=== PATIENT | female | born 1940 | race Caucasian/White ===

== ENCOUNTER 2018-05-29 12:38 | Inpatient (IN) ==
[2018-05-29] MEDS ORDERED: Labetalol HCl Inj 100 MG/20 ML Vial ONE (15:18)
[2018-05-29] MEDS ORDERED: Bisacodyl 10 MG Supp RECTAL PRN (15:36)
--- NOTE | 2018-05-29 15:39 | P.HPCC ---
<D[facility] Palacios - Last Filed: 05/29/18 16:36> History of Present Illness Primary Care Physician: Luna Brown Inpatient Certification: I certify that the inpatient services were ordered in accordance with Medicare regulations governing the order. This includes certification that hospital inpatient services are reasonable and necessary and in the case of services not specified as inpatient-only under 42 CFR 419.22(n), that they are appropriately provided as inpatient services in accordance to with the 2-midnight benchmark under 43 CFR 412.3(e) Medications and Allergies Allergies Allergy/AdvReac Type Severity Reaction Status Date / Time No Known Allergies Allergy Verified 05/29/18 15:32 Home Medications Medication Instructions Recorded Confirmed Type amlodipine 5 mg PO DAILY 05/29/18 05/29/18 History clopidogrel 75 mg PO DAILY 05/29/18 05/29/18 History lisinopril 40 mg PO DAILY 05/29/18 05/29/18 History pravastatin 40 mg PO DAILY 05/29/18 05/29/18 History Active Medications: Active Medications Acetaminophen (Tylenol) 650 mg PO Q6H PRN PRN Reason: PAIN 1-10 AND/OR FEVER >101F Al Hydroxide/Mg Hydroxide (Milk Of Magnesia Liq) 30 ml PO Q12H PRN PRN Reason: Mild Constipation Albuterol (Duoneb Neb (Prn)) 1 ampul NEB Q2HR NEB PRN PRN Reason: WHEEZING Bisacodyl (Dulcolax Supp) 10 mg RECTAL DAILY PRN PRN Reason: SEVERE CONSITIPATION Chlorhexidine Gluconate (Chlorhexidine 2% Cloth) 3 pack TOPICAL DAILY@0400 ALEXIS Stop: 06/04/18 03:59 Chlorhexidine Gluconate (Chlorhexidine 2% Cloth) 3 pack TOPICAL DAILY@0400 PRN PRN Reason: Extra cloth needed Stop: 06/04/18 03:59 Famotidine (Pepcid Pf Inj) 20 mg IV.PUSH Q12HR ALEXIS Sodium Chloride (Ns Inj) 1,000 mls @ 84 mls/hr IV.CONT .[id number] ALEXIS Nicardipine HCl 25 mg/ Sodium (Chloride) 250 mls @ 50 mls/hr IV.CONT TITRATE PRN; Protocol PRN Reason: Per Protocol Lactulose (Lactulose Liq) 30 ml PO DAILY PRN PRN Reason: SEVERE CONSITIPATION Senna/Docusate Sodium (Kate-Colace) 1 tab PO BID [facility] Sennosides (Senokot) 17.2 mg PO Q12H PRN PRN Reason: Moderate Constipation Sodium Chloride (Ns Flush) 2 ml IV.FLUSH PRN PRN PRN Reason: FLUSH AFTER USING IV ACCESS Sodium Chloride (Ns Flush) 2 ml IV.FLUSH BID ALEXIS Results - Imaging Impressions Chest X-Ray 05/29/18 15:37 CONCLUSION: Chronic interstitial changes. No acute abnormality. Exam Vital signs: Intake & Output 05/28/18 05/29/18 05/29/18 18:59 06:59 18:59 Weight 60.5 kg Other: Weight On Admission 60.5 kg Caprini VTE Risk Assessment Caprini Risk Assessment Model: Point Value = 1 Point Value = 2 Point Value = 3 Point Value = 5 Age 41-60 Minor surgery BMI > 25 kg/m2 Swollen legs Varicose veins or History of unexplained or recurrent spontaneous Oral contraceptives or hormone replacement Sepsis (< 1 month) Serious lung disease, including pneumonia (< 1 month) Abnormal pulmonary function Acute myocardial infarction Congestive heart failure (< 1 month) History of inflammatory bowel disease Medical patient at bed rest Age 61-74 Arthroscopic surgery Major open surgery (> 45 min) Laparoscopic surgery (> 45 min) Malignancy Confined to bed (> 72 hours) Immobilizing plaster cast Central venous access Age >= 75 History of VTE Family history of VTE Factor V Leiden Prothrombin [id number] Lupus anticoagulant Anticardiolipin antibodies Elevated serum homocysteine Heparin-induced thrombocytopenia Other congenital or acquired thrombophilia Stroke (< 1 month) Elective arthroplasty Hip, pelvis, or leg fracture Acute spinal cord injury (< 1 month) Prophylaxis Regimen: Total Risk Factor Score Risk Level Prophylaxis Regimen 0-1 Low Early ambulation 2 Moderate Order ONE of the following: *Sequential Compression Device (SCD) *Heparin 5000 units SQ BID 3-4 Higher Order ONE of the following medications: *Heparin 5000 units SQ TID *Enoxaparin/Lovenox 40 mg SQ daily (WT < 150 kg, CrCl > 30 mL/min) *Enoxaparin/Lovenox 30 mg SQ daily (WT < 150 kg, CrCl > 10-29 mL/min) *Enoxaparin/Lovenox 30 mg SQ BID (WT < 150 kg, CrCl > 30 mL/min) AND/OR *Sequential Compression Device (SCD) 5 or more Highest Order ONE of the following medications: *Heparin 5000 units SQ TID (Preferred with Epidurals) *Enoxaparin/Lovenox 40 mg SQ daily (WT < 150 kg, CrCl > 30 mL/min) *Enoxaparin/Lovenox 30 mg SQ daily (WT < 150 kg, CrCl > 10-29 mL/min) *Enoxaparin/Lovenox 30 mg SQ BID (WT < 150 kg, CrCl > 30 mL/min) AND *Sequential Compression Device (SCD) <Jairo Saabsreekanth Eliseo - Last Filed: 05/29/18 18:35> History of Present Illness Service: Critical care Primary Care Physician: Luna Brown Chief Complaint: Altered mental status intracranial bleed History of Present Illness: Patient is a 78-year-old female with past medical history significant for hypertension, peripheral arterial disease, history of vascular intervention/ stenting, arthritis who [facility] mostly nonspecific complaints of memory loss and hallucinations for 1 week and worsening tremors of the right arm. Further workup in the emergency department showed subacute intraventricular hemorrhage into the left lateral ventricle and a focal thrombus that may be obstructing foramina of [place]. There was enlargement of the left lateral ventricle compared to the prior MRI. Also trace blood in the occipital horn of left lateral ventricle. With evidence of intraventricular hemorrhage patient was transferred emergently to [facility] for neurosurgery consult. I evaluated the patient after arrival to the ICU. Patient is profoundly hypertensive systolic blood pressure 190-200. IV labetalol 20 mg IV push given followed by Cardene infusion started. On exam patient did not appear to be in distress. No definite focal deficit however patient is oriented only to person. Reviewed CT scan with neurosurgery Dr. Palacios. On his review CT shows 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 hemorrhagic mass at foramen of Bell with asymmetric left sided ventricular dilatation. Stat MRI of the brain with and without contrast ordered. Started on Cardene infusion with target systolic blood pressure less than 140 - Diagnosis (1) Intraventricular hemorrhage, nontraumatic (2) Hypertensive emergency (3) Metabolic encephalopathy (4) Altered mental status (5) History of peripheral arterial disease (6) History of hypertension (7) Cessation of tobacco use in previous 12 months Inpatient Certification: I certify that the inpatient services were ordered in accordance with Medicare regulations governing the order. This includes certification that hospital inpatient services are reasonable and necessary and in the case of services not specified as inpatient-only under 42 CFR 419.22(n), that they are appropriately provided as inpatient services in accordance to with the 2-midnight benchmark under 43 CFR 412.3(e) Estimated Total Length of Stay (Days): 5 Plans for Post Hospital Care: Not yet determined Review of Systems unobtainable due to mental condition [facility] - Surgical History Surgical History: Surgical History (Last Updated 05/29/18 @ 17:03 by Norah Becerra RN) Stented coronary artery - Tobacco History Smoking Status: Former smoker - Alcohol History How Often Do You Have a Drink Containing Alcohol: 4 or more times a week Medications and Allergies Active Medications: Active Medications Albuterol (Duoneb Neb (Prn)) 1 ampul NEB Q2HR NEB PRN PRN Reason: WHEEZING Bisacodyl (Dulcolax Supp) 10 mg RECTAL DAILY PRN PRN Reason: SEVERE CONSITIPATION Chlorhexidine Gluconate (Chlorhexidine 2% Cloth) 3 pack TOPICAL DAILY@0400 ALEXIS Stop: 06/04/18 03:59 Chlorhexidine Gluconate (Chlorhexidine 2% Cloth) 3 pack TOPICAL DAILY@0400 PRN PRN Reason: Extra cloth needed Stop: 06/04/18 03:59 Famotidine (Pepcid Pf Inj) 20 mg IV.PUSH Q12HR ALEXIS Lactulose (Lactulose Liq) 30 ml PO DAILY PRN PRN Reason: SEVERE CONSITIPATION Exam Vital signs: Intake & Output 05/28/18 05/29/18 05/29/18 18:59 06:59 18:59 Weight 60.5 kg Other: Weight On Admission 60.5 kg Narrative: - Constitutional Lying in bed no acute distress - HEENT Exam Normocephalic, atraumatic. ALEXYS - Neck Exam supple, full ROM, trachea midline - Respiratory Exam CTA bilaterally. No wheezes or crackles - Cardiovascular Exam Severe hypertension currently on Cardene infusion. S1-S2 normal no murmurs - Abdominal Exam Soft, normoactive bowel sounds - Extremities Exam Pulses intact, normal capillary refill - Neurological Exam Patient is alert oriented to person only. Moves all 4 extremities equally follows commands no focal deficits. Gait not tested Septic Shock Reassessment Septic shock perfusion: reassessment completed Caprini VTE Risk Assessment Caprini VTE Risk Assessment: Moderate/High Risk (score >= 2) Caprini Risk Assessment Model: Point Value = 1 Point Value = 2 Point Value = 3 Point Value = 5 Age 41-60 Minor surgery BMI > 25 kg/m2 Swollen legs Varicose veins or History of unexplained or recurrent spontaneous Oral contraceptives or hormone replacement Sepsis (< 1 month) Serious lung disease, including pneumonia (< 1 month) Abnormal pulmonary function Acute myocardial infarction Congestive heart failure (< 1 month) History of inflammatory bowel disease Medical patient at bed rest Age 61-74 Arthroscopic surgery Major open surgery (> 45 min) Laparoscopic surgery (> 45 min) Malignancy Confined to bed (> 72 hours) Immobilizing plaster cast Central venous access Age >= 75 History of VTE Family history of VTE Factor V Leiden Prothrombin [id number] Lupus anticoagulant Anticardiolipin antibodies Elevated serum homocysteine Heparin-induced thrombocytopenia Other congenital or acquired thrombophilia Stroke (< 1 month) Elective arthroplasty Hip, pelvis, or leg fracture Acute spinal cord injury (< 1 month) Prophylaxis Regimen: Total Risk Factor Score Risk Level Prophylaxis Regimen 0-1 Low Early ambulation 2 Moderate Order ONE of the following: *Sequential Compression Device (SCD) *Heparin 5000 units SQ BID 3-4 Higher Order ONE of the following medications: *Heparin 5000 units SQ TID *Enoxaparin/Lovenox 40 mg SQ daily (WT < 150 kg, CrCl > 30 mL/min) *Enoxaparin/Lovenox 30 mg SQ daily (WT < 150 kg, CrCl > 10-29 mL/min) *Enoxaparin/Lovenox 30 mg SQ BID (WT < 150 kg, CrCl > 30 mL/min) AND/OR *Sequential Compression Device (SCD) 5 or more Highest Order ONE of the following medications: *Heparin 5000 units SQ TID (Preferred with Epidurals) *Enoxaparin/Lovenox 40 mg SQ daily (WT < 150 kg, CrCl > 30 mL/min) *Enoxaparin/Lovenox 30 mg SQ daily (WT < 150 kg, CrCl > 10-29 mL/min) *Enoxaparin/Lovenox 30 mg SQ BID (WT < 150 kg, CrCl > 30 mL/min) AND *Sequential Compression Device (SCD) Assessment and Plan - Problem List (1) Intraventricular hemorrhage, nontraumatic Code(s): I61.5 - Nontraumatic intracerebral hemorrhage, intraventricular Status: Acute (2) Hypertensive emergency Code(s): I16.1 - Hypertensive emergency Status: Acute (3) Metabolic encephalopathy Code(s): G93.41 - Metabolic encephalopathy Status: Acute (4) Altered mental status Code(s): R41.82 - Altered mental status, unspecified Status: Acute (5) History of peripheral arterial disease Code(s): Z86.79 - Personal history of other diseases of the circulatory system Status: Chronic (6) History of hypertension Code(s): Z86.79 - Personal history of other diseases of the circulatory system Status: Chronic (7) Cessation of tobacco use in previous 12 months Code(s): Z87.891 - Personal history of nicotine dependence Status: Chronic - Assessment and Plan Plan: NEURO: Intraventricular hemorrhage vs. hemorrhagic mass at foramen of Bell with asymmetric left sided ventricular dilatation Acute encephalopathy, likely metabolic -Monitor neuro status closely -Dr. Palacios does not plan any neurosurgical intervention at this time -MRI of the brain with and without contrast -Tight blood pressure control with Cardene and IV labetalol as needed -Keep systolic blood pressure less than 150 -Supplement multivitamin thiamine given daily alcohol use -Watch closely for alcohol withdrawal RESP: Previous tobacco use -DuoNeb every 6 hours scheduled and as needed -SBT when appropriate CV: Hypertensive emergency History of hypertension Peripheral arterial disease -Normal saline IV fluids 84 mL/h -Cardene infusion and, IV labetalol as needed for systolic blood pressure less than 150 -Continue home enalapril and amlodipine, continue statin -Hold Plavix GI: -N.p.o. except meds, swallow eval, IV famotidine : -Monitor renal function closely. ID: -No indication for antibiotics at this time HEME: -Monitor CBC, coags ENDO: -Electrolyte replacement per protocol PROPH: -Bilateral lower extremity SCDs. Avoid chemical DVT prophylaxis until cleared by neurosurgery/famotidine LINES: -Utilize peripheral IVs, central line if needed CC time 38 min Code Status: Full Discussed Condition With: Dr. Palacios
--- NOTE | 2018-05-29 15:40 | P.CONNS ---
History of Present Illness Consult date: 05/29/18 Requesting Physician: Dulce Saab Reason for Consult: [facility] Primary Care Provider: Luna Brown Chief Complaint: altered mental status, [facility] History of Present Illness: I was asked by Dr. Saab to see and evaluate this pleasant 78 yo female who presented to OSH with a 1 week history of feeling not quite right Per , she developed a right sided tremor a month ago and has been havingdifficulty walking with a report of "dragging" her right leg. In addition , he is concerned that her speech has worseed and her memory has become faultie over the past week. Review of Systems All other systems reviewed negative except as stated in HPI Medications and Allergies Allergies Allergy/AdvReac Type Severity Reaction Status Date / Time No Known Allergies Allergy Verified 05/29/18 15:32 Exam Vital signs: Intake & Output 05/28/18 05/29/18 05/29/18 18:59 06:59 18:59 Weight 60.5 kg Other: Weight On Admission 60.5 kg - Constitutional no acute distress, average body habitus, cooperative - Routine HEENT Exam Head: Present: normocephalic, atraumatic Eye: Present: EOMI, PERRL ENT: Present: mucous membranes moist, oropharynx clear, nares patent, external ear normal, TM's clear bilaterally - Routine Neck Exam Present: supple, full ROM, trachea midline - Routine Respiratory Exam Present: CTA bilaterally - Routine Cardiovascular Exam Present: RRR - Routine Abdominal Exam Present: soft, normoactive bowel sounds - Routine Extremities Exam Present: full ROM, pulses intact, normal capillary refill Comments: Moderate involvement of arthritis in her hands/digits - Routine Skin Exam Present: intact, warm, normal turgor - Routine Neurological Exam MS: AAOx1-2 Speech : slow CNII-XII: intact Motor: 5/5, R=L, neg. drift Sensory: +LT,+PP Cerebellum: WNL DTR's 2+ bilateral and symmetric Gait: Not tested - Detailed Neurological Exam: Coma Scale Eye Opening: Spontaneous Verbal Response: Confused Motor Response: Obey commands Sofy Coma Scale Total: 14 - Routine Psychiatric Exam Present: normal affect, normal thought process, cooperative, good insight Results - Diagnostic Findings EKG: report reviewed, image reviewed Chest x-ray: report reviewed, image reviewed Abdominal x-ray: report reviewed, image reviewed CT scan - abdomen: report reviewed, image reviewed CT scan - chest: report reviewed, image reviewed CT scan - pelvic: report reviewed, image reviewed US - abdomen: report reviewed, image reviewed US - kidney: report reviewed, image reviewed US - pelvic: report reviewed, image reviewed Assessment and Plan - Plan 78 yo female with vague constellation of symptoms GCS-[address] shows 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 hemorrhagic mass Will follow with you
--- NOTE | 2018-05-29 16:28 | XR ---
EXAM DATE: 05/29/2018 4:25 PM EST AGE/SEX: 78 years / Female INDICATIONS: Shortness of breath. CLINICAL DATA: This is the patient's initial encounter. Patient reports that signs and symptoms have been present for 1 day and indicates a pain score of 0/10. MEDICAL/SURGICAL HISTORY: None. Breast augmentation. COMPARISON: No prior exams available for comparison. FINDINGS: The examination demonstrates the heart to be normal in size. There are chronic appearing interstitial changes within the pulmonary parenchyma. The lungs are otherwise clear. The visualized bony structur es are intact. Incidental note is made of bilateral calcified implant capsules. Visualized bony struc tures are intact. CONCLUSION: Chronic interstitial changes. No acute abnormality. Electronically signed by: Adam Monterroso MD Board Certified Radiologist 05/29/2018 4:27 PM EST
[2018-05-29] MEDS: niCARdipine Inj 25 MG in Sodium Chlor 0.9% Inj 240 ML IV.CONT PRN ×2 (16:45→20:22)
[2018-05-29] MEDS: Sod Chloride 0.9% Inj 1,000 ML IV.CONT SCH (16:45)
[2018-05-29] MEDS ORDERED: Potassium Chlor 40 mEq Premix 40 MEQ/100 ML PIGGYBACK IV.SIG PRN ×2 (16:53)
[2018-05-29] MEDS ORDERED: Magnesium Sulfate Inj 2 GM in Sodium Chlor 0.9% Inj 96 ML IV.SIG PRN (16:53)
[2018-05-29] MEDS ORDERED: Potassium Phosphate Inj 30 MMOL in Sodium Chlor 0.9% Inj 250 ML IV.SIG PRN (16:53)
[2018-05-29] MEDS ORDERED: Magnesium Oxide 400 MG Tablet PO PRN (16:53)
[2018-05-29] MEDS ORDERED: Sodium Phosphate Inj 30 MMOL in Sodium Chlor 0.9% Inj 250 ML IV.SIG PRN (16:53)
[2018-05-29] MEDS ORDERED: Magnesium Sulfate Inj 4 GM in Sodium Chlor 0.9% Inj 92 ML IV.SIG PRN (16:53)
[2018-05-29] MEDS ORDERED: Potassium Chloride Liq 20 MEQ/15 ML UDC PO PRN ×2 (16:53)
[2018-05-29] MEDS ORDERED: Potassium Phosphate 500 MG Soluble Tablet PO PRN (16:53)
[2018-05-29] MEDS ORDERED: Gadobutrol PF 7.5 MMOL/7.5 ML Vial (for RAD) IV.SIG ONE (17:36)
--- NOTE | 2018-05-29 18:07 | MR ---
EXAM DATE: 05/29/2018 5:38 PM EST AGE/SEX: 78 years / Female INDICATIONS: Hemorrhage. CLINICAL DATA: This is the patient's initial encounter. Patient reports that signs and symptoms have been present for 1 day and indicates a pain score of 0/10. MEDICAL/SURGICAL HISTORY: Hypertension. None. COMPARISON: OUT, CT HEAD W/O CONTRAST, 05/29/2018. . TECHNIQUE: Multiplanar, multisequence examination of the brain was performed without and with 6 ml Ga davist (gadobutrol) contrast as a single exam dose. FINDINGS: Cerebrum: There is a mass in the body of the left lateral ventricle measuring 2.3 x 1.7 cm which is s omewhat heterogeneous in appearance. No definite enhancement. There is hemorrhage in this mass. There is also some minimal layering hemorrhage within the posterior horns of both lateral ventricles sligh tly greater on the left. The left ventricle is dilated with some bulging of the ventricle across midl ine. There is also a low T1 signal mass adjacent to the brainstem on the left in the cerebellopontine angle measuring 1.8 x 1.4 cm. There is mass effect with compression upon the brainstem. No evidence of acute infarction. No extraaxial fluid collections are seen. The pituitary gland and suprasellar cistern are normal in configuration. White Matter: Scattered T2 signal abnormalities are seen in the white matter. Posterior Fossa: The cerebellum and brainstem are intact. The 4th ventricle is midline. The cereb ellar tonsils are normal in position. Diffusion Imaging: No focal areas of restricted diffusion are seen. No evidence of acute infarction . Extracranial: The visualized portions of the orbits and paranasal sinuses are unremarkable. Post Contrast: No abnormal areas of parenchymal or dural enhancement. No evidence of blood-brain ba rrier breakdown. CONCLUSION: 1. There is a 2.3 x 1.7 cm mass within the body of the left lateral ventricle measuring 2.3 x 1.7 cm . The left lateral ventricle is prominent may be related to production of CSF from this mass. 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 This mass may have hemo rrhaged causing the blood layering in the lateral ventricles. 2. There is also a mass in the cerebellopontine angle on the left compressing upon the brainstem camelia suring 1.8 x 1.4 cm. 3. Chronic ischemic small vessel vasculopathy. Electronically signed by: Brock Pineda MD Board Certified Radiologist 05/29/2018 6:06 PM EST
[2018-05-29] MEDS: Multivitamin Inj 10 ML, Thiamine Inj 100 MG, Folic Acid Inj 1 MG in Sodium Chlor 0.9% I... IV.SIG SCH (18:24)
[2018-05-29] MEDS ORDERED: Labetalol HCl Inj 100 MG/20 ML Vial IV.PUSH ONE (18:30)
[2018-05-29] MEDS: Lisinopril 20 MG Tablet PO SCH (18:31)
[2018-05-29] MEDS: amLODIPine 5 MG Tablet PO SCH (18:31)
[2018-05-29] MEDS: Famotidine PF Inj 20 MG/2 ML Vial IV.PUSH SCH (20:21)
[2018-05-29] MEDS: Senna/Docusate Sodium 8.6/50 MG Tablet PO SCH (20:21)
[2018-05-30] MEDS ORDERED: Chlorhexidine Gluconate 2% 1 Pack (2 Cloths) TOPICAL PRN (04:00)
[2018-05-30] MEDS: Chlorhexidine Gluconate 2% 1 Pack (2 Cloths) TOPICAL SCH (05:14)
[2018-05-30 05:49] LABS: Alkaline Phosphatase 93 U/L (45-117); Total Protein 7.7 g/dL (6.4-8.2)
[2018-05-30 05:52] LABS: Alanine Aminotransferase 20 U/L (10-53); Albumin 3.6 g/dL (3.4-5.0); Anion Gap 10 meq/L (5-15); Aspartate Aminotransferase 30 U/L (15-37); Blood Urea Nitrogen 8 mg/dL (7-18); Carbon Dioxide 25.4 meq/L (21.0-32.0); Chloride 105 meq/L (98-107); Glomerular Filtration Rate Greater Than 89 mL/min (>89); Glucose,Random 97 mg/dL (74-106); Magnesium 2.1 mg/dL (1.5-2.5); Potassium 3.9 meq/L (3.5-5.1); Sodium 140 meq/L (136-145)
[2018-05-30] MEDS: Sod Chloride 0.9% Inj 1,000 ML IV.CONT SCH ×3 (08:48→15:56)
[2018-05-30] MEDS: Famotidine PF Inj 20 MG/2 ML Vial IV.PUSH SCH ×2 (09:14→21:15)
[2018-05-30] MEDS: Lisinopril 20 MG Tablet PO SCH (09:14)
[2018-05-30] MEDS: amLODIPine 5 MG Tablet PO SCH (09:14)
[2018-05-30] MEDS: Senna/Docusate Sodium 8.6/50 MG Tablet PO SCH ×2 (09:14→21:16)
[2018-05-30 09:36] LABS: Baso % (Auto) 0.3 % (0.0-2.0); Eos # (Auto) 0.1 th/mm3 (0.0-0.4); Eos % (Auto) 0.6 % (0.0-4.0); Hematocrit 43.4 % (35.0-46.0); Hemoglobin 14.4 gm/dL (11.6-15.3); Lymph # (Auto) 0.8 th/mm3 (1.0-4.8); Lymph % (Auto) 6.6 % (9.0-44.0); Mean Corpuscular HGB Conc 33.3 % (32.0-36.0); Mean Corpuscular Hemoglobin 34.1 pg (27.0-34.0); Mean Corpuscular Volume 102.3 fL (80.0-100.0); Mono # (Auto) 0.6 th/mm3 (0.0-0.9); Mono % (Auto) 4.8 % (0.0-8.0); Neut # (Auto) 10.8 th/mm3 (1.8-7.7); Neut % (Auto) 87.7 % (16.0-70.0); Red Blood Count 4.24 mil/mm3 (4.00-5.30); Red Cell Distribution Width 14.3 % (11.6-17.2)
[2018-05-30 09:59] LABS: White Blood Count 11.9 th/mm3 (4.0-11.0)
[2018-05-30 10:00] LABS: Mean Platelet Volume 7.1 fL (7.0-11.0); Platelet Count 252 th/mm3 (150-450)
[2018-05-30 10:03] LABS: Lymphocytes 8 % (9-44); Monocytes 5 % (0-8); Platelet Estimate Normal (Normal); Platelet Morphology Clumped (Normal)
--- NOTE | 2018-05-30 12:58 | P.PNNS ---
Subjective Interval history: no neuro changes overnight <Samanta Banda - Last Filed: 05/30/18 13:04> Physical Exam Vital signs: Vital Signs 05/29/18 15:05 05/29/18 15:10 05/29/18 15:21 Temperature Pulse Rate 96 H 77 Respiratory Rate 25 H 24 Blood Pressure 193/82 H 132/60 Pulse Oximetry 96 92 L 90 L 05/29/18 15:37 05/29/18 15:56 05/29/18 16:00 Temperature Pulse Rate 65 69 68 Respiratory Rate 28 H 31 H 34 H Blood Pressure 137/66 169/65 H Pulse Oximetry 97 98 98 05/29/18 16:11 05/29/18 16:26 05/29/18 16:35 Temperature Pulse Rate 66 65 64 Respiratory Rate 33 H 28 H 23 Blood Pressure 171/71 H 174/71 H 142/64 H Pulse Oximetry 100 100 100 05/29/18 16:41 05/29/18 16:56 05/29/18 17:00 Temperature Pulse Rate 65 78 68 Respiratory Rate 27 H 30 H 24 Blood Pressure 140/65 141/66 H Pulse Oximetry 100 97 98 05/29/18 17:11 05/29/18 17:47 05/29/18 17:54 Temperature Pulse Rate 73 82 87 Respiratory Rate 35 H 15 Blood Pressure 155/63 H 151/66 H Pulse Oximetry 96 05/29/18 17:55 05/29/18 18:00 05/29/18 18:15 Temperature Pulse Rate 84 81 85 Respiratory Rate 41 H 29 H 42 H Blood Pressure 146/67 H 133/61 141/55 H Pulse Oximetry 05/29/18 18:30 05/29/18 18:45 05/29/18 19:00 Temperature Pulse Rate 80 75 62 Respiratory Rate 36 H 44 H 45 H Blood Pressure 129/61 139/63 151/67 H Pulse Oximetry 97 96 96 05/29/18 19:15 05/29/18 19:30 05/29/18 19:45 Temperature Pulse Rate 85 95 H 98 H Respiratory Rate 34 H 38 H 40 H Blood Pressure 154/67 H 164/72 H 150/68 H Pulse Oximetry 96 95 96 05/29/18 20:00 05/29/18 20:15 05/29/18 20:30 Temperature 97.5 F L Pulse Rate 96 H 94 H 87 Respiratory Rate 30 H 41 H 32 H Blood Pressure 162/70 H 116/78 130/62 Pulse Oximetry 94 L 95 95 05/29/18 20:45 05/29/18 21:00 05/29/18 21:15 Temperature Pulse Rate 71 85 73 Respiratory Rate 22 29 H 22 Blood Pressure 111/55 L 133/61 144/64 H Pulse Oximetry 96 94 L 93 L 05/29/18 21:30 05/29/18 21:45 05/29/18 22:00 Temperature Pulse Rate 75 67 71 Respiratory Rate 32 H 21 23 Blood Pressure 121/58 L 126/56 L 122/58 L Pulse Oximetry 92 L 94 L 92 L 05/29/18 22:15 05/29/18 22:30 05/29/18 22:45 Temperature Pulse Rate 74 83 74 Respiratory Rate 24 50 H 23 Blood Pressure 119/58 L 148/68 H 150/66 H Pulse Oximetry 94 L 95 94 L 05/29/18 23:00 05/29/18 23:15 05/29/18 23:30 Temperature Pulse Rate 60 70 85 Respiratory Rate 23 29 H 39 H Blood Pressure 128/60 128/60 120/60 Pulse Oximetry 95 94 L 95 05/29/18 23:45 05/30/18 00:00 05/30/18 00:15 Temperature 97.6 F Pulse Rate 64 68 63 Respiratory Rate 23 23 23 Blood Pressure 128/60 127/61 128/60 Pulse Oximetry 95 94 L 94 L 05/30/18 00:30 05/30/18 00:45 05/30/18 01:00 Temperature Pulse Rate 80 60 82 Respiratory Rate 33 H 30 H 38 H Blood Pressure 149/68 H 125/58 L 153/67 H Pulse Oximetry 94 L 93 L 94 L 05/30/18 01:15 05/30/18 01:30 05/30/18 01:46 Temperature Pulse Rate 66 81 84 Respiratory Rate 22 40 H 37 H Blood Pressure 129/60 148/67 H 146/67 H Pulse Oximetry 94 L 95 95 05/30/18 02:00 05/30/18 02:15 05/30/18 02:33 Temperature Pulse Rate 73 69 81 Respiratory Rate 27 H 28 H 43 H Blood Pressure 144/61 H 145/65 H 150/67 H Pulse Oximetry 97 98 99 05/30/18 02:45 05/30/18 03:00 05/30/18 03:15 Temperature Pulse Rate 56 L 61 62 Respiratory Rate 22 32 H 27 H Blood Pressure 141/66 H 141/63 H 127/55 L Pulse Oximetry 98 100 100 05/30/18 03:30 05/30/18 03:45 05/30/18 04:00 Temperature 97.8 F Pulse Rate 80 66 55 L Respiratory Rate 33 H 27 H 34 H Blood Pressure 172/72 H 154/68 H 149/66 H Pulse Oximetry 99 99 100 05/30/18 04:15 05/30/18 04:30 05/30/18 04:45 Temperature Pulse Rate 68 66 66 Respiratory Rate 39 H 28 H 33 H Blood Pressure 144/67 H 159/61 H 180/73 H Pulse Oximetry 99 99 100 05/30/18 04:46 05/30/18 04:50 05/30/18 05:00 Temperature Pulse Rate 75 76 62 Respiratory Rate 43 H 39 H 40 H Blood Pressure 188/71 H 164/70 H 130/59 L Pulse Oximetry 100 97 94 L 05/30/18 05:15 05/30/18 05:30 05/30/18 05:45 Temperature Pulse Rate 82 87 67 Respiratory Rate 24 30 H 39 H Blood Pressure 136/62 136/65 117/59 L Pulse Oximetry 93 L 91 L 96 05/30/18 06:00 05/30/18 06:15 05/30/18 06:30 Temperature Pulse Rate 57 L 102 H 83 Respiratory Rate 22 24 25 H Blood Pressure 120/59 L 167/91 H 167/85 H Pulse Oximetry 99 97 93 L 05/30/18 06:45 05/30/18 07:00 05/30/18 07:15 Temperature Pulse Rate 83 78 76 Respiratory Rate 20 20 18 Blood Pressure 138/60 139/63 133/62 Pulse Oximetry 94 L 95 95 05/30/18 07:30 05/30/18 07:45 05/30/18 08:00 Temperature 97.7 F Pulse Rate 68 65 71 Respiratory Rate 24 24 20 Blood Pressure 132/63 149/64 H 134/63 Pulse Oximetry 95 96 96 05/30/18 08:15 05/30/18 08:30 05/30/18 08:45 Temperature Pulse Rate 75 76 69 Respiratory Rate 20 25 H 24 Blood Pressure 130/60 146/65 H 132/63 Pulse Oximetry 97 96 95 05/30/18 09:00 05/30/18 09:15 05/30/18 09:30 Temperature Pulse Rate 77 74 74 Respiratory Rate 28 H 31 H 22 Blood Pressure 157/67 H 149/68 H 149/69 H Pulse Oximetry 95 97 96 05/30/18 09:43 05/30/18 10:00 05/30/18 10:01 Temperature Pulse Rate 76 81 91 H Respiratory Rate 24 26 H 25 H Blood Pressure 161/72 H 183/77 H 174/75 H Pulse Oximetry 96 96 97 05/30/18 10:15 05/30/18 10:30 Temperature Pulse Rate 103 H 101 H Respiratory Rate 30 H 32 H Blood Pressure 170/93 H 141/65 H Pulse Oximetry 95 94 L Intake & Output 05/29/18 05/30/18 05/30/18 18:59 06:59 18:59 Intake Total 1761.2 / 1761.2 Output Total 601 / 601 1900 / 1900 Balance -601 / -601 -138.8 / -138.8 Weight 60.5 kg 55.9 kg Intake: IV 1761.2 / 1761.2 NS Inj 1,000 ML @ 84 mls/hr IV. 1000 / 1000 CONT .[id number] [facility] Rx#:[id number] Cardene Inj 25 MG In NS Inj 240 250 / 250 ML @ 5 MG/HR 50 mls/hr IV.CONT TITRATE PRN Rx#:[id number] MVI-12 Inj 10 ML Thiamine Inj 511.2 / 511.2 100 MG Folvite Inj 1 MG In NS Inj 500 ML @ 125 mls/hr IV.SIG Q24H [facility] Rx#:[id number] Output: Urine 600 / 600 1900 / 1900 Stool Other: Date of Last Bowel Movement 05/30/18 05/30/18 # Bowel Movements 1 # Incontinent Bowel Movements 1 Weight On Admission 60.5 kg Narrative: MS: AAO to name, place, not to year or current president. Speech is slow Follows commands. CN II-XII: intact Motor: 5/5 Sensory intact to light touch x 4 Right hand resting tremor <Samanta Banda - Last Filed: 05/30/18 13:04> Vital signs: Vital Signs 05/29/18 17:47 05/29/18 17:54 05/29/18 17:55 Temperature Pulse Rate 82 87 84 Respiratory Rate 15 41 H Blood Pressure 151/66 H 146/67 H Pulse Oximetry 05/29/18 18:00 05/29/18 18:15 05/29/18 18:30 Temperature Pulse Rate 81 85 80 Respiratory Rate 29 H 42 H 36 H Blood Pressure 133/61 141/55 H 129/61 Pulse Oximetry 97 05/29/18 18:45 05/29/18 19:00 05/29/18 19:15 Temperature Pulse Rate 75 62 85 Respiratory Rate 44 H 45 H 34 H Blood Pressure 139/63 151/67 H 154/67 H Pulse Oximetry 96 96 96 05/29/18 19:30 05/29/18 19:45 05/29/18 20:00 Temperature 97.5 F L Pulse Rate 95 H 98 H 96 H Respiratory Rate 38 H 40 H 30 H Blood Pressure 164/72 H 150/68 H 162/70 H Pulse Oximetry 95 96 94 L 05/29/18 20:15 05/29/18 20:30 05/29/18 20:45 Temperature Pulse Rate 94 H 87 71 Respiratory Rate 41 H 32 H 22 Blood Pressure 116/78 130/62 111/55 L Pulse Oximetry 95 95 96 05/29/18 21:00 05/29/18 21:15 05/29/18 21:30 Temperature Pulse Rate 85 73 75 Respiratory Rate 29 H 22 32 H Blood Pressure 133/61 144/64 H 121/58 L Pulse Oximetry 94 L 93 L 92 L 05/29/18 21:45 05/29/18 22:00 05/29/18 22:15 Temperature Pulse Rate 67 71 74 Respiratory Rate 21 23 24 Blood Pressure 126/56 L 122/58 L 119/58 L Pulse Oximetry 94 L 92 L 94 L 05/29/18 22:30 05/29/18 22:45 05/29/18 23:00 Temperature Pulse Rate 83 74 60 Respiratory Rate 50 H 23 23 Blood Pressure 148/68 H 150/66 H 128/60 Pulse Oximetry 95 94 L 95 05/29/18 23:15 05/29/18 23:30 05/29/18 23:45 Temperature Pulse Rate 70 85 64 Respiratory Rate 29 H 39 H 23 Blood Pressure 128/60 120/60 128/60 Pulse Oximetry 94 L 95 95 01/16/19 00:00 05/30/18 00:15 05/30/18 00:30 Temperature 97.6 F Pulse Rate 68 63 80 Respiratory Rate 23 23 33 H Blood Pressure 127/61 128/60 149/68 H Pulse Oximetry 94 L 94 L 94 L 05/30/18 00:45 05/30/18 01:00 05/30/18 01:15 Temperature Pulse Rate 60 82 66 Respiratory Rate 30 H 38 H 22 Blood Pressure 125/58 L 153/67 H 129/60 Pulse Oximetry 93 L 94 L 94 L 05/30/18 01:30 05/30/18 01:46 05/30/18 02:00 Temperature Pulse Rate 81 84 73 Respiratory Rate 40 H 37 H 27 H Blood Pressure 148/67 H 146/67 H 144/61 H Pulse Oximetry 95 95 97 05/30/18 02:15 05/30/18 02:33 05/30/18 02:45 Temperature Pulse Rate 69 81 56 L Respiratory Rate 28 H 43 H 22 Blood Pressure 145/65 H 150/67 H 141/66 H Pulse Oximetry 98 99 98 05/30/18 03:00 05/30/18 03:15 05/30/18 03:30 Temperature Pulse Rate 61 62 80 Respiratory Rate 32 H 27 H 33 H Blood Pressure 141/63 H 127/55 L 172/72 H Pulse Oximetry 100 100 99 05/30/18 03:45 05/30/18 04:00 05/30/18 04:15 Temperature 97.8 F Pulse Rate 66 55 L 68 Respiratory Rate 27 H 34 H 39 H Blood Pressure 154/68 H 149/66 H 144/67 H Pulse Oximetry 99 100 99 05/30/18 04:30 05/30/18 04:45 05/30/18 04:46 Temperature Pulse Rate 66 66 75 Respiratory Rate 28 H 33 H 43 H Blood Pressure 159/61 H 180/73 H 188/71 H Pulse Oximetry 99 100 100 05/30/18 04:50 05/30/18 05:00 05/30/18 05:15 Temperature Pulse Rate 76 62 82 Respiratory Rate 39 H 40 H 24 Blood Pressure 164/70 H 130/59 L 136/62 Pulse Oximetry 97 94 L 93 L 05/30/18 05:30 05/30/18 05:45 05/30/18 06:00 Temperature Pulse Rate 87 67 57 L Respiratory Rate 30 H 39 H 22 Blood Pressure 136/65 117/59 L 120/59 L Pulse Oximetry 91 L 96 99 05/30/18 06:15 05/30/18 06:30 05/30/18 06:45 Temperature Pulse Rate 102 H 83 83 Respiratory Rate 24 25 H 20 Blood Pressure 167/91 H 167/85 H 138/60 Pulse Oximetry 97 93 L 94 L 05/30/18 07:00 05/30/18 07:15 05/30/18 07:30 Temperature Pulse Rate 78 76 68 Respiratory Rate 20 18 24 Blood Pressure 139/63 133/62 132/63 Pulse Oximetry 95 95 95 05/30/18 07:45 05/30/18 08:00 05/30/18 08:15 Temperature 97.7 F Pulse Rate 65 71 75 Respiratory Rate 24 20 20 Blood Pressure 149/64 H 134/63 130/60 Pulse Oximetry 96 96 97 05/30/18 08:30 05/30/18 08:45 05/30/18 09:00 Temperature Pulse Rate 76 69 77 Respiratory Rate 25 H 24 28 H Blood Pressure 146/65 H 132/63 157/67 H Pulse Oximetry 96 95 95 05/30/18 09:15 05/30/18 09:30 05/30/18 09:43 Temperature Pulse Rate 74 74 76 Respiratory Rate 31 H 22 24 Blood Pressure 149/68 H 149/69 H 161/72 H Pulse Oximetry 97 96 96 05/30/18 10:00 05/30/18 10:01 05/30/18 10:15 Temperature Pulse Rate 81 91 H 103 H Respiratory Rate 26 H 25 H 30 H Blood Pressure 183/77 H 174/75 H 170/93 H Pulse Oximetry 96 97 95 05/30/18 10:30 05/30/18 10:45 05/30/18 11:00 Temperature Pulse Rate 101 H 87 88 Respiratory Rate 32 H 33 H 27 H Blood Pressure 141/65 H 152/65 H 138/64 Pulse Oximetry 94 L 94 L 94 L 05/30/18 11:15 05/30/18 11:30 05/30/18 11:59 Temperature Pulse Rate 82 65 93 H Respiratory Rate 27 H 31 H 44 H Blood Pressure 158/69 H 123/58 L 134/62 Pulse Oximetry 95 95 92 L 05/30/18 12:00 05/30/18 12:15 05/30/18 12:30 Temperature Pulse Rate 86 106 H 94 H Respiratory Rate 38 H 43 H 36 H Blood Pressure 132/62 147/66 H 141/60 H Pulse Oximetry 92 L 93 L 93 L 05/30/18 12:45 05/30/18 13:00 05/30/18 13:15 Temperature Pulse Rate 120 H 89 92 H Respiratory Rate 44 H 45 H 45 H Blood Pressure 137/61 128/79 160/69 H Pulse Oximetry 92 L 93 L 93 L 05/30/18 13:30 05/30/18 13:45 05/30/18 14:00 Temperature Pulse Rate 94 H 100 H 104 H Respiratory Rate 38 H 44 H 42 H Blood Pressure 133/60 155/63 H 167/72 H Pulse Oximetry 93 L 93 L 94 L 05/30/18 14:09 05/30/18 14:15 05/30/18 14:30 Temperature Pulse Rate 101 H 106 H 89 Respiratory Rate 37 H 51 H 28 H Blood Pressure 145/65 H 169/81 H 143/109 H Pulse Oximetry 93 L 94 L 93 L 05/30/18 14:39 05/30/18 14:45 05/30/18 15:00 Temperature Pulse Rate 74 80 100 H Respiratory Rate 17 26 H 42 H Blood Pressure 141/64 H 142/86 H 150/71 H Pulse Oximetry 93 L 94 L 94 L 05/30/18 15:15 05/30/18 15:27 05/30/18 15:30 Temperature Pulse Rate 69 80 89 Respiratory Rate 40 H 36 H 51 H Blood Pressure 191/88 H 158/80 H 176/95 H Pulse Oximetry 93 L 93 L 94 L 05/30/18 15:45 05/30/18 15:46 05/30/18 15:49 Temperature Pulse Rate 101 H 106 H Respiratory Rate 46 H 48 H 58 H Blood Pressure 205/99 H 205/108 H 197/116 H Pulse Oximetry 94 L 94 L 95 05/30/18 15:52 05/30/18 15:56 05/30/18 15:57 Temperature Pulse Rate 104 H Respiratory Rate 38 H 45 H 40 H Blood Pressure 192/89 H 219/95 H 207/95 H Pulse Oximetry 94 L 92 L 93 L 05/30/18 16:00 05/30/18 16:05 Temperature Pulse Rate 104 H 138 H Respiratory Rate 49 H 56 H Blood Pressure 159/73 H Pulse Oximetry 93 L Intake & Output 05/29/18 05/30/18 05/30/18 18:59 06:59 18:59 Intake Total 1761.2 / 1761.2 500 / 500 Output Total 601 / 601 1900 / 1900 Balance -601 / -601 -138.8 / -138.8 500 / 500 Weight 60.5 kg 55.9 kg Intake: IV 1761.2 / 1761.2 500 / 500 NS Inj 1,000 ML @ 84 mls/hr IV. 1000 / 1000 CONT .[id number] [facility] Rx#:[id number] Cardene Inj 25 MG In NS Inj 240 250 / 250 500 / 500 ML @ 5 MG/HR 50 mls/hr IV.CONT TITRATE PRN Rx#:[id number] MVI-12 Inj 10 ML Thiamine Inj 511.2 / 511.2 100 MG Folvite Inj 1 MG In NS Inj 500 ML @ 125 mls/hr IV.SIG Q24H [facility] Rx#:[id number] Output: Urine 600 / 600 1900 / 1900 Stool Other: Date of Last Bowel Movement 05/30/18 05/30/18 # Bowel Movements 1 # Incontinent Bowel Movements 1 Weight On Admission 60.5 kg <Duke Palacios - Last Filed: 05/30/18 17:36> Assessment and Plan - Plan 78 yo female with vague constellation of symptoms GCS-[address] shows 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 hemorrhagic mass Will follow with you 05/30/18: cont neuro checks in ICU Dr. Palacios to discuss with on the phone, further recommendations to follow cont to hold Plavix will follow <aSmanta Banda - Last Filed: 05/30/18 13:04> - Plan 78 yo female with hemorrhagic intraventricular mass and altered mental status with early hydrocephalus and probable forniceal compression Will need endoscopic decompression CTA for surgical planning I have personally seen and examined the patient reviewed all pertinent labs and imaging studies with Ms. Banda ( Neurosurgery PA). I agree with her assessment as well as plan of care. <Duke Palacios - Last Filed: 05/30/18 17:36>
--- NOTE | 2018-05-30 13:17 | P.PNCC ---
Subjective Subjective Remarks/Hospital Course: Patient is a 78-year-old female with past medical history significant for hypertension, peripheral arterial disease, history of vascular intervention/ stenting, arthritis who presented to the [facility] with mostly nonspecific complaints of memory loss and hallucinations for 1 week and worsening tremors of the right arm. Further workup in the emergency department showed subacute intraventricular hemorrhage into the left lateral ventricle and a focal thrombus that may be obstructing foramina of [place]. There was enlargement of the left lateral ventricle compared to the prior MRI. Also trace blood in the occipital horn of left lateral ventricle. With evidence of intraventricular hemorrhage patient was transferred emergently to [facility] for neurosurgery consult. I evaluated the patient after arrival to the ICU. Patient is profoundly hypertensive systolic blood pressure 190-200. IV labetalol 20 mg IV push given followed by Cardene infusion started. On exam patient did not appear to be in distress. No definite focal deficit however patient is oriented only to person. Reviewed CT scan with neurosurgery Dr. Palacios. On his review CT shows 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 hemorrhagic mass at foramen of Bell with asymmetric left sided ventricular dilatation. Stat MRI of the brain with and without contrast ordered. Started on Cardene infusion with target systolic blood pressure less than 140 SUBJ 05/30/18 Objective Vital Signs / I&O: Vital Signs 05/29/18 15:05 05/29/18 15:10 05/29/18 15:21 Temperature Pulse Rate 96 H 77 Respiratory Rate 25 H 24 Blood Pressure 193/82 H 132/60 Pulse Oximetry 96 92 L 90 L 05/29/18 15:37 05/29/18 15:56 05/29/18 16:00 Temperature Pulse Rate 65 69 68 Respiratory Rate 28 H 31 H 34 H Blood Pressure 137/66 169/65 H Pulse Oximetry 97 98 98 05/29/18 16:11 05/29/18 16:26 05/29/18 16:35 Temperature Pulse Rate 66 65 64 Respiratory Rate 33 H 28 H 23 Blood Pressure 171/71 H 174/71 H 142/64 H Pulse Oximetry 100 100 100 05/29/18 16:41 05/29/18 16:56 05/29/18 17:00 Temperature Pulse Rate 65 78 68 Respiratory Rate 27 H 30 H 24 Blood Pressure 140/65 141/66 H Pulse Oximetry 100 97 98 05/29/18 17:11 05/29/18 17:47 05/29/18 17:54 Temperature Pulse Rate 73 82 87 Respiratory Rate 35 H 15 Blood Pressure 155/63 H 151/66 H Pulse Oximetry 96 05/29/18 17:55 05/29/18 18:00 05/29/18 18:15 Temperature Pulse Rate 84 81 85 Respiratory Rate 41 H 29 H 42 H Blood Pressure 146/67 H 133/61 141/55 H Pulse Oximetry 05/29/18 18:30 05/29/18 18:45 05/29/18 19:00 Temperature Pulse Rate 80 75 62 Respiratory Rate 36 H 44 H 45 H Blood Pressure 129/61 139/63 151/67 H Pulse Oximetry 97 96 96 05/29/18 19:15 05/29/18 19:30 05/29/18 19:45 Temperature Pulse Rate 85 95 H 98 H Respiratory Rate 34 H 38 H 40 H Blood Pressure 154/67 H 164/72 H 150/68 H Pulse Oximetry 96 95 96 05/29/18 20:00 05/29/18 20:15 05/29/18 20:30 Temperature 97.5 F L Pulse Rate 96 H 94 H 87 Respiratory Rate 30 H 41 H 32 H Blood Pressure 162/70 H 116/78 130/62 Pulse Oximetry 94 L 95 95 05/29/18 20:45 05/29/18 21:00 05/29/18 21:15 Temperature Pulse Rate 71 85 73 Respiratory Rate 22 29 H 22 Blood Pressure 111/55 L 133/61 144/64 H Pulse Oximetry 96 94 L 93 L 05/29/18 21:30 05/29/18 21:45 05/29/18 22:00 Temperature Pulse Rate 75 67 71 Respiratory Rate 32 H 21 23 Blood Pressure 121/58 L 126/56 L 122/58 L Pulse Oximetry 92 L 94 L 92 L 05/29/18 22:15 05/29/18 22:30 05/29/18 22:45 Temperature Pulse Rate 74 83 74 Respiratory Rate 24 50 H 23 Blood Pressure 119/58 L 148/68 H 150/66 H Pulse Oximetry 94 L 95 94 L 05/29/18 23:00 05/29/18 23:15 05/29/18 23:30 Temperature Pulse Rate 60 70 85 Respiratory Rate 23 29 H 39 H Blood Pressure 128/60 128/60 120/60 Pulse Oximetry 95 94 L 95 05/29/18 23:45 05/30/18 00:00 05/30/18 00:15 Temperature 97.6 F Pulse Rate 64 68 63 Respiratory Rate 23 23 23 Blood Pressure 128/60 127/61 128/60 Pulse Oximetry 95 94 L 94 L 05/30/18 00:30 05/30/18 00:45 05/30/18 01:00 Temperature Pulse Rate 80 60 82 Respiratory Rate 33 H 30 H 38 H Blood Pressure 149/68 H 125/58 L 153/67 H Pulse Oximetry 94 L 93 L 94 L 05/30/18 01:15 05/30/18 01:30 05/30/18 01:46 Temperature Pulse Rate 66 81 84 Respiratory Rate 22 40 H 37 H Blood Pressure 129/60 148/67 H 146/67 H Pulse Oximetry 94 L 95 95 05/30/18 02:00 05/30/18 02:15 05/30/18 02:33 Temperature Pulse Rate 73 69 81 Respiratory Rate 27 H 28 H 43 H Blood Pressure 144/61 H 145/65 H 150/67 H Pulse Oximetry 97 98 99 05/30/18 02:45 05/30/18 03:00 05/30/18 03:15 Temperature Pulse Rate 56 L 61 62 Respiratory Rate 22 32 H 27 H Blood Pressure 141/66 H 141/63 H 127/55 L Pulse Oximetry 98 100 100 05/30/18 03:30 05/30/18 03:45 05/30/18 04:00 Temperature 97.8 F Pulse Rate 80 66 55 L Respiratory Rate 33 H 27 H 34 H Blood Pressure 172/72 H 154/68 H 149/66 H Pulse Oximetry 99 99 100 05/30/18 04:15 05/30/18 04:30 05/30/18 04:45 Temperature Pulse Rate 68 66 66 Respiratory Rate 39 H 28 H 33 H Blood Pressure 144/67 H 159/61 H 180/73 H Pulse Oximetry 99 99 100 05/30/18 04:46 05/30/18 04:50 05/30/18 05:00 Temperature Pulse Rate 75 76 62 Respiratory Rate 43 H 39 H 40 H Blood Pressure 188/71 H 164/70 H 130/59 L Pulse Oximetry 100 97 94 L 05/30/18 05:15 05/30/18 05:30 05/30/18 05:45 Temperature Pulse Rate 82 87 67 Respiratory Rate 24 30 H 39 H Blood Pressure 136/62 136/65 117/59 L Pulse Oximetry 93 L 91 L 96 05/30/18 06:00 05/30/18 06:15 05/30/18 06:30 Temperature Pulse Rate 57 L 102 H 83 Respiratory Rate 22 24 25 H Blood Pressure 120/59 L 167/91 H 167/85 H Pulse Oximetry 99 97 93 L 05/30/18 06:45 05/30/18 07:00 05/30/18 07:15 Temperature Pulse Rate 83 78 76 Respiratory Rate 20 20 18 Blood Pressure 138/60 139/63 133/62 Pulse Oximetry 94 L 95 95 05/30/18 07:30 05/30/18 07:45 05/30/18 08:00 Temperature 97.7 F Pulse Rate 68 65 71 Respiratory Rate 24 24 20 Blood Pressure 132/63 149/64 H 134/63 Pulse Oximetry 95 96 96 05/30/18 08:15 05/30/18 08:30 05/30/18 08:45 Temperature Pulse Rate 75 76 69 Respiratory Rate 20 25 H 24 Blood Pressure 130/60 146/65 H 132/63 Pulse Oximetry 97 96 95 05/30/18 09:00 05/30/18 09:15 05/30/18 09:30 Temperature Pulse Rate 77 74 74 Respiratory Rate 28 H 31 H 22 Blood Pressure 157/67 H 149/68 H 149/69 H Pulse Oximetry 95 97 96 05/30/18 09:43 05/30/18 10:00 05/30/18 10:01 Temperature Pulse Rate 76 81 91 H Respiratory Rate 24 26 H 25 H Blood Pressure 161/72 H 183/77 H 174/75 H Pulse Oximetry 96 96 97 05/30/18 10:15 05/30/18 10:30 Temperature Pulse Rate 103 H 101 H Respiratory Rate 30 H 32 H Blood Pressure 170/93 H 141/65 H Pulse Oximetry 95 94 L Intake & Output 05/29/18 05/30/18 05/30/18 18:59 06:59 18:59 Intake Total 1761.2 / 1761.2 Output Total 601 / 601 1900 / 1900 Balance -601 / -601 -138.8 / -138.8 Weight 60.5 kg 55.9 kg Intake: IV 1761.2 / 1761.2 NS Inj 1,000 ML @ 84 mls/hr IV. 1000 / 1000 CONT .[id number] [facility] Rx#:[id number] Cardene Inj 25 MG In NS Inj 240 250 / 250 ML @ 5 MG/HR 50 mls/hr IV.CONT TITRATE PRN Rx#:[id number] MVI-12 Inj 10 ML Thiamine Inj 511.2 / 511.2 100 MG Folvite Inj 1 MG In NS Inj 500 ML @ 125 mls/hr IV.SIG Q24H [facility] Rx#:[id number] Output: Urine 600 / 600 1900 / 1900 Stool Other: Date of Last Bowel Movement 05/30/18 05/30/18 # Bowel Movements 1 # Incontinent Bowel Movements 1 Weight On Admission 60.5 kg Result Diagrams: 05/30/18 09:08 05/30/18 04:15 Assessment and Plan - Problem List (1) Intraventricular hemorrhage, nontraumatic Code(s): I61.5 - Nontraumatic intracerebral hemorrhage, intraventricular Status: Acute (2) Hypertensive emergency Code(s): I16.1 - Hypertensive emergency Status: Acute (3) Metabolic encephalopathy Code(s): G93.41 - Metabolic encephalopathy Status: Acute (4) Altered mental status Code(s): R41.82 - Altered mental status, unspecified Status: Acute (5) History of peripheral arterial disease Code(s): Z86.79 - Personal history of other diseases of the circulatory system Status: Chronic (6) History of hypertension Code(s): Z86.79 - Personal history of other diseases of the circulatory system Status: Chronic (7) Cessation of tobacco use in previous 12 months Code(s): Z87.891 - Personal history of nicotine dependence Status: Chronic - Assessment and Plan Plan: NEURO: Intraventricular hemorrhage vs. hemorrhagic mass at foramen of Bell with asymmetric left sided ventricular dilatation Acute encephalopathy, likely metabolic -Monitor neuro status closely -Dr. Palacios does not plan any neurosurgical intervention at this time -MRI of the brain with and without contrast -Tight blood pressure control with Cardene and IV labetalol as needed -Keep systolic blood pressure less than 150 -Supplement multivitamin thiamine given daily alcohol use -Watch closely for alcohol withdrawal RESP: Previous tobacco use -DuoNeb every 6 hours scheduled and as needed -SBT when appropriate CV: Hypertensive emergency History of hypertension Peripheral arterial disease -Normal saline IV fluids 84 mL/h -Cardene infusion and, IV labetalol as needed for systolic blood pressure less than 150 -Continue home enalapril and amlodipine, continue statin -Hold Plavix GI: -N.p.o. except meds, swallow eval, IV famotidine : -Monitor renal function closely. ID: -No indication for antibiotics at this time HEME: -Monitor CBC, coags ENDO: -Electrolyte replacement per protocol PROPH: -Bilateral lower extremity SCDs. Avoid chemical DVT prophylaxis until cleared by neurosurgery/famotidine LINES: -Utilize peripheral IVs, central line if needed CC time 38 min
--- NOTE | 2018-05-30 13:19 | P.PNCC ---
Subjective Subjective Remarks/Hospital Course: Patient is a 78-year-old female with past medical history significant for hypertension, peripheral arterial disease, history of vascular intervention/ stenting, arthritis who presented to the [facility] with mostly nonspecific complaints of memory loss and hallucinations for 1 week and worsening tremors of the right arm. Further workup in the emergency department showed subacute intraventricular hemorrhage into the left lateral ventricle and a focal thrombus that may be obstructing foramina of [place]. There was enlargement of the left lateral ventricle compared to the prior MRI. Also trace blood in the occipital horn of left lateral ventricle. With evidence of intraventricular hemorrhage patient was transferred emergently to [facility] for neurosurgery consult. I evaluated the patient after arrival to the ICU. Patient is profoundly hypertensive systolic blood pressure 190-200. IV labetalol 20 mg IV push given followed by Cardene infusion started. On exam patient did not appear to be in distress. No definite focal deficit however patient is oriented only to person. Reviewed CT scan with neurosurgery Dr. Palacios. On his review CT shows 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 hemorrhagic mass at foramen of Bell with asymmetric left sided ventricular dilatation. Stat MRI of the brain with and without contrast ordered. Started on Cardene infusion with target systolic blood pressure less than 140 SUBJ 05/30/18: MRI brain showed 2.3 x 1.7 cm mass within the body of the left lateral ventricle measuring 2.3 x 1.7 cm left lateral ventricle is prominent may be related to production of CSF from this mass. 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 Additional mass in the cerebellopontine angle on the left compressing upon the brainstem measuring 1.8 x 1.4 cm. Slightly more agitated and confused today. Partly secondary to mass partly could be alcohol withdrawal. Placed on as needed Haldol Objective Vital Signs / I&O: Vital Signs 05/29/18 15:05 05/29/18 15:10 05/29/18 15:21 Temperature Pulse Rate 96 H 77 Respiratory Rate 25 H 24 Blood Pressure 193/82 H 132/60 Pulse Oximetry 96 92 L 90 L 05/29/18 15:37 05/29/18 15:56 05/29/18 16:00 Temperature Pulse Rate 65 69 68 Respiratory Rate 28 H 31 H 34 H Blood Pressure 137/66 169/65 H Pulse Oximetry 97 98 98 05/29/18 16:11 05/29/18 16:26 05/29/18 16:35 Temperature Pulse Rate 66 65 64 Respiratory Rate 33 H 28 H 23 Blood Pressure 171/71 H 174/71 H 142/64 H Pulse Oximetry 100 100 100 05/29/18 16:41 05/29/18 16:56 05/29/18 17:00 Temperature Pulse Rate 65 78 68 Respiratory Rate 27 H 30 H 24 Blood Pressure 140/65 141/66 H Pulse Oximetry 100 97 98 05/29/18 17:11 05/29/18 17:47 05/29/18 17:54 Temperature Pulse Rate 73 82 87 Respiratory Rate 35 H 15 Blood Pressure 155/63 H 151/66 H Pulse Oximetry 96 05/29/18 17:55 05/29/18 18:00 05/29/18 18:15 Temperature Pulse Rate 84 81 85 Respiratory Rate 41 H 29 H 42 H Blood Pressure 146/67 H 133/61 141/55 H Pulse Oximetry 05/29/18 18:30 05/29/18 18:45 05/29/18 19:00 Temperature Pulse Rate 80 75 62 Respiratory Rate 36 H 44 H 45 H Blood Pressure 129/61 139/63 151/67 H Pulse Oximetry 97 96 96 05/29/18 19:15 05/29/18 19:30 05/29/18 19:45 Temperature Pulse Rate 85 95 H 98 H Respiratory Rate 34 H 38 H 40 H Blood Pressure 154/67 H 164/72 H 150/68 H Pulse Oximetry 96 95 96 05/29/18 20:00 05/29/18 20:15 05/29/18 20:30 Temperature 97.5 F L Pulse Rate 96 H 94 H 87 Respiratory Rate 30 H 41 H 32 H Blood Pressure 162/70 H 116/78 130/62 Pulse Oximetry 94 L 95 95 05/29/18 20:45 05/29/18 21:00 05/29/18 21:15 Temperature Pulse Rate 71 85 73 Respiratory Rate 22 29 H 22 Blood Pressure 111/55 L 133/61 144/64 H Pulse Oximetry 96 94 L 93 L 05/29/18 21:30 05/29/18 21:45 05/29/18 22:00 Temperature Pulse Rate 75 67 71 Respiratory Rate 32 H 21 23 Blood Pressure 121/58 L 126/56 L 122/58 L Pulse Oximetry 92 L 94 L 92 L 05/29/18 22:15 05/29/18 22:30 05/29/18 22:45 Temperature Pulse Rate 74 83 74 Respiratory Rate 24 50 H 23 Blood Pressure 119/58 L 148/68 H 150/66 H Pulse Oximetry 94 L 95 94 L 05/29/18 23:00 05/29/18 23:15 05/29/18 23:30 Temperature Pulse Rate 60 70 85 Respiratory Rate 23 29 H 39 H Blood Pressure 128/60 128/60 120/60 Pulse Oximetry 95 94 L 95 05/29/18 23:45 05/30/18 00:00 05/30/18 00:15 Temperature 97.6 F Pulse Rate 64 68 63 Respiratory Rate 23 23 23 Blood Pressure 128/60 127/61 128/60 Pulse Oximetry 95 94 L 94 L 05/30/18 00:30 05/30/18 00:45 05/30/18 01:00 Temperature Pulse Rate 80 60 82 Respiratory Rate 33 H 30 H 38 H Blood Pressure 149/68 H 125/58 L 153/67 H Pulse Oximetry 94 L 93 L 94 L 05/30/18 01:15 05/30/18 01:30 05/30/18 01:46 Temperature Pulse Rate 66 81 84 Respiratory Rate 22 40 H 37 H Blood Pressure 129/60 148/67 H 146/67 H Pulse Oximetry 94 L 95 95 05/30/18 02:00 05/30/18 02:15 05/30/18 02:33 Temperature Pulse Rate 73 69 81 Respiratory Rate 27 H 28 H 43 H Blood Pressure 144/61 H 145/65 H 150/67 H Pulse Oximetry 97 98 99 05/30/18 02:45 05/30/18 03:00 05/30/18 03:15 Temperature Pulse Rate 56 L 61 62 Respiratory Rate 22 32 H 27 H Blood Pressure 141/66 H 141/63 H 127/55 L Pulse Oximetry 98 100 100 05/30/18 03:30 05/30/18 03:45 05/30/18 04:00 Temperature 97.8 F Pulse Rate 80 66 55 L Respiratory Rate 33 H 27 H 34 H Blood Pressure 172/72 H 154/68 H 149/66 H Pulse Oximetry 99 99 100 05/30/18 04:15 05/30/18 04:30 05/30/18 04:45 Temperature Pulse Rate 68 66 66 Respiratory Rate 39 H 28 H 33 H Blood Pressure 144/67 H 159/61 H 180/73 H Pulse Oximetry 99 99 100 05/30/18 04:46 05/30/18 04:50 05/30/18 05:00 Temperature Pulse Rate 75 76 62 Respiratory Rate 43 H 39 H 40 H Blood Pressure 188/71 H 164/70 H 130/59 L Pulse Oximetry 100 97 94 L 05/30/18 05:15 05/30/18 05:30 05/30/18 05:45 Temperature Pulse Rate 82 87 67 Respiratory Rate 24 30 H 39 H Blood Pressure 136/62 136/65 117/59 L Pulse Oximetry 93 L 91 L 96 05/30/18 06:00 05/30/18 06:15 05/30/18 06:30 Temperature Pulse Rate 57 L 102 H 83 Respiratory Rate 22 24 25 H Blood Pressure 120/59 L 167/91 H 167/85 H Pulse Oximetry 99 97 93 L 05/30/18 06:45 05/30/18 07:00 05/30/18 07:15 Temperature Pulse Rate 83 78 76 Respiratory Rate 20 20 18 Blood Pressure 138/60 139/63 133/62 Pulse Oximetry 94 L 95 95 05/30/18 07:30 05/30/18 07:45 05/30/18 08:00 Temperature 97.7 F Pulse Rate 68 65 71 Respiratory Rate 24 24 20 Blood Pressure 132/63 149/64 H 134/63 Pulse Oximetry 95 96 96 05/30/18 08:15 05/30/18 08:30 05/30/18 08:45 Temperature Pulse Rate 75 76 69 Respiratory Rate 20 25 H 24 Blood Pressure 130/60 146/65 H 132/63 Pulse Oximetry 97 96 95 05/30/18 09:00 05/30/18 09:15 05/30/18 09:30 Temperature Pulse Rate 77 74 74 Respiratory Rate 28 H 31 H 22 Blood Pressure 157/67 H 149/68 H 149/69 H Pulse Oximetry 95 97 96 05/30/18 09:43 05/30/18 10:00 05/30/18 10:01 Temperature Pulse Rate 76 81 91 H Respiratory Rate 24 26 H 25 H Blood Pressure 161/72 H 183/77 H 174/75 H Pulse Oximetry 96 96 97 05/30/18 10:15 05/30/18 10:30 Temperature Pulse Rate 103 H 101 H Respiratory Rate 30 H 32 H Blood Pressure 170/93 H 141/65 H Pulse Oximetry 95 94 L Intake & Output 05/29/18 05/30/18 05/30/18 18:59 06:59 18:59 Intake Total 1761.2 / 1761.2 Output Total 601 / 601 1900 / 1900 Balance -601 / -601 -138.8 / -138.8 Weight 60.5 kg 55.9 kg Intake: IV 1761.2 / 1761.2 NS Inj 1,000 ML @ 84 mls/hr IV. 1000 / 1000 CONT .[id number] [facility] Rx#:[id number] Cardene Inj 25 MG In NS Inj 240 250 / 250 ML @ 5 MG/HR 50 mls/hr IV.CONT TITRATE PRN Rx#:[id number] MVI-12 Inj 10 ML Thiamine Inj 511.2 / 511.2 100 MG Folvite Inj 1 MG In NS Inj 500 ML @ 125 mls/hr IV.SIG Q24H [facility] Rx#:[id number] Output: Urine 600 / 600 1900 / 1900 Stool Other: Date of Last Bowel Movement 05/30/18 05/30/18 # Bowel Movements 1 # Incontinent Bowel Movements 1 Weight On Admission 60.5 kg Result Diagrams: 05/30/18 09:08 05/30/18 04:15 Objective Remarks: - Constitutional Lying in bed oriented to person only. Continues to pull on lines - HEENT Exam Normocephalic, atraumatic. ALEXYS - Neck Exam supple, full ROM, trachea midline - Respiratory Exam CTA bilaterally. No wheezes or crackles - Cardiovascular Exam Hypertension currently on Cardene infusion. S1-S2 normal no murmurs - Abdominal Exam Soft, normoactive bowel sounds - Extremities Exam Pulses intact, normal capillary refill - Neurological Exam Patient is alert oriented to person only. Moves all 4 extremities equally follows commands no focal deficits. Intermittently agitated and confused Assessment and Plan - Problem List (1) Intraventricular hemorrhage, nontraumatic Code(s): I61.5 - Nontraumatic intracerebral hemorrhage, intraventricular Status: Acute (2) Hypertensive emergency Code(s): I16.1 - Hypertensive emergency Status: Acute (3) Metabolic encephalopathy Code(s): G93.41 - Metabolic encephalopathy Status: Acute (4) Altered mental status Code(s): R41.82 - Altered mental status, unspecified Status: Acute (5) History of peripheral arterial disease Code(s): Z86.79 - Personal history of other diseases of the circulatory system Status: Chronic (6) History of hypertension Code(s): Z86.79 - Personal history of other diseases of the circulatory system Status: Chronic (7) Cessation of tobacco use in previous 12 months Code(s): Z87.891 - Personal history of nicotine dependence Status: Chronic - Assessment and Plan Plan: NEURO: Intraventricular hemorrhage vs. 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 Palacios -Oncology consult, also CT chest abdomen pelvis to rule out malignancy -Tight blood pressure control with Cardene and IV labetalol as needed -Keep systolic blood pressure less than 150 -Supplement multivitamin thiamine given daily alcohol use -Watch closely for alcohol withdrawal -Her confusional delirium at least partly related to alcohol withdrawal also likely from mass effect ? Hydrocephalus RESP: Previous tobacco use -DuoNeb every 6 hours scheduled and as needed CV: Hypertensive emergency History of hypertension Peripheral arterial disease -Normal saline IV fluids 84 mL/h -Cardene infusion and, IV labetalol as needed for systolic blood pressure less than 150 -Continue home enalapril and amlodipine, continue statin -Add metoprolol 50 mg twice daily -Hold Plavix GI: -Diet per speech recommendation, IV famotidine : -Monitor renal function closely. ID: -No indication for antibiotics at this time HEME: -Monitor CBC, coags ENDO: -Electrolyte replacement per protocol PROPH: -Bilateral lower extremity SCDs. Avoid chemical DVT prophylaxis until cleared by neurosurgery/famotidine LINES: -Utilize peripheral IVs, central line if needed CC time 35 min Code Status: Full
[2018-05-30] MEDS: niCARdipine Inj 25 MG in Sodium Chlor 0.9% Inj 240 ML IV.CONT PRN ×4 (13:24→19:34)
[2018-05-30] MEDS: Haloperidol Inj 5 MG/ML Ampul IV.PUSH PRN (13:33)
[2018-05-30] MEDS: Metoprolol Tartrate 50 MG Tablet PO SCH ×2 (14:45→23:02)
[2018-05-30] MEDS: Multivitamin Inj 10 ML, Thiamine Inj 100 MG, Folic Acid Inj 1 MG in Sodium Chlor 0.9% I... IV.SIG SCH (17:53)
[2018-05-30] MEDS: Dexmedetomidine Inj 200 MCG in Sodium Chlor 0.9% Inj 48 ML IV.CONT PRN (19:35)
--- NOTE | 2018-05-30 20:05 | MB ---
cc: Daren Robles MD DATE: 05/30/2018 HISTORY OF PRESENT ILLNESS: A 78-year-old woman with history of hypertension, peripheral vascular disease, stenting, arthritis, had some memory loss, hallucinations for a week, right-sided tremor, was found to have intraventricular hemorrhage with a left lateral ventricle hemorrhage with mass, enlargement of the left lateral ventricle compared to a prior MRI from 2015, some intraventricular hemorrhage, also a left mass that appears to be maybe somewhat encapsulated to the basilar or distal vertebral artery and push over quite a bit on the medulla. REVIEW OF SYSTEMS: Unable to obtain. , cannot get him on the phone. MEDICATIONS AT HOME: 1. Pravastatin. 2. Lisinopril. 3. Plavix. 4. Amlodipine. SOCIAL HISTORY: Apparently had some alcohol intake, at least 2 drinks a day. CURRENT MEDICATIONS: 1. Tylenol. 2. Norvasc. 3. Pepcid. 4. Haldol p.r.n. 5. Prinivil. 6. Ativan. PHYSICAL EXAMINATION: VITAL SIGNS: On exam 102, afebrile, 137/82, as high as 205/108 today. NECK: There were no carotid bruits. HEART: Regular rate and rhythm. I did not detect a murmur. HEENT: The pupils are equal, but she is not cooperative to exam. Eyes seem to move maybe a little bit more over to the right. She says some things, but does not really answer questions. She tells me she does not know what her name is, will not follow any commands. EXTREMITIES: She seems to have some increased tone in the right knee and lower extremity. The right toe may be up. The left toe appears to be down. She can move and bend that left knee a little bit better than the right. Appears to have normal tone in bilateral upper extremities. No ankle clonus. Feels discomfort throughout. Appears very encephalopathic, somewhat agitated. LABORATORY DATA: CBC essentially normal. Basic metabolic profile, LFTs are normal. She had an MRI of the brain done yesterday, shows enlarged ventricles, worse than prior. IMPRESSION: With the hydrocephalus certainly that could cause some of her confusion and the tremors, I am concerned also about the medullary compression and neurosurgery should address that. Otherwise, neurology and I think a little bit of Precedex might be of help to her. We will just check a thyroid, B12 and an EEG. We will give her some thiamine in case there are any alcohol withdrawal issues here. MD RIC Rivers/sv , 06:25 PM , 06:35 PM
[2018-05-30 20:35] LABS: T4 (Thyroxine) 6.3 mcg/dL (4.8-13.9)
[2018-05-30 21:00] LABS: Thyroid Stimulating Hormone 1.21 uIU/mL (0.358-3.740)
--- NOTE | 2018-05-30 23:08 | CT ---
EXAM DATE: 05/30/2018 10:54 PM EST AGE/SEX: 78 years / Female INDICATIONS: Brain mass; evalaute for metastases. CLINICAL DATA: This is the patient's initial encounter. Patient reports that signs and symptoms have been present for 1 day and indicates a pain score of Nonresponsive. MEDICAL/SURGICAL HISTORY: . Coronary artery disease. Brain mass. Coronary artery stent. RADIATION DOSE: 9.55 CTDI (mGy) ; Combined studies COMPARISON: No prior exams available for comparison. TECHNIQUE: Multiple contiguous axial images were obtained through the chest during bolus infusion of 99 ml Omnipaque 350 (iohexol) nonionic water-soluble contrast as a cumulative dose for multiple exa ms. Images were obtained in suspended respiration using multiple row detector helical technique. U sing automated exposure control and adjustment of the mA and/or kV according to patient size, radiati on dose was kept as low as reasonably achievable to obtain optimal diagnostic quality images. DICOM format image data is available electronically for review and comparison. FINDINGS: Lung: There is a 1.6 x 1.1 cm somewhat spiculated nodule in the right upper lobe. 3 mm subpleural no dules are noted in the superior segment of the left lower lobe. There is linear airspace consolidatio n at the right lung base with more prominent airspace consolidation at the left lung base. Pleura: No effusion, significant pleural thickening or pneumothorax. Mediastinum: Heart is unremarkable without pericardial effusion.No evidence of mediastinal or hilar adenopathy. Osseous Structures: No abnormal focal lytic or blastic bony lesions. Soft Tissues: There are bilateral peripherally calcified breast implants in place. There is a 1.1 x 1 .4 cm soft tissue density abnormality emanating from the inferior lateral margin of the right breast implant. CONCLUSION: 1. 1.6 x 1.1 cm spiculated right upper lobe lung nodule concerning for metastasis or primary lung ma lignancy. 2. Additional 3 mm subpleural nodules in the superior segment of the left lower lobe are nonspecific . 3. Mild atelectasis/scarring at the right lung base with more prominent airspace consolidation at th e left lung base. 4. 1.1 x 1.4 cm soft tissue density abnormality emanating from the inferior lateral margin of the ri ght breast implant which may reflect a focal disruption. However, cannot exclude an adjacent breast m ass. Correlation with patient's history and prior breast imaging is recommended. Electronically signed by: Nick Gold MD Board Certified Radiologist 05/30/2018 11:07 PM [place] T
--- NOTE | 2018-05-30 23:15 | CT ---
EXAM DATE: 05/30/2018 10:55 PM EST AGE/SEX: 78 years / Female INDICATIONS: Brain mass; evaluate for metastases. CLINICAL DATA: This is the patient's initial encounter. Patient reports that signs and symptoms have been present for 1 day and indicates a pain score of Nonresponsive. MEDICAL/SURGICAL HISTORY: . Coronary artery disease. Coronary artery stent. ORAL CONTRAST: No oral contrast ingested. RADIATION DOSE: 9.55 CTDI (mGy) ; Combined studies COMPARISON: No prior exams available for comparison. TECHNIQUE: Multiple contiguous axial images were obtained through the abdomen and pelvis following b olus infusion of 99 ml Omnipaque 350 (iohexol) nonionic water-soluble contrast as a cumulative dose for multiple exams. No oral contrast ingested. Using automated exposure control and adjustment of t he mA and/or kV according to patient size, radiation dose was kept as low as reasonably achievable to obtain optimal diagnostic quality images. DICOM format image data is available electronically for r eview and comparison. FINDINGS: LIVER: There is a 1.6 cm low density indeterminate lesion in the posterior right lobe of the liver a nd a 1.3 cm cyst in segment 2. There are additional subcentimeter hypodense lesions at the liver. The se are too small to fully characterize. SPLEEN: Homogeneous density without enlargement. PANCREAS: Unremarkable without mass or calcification. KIDNEYS: Kidneys demonstrate symmetrical enhancement without evidence for hydronephrosis. Calcificat ions near the right renal pelvis are likely vascular in etiology. Small subcentimeter cystic lesions in the inferior pole of the left kidney are too small to fully characterize. ADRENAL GLANDS: There is a left adrenal mass measuring 1.3 x 1.2 cm. AORTA: Diffusely atherosclerotic without aneurysm. BOWEL/MESENTERY: Moderate sigmoid diverticulosis without significant inflammatory change. Scattered colonic diverticula. Small bowel loops are normal in caliber without evidence for obstruction. No rosemary e fluid or drainable fluid collections. No free air. No pneumatosis. ABDOMINAL WALL: Intact. RETROPERITONEUM: Subcentimeter retroperitoneal nodes do not meet CT size criteria. BLADDER: Contours are smooth. REPRODUCTIVE: No abnormal masses or calcifications seen. BONY STRUCTURES: No definite abnormal focal lytic or blastic bony lesions. CONCLUSION: 1. 1.3 cm left adrenal mass. Findings are concerning for metastatic disease given findings of brain metastasis and lung mass. 2. 1.6 cm indeterminate low-density lesion in the posterior right lobe of the liver with numerous ad ditional subcentimeter hypodense lesions which are too small to fully characterize. Although metastat ic disease cannot be entirely excluded, suspect these reflect cysts. 3. Colonic diverticulosis without evidence for diverticulitis. 4. Otherwise, no additional definitive evidence for metastatic disease to the abdomen or pelvis. Electronically signed by: Nick Gold MD Board Certified Radiologist 05/30/2018 11:14 PM [place]
--- NOTE | 2018-05-30 23:19 | MB ---
cc: Sis Kapadia MD,Dulce Gomes MD DATE: 05/30/2018 REFERRING PHYSICIAN: Dr. Dulce Saab CHIEF COMPLAINT: Dr. Saab requests a consultation for Mrs. Pryor regarding the intraventricular and cerebellopontine angle tumor. HISTORY OF PRESENT ILLNESS: Ms. Pryor is a 78-year-old woman who was transferred to [facility] from [facility]. She has a history of hypertension, peripheral artery disease and a recent vascular intervention. She presented to the [facility] with memory loss, hallucination, worsening tremor of the right arm. Workup in the [place] emergency room showed a subacute intraventricular hemorrhage into the left lateral ventricle, possible thrombus and for that recent transferred to [facility]. On admission, she was severely hypertensive. She was managed by the copper plate lithographer. She was seen by neurosurgery. Imaging study included MRI of the head that showed a 2.3 x 1.7 cm mass within the body of the left lateral ventricle. The left lateral ventricle is prominent. 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 There is also a mass in the cerebellopontine angle on the left, compressing the brainstem measuring 1.8 x 1.4 cm. There are other changes including chronic ischemic small vessel vasculopathy. Neurosurgery has requested CTA for surgical planning. Medical oncology is consulted for suspected tumor. No history could be obtained from the patient. History was reviewed through the electronic medical records available. The patient was confused. She was recently started on Peridex. She answers to her name, but otherwise does not provide any history. PAST MEDICAL HISTORY: As described above. PAST SURGICAL HISTORY: Vascular intervention. REVIEW OF SYSTEMS: Unable to obtain. SOCIAL HISTORY: She is . She drinks at least 2 drinks per day. FAMILY HISTORY: Unable to obtain. ALLERGIES: NO KNOWN DRUG ALLERGIES. MEDICATIONS: 1. Norvasc. 2. Chlorhexidine. 3. Dexmedetomidine. 4. Famotidine. 5. Haloperidol. 6. Prinivil. 7. Lorazepam. 8. Lopressor. 8. Multivitamin 9. Nicardipine. 10. Pravachol. 11. Kate-Colace. PHYSICAL EXAMINATION: VITAL SIGNS: Temperature 97.7, heart rate 102, respiratory rate 48, blood pressure 137/82, saturation 93%. GENERAL: Ms. Pryor is a disorganized elderly woman who had her eyes open who keeps saying oh my God. Her eyes are closed. She does not follow commands. She answers to her name. HEENT: Her pupils are round and reactive. Sclerae are nonicteric. Oropharynx is dry. NECK: Supple. LUNGS: Clear anteriorly. CARDIOVASCULAR: Reveals tachycardia. ABDOMEN: Benign. LOWER EXTREMITIES: Appears to move all 4 extremities. Right leg straightened in a position. Pulses palpable. No edema. LABORATORY DATA: Significant for macrocytosis with MCV 102.3, WBC 11.9, platelet count is 252. Chemistry is normal. Serum B12, thiamine and TSH are pending. ASSESSMENT AND PLAN: Ms. Pryor is a 78-year-old woman with multiple medical problems described above. She is agitated and confused, thus for her presentation. She has received some Precedex at the time of consultation. Imaging study and history was reviewed. Further recommendation pending on the final pathology of the above mass. Apparently, neurosurgery is considering surgical intervention pending a CTA. We will continue to monitor her progress. We will follow along with the team. MD SKIP Barkley/sammy/do , 08:54 PM , 09:03 PM
[2018-05-31] MEDS: Sod Chloride 0.9% Inj 1,000 ML IV.CONT SCH ×4 (02:46→21:36)
[2018-05-31] MEDS: Chlorhexidine Gluconate 2% 1 Pack (2 Cloths) TOPICAL SCH (04:16)
--- NOTE | 2018-05-31 08:20 | P.PNNEU ---
Subjective Active Medications: Active Medications Acetaminophen (Tylenol) 650 mg PO Q6H PRN PRN Reason: PAIN 1-10 AND/OR FEVER >101F Al Hydroxide/Mg Hydroxide (Milk Of Heidi Treviño) 30 ml PO Q12H PRN PRN Reason: Mild Constipation Albuterol (Duoneb Neb (Prn)) 1 ampul NEB Q2HR NEB PRN PRN Reason: WHEEZING Amlodipine Besylate (Norvasc) [address] [facility] Last Admin: 05/30/18 09:14 Dose: 5 mg Bisacodyl (Dulcolax Supp) 10 mg RECTAL DAILY PRN PRN Reason: SEVERE CONSITIPATION Chlorhexidine Gluconate (Chlorhexidine 2% Cloth) 3 pack TOPICAL DAILY@0400 [facility] Stop: 06/04/18 03:59 Last Admin: 05/31/18 04:16 Dose: 3 pack Chlorhexidine Gluconate (Chlorhexidine 2% Cloth) 3 pack TOPICAL DAILY@0400 PRN PRN Reason: Extra cloth needed Stop: 06/04/18 03:59 Famotidine (Pepcid Pf Inj) [address] [facility] Last Admin: 05/30/18 21:15 Dose: 20 mg Haloperidol Lactate (Haldol Inj) 2 mg IV.PUSH Q4H PRN PRN Reason: AGITATION Last Admin: 05/30/18 13:33 Dose: 2 mg Sodium Chloride (Ns Inj) 1,000 mls @ 84 mls/hr IV.CONT .[id number] [facility] Last Admin: 05/31/18 02:46 Dose: 84 mls/hr Nicardipine HCl 25 mg/ Sodium (Chloride) 250 mls @ 50 mls/hr IV.CONT TITRATE PRN; Protocol PRN Reason: Per Protocol Last Titration: 05/30/18 20:30 Dose: 0 mg/hr, 0 mls/hr Multivitamins 10 ml/ Thiamine HCl 100 mg/ Folic Acid 1 mg/Sodium Chloride 511.2 mls @ 125 mls/hr IV.SIG Q24H [facility] Stop: 05/31/18 21:06 Last Infusion: 05/31/18 00:15 Dose: Infused Magnesium Sulfate 4 gm/ Sodium (Chloride) 100 mls @ 50 mls/hr IV.SIG UNSCH PRN PRN Reason: For Magnesium 0.9 - 1.1 mg/dL Magnesium Sulfate 2 gm/ Sodium (Chloride) 100 mls @ 50 mls/hr IV.SIG UNSCH PRN PRN Reason: For Magnesium 1.2 - 1.6 mg/dL Potassium Chloride (Kcl 40 Meq Premix Inj) 40 meq in 100 mls @ 25 mls/hr IV.SIG Q2H PRN PRN Reason: For Potassium 2.8 - 3.2 mEq/L Potassium Chloride (Kcl 20 Meq Premix Inj) 20 meq in 100 mls @ 50 mls/hr IV.SIG Q2H PRN PRN Reason: For Potassium 3.3 - 3.5 mEq/L Potassium Chloride (Kcl 40 Meq Premix Inj) 40 meq in 100 mls @ 25 mls/hr IV.SIG UNSCH PRN PRN Reason: For Potassium 3.3 - 3.5 mEq/L Potassium Chloride (Kcl 20 Meq Premix Inj) 20 meq in 100 mls @ 50 mls/hr IV.SIG Q2H PRN PRN Reason: For Potassium 2.8 - 3.2 mEq/L Potassium Phosphate 30 mmol/ (Sodium Chloride) 260 mls @ 42 mls/hr IV.SIG UNSCH PRN PRN Reason: SEE LABEL COMMENTS Sodium Phosphate 30 mmol/ (Sodium Chloride) 260 mls @ 42 mls/hr IV.SIG UNSCH PRN PRN Reason: For Phosphorus < 2.5 mg/dL Dexmedetomidine HCl 200 mcg/ (Sodium Chloride) 50 mls @ 2.79 mls/hr IV.CONT TITRATE PRN; Protocol PRN Reason: Per Protocol Last Admin: 05/30/18 19:35 Dose: 0.2 mcg/kg/hr, 2.79 mls/hr Lactulose (Lactulose Liq) 30 ml PO DAILY PRN PRN Reason: SEVERE CONSITIPATION Lisinopril (Prinivil) [address] [facility] Last Admin: 05/30/18 09:14 Dose: 40 mg Lorazepam (Ativan Inj) 0.5 mg IV.PUSH Q2H PRN PRN Reason: ANXIETY Last Admin: 05/31/18 04:17 Dose: 0.5 mg Magnesium Oxide (Mag-Ox) 800 mg PO UNSCH PRN PRN Reason: For Magnesium 1.2 - 1.6 mg/dL Metoprolol Tartrate (Lopressor) [address] [facility] Last Admin: 05/30/18 23:02 Dose: Not Given Potassium Chloride (Kcl Liq) 40 meq PO UNSCH PRN PRN Reason: Potassium level 3.3-3.5 mEq/L Potassium Chloride (Kcl Liq) 40 meq PO UNSCH PRN PRN Reason: Potassium level 3.3-3.5 mEq/L Potassium Phosphate (K-Phos Original) 2,000 mg PO Q4H PRN PRN Reason: Phosphorus Less Than 2.5 mg/dL Potassium Phosphate (K-Phos Original) 2,000 mg PO UNSCH PRN PRN Reason: SEE LABEL COMMENTS Pravastatin Sodium (Pravachol) [address] [facility] Last Admin: 05/30/18 09:14 Dose: 40 mg Senna/Docusate Sodium (Kate-Colace) [address] [facility] Last Admin: 05/30/18 21:16 Dose: Not Given Sennosides (Senokot) 17.2 mg PO Q12H PRN PRN Reason: Moderate Constipation Sodium Chloride (Ns Flush) 2 ml IV.FLUSH PRN PRN PRN Reason: FLUSH AFTER USING IV ACCESS Sodium Chloride (Ns Flush) [address] [facility] Last Admin: 05/30/18 21:15 Dose: 2 ml Allergies/Adverse Reactions: Allergies Allergy/AdvReac Type Severity Reaction Status Date / Time No Known Allergies Allergy Verified 05/29/18 15:32 Physical Exam Vital signs: Vital Signs 05/30/18 08:30 05/30/18 08:45 05/30/18 09:00 Temperature Pulse Rate 76 69 77 Respiratory Rate 25 H 24 28 H Blood Pressure 146/65 H 132/63 157/67 H Pulse Oximetry 96 95 95 05/30/18 09:15 05/30/18 09:30 05/30/18 09:43 Temperature Pulse Rate 74 74 76 Respiratory Rate 31 H 22 24 Blood Pressure 149/68 H 149/69 H 161/72 H Pulse Oximetry 97 96 96 05/30/18 10:00 05/30/18 10:01 05/30/18 10:15 Temperature Pulse Rate 81 91 H 103 H Respiratory Rate 26 H 25 H 30 H Blood Pressure 183/77 H 174/75 H 170/93 H Pulse Oximetry 96 97 95 05/30/18 10:30 05/30/18 10:45 01/16/19 11:00 Temperature Pulse Rate 101 H 87 88 Respiratory Rate 32 H 33 H 27 H Blood Pressure 141/65 H 152/65 H 138/64 Pulse Oximetry 94 L 94 L 94 L 05/30/18 11:15 05/30/18 11:30 05/30/18 11:59 Temperature Pulse Rate 82 65 93 H Respiratory Rate 27 H 31 H 44 H Blood Pressure 158/69 H 123/58 L 134/62 Pulse Oximetry 95 95 92 L 05/30/18 12:00 05/30/18 12:15 05/30/18 12:30 Temperature Pulse Rate 86 106 H 94 H Respiratory Rate 38 H 43 H 36 H Blood Pressure 132/62 147/66 H 141/60 H Pulse Oximetry 92 L 93 L 93 L 05/30/18 12:45 05/30/18 13:00 05/30/18 13:15 Temperature Pulse Rate 120 H 89 92 H Respiratory Rate 44 H 45 H 45 H Blood Pressure 137/61 128/79 160/69 H Pulse Oximetry 92 L 93 L 93 L 05/30/18 13:30 05/30/18 13:45 05/30/18 14:00 Temperature Pulse Rate 94 H 100 H 104 H Respiratory Rate 38 H 44 H 42 H Blood Pressure 133/60 155/63 H 167/72 H Pulse Oximetry 93 L 93 L 94 L 05/30/18 14:09 05/30/18 14:15 05/30/18 14:30 Temperature Pulse Rate 101 H 106 H 89 Respiratory Rate 37 H 51 H 28 H Blood Pressure 145/65 H 169/81 H 143/109 H Pulse Oximetry 93 L 94 L 93 L 05/30/18 14:39 05/30/18 14:45 05/30/18 15:00 Temperature Pulse Rate 74 80 100 H Respiratory Rate 17 26 H 42 H Blood Pressure 141/64 H 142/86 H 150/71 H Pulse Oximetry 93 L 94 L 94 L 05/30/18 15:15 05/30/18 15:27 05/30/18 15:30 Temperature Pulse Rate 69 80 89 Respiratory Rate 40 H 36 H 51 H Blood Pressure 191/88 H 158/80 H 176/95 H Pulse Oximetry 93 L 93 L 94 L 05/30/18 15:45 05/30/18 15:46 05/30/18 15:49 Temperature Pulse Rate 101 H 106 H Respiratory Rate 46 H 48 H 58 H Blood Pressure 205/99 H 205/108 H 197/116 H Pulse Oximetry 94 L 94 L 95 05/30/18 15:52 05/30/18 15:56 05/30/18 15:57 Temperature Pulse Rate 104 H Respiratory Rate 38 H 45 H 40 H Blood Pressure 192/89 H 219/95 H 207/95 H Pulse Oximetry 94 L 92 L 93 L 05/30/18 16:00 05/30/18 16:05 05/30/18 17:00 Temperature Pulse Rate 104 H 138 H 105 H Respiratory Rate 49 H 56 H 42 H Blood Pressure 159/73 H Pulse Oximetry 93 L 91 L 05/30/18 18:00 05/30/18 18:10 05/30/18 19:00 Temperature Pulse Rate 106 H 102 H 99 H Respiratory Rate 40 H 48 H 39 H Blood Pressure 137/82 Pulse Oximetry 91 L 91 L 91 L 05/30/18 19:30 05/30/18 19:35 05/30/18 19:50 Temperature Pulse Rate 92 H 107 H 105 H Respiratory Rate 40 H 39 H 42 H Blood Pressure 144/67 H 141/67 H 154/67 H Pulse Oximetry 91 L 91 L 95 05/30/18 20:00 05/30/18 20:05 05/30/18 20:18 Temperature 99.5 F Pulse Rate 100 H 93 H Respiratory Rate 35 H 34 H Blood Pressure 142/64 H Pulse Oximetry 95 95 93 L 05/30/18 20:20 05/30/18 20:35 05/30/18 20:50 Temperature Pulse Rate 100 H 86 93 H Respiratory Rate 39 H 30 H 34 H Blood Pressure 148/65 H 119/53 L 119/58 L Pulse Oximetry 92 L 93 L 93 L 05/30/18 21:00 05/30/18 21:05 05/30/18 21:20 Temperature Pulse Rate 74 65 69 Respiratory Rate 30 H 31 H 28 H Blood Pressure 99/48 L 116/53 L Pulse Oximetry 96 96 94 L 05/30/18 21:35 05/30/18 21:50 05/30/18 22:00 Temperature Pulse Rate 60 55 L 60 Respiratory Rate 22 27 H 20 Blood Pressure 92/51 L 81/42 L Pulse Oximetry 92 L 96 95 05/30/18 22:05 05/30/18 22:20 05/30/18 22:35 Temperature Pulse Rate 70 87 Respiratory Rate 26 H 38 H 25 H Blood Pressure 71/48 L 137/64 118/57 L Pulse Oximetry 93 L 92 L 92 L 05/30/18 22:50 05/30/18 23:00 05/30/18 23:05 Temperature Pulse Rate 104 H Respiratory Rate 29 H 33 H Blood Pressure 134/65 145/65 H Pulse Oximetry 94 L 95 95 05/30/18 23:20 05/30/18 23:35 05/30/18 23:50 Temperature Pulse Rate 120 H 115 H Respiratory Rate 21 36 H 41 H Blood Pressure 161/68 H 159/65 H 169/68 H Pulse Oximetry 95 93 L 93 L 05/31/18 00:00 05/31/18 00:05 05/31/18 00:20 Temperature 98.4 F Pulse Rate 81 71 82 Respiratory Rate 22 23 33 H Blood Pressure 80/43 L 105/51 L Pulse Oximetry 94 L 96 97 05/31/18 00:35 05/31/18 00:50 05/31/18 01:00 Temperature Pulse Rate 72 67 65 Respiratory Rate 24 48 H 29 H Blood Pressure 93/46 L 97/53 L Pulse Oximetry 96 91 L 93 L 05/31/18 01:05 05/31/18 01:20 05/31/18 01:35 Temperature Pulse Rate 65 69 69 Respiratory Rate 31 H 24 28 H Blood Pressure 94/55 L 103/54 L 107/56 L Pulse Oximetry 92 L 96 96 05/31/18 01:50 05/31/18 02:00 05/31/18 02:05 Temperature Pulse Rate 73 74 75 Respiratory Rate 24 21 28 H Blood Pressure 106/52 L 109/53 L Pulse Oximetry 95 97 96 05/31/18 02:20 05/31/18 02:22 05/31/18 02:35 Temperature Pulse Rate 60 60 78 Respiratory Rate 41 H 32 H 24 Blood Pressure 89/44 L 112/57 L 125/79 Pulse Oximetry 95 95 97 05/31/18 02:50 05/31/18 03:00 05/31/18 03:09 Temperature Pulse Rate 60 57 L 87 Respiratory Rate 17 18 30 H Blood Pressure 106/51 L 116/55 L Pulse Oximetry 98 98 100 05/31/18 03:20 05/31/18 03:35 05/31/18 03:50 Temperature Pulse Rate 70 Respiratory Rate 25 H 23 Blood Pressure 140/62 130/62 135/88 Pulse Oximetry 96 96 93 L 05/31/18 04:00 05/31/18 04:05 05/31/18 04:12 Temperature 97.6 F Pulse Rate 94 H 75 108 H Respiratory Rate 26 H 18 30 H Blood Pressure 203/134 H 141/65 H Pulse Oximetry 89 L 95 92 L 05/31/18 04:20 05/31/18 04:35 05/31/18 04:50 Temperature Pulse Rate 94 H 82 70 Respiratory Rate 24 21 19 Blood Pressure 128/53 L 116/57 L 94/46 L Pulse Oximetry 94 L 95 90 L 05/31/18 05:00 05/31/18 05:05 05/31/18 05:20 Temperature Pulse Rate 70 70 71 Respiratory Rate 19 18 17 Blood Pressure 106/55 L 126/60 Pulse Oximetry 91 L 91 L 98 05/31/18 05:35 05/31/18 05:50 05/31/18 06:00 Temperature Pulse Rate 114 H 88 107 H Respiratory Rate 19 20 39 H Blood Pressure 133/60 145/67 H Pulse Oximetry 95 98 93 L 05/31/18 06:05 05/31/18 06:20 05/31/18 06:35 Temperature Pulse Rate 107 H 78 Respiratory Rate 24 19 32 H Blood Pressure 133/61 162/70 H 173/67 H Pulse Oximetry 97 99 95 Intake & Output 05/30/18 05/31/18 05/31/18 18:59 06:59 18:59 Intake Total 750 / 750 1761.2 / 1761.2 Output Total 1600 / 1600 300 / 300 Balance -850 / -850 1461.2 / 1461.2 Weight 53.9 kg Intake: IV 750 / 750 1761.2 / 1761.2 NS Inj 1,000 ML @ 84 mls/hr IV. 1000 / [id number] [facility] Rx#:[id number] Cardene Inj 25 MG In NS Inj 240 750 / 750 250 / 250 ML @ 5 MG/HR 50 mls/hr IV.CONT TITRATE PRN Rx#:[id number] MVI-12 Inj 10 ML Thiamine Inj 511.2 / 511.2 100 MG Folvite Inj 1 MG In NS Inj 500 ML @ 125 mls/hr IV.SIG Q24H [facility] Rx#:[id number] Output: Urine 1600 / 1600 300 / 300 Other: Date of Last Bowel Movement 05/30/18 05/30/18 Narrative: less encephalopathic says name and follows commands moving all well inc rle Objective Laboratory Results - last 24 hr 05/30/18 05/30/18 09:08 19:34 WBC 11.9 H RBC 4.24 Hgb 14.4 Hct 43.4 MCV 102.3 H MCH 34.1 H MCHC 33.3 RDW 14.3 Plt Count 252 MPV 7.1 Neut % (Auto) 87.7 H Lymph % (Auto) 6.6 L [place] % (Auto) 4.8 Eos % (Auto) 0.6 Baso % (Auto) 0.3 Neut # (Auto) 10.8 H Lymph # (Auto) 0.8 L [place] # (Auto) 0.6 Eos # (Auto) 0.1 Baso # (Auto) 0.0 WBC Differential Manual diff final Seg Neuts % (Manual) 81 H Band Neuts % (Manual) 6 Lymphocytes % (Manual) 8 L Monocytes % (Manual) 5 Abs Neuts (Manual) 10.4 H Differential Comment Auto diff final Platelet Estimate Normal Platelet Morphology Clumped H Vitamin B12 1515 H TSH 1.210 Thyroxine (T4) 6.3 Review/Management - Review/Management Plan: imp improved MS mary on case i dw dr langston the [place] abn and he is aware fu eeg
[2018-05-31] MEDS: Senna/Docusate Sodium 8.6/50 MG Tablet PO SCH ×2 (08:57→21:36)
[2018-05-31] MEDS: amLODIPine 5 MG Tablet PO SCH (08:57)
[2018-05-31] MEDS: Metoprolol Tartrate 50 MG Tablet PO SCH ×2 (08:57→21:36)
[2018-05-31] MEDS: Lisinopril 20 MG Tablet PO SCH (08:58)
[2018-05-31] MEDS: Famotidine PF Inj 20 MG/2 ML Vial IV.PUSH SCH ×2 (09:01→21:35)
--- NOTE | 2018-05-31 11:34 | P.PNNS ---
Subjective Interval history: 05/31/18 drowsy, given Ativan early this morning, and currently Precedex has been held <Samanta Banda - Last Filed: 06/01/18 11:50> Physical Exam Vital signs: Vital Signs 05/30/18 19:00 05/30/18 19:30 05/30/18 19:35 Temperature Pulse Rate 99 H 92 H 107 H Respiratory Rate 39 H 40 H 39 H Blood Pressure 144/67 H 141/67 H Pulse Oximetry 91 L 91 L 91 L 05/30/18 19:50 05/30/18 20:00 05/30/18 20:05 Temperature 99.5 F Pulse Rate 105 H 100 H 93 H Respiratory Rate 42 H 35 H 34 H Blood Pressure 154/67 H 142/64 H Pulse Oximetry 95 95 95 05/30/18 20:18 05/30/18 20:20 05/30/18 20:35 Temperature Pulse Rate 100 H 86 Respiratory Rate 39 H 30 H Blood Pressure 148/65 H 119/53 L Pulse Oximetry 93 L 92 L 93 L 05/30/18 20:50 05/30/18 21:00 05/30/18 21:05 Temperature Pulse Rate 93 H 74 65 Respiratory Rate 34 H 30 H 31 H Blood Pressure 119/58 L 99/48 L Pulse Oximetry 93 L 96 96 05/30/18 21:20 05/30/18 21:35 05/30/18 21:50 Temperature Pulse Rate 69 60 55 L Respiratory Rate 28 H 22 27 H Blood Pressure 116/53 L 92/51 L 81/42 L Pulse Oximetry 94 L 92 L 96 05/30/18 22:00 05/30/18 22:05 05/30/18 22:20 Temperature Pulse Rate 60 70 87 Respiratory Rate 20 26 H 38 H Blood Pressure 71/48 L 137/64 Pulse Oximetry 95 93 L 92 L 05/30/18 22:35 05/30/18 22:50 05/30/18 23:00 Temperature Pulse Rate 104 H Respiratory Rate 25 H 29 H Blood Pressure 118/57 L 134/65 Pulse Oximetry 92 L 94 L 95 05/30/18 23:05 05/30/18 23:20 05/30/18 23:35 Temperature Pulse Rate 120 H Respiratory Rate 33 H 21 36 H Blood Pressure 145/65 H 161/68 H 159/65 H Pulse Oximetry 95 95 93 L 05/30/18 23:50 05/31/18 00:00 05/31/18 00:05 Temperature 98.4 F Pulse Rate 115 H 81 71 Respiratory Rate 41 H 22 23 Blood Pressure 169/68 H 80/43 L Pulse Oximetry 93 L 94 L 96 05/31/18 00:20 05/31/18 00:35 05/31/18 00:50 Temperature Pulse Rate 82 72 67 Respiratory Rate 33 H 24 48 H Blood Pressure 105/51 L 93/46 L 97/53 L Pulse Oximetry 97 96 91 L 05/31/18 01:00 05/31/18 01:05 05/31/18 01:20 Temperature Pulse Rate 65 65 69 Respiratory Rate 29 H 31 H 24 Blood Pressure 94/55 L 103/54 L Pulse Oximetry 93 L 92 L 96 05/31/18 01:35 05/31/18 01:50 05/31/18 02:00 Temperature Pulse Rate 69 73 74 Respiratory Rate 28 H 24 21 Blood Pressure 107/56 L 106/52 L Pulse Oximetry 96 95 97 05/31/18 02:05 05/31/18 02:20 05/31/18 02:22 Temperature Pulse Rate 75 60 60 Respiratory Rate 28 H 41 H 32 H Blood Pressure 109/53 L 89/44 L 112/57 L Pulse Oximetry 96 95 95 05/31/18 02:35 05/31/18 02:50 05/31/18 03:00 Temperature Pulse Rate 78 60 57 L Respiratory Rate 24 17 18 Blood Pressure 125/79 106/51 L Pulse Oximetry 97 98 98 05/31/18 03:09 05/31/18 03:20 05/31/18 03:35 Temperature Pulse Rate 87 70 Respiratory Rate 30 H 25 H 23 Blood Pressure 116/55 L 140/62 130/62 Pulse Oximetry 100 96 96 05/31/18 03:50 05/31/18 04:00 05/31/18 04:05 Temperature 97.6 F Pulse Rate 94 H 75 Respiratory Rate 26 H 18 Blood Pressure 135/88 203/134 H Pulse Oximetry 93 L 89 L 95 05/31/18 04:12 05/31/18 04:20 05/31/18 04:35 Temperature Pulse Rate 108 H 94 H 82 Respiratory Rate 30 H 24 21 Blood Pressure 141/65 H 128/53 L 116/57 L Pulse Oximetry 92 L 94 L 95 05/31/18 04:50 05/31/18 05:00 05/31/18 05:05 Temperature Pulse Rate 70 70 70 Respiratory Rate 19 19 18 Blood Pressure 94/46 L 106/55 L Pulse Oximetry 90 L 91 L 91 L 05/31/18 05:20 05/31/18 05:35 05/31/18 05:50 Temperature Pulse Rate 71 114 H 88 Respiratory Rate 17 19 20 Blood Pressure 126/60 133/60 145/67 H Pulse Oximetry 98 95 98 05/31/18 06:00 05/31/18 06:05 05/31/18 06:20 Temperature Pulse Rate 107 H 107 H 78 Respiratory Rate 39 H 24 19 Blood Pressure 133/61 162/70 H Pulse Oximetry 93 L 97 99 05/31/18 06:35 05/31/18 06:50 05/31/18 07:00 Temperature Pulse Rate 124 H Respiratory Rate 32 H 30 H Blood Pressure 173/67 H 169/71 H Pulse Oximetry 95 98 98 05/31/18 07:03 05/31/18 07:05 05/31/18 07:20 Temperature Pulse Rate 71 Respiratory Rate 18 Blood Pressure 115/54 L 94/42 L Pulse Oximetry 92 L 92 L 05/31/18 07:35 05/31/18 07:38 05/31/18 07:50 Temperature Pulse Rate 65 73 72 Respiratory Rate 18 19 18 Blood Pressure 73/38 L 122/53 L 97/49 L Pulse Oximetry 93 L 92 L 100 05/31/18 08:00 05/31/18 08:07 05/31/18 08:20 Temperature 97.6 F Pulse Rate 99 H 117 H 104 H Respiratory Rate 24 25 H 35 H Blood Pressure 145/63 H 142/63 H Pulse Oximetry 100 95 91 L 05/31/18 08:35 05/31/18 08:50 05/31/18 09:00 Temperature Pulse Rate 97 H 80 77 Respiratory Rate 21 18 17 Blood Pressure 121/56 L 118/55 L Pulse Oximetry 99 100 100 05/31/18 09:05 05/31/18 09:46 05/31/18 10:00 Temperature Pulse Rate 79 79 77 Respiratory Rate 18 17 16 Blood Pressure 127/59 L 134/62 Pulse Oximetry 100 100 99 05/31/18 11:00 05/31/18 12:00 05/31/18 12:05 Temperature Pulse Rate 59 L 96 H 84 Respiratory Rate 15 20 17 Blood Pressure 134/62 Pulse Oximetry 98 99 99 05/31/18 12:15 05/31/18 12:30 05/31/18 12:45 Temperature Pulse Rate 92 H 86 95 H Respiratory Rate 19 22 20 Blood Pressure 146/63 H 149/67 H 136/62 Pulse Oximetry 99 99 99 05/31/18 13:00 05/31/18 13:15 05/31/18 13:30 Temperature 98.8 F Pulse Rate 98 H 102 H 95 H Respiratory Rate 22 25 H 20 Blood Pressure 142/63 H 157/65 H 142/65 H Pulse Oximetry 97 92 L 99 05/31/18 13:45 05/31/18 14:00 05/31/18 14:15 Temperature Pulse Rate 100 H 114 H 82 Respiratory Rate 20 41 H 18 Blood Pressure 144/65 H 164/73 H 138/62 Pulse Oximetry 99 83 L 100 05/31/18 14:30 05/31/18 14:45 05/31/18 15:00 Temperature Pulse Rate 92 H 94 H 78 Respiratory Rate 17 22 16 Blood Pressure 141/65 H 135/56 L 139/60 Pulse Oximetry 100 98 100 05/31/18 15:15 05/31/18 15:30 05/31/18 15:45 Temperature Pulse Rate 87 98 H 94 H Respiratory Rate 18 24 19 Blood Pressure 132/60 160/65 H 151/65 H Pulse Oximetry 100 99 100 05/31/18 16:00 05/31/18 16:15 05/31/18 16:30 Temperature 98.1 F Pulse Rate 84 88 89 Respiratory Rate 20 21 25 H Blood Pressure 133/63 151/63 H Pulse Oximetry 100 100 100 05/31/18 16:45 05/31/18 17:00 05/31/18 17:15 Temperature Pulse Rate 97 H 104 H 115 H Respiratory Rate 19 18 29 H Blood Pressure 149/67 H 175/72 H 197/84 H Pulse Oximetry 100 100 98 05/31/18 17:30 05/31/18 17:45 05/31/18 18:00 Temperature Pulse Rate 97 H 103 H 90 Respiratory Rate 21 23 18 Blood Pressure 143/63 H 156/65 H 134/60 Pulse Oximetry 99 100 100 05/31/18 18:15 05/31/18 18:30 05/31/18 18:45 Temperature Pulse Rate 101 H 92 H 113 H Respiratory Rate 20 20 28 H Blood Pressure 139/60 137/65 128/66 Pulse Oximetry 100 99 94 L Intake & Output 05/30/18 05/31/18 05/31/18 18:59 06:59 18:59 Intake Total 750 / 750 1761.2 / 1761.2 1000 / 1000 Output Total 1600 / 1600 300 / 300 Balance -850 / -850 1461.2 / 1461.2 1000 / 1000 Weight 53.9 kg Intake: IV 750 / 750 1761.2 / 1761.2 1000 / 1000 NS Inj 1,000 ML @ 84 mls/hr IV. 1000 / 1000 1000 / 1000 CONT .[id number] [facility] Rx#:[id number] Cardene Inj 25 MG In NS Inj 240 750 / 750 250 / 250 ML @ 5 MG/HR 50 mls/hr IV.CONT TITRATE PRN Rx#:[id number] MVI-12 Inj 10 ML Thiamine Inj 511.2 / 511.2 100 MG Folvite Inj 1 MG In NS Inj 500 ML @ 125 mls/hr IV.SIG Q24H [facility] Rx#:[id number] Output: Urine 1600 / 1600 300 / 300 Other: Date of Last Bowel Movement 05/30/18 05/30/18 05/30/18 <Duke Palacios - Last Filed: 05/31/18 18:57> Vital signs: Vital Signs 05/30/18 11:30 05/30/18 11:59 05/30/18 12:00 Temperature Pulse Rate 65 93 H 86 Respiratory Rate 31 H 44 H 38 H Blood Pressure 123/58 L 134/62 132/62 Pulse Oximetry 95 92 L 92 L 05/30/18 12:15 05/30/18 12:30 05/30/18 12:45 Temperature Pulse Rate 106 H 94 H 120 H Respiratory Rate 43 H 36 H 44 H Blood Pressure 147/66 H 141/60 H 137/61 Pulse Oximetry 93 L 93 L 92 L 05/30/18 13:00 05/30/18 13:15 05/30/18 13:30 Temperature Pulse Rate 89 92 H 94 H Respiratory Rate 45 H 45 H 38 H Blood Pressure 128/79 160/69 H 133/60 Pulse Oximetry 93 L 93 L 93 L 05/30/18 13:45 05/30/18 14:00 05/30/18 14:09 Temperature Pulse Rate 100 H 104 H 101 H Respiratory Rate 44 H 42 H 37 H Blood Pressure 155/63 H 167/72 H 145/65 H Pulse Oximetry 93 L 94 L 93 L 05/30/18 14:15 05/30/18 14:30 05/30/18 14:39 Temperature Pulse Rate 106 H 89 74 Respiratory Rate 51 H 28 H 17 Blood Pressure 169/81 H 143/109 H 141/64 H Pulse Oximetry 94 L 93 L 93 L 05/30/18 14:45 05/30/18 15:00 05/30/18 15:15 Temperature Pulse Rate 80 100 H 69 Respiratory Rate 26 H 42 H 40 H Blood Pressure 142/86 H 150/71 H 191/88 H Pulse Oximetry 94 L 94 L 93 L 05/30/18 15:27 05/30/18 15:30 05/30/18 15:45 Temperature Pulse Rate 80 89 101 H Respiratory Rate 36 H 51 H 46 H Blood Pressure 158/80 H 176/95 H 205/99 H Pulse Oximetry 93 L 94 L 94 L 05/30/18 15:46 05/30/18 15:49 05/30/18 15:52 Temperature Pulse Rate 106 H Respiratory Rate 48 H 58 H 38 H Blood Pressure 205/108 H 197/116 H 192/89 H Pulse Oximetry 94 L 95 94 L 05/30/18 15:56 05/30/18 15:57 05/30/18 16:00 Temperature Pulse Rate 104 H 104 H Respiratory Rate 45 H 40 H 49 H Blood Pressure 219/95 H 207/95 H Pulse Oximetry 92 L 93 L 93 L 05/30/18 16:05 05/30/18 17:00 05/30/18 18:00 Temperature Pulse Rate 138 H 105 H 106 H Respiratory Rate 56 H 42 H 40 H Blood Pressure 159/73 H Pulse Oximetry 91 L 91 L 05/30/18 18:10 05/30/18 19:00 05/30/18 19:30 Temperature Pulse Rate 102 H 99 H 92 H Respiratory Rate 48 H 39 H 40 H Blood Pressure 137/82 144/67 H Pulse Oximetry 91 L 91 L 91 L 05/30/18 19:35 05/30/18 19:50 05/30/18 20:00 Temperature 99.5 F Pulse Rate 107 H 105 H 100 H Respiratory Rate 39 H 42 H 35 H Blood Pressure 141/67 H 154/67 H Pulse Oximetry 91 L 95 95 05/30/18 20:05 05/30/18 20:18 05/30/18 20:20 Temperature Pulse Rate 93 H 100 H Respiratory Rate 34 H 39 H Blood Pressure 142/64 H 148/65 H Pulse Oximetry 95 93 L 92 L 05/30/18 20:35 05/30/18 20:50 05/30/18 21:00 Temperature Pulse Rate 86 93 H 74 Respiratory Rate 30 H 34 H 30 H Blood Pressure 119/53 L 119/58 L Pulse Oximetry 93 L 93 L 96 05/30/18 21:05 05/30/18 21:20 05/30/18 21:35 Temperature Pulse Rate 65 69 60 Respiratory Rate 31 H 28 H 22 Blood Pressure 99/48 L 116/53 L 92/51 L Pulse Oximetry 96 94 L 92 L 05/30/18 21:50 05/30/18 22:00 05/30/18 22:05 Temperature Pulse Rate 55 L 60 70 Respiratory Rate 27 H 20 26 H Blood Pressure 81/42 L 71/48 L Pulse Oximetry 96 95 93 L 05/30/18 22:20 05/30/18 22:35 05/30/18 22:50 Temperature Pulse Rate 87 Respiratory Rate 38 H 25 H Blood Pressure 137/64 118/57 L 134/65 Pulse Oximetry 92 L 92 L 94 L 05/30/18 23:00 05/30/18 23:05 05/30/18 23:20 Temperature Pulse Rate 104 H Respiratory Rate 29 H 33 H 21 Blood Pressure 145/65 H 161/68 H Pulse Oximetry 95 95 95 05/30/18 23:35 05/30/18 23:50 05/31/18 00:00 Temperature 98.4 F Pulse Rate 120 H 115 H 81 Respiratory Rate 36 H 41 H 22 Blood Pressure 159/65 H 169/68 H Pulse Oximetry 93 L 93 L 94 L 05/31/18 00:05 05/31/18 00:20 05/31/18 00:35 Temperature Pulse Rate 71 82 72 Respiratory Rate 23 33 H 24 Blood Pressure 80/43 L 105/51 L 93/46 L Pulse Oximetry 96 97 96 05/31/18 00:50 05/31/18 01:00 05/31/18 01:05 Temperature Pulse Rate 67 65 65 Respiratory Rate 48 H 29 H 31 H Blood Pressure 97/53 L 94/55 L Pulse Oximetry 91 L 93 L 92 L 05/31/18 01:20 05/31/18 01:35 05/31/18 01:50 Temperature Pulse Rate 69 69 73 Respiratory Rate 24 28 H 24 Blood Pressure 103/54 L 107/56 L 106/52 L Pulse Oximetry 96 96 95 05/31/18 02:00 05/31/18 02:05 05/31/18 02:20 Temperature Pulse Rate 74 75 60 Respiratory Rate 21 28 H 41 H Blood Pressure 109/53 L 89/44 L Pulse Oximetry 97 96 95 05/31/18 02:22 05/31/18 02:35 05/31/18 02:50 Temperature Pulse Rate 60 78 60 Respiratory Rate 32 H 24 17 Blood Pressure 112/57 L 125/79 106/51 L Pulse Oximetry 95 97 98 05/31/18 03:00 05/31/18 03:09 05/31/18 03:20 Temperature Pulse Rate 57 L 87 Respiratory Rate 18 30 H 25 H Blood Pressure 116/55 L 140/62 Pulse Oximetry 98 100 96 05/31/18 03:35 05/31/18 03:50 05/31/18 04:00 Temperature 97.6 F Pulse Rate 70 94 H Respiratory Rate 23 26 H Blood Pressure 130/62 135/88 Pulse Oximetry 96 93 L 89 L 05/31/18 04:05 05/31/18 04:12 05/31/18 04:20 Temperature Pulse Rate 75 108 H 94 H Respiratory Rate 18 30 H 24 Blood Pressure 203/134 H 141/65 H 128/53 L Pulse Oximetry 95 92 L 94 L 05/31/18 04:35 05/31/18 04:50 05/31/18 05:00 Temperature Pulse Rate 82 70 70 Respiratory Rate 21 19 19 Blood Pressure 116/57 L 94/46 L Pulse Oximetry 95 90 L 91 L 05/31/18 05:05 05/31/18 05:20 05/31/18 05:35 Temperature Pulse Rate 70 71 114 H Respiratory Rate 18 17 19 Blood Pressure 106/55 L 126/60 133/60 Pulse Oximetry 91 L 98 95 05/31/18 05:50 05/31/18 06:00 05/31/18 06:05 Temperature Pulse Rate 88 107 H 107 H Respiratory Rate 20 39 H 24 Blood Pressure 145/67 H 133/61 Pulse Oximetry 98 93 L 97 05/31/18 06:20 05/31/18 06:35 05/31/18 06:50 Temperature Pulse Rate 78 124 H Respiratory Rate 19 32 H 30 H Blood Pressure 162/70 H 173/67 H 169/71 H Pulse Oximetry 99 95 98 05/31/18 07:00 05/31/18 07:03 05/31/18 07:05 Temperature Pulse Rate Respiratory Rate Blood Pressure 115/54 L Pulse Oximetry 98 92 L 05/31/18 07:20 05/31/18 07:35 05/31/18 07:38 Temperature Pulse Rate 71 65 73 Respiratory Rate 18 18 19 Blood Pressure 94/42 L 73/38 L 122/53 L Pulse Oximetry 92 L 93 L 92 L 05/31/18 07:50 05/31/18 08:00 05/31/18 08:07 Temperature 97.6 F Pulse Rate 72 99 H 117 H Respiratory Rate 18 24 25 H Blood Pressure 97/49 L 145/63 H Pulse Oximetry 100 100 95 05/31/18 08:20 05/31/18 08:35 05/31/18 08:50 Temperature Pulse Rate 104 H 97 H 80 Respiratory Rate 35 H 21 18 Blood Pressure 142/63 H 121/56 L 118/55 L Pulse Oximetry 91 L 99 100 05/31/18 09:00 05/31/18 09:05 05/31/18 09:46 Temperature Pulse Rate 77 79 79 Respiratory Rate 17 18 17 Blood Pressure 127/59 L 134/62 Pulse Oximetry 100 100 100 05/31/18 10:00 05/31/18 11:00 Temperature Pulse Rate 77 59 L Respiratory Rate 16 15 Blood Pressure Pulse Oximetry 99 98 Intake & Output 05/30/18 05/31/18 05/31/18 18:59 06:59 18:59 Intake Total 750 / 750 1761.2 / 1761.2 1000 / 1000 Output Total 1600 / 1600 300 / 300 Balance -850 / -850 1461.2 / 1461.2 1000 / 1000 Weight 53.9 kg Intake: IV 750 / 750 1761.2 / 1761.2 1000 / 1000 NS Inj 1,000 ML @ 84 mls/hr IV. 1000 / 1000 1000 / 1000 CONT .[id number] [facility] Rx#:[id number] Cardene Inj 25 MG In NS Inj 240 750 / 750 250 / 250 ML @ 5 MG/HR 50 mls/hr IV.CONT TITRATE PRN Rx#:[id number] MVI-12 Inj 10 ML Thiamine Inj 511.2 / 511.2 100 MG Folvite Inj 1 MG In NS Inj 500 ML @ 125 mls/hr IV.SIG Q24H [facility] Rx#:[id number] Output: Urine 1600 / 1600 300 / 300 Other: Date of Last Bowel Movement 05/30/18 05/30/18 05/30/18 Narrative: Drowsy, medicated with sedatives. currently not following commands pupils equal reactive moving extremities intermittently - Urinary Catheter Management Female External Cath placed during this visit: no Reason for continuing: Not indwelling catheter <Samanta Banda - Last Filed: 06/01/18 11:50> Assessment and Plan - Attending Attestation I have personally seen and examined the patient, reviewed pertinent labs and imaging studies. I agree with Ms. Banda's assessment as well as plan of care. 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 hemorrhagic mass Will follow with you 05/30/18: cont neuro checks in ICU Dr. 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 Palacios NPO MN monday cont hold Plavix dw nursing avoid over sedation will follow <Samanta Banda - Last Filed: 06/01/18 11:50>
--- NOTE | 2018-05-31 12:48 | P.PNCC ---
Subjective Subjective Remarks/Hospital Course: Patient is a 78-year-old female with past medical history significant for hypertension, peripheral arterial disease, history of vascular intervention/ stenting, arthritis who presented to the [facility] with mostly nonspecific complaints of memory loss and hallucinations for 1 week and worsening tremors of the right arm. Further workup in the emergency department showed subacute intraventricular hemorrhage into the left lateral ventricle and a focal thrombus that may be obstructing foramina of [place]. There was enlargement of the left lateral ventricle compared to the prior MRI. Also trace blood in the occipital horn of left lateral ventricle. With evidence of intraventricular hemorrhage patient was transferred emergently to [facility] for neurosurgery consult. I evaluated the patient after arrival to the ICU. Patient is profoundly hypertensive systolic blood pressure 190-200. IV labetalol 20 mg IV push given followed by Cardene infusion started. On exam patient did not appear to be in distress. No definite focal deficit however patient is oriented only to person. Reviewed CT scan with neurosurgery Dr. Palacios. On his review CT shows 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 hemorrhagic mass at foramen of Bell with asymmetric left sided ventricular dilatation. Stat MRI of the brain with and without contrast ordered. Started on Cardene infusion with target systolic blood pressure less than 140 SUBJ 05/30/18: MRI brain showed 2.3 x 1.7 cm mass within the body of the left lateral ventricle measuring 2.3 x 1.7 cm left lateral ventricle is prominent may be related to production of CSF from this mass. 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 Additional mass in the cerebellopontine angle on the left compressing upon the brainstem measuring 1.8 x 1.4 cm. Slightly more agitated and confused today. Partly secondary to mass partly could be alcohol withdrawal. Placed on as needed Haldol 05/31: Patient remains sedated received Ativan a few hours before. Currently for that reason Precedex is being held. Wakes up follows some commands. Oriented to person only. Plan for craniotomy and resection of intraventricular mass scheduled tentatively for Monday. Ct chest: 1.6 x 1.1 cm spiculated RUL nodule concerning for metastasis or primary lung malignancy. 1.1 x 1.4 cm soft tissue density inferior lateral margin of the right breast implant ?focal disruption vs breast mass. CT abdomen pelvis: 1.3 cm left adrenal mass concerning for metastatic disease given findings of brain and lung mass. 1.6 cm indeterminate low-density lesion in the posterior right lobe of the liver with numerous additional subcentimeter hypodense lesions which are too small to fully characterize. Metastatic disease cannot be entirely excluded, possibly cysts. Objective Vital Signs / I&O: Vital Signs 05/30/18 13:00 05/30/18 13:15 05/30/18 13:30 Temperature Pulse Rate 89 92 H 94 H Respiratory Rate 45 H 45 H 38 H Blood Pressure 128/79 160/69 H 133/60 Pulse Oximetry 93 L 93 L 93 L 05/30/18 13:45 05/30/18 14:00 05/30/18 14:09 Temperature Pulse Rate 100 H 104 H 101 H Respiratory Rate 44 H 42 H 37 H Blood Pressure 155/63 H 167/72 H 145/65 H Pulse Oximetry 93 L 94 L 93 L 05/30/18 14:15 05/30/18 14:30 05/30/18 14:39 Temperature Pulse Rate 106 H 89 74 Respiratory Rate 51 H 28 H 17 Blood Pressure 169/81 H 143/109 H 141/64 H Pulse Oximetry 94 L 93 L 93 L 05/30/18 14:45 05/30/18 15:00 05/30/18 15:15 Temperature Pulse Rate 80 100 H 69 Respiratory Rate 26 H 42 H 40 H Blood Pressure 142/86 H 150/71 H 191/88 H Pulse Oximetry 94 L 94 L 93 L 05/30/18 15:27 05/30/18 15:30 05/30/18 15:45 Temperature Pulse Rate 80 89 101 H Respiratory Rate 36 H 51 H 46 H Blood Pressure 158/80 H 176/95 H 205/99 H Pulse Oximetry 93 L 94 L 94 L 05/30/18 15:46 05/30/18 15:49 05/30/18 15:52 Temperature Pulse Rate 106 H Respiratory Rate 48 H 58 H 38 H Blood Pressure 205/108 H 197/116 H 192/89 H Pulse Oximetry 94 L 95 94 L 05/30/18 15:56 05/30/18 15:57 05/30/18 16:00 Temperature Pulse Rate 104 H 104 H Respiratory Rate 45 H 40 H 49 H Blood Pressure 219/95 H 207/95 H Pulse Oximetry 92 L 93 L 93 L 05/30/18 16:05 05/30/18 17:00 05/30/18 18:00 Temperature Pulse Rate 138 H 105 H 106 H Respiratory Rate 56 H 42 H 40 H Blood Pressure 159/73 H Pulse Oximetry 91 L 91 L 05/30/18 18:10 05/30/18 19:00 05/30/18 19:30 Temperature Pulse Rate 102 H 99 H 92 H Respiratory Rate 48 H 39 H 40 H Blood Pressure 137/82 144/67 H Pulse Oximetry 91 L 91 L 91 L 05/30/18 19:35 05/30/18 19:50 05/30/18 20:00 Temperature 99.5 F Pulse Rate 107 H 105 H 100 H Respiratory Rate 39 H 42 H 35 H Blood Pressure 141/67 H 154/67 H Pulse Oximetry 91 L 95 95 05/30/18 20:05 05/30/18 20:18 05/30/18 20:20 Temperature Pulse Rate 93 H 100 H Respiratory Rate 34 H 39 H Blood Pressure 142/64 H 148/65 H Pulse Oximetry 95 93 L 92 L 05/30/18 20:35 05/30/18 20:50 05/30/18 21:00 Temperature Pulse Rate 86 93 H 74 Respiratory Rate 30 H 34 H 30 H Blood Pressure 119/53 L 119/58 L Pulse Oximetry 93 L 93 L 96 05/30/18 21:05 05/30/18 21:20 05/30/18 21:35 Temperature Pulse Rate 65 69 60 Respiratory Rate 31 H 28 H 22 Blood Pressure 99/48 L 116/53 L 92/51 L Pulse Oximetry 96 94 L 92 L 05/30/18 21:50 05/30/18 22:00 05/30/18 22:05 Temperature Pulse Rate 55 L 60 70 Respiratory Rate 27 H 20 26 H Blood Pressure 81/42 L 71/48 L Pulse Oximetry 96 95 93 L 05/30/18 22:20 05/30/18 22:35 05/30/18 22:50 Temperature Pulse Rate 87 Respiratory Rate 38 H 25 H Blood Pressure 137/64 118/57 L 134/65 Pulse Oximetry 92 L 92 L 94 L 05/30/18 23:00 05/30/18 23:05 05/30/18 23:20 Temperature Pulse Rate 104 H Respiratory Rate 29 H 33 H 21 Blood Pressure 145/65 H 161/68 H Pulse Oximetry 95 95 95 05/30/18 23:35 05/30/18 23:50 05/31/18 00:00 Temperature 98.4 F Pulse Rate 120 H 115 H 81 Respiratory Rate 36 H 41 H 22 Blood Pressure 159/65 H 169/68 H Pulse Oximetry 93 L 93 L 94 L 05/31/18 00:05 05/31/18 00:20 05/31/18 00:35 Temperature Pulse Rate 71 82 72 Respiratory Rate 23 33 H 24 Blood Pressure 80/43 L 105/51 L 93/46 L Pulse Oximetry 96 97 96 05/31/18 00:50 05/31/18 01:00 05/31/18 01:05 Temperature Pulse Rate 67 65 65 Respiratory Rate 48 H 29 H 31 H Blood Pressure 97/53 L 94/55 L Pulse Oximetry 91 L 93 L 92 L 05/31/18 01:20 05/31/18 01:35 05/31/18 01:50 Temperature Pulse Rate 69 69 73 Respiratory Rate 24 28 H 24 Blood Pressure 103/54 L 107/56 L 106/52 L Pulse Oximetry 96 96 95 05/31/18 02:00 05/31/18 02:05 05/31/18 02:20 Temperature Pulse Rate 74 75 60 Respiratory Rate 21 28 H 41 H Blood Pressure 109/53 L 89/44 L Pulse Oximetry 97 96 95 05/31/18 02:22 05/31/18 02:35 05/31/18 02:50 Temperature Pulse Rate 60 78 60 Respiratory Rate 32 H 24 17 Blood Pressure 112/57 L 125/79 106/51 L Pulse Oximetry 95 97 98 05/31/18 03:00 05/31/18 03:09 05/31/18 03:20 Temperature Pulse Rate 57 L 87 Respiratory Rate 18 30 H 25 H Blood Pressure 116/55 L 140/62 Pulse Oximetry 98 100 96 05/31/18 03:35 05/31/18 03:50 05/31/18 04:00 Temperature 97.6 F Pulse Rate 70 94 H Respiratory Rate 23 26 H Blood Pressure 130/62 135/88 Pulse Oximetry 96 93 L 89 L 05/31/18 04:05 05/31/18 04:12 05/31/18 04:20 Temperature Pulse Rate 75 108 H 94 H Respiratory Rate 18 30 H 24 Blood Pressure 203/134 H 141/65 H 128/53 L Pulse Oximetry 95 92 L 94 L 05/31/18 04:35 05/31/18 04:50 05/31/18 05:00 Temperature Pulse Rate 82 70 70 Respiratory Rate 21 19 19 Blood Pressure 116/57 L 94/46 L Pulse Oximetry 95 90 L 91 L 05/31/18 05:05 05/31/18 05:20 05/31/18 05:35 Temperature Pulse Rate 70 71 114 H Respiratory Rate 18 17 19 Blood Pressure 106/55 L 126/60 133/60 Pulse Oximetry 91 L 98 95 05/31/18 05:50 05/31/18 06:00 05/31/18 06:05 Temperature Pulse Rate 88 107 H 107 H Respiratory Rate 20 39 H 24 Blood Pressure 145/67 H 133/61 Pulse Oximetry 98 93 L 97 05/31/18 06:20 05/31/18 06:35 05/31/18 06:50 Temperature Pulse Rate 78 124 H Respiratory Rate 19 32 H 30 H Blood Pressure 162/70 H 173/67 H 169/71 H Pulse Oximetry 99 95 98 05/31/18 07:00 05/31/18 07:03 05/31/18 07:05 Temperature Pulse Rate Respiratory Rate Blood Pressure 115/54 L Pulse Oximetry 98 92 L 05/31/18 07:20 05/31/18 07:35 05/31/18 07:38 Temperature Pulse Rate 71 65 73 Respiratory Rate 18 18 19 Blood Pressure 94/42 L 73/38 L 122/53 L Pulse Oximetry 92 L 93 L 92 L 05/31/18 07:50 05/31/18 08:00 05/31/18 08:07 Temperature 97.6 F Pulse Rate 72 99 H 117 H Respiratory Rate 18 24 25 H Blood Pressure 97/49 L 145/63 H Pulse Oximetry 100 100 95 05/31/18 08:20 05/31/18 08:35 05/31/18 08:50 Temperature Pulse Rate 104 H 97 H 80 Respiratory Rate 35 H 21 18 Blood Pressure 142/63 H 121/56 L 118/55 L Pulse Oximetry 91 L 99 100 05/31/18 09:00 05/31/18 09:05 05/31/18 09:46 Temperature Pulse Rate 77 79 79 Respiratory Rate 17 18 17 Blood Pressure 127/59 L 134/62 Pulse Oximetry 100 100 100 05/31/18 10:00 05/31/18 11:00 Temperature Pulse Rate 77 59 L Respiratory Rate 16 15 Blood Pressure Pulse Oximetry 99 98 Intake & Output 05/30/18 05/31/18 05/31/18 18:59 06:59 18:59 Intake Total 750 / 750 1761.2 / 1761.2 1000 / 1000 Output Total 1600 / 1600 300 / 300 Balance -850 / -850 1461.2 / 1461.2 1000 / 1000 Weight 53.9 kg Intake: IV 750 / 750 1761.2 / 1761.2 1000 / 1000 NS Inj 1,000 ML @ 84 mls/hr IV. 1000 / 1000 1000 / 1000 CONT .[id number] [facility] Rx#:[id number] Cardene Inj 25 MG In NS Inj 240 750 / 750 250 / 250 ML @ 5 MG/HR 50 mls/hr IV.CONT TITRATE PRN Rx#:[id number] MVI-12 Inj 10 ML Thiamine Inj 511.2 / 511.2 100 MG Folvite Inj 1 MG In NS Inj 500 ML @ 125 mls/hr IV.SIG Q24H [facility] Rx#:[id number] Output: Urine 1600 / 1600 300 / 300 Other: Date of Last Bowel Movement 05/30/18 05/30/18 05/30/18 Result Diagrams: 05/30/18 09:08 05/30/18 04:15 Objective Remarks: - Constitutional Lying in bed oriented to person only. Somnolent from receiving Ativan - HEENT Exam Normocephalic, atraumatic. ALEXYS - Neck Exam supple, full ROM, trachea midline - Respiratory Exam CTA bilaterally. No wheezes or crackles -Chest/breast exam: With CT report concerning for breast mass, I performed a breast exam with JESSICA Maldonado at the bedside. Unable to palpate discrete mass as the patient has breast implants - Cardiovascular Exam Hypertension currently on Cardene infusion. S1-S2 normal no murmurs - Abdominal Exam Soft, normoactive bowel sounds - Extremities Exam Pulses intact, normal capillary refill - Neurological Exam More somnolent today but from receiving Ativan but wakes up easily oriented to person. Moves all 4 extremities equally follows commands no focal deficits. Intermittently agitated and confused Assessment and Plan - Problem List (1) Intraventricular hemorrhage, nontraumatic Code(s): I61.5 - Nontraumatic intracerebral hemorrhage, intraventricular Status: Acute (2) Hypertensive emergency Code(s): I16.1 - Hypertensive emergency Status: Acute (3) Metabolic encephalopathy Code(s): G93.41 - Metabolic encephalopathy Status: Acute (4) Altered mental status Code(s): R41.82 - Altered mental status, unspecified Status: Acute (5) History of peripheral arterial disease Code(s): Z86.79 - Personal history of other diseases of the circulatory system Status: Chronic (6) History of hypertension Code(s): Z86.79 - Personal history of other diseases of the circulatory system Status: Chronic (7) Cessation of tobacco use in previous 12 months Code(s): Z87.891 - Personal history of nicotine dependence Status: Chronic - Assessment and Plan Plan: NEURO: Intraventricular hemorrhage vs. 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 -Additional tumor at the cerebellopontine angle likely vascular ectasia-CT angiogram ordered pending -Plan for craniotomy and resection of intraventricular mass Monday (Plavix held for 7 days prior to surgery) -Oncology consult, also CT chest abdomen pelvis -right upper lobe mass with probable adrenal metastases cannot rule out liver metastases -Tight blood pressure control with Cardene and IV labetalol as needed -Keep systolic blood pressure less than 150 -Supplement multivitamin thiamine given daily alcohol use -Watch closely for alcohol withdrawal -Her confusional delirium at least partly related to alcohol withdrawal also likely from mass effect ? Hydrocephalus -Use Precedex for agitation RESP: Previous tobacco use -DuoNeb every 6 hours scheduled and as needed -Pulmonology consulted for right upper lobe mass concerning for primary malignancy, with adrenal mass CV: Hypertensive emergency History of hypertension Peripheral arterial disease -Normal saline IV fluids 84 mL/h -Cardene infusion and, IV labetalol as needed for systolic blood pressure less than 150 -Continue home enalapril and amlodipine, continue statin -Metoprolol 50 mg twice daily -Holding Plavix GI: -Diet per speech recommendation, IV famotidine : -Monitor renal function closely. 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 Avoid chemical DVT prophylaxis until cleared by neurosurgery/famotidine LINES: -Utilize peripheral IVs, central line if needed CC time 35 min
[2018-05-31] MEDS: Multivitamin Inj 10 ML, Thiamine Inj 100 MG, Folic Acid Inj 1 MG in Sodium Chlor 0.9% I... IV.SIG SCH (18:49)
--- NOTE | 2018-05-31 21:36 | CT ---
EXAM DATE: 05/31/2018 9:30 PM EST AGE/SEX: 78 years / Female INDICATIONS: Evaluate basilar artery. CLINICAL DATA: This is the patient's initial encounter. Patient reports that signs and symptoms have been present for 1 day and indicates a pain score of Nonresponsive. MEDICAL/SURGICAL HISTORY: . Intracerebral hemorrhage. Non-responsive. RADIATION DOSE: 17.84 CTDI (mGy) COMPARISON: [facility] [place], MR HEAD W & W/O CONTRAST, 05/29/2018. . TECHNIQUE: Volumetric scanning was performed using a multi-row detector CT scanner during bolus infu maurice of 74 ml Omnipaque 350 (iohexol) nonionic water-soluble contrast as a single exam dose. The d jose was post processed with a variety of visualization algorithms including full volume maximum inten sity projection, multi-planar sliding thin slab reformation, curved planar reformation, and surface r endering techniques. Using automated exposure control and adjustment of the mA and/or kV according t o patient size, radiation dose was kept as low as reasonably achievable to obtain optimal diagnostic quality images. DICOM format image data is available electronically for review and comparison. FINDINGS: There is excellent visualization of the major intracranial arteries out to the second-order branch ve ssels. There is no evidence for aneurysm, vessel truncation or stenosis, and no evidence for vascula r malformation. There is a hyperdense 2.2 cm mass left lateral ventricle anteriorly, with a small amount of intravent ricular hemorrhage layering in the posterior horns. CONCLUSION: 1. There is no evidence for intracranial aneurysm or stenosis. 2. Intraventricular mass as previously described. 3. There is no evidence for mass at the cerebellopontine angle. The finding on the recent MRI was shannan polk related to pulsation artifact in this region. . Electronically signed by: Jeff More MD Board Certified Radiologist 05/31/2018 9:35 PM EST
--- NOTE | 2018-05-31 21:36 | MB ---
cc: Kelly Evans MD DATE: 05/31/2018 REASON FOR CONSULTATION: Right lung nodule. HISTORY OF PRESENT ILLNESS: This is a 78-year-old lady who was transferred to [facility] with a history of altered mental status, worsening tremor of the right arm and a subacute intraventricular hemorrhage with possible thrombus. The patient had an MRI of the head, which apparently showed a 2.3 x 1.7 cm mass within the lateral left ventricle and a differential included ependymoma versus an intraventricular mass. There was another mass in the cerebellopontine angle on the left, compressing the brainstem measuring 1.8 cm x 1.4 cm. There was some chronic ischemic vasculopathy noted. CT of the chest was also done, which demonstrated a spiculated 1.5 spiculated 1.6 x 1.1 cm nodule in the right upper lobe and 3 mm subpleural nodules in the superior segment of the left lower lobe and some airspace consolidation of the right lung base and mild consolidation of the left lung base. The patient has been on oxygen at 3 liters. She has a cough. She has mild wheezing. Denies chest pain. She is somewhat disoriented and does not give any proper history or details of her complaints. There is no history of fever or chills or hemoptysis or recent weight loss. PAST MEDICAL HISTORY: Includes vascular intervention for peripheral vascular disease and a history for hypertension. ALLERGIES: No significant drug allergies. MEDICATIONS: 1. Amlodipine 5 mg a day. 2. Plavix 75 mg daily. 3. Lisinopril 40 mg daily. 4. Pravastatin 40 mg a day. HABITS: The patient was a smoker for over 20 years, about a pack per day. He denies significant alcohol use. REVIEW OF SYSTEMS: The patient is unable to provide any significant complaints or details. PHYSICAL EXAMINATION: GENERAL: This is an averagely built, elderly lady, who is lying flat, in no acute distress. Mild pallor, no cyanosis, no clubbing or peripheral edema. VITAL SIGNS: Blood pressure 140/70, pulse is 92, respirations 20, temperature 97.8. HEENT: Head is normocephalic. Pupils are reactive and equal. Tongue is moist. Nasal mucosa edematous. . Throat was dry. Ears, no inflammation. NECK: Supple, no bruits. No thyroid enlargement or lymphadenopathy. CHEST: Equal movements with few coarse wheezes in the upper lung wasserman. There are occasional bibasilar crackles. HEART: Heart sounds are regular, S1 and S2 with no murmur. No S3. ABDOMEN: Soft, scaphoid, without masses. No organomegaly or tenderness. Bowel sounds are active. EXTREMITIES: Muscle wasting. No edema. Peripheral pulses are diminished. The patient does move all her extremities with no gross motor deficits. RECTAL: Deferred. SKIN: Dry and scaly. ASSESSMENT AND PLAN: 1. Right upper lobe lung nodule, rule out malignancy. 2. Chronic obstructive pulmonary disease. 3. 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 4. Encephalopathy. 5. Hypertension. PLAN: The patient is being evaluated by neurosurgery. We will also place her on DuoNeb every 6 hours p.r.n. for wheezing, oxygen supplementation at 2-3 liters to keep saturations over 92. Blood gas study will be obtained, and the patient will have a followup chest x-ray to see if she has developed any further consolidation in the lower lobes. Continue with antibiotic therapy as ordered. We will watch her condition in the intensive care unit and once she is clinically stable, she could possibly be considered for a CT-guided needle biopsy of the lung nodule and s PET CT as well. I will discuss the case with you, Dr. Saab. Thank you for this consultation. MD ROSY Ochoa/aga , 06:54 PM , 07:07 PM
--- NOTE | 2018-05-31 22:25 | MG ---
cc: Ab Patiño MD ELECTROENCEPHALOGRAM RECORD NUMBER: [id number] DESCRIPTION: A 5-6 Hz posterior rhythm, 10-30 microvolts. Generalized slowing and 1-3 Hz delta activity overlapping. Good EEG reactivity during arousal. Subtle focal slowing in left temporal region occasionally. Appearance of stage I and stage II sleep with spindles. Limited driving with photic stimulation. Single-lead EKG showing sinus rhythm. INTERPRETATION: Minimal encephalopathy in sleep state. Clinical correlation. MD SOURAV Kang/alicia , 10:10 PM , 10:14 PM
[2018-06-01] MEDS: niCARdipine Inj 25 MG in Sodium Chlor 0.9% Inj 240 ML IV.CONT PRN ×2 (02:07→16:51)
[2018-06-01] MEDS: Haloperidol Inj 5 MG/ML Ampul IV.PUSH PRN ×2 (03:04→15:57)
[2018-06-01 04:47] LABS: Hemoglobin 15.4 gm/dL (11.6-15.3); Mean Corpuscular HGB Conc 33.4 % (32.0-36.0); Mean Corpuscular Hemoglobin 33.6 pg (27.0-34.0); Mean Corpuscular Volume 100.4 fL (80.0-100.0); Mean Platelet Volume 7.7 fL (7.0-11.0); Red Blood Count 4.58 mil/mm3 (4.00-5.30); Red Cell Distribution Width 14.7 % (11.6-17.2); White Blood Count 19.3 th/mm3 (4.0-11.0)
[2018-06-01] MEDS: Dexmedetomidine Inj 200 MCG in Sodium Chlor 0.9% Inj 48 ML IV.CONT PRN ×2 (04:48→18:56)
[2018-06-01] MEDS: Chlorhexidine Gluconate 2% 1 Pack (2 Cloths) TOPICAL SCH (04:55)
[2018-06-01] MEDS: Sod Chloride 0.9% Inj 1,000 ML IV.CONT SCH ×4 (04:55→22:05)
[2018-06-01 05:26] LABS: Alanine Aminotransferase 32 U/L (10-53); Albumin 3.6 g/dL (3.4-5.0); Alkaline Phosphatase 113 U/L (45-117); Anion Gap 13 meq/L (5-15); Aspartate Aminotransferase 54 U/L (15-37); Blood Urea Nitrogen 8 mg/dL (7-18); Calcium 8.6 mg/dL (8.5-10.1); Carbon Dioxide 21.6 meq/L (21.0-32.0); Chloride 104 meq/L (98-107); Glomerular Filtration Rate Greater Than 89 mL/min (>89); Glucose,Random 102 mg/dL (74-106); Magnesium 1.8 mg/dL (1.5-2.5); Sodium 139 meq/L (136-145); Total Protein 8.2 g/dL (6.4-8.2)
[2018-06-01 05:36] LABS: Potassium 2.9 meq/L (3.5-5.1)
--- NOTE | 2018-06-01 05:45 | XR ---
EXAM DATE: 06/01/2018 5:41 AM EST AGE/SEX: 78 years / Female INDICATIONS: Infiltrate. CLINICAL DATA: This is the patient's subsequent encounter. Patient reports that signs and symptoms h ave been present for 4 - 6 days and indicates a pain score of Nonresponsive. MEDICAL/SURGICAL HISTORY: None. Breast augmentation. COMPARISON: [facility] – [place], CHEST 1V SINGLE AP, 05/29/2018. . FINDINGS: Single AP view the chest. Bilateral calcified breast implants. Lungs are clear. Cardiomediastinal edwin houette within normal limits. No evidence of pleural effusion or pneumothorax. CONCLUSION: No acute cardiopulmonary disease identified. Electronically signed by: Fernie Mustafa MD Board Certified Radiologist 06/01/2018 5:44 AM EST
[2018-06-01 07:18] LABS: Platelet Count 237 th/mm3 (150-450)
--- NOTE | 2018-06-01 08:07 | P.PNCC ---
Subjective Subjective Remarks/Hospital Course: Patient is a 78-year-old female with past medical history significant for hypertension, peripheral arterial disease, history of vascular intervention/ stenting, arthritis who presented to the [facility] with mostly nonspecific complaints of memory loss and hallucinations for 1 week and worsening tremors of the right arm. Further workup in the emergency department showed subacute intraventricular hemorrhage into the left lateral ventricle and a focal thrombus that may be obstructing foramina of [place]. There was enlargement of the left lateral ventricle compared to the prior MRI. Also trace blood in the occipital horn of left lateral ventricle. With evidence of intraventricular hemorrhage patient was transferred emergently to [facility] for neurosurgery consult. I evaluated the patient after arrival to the ICU. Patient is profoundly hypertensive systolic blood pressure 190-200. IV labetalol 20 mg IV push given followed by Cardene infusion started. On exam patient did not appear to be in distress. No definite focal deficit however patient is oriented only to person. Reviewed CT scan with neurosurgery Dr. Palacios. On his review CT shows 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 hemorrhagic mass at foramen of [place] with asymmetric left sided ventricular dilatation. Stat MRI of the brain with and without contrast ordered. Started on Cardene infusion with target systolic blood pressure less than 140 SUBJ 05/30/18: MRI brain showed 2.3 x 1.7 cm mass within the body of the left lateral ventricle measuring 2.3 x 1.7 cm left lateral ventricle is prominent may be related to production of CSF from this mass. 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 Additional mass in the cerebellopontine angle on the left compressing upon the brainstem measuring 1.8 x 1.4 cm. Slightly more agitated and confused today. Partly secondary to mass partly could be alcohol withdrawal. Placed on as needed Haldol 05/31: Patient remains sedated received Ativan a few hours before. Currently for that reason Precedex is being held. Wakes up follows some commands. Oriented to person only. Plan for craniotomy and resection of intraventricular mass scheduled tentatively for Monday. Ct chest: 1.6 x 1.1 cm spiculated RUL nodule concerning for metastasis or primary lung malignancy. 1.1 x 1.4 cm soft tissue density inferior lateral margin of the right breast implant ?focal disruption vs breast mass. CT abdomen pelvis: 1.3 cm left adrenal mass concerning for metastatic disease given findings of brain and lung mass. 1.6 cm indeterminate low-density lesion in the posterior right lobe of the liver with numerous additional subcentimeter hypodense lesions which are too small to fully characterize. Metastatic disease cannot be entirely excluded, possibly cysts. 06/01: Remains confused slightly agitated remains on Precedex. CT angiogram yesterday of the brain showed previously demonstrated intraventricular mass however no cerebellopontine angle mass. WBC count elevated to 19.1 no fever. Will check UA-previously ordered UA had not been done. Check blood cultures, chest x-ray is clear. Continue to hold Plavix Objective Vital Signs / I&O: Vital Signs 05/31/18 08:07 05/31/18 08:20 05/31/18 08:35 Temperature 97.6 F Pulse Rate 117 H 104 H 97 H Respiratory Rate 25 H 35 H 21 Blood Pressure 145/63 H 142/63 H 121/56 L Pulse Oximetry 95 91 L 99 05/31/18 08:50 05/31/18 09:00 05/31/18 09:05 Temperature Pulse Rate 80 77 79 Respiratory Rate 18 17 18 Blood Pressure 118/55 L 127/59 L Pulse Oximetry 100 100 100 05/31/18 09:46 05/31/18 10:00 05/31/18 11:00 Temperature Pulse Rate 79 77 59 L Respiratory Rate 17 16 15 Blood Pressure 134/62 Pulse Oximetry 100 99 98 05/31/18 12:00 05/31/18 12:05 05/31/18 12:15 Temperature Pulse Rate 96 H 84 92 H Respiratory Rate 20 17 19 Blood Pressure 134/62 146/63 H Pulse Oximetry 99 99 99 05/31/18 12:30 05/31/18 12:45 05/31/18 13:00 Temperature Pulse Rate 86 95 H 98 H Respiratory Rate 22 20 22 Blood Pressure 149/67 H 136/62 142/63 H Pulse Oximetry 99 99 97 05/31/18 13:15 05/31/18 13:30 05/31/18 13:45 Temperature 98.8 F Pulse Rate 102 H 95 H 100 H Respiratory Rate 25 H 20 20 Blood Pressure 157/65 H 142/65 H 144/65 H Pulse Oximetry 92 L 99 99 05/31/18 14:00 05/31/18 14:15 05/31/18 14:30 Temperature Pulse Rate 114 H 82 92 H Respiratory Rate 41 H 18 17 Blood Pressure 164/73 H 138/62 141/65 H Pulse Oximetry 83 L 100 100 05/31/18 14:45 05/31/18 15:00 05/31/18 15:15 Temperature Pulse Rate 94 H 78 87 Respiratory Rate 22 16 18 Blood Pressure 135/56 L 139/60 132/60 Pulse Oximetry 98 100 100 05/31/18 15:30 05/31/18 15:45 05/31/18 16:00 Temperature 98.1 F Pulse Rate 98 H 94 H 84 Respiratory Rate 24 19 20 Blood Pressure 160/65 H 151/65 H Pulse Oximetry 99 100 100 05/31/18 16:15 05/31/18 16:30 05/31/18 16:45 Temperature Pulse Rate 88 89 97 H Respiratory Rate 21 25 H 19 Blood Pressure 133/63 151/63 H 149/67 H Pulse Oximetry 100 100 100 05/31/18 17:00 05/31/18 17:15 05/31/18 17:30 Temperature Pulse Rate 104 H 115 H 97 H Respiratory Rate 18 29 H 21 Blood Pressure 175/72 H 197/84 H 143/63 H Pulse Oximetry 100 98 99 05/31/18 17:45 05/31/18 18:00 05/31/18 18:15 Temperature Pulse Rate 103 H 90 101 H Respiratory Rate 23 18 20 Blood Pressure 156/65 H 134/60 139/60 Pulse Oximetry 100 100 100 05/31/18 18:30 05/31/18 18:45 05/31/18 19:00 Temperature Pulse Rate 92 H 113 H 107 H Respiratory Rate 20 28 H 19 Blood Pressure 137/65 128/66 123/57 L Pulse Oximetry 99 94 L 100 05/31/18 19:15 05/31/18 19:30 05/31/18 19:38 Temperature 97.7 F Pulse Rate 74 60 82 Respiratory Rate 15 16 Blood Pressure 96/47 L 90/42 L Pulse Oximetry 100 100 05/31/18 19:45 05/31/18 20:00 05/31/18 20:15 Temperature Pulse Rate 71 76 84 Respiratory Rate 17 20 21 Blood Pressure 102/54 L 107/57 L 117/58 L Pulse Oximetry 100 95 100 05/31/18 20:29 05/31/18 20:30 05/31/18 20:45 Temperature Pulse Rate 79 81 82 Respiratory Rate 24 18 21 Blood Pressure 117/58 L 151/60 H 124/57 L Pulse Oximetry 94 L 97 100 05/31/18 21:00 05/31/18 21:15 05/31/18 21:30 Temperature Pulse Rate 78 101 H 85 Respiratory Rate 22 21 17 Blood Pressure 125/59 L 155/69 H 140/62 Pulse Oximetry 92 L 91 L 94 L 05/31/18 21:45 05/31/18 21:50 05/31/18 22:00 Temperature Pulse Rate 96 H 67 79 Respiratory Rate 23 21 Blood Pressure 126/62 132/56 L Pulse Oximetry 95 99 05/31/18 22:15 05/31/18 22:30 05/31/18 23:00 Temperature Pulse Rate 71 53 L 74 Respiratory Rate 18 16 23 Blood Pressure 128/60 129/60 141/64 H Pulse Oximetry 94 L 97 96 05/31/18 23:15 05/31/18 23:45 06/01/18 00:00 Temperature Pulse Rate 73 81 76 Respiratory Rate 23 24 23 Blood Pressure 130/58 L 141/72 H 164/73 H Pulse Oximetry 98 94 L 96 06/01/18 00:15 06/01/18 00:30 06/01/18 00:45 Temperature Pulse Rate 95 H 88 92 H Respiratory Rate 28 H 24 24 Blood Pressure 157/67 H 152/72 H 171/76 H Pulse Oximetry 95 96 98 06/01/18 01:00 06/01/18 01:15 06/01/18 01:30 Temperature Pulse Rate 89 92 H 101 H Respiratory Rate 25 H 22 29 H Blood Pressure 175/75 H 169/70 H 179/82 H Pulse Oximetry 97 98 91 L 06/01/18 01:37 06/01/18 01:39 06/01/18 01:40 Temperature Pulse Rate 96 H 102 H 94 H Respiratory Rate 28 H 26 H 25 H Blood Pressure 161/64 H 167/72 H 170/76 H Pulse Oximetry 83 L 94 L 98 06/01/18 01:45 06/01/18 02:00 06/01/18 02:15 Temperature Pulse Rate 99 H 96 H 100 H Respiratory Rate 30 H 28 H 28 H Blood Pressure 181/89 H 171/73 H 167/73 H Pulse Oximetry 97 93 L 95 06/01/18 02:30 06/01/18 02:45 06/01/18 03:00 Temperature Pulse Rate 123 H 114 H 108 H Respiratory Rate 30 H 34 H 26 H Blood Pressure 166/67 H 162/66 H 153/69 H Pulse Oximetry 91 L 91 L 92 L 06/01/18 03:15 06/01/18 03:30 06/01/18 03:45 Temperature Pulse Rate 114 H 119 H 126 H Respiratory Rate 28 H 27 H 32 H Blood Pressure 136/66 133/63 154/79 H Pulse Oximetry 94 L 96 95 06/01/18 04:00 06/01/18 04:15 06/01/18 04:30 Temperature 98.4 F Pulse Rate 125 H 118 H 121 H Respiratory Rate 33 H 35 H 31 H Blood Pressure 137/60 137/63 153/67 H Pulse Oximetry 93 L 94 L 96 06/01/18 04:45 06/01/18 05:30 06/01/18 05:45 Temperature Pulse Rate 119 H 96 H 73 Respiratory Rate 34 H 27 H 18 Blood Pressure 125/57 L 114/56 L 112/60 Pulse Oximetry 95 93 L 97 06/01/18 06:00 06/01/18 06:15 06/01/18 07:36 Temperature Pulse Rate 81 72 Respiratory Rate 20 17 Blood Pressure 106/53 L 122/56 L Pulse Oximetry 98 98 96 Intake & Output 05/31/18 06/01/18 06/01/18 18:59 06:59 18:59 Intake Total 1050 / 1050 1911.2 / 1911.2 Output Total 1000 / 1000 800 / 800 Balance 50 / 50 1111.2 / 1111.2 Weight 56.9 kg Intake: IV 1000 / 1000 1811.2 / 1811.2 Precedex Inj 200 MCG In NS Inj 50 / 50 48 ML @ 0.2 MCG/KG/HR 2.79 mls/ hr IV.CONT TITRATE PRN Rx#: [id number] NS Inj 1,000 ML @ 84 mls/hr IV. 1000 / 1000 1000 / 1000 CONT .[id number] [facility] Rx#:[id number] Cardene Inj 25 MG In NS Inj 240 250 / 250 ML @ 5 MG/HR 50 mls/hr IV.CONT TITRATE PRN Rx#:[id number] MVI-12 Inj 10 ML Thiamine Inj 511.2 / 511.2 100 MG Folvite Inj 1 MG In NS Inj 500 ML @ 125 mls/hr IV.SIG Q24H [facility] Rx#:[id number] Oral 50 / 50 100 / 100 Output: Urine 1000 / 1000 Urine Amount (Catheter) 800 / 800 Female External 800 / 800 Other: Date of Last Bowel Movement 05/30/18 05/30/18 # Bowel Movements 0 Result Diagrams: 06/01/18 03:40 06/01/18 03:40 Objective Remarks: - Constitutional Lying in bed oriented to person only. Calm while on Precedex - HEENT Exam Normocephalic, atraumatic. ALEXYS - Neck Exam supple, full ROM, trachea midline - Respiratory Exam CTA bilaterally. No wheezes or crackles -Chest/breast exam: With CT report concerning for breast mass, I performed a breast exam with JESSICA Maldonado at the bedside on 05/31/18. Unable to palpate discrete mass as the patient has breast implants - Cardiovascular Exam Hypertension currently off Cardene infusion. S1-S2 normal no murmurs. No S3-S4 - Abdominal Exam Soft, normoactive bowel sounds - Extremities Exam Pulses intact, normal capillary refill - Neurological Exam , Somnolent on Precedex but wakes up easily oriented to person only, thinks she is at home. Moves all 4 extremities equally follows commands no focal deficits. Intermittently agitated and confused. No nystagmus. EOM + Assessment and Plan - Problem List (1) Intraventricular hemorrhage, nontraumatic Code(s): I61.5 - Nontraumatic intracerebral hemorrhage, intraventricular Status: Acute (2) Hypertensive emergency Code(s): I16.1 - Hypertensive emergency Status: Acute (3) Metabolic encephalopathy Code(s): G93.41 - Metabolic encephalopathy Status: Acute (4) Altered mental status Code(s): R41.82 - Altered mental status, unspecified Status: Acute (5) History of peripheral arterial disease Code(s): Z86.79 - Personal history of other diseases of the circulatory system Status: Chronic (6) History of hypertension Code(s): Z86.79 - Personal history of other diseases of the circulatory system Status: Chronic (7) Cessation of tobacco use in previous 12 months Code(s): Z87.891 - Personal history of nicotine dependence Status: Chronic - Assessment and Plan Plan: NEURO: 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 cannot rule out liver metastases -Tight blood pressure control with Cardene and IV labetalol as needed, and PO meds, see below -Keep systolic blood pressure less than 150 -Supplement multivitamin thiamine given daily alcohol use -Watch closely for alcohol withdrawal -Mild alcohol withdrawal contributing to agitation -Use Precedex for agitation, Haldol as needed -EEG negative for seizures no indication for seizure prophylaxis RESP: Previous tobacco use -DuoNeb every 6 hours scheduled and as needed -Pulmonology consulted for right upper lobe mass concerning for primary malignancy, with adrenal mass -Pulmonary Dr. Naidu suggesting CT-guided biopsy and PET scan once clinically more stable and neuro surgery completed CV: Hypertensive emergency History of hypertension Peripheral arterial disease -Normal saline IV fluids 84 mL/h -Cardene infusion and, IV labetalol as needed for systolic blood pressure less than 150 -Continue home enalapril and amlodipine, continue statin. Metoprolol 50 mg twice daily -Holding Plavix GI: -Diet per speech recommendation, IV famotidine : -Monitor renal function closely. 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 Kapadia ENDO: -Electrolyte replacement per protocol PROPH: -Bilateral lower extremity SCDs. Avoid chemical DVT prophylaxis until cleared by neurosurgery/famotidine LINES: -Utilize peripheral IVs, central line if needed CC time 35 min Remains critically ill encephalopathic delirious likely from the hydrocephalus alcohol withdrawal contributing. She is at acute risk for neuro and respiratory decompensation. Continue close ICU monitoring plan for surgical intervention Monday Code Status: Full
[2018-06-01] MEDS: Senna/Docusate Sodium 8.6/50 MG Tablet PO SCH ×2 (09:03→22:04)
[2018-06-01] MEDS: Metoprolol Tartrate 50 MG Tablet PO SCH ×2 (09:03→22:04)
[2018-06-01] MEDS: amLODIPine 5 MG Tablet PO SCH (09:04)
[2018-06-01] MEDS: Lisinopril 20 MG Tablet PO SCH (09:04)
[2018-06-01] MEDS: Famotidine PF Inj 20 MG/2 ML Vial IV.PUSH SCH ×2 (09:04→22:04)
--- NOTE | 2018-06-01 09:12 | P.PNNEU ---
Subjective Active Medications: Active Medications Acetaminophen (Tylenol) 650 mg PO Q6H PRN PRN Reason: PAIN 1-10 AND/OR FEVER >101F Al Hydroxide/Mg Hydroxide (Milk Of Heidi Treviño) 30 ml PO Q12H PRN PRN Reason: Mild Constipation Albuterol (Duoneb Neb (Prn)) 1 ampul NEB Q2HR NEB PRN PRN Reason: WHEEZING Albuterol (Duoneb Neb (Prn)) 1 ampul NEB Q6HR NEB PRN PRN Reason: WHEEZING Amlodipine Besylate (Norvasc) 5 mg PO DAILY [facility] Last Admin: 06/01/18 09:04 Dose: 5 mg Bisacodyl (Dulcolax Supp) 10 mg RECTAL DAILY PRN PRN Reason: SEVERE CONSITIPATION Chlorhexidine Gluconate (Chlorhexidine 2% Cloth) 3 pack TOPICAL DAILY@0400 [facility] Stop: 06/04/18 03:59 Last Admin: 06/01/18 04:55 Dose: 3 pack Chlorhexidine Gluconate (Chlorhexidine 2% Cloth) 3 pack TOPICAL DAILY@0400 PRN PRN Reason: Extra cloth needed Stop: 06/04/18 03:59 Enalaprilat (Vasotec Inj) 2.5 mg IV.PUSH Q6H PRN PRN Reason: Sbp>140, Dbp>90 Famotidine (Pepcid Pf Inj) 20 mg IV.PUSH Q12HR [facility] Last Admin: 06/01/18 09:04 Dose: 20 mg Haloperidol Lactate (Haldol Inj) 2 mg IV.PUSH Q4H PRN PRN Reason: AGITATION Last Admin: 06/01/18 03:04 Dose: 2 mg Sodium Chloride (Ns Inj) 1,000 mls @ 84 mls/hr IV.CONT .[id number] [facility] Last Admin: 06/01/18 09:04 Dose: 84 mls/hr Nicardipine HCl 25 mg/ Sodium (Chloride) 250 mls @ 50 mls/hr IV.CONT TITRATE PRN; Protocol PRN Reason: Per Protocol Last Titration: 06/01/18 05:28 Dose: 0 mg/hr, 0 mls/hr Magnesium Sulfate 4 gm/ Sodium (Chloride) 100 mls @ 50 mls/hr IV.SIG UNSCH PRN PRN Reason: For Magnesium 0.9 - 1.1 mg/dL Magnesium Sulfate 2 gm/ Sodium (Chloride) 100 mls @ 50 mls/hr IV.SIG UNSCH PRN PRN Reason: For Magnesium 1.2 - 1.6 mg/dL Potassium Chloride (Kcl 40 Meq Premix Inj) 40 meq in 100 mls @ 25 mls/hr IV.SIG Q2H PRN PRN Reason: For Potassium 2.8 - 3.2 mEq/L Potassium Chloride (Kcl 20 Meq Premix Inj) 20 meq in 100 mls @ 50 mls/hr IV.SIG Q2H PRN PRN Reason: For Potassium 3.3 - 3.5 mEq/L Potassium Chloride (Kcl 40 Meq Premix Inj) 40 meq in 100 mls @ 25 mls/hr IV.SIG UNSCH PRN PRN Reason: For Potassium 3.3 - 3.5 mEq/L Potassium Chloride (Kcl 20 Meq Premix Inj) 20 meq in 100 mls @ 50 mls/hr IV.SIG Q2H PRN PRN Reason: For Potassium 2.8 - 3.2 mEq/L Potassium Phosphate 30 mmol/ (Sodium Chloride) 260 mls @ 42 mls/hr IV.SIG UNSCH PRN PRN Reason: SEE LABEL COMMENTS Sodium Phosphate 30 mmol/ (Sodium Chloride) 260 mls @ 42 mls/hr IV.SIG UNSCH PRN PRN Reason: For Phosphorus < 2.5 mg/dL Dexmedetomidine HCl 200 mcg/ (Sodium Chloride) 50 mls @ 2.79 mls/hr IV.CONT TITRATE PRN; Protocol PRN Reason: Per Protocol Last Admin: 06/01/18 04:48 Dose: 0.2 mcg/kg/hr, 2.79 mls/hr Cefazolin Sodium 1 gm/ Sodium (Chloride) 100 mls @ 200 mls/hr IV.SIG [employer] [facility] Stop: 06/05/18 13:29 Labetalol HCl (Trandate Inj) 10 mg IV.PUSH Q4H PRN PRN Reason: Sbp>140, Dbp>90 Lactulose (Lactulose Liq) 30 ml PO DAILY PRN PRN Reason: SEVERE CONSITIPATION Lisinopril (Prinivil) 40 mg PO DAILY [facility] Last Admin: 06/01/18 09:04 Dose: 40 mg Magnesium Oxide (Mag-Ox) 800 mg PO UNSCH PRN PRN Reason: For Magnesium 1.2 - 1.6 mg/dL Metoprolol Tartrate (Lopressor) 50 mg PO BID [facility] Last Admin: 06/01/18 09:03 Dose: 50 mg Potassium Chloride (Kcl Liq) 40 meq PO UNSCH PRN PRN Reason: Potassium level 3.3-3.5 mEq/L Potassium Chloride (Kcl Liq) 40 meq PO UNSCH PRN PRN Reason: Potassium level 3.3-3.5 mEq/L Potassium Phosphate (K-Phos Original) 2,000 mg PO Q4H PRN PRN Reason: Phosphorus Less Than 2.5 mg/dL Potassium Phosphate (K-Phos Original) 2,000 mg PO UNSCH PRN PRN Reason: SEE LABEL COMMENTS Pravastatin Sodium (Pravachol) 40 mg PO DAILY [facility] Last Admin: 06/01/18 09:04 Dose: 40 mg Senna/Docusate Sodium (Kate-Colace) 1 tab PO BID [facility] Last Admin: 06/01/18 09:03 Dose: 1 tab Sennosides (Senokot) 17.2 mg PO Q12H PRN PRN Reason: Moderate Constipation Sodium Chloride (Ns Flush) 2 ml IV.FLUSH PRN PRN PRN Reason: FLUSH AFTER USING IV ACCESS Sodium Chloride (Ns Flush) 2 ml IV.FLUSH BID [facility] Last Admin: 06/01/18 09:03 Dose: 2 ml Allergies/Adverse Reactions: Allergies Allergy/AdvReac Type Severity Reaction Status Date / Time No Known Allergies Allergy Verified 05/29/18 15:32 Physical Exam Vital signs: Vital Signs 05/31/18 09:46 05/31/18 10:00 05/31/18 11:00 Temperature Pulse Rate 79 77 59 L Respiratory Rate 17 16 15 Blood Pressure 134/62 Pulse Oximetry 100 99 98 05/31/18 12:00 05/31/18 12:05 05/31/18 12:15 Temperature Pulse Rate 96 H 84 92 H Respiratory Rate 20 17 19 Blood Pressure 134/62 146/63 H Pulse Oximetry 99 99 99 05/31/18 12:30 05/31/18 12:45 05/31/18 13:00 Temperature Pulse Rate 86 95 H 98 H Respiratory Rate 22 20 22 Blood Pressure 149/67 H 136/62 142/63 H Pulse Oximetry 99 99 97 05/31/18 13:15 05/31/18 13:30 05/31/18 13:45 Temperature 98.8 F Pulse Rate 102 H 95 H 100 H Respiratory Rate 25 H 20 20 Blood Pressure 157/65 H 142/65 H 144/65 H Pulse Oximetry 92 L 99 99 05/31/18 14:00 05/31/18 14:15 05/31/18 14:30 Temperature Pulse Rate 114 H 82 92 H Respiratory Rate 41 H 18 17 Blood Pressure 164/73 H 138/62 141/65 H Pulse Oximetry 83 L 100 100 05/31/18 14:45 05/31/18 15:00 05/31/18 15:15 Temperature Pulse Rate 94 H 78 87 Respiratory Rate 22 16 18 Blood Pressure 135/56 L 139/60 132/60 Pulse Oximetry 98 100 100 05/31/18 15:30 05/31/18 15:45 05/31/18 16:00 Temperature 98.1 F Pulse Rate 98 H 94 H 84 Respiratory Rate 24 19 20 Blood Pressure 160/65 H 151/65 H Pulse Oximetry 99 100 100 05/31/18 16:15 05/31/18 16:30 05/31/18 16:45 Temperature Pulse Rate 88 89 97 H Respiratory Rate 21 25 H 19 Blood Pressure 133/63 151/63 H 149/67 H Pulse Oximetry 100 100 100 05/31/18 17:00 05/31/18 17:15 05/31/18 17:30 Temperature Pulse Rate 104 H 115 H 97 H Respiratory Rate 18 29 H 21 Blood Pressure 175/72 H 197/84 H 143/63 H Pulse Oximetry 100 98 99 05/31/18 17:45 05/31/18 18:00 05/31/18 18:15 Temperature Pulse Rate 103 H 90 101 H Respiratory Rate 23 18 20 Blood Pressure 156/65 H 134/60 139/60 Pulse Oximetry 100 100 100 05/31/18 18:30 05/31/18 18:45 05/31/18 19:00 Temperature Pulse Rate 92 H 113 H 107 H Respiratory Rate 20 28 H 19 Blood Pressure 137/65 128/66 123/57 L Pulse Oximetry 99 94 L 100 05/31/18 19:15 05/31/18 19:30 05/31/18 19:38 Temperature 97.7 F Pulse Rate 74 60 82 Respiratory Rate 15 16 Blood Pressure 96/47 L 90/42 L Pulse Oximetry 100 100 05/31/18 19:45 05/31/18 20:00 05/31/18 20:15 Temperature Pulse Rate 71 76 84 Respiratory Rate 17 20 21 Blood Pressure 102/54 L 107/57 L 117/58 L Pulse Oximetry 100 95 100 05/31/18 20:29 05/31/18 20:30 05/31/18 20:45 Temperature Pulse Rate 79 81 82 Respiratory Rate 24 18 21 Blood Pressure 117/58 L 151/60 H 124/57 L Pulse Oximetry 94 L 97 100 05/31/18 21:00 05/31/18 21:15 05/31/18 21:30 Temperature Pulse Rate 78 101 H 85 Respiratory Rate 22 21 17 Blood Pressure 125/59 L 155/69 H 140/62 Pulse Oximetry 92 L 91 L 94 L 05/31/18 21:45 05/31/18 21:50 05/31/18 22:00 Temperature Pulse Rate 96 H 67 79 Respiratory Rate 23 21 Blood Pressure 126/62 132/56 L Pulse Oximetry 95 99 05/31/18 22:15 05/31/18 22:30 05/31/18 23:00 Temperature Pulse Rate 71 53 L 74 Respiratory Rate 18 16 23 Blood Pressure 128/60 129/60 141/64 H Pulse Oximetry 94 L 97 96 05/31/18 23:15 05/31/18 23:45 06/01/18 00:00 Temperature Pulse Rate 73 81 76 Respiratory Rate 23 24 23 Blood Pressure 130/58 L 141/72 H 164/73 H Pulse Oximetry 98 94 L 96 06/01/18 00:15 06/01/18 00:30 06/01/18 00:45 Temperature Pulse Rate 95 H 88 92 H Respiratory Rate 28 H 24 24 Blood Pressure 157/67 H 152/72 H 171/76 H Pulse Oximetry 95 96 98 06/01/18 01:00 06/01/18 01:15 06/01/18 01:30 Temperature Pulse Rate 89 92 H 101 H Respiratory Rate 25 H 22 29 H Blood Pressure 175/75 H 169/70 H 179/82 H Pulse Oximetry 97 98 91 L 06/01/18 01:37 06/01/18 01:39 06/01/18 01:40 Temperature Pulse Rate 96 H 102 H 94 H Respiratory Rate 28 H 26 H 25 H Blood Pressure 161/64 H 167/72 H 170/76 H Pulse Oximetry 83 L 94 L 98 06/01/18 01:45 06/01/18 02:00 06/01/18 02:15 Temperature Pulse Rate 99 H 96 H 100 H Respiratory Rate 30 H 28 H 28 H Blood Pressure 181/89 H 171/73 H 167/73 H Pulse Oximetry 97 93 L 95 06/01/18 02:30 06/01/18 02:45 06/01/18 03:00 Temperature Pulse Rate 123 H 114 H 108 H Respiratory Rate 30 H 34 H 26 H Blood Pressure 166/67 H 162/66 H 153/69 H Pulse Oximetry 91 L 91 L 92 L 06/01/18 03:15 06/01/18 03:30 06/01/18 03:45 Temperature Pulse Rate 114 H 119 H 126 H Respiratory Rate 28 H 27 H 32 H Blood Pressure 136/66 133/63 154/79 H Pulse Oximetry 94 L 96 95 06/01/18 04:00 06/01/18 04:15 06/01/18 04:30 Temperature 98.4 F Pulse Rate 125 H 118 H 121 H Respiratory Rate 33 H 35 H 31 H Blood Pressure 137/60 137/63 153/67 H Pulse Oximetry 93 L 94 L 96 06/01/18 04:45 06/01/18 05:30 06/01/18 05:45 Temperature Pulse Rate 119 H 96 H 73 Respiratory Rate 34 H 27 H 18 Blood Pressure 125/57 L 114/56 L 112/60 Pulse Oximetry 95 93 L 97 06/01/18 06:00 06/01/18 06:15 06/01/18 07:36 Temperature Pulse Rate 81 72 Respiratory Rate 20 17 Blood Pressure 106/53 L 122/56 L Pulse Oximetry 98 98 96 Intake & Output 05/31/18 06/01/18 06/01/18 18:59 06:59 18:59 Intake Total 1050 / 1050 1911.2 / 1911.2 1000 / 1000 Output Total 1000 / 1000 800 / 800 Balance 50 / 50 1111.2 / 1111.2 1000 / 1000 Weight 56.9 kg Intake: IV 1000 / 1000 1811.2 / 1811.2 1000 / 1000 Precedex Inj 200 MCG In NS Inj 50 / 50 48 ML @ 0.2 MCG/KG/HR 2.79 mls/ hr IV.CONT TITRATE PRN Rx#: [id number] NS Inj 1,000 ML @ 84 mls/hr IV. 1000 / 1000 1000 / 1000 1000 / 1000 CONT .[id number] [facility] Rx#:[id number] Cardene Inj 25 MG In NS Inj 240 250 / 250 ML @ 5 MG/HR 50 mls/hr IV.CONT TITRATE PRN Rx#:[id number] MVI-12 Inj 10 ML Thiamine Inj 511.2 / 511.2 100 MG Folvite Inj 1 MG In NS Inj 500 ML @ 125 mls/hr IV.SIG Q24H [facility] Rx#:[id number] Oral 50 / 50 100 / 100 Output: Urine 1000 / 1000 Urine Amount (Catheter) 800 / 800 Female External 800 / 800 Other: Date of Last Bowel Movement 05/30/18 05/30/18 # Bowel Movements 0 Narrative: low dose precedex awake says name and follows some commands movesa ll - Urinary Catheter Management Female External Cath placed during this visit: no Reason for continuing: Not indwelling catheter Objective Laboratory Results - last 24 hr 06/01/18 06/01/18 03:40 03:40 WBC 19.3 H RBC 4.58 Hgb 15.4 H Hct 46.0 MCV 100.4 H MCH 33.6 MCHC 33.4 RDW 14.7 Plt Count 237 MPV 7.7 Sodium 139 Potassium 2.9 L* D Chloride 104 Carbon Dioxide 21.6 Anion Gap 13 BUN 8 Creatinine 0.50 Estimated GFR Greater than 89 Random Glucose 102 Calcium 8.6 Magnesium 1.8 Total Bilirubin 1.1 H AST 54 H ALT 32 Alkaline Phosphatase 113 Total Protein 8.2 Albumin 3.6 Review/Management - Review/Management Plan: imp improved MS mary on case i dw dr langston the medulla abn and he is aware fu eeg -- 06/01/18 eeg neg stable neuro vent size looks stable on cta check platelet plavix fxt for or monday
[2018-06-01] MEDS: Potassium Chlor 20 mEq Premix 20 MEQ/100 ML PIGGYBACK IV.SIG PRN ×4 (09:26→16:56)
--- NOTE | 2018-06-01 09:58 | P.PNONC ---
Subjective Interval history: Awake with eyes closed. Less agitated. Answer simple questions. Objective Vital Signs/Intake & Output: Vital Signs 05/31/18 10:00 05/31/18 11:00 05/31/18 12:00 Temperature Pulse Rate 77 59 L 96 H Respiratory Rate 16 15 20 Blood Pressure Pulse Oximetry 99 98 99 05/31/18 12:05 05/31/18 12:15 05/31/18 12:30 Temperature Pulse Rate 84 92 H 86 Respiratory Rate 17 19 22 Blood Pressure 134/62 146/63 H 149/67 H Pulse Oximetry 99 99 99 05/31/18 12:45 05/31/18 13:00 05/31/18 13:15 Temperature Pulse Rate 95 H 98 H 102 H Respiratory Rate 20 22 25 H Blood Pressure 136/62 142/63 H 157/65 H Pulse Oximetry 99 97 92 L 05/31/18 13:30 05/31/18 13:45 05/31/18 14:00 Temperature 98.8 F Pulse Rate 95 H 100 H 114 H Respiratory Rate 20 20 41 H Blood Pressure 142/65 H 144/65 H 164/73 H Pulse Oximetry 99 99 83 L 05/31/18 14:15 05/31/18 14:30 05/31/18 14:45 Temperature Pulse Rate 82 92 H 94 H Respiratory Rate 18 17 22 Blood Pressure 138/62 141/65 H 135/56 L Pulse Oximetry 100 100 98 05/31/18 15:00 05/31/18 15:15 05/31/18 15:30 Temperature Pulse Rate 78 87 98 H Respiratory Rate 16 18 24 Blood Pressure 139/60 132/60 160/65 H Pulse Oximetry 100 100 99 05/31/18 15:45 05/31/18 16:00 05/31/18 16:15 Temperature 98.1 F Pulse Rate 94 H 84 88 Respiratory Rate 19 20 21 Blood Pressure 151/65 H 133/63 Pulse Oximetry 100 100 100 05/31/18 16:30 05/31/18 16:45 05/31/18 17:00 Temperature Pulse Rate 89 97 H 104 H Respiratory Rate 25 H 19 18 Blood Pressure 151/63 H 149/67 H 175/72 H Pulse Oximetry 100 100 100 05/31/18 17:15 05/31/18 17:30 05/31/18 17:45 Temperature Pulse Rate 115 H 97 H 103 H Respiratory Rate 29 H 21 23 Blood Pressure 197/84 H 143/63 H 156/65 H Pulse Oximetry 98 99 100 05/31/18 18:00 05/31/18 18:15 05/31/18 18:30 Temperature Pulse Rate 90 101 H 92 H Respiratory Rate 18 20 20 Blood Pressure 134/60 139/60 137/65 Pulse Oximetry 100 100 99 05/31/18 18:45 05/31/18 19:00 05/31/18 19:15 Temperature Pulse Rate 113 H 107 H 74 Respiratory Rate 28 H 19 15 Blood Pressure 128/66 123/57 L 96/47 L Pulse Oximetry 94 L 100 100 05/31/18 19:30 05/31/18 19:38 05/31/18 19:45 Temperature 97.7 F Pulse Rate 60 82 71 Respiratory Rate 16 17 Blood Pressure 90/42 L 102/54 L Pulse Oximetry 100 100 05/31/18 20:00 05/31/18 20:15 05/31/18 20:29 Temperature Pulse Rate 76 84 79 Respiratory Rate 20 21 24 Blood Pressure 107/57 L 117/58 L 117/58 L Pulse Oximetry 95 100 94 L 05/31/18 20:30 05/31/18 20:45 05/31/18 21:00 Temperature Pulse Rate 81 82 78 Respiratory Rate 18 21 22 Blood Pressure 151/60 H 124/57 L 125/59 L Pulse Oximetry 97 100 92 L 05/31/18 21:15 05/31/18 21:30 05/31/18 21:45 Temperature Pulse Rate 101 H 85 96 H Respiratory Rate 21 17 23 Blood Pressure 155/69 H 140/62 126/62 Pulse Oximetry 91 L 94 L 95 05/31/18 21:50 05/31/18 22:00 05/31/18 22:15 Temperature Pulse Rate 67 79 71 Respiratory Rate 21 18 Blood Pressure 132/56 L 128/60 Pulse Oximetry 99 94 L 05/31/18 22:30 05/31/18 23:00 05/31/18 23:15 Temperature Pulse Rate 53 L 74 73 Respiratory Rate 16 23 23 Blood Pressure 129/60 141/64 H 130/58 L Pulse Oximetry 97 96 98 05/31/18 23:45 06/01/18 00:00 06/01/18 00:15 Temperature Pulse Rate 81 76 95 H Respiratory Rate 24 23 28 H Blood Pressure 141/72 H 164/73 H 157/67 H Pulse Oximetry 94 L 96 95 06/01/18 00:30 06/01/18 00:45 06/01/18 01:00 Temperature Pulse Rate 88 92 H 89 Respiratory Rate 24 24 25 H Blood Pressure 152/72 H 171/76 H 175/75 H Pulse Oximetry 96 98 97 06/01/18 01:15 06/01/18 01:30 06/01/18 01:37 Temperature Pulse Rate 92 H 101 H 96 H Respiratory Rate 22 29 H 28 H Blood Pressure 169/70 H 179/82 H 161/64 H Pulse Oximetry 98 91 L 83 L 06/01/18 01:39 06/01/18 01:40 06/01/18 01:45 Temperature Pulse Rate 102 H 94 H 99 H Respiratory Rate 26 H 25 H 30 H Blood Pressure 167/72 H 170/76 H 181/89 H Pulse Oximetry 94 L 98 97 06/01/18 02:00 06/01/18 02:15 06/01/18 02:30 Temperature Pulse Rate 96 H 100 H 123 H Respiratory Rate 28 H 28 H 30 H Blood Pressure 171/73 H 167/73 H 166/67 H Pulse Oximetry 93 L 95 91 L 06/01/18 02:45 06/01/18 03:00 06/01/18 03:15 Temperature Pulse Rate 114 H 108 H 114 H Respiratory Rate 34 H 26 H 28 H Blood Pressure 162/66 H 153/69 H 136/66 Pulse Oximetry 91 L 92 L 94 L 06/01/18 03:30 06/01/18 03:45 06/01/18 04:00 Temperature Pulse Rate 119 H 126 H 125 H Respiratory Rate 27 H 32 H 33 H Blood Pressure 133/63 154/79 H 137/60 Pulse Oximetry 96 95 93 L 06/01/18 04:15 06/01/18 04:30 06/01/18 04:45 Temperature 98.4 F Pulse Rate 118 H 121 H 119 H Respiratory Rate 35 H 31 H 34 H Blood Pressure 137/63 153/67 H 125/57 L Pulse Oximetry 94 L 96 95 06/01/18 05:30 06/01/18 05:45 06/01/18 06:00 Temperature Pulse Rate 96 H 73 81 Respiratory Rate 27 H 18 20 Blood Pressure 114/56 L 112/60 106/53 L Pulse Oximetry 93 L 97 98 06/01/18 06:15 06/01/18 07:36 Temperature Pulse Rate 72 Respiratory Rate 17 Blood Pressure 122/56 L Pulse Oximetry 98 96 Intake & Output 05/31/18 06/01/18 06/01/18 18:59 06:59 18:59 Intake Total 1050 / 1050 1911.2 / 1911.2 1000 / 1000 Output Total 1000 / 1000 800 / 800 Balance 50 / 50 1111.2 / 1111.2 1000 / 1000 Weight 56.9 kg Intake: IV 1000 / 1000 1811.2 / 1811.2 1000 / 1000 Precedex Inj 200 MCG In NS Inj 50 / 50 48 ML @ 0.2 MCG/KG/HR 2.79 mls/ hr IV.CONT TITRATE PRN Rx#: [id number] NS Inj 1,000 ML @ 84 mls/hr IV. 1000 / 1000 1000 / 1000 1000 / 1000 CONT .[id number] [facility] Rx#:[id number] Cardene Inj 25 MG In NS Inj 240 250 / 250 ML @ 5 MG/HR 50 mls/hr IV.CONT TITRATE PRN Rx#:[id number] MVI-12 Inj 10 ML Thiamine Inj 511.2 / 511.2 100 MG Folvite Inj 1 MG In NS Inj 500 ML @ 125 mls/hr IV.SIG Q24H [facility] Rx#:[id number] Oral 50 / 50 100 / 100 Output: Urine 1000 / 1000 Urine Amount (Catheter) 800 / 800 Female External 800 / 800 Other: Date of Last Bowel Movement 05/30/18 05/30/18 # Bowel Movements 0 Result Diagrams: 06/01/18 03:40 06/01/18 03:40 Laboratory Results: Laboratory Results - last 24 hr 06/01/18 06/01/18 03:40 03:40 WBC 19.3 H RBC 4.58 Hgb 15.4 H Hct 46.0 MCV 100.4 H MCH 33.6 MCHC 33.4 RDW 14.7 Plt Count 237 MPV 7.7 Sodium 139 Potassium 2.9 L* D Chloride 104 Carbon Dioxide 21.6 Anion Gap 13 BUN 8 Creatinine 0.50 Estimated GFR Greater than 89 Random Glucose 102 Calcium 8.6 Magnesium 1.8 Total Bilirubin 1.1 H AST 54 H ALT 32 Alkaline Phosphatase 113 Total Protein 8.2 Albumin 3.6 Imaging Studies: Impressions Head CTA 05/31/18 00:00 CONCLUSION: 1. There is no evidence for intracranial aneurysm or stenosis. 2. Intraventricular mass as previously described. 3. There is no evidence for mass at the cerebellopontine angle. The finding on the recent MRI was likely related to pulsation artifact in this region. . Chest X-Ray 06/01/18 00:00 CONCLUSION: No acute cardiopulmonary disease identified. Medications: Active Medications Generic Name Dose Route Start Last Admin Trade Name Freq PRN Reason Stop Dose Admin Amlodipine Besylate 5 mg 05/29/18 17:30 06/01/18 09:04 Norvasc PO 5 mg DAILY [facility] Administration Chlorhexidine Gluconate 3 pack 05/30/18 04:00 06/01/18 04:55 Chlorhexidine 2% Cloth TOPICAL 06/04/18 03:59 3 pack DAILY@0400 [facility] Administration Famotidine 20 mg 05/29/18 21:00 06/01/18 09:04 Pepcid Pf Inj IV.PUSH 20 mg Q12HR [facility] Administration Haloperidol Lactate 2 mg 05/30/18 13:17 06/01/18 03:04 Haldol Inj IV.PUSH 2 mg Q4H PRN Administration AGITATION Sodium Chloride 1,000 mls @ 84 mls/hr 05/29/18 16:00 06/01/18 09:04 Ns Inj IV.CONT 84 mls/hr .[id number] [facility] Administration Nicardipine HCl 25 mg/ Sodium 250 mls @ 50 mls/hr 05/29/18 15:38 06/01/18 05: 28 Chloride IV.CONT 0 mg/hr TITRATE PRN 0 mls/hr Per Protocol Titration Protocol 5 MG/HR Potassium Chloride 20 meq in 100 mls @ 50 mls/hr 05/29/18 16:53 06/01/18 09: 26 Kcl 20 Meq Premix Inj IV.SIG 50 mls/hr Q2H PRN Administration For Potassium 2.8 - 3.2 mEq/L Dexmedetomidine HCl 200 mcg/ 50 mls @ 2.79 mls/hr 05/30/18 18:22 06/01/18 04: 48 Sodium Chloride IV.CONT 0.2 mcg/kg/hr TITRATE PRN 2.79 mls/hr Per Protocol Administration Protocol 0.2 MCG/KG/HR Lisinopril 40 mg 05/29/18 17:30 06/01/18 09:04 Prinivil PO 40 mg DAILY [facility] Administration Metoprolol Tartrate 50 mg 05/30/18 14:15 06/01/18 09:03 Lopressor PO 50 mg BID [facility] Administration Pravastatin Sodium 40 mg 05/30/18 09:00 06/01/18 09:04 Pravachol PO 40 mg DAILY [facility] Administration Senna/Docusate Sodium 1 tab 05/29/18 21:00 06/01/18 09:03 Kate-Colace PO 1 tab BID [facility] Administration Sodium Chloride 2 ml 05/29/18 21:00 06/01/18 09:03 Ns Flush IV.FLUSH 2 ml BID [facility] Administration Objective Remarks: GENERAL: Elderly disheveled woman, well-developed patient. SKIN: Warm and dry. HEAD: Normocephalic. Bitemporal wasting. EYES: No scleral icterus. No injection or drainage. NECK: Supple, trachea midline. No JVD or lymphadenopathy. LYMPHATIC: No adenopathy. CARDIOVASCULAR: Regular rate and rhythm without murmurs. RESPIRATORY: Breath sounds equal bilaterally. No accessory muscle use. GASTROINTESTINAL: Abdomen soft, non-tender, nondistended. EXTREMITIES: No cyanosis, or edema. MUSCULOSKELETAL: Adequate muscle tone. NEUROLOGICAL: No obvious focal deficit. Awake and alert. Assessment/Plan - Plan 78-year-old woman transferred for acute mental status change, ventricle enlargement pending neurosurgery intervention in hopes of alleviating the mental status change. Additional imaging shows disease in the lung suspected malignancy. 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 Case was discussed with the rivet spinner. Neurology workup ongoing. Patient's was called and message left. We will contact has been in order to discuss the goals of therapy. Hematology oncology will follow with you pending patient's recovery and improvement in mental status change with neurosurgical intervention on Monday.
--- NOTE | 2018-06-01 11:50 | P.PNNS ---
Subjective Interval history: no neuro changes overnight, more awake today <Samanta Banda - Last Filed: 06/01/18 11:47> Physical Exam Vital signs: Vital Signs 05/31/18 12:00 05/31/18 12:05 05/31/18 12:15 Temperature Pulse Rate 96 H 84 92 H Respiratory Rate 20 17 19 Blood Pressure 134/62 146/63 H Pulse Oximetry 99 99 99 05/31/18 12:30 05/31/18 12:45 05/31/18 13:00 Temperature Pulse Rate 86 95 H 98 H Respiratory Rate 22 20 22 Blood Pressure 149/67 H 136/62 142/63 H Pulse Oximetry 99 99 97 05/31/18 13:15 05/31/18 13:30 05/31/18 13:45 Temperature 98.8 F Pulse Rate 102 H 95 H 100 H Respiratory Rate 25 H 20 20 Blood Pressure 157/65 H 142/65 H 144/65 H Pulse Oximetry 92 L 99 99 05/31/18 14:00 05/31/18 14:15 05/31/18 14:30 Temperature Pulse Rate 114 H 82 92 H Respiratory Rate 41 H 18 17 Blood Pressure 164/73 H 138/62 141/65 H Pulse Oximetry 83 L 100 100 05/31/18 14:45 05/31/18 15:00 05/31/18 15:15 Temperature Pulse Rate 94 H 78 87 Respiratory Rate 22 16 18 Blood Pressure 135/56 L 139/60 132/60 Pulse Oximetry 98 100 100 05/31/18 15:30 05/31/18 15:45 05/31/18 16:00 Temperature 98.1 F Pulse Rate 98 H 94 H 84 Respiratory Rate 24 19 20 Blood Pressure 160/65 H 151/65 H Pulse Oximetry 99 100 100 05/31/18 16:15 05/31/18 16:30 05/31/18 16:45 Temperature Pulse Rate 88 89 97 H Respiratory Rate 21 25 H 19 Blood Pressure 133/63 151/63 H 149/67 H Pulse Oximetry 100 100 100 05/31/18 17:00 05/31/18 17:15 05/31/18 17:30 Temperature Pulse Rate 104 H 115 H 97 H Respiratory Rate 18 29 H 21 Blood Pressure 175/72 H 197/84 H 143/63 H Pulse Oximetry 100 98 99 05/31/18 17:45 05/31/18 18:00 05/31/18 18:15 Temperature Pulse Rate 103 H 90 101 H Respiratory Rate 23 18 20 Blood Pressure 156/65 H 134/60 139/60 Pulse Oximetry 100 100 100 05/31/18 18:30 05/31/18 18:45 05/31/18 19:00 Temperature Pulse Rate 92 H 113 H 107 H Respiratory Rate 20 28 H 19 Blood Pressure 137/65 128/66 123/57 L Pulse Oximetry 99 94 L 100 05/31/18 19:15 05/31/18 19:30 05/31/18 19:38 Temperature 97.7 F Pulse Rate 74 60 82 Respiratory Rate 15 16 Blood Pressure 96/47 L 90/42 L Pulse Oximetry 100 100 05/31/18 19:45 05/31/18 20:00 05/31/18 20:15 Temperature Pulse Rate 71 76 84 Respiratory Rate 17 20 21 Blood Pressure 102/54 L 107/57 L 117/58 L Pulse Oximetry 100 95 100 05/31/18 20:29 05/31/18 20:30 05/31/18 20:45 Temperature Pulse Rate 79 81 82 Respiratory Rate 24 18 21 Blood Pressure 117/58 L 151/60 H 124/57 L Pulse Oximetry 94 L 97 100 05/31/18 21:00 05/31/18 21:15 05/31/18 21:30 Temperature Pulse Rate 78 101 H 85 Respiratory Rate 22 21 17 Blood Pressure 125/59 L 155/69 H 140/62 Pulse Oximetry 92 L 91 L 94 L 05/31/18 21:45 05/31/18 21:50 05/31/18 22:00 Temperature Pulse Rate 96 H 67 79 Respiratory Rate 23 21 Blood Pressure 126/62 132/56 L Pulse Oximetry 95 99 05/31/18 22:15 05/31/18 22:30 05/31/18 23:00 Temperature Pulse Rate 71 53 L 74 Respiratory Rate 18 16 23 Blood Pressure 128/60 129/60 141/64 H Pulse Oximetry 94 L 97 96 05/31/18 23:15 05/31/18 23:45 06/01/18 00:00 Temperature Pulse Rate 73 81 76 Respiratory Rate 23 24 23 Blood Pressure 130/58 L 141/72 H 164/73 H Pulse Oximetry 98 94 L 96 06/01/18 00:15 06/01/18 00:30 06/01/18 00:45 Temperature Pulse Rate 95 H 88 92 H Respiratory Rate 28 H 24 24 Blood Pressure 157/67 H 152/72 H 171/76 H Pulse Oximetry 95 96 98 06/01/18 01:00 06/01/18 01:15 06/01/18 01:30 Temperature Pulse Rate 89 92 H 101 H Respiratory Rate 25 H 22 29 H Blood Pressure 175/75 H 169/70 H 179/82 H Pulse Oximetry 97 98 91 L 06/01/18 01:37 06/01/18 01:39 06/01/18 01:40 Temperature Pulse Rate 96 H 102 H 94 H Respiratory Rate 28 H 26 H 25 H Blood Pressure 161/64 H 167/72 H 170/76 H Pulse Oximetry 83 L 94 L 98 06/01/18 01:45 06/01/18 02:00 06/01/18 02:15 Temperature Pulse Rate 99 H 96 H 100 H Respiratory Rate 30 H 28 H 28 H Blood Pressure 181/89 H 171/73 H 167/73 H Pulse Oximetry 97 93 L 95 06/01/18 02:30 06/01/18 02:45 06/01/18 03:00 Temperature Pulse Rate 123 H 114 H 108 H Respiratory Rate 30 H 34 H 26 H Blood Pressure 166/67 H 162/66 H 153/69 H Pulse Oximetry 91 L 91 L 92 L 06/01/18 03:15 06/01/18 03:30 06/01/18 03:45 Temperature Pulse Rate 114 H 119 H 126 H Respiratory Rate 28 H 27 H 32 H Blood Pressure 136/66 133/63 154/79 H Pulse Oximetry 94 L 96 95 06/01/18 04:00 06/01/18 04:15 06/01/18 04:30 Temperature 98.4 F Pulse Rate 125 H 118 H 121 H Respiratory Rate 33 H 35 H 31 H Blood Pressure 137/60 137/63 153/67 H Pulse Oximetry 93 L 94 L 96 06/01/18 04:45 06/01/18 05:30 06/01/18 05:45 Temperature Pulse Rate 119 H 96 H 73 Respiratory Rate 34 H 27 H 18 Blood Pressure 125/57 L 114/56 L 112/60 Pulse Oximetry 95 93 L 97 06/01/18 06:00 06/01/18 06:15 01/18/19 07:00 Temperature Pulse Rate 81 72 87 Respiratory Rate 20 17 21 Blood Pressure 106/53 L 122/56 L 114/56 L Pulse Oximetry 98 98 97 06/01/18 07:15 06/01/18 07:30 06/01/18 07:36 Temperature Pulse Rate 95 H 110 H Respiratory Rate 23 20 Blood Pressure 120/58 L 121/58 L Pulse Oximetry 97 96 96 06/01/18 07:45 06/01/18 08:00 06/01/18 08:15 Temperature 98.5 F Pulse Rate 80 94 H 71 Respiratory Rate 17 23 16 Blood Pressure 114/56 L 116/54 L 109/51 L Pulse Oximetry 98 96 97 06/01/18 08:30 06/01/18 08:45 06/01/18 09:00 Temperature Pulse Rate 65 77 76 Respiratory Rate 21 17 17 Blood Pressure 106/49 L 112/53 L 114/55 L Pulse Oximetry 95 100 100 06/01/18 09:15 06/01/18 09:30 06/01/18 09:45 Temperature Pulse Rate 92 H 84 58 L Respiratory Rate 25 H 27 H 14 Blood Pressure 119/58 L 124/60 113/55 L Pulse Oximetry 100 98 97 06/01/18 10:00 06/01/18 10:15 Temperature Pulse Rate 68 63 Respiratory Rate 23 20 Blood Pressure 124/58 L 111/55 L Pulse Oximetry 99 98 Intake & Output 05/31/18 06/01/18 06/01/18 18:59 06:59 18:59 Intake Total 1050 / 1050 1911.2 / 1911.2 1000 / 1000 Output Total 1000 / 1000 800 / 800 Balance 50 / 50 1111.2 / 1111.2 1000 / 1000 Weight 56.9 kg Intake: IV 1000 / 1000 1811.2 / 1811.2 1000 / 1000 Precedex Inj 200 MCG In NS Inj 50 / 50 48 ML @ 0.2 MCG/KG/HR 2.79 mls/ hr IV.CONT TITRATE PRN Rx#: [id number] NS Inj 1,000 ML @ 84 mls/hr IV. 1000 / 1000 1000 / 1000 1000 / 1000 CONT .[id number] [facility] Rx#:[id number] Cardene Inj 25 MG In NS Inj 240 250 / 250 ML @ 5 MG/HR 50 mls/hr IV.CONT TITRATE PRN Rx#:[id number] MVI-12 Inj 10 ML Thiamine Inj 511.2 / 511.2 100 MG Folvite Inj 1 MG In NS Inj 500 ML @ 125 mls/hr IV.SIG Q24H [facility] Rx#:[id number] Oral 50 / 50 100 / 100 Output: Urine 1000 / 1000 Urine Amount (Catheter) 800 / 800 Female External 800 / 800 Other: Date of Last Bowel Movement 05/30/18 05/30/18 05/30/18 # Bowel Movements 0 Narrative: More awake today pupils equal speech is slow pupils equal reactive moving extremities intermittently - Urinary Catheter Management Female External Cath placed during this visit: no Reason for continuing: Not indwelling catheter <Samanta Banda - Last Filed: 06/01/18 11:47> Vital signs: Vital Signs 05/31/18 14:00 05/31/18 14:15 05/31/18 14:30 Temperature Pulse Rate 114 H 82 92 H Respiratory Rate 41 H 18 17 Blood Pressure 164/73 H 138/62 141/65 H Pulse Oximetry 83 L 100 100 05/31/18 14:45 05/31/18 15:00 05/31/18 15:15 Temperature Pulse Rate 94 H 78 87 Respiratory Rate 22 16 18 Blood Pressure 135/56 L 139/60 132/60 Pulse Oximetry 98 100 100 05/31/18 15:30 05/31/18 15:45 05/31/18 16:00 Temperature 98.1 F Pulse Rate 98 H 94 H 84 Respiratory Rate 24 19 20 Blood Pressure 160/65 H 151/65 H Pulse Oximetry 99 100 100 05/31/18 16:15 05/31/18 16:30 05/31/18 16:45 Temperature Pulse Rate 88 89 97 H Respiratory Rate 21 25 H 19 Blood Pressure 133/63 151/63 H 149/67 H Pulse Oximetry 100 100 100 05/31/18 17:00 05/31/18 17:15 05/31/18 17:30 Temperature Pulse Rate 104 H 115 H 97 H Respiratory Rate 18 29 H 21 Blood Pressure 175/72 H 197/84 H 143/63 H Pulse Oximetry 100 98 99 05/31/18 17:45 05/31/18 18:00 05/31/18 18:15 Temperature Pulse Rate 103 H 90 101 H Respiratory Rate 23 18 20 Blood Pressure 156/65 H 134/60 139/60 Pulse Oximetry 100 100 100 05/31/18 18:30 05/31/18 18:45 05/31/18 19:00 Temperature Pulse Rate 92 H 113 H 107 H Respiratory Rate 20 28 H 19 Blood Pressure 137/65 128/66 123/57 L Pulse Oximetry 99 94 L 100 05/31/18 19:15 05/31/18 19:30 05/31/18 19:38 Temperature 97.7 F Pulse Rate 74 60 82 Respiratory Rate 15 16 Blood Pressure 96/47 L 90/42 L Pulse Oximetry 100 100 05/31/18 19:45 05/31/18 20:00 05/31/18 20:15 Temperature Pulse Rate 71 76 84 Respiratory Rate 17 20 21 Blood Pressure 102/54 L 107/57 L 117/58 L Pulse Oximetry 100 95 100 05/31/18 20:29 05/31/18 20:30 05/31/18 20:45 Temperature Pulse Rate 79 81 82 Respiratory Rate 24 18 21 Blood Pressure 117/58 L 151/60 H 124/57 L Pulse Oximetry 94 L 97 100 05/31/18 21:00 05/31/18 21:15 05/31/18 21:30 Temperature Pulse Rate 78 101 H 85 Respiratory Rate 22 21 17 Blood Pressure 125/59 L 155/69 H 140/62 Pulse Oximetry 92 L 91 L 94 L 05/31/18 21:45 05/31/18 21:50 05/31/18 22:00 Temperature Pulse Rate 96 H 67 79 Respiratory Rate 23 21 Blood Pressure 126/62 132/56 L Pulse Oximetry 95 99 05/31/18 22:15 05/31/18 22:30 05/31/18 23:00 Temperature Pulse Rate 71 53 L 74 Respiratory Rate 18 16 23 Blood Pressure 128/60 129/60 141/64 H Pulse Oximetry 94 L 97 96 05/31/18 23:15 05/31/18 23:45 06/01/18 00:00 Temperature Pulse Rate 73 81 76 Respiratory Rate 23 24 23 Blood Pressure 130/58 L 141/72 H 164/73 H Pulse Oximetry 98 94 L 96 06/01/18 00:15 06/01/18 00:30 06/01/18 00:45 Temperature Pulse Rate 95 H 88 92 H Respiratory Rate 28 H 24 24 Blood Pressure 157/67 H 152/72 H 171/76 H Pulse Oximetry 95 96 98 01/18/19 01:00 06/01/18 01:15 06/01/18 01:30 Temperature Pulse Rate 89 92 H 101 H Respiratory Rate 25 H 22 29 H Blood Pressure 175/75 H 169/70 H 179/82 H Pulse Oximetry 97 98 91 L 06/01/18 01:37 06/01/18 01:39 06/01/18 01:40 Temperature Pulse Rate 96 H 102 H 94 H Respiratory Rate 28 H 26 H 25 H Blood Pressure 161/64 H 167/72 H 170/76 H Pulse Oximetry 83 L 94 L 98 06/01/18 01:45 06/01/18 02:00 06/01/18 02:15 Temperature Pulse Rate 99 H 96 H 100 H Respiratory Rate 30 H 28 H 28 H Blood Pressure 181/89 H 171/73 H 167/73 H Pulse Oximetry 97 93 L 95 06/01/18 02:30 06/01/18 02:45 06/01/18 03:00 Temperature Pulse Rate 123 H 114 H 108 H Respiratory Rate 30 H 34 H 26 H Blood Pressure 166/67 H 162/66 H 153/69 H Pulse Oximetry 91 L 91 L 92 L 06/01/18 03:15 06/01/18 03:30 06/01/18 03:45 Temperature Pulse Rate 114 H 119 H 126 H Respiratory Rate 28 H 27 H 32 H Blood Pressure 136/66 133/63 154/79 H Pulse Oximetry 94 L 96 95 06/01/18 04:00 06/01/18 04:15 06/01/18 04:30 Temperature 98.4 F Pulse Rate 125 H 118 H 121 H Respiratory Rate 33 H 35 H 31 H Blood Pressure 137/60 137/63 153/67 H Pulse Oximetry 93 L 94 L 96 06/01/18 04:45 06/01/18 05:30 06/01/18 05:45 Temperature Pulse Rate 119 H 96 H 73 Respiratory Rate 34 H 27 H 18 Blood Pressure 125/57 L 114/56 L 112/60 Pulse Oximetry 95 93 L 97 06/01/18 06:00 06/01/18 06:15 06/01/18 07:00 Temperature Pulse Rate 81 72 87 Respiratory Rate 20 17 21 Blood Pressure 106/53 L 122/56 L 114/56 L Pulse Oximetry 98 98 97 06/01/18 07:15 06/01/18 07:30 06/01/18 07:36 Temperature Pulse Rate 95 H 110 H Respiratory Rate 23 20 Blood Pressure 120/58 L 121/58 L Pulse Oximetry 97 96 96 06/01/18 07:45 06/01/18 08:00 06/01/18 08:15 Temperature 98.5 F Pulse Rate 80 94 H 71 Respiratory Rate 17 23 16 Blood Pressure 114/56 L 116/54 L 109/51 L Pulse Oximetry 98 96 97 06/01/18 08:30 06/01/18 08:45 06/01/18 09:00 Temperature Pulse Rate 65 77 76 Respiratory Rate 21 17 17 Blood Pressure 106/49 L 112/53 L 114/55 L Pulse Oximetry 95 100 100 06/01/18 09:15 06/01/18 09:30 06/01/18 09:45 Temperature Pulse Rate 92 H 84 58 L Respiratory Rate 25 H 27 H 14 Blood Pressure 119/58 L 124/60 113/55 L Pulse Oximetry 100 98 97 06/01/18 10:00 06/01/18 10:15 Temperature Pulse Rate 68 63 Respiratory Rate 23 20 Blood Pressure 124/58 L 111/55 L Pulse Oximetry 99 98 Intake & Output 05/31/18 06/01/18 06/01/18 18:59 06:59 18:59 Intake Total 1050 / 1050 1911.2 / 1911.2 1100 / 1100 Output Total 1000 / 1000 800 / 800 Balance 50 / 50 1111.2 / 1111.2 1100 / 1100 Weight 56.9 kg Intake: IV 1000 / 1000 1811.2 / 1811.2 1100 / 1100 Precedex Inj 200 MCG In NS Inj 50 / 50 48 ML @ 0.2 MCG/KG/HR 2.79 mls/ hr IV.CONT TITRATE PRN Rx#: [id number] NS Inj 1,000 ML @ 84 mls/hr IV. 1000 / 1000 1000 / 1000 1000 / 1000 CONT .[id number] [facility] Rx#:[id number] Cardene Inj 25 MG In NS Inj 240 250 / 250 ML @ 5 MG/HR 50 mls/hr IV.CONT TITRATE PRN Rx#:[id number] MVI-12 Inj 10 ML Thiamine Inj 511.2 / 511.2 100 MG Folvite Inj 1 MG In NS Inj 500 ML @ 125 mls/hr IV.SIG Q24H [facility] Rx#:[id number] KCl 20 mEq Premix Inj 20 meq In 100 / 100 100 ml @ 50 mls/hr IV.SIG Q2H PRN Rx#:[id number] Oral 50 / 50 100 / 100 Output: Urine 1000 / 1000 Urine Amount (Catheter) 800 / 800 Female External 800 / 800 Other: Date of Last Bowel Movement 05/30/18 05/30/18 05/30/18 # Bowel Movements 0 - Urinary Catheter Management Female External Cath placed during this visit: no <Duke Palacios - Last Filed: 06/01/18 13:45> Assessment and Plan - Plan 78 yo female with vague constellation of symptoms GCS-[address] shows 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 hemorrhagic mass Will follow with you 05/30/18: cont neuro checks in ICU Dr. 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 Palacios NPO MN monday cont hold Plavix dw nursing avoid over sedation will follow 06/01/18: surgery planned Monday NPO MN monday cont hold Plavix will follow <Samanta Banda - Last Filed: 06/01/18 11:47> - Attending Attestation I have personally seen and examined the patient, reviewed pertinent labs and imaging studies. I agree with MS. Boogie ( Neurosurgery [employer]), assessment as well as plan of care. <Duke Palacios - Last Filed: 06/01/18 13:45>
--- NOTE | 2018-06-01 12:57 | P.PN ---
Subjective Interval history: She is awake and answers questions but confused. On O2 at 2 L maintain sat over 92. No cough or wheeze. Neurosurgical intervention planned for Monday. Has a nodule in the right upper lobe and will need tissue biopsy when clinically feasible. Physical Exam Vital signs: Vital Signs 05/31/18 13:00 05/31/18 13:15 05/31/18 13:30 Temperature 98.8 F Pulse Rate 98 H 102 H 95 H Respiratory Rate 22 25 H 20 Blood Pressure 142/63 H 157/65 H 142/65 H Pulse Oximetry 97 92 L 99 05/31/18 13:45 05/31/18 14:00 05/31/18 14:15 Temperature Pulse Rate 100 H 114 H 82 Respiratory Rate 20 41 H 18 Blood Pressure 144/65 H 164/73 H 138/62 Pulse Oximetry 99 83 L 100 05/31/18 14:30 05/31/18 14:45 05/31/18 15:00 Temperature Pulse Rate 92 H 94 H 78 Respiratory Rate 17 22 16 Blood Pressure 141/65 H 135/56 L 139/60 Pulse Oximetry 100 98 100 05/31/18 15:15 05/31/18 15:30 05/31/18 15:45 Temperature Pulse Rate 87 98 H 94 H Respiratory Rate 18 24 19 Blood Pressure 132/60 160/65 H 151/65 H Pulse Oximetry 100 99 100 05/31/18 16:00 05/31/18 16:15 05/31/18 16:30 Temperature 98.1 F Pulse Rate 84 88 89 Respiratory Rate 20 21 25 H Blood Pressure 133/63 151/63 H Pulse Oximetry 100 100 100 05/31/18 16:45 05/31/18 17:00 05/31/18 17:15 Temperature Pulse Rate 97 H 104 H 115 H Respiratory Rate 19 18 29 H Blood Pressure 149/67 H 175/72 H 197/84 H Pulse Oximetry 100 100 98 05/31/18 17:30 05/31/18 17:45 05/31/18 18:00 Temperature Pulse Rate 97 H 103 H 90 Respiratory Rate 21 23 18 Blood Pressure 143/63 H 156/65 H 134/60 Pulse Oximetry 99 100 100 05/31/18 18:15 05/31/18 18:30 05/31/18 18:45 Temperature Pulse Rate 101 H 92 H 113 H Respiratory Rate 20 20 28 H Blood Pressure 139/60 137/65 128/66 Pulse Oximetry 100 99 94 L 05/31/18 19:00 05/31/18 19:15 05/31/18 19:30 Temperature 97.7 F Pulse Rate 107 H 74 60 Respiratory Rate 19 15 16 Blood Pressure 123/57 L 96/47 L 90/42 L Pulse Oximetry 100 100 100 05/31/18 19:38 05/31/18 19:45 05/31/18 20:00 Temperature Pulse Rate 82 71 76 Respiratory Rate 17 20 Blood Pressure 102/54 L 107/57 L Pulse Oximetry 100 95 05/31/18 20:15 05/31/18 20:29 05/31/18 20:30 Temperature Pulse Rate 84 79 81 Respiratory Rate 21 24 18 Blood Pressure 117/58 L 117/58 L 151/60 H Pulse Oximetry 100 94 L 97 05/31/18 20:45 05/31/18 21:00 05/31/18 21:15 Temperature Pulse Rate 82 78 101 H Respiratory Rate 21 22 21 Blood Pressure 124/57 L 125/59 L 155/69 H Pulse Oximetry 100 92 L 91 L 05/31/18 21:30 05/31/18 21:45 05/31/18 21:50 Temperature Pulse Rate 85 96 H 67 Respiratory Rate 17 23 Blood Pressure 140/62 126/62 Pulse Oximetry 94 L 95 05/31/18 22:00 05/31/18 22:15 05/31/18 22:30 Temperature Pulse Rate 79 71 53 L Respiratory Rate 21 18 16 Blood Pressure 132/56 L 128/60 129/60 Pulse Oximetry 99 94 L 97 05/31/18 23:00 05/31/18 23:15 05/31/18 23:45 Temperature Pulse Rate 74 73 81 Respiratory Rate 23 23 24 Blood Pressure 141/64 H 130/58 L 141/72 H Pulse Oximetry 96 98 94 L 06/01/18 00:00 06/01/18 00:15 06/01/18 00:30 Temperature Pulse Rate 76 95 H 88 Respiratory Rate 23 28 H 24 Blood Pressure 164/73 H 157/67 H 152/72 H Pulse Oximetry 96 95 96 06/01/18 00:45 06/01/18 01:00 06/01/18 01:15 Temperature Pulse Rate 92 H 89 92 H Respiratory Rate 24 25 H 22 Blood Pressure 171/76 H 175/75 H 169/70 H Pulse Oximetry 98 97 98 06/01/18 01:30 06/01/18 01:37 06/01/18 01:39 Temperature Pulse Rate 101 H 96 H 102 H Respiratory Rate 29 H 28 H 26 H Blood Pressure 179/82 H 161/64 H 167/72 H Pulse Oximetry 91 L 83 L 94 L 06/01/18 01:40 06/01/18 01:45 06/01/18 02:00 Temperature Pulse Rate 94 H 99 H 96 H Respiratory Rate 25 H 30 H 28 H Blood Pressure 170/76 H 181/89 H 171/73 H Pulse Oximetry 98 97 93 L 06/01/18 02:15 06/01/18 02:30 06/01/18 02:45 Temperature Pulse Rate 100 H 123 H 114 H Respiratory Rate 28 H 30 H 34 H Blood Pressure 167/73 H 166/67 H 162/66 H Pulse Oximetry 95 91 L 91 L 06/01/18 03:00 06/01/18 03:15 06/01/18 03:30 Temperature Pulse Rate 108 H 114 H 119 H Respiratory Rate 26 H 28 H 27 H Blood Pressure 153/69 H 136/66 133/63 Pulse Oximetry 92 L 94 L 96 06/01/18 03:45 06/01/18 04:00 06/01/18 04:15 Temperature 98.4 F Pulse Rate 126 H 125 H 118 H Respiratory Rate 32 H 33 H 35 H Blood Pressure 154/79 H 137/60 137/63 Pulse Oximetry 95 93 L 94 L 06/01/18 04:30 06/01/18 04:45 06/01/18 05:30 Temperature Pulse Rate 121 H 119 H 96 H Respiratory Rate 31 H 34 H 27 H Blood Pressure 153/67 H 125/57 L 114/56 L Pulse Oximetry 96 95 93 L 06/01/18 05:45 06/01/18 06:00 06/01/18 06:15 Temperature Pulse Rate 73 81 72 Respiratory Rate 18 20 17 Blood Pressure 112/60 106/53 L 122/56 L Pulse Oximetry 97 98 98 06/01/18 07:00 06/01/18 07:15 06/01/18 07:30 Temperature Pulse Rate 87 95 H 110 H Respiratory Rate 21 23 20 Blood Pressure 114/56 L 120/58 L 121/58 L Pulse Oximetry 97 97 96 06/01/18 07:36 06/01/18 07:45 06/01/18 08:00 Temperature 98.5 F Pulse Rate 80 94 H Respiratory Rate 17 23 Blood Pressure 114/56 L 116/54 L Pulse Oximetry 96 98 96 06/01/18 08:15 06/01/18 08:30 06/01/18 08:45 Temperature Pulse Rate 71 65 77 Respiratory Rate 16 21 17 Blood Pressure 109/51 L 106/49 L 112/53 L Pulse Oximetry 97 95 100 06/01/18 09:00 06/01/18 09:15 06/01/18 09:30 Temperature Pulse Rate 76 92 H 84 Respiratory Rate 17 25 H 27 H Blood Pressure 114/55 L 119/58 L 124/60 Pulse Oximetry 100 100 98 06/01/18 09:45 06/01/18 10:00 06/01/18 10:15 Temperature Pulse Rate 58 L 68 63 Respiratory Rate 14 23 20 Blood Pressure 113/55 L 124/58 L 111/55 L Pulse Oximetry 97 99 98 Intake & Output 05/31/18 06/01/18 06/01/18 18:59 06:59 18:59 Intake Total 1050 / 1050 1911.2 / 1911.2 1000 / 1000 Output Total 1000 / 1000 800 / 800 Balance 50 / 50 1111.2 / 1111.2 1000 / 1000 Weight 56.9 kg Intake: IV 1000 / 1000 1811.2 / 1811.2 1000 / 1000 Precedex Inj 200 MCG In NS Inj 50 / 50 48 ML @ 0.2 MCG/KG/HR 2.79 mls/ hr IV.CONT TITRATE PRN Rx#: [id number] NS Inj 1,000 ML @ 84 mls/hr IV. 1000 / 1000 1000 / 1000 1000 / 1000 CONT .[id number] [facility] Rx#:[id number] Cardene Inj 25 MG In NS Inj 240 250 / 250 ML @ 5 MG/HR 50 mls/hr IV.CONT TITRATE PRN Rx#:[id number] MVI-12 Inj 10 ML Thiamine Inj 511.2 / 511.2 100 MG Folvite Inj 1 MG In NS Inj 500 ML @ 125 mls/hr IV.SIG Q24H [facility] Rx#:[id number] Oral 50 / 50 100 / 100 Output: Urine 1000 / 1000 Urine Amount (Catheter) 800 / 800 Female External 800 / 800 Other: Date of Last Bowel Movement 05/30/18 05/30/18 05/30/18 # Bowel Movements 0 Narrative: Awake answers questions averagely built elderly lady GENERAL: No acute distress SKIN: Warm and dry. HEAD: Atraumatic. Normocephalic. EYES: Pupils equal and round. No scleral icterus. No injection or drainage. ENT: No nasal bleeding or discharge. Mucous membranes pink and moist. NECK: Trachea midline. No JVD. CARDIOVASCULAR: Regular rate and rhythm. RESPIRATORY: No accessory muscle use. Few scattered wheezes bilaterally and breath sounds equal bilaterally. GASTROINTESTINAL: Abdomen soft, non-tender, nondistended. Hepatic and splenic margins not palpable. MUSCULOSKELETAL: Extremities without clubbing, cyanosis, or edema. No obvious deformities. NEUROLOGICAL: Awake and alert. Motor grossly within normal limits. Normal speech. PSYCHIATRIC: Seems confused. - Urinary Catheter Management Female External Cath placed during this visit: no Reason for continuing: Not indwelling catheter Results - Labs CBC & Chem 7: 06/01/18 03:40 06/01/18 03:40 Laboratory Results - last 24 hr 06/01/18 06/01/18 06/01/18 03:40 03:40 09:40 WBC 19.3 H RBC 4.58 Hgb 15.4 H Hct 46.0 MCV 100.4 H MCH 33.6 MCHC 33.4 RDW 14.7 Plt Count 237 MPV 7.7 Plt Funct P2Y12 Units 77 L Sodium 139 Potassium 2.9 L* D Chloride 104 Carbon Dioxide 21.6 Anion Gap 13 BUN 8 Creatinine 0.50 Estimated GFR Greater than 89 Random Glucose 102 Calcium 8.6 Magnesium 1.8 Total Bilirubin 1.1 H AST 54 H ALT 32 Alkaline Phosphatase 113 Total Protein 8.2 Albumin 3.6 - Imaging Impressions Head CTA 05/31/18 00:00 CONCLUSION: 1. There is no evidence for intracranial aneurysm or stenosis. 2. Intraventricular mass as previously described. 3. There is no evidence for mass at the cerebellopontine angle. The finding on the recent MRI was likely related to pulsation artifact in this region. . Chest X-Ray 06/01/18 00:00 CONCLUSION: No acute cardiopulmonary disease identified. Assessment and Plan - Assessment (1) COPD (chronic obstructive pulmonary disease) Code(s): J44.9 - Chronic obstructive pulmonary disease, unspecified Status: Acute (2) Right upper lobe pulmonary nodule Code(s): R91.1 - Solitary pulmonary nodule Status: Acute (3) Intraventricular hemorrhage, nontraumatic Code(s): I61.5 - Nontraumatic intracerebral hemorrhage, intraventricular Status: Acute (4) Hypertensive emergency Code(s): I16.1 - Hypertensive emergency Status: Acute (5) Metabolic encephalopathy Code(s): G93.41 - Metabolic encephalopathy Status: Acute (6) Altered mental status Code(s): R41.82 - Altered mental status, unspecified Status: Acute (7) History of peripheral arterial disease Code(s): Z86.79 - Personal history of other diseases of the circulatory system Status: Chronic (8) History of hypertension Code(s): Z86.79 - Personal history of other diseases of the circulatory system Status: Chronic (9) Cessation of tobacco use in previous 12 months Code(s): Z87.891 - Personal history of nicotine dependence Status: Chronic - Plan #1 O2 nasal cannula 2 L. 2. DuoNeb nebs 4 times daily. 3. PFT with bronchodilator 4. neurosurgical evaluation 5. chest x-ray CBC BMP 6 Symbicort 160 about 4.5 mcg 1 puff twice daily
[2018-06-01] MEDS: Labetalol HCl Inj 100 MG/20 ML Vial IV.PUSH PRN (14:02)
[2018-06-01] MEDS: Morphine Inj 4 MG/ML Vial IV.PUSH PRN (18:06)
[2018-06-01] MEDS: Budesonide-Formoterol 160/4.5 MCG 6 GM Inhaler INH SCH (22:04)
[2018-06-02] MEDS: Dexmedetomidine Inj 200 MCG in Sodium Chlor 0.9% Inj 48 ML IV.CONT PRN ×2 (02:59→13:30)
[2018-06-02] MEDS: Chlorhexidine Gluconate 2% 1 Pack (2 Cloths) TOPICAL SCH (03:00)
[2018-06-02] MEDS: Sod Chloride 0.9% Inj 1,000 ML IV.CONT SCH ×3 (03:01→15:20)
[2018-06-02 05:41] LABS: Hematocrit 37.4 % (35.0-46.0); Hemoglobin 12.5 gm/dL (11.6-15.3); Mean Corpuscular HGB Conc 33.4 % (32.0-36.0); Mean Corpuscular Hemoglobin 33.7 pg (27.0-34.0); Mean Platelet Volume 8.1 fL (7.0-11.0); Platelet Count 156 th/mm3 (150-450); Red Cell Distribution Width 14.1 % (11.6-17.2)
[2018-06-02 06:08] LABS: Albumin 2.9 g/dL (3.4-5.0); Anion Gap 10 meq/L (5-15); Aspartate Aminotransferase 46 U/L (15-37); Blood Urea Nitrogen 15 mg/dL (7-18); Calcium 8.3 mg/dL (8.5-10.1); Chloride 108 meq/L (98-107); Glomerular Filtration Rate Greater Than 89 mL/min (>89); Glucose,Random 85 mg/dL (74-106); Potassium 3.3 meq/L (3.5-5.1); Sodium 142 meq/L (136-145)
[2018-06-02 06:12] LABS: Alanine Aminotransferase 30 U/L (10-53); Alkaline Phosphatase 80 U/L (45-117); Total Protein 6.1 g/dL (6.4-8.2)
[2018-06-02] MEDS: Senna/Docusate Sodium 8.6/50 MG Tablet PO SCH ×2 (08:11→21:10)
[2018-06-02] MEDS: Lisinopril 20 MG Tablet PO SCH (08:45)
[2018-06-02] MEDS: Metoprolol Tartrate 50 MG Tablet PO SCH ×2 (08:45→21:10)
[2018-06-02] MEDS: Famotidine PF Inj 20 MG/2 ML Vial IV.PUSH SCH ×2 (08:45→21:11)
[2018-06-02] MEDS: amLODIPine 5 MG Tablet PO SCH (08:45)
[2018-06-02] MEDS: Budesonide-Formoterol 160/4.5 MCG 6 GM Inhaler INH SCH ×2 (08:47→21:10)
--- NOTE | 2018-06-02 09:58 | P.PNNS ---
Subjective Interval history: No acute events overnight. Patient denies much pain today. Says that she is feeling well. Physical Exam Vital signs: Vital Signs 06/01/18 10:00 06/01/18 10:15 06/01/18 10:30 Temperature Pulse Rate 68 63 70 Respiratory Rate 23 20 18 Blood Pressure 124/58 L 111/55 L 112/55 L Pulse Oximetry 99 98 97 06/01/18 10:45 06/01/18 11:00 06/01/18 11:23 Temperature Pulse Rate 69 77 Respiratory Rate 18 23 Blood Pressure 117/56 L 114/55 L Pulse Oximetry 99 96 93 L 06/01/18 11:37 06/01/18 11:52 06/01/18 12:00 Temperature 98.7 F Pulse Rate 72 70 Respiratory Rate 23 18 Blood Pressure 136/61 112/54 L Pulse Oximetry 98 100 06/01/18 12:07 06/01/18 12:22 06/01/18 12:37 Temperature Pulse Rate 72 77 Respiratory Rate 22 20 18 Blood Pressure 117/53 L 129/59 L 151/67 H Pulse Oximetry 100 98 99 06/01/18 12:52 06/01/18 13:00 06/01/18 13:07 Temperature Pulse Rate 75 76 76 Respiratory Rate 21 18 22 Blood Pressure 142/60 H 131/59 L Pulse Oximetry 97 97 98 06/01/18 13:22 06/01/18 13:37 06/01/18 13:52 Temperature Pulse Rate 73 79 80 Respiratory Rate 18 18 18 Blood Pressure 138/62 129/61 163/104 H Pulse Oximetry 96 95 94 L 06/01/18 13:54 06/01/18 14:00 06/01/18 14:09 Temperature Pulse Rate 100 H 65 79 Respiratory Rate 20 23 20 Blood Pressure 157/68 H 154/67 H Pulse Oximetry 97 97 95 06/01/18 14:22 06/01/18 14:37 06/01/18 15:01 Temperature Pulse Rate 81 98 H 81 Respiratory Rate 20 20 Blood Pressure 124/56 L 170/75 H Pulse Oximetry 96 96 06/01/18 15:07 06/01/18 15:31 06/01/18 15:37 Temperature Pulse Rate 74 91 H 88 Respiratory Rate 24 20 20 Blood Pressure 110/53 L 170/69 H 168/70 H Pulse Oximetry 97 98 06/01/18 15:52 06/01/18 16:00 06/01/18 16:07 Temperature 98.5 F Pulse Rate 116 H 95 H Respiratory Rate 20 18 20 Blood Pressure 169/88 H 134/65 Pulse Oximetry 06/01/18 16:22 06/01/18 16:37 06/01/18 16:52 Temperature Pulse Rate 98 H 103 H 101 H Respiratory Rate 20 20 20 Blood Pressure 141/64 H 157/74 H 155/74 H Pulse Oximetry 75 L 95 06/01/18 17:00 06/01/18 17:07 06/01/18 17:22 Temperature Pulse Rate 116 H 115 H 117 H Respiratory Rate 20 20 22 Blood Pressure 155/69 H 153/68 H Pulse Oximetry 95 96 94 L 06/01/18 17:37 06/01/18 17:42 06/01/18 17:52 Temperature Pulse Rate 111 H 111 H 111 H Respiratory Rate 20 35 H 35 H Blood Pressure 174/76 H 147/65 H 155/66 H Pulse Oximetry 94 L 95 95 06/01/18 18:00 06/01/18 18:07 06/01/18 18:22 Temperature Pulse Rate 114 H 110 H 69 Respiratory Rate 40 H 29 H 18 Blood Pressure 150/65 H 99/53 L Pulse Oximetry 96 95 95 06/01/18 19:00 06/01/18 19:37 06/01/18 19:52 Temperature 99.1 F Pulse Rate 78 90 67 Respiratory Rate 22 23 15 Blood Pressure 95/50 L 105/53 L 129/58 L Pulse Oximetry 96 97 97 06/01/18 20:00 06/01/18 20:07 06/01/18 20:22 Temperature Pulse Rate 86 97 H 103 H Respiratory Rate 24 26 H 29 H Blood Pressure 134/61 126/56 L 142/63 H Pulse Oximetry 98 97 97 06/01/18 21:00 06/01/18 21:52 06/01/18 22:00 Temperature 99.1 F Pulse Rate 89 111 H 77 Respiratory Rate 20 22 Blood Pressure 98/53 L 152/66 H Pulse Oximetry 93 L 97 06/01/18 23:00 06/01/18 23:07 06/02/18 00:00 Temperature Pulse Rate 85 91 H Respiratory Rate 21 24 Blood Pressure 118/59 L 111/55 L 136/63 Pulse Oximetry 96 95 01/19/19 00:22 06/02/18 00:37 06/02/18 00:52 Temperature Pulse Rate 86 85 92 H Respiratory Rate 26 H 25 H 27 H Blood Pressure 130/60 148/66 H 155/70 H Pulse Oximetry 96 96 94 L 06/02/18 01:00 06/02/18 01:22 06/02/18 01:52 Temperature Pulse Rate 64 76 59 L Respiratory Rate 16 21 16 Blood Pressure 111/57 L 109/55 L 92/49 L Pulse Oximetry 94 L 97 95 06/02/18 02:00 06/02/18 02:22 06/02/18 02:37 Temperature Pulse Rate 57 L 53 L Respiratory Rate 17 17 Blood Pressure 97/50 L 97/50 L 93/54 L Pulse Oximetry 95 94 L 06/02/18 02:52 06/02/18 03:07 06/02/18 03:22 Temperature Pulse Rate 59 L 61 54 L Respiratory Rate 16 17 15 Blood Pressure 99/47 L 115/53 L 95/48 L Pulse Oximetry 97 98 97 06/02/18 03:52 06/02/18 03:53 06/02/18 04:00 Temperature 97.5 F L Pulse Rate 52 L 60 78 Respiratory Rate 17 20 29 H Blood Pressure 97/50 L 88/49 L Pulse Oximetry 94 L 95 06/02/18 05:00 06/02/18 05:07 06/02/18 05:22 Temperature Pulse Rate 49 L 47 L 48 L Respiratory Rate 16 17 16 Blood Pressure 95/48 L 84/46 L 98/48 L Pulse Oximetry 96 94 L 97 06/02/18 05:42 06/02/18 05:52 06/02/18 06:00 Temperature Pulse Rate 48 L 75 50 L Respiratory Rate 15 15 16 Blood Pressure 101/57 L 129/58 L 100/50 L Pulse Oximetry 96 97 95 06/02/18 07:00 06/02/18 07:22 06/02/18 07:37 Temperature Pulse Rate 60 61 69 Respiratory Rate 17 21 18 Blood Pressure 103/50 L 101/51 L Pulse Oximetry 98 94 L 98 06/02/18 07:52 06/02/18 08:00 06/02/18 08:07 Temperature 97.8 F Pulse Rate 65 62 86 Respiratory Rate 18 18 20 Blood Pressure 120/60 133/59 L Pulse Oximetry 91 L 94 L 91 L 06/02/18 08:22 06/02/18 08:37 06/02/18 08:52 Temperature Pulse Rate 70 71 64 Respiratory Rate 20 20 20 Blood Pressure 120/55 L 126/63 113/52 L Pulse Oximetry 95 95 97 Intake & Output 06/01/18 06/02/18 06/02/18 18:59 06:59 18:59 Intake Total 1900 / 1900 1050 / 1050 1000 / 1000 Output Total 500 / 500 Balance 1400 / 1400 1050 / 1050 1000 / 1000 Weight 52.1 kg Intake: IV 1700 / 1700 1050 / 1050 1000 / 1000 Precedex Inj 200 MCG In NS Inj 50 / 50 50 / 50 48 ML @ 0.2 MCG/KG/HR 2.79 mls/ hr IV.CONT TITRATE PRN Rx#: [id number] NS Inj 1,000 ML @ 84 mls/hr IV. 1000 / 1000 1000 / 1000 1000 / 1000 CONT .[id number] ALEXIS Rx#:[id number] Cardene Inj 25 MG In NS Inj 240 250 / 250 ML @ 5 MG/HR 50 mls/hr IV.CONT TITRATE PRN Rx#:[id number] KCl 20 mEq Premix Inj 20 meq In 400 / 400 100 ml @ 50 mls/hr IV.SIG Q2H PRN Rx#:[id number] Oral 200 / 200 Output: Urine 500 / 500 Other: # Incontinent Voids 3 # Urine Diapers 1 Date of Last Bowel Movement 06/01/18 06/01/18 06/01/18 # Bowel Movements 1 0 - Routine Neurological Exam Awake, keeps eyes closed most of the time but will open them to command. Oriented to first name only, could not state her last name. Not oriented to place or year. Follows commands briskly x4, though she had trouble giving a thumbs up and instead would show the entirety of her hand. Antigravity throughout. Restraints in place due to intermittent agitation. - Urinary Catheter Management Female External Cath placed during this visit: no Reason for continuing: Not indwelling catheter Assessment and Plan - Plan 78 yo female with vague constellation of symptoms GCS-[address] shows 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 hemorrhagic mass Will follow with you 05/30/18: cont neuro checks in ICU Dr. 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 at midnight on Monday night into Monday Minimize sedating meds, etc.
--- NOTE | 2018-06-02 10:58 | P.PNPL ---
Subjective Interval history: Patient is lying in bed in NAD. On 2L oxygen. Afebrile. Physical Exam Vital signs: Vital Signs 06/01/18 11:00 06/01/18 11:23 06/01/18 11:37 Temperature Pulse Rate 77 Respiratory Rate 23 Blood Pressure 114/55 L 136/61 Pulse Oximetry 96 93 L 06/01/18 11:52 06/01/18 12:00 06/01/18 12:07 Temperature 98.7 F Pulse Rate 72 70 72 Respiratory Rate 23 18 22 Blood Pressure 112/54 L 117/53 L Pulse Oximetry 98 100 100 06/01/18 12:22 06/01/18 12:37 06/01/18 12:52 Temperature Pulse Rate 77 75 Respiratory Rate 20 18 21 Blood Pressure 129/59 L 151/67 H 142/60 H Pulse Oximetry 98 99 97 06/01/18 13:00 06/01/18 13:07 06/01/18 13:22 Temperature Pulse Rate 76 76 73 Respiratory Rate 18 22 18 Blood Pressure 131/59 L 138/62 Pulse Oximetry 97 98 96 06/01/18 13:37 06/01/18 13:52 06/01/18 13:54 Temperature Pulse Rate 79 80 100 H Respiratory Rate 18 18 20 Blood Pressure 129/61 163/104 H 157/68 H Pulse Oximetry 95 94 L 97 06/01/18 14:00 06/01/18 14:09 06/01/18 14:22 Temperature Pulse Rate 65 79 81 Respiratory Rate 23 20 20 Blood Pressure 154/67 H 124/56 L Pulse Oximetry 97 95 96 06/01/18 14:37 06/01/18 15:01 06/01/18 15:07 Temperature Pulse Rate 98 H 81 74 Respiratory Rate 20 24 Blood Pressure 170/75 H 110/53 L Pulse Oximetry 96 06/01/18 15:31 06/01/18 15:37 06/01/18 15:52 Temperature Pulse Rate 91 H 88 Respiratory Rate 20 20 20 Blood Pressure 170/69 H 168/70 H 169/88 H Pulse Oximetry 97 98 06/01/18 16:00 06/01/18 16:07 06/01/18 16:22 Temperature 98.5 F Pulse Rate 116 H 95 H 98 H Respiratory Rate 18 20 20 Blood Pressure 134/65 141/64 H Pulse Oximetry 06/01/18 16:37 06/01/18 16:52 06/01/18 17:00 Temperature Pulse Rate 103 H 101 H 116 H Respiratory Rate 20 20 20 Blood Pressure 157/74 H 155/74 H Pulse Oximetry 75 L 95 95 06/01/18 17:07 06/01/18 17:22 06/01/18 17:37 Temperature Pulse Rate 115 H 117 H 111 H Respiratory Rate 20 22 20 Blood Pressure 155/69 H 153/68 H 174/76 H Pulse Oximetry 96 94 L 94 L 06/01/18 17:42 06/01/18 17:52 06/01/18 18:00 Temperature Pulse Rate 111 H 111 H 114 H Respiratory Rate 35 H 35 H 40 H Blood Pressure 147/65 H 155/66 H Pulse Oximetry 95 95 96 06/01/18 18:07 06/01/18 18:22 06/01/18 19:00 Temperature 99.1 F Pulse Rate 110 H 69 78 Respiratory Rate 29 H 18 22 Blood Pressure 150/65 H 99/53 L 95/50 L Pulse Oximetry 95 95 96 06/01/18 19:37 06/01/18 19:52 06/01/18 20:00 Temperature Pulse Rate 90 67 86 Respiratory Rate 23 15 24 Blood Pressure 105/53 L 129/58 L 134/61 Pulse Oximetry 97 97 98 06/01/18 20:07 06/01/18 20:22 06/01/18 21:00 Temperature Pulse Rate 97 H 103 H 89 Respiratory Rate 26 H 29 H 20 Blood Pressure 126/56 L 142/63 H 98/53 L Pulse Oximetry 97 97 93 L 06/01/18 21:52 06/01/18 22:00 06/01/18 23:00 Temperature 99.1 F Pulse Rate 111 H 77 85 Respiratory Rate 22 21 Blood Pressure 152/66 H 118/59 L Pulse Oximetry 97 96 06/01/18 23:07 06/02/18 00:00 06/02/18 00:22 Temperature Pulse Rate 91 H 86 Respiratory Rate 24 26 H Blood Pressure 111/55 L 136/63 130/60 Pulse Oximetry 95 96 06/02/18 00:37 06/02/18 00:52 06/02/18 01:00 Temperature Pulse Rate 85 92 H 64 Respiratory Rate 25 H 27 H 16 Blood Pressure 148/66 H 155/70 H 111/57 L Pulse Oximetry 96 94 L 94 L 06/02/18 01:22 06/02/18 01:52 06/02/18 02:00 Temperature Pulse Rate 76 59 L 57 L Respiratory Rate 21 16 17 Blood Pressure 109/55 L 92/49 L 97/50 L Pulse Oximetry 97 95 95 06/02/18 02:22 06/02/18 02:37 06/02/18 02:52 Temperature Pulse Rate 53 L 59 L Respiratory Rate 17 16 Blood Pressure 97/50 L 93/54 L 99/47 L Pulse Oximetry 94 L 97 06/02/18 03:07 06/02/18 03:22 06/02/18 03:52 Temperature Pulse Rate 61 54 L 52 L Respiratory Rate 17 15 17 Blood Pressure 115/53 L 95/48 L 97/50 L Pulse Oximetry 98 97 94 L 06/02/18 03:53 06/02/18 04:00 06/02/18 05:00 Temperature 97.5 F L Pulse Rate 60 78 49 L Respiratory Rate 20 29 H 16 Blood Pressure 88/49 L 95/48 L Pulse Oximetry 95 96 06/02/18 05:07 06/02/18 05:22 06/02/18 05:42 Temperature Pulse Rate 47 L 48 L 48 L Respiratory Rate 17 16 15 Blood Pressure 84/46 L 98/48 L 101/57 L Pulse Oximetry 94 L 97 96 06/02/18 05:52 06/02/18 06:00 06/02/18 07:00 Temperature Pulse Rate 75 50 L 60 Respiratory Rate 15 16 17 Blood Pressure 129/58 L 100/50 L Pulse Oximetry 97 95 98 06/02/18 07:22 06/02/18 07:37 06/02/18 07:52 Temperature Pulse Rate 61 69 65 Respiratory Rate 21 18 18 Blood Pressure 103/50 L 101/51 L 120/60 Pulse Oximetry 94 L 98 91 L 06/02/18 08:00 06/02/18 08:07 06/02/18 08:22 Temperature 97.8 F Pulse Rate 62 86 70 Respiratory Rate 18 20 20 Blood Pressure 133/59 L 120/55 L Pulse Oximetry 94 L 91 L 95 06/02/18 08:37 06/02/18 08:52 06/02/18 09:00 Temperature Pulse Rate 71 64 63 Respiratory Rate 20 20 20 Blood Pressure 126/63 113/52 L Pulse Oximetry 95 97 97 06/02/18 09:07 06/02/18 09:22 06/02/18 09:37 Temperature Pulse Rate 64 60 65 Respiratory Rate 20 23 20 Blood Pressure 121/57 L 116/72 129/58 L Pulse Oximetry 96 97 95 06/02/18 09:52 06/02/18 10:00 06/02/18 10:07 Temperature Pulse Rate 57 L 58 L 67 Respiratory Rate 20 20 20 Blood Pressure 124/58 L 106/55 L Pulse Oximetry 97 96 96 06/02/18 10:22 Temperature Pulse Rate 60 Respiratory Rate 20 Blood Pressure 119/57 L Pulse Oximetry 93 L Intake & Output 06/01/18 06/02/18 06/02/18 18:59 06:59 18:59 Intake Total 1900 / 1900 1050 / 1050 1000 / 1000 Output Total 500 / 500 Balance 1400 / 1400 1050 / 1050 1000 / 1000 Weight 52.1 kg Intake: IV 1700 / 1700 1050 / 1050 1000 / 1000 Precedex Inj 200 MCG In NS Inj 50 / 50 50 / 50 48 ML @ 0.2 MCG/KG/HR 2.79 mls/ hr IV.CONT TITRATE PRN Rx#: [id number] NS Inj 1,000 ML @ 84 mls/hr IV. 1000 / 1000 1000 / 1000 1000 / 1000 CONT .[id number] [facility] Rx#:[id number] Cardene Inj 25 MG In NS Inj 240 250 / 250 ML @ 5 MG/HR 50 mls/hr IV.CONT TITRATE PRN Rx#:[id number] KCl 20 mEq Premix Inj 20 meq In 400 / 400 100 ml @ 50 mls/hr IV.SIG Q2H PRN Rx#:[id number] Oral 200 / 200 Output: Urine 500 / 500 Other: # Incontinent Voids 3 # Urine Diapers 1 Date of Last Bowel Movement 06/01/18 06/01/18 06/01/18 # Bowel Movements 1 0 - Constitutional no acute distress - Routine HEENT Exam Head: Present: normocephalic, atraumatic Eye: Present: EOMI, PERRL, normal accommodation, conjunctivae pink ENT: Present: mucous membranes moist - Routine Neck Exam Present: supple, full ROM, trachea midline - Routine Respiratory Exam Present: CTA bilaterally - Routine Cardiovascular Exam Present: RRR, S1, S2 - Routine Abdominal Exam Present: soft, normoactive bowel sounds - Routine Extremities Exam Present: pulses intact - Routine Skin Exam Present: intact, dry - Routine Neurological Exam Present: alert - Urinary Catheter Management Female External Cath placed during this visit: no Reason for continuing: Not indwelling catheter Assessment and Plan - Assessment (1) Intraventricular hemorrhage, nontraumatic Code(s): I61.5 - Nontraumatic intracerebral hemorrhage, intraventricular Status: Acute (2) Hypertensive emergency Code(s): I16.1 - Hypertensive emergency Status: Acute (3) Metabolic encephalopathy Code(s): G93.41 - Metabolic encephalopathy Status: Acute (4) Altered mental status Code(s): R41.82 - Altered mental status, unspecified Status: Acute (5) History of peripheral arterial disease Code(s): Z86.79 - Personal history of other diseases of the circulatory system Status: Chronic (6) History of hypertension Code(s): Z86.79 - Personal history of other diseases of the circulatory system Status: Chronic (7) Cessation of tobacco use in previous 12 months Code(s): Z87.891 - Personal history of nicotine dependence Status: Chronic - Plan 1)Resp Insuff 2)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 3 mm subpleural nodules LLL 6)HTN Plan Continue with oxygen keep sats >92% Bronchodilators ( DuoNeb, Symbicort) For craniotomy, surgical resection of intraventricular mass on Monday Will need lung biopsy when more stable to r/o bronchogenic ca CXR 06/01: No acute disease Continue treatment plan.
[2018-06-02] MEDS: Labetalol HCl Inj 100 MG/20 ML Vial IV.PUSH PRN (15:58)
[2018-06-02] MEDS: Morphine Inj 4 MG/ML Vial IV.PUSH PRN ×2 (16:47→21:11)
[2018-06-02] MEDS: Haloperidol Inj 5 MG/ML Ampul IV.PUSH PRN (17:04)
--- NOTE | 2018-06-02 18:45 | P.PNCC ---
Subjective Subjective Remarks/Hospital Course: Patient is a 78-year-old female with past medical history significant for hypertension, peripheral arterial disease, history of vascular intervention/ stenting, arthritis who [facility] with mostly nonspecific complaints of memory loss and hallucinations for 1 week and worsening tremors of the right arm. Further workup in the emergency department showed subacute intraventricular hemorrhage into the left lateral ventricle and a focal thrombus that may be obstructing foramina of [place]. There was enlargement of the left lateral ventricle compared to the prior MRI. Also trace blood in the occipital horn of left lateral ventricle. With evidence of intraventricular hemorrhage patient was transferred emergently to [facility] for neurosurgery consult. I evaluated the patient after arrival to the ICU. Patient is profoundly hypertensive systolic blood pressure 190-200. IV labetalol 20 mg IV push given followed by Cardene infusion started. On exam patient did not appear to be in distress. No definite focal deficit however patient is oriented only to person. Reviewed CT scan with neurosurgery Dr. Palacios. On his review CT shows 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 hemorrhagic mass at foramen of Bell with asymmetric left sided ventricular dilatation. Stat MRI of the brain with and without contrast ordered. Started on Cardene infusion with target systolic blood pressure less than 140 SUBJ 05/30/18: MRI brain showed 2.3 x 1.7 cm mass within the body of the left lateral ventricle measuring 2.3 x 1.7 cm left lateral ventricle is prominent may be related to production of CSF from this mass. 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 Additional mass in the cerebellopontine angle on the left compressing upon the brainstem measuring 1.8 x 1.4 cm. Slightly more agitated and confused today. Partly secondary to mass partly could be alcohol withdrawal. Placed on as needed Haldol 05/31: Patient remains sedated received Ativan a few hours before. Currently for that reason Precedex is being held. Wakes up follows some commands. Oriented to person only. Plan for craniotomy and resection of intraventricular mass scheduled tentatively for Monday. Ct chest: 1.6 x 1.1 cm spiculated RUL nodule concerning for metastasis or primary lung malignancy. 1.1 x 1.4 cm soft tissue density inferior lateral margin of the right breast implant ?focal disruption vs breast mass. CT abdomen pelvis: 1.3 cm left adrenal mass concerning for metastatic disease given findings of brain and lung mass. 1.6 cm indeterminate low-density lesion in the posterior right lobe of the liver with numerous additional subcentimeter hypodense lesions which are too small to fully characterize. Metastatic disease cannot be entirely excluded, possibly cysts. 06/01: Remains confused slightly agitated remains on Precedex. CT angiogram yesterday of the brain showed previously demonstrated intraventricular mass however no cerebellopontine angle mass. WBC count elevated to 19.1 no fever. Will check UA-previously ordered UA had not been done. Check blood cultures, chest x-ray is clear. Continue to hold Plavix 06/02: Plan is for resection of brain mass on Monday. Patient continues breathing comfortably. Objective Vital Signs / I&O: Vital Signs 06/01/18 19:00 06/01/18 19:37 06/01/18 19:52 Temperature 99.1 F Pulse Rate 78 90 67 Respiratory Rate 22 23 15 Blood Pressure 95/50 L 105/53 L 129/58 L Pulse Oximetry 96 97 97 06/01/18 20:00 06/01/18 20:07 06/01/18 20:22 Temperature Pulse Rate 86 97 H 103 H Respiratory Rate 24 26 H 29 H Blood Pressure 134/61 126/56 L 142/63 H Pulse Oximetry 98 97 97 06/01/18 21:00 06/01/18 21:52 06/01/18 22:00 Temperature 99.1 F Pulse Rate 89 111 H 77 Respiratory Rate 20 22 Blood Pressure 98/53 L 152/66 H Pulse Oximetry 93 L 97 06/01/18 23:00 06/01/18 23:07 06/02/18 00:00 Temperature Pulse Rate 85 91 H Respiratory Rate 21 24 Blood Pressure 118/59 L 111/55 L 136/63 Pulse Oximetry 96 95 06/02/18 00:22 06/02/18 00:37 06/02/18 00:52 Temperature Pulse Rate 86 85 92 H Respiratory Rate 26 H 25 H 27 H Blood Pressure 130/60 148/66 H 155/70 H Pulse Oximetry 96 96 94 L 06/02/18 01:00 06/02/18 01:22 06/02/18 01:52 Temperature Pulse Rate 64 76 59 L Respiratory Rate 16 21 16 Blood Pressure 111/57 L 109/55 L 92/49 L Pulse Oximetry 94 L 97 95 06/02/18 02:00 06/02/18 02:22 06/02/18 02:37 Temperature Pulse Rate 57 L 53 L Respiratory Rate 17 17 Blood Pressure 97/50 L 97/50 L 93/54 L Pulse Oximetry 95 94 L 06/02/18 02:52 06/02/18 03:07 06/02/18 03:22 Temperature Pulse Rate 59 L 61 54 L Respiratory Rate 16 17 15 Blood Pressure 99/47 L 115/53 L 95/48 L Pulse Oximetry 97 98 97 06/02/18 03:52 06/02/18 03:53 06/02/18 04:00 Temperature 97.5 F L Pulse Rate 52 L 60 78 Respiratory Rate 17 20 29 H Blood Pressure 97/50 L 88/49 L Pulse Oximetry 94 L 95 06/02/18 05:00 06/02/18 05:07 06/02/18 05:22 Temperature Pulse Rate 49 L 47 L 48 L Respiratory Rate 16 17 16 Blood Pressure 95/48 L 84/46 L 98/48 L Pulse Oximetry 96 94 L 97 06/02/18 05:42 06/02/18 05:52 06/02/18 06:00 Temperature Pulse Rate 48 L 75 50 L Respiratory Rate 15 15 16 Blood Pressure 101/57 L 129/58 L 100/50 L Pulse Oximetry 96 97 95 06/02/18 07:00 06/02/18 07:22 06/02/18 07:37 Temperature Pulse Rate 60 61 69 Respiratory Rate 17 21 18 Blood Pressure 103/50 L 101/51 L Pulse Oximetry 98 94 L 98 06/02/18 07:52 06/02/18 08:00 06/02/18 08:07 Temperature 97.8 F Pulse Rate 65 62 86 Respiratory Rate 18 18 20 Blood Pressure 120/60 133/59 L Pulse Oximetry 91 L 94 L 91 L 06/02/18 08:22 06/02/18 08:37 06/02/18 08:52 Temperature Pulse Rate 70 71 64 Respiratory Rate 20 20 20 Blood Pressure 120/55 L 126/63 113/52 L Pulse Oximetry 95 95 97 06/02/18 09:00 06/02/18 09:07 06/02/18 09:22 Temperature Pulse Rate 63 64 60 Respiratory Rate 20 20 23 Blood Pressure 121/57 L 116/72 Pulse Oximetry 97 96 97 06/02/18 09:37 06/02/18 09:52 06/02/18 10:00 Temperature Pulse Rate 65 57 L 58 L Respiratory Rate 20 20 20 Blood Pressure 129/58 L 124/58 L Pulse Oximetry 95 97 96 06/02/18 10:07 06/02/18 10:22 06/02/18 10:37 Temperature Pulse Rate 67 60 61 Respiratory Rate 20 20 20 Blood Pressure 106/55 L 119/57 L 114/56 L Pulse Oximetry 96 93 L 94 L 06/02/18 10:52 06/02/18 11:00 06/02/18 11:07 Temperature Pulse Rate 58 L 56 L 57 L Respiratory Rate 20 23 21 Blood Pressure 110/55 L 91/46 L Pulse Oximetry 96 97 95 06/02/18 11:22 06/02/18 11:37 06/02/18 11:52 Temperature Pulse Rate 57 L 56 L 46 L Respiratory Rate 22 23 20 Blood Pressure 123/57 L 112/55 L 96/46 L Pulse Oximetry 97 94 L 98 06/02/18 12:00 06/02/18 12:09 06/02/18 12:22 Temperature 98 F Pulse Rate 69 64 58 L Respiratory Rate 20 19 24 Blood Pressure 127/61 126/59 L Pulse Oximetry 98 97 99 06/02/18 12:37 06/02/18 12:52 06/02/18 13:00 Temperature Pulse Rate 73 53 L 48 L Respiratory Rate 18 16 16 Blood Pressure 138/64 127/57 L Pulse Oximetry 95 99 100 06/02/18 13:07 06/02/18 13:22 06/02/18 13:37 Temperature Pulse Rate 57 L 58 L 75 Respiratory Rate 20 19 20 Blood Pressure 118/58 L 139/60 127/58 L Pulse Oximetry 97 100 96 06/02/18 13:52 06/02/18 13:53 06/02/18 14:00 Temperature Pulse Rate 55 L 48 L Respiratory Rate 20 Blood Pressure 116/56 L Pulse Oximetry 100 98 95 06/02/18 14:07 06/02/18 14:32 06/02/18 14:37 Temperature Pulse Rate 63 48 L Respiratory Rate 20 20 Blood Pressure 124/59 L 134/60 120/60 Pulse Oximetry 99 96 95 06/02/18 14:52 06/02/18 15:00 06/02/18 15:07 Temperature Pulse Rate 49 L 57 L 61 Respiratory Rate 15 21 23 Blood Pressure 135/65 153/66 H Pulse Oximetry 99 100 99 06/02/18 15:22 06/02/18 15:37 06/02/18 15:52 Temperature Pulse Rate 80 78 84 Respiratory Rate 20 23 20 Blood Pressure 145/65 H 139/64 150/80 H Pulse Oximetry 93 L 98 98 06/02/18 15:55 06/02/18 16:00 06/02/18 16:05 Temperature Pulse Rate 94 H 87 83 Respiratory Rate 20 20 20 Blood Pressure 145/80 H 140/84 135/60 Pulse Oximetry 94 L 96 95 06/02/18 16:08 06/02/18 16:22 06/02/18 16:41 Temperature Pulse Rate 80 Respiratory Rate 20 Blood Pressure 143/81 H 148/81 H 150/80 H Pulse Oximetry 95 96 95 06/02/18 16:45 06/02/18 16:47 06/02/18 16:52 Temperature Pulse Rate 64 82 84 Respiratory Rate 12 19 20 Blood Pressure 151/82 H 148/74 H 140/74 Pulse Oximetry 94 L 95 92 L 06/02/18 16:58 06/02/18 17:00 06/02/18 17:05 Temperature Pulse Rate 98 H 101 H 106 H Respiratory Rate 20 20 20 Blood Pressure 150/84 H 153/89 H 160/87 H Pulse Oximetry 94 L 92 L 94 L 06/02/18 17:07 06/02/18 17:11 06/02/18 17:15 Temperature Pulse Rate 106 H 101 H 96 H Respiratory Rate 20 20 18 Blood Pressure 156/79 H 157/80 H 149/72 H Pulse Oximetry 94 L 94 L 95 06/02/18 17:22 06/02/18 17:24 06/02/18 17:37 Temperature Pulse Rate 96 H 94 H 72 Respiratory Rate 20 20 23 Blood Pressure 174/75 H 174/75 H 119/56 L Pulse Oximetry 93 L 93 L 92 L 06/02/18 17:52 06/02/18 18:00 Temperature Pulse Rate 89 92 H Respiratory Rate 22 20 Blood Pressure 152/78 H Pulse Oximetry 93 L 93 L Intake & Output 06/01/18 06/02/18 06/02/18 18:59 06:59 18:59 Intake Total 1900 / 1900 1050 / 1050 1250 / 1250 Output Total 500 / 500 Balance 1400 / 1400 1050 / 1050 1250 / 1250 Weight 52.1 kg Intake: IV 1700 / 1700 1050 / 1050 1050 / 1050 Precedex Inj 200 MCG In NS Inj 50 / 50 50 / 50 50 / 50 48 ML @ 0.2 MCG/KG/HR 2.79 mls/ hr IV.CONT TITRATE PRN Rx#: [id number] NS Inj 1,000 ML @ 84 mls/hr IV. 1000 / 1000 1000 / 1000 1000 / 1000 CONT .[id number] ALEXIS Rx#:[id number] Cardene Inj 25 MG In NS Inj 240 250 / 250 ML @ 5 MG/HR 50 mls/hr IV.CONT TITRATE PRN Rx#:[id number] KCl 20 mEq Premix Inj 20 meq In 400 / 400 100 ml @ 50 mls/hr IV.SIG Q2H PRN Rx#:[id number] Oral 200 / 200 200 / 200 Output: Urine 500 / 500 Other: # Incontinent Voids 3 4 # Urine Diapers 1 Date of Last Bowel Movement 06/01/18 06/01/18 06/01/18 # Bowel Movements 1 0 1 Result Diagrams: 06/02/18 04:45 06/02/18 11:02 Objective Remarks: - Constitutional Lying in bed oriented to person only. Calm while on Precedex - HEENT Exam Normocephalic, atraumatic. ALEXYS - Neck Exam supple, full ROM, trachea midline - Respiratory Exam CTA bilaterally. No wheezes or crackles -Chest/breast exam: With CT report concerning for breast mass, I performed a breast exam with JESSICA Maldonado at the bedside on 05/31/18. Unable to palpate discrete mass as the patient has breast implants - Cardiovascular Exam Hypertension currently off Cardene infusion. S1-S2 normal no murmurs. No S3-S4 - Abdominal Exam Soft, normoactive bowel sounds - Extremities Exam Pulses intact, normal capillary refill - Neurological Exam , Somnolent on Precedex but wakes up easily oriented to person only, thinks she is at home. Moves all 4 extremities equally follows commands no focal deficits. Intermittently agitated and confused. No nystagmus. EOM + Assessment and Plan - Problem List (1) Intraventricular hemorrhage, nontraumatic Code(s): I61.5 - Nontraumatic intracerebral hemorrhage, intraventricular Status: Acute (2) Hypertensive emergency Code(s): I16.1 - Hypertensive emergency Status: Acute (3) Metabolic encephalopathy Code(s): G93.41 - Metabolic encephalopathy Status: Acute (4) Altered mental status Code(s): R41.82 - Altered mental status, unspecified Status: Acute (5) History of peripheral arterial disease Code(s): Z86.79 - Personal history of other diseases of the circulatory system Status: Chronic (6) History of hypertension Code(s): Z86.79 - Personal history of other diseases of the circulatory system Status: Chronic (7) Cessation of tobacco use in previous 12 months Code(s): Z87.891 - Personal history of nicotine dependence Status: Chronic - Assessment and Plan Plan: NEURO: 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 cannot rule out liver metastases -Tight blood pressure control with Cardene and IV labetalol as needed, and PO meds, see below -Keep systolic blood pressure less than 150 -Supplement multivitamin thiamine given daily alcohol use -Watch closely for alcohol withdrawal -Mild alcohol withdrawal contributing to agitation -Use Precedex for agitation, Haldol as needed -EEG negative for seizures no indication for seizure prophylaxis -Agitation has resolved 06/02 -Check INR, BMP, type and screen for OR RESP: Previous tobacco use -DuoNeb every 6 hours scheduled and as needed -Pulmonology consulted for right upper lobe mass concerning for primary malignancy, with adrenal mass -Pulmonary Dr. Naidu suggesting CT-guided biopsy and PET scan once clinically more stable and neuro surgery completed CV: Hypertensive emergency History of hypertension Peripheral arterial disease -Normal saline IV fluids 84 mL/h -Cardene infusion and, IV labetalol as needed for systolic blood pressure less than 150 -Continue home enalapril and amlodipine, continue statin. Metoprolol 50 mg twice daily -Continue holding Plavix pending craniotomy GI: -Diet, po famotidine : -Monitor renal function closely. 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 Kapadia ENDO: -Electrolyte replacement per protocol PROPH: -Bilateral lower extremity SCDs. Avoid chemical DVT prophylaxis until cleared by neurosurgery/famotidine LINES: -Utilize peripheral IVs, central line if needed Remains critically ill encephalopathic delirious likely from the hydrocephalus alcohol withdrawal contributing. She is at acute risk for neuro and respiratory decompensation. Continue close ICU monitoring plan for surgical intervention Monday. General behavior improved today.
[2018-06-03] MEDS: Dexmedetomidine Inj 200 MCG in Sodium Chlor 0.9% Inj 48 ML IV.CONT PRN ×3 (01:18→19:46)
[2018-06-03] MEDS: Chlorhexidine Gluconate 2% 1 Pack (2 Cloths) TOPICAL SCH (04:23)
[2018-06-03] MEDS: Sod Chloride 0.9% Inj 1,000 ML IV.CONT SCH ×2 (08:47→19:00)
[2018-06-03] MEDS: Metoprolol Tartrate 50 MG Tablet PO SCH ×2 (08:47→20:04)
[2018-06-03] MEDS: amLODIPine 5 MG Tablet PO SCH (08:47)
[2018-06-03] MEDS: Famotidine PF Inj 20 MG/2 ML Vial IV.PUSH SCH ×2 (08:48→20:04)
[2018-06-03] MEDS: Lisinopril 20 MG Tablet PO SCH (08:48)
[2018-06-03] MEDS: Senna/Docusate Sodium 8.6/50 MG Tablet PO SCH ×2 (08:48→20:05)
[2018-06-03] MEDS: Budesonide-Formoterol 160/4.5 MCG 6 GM Inhaler INH SCH ×2 (08:49→20:05)
--- NOTE | 2018-06-03 10:30 | P.PNNS ---
Subjective Interval history: No acute events overnight. Seems more confused this morning; had some extra difficulty with following commands and kept insisting that she is "not awake." Physical Exam Vital signs: Vital Signs 06/02/18 10:37 06/02/18 10:52 06/02/18 11:00 Temperature Pulse Rate 61 58 L 56 L Respiratory Rate 20 20 23 Blood Pressure 114/56 L 110/55 L Pulse Oximetry 94 L 96 97 06/02/18 11:07 06/02/18 11:22 06/02/18 11:37 Temperature Pulse Rate 57 L 57 L 56 L Respiratory Rate 21 22 23 Blood Pressure 91/46 L 123/57 L 112/55 L Pulse Oximetry 95 97 94 L 06/02/18 11:52 06/02/18 12:00 06/02/18 12:09 Temperature 98 F Pulse Rate 46 L 69 64 Respiratory Rate 20 20 19 Blood Pressure 96/46 L 127/61 Pulse Oximetry 98 98 97 06/02/18 12:22 06/02/18 12:37 06/02/18 12:52 Temperature Pulse Rate 58 L 73 53 L Respiratory Rate 24 18 16 Blood Pressure 126/59 L 138/64 127/57 L Pulse Oximetry 99 95 99 06/02/18 13:00 06/02/18 13:07 06/02/18 13:22 Temperature Pulse Rate 48 L 57 L 58 L Respiratory Rate 16 20 19 Blood Pressure 118/58 L 139/60 Pulse Oximetry 100 97 100 06/02/18 13:37 06/02/18 13:52 06/02/18 13:53 Temperature Pulse Rate 75 55 L Respiratory Rate 20 20 Blood Pressure 127/58 L 116/56 L Pulse Oximetry 96 100 98 06/02/18 14:00 06/02/18 14:07 06/02/18 14:32 Temperature Pulse Rate 48 L 63 Respiratory Rate 20 Blood Pressure 124/59 L 134/60 Pulse Oximetry 95 99 96 06/02/18 14:37 06/02/18 14:52 06/02/18 15:00 Temperature Pulse Rate 48 L 49 L 57 L Respiratory Rate 20 15 21 Blood Pressure 120/60 135/65 Pulse Oximetry 95 99 100 06/02/18 15:07 06/02/18 15:22 06/02/18 15:37 Temperature Pulse Rate 61 80 78 Respiratory Rate 23 20 23 Blood Pressure 153/66 H 145/65 H 139/64 Pulse Oximetry 99 93 L 98 06/02/18 15:52 06/02/18 15:55 06/02/18 16:00 Temperature Pulse Rate 84 94 H 87 Respiratory Rate 20 20 20 Blood Pressure 150/80 H 145/80 H 140/84 Pulse Oximetry 98 94 L 96 06/02/18 16:05 06/02/18 16:08 06/02/18 16:22 Temperature Pulse Rate 83 80 Respiratory Rate 20 20 Blood Pressure 135/60 143/81 H 148/81 H Pulse Oximetry 95 95 96 06/02/18 16:41 06/02/18 16:45 06/02/18 16:47 Temperature Pulse Rate 64 82 Respiratory Rate 12 19 Blood Pressure 150/80 H 151/82 H 148/74 H Pulse Oximetry 95 94 L 95 06/02/18 16:52 06/02/18 16:58 06/02/18 17:00 Temperature Pulse Rate 84 98 H 101 H Respiratory Rate 20 20 20 Blood Pressure 140/74 150/84 H 153/89 H Pulse Oximetry 92 L 94 L 92 L 06/02/18 17:05 06/02/18 17:07 06/02/18 17:11 Temperature Pulse Rate 106 H 106 H 101 H Respiratory Rate 20 20 20 Blood Pressure 160/87 H 156/79 H 157/80 H Pulse Oximetry 94 L 94 L 94 L 06/02/18 17:15 06/02/18 17:22 06/02/18 17:24 Temperature Pulse Rate 96 H 96 H 94 H Respiratory Rate 18 20 20 Blood Pressure 149/72 H 174/75 H 174/75 H Pulse Oximetry 95 93 L 93 L 06/02/18 17:37 06/02/18 17:52 06/02/18 18:00 Temperature Pulse Rate 72 89 92 H Respiratory Rate 23 22 20 Blood Pressure 119/56 L 152/78 H Pulse Oximetry 92 L 93 L 93 L 06/02/18 18:07 06/02/18 18:15 06/02/18 18:22 Temperature Pulse Rate 90 90 87 Respiratory Rate 20 20 20 Blood Pressure 155/68 H 158/70 H 151/64 H Pulse Oximetry 79 L 92 L 94 L 06/02/18 18:27 06/02/18 18:36 06/02/18 18:37 Temperature Pulse Rate 83 60 60 Respiratory Rate 20 19 18 Blood Pressure 129/60 113/56 L 107/53 L Pulse Oximetry 94 L 94 L 93 L 06/02/18 18:47 06/02/18 19:00 06/02/18 19:07 Temperature Pulse Rate 79 58 L 61 Respiratory Rate 20 14 22 Blood Pressure 120/56 L 100/54 L Pulse Oximetry 94 L 94 L 95 06/02/18 19:22 06/02/18 19:37 06/02/18 19:48 Temperature Pulse Rate 64 59 L Respiratory Rate 20 21 Blood Pressure 111/53 L 122/59 L Pulse Oximetry 96 96 94 L 06/02/18 19:52 06/02/18 20:00 06/02/18 20:07 Temperature 98.2 F Pulse Rate 68 68 Respiratory Rate 21 Blood Pressure 140/65 168/68 H Pulse Oximetry 96 96 98 06/02/18 20:22 06/02/18 20:37 06/02/18 20:52 Temperature Pulse Rate 92 H 60 Respiratory Rate 24 14 Blood Pressure 143/63 H 159/79 H 145/63 H Pulse Oximetry 96 95 97 06/02/18 21:00 06/02/18 21:07 06/02/18 21:13 Temperature Pulse Rate 83 70 Respiratory Rate 21 17 19 Blood Pressure 146/68 H Pulse Oximetry 95 96 06/02/18 21:22 06/02/18 21:37 06/02/18 21:57 Temperature Pulse Rate 85 83 78 Respiratory Rate 16 21 22 Blood Pressure 159/62 H 156/69 H 154/69 H Pulse Oximetry 96 96 95 06/02/18 22:00 06/02/18 22:07 06/02/18 22:22 Temperature Pulse Rate 79 56 L 66 Respiratory Rate 21 16 17 Blood Pressure 99/48 L 135/60 Pulse Oximetry 96 95 96 06/02/18 22:37 06/02/18 22:52 06/02/18 23:00 Temperature Pulse Rate 61 61 56 L Respiratory Rate 14 18 13 Blood Pressure 105/53 L 104/55 L Pulse Oximetry 95 97 95 06/02/18 23:07 06/02/18 23:22 06/03/18 00:00 Temperature 97.7 F Pulse Rate 53 L 65 73 Respiratory Rate 12 18 20 Blood Pressure 106/57 L 122/55 L Pulse Oximetry 95 95 92 L 06/03/18 00:08 06/03/18 00:17 06/03/18 00:18 Temperature Pulse Rate 77 75 77 Respiratory Rate 21 20 21 Blood Pressure 154/64 H 162/70 H 155/70 H Pulse Oximetry 93 L 91 L 92 L 06/03/18 00:30 06/03/18 01:00 06/03/18 01:04 Temperature Pulse Rate 63 79 60 Respiratory Rate 18 24 14 Blood Pressure 111/56 L 161/77 H 98/47 L Pulse Oximetry 94 L 86 L 92 L 06/03/18 02:00 06/03/18 02:14 06/03/18 03:00 Temperature Pulse Rate 53 L 55 L 52 L Respiratory Rate 14 16 22 Blood Pressure 90/45 L 91/50 L Pulse Oximetry 95 97 93 L 06/03/18 03:02 06/03/18 04:00 06/03/18 05:00 Temperature 97.5 F L Pulse Rate 51 L 52 L 50 L Respiratory Rate 21 13 13 Blood Pressure 90/46 L 102/51 L 108/54 L Pulse Oximetry 95 94 L 96 06/03/18 06:00 06/03/18 07:00 06/03/18 08:00 Temperature Pulse Rate 50 L 50 L 51 L Respiratory Rate 20 13 13 Blood Pressure 111/53 L 122/60 134/58 L Pulse Oximetry 95 98 96 06/03/18 09:00 Temperature Pulse Rate 97 H Respiratory Rate 29 H Blood Pressure 142/67 H Pulse Oximetry 95 Intake & Output 06/02/18 06/03/18 06/03/18 18:59 06:59 18:59 Intake Total 1250 / 1250 1050 / 1050 50 / 50 Output Total 50 / 50 Balance 1250 / 1250 1000 / 1000 50 / 50 Weight 58.3 kg Intake: IV 1050 / 1050 1050 / 1050 50 / 50 Precedex Inj 200 MCG In NS Inj 50 / 50 50 / 50 50 / 50 48 ML @ 0.2 MCG/KG/HR 2.79 mls/ hr IV.CONT TITRATE PRN Rx#: [id number] NS Inj 1,000 ML @ 84 mls/hr IV. 1000 / 1000 1000 / 1000 CONT .[id number] ALEXIS Rx#:[id number] Oral 200 / 200 Output: Urine Amount (Catheter) 50 / 50 Female External 50 / 50 Other: # Voids 2 # Incontinent Voids 4 Date of Last Bowel Movement 06/01/18 06/02/18 06/02/18 # Bowel Movements 1 - Routine Neurological Exam Awake, non-somnolent. Opens eyes to command and remains open. Pupils are equal. Face is symmetric. Would not answer orientation questions today. Says she feels "super great" but had great difficulty following commands consistently. Required multiple prompts to wiggle toes, and would squeeze but not release to command with the upper extremities. - Urinary Catheter Management Female External Cath placed during this visit: no Reason for continuing: Not indwelling catheter Assessment and Plan - Plan 78 yo female with vague constellation of symptoms GCS-[address] shows 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 hemorrhagic mass Will follow with you 05/30/18: cont neuro checks in ICU Dr. 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 at midnight on Monday night into Monday Minimize sedating meds, etc. 06/03/18: Appears to be a bit more encephalopathic today, possible contribution of hospital delirium versus her mild hydrocephalus, though favor delirium since her level of alertness remains stable Dr. 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 at midnight tonight Continue to minimize sedating meds, etc.
[2018-06-03 12:42] LABS: INR 1.1 Ratio; Prothrombin Time 10.7 sec (9.8-11.6)
--- NOTE | 2018-06-03 12:53 | P.PNPL ---
Subjective Interval history: Patient is lying in bed in NAD. On 2L oxygen. Physical Exam Vital signs: Vital Signs 06/02/18 12:52 06/02/18 13:00 06/02/18 13:07 Temperature Pulse Rate 53 L 48 L 57 L Respiratory Rate 16 16 20 Blood Pressure 127/57 L 118/58 L Pulse Oximetry 99 100 97 06/02/18 13:22 06/02/18 13:37 06/02/18 13:52 Temperature Pulse Rate 58 L 75 55 L Respiratory Rate 19 20 20 Blood Pressure 139/60 127/58 L 116/56 L Pulse Oximetry 100 96 100 06/02/18 13:53 06/02/18 14:00 06/02/18 14:07 Temperature Pulse Rate 48 L Respiratory Rate Blood Pressure 124/59 L Pulse Oximetry 98 95 99 06/02/18 14:32 06/02/18 14:37 06/02/18 14:52 Temperature Pulse Rate 63 48 L 49 L Respiratory Rate 20 20 15 Blood Pressure 134/60 120/60 135/65 Pulse Oximetry 96 95 99 06/02/18 15:00 06/02/18 15:07 06/02/18 15:22 Temperature Pulse Rate 57 L 61 80 Respiratory Rate 21 23 20 Blood Pressure 153/66 H 145/65 H Pulse Oximetry 100 99 93 L 06/02/18 15:37 06/02/18 15:52 06/02/18 15:55 Temperature Pulse Rate 78 84 94 H Respiratory Rate 23 20 20 Blood Pressure 139/64 150/80 H 145/80 H Pulse Oximetry 98 98 94 L 06/02/18 16:00 06/02/18 16:05 06/02/18 16:08 Temperature Pulse Rate 87 83 80 Respiratory Rate 20 20 20 Blood Pressure 140/84 135/60 143/81 H Pulse Oximetry 96 95 95 06/02/18 16:22 06/02/18 16:41 06/02/18 16:45 Temperature Pulse Rate 64 Respiratory Rate 12 Blood Pressure 148/81 H 150/80 H 151/82 H Pulse Oximetry 96 95 94 L 06/02/18 16:47 06/02/18 16:52 06/02/18 16:58 Temperature Pulse Rate 82 84 98 H Respiratory Rate 19 20 20 Blood Pressure 148/74 H 140/74 150/84 H Pulse Oximetry 95 92 L 94 L 06/02/18 17:00 06/02/18 17:05 06/02/18 17:07 Temperature Pulse Rate 101 H 106 H 106 H Respiratory Rate 20 20 20 Blood Pressure 153/89 H 160/87 H 156/79 H Pulse Oximetry 92 L 94 L 94 L 06/02/18 17:11 06/02/18 17:15 06/02/18 17:22 Temperature Pulse Rate 101 H 96 H 96 H Respiratory Rate 20 18 20 Blood Pressure 157/80 H 149/72 H 174/75 H Pulse Oximetry 94 L 95 93 L 06/02/18 17:24 06/02/18 17:37 06/02/18 17:52 Temperature Pulse Rate 94 H 72 89 Respiratory Rate 20 23 22 Blood Pressure 174/75 H 119/56 L 152/78 H Pulse Oximetry 93 L 92 L 93 L 06/02/18 18:00 06/02/18 18:07 06/02/18 18:15 Temperature Pulse Rate 92 H 90 90 Respiratory Rate 20 20 20 Blood Pressure 155/68 H 158/70 H Pulse Oximetry 93 L 79 L 92 L 06/02/18 18:22 06/02/18 18:27 06/02/18 18:36 Temperature Pulse Rate 87 83 60 Respiratory Rate 20 20 19 Blood Pressure 151/64 H 129/60 113/56 L Pulse Oximetry 94 L 94 L 94 L 06/02/18 18:37 06/02/18 18:47 06/02/18 19:00 Temperature Pulse Rate 60 79 58 L Respiratory Rate 18 20 14 Blood Pressure 107/53 L 120/56 L Pulse Oximetry 93 L 94 L 94 L 06/02/18 19:07 06/02/18 19:22 06/02/18 19:37 Temperature Pulse Rate 61 64 59 L Respiratory Rate 22 20 21 Blood Pressure 100/54 L 111/53 L 122/59 L Pulse Oximetry 95 96 96 06/02/18 19:48 06/02/18 19:52 06/02/18 20:00 Temperature 98.2 F Pulse Rate 68 68 Respiratory Rate 21 Blood Pressure 140/65 Pulse Oximetry 94 L 96 96 06/02/18 20:07 06/02/18 20:22 06/02/18 20:37 Temperature Pulse Rate 92 H Respiratory Rate 24 Blood Pressure 168/68 H 143/63 H 159/79 H Pulse Oximetry 98 96 95 06/02/18 20:52 06/02/18 21:00 06/02/18 21:07 Temperature Pulse Rate 60 83 70 Respiratory Rate 14 21 17 Blood Pressure 145/63 H 146/68 H Pulse Oximetry 97 95 96 06/02/18 21:13 06/02/18 21:22 06/02/18 21:37 Temperature Pulse Rate 85 83 Respiratory Rate 19 16 21 Blood Pressure 159/62 H 156/69 H Pulse Oximetry 96 96 06/02/18 21:57 06/02/18 22:00 06/02/18 22:07 Temperature Pulse Rate 78 79 56 L Respiratory Rate 22 21 16 Blood Pressure 154/69 H 99/48 L Pulse Oximetry 95 96 95 06/02/18 22:22 06/02/18 22:37 06/02/18 22:52 Temperature Pulse Rate 66 61 61 Respiratory Rate 17 14 18 Blood Pressure 135/60 105/53 L 104/55 L Pulse Oximetry 96 95 97 06/02/18 23:00 06/02/18 23:07 06/02/18 23:22 Temperature Pulse Rate 56 L 53 L 65 Respiratory Rate 13 12 18 Blood Pressure 106/57 L 122/55 L Pulse Oximetry 95 95 95 06/03/18 00:00 06/03/18 00:08 06/03/18 00:17 Temperature 97.7 F Pulse Rate 73 77 75 Respiratory Rate 20 21 20 Blood Pressure 154/64 H 162/70 H Pulse Oximetry 92 L 93 L 91 L 06/03/18 00:18 06/03/18 00:30 06/03/18 01:00 Temperature Pulse Rate 77 63 79 Respiratory Rate 21 18 24 Blood Pressure 155/70 H 111/56 L 161/77 H Pulse Oximetry 92 L 94 L 86 L 06/03/18 01:04 06/03/18 02:00 06/03/18 02:14 Temperature Pulse Rate 60 53 L 55 L Respiratory Rate 14 14 16 Blood Pressure 98/47 L 90/45 L 91/50 L Pulse Oximetry 92 L 95 97 06/03/18 03:00 06/03/18 03:02 06/03/18 04:00 Temperature 97.5 F L Pulse Rate 52 L 51 L 52 L Respiratory Rate 22 21 13 Blood Pressure 90/46 L 102/51 L Pulse Oximetry 93 L 95 94 L 06/03/18 05:00 06/03/18 06:00 06/03/18 07:00 Temperature Pulse Rate 50 L 50 L 50 L Respiratory Rate 13 20 13 Blood Pressure 108/54 L 111/53 L 122/60 Pulse Oximetry 96 95 98 06/03/18 08:00 06/03/18 09:00 06/03/18 10:00 Temperature Pulse Rate 51 L 97 H 77 Respiratory Rate 13 29 H 27 H Blood Pressure 134/58 L 142/67 H 127/59 L Pulse Oximetry 96 95 94 L Intake & Output 06/02/18 06/03/18 06/03/18 18:59 06:59 18:59 Intake Total 1250 / 1250 1050 / 1050 50 / 50 Output Total 50 / 50 Balance 1250 / 1250 1000 / 1000 50 / 50 Weight 58.3 kg Intake: IV 1050 / 1050 1050 / 1050 50 / 50 Precedex Inj 200 MCG In NS Inj 50 / 50 50 / 50 50 / 50 48 ML @ 0.2 MCG/KG/HR 2.79 mls/ hr IV.CONT TITRATE PRN Rx#: [id number] NS Inj 1,000 ML @ 84 mls/hr IV. 1000 / 1000 1000 / 1000 CONT .[id number] ALEXIS Rx#:[id number] Oral 200 / 200 Output: Urine Amount (Catheter) 50 / 50 Female External 50 / 50 Other: # Voids 2 # Incontinent Voids 4 Date of Last Bowel Movement 06/01/18 06/02/18 06/02/18 # Bowel Movements 1 - Constitutional no acute distress - Routine HEENT Exam Head: Present: normocephalic, atraumatic Eye: Present: EOMI, PERRL, normal accommodation, conjunctivae pink ENT: Present: mucous membranes moist - Routine Neck Exam Present: supple, full ROM, trachea midline - Routine Respiratory Exam Present: CTA bilaterally - Routine Cardiovascular Exam Present: RRR, S1, S2 - Routine Abdominal Exam Present: soft, normoactive bowel sounds - Routine Extremities Exam Present: full ROM, pulses intact - Routine Skin Exam Present: intact, dry - Routine Neurological Exam Present: alert - Urinary Catheter Management Female External Cath placed during this visit: no Reason for continuing: Not indwelling catheter Assessment and Plan - Assessment (1) Intraventricular hemorrhage, nontraumatic Code(s): I61.5 - Nontraumatic intracerebral hemorrhage, intraventricular Status: Acute (2) Hypertensive emergency Code(s): I16.1 - Hypertensive emergency Status: Acute (3) Metabolic encephalopathy Code(s): G93.41 - Metabolic encephalopathy Status: Acute (4) Altered mental status Code(s): R41.82 - Altered mental status, unspecified Status: Acute (5) History of peripheral arterial disease Code(s): Z86.79 - Personal history of other diseases of the circulatory system Status: Chronic (6) History of hypertension Code(s): Z86.79 - Personal history of other diseases of the circulatory system Status: Chronic (7) Cessation of tobacco use in previous 12 months Code(s): Z87.891 - Personal history of nicotine dependence Status: Chronic - Plan 1)Resp Insuff 2)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 3 mm subpleural nodules LLL 6)HTN Plan Continue with oxygen keep sats >92% Bronchodilators ( DuoNeb, Symbicort) For craniotomy, surgical resection of intraventricular mass tomorrow Will need lung biopsy when more stable to r/o bronchogenic ca CXR 06/01: No acute disease Continue treatment plan.
[2018-06-03 12:55] LABS: Anion Gap 7 meq/L (5-15); Blood Urea Nitrogen 17 mg/dL (7-18); Calcium 8.4 mg/dL (8.5-10.1); Carbon Dioxide 24.6 meq/L (21.0-32.0); Chloride 110 meq/L (98-107); Glomerular Filtration Rate Greater Than 89 mL/min (>89); Glucose,Random 113 mg/dL (74-106); Sodium 142 meq/L (136-145)
--- NOTE | 2018-06-03 14:05 | P.PNCC ---
Subjective Subjective Remarks/Hospital Course: Patient is a 78-year-old female with past medical history significant for hypertension, peripheral arterial disease, history of vascular intervention/ stenting, arthritis who presented to the [facility] with mostly nonspecific complaints of memory loss and hallucinations for 1 week and worsening tremors of the right arm. Further workup in the emergency department showed subacute intraventricular hemorrhage into the left lateral ventricle and a focal thrombus that may be obstructing foramina of [place]. There was enlargement of the left lateral ventricle compared to the prior MRI. Also trace blood in the occipital horn of left lateral ventricle. With evidence of intraventricular hemorrhage patient was transferred emergently to [facility] for neurosurgery consult. I evaluated the patient after arrival to the ICU. Patient is profoundly hypertensive systolic blood pressure 190-200. IV labetalol 20 mg IV push given followed by Cardene infusion started. On exam patient did not appear to be in distress. No definite focal deficit however patient is oriented only to person. Reviewed CT scan with neurosurgery Dr. Palacios. On his review CT shows 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 hemorrhagic mass at foramen of Bell with asymmetric left sided ventricular dilatation. Stat MRI of the brain with and without contrast ordered. Started on Cardene infusion with target systolic blood pressure less than 140 SUBJ 05/30/18: MRI brain showed 2.3 x 1.7 cm mass within the body of the left lateral ventricle measuring 2.3 x 1.7 cm left lateral ventricle is prominent may be related to production of CSF from this mass. 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 Additional mass in the cerebellopontine angle on the left compressing upon the brainstem measuring 1.8 x 1.4 cm. Slightly more agitated and confused today. Partly secondary to mass partly could be alcohol withdrawal. Placed on as needed Haldol 05/31: Patient remains sedated received Ativan a few hours before. Currently for that reason Precedex is being held. Wakes up follows some commands. Oriented to person only. Plan for craniotomy and resection of intraventricular mass scheduled tentatively for Monday. Ct chest: 1.6 x 1.1 cm spiculated RUL nodule concerning for metastasis or primary lung malignancy. 1.1 x 1.4 cm soft tissue density inferior lateral margin of the right breast implant ?focal disruption vs breast mass. CT abdomen pelvis: 1.3 cm left adrenal mass concerning for metastatic disease given findings of brain and lung mass. 1.6 cm indeterminate low-density lesion in the posterior right lobe of the liver with numerous additional subcentimeter hypodense lesions which are too small to fully characterize. Metastatic disease cannot be entirely excluded, possibly cysts. 06/01: Remains confused slightly agitated remains on Precedex. CT angiogram yesterday of the brain showed previously demonstrated intraventricular mass however no cerebellopontine angle mass. WBC count elevated to 19.1 no fever. Will check UA-previously ordered UA had not been done. Check blood cultures, chest x-ray is clear. Continue to hold Plavix 06/02: Plan is for resection of brain mass on Monday. Patient continues breathing comfortably. 06/03: Ready for OR. Labs are in order. INR 1.1. Plavix effect noted on . Objective Vital Signs / I&O: Vital Signs 06/02/18 14:00 06/02/18 14:07 06/02/18 14:32 Temperature Pulse Rate 48 L 63 Respiratory Rate 20 Blood Pressure 124/59 L 134/60 Pulse Oximetry 95 99 96 06/02/18 14:37 06/02/18 14:52 06/02/18 15:00 Temperature Pulse Rate 48 L 49 L 57 L Respiratory Rate 20 15 21 Blood Pressure 120/60 135/65 Pulse Oximetry 95 99 100 06/02/18 15:07 06/02/18 15:22 06/02/18 15:37 Temperature Pulse Rate 61 80 78 Respiratory Rate 23 20 23 Blood Pressure 153/66 H 145/65 H 139/64 Pulse Oximetry 99 93 L 98 06/02/18 15:52 06/02/18 15:55 06/02/18 16:00 Temperature Pulse Rate 84 94 H 87 Respiratory Rate 20 20 20 Blood Pressure 150/80 H 145/80 H 140/84 Pulse Oximetry 98 94 L 96 06/02/18 16:05 06/02/18 16:08 06/02/18 16:22 Temperature Pulse Rate 83 80 Respiratory Rate 20 20 Blood Pressure 135/60 143/81 H 148/81 H Pulse Oximetry 95 95 96 06/02/18 16:41 06/02/18 16:45 06/02/18 16:47 Temperature Pulse Rate 64 82 Respiratory Rate 12 19 Blood Pressure 150/80 H 151/82 H 148/74 H Pulse Oximetry 95 94 L 95 06/02/18 16:52 06/02/18 16:58 06/02/18 17:00 Temperature Pulse Rate 84 98 H 101 H Respiratory Rate 20 20 20 Blood Pressure 140/74 150/84 H 153/89 H Pulse Oximetry 92 L 94 L 92 L 06/02/18 17:05 06/02/18 17:07 06/02/18 17:11 Temperature Pulse Rate 106 H 106 H 101 H Respiratory Rate 20 20 20 Blood Pressure 160/87 H 156/79 H 157/80 H Pulse Oximetry 94 L 94 L 94 L 06/02/18 17:15 06/02/18 17:22 06/02/18 17:24 Temperature Pulse Rate 96 H 96 H 94 H Respiratory Rate 18 20 20 Blood Pressure 149/72 H 174/75 H 174/75 H Pulse Oximetry 95 93 L 93 L 06/02/18 17:37 06/02/18 17:52 06/02/18 18:00 Temperature Pulse Rate 72 89 92 H Respiratory Rate 23 22 20 Blood Pressure 119/56 L 152/78 H Pulse Oximetry 92 L 93 L 93 L 06/02/18 18:07 06/02/18 18:15 06/02/18 18:22 Temperature Pulse Rate 90 90 87 Respiratory Rate 20 20 20 Blood Pressure 155/68 H 158/70 H 151/64 H Pulse Oximetry 79 L 92 L 94 L 06/02/18 18:27 06/02/18 18:36 06/02/18 18:37 Temperature Pulse Rate 83 60 60 Respiratory Rate 20 19 18 Blood Pressure 129/60 113/56 L 107/53 L Pulse Oximetry 94 L 94 L 93 L 06/02/18 18:47 06/02/18 19:00 06/02/18 19:07 Temperature Pulse Rate 79 58 L 61 Respiratory Rate 20 14 22 Blood Pressure 120/56 L 100/54 L Pulse Oximetry 94 L 94 L 95 06/02/18 19:22 06/02/18 19:37 06/02/18 19:48 Temperature Pulse Rate 64 59 L Respiratory Rate 20 21 Blood Pressure 111/53 L 122/59 L Pulse Oximetry 96 96 94 L 06/02/18 19:52 06/02/18 20:00 06/02/18 20:07 Temperature 98.2 F Pulse Rate 68 68 Respiratory Rate 21 Blood Pressure 140/65 168/68 H Pulse Oximetry 96 96 98 06/02/18 20:22 06/02/18 20:37 06/02/18 20:52 Temperature Pulse Rate 92 H 60 Respiratory Rate 24 14 Blood Pressure 143/63 H 159/79 H 145/63 H Pulse Oximetry 96 95 97 06/02/18 21:00 06/02/18 21:07 06/02/18 21:13 Temperature Pulse Rate 83 70 Respiratory Rate 21 17 19 Blood Pressure 146/68 H Pulse Oximetry 95 96 06/02/18 21:22 06/02/18 21:37 06/02/18 21:57 Temperature Pulse Rate 85 83 78 Respiratory Rate 16 21 22 Blood Pressure 159/62 H 156/69 H 154/69 H Pulse Oximetry 96 96 95 06/02/18 22:00 06/02/18 22:07 06/02/18 22:22 Temperature Pulse Rate 79 56 L 66 Respiratory Rate 21 16 17 Blood Pressure 99/48 L 135/60 Pulse Oximetry 96 95 96 06/02/18 22:37 06/02/18 22:52 06/02/18 23:00 Temperature Pulse Rate 61 61 56 L Respiratory Rate 14 18 13 Blood Pressure 105/53 L 104/55 L Pulse Oximetry 95 97 95 06/02/18 23:07 06/02/18 23:22 06/03/18 00:00 Temperature 97.7 F Pulse Rate 53 L 65 73 Respiratory Rate 12 18 20 Blood Pressure 106/57 L 122/55 L Pulse Oximetry 95 95 92 L 06/03/18 00:08 06/03/18 00:17 06/03/18 00:18 Temperature Pulse Rate 77 75 77 Respiratory Rate 21 20 21 Blood Pressure 154/64 H 162/70 H 155/70 H Pulse Oximetry 93 L 91 L 92 L 06/03/18 00:30 06/03/18 01:00 06/03/18 01:04 Temperature Pulse Rate 63 79 60 Respiratory Rate 18 24 14 Blood Pressure 111/56 L 161/77 H 98/47 L Pulse Oximetry 94 L 86 L 92 L 06/03/18 02:00 06/03/18 02:14 06/03/18 03:00 Temperature Pulse Rate 53 L 55 L 52 L Respiratory Rate 14 16 22 Blood Pressure 90/45 L 91/50 L Pulse Oximetry 95 97 93 L 06/03/18 03:02 06/03/18 04:00 06/03/18 05:00 Temperature 97.5 F L Pulse Rate 51 L 52 L 50 L Respiratory Rate 21 13 13 Blood Pressure 90/46 L 102/51 L 108/54 L Pulse Oximetry 95 94 L 96 06/03/18 06:00 06/03/18 07:00 06/03/18 08:00 Temperature Pulse Rate 50 L 50 L 51 L Respiratory Rate 20 13 13 Blood Pressure 111/53 L 122/60 134/58 L Pulse Oximetry 95 98 96 06/03/18 09:00 06/03/18 10:00 Temperature Pulse Rate 97 H 77 Respiratory Rate 29 H 27 H Blood Pressure 142/67 H 127/59 L Pulse Oximetry 95 94 L Intake & Output 06/02/18 06/03/18 06/03/18 18:59 06:59 18:59 Intake Total 1250 / 1250 1050 / 1050 50 / 50 Output Total 50 / 50 Balance 1250 / 1250 1000 / 1000 50 / 50 Weight 58.3 kg Intake: IV 1050 / 1050 1050 / 1050 50 / 50 Precedex Inj 200 MCG In NS Inj 50 / 50 50 / 50 50 / 50 48 ML @ 0.2 MCG/KG/HR 2.79 mls/ hr IV.CONT TITRATE PRN Rx#: [id number] NS Inj 1,000 ML @ 84 mls/hr IV. 1000 / 1000 1000 / 1000 CONT .[id number] ALEXIS Rx#:[id number] Oral 200 / 200 Output: Urine Amount (Catheter) 50 / 50 Female External 50 / 50 Other: # Voids 2 # Incontinent Voids 4 Date of Last Bowel Movement 06/01/18 06/02/18 06/02/18 # Bowel Movements 1 Result Diagrams: 06/02/18 04:45 06/03/18 12:14 Objective Remarks: - Constitutional Lying in bed oriented to person only. Calm. - HEENT Exam Normocephalic, atraumatic. ALEXYS - Neck Exam supple, full ROM, trachea midline - Respiratory Exam Clear breath sounds bilaterally. No wheezes or crackles -Chest/breast exam: With CT report concerning for breast mass, I performed a breast exam with JESSICA Maldonado at the bedside on 05/31/18. Unable to palpate discrete mass as the patient has breast implants - Cardiovascular Exam S1-S2 normal no murmurs. No S3-S4 - Abdominal Exam Soft, normoactive bowel sounds. No guarding. - Extremities Exam Pulses intact, normal capillary refill - Neurological Exam Moves all 4 extremities equally, follows commands, no focal deficits. Intermittently confused. No nystagmus. EOM + Assessment and Plan - Problem List (1) Intraventricular hemorrhage, nontraumatic Code(s): I61.5 - Nontraumatic intracerebral hemorrhage, intraventricular Status: Acute (2) Hypertensive emergency Code(s): I16.1 - Hypertensive emergency Status: Acute (3) Metabolic encephalopathy Code(s): G93.41 - Metabolic encephalopathy Status: Acute (4) Altered mental status Code(s): R41.82 - Altered mental status, unspecified Status: Acute (5) History of peripheral arterial disease Code(s): Z86.79 - Personal history of other diseases of the circulatory system Status: Chronic (6) History of hypertension Code(s): Z86.79 - Personal history of other diseases of the circulatory system Status: Chronic (7) Cessation of tobacco use in previous 12 months Code(s): Z87.891 - Personal history of nicotine dependence Status: Chronic - Assessment and Plan Plan: NEURO: 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 cannot rule out liver metastases -Tight blood pressure control with Cardene and IV labetalol as needed, and PO meds, see below -Keep systolic blood pressure less than 150 -Supplement multivitamin thiamine given daily alcohol use -Watch closely for alcohol withdrawal -Mild alcohol withdrawal contributing to agitation -Use Precedex for agitation, Haldol as needed -EEG negative for seizures no indication for seizure prophylaxis -Agitation has resolved 06/02 -Check INR, BMP, type and screen for OR -N.p.o. after midnight RESP: Previous tobacco use -DuoNeb every 6 hours scheduled and as needed -Pulmonology consulted for right upper lobe mass concerning for primary malignancy, with adrenal mass -Pulmonary Dr. Naidu suggesting CT-guided biopsy and PET scan once clinically more stable and neuro surgery completed CV: Hypertensive emergency History of hypertension Peripheral arterial disease -Normal saline IV fluids 84 mL/h -Cardene infusion and, IV labetalol as needed for systolic blood pressure less than 150 -Continue home enalapril and amlodipine, continue statin. Metoprolol 50 mg twice daily -Continue holding Plavix pending craniotomy -Decrease platelet activity noted on 06/01 GI: -Diet, oral famotidine : -Monitor renal function closely. ID: -No indication for antibiotics at this time HEME: -Monitor CBC, coags -Oncology. 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 Kapadia ENDO: -Electrolyte replacement per protocol PROPH: -Bilateral lower extremity SCDs. Avoid chemical DVT prophylaxis until postop LINES: -Utilize peripheral IVs, central line if needed Remains critically ill encephalopathic delirious likely from the hydrocephalus alcohol withdrawal contributing. She is at acute risk for neuro and respiratory decompensation. Continue close ICU monitoring plan for surgical intervention Monday. General behavior improved today but still confused.
[2018-06-03] MEDS: Labetalol HCl Inj 100 MG/20 ML Vial IV.PUSH PRN ×2 (16:11→23:27)
[2018-06-04] MEDS ORDERED: ceFAZolin Inj 1 GM in Sodium Chlor 0.9% Inj 100 ML IV.SIG SCH (00:01)
[2018-06-04] MEDS: Sod Chloride 0.9% Inj 1,000 ML IV.CONT SCH ×2 (04:17→13:01)
[2018-06-04] MEDS: Lisinopril 20 MG Tablet PO SCH (08:46)
[2018-06-04] MEDS: amLODIPine 5 MG Tablet PO SCH (08:46)
[2018-06-04] MEDS: Metoprolol Tartrate 50 MG Tablet PO SCH ×2 (08:46→23:28)
[2018-06-04] MEDS: Famotidine PF Inj 20 MG/2 ML Vial IV.PUSH SCH ×2 (08:46→20:04)
[2018-06-04] MEDS: Senna/Docusate Sodium 8.6/50 MG Tablet PO SCH ×2 (08:47→20:05)
[2018-06-04] MEDS: Dexmedetomidine Inj 200 MCG in Sodium Chlor 0.9% Inj 48 ML IV.CONT PRN ×3 (08:47→23:27)
[2018-06-04] MEDS: Budesonide-Formoterol 160/4.5 MCG 6 GM Inhaler INH SCH ×2 (08:47→20:05)
--- NOTE | 2018-06-04 08:54 | P.PNNEU ---
Subjective Active Medications: Active Medications Acetaminophen (Tylenol) 650 mg PO Q6H PRN PRN Reason: PAIN 1-10 AND/OR FEVER >101F Al Hydroxide/Mg Hydroxide (Milk Of Heidi Treviño) 30 ml PO Q12H PRN PRN Reason: Mild Constipation Albuterol (Duoneb Neb (Prn)) 1 ampul NEB Q2HR NEB PRN PRN Reason: WHEEZING Albuterol (Duoneb Neb (Prn)) 1 ampul NEB Q6HR NEB PRN PRN Reason: WHEEZING Amlodipine Besylate (Norvasc) 5 mg PO DAILY [facility] Last Admin: 06/04/18 08:46 Dose: 5 mg Bisacodyl (Dulcolax Supp) 10 mg RECTAL DAILY PRN PRN Reason: SEVERE CONSITIPATION Budesonide/Formoterol Fumarate (Symbicort 160/4.5 Mcg Inh) 1 puff INH BID [facility] Last Admin: 06/04/18 08:47 Dose: 1 puff Enalaprilat (Vasotec Inj) 2.5 mg IV.PUSH Q6H PRN PRN Reason: Sbp>140, Dbp>90 Last Admin: 06/03/18 22:04 Dose: 2.5 mg Famotidine (Pepcid Pf Inj) 20 mg IV.PUSH Q12HR [facility] Last Admin: 06/04/18 08:46 Dose: 20 mg Haloperidol Lactate (Haldol Inj) 2 mg IV.PUSH Q4H PRN PRN Reason: AGITATION Last Admin: 06/02/18 17:04 Dose: 2 mg Sodium Chloride (Ns Inj) 1,000 mls @ 84 mls/hr IV.CONT .[id number] [facility] Last Admin: 06/04/18 04:17 Dose: 84 mls/hr Nicardipine HCl 25 mg/ Sodium (Chloride) 250 mls @ 50 mls/hr IV.CONT TITRATE PRN; Protocol PRN Reason: Per Protocol Last Titration: 06/02/18 19:36 Dose: 0 mg/hr, 0 mls/hr Magnesium Sulfate 4 gm/ Sodium (Chloride) 100 mls @ 50 mls/hr IV.SIG UNSCH PRN PRN Reason: For Magnesium 0.9 - 1.1 mg/dL Magnesium Sulfate 2 gm/ Sodium (Chloride) 100 mls @ 50 mls/hr IV.SIG UNSCH PRN PRN Reason: For Magnesium 1.2 - 1.6 mg/dL Potassium Chloride (Kcl 40 Meq Premix Inj) 40 meq in 100 mls @ 25 mls/hr IV.SIG Q2H PRN PRN Reason: For Potassium 2.8 - 3.2 mEq/L Potassium Chloride (Kcl 20 Meq Premix Inj) 20 meq in 100 mls @ 50 mls/hr IV.SIG Q2H PRN PRN Reason: For Potassium 3.3 - 3.5 mEq/L Potassium Chloride (Kcl 40 Meq Premix Inj) 40 meq in 100 mls @ 25 mls/hr IV.SIG UNSCH PRN PRN Reason: For Potassium 3.3 - 3.5 mEq/L Potassium Chloride (Kcl 20 Meq Premix Inj) 20 meq in 100 mls @ 50 mls/hr IV.SIG Q2H PRN PRN Reason: For Potassium 2.8 - 3.2 mEq/L Last Infusion: 06/01/18 18:47 Dose: Infused Potassium Phosphate 30 mmol/ (Sodium Chloride) 260 mls @ 42 mls/hr IV.SIG UNSCH PRN PRN Reason: SEE LABEL COMMENTS Sodium Phosphate 30 mmol/ (Sodium Chloride) 260 mls @ 42 mls/hr IV.SIG UNSCH PRN PRN Reason: For Phosphorus < 2.5 mg/dL Dexmedetomidine HCl 200 mcg/ (Sodium Chloride) 50 mls @ 2.79 mls/hr IV.CONT TITRATE PRN; Protocol PRN Reason: Per Protocol Last Admin: 06/04/18 08:47 Dose: 0.3 mcg/kg/hr, 4.19 mls/hr Cefazolin Sodium 1 gm/ Sodium (Chloride) 100 mls @ 200 mls/hr IV.SIG PER DIEM PHYSICAL THERAPIST [facility] Stop: 06/05/18 13:29 Labetalol HCl (Trandate Inj) 10 mg IV.PUSH Q4H PRN PRN Reason: Sbp>140, Dbp>90 Last Admin: 06/03/18 23:27 Dose: 10 mg Lactulose (Lactulose Liq) 30 ml PO DAILY PRN PRN Reason: SEVERE CONSITIPATION Lisinopril (Prinivil) 40 mg PO DAILY [facility] Last Admin: 06/04/18 08:46 Dose: 40 mg Magnesium Oxide (Mag-Ox) 800 mg PO UNSCH PRN PRN Reason: For Magnesium 1.2 - 1.6 mg/dL Metoprolol Tartrate (Lopressor) 50 mg PO BID [facility] Last Admin: 06/04/18 08:46 Dose: 50 mg Morphine Sulfate (Morphine Inj) 2 mg IV.PUSH Q30M PRN PRN Reason: SEVERE ANXIETY OR AGITATION Last Admin: 06/02/18 21:11 Dose: 2 mg Potassium Chloride (Kcl Liq) 40 meq PO UNSCH PRN PRN Reason: Potassium level 3.3-3.5 mEq/L Last Admin: 06/02/18 06:38 Dose: 40 meq Potassium Chloride (Kcl Liq) 40 meq PO UNSCH PRN PRN Reason: Potassium level 3.3-3.5 mEq/L Potassium Phosphate (K-Phos Original) 2,000 mg PO Q4H PRN PRN Reason: Phosphorus Less Than 2.5 mg/dL Potassium Phosphate (K-Phos Original) 2,000 mg PO UNSCH PRN PRN Reason: SEE LABEL COMMENTS Pravastatin Sodium (Pravachol) 40 mg PO DAILY [facility] Last Admin: 06/04/18 08:46 Dose: 40 mg Senna/Docusate Sodium (Kate-Colace) 1 tab PO BID [facility] Last Admin: 06/04/18 08:47 Dose: Not Given Sennosides (Senokot) 17.2 mg PO Q12H PRN PRN Reason: Moderate Constipation Sodium Chloride (Ns Flush) 2 ml IV.FLUSH PRN PRN PRN Reason: FLUSH AFTER USING IV ACCESS Sodium Chloride (Ns Flush) 2 ml IV.FLUSH BID [facility] Last Admin: 06/04/18 08:46 Dose: 2 ml Allergies/Adverse Reactions: Allergies Allergy/AdvReac Type Severity Reaction Status Date / Time No Known Allergies Allergy Verified 05/29/18 15:32 Physical Exam Vital signs: Vital Signs 06/03/18 09:00 06/03/18 10:00 06/03/18 11:00 Temperature Pulse Rate 97 H 77 82 Respiratory Rate 29 H 27 H 23 Blood Pressure 142/67 H 127/59 L 146/64 H Pulse Oximetry 95 94 L 94 L 06/03/18 12:00 06/03/18 13:00 06/03/18 14:00 Temperature Pulse Rate 83 57 L 69 Respiratory Rate 24 16 16 Blood Pressure 149/65 H 102/51 L 136/63 Pulse Oximetry 94 L 95 95 06/03/18 15:00 06/03/18 16:00 06/03/18 17:00 Temperature Pulse Rate 91 H 96 H 75 Respiratory Rate 19 23 24 Blood Pressure 186/80 H 172/73 H 124/58 L Pulse Oximetry 95 93 L 94 L 06/03/18 18:00 06/03/18 19:00 06/03/18 20:00 Temperature 99.5 F Pulse Rate 63 92 H 97 H Respiratory Rate 15 24 26 H Blood Pressure 124/60 199/78 H 170/74 H Pulse Oximetry 96 98 95 06/03/18 20:10 06/03/18 21:00 06/03/18 22:00 Temperature Pulse Rate 65 87 Respiratory Rate 18 24 Blood Pressure 111/55 L 177/71 H Pulse Oximetry 94 L 96 95 06/03/18 23:00 06/04/18 00:00 06/04/18 01:00 Temperature 99.1 F Pulse Rate 89 70 76 Respiratory Rate 23 16 16 Blood Pressure 188/76 H 102/52 L 126/59 L Pulse Oximetry 96 96 98 06/04/18 02:00 06/04/18 03:00 06/04/18 04:00 Temperature 99.2 F Pulse Rate 61 75 89 Respiratory Rate 16 20 23 Blood Pressure 101/51 L 144/65 H 167/72 H Pulse Oximetry 98 100 95 06/04/18 05:00 06/04/18 06:00 06/04/18 07:00 Temperature Pulse Rate 80 58 L 57 L Respiratory Rate 23 16 20 Blood Pressure 147/66 H 91/45 L 112/53 L Pulse Oximetry 96 95 97 06/04/18 07:34 06/04/18 08:00 Temperature 97.5 F L Pulse Rate 57 L Respiratory Rate 20 Blood Pressure Pulse Oximetry 99 95 Intake & Output 06/03/18 06/04/18 06/04/18 18:59 06:59 18:59 Intake Total 460 / 460 2059 50 / 50 Output Total 150 / 150 500 / 500 Balance 310 / 310 1560 / 1560 50 / 50 Weight 56.5 kg Intake: IV 100 / 100 1999 / 1999 50 / 50 Precedex Inj 200 MCG In NS Inj 100 / 100 50 / 50 48 ML @ 0.2 MCG/KG/HR 2.79 mls/ hr IV.CONT TITRATE PRN Rx#: [id number] NS Inj 1,000 ML @ 84 mls/hr IV. 1999 CONT .[id number] [facility] Rx#:[id number] Oral 360 / 360 60 / 60 Output: Urine Amount (Catheter) 150 / 150 500 / 500 Female External 150 / 150 500 / 500 Other: # Incontinent Voids 3 Date of Last Bowel Movement 06/02/18 06/02/18 06/02/18 Narrative: awake confused talks some not following commands for me or in am nusu on case [id number] low on monday - Urinary Catheter Management Female External Cath placed during this visit: no Reason for continuing: Not indwelling catheter Objective Laboratory Results - last 24 hr 05/30/18 06/03/18 06/03/18 19:34 12:14 12:14 PT 10.7 INR 1.1 Sodium 142 Potassium 4.0 Chloride 110 H Carbon Dioxide 24.6 Anion Gap 7 BUN 17 Creatinine 0.49 L Estimated GFR Greater than 89 Random Glucose 113 H Calcium 8.4 L Thiamine 355 H Blood Type Blood Type Recheck Antibody Screen 06/03/18 12:14 PT INR Sodium Potassium Chloride Carbon Dioxide Anion Gap BUN Creatinine Estimated GFR Random Glucose Calcium Thiamine Blood Type O Negative Blood Type Recheck Required Antibody Screen Negative Microbiology 06/01/18 10:21 Aerobic Blood Culture - Preliminary Blood - Peripheral No growth in 2 days Anaerobic Blood Culture - Preliminary No growth in 2 days 06/01/18 10:16 Aerobic Blood Culture - Preliminary Blood - Peripheral No growth in 2 days Anaerobic Blood Culture - Preliminary No growth in 2 days Review/Management - Review/Management Plan: imp improved MS mary on case i libertad langston the medulla abn and he is aware fu eeg -- 06/01/18 eeg neg stable neuro vent size looks stable on cta check platelet plavix fxt for or monday
[2018-06-04 10:57] LABS: Anion Gap 10 meq/L (5-15); Blood Urea Nitrogen 12 mg/dL (7-18); Calcium 7.8 mg/dL (8.5-10.1); Carbon Dioxide 23.9 meq/L (21.0-32.0); Chloride 108 meq/L (98-107); Glomerular Filtration Rate Greater Than 89 mL/min (>89); Glucose,Random 100 mg/dL (74-106); Potassium 3.4 meq/L (3.5-5.1); Sodium 142 meq/L (136-145)
[2018-06-04 11:10] LABS: Baso # (Auto) 0.1 th/mm3 (0.0-0.2); Baso % (Auto) 0.7 % (0.0-2.0); Eos # (Auto) 0.1 th/mm3 (0.0-0.4); Eos % (Auto) 1.7 % (0.0-4.0); Hematocrit 36.2 % (35.0-46.0); Hemoglobin 11.9 gm/dL (11.6-15.3); Lymph # (Auto) 1.2 th/mm3 (1.0-4.8); Lymph % (Auto) 13.9 % (9.0-44.0); Mean Corpuscular HGB Conc 32.9 % (32.0-36.0); Mean Corpuscular Hemoglobin 33.9 pg (27.0-34.0); Mean Corpuscular Volume 102.9 fL (80.0-100.0); Mean Platelet Volume 8.6 fL (7.0-11.0); Mono # (Auto) 0.8 th/mm3 (0.0-0.9); Neut # (Auto) 6.4 th/mm3 (1.8-7.7); Neut % (Auto) 74.7 % (16.0-70.0); Red Blood Count 3.52 mil/mm3 (4.00-5.30); Red Cell Distribution Width 14.2 % (11.6-17.2); White Blood Count 8.5 th/mm3 (4.0-11.0)
[2018-06-04 11:39] LABS: Platelet Count 180 th/mm3 (150-450)
--- NOTE | 2018-06-04 12:01 | P.PNNS ---
Subjective Interval history: 06/04/18: patient sedated on Precedex, awakens but drowsy. nursing reports no acute neuro changes overnight. <Samanta Banda - Last Filed: 06/04/18 14:04> Physical Exam Vital signs: Vital Signs 06/03/18 12:00 06/03/18 13:00 06/03/18 14:00 Temperature Pulse Rate 83 57 L 69 Respiratory Rate 24 16 16 Blood Pressure 149/65 H 102/51 L 136/63 Pulse Oximetry 94 L 95 95 06/03/18 15:00 06/03/18 16:00 06/03/18 17:00 Temperature Pulse Rate 91 H 96 H 75 Respiratory Rate 19 23 24 Blood Pressure 186/80 H 172/73 H 124/58 L Pulse Oximetry 95 93 L 94 L 06/03/18 18:00 06/03/18 19:00 06/03/18 20:00 Temperature 99.5 F Pulse Rate 63 92 H 97 H Respiratory Rate 15 24 26 H Blood Pressure 124/60 199/78 H 170/74 H Pulse Oximetry 96 98 95 06/03/18 20:10 06/03/18 21:00 06/03/18 22:00 Temperature Pulse Rate 65 87 Respiratory Rate 18 24 Blood Pressure 111/55 L 177/71 H Pulse Oximetry 94 L 96 95 06/03/18 23:00 06/04/18 00:00 06/04/18 01:00 Temperature 99.1 F Pulse Rate 89 70 76 Respiratory Rate 23 16 16 Blood Pressure 188/76 H 102/52 L 126/59 L Pulse Oximetry 96 96 98 06/04/18 02:00 06/04/18 03:00 06/04/18 04:00 Temperature 99.2 F Pulse Rate 61 75 89 Respiratory Rate 16 20 23 Blood Pressure 101/51 L 144/65 H 167/72 H Pulse Oximetry 98 100 95 06/04/18 05:00 06/04/18 06:00 06/04/18 07:00 Temperature Pulse Rate 80 58 L 57 L Respiratory Rate 23 16 20 Blood Pressure 147/66 H 91/45 L 112/53 L Pulse Oximetry 96 95 97 06/04/18 07:34 06/04/18 08:00 06/04/18 09:00 Temperature 97.5 F L Pulse Rate 75 66 Respiratory Rate 20 15 Blood Pressure 121/56 L Pulse Oximetry 99 95 98 06/04/18 10:00 Temperature Pulse Rate 59 L Respiratory Rate 19 Blood Pressure 109/53 L Pulse Oximetry 98 Intake & Output 06/03/18 06/04/18 06/04/18 18:59 06:59 18:59 Intake Total 460 / 460 2060 / 2060 50 / 50 Output Total 150 / 150 500 / 500 Balance 310 / 310 1560 / 1560 50 / 50 Weight 56.5 kg Intake: IV 100 / 100 1999 50 / 50 Precedex Inj 200 MCG In NS Inj 100 / 100 50 / 50 48 ML @ 0.2 MCG/KG/HR 2.79 mls/ hr IV.CONT TITRATE PRN Rx#: [id number] NS Inj 1,000 ML @ 84 mls/hr IV. 1999 CONT .[id number] [facility] Rx#:[id number] Oral 360 / 360 60 / 60 Output: Urine Amount (Catheter) 150 / 150 500 / 500 Female External 150 / 150 500 / 500 Other: # Incontinent Voids 3 Date of Last Bowel Movement 06/02/18 06/02/18 06/02/18 Narrative: sedated on Precedex opens eyes, not following much commands - Urinary Catheter Management Female External Cath placed during this visit: no Reason for continuing: Not indwelling catheter <Samanta Banda - Last Filed: 06/04/18 14:04> Vital signs: Vital Signs 06/03/18 15:00 06/03/18 16:00 06/03/18 17:00 Temperature Pulse Rate 91 H 96 H 75 Respiratory Rate 19 23 24 Blood Pressure 186/80 H 172/73 H 124/58 L Pulse Oximetry 95 93 L 94 L 06/03/18 18:00 06/03/18 19:00 06/03/18 20:00 Temperature 99.5 F Pulse Rate 63 92 H 97 H Respiratory Rate 15 24 26 H Blood Pressure 124/60 199/78 H 170/74 H Pulse Oximetry 96 98 95 06/03/18 20:10 06/03/18 21:00 06/03/18 22:00 Temperature Pulse Rate 65 87 Respiratory Rate 18 24 Blood Pressure 111/55 L 177/71 H Pulse Oximetry 94 L 96 95 06/03/18 23:00 06/04/18 00:00 06/04/18 01:00 Temperature 99.1 F Pulse Rate 89 70 76 Respiratory Rate 23 16 16 Blood Pressure 188/76 H 102/52 L 126/59 L Pulse Oximetry 96 96 98 06/04/18 02:00 06/04/18 03:00 06/04/18 04:00 Temperature 99.2 F Pulse Rate 61 75 89 Respiratory Rate 16 20 23 Blood Pressure 101/51 L 144/65 H 167/72 H Pulse Oximetry 98 100 95 06/04/18 05:00 06/04/18 06:00 06/04/18 07:00 Temperature Pulse Rate 80 58 L 57 L Respiratory Rate 23 16 20 Blood Pressure 147/66 H 91/45 L 112/53 L Pulse Oximetry 96 95 97 06/04/18 07:34 06/04/18 08:00 06/04/18 09:00 Temperature 97.5 F L Pulse Rate 75 66 Respiratory Rate 20 15 Blood Pressure 121/56 L Pulse Oximetry 99 95 98 06/04/18 10:00 06/04/18 11:00 06/04/18 12:00 Temperature Pulse Rate 59 L 62 63 Respiratory Rate 19 24 20 Blood Pressure 109/53 L 114/55 L 127/59 L Pulse Oximetry 98 99 99 06/04/18 13:00 06/04/18 14:00 Temperature Pulse Rate 57 L 49 L Respiratory Rate 20 22 Blood Pressure 117/58 L 121/57 L Pulse Oximetry 98 98 Intake & Output 06/03/18 06/04/18 06/04/18 18:59 06:59 18:59 Intake Total 460 / 460 0 / 2060 50 / 50 Output Total 150 / 150 500 / 500 Balance 310 / 310 1560 / 1560 50 / 50 Weight 56.5 kg Intake: IV 100 / 100 1999 50 / 50 Precedex Inj 200 MCG In NS Inj 100 / 100 50 / 50 48 ML @ 0.2 MCG/KG/HR 2.79 mls/ hr IV.CONT TITRATE PRN Rx#: [id number] NS Inj 1,000 ML @ 84 mls/hr IV. 1999 CONT .[id number] [facility] Rx#:[id number] Oral 360 / 360 60 / 60 Output: Urine Amount (Catheter) 150 / 150 500 / 500 Female External 150 / 150 500 / 500 Other: # Incontinent Voids 3 Date of Last Bowel Movement 06/02/18 06/02/18 06/02/18 - Urinary Catheter Management Female External Cath placed during this visit: no <Duke Palacios - Last Filed: 06/04/18 14:40> Assessment and Plan - Plan 78 yo female with vague constellation of symptoms GCS-[address] shows 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 hemorrhagic mass Will follow with you 05/30/18: cont neuro checks in ICU Dr. 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 at midnight on Monday night into Monday Minimize sedating meds, etc. 06/03/18: Appears to be a bit more encephalopathic today, possible contribution of hospital delirium versus her mild hydrocephalus, though favor delirium since her level of alertness remains stable Dr. 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 at midnight tonight Continue to minimize sedating meds, etc. 06/04/18: surgery rescheduled for tomorrow morning patient may resume diet today, NPO at MN tonight cont hold Plavix <Samanta Banda - Last Filed: 06/04/18 14:04> - Attending Attestation Remains Neurologically stable, I have personally seen and examined the patient, reviewed pertinent labs and imaging studies as well with Ms. Banda (Neurosurgery P[employer]ICS PLATER), I agree with her asessment and plan of care. <Duke Palacios - Last Filed: 06/04/18 14:40>
--- NOTE | 2018-06-04 12:16 | ECG ---
Date Performed: 06/04/2018 Time Performed: 03:51:10 PTAGE: 78 years EKG: Normal Sinus rhythm . Baseline artifact Poor R wave progression, cannot exclude old ASMI vs. lead placement Abnormal ECG NO PREVIOUS TRACING DOCTOR: Immanuel Martinez Interpretating Date/Time 06/04/2018 12:16:08
--- NOTE | 2018-06-04 12:31 | P.PN ---
Subjective Interval history: She is awake and responds to command. We will go for craniotomy tomorrow. No respiratory distress but on oxygen at 2 L. Urine output remains good and hemodynamics are stable Physical Exam Vital signs: Vital Signs 06/03/18 13:00 06/03/18 14:00 06/03/18 15:00 Temperature Pulse Rate 57 L 69 91 H Respiratory Rate 16 16 19 Blood Pressure 102/51 L 136/63 186/80 H Pulse Oximetry 95 95 95 06/03/18 16:00 06/03/18 17:00 06/03/18 18:00 Temperature Pulse Rate 96 H 75 63 Respiratory Rate 23 24 15 Blood Pressure 172/73 H 124/58 L 124/60 Pulse Oximetry 93 L 94 L 96 06/03/18 19:00 06/03/18 20:00 06/03/18 20:10 Temperature 99.5 F Pulse Rate 92 H 97 H Respiratory Rate 24 26 H Blood Pressure 199/78 H 170/74 H Pulse Oximetry 98 95 94 L 06/03/18 21:00 06/03/18 22:00 06/03/18 23:00 Temperature Pulse Rate 65 87 89 Respiratory Rate 18 24 23 Blood Pressure 111/55 L 177/71 H 188/76 H Pulse Oximetry 96 95 96 06/04/18 00:00 06/04/18 01:00 06/04/18 02:00 Temperature 99.1 F Pulse Rate 70 76 61 Respiratory Rate 16 16 16 Blood Pressure 102/52 L 126/59 L 101/51 L Pulse Oximetry 96 98 98 06/04/18 03:00 06/04/18 04:00 06/04/18 05:00 Temperature 99.2 F Pulse Rate 75 89 80 Respiratory Rate 20 23 23 Blood Pressure 144/65 H 167/72 H 147/66 H Pulse Oximetry 100 95 96 06/04/18 06:00 06/04/18 07:00 06/04/18 07:34 Temperature Pulse Rate 58 L 57 L Respiratory Rate 16 20 Blood Pressure 91/45 L 112/53 L Pulse Oximetry 95 97 99 06/04/18 08:00 06/04/18 09:00 06/04/18 10:00 Temperature 97.5 F L Pulse Rate 75 66 59 L Respiratory Rate 20 15 19 Blood Pressure 121/56 L 109/53 L Pulse Oximetry 95 98 98 06/04/18 11:00 06/04/18 12:00 Temperature Pulse Rate 62 61 Respiratory Rate 24 Blood Pressure 114/55 L Pulse Oximetry 99 Intake & Output 06/03/18 06/04/18 06/04/18 18:59 06:59 18:59 Intake Total 460 / 460 2060 / 2060 50 / 50 Output Total 150 / 150 500 / 500 Balance 310 / 310 1560 / 1560 50 / 50 Weight 56.5 kg Intake: IV 100 / 100 1999 50 / 50 Precedex Inj 200 MCG In NS Inj 100 / 100 50 / 50 48 ML @ 0.2 MCG/KG/HR 2.79 mls/ hr IV.CONT TITRATE PRN Rx#: [id number] NS Inj 1,000 ML @ 84 mls/hr IV. 1999 CONT .[id number] [facility] Rx#:[id number] Oral 360 / 360 60 / 60 Output: Urine Amount (Catheter) 150 / 150 500 / 500 Female External 150 / 150 500 / 500 Other: # Incontinent Voids 3 Date of Last Bowel Movement 06/02/18 06/02/18 06/02/18 Narrative: GENERAL: Averagely built elderly white female alert but confused SKIN: Warm and dry. HEAD: Atraumatic. Normocephalic. EYES: Pupils equal and round. No scleral icterus. No injection or drainage. ENT: No nasal bleeding or discharge. Mucous membranes pink and moist. NECK: Trachea midline. No JVD. CARDIOVASCULAR: Regular rate and rhythm. RESPIRATORY: No accessory muscle use. Occasional scattered wheezes breath sounds equal bilaterally. GASTROINTESTINAL: Abdomen soft, non-tender, nondistended. Hepatic and splenic margins not palpable. MUSCULOSKELETAL: Extremities without clubbing, cyanosis, or edema. No obvious deformities. NEUROLOGICAL: Awake and alert. No obvious cranial nerve deficits. Motor grossly within normal limits. Normal speech. PSYCHIATRIC: Cannot assess - Urinary Catheter Management Female External Cath placed during this visit: no Reason for continuing: Not indwelling catheter Results - Labs CBC & Chem 7: 06/04/18 09:36 06/04/18 09:36 Laboratory Results - last 24 hr 06/03/18 06/03/18 06/03/18 12:14 12:14 12:14 WBC RBC Hgb Hct MCV MCH MCHC RDW Plt Count MPV Neut % (Auto) Lymph % (Auto) [place] % (Auto) Eos % (Auto) Baso % (Auto) Neut # (Auto) Lymph # (Auto) [place] # (Auto) Eos # (Auto) Baso # (Auto) WBC Differential Differential Comment PT 10.7 INR 1.1 Sodium 142 Potassium 4.0 Chloride 110 H Carbon Dioxide 24.6 Anion Gap 7 BUN 17 Creatinine 0.49 L Estimated GFR Greater than 89 Random Glucose 113 H Calcium 8.4 L Blood Type O Negative Blood Type Recheck Required Antibody Screen Negative 06/04/18 06/04/18 09:36 09:36 WBC 8.5 RBC 3.52 L Hgb 11.9 Hct 36.2 MCV 102.9 H MCH 33.9 MCHC 32.9 RDW 14.2 Plt Count 180 MPV 8.6 Neut % (Auto) 74.7 H Lymph % (Auto) 13.9 [place] % (Auto) 9.0 H Eos % (Auto) 1.7 Baso % (Auto) 0.7 Neut # (Auto) 6.4 Lymph # (Auto) 1.2 [place] # (Auto) 0.8 Eos # (Auto) 0.1 Baso # (Auto) 0.1 WBC Differential . Differential Comment Auto diff final PT INR Sodium 142 Potassium 3.4 L Chloride 108 H Carbon Dioxide 23.9 Anion Gap 10 BUN 12 Creatinine 0.30 L Estimated GFR Greater than 89 Random Glucose 100 Calcium 7.8 L Blood Type Blood Type Recheck Antibody Screen Microbiology 06/01/18 10:21 Blood - Peripheral Aerobic Blood Culture - Preliminary No growth in 3 days 06/01/18 10:21 Blood - Peripheral Anaerobic Blood Culture - Preliminary No growth in 3 days 06/01/18 10:16 Blood - Peripheral Aerobic Blood Culture - Preliminary No growth in 3 days 06/01/18 10:16 Blood - Peripheral Anaerobic Blood Culture - Preliminary No growth in 3 days Assessment and Plan - Assessment (1) COPD (chronic obstructive pulmonary disease) Code(s): J44.9 - Chronic obstructive pulmonary disease, unspecified Status: Acute (2) Right upper lobe pulmonary nodule Code(s): R91.1 - Solitary pulmonary nodule Status: Acute (3) Intraventricular hemorrhage, nontraumatic Code(s): I61.5 - Nontraumatic intracerebral hemorrhage, intraventricular Status: Acute (4) Hypertensive emergency Code(s): I16.1 - Hypertensive emergency Status: Acute (5) Metabolic encephalopathy Code(s): G93.41 - Metabolic encephalopathy Status: Acute (6) Altered mental status Code(s): R41.82 - Altered mental status, unspecified Status: Acute (7) History of peripheral arterial disease Code(s): Z86.79 - Personal history of other diseases of the circulatory system Status: Chronic (8) History of hypertension Code(s): Z86.79 - Personal history of other diseases of the circulatory system Status: Chronic (9) Cessation of tobacco use in previous 12 months Code(s): Z87.891 - Personal history of nicotine dependence Status: Chronic - Plan 1 O2 nasal cannula 2 L. 2. Continue DuoNeb nebs 4 times daily. 3. Okay for neurosurgery in a.m. 4. Workup for lung mass when clinically stable 5. CBC BMP in a.m. 6 Symbicort 160 about 4.5 mcg 1 puff twice daily
--- NOTE | 2018-06-04 14:37 | P.PNCC ---
Subjective Subjective Remarks/Hospital Course: Patient is a 78-year-old female with past medical history significant for hypertension, peripheral arterial disease, history of vascular intervention/ stenting, arthritis who presented to the [facility] with mostly nonspecific complaints of memory loss and hallucinations for 1 week and worsening tremors of the right arm. Further workup in the emergency department showed subacute intraventricular hemorrhage into the left lateral ventricle and a focal thrombus that may be obstructing foramina of [place]. There was enlargement of the left lateral ventricle compared to the prior MRI. Also trace blood in the occipital horn of left lateral ventricle. With evidence of intraventricular hemorrhage patient was transferred emergently to [facility] for neurosurgery consult. I evaluated the patient after arrival to the ICU. Patient is profoundly hypertensive systolic blood pressure 190-200. IV labetalol 20 mg IV push given followed by Cardene infusion started. On exam patient did not appear to be in distress. No definite focal deficit however patient is oriented only to person. Reviewed CT scan with neurosurgery Dr. Palacios. On his review CT shows 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 hemorrhagic mass at foramen of Bell with asymmetric left sided ventricular dilatation. Stat MRI of the brain with and without contrast ordered. Started on Cardene infusion with target systolic blood pressure less than 140 SUBJ 05/30/18: MRI brain showed 2.3 x 1.7 cm mass within the body of the left lateral ventricle measuring 2.3 x 1.7 cm left lateral ventricle is prominent may be related to production of CSF from this mass. 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 Additional mass in the cerebellopontine angle on the left compressing upon the brainstem measuring 1.8 x 1.4 cm. Slightly more agitated and confused today. Partly secondary to mass partly could be alcohol withdrawal. Placed on as needed Haldol 05/31: Patient remains sedated received Ativan a few hours before. Currently for that reason Precedex is being held. Wakes up follows some commands. Oriented to person only. Plan for craniotomy and resection of intraventricular mass scheduled tentatively for Monday. Ct chest: 1.6 x 1.1 cm spiculated RUL nodule concerning for metastasis or primary lung malignancy. 1.1 x 1.4 cm soft tissue density inferior lateral margin of the right breast implant ?focal disruption vs breast mass. CT abdomen pelvis: 1.3 cm left adrenal mass concerning for metastatic disease given findings of brain and lung mass. 1.6 cm indeterminate low-density lesion in the posterior right lobe of the liver with numerous additional subcentimeter hypodense lesions which are too small to fully characterize. Metastatic disease cannot be entirely excluded, possibly cysts. 06/01: Remains confused slightly agitated remains on Precedex. CT angiogram yesterday of the brain showed previously demonstrated intraventricular mass however no cerebellopontine angle mass. WBC count elevated to 19.1 no fever. Will check UA-previously ordered UA had not been done. Check blood cultures, chest x-ray is clear. Continue to hold Plavix 06/02: Plan is for resection of brain mass on Monday. Patient continues breathing comfortably. 06/03: Ready for OR. Labs are in order. INR 1.1. Plavix effect noted on . 06/04: Coagulation profile normal. Patient scheduled for surgery tomorrow. No new complaints. Objective Vital Signs / I&O: Vital Signs 06/03/18 15:00 06/03/18 16:00 06/03/18 17:00 Temperature Pulse Rate 91 H 96 H 75 Respiratory Rate 19 23 24 Blood Pressure 186/80 H 172/73 H 124/58 L Pulse Oximetry 95 93 L 94 L 06/03/18 18:00 06/03/18 19:00 06/03/18 20:00 Temperature 99.5 F Pulse Rate 63 92 H 97 H Respiratory Rate 15 24 26 H Blood Pressure 124/60 199/78 H 170/74 H Pulse Oximetry 96 98 95 06/03/18 20:10 06/03/18 21:00 06/03/18 22:00 Temperature Pulse Rate 65 87 Respiratory Rate 18 24 Blood Pressure 111/55 L 177/71 H Pulse Oximetry 94 L 96 95 06/03/18 23:00 06/04/18 00:00 06/04/18 01:00 Temperature 99.1 F Pulse Rate 89 70 76 Respiratory Rate 23 16 16 Blood Pressure 188/76 H 102/52 L 126/59 L Pulse Oximetry 96 96 98 06/04/18 02:00 06/04/18 03:00 06/04/18 04:00 Temperature 99.2 F Pulse Rate 61 75 89 Respiratory Rate 16 20 23 Blood Pressure 101/51 L 144/65 H 167/72 H Pulse Oximetry 98 100 95 06/04/18 05:00 06/04/18 06:00 06/04/18 07:00 Temperature Pulse Rate 80 58 L 57 L Respiratory Rate 23 16 20 Blood Pressure 147/66 H 91/45 L 112/53 L Pulse Oximetry 96 95 97 06/04/18 07:34 06/04/18 08:00 06/04/18 09:00 Temperature 97.5 F L Pulse Rate 75 66 Respiratory Rate 20 15 Blood Pressure 121/56 L Pulse Oximetry 99 95 98 06/04/18 10:00 06/04/18 11:00 06/04/18 12:00 Temperature Pulse Rate 59 L 62 63 Respiratory Rate 19 24 20 Blood Pressure 109/53 L 114/55 L 127/59 L Pulse Oximetry 98 99 99 06/04/18 13:00 06/04/18 14:00 Temperature Pulse Rate 57 L 49 L Respiratory Rate 20 22 Blood Pressure 117/58 L 121/57 L Pulse Oximetry 98 98 Intake & Output 06/03/18 06/04/18 06/04/18 18:59 06:59 18:59 Intake Total 460 / 460 2059 / 2059 50 / 50 Output Total 150 / 150 500 / 500 Balance 310 / 310 1560 / 1560 50 / 50 Weight 56.5 kg Intake: IV 100 / 100 1999 50 / 50 Precedex Inj 200 MCG In NS Inj 100 / 100 50 / 50 48 ML @ 0.2 MCG/KG/HR 2.79 mls/ hr IV.CONT TITRATE PRN Rx#: [id number] NS Inj 1,000 ML @ 84 mls/hr IV. 1999 CONT .[id number] [facility] Rx#:[id number] Oral 360 / 360 60 / 60 Output: Urine Amount (Catheter) 150 / 150 500 / 500 Female External 150 / 150 500 / 500 Other: # Incontinent Voids 3 Date of Last Bowel Movement 06/02/18 06/02/18 06/02/18 Result Diagrams: 06/04/18 09:36 06/04/18 09:36 Objective Remarks: - Constitutional Lying in bed oriented to person only. Calm. - HEENT Exam Normocephalic, atraumatic. ALEXYS - Neck Exam supple, full ROM, trachea midline - Respiratory Exam Clear breath sounds bilaterally. No wheezes or crackles -Chest/breast exam: With CT report concerning for breast mass, I performed a breast exam with JESSICA Maldonado at the bedside on 05/31/18. Unable to palpate discrete mass as the patient has breast implants - Cardiovascular Exam S1-S2 normal no murmurs. No S3-S4 - Abdominal Exam Soft, normoactive bowel sounds. No guarding. - Extremities Exam Pulses intact, normal capillary refill - Neurological Exam Moves all 4 extremities equally, follows commands, no focal deficits. Intermittently confused. No nystagmus. EOM + Assessment and Plan - Problem List (1) Intraventricular hemorrhage, nontraumatic Code(s): I61.5 - Nontraumatic intracerebral hemorrhage, intraventricular Status: Acute (2) Hypertensive emergency Code(s): I16.1 - Hypertensive emergency Status: Acute (3) Metabolic encephalopathy Code(s): G93.41 - Metabolic encephalopathy Status: Acute (4) Altered mental status Code(s): R41.82 - Altered mental status, unspecified Status: Acute (5) History of peripheral arterial disease Code(s): Z86.79 - Personal history of other diseases of the circulatory system Status: Chronic (6) History of hypertension Code(s): Z86.79 - Personal history of other diseases of the circulatory system Status: Chronic (7) Cessation of tobacco use in previous 12 months Code(s): Z87.891 - Personal history of nicotine dependence Status: Chronic - Assessment and Plan Plan: NEURO: 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 cannot rule out liver metastases -Tight blood pressure control with Cardene and IV labetalol as needed, and PO meds, see below -Keep systolic blood pressure less than 150 -Supplement multivitamin thiamine given daily alcohol use -Watch closely for alcohol withdrawal -Mild alcohol withdrawal contributing to agitation -Use Precedex for agitation, Haldol as needed -EEG negative for seizures no indication for seizure prophylaxis -Agitation has resolved 06/02 -Check INR, BMP, type and screen for OR -N.p.o. after midnight Monday RESP: Previous tobacco use -DuoNeb every 6 hours scheduled and as needed -Pulmonology consulted for right upper lobe mass concerning for primary malignancy, with adrenal mass -Pulmonary Dr. Naidu suggesting CT-guided biopsy and PET scan once clinically more stable and neuro surgery completed CV: Hypertensive emergency History of hypertension Peripheral arterial disease -Normal saline IV fluids 84 mL/h -Cardene infusion and, IV labetalol as needed for systolic blood pressure less than 150 -Continue home enalapril and amlodipine, continue statin. Metoprolol 50 mg twice daily -Continue holding Plavix pending craniotomy -Decrease platelet activity noted on 06/01 -INR, PT, PTT normal GI: -Diet, oral famotidine : -Monitor renal function closely. ID: -No indication for antibiotics at this time HEME: -Monitor CBC, coags -Oncology. 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 Kapadia ENDO: -Electrolyte replacement per protocol PROPH: -Bilateral lower extremity SCDs. Avoid chemical DVT prophylaxis until after surgery. LINES: -Utilize peripheral IVs, central line if needed Overall impression: Remains encephalopathic, likely from the hydrocephalus and/ or alcohol withdrawal.
--- NOTE | 2018-06-04 16:09 | P.PNONC ---
Subjective Interval history: Patient sleeping on approach, awakens easily to voice. She reports feeling sleepy, she is on a Precedex drip. She is in soft medical restraints. Her tray is in front of her, I have asked if she wants to eat lunch and she states no. Her son enters during my evaluation. It is my understanding her surgery is scheduled for tomorrow. Objective Vital Signs/Intake & Output: Vital Signs 06/03/18 17:00 06/03/18 18:00 06/03/18 19:00 Temperature Pulse Rate 75 63 92 H Respiratory Rate 24 15 24 Blood Pressure 124/58 L 124/60 199/78 H Pulse Oximetry 94 L 96 98 06/03/18 20:00 06/03/18 20:10 06/03/18 21:00 Temperature 99.5 F Pulse Rate 97 H 65 Respiratory Rate 26 H 18 Blood Pressure 170/74 H 111/55 L Pulse Oximetry 95 94 L 96 06/03/18 22:00 06/03/18 23:00 06/04/18 00:00 Temperature 99.1 F Pulse Rate 87 89 70 Respiratory Rate 24 23 16 Blood Pressure 177/71 H 188/76 H 102/52 L Pulse Oximetry 95 96 96 06/04/18 01:00 06/04/18 02:00 06/04/18 03:00 Temperature Pulse Rate 76 61 75 Respiratory Rate 16 16 20 Blood Pressure 126/59 L 101/51 L 144/65 H Pulse Oximetry 98 98 100 06/04/18 04:00 06/04/18 05:00 06/04/18 06:00 Temperature 99.2 F Pulse Rate 89 80 58 L Respiratory Rate 23 23 16 Blood Pressure 167/72 H 147/66 H 91/45 L Pulse Oximetry 95 96 95 06/04/18 07:00 06/04/18 07:34 06/04/18 08:00 Temperature 97.5 F L Pulse Rate 57 L 75 Respiratory Rate 20 20 Blood Pressure 112/53 L Pulse Oximetry 97 99 95 06/04/18 09:00 06/04/18 10:00 06/04/18 11:00 Temperature Pulse Rate 66 59 L 62 Respiratory Rate 15 19 24 Blood Pressure 121/56 L 109/53 L 114/55 L Pulse Oximetry 98 98 99 06/04/18 12:00 06/04/18 13:00 06/04/18 14:00 Temperature Pulse Rate 63 57 L 49 L Respiratory Rate 20 20 22 Blood Pressure 127/59 L 117/58 L 121/57 L Pulse Oximetry 99 98 98 Intake & Output 06/03/18 06/04/18 06/04/18 18:59 06:59 18:59 Intake Total 460 / 460 2059 / 2059 50 / 50 Output Total 150 / 150 500 / 500 Balance 310 / 310 1560 / 1560 50 / 50 Weight 56.5 kg Intake: IV 100 / 100 1999 50 / 50 Precedex Inj 200 MCG In NS Inj 100 / 100 50 / 50 48 ML @ 0.2 MCG/KG/HR 2.79 mls/ hr IV.CONT TITRATE PRN Rx#: [id number] NS Inj 1,000 ML @ 84 mls/hr IV. 1999 CONT .[id number] [facility] Rx#:[id number] Oral 360 / 360 60 / 60 Output: Urine Amount (Catheter) 150 / 150 500 / 500 Female External 150 / 150 500 / 500 Other: # Incontinent Voids 3 Date of Last Bowel Movement 06/02/18 06/02/18 06/02/18 Result Diagrams: 06/04/18 09:36 06/04/18 09:36 Laboratory Results: Laboratory Results - last 24 hr 06/04/18 06/04/18 06/04/18 09:36 09:36 13:34 WBC 8.5 RBC 3.52 L Hgb 11.9 Hct 36.2 MCV 102.9 H MCH 33.9 MCHC 32.9 RDW 14.2 Plt Count 180 MPV 8.6 Neut % (Auto) 74.7 H Lymph % (Auto) 13.9 [place] % (Auto) 9.0 H Eos % (Auto) 1.7 Baso % (Auto) 0.7 Neut # (Auto) 6.4 Lymph # (Auto) 1.2 [place] # (Auto) 0.8 Eos # (Auto) 0.1 Baso # (Auto) 0.1 WBC Differential . Differential Comment Auto diff final APTT 29.3 Sodium 142 Potassium 3.4 L Chloride 108 H Carbon Dioxide 23.9 Anion Gap 10 BUN 12 Creatinine 0.30 L Estimated GFR Greater than 89 Random Glucose 100 Calcium 7.8 L Culture Results: Microbiology 06/01/18 10:21 Aerobic Blood Culture - Preliminary Blood - Peripheral No growth in 3 days Anaerobic Blood Culture - Preliminary No growth in 3 days 06/01/18 10:16 Aerobic Blood Culture - Preliminary Blood - Peripheral No growth in 3 days Anaerobic Blood Culture - Preliminary No growth in 3 days Medications: Active Medications Generic Name Dose Route Start Last Admin Trade Name Freq PRN Reason Stop Dose Admin Amlodipine Besylate 5 mg 05/29/18 17:30 06/04/18 08:46 Norvasc PO 5 mg DAILY ALEXIS Administration Budesonide/Formoterol Fumarate 1 puff 06/01/18 21:00 06/04/18 08:47 Symbicort 160/4.5 Mcg Inh INH 1 puff BID ALEXIS Administration Enalaprilat 2.5 mg 06/01/18 02:01 06/03/18 22:04 Vasotec Inj IV.PUSH 2.5 mg Q6H PRN Administration Sbp>140, Dbp>90 Famotidine 20 mg 05/29/18 21:00 06/04/18 08:46 Pepcid Pf Inj IV.PUSH 20 mg Q12HR ALEXIS Administration Haloperidol Lactate 2 mg 05/30/18 13:17 06/02/18 17:04 Haldol Inj IV.PUSH 2 mg Q4H PRN Administration AGITATION Sodium Chloride 1,000 mls @ 84 mls/hr 05/29/18 16:00 06/04/18 04:17 Ns Inj IV.CONT 84 mls/hr .[id number] ALEXIS Administration Nicardipine HCl 25 mg/ Sodium 250 mls @ 50 mls/hr 05/29/18 15:38 06/02/18 19: 36 Chloride IV.CONT 0 mg/hr TITRATE PRN 0 mls/hr Per Protocol Titration Protocol 5 MG/HR Potassium Chloride 20 meq in 100 mls @ 50 mls/hr 05/29/18 16:53 06/01/18 18: 47 Kcl 20 Meq Premix Inj IV.SIG Infused Q2H PRN Infusion For Potassium 2.8 - 3.2 mEq/L Dexmedetomidine HCl 200 mcg/ 50 mls @ 2.79 mls/hr 05/30/18 18:22 06/04/18 08: 55 Sodium Chloride IV.CONT 0.4 mcg/kg/hr TITRATE PRN 5.59 mls/hr Per Protocol Titration Protocol 0.2 MCG/KG/HR Labetalol HCl 10 mg 06/01/18 01:59 06/03/18 23:27 Trandate Inj IV.PUSH 10 mg Q4H PRN Administration Sbp>140, Dbp>90 Lisinopril 40 mg 05/29/18 17:30 06/04/18 08:46 Prinivil PO 40 mg DAILY ALEXIS Administration Metoprolol Tartrate 50 mg 05/30/18 14:15 06/04/18 08:46 Lopressor PO 50 mg BID ALEXIS Administration Morphine Sulfate 2 mg 06/01/18 18:00 06/02/18 21:11 Morphine Inj IV.PUSH 2 mg Q30M PRN Administration SEVERE ANXIETY OR AGITATION Potassium Chloride 40 meq 05/29/18 16:53 06/02/18 06:38 Kcl Liq PO 40 meq UNSCH PRN Administration Potassium level 3.3-3.5 mEq/L Pravastatin Sodium 40 mg 05/30/18 09:00 06/04/18 08:46 Pravachol PO 40 mg DAILY ALEXIS Administration Senna/Docusate Sodium 1 tab 05/29/18 21:00 06/04/18 08:47 Kate-Colace PO Not Given BID ALEXIS Sodium Chloride 2 ml 05/29/18 21:00 06/04/18 08:46 Ns Flush IV.FLUSH 2 ml BID ALEXIS Administration Objective Remarks: GENERAL: Elderly disheveled woman, in no acute distress. SKIN: Warm and dry. HEAD: Normocephalic. EYES: No scleral icterus. No injection or drainage. NECK: Supple, trachea midline. CARDIOVASCULAR: Regular rate and rhythm without murmurs. RESPIRATORY: Breath sounds equal bilaterally. No accessory muscle use. GASTROINTESTINAL: Abdomen soft, non-tender, nondistended. EXTREMITIES: No cyanosis, or edema. MUSCULOSKELETAL: Adequate muscle tone. NEUROLOGICAL: Sleeping, awakens easily to voice. Assessment/Plan - Plan 78-year-old woman transferred for acute mental status change, ventricle enlargement pending neurosurgery intervention in hopes of alleviating the mental status change. Additional imaging shows disease in the lung suspected malignancy. 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 Plan: 1. Neurosurgery pending for tomorrow. 2. Await pathology. 3. Critical care management per labor commissioner.
[2018-06-05] MEDS ORDERED: ceFAZolin Inj 1 GM in Sodium Chlor 0.9% Inj 100 ML IV.SIG SCH (00:01)
[2018-06-05] MEDS: Sod Chloride 0.9% Inj 1,000 ML IV.CONT SCH ×2 (03:13→16:32)
[2018-06-05] MEDS: Labetalol HCl Inj 100 MG/20 ML Vial IV.PUSH PRN (03:14)
[2018-06-05] MEDS ORDERED: Gelatin Size 100 Topical Foam ONE (07:06)
[2018-06-05] MEDS ORDERED: Thrombin Topical Soln 5,000 UNIT Vial TOPICAL ONE (07:06)
[2018-06-05] MEDS ORDERED: Bupivacaine/Epinephrine PF Inj 0.5% 30 ML Vial ONE (07:06)
[2018-06-05] MEDS ORDERED: ceFAZolin 1 GM Premix Inj 1 GM/50 ML PIGGYBACK IV.SIG ONE (07:26)
[2018-06-05] MEDS ORDERED: Glycopyrrolate Inj 1 MG/5 ML Syringe IV.PUSH ONE (07:30)
[2018-06-05] MEDS ORDERED: Labetalol HCl Inj 100 MG/20 ML Vial IV.CONT ONE (07:30)
[2018-06-05] MEDS ORDERED: Sodium Chlor 0.9% Inj 250 ML IV.CONT ONE (07:30)
[2018-06-05] MEDS ORDERED: Normosol-R pH 7.4 Inj 1,000 ML IV.CONT ONE (07:30)
[2018-06-05] MEDS ORDERED: Sod Chloride 0.9% Inj 1,000 ML IV.CONT ONE (07:30)
[2018-06-05] MEDS ORDERED: Phenylephrine/NS 1000 MCG/10ML Syringe IV.PUSH ONE (07:30)
[2018-06-05] MEDS ORDERED: Neostigmine Inj 5 MG/5 ML Syringe IV.PUSH ONE (07:30)
[2018-06-05] MEDS ORDERED: Sodium Chlor 0.9% Inj 500 ML IV.CONT ONE (07:30)
[2018-06-05] MEDS ORDERED: Lidocaine PF 1% Inj 5 ML Syringe OTHER ONE (07:30)
[2018-06-05] MEDS ORDERED: Lidocaine 1%/Epinephrine 1:100,000 Inj 30 ML Vial ONE (08:28)
[2018-06-05] MEDS: Senna/Docusate Sodium 8.6/50 MG Tablet PO SCH ×2 (09:15→20:50)
[2018-06-05] MEDS: Famotidine PF Inj 20 MG/2 ML Vial IV.PUSH SCH ×2 (09:15→20:50)
[2018-06-05] MEDS: Budesonide-Formoterol 160/4.5 MCG 6 GM Inhaler INH SCH ×2 (09:15→20:51)
[2018-06-05] MEDS: amLODIPine 5 MG Tablet PO SCH (09:15)
[2018-06-05] MEDS: Lisinopril 20 MG Tablet PO SCH (09:15)
[2018-06-05] MEDS: Metoprolol Tartrate 50 MG Tablet PO SCH ×2 (09:15→20:50)
[2018-06-05] MEDS ORDERED: ceFAZolin Inj 1 GM Vial (Addvantage) IV.SIG ONE (11:21)
[2018-06-05] MEDS: niCARdipine Inj 25 MG in Sodium Chlor 0.9% Inj 240 ML IV.CONT PRN (13:00)
[2018-06-05] MEDS ORDERED: Morphine Inj 4 MG/ML Vial ONE (13:11)
[2018-06-05] MEDS ORDERED: fentaNYL Citrate Inj 100 MCG/2 ML Ampul ONE (13:11)
[2018-06-05] MEDS ORDERED: Labetalol HCl Inj 100 MG/20 ML Vial IV.PUSH PRN (13:16)
[2018-06-05] MEDS ORDERED: hydrALAZINE HCl Inj 20 MG/ML Vial ONE (13:16)
[2018-06-05] MEDS: hydrALAZINE HCl Inj 20 MG/ML Vial IV.PUSH PRN (13:30)
[2018-06-05] MEDS ORDERED: Fosphenytoin Inj 1,000 MGPE in Sodium Chlor 0.9% Inj 50 ML IV.SIG ONE (14:00)
[2018-06-05 14:29] LABS: ABG Base Excess 0.4 mmol/L (-2-2); ABG PCO2 31 mmHg (38-42); ABG PO2 110 mmHg (61-120)
--- NOTE | 2018-06-05 14:55 | P.PNCC ---
Subjective Subjective Remarks/Hospital Course: Patient is a 78-year-old female with past medical history significant for hypertension, peripheral arterial disease, history of vascular intervention/ stenting, arthritis who presented to the [facility] with mostly nonspecific complaints of memory loss and hallucinations for 1 week and worsening tremors of the right arm. Further workup in the emergency department showed subacute intraventricular hemorrhage into the left lateral ventricle and a focal thrombus that may be obstructing foramina of [place]. There was enlargement of the left lateral ventricle compared to the prior MRI. Also trace blood in the occipital horn of left lateral ventricle. With evidence of intraventricular hemorrhage patient was transferred emergently to [facility] for neurosurgery consult. I evaluated the patient after arrival to the ICU. Patient is profoundly hypertensive systolic blood pressure 190-200. IV labetalol 20 mg IV push given followed by Cardene infusion started. On exam patient did not appear to be in distress. No definite focal deficit however patient is oriented only to person. Reviewed CT scan with neurosurgery Dr. Palacios. On his review CT shows 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 hemorrhagic mass at foramen of Bell with asymmetric left sided ventricular dilatation. Stat MRI of the brain with and without contrast ordered. Started on Cardene infusion with target systolic blood pressure less than 140 SUBJ 05/30/18: MRI brain showed 2.3 x 1.7 cm mass within the body of the left lateral ventricle measuring 2.3 x 1.7 cm left lateral ventricle is prominent may be related to production of CSF from this mass. 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 Additional mass in the cerebellopontine angle on the left compressing upon the brainstem measuring 1.8 x 1.4 cm. Slightly more agitated and confused today. Partly secondary to mass partly could be alcohol withdrawal. Placed on as needed Haldol 05/31: Patient remains sedated received Ativan a few hours before. Currently for that reason Precedex is being held. Wakes up follows some commands. Oriented to person only. Plan for craniotomy and resection of intraventricular mass scheduled tentatively for Monday. Ct chest: 1.6 x 1.1 cm spiculated RUL nodule concerning for metastasis or primary lung malignancy. 1.1 x 1.4 cm soft tissue density inferior lateral margin of the right breast implant ?focal disruption vs breast mass. CT abdomen pelvis: 1.3 cm left adrenal mass concerning for metastatic disease given findings of brain and lung mass. 1.6 cm indeterminate low-density lesion in the posterior right lobe of the liver with numerous additional subcentimeter hypodense lesions which are too small to fully characterize. Metastatic disease cannot be entirely excluded, possibly cysts. 06/01: Remains confused slightly agitated remains on Precedex. CT angiogram yesterday of the brain showed previously demonstrated intraventricular mass however no cerebellopontine angle mass. WBC count elevated to 19.1 no fever. Will check UA-previously ordered UA had not been done. Check blood cultures, chest x-ray is clear. Continue to hold Plavix 06/02: Plan is for resection of brain mass on Monday. Patient continues breathing comfortably. 06/03: Ready for OR. Labs are in order. INR 1.1. Plavix effect noted on . 06/04: Coagulation profile normal. Patient scheduled for surgery tomorrow. No new complaints. 06/05: Patient seen in PACU shortly after surgery. Brief generalized seizure terminated with Ativan 1 mg. Patient loaded with Cerebyx 1 g. Neurologic exam nonfocal at this time. Pupils pinpoint. Required reintubation due to somnolence. Objective Vital Signs / I&O: Vital Signs 06/04/18 15:00 06/04/18 16:00 06/04/18 17:00 Temperature 98.6 F Pulse Rate 57 L 67 53 L Respiratory Rate 22 22 15 Blood Pressure 119/56 L 117/58 L 126/60 Pulse Oximetry 98 94 L 94 L 06/04/18 18:00 06/04/18 19:00 06/04/18 20:00 Temperature 98.0 F Pulse Rate 50 L 67 61 Respiratory Rate 14 20 21 Blood Pressure 130/60 144/65 H 148/67 H Pulse Oximetry 95 95 95 06/04/18 20:11 06/04/18 21:00 06/04/18 22:00 Temperature Pulse Rate 62 60 Respiratory Rate 19 23 Blood Pressure 139/64 144/65 H Pulse Oximetry 95 95 94 L 06/04/18 23:00 06/05/18 00:00 06/05/18 00:17 Temperature 98.7 F Pulse Rate 64 66 66 Respiratory Rate 21 20 25 H Blood Pressure 152/65 H 191/81 H 154/70 H Pulse Oximetry 94 L 95 94 L 06/05/18 01:00 06/05/18 02:00 06/05/18 03:00 Temperature Pulse Rate 69 65 63 Respiratory Rate 23 22 15 Blood Pressure 154/70 H 150/83 H 214/90 H Pulse Oximetry 95 94 L 94 L 06/05/18 03:15 06/05/18 04:00 06/05/18 05:00 Temperature 98.2 F Pulse Rate 58 L 66 64 Respiratory Rate 14 16 16 Blood Pressure 147/67 H 171/72 H 149/67 H Pulse Oximetry 94 L 97 95 06/05/18 06:00 06/05/18 06:12 06/05/18 06:41 Temperature 97.5 F L Pulse Rate 67 62 62 Respiratory Rate 18 27 H 16 Blood Pressure 158/70 H 173/74 H 173/74 H Pulse Oximetry 96 95 94 L Intake & Output 06/04/18 06/05/18 06/05/18 18:59 06:59 18:59 Intake Total 1300 / 1300 1100 / 1100 2000 / 2000 Output Total 400 / 400 200 / 200 1400 / 1400 Balance 900 / 900 900 / 900 600 / 600 Weight 62.6 kg Intake: IV 1100 / 1100 1050 / 1050 Precedex Inj 200 MCG In NS Inj 100 / 100 50 / 50 48 ML @ 0.2 MCG/KG/HR 2.79 mls/ hr IV.CONT TITRATE PRN Rx#: [id number] NS Inj 1,000 ML @ 84 mls/hr IV. 1000 / 1000 1000 / 1000 CONT .[id number] ALEXIS Rx#:[id number] Oral 200 / 200 50 / 50 Anesthesia Amount 1999 Output: Urine 400 / 400 200 / 200 Estimated Blood Loss 100 / 100 Urine Amount (Catheter) 1300 / 1300 Indwelling Urethral Catheter 1300 / 1300 Other: Date of Last Bowel Movement 06/02/18 06/02/18 # Bowel Movements 0 Result Diagrams: 06/04/18 09:36 06/04/18 09:36 Objective Remarks: - Constitutional Lying in bed oriented to person only. Calm. - HEENT Exam Normocephalic, atraumatic. ALEXYS - Neck Exam supple, full ROM, trachea midline - Respiratory Exam Clear breath sounds bilaterally. No wheezes or crackles - Cardiovascular Exam S1-S2 normal no murmurs. No S3-S4 - Abdominal Exam Soft, normoactive bowel sounds. No guarding. - Extremities Exam Pulses intact, normal capillary refill - Neurological Exam Pupils 1 mm and reactive to light, eyes conjugate. To somnolent to test remaining cranial nerves. Breathes spontaneously. Deep tendon reflexes 2+ bilaterally biceps, 3+ bilaterally patellar, toes downgoing both sides. Assessment and Plan - Problem List (1) Intraventricular hemorrhage, nontraumatic Code(s): I61.5 - Nontraumatic intracerebral hemorrhage, intraventricular Status: Acute (2) Hypertensive emergency Code(s): I16.1 - Hypertensive emergency Status: Acute (3) Metabolic encephalopathy Code(s): G93.41 - Metabolic encephalopathy Status: Acute (4) Altered mental status Code(s): R41.82 - Altered mental status, unspecified Status: Acute (5) History of peripheral arterial disease Code(s): Z86.79 - Personal history of other diseases of the circulatory system Status: Chronic (6) History of hypertension Code(s): Z86.79 - Personal history of other diseases of the circulatory system Status: Chronic (7) Cessation of tobacco use in previous 12 months Code(s): Z87.891 - Personal history of nicotine dependence Status: Chronic - Assessment and Plan Plan: NEURO: 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 cannot rule out liver metastases -Tight blood pressure control with Cardene and IV labetalol as needed, and PO meds, see below -Keep systolic blood pressure less than 150 -Supplement multivitamin thiamine given daily alcohol use -Watch closely for alcohol withdrawal -Mild alcohol withdrawal contributing to agitation -Use Precedex for agitation, Haldol as needed -EEG negative for seizures no indication for seizure prophylaxis -Resection of left intraventricular mass 06/05. -Seizure 06/05, stopped with Ativan 1 mg -Loaded with Cerebyx 1 g RESP: Previous tobacco use -DuoNeb every 6 hours scheduled and as needed -Pulmonology consulted for right upper lobe mass concerning for primary malignancy, with adrenal mass -Pulmonary Dr. Naidu suggesting CT-guided biopsy and PET scan once clinically more stable and neuro surgery completed -Reintubated and ISC after PACU. On mechanical ventilation [place] VC mode. CV: Hypertensive emergency History of hypertension Peripheral arterial disease -Normal saline IV fluids 84 mL/h -Cardene infusion and, IV labetalol as needed for systolic blood pressure less than 150 -Continue home enalapril and amlodipine, continue statin. Metoprolol 50 mg twice daily -Continue holding Plavix pending craniotomy -Decrease platelet activity noted on 06/01 -INR, PT, PTT normal GI: -Diet, oral famotidine -Start tube feedings in a.m. if not extubated. : -Monitor renal function closely. ID: -No indication for antibiotics at this time HEME: -Oncology. 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 Kapadia ENDO: -Electrolyte replacement per protocol PROPH: -Bilateral lower extremity SCDs. Avoid chemical DVT prophylaxis until after surgery. LINES: -Utilize peripheral IVs, central line if needed Overall impression: Status post resection left intraventricular mass. Has required reintubation and mechanical ventilation. Brief seizure terminated after 1 mg Ativan. Unable to wean from ventilator now. Remains critically ill. Critical care time 40 minutes aside from procedures.
--- NOTE | 2018-06-05 16:06 | XR ---
EXAM DATE: 06/05/2018 3:37 PM EST AGE/SEX: 78 years / Female INDICATIONS: Status post intubation. CLINICAL DATA: This is the patient's subsequent encounter. Patient reports that signs and symptoms h ave been present for 1 day and indicates a pain score of Nonresponsive. MEDICAL/SURGICAL HISTORY: Non-responsive. Non-responsive. COMPAR[place]: [facility] [place] 1[place], [place]/01/2018. [facility] [place] CHEST W CONTRAST, 05/30/2018. . FINDINGS: A single AP view of the chest demonstrates bibasilar opacities. Nodular density right upper lobe. Hea rt normal in size. Nasogastric tube with tip in stomach. Endotracheal tube 3.5 cm above the claire. The cardiomediastinal contours are unremarkable. Osseous structures are intact. CONCLUSION: 1. Right upper lobe nodule. 2. Bibasilar infiltrates. 3. Adequate placement of endotracheal tube. Electronically signed by: Brock Pineda MD Board Certified Radiologist 06/05/2018 4:05 PM EST
[2018-06-05] MEDS: Morphine Inj 4 MG/ML Vial IV.PUSH PRN (22:02)
[2018-06-06] MEDS: Morphine Inj 4 MG/ML Vial IV.PUSH PRN ×2 (00:08→05:20)
[2018-06-06] MEDS: Dexmedetomidine Inj 200 MCG in Sodium Chlor 0.9% Inj 48 ML IV.CONT PRN ×3 (00:09→16:56)
[2018-06-06] MEDS: Sod Chloride 0.9% Inj 1,000 ML IV.CONT SCH ×2 (04:26→13:48)
[2018-06-06 04:50] LABS: Baso # (Auto) 0.1 th/mm3 (0.0-0.2); Baso % (Auto) 0.5 % (0.0-2.0); Hematocrit 35.1 % (35.0-46.0); Hemoglobin 11.7 gm/dL (11.6-15.3); Lymph # (Auto) 0.8 th/mm3 (1.0-4.8); Mean Corpuscular HGB Conc 33.3 % (32.0-36.0); Mean Corpuscular Hemoglobin 33.2 pg (27.0-34.0); Mean Corpuscular Volume 99.8 fL (80.0-100.0); Mean Platelet Volume 7.9 fL (7.0-11.0); Mono # (Auto) 1.1 th/mm3 (0.0-0.9); Mono % (Auto) 6.8 % (0.0-8.0); Neut # (Auto) 13.7 th/mm3 (1.8-7.7); Neut % (Auto) 87.7 % (16.0-70.0); Platelet Count 235 th/mm3 (150-450); Red Blood Count 3.51 mil/mm3 (4.00-5.30); Red Cell Distribution Width 14.3 % (11.6-17.2); White Blood Count 15.6 th/mm3 (4.0-11.0)
[2018-06-06 05:17] LABS: Anion Gap 12 meq/L (5-15); Blood Urea Nitrogen 10 mg/dL (7-18); Calcium 7.4 mg/dL (8.5-10.1); Carbon Dioxide 22.9 meq/L (21.0-32.0); Chloride 108 meq/L (98-107); Glomerular Filtration Rate Greater Than 89 mL/min (>89); Glucose,Random 119 mg/dL (74-106); Sodium 143 meq/L (136-145)
[2018-06-06 05:20] LABS: Potassium 2.9 meq/L (3.5-5.1)
[2018-06-06] MEDS: Potassium Chlor 20 mEq Premix 20 MEQ/100 ML PIGGYBACK IV.SIG PRN ×6 (05:22→23:53)
[2018-06-06 05:30] LABS: Albumin 2.3 g/dL (3.4-5.0); Calcium-Albumin Corrected 8.8 mg/dL (8.5-10.1)
[2018-06-06 06:43] LABS: Platelet Estimate Normal (Normal); Platelet Morphology Clumped (Normal)
--- NOTE | 2018-06-06 07:16 | P.PCN ---
Date of procedure: 06/06/18 Pre-op diagnosis: Letf intraventricular tumor Post-op diagnosis: same Procedure: left frontal cranitomy for resection of tumor Anesthesia: CARL Surgeon: Duke Palacios Estimated blood loss (mL): 75 Pathology: other Condition: stable Disposition: PACU (Frozen section c/w organiuzed hematoma.)
[2018-06-06] MEDS: Famotidine PF Inj 20 MG/2 ML Vial IV.PUSH SCH (08:46)
[2018-06-06] MEDS: amLODIPine 5 MG Tablet PO SCH (08:47)
[2018-06-06] MEDS: Budesonide-Formoterol 160/4.5 MCG 6 GM Inhaler INH SCH ×2 (08:47→21:15)
[2018-06-06] MEDS: Lisinopril 20 MG Tablet PO SCH (08:47)
[2018-06-06] MEDS: Metoprolol Tartrate 50 MG Tablet PO SCH ×2 (08:47→21:14)
[2018-06-06] MEDS: Senna/Docusate Sodium 8.6/50 MG Tablet PO SCH ×3 (08:47→21:14)
[2018-06-06] MEDS ORDERED: Sod Chloride 0.9% Inj 1,000 ML IV.SIG ONE ×2 (10:09→11:00)
--- NOTE | 2018-06-06 11:09 | P.PNCC ---
Subjective Subjective Remarks/Hospital Course: Patient is a 78-year-old female with past medical history significant for hypertension, peripheral arterial disease, history of vascular intervention/ stenting, arthritis who presented to the [facility] with mostly nonspecific complaints of memory loss and hallucinations for 1 week and worsening tremors of the right arm. Further workup in the emergency department showed subacute intraventricular hemorrhage into the left lateral ventricle and a focal thrombus that may be obstructing foramina of [place]. There was enlargement of the left lateral ventricle compared to the prior MRI. Also trace blood in the occipital horn of left lateral ventricle. With evidence of intraventricular hemorrhage patient was transferred emergently to [facility] for neurosurgery consult. I evaluated the patient after arrival to the ICU. Patient is profoundly hypertensive systolic blood pressure 190-200. IV labetalol 20 mg IV push given followed by Cardene infusion started. On exam patient did not appear to be in distress. No definite focal deficit however patient is oriented only to person. Reviewed CT scan with neurosurgery Dr. Palacios. On his review CT shows 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 hemorrhagic mass at foramen of [place] with asymmetric left sided ventricular dilatation. Stat MRI of the brain with and without contrast ordered. Started on Cardene infusion with target systolic blood pressure less than 140 05/30/18: MRI brain showed 2.3 x 1.7 cm mass within the body of the left lateral ventricle measuring 2.3 x 1.7 cm left lateral ventricle is prominent may be related to production of CSF from this mass. 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 Additional mass in the cerebellopontine angle on the left compressing upon the brainstem measuring 1.8 x 1.4 cm. Slightly more agitated and confused today. Partly secondary to mass partly could be alcohol withdrawal. Placed on as needed Haldol 05/31: Patient remains sedated received Ativan a few hours before. Currently for that reason Precedex is being held. Wakes up follows some commands. Oriented to person only. Plan for craniotomy and resection of intraventricular mass scheduled tentatively for Monday. Ct chest: 1.6 x 1.1 cm spiculated RUL nodule concerning for metastasis or primary lung malignancy. 1.1 x 1.4 cm soft tissue density inferior lateral margin of the right breast implant ?focal disruption vs breast mass. CT abdomen pelvis: 1.3 cm left adrenal mass concerning for metastatic disease given findings of brain and lung mass. 1.6 cm indeterminate low-density lesion in the posterior right lobe of the liver with numerous additional subcentimeter hypodense lesions which are too small to fully characterize. Metastatic disease cannot be entirely excluded, possibly cysts. 06/01: Remains confused slightly agitated remains on Precedex. CT angiogram yesterday of the brain showed previously demonstrated intraventricular mass however no cerebellopontine angle mass. WBC count elevated to 19.1 no fever. Will check UA-previously ordered UA had not been done. Check blood cultures, chest x-ray is clear. Continue to hold Plavix 06/02: Plan is for resection of brain mass on Monday. Patient continues breathing comfortably. 06/03: Ready for OR. Labs are in order. INR 1.1. Plavix effect noted on . 06/04: Coagulation profile normal. Patient scheduled for surgery tomorrow. No new complaints. 06/05: Patient seen in PACU shortly after surgery. Brief generalized seizure terminated with Ativan 1 mg. Patient loaded with Cerebyx 1 g. Neurologic exam nonfocal at this time. Pupils pinpoint. Required reintubation due to somnolence. Subjective 06/06: T-max 100.8. Currently afebrile. Patient arousable on the ventilator. Hypotensive requiring 1 L bolus normal saline. MRI brain pending. EEG ongoing. Objective Vital Signs / I&O: Vital Signs 06/05/18 12:40 06/05/18 12:45 06/05/18 13:00 Temperature 97 F L Pulse Rate 71 64 73 Respiratory Rate 30 H 33 H 23 Blood Pressure 195/81 H 178/73 H 186/88 H Pulse Oximetry 100 100 96 06/05/18 13:15 06/05/18 13:30 06/05/18 13:39 Temperature Pulse Rate 80 84 84 Respiratory Rate 24 21 18 Blood Pressure 159/68 H 152/68 H 124/59 L Pulse Oximetry 96 100 96 06/05/18 13:45 06/05/18 14:00 06/05/18 14:10 Temperature 97.6 F Pulse Rate 80 82 Respiratory Rate 18 18 16 Blood Pressure 122/57 L Pulse Oximetry 100 100 99 06/05/18 14:31 06/05/18 14:34 06/05/18 14:43 Temperature Pulse Rate 71 72 69 Respiratory Rate 18 20 16 Blood Pressure 72/40 L 83/48 L 83/47 L Pulse Oximetry 99 98 100 06/05/18 14:45 06/05/18 15:00 06/05/18 15:15 Temperature Pulse Rate 68 67 82 Respiratory Rate 16 16 16 Blood Pressure 84/46 L 91/54 L 111/56 L Pulse Oximetry 100 100 100 06/05/18 15:20 06/05/18 15:30 06/05/18 15:45 Temperature Pulse Rate 70 68 Respiratory Rate 16 16 16 Blood Pressure 108/54 L 112/55 L Pulse Oximetry 100 100 100 06/05/18 16:00 06/05/18 17:00 06/05/18 17:42 Temperature 98.1 F Pulse Rate 68 70 71 Respiratory Rate 16 16 Blood Pressure 109/54 L 102/53 L Pulse Oximetry 100 100 06/05/18 18:00 06/05/18 18:15 06/05/18 18:30 Temperature Pulse Rate 71 79 74 Respiratory Rate 16 16 16 Blood Pressure 107/56 L 142/63 H 129/58 L Pulse Oximetry 100 100 100 06/05/18 18:45 06/05/18 19:00 06/05/18 19:15 Temperature Pulse Rate 72 75 74 Respiratory Rate 16 16 16 Blood Pressure 112/54 L 128/58 L 118/56 L Pulse Oximetry 99 99 99 06/05/18 19:30 06/05/18 19:48 06/05/18 20:00 Temperature 99.6 F Pulse Rate 73 76 Respiratory Rate 16 16 16 Blood Pressure 132/62 Pulse Oximetry 99 100 100 06/05/18 21:00 06/05/18 22:00 06/05/18 23:00 Temperature Pulse Rate 101 H 96 H 76 Respiratory Rate 21 22 16 Blood Pressure Pulse Oximetry 99 99 100 06/05/18 23:30 06/05/18 23:41 06/06/18 00:00 Temperature 100.6 F H Pulse Rate 80 75 Respiratory Rate 16 16 18 Blood Pressure 156/67 H Pulse Oximetry 100 100 99 06/06/18 01:00 06/06/18 02:00 06/06/18 03:00 Temperature Pulse Rate 68 68 73 Respiratory Rate 16 16 16 Blood Pressure Pulse Oximetry 99 100 100 06/06/18 03:30 06/06/18 03:35 06/06/18 04:00 Temperature 99.9 F H Pulse Rate 73 88 Respiratory Rate 16 16 16 Blood Pressure 131/61 Pulse Oximetry 100 100 99 06/06/18 05:00 06/06/18 06:00 06/06/18 06:07 Temperature Pulse Rate 76 78 75 Respiratory Rate 16 16 17 Blood Pressure 114/56 L Pulse Oximetry 98 98 98 06/06/18 07:00 06/06/18 07:41 06/06/18 08:00 Temperature 98.9 F Pulse Rate 70 77 Respiratory Rate 16 16 16 Blood Pressure 141/64 H 113/72 Pulse Oximetry 98 97 97 06/06/18 09:00 06/06/18 09:33 06/06/18 10:00 Temperature Pulse Rate 68 67 78 Respiratory Rate 16 16 16 Blood Pressure 120/57 L Pulse Oximetry 99 100 95 06/06/18 10:03 06/06/18 10:12 Temperature Pulse Rate 67 Respiratory Rate 16 Blood Pressure 86/48 L 114/53 L Pulse Oximetry 98 Intake & Output 06/05/18 06/06/18 06/06/18 18:59 06:59 18:59 Intake Total 3035 / 3035 1050 / 1050 200 / 200 Output Total 2635 / 2635 470 / 470 Balance 400 / 400 580 / 580 200 / 200 Weight 64.9 kg Intake: IV 1035 / 1035 1050 / 1050 200 / 200 Precedex Inj 200 MCG In NS Inj 35 / 35 50 / 50 48 ML @ 0.2 MCG/KG/HR 2.79 mls/ hr IV.CONT TITRATE PRN Rx#: [id number] NS Inj 1,000 ML @ 84 mls/hr IV. 1000 / 1000 1000 / 1000 CONT .[id number] [facility] Rx#:[id number] KCl 20 mEq Premix Inj 20 meq In 200 / 200 100 ml @ 50 mls/hr IV.SIG Q2H PRN Rx#:[id number] Oral 0 / 0 Anesthesia Amount 1999 Output: Estimated Blood Loss 100 / 100 Urine Amount (Catheter) 2425 / 2425 350 / 350 Indwelling Urethral Catheter 2425 / 2425 350 / 350 Gastric Drainage 75 / 75 Orogastric Tube 75 / 75 Wound Drainage 110 / 110 45 / 45 # 1 Left Head 110 / 110 45 / 45 Other: Date of Last Bowel Movement 06/02/18 # Bowel Movements 0 Result Diagrams: 06/06/18 04:35 06/06/18 04:35 Other Results: Microbiology 06/01/18 10:21 Blood - Peripheral Aerobic Blood Culture - Final No growth in 5 days 06/01/18 10:21 Blood - Peripheral Anaerobic Blood Culture - Final No growth in 5 days 06/01/18 10:16 Blood - Peripheral Aerobic Blood Culture - Final No growth in 5 days 06/01/18 10:16 Blood - Peripheral Anaerobic Blood Culture - Final No growth in 5 days Imaging: Chest X-Ray 05/29/18 15:37 CONCLUSION: Chronic interstitial changes. No acute abnormality. Head MRI 05/29/18 15:41 CONCLUSION: 1. There is a 2.3 x 1.7 cm mass within the body of the left lateral ventricle measuring 2.3 x 1.7 cm. The left lateral ventricle is prominent may be related to production of CSF from this mass. 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 This mass may have hemorrhaged causing the blood layering in the lateral ventricles. 2. There is also a mass in the cerebellopontine angle on the left compressing upon the brainstem measuring 1.8 x 1.4 cm. 3. Chronic ischemic small vessel vasculopathy. Abdomen/Pelvis CT 05/30/18 00:00 CONCLUSION: 1. 1.3 cm left adrenal mass. Findings are concerning for metastatic disease given findings of brain metastasis and lung mass. 2. 1.6 cm indeterminate low-density lesion in the posterior right lobe of the liver with numerous additional subcentimeter hypodense lesions which are too small to fully characterize. Although metastatic disease cannot be entirely excluded, suspect these reflect cysts. 3. Colonic diverticulosis without evidence for diverticulitis. 4. Otherwise, no additional definitive evidence for metastatic disease to the abdomen or pelvis. Chest CT 05/30/18 00:00 CONCLUSION: 1. 1.6 x 1.1 cm spiculated right upper lobe lung nodule concerning for metastasis or primary lung malignancy. 2. Additional 3 mm subpleural nodules in the superior segment of the left lower lobe are nonspecific. 3. Mild atelectasis/scarring at the right lung base with more prominent airspace consolidation at the left lung base. 4. 1.1 x 1.4 cm soft tissue density abnormality emanating from the inferior lateral margin of the right breast implant which may reflect a focal disruption. However, cannot exclude an adjacent breast mass. Correlation with patient's history and prior breast imaging is recommended. Head CTA 05/31/18 00:00 CONCLUSION: 1. There is no evidence for intracranial aneurysm or stenosis. 2. Intraventricular mass as previously described. 3. There is no evidence for mass at the cerebellopontine angle. The finding on the recent MRI was likely related to pulsation artifact in this region. . Chest X-Ray 06/01/18 00:00 CONCLUSION: No acute cardiopulmonary disease identified. Chest X-Ray 06/05/18 00:00 CONCLUSION: 1. Right upper lobe nodule. 2. Bibasilar infiltrates. 3. Adequate placement of endotracheal tube. Objective Remarks: GENERAL: This is a 78-year-old female currently orotracheally intubated SKIN: Warm and dry. HEAD: Atraumatic. Normocephalic. EYES: Pupils equal and round. About 2 mm bilaterally and reactive no scleral icterus. No injection or drainage. ENT: No nasal bleeding or discharge. Mucous membranes pink and moist. NECK: Trachea midline. No JVD. CARDIOVASCULAR: Regular rate and rhythm. S1, S2 predose 4. RESPIRATORY: No accessory muscle use. Clear to auscultation. Breath sounds equal bilaterally. GASTROINTESTINAL: Abdomen soft, non-tender, nondistended. Hepatic and splenic margins not palpable. MUSCULOSKELETAL: Extremities without clubbing, cyanosis, or edema. No obvious deformities. NEUROLOGICAL: Positive cough and gag pupils clinics. Arousable the ventilator moves all 4 extremities weakly. GENERAL: SKIN: Warm and dry. HEAD: Atraumatic. Normocephalic. EYES: Pupils equal and round. No scleral icterus. No injection or drainage. ENT: No nasal bleeding or discharge. Mucous membranes pink and moist. NECK: Trachea midline. No JVD. CARDIOVASCULAR: Regular rate and rhythm. RESPIRATORY: No accessory muscle use. Clear to auscultation. Breath sounds equal bilaterally. GASTROINTESTINAL: Abdomen soft, non-tender, nondistended. Hepatic and splenic margins not palpable. MUSCULOSKELETAL: Extremities without clubbing, cyanosis, or edema. No obvious deformities. NEUROLOGICAL: Awake and alert. No obvious cranial nerve deficits. Motor grossly within normal limits. Five out of 5 muscle strength in the arms and legs. Normal speech. PSYCHIATRIC: Appropriate mood and affect; insight and judgment normal. Assessment and Plan - Problem List (1) Intraventricular hemorrhage, nontraumatic Code(s): I61.5 - Nontraumatic intracerebral hemorrhage, intraventricular Status: Acute (2) Hypertensive emergency Code(s): I16.1 - Hypertensive emergency Status: Acute (3) Metabolic encephalopathy Code(s): G93.41 - Metabolic encephalopathy Status: Acute (4) Altered mental status Code(s): R41.82 - Altered mental status, unspecified Status: Acute (5) History of peripheral arterial disease Code(s): Z86.79 - Personal history of other diseases of the circulatory system Status: Chronic (6) History of hypertension Code(s): Z86.79 - Personal history of other diseases of the circulatory system Status: Chronic (7) Cessation of tobacco use in previous 12 months Code(s): Z87.891 - Personal history of nicotine dependence Status: Chronic - Assessment and Plan Plan: NEURO/psych: 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 -Status post left craniotomy resection of tumor 06/0506/04/2018 (program will be held for 7 days prior to surgery) -Oncology consult, also CT chest abdomen pelvis -right upper lobe mass with probable adrenal metastases cannot rule out liver metastases -Tight blood pressure control with nicardipine e and IV labetalol as needed, and PO meds, see below -Keep systolic blood pressure less than 150 -Supplement multivitamin thiamine given daily alcohol use -Watch closely for alcohol withdrawal -Mild alcohol withdrawal contributing to agitation -Use expected for agitation, Haldol as needed -EEG negative for seizures -Repeat EEG 06/06 pending. Loaded with fosphenytoin 1 g.. Start on 100 mg 3 times daily recheck level in a.m. -Today 06/06 pending RESP: Acute respiratory failure Previous tobacco use Right upper lobe speak with a mass -PRVC ventilation with ventilator bundle/head of bed at 30 degrees -Albuterol/ipratropium aerosols every 4 hours scheduled and as needed albuterol aerosols every 2 hours as needed -Pulmonology consulted for right upper lobe mass concerning for primary malignancy, with adrenal mass -Pulmonary Dr. Evans suggesting CT-guided biopsy and PET scan once clinically more stable and neuro surgery completed -Reintubated and ISC after PACU 06/05. -Spontaneous breathing trials after MRI brain today CV: Hypertensive emergency History of hypertension Peripheral arterial disease -Normal saline IV fluids 84 mL/h -Cardene infusion and, IV labetalol as needed for systolic blood pressure less than 150 -Continue home enalapril 40 mg daily and amlodipine 5 mg daily, continue pravastatin 40 mg daily. Added metoprolol treat 50 mg twice daily -Continue holding peripheral pending craniotomy -Decrease platelet activity noted on 06/01 -INR, PT, PTT normal GI: Left adrenal mass 1.3 x 1.2 cm Colonic diverticulosis Right liver mass versus cyst -Currently n.p.o. status, metoprolol for GI prophylax. Dexatrim/senna 1 tablet twice daily for bowel regimen -Start tube feedings today. if not extubated. : -Monitor renal function closely. ID: -No indication for antibiotics at this time status post cefazolin HEME: Leukocytosis -Oncology. 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 Kapadia FEN/ENDO: Hypokalemia -Electrolyte replacement per protocol PROPH: -Bilateral lower extremity SCDs. Avoid chemical DVT prophylaxis until after surgery. LINES: -Utilize peripheral IVs, central line if needed Overall impression: Status post resection left intraventricular mass. Has required reintubation and mechanical ventilation. Brief seizure terminated after 1 mg Ativan. Unable to wean from ventilator now. Remains critically ill. Critical care time 40 minutes aside from procedures. (4) Altered mental status Qualifiers: Altered mental status type: unspecified Qualified Code(s): R41.82 - Altered mental status, unspecified
[2018-06-06] MEDS: Pantoprazole Inj 40 MG Vial IV.PUSH SCH (11:26)
--- NOTE | 2018-06-06 11:29 | P.PN ---
Subjective Interval history: In for craniotomy and resection of intraventricular mass. Now on ventilator support intubated and on FiO2 of 40%. Sedated with Precedex but awake. Physical Exam Vital signs: Vital Signs 06/05/18 12:40 06/05/18 12:45 06/05/18 13:00 Temperature 97 F L Pulse Rate 71 64 73 Respiratory Rate 30 H 33 H 23 Blood Pressure 195/81 H 178/73 H 186/88 H Pulse Oximetry 100 100 96 06/05/18 13:15 06/05/18 13:30 06/05/18 13:39 Temperature Pulse Rate 80 84 84 Respiratory Rate 24 21 18 Blood Pressure 159/68 H 152/68 H 124/59 L Pulse Oximetry 96 100 96 06/05/18 13:45 06/05/18 14:00 06/05/18 14:10 Temperature 97.6 F Pulse Rate 80 82 Respiratory Rate 18 18 16 Blood Pressure 122/57 L Pulse Oximetry 100 100 99 06/05/18 14:31 06/05/18 14:34 06/05/18 14:43 Temperature Pulse Rate 71 72 69 Respiratory Rate 18 20 16 Blood Pressure 72/40 L 83/48 L 83/47 L Pulse Oximetry 99 98 100 06/05/18 14:45 06/05/18 15:00 06/05/18 15:15 Temperature Pulse Rate 68 67 82 Respiratory Rate 16 16 16 Blood Pressure 84/46 L 91/54 L 111/56 L Pulse Oximetry 100 100 100 06/05/18 15:20 06/05/18 15:30 06/05/18 15:45 Temperature Pulse Rate 70 68 Respiratory Rate 16 16 16 Blood Pressure 108/54 L 112/55 L Pulse Oximetry 100 100 100 06/05/18 16:00 06/05/18 17:00 06/05/18 17:42 Temperature 98.1 F Pulse Rate 68 70 71 Respiratory Rate 16 16 Blood Pressure 109/54 L 102/53 L Pulse Oximetry 100 100 06/05/18 18:00 06/05/18 18:15 06/05/18 18:30 Temperature Pulse Rate 71 79 74 Respiratory Rate 16 16 16 Blood Pressure 107/56 L 142/63 H 129/58 L Pulse Oximetry 100 100 100 06/05/18 18:45 06/05/18 19:00 06/05/18 19:15 Temperature Pulse Rate 72 75 74 Respiratory Rate 16 16 16 Blood Pressure 112/54 L 128/58 L 118/56 L Pulse Oximetry 99 99 99 06/05/18 19:30 06/05/18 19:48 06/05/18 20:00 Temperature 99.6 F Pulse Rate 73 76 Respiratory Rate 16 16 16 Blood Pressure 132/62 Pulse Oximetry 99 100 100 06/05/18 21:00 06/05/18 22:00 06/05/18 23:00 Temperature Pulse Rate 101 H 96 H 76 Respiratory Rate 21 22 16 Blood Pressure Pulse Oximetry 99 99 100 06/05/18 23:30 06/05/18 23:41 06/06/18 00:00 Temperature 100.6 F H Pulse Rate 80 75 Respiratory Rate 16 16 18 Blood Pressure 156/67 H Pulse Oximetry 100 100 99 06/06/18 01:00 06/06/18 02:00 06/06/18 03:00 Temperature Pulse Rate 68 68 73 Respiratory Rate 16 16 16 Blood Pressure Pulse Oximetry 99 100 100 06/06/18 03:30 06/06/18 03:35 06/06/18 04:00 Temperature 99.9 F H Pulse Rate 73 88 Respiratory Rate 16 16 16 Blood Pressure 131/61 Pulse Oximetry 100 100 99 06/06/18 05:00 06/06/18 06:00 06/06/18 06:07 Temperature Pulse Rate 76 78 75 Respiratory Rate 16 16 17 Blood Pressure 114/56 L Pulse Oximetry 98 98 98 06/06/18 07:00 06/06/18 07:41 06/06/18 08:00 Temperature 98.9 F Pulse Rate 70 77 Respiratory Rate 16 16 16 Blood Pressure 141/64 H 113/72 Pulse Oximetry 98 97 97 06/06/18 09:00 06/06/18 09:33 06/06/18 10:00 Temperature Pulse Rate 68 67 78 Respiratory Rate 16 16 16 Blood Pressure 120/57 L Pulse Oximetry 99 100 95 06/06/18 10:03 06/06/18 10:12 06/06/18 11:17 Temperature Pulse Rate 67 Respiratory Rate 16 16 Blood Pressure 86/48 L 114/53 L Pulse Oximetry 98 100 Intake & Output 06/05/18 06/06/18 06/06/18 18:59 06:59 18:59 Intake Total 3035 / 3035 1050 / 1050 1300 / 1300 Output Total 2635 / 2635 470 / 470 Balance 400 / 400 580 / 580 1300 / 1300 Weight 64.9 kg Intake: IV 1035 / 1035 1050 / 1050 1300 / 1300 Precedex Inj 200 MCG In NS Inj 35 / 35 50 / 50 48 ML @ 0.2 MCG/KG/HR 2.79 mls/ hr IV.CONT TITRATE PRN Rx#: [id number] NS Inj 1,000 ML @ 84 mls/hr IV. 1000 / 1000 1000 / 1000 CONT .[id number] ALEXIS Rx#:[id number] KCl 20 mEq Premix Inj 20 meq In 300 / 300 100 ml @ 50 mls/hr IV.SIG Q2H PRN Rx#:[id number] NS Inj 1,000 ML @ Wide Open IV. 1000 / 1000 SIG BOLUS ONE Rx#:[id number] Oral 0 / 0 Anesthesia Amount 1999 / 1999 Output: Estimated Blood Loss 100 / 100 Urine Amount (Catheter) 2425 / 2425 350 / 350 Indwelling Urethral Catheter 2425 / 2425 350 / 350 Gastric Drainage 75 / 75 Orogastric Tube 75 / 75 Wound Drainage 110 / 110 45 / 45 # 1 Left Head 110 / 110 45 / 45 Other: Date of Last Bowel Movement 06/02/18 # Bowel Movements 0 Narrative: sedated on Precedex opens eyes, not following much commands GENERAL: Elderly white female averagely built. SKIN: Warm and dry. HEAD: Atraumatic. Normocephalic. EYES: Pupils equal and round. No scleral icterus. No injection or drainage. ENT: No nasal bleeding or discharge. Mucous membranes pink and moist. NECK: Trachea midline. No JVD. CARDIOVASCULAR: Regular rate and rhythm. RESPIRATORY: No accessory muscle use. Few wheezes anteriorly and breath sounds equal bilaterally. GASTROINTESTINAL: Abdomen soft, non-tender, nondistended. Hepatic and splenic margins not palpable. MUSCULOSKELETAL: Extremities without clubbing, cyanosis, or edema. No obvious deformities. NEUROLOGICAL :sedated. PSYCHIATRIC: Cannot assess - Urinary Catheter Management Female External Cath placed during this visit: no Reason for continuing: Not indwelling catheter Indwelling Urethral Catheter Cath placed during this visit: yes Reason for continuing: Hourly intake/output Insertion date: 06/05/18 Insertion time: 08:30 Results - Labs CBC & Chem 7: 06/06/18 04:35 06/06/18 04:35 Laboratory Results - last 24 hr 06/05/18 06/06/18 06/06/18 14:24 04:35 04:35 WBC 15.6 H RBC 3.51 L Hgb 11.7 Hct 35.1 MCV 99.8 MCH 33.2 MCHC 33.3 RDW 14.3 Plt Count 235 D MPV 7.9 Prelim Diff (Auto) Slide review pending Neut % (Auto) 87.7 H Lymph % (Auto) 5.0 L [place] % (Auto) 6.8 Eos % (Auto) 0.0 Baso % (Auto) 0.5 Neut # (Auto) 13.7 H Lymph # (Auto) 0.8 L [place] # (Auto) 1.1 H Eos # (Auto) 0.0 Baso # (Auto) 0.1 WBC Differential . Diff Scan Auto diff confirmed Differential Comment . Platelet Estimate Normal Platelet Morphology Clumped H Puncture Site Art line Patient Temperature 98.6 O2 Saturation 96 ABG pH 7.49 H ABG pCO2 31 L ABG pO2 110 ABG HCO3 23 ABG O2 Content 17.8 ABG Base Excess 0.4 ABG Methemoglobin 1.4 [place] Test Present Hemoglobin 13.1 Carboxyhemoglobin 1.1 O2 Delivery Device Vent Vent Setting Prvc/ac Inspired O2 50 Critical Value No Sodium 143 Potassium 2.9 L* Chloride 108 H Carbon Dioxide 22.9 Anion Gap 12 BUN 10 Creatinine 0.38 L Estimated GFR Greater than 89 Random Glucose 119 H Calcium 7.4 L* Calcium Adj for Albumin 8.8 Albumin 2.3 L Microbiology 06/01/18 10:21 Blood - Peripheral Aerobic Blood Culture - Final No growth in 5 days 06/01/18 10:21 Blood - Peripheral Anaerobic Blood Culture - Final No growth in 5 days 06/01/18 10:16 Blood - Peripheral Aerobic Blood Culture - Final No growth in 5 days 06/01/18 10:16 Blood - Peripheral Anaerobic Blood Culture - Final No growth in 5 days - Imaging Impressions Chest X-Ray 06/05/18 00:00 CONCLUSION: 1. Right upper lobe nodule. 2. Bibasilar infiltrates. 3. Adequate placement of endotracheal tube. Assessment and Plan - Assessment (1) COPD (chronic obstructive pulmonary disease) Code(s): J44.9 - Chronic obstructive pulmonary disease, unspecified Status: Acute (2) Right upper lobe pulmonary nodule Code(s): R91.1 - Solitary pulmonary nodule Status: Acute (3) Intraventricular hemorrhage, nontraumatic Code(s): I61.5 - Nontraumatic intracerebral hemorrhage, intraventricular Status: Acute (4) Hypertensive emergency Code(s): I16.1 - Hypertensive emergency Status: Acute (5) Metabolic encephalopathy Code(s): G93.41 - Metabolic encephalopathy Status: Acute (6) Altered mental status Code(s): R41.82 - Altered mental status, unspecified Status: Acute (7) History of peripheral arterial disease Code(s): Z86.79 - Personal history of other diseases of the circulatory system Status: Chronic (8) History of hypertension Code(s): Z86.79 - Personal history of other diseases of the circulatory system Status: Chronic (9) Cessation of tobacco use in previous 12 months Code(s): Z87.891 - Personal history of nicotine dependence Status: Chronic - Plan 1 wean ventilator to CPAP and FiO2 30% 2. Continue DuoNeb nebs 4 times daily. 3. Wean sedation 4. Workup for lung mass when clinically stable 5. MRI of brain today 6 Symbicort 160 about 4.5 mcg 1 puff twice daily 7. await pathology report on biopsy. (6) Altered mental status Qualifiers: Altered mental status type: unspecified Qualified Code(s): R41.82 - Altered mental status, unspecified
--- NOTE | 2018-06-06 13:38 | P.PNNS ---
Subjective Interval history: intubated and sedated <Samanta Banda - Last Filed: 06/06/18 13:46> Physical Exam Vital signs: Vital Signs 06/05/18 13:39 06/05/18 13:45 06/05/18 14:00 Temperature 97.6 F Pulse Rate 84 80 82 Respiratory Rate 18 18 18 Blood Pressure 124/59 L 122/57 L Pulse Oximetry 96 100 100 06/05/18 14:10 06/05/18 14:31 06/05/18 14:34 Temperature Pulse Rate 71 72 Respiratory Rate 16 18 20 Blood Pressure 72/40 L 83/48 L Pulse Oximetry 99 99 98 06/05/18 14:43 06/05/18 14:45 06/05/18 15:00 Temperature Pulse Rate 69 68 67 Respiratory Rate 16 16 16 Blood Pressure 83/47 L 84/46 L 91/54 L Pulse Oximetry 100 100 100 06/05/18 15:15 06/05/18 15:20 06/05/18 15:30 Temperature Pulse Rate 82 70 Respiratory Rate 16 16 16 Blood Pressure 111/56 L 108/54 L Pulse Oximetry 100 100 100 06/05/18 15:45 06/05/18 16:00 06/05/18 17:00 Temperature 98.1 F Pulse Rate 68 68 70 Respiratory Rate 16 16 16 Blood Pressure 112/55 L 109/54 L 102/53 L Pulse Oximetry 100 100 100 06/05/18 17:42 06/05/18 18:00 06/05/18 18:15 Temperature Pulse Rate 71 71 79 Respiratory Rate 16 16 Blood Pressure 107/56 L 142/63 H Pulse Oximetry 100 100 06/05/18 18:30 06/05/18 18:45 06/05/18 19:00 Temperature Pulse Rate 74 72 75 Respiratory Rate 16 16 16 Blood Pressure 129/58 L 112/54 L 128/58 L Pulse Oximetry 100 99 99 06/05/18 19:15 06/05/18 19:30 06/05/18 19:48 Temperature Pulse Rate 74 73 Respiratory Rate 16 16 16 Blood Pressure 118/56 L 132/62 Pulse Oximetry 99 99 100 06/05/18 20:00 06/05/18 21:00 06/05/18 22:00 Temperature 99.6 F Pulse Rate 76 101 H 96 H Respiratory Rate 16 21 22 Blood Pressure Pulse Oximetry 100 99 99 06/05/18 23:00 06/05/18 23:30 06/05/18 23:41 Temperature Pulse Rate 76 80 Respiratory Rate 16 16 16 Blood Pressure 156/67 H Pulse Oximetry 100 100 100 06/06/18 00:00 06/06/18 01:00 06/06/18 02:00 Temperature 100.6 F H Pulse Rate 75 68 68 Respiratory Rate 18 16 16 Blood Pressure Pulse Oximetry 99 99 100 06/06/18 03:00 06/06/18 03:30 06/06/18 03:35 Temperature Pulse Rate 73 73 Respiratory Rate 16 16 16 Blood Pressure 131/61 Pulse Oximetry 100 100 100 06/06/18 04:00 06/06/18 05:00 06/06/18 06:00 Temperature 99.9 F H Pulse Rate 88 76 78 Respiratory Rate 16 16 16 Blood Pressure Pulse Oximetry 99 98 98 06/06/18 06:07 06/06/18 07:00 06/06/18 07:41 Temperature Pulse Rate 75 70 Respiratory Rate 17 16 16 Blood Pressure 114/56 L 141/64 H Pulse Oximetry 98 98 97 06/06/18 08:00 06/06/18 09:00 06/06/18 09:33 Temperature 98.9 F Pulse Rate 77 68 67 Respiratory Rate 16 16 16 Blood Pressure 113/72 120/57 L Pulse Oximetry 97 99 100 06/06/18 10:00 06/06/18 10:03 06/06/18 10:12 Temperature Pulse Rate 78 67 Respiratory Rate 16 16 Blood Pressure 86/48 L 114/53 L Pulse Oximetry 95 98 06/06/18 11:01 06/06/18 11:17 06/06/18 11:18 Temperature Pulse Rate 61 87 Respiratory Rate 16 16 16 Blood Pressure 107/53 L Pulse Oximetry 100 100 06/06/18 11:31 06/06/18 12:00 06/06/18 12:01 Temperature Pulse Rate 78 65 Respiratory Rate 16 16 Blood Pressure 112/54 L 100/47 L Pulse Oximetry 100 100 06/06/18 13:01 Temperature Pulse Rate 90 Respiratory Rate 16 Blood Pressure 152/64 H Pulse Oximetry 97 Intake & Output 06/05/18 06/06/18 06/06/18 18:59 06:59 18:59 Intake Total 3035 / 3035 1050 / 1050 1400 / 1400 Output Total 2635 / 2635 470 / 470 Balance 400 / 400 580 / 580 1400 / 1400 Weight 64.9 kg Intake: IV 1035 / 1035 1050 / 1050 1400 / 1400 Precedex Inj 200 MCG In NS Inj 35 / 35 50 / 50 48 ML @ 0.2 MCG/KG/HR 2.79 mls/ hr IV.CONT TITRATE PRN Rx#: [id number] NS Inj 1,000 ML @ 84 mls/hr IV. 1000 / 1000 1000 / 1000 CONT .[id number] ALEXIS Rx#:[id number] KCl 20 mEq Premix Inj 20 meq In 400 / 400 100 ml @ 50 mls/hr IV.SIG Q2H PRN Rx#:[id number] NS Inj 1,000 ML @ Wide Open IV. 1000 / 1000 SIG BOLUS ONE Rx#:[id number] Oral 0 / 0 Anesthesia Amount 1999 / 1999 Output: Estimated Blood Loss 100 / 100 Urine Amount (Catheter) 2425 / 2425 350 / 350 Indwelling Urethral Catheter 2425 / 2425 350 / 350 Gastric Drainage 75 / 75 Orogastric Tube 75 / 75 Wound Drainage 110 / 110 45 / 45 # 1 Left Head 110 / 110 45 / 45 Other: Date of Last Bowel Movement 06/02/18 # Bowel Movements 0 Narrative: patient is intubated and sedated on precedex drip. she does open eyes and follows simple commands x 4 extremities, she appears slightly weaker on the right side. pupils are equal. wound with dressing clean dry and intact. Ventriculostomy drain in place draining well at 14 cm H20. CSF dark red. - Urinary Catheter Management Female External Cath placed during this visit: no Reason for continuing: Not indwelling catheter Indwelling Urethral Catheter Cath placed during this visit: yes Reason for continuing: Hourly intake/output Insertion date: 06/05/18 Insertion time: 08:30 <Samanta Banda - Last Filed: 06/06/18 13:46> Vital signs: Vital Signs 06/06/18 09:33 06/06/18 10:00 06/06/18 10:03 Temperature Pulse Rate 67 78 Respiratory Rate 16 16 Blood Pressure 120/57 L 86/48 L Pulse Oximetry 100 95 06/06/18 10:12 06/06/18 11:01 06/06/18 11:17 Temperature Pulse Rate 67 61 Respiratory Rate 16 16 16 Blood Pressure 114/53 L 107/53 L Pulse Oximetry 98 100 100 06/06/18 11:18 06/06/18 11:31 06/06/18 12:00 Temperature Pulse Rate 87 78 65 Respiratory Rate 16 16 16 Blood Pressure 112/54 L Pulse Oximetry 100 100 06/06/18 12:01 06/06/18 13:01 06/06/18 14:00 Temperature Pulse Rate 90 88 Respiratory Rate 16 Blood Pressure 100/47 L 152/64 H Pulse Oximetry 97 06/06/18 14:01 06/06/18 15:54 06/06/18 16:00 Temperature 98.8 F Pulse Rate 90 67 Respiratory Rate 17 16 Blood Pressure 135/62 107/53 L Pulse Oximetry 97 100 98 06/06/18 16:03 06/06/18 16:22 06/06/18 16:23 Temperature Pulse Rate 66 84 Respiratory Rate 5 L 11 L 18 Blood Pressure 107/53 L Pulse Oximetry 99 95 06/06/18 17:00 06/06/18 17:58 06/06/18 18:00 Temperature Pulse Rate 81 86 89 Respiratory Rate 20 20 Blood Pressure 140/61 131/60 Pulse Oximetry 99 97 06/06/18 18:03 06/06/18 18:33 06/06/18 19:00 Temperature 99.1 F Pulse Rate 87 92 H 91 H Respiratory Rate 20 21 22 Blood Pressure 131/60 144/63 H 144/93 H Pulse Oximetry 97 98 97 06/06/18 19:03 06/06/18 19:33 06/06/18 20:00 Temperature Pulse Rate 89 81 107 H Respiratory Rate 20 15 32 H Blood Pressure 150/65 H 118/56 L Pulse Oximetry 91 L 92 L 96 06/06/18 20:03 06/06/18 20:04 06/06/18 20:06 Temperature Pulse Rate 99 H 91 H Respiratory Rate 21 25 H 25 H Blood Pressure 164/71 H Pulse Oximetry 95 95 06/06/18 20:33 06/06/18 21:00 06/06/18 21:03 Temperature Pulse Rate 77 98 H 99 H Respiratory Rate 16 22 22 Blood Pressure 133/60 180/73 H Pulse Oximetry 97 97 96 06/06/18 21:33 06/06/18 22:00 06/06/18 22:03 Temperature Pulse Rate 78 96 H 100 H Respiratory Rate 15 25 H 25 H Blood Pressure 121/58 L 161/72 H Pulse Oximetry 98 96 96 06/06/18 22:33 06/06/18 22:35 06/06/18 23:00 Temperature Pulse Rate 100 H 104 H 101 H Respiratory Rate 28 H 29 H 26 H Blood Pressure 177/74 H 156/70 H Pulse Oximetry 96 95 98 06/06/18 23:03 06/06/18 23:33 06/06/18 23:38 Temperature Pulse Rate 101 H 102 H 100 H Respiratory Rate 29 H 29 H 20 Blood Pressure 173/76 H 176/76 H 142/66 H Pulse Oximetry 97 95 96 06/06/18 23:41 06/07/18 00:00 06/07/18 00:03 Temperature Pulse Rate 101 H 96 H 94 H Respiratory Rate 28 H 23 21 Blood Pressure 164/72 H Pulse Oximetry 95 95 06/07/18 00:33 06/07/18 01:00 06/07/18 01:03 Temperature Pulse Rate 98 H 103 H 101 H Respiratory Rate 21 22 22 Blood Pressure 162/70 H 163/70 H Pulse Oximetry 95 95 95 06/07/18 01:33 06/07/18 02:00 06/07/18 02:03 Temperature Pulse Rate 96 H 96 H 98 H Respiratory Rate 18 20 20 Blood Pressure 167/71 H 151/66 H Pulse Oximetry 96 96 95 06/07/18 02:33 06/07/18 03:00 06/07/18 03:03 Temperature Pulse Rate 93 H 87 91 H Respiratory Rate 17 16 17 Blood Pressure 158/70 H 144/63 H Pulse Oximetry 96 96 96 06/07/18 03:33 06/07/18 03:39 06/07/18 03:43 Temperature Pulse Rate 90 96 H Respiratory Rate 19 20 19 Blood Pressure 155/69 H Pulse Oximetry 96 96 06/07/18 04:00 06/07/18 04:03 06/07/18 04:33 Temperature 98.7 F Pulse Rate 96 H 91 H 91 H Respiratory Rate 19 18 19 Blood Pressure 154/80 H 160/69 H 153/64 H Pulse Oximetry 96 93 L 96 06/07/18 05:00 06/07/18 05:03 06/07/18 05:33 Temperature Pulse Rate 91 H 93 H 90 Respiratory Rate 18 19 17 Blood Pressure 154/66 H 146/64 H Pulse Oximetry 97 97 98 06/07/18 05:50 06/07/18 06:00 06/07/18 06:03 Temperature Pulse Rate 90 98 H 97 H Respiratory Rate 21 22 Blood Pressure 158/67 H Pulse Oximetry 96 96 06/07/18 06:33 06/07/18 07:00 06/07/18 07:03 Temperature Pulse Rate 92 H 92 H 99 H Respiratory Rate 19 17 20 Blood Pressure 164/69 H 164/72 H Pulse Oximetry 97 96 96 06/07/18 07:16 06/07/18 07:30 06/07/18 07:45 Temperature Pulse Rate 86 97 H 100 H Respiratory Rate 17 18 20 Blood Pressure 152/66 H 145/55 H 168/74 H Pulse Oximetry 95 96 96 06/07/18 08:00 06/07/18 09:02 Temperature 99.8 F H Pulse Rate 85 77 Respiratory Rate 17 28 H Blood Pressure 152/67 H Pulse Oximetry 95 94 L Intake & Output 06/06/18 06/07/18 06/07/18 18:59 06:59 18:59 Intake Total 2300 / 2300 1050 / 1050 Output Total 366 / 366 620 / 620 Balance 1934 / 1934 430 / 430 Weight 62.6 kg Intake: IV 2300 / 2300 1050 / 1050 Precedex Inj 200 MCG In NS Inj 50 / 50 50 / 50 48 ML @ 0.2 MCG/KG/HR 2.79 mls/ hr IV.CONT TITRATE PRN Rx#: [id number] NS Inj 1,000 ML @ 84 mls/hr IV. 798 / 798 796 / 796 CONT .[id number] ALEXIS Rx#:[id number] Cerebyx Inj 100 MGPE In NS Inj 52 / 52 104 / 104 50 ML @ 208 mls/hr IV.SIG Q8HR ALEXIS Rx#:[id number] KCl 20 mEq Premix Inj 20 meq In 400 / 400 100 / 100 100 ml @ 50 mls/hr IV.SIG Q2H PRN Rx#:[id number] NS Inj 1,000 ML @ Wide Open IV. 1000 / 1000 SIG BOLUS ONE Rx#:[id number] Output: Urine Amount (Catheter) 350 / 350 600 / 600 Indwelling Urethral Catheter 350 / 350 600 / 600 Wound Drainage # 1 Left Head Other: Date of Last Bowel Movement 06/02/18 06/02/18 # Bowel Movements 0 - Urinary Catheter Management Female External Cath placed during this visit: no Indwelling Urethral Catheter Cath placed during this visit: no <PhilipDuke - Last Filed: 06/07/18 09:28> Assessment and Plan - Plan 78 yo female with vague constellation of symptoms GCS-[address] shows 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 hemorrhagic mass Will follow with you 05/30/18: cont neuro checks in ICU Dr. 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 at midnight on Monday night into Monday Minimize sedating meds, etc. 06/03/18: Appears to be a bit more encephalopathic today, possible contribution of hospital delirium versus her mild hydrocephalus, though favor delirium since her level of alertness remains stable Dr. 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 at midnight tonight Continue to minimize sedating meds, etc. 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 Palacios 06/06/18: POD #1. pt had seizure last night requiring intubation. She has been started on Keppra for seizures. On exam she opens eyes and follows commands. Postoperative MRI Brain w/wo contrast has been ordered and pending. Obtain EEG to assess seizures. Continue ventriculostomy draining, add ICP monitoring. Start sq lovenox for dvt prophylaxis. Will follow. <Samanta Banda - Last Filed: 06/06/18 13:46> - Attending Attestation POD#1 Neurologically stable Path pending I have personally seen and examined the patient, reviewed pertinent labs and imaging studies. I agree with Ms. Banda's assessment as well as plan of care. <Duke Palacios - Last Filed: 06/07/18 09:28>
[2018-06-06] MEDS: Fosphenytoin Inj 100 MGPE in Sodium Chlor 0.9% Inj 50 ML IV.SIG SCH ×2 (13:51→21:14)
[2018-06-06] MEDS: Artificial Tears Opth Drops 15 ML Bottle EACH EYE SCH ×2 (13:51→21:15)
[2018-06-06] MEDS ORDERED: Gadobutrol PF 2 MMOL/2 ML Vial (for RAD) IV.SIG ONE (16:11)
--- NOTE | 2018-06-06 16:16 | MR ---
EXAM DATE: 06/06/2018 3:48 PM EST AGE/SEX: 78 years / Female INDICATIONS: . Post op for tumor removal. CLINICAL DATA: This is the patient's subsequent encounter. Patient reports that signs and symptoms h ave been present for 4 - 6 days and indicates a pain score of Nonresponsive. MEDICAL/SURGICAL HISTORY: Seizures. Hypertension. Hypercholesterolemia. . craineotomy COMPARISON: OUT, CT HEAD W/O CONTRAST, 05/29/2018. [facility] [place], MR HEAD W & W/O CONTRAST, 05/29/2018. . TECHNIQUE: Multiplanar, multisequence examination of the brain was performed without and with 6 ml Ga davist (gadobutrol) contrast as a single exam dose. FINDINGS: Since prior MRI, a left frontal craniotomy has occurred. The mass previously seen in the left lateral ventricle has been resected. Small amount of dependently layering subacute blood seen posteriorly in the left lateral ventricle, similar to the preoperative studies; there is superimposed acute blood i n both lateral ventricles, especially on the left. Air is also seen in both lateral ventricles. The l eft lateral ventricle is smaller in the interim and there is less shift of the septum pellucidum, cur rently measuring up to 5 mm. There is mild left frontal lobe cerebral edema and patchy parenchymal he morrhage around the operative tract but no large intraparenchymal bleed. Pneumocephaly in the bifrontal subdural spaces. There is small, acute blood diffusely in the subdural spaces of both convexities and tracking in between the leaves of the falx. CONCLUSION: 1. 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 2. Intraventricular blood as described. Left lateral ventricle is slightly smaller. 3. Air and small amount of acute blood in the subdural spaces of both convexities. There is also sma ll subdural blood in between the leaves of the falx. 4. Roughly 5 mm of rightward midline shift, improved. Electronically signed by: Kaiser Regan MD Board Certified Radiologist 06/06/2018 3:59 PM EST
--- NOTE | 2018-06-06 17:03 | P.PNONC ---
Subjective Interval history: T-max 100.6 overnight Patient currently sedated on Precedex and intubated after she had seizure overnight Currently on CPAP trials; appears to be tolerating well Opens her eyes occasionally; and son at bedside Objective Vital Signs/Intake & Output: Vital Signs 06/05/18 17:00 06/05/18 17:42 06/05/18 18:00 Temperature Pulse Rate 70 71 71 Respiratory Rate 16 16 Blood Pressure 102/53 L 107/56 L Pulse Oximetry 100 100 06/05/18 18:15 06/05/18 18:30 06/05/18 18:45 Temperature Pulse Rate 79 74 72 Respiratory Rate 16 16 16 Blood Pressure 142/63 H 129/58 L 112/54 L Pulse Oximetry 100 100 99 06/05/18 19:00 06/05/18 19:15 06/05/18 19:30 Temperature Pulse Rate 75 74 73 Respiratory Rate 16 16 16 Blood Pressure 128/58 L 118/56 L 132/62 Pulse Oximetry 99 99 99 06/05/18 19:48 06/05/18 20:00 06/05/18 21:00 Temperature 99.6 F Pulse Rate 76 101 H Respiratory Rate 16 16 21 Blood Pressure Pulse Oximetry 100 100 99 06/05/18 22:00 06/05/18 23:00 06/05/18 23:30 Temperature Pulse Rate 96 H 76 80 Respiratory Rate 22 16 16 Blood Pressure 156/67 H Pulse Oximetry 99 100 100 06/05/18 23:41 06/06/18 00:00 06/06/18 01:00 Temperature 100.6 F H Pulse Rate 75 68 Respiratory Rate 16 18 16 Blood Pressure Pulse Oximetry 100 99 99 06/06/18 02:00 06/06/18 03:00 06/06/18 03:30 Temperature Pulse Rate 68 73 73 Respiratory Rate 16 16 16 Blood Pressure 131/61 Pulse Oximetry 100 100 100 06/06/18 03:35 06/06/18 04:00 06/06/18 05:00 Temperature 99.9 F H Pulse Rate 88 76 Respiratory Rate 16 16 16 Blood Pressure Pulse Oximetry 100 99 98 06/06/18 06:00 06/06/18 06:07 06/06/18 07:00 Temperature Pulse Rate 78 75 70 Respiratory Rate 16 17 16 Blood Pressure 114/56 L 141/64 H Pulse Oximetry 98 98 98 06/06/18 07:41 06/06/18 08:00 06/06/18 09:00 Temperature 98.9 F Pulse Rate 77 68 Respiratory Rate 16 16 16 Blood Pressure 113/72 Pulse Oximetry 97 97 99 06/06/18 09:33 06/06/18 10:00 06/06/18 10:03 Temperature Pulse Rate 67 78 Respiratory Rate 16 16 Blood Pressure 120/57 L 86/48 L Pulse Oximetry 100 95 06/06/18 10:12 06/06/18 11:01 06/06/18 11:17 Temperature Pulse Rate 67 61 Respiratory Rate 16 16 16 Blood Pressure 114/53 L 107/53 L Pulse Oximetry 98 100 100 06/06/18 11:18 06/06/18 11:31 06/06/18 12:00 Temperature Pulse Rate 87 78 65 Respiratory Rate 16 16 16 Blood Pressure 112/54 L Pulse Oximetry 100 100 06/06/18 12:01 06/06/18 13:01 06/06/18 14:00 Temperature Pulse Rate 90 88 Respiratory Rate 16 Blood Pressure 100/47 L 152/64 H Pulse Oximetry 97 06/06/18 14:01 06/06/18 15:54 06/06/18 16:00 Temperature 98.8 F Pulse Rate 90 67 Respiratory Rate 17 16 Blood Pressure 135/62 107/53 L Pulse Oximetry 97 100 98 06/06/18 16:03 06/06/18 16:22 06/06/18 16:23 Temperature Pulse Rate 66 84 Respiratory Rate 5 L 11 L 18 Blood Pressure 107/53 L Pulse Oximetry 99 95 Intake & Output 06/05/18 06/06/18 06/06/18 18:59 06:59 18:59 Intake Total 3035 / 3035 1050 / 1050 2045 Output Total 2635 / 2635 470 / 470 Balance 400 / 400 580 / 580 2045 Weight 143 lb 1.28 oz Intake: IV 1035 / 1035 1050 / 1050 2045 Precedex Inj 200 MCG In NS Inj 35 / 35 50 / 50 48 ML @ 0.2 MCG/KG/HR 2.79 mls/ hr IV.CONT TITRATE PRN Rx#: [id number] NS Inj 1,000 ML @ 84 mls/hr IV. 1000 / 1000 1000 / 1000 594 / 594 CONT .[id number] [facility] Rx#:[id number] Cerebyx Inj 100 MGPE In NS Inj 52 / 52 50 ML @ 208 mls/hr IV.SIG Q8HR [facility] Rx#:[id number] KCl 20 mEq Premix Inj 20 meq In 400 / 400 100 ml @ 50 mls/hr IV.SIG Q2H PRN Rx#:[id number] NS Inj 1,000 ML @ Wide Open IV. 1000 / 1000 SIG BOLUS ONE Rx#:[id number] Oral 0 / 0 Anesthesia Amount 1999 Output: Estimated Blood Loss 100 / 100 Urine Amount (Catheter) 2425 / 2425 350 / 350 Indwelling Urethral Catheter 2425 / 2425 350 / 350 Gastric Drainage 75 / 75 Orogastric Tube 75 / 75 Wound Drainage 110 / 110 45 / 45 # 1 Left Head 110 / 110 45 / 45 Other: Date of Last Bowel Movement 06/02/18 # Bowel Movements 0 Result Diagrams: 06/06/18 04:35 06/06/18 04:35 Laboratory Results: Laboratory Results - last 24 hr 06/06/18 06/06/18 04:35 04:35 WBC 15.6 H RBC 3.51 L Hgb 11.7 Hct 35.1 MCV 99.8 MCH 33.2 MCHC 33.3 RDW 14.3 Plt Count 235 D MPV 7.9 Prelim Diff (Auto) Slide review pending Neut % (Auto) 87.7 H Lymph % (Auto) 5.0 L Ocean % (Auto) 6.8 Eos % (Auto) 0.0 Baso % (Auto) 0.5 Neut # (Auto) 13.7 H Lymph # (Auto) 0.8 L Ocean # (Auto) 1.1 H Eos # (Auto) 0.0 Baso # (Auto) 0.1 WBC Differential . Diff Scan Auto diff confirmed Differential Comment . Platelet Estimate Normal Platelet Morphology Clumped H Sodium 143 Potassium 2.9 L* Chloride 108 H Carbon Dioxide 22.9 Anion Gap 12 BUN 10 Creatinine 0.38 L Estimated GFR Greater than 89 Random Glucose 119 H Calcium 7.4 L* Calcium Adj for Albumin 8.8 Albumin 2.3 L Culture Results: Microbiology 06/01/18 10:21 Aerobic Blood Culture - Final Blood - Peripheral No growth in 5 days Anaerobic Blood Culture - Final No growth in 5 days 06/01/18 10:16 Aerobic Blood Culture - Final Blood - Peripheral No growth in 5 days Anaerobic Blood Culture - Final No growth in 5 days Imaging Studies: Impressions Chest X-Ray 06/05/18 00:00 CONCLUSION: 1. Right upper lobe nodule. 2. Bibasilar infiltrates. 3. Adequate placement of endotracheal tube. Head MRI 06/06/18 00:00 CONCLUSION: 1. 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 2. Intraventricular blood as described. Left lateral ventricle is slightly smaller. 3. Air and small amount of acute blood in the subdural spaces of both convexities. There is also small subdural blood in between the leaves of the falx. 4. Roughly 5 mm of rightward midline shift, improved. Medications: Active Medications Generic Name Dose Route Start Last Admin Trade Name Freq PRN Reason Stop Dose Admin Albuterol 1 ampul 06/06/18 12:00 06/06/18 16:25 Duoneb Neb (Batsheva) NEB 1 ampul Q4HR NEB [facility] Administration Amlodipine Besylate 5 mg 05/29/18 17:30 06/06/18 08:47 Norvasc PO Not Given DAILY [facility] Artificial Tears 1 drop 06/06/18 12:00 06/06/18 13:51 Tears Naturale Opth Drops EACH EYE 1 drop Q8H [facility] Administration Budesonide/Formoterol Fumarate 1 puff 06/01/18 21:00 06/06/18 08:47 Symbicort 160/4.5 Mcg Inh INH Not Given BID [facility] Enalaprilat 2.5 mg 06/01/18 02:01 06/05/18 21:52 Vasotec Inj IV.PUSH 2.5 mg Q6H PRN Administration SBP > 150 Haloperidol Lactate 2 mg 05/30/18 13:17 06/02/18 17:04 Haldol Inj IV.PUSH 2 mg Q4H PRN Administration AGITATION Hydralazine HCl 10 mg 06/05/18 13:15 06/05/18 13:30 Apresoline Inj IV.PUSH 10 mg Q30M PRN Administration SBP > 160 Sodium Chloride 1,000 mls @ 84 mls/hr 05/29/18 16:00 06/06/18 13:48 Ns Inj IV.CONT 84 mls/hr .[id number] [facility] Administration Nicardipine HCl 25 mg/ Sodium 250 mls @ 50 mls/hr 05/29/18 15:38 06/05/18 13: 39 Chloride IV.CONT 0 mg/hr TITRATE PRN 0 mls/hr Per Protocol Titration Protocol 5 MG/HR Potassium Chloride 20 meq in 100 mls @ 50 mls/hr 05/29/18 16:53 06/06/18 13: 15 Kcl 20 Meq Premix Inj IV.SIG Infused Q2H PRN Infusion For Potassium 2.8 - 3.2 mEq/L Dexmedetomidine HCl 200 mcg/ 50 mls @ 2.79 mls/hr 05/30/18 18:22 06/06/18 04: 45 Sodium Chloride IV.CONT 0.3 mcg/kg/hr TITRATE PRN 4.19 mls/hr Per Protocol Administration Protocol 0.2 MCG/KG/HR Fosphenytoin Sodium 100 mgpe/ 52 mls @ 208 mls/hr 06/06/18 14:00 06/06/18 14: 06 Sodium Chloride IV.SIG Infused Q8HR [facility] Infusion Labetalol HCl 10 mg 06/01/18 01:59 06/05/18 03:14 Trandate Inj IV.PUSH 10 mg Q4H PRN Administration Sbp>140, Dbp>90 Lisinopril 40 mg 05/29/18 17:30 06/06/18 08:47 Prinivil PO Not Given DAILY [facility] Metoprolol Tartrate 50 mg 05/30/18 14:15 06/06/18 08:47 Lopressor PO Not Given BID [facility] Morphine Sulfate 2 mg 06/01/18 18:00 06/06/18 05:20 Morphine Inj IV.PUSH 2 mg Q30M PRN Administration SEVERE ANXIETY OR AGITATION Pantoprazole Sodium 40 mg 06/06/18 11:00 06/06/18 11:26 Protonix Inj IV.PUSH 40 mg DAILY [facility] Administration Potassium Chloride 40 meq 05/29/18 16:53 06/02/18 06:38 Kcl Liq PO 40 meq UNSCH PRN Administration Potassium level 3.3-3.5 mEq/L Pravastatin Sodium 40 mg 05/30/18 09:00 06/06/18 08:52 Pravachol PO Not Given DAILY [facility] Senna/Docusate Sodium 1 tab 05/29/18 21:00 06/06/18 08:51 Kate-Colace PO Not Given BID [facility] Sodium Chloride 2 ml 05/29/18 21:00 06/06/18 08:47 Ns Flush IV.FLUSH 2 ml BID [facility] Administration Objective Remarks: GENERAL: Acutely ill older female resting in bed intubated and sedated SKIN: Warm and dry. HEAD: Normocephalic. EYES: No scleral icterus. No injection or drainage. NECK: Supple, trachea midline. No JVD or lymphadenopathy. CARDIOVASCULAR: Regular rate and rhythm without murmurs. RESPIRATORY: On CPAP trials; mechanically ventilated GASTROINTESTINAL: Abdomen soft, non-tender, nondistended. EXTREMITIES: SCDs to bilateral lower extremities MUSCULOSKELETAL: Adequate muscle tone. NEUROLOGICAL: Sedated on precedex Assessment/Plan - Plan 78-year-old woman who appears to have metastatic disease as CT of the chest shows 1.6 x 1.1 cm spiculated right upper lobe lung nodule concerning for metastatic disease or primary lung malignancy. 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 CT of the abdomen and pelvis reveals 1.3 cm left adrenal mass, liver mass 1. Patient had resection of brain mass yesterday by Dr. Palacios. Overnight she developed seizure and was intubated for airway protection. 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 2. I discussed with the and son that the pathology will likely not be back until at least Monday. 3. Critical care management per timber girdler. 4. Continue supportive care - Attending Statement The exam, history, and the medical decision-making described in the above note were completed with the assistance of the mid-level provider. I reviewed and agree with the findings presented. I attest that I had a [id number] encounter with the patient on the same day, and personally performed and documented my assessment and findings in the medical record. Family meeting with son and who were at bedside. We had a lengthy discussion about her diagnosis, imaging study that showed a right upper lung spiculated mass in addition to possible metastatic disease in the left adrenal gland and possible liver lesion. We discussed the potential that the EXHA[employer] EMISSIONS AUTOMOTIVE TECHNICIAN pathology is from an underlying bronchogenic carcinoma however the final pathology still pending. We discussed that there are many potential treatment for metastatic lung cancer however I would require that the person that were treating is awake and cognizant of the treatment efforts. In other words we would need Mrs. Pryor to wake up or recover from her mental status change and confusion. We discussed the supportive care that she is received after the neurosurgical intervention to reverse her mental status change because by the ventricular dilatation. We will continue to monitor her progress daily. We discussed that treatment for metastatic lung cancer is palliative. Thus I would recommend against treating someone who cannot participate in the decision making for the treatment. Her son and agree. Both are hopeful for her cognitive recovery. There were many questions were answered to their satisfaction. Greater than 30 minutes spent discussing her case and answering questions.
--- NOTE | 2018-06-06 19:11 | MG ---
cc: Daren Robles MD Hallucinating for 1 week, left-sided hydrocephalus. There is left central slowing in the 3 Hz range on top of some diffuse slowing in the 6-7 Hz range. Some sharply contoured delta activity is noted, especially in the left parieto-occipital head region and that is restricted to the left side, not on the right side. No spikes are seen, but there are some sharp waves of higher amplitudes seen on the left hemisphere posteriorly. Hyperventilation is not performed. Photic stimulation is performed without significant posterior driving. IMPRESSION: No ongoing seizures, but certainly some high amplitude sharp waves seen on the left. Whether there could be a breach rhythm over that side is unclear, but the patient is at increased risk for seizures. MD JUAN MANUEL RiversM/aga , 06:11 PM , 06:16 PM
[2018-06-07] MEDS: Sod Chloride 0.9% Inj 1,000 ML IV.CONT SCH ×2 (02:20→14:08)
[2018-06-07] MEDS: Dexmedetomidine Inj 200 MCG in Sodium Chlor 0.9% Inj 48 ML IV.CONT PRN (04:59)
[2018-06-07] MEDS: Fosphenytoin Inj 100 MGPE in Sodium Chlor 0.9% Inj 50 ML IV.SIG SCH ×3 (04:59→21:00)
[2018-06-07 05:05] LABS: Baso % (Auto) 0.2 % (0.0-2.0); Hematocrit 30.5 % (35.0-46.0); Hemoglobin 10.1 gm/dL (11.6-15.3); Lymph # (Auto) 0.8 th/mm3 (1.0-4.8); Lymph % (Auto) 6.1 % (9.0-44.0); Mean Corpuscular HGB Conc 33.1 % (32.0-36.0); Mean Corpuscular Hemoglobin 33.3 pg (27.0-34.0); Mean Corpuscular Volume 100.6 fL (80.0-100.0); Mean Platelet Volume 7.4 fL (7.0-11.0); Mono % (Auto) 7.8 % (0.0-8.0); Neut # (Auto) 11.4 th/mm3 (1.8-7.7); Neut % (Auto) 85.9 % (16.0-70.0); Platelet Count 180 th/mm3 (150-450); Red Blood Count 3.03 mil/mm3 (4.00-5.30); Red Cell Distribution Width 14.5 % (11.6-17.2); White Blood Count 13.3 th/mm3 (4.0-11.0)
[2018-06-07 05:32] LABS: Anion Gap 11 meq/L (5-15); Blood Urea Nitrogen 14 mg/dL (7-18); Calcium 8.3 mg/dL (8.5-10.1); Carbon Dioxide 21.9 meq/L (21.0-32.0); Chloride 109 meq/L (98-107); Glomerular Filtration Rate Greater Than 89 mL/min (>89); Glucose,Random 111 mg/dL (74-106); Magnesium 1.7 mg/dL (1.5-2.5); Phenytoin (Dilantin) 9.6 mcg/mL (10.0-20.0); Phosphorus 1.8 mg/dL (2.5-4.9); Potassium 3.4 meq/L (3.5-5.1); Sodium 142 meq/L (136-145)
[2018-06-07] MEDS: Artificial Tears Opth Drops 15 ML Bottle EACH EYE SCH ×3 (05:45→19:53)
--- NOTE | 2018-06-07 08:17 | P.PNNEU ---
Subjective Active Medications: Active Medications Acetaminophen (Tylenol) 650 mg PO Q6H PRN PRN Reason: PAIN 1-10 AND/OR FEVER >101F Al Hydroxide/Mg Hydroxide (Milk Of Magnalexis Liq) 30 ml PO Q12H PRN PRN Reason: Mild Constipation Albuterol (Duoneb Neb (Alexis)) 1 ampul NEB Q4HR NEB [facility] Last Admin: 06/07/18 03:41 Dose: 1 ampul Albuterol (Albuterol Neb (Prn)) 2.5 mg NEB Q2HR NEB PRN PRN Reason: DYSPNEA Amlodipine Besylate (Norvasc) 5 mg PO DAILY [facility] Last Admin: 06/06/18 08:47 Dose: Not Given Artificial Tears (Tears Naturale Opth Drops) 1 drop EACH EYE Q8H [facility] Last Admin: 06/07/18 05:45 Dose: 1 drop Bisacodyl (Dulcolax Supp) 10 mg RECTAL DAILY PRN PRN Reason: SEVERE CONSITIPATION Budesonide/Formoterol Fumarate (Symbicort 160/4.5 Mcg Inh) 1 puff INH BID [facility] Last Admin: 06/06/18 21:15 Dose: Not Given Enalaprilat (Vasotec Inj) 2.5 mg IV.PUSH Q6H PRN PRN Reason: SBP > 150 Last Admin: 06/07/18 02:19 Dose: 2.5 mg Enoxaparin Sodium (Lovenox Inj) 40 mg SQ DAILY [facility] Haloperidol Lactate (Haldol Inj) 2 mg IV.PUSH Q4H PRN PRN Reason: AGITATION Last Admin: 06/02/18 17:04 Dose: 2 mg Hydralazine HCl (Apresoline Inj) 10 mg IV.PUSH Q30M PRN PRN Reason: SBP > 160 Last Admin: 06/05/18 13:30 Dose: 10 mg Sodium Chloride (Ns Inj) 1,000 mls @ 84 mls/hr IV.CONT .[id number] [facility] Last Infusion: 06/07/18 05:54 Dose: 84 mls/hr Nicardipine HCl 25 mg/ Sodium (Chloride) 250 mls @ 50 mls/hr IV.CONT TITRATE PRN; Protocol PRN Reason: Per Protocol Last Titration: 06/05/18 13:39 Dose: 0 mg/hr, 0 mls/hr Magnesium Sulfate 4 gm/ Sodium (Chloride) 100 mls @ 50 mls/hr IV.SIG UNSCH PRN PRN Reason: For Magnesium 0.9 - 1.1 mg/dL Magnesium Sulfate 2 gm/ Sodium (Chloride) 100 mls @ 50 mls/hr IV.SIG UNSCH PRN PRN Reason: For Magnesium 1.2 - 1.6 mg/dL Potassium Chloride (Kcl 40 Meq Premix Inj) 40 meq in 100 mls @ 25 mls/hr IV.SIG Q2H PRN PRN Reason: For Potassium 2.8 - 3.2 mEq/L Potassium Chloride (Kcl 20 Meq Premix Inj) 20 meq in 100 mls @ 50 mls/hr IV.SIG Q2H PRN PRN Reason: For Potassium 3.3 - 3.5 mEq/L Last Admin: 06/06/18 23:53 Dose: 50 mls/hr Potassium Chloride (Kcl 40 Meq Premix Inj) 40 meq in 100 mls @ 25 mls/hr IV.SIG UNSCH PRN PRN Reason: For Potassium 3.3 - 3.5 mEq/L Potassium Chloride (Kcl 20 Meq Premix Inj) 20 meq in 100 mls @ 50 mls/hr IV.SIG Q2H PRN PRN Reason: For Potassium 2.8 - 3.2 mEq/L Last Infusion: 06/06/18 13:15 Dose: Infused Potassium Phosphate 30 mmol/ (Sodium Chloride) 260 mls @ 42 mls/hr IV.SIG UNSCH PRN PRN Reason: SEE LABEL COMMENTS Sodium Phosphate 30 mmol/ (Sodium Chloride) 260 mls @ 42 mls/hr IV.SIG UNSCH PRN PRN Reason: For Phosphorus < 2.5 mg/dL Dexmedetomidine HCl 200 mcg/ (Sodium Chloride) 50 mls @ 2.79 mls/hr IV.CONT TITRATE PRN; Protocol PRN Reason: Per Protocol Last Titration: 06/07/18 08:10 Dose: 0 mcg/kg/hr, 0 mls/hr Fosphenytoin Sodium 100 mgpe/ (Sodium Chloride) 52 mls @ 208 mls/hr IV.SIG Q8HR [facility] Last Infusion: 06/07/18 05:14 Dose: Infused Labetalol HCl (Trandate Inj) 10 mg IV.PUSH Q4H PRN PRN Reason: Sbp>140, Dbp>90 Last Admin: 06/05/18 03:14 Dose: 10 mg Labetalol HCl (Trandate Inj) 20 mg IV.PUSH Q1H PRN PRN Reason: SBP > 170 Lactulose (Lactulose Liq) 30 ml PO DAILY PRN PRN Reason: SEVERE CONSITIPATION Lisinopril (Prinivil) 40 mg PO DAILY [facility] Last Admin: 06/06/18 08:47 Dose: Not Given Lorazepam (Ativan Inj) 1 mg IV.PUSH Q10M PRN PRN Reason: SEIZURES Magnesium Oxide (Mag-Ox) 800 mg PO UNSCH PRN PRN Reason: For Magnesium 1.2 - 1.6 mg/dL Metoprolol Tartrate (Lopressor) 50 mg PO BID [facility] Last Admin: 06/06/18 21:14 Dose: 50 mg Morphine Sulfate (Morphine Inj) 2 mg IV.PUSH Q30M PRN PRN Reason: SEVERE ANXIETY OR AGITATION Last Admin: 06/06/18 05:20 Dose: 2 mg Pantoprazole Sodium (Protonix Inj) 40 mg IV.PUSH DAILY [facility] Last Admin: 06/06/18 11:26 Dose: 40 mg Potassium Chloride (Kcl Liq) 40 meq PO UNSCH PRN PRN Reason: Potassium level 3.3-3.5 mEq/L Last Admin: 06/02/18 06:38 Dose: 40 meq Potassium Chloride (Kcl Liq) 40 meq PO UNSCH PRN PRN Reason: Potassium level 3.3-3.5 mEq/L Potassium Phosphate (K-Phos Original) 2,000 mg PO Q4H PRN PRN Reason: Phosphorus Less Than 2.5 mg/dL Potassium Phosphate (K-Phos Original) 2,000 mg PO UNSCH PRN PRN Reason: SEE LABEL COMMENTS Pravastatin Sodium (Pravachol) 40 mg PO DAILY [facility] Last Admin: 06/06/18 08:52 Dose: Not Given Senna/Docusate Sodium (Kate-Colace) 1 tab PO BID [facility] Last Admin: 06/06/18 21:14 Dose: 1 tab Sennosides (Senokot) 17.2 mg PO Q12H PRN PRN Reason: Moderate Constipation Sodium Chloride (Ns Flush) 2 ml IV.FLUSH PRN PRN PRN Reason: FLUSH AFTER USING IV ACCESS Sodium Chloride (Ns Flush) 2 ml IV.FLUSH BID [facility] Last Admin: 06/06/18 21:15 Dose: Not Given Allergies/Adverse Reactions: Allergies Allergy/AdvReac Type Severity Reaction Status Date / Time No Known Allergies Allergy Verified 05/29/18 15:32 Physical Exam Vital signs: Vital Signs 06/06/18 09:00 06/06/18 09:33 06/06/18 10:00 Temperature Pulse Rate 68 67 78 Respiratory Rate 16 16 16 Blood Pressure 120/57 L Pulse Oximetry 99 100 95 06/06/18 10:03 06/06/18 10:12 06/06/18 11:01 Temperature Pulse Rate 67 61 Respiratory Rate 16 16 Blood Pressure 86/48 L 114/53 L 107/53 L Pulse Oximetry 98 100 06/06/18 11:17 06/06/18 11:18 06/06/18 11:31 Temperature Pulse Rate 87 78 Respiratory Rate 16 16 16 Blood Pressure 112/54 L Pulse Oximetry 100 100 06/06/18 12:00 06/06/18 12:01 06/06/18 13:01 Temperature Pulse Rate 65 90 Respiratory Rate 16 16 Blood Pressure 100/47 L 152/64 H Pulse Oximetry 100 97 06/06/18 14:00 06/06/18 14:01 06/06/18 15:54 Temperature Pulse Rate 88 90 Respiratory Rate 17 Blood Pressure 135/62 Pulse Oximetry 97 100 06/06/18 16:00 06/06/18 16:03 06/06/18 16:22 Temperature 98.8 F Pulse Rate 67 66 Respiratory Rate 16 5 L 11 L Blood Pressure 107/53 L 107/53 L Pulse Oximetry 98 99 95 06/06/18 16:23 06/06/18 17:00 06/06/18 17:58 Temperature Pulse Rate 84 81 86 Respiratory Rate 18 20 Blood Pressure 140/61 Pulse Oximetry 99 06/06/18 18:00 06/06/18 18:03 06/06/18 18:33 Temperature Pulse Rate 89 87 92 H Respiratory Rate 20 20 21 Blood Pressure 131/60 131/60 144/63 H Pulse Oximetry 97 97 98 06/06/18 19:00 06/06/18 19:03 06/06/18 19:33 Temperature 99.1 F Pulse Rate 91 H 89 81 Respiratory Rate 22 20 15 Blood Pressure 144/93 H 150/65 H 118/56 L Pulse Oximetry 97 91 L 92 L 06/06/18 20:00 06/06/18 20:03 06/06/18 20:04 Temperature Pulse Rate 107 H 99 H 91 H Respiratory Rate 32 H 21 25 H Blood Pressure 164/71 H Pulse Oximetry 96 95 06/06/18 20:06 06/06/18 20:33 06/06/18 21:00 Temperature Pulse Rate 77 98 H Respiratory Rate 25 H 16 22 Blood Pressure 133/60 Pulse Oximetry 95 97 97 06/06/18 21:03 06/06/18 21:33 06/06/18 22:00 Temperature Pulse Rate 99 H 78 96 H Respiratory Rate 22 15 25 H Blood Pressure 180/73 H 121/58 L Pulse Oximetry 96 98 96 06/06/18 22:03 06/06/18 22:33 06/06/18 22:35 Temperature Pulse Rate 100 H 100 H 104 H Respiratory Rate 25 H 28 H 29 H Blood Pressure 161/72 H 177/74 H 156/70 H Pulse Oximetry 96 96 95 06/06/18 23:00 06/06/18 23:03 06/06/18 23:33 Temperature Pulse Rate 101 H 101 H 102 H Respiratory Rate 26 H 29 H 29 H Blood Pressure 173/76 H 176/76 H Pulse Oximetry 98 97 95 06/06/18 23:38 06/06/18 23:41 06/07/18 00:00 Temperature Pulse Rate 100 H 101 H 96 H Respiratory Rate 20 28 H 23 Blood Pressure 142/66 H Pulse Oximetry 96 95 06/07/18 00:03 06/07/18 00:33 06/07/18 01:00 Temperature Pulse Rate 94 H 98 H 103 H Respiratory Rate 21 21 22 Blood Pressure 164/72 H 162/70 H Pulse Oximetry 95 95 95 06/07/18 01:03 06/07/18 01:33 06/07/18 02:00 Temperature Pulse Rate 101 H 96 H 96 H Respiratory Rate 22 18 20 Blood Pressure 163/70 H 167/71 H Pulse Oximetry 95 96 96 06/07/18 02:03 06/07/18 02:33 06/07/18 03:00 Temperature Pulse Rate 98 H 93 H 87 Respiratory Rate 20 17 16 Blood Pressure 151/66 H 158/70 H Pulse Oximetry 95 96 96 06/07/18 03:03 06/07/18 03:33 06/07/18 03:39 Temperature Pulse Rate 91 H 90 Respiratory Rate 17 19 20 Blood Pressure 144/63 H 155/69 H Pulse Oximetry 96 96 96 06/07/18 03:43 06/07/18 04:00 06/07/18 04:03 Temperature 98.7 F Pulse Rate 96 H 96 H 91 H Respiratory Rate 19 19 18 Blood Pressure 154/80 H 160/69 H Pulse Oximetry 96 93 L 06/07/18 04:33 06/07/18 05:00 06/07/18 05:03 Temperature Pulse Rate 91 H 91 H 93 H Respiratory Rate 19 18 19 Blood Pressure 153/64 H 154/66 H Pulse Oximetry 96 97 97 06/07/18 05:33 06/07/18 05:50 06/07/18 06:00 Temperature Pulse Rate 90 90 98 H Respiratory Rate 17 21 Blood Pressure 146/64 H Pulse Oximetry 98 96 06/07/18 06:03 06/07/18 06:33 06/07/18 07:00 Temperature Pulse Rate 97 H 92 H 92 H Respiratory Rate 22 19 17 Blood Pressure 158/67 H 164/69 H Pulse Oximetry 96 97 96 06/07/18 07:03 06/07/18 07:16 06/07/18 07:30 Temperature Pulse Rate 99 H 86 97 H Respiratory Rate 20 17 18 Blood Pressure 164/72 H 152/66 H 145/55 H Pulse Oximetry 96 95 96 06/07/18 07:45 06/07/18 08:00 Temperature 99.8 F H Pulse Rate 100 H 85 Respiratory Rate 20 17 Blood Pressure 168/74 H 152/67 H Pulse Oximetry 96 95 Intake & Output 06/06/18 06/07/18 06/07/18 18:59 06:59 18:59 Intake Total 2300 / 2300 1050 / 1050 Output Total 366 / 366 620 / 620 Balance 1934 / 1934 430 / 430 Weight 62.6 kg Intake: IV 2300 / 2300 1050 / 1050 Precedex Inj 200 MCG In NS Inj 50 / 50 50 / 50 48 ML @ 0.2 MCG/KG/HR 2.79 mls/ hr IV.CONT TITRATE PRN Rx#: [id number] NS Inj 1,000 ML @ 84 mls/hr IV. 798 / 798 796 / 796 CONT .[id number] [facility] Rx#:[id number] Cerebyx Inj 100 MGPE In NS Inj 52 / 52 104 / 104 50 ML @ 208 mls/hr IV.SIG Q8HR [facility] Rx#:[id number] KCl 20 mEq Premix Inj 20 meq In 400 / 400 100 / 100 100 ml @ 50 mls/hr IV.SIG Q2H PRN Rx#:[id number] NS Inj 1,000 ML @ Wide Open IV. 1000 / 1000 SIG BOLUS ONE Rx#:[id number] Output: Urine Amount (Catheter) 350 / 350 600 / 600 Indwelling Urethral Catheter 350 / 350 600 / 600 Wound Drainage # 1 Left Head Other: Date of Last Bowel Movement 06/02/18 06/02/18 # Bowel Movements 0 Narrative: intubated pupil = sedated - Urinary Catheter Management Female External Cath placed during this visit: no Reason for continuing: Not indwelling catheter Indwelling Urethral Catheter Cath placed during this visit: yes Reason for continuing: Hourly intake/output Insertion date: 06/05/18 Insertion time: 08:30 Objective Laboratory Results - last 24 hr 06/06/18 06/07/18 06/07/18 19:05 04:08 04:08 WBC 13.3 H RBC 3.03 L Hgb 10.1 L Hct 30.5 L MCV 100.6 H MCH 33.3 MCHC 33.1 RDW 14.5 Plt Count 180 MPV 7.4 Neut % (Auto) 85.9 H Lymph % (Auto) 6.1 L Blount % (Auto) 7.8 Eos % (Auto) 0.0 Baso % (Auto) 0.2 Neut # (Auto) 11.4 H Lymph # (Auto) 0.8 L Blount # (Auto) 1.0 H Eos # (Auto) 0.0 Baso # (Auto) 0.0 WBC Differential . Differential Comment Auto diff final Sodium 142 Potassium 3.5 3.4 L Chloride 109 H Carbon Dioxide 21.9 Anion Gap 11 BUN 14 Creatinine 0.31 L Estimated GFR Greater than 89 Random Glucose 111 H Calcium 8.3 L D Phosphorus 1.8 L Magnesium 1.7 Phenytoin 9.6 L Microbiology 06/01/18 10:21 Aerobic Blood Culture - Final Blood - Peripheral No growth in 5 days Anaerobic Blood Culture - Final No growth in 5 days 06/01/18 10:16 Aerobic Blood Culture - Final Blood - Peripheral No growth in 5 days Anaerobic Blood Culture - Final No growth in 5 days Review/Management - Review/Management Plan: imp improved MS nusu on case i dw dr langston the medulla abn and he is aware fu eeg -- 06/01/18 eeg neg stable neuro vent size looks stable on cta check platelet plavix fxt for or monday - 06/07/18 sp sz post op post crani eeg breech dil 9.7 free dil 17 so good level mets on chest ct? path pend medullary area is a flow void not mass i agree on film review
--- NOTE | 2018-06-07 08:27 | P.PNCC ---
Subjective Subjective Remarks/Hospital Course: Patient is a 78-year-old female with past medical history significant for hypertension, peripheral arterial disease, history of vascular intervention/ stenting, arthritis who presented to the [facility] with mostly nonspecific complaints of memory loss and hallucinations for 1 week and worsening tremors of the right arm. Further workup in the emergency department showed subacute intraventricular hemorrhage into the left lateral ventricle and a focal thrombus that may be obstructing foramina of [place]. There was enlargement of the left lateral ventricle compared to the prior MRI. Also trace blood in the occipital horn of left lateral ventricle. With evidence of intraventricular hemorrhage patient was transferred emergently to [facility] for neurosurgery consult. I evaluated the patient after arrival to the ICU. Patient is profoundly hypertensive systolic blood pressure 190-200. IV labetalol 20 mg IV push given followed by Cardene infusion started. On exam patient did not appear to be in distress. No definite focal deficit however patient is oriented only to person. Reviewed CT scan with neurosurgery Dr. Palacios. On his review CT shows 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 hemorrhagic mass at foramen of Bell with asymmetric left sided ventricular dilatation. Stat MRI of the brain with and without contrast ordered. Started on Cardene infusion with target systolic blood pressure less than 140 05/30/18: MRI brain showed 2.3 x 1.7 cm mass within the body of the left lateral ventricle measuring 2.3 x 1.7 cm left lateral ventricle is prominent may be related to production of CSF from this mass. 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 Additional mass in the cerebellopontine angle on the left compressing upon the brainstem measuring 1.8 x 1.4 cm. Slightly more agitated and confused today. Partly secondary to mass partly could be alcohol withdrawal. Placed on as needed Haldol 05/31: Patient remains sedated received Ativan a few hours before. Currently for that reason Precedex is being held. Wakes up follows some commands. Oriented to person only. Plan for craniotomy and resection of intraventricular mass scheduled tentatively for Monday. Ct chest: 1.6 x 1.1 cm spiculated RUL nodule concerning for metastasis or primary lung malignancy. 1.1 x 1.4 cm soft tissue density inferior lateral margin of the right breast implant ?focal disruption vs breast mass. CT abdomen pelvis: 1.3 cm left adrenal mass concerning for metastatic disease given findings of brain and lung mass. 1.6 cm indeterminate low-density lesion in the posterior right lobe of the liver with numerous additional subcentimeter hypodense lesions which are too small to fully characterize. Metastatic disease cannot be entirely excluded, possibly cysts. 06/01: Remains confused slightly agitated remains on Precedex. CT angiogram yesterday of the brain showed previously demonstrated intraventricular mass however no cerebellopontine angle mass. WBC count elevated to 19.1 no fever. Will check UA-previously ordered UA had not been done. Check blood cultures, chest x-ray is clear. Continue to hold Plavix 06/02: Plan is for resection of brain mass on Monday. Patient continues breathing comfortably. 06/03: Ready for OR. Labs are in order. INR 1.1. Plavix effect noted on . 06/04: Coagulation profile normal. Patient scheduled for surgery tomorrow. No new complaints. 06/05: Patient seen in PACU shortly after surgery. Brief generalized seizure terminated with Ativan 1 mg. Patient loaded with Cerebyx 1 g. Neurologic exam nonfocal at this time. Pupils pinpoint. Required reintubation due to somnolence. 06/06: T-max 100.8. Currently afebrile. Patient arousable on the ventilator. Hypotensive requiring 1 L bolus normal saline. MRI brain pending. EEG ongoing. Subjective 06/07: T-max 100.6. Currently 99.8. MRI brain showed postsurgical change with no increased hemorrhage noted. Replacing potassium, phosphorus and magnesium currently. Dexmedetomidine drip is currently off. Noted some breech with EEG yesterday. Dilantin level therapeutic. Objective Vital Signs / I&O: Vital Signs 06/06/18 09:00 06/06/18 09:33 06/06/18 10:00 Temperature Pulse Rate 68 67 78 Respiratory Rate 16 16 16 Blood Pressure 120/57 L Pulse Oximetry 99 100 95 06/06/18 10:03 06/06/18 10:12 06/06/18 11:01 Temperature Pulse Rate 67 61 Respiratory Rate 16 16 Blood Pressure 86/48 L 114/53 L 107/53 L Pulse Oximetry 98 100 06/06/18 11:17 06/06/18 11:18 06/06/18 11:31 Temperature Pulse Rate 87 78 Respiratory Rate 16 16 16 Blood Pressure 112/54 L Pulse Oximetry 100 100 06/06/18 12:00 06/06/18 12:01 06/06/18 13:01 Temperature Pulse Rate 65 90 Respiratory Rate 16 16 Blood Pressure 100/47 L 152/64 H Pulse Oximetry 100 97 06/06/18 14:00 06/06/18 14:01 06/06/18 15:54 Temperature Pulse Rate 88 90 Respiratory Rate 17 Blood Pressure 135/62 Pulse Oximetry 97 100 06/06/18 16:00 06/06/18 16:03 06/06/18 16:22 Temperature 98.8 F Pulse Rate 67 66 Respiratory Rate 16 5 L 11 L Blood Pressure 107/53 L 107/53 L Pulse Oximetry 98 99 95 06/06/18 16:23 06/06/18 17:00 06/06/18 17:58 Temperature Pulse Rate 84 81 86 Respiratory Rate 18 20 Blood Pressure 140/61 Pulse Oximetry 99 06/06/18 18:00 06/06/18 18:03 06/06/18 18:33 Temperature Pulse Rate 89 87 92 H Respiratory Rate 20 20 21 Blood Pressure 131/60 131/60 144/63 H Pulse Oximetry 97 97 98 06/06/18 19:00 06/06/18 19:03 06/06/18 19:33 Temperature 99.1 F Pulse Rate 91 H 89 81 Respiratory Rate 22 20 15 Blood Pressure 144/93 H 150/65 H 118/56 L Pulse Oximetry 97 91 L 92 L 06/06/18 20:00 06/06/18 20:03 06/06/18 20:04 Temperature Pulse Rate 107 H 99 H 91 H Respiratory Rate 32 H 21 25 H Blood Pressure 164/71 H Pulse Oximetry 96 95 06/06/18 20:06 06/06/18 20:33 06/06/18 21:00 Temperature Pulse Rate 77 98 H Respiratory Rate 25 H 16 22 Blood Pressure 133/60 Pulse Oximetry 95 97 97 06/06/18 21:03 06/06/18 21:33 06/06/18 22:00 Temperature Pulse Rate 99 H 78 96 H Respiratory Rate 22 15 25 H Blood Pressure 180/73 H 121/58 L Pulse Oximetry 96 98 96 06/06/18 22:03 06/06/18 22:33 06/06/18 22:35 Temperature Pulse Rate 100 H 100 H 104 H Respiratory Rate 25 H 28 H 29 H Blood Pressure 161/72 H 177/74 H 156/70 H Pulse Oximetry 96 96 95 06/06/18 23:00 06/06/18 23:03 06/06/18 23:33 Temperature Pulse Rate 101 H 101 H 102 H Respiratory Rate 26 H 29 H 29 H Blood Pressure 173/76 H 176/76 H Pulse Oximetry 98 97 95 06/06/18 23:38 06/06/18 23:41 06/07/18 00:00 Temperature Pulse Rate 100 H 101 H 96 H Respiratory Rate 20 28 H 23 Blood Pressure 142/66 H Pulse Oximetry 96 95 06/07/18 00:03 06/07/18 00:33 06/07/18 01:00 Temperature Pulse Rate 94 H 98 H 103 H Respiratory Rate 21 21 22 Blood Pressure 164/72 H 162/70 H Pulse Oximetry 95 95 95 06/07/18 01:03 06/07/18 01:33 06/07/18 02:00 Temperature Pulse Rate 101 H 96 H 96 H Respiratory Rate 22 18 20 Blood Pressure 163/70 H 167/71 H Pulse Oximetry 95 96 96 06/07/18 02:03 06/07/18 02:33 06/07/18 03:00 Temperature Pulse Rate 98 H 93 H 87 Respiratory Rate 20 17 16 Blood Pressure 151/66 H 158/70 H Pulse Oximetry 95 96 96 06/07/18 03:03 06/07/18 03:33 06/07/18 03:39 Temperature Pulse Rate 91 H 90 Respiratory Rate 17 19 20 Blood Pressure 144/63 H 155/69 H Pulse Oximetry 96 96 96 06/07/18 03:43 06/07/18 04:00 06/07/18 04:03 Temperature 98.7 F Pulse Rate 96 H 96 H 91 H Respiratory Rate 19 19 18 Blood Pressure 154/80 H 160/69 H Pulse Oximetry 96 93 L 06/07/18 04:33 06/07/18 05:00 06/07/18 05:03 Temperature Pulse Rate 91 H 91 H 93 H Respiratory Rate 19 18 19 Blood Pressure 153/64 H 154/66 H Pulse Oximetry 96 97 97 06/07/18 05:33 06/07/18 05:50 06/07/18 06:00 Temperature Pulse Rate 90 90 98 H Respiratory Rate 17 21 Blood Pressure 146/64 H Pulse Oximetry 98 96 06/07/18 06:03 01/24/19 06:33 06/07/18 07:00 Temperature Pulse Rate 97 H 92 H 92 H Respiratory Rate 22 19 17 Blood Pressure 158/67 H 164/69 H Pulse Oximetry 96 97 96 06/07/18 07:03 06/07/18 07:16 06/07/18 07:30 Temperature Pulse Rate 99 H 86 97 H Respiratory Rate 20 17 18 Blood Pressure 164/72 H 152/66 H 145/55 H Pulse Oximetry 96 95 96 06/07/18 07:45 06/07/18 08:00 Temperature 99.8 F H Pulse Rate 100 H 85 Respiratory Rate 20 17 Blood Pressure 168/74 H 152/67 H Pulse Oximetry 96 95 Intake & Output 06/06/18 06/07/18 06/07/18 18:59 06:59 18:59 Intake Total 2300 / 2300 1050 / 1050 Output Total 366 / 366 620 / 620 Balance 1934 / 1934 430 / 430 Weight 62.6 kg Intake: IV 2300 / 2300 1050 / 1050 Precedex Inj 200 MCG In NS Inj 50 / 50 50 / 50 48 ML @ 0.2 MCG/KG/HR 2.79 mls/ hr IV.CONT TITRATE PRN Rx#: [id number] NS Inj 1,000 ML @ 84 mls/hr IV. 798 / 798 796 / 796 CONT .[id number] [facility] Rx#:[id number] Cerebyx Inj 100 MGPE In NS Inj 52 / 52 104 / 104 50 ML @ 208 mls/hr IV.SIG Q8HR [facility] Rx#:[id number] KCl 20 mEq Premix Inj 20 meq In 400 / 400 100 / 100 100 ml @ 50 mls/hr IV.SIG Q2H PRN Rx#:[id number] NS Inj 1,000 ML @ Wide Open IV. 1000 / 1000 SIG BOLUS ONE Rx#:[id number] Output: Urine Amount (Catheter) 350 / 350 600 / 600 Indwelling Urethral Catheter 350 / 350 600 / 600 Wound Drainage # 1 Left Head Other: Date of Last Bowel Movement 06/02/18 06/02/18 # Bowel Movements 0 Result Diagrams: 06/07/18 04:08 06/07/18 04:08 Other Results: Microbiology 06/01/18 10:21 Blood - Peripheral Aerobic Blood Culture - Final No growth in 5 days 06/01/18 10:21 Blood - Peripheral Anaerobic Blood Culture - Final No growth in 5 days 06/01/18 10:16 Blood - Peripheral Aerobic Blood Culture - Final No growth in 5 days 06/01/18 10:16 Blood - Peripheral Anaerobic Blood Culture - Final No growth in 5 days Imaging: Chest X-Ray 05/29/18 15:37 CONCLUSION: Chronic interstitial changes. No acute abnormality. Head MRI 05/29/18 15:41 CONCLUSION: 1. There is a 2.3 x 1.7 cm mass within the body of the left lateral ventricle measuring 2.3 x 1.7 cm. The left lateral ventricle is prominent may be related to production of CSF from this mass. 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 This mass may have hemorrhaged causing the blood layering in the lateral ventricles. 2. There is also a mass in the cerebellopontine angle on the left compressing upon the brainstem measuring 1.8 x 1.4 cm. 3. Chronic ischemic small vessel vasculopathy. Abdomen/Pelvis CT 05/30/18 00:00 CONCLUSION: 1. 1.3 cm left adrenal mass. Findings are concerning for metastatic disease given findings of brain metastasis and lung mass. 2. 1.6 cm indeterminate low-density lesion in the posterior right lobe of the liver with numerous additional subcentimeter hypodense lesions which are too small to fully characterize. Although metastatic disease cannot be entirely excluded, suspect these reflect cysts. 3. Colonic diverticulosis without evidence for diverticulitis. 4. Otherwise, no additional definitive evidence for metastatic disease to the abdomen or pelvis. Chest CT 05/30/18 00:00 CONCLUSION: 1. 1.6 x 1.1 cm spiculated right upper lobe lung nodule concerning for metastasis or primary lung malignancy. 2. Additional 3 mm subpleural nodules in the superior segment of the left lower lobe are nonspecific. 3. Mild atelectasis/scarring at the right lung base with more prominent airspace consolidation at the left lung base. 4. 1.1 x 1.4 cm soft tissue density abnormality emanating from the inferior lateral margin of the right breast implant which may reflect a focal disruption. However, cannot exclude an adjacent breast mass. Correlation with patient's history and prior breast imaging is recommended. Head CTA 05/31/18 00:00 CONCLUSION: 1. There is no evidence for intracranial aneurysm or stenosis. 2. Intraventricular mass as previously described. 3. There is no evidence for mass at the cerebellopontine angle. The finding on the recent MRI was likely related to pulsation artifact in this region. . Chest X-Ray 06/01/18 00:00 CONCLUSION: No acute cardiopulmonary disease identified. Chest X-Ray 06/05/18 00:00 CONCLUSION: 1. Right upper lobe nodule. 2. Bibasilar infiltrates. 3. Adequate placement of endotracheal tube. Head MRI 06/06/18 00:00 CONCLUSION: 1. 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 2. Intraventricular blood as described. Left lateral ventricle is slightly smaller. 3. Air and small amount of acute blood in the subdural spaces of both convexities. There is also small subdural blood in between the leaves of the falx. 4. Roughly 5 mm of rightward midline shift, improved. Objective Remarks: GENERAL: This is a 78-year-old female currently orotracheally intubated SKIN: Warm and dry. HEAD: Atraumatic. Normocephalic. EYES: Pupils equal and round. About 2 mm bilaterally and reactive no scleral icterus. No injection or drainage. ENT: No nasal bleeding or discharge. Mucous membranes pink and moist. NECK: Trachea midline. No JVD. CARDIOVASCULAR: Regular rate and rhythm. S1, S2 no S 4. RESPIRATORY: No accessory muscle use. Clear to auscultation. Breath sounds equal bilaterally. GASTROINTESTINAL: Abdomen soft, non-tender, nondistended. Hepatic and splenic margins not palpable. MUSCULOSKELETAL: Extremities without clubbing, cyanosis, or edema. No obvious deformities. NEUROLOGICAL: Positive cough and gag pupils clinics. Arousable the ventilator moves all 4 extremities weakly but currently not following commands. Localizing.. GENERAL: SKIN: Warm and dry. HEAD: Atraumatic. Normocephalic. EYES: Pupils equal and round. No scleral icterus. No injection or drainage. ENT: No nasal bleeding or discharge. Mucous membranes pink and moist. NECK: Trachea midline. No JVD. CARDIOVASCULAR: Regular rate and rhythm. RESPIRATORY: No accessory muscle use. Clear to auscultation. Breath sounds equal bilaterally. GASTROINTESTINAL: Abdomen soft, non-tender, nondistended. Hepatic and splenic margins not palpable. MUSCULOSKELETAL: Extremities without clubbing, cyanosis, or edema. No obvious deformities. NEUROLOGICAL: Awake and alert. No obvious cranial nerve deficits. Motor grossly within normal limits. Five out of 5 muscle strength in the arms and legs. Normal speech. PSYCHIATRIC: Appropriate mood and affect; insight and judgment normal. Assessment and Plan - Problem List (1) Intraventricular hemorrhage, nontraumatic Code(s): I61.5 - Nontraumatic intracerebral hemorrhage, intraventricular Status: Acute (2) Hypertensive emergency Code(s): I16.1 - Hypertensive emergency Status: Acute (3) Metabolic encephalopathy Code(s): G93.41 - Metabolic encephalopathy Status: Acute (4) Altered mental status Code(s): R41.82 - Altered mental status, unspecified Status: Acute (5) History of peripheral arterial disease Code(s): Z86.79 - Personal history of other diseases of the circulatory system Status: Chronic (6) History of hypertension Code(s): Z86.79 - Personal history of other diseases of the circulatory system Status: Chronic (7) Cessation of tobacco use in previous 12 months Code(s): Z87.891 - Personal history of nicotine dependence Status: Chronic - Assessment and Plan Plan: NEURO/psych: 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 -Status post left craniotomy resection of tumor 06/0506/04/2018 (program will be held for 7 days prior to surgery) -Oncology consult, also CT chest abdomen pelvis -right upper lobe mass with probable adrenal metastases cannot rule out liver metastases -Tight blood pressure control with nicardipine e and IV labetalol as needed, and PO meds, see below -Keep systolic blood pressure less than 150 -Supplement multivitamin thiamine given daily alcohol use -Watch closely for alcohol withdrawal -Mild alcohol withdrawal contributing to agitation -Use expected for agitation, Haldol as needed -EEG originally negative for seizures -Repeat EEG 06/06 field possible left frontal breakthrough. Loaded with fosphenytoin 1 g.. Start on 100 mg 3 times daily recheck level in a.m was 9.2 with free level around 17. Continue per neurology. -MRA brain revealed left lateral ventricle resection, intervertebral hemorrhage slightly decreased. Small subdural hematoma. Postsurgical. Rightward shift 5 mm. RESP: Acute respiratory failure Previous tobacco use Right upper lobe speak with a mass -PRVC ventilation with ventilator bundle/head of bed at 30 degrees -Albuterol/ipratropium aerosols every 4 hours scheduled and as needed albuterol aerosols every 2 hours as needed -Pulmonology consulted for right upper lobe mass concerning for primary malignancy, with adrenal mass -Pulmonary Dr. Evans suggesting CT-guided biopsy and PET scan once clinically more stable and neuro surgery completed -Reintubated and ISC after PACU 06/05. -Spontaneous breathing trials today with attempt extubate CV: Hypertensive emergency History of hypertension Peripheral arterial disease -Normal saline IV fluids 84 mL/h -Cardene infusion and, IV labetalol as needed for systolic blood pressure less than 150 -Continue home enalapril 40 mg daily and amlodipine 5 mg daily, continue pravastatin 40 mg daily. Added metoprolol treat 50 mg twice daily -Continue holding clopidogrel pending craniotomy -Decrease platelet activity noted on 06/01 -INR, PT, PTT normal GI: Left adrenal mass 1.3 x 1.2 cm Colonic diverticulosis Right liver mass versus cyst -Currently n.p.o. status, metoprolol for GI prophylax. Dexatrim/senna 1 tablet twice daily for bowel regimen -Start tube feedings today. if not extubated. : -Monitor renal function closely. ID: -No indication for antibiotics at this time status post cefazolin HEME: Leukocytosis Macrocytic anemia -Oncology. 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 Kapadia FEN/ENDO: Hypokalemia -Electrolyte replacement per protocol PROPH: -Bilateral lower extremity SCDs. Avoid chemical DVT prophylaxis until after surgery. LINES: -Utilize peripheral IVs, central line if needed Overall impression: Status post resection left intraventricular mass. Has required reintubation and mechanical ventilation. Brief seizure terminated after 1 mg Ativan. Unable to wean from ventilator now. Remains critically ill. Critical care time 35 minutes aside from procedures. (4) Altered mental status Qualifiers: Altered mental status type: unspecified Qualified Code(s): R41.82 - Altered mental status, unspecified
[2018-06-07] MEDS ORDERED: Potassium Chloride 25 MEQ Effervescent Tablet PO ONE (08:30)
[2018-06-07] MEDS: Metoprolol Tartrate 50 MG Tablet PO SCH ×2 (08:34→20:01)
[2018-06-07] MEDS: Lisinopril 20 MG Tablet PO SCH (08:34)
[2018-06-07] MEDS: Senna/Docusate Sodium 8.6/50 MG Tablet PO SCH ×2 (08:34→20:01)
[2018-06-07] MEDS: amLODIPine 5 MG Tablet PO SCH (08:34)
[2018-06-07] MEDS: Enoxaparin Inj 40 MG/0.4 ML Syringe SQ SCH (08:35)
[2018-06-07] MEDS: Pantoprazole Inj 40 MG Vial IV.PUSH SCH (08:36)
[2018-06-07] MEDS: Budesonide-Formoterol 160/4.5 MCG 6 GM Inhaler INH SCH ×2 (08:37→20:05)
[2018-06-07] MEDS ORDERED: Magnesium Sulfate Inj 2 GM in Sodium Chlor 0.9% Inj 96 ML IV.SIG ONE (09:00)
[2018-06-07] MEDS ORDERED: Potassium Phosphate Inj 30 MMOL in Sodium Chlor 0.9% Inj 250 ML IV.SIG ONE (09:00)
[2018-06-07] MEDS: Clevidipine Inj 25 MG/50 ML VIAL IV.CONT PRN ×4 (10:12→20:59)
--- NOTE | 2018-06-07 12:56 | P.PNNS ---
Subjective Interval history: patient intubated and sedated <Samanta Banda - Last Filed: 06/07/18 12:44> Physical Exam Vital signs: Vital Signs 06/06/18 13:01 06/06/18 14:00 06/06/18 14:01 Temperature Pulse Rate 90 88 90 Respiratory Rate 16 17 Blood Pressure 152/64 H 135/62 Pulse Oximetry 97 97 06/06/18 15:54 06/06/18 16:00 06/06/18 16:03 Temperature 98.8 F Pulse Rate 67 66 Respiratory Rate 16 5 L Blood Pressure 107/53 L 107/53 L Pulse Oximetry 100 98 99 06/06/18 16:22 06/06/18 16:23 06/06/18 17:00 Temperature Pulse Rate 84 81 Respiratory Rate 11 L 18 20 Blood Pressure 140/61 Pulse Oximetry 95 99 06/06/18 17:58 06/06/18 18:00 06/06/18 18:03 Temperature Pulse Rate 86 89 87 Respiratory Rate 20 20 Blood Pressure 131/60 131/60 Pulse Oximetry 97 97 06/06/18 18:33 06/06/18 19:00 06/06/18 19:03 Temperature 99.1 F Pulse Rate 92 H 91 H 89 Respiratory Rate 21 22 20 Blood Pressure 144/63 H 144/93 H 150/65 H Pulse Oximetry 98 97 91 L 06/06/18 19:33 06/06/18 20:00 06/06/18 20:03 Temperature Pulse Rate 81 107 H 99 H Respiratory Rate 15 32 H 21 Blood Pressure 118/56 L 164/71 H Pulse Oximetry 92 L 96 95 06/06/18 20:04 06/06/18 20:06 06/06/18 20:33 Temperature Pulse Rate 91 H 77 Respiratory Rate 25 H 25 H 16 Blood Pressure 133/60 Pulse Oximetry 95 97 06/06/18 21:00 06/06/18 21:03 06/06/18 21:33 Temperature Pulse Rate 98 H 99 H 78 Respiratory Rate 22 22 15 Blood Pressure 180/73 H 121/58 L Pulse Oximetry 97 96 98 06/06/18 22:00 06/06/18 22:03 06/06/18 22:33 Temperature Pulse Rate 96 H 100 H 100 H Respiratory Rate 25 H 25 H 28 H Blood Pressure 161/72 H 177/74 H Pulse Oximetry 96 96 96 06/06/18 22:35 06/06/18 23:00 06/06/18 23:03 Temperature Pulse Rate 104 H 101 H 101 H Respiratory Rate 29 H 26 H 29 H Blood Pressure 156/70 H 173/76 H Pulse Oximetry 95 98 97 06/06/18 23:33 06/06/18 23:38 06/06/18 23:41 Temperature Pulse Rate 102 H 100 H 101 H Respiratory Rate 29 H 20 28 H Blood Pressure 176/76 H 142/66 H Pulse Oximetry 95 96 06/07/18 00:00 06/07/18 00:03 06/07/18 00:33 Temperature Pulse Rate 96 H 94 H 98 H Respiratory Rate 23 21 21 Blood Pressure 164/72 H 162/70 H Pulse Oximetry 95 95 95 06/07/18 01:00 06/07/18 01:03 06/07/18 01:33 Temperature Pulse Rate 103 H 101 H 96 H Respiratory Rate 22 22 18 Blood Pressure 163/70 H 167/71 H Pulse Oximetry 95 95 96 06/07/18 02:00 06/07/18 02:03 06/07/18 02:33 Temperature Pulse Rate 96 H 98 H 93 H Respiratory Rate 20 20 17 Blood Pressure 151/66 H 158/70 H Pulse Oximetry 96 95 96 06/07/18 03:00 06/07/18 03:03 06/07/18 03:33 Temperature Pulse Rate 87 91 H 90 Respiratory Rate 16 17 19 Blood Pressure 144/63 H 155/69 H Pulse Oximetry 96 96 96 06/07/18 03:39 06/07/18 03:43 06/07/18 04:00 Temperature 98.7 F Pulse Rate 96 H 96 H Respiratory Rate 20 19 19 Blood Pressure 154/80 H Pulse Oximetry 96 96 06/07/18 04:03 06/07/18 04:33 06/07/18 05:00 Temperature Pulse Rate 91 H 91 H 91 H Respiratory Rate 18 19 18 Blood Pressure 160/69 H 153/64 H Pulse Oximetry 93 L 96 97 06/07/18 05:03 06/07/18 05:33 06/07/18 05:50 Temperature Pulse Rate 93 H 90 90 Respiratory Rate 19 17 Blood Pressure 154/66 H 146/64 H Pulse Oximetry 97 98 06/07/18 06:00 06/07/18 06:03 06/07/18 06:33 Temperature Pulse Rate 98 H 97 H 92 H Respiratory Rate 21 22 19 Blood Pressure 158/67 H 164/69 H Pulse Oximetry 96 96 97 06/07/18 07:00 06/07/18 07:03 06/07/18 07:16 Temperature Pulse Rate 92 H 99 H 86 Respiratory Rate 17 20 17 Blood Pressure 164/72 H 152/66 H Pulse Oximetry 96 96 95 06/07/18 07:30 06/07/18 07:45 06/07/18 08:00 Temperature 99.8 F H Pulse Rate 97 H 100 H 100 H Respiratory Rate 18 20 17 Blood Pressure 145/55 H 168/74 H 152/67 H Pulse Oximetry 96 96 95 06/07/18 08:15 06/07/18 08:30 06/07/18 08:45 Temperature Pulse Rate 81 89 88 Respiratory Rate 17 18 17 Blood Pressure 150/66 H 171/73 H 144/63 H Pulse Oximetry 95 96 95 06/07/18 09:00 06/07/18 09:01 06/07/18 09:02 Temperature Pulse Rate 89 95 H 77 Respiratory Rate 24 22 28 H Blood Pressure 199/83 H 190/77 H Pulse Oximetry 95 94 L 94 L 06/07/18 09:05 06/07/18 09:14 06/07/18 09:30 Temperature Pulse Rate 87 93 H 84 Respiratory Rate 24 22 17 Blood Pressure 180/77 H 175/75 H 190/72 H Pulse Oximetry 95 98 98 06/07/18 09:45 06/07/18 10:00 06/07/18 10:15 Temperature Pulse Rate 86 90 90 Respiratory Rate 14 22 22 Blood Pressure 146/67 H 170/73 H 151/67 H Pulse Oximetry 99 97 98 06/07/18 10:30 06/07/18 10:46 06/07/18 11:00 Temperature Pulse Rate 98 H 90 95 H Respiratory Rate 22 18 27 H Blood Pressure 170/80 H 169/72 H 169/74 H Pulse Oximetry 97 97 97 06/07/18 11:17 06/07/18 11:30 06/07/18 11:47 Temperature Pulse Rate 95 H 107 H 104 H Respiratory Rate 19 24 24 Blood Pressure 182/74 H 155/69 H 169/73 H Pulse Oximetry 96 96 97 06/07/18 11:55 06/07/18 11:56 06/07/18 12:00 Temperature Pulse Rate 97 H 110 H Respiratory Rate 32 H 25 H 24 Blood Pressure 185/78 H Pulse Oximetry 96 99 06/07/18 12:12 Temperature Pulse Rate 111 H Respiratory Rate 24 Blood Pressure 158/69 H Pulse Oximetry 99 Intake & Output 06/06/18 06/07/18 06/07/18 18:59 06:59 18:59 Intake Total 2300 / 2300 1050 / 1050 200 / 200 Output Total 366 / 366 620 / 620 Balance 1934 / 1934 430 / 430 200 / 200 Weight 62.6 kg Intake: IV 2300 / 2300 1050 / 1050 200 / 200 Precedex Inj 200 MCG In NS Inj 50 / 50 50 / 50 48 ML @ 0.2 MCG/KG/HR 2.79 mls/ hr IV.CONT TITRATE PRN Rx#: [id number] NS Inj 1,000 ML @ 84 mls/hr IV. 798 / 798 796 / 796 CONT .[id number] COUNTS INCLUDE 234 BEDS AT [facility] Rx#:[id number] Cerebyx Inj 100 MGPE In NS Inj 52 / 52 104 / 104 50 ML @ 208 mls/hr IV.SIG Q8HR COUNTS INCLUDE 234 BEDS AT [facility] Rx#:[id number] Magnesium Sulfate Inj 2 GM In 100 / 100 NS Inj 96 ML @ 50 mls/hr IV.SIG ONCE ONE Rx#:[id number] KCl 20 mEq Premix Inj 20 meq In 400 / 400 100 / 100 100 / 100 100 ml @ 50 mls/hr IV.SIG Q2H PRN Rx#:[id number] NS Inj 1,000 ML @ Wide Open IV. 1000 / 1000 SIG BOLUS ONE Rx#:[id number] Output: Urine Amount (Catheter) 350 / 350 600 / 600 Indwelling Urethral Catheter 350 / 350 600 / 600 Wound Drainage # 1 Left Head Other: Date of Last Bowel Movement 06/02/18 06/02/18 06/02/18 # Bowel Movements 0 Narrative: patient is intubated and currently sedated on precedex drip when seen. she does open eyes and follows simple commands x 4 extremities, she appears slightly weaker on the right side. pupils are equal. wound with dressing clean dry and intact. Ventriculostomy drain in place draining well at 10 mm Hg. ICPs controlled. CSF dark red. - Urinary Catheter Management Female External Cath placed during this visit: no Reason for continuing: Not indwelling catheter Indwelling Urethral Catheter Cath placed during this visit: yes Reason for continuing: Hourly intake/output Insertion date: 06/05/18 Insertion time: 08:30 <Samanta Banda - Last Filed: 06/07/18 12:44> Vital signs: Vital Signs 06/06/18 14:00 06/06/18 14:01 06/06/18 15:54 Temperature Pulse Rate 88 90 Respiratory Rate 17 Blood Pressure 135/62 Pulse Oximetry 97 100 06/06/18 16:00 06/06/18 16:03 06/06/18 16:22 Temperature 98.8 F Pulse Rate 67 66 Respiratory Rate 16 5 L 11 L Blood Pressure 107/53 L 107/53 L Pulse Oximetry 98 99 95 06/06/18 16:23 06/06/18 17:00 06/06/18 17:58 Temperature Pulse Rate 84 81 86 Respiratory Rate 18 20 Blood Pressure 140/61 Pulse Oximetry 99 06/06/18 18:00 06/06/18 18:03 06/06/18 18:33 Temperature Pulse Rate 89 87 92 H Respiratory Rate 20 20 21 Blood Pressure 131/60 131/60 144/63 H Pulse Oximetry 97 97 98 06/06/18 19:00 06/06/18 19:03 06/06/18 19:33 Temperature 99.1 F Pulse Rate 91 H 89 81 Respiratory Rate 22 20 15 Blood Pressure 144/93 H 150/65 H 118/56 L Pulse Oximetry 97 91 L 92 L 06/06/18 20:00 06/06/18 20:03 06/06/18 20:04 Temperature Pulse Rate 107 H 99 H 91 H Respiratory Rate 32 H 21 25 H Blood Pressure 164/71 H Pulse Oximetry 96 95 06/06/18 20:06 06/06/18 20:33 06/06/18 21:00 Temperature Pulse Rate 77 98 H Respiratory Rate 25 H 16 22 Blood Pressure 133/60 Pulse Oximetry 95 97 97 06/06/18 21:03 06/06/18 21:33 06/06/18 22:00 Temperature Pulse Rate 99 H 78 96 H Respiratory Rate 22 15 25 H Blood Pressure 180/73 H 121/58 L Pulse Oximetry 96 98 96 06/06/18 22:03 06/06/18 22:33 06/06/18 22:35 Temperature Pulse Rate 100 H 100 H 104 H Respiratory Rate 25 H 28 H 29 H Blood Pressure 161/72 H 177/74 H 156/70 H Pulse Oximetry 96 96 95 06/06/18 23:00 06/06/18 23:03 06/06/18 23:33 Temperature Pulse Rate 101 H 101 H 102 H Respiratory Rate 26 H 29 H 29 H Blood Pressure 173/76 H 176/76 H Pulse Oximetry 98 97 95 06/06/18 23:38 06/06/18 23:41 06/07/18 00:00 Temperature Pulse Rate 100 H 101 H 96 H Respiratory Rate 20 28 H 23 Blood Pressure 142/66 H Pulse Oximetry 96 95 06/07/18 00:03 06/07/18 00:33 06/07/18 01:00 Temperature Pulse Rate 94 H 98 H 103 H Respiratory Rate 21 21 22 Blood Pressure 164/72 H 162/70 H Pulse Oximetry 95 95 95 06/07/18 01:03 06/07/18 01:33 06/07/18 02:00 Temperature Pulse Rate 101 H 96 H 96 H Respiratory Rate 22 18 20 Blood Pressure 163/70 H 167/71 H Pulse Oximetry 95 96 96 06/07/18 02:03 06/07/18 02:33 06/07/18 03:00 Temperature Pulse Rate 98 H 93 H 87 Respiratory Rate 20 17 16 Blood Pressure 151/66 H 158/70 H Pulse Oximetry 95 96 96 06/07/18 03:03 06/07/18 03:33 06/07/18 03:39 Temperature Pulse Rate 91 H 90 Respiratory Rate 17 19 20 Blood Pressure 144/63 H 155/69 H Pulse Oximetry 96 96 96 06/07/18 03:43 06/07/18 04:00 06/07/18 04:03 Temperature 98.7 F Pulse Rate 96 H 96 H 91 H Respiratory Rate 19 19 18 Blood Pressure 154/80 H 160/69 H Pulse Oximetry 96 93 L 06/07/18 04:33 06/07/18 05:00 06/07/18 05:03 Temperature Pulse Rate 91 H 91 H 93 H Respiratory Rate 19 18 19 Blood Pressure 153/64 H 154/66 H Pulse Oximetry 96 97 97 06/07/18 05:33 06/07/18 05:50 06/07/18 06:00 Temperature Pulse Rate 90 90 98 H Respiratory Rate 17 21 Blood Pressure 146/64 H Pulse Oximetry 98 96 06/07/18 06:03 06/07/18 06:33 06/07/18 07:00 Temperature Pulse Rate 97 H 92 H 92 H Respiratory Rate 22 19 17 Blood Pressure 158/67 H 164/69 H Pulse Oximetry 96 97 96 06/07/18 07:03 06/07/18 07:16 06/07/18 07:30 Temperature Pulse Rate 99 H 86 97 H Respiratory Rate 20 17 18 Blood Pressure 164/72 H 152/66 H 145/55 H Pulse Oximetry 96 95 96 06/07/18 07:45 06/07/18 08:00 06/07/18 08:15 Temperature 99.8 F H Pulse Rate 100 H 100 H 81 Respiratory Rate 20 17 17 Blood Pressure 168/74 H 152/67 H 150/66 H Pulse Oximetry 96 95 95 06/07/18 08:30 06/07/18 08:45 06/07/18 09:00 Temperature Pulse Rate 89 88 89 Respiratory Rate 18 17 24 Blood Pressure 171/73 H 144/63 H 199/83 H Pulse Oximetry 96 95 95 06/07/18 09:01 06/07/18 09:02 06/07/18 09:05 Temperature Pulse Rate 95 H 77 87 Respiratory Rate 22 28 H 24 Blood Pressure 190/77 H 180/77 H Pulse Oximetry 94 L 94 L 95 06/07/18 09:14 06/07/18 09:30 06/07/18 09:45 Temperature Pulse Rate 93 H 84 86 Respiratory Rate 22 17 14 Blood Pressure 175/75 H 190/72 H 146/67 H Pulse Oximetry 98 98 99 06/07/18 10:00 06/07/18 10:15 06/07/18 10:30 Temperature Pulse Rate 90 90 98 H Respiratory Rate 22 22 22 Blood Pressure 170/73 H 151/67 H 170/80 H Pulse Oximetry 97 98 97 06/07/18 10:46 06/07/18 11:00 06/07/18 11:17 Temperature Pulse Rate 90 95 H 95 H Respiratory Rate 18 27 H 19 Blood Pressure 169/72 H 169/74 H 182/74 H Pulse Oximetry 97 97 96 06/07/18 11:30 06/07/18 11:47 06/07/18 11:55 Temperature Pulse Rate 107 H 104 H Respiratory Rate 24 24 32 H Blood Pressure 155/69 H 169/73 H Pulse Oximetry 96 97 96 06/07/18 11:56 06/07/18 12:00 06/07/18 12:12 Temperature Pulse Rate 97 H 110 H 111 H Respiratory Rate 25 H 24 24 Blood Pressure 185/78 H 158/69 H Pulse Oximetry 99 99 Intake & Output 06/06/18 06/07/18 06/07/18 18:59 06:59 18:59 Intake Total 2300 / 2300 1050 / 1050 200 / 200 Output Total 366 / 366 620 / 620 Balance 1934 / 1934 430 / 430 200 / 200 Weight 62.6 kg Intake: IV 2300 / 2300 1050 / 1050 200 / 200 Precedex Inj 200 MCG In NS Inj 50 / 50 50 / 50 48 ML @ 0.2 MCG/KG/HR 2.79 mls/ hr IV.CONT TITRATE PRN Rx#: [id number] NS Inj 1,000 ML @ 84 mls/hr IV. 798 / 798 796 / 796 CONT .[id number] COUNTS INCLUDE 234 BEDS AT [facility] Rx#:[id number] Cerebyx Inj 100 MGPE In NS Inj 52 / 52 104 / 104 50 ML @ 208 mls/hr IV.SIG Q8HR COUNTS INCLUDE 234 BEDS AT [facility] Rx#:[id number] Magnesium Sulfate Inj 2 GM In 100 / 100 NS Inj 96 ML @ 50 mls/hr IV.SIG ONCE ONE Rx#:[id number] KCl 20 mEq Premix Inj 20 meq In 400 / 400 100 / 100 100 / 100 100 ml @ 50 mls/hr IV.SIG Q2H PRN Rx#:[id number] NS Inj 1,000 ML @ Wide Open IV. 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 hemorrhagic mass Will follow with you 05/30/18: cont neuro checks in ICU Dr. 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 at midnight on Monday night into Monday Minimize sedating meds, etc. 06/03/18: Appears to be a bit more encephalopathic today, possible contribution of hospital delirium versus her mild hydrocephalus, though favor delirium since her level of alertness remains stable Dr. 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 at midnight tonight Continue to minimize sedating meds, etc. 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 Palacios 06/06/18: POD #1. pt had seizure last night requiring intubation. She has been started on Keppra for seizures. On exam she opens eyes and follows commands. Postoperative MRI Brain w/wo contrast has been ordered and pending. Obtain EEG to assess seizures. Continue ventriculostomy draining, add ICP monitoring. Start sq lovenox for dvt prophylaxis. Will follow. 06/07/18: POD #2. patient neurologically stable, opens eyes and follows commands. Postoperative MRI Brain reviewed by neurosurgery team. Spot EEG reports no ongoing seizures, with high amplitude sharp waves on left?breach rhythm. Critical care plans on extubation today. Continue ventriculostomy draining at 10 mmHg. Final pathology pending. Neurology following for seizure management. Will follow. <Samanta Banda - Last Filed: 06/07/18 12:44> - Attending Attestation POD #2. patient remains neurologically stable, opens eyes and follows commands. Postoperative MRI Brain shows excellent resection cont EVD open to drain at 10 mmHg cont. HOB to 30 degrees Would extubate no need for precedex after extubation Cont. present management I have personally seen and examined the patient, reviewed pertinent labs and imaging studies. I agree with Solo"s assessment as well as plan of care . <Duke Palacios - Last Filed: 06/07/18 13:33>
--- NOTE | 2018-06-07 13:04 | P.PN ---
Subjective Interval history: Remains on ventilator support. FiO2 at 30% She is lethargic but assisting the ventilator. Off sedation. Physical Exam Vital signs: Vital Signs 06/06/18 13:01 06/06/18 14:00 06/06/18 14:01 Temperature Pulse Rate 90 88 90 Respiratory Rate 16 17 Blood Pressure 152/64 H 135/62 Pulse Oximetry 97 97 06/06/18 15:54 06/06/18 16:00 06/06/18 16:03 Temperature 98.8 F Pulse Rate 67 66 Respiratory Rate 16 5 L Blood Pressure 107/53 L 107/53 L Pulse Oximetry 100 98 99 06/06/18 16:22 06/06/18 16:23 06/06/18 17:00 Temperature Pulse Rate 84 81 Respiratory Rate 11 L 18 20 Blood Pressure 140/61 Pulse Oximetry 95 99 06/06/18 17:58 06/06/18 18:00 06/06/18 18:03 Temperature Pulse Rate 86 89 87 Respiratory Rate 20 20 Blood Pressure 131/60 131/60 Pulse Oximetry 97 97 06/06/18 18:33 06/06/18 19:00 06/06/18 19:03 Temperature 99.1 F Pulse Rate 92 H 91 H 89 Respiratory Rate 21 22 20 Blood Pressure 144/63 H 144/93 H 150/65 H Pulse Oximetry 98 97 91 L 06/06/18 19:33 06/06/18 20:00 06/06/18 20:03 Temperature Pulse Rate 81 107 H 99 H Respiratory Rate 15 32 H 21 Blood Pressure 118/56 L 164/71 H Pulse Oximetry 92 L 96 95 06/06/18 20:04 06/06/18 20:06 06/06/18 20:33 Temperature Pulse Rate 91 H 77 Respiratory Rate 25 H 25 H 16 Blood Pressure 133/60 Pulse Oximetry 95 97 06/06/18 21:00 06/06/18 21:03 06/06/18 21:33 Temperature Pulse Rate 98 H 99 H 78 Respiratory Rate 22 22 15 Blood Pressure 180/73 H 121/58 L Pulse Oximetry 97 96 98 06/06/18 22:00 06/06/18 22:03 06/06/18 22:33 Temperature Pulse Rate 96 H 100 H 100 H Respiratory Rate 25 H 25 H 28 H Blood Pressure 161/72 H 177/74 H Pulse Oximetry 96 96 96 06/06/18 22:35 06/06/18 23:00 06/06/18 23:03 Temperature Pulse Rate 104 H 101 H 101 H Respiratory Rate 29 H 26 H 29 H Blood Pressure 156/70 H 173/76 H Pulse Oximetry 95 98 97 06/06/18 23:33 06/06/18 23:38 06/06/18 23:41 Temperature Pulse Rate 102 H 100 H 101 H Respiratory Rate 29 H 20 28 H Blood Pressure 176/76 H 142/66 H Pulse Oximetry 95 96 06/07/18 00:00 06/07/18 00:03 06/07/18 00:33 Temperature Pulse Rate 96 H 94 H 98 H Respiratory Rate 23 21 21 Blood Pressure 164/72 H 162/70 H Pulse Oximetry 95 95 95 06/07/18 01:00 06/07/18 01:03 06/07/18 01:33 Temperature Pulse Rate 103 H 101 H 96 H Respiratory Rate 22 22 18 Blood Pressure 163/70 H 167/71 H Pulse Oximetry 95 95 96 06/07/18 02:00 06/07/18 02:03 06/07/18 02:33 Temperature Pulse Rate 96 H 98 H 93 H Respiratory Rate 20 20 17 Blood Pressure 151/66 H 158/70 H Pulse Oximetry 96 95 96 06/07/18 03:00 06/07/18 03:03 06/07/18 03:33 Temperature Pulse Rate 87 91 H 90 Respiratory Rate 16 17 19 Blood Pressure 144/63 H 155/69 H Pulse Oximetry 96 96 96 06/07/18 03:39 06/07/18 03:43 06/07/18 04:00 Temperature 98.7 F Pulse Rate 96 H 96 H Respiratory Rate 20 19 19 Blood Pressure 154/80 H Pulse Oximetry 96 96 06/07/18 04:03 06/07/18 04:33 06/07/18 05:00 Temperature Pulse Rate 91 H 91 H 91 H Respiratory Rate 18 19 18 Blood Pressure 160/69 H 153/64 H Pulse Oximetry 93 L 96 97 06/07/18 05:03 06/07/18 05:33 06/07/18 05:50 Temperature Pulse Rate 93 H 90 90 Respiratory Rate 19 17 Blood Pressure 154/66 H 146/64 H Pulse Oximetry 97 98 06/07/18 06:00 06/07/18 06:03 06/07/18 06:33 Temperature Pulse Rate 98 H 97 H 92 H Respiratory Rate 21 22 19 Blood Pressure 158/67 H 164/69 H Pulse Oximetry 96 96 97 06/07/18 07:00 06/07/18 07:03 06/07/18 07:16 Temperature Pulse Rate 92 H 99 H 86 Respiratory Rate 17 20 17 Blood Pressure 164/72 H 152/66 H Pulse Oximetry 96 96 95 06/07/18 07:30 06/07/18 07:45 06/07/18 08:00 Temperature 99.8 F H Pulse Rate 97 H 100 H 100 H Respiratory Rate 18 20 17 Blood Pressure 145/55 H 168/74 H 152/67 H Pulse Oximetry 96 96 95 06/07/18 08:15 06/07/18 08:30 06/07/18 08:45 Temperature Pulse Rate 81 89 88 Respiratory Rate 17 18 17 Blood Pressure 150/66 H 171/73 H 144/63 H Pulse Oximetry 95 96 95 06/07/18 09:00 06/07/18 09:01 06/07/18 09:02 Temperature Pulse Rate 89 95 H 77 Respiratory Rate 24 22 28 H Blood Pressure 199/83 H 190/77 H Pulse Oximetry 95 94 L 94 L 06/07/18 09:05 06/07/18 09:14 06/07/18 09:30 Temperature Pulse Rate 87 93 H 84 Respiratory Rate 24 22 17 Blood Pressure 180/77 H 175/75 H 190/72 H Pulse Oximetry 95 98 98 06/07/18 09:45 06/07/18 10:00 06/07/18 10:15 Temperature Pulse Rate 86 90 90 Respiratory Rate 14 22 22 Blood Pressure 146/67 H 170/73 H 151/67 H Pulse Oximetry 99 97 98 06/07/18 10:30 06/07/18 10:46 06/07/18 11:00 Temperature Pulse Rate 98 H 90 95 H Respiratory Rate 22 18 27 H Blood Pressure 170/80 H 169/72 H 169/74 H Pulse Oximetry 97 97 97 06/07/18 11:17 06/07/18 11:30 06/07/18 11:47 Temperature Pulse Rate 95 H 107 H 104 H Respiratory Rate 19 24 24 Blood Pressure 182/74 H 155/69 H 169/73 H Pulse Oximetry 96 96 97 06/07/18 11:55 06/07/18 11:56 06/07/18 12:00 Temperature Pulse Rate 97 H 110 H Respiratory Rate 32 H 25 H 24 Blood Pressure 185/78 H Pulse Oximetry 96 99 06/07/18 12:12 Temperature Pulse Rate 111 H Respiratory Rate 24 Blood Pressure 158/69 H Pulse Oximetry 99 Intake & Output 06/06/18 06/07/18 06/07/18 18:59 06:59 18:59 Intake Total 2300 / 2300 1050 / 1050 200 / 200 Output Total 366 / 366 620 / 620 Balance 1934 / 1934 430 / 430 200 / 200 Weight 62.6 kg Intake: IV 2300 / 2300 1050 / 1050 200 / 200 Precedex Inj 200 MCG In NS Inj 50 / 50 50 / 50 48 ML @ 0.2 MCG/KG/HR 2.79 mls/ hr IV.CONT TITRATE PRN Rx#: [id number] NS Inj 1,000 ML @ 84 mls/hr IV. 798 / 798 796 / 796 CONT .[id number] [facility] Rx#:[id number] Cerebyx Inj 100 MGPE In NS Inj 52 / 52 104 / 104 50 ML @ 208 mls/hr IV.SIG Q8HR [facility] Rx#:[id number] Magnesium Sulfate Inj 2 GM In 100 / 100 NS Inj 96 ML @ 50 mls/hr IV.SIG ONCE ONE Rx#:[id number] KCl 20 mEq Premix Inj 20 meq In 400 / 400 100 / 100 100 / 100 100 ml @ 50 mls/hr IV.SIG Q2H PRN Rx#:[id number] NS Inj 1,000 ML @ Wide Open IV. 1000 / 1000 SIG BOLUS ONE Rx#:[id number] Output: Urine Amount (Catheter) 350 / 350 600 / 600 Indwelling Urethral Catheter 350 / 350 600 / 600 Wound Drainage # 1 Left Head Other: Date of Last Bowel Movement 06/02/18 06/02/18 06/02/18 # Bowel Movements 0 Narrative: patient is intubated and on ventilator support GENERAL: Averagely built elderly white female. SKIN: Warm and dry. HEAD: Atraumatic. Normocephalic. EYES: Pupils equal and round. No scleral icterus. No injection or drainage. ENT: No nasal bleeding or discharge. Mucous membranes pink and moist. NECK: Trachea midline. No JVD. CARDIOVASCULAR: Regular rate and rhythm. RESPIRATORY: No accessory muscle use. Occasional wheezes bilaterally. breath sounds equal bilaterally. GASTROINTESTINAL: Abdomen soft, non-tender, nondistended. Hepatic and splenic margins not palpable. MUSCULOSKELETAL: Extremities without clubbing, cyanosis, or edema. No obvious deformities. NEUROLOGICAL: Sedated and lethargic. - Urinary Catheter Management Female External Cath placed during this visit: no Reason for continuing: Not indwelling catheter Indwelling Urethral Catheter Cath placed during this visit: yes Reason for continuing: Hourly intake/output Insertion date: 06/05/18 Insertion time: 08:30 Results - Labs CBC & Chem 7: 06/07/18 04:08 06/07/18 04:08 Laboratory Results - last 24 hr 06/06/18 06/07/18 06/07/18 19:05 04:08 04:08 WBC 13.3 H RBC 3.03 L Hgb 10.1 L Hct 30.5 L MCV 100.6 H MCH 33.3 MCHC 33.1 RDW 14.5 Plt Count 180 MPV 7.4 Neut % (Auto) 85.9 H Lymph % (Auto) 6.1 L [place] % (Auto) 7.8 Eos % (Auto) 0.0 Baso % (Auto) 0.2 Neut # (Auto) 11.4 H Lymph # (Auto) 0.8 L [place] # (Auto) 1.0 H Eos # (Auto) 0.0 Baso # (Auto) 0.0 WBC Differential . Differential Comment Auto diff final Sodium 142 Potassium 3.5 3.4 L Chloride 109 H Carbon Dioxide 21.9 Anion Gap 11 BUN 14 Creatinine 0.31 L Estimated GFR Greater than 89 Random Glucose 111 H Calcium 8.3 L D Phosphorus 1.8 L Magnesium 1.7 Phenytoin 9.6 L Microbiology 06/01/18 10:21 Blood - Peripheral Aerobic Blood Culture - Final No growth in 5 days 06/01/18 10:21 Blood - Peripheral Anaerobic Blood Culture - Final No growth in 5 days 06/01/18 10:16 Blood - Peripheral Aerobic Blood Culture - Final No growth in 5 days 06/01/18 10:16 Blood - Peripheral Anaerobic Blood Culture - Final No growth in 5 days - Imaging Impressions Head MRI 06/06/18 00:00 CONCLUSION: 1. 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 2. Intraventricular blood as described. Left lateral ventricle is slightly smaller. 3. Air and small amount of acute blood in the subdural spaces of both convexities. There is also small subdural blood in between the leaves of the falx. 4. Roughly 5 mm of rightward midline shift, improved. Assessment and Plan - Assessment (1) COPD (chronic obstructive pulmonary disease) Code(s): J44.9 - Chronic obstructive pulmonary disease, unspecified Status: Acute (2) Right upper lobe pulmonary nodule Code(s): R91.1 - Solitary pulmonary nodule Status: Acute (3) Intraventricular hemorrhage, nontraumatic Code(s): I61.5 - Nontraumatic intracerebral hemorrhage, intraventricular Status: Acute (4) Hypertensive emergency Code(s): I16.1 - Hypertensive emergency Status: Acute (5) Metabolic encephalopathy Code(s): G93.41 - Metabolic encephalopathy Status: Acute (6) Altered mental status Code(s): R41.82 - Altered mental status, unspecified Status: Acute (7) History of peripheral arterial disease Code(s): Z86.79 - Personal history of other diseases of the circulatory system Status: Chronic (8) History of hypertension Code(s): Z86.79 - Personal history of other diseases of the circulatory system Status: Chronic (9) Cessation of tobacco use in previous 12 months Code(s): Z87.891 - Personal history of nicotine dependence Status: Chronic - Plan 1 wean ventilator to CPAP 5 x 12 and FiO2 30% 2. Continue DuoNeb nebs 4 times daily. 3. Stop sedation 4. Workup for lung mass when clinically stable 5. Check respiratory parameters and consider extubation 6 Symbicort 160 about 4.5 mcg 1 puff twice daily 7. Add Solu-Medrol 40 mg IV twice daily (6) Altered mental status Qualifiers: Altered mental status type: unspecified Qualified Code(s): R41.82 - Altered mental status, unspecified
[2018-06-07 18:18] LABS: Potassium 3.4 meq/L (3.5-5.1)
[2018-06-07 18:19] LABS: Magnesium 1.9 mg/dL (1.5-2.5)
[2018-06-07] MEDS: MethylPREDNISolone Sod Succinate Inj 40 MG/ML Vial IV.PUSH SCH (20:01)
[2018-06-08] MEDS: Sod Chloride 0.9% Inj 1,000 ML IV.CONT SCH ×2 (02:13→13:21)
[2018-06-08] MEDS: Artificial Tears Opth Drops 15 ML Bottle EACH EYE SCH ×4 (02:15→20:54)
[2018-06-08] MEDS: Clevidipine Inj 25 MG/50 ML VIAL IV.CONT PRN ×6 (02:16→22:45)
[2018-06-08 04:02] LABS: Anion Gap 11 meq/L (5-15); Blood Urea Nitrogen 9 mg/dL (7-18); Calcium 7.9 mg/dL (8.5-10.1); Carbon Dioxide 22.7 meq/L (21.0-32.0); Chloride 107 meq/L (98-107); Glomerular Filtration Rate Greater Than 89 mL/min (>89); Glucose,Random 99 mg/dL (74-106); Phenytoin (Dilantin) 8.4 mcg/mL (10.0-20.0); Phosphorus 1.8 mg/dL (2.5-4.9); Sodium 141 meq/L (136-145)
--- NOTE | 2018-06-08 05:16 | XR ---
EXAM DATE: 06/08/2018 5:03 AM EST AGE/SEX: 78 years / Female INDICATIONS: Respiratory failure. CLINICAL DATA: This is the patient's subsequent encounter. Patient reports that signs and symptoms h ave been present for 1 week and indicates a pain score of Nonresponsive. MEDICAL/SURGICAL HISTORY: . Seizures. Hypertension. Hypercholesterolemia. Craniotomy. [place] [facility] [place]. . FINDINGS: A single AP view of the chest demonstrates the endotracheal tube, nasogastric tube both in good posit ion. Lungs remain grossly clear. No visible pneumothorax. Heart and mediastinum remain unremarkable. CONCLUSION: Tracheostomy tube and nasogastric tube position. Lungs are grossly clear. Electronically signed by: Dany Dennison MD Board Certified Radiologist 06/08/2018 5:15 AM EST
[2018-06-08] MEDS: Fosphenytoin Inj 100 MGPE in Sodium Chlor 0.9% Inj 50 ML IV.SIG SCH ×3 (05:42→21:36)
[2018-06-08 06:08] LABS: Baso % (Auto) 0.1 % (0.0-2.0); Eos % (Auto) 0.1 % (0.0-4.0); Hematocrit 33.2 % (35.0-46.0); Hemoglobin 11.3 gm/dL (11.6-15.3); Lymph # (Auto) 1.1 th/mm3 (1.0-4.8); Lymph % (Auto) 8.2 % (9.0-44.0); Mean Corpuscular Hemoglobin 34.3 pg (27.0-34.0); Mean Corpuscular Volume 100.8 fL (80.0-100.0); Mean Platelet Volume 8.1 fL (7.0-11.0); Mono # (Auto) 1.2 th/mm3 (0.0-0.9); Mono % (Auto) 8.9 % (0.0-8.0); Neut # (Auto) 11.2 th/mm3 (1.8-7.7); Neut % (Auto) 82.7 % (16.0-70.0); Red Blood Count 3.29 mil/mm3 (4.00-5.30); Red Cell Distribution Width 14.3 % (11.6-17.2); White Blood Count 13.5 th/mm3 (4.0-11.0)
[2018-06-08 06:59] LABS: Lymphocytes 8 % (9-44); Monocytes 7 % (0-8); Platelet Estimate Normal (Normal); Platelet Morphology Clumped (Normal); Promyelocyte 1 % (0-0)
[2018-06-08] MEDS: Potassium Chlor 20 mEq Premix 20 MEQ/100 ML PIGGYBACK IV.SIG PRN ×4 (07:47→13:47)
[2018-06-08] MEDS: Enoxaparin Inj 40 MG/0.4 ML Syringe SQ SCH (07:59)
[2018-06-08] MEDS: MethylPREDNISolone Sod Succinate Inj 40 MG/ML Vial IV.PUSH SCH ×2 (07:59→21:36)
[2018-06-08] MEDS: amLODIPine 5 MG Tablet PO SCH (07:59)
[2018-06-08] MEDS: Lisinopril 20 MG Tablet PO SCH (07:59)
[2018-06-08] MEDS: Senna/Docusate Sodium 8.6/50 MG Tablet PO SCH ×2 (07:59→21:35)
[2018-06-08] MEDS: Metoprolol Tartrate 50 MG Tablet PO SCH ×2 (07:59→21:35)
[2018-06-08] MEDS: Budesonide-Formoterol 160/4.5 MCG 6 GM Inhaler INH SCH ×2 (08:00→20:54)
[2018-06-08] MEDS: Pantoprazole Inj 40 MG Vial IV.PUSH SCH (08:00)
--- NOTE | 2018-06-08 10:45 | P.PNNEU ---
Subjective Active Medications: Active Medications Acetaminophen (Tylenol) 650 mg PO Q6H PRN PRN Reason: PAIN 1-10 AND/OR FEVER >101F Al Hydroxide/Mg Hydroxide (Milk Of Magnalexis Liq) 30 ml PO Q12H PRN PRN Reason: Mild Constipation Albuterol (Duoneb Neb (Batsheva)) 1 ampul NEB Q4HR NEB [facility] Last Admin: 06/08/18 07:38 Dose: 1 ampul Albuterol (Albuterol Neb (Prn)) 2.5 mg NEB Q2HR NEB PRN PRN Reason: DYSPNEA Amlodipine Besylate (Norvasc) 5 mg PO DAILY [facility] Last Admin: 06/08/18 07:59 Dose: 5 mg Artificial Tears (Tears Naturale Opth Drops) 1 drop EACH EYE Q8H [facility] Last Admin: 06/08/18 07:32 Dose: Not Given Bisacodyl (Dulcolax Supp) 10 mg RECTAL DAILY PRN PRN Reason: SEVERE CONSITIPATION Budesonide/Formoterol Fumarate (Symbicort 160/4.5 Mcg Inh) 1 puff INH BID [facility] Last Admin: 06/08/18 08:00 Dose: Not Given Enalaprilat (Vasotec Inj) 2.5 mg IV.PUSH Q6H PRN PRN Reason: SBP > 150 Last Admin: 06/07/18 09:03 Dose: 2.5 mg Enoxaparin Sodium (Lovenox Inj) 40 mg SQ DAILY [facility] Last Admin: 06/08/18 07:59 Dose: 40 mg Haloperidol Lactate (Haldol Inj) 2 mg IV.PUSH Q4H PRN PRN Reason: AGITATION Last Admin: 06/02/18 17:04 Dose: 2 mg Hydralazine HCl (Apresoline Inj) 10 mg IV.PUSH Q30M PRN PRN Reason: SBP > 160 Last Admin: 06/05/18 13:30 Dose: 10 mg Sodium Chloride (Ns Inj) 1,000 mls @ 84 mls/hr IV.CONT .[id number] [facility] Last Infusion: 06/08/18 06:46 Dose: 84 mls/hr Nicardipine HCl 25 mg/ Sodium (Chloride) 250 mls @ 50 mls/hr IV.CONT TITRATE PRN; Protocol PRN Reason: Per Protocol Last Titration: 06/05/18 13:39 Dose: 0 mg/hr, 0 mls/hr Magnesium Sulfate 4 gm/ Sodium (Chloride) 100 mls @ 50 mls/hr IV.SIG UNSCH PRN PRN Reason: For Magnesium 0.9 - 1.1 mg/dL Magnesium Sulfate 2 gm/ Sodium (Chloride) 100 mls @ 50 mls/hr IV.SIG UNSCH PRN PRN Reason: For Magnesium 1.2 - 1.6 mg/dL Potassium Chloride (Kcl 40 Meq Premix Inj) 40 meq in 100 mls @ 25 mls/hr IV.SIG Q2H PRN PRN Reason: For Potassium 2.8 - 3.2 mEq/L Potassium Chloride (Kcl 20 Meq Premix Inj) 20 meq in 100 mls @ 50 mls/hr IV.SIG Q2H PRN PRN Reason: For Potassium 3.3 - 3.5 mEq/L Last Infusion: 06/07/18 07:00 Dose: Infused Potassium Chloride (Kcl 40 Meq Premix Inj) 40 meq in 100 mls @ 25 mls/hr IV.SIG UNSCH PRN PRN Reason: For Potassium 3.3 - 3.5 mEq/L Potassium Chloride (Kcl 20 Meq Premix Inj) 20 meq in 100 mls @ 50 mls/hr IV.SIG Q2H PRN PRN Reason: For Potassium 2.8 - 3.2 mEq/L Last Admin: 06/08/18 09:47 Dose: 50 mls/hr Potassium Phosphate 30 mmol/ (Sodium Chloride) 260 mls @ 42 mls/hr IV.SIG UNSCH PRN PRN Reason: SEE LABEL COMMENTS Sodium Phosphate 30 mmol/ (Sodium Chloride) 260 mls @ 42 mls/hr IV.SIG UNSCH PRN PRN Reason: For Phosphorus < 2.5 mg/dL Dexmedetomidine HCl 200 mcg/ (Sodium Chloride) 50 mls @ 2.79 mls/hr IV.CONT TITRATE PRN; Protocol PRN Reason: Per Protocol Last Titration: 06/07/18 08:10 Dose: 0 mcg/kg/hr, 0 mls/hr Fosphenytoin Sodium 100 mgpe/ (Sodium Chloride) 52 mls @ 208 mls/hr IV.SIG Q8HR [facility] Last Infusion: 06/08/18 05:57 Dose: Infused Clevidipine (Cleviprex Inj) 25 mg in 50 mls @ 2 mls/hr IV.CONT TITRATE PRN; Protocol PRN Reason: Per protocol Last Admin: 06/08/18 10:21 Dose: 7 mg/hr, 14 mls/hr Levetiracetam 500 mg/ Sodium (Chloride) 105 mls @ 400 mls/hr IV.SIG Q12H [facility] Last Infusion: 06/08/18 02:29 Dose: Infused Labetalol HCl (Trandate Inj) 10 mg IV.PUSH Q4H PRN PRN Reason: Sbp>140, Dbp>90 Last Admin: 06/05/18 03:14 Dose: 10 mg Labetalol HCl (Trandate Inj) 20 mg IV.PUSH Q1H PRN PRN Reason: SBP > 170 Lactulose (Lactulose Liq) 30 ml PO DAILY PRN PRN Reason: SEVERE CONSITIPATION Lisinopril (Prinivil) 40 mg PO DAILY [facility] Last Admin: 06/08/18 07:59 Dose: 40 mg Lorazepam (Ativan Inj) 1 mg IV.PUSH Q10M PRN PRN Reason: SEIZURES Magnesium Oxide (Mag-Ox) 800 mg PO UNSCH PRN PRN Reason: For Magnesium 1.2 - 1.6 mg/dL Methylprednisolone Sodium Succinate (Solumedrol Inj) 40 mg IV.PUSH Q12HR [facility] Last Admin: 06/08/18 07:59 Dose: 40 mg Metoprolol Tartrate (Lopressor) 50 mg PO BID [facility] Last Admin: 06/08/18 07:59 Dose: 50 mg Morphine Sulfate (Morphine Inj) 2 mg IV.PUSH Q30M PRN PRN Reason: SEVERE ANXIETY OR AGITATION Last Admin: 06/06/18 05:20 Dose: 2 mg Pantoprazole Sodium (Protonix Inj) 40 mg IV.PUSH DAILY [facility] Last Admin: 06/08/18 08:00 Dose: 40 mg Potassium Chloride (Kcl Liq) 40 meq PO UNSCH PRN PRN Reason: Potassium level 3.3-3.5 mEq/L Last Admin: 06/02/18 06:38 Dose: 40 meq Potassium Chloride (Kcl Liq) 40 meq PO UNSCH PRN PRN Reason: Potassium level 3.3-3.5 mEq/L Potassium Phosphate (K-Phos Original) 2,000 mg PO Q4H PRN PRN Reason: Phosphorus Less Than 2.5 mg/dL Potassium Phosphate (K-Phos Original) 2,000 mg PO UNSCH PRN PRN Reason: SEE LABEL COMMENTS Pravastatin Sodium (Pravachol) 40 mg PO DAILY [facility] Last Admin: 06/08/18 07:59 Dose: 40 mg Senna/Docusate Sodium (Kate-Colace) 1 tab PO BID [facility] Last Admin: 06/08/18 07:59 Dose: 1 tab Sennosides (Senokot) 17.2 mg PO Q12H PRN PRN Reason: Moderate Constipation Sodium Chloride (Ns Flush) 2 ml IV.FLUSH PRN PRN PRN Reason: FLUSH AFTER USING IV ACCESS Sodium Chloride (Ns Flush) 2 ml IV.FLUSH BID [facility] Last Admin: 06/08/18 08:00 Dose: 2 ml Allergies/Adverse Reactions: Allergies Allergy/AdvReac Type Severity Reaction Status Date / Time No Known Allergies Allergy Verified 05/29/18 15:32 Physical Exam Vital signs: Vital Signs 06/07/18 10:46 06/07/18 11:00 06/07/18 11:17 Temperature Pulse Rate 90 95 H 95 H Respiratory Rate 18 27 H 19 Blood Pressure 169/72 H 169/74 H 182/74 H Pulse Oximetry 97 97 96 06/07/18 11:30 06/07/18 11:47 06/07/18 11:55 Temperature Pulse Rate 107 H 104 H Respiratory Rate 24 24 32 H Blood Pressure 155/69 H 169/73 H Pulse Oximetry 96 97 96 06/07/18 11:56 06/07/18 12:00 06/07/18 12:12 Temperature Pulse Rate 97 H 110 H 111 H Respiratory Rate 25 H 24 24 Blood Pressure 185/78 H 158/69 H Pulse Oximetry 99 99 06/07/18 12:30 06/07/18 13:00 06/07/18 13:30 Temperature Pulse Rate 110 H 107 H 119 H Respiratory Rate 22 16 18 Blood Pressure 155/68 H 150/67 H 165/71 H Pulse Oximetry 99 97 95 06/07/18 14:00 06/07/18 14:30 06/07/18 14:45 Temperature Pulse Rate 118 H 102 H 114 H Respiratory Rate 22 16 16 Blood Pressure 169/72 H 127/60 161/72 H Pulse Oximetry 95 98 98 06/07/18 15:00 06/07/18 15:15 06/07/18 15:30 Temperature Pulse Rate 115 H 117 H 101 H Respiratory Rate 16 20 16 Blood Pressure 155/67 H 148/65 H 151/66 H Pulse Oximetry 97 97 98 06/07/18 15:42 06/07/18 15:45 06/07/18 16:00 Temperature 99.2 F Pulse Rate 98 H 103 H 119 H Respiratory Rate 16 16 20 Blood Pressure 137/63 162/70 H Pulse Oximetry 98 99 99 06/07/18 16:15 06/07/18 16:30 06/07/18 16:45 Temperature Pulse Rate 114 H 113 H 114 H Respiratory Rate 17 17 16 Blood Pressure 153/65 H 138/63 141/61 H Pulse Oximetry 99 99 96 06/07/18 17:00 06/07/18 17:15 06/07/18 17:30 Temperature Pulse Rate 120 H 111 H 116 H Respiratory Rate 19 16 16 Blood Pressure 139/63 146/63 H 134/63 Pulse Oximetry 95 96 96 06/07/18 17:45 06/07/18 18:00 06/07/18 18:15 Temperature Pulse Rate 118 H 113 H 122 H Respiratory Rate 16 16 16 Blood Pressure 150/67 H 143/62 H 145/65 H Pulse Oximetry 96 96 96 06/07/18 18:30 06/07/18 18:45 06/07/18 19:00 Temperature Pulse Rate 123 H 113 H 118 H Respiratory Rate 24 16 16 Blood Pressure 141/55 H 121/63 135/58 L Pulse Oximetry 95 96 95 06/07/18 19:15 06/07/18 19:30 06/07/18 19:43 Temperature Pulse Rate 117 H 116 H 117 H Respiratory Rate 24 16 16 Blood Pressure 132/61 145/63 H Pulse Oximetry 95 92 L 92 L 06/07/18 19:45 06/07/18 20:00 06/07/18 20:15 Temperature Pulse Rate 116 H 121 H 100 H Respiratory Rate 16 17 16 Blood Pressure 151/64 H 152/67 H 129/61 Pulse Oximetry 91 L 98 96 06/07/18 20:30 06/07/18 20:45 06/07/18 21:00 Temperature Pulse Rate 90 86 89 Respiratory Rate 16 16 16 Blood Pressure 112/53 L 114/55 L 114/56 L Pulse Oximetry 97 95 06/07/18 21:15 06/07/18 21:30 06/07/18 21:45 Temperature Pulse Rate 92 H 91 H 98 H Respiratory Rate 16 16 16 Blood Pressure 128/60 121/56 L 136/61 Pulse Oximetry 95 96 96 06/07/18 22:00 06/07/18 22:15 06/07/18 22:30 Temperature 98.4 F Pulse Rate 94 H 97 H 106 H Respiratory Rate 16 16 16 Blood Pressure 131/56 L 140/65 146/55 H Pulse Oximetry 96 96 96 06/07/18 22:45 06/07/18 23:00 06/07/18 23:15 Temperature Pulse Rate 99 H 107 H 108 H Respiratory Rate 16 16 18 Blood Pressure 143/63 H 140/64 165/74 H Pulse Oximetry 97 96 96 06/07/18 23:21 06/07/18 23:30 06/07/18 23:45 Temperature Pulse Rate 97 H 103 H 96 H Respiratory Rate 16 16 16 Blood Pressure 142/65 H 158/71 H Pulse Oximetry 98 97 06/08/18 00:00 06/08/18 00:15 06/08/18 00:30 Temperature Pulse Rate 103 H 98 H 112 H Respiratory Rate 16 16 16 Blood Pressure 138/64 166/72 H 158/66 H Pulse Oximetry 96 96 96 06/08/18 00:45 06/08/18 01:00 06/08/18 01:14 Temperature Pulse Rate 76 105 H Respiratory Rate 17 16 16 Blood Pressure 169/70 H 151/67 H Pulse Oximetry 96 96 96 06/08/18 01:15 06/08/18 01:30 06/08/18 01:45 Temperature Pulse Rate 103 H 100 H 106 H Respiratory Rate 16 16 16 Blood Pressure 142/65 H 120/57 L 134/64 Pulse Oximetry 96 96 97 06/08/18 02:00 06/08/18 02:15 06/08/18 02:30 Temperature Pulse Rate 115 H 105 H 106 H Respiratory Rate 16 16 18 Blood Pressure 143/67 H 149/71 H 151/70 H Pulse Oximetry 97 97 96 06/08/18 02:45 06/08/18 03:00 06/08/18 03:15 Temperature Pulse Rate 106 H 105 H 101 H Respiratory Rate 16 16 16 Blood Pressure 143/65 H 158/70 H 154/71 H Pulse Oximetry 96 94 L 93 L 01/25/19 03:30 06/08/18 03:34 06/08/18 03:35 Temperature Pulse Rate 95 H 103 H Respiratory Rate 16 18 18 Blood Pressure 163/70 H Pulse Oximetry 93 L 93 L 06/08/18 03:45 06/08/18 04:00 06/08/18 04:15 Temperature Pulse Rate 95 H 105 H 112 H Respiratory Rate 16 16 16 Blood Pressure 138/53 L 151/68 H 167/72 H Pulse Oximetry 98 98 95 06/08/18 04:30 06/08/18 04:45 06/08/18 05:00 Temperature Pulse Rate 105 H 110 H 101 H Respiratory Rate 16 16 16 Blood Pressure 163/67 H 162/68 H 152/69 H Pulse Oximetry 95 95 96 06/08/18 05:15 06/08/18 05:30 06/08/18 05:45 Temperature Pulse Rate 114 H 105 H 106 H Respiratory Rate 17 16 25 H Blood Pressure 162/67 H 160/70 H 153/67 H Pulse Oximetry 96 96 96 06/08/18 06:00 06/08/18 07:00 06/08/18 07:15 Temperature 100.5 F H Pulse Rate 115 H 105 H 108 H Respiratory Rate 16 16 16 Blood Pressure 169/74 H 151/64 H 153/70 H Pulse Oximetry 95 95 95 06/08/18 07:30 06/08/18 07:38 06/08/18 07:45 Temperature Pulse Rate 108 H 103 H 99 H Respiratory Rate 16 16 16 Blood Pressure 127/57 L 142/65 H Pulse Oximetry 94 L 94 L 97 06/08/18 08:00 06/08/18 08:15 06/08/18 08:30 Temperature Pulse Rate 111 H 122 H 108 H Respiratory Rate 13 21 13 Blood Pressure 157/67 H 168/67 H 147/67 H Pulse Oximetry 94 L 95 96 06/08/18 08:45 06/08/18 09:00 06/08/18 09:15 Temperature Pulse Rate 90 91 H 91 H Respiratory Rate 12 13 13 Blood Pressure 125/58 L 149/63 H 139/59 L Pulse Oximetry 95 95 96 06/08/18 09:30 06/08/18 09:45 06/08/18 10:00 Temperature Pulse Rate 83 89 98 H Respiratory Rate 14 16 21 Blood Pressure 153/71 H 145/69 H 162/71 H Pulse Oximetry 98 97 95 06/08/18 10:15 06/08/18 10:30 Temperature Pulse Rate 84 87 Respiratory Rate 12 13 Blood Pressure 145/55 H 146/66 H Pulse Oximetry 96 95 Intake & Output 06/07/18 06/08/18 06/08/18 18:59 06:59 18:59 Intake Total 1513 / 1513 1359 / 1359 150 / 150 Output Total 1445 / 1445 1260 / 1260 Balance 68 / 68 99 / 99 150 / 150 Weight 62.6 kg Intake: IV 1513 / 1513 1359 / 1359 150 / 150 Cleviprex Inj 25 mg In 50 ml @ 100 / 100 150 / 150 50 / 50 1 MG/HR 2 mls/hr IV.CONT TITRATE PRN Rx#:[id number] NS Inj 1,000 ML @ 84 mls/hr IV. 796 / 796 1000 / 1000 CONT .[id number] [facility] Rx#:[id number] Cerebyx Inj 100 MGPE In NS Inj 52 / 52 104 / 104 50 ML @ 208 mls/hr IV.SIG Q8HR [facility] Rx#:[id number] Magnesium Sulfate Inj 2 GM In 100 / 100 NS Inj 96 ML @ 50 mls/hr IV.SIG ONCE ONE Rx#:[id number] KCl 20 mEq Premix Inj 20 meq In 100 / 100 100 / 100 100 ml @ 50 mls/hr IV.SIG Q2H PRN Rx#:[id number] Potassium Phosphate Inj 30 MMOL 260 / 260 In NS Inj 250 ML @ 43.333 mls/ hr IV.SIG ONCE ONE Rx#:[id number] Keppra Inj 500 MG In NS Inj 100 105 / 105 105 / 105 ML @ 400 mls/hr IV.SIG Q12H [facility] Rx#:[id number] Output: Urine Amount (Catheter) 1400 / 1400 1200 / 1200 Indwelling Urethral Catheter 1400 / 1400 1200 / 1200 Gastric Drainage 0 / 0 Orogastric Tube 0 / 0 Wound Drainage 45 / 45 60 / 60 # 1 Left Head 45 / 45 60 / 60 Other: Date of Last Bowel Movement 06/02/18 06/02/18 06/02/18 # Bowel Movements 0 Narrative: obtunder pupil = not moving much at all and ru not so much to pain - Urinary Catheter Management Female External Cath placed during this visit: no Reason for continuing: Not indwelling catheter Indwelling Urethral Catheter Cath placed during this visit: yes Reason for continuing: Hourly intake/output Insertion date: 06/05/18 Insertion time: 08:30 Objective Laboratory Results - last 24 hr 06/07/18 06/08/18 06/08/18 17:09 03:16 05:48 WBC 13.5 H RBC 3.29 L Hgb 11.3 L Hct 33.2 L MCV 100.8 H MCH 34.3 H MCHC 34.0 RDW 14.3 Plt Count MPV 8.1 Prelim Diff (Auto) Slide review pending Neut % (Auto) 82.7 H Lymph % (Auto) 8.2 L [place] % (Auto) 8.9 H Eos % (Auto) 0.1 Baso % (Auto) 0.1 Neut # (Auto) 11.2 H Lymph # (Auto) 1.1 [place] # (Auto) 1.2 H Eos # (Auto) 0.0 Baso # (Auto) 0.0 WBC Differential Manual diff final Seg Neuts % (Manual) 80 H Band Neuts % (Manual) 4 Lymphocytes % (Manual) 8 L Monocytes % (Manual) 7 Promyelocytes % (Man) 1 H Abs Neuts (Manual) 11.5 H Differential Comment . Platelet Estimate Normal Platelet Morphology Clumped H Keratocytes Occ H Sodium 141 Potassium 3.4 L 3.0 L Chloride 107 Carbon Dioxide 22.7 Anion Gap 11 BUN 9 Creatinine 0.30 L Estimated GFR Greater than 89 Random Glucose 99 Calcium 7.9 L Phosphorus 1.8 L Magnesium 1.9 2.0 Phenytoin 8.4 L Review/Management - Review/Management Plan: imp improved MS mary on case i dw dr langston the medulla abn and he is aware fu eeg -- 06/01/18 eeg neg stable neuro vent size looks stable on cta check platelet plavix fxt for or monday - 06/07/18 sp sz post op post crani eeg breech dil 9.7 free dil 17 so good level mets on chest ct? path pend medullary area is a flow void not mass i agree on film review 06/08/18 no more sz dil ok defer to [facility]
--- NOTE | 2018-06-08 11:04 | P.PNCC ---
Subjective Subjective Remarks/Hospital Course: Patient is a 78-year-old female with past medical history significant for hypertension, peripheral arterial disease, history of vascular intervention/ stenting, arthritis who presented to the [facility] with mostly nonspecific complaints of memory loss and hallucinations for 1 week and worsening tremors of the right arm. Further workup in the emergency department showed subacute intraventricular hemorrhage into the left lateral ventricle and a focal thrombus that may be obstructing foramina of [place]. There was enlargement of the left lateral ventricle compared to the prior MRI. Also trace blood in the occipital horn of left lateral ventricle. With evidence of intraventricular hemorrhage patient was transferred emergently to [facility] for neurosurgery consult. I evaluated the patient after arrival to the ICU. Patient is profoundly hypertensive systolic blood pressure 190-200. IV labetalol 20 mg IV push given followed by Cardene infusion started. On exam patient did not appear to be in distress. No definite focal deficit however patient is oriented only to person. Reviewed CT scan with neurosurgery Dr. Palacios. On his review CT shows 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 hemorrhagic mass at foramen of Bell with asymmetric left sided ventricular dilatation. Stat MRI of the brain with and without contrast ordered. Started on Cardene infusion with target systolic blood pressure less than 140 05/30/18: MRI brain showed 2.3 x 1.7 cm mass within the body of the left lateral ventricle measuring 2.3 x 1.7 cm left lateral ventricle is prominent may be related to production of CSF from this mass. 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 Additional mass in the cerebellopontine angle on the left compressing upon the brainstem measuring 1.8 x 1.4 cm. Slightly more agitated and confused today. Partly secondary to mass partly could be alcohol withdrawal. Placed on as needed Haldol 05/31: Patient remains sedated received Ativan a few hours before. Currently for that reason Precedex is being held. Wakes up follows some commands. Oriented to person only. Plan for craniotomy and resection of intraventricular mass scheduled tentatively for Monday. Ct chest: 1.6 x 1.1 cm spiculated RUL nodule concerning for metastasis or primary lung malignancy. 1.1 x 1.4 cm soft tissue density inferior lateral margin of the right breast implant ?focal disruption vs breast mass. CT abdomen pelvis: 1.3 cm left adrenal mass concerning for metastatic disease given findings of brain and lung mass. 1.6 cm indeterminate low-density lesion in the posterior right lobe of the liver with numerous additional subcentimeter hypodense lesions which are too small to fully characterize. Metastatic disease cannot be entirely excluded, possibly cysts. 06/01: Remains confused slightly agitated remains on Precedex. CT angiogram yesterday of the brain showed previously demonstrated intraventricular mass however no cerebellopontine angle mass. WBC count elevated to 19.1 no fever. Will check UA-previously ordered UA had not been done. Check blood cultures, chest x-ray is clear. Continue to hold Plavix 06/02: Plan is for resection of brain mass on Monday. Patient continues breathing comfortably. 06/03: Ready for OR. Labs are in order. INR 1.1. Plavix effect noted on . 06/04: Coagulation profile normal. Patient scheduled for surgery tomorrow. No new complaints. 06/05: Patient seen in PACU shortly after surgery. Brief generalized seizure terminated with Ativan 1 mg. Patient loaded with Cerebyx 1 g. Neurologic exam nonfocal at this time. Pupils pinpoint. Required reintubation due to somnolence. 06/06: T-max 100.8. Currently afebrile. Patient arousable on the ventilator. Hypotensive requiring 1 L bolus normal saline. MRI brain pending. EEG ongoing. Subjective 06/07: T-max 100.6. Currently 99.8. MRI brain showed postsurgical change with no increased hemorrhage noted. Replacing potassium, phosphorus and magnesium currently. Dexmedetomidine drip is currently off. Noted some breech with EEG yesterday. Dilantin level therapeutic. 06/08: All sedation off for about 24 hours. She will open her eyes to stimulation. Withdraws 4 limbs to stimulation but right upper extremity appears weaker. Dilantin level is therapeutic and no more seizures. We will attempt to extubate when she can control her airway. Presently too somnolent. Objective Vital Signs / I&O: Vital Signs 06/07/18 11:00 06/07/18 11:17 06/07/18 11:30 Temperature Pulse Rate 95 H 95 H 107 H Respiratory Rate 27 H 19 24 Blood Pressure 169/74 H 182/74 H 155/69 H Pulse Oximetry 97 96 96 06/07/18 11:47 06/07/18 11:55 06/07/18 11:56 Temperature Pulse Rate 104 H 97 H Respiratory Rate 24 32 H 25 H Blood Pressure 169/73 H Pulse Oximetry 97 96 06/07/18 12:00 06/07/18 12:12 06/07/18 12:30 Temperature Pulse Rate 110 H 111 H 110 H Respiratory Rate 24 24 22 Blood Pressure 185/78 H 158/69 H 155/68 H Pulse Oximetry 99 99 99 06/07/18 13:00 06/07/18 13:30 06/07/18 14:00 Temperature Pulse Rate 107 H 119 H 118 H Respiratory Rate 16 18 22 Blood Pressure 150/67 H 165/71 H 169/72 H Pulse Oximetry 97 95 95 06/07/18 14:30 06/07/18 14:45 06/07/18 15:00 Temperature Pulse Rate 102 H 114 H 115 H Respiratory Rate 16 16 16 Blood Pressure 127/60 161/72 H 155/67 H Pulse Oximetry 98 98 97 06/07/18 15:15 06/07/18 15:30 06/07/18 15:42 Temperature Pulse Rate 117 H 101 H 98 H Respiratory Rate 20 16 16 Blood Pressure 148/65 H 151/66 H Pulse Oximetry 97 98 98 06/07/18 15:45 06/07/18 16:00 06/07/18 16:15 Temperature 99.2 F Pulse Rate 103 H 119 H 114 H Respiratory Rate 16 20 17 Blood Pressure 137/63 162/70 H 153/65 H Pulse Oximetry 99 99 99 06/07/18 16:30 06/07/18 16:45 06/07/18 17:00 Temperature Pulse Rate 113 H 114 H 120 H Respiratory Rate 17 16 19 Blood Pressure 138/63 141/61 H 139/63 Pulse Oximetry 99 96 95 06/07/18 17:15 06/07/18 17:30 06/07/18 17:45 Temperature Pulse Rate 111 H 116 H 118 H Respiratory Rate 16 16 16 Blood Pressure 146/63 H 134/63 150/67 H Pulse Oximetry 96 96 96 06/07/18 18:00 06/07/18 18:15 06/07/18 18:30 Temperature Pulse Rate 113 H 122 H 123 H Respiratory Rate 16 16 24 Blood Pressure 143/62 H 145/65 H 141/55 H Pulse Oximetry 96 96 95 06/07/18 18:45 06/07/18 19:00 06/07/18 19:15 Temperature Pulse Rate 113 H 118 H 117 H Respiratory Rate 16 16 24 Blood Pressure 121/63 135/58 L 132/61 Pulse Oximetry 96 95 95 06/07/18 19:30 06/07/18 19:43 06/07/18 19:45 Temperature Pulse Rate 116 H 117 H 116 H Respiratory Rate 16 16 16 Blood Pressure 145/63 H 151/64 H Pulse Oximetry 92 L 92 L 91 L 06/07/18 20:00 06/07/18 20:15 06/07/18 20:30 Temperature Pulse Rate 121 H 100 H 90 Respiratory Rate 17 16 16 Blood Pressure 152/67 H 129/61 112/53 L Pulse Oximetry 98 96 97 06/07/18 20:45 06/07/18 21:00 06/07/18 21:15 Temperature Pulse Rate 86 89 92 H Respiratory Rate 16 16 16 Blood Pressure 114/55 L 114/56 L 128/60 Pulse Oximetry 95 95 06/07/18 21:30 06/07/18 21:45 06/07/18 22:00 Temperature 98.4 F Pulse Rate 91 H 98 H 94 H Respiratory Rate 16 16 16 Blood Pressure 121/56 L 136/61 131/56 L Pulse Oximetry 96 96 96 06/07/18 22:15 06/07/18 22:30 06/07/18 22:45 Temperature Pulse Rate 97 H 106 H 99 H Respiratory Rate 16 16 16 Blood Pressure 140/65 146/55 H 143/63 H Pulse Oximetry 96 96 97 06/07/18 23:00 06/07/18 23:15 06/07/18 23:21 Temperature Pulse Rate 107 H 108 H 97 H Respiratory Rate 16 18 16 Blood Pressure 140/64 165/74 H Pulse Oximetry 96 96 06/07/18 23:30 06/07/18 23:45 06/08/18 00:00 Temperature Pulse Rate 103 H 96 H 103 H Respiratory Rate 16 16 16 Blood Pressure 142/65 H 158/71 H 138/64 Pulse Oximetry 98 97 96 06/08/18 00:15 06/08/18 00:30 06/08/18 00:45 Temperature Pulse Rate 98 H 112 H 76 Respiratory Rate 16 16 17 Blood Pressure 166/72 H 158/66 H 169/70 H Pulse Oximetry 96 96 96 06/08/18 01:00 06/08/18 01:14 06/08/18 01:15 Temperature Pulse Rate 105 H 103 H Respiratory Rate 16 16 16 Blood Pressure 151/67 H 142/65 H Pulse Oximetry 96 96 96 06/08/18 01:30 06/08/18 01:45 06/08/18 02:00 Temperature Pulse Rate 100 H 106 H 115 H Respiratory Rate 16 16 16 Blood Pressure 120/57 L 134/64 143/67 H Pulse Oximetry 96 97 97 06/08/18 02:15 06/08/18 02:30 06/08/18 02:45 Temperature Pulse Rate 105 H 106 H 106 H Respiratory Rate 16 18 16 Blood Pressure 149/71 H 151/70 H 143/65 H Pulse Oximetry 97 96 96 06/08/18 03:00 06/08/18 03:15 06/08/18 03:30 Temperature Pulse Rate 105 H 101 H 95 H Respiratory Rate 16 16 16 Blood Pressure 158/70 H 154/71 H 163/70 H Pulse Oximetry 94 L 93 L 93 L 06/08/18 03:34 06/08/18 03:35 06/08/18 03:45 Temperature Pulse Rate 103 H 95 H Respiratory Rate 18 18 16 Blood Pressure 138/53 L Pulse Oximetry 93 L 98 06/08/18 04:00 06/08/18 04:15 06/08/18 04:30 Temperature Pulse Rate 105 H 112 H 105 H Respiratory Rate 16 16 16 Blood Pressure 151/68 H 167/72 H 163/67 H Pulse Oximetry 98 95 95 06/08/18 04:45 06/08/18 05:00 06/08/18 05:15 Temperature Pulse Rate 110 H 101 H 114 H Respiratory Rate 16 16 17 Blood Pressure 162/68 H 152/69 H 162/67 H Pulse Oximetry 95 96 96 06/08/18 05:30 06/08/18 05:45 06/08/18 06:00 Temperature Pulse Rate 105 H 106 H 115 H Respiratory Rate 16 25 H 16 Blood Pressure 160/70 H 153/67 H 169/74 H Pulse Oximetry 96 96 95 06/08/18 07:00 06/08/18 07:15 06/08/18 07:30 Temperature 100.5 F H Pulse Rate 105 H 108 H 108 H Respiratory Rate 16 16 16 Blood Pressure 151/64 H 153/70 H 127/57 L Pulse Oximetry 95 95 94 L 06/08/18 07:38 06/08/18 07:45 06/08/18 08:00 Temperature Pulse Rate 103 H 99 H 111 H Respiratory Rate 16 16 13 Blood Pressure 142/65 H 157/67 H Pulse Oximetry 94 L 97 94 L 06/08/18 08:15 06/08/18 08:30 06/08/18 08:45 Temperature Pulse Rate 122 H 108 H 90 Respiratory Rate 21 13 12 Blood Pressure 168/67 H 147/67 H 125/58 L Pulse Oximetry 95 96 95 06/08/18 09:00 06/08/18 09:15 06/08/18 09:30 Temperature Pulse Rate 91 H 91 H 83 Respiratory Rate 13 13 14 Blood Pressure 149/63 H 139/59 L 153/71 H Pulse Oximetry 95 96 98 06/08/18 09:45 06/08/18 10:00 06/08/18 10:15 Temperature Pulse Rate 89 98 H 84 Respiratory Rate 16 21 12 Blood Pressure 145/69 H 162/71 H 145/55 H Pulse Oximetry 97 95 96 06/08/18 10:30 Temperature Pulse Rate 87 Respiratory Rate 13 Blood Pressure 146/66 H Pulse Oximetry 95 Intake & Output 06/07/18 06/08/18 06/08/18 18:59 06:59 18:59 Intake Total 1513 / 1513 1359 / 1359 150 / 150 Output Total 1445 / 1445 1260 / 1260 Balance 68 / 68 99 / 99 150 / 150 Weight 62.6 kg Intake: IV 1513 / 1513 1359 / 1359 150 / 150 Cleviprex Inj 25 mg In 50 ml @ 100 / 100 150 / 150 50 / 50 1 MG/HR 2 mls/hr IV.CONT TITRATE PRN Rx#:[id number] NS Inj 1,000 ML @ 84 mls/hr IV. 796 / 796 1000 / 1000 CONT .[id number] [facility] Rx#:[id number] Cerebyx Inj 100 MGPE In NS Inj 52 / 52 104 / 104 50 ML @ 208 mls/hr IV.SIG Q8HR [facility] Rx#:[id number] Magnesium Sulfate Inj 2 GM In 100 / 100 NS Inj 96 ML @ 50 mls/hr IV.SIG ONCE ONE Rx#:[id number] KCl 20 mEq Premix Inj 20 meq In 100 / 100 100 / 100 100 ml @ 50 mls/hr IV.SIG Q2H PRN Rx#:[id number] Potassium Phosphate Inj 30 MMOL 260 / 260 In NS Inj 250 ML @ 43.333 mls/ hr IV.SIG ONCE ONE Rx#:[id number] Keppra Inj 500 MG In NS Inj 100 105 / 105 105 / 105 ML @ 400 mls/hr IV.SIG Q12H [facility] Rx#:[id number] Output: Urine Amount (Catheter) 1400 / 1400 1200 / 1200 Indwelling Urethral Catheter 1400 / 1400 1200 / 1200 Gastric Drainage 0 / 0 Orogastric Tube 0 / 0 Wound Drainage 45 / 45 60 / 60 # 1 Left Head 45 / 45 60 / 60 Other: Date of Last Bowel Movement 06/02/18 06/02/18 06/02/18 # Bowel Movements 0 Result Diagrams: 06/08/18 05:48 06/08/18 03:16 Objective Remarks: GENERAL: This is a 78-year-old female SKIN: Warm and dry. HEAD: Atraumatic. Normocephalic. EYES: Pupils equal and round. About 2 mm bilaterally and reactive, no scleral icterus. No injection or drainage. ENT: No nasal bleeding or discharge. Mucous membranes pink and moist. NECK: Trachea midline. Orotracheal intubation CARDIOVASCULAR: Regular rate and rhythm. S1, S2 no S 4. RESPIRATORY: Normal excursions on mechanical ventilation. Clear to auscultation. Breath sounds equal bilaterally. GASTROINTESTINAL: Abdomen soft, non-tender, nondistended. No guarding, bowel sounds active. MUSCULOSKELETAL: Extremities without clubbing, cyanosis, or edema. Warm, well- perfused NEUROLOGICAL: Positive cough and gag. Pupils reactive. Arousable on the ventilator moves all 4 extremities weakly but currently not following commands. Localizing. GENERAL: SKIN: Warm and dry. HEAD: Atraumatic. Normocephalic. EYES: Pupils equal and round. No scleral icterus. No injection or drainage. ENT: No nasal bleeding or discharge. Mucous membranes pink and moist. NECK: Trachea midline. No JVD. CARDIOVASCULAR: Regular rate and rhythm. RESPIRATORY: No accessory muscle use. Clear to auscultation. Breath sounds equal bilaterally. GASTROINTESTINAL: Abdomen soft, non-tender, nondistended. Hepatic and splenic margins not palpable. MUSCULOSKELETAL: Extremities without clubbing, cyanosis, or edema. No obvious deformities. NEUROLOGICAL: Awake and alert. No obvious cranial nerve deficits. Motor grossly within normal limits. Five out of 5 muscle strength in the arms and legs. Normal speech. PSYCHIATRIC: Appropriate mood and affect; insight and judgment normal. Assessment and Plan - Problem List (1) Intraventricular hemorrhage, nontraumatic Code(s): I61.5 - Nontraumatic intracerebral hemorrhage, intraventricular Status: Acute (2) Hypertensive emergency Code(s): I16.1 - Hypertensive emergency Status: Acute (3) Metabolic encephalopathy Code(s): G93.41 - Metabolic encephalopathy Status: Acute (4) Altered mental status Code(s): R41.82 - Altered mental status, unspecified Status: Acute (5) History of peripheral arterial disease Code(s): Z86.79 - Personal history of other diseases of the circulatory system Status: Chronic (6) History of hypertension Code(s): Z86.79 - Personal history of other diseases of the circulatory system Status: Chronic (7) Cessation of tobacco use in previous 12 months Code(s): Z87.891 - Personal history of nicotine dependence Status: Chronic - Assessment and Plan Plan: NEURO/psych: 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 -Status post left craniotomy resection of tumor 06/0506/04/2018 (program will be held for 7 days prior to surgery) -Oncology consult, also CT chest abdomen pelvis -right upper lobe mass with probable adrenal metastases cannot rule out liver metastases -Tight blood pressure control with nicardipine e and IV labetalol as needed, and PO meds, see below -Keep systolic blood pressure less than 150 -Supplement multivitamin thiamine given daily alcohol use -Watch closely for alcohol withdrawal -Mild alcohol withdrawal contributing to agitation -Use expected for agitation, Haldol as needed -EEG originally negative for seizures -Repeat EEG 06/06 field possible left frontal breakthrough. Loaded with fosphenytoin 1 g.. Start on 100 mg 3 times daily recheck level in a.m was 9.2 with free level around 17. Continue per neurology. -MRA 06/06 brain revealed left lateral ventricle resection, intervertebral hemorrhage slightly decreased. Small subdural hematoma. Postsurgical. Rightward shift 5 mm. -No new seizures. RESP: Acute respiratory failure Previous tobacco use Right upper lobe speak with a mass -PRVC ventilation with ventilator bundle/head of bed at 30 degrees -Albuterol/ipratropium aerosols every 4 hours scheduled and as needed albuterol aerosols every 2 hours as needed -Pulmonology consulted for right upper lobe mass concerning for primary malignancy, with adrenal mass -Pulmonary Dr. Evans suggesting CT-guided biopsy and PET scan once clinically more stable and neuro surgery completed -Reintubated and ISC after PACU 06/05. -Spontaneous breathing trials today again, attempt extubation when she can protect her airway. CV: Hypertensive emergency History of hypertension Peripheral arterial disease -Normal saline IV fluids 84 mL/h -Cardene infusion and, IV labetalol as needed for systolic blood pressure less than 150 -Continue home enalapril 40 mg daily and amlodipine 5 mg daily, continue pravastatin 40 mg daily. Added metoprolol treat 50 mg twice daily -Continue holding clopidogrel until cleared by neurosurgery -Decrease platelet activity noted on 06/01 -INR, PT, PTT normal - GI: Left adrenal mass 1.3 x 1.2 cm Colonic diverticulosis Right liver mass versus cyst -Currently n.p.o. status, metoprolol for GI prophylax. Dexatrim/senna 1 tablet twice daily for bowel regimen -Start tube feedings today. if not extubated. : -Monitor renal function closely. ID: -No indication for antibiotics at this time status post cefazolin HEME: Leukocytosis Macrocytic anemia -Oncology. 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 Kapadia FEN/ENDO: Hypokalemia -Electrolyte replacement per protocol PROPH: -Bilateral lower extremity SCDs. Avoid chemical DVT prophylaxis until after surgery. LINES: -Utilize peripheral IVs, central line if needed Overall impression: Following anticipated postoperative course following her pre -operative somnolent state. Will attempt to extubate when we think she can protect her airway. Continue nutrition and seizure treatment. (4) Altered mental status Qualifiers: Altered mental status type: unspecified Qualified Code(s): R41.82 - Altered mental status, unspecified
--- NOTE | 2018-06-08 11:24 | P.PNNS ---
Subjective Interval history: remains intubated, no ICP issues overnight, no seizures. <Samanta Banda - Last Filed: 06/08/18 11:17> Physical Exam Vital signs: Vital Signs 06/07/18 11:30 06/07/18 11:47 06/07/18 11:55 Temperature Pulse Rate 107 H 104 H Respiratory Rate 24 24 32 H Blood Pressure 155/69 H 169/73 H Pulse Oximetry 96 97 96 06/07/18 11:56 06/07/18 12:00 06/07/18 12:12 Temperature Pulse Rate 97 H 110 H 111 H Respiratory Rate 25 H 24 24 Blood Pressure 185/78 H 158/69 H Pulse Oximetry 99 99 06/07/18 12:30 06/07/18 13:00 06/07/18 13:30 Temperature Pulse Rate 110 H 107 H 119 H Respiratory Rate 22 16 18 Blood Pressure 155/68 H 150/67 H 165/71 H Pulse Oximetry 99 97 95 06/07/18 14:00 06/07/18 14:30 06/07/18 14:45 Temperature Pulse Rate 118 H 102 H 114 H Respiratory Rate 22 16 16 Blood Pressure 169/72 H 127/60 161/72 H Pulse Oximetry 95 98 98 06/07/18 15:00 06/07/18 15:15 06/07/18 15:30 Temperature Pulse Rate 115 H 117 H 101 H Respiratory Rate 16 20 16 Blood Pressure 155/67 H 148/65 H 151/66 H Pulse Oximetry 97 97 98 06/07/18 15:42 06/07/18 15:45 06/07/18 16:00 Temperature 99.2 F Pulse Rate 98 H 103 H 119 H Respiratory Rate 16 16 20 Blood Pressure 137/63 162/70 H Pulse Oximetry 98 99 99 06/07/18 16:15 06/07/18 16:30 06/07/18 16:45 Temperature Pulse Rate 114 H 113 H 114 H Respiratory Rate 17 17 16 Blood Pressure 153/65 H 138/63 141/61 H Pulse Oximetry 99 99 96 06/07/18 17:00 06/07/18 17:15 06/07/18 17:30 Temperature Pulse Rate 120 H 111 H 116 H Respiratory Rate 19 16 16 Blood Pressure 139/63 146/63 H 134/63 Pulse Oximetry 95 96 96 06/07/18 17:45 06/07/18 18:00 01/24/19 18:15 Temperature Pulse Rate 118 H 113 H 122 H Respiratory Rate 16 16 16 Blood Pressure 150/67 H 143/62 H 145/65 H Pulse Oximetry 96 96 96 06/07/18 18:30 06/07/18 18:45 06/07/18 19:00 Temperature Pulse Rate 123 H 113 H 118 H Respiratory Rate 24 16 16 Blood Pressure 141/55 H 121/63 135/58 L Pulse Oximetry 95 96 95 06/07/18 19:15 06/07/18 19:30 06/07/18 19:43 Temperature Pulse Rate 117 H 116 H 117 H Respiratory Rate 24 16 16 Blood Pressure 132/61 145/63 H Pulse Oximetry 95 92 L 92 L 06/07/18 19:45 06/07/18 20:00 06/07/18 20:15 Temperature Pulse Rate 116 H 121 H 100 H Respiratory Rate 16 17 16 Blood Pressure 151/64 H 152/67 H 129/61 Pulse Oximetry 91 L 98 96 06/07/18 20:30 06/07/18 20:45 06/07/18 21:00 Temperature Pulse Rate 90 86 89 Respiratory Rate 16 16 16 Blood Pressure 112/53 L 114/55 L 114/56 L Pulse Oximetry 97 95 06/07/18 21:15 06/07/18 21:30 06/07/18 21:45 Temperature Pulse Rate 92 H 91 H 98 H Respiratory Rate 16 16 16 Blood Pressure 128/60 121/56 L 136/61 Pulse Oximetry 95 96 96 06/07/18 22:00 06/07/18 22:15 06/07/18 22:30 Temperature 98.4 F Pulse Rate 94 H 97 H 106 H Respiratory Rate 16 16 16 Blood Pressure 131/56 L 140/65 146/55 H Pulse Oximetry 96 96 96 06/07/18 22:45 06/07/18 23:00 06/07/18 23:15 Temperature Pulse Rate 99 H 107 H 108 H Respiratory Rate 16 16 18 Blood Pressure 143/63 H 140/64 165/74 H Pulse Oximetry 97 96 96 06/07/18 23:21 06/07/18 23:30 06/07/18 23:45 Temperature Pulse Rate 97 H 103 H 96 H Respiratory Rate 16 16 16 Blood Pressure 142/65 H 158/71 H Pulse Oximetry 98 97 06/08/18 00:00 06/08/18 00:15 06/08/18 00:30 Temperature Pulse Rate 103 H 98 H 112 H Respiratory Rate 16 16 16 Blood Pressure 138/64 166/72 H 158/66 H Pulse Oximetry 96 96 96 06/08/18 00:45 06/08/18 01:00 06/08/18 01:14 Temperature Pulse Rate 76 105 H Respiratory Rate 17 16 16 Blood Pressure 169/70 H 151/67 H Pulse Oximetry 96 96 96 06/08/18 01:15 06/08/18 01:30 06/08/18 01:45 Temperature Pulse Rate 103 H 100 H 106 H Respiratory Rate 16 16 16 Blood Pressure 142/65 H 120/57 L 134/64 Pulse Oximetry 96 96 97 06/08/18 02:00 06/08/18 02:15 06/08/18 02:30 Temperature Pulse Rate 115 H 105 H 106 H Respiratory Rate 16 16 18 Blood Pressure 143/67 H 149/71 H 151/70 H Pulse Oximetry 97 97 96 06/08/18 02:45 06/08/18 03:00 06/08/18 03:15 Temperature Pulse Rate 106 H 105 H 101 H Respiratory Rate 16 16 16 Blood Pressure 143/65 H 158/70 H 154/71 H Pulse Oximetry 96 94 L 93 L 06/08/18 03:30 06/08/18 03:34 06/08/18 03:35 Temperature Pulse Rate 95 H 103 H Respiratory Rate 16 18 18 Blood Pressure 163/70 H Pulse Oximetry 93 L 93 L 06/08/18 03:45 06/08/18 04:00 06/08/18 04:15 Temperature Pulse Rate 95 H 105 H 112 H Respiratory Rate 16 16 16 Blood Pressure 138/53 L 151/68 H 167/72 H Pulse Oximetry 98 98 95 06/08/18 04:30 06/08/18 04:45 06/08/18 05:00 Temperature Pulse Rate 105 H 110 H 101 H Respiratory Rate 16 16 16 Blood Pressure 163/67 H 162/68 H 152/69 H Pulse Oximetry 95 95 96 06/08/18 05:15 06/08/18 05:30 06/08/18 05:45 Temperature Pulse Rate 114 H 105 H 106 H Respiratory Rate 17 16 25 H Blood Pressure 162/67 H 160/70 H 153/67 H Pulse Oximetry 96 96 96 01/25/19 06:00 06/08/18 07:00 06/08/18 07:15 Temperature 100.5 F H Pulse Rate 115 H 105 H 108 H Respiratory Rate 16 16 16 Blood Pressure 169/74 H 151/64 H 153/70 H Pulse Oximetry 95 95 95 06/08/18 07:30 06/08/18 07:38 06/08/18 07:45 Temperature Pulse Rate 108 H 103 H 99 H Respiratory Rate 16 16 16 Blood Pressure 127/57 L 142/65 H Pulse Oximetry 94 L 94 L 97 06/08/18 08:00 06/08/18 08:15 06/08/18 08:30 Temperature Pulse Rate 111 H 122 H 108 H Respiratory Rate 13 21 13 Blood Pressure 157/67 H 168/67 H 147/67 H Pulse Oximetry 94 L 95 96 06/08/18 08:45 06/08/18 09:00 06/08/18 09:15 Temperature Pulse Rate 90 91 H 91 H Respiratory Rate 12 13 13 Blood Pressure 125/58 L 149/63 H 139/59 L Pulse Oximetry 95 95 96 06/08/18 09:30 06/08/18 09:45 06/08/18 10:00 Temperature Pulse Rate 83 89 98 H Respiratory Rate 14 16 21 Blood Pressure 153/71 H 145/69 H 162/71 H Pulse Oximetry 98 97 95 06/08/18 10:15 06/08/18 10:30 06/08/18 10:45 Temperature Pulse Rate 84 87 98 H Respiratory Rate 12 13 14 Blood Pressure 145/55 H 146/66 H 139/63 Pulse Oximetry 96 95 97 06/08/18 11:00 Temperature Pulse Rate 92 H Respiratory Rate 13 Blood Pressure 141/52 H Pulse Oximetry 96 Intake & Output 06/07/18 06/08/18 06/08/18 18:59 06:59 18:59 Intake Total 1513 / 1513 1359 / 1359 150 / 150 Output Total 1445 / 1445 1260 / 1260 Balance 68 / 68 99 / 99 150 / 150 Weight 62.6 kg Intake: IV 1513 / 1513 1359 / 1359 150 / 150 Cleviprex Inj 25 mg In 50 ml @ 100 / 100 150 / 150 50 / 50 1 MG/HR 2 mls/hr IV.CONT TITRATE PRN Rx#:[id number] NS Inj 1,000 ML @ 84 mls/hr IV. 796 / 796 1000 / 1000 CONT .[id number] [facility] Rx#:[id number] Cerebyx Inj 100 MGPE In NS Inj 52 / 52 104 / 104 50 ML @ 208 mls/hr IV.SIG Q8HR [facility] Rx#:[id number] Magnesium Sulfate Inj 2 GM In 100 / 100 NS Inj 96 ML @ 50 mls/hr IV.SIG ONCE ONE Rx#:[id number] KCl 20 mEq Premix Inj 20 meq In 100 / 100 100 / 100 100 ml @ 50 mls/hr IV.SIG Q2H PRN Rx#:[id number] Potassium Phosphate Inj 30 MMOL 260 / 260 In NS Inj 250 ML @ 43.333 mls/ hr IV.SIG ONCE ONE Rx#:[id number] Keppra Inj 500 MG In NS Inj 100 105 / 105 105 / 105 ML @ 400 mls/hr IV.SIG Q12H [facility] Rx#:[id number] Output: Urine Amount (Catheter) 1400 / 1400 1200 / 1200 Indwelling Urethral Catheter 1400 / 1400 1200 / 1200 Gastric Drainage 0 / 0 Orogastric Tube 0 / 0 Wound Drainage 45 / 45 60 / 60 # 1 Left Head 45 / 45 60 / 60 Other: Date of Last Bowel Movement 06/02/18 06/02/18 06/02/18 # Bowel Movements 0 Narrative: patient is intubated and currently sedated, precedex drip held when seen. she does open eyes and follows simple commands x 4 extremities. pupils are equal. wound with dressing clean dry and intact. Ventriculostomy drain in place draining well at 10 mmHg. ICPs controlled. CSF dark red, clearing up. - Urinary Catheter Management Female External Cath placed during this visit: no Reason for continuing: Not indwelling catheter Indwelling Urethral Catheter Cath placed during this visit: yes Reason for continuing: Hourly intake/output Insertion date: 06/05/18 Insertion time: 08:30 <Samanta Banda - Last Filed: 06/08/18 11:17> Vital signs: Vital Signs 06/07/18 20:45 06/07/18 21:00 06/07/18 21:15 Temperature Pulse Rate 86 89 92 H Respiratory Rate 16 16 16 Blood Pressure 114/55 L 114/56 L 128/60 Pulse Oximetry 95 95 06/07/18 21:30 06/07/18 21:45 06/07/18 22:00 Temperature 98.4 F Pulse Rate 91 H 98 H 94 H Respiratory Rate 16 16 16 Blood Pressure 121/56 L 136/61 131/56 L Pulse Oximetry 96 96 96 06/07/18 22:15 06/07/18 22:30 06/07/18 22:45 Temperature Pulse Rate 97 H 106 H 99 H Respiratory Rate 16 16 16 Blood Pressure 140/65 146/55 H 143/63 H Pulse Oximetry 96 96 97 06/07/18 23:00 06/07/18 23:15 06/07/18 23:21 Temperature Pulse Rate 107 H 108 H 97 H Respiratory Rate 16 18 16 Blood Pressure 140/64 165/74 H Pulse Oximetry 96 96 06/07/18 23:30 06/07/18 23:45 06/08/18 00:00 Temperature Pulse Rate 103 H 96 H 103 H Respiratory Rate 16 16 16 Blood Pressure 142/65 H 158/71 H 138/64 Pulse Oximetry 98 97 96 06/08/18 00:15 06/08/18 00:30 06/08/18 00:45 Temperature Pulse Rate 98 H 112 H 76 Respiratory Rate 16 16 17 Blood Pressure 166/72 H 158/66 H 169/70 H Pulse Oximetry 96 96 96 06/08/18 01:00 06/08/18 01:14 06/08/18 01:15 Temperature Pulse Rate 105 H 103 H Respiratory Rate 16 16 16 Blood Pressure 151/67 H 142/65 H Pulse Oximetry 96 96 96 06/08/18 01:30 06/08/18 01:45 06/08/18 02:00 Temperature Pulse Rate 100 H 106 H 115 H Respiratory Rate 16 16 16 Blood Pressure 120/57 L 134/64 143/67 H Pulse Oximetry 96 97 97 06/08/18 02:15 06/08/18 02:30 06/08/18 02:45 Temperature Pulse Rate 105 H 106 H 106 H Respiratory Rate 16 18 16 Blood Pressure 149/71 H 151/70 H 143/65 H Pulse Oximetry 97 96 96 06/08/18 03:00 06/08/18 03:15 06/08/18 03:30 Temperature Pulse Rate 105 H 101 H 95 H Respiratory Rate 16 16 16 Blood Pressure 158/70 H 154/71 H 163/70 H Pulse Oximetry 94 L 93 L 93 L 06/08/18 03:34 06/08/18 03:35 06/08/18 03:45 Temperature Pulse Rate 103 H 95 H Respiratory Rate 18 18 16 Blood Pressure 138/53 L Pulse Oximetry 93 L 98 06/08/18 04:00 06/08/18 04:15 06/08/18 04:30 Temperature Pulse Rate 105 H 112 H 105 H Respiratory Rate 16 16 16 Blood Pressure 151/68 H 167/72 H 163/67 H Pulse Oximetry 98 95 95 06/08/18 04:45 06/08/18 05:00 06/08/18 05:15 Temperature Pulse Rate 110 H 101 H 114 H Respiratory Rate 16 16 17 Blood Pressure 162/68 H 152/69 H 162/67 H Pulse Oximetry 95 96 96 06/08/18 05:30 06/08/18 05:45 06/08/18 06:00 Temperature Pulse Rate 105 H 106 H 115 H Respiratory Rate 16 25 H 16 Blood Pressure 160/70 H 153/67 H 169/74 H Pulse Oximetry 96 96 95 06/08/18 07:00 06/08/18 07:15 06/08/18 07:30 Temperature 100.5 F H Pulse Rate 105 H 108 H 108 H Respiratory Rate 16 16 16 Blood Pressure 151/64 H 153/70 H 127/57 L Pulse Oximetry 95 95 94 L 06/08/18 07:38 06/08/18 07:45 06/08/18 08:00 Temperature Pulse Rate 103 H 99 H 111 H Respiratory Rate 16 16 13 Blood Pressure 142/65 H 157/67 H Pulse Oximetry 94 L 97 94 L 06/08/18 08:15 06/08/18 08:30 06/08/18 08:45 Temperature Pulse Rate 122 H 108 H 90 Respiratory Rate 21 13 12 Blood Pressure 168/67 H 147/67 H 125/58 L Pulse Oximetry 95 96 95 06/08/18 09:00 06/08/18 09:15 06/08/18 09:30 Temperature Pulse Rate 91 H 91 H 83 Respiratory Rate 13 13 14 Blood Pressure 149/63 H 139/59 L 153/71 H Pulse Oximetry 95 96 98 06/08/18 09:45 06/08/18 10:00 06/08/18 10:15 Temperature Pulse Rate 89 98 H 84 Respiratory Rate 16 21 12 Blood Pressure 145/69 H 162/71 H 145/55 H Pulse Oximetry 97 95 96 06/08/18 10:30 06/08/18 10:45 06/08/18 11:00 Temperature Pulse Rate 87 98 H 92 H Respiratory Rate 13 14 13 Blood Pressure 146/66 H 139/63 141/52 H Pulse Oximetry 95 97 96 06/08/18 11:15 06/08/18 11:30 06/08/18 11:45 Temperature Pulse Rate 95 H 96 H 99 H Respiratory Rate 13 14 13 Blood Pressure 154/66 H 141/63 H 141/63 H Pulse Oximetry 98 96 97 06/08/18 12:00 06/08/18 12:09 06/08/18 12:15 Temperature 98.9 F Pulse Rate 110 H 108 H 91 H Respiratory Rate 20 16 13 Blood Pressure 161/69 H 129/60 Pulse Oximetry 96 97 100 06/08/18 12:30 06/08/18 12:45 06/08/18 13:00 Temperature Pulse Rate 102 H 107 H 106 H Respiratory Rate 22 20 20 Blood Pressure 135/63 160/69 H 143/65 H Pulse Oximetry 99 98 98 06/08/18 13:15 06/08/18 13:30 06/08/18 13:45 Temperature Pulse Rate 110 H 91 H 90 Respiratory Rate 22 12 12 Blood Pressure 145/65 H 126/56 L 128/58 L Pulse Oximetry 96 96 98 06/08/18 14:00 06/08/18 14:15 06/08/18 14:30 Temperature Pulse Rate 99 H 108 H 99 H Respiratory Rate 13 20 15 Blood Pressure 144/63 H 141/64 H 139/63 Pulse Oximetry 97 96 95 06/08/18 14:45 06/08/18 15:00 06/08/18 15:15 Temperature Pulse Rate 108 H 99 H 101 H Respiratory Rate 21 16 24 Blood Pressure 151/65 H 133/50 L 129/58 L Pulse Oximetry 97 98 100 06/08/18 15:30 06/08/18 15:45 06/08/18 16:00 Temperature Pulse Rate 102 H 104 H 98 H Respiratory Rate 16 17 17 Blood Pressure 132/63 132/63 138/63 Pulse Oximetry 100 99 98 06/08/18 16:15 06/08/18 16:30 06/08/18 16:45 Temperature Pulse Rate 105 H 85 114 H Respiratory Rate 15 12 22 Blood Pressure 136/63 137/65 161/73 H Pulse Oximetry 100 98 99 06/08/18 17:00 06/08/18 17:15 06/08/18 17:18 Temperature Pulse Rate 89 104 H 101 H Respiratory Rate 12 17 15 Blood Pressure 146/57 H 143/62 H Pulse Oximetry 99 99 99 06/08/18 17:30 06/08/18 17:45 06/08/18 18:00 Temperature Pulse Rate 98 H 120 H 103 H Respiratory Rate 12 15 14 Blood Pressure 139/64 159/67 H 146/65 H Pulse Oximetry 100 95 99 06/08/18 18:15 06/08/18 18:30 06/08/18 20:26 Temperature Pulse Rate 104 H 106 H 97 H Respiratory Rate 13 16 12 Blood Pressure 152/65 H 163/70 H Pulse Oximetry 99 100 98 Intake & Output 06/08/18 06/08/18 06/09/18 06:59 18:59 06:59 Intake Total 1359 / 1359 1503 / 1503 Output Total 1260 / 1260 1355 / 1355 Balance 99 / 99 148 / 148 Weight 62.6 kg Intake: IV 1359 / 1359 1503 / 1503 Cleviprex Inj 25 mg In 50 ml @ 150 / 150 150 / 150 1 MG/HR 2 mls/hr IV.CONT TITRATE PRN Rx#:[id number] NS Inj 1,000 ML @ 84 mls/hr IV. 1000 / 1000 796 / 796 CONT .[id number] [facility] Rx#:[id number] Cerebyx Inj 100 MGPE In NS Inj 104 / 104 52 / 52 50 ML @ 208 mls/hr IV.SIG Q8HR [facility] Rx#:[id number] KCl 20 mEq Premix Inj 20 meq In 400 / 400 100 ml @ 50 mls/hr IV.SIG Q2H PRN Rx#:[id number] Keppra Inj 500 MG In NS Inj 100 105 / 105 105 / 105 ML @ 400 mls/hr IV.SIG Q12H [facility] Rx#:[id number] Output: Urine Amount (Catheter) 1200 / 1200 1200 / 1200 Indwelling Urethral Catheter 1200 / 1200 1200 / 1200 Gastric Drainage 100 / 100 Orogastric Tube 100 / 100 Wound Drainage 60 / 60 55 / 55 # 1 Left Head 60 / 60 55 / 55 Other: Date of Last Bowel Movement 06/02/18 06/02/18 # Bowel Movements 0 - Urinary Catheter Management Female External Cath placed during this visit: no Indwelling Urethral Catheter Cath placed during this visit: no <PhilipDuke - Last Filed: 06/08/18 20:35> Assessment and Plan - Plan 78 yo female with vague constellation of symptoms GCS-[address] shows 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 hemorrhagic mass Will follow with you 05/30/18: cont neuro checks in ICU Dr. 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 at midnight on Monday night into Monday Minimize sedating meds, etc. 06/03/18: Appears to be a bit more encephalopathic today, possible contribution of hospital delirium versus her mild hydrocephalus, though favor delirium since her level of alertness remains stable Dr. 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 at midnight tonight Continue to minimize sedating meds, etc. 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 Palacios 06/06/18: POD #1. pt had seizure last night requiring intubation. She has been started on Keppra for seizures. On exam she opens eyes and follows commands. Postoperative MRI Brain w/wo contrast has been ordered and pending. Obtain EEG to assess seizures. Continue ventriculostomy draining, add ICP monitoring. Start sq lovenox for dvt prophylaxis. Will follow. 06/07/18: POD #2. patient neurologically stable, opens eyes and follows commands. Postoperative MRI Brain reviewed by neurosurgery team. Spot EEG reports no ongoing seizures, with high amplitude sharp waves on left?breach rhythm. Critical care plans on extubation today. Continue ventriculostomy draining at 10 mmHg. Final pathology pending. Neurology following for seizure management. Will follow. 06/08/18: POD #3. patient neurologically stable, opens eyes and follows commands. Ventriculostomy draining well with controlled ICPs, will continue at 10mmHg. Pathology still pending. cont seizure management per Neurology. dw critical care. will follow. <Samanta Banda - Last Filed: 06/08/18 11:17> - Attending Attestation Easily arousable and follows commands, lethargy was pre-op and likely due to forniceal compression by intraventricular mass as well as hydrocephalus No evidence of subclinical seizures with Phenytoin levels therapeutic cont. current management I have personally seen and examined the patient, reviewed pertinent labs and imaging studies with Ms Banda (Neurosurgery [employer]). I agree with her assessment as well as plan of care. <Duke Palacios - Last Filed: 06/08/18 20:35>
--- NOTE | 2018-06-08 11:46 | MG ---
cc: Daren Robles MD EEG NUMBER: [id number] INDICATION: She is status post brain surgery, left-sided craniotomy, seizure postop. FINDINGS: Recording does show somewhat of a breach rhythm over the left hemisphere with some delta slowing. There are, at times, sharply contoured delta and theta waves, especially over the posterior head region. Continues to have left-sided sharply contoured delta activity throughout much of the recording, particularly rhythmic. You can see there is a difference between here and here. This is left, this right. Photic stimulation was performed without significant posterior driving. IMPRESSION: There are some sharps on the left side. At times, it would constitute spikes, although this is somewhat of a breach rhythm there are also, but certainly could be a seizure focus for this patient, although no ongoing seizures were noted during this EEG. Daren Robles MD DJM/rh , 11:16 AM , 11:20 AM
--- NOTE | 2018-06-08 12:18 | P.PN ---
Subjective Interval history: She remains lethargic on vent support. Failed CPAP trials. Off sedation but does not follow any commands. Chest x-ray only shows minimal basilar infiltrates Physical Exam Vital signs: Vital Signs 06/07/18 12:30 06/07/18 13:00 06/07/18 13:30 Temperature Pulse Rate 110 H 107 H 119 H Respiratory Rate 22 16 18 Blood Pressure 155/68 H 150/67 H 165/71 H Pulse Oximetry 99 97 95 06/07/18 14:00 06/07/18 14:30 06/07/18 14:45 Temperature Pulse Rate 118 H 102 H 114 H Respiratory Rate 22 16 16 Blood Pressure 169/72 H 127/60 161/72 H Pulse Oximetry 95 98 98 06/07/18 15:00 06/07/18 15:15 06/07/18 15:30 Temperature Pulse Rate 115 H 117 H 101 H Respiratory Rate 16 20 16 Blood Pressure 155/67 H 148/65 H 151/66 H Pulse Oximetry 97 97 98 06/07/18 15:42 06/07/18 15:45 06/07/18 16:00 Temperature 99.2 F Pulse Rate 98 H 103 H 119 H Respiratory Rate 16 16 20 Blood Pressure 137/63 162/70 H Pulse Oximetry 98 99 99 06/07/18 16:15 06/07/18 16:30 06/07/18 16:45 Temperature Pulse Rate 114 H 113 H 114 H Respiratory Rate 17 17 16 Blood Pressure 153/65 H 138/63 141/61 H Pulse Oximetry 99 99 96 06/07/18 17:00 06/07/18 17:15 06/07/18 17:30 Temperature Pulse Rate 120 H 111 H 116 H Respiratory Rate 19 16 16 Blood Pressure 139/63 146/63 H 134/63 Pulse Oximetry 95 96 96 06/07/18 17:45 06/07/18 18:00 06/07/18 18:15 Temperature Pulse Rate 118 H 113 H 122 H Respiratory Rate 16 16 16 Blood Pressure 150/67 H 143/62 H 145/65 H Pulse Oximetry 96 96 96 06/07/18 18:30 06/07/18 18:45 06/07/18 19:00 Temperature Pulse Rate 123 H 113 H 118 H Respiratory Rate 24 16 16 Blood Pressure 141/55 H 121/63 135/58 L Pulse Oximetry 95 96 95 06/07/18 19:15 06/07/18 19:30 06/07/18 19:43 Temperature Pulse Rate 117 H 116 H 117 H Respiratory Rate 24 16 16 Blood Pressure 132/61 145/63 H Pulse Oximetry 95 92 L 92 L 06/07/18 19:45 06/07/18 20:00 06/07/18 20:15 Temperature Pulse Rate 116 H 121 H 100 H Respiratory Rate 16 17 16 Blood Pressure 151/64 H 152/67 H 129/61 Pulse Oximetry 91 L 98 96 06/07/18 20:30 06/07/18 20:45 06/07/18 21:00 Temperature Pulse Rate 90 86 89 Respiratory Rate 16 16 16 Blood Pressure 112/53 L 114/55 L 114/56 L Pulse Oximetry 97 95 06/07/18 21:15 06/07/18 21:30 06/07/18 21:45 Temperature Pulse Rate 92 H 91 H 98 H Respiratory Rate 16 16 16 Blood Pressure 128/60 121/56 L 136/61 Pulse Oximetry 95 96 96 06/07/18 22:00 06/07/18 22:15 06/07/18 22:30 Temperature 98.4 F Pulse Rate 94 H 97 H 106 H Respiratory Rate 16 16 16 Blood Pressure 131/56 L 140/65 146/55 H Pulse Oximetry 96 96 96 06/07/18 22:45 06/07/18 23:00 06/07/18 23:15 Temperature Pulse Rate 99 H 107 H 108 H Respiratory Rate 16 16 18 Blood Pressure 143/63 H 140/64 165/74 H Pulse Oximetry 97 96 96 06/07/18 23:21 06/07/18 23:30 06/07/18 23:45 Temperature Pulse Rate 97 H 103 H 96 H Respiratory Rate 16 16 16 Blood Pressure 142/65 H 158/71 H Pulse Oximetry 98 97 06/08/18 00:00 06/08/18 00:15 06/08/18 00:30 Temperature Pulse Rate 103 H 98 H 112 H Respiratory Rate 16 16 16 Blood Pressure 138/64 166/72 H 158/66 H Pulse Oximetry 96 96 96 06/08/18 00:45 06/08/18 01:00 06/08/18 01:14 Temperature Pulse Rate 76 105 H Respiratory Rate 17 16 16 Blood Pressure 169/70 H 151/67 H Pulse Oximetry 96 96 96 06/08/18 01:15 06/08/18 01:30 06/08/18 01:45 Temperature Pulse Rate 103 H 100 H 106 H Respiratory Rate 16 16 16 Blood Pressure 142/65 H 120/57 L 134/64 Pulse Oximetry 96 96 97 06/08/18 02:00 06/08/18 02:15 06/08/18 02:30 Temperature Pulse Rate 115 H 105 H 106 H Respiratory Rate 16 16 18 Blood Pressure 143/67 H 149/71 H 151/70 H Pulse Oximetry 97 97 96 06/08/18 02:45 06/08/18 03:00 06/08/18 03:15 Temperature Pulse Rate 106 H 105 H 101 H Respiratory Rate 16 16 16 Blood Pressure 143/65 H 158/70 H 154/71 H Pulse Oximetry 96 94 L 93 L 06/08/18 03:30 06/08/18 03:34 06/08/18 03:35 Temperature Pulse Rate 95 H 103 H Respiratory Rate 16 18 18 Blood Pressure 163/70 H Pulse Oximetry 93 L 93 L 06/08/18 03:45 06/08/18 04:00 06/08/18 04:15 Temperature Pulse Rate 95 H 105 H 112 H Respiratory Rate 16 16 16 Blood Pressure 138/53 L 151/68 H 167/72 H Pulse Oximetry 98 98 95 06/08/18 04:30 06/08/18 04:45 06/08/18 05:00 Temperature Pulse Rate 105 H 110 H 101 H Respiratory Rate 16 16 16 Blood Pressure 163/67 H 162/68 H 152/69 H Pulse Oximetry 95 95 96 06/08/18 05:15 06/08/18 05:30 06/08/18 05:45 Temperature Pulse Rate 114 H 105 H 106 H Respiratory Rate 17 16 25 H Blood Pressure 162/67 H 160/70 H 153/67 H Pulse Oximetry 96 96 96 06/08/18 06:00 06/08/18 07:00 06/08/18 07:15 Temperature 100.5 F H Pulse Rate 115 H 105 H 108 H Respiratory Rate 16 16 16 Blood Pressure 169/74 H 151/64 H 153/70 H Pulse Oximetry 95 95 95 06/08/18 07:30 06/08/18 07:38 06/08/18 07:45 Temperature Pulse Rate 108 H 103 H 99 H Respiratory Rate 16 16 16 Blood Pressure 127/57 L 142/65 H Pulse Oximetry 94 L 94 L 97 06/08/18 08:00 06/08/18 08:15 06/08/18 08:30 Temperature Pulse Rate 111 H 122 H 108 H Respiratory Rate 13 21 13 Blood Pressure 157/67 H 168/67 H 147/67 H Pulse Oximetry 94 L 95 96 06/08/18 08:45 06/08/18 09:00 06/08/18 09:15 Temperature Pulse Rate 90 91 H 91 H Respiratory Rate 12 13 13 Blood Pressure 125/58 L 149/63 H 139/59 L Pulse Oximetry 95 95 96 06/08/18 09:30 06/08/18 09:45 06/08/18 10:00 Temperature Pulse Rate 83 89 98 H Respiratory Rate 14 16 21 Blood Pressure 153/71 H 145/69 H 162/71 H Pulse Oximetry 98 97 95 06/08/18 10:15 06/08/18 10:30 06/08/18 10:45 Temperature Pulse Rate 84 87 98 H Respiratory Rate 12 13 14 Blood Pressure 145/55 H 146/66 H 139/63 Pulse Oximetry 96 95 97 06/08/18 11:00 06/08/18 11:15 06/08/18 11:30 Temperature Pulse Rate 92 H 95 H 96 H Respiratory Rate 13 13 14 Blood Pressure 141/52 H 154/66 H 141/63 H Pulse Oximetry 96 98 96 06/08/18 11:45 06/08/18 12:00 06/08/18 12:09 Temperature 98.9 F Pulse Rate 99 H 110 H 108 H Respiratory Rate 13 20 16 Blood Pressure 141/63 H 161/69 H Pulse Oximetry 97 96 97 Intake & Output 06/07/18 06/08/18 06/08/18 18:59 06:59 18:59 Intake Total 1513 / 1513 1359 / 1359 150 / 150 Output Total 1445 / 1445 1260 / 1260 Balance 68 / 68 99 / 99 150 / 150 Weight 62.6 kg Intake: IV 1513 / 1513 1359 / 1359 150 / 150 Cleviprex Inj 25 mg In 50 ml @ 100 / 100 150 / 150 50 / 50 1 MG/HR 2 mls/hr IV.CONT TITRATE PRN Rx#:[id number] NS Inj 1,000 ML @ 84 mls/hr IV. 796 / 796 1000 / 1000 CONT .[id number] [facility] Rx#:[id number] Cerebyx Inj 100 MGPE In NS Inj 52 / 52 104 / 104 50 ML @ 208 mls/hr IV.SIG Q8HR [facility] Rx#:[id number] Magnesium Sulfate Inj 2 GM In 100 / 100 NS Inj 96 ML @ 50 mls/hr IV.SIG ONCE ONE Rx#:[id number] KCl 20 mEq Premix Inj 20 meq In 100 / 100 100 / 100 100 ml @ 50 mls/hr IV.SIG Q2H PRN Rx#:[id number] Potassium Phosphate Inj 30 MMOL 260 / 260 In NS Inj 250 ML @ 43.333 mls/ hr IV.SIG ONCE ONE Rx#:[id number] Keppra Inj 500 MG In NS Inj 100 105 / 105 105 / 105 ML @ 400 mls/hr IV.SIG Q12H [facility] Rx#:[id number] Output: Urine Amount (Catheter) 1400 / 1400 1200 / 1200 Indwelling Urethral Catheter 1400 / 1400 1200 / 1200 Gastric Drainage 0 / 0 Orogastric Tube 0 / 0 Wound Drainage 45 / 45 60 / 60 # 1 Left Head 45 / 45 60 / 60 Other: Date of Last Bowel Movement 06/02/18 06/02/18 06/02/18 # Bowel Movements 0 Narrative: patient is intubated GENERAL: Elderly white female intubated on vent support SKIN: Warm and dry. HEAD: Atraumatic. Normocephalic. EYES: Pupils equal and round. No scleral icterus. No injection or drainage. ENT: No nasal bleeding or discharge. Mucous membranes pink and moist. NECK: Trachea midline. No JVD. CARDIOVASCULAR: Regular rate and rhythm. RESPIRATORY: No accessory muscle use. Bilateral expiratory wheezes. Breath sounds equal bilaterally. GASTROINTESTINAL: Abdomen soft, non-tender, nondistended. Hepatic and splenic margins not palpable. MUSCULOSKELETAL: Extremities without clubbing, cyanosis, or edema. No obvious deformities. NEUROLOGICAL: Partially sedated PSYCHIATRIC: Cannot assess - Urinary Catheter Management Female External Cath placed during this visit: no Reason for continuing: Not indwelling catheter Indwelling Urethral Catheter Cath placed during this visit: yes Reason for continuing: Hourly intake/output Insertion date: 06/05/18 Insertion time: 08:30 Results - Labs CBC & Chem 7: 06/08/18 05:48 06/08/18 03:16 Laboratory Results - last 24 hr 06/07/18 06/08/18 06/08/18 17:09 03:16 05:48 WBC 13.5 H RBC 3.29 L Hgb 11.3 L Hct 33.2 L MCV 100.8 H MCH 34.3 H MCHC 34.0 RDW 14.3 Plt Count MPV 8.1 Prelim Diff (Auto) Slide review pending Neut % (Auto) 82.7 H Lymph % (Auto) 8.2 L [place] % (Auto) 8.9 H Eos % (Auto) 0.1 Baso % (Auto) 0.1 Neut # (Auto) 11.2 H Lymph # (Auto) 1.1 [place] # (Auto) 1.2 H Eos # (Auto) 0.0 Baso # (Auto) 0.0 WBC Differential Manual diff final Seg Neuts % (Manual) 80 H Band Neuts % (Manual) 4 Lymphocytes % (Manual) 8 L Monocytes % (Manual) 7 Promyelocytes % (Man) 1 H Abs Neuts (Manual) 11.5 H Differential Comment . Platelet Estimate Normal Platelet Morphology Clumped H Keratocytes Occ H Sodium 141 Potassium 3.4 L 3.0 L Chloride 107 Carbon Dioxide 22.7 Anion Gap 11 BUN 9 Creatinine 0.30 L Estimated GFR Greater than 89 Random Glucose 99 Calcium 7.9 L Phosphorus 1.8 L Magnesium 1.9 2.0 Phenytoin 8.4 L - Imaging Impressions Chest X-Ray 06/08/18 06:00 CONCLUSION: Tracheostomy tube and nasogastric tube position. Lungs are grossly clear. Assessment and Plan - Assessment (1) COPD (chronic obstructive pulmonary disease) Code(s): J44.9 - Chronic obstructive pulmonary disease, unspecified Status: Acute (2) Right upper lobe pulmonary nodule Code(s): R91.1 - Solitary pulmonary nodule Status: Acute (3) Intraventricular hemorrhage, nontraumatic Code(s): I61.5 - Nontraumatic intracerebral hemorrhage, intraventricular Status: Acute (4) Hypertensive emergency Code(s): I16.1 - Hypertensive emergency Status: Acute (5) Metabolic encephalopathy Code(s): G93.41 - Metabolic encephalopathy Status: Acute (6) Altered mental status Code(s): R41.82 - Altered mental status, unspecified Status: Acute (7) History of peripheral arterial disease Code(s): Z86.79 - Personal history of other diseases of the circulatory system Status: Chronic (8) History of hypertension Code(s): Z86.79 - Personal history of other diseases of the circulatory system Status: Chronic (9) Cessation of tobacco use in previous 12 months Code(s): Z87.891 - Personal history of nicotine dependence Status: Chronic - Plan 1 wean ventilator to CPAP 5 x 12 and FiO2 30% 2. Continue DuoNeb nebs 4 times daily. 3. CBC BMP chest x-ray in a.m. 4. Workup for lung mass when clinically stable 5. Check respiratory parameters and consider extubation 6 Symbicort 160 about 4.5 mcg 1 puff twice daily 7. Solu-Medrol 40 mg IV twice daily (6) Altered mental status Qualifiers: Altered mental status type: unspecified Qualified Code(s): R41.82 - Altered mental status, unspecified
[2018-06-08 21:00] LABS: Phosphorus 1.9 mg/dL (2.5-4.9)
[2018-06-08] MEDS ORDERED: Sodium Glycerophosphate Inj 30 MMOL in Sodium Chlor 0.9% Inj 250 ML IV.SIG PRN (23:00)
[2018-06-09] MEDS: Sod Chloride 0.9% Inj 1,000 ML IV.CONT SCH (01:31)
[2018-06-09] MEDS: Clevidipine Inj 25 MG/50 ML VIAL IV.CONT PRN ×2 (01:31→05:56)
[2018-06-09] MEDS: Artificial Tears Opth Drops 15 ML Bottle EACH EYE SCH ×3 (03:27→21:34)
[2018-06-09] MEDS: Fosphenytoin Inj 100 MGPE in Sodium Chlor 0.9% Inj 50 ML IV.SIG SCH ×2 (05:56→13:03)
[2018-06-09 06:06] LABS: Anion Gap 12 meq/L (5-15); Blood Urea Nitrogen 7 mg/dL (7-18); Carbon Dioxide 22.2 meq/L (21.0-32.0); Chloride 101 meq/L (98-107); Glomerular Filtration Rate Greater Than 89 mL/min (>89); Glucose,Random 102 mg/dL (74-106); Sodium 135 meq/L (136-145)
[2018-06-09 06:09] LABS: Potassium 4.1 meq/L (3.5-5.1)
[2018-06-09] MEDS: MethylPREDNISolone Sod Succinate Inj 40 MG/ML Vial IV.PUSH SCH ×2 (08:42→21:27)
[2018-06-09] MEDS: Senna/Docusate Sodium 8.6/50 MG Tablet PO SCH ×2 (08:45→21:33)
[2018-06-09] MEDS: Metoprolol Tartrate 50 MG Tablet PO SCH ×2 (08:45→21:28)
[2018-06-09] MEDS: Pantoprazole Inj 40 MG Vial IV.PUSH SCH (08:45)
[2018-06-09] MEDS: Enoxaparin Inj 40 MG/0.4 ML Syringe SQ SCH (08:45)
[2018-06-09] MEDS: Lisinopril 20 MG Tablet PO SCH (08:45)
[2018-06-09] MEDS: amLODIPine 5 MG Tablet PO SCH (08:46)
[2018-06-09] MEDS: Budesonide-Formoterol 160/4.5 MCG 6 GM Inhaler INH SCH ×2 (08:46→21:34)
[2018-06-09] MEDS ORDERED: Labetalol HCl Inj 100 MG/20 ML Vial IV.PUSH PRN (09:00)
--- NOTE | 2018-06-09 09:28 | P.PNCC ---
Subjective Subjective Remarks/Hospital Course: Patient is a 78-year-old female with past medical history significant for hypertension, peripheral arterial disease, history of vascular intervention/ stenting, arthritis who presented to the [facility] with mostly nonspecific complaints of memory loss and hallucinations for 1 week and worsening tremors of the right arm. Further workup in the emergency department showed subacute intraventricular hemorrhage into the left lateral ventricle and a focal thrombus that may be obstructing foramina of [place]. There was enlargement of the left lateral ventricle compared to the prior MRI. Also trace blood in the occipital horn of left lateral ventricle. With evidence of intraventricular hemorrhage patient was transferred emergently to [facility] for neurosurgery consult. I evaluated the patient after arrival to the ICU. Patient is profoundly hypertensive systolic blood pressure 190-200. IV labetalol 20 mg IV push given followed by Cardene infusion started. On exam patient did not appear to be in distress. No definite focal deficit however patient is oriented only to person. Reviewed CT scan with neurosurgery Dr. Palacios. On his review CT shows 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 hemorrhagic mass at foramen of Bell with asymmetric left sided ventricular dilatation. Stat MRI of the brain with and without contrast ordered. Started on Cardene infusion with target systolic blood pressure less than 140 05/30/18: MRI brain showed 2.3 x 1.7 cm mass within the body of the left lateral ventricle measuring 2.3 x 1.7 cm left lateral ventricle is prominent may be related to production of CSF from this mass. 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 Additional mass in the cerebellopontine angle on the left compressing upon the brainstem measuring 1.8 x 1.4 cm. Slightly more agitated and confused today. Partly secondary to mass partly could be alcohol withdrawal. Placed on as needed Haldol 05/31: Patient remains sedated received Ativan a few hours before. Currently for that reason Precedex is being held. Wakes up follows some commands. Oriented to person only. Plan for craniotomy and resection of intraventricular mass scheduled tentatively for Monday. Ct chest: 1.6 x 1.1 cm spiculated RUL nodule concerning for metastasis or primary lung malignancy. 1.1 x 1.4 cm soft tissue density inferior lateral margin of the right breast implant ?focal disruption vs breast mass. CT abdomen pelvis: 1.3 cm left adrenal mass concerning for metastatic disease given findings of brain and lung mass. 1.6 cm indeterminate low-density lesion in the posterior right lobe of the liver with numerous additional subcentimeter hypodense lesions which are too small to fully characterize. Metastatic disease cannot be entirely excluded, possibly cysts. 06/01: Remains confused slightly agitated remains on Precedex. CT angiogram yesterday of the brain showed previously demonstrated intraventricular mass however no cerebellopontine angle mass. WBC count elevated to 19.1 no fever. Will check UA-previously ordered UA had not been done. Check blood cultures, chest x-ray is clear. Continue to hold Plavix 06/02: Plan is for resection of brain mass on Monday. Patient continues breathing comfortably. 06/03: Ready for OR. Labs are in order. INR 1.1. Plavix effect noted on . 06/04: Coagulation profile normal. Patient scheduled for surgery tomorrow. No new complaints. 06/05: Patient seen in PACU shortly after surgery. Brief generalized seizure terminated with Ativan 1 mg. Patient loaded with Cerebyx 1 g. Neurologic exam nonfocal at this time. Pupils pinpoint. Required reintubation due to somnolence. 06/06: T-max 100.8. Currently afebrile. Patient arousable on the ventilator. Hypotensive requiring 1 L bolus normal saline. MRI brain pending. EEG ongoing. 06/07: T-max 100.6. Currently 99.8. MRI brain showed postsurgical change with no increased hemorrhage noted. Replacing potassium, phosphorus and magnesium currently. Dexmedetomidine drip is currently off. Noted some breech with EEG yesterday. Dilantin level therapeutic. 06/08: All sedation off for about 24 hours. She will open her eyes to stimulation. Withdraws 4 limbs to stimulation but right upper extremity appears weaker. Dilantin level is therapeutic and no more seizures. We will attempt to extubate when she can control her airway. Presently too somnolent. Subjective 06/09: Possibly slightly more arousable than when I saw her for 8 hours ago. Will reflexively squeeze left upper extremity. Not currently following commands with right upper extremity for me. Tube feeding today increase antihypertensives to wean off clevidipine drip. Objective Vital Signs / I&O: Vital Signs 06/08/18 09:15 06/08/18 09:30 06/08/18 09:45 Temperature Pulse Rate 91 H 83 89 Respiratory Rate 13 14 16 Blood Pressure 139/59 L 153/71 H 145/69 H Pulse Oximetry 96 98 97 06/08/18 10:00 06/08/18 10:15 06/08/18 10:30 Temperature Pulse Rate 98 H 84 87 Respiratory Rate 21 12 13 Blood Pressure 162/71 H 145/55 H 146/66 H Pulse Oximetry 95 96 95 06/08/18 10:45 06/08/18 11:00 06/08/18 11:15 Temperature Pulse Rate 98 H 92 H 95 H Respiratory Rate 14 13 13 Blood Pressure 139/63 141/52 H 154/66 H Pulse Oximetry 97 96 98 06/08/18 11:30 06/08/18 11:45 06/08/18 12:00 Temperature 98.9 F Pulse Rate 96 H 99 H 110 H Respiratory Rate 14 13 20 Blood Pressure 141/63 H 141/63 H 161/69 H Pulse Oximetry 96 97 96 06/08/18 12:09 06/08/18 12:15 06/08/18 12:30 Temperature Pulse Rate 108 H 91 H 102 H Respiratory Rate 16 13 22 Blood Pressure 129/60 135/63 Pulse Oximetry 97 100 99 06/08/18 12:45 06/08/18 13:00 06/08/18 13:15 Temperature Pulse Rate 107 H 106 H 110 H Respiratory Rate 20 20 22 Blood Pressure 160/69 H 143/65 H 145/65 H Pulse Oximetry 98 98 96 06/08/18 13:30 06/08/18 13:45 06/08/18 14:00 Temperature Pulse Rate 91 H 90 99 H Respiratory Rate 12 12 13 Blood Pressure 126/56 L 128/58 L 144/63 H Pulse Oximetry 96 98 97 06/08/18 14:15 06/08/18 14:30 06/08/18 14:45 Temperature Pulse Rate 108 H 99 H 108 H Respiratory Rate 20 15 21 Blood Pressure 141/64 H 139/63 151/65 H Pulse Oximetry 96 95 97 06/08/18 15:00 06/08/18 15:15 06/08/18 15:30 Temperature Pulse Rate 99 H 101 H 102 H Respiratory Rate 16 24 16 Blood Pressure 133/50 L 129/58 L 132/63 Pulse Oximetry 98 100 100 06/08/18 15:45 06/08/18 16:00 06/08/18 16:15 Temperature Pulse Rate 104 H 98 H 105 H Respiratory Rate 17 17 15 Blood Pressure 132/63 138/63 136/63 Pulse Oximetry 99 98 100 06/08/18 16:30 06/08/18 16:45 06/08/18 17:00 Temperature Pulse Rate 85 114 H 89 Respiratory Rate 12 22 12 Blood Pressure 137/65 161/73 H 146/57 H Pulse Oximetry 98 99 99 06/08/18 17:15 06/08/18 17:18 06/08/18 17:30 Temperature Pulse Rate 104 H 101 H 98 H Respiratory Rate 17 15 12 Blood Pressure 143/62 H 139/64 Pulse Oximetry 99 99 100 06/08/18 17:45 06/08/18 18:00 06/08/18 18:15 Temperature Pulse Rate 120 H 103 H 104 H Respiratory Rate 15 14 13 Blood Pressure 159/67 H 146/65 H 152/65 H Pulse Oximetry 95 99 99 06/08/18 18:30 06/08/18 18:45 06/08/18 19:00 Temperature Pulse Rate 106 H 100 H 103 H Respiratory Rate 16 14 15 Blood Pressure 163/70 H 148/65 H 142/67 H Pulse Oximetry 100 100 100 06/08/18 19:15 06/08/18 19:30 06/08/18 19:45 Temperature Pulse Rate 105 H 114 H 111 H Respiratory Rate 15 18 18 Blood Pressure 147/65 H 157/69 H 154/69 H Pulse Oximetry 98 98 97 06/08/18 20:00 06/08/18 20:15 06/08/18 20:26 Temperature 99.4 F Pulse Rate 116 H 97 H Respiratory Rate 24 12 Blood Pressure 164/75 H 161/69 H Pulse Oximetry 94 L 98 06/08/18 20:30 06/08/18 20:45 06/08/18 21:00 Temperature Pulse Rate 98 H 99 H 89 Respiratory Rate 12 13 13 Blood Pressure 136/60 167/72 H 148/66 H Pulse Oximetry 98 100 100 06/08/18 21:15 06/08/18 21:30 06/08/18 21:45 Temperature Pulse Rate 116 H 107 H 114 H Respiratory Rate 17 12 13 Blood Pressure 183/79 H 140/60 168/73 H Pulse Oximetry 100 100 100 06/08/18 22:00 06/08/18 22:15 06/08/18 22:30 Temperature Pulse Rate 86 89 86 Respiratory Rate 12 14 13 Blood Pressure 127/58 L 137/63 130/63 Pulse Oximetry 100 100 99 06/08/18 22:45 06/08/18 23:00 06/08/18 23:15 Temperature Pulse Rate 83 88 92 H Respiratory Rate 12 12 12 Blood Pressure 133/55 L 137/63 148/67 H Pulse Oximetry 100 99 100 06/08/18 23:30 06/08/18 23:45 06/08/18 23:58 Temperature Pulse Rate 97 H 97 H 81 Respiratory Rate 13 12 Blood Pressure 132/60 146/65 H Pulse Oximetry 100 99 100 06/09/18 00:00 06/09/18 00:15 06/09/18 00:30 Temperature 98.9 F Pulse Rate 97 H 95 H 104 H Respiratory Rate 15 12 16 Blood Pressure 146/64 H 137/63 160/71 H Pulse Oximetry 99 100 100 06/09/18 00:45 06/09/18 01:00 06/09/18 01:15 Temperature Pulse Rate 96 H 102 H 100 H Respiratory Rate 12 12 13 Blood Pressure 143/63 H 145/66 H 139/63 Pulse Oximetry 100 100 99 06/09/18 01:30 06/09/18 01:45 06/09/18 02:00 Temperature Pulse Rate 98 H 109 H 98 H Respiratory Rate 12 12 13 Blood Pressure 154/69 H 153/68 H 132/59 L Pulse Oximetry 100 100 99 06/09/18 02:15 06/09/18 02:30 06/09/18 02:45 Temperature Pulse Rate 99 H 115 H 106 H Respiratory Rate 13 17 13 Blood Pressure 132/62 158/73 H 138/63 Pulse Oximetry 98 97 98 06/09/18 03:00 06/09/18 03:33 06/09/18 03:45 Temperature Pulse Rate 109 H 96 H 90 Respiratory Rate 20 13 12 Blood Pressure 135/62 142/65 H Pulse Oximetry 99 100 06/09/18 04:00 06/09/18 04:15 06/09/18 04:28 Temperature 99.5 F Pulse Rate 92 H 96 H 103 H Respiratory Rate 12 12 13 Blood Pressure 135/53 L 153/66 H Pulse Oximetry 100 100 100 06/09/18 04:30 06/09/18 04:45 06/09/18 05:00 Temperature Pulse Rate 103 H 75 102 H Respiratory Rate 13 16 13 Blood Pressure 151/65 H 152/64 H 148/62 H Pulse Oximetry 100 100 100 06/09/18 05:15 06/09/18 05:30 06/09/18 05:45 Temperature Pulse Rate 115 H 108 H 119 H Respiratory Rate 14 15 16 Blood Pressure 164/69 H 138/61 145/65 H Pulse Oximetry 99 100 100 06/09/18 06:00 06/09/18 06:15 06/09/18 06:30 Temperature Pulse Rate 121 H 103 H 117 H Respiratory Rate 17 12 17 Blood Pressure 156/70 H 124/56 L 139/60 Pulse Oximetry 100 100 100 06/09/18 06:45 06/09/18 07:00 06/09/18 07:15 Temperature Pulse Rate 103 H 96 H 89 Respiratory Rate 13 12 12 Blood Pressure 134/61 143/63 H 151/65 H Pulse Oximetry 99 99 99 06/09/18 07:30 06/09/18 07:45 06/09/18 07:48 Temperature Pulse Rate 92 H 92 H 104 H Respiratory Rate 12 12 15 Blood Pressure 162/65 H 163/68 H Pulse Oximetry 99 99 99 06/09/18 08:00 06/09/18 08:07 Temperature 98.8 F Pulse Rate 85 104 H Respiratory Rate 12 Blood Pressure 136/60 Pulse Oximetry 99 Intake & Output 06/08/18 06/09/18 06/09/18 18:59 06:59 18:59 Intake Total 1503 / 1503 1639 / 1639 Output Total 1355 / 1355 1630 / 1630 Balance 148 / 148 9 / 9 Weight 65.9 kg Intake: IV 1503 / 1503 1639 / 1639 Cleviprex Inj 25 mg In 50 ml @ 150 / 150 150 / 150 1 MG/HR 2 mls/hr IV.CONT TITRATE PRN Rx#:[id number] NS Inj 1,000 ML @ 84 mls/hr IV. 796 / 796 1000 / 1000 CONT .[id number] ALEXIS Rx#:[id number] Cerebyx Inj 100 MGPE In NS Inj 52 / 52 104 / 104 50 ML @ 208 mls/hr IV.SIG Q8HR ALEXIS Rx#:[id number] KCl 20 mEq Premix Inj 20 meq In 400 / 400 100 ml @ 50 mls/hr IV.SIG Q2H PRN Rx#:[id number] Glycophos Inj 30 MMOL In NS Inj 280 / 280 250 ML @ 42 mls/hr IV.SIG UNSCH PRN Rx#:[id number] Keppra Inj 500 MG In NS Inj 100 105 / 105 105 / 105 ML @ 400 mls/hr IV.SIG Q12H ALEXIS Rx#:[id number] Output: Urine Amount (Catheter) 1200 / 1200 1550 / 1550 Indwelling Urethral Catheter 1200 / 1200 1550 / 1550 Gastric Drainage 100 / 100 Orogastric Tube 100 / 100 Wound Drainage 55 / 55 80 / 80 # 1 Left Head 55 / 55 80 / 80 Other: Date of Last Bowel Movement 06/02/18 06/02/18 06/02/18 # Bowel Movements 0 Result Diagrams: 06/08/18 05:48 06/09/18 04:55 Other Results: Microbiology 06/01/18 10:21 Blood - Peripheral Aerobic Blood Culture - Final No growth in 5 days 06/01/18 10:21 Blood - Peripheral Anaerobic Blood Culture - Final No growth in 5 days 06/01/18 10:16 Blood - Peripheral Aerobic Blood Culture - Final No growth in 5 days 06/01/18 10:16 Blood - Peripheral Anaerobic Blood Culture - Final No growth in 5 days Imaging: Chest X-Ray 05/29/18 15:37 CONCLUSION: Chronic interstitial changes. No acute abnormality. Head MRI 05/29/18 15:41 CONCLUSION: 1. There is a 2.3 x 1.7 cm mass within the body of the left lateral ventricle measuring 2.3 x 1.7 cm. The left lateral ventricle is prominent may be related to production of CSF from this mass. 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 This mass may have hemorrhaged causing the blood layering in the lateral ventricles. 2. There is also a mass in the cerebellopontine angle on the left compressing upon the brainstem measuring 1.8 x 1.4 cm. 3. Chronic ischemic small vessel vasculopathy. Abdomen/Pelvis CT 05/30/18 00:00 CONCLUSION: 1. 1.3 cm left adrenal mass. Findings are concerning for metastatic disease given findings of brain metastasis and lung mass. 2. 1.6 cm indeterminate low-density lesion in the posterior right lobe of the liver with numerous additional subcentimeter hypodense lesions which are too small to fully characterize. Although metastatic disease cannot be entirely excluded, suspect these reflect cysts. 3. Colonic diverticulosis without evidence for diverticulitis. 4. Otherwise, no additional definitive evidence for metastatic disease to the abdomen or pelvis. Chest CT 05/30/18 00:00 CONCLUSION: 1. 1.6 x 1.1 cm spiculated right upper lobe lung nodule concerning for metastasis or primary lung malignancy. 2. Additional 3 mm subpleural nodules in the superior segment of the left lower lobe are nonspecific. 3. Mild atelectasis/scarring at the right lung base with more prominent airspace consolidation at the left lung base. 4. 1.1 x 1.4 cm soft tissue density abnormality emanating from the inferior lateral margin of the right breast implant which may reflect a focal disruption. However, cannot exclude an adjacent breast mass. Correlation with patient's history and prior breast imaging is recommended. Head CTA 05/31/18 00:00 CONCLUSION: 1. There is no evidence for intracranial aneurysm or stenosis. 2. Intraventricular mass as previously described. 3. There is no evidence for mass at the cerebellopontine angle. The finding on the recent MRI was likely related to pulsation artifact in this region. . Chest X-Ray 06/01/18 00:00 CONCLUSION: No acute cardiopulmonary disease identified. Chest X-Ray 06/05/18 00:00 CONCLUSION: 1. Right upper lobe nodule. 2. Bibasilar infiltrates. 3. Adequate placement of endotracheal tube. Head MRI 06/06/18 00:00 CONCLUSION: 1. 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 2. Intraventricular blood as described. Left lateral ventricle is slightly smaller. 3. Air and small amount of acute blood in the subdural spaces of both convexities. There is also small subdural blood in between the leaves of the falx. 4. Roughly 5 mm of rightward midline shift, improved. Chest X-Ray 06/08/18 06:00 CONCLUSION: Tracheostomy tube and nasogastric tube position. Lungs are grossly clear. Objective Remarks: GENERAL: This is a 78-year-old female currently orotracheally intubated SKIN: Warm and dry. HEAD: Atraumatic. Normocephalic. EYES: Pupils equal and round. About 2 mm bilaterally and reactive, no scleral icterus. No injection or drainage. ENT: No nasal bleeding or discharge. Mucous membranes pink and moist. NECK: Trachea midline. Orotracheal intubation CARDIOVASCULAR: Regular rate and rhythm. S1, S2 no S 4. RESPIRATORY: Normal excursions on mechanical ventilation. Clear to auscultation. Breath sounds equal bilaterally. GASTROINTESTINAL: Abdomen soft, non-tender, nondistended. No guarding, bowel sounds active. MUSCULOSKELETAL: Extremities with trace bilateral lower extremity edema. Warm, well-perfused NEUROLOGICAL: Positive cough and gag. Pupils reactive. Arousable on the ventilator and opens eyes moves all left upper, left lower and right lower extremity. Very difficult to the evaluate right upper extremity. GENERAL: SKIN: Warm and dry. HEAD: Atraumatic. Normocephalic. EYES: Pupils equal and round. No scleral icterus. No injection or drainage. ENT: No nasal bleeding or discharge. Mucous membranes pink and moist. NECK: Trachea midline. No JVD. CARDIOVASCULAR: Regular rate and rhythm. RESPIRATORY: No accessory muscle use. Clear to auscultation. Breath sounds equal bilaterally. GASTROINTESTINAL: Abdomen soft, non-tender, nondistended. Hepatic and splenic margins not palpable. MUSCULOSKELETAL: Extremities without clubbing, cyanosis, or edema. No obvious deformities. NEUROLOGICAL: Awake and alert. No obvious cranial nerve deficits. Motor grossly within normal limits. Five out of 5 muscle strength in the arms and legs. Normal speech. PSYCHIATRIC: Appropriate mood and affect; insight and judgment normal. Assessment and Plan - Problem List (1) Intraventricular hemorrhage, nontraumatic Code(s): I61.5 - Nontraumatic intracerebral hemorrhage, intraventricular Status: Acute (2) Hypertensive emergency Code(s): I16.1 - Hypertensive emergency Status: Acute (3) Metabolic encephalopathy Code(s): G93.41 - Metabolic encephalopathy Status: Acute (4) Altered mental status Code(s): R41.82 - Altered mental status, unspecified Status: Acute (5) History of peripheral arterial disease Code(s): Z86.79 - Personal history of other diseases of the circulatory system Status: Chronic (6) History of hypertension Code(s): Z86.79 - Personal history of other diseases of the circulatory system Status: Chronic (7) Cessation of tobacco use in previous 12 months Code(s): Z87.891 - Personal history of nicotine dependence Status: Chronic - Assessment and Plan Plan: NEURO/psych: 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 -Status post left craniotomy resection of tumor 06/0506/04/2018 (clopidogrel will be held for 7 days prior to surgery) -Oncology consult, also CT chest abdomen pelvis -right upper lobe mass with probable adrenal metastases cannot rule out liver metastases -Tight blood pressure control with nicardipine e and IV labetalol as needed, and PO meds, see below -Keep systolic blood pressure less than 150 -Supplement multivitamin thiamine given daily alcohol use -Watch closely for alcohol withdrawal -Mild alcohol withdrawal contributing to agitation -Use expected for agitation, Haldol as needed -EEG originally negative for seizures -Repeat EEG 06/06 field possible left frontal breakthrough. Loaded with fosphenytoin 1 g.. Start on 100 mg 3 times daily recheck level in a.m was 9.2 with free level around 17. Continue per neurology. -MRA 06/06 brain revealed left lateral ventricle resection, intervertebral hemorrhage slightly decreased. Small subdural hematoma. Postsurgical. Rightward shift 5 mm. -No new seizures. Currently on fosphenytoin 100 mg every 8 hours. Level 8.2. On levetiracetam 500 mg IV twice daily. RESP: Acute respiratory failure Previous tobacco use Right upper lobe speak with a mass -PRVC ventilation with ventilator bundle/head of bed at 30 degrees -Albuterol/ipratropium aerosols every 4 hours scheduled and as needed albuterol aerosols every 2 hours as needed -Pulmonology consulted for right upper lobe mass concerning for primary malignancy, with adrenal mass -Pulmonary Dr. Evans suggesting CT-guided biopsy and PET scan once clinically more stable and neuro surgery completed -Reintubated and ISC after PACU 06/05. -Spontaneous breathing trials today again, attempt extubation when she can protect her airway. CV: Hypertensive emergency History of hypertension Peripheral arterial disease -Normal saline IV fluids 84 mL/h -Clevidipine nfusion and, IV labetalol as needed for systolic blood pressure less than 150 -Continue home enalapril 40 mg daily and amlodipine 5 mg daily increased to 10 mg daily, continue pravastatin [address] Quintero Added metoprolol tartrate 50 mg twice daily -Continue holding clopidogrel until cleared by neurosurgery -Decrease platelet activity noted on 06/01 -INR, PT, PTT normal - GI: Left adrenal mass 1.3 x 1.2 cm Colonic diverticulosis Right liver mass versus cyst -Currently n.p.o. status, lansoprazole for GI prophylax. Docusate sodium/senna 1 tablet twice daily for bowel regimen -Start tube feedings today. With vital 1.5 goal 40 cc an hour : -Monitor renal function closely. ID: -No indication for antibiotics at this time status post cefazolin HEME: Leukocytosis Macrocytic anemia -Oncology. 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 Kapadia FEN/ENDO: -Discontinue normal saline at 84 cc an hour -Electrolyte replacement per protocol PROPH: -Bilateral lower extremity SCDs. Avoid chemical DVT prophylaxis until after surgery. LINES: -Utilize peripheral IVs, central line if needed Level 2 follow-up (4) Altered mental status Qualifiers: Altered mental status type: unspecified Qualified Code(s): R41.82 - Altered mental status, unspecified
[2018-06-09] MEDS ORDERED: levETIRAcetam 1000mg/100mL Inj 100 ML IV.SIG ONE (13:59)
[2018-06-09] MEDS: levETIRAcetam Inj 1,500 MG in Sodium Chlor 0.9% Inj 100 ML IV.SIG SCH (14:36)
[2018-06-09] MEDS: PHENobarbital Inj 130 MG/ML Vial IV.PUSH SCH (15:37)
--- NOTE | 2018-06-09 15:45 | P.PNNS ---
Subjective Interval history: remains Neurologically stable, still intubated, no overnight events. Physical Exam Vital signs: Vital Signs 06/08/18 15:45 06/08/18 16:00 06/08/18 16:15 Temperature Pulse Rate 104 H 98 H 105 H Respiratory Rate 17 17 15 Blood Pressure 132/63 138/63 136/63 Pulse Oximetry 99 98 100 06/08/18 16:30 06/08/18 16:45 06/08/18 17:00 Temperature Pulse Rate 85 114 H 89 Respiratory Rate 12 22 12 Blood Pressure 137/65 161/73 H 146/57 H Pulse Oximetry 98 99 99 06/08/18 17:15 06/08/18 17:18 06/08/18 17:30 Temperature Pulse Rate 104 H 101 H 98 H Respiratory Rate 17 15 12 Blood Pressure 143/62 H 139/64 Pulse Oximetry 99 99 100 06/08/18 17:45 06/08/18 18:00 06/08/18 18:15 Temperature Pulse Rate 120 H 103 H 104 H Respiratory Rate 15 14 13 Blood Pressure 159/67 H 146/65 H 152/65 H Pulse Oximetry 95 99 99 06/08/18 18:30 06/08/18 18:45 06/08/18 19:00 Temperature Pulse Rate 106 H 100 H 103 H Respiratory Rate 16 14 15 Blood Pressure 163/70 H 148/65 H 142/67 H Pulse Oximetry 100 100 100 06/08/18 19:15 06/08/18 19:30 06/08/18 19:45 Temperature Pulse Rate 105 H 114 H 111 H Respiratory Rate 15 18 18 Blood Pressure 147/65 H 157/69 H 154/69 H Pulse Oximetry 98 98 97 06/08/18 20:00 06/08/18 20:15 06/08/18 20:26 Temperature 99.4 F Pulse Rate 116 H 97 H Respiratory Rate 24 12 Blood Pressure 164/75 H 161/69 H Pulse Oximetry 94 L 98 06/08/18 20:30 06/08/18 20:45 06/08/18 21:00 Temperature Pulse Rate 98 H 99 H 89 Respiratory Rate 12 13 13 Blood Pressure 136/60 167/72 H 148/66 H Pulse Oximetry 98 100 100 06/08/18 21:15 06/08/18 21:30 06/08/18 21:45 Temperature Pulse Rate 116 H 107 H 114 H Respiratory Rate 17 12 13 Blood Pressure 183/79 H 140/60 168/73 H Pulse Oximetry 100 100 100 06/08/18 22:00 06/08/18 22:15 06/08/18 22:30 Temperature Pulse Rate 86 89 86 Respiratory Rate 12 14 13 Blood Pressure 127/58 L 137/63 130/63 Pulse Oximetry 100 100 99 06/08/18 22:45 06/08/18 23:00 06/08/18 23:15 Temperature Pulse Rate 83 88 92 H Respiratory Rate 12 12 12 Blood Pressure 133/55 L 137/63 148/67 H Pulse Oximetry 100 99 100 06/08/18 23:30 06/08/18 23:45 06/08/18 23:58 Temperature Pulse Rate 97 H 97 H 81 Respiratory Rate 13 12 Blood Pressure 132/60 146/65 H Pulse Oximetry 100 99 100 06/09/18 00:00 06/09/18 00:15 06/09/18 00:30 Temperature 98.9 F Pulse Rate 97 H 95 H 104 H Respiratory Rate 15 12 16 Blood Pressure 146/64 H 137/63 160/71 H Pulse Oximetry 99 100 100 06/09/18 00:45 06/09/18 01:00 06/09/18 01:15 Temperature Pulse Rate 96 H 102 H 100 H Respiratory Rate 12 12 13 Blood Pressure 143/63 H 145/66 H 139/63 Pulse Oximetry 100 100 99 06/09/18 01:30 06/09/18 01:45 06/09/18 02:00 Temperature Pulse Rate 98 H 109 H 98 H Respiratory Rate 12 12 13 Blood Pressure 154/69 H 153/68 H 132/59 L Pulse Oximetry 100 100 99 06/09/18 02:15 06/09/18 02:30 06/09/18 02:45 Temperature Pulse Rate 99 H 115 H 106 H Respiratory Rate 13 17 13 Blood Pressure 132/62 158/73 H 138/63 Pulse Oximetry 98 97 98 06/09/18 03:00 06/09/18 03:33 06/09/18 03:45 Temperature Pulse Rate 109 H 96 H 90 Respiratory Rate 20 13 12 Blood Pressure 135/62 142/65 H Pulse Oximetry 99 100 06/09/18 04:00 06/09/18 04:15 06/09/18 04:28 Temperature 99.5 F Pulse Rate 92 H 96 H 103 H Respiratory Rate 12 12 13 Blood Pressure 135/53 L 153/66 H Pulse Oximetry 100 100 100 06/09/18 04:30 06/09/18 04:45 06/09/18 05:00 Temperature Pulse Rate 103 H 75 102 H Respiratory Rate 13 16 13 Blood Pressure 151/65 H 152/64 H 148/62 H Pulse Oximetry 100 100 100 06/09/18 05:15 06/09/18 05:30 06/09/18 05:45 Temperature Pulse Rate 115 H 108 H 119 H Respiratory Rate 14 15 16 Blood Pressure 164/69 H 138/61 145/65 H Pulse Oximetry 99 100 100 06/09/18 06:00 06/09/18 06:15 06/09/18 06:30 Temperature Pulse Rate 121 H 103 H 117 H Respiratory Rate 17 12 17 Blood Pressure 156/70 H 124/56 L 139/60 Pulse Oximetry 100 100 100 06/09/18 06:45 06/09/18 07:00 06/09/18 07:15 Temperature Pulse Rate 103 H 96 H 89 Respiratory Rate 13 12 12 Blood Pressure 134/61 143/63 H 151/65 H Pulse Oximetry 99 99 99 06/09/18 07:30 06/09/18 07:45 06/09/18 07:48 Temperature Pulse Rate 92 H 92 H 104 H Respiratory Rate 12 12 15 Blood Pressure 162/65 H 163/68 H Pulse Oximetry 99 99 99 06/09/18 08:00 06/09/18 08:07 06/09/18 08:15 Temperature 98.8 F Pulse Rate 85 104 H 96 H Respiratory Rate 12 13 Blood Pressure 136/60 168/69 H Pulse Oximetry 99 99 06/09/18 08:30 06/09/18 08:45 06/09/18 09:00 Temperature Pulse Rate 96 H 90 93 H Respiratory Rate 14 14 14 Blood Pressure 157/67 H 127/58 L 127/61 Pulse Oximetry 99 99 92 L 06/09/18 09:15 06/09/18 09:30 06/09/18 09:45 Temperature Pulse Rate 86 98 H 100 H Respiratory Rate 14 14 15 Blood Pressure 152/63 H 141/66 H 139/63 Pulse Oximetry 94 L 94 L 93 L 06/09/18 10:00 06/09/18 10:15 06/09/18 10:17 Temperature Pulse Rate 101 H 89 98 H Respiratory Rate 16 16 Blood Pressure 139/62 142/64 H Pulse Oximetry 100 100 06/09/18 10:30 06/09/18 10:45 06/09/18 11:00 Temperature Pulse Rate 94 H 95 H 103 H Respiratory Rate 18 22 32 H Blood Pressure 137/60 136/63 146/64 H Pulse Oximetry 100 100 100 06/09/18 11:15 06/09/18 11:30 06/09/18 11:45 Temperature Pulse Rate 99 H 84 95 H Respiratory Rate 31 H 31 H 31 H Blood Pressure 131/59 L 153/67 H 128/80 Pulse Oximetry 97 97 97 06/09/18 12:00 06/09/18 12:15 06/09/18 12:30 Temperature Pulse Rate 95 H 111 H 100 H Respiratory Rate 35 H 17 30 H Blood Pressure 144/66 H 150/70 H 130/60 Pulse Oximetry 97 98 97 06/09/18 12:45 06/09/18 13:00 06/09/18 13:15 Temperature Pulse Rate 114 H 109 H 87 Respiratory Rate 31 H 31 H 12 Blood Pressure 138/62 123/59 L 106/51 L Pulse Oximetry 100 100 100 06/09/18 13:30 06/09/18 13:45 06/09/18 14:00 Temperature Pulse Rate 95 H 94 H 116 H Respiratory Rate 12 12 16 Blood Pressure 137/61 145/63 H 144/65 H Pulse Oximetry 100 100 100 06/09/18 14:15 06/09/18 14:30 06/09/18 14:45 Temperature Pulse Rate 108 H 97 H 99 H Respiratory Rate 21 20 19 Blood Pressure 147/66 H 140/62 145/65 H Pulse Oximetry 99 100 100 06/09/18 15:00 06/09/18 15:15 06/09/18 15:31 Temperature Pulse Rate 109 H 100 H 108 H Respiratory Rate 22 17 19 Blood Pressure 149/65 H 171/72 H 131/61 Pulse Oximetry 99 99 100 Intake & Output 06/08/18 06/09/18 06/09/18 18:59 06:59 18:59 Intake Total 1503 / 1503 1639 / 1639 1102 / 1102 Output Total 1355 / 1355 1630 / 1630 Balance 148 / 148 9 / 9 1102 / 1102 Weight 65.9 kg Intake: IV 1503 / 1503 1639 / 1639 1102 / 1102 Cleviprex Inj 25 mg In 50 ml @ 150 / 150 150 / 150 50 / 50 1 MG/HR 2 mls/hr IV.CONT TITRATE PRN Rx#:[id number] NS Inj 1,000 ML @ 84 mls/hr IV. 796 / 796 1000 / 1000 1000 / 1000 CONT .[id number] ALEXIS Rx#:[id number] Cerebyx Inj 100 MGPE In NS Inj 52 / 52 104 / 104 52 / 52 50 ML @ 208 mls/hr IV.SIG Q8HR ALEXIS Rx#:[id number] KCl 20 mEq Premix Inj 20 meq In 400 / 400 100 ml @ 50 mls/hr IV.SIG Q2H PRN Rx#:[id number] Glycophos Inj 30 MMOL In NS Inj 280 / 280 250 ML @ 42 mls/hr IV.SIG UNSCH PRN Rx#:[id number] Keppra Inj 500 MG In NS Inj 100 105 / 105 105 / 105 ML @ 400 mls/hr IV.SIG Q12H ALEXIS Rx#:[id number] Output: Urine Amount (Catheter) 1200 / 1200 1550 / 1550 Indwelling Urethral Catheter 1200 / 1200 1550 / 1550 Gastric Drainage 100 / 100 Orogastric Tube 100 / 100 Wound Drainage 55 / 55 80 / 80 # 1 Left Head 55 / 55 80 / 80 Other: Date of Last Bowel Movement 06/02/18 06/02/18 06/09/18 # Bowel Movements 0 - Constitutional no acute distress, thin, somnolent - Routine HEENT Exam Head: Present: normocephalic, atraumatic Eye: Present: PERRL, normal accommodation ENT: Present: mucous membranes moist, oropharynx clear, external ear normal - Routine Neck Exam Present: supple, full ROM, trachea midline - Routine Respiratory Exam Present: patient mechanically ventilated - Routine Cardiovascular Exam Present: RRR - Routine Abdominal Exam Present: soft, normoactive bowel sounds - Routine Extremities Exam Present: full ROM, pulses intact, normal capillary refill - Routine Skin Exam Present: intact, warm, normal turgor - Routine Neurological Exam Somnolent, not lethargic. Eye opens to voice/pain Pupils react Moves all 4 extremities well to stimulus Follows commands intermittently DTR's 2+ bilateral and symmetric Gait: Not tested - Detailed Neurological Exam: Coma Scale Eye Opening: To pressure Verbal Response: None Motor Response: Localizing Sturgeon Coma Scale Total: 8 - Routine Psychiatric Exam Present: unable to assess - Urinary Catheter Management Female External Cath placed during this visit: no Reason for continuing: Not indwelling catheter Indwelling Urethral Catheter Cath placed during this visit: yes Reason for continuing: Hourly intake/output Insertion date: 06/05/18 Insertion time: 08:30 Assessment and Plan - Plan 78 yo female with vague constellation of symptoms GCS-[address] shows 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 hemorrhagic mass Will follow with you 05/30/18: cont neuro checks in ICU Dr. 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 at midnight on Monday night into Monday Minimize sedating meds, etc. 06/03/18: Appears to be a bit more encephalopathic today, possible contribution of hospital delirium versus her mild hydrocephalus, though favor delirium since her level of alertness remains stable Dr. 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 at midnight tonight Continue to minimize sedating meds, etc. 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 Palacios 06/06/18: POD #1. pt had seizure last night requiring intubation. She has been started on Keppra for seizures. On exam she opens eyes and follows commands. Postoperative MRI Brain w/wo contrast has been ordered and pending. Obtain EEG to assess seizures. Continue ventriculostomy draining, add ICP monitoring. Start sq lovenox for dvt prophylaxis. Will follow. 06/07/18: POD #2. patient neurologically stable, opens eyes and follows commands. Postoperative MRI Brain reviewed by neurosurgery team. Spot EEG reports no ongoing seizures, with high amplitude sharp waves on left?breach rhythm. Critical care plans on extubation today. Continue ventriculostomy draining at 10 mmHg. Final pathology pending. Neurology following for seizure management. Will follow. 06/08/18: POD #3. patient neurologically stable, opens eyes and follows commands. Ventriculostomy draining well with controlled ICPs, will continue at 10mmHg. Pathology still pending. cont seizure management per Neurology. dw critical care. will follow. 06/09/2018 POD#4 Remains Neurologically stable, follows commands Stop sedation wean ventilator to CPAP 5 x 12 and FiO2 30% Continue DuoNeb nebs 4 times daily. Check respiratory parameters and consider extubation Agree with Symbicort 160 about 4.5 mcg 1 puff twice daily and Solu-Medrol 40 mg IV twice daily Continue EVD Would maintain SBP 140-160 to improve CPP.
--- NOTE | 2018-06-09 16:54 | MG ---
cc: Daren Robles MD EEG NUMBER: [id number] An 78-year-old, left brain surgery. There is a lot of spikes and some slowing seen on the left hemisphere consistent with a seizure focus and then she appears to have 2 electroencephalographic seizures over the left central temporal head region. They last about 30 seconds or so. This is a much worse looking EEG then prior and I am going to start her on some phenobarbital for that. She is already on Dilantin and Keppra. We will recheck an EEG in the morning with a major left seizure focus. Daren Robles MD DJM/ct , 02:56 PM , 03:00 PM
[2018-06-09] MEDS ORDERED: Fosphenytoin Inj 500 MGPE in Sodium Chlor 0.9% Inj 50 ML IV.SIG ONE (17:09)
--- NOTE | 2018-06-09 17:12 | CT ---
EXAM DATE: 06/09/2018 5:03 PM EST AGE/SEX: 78 years / Female INDICATIONS: Seizure. CLINICAL DATA: This is the patient's initial encounter. Patient reports that signs and symptoms have been present for 1 day and indicates a pain score of Nonresponsive. MEDICAL/SURGICAL HISTORY: Non-responsive. Coronary artery stent. RADIATION DOSE: 48.48 CTDI (mGy) COMPARISON: [facility], CT HEAD W/O CONTRAST, 05/29/2018. . TECHNIQUE: CT of the head without contrast. Using automated exposure control and adjustment of the mA and/or kV according to patient size, radiation dose was kept as low as reasonably achievable to ob tain optimal diagnostic quality images. DICOM format image data is available electronically for revi ew and comparison. FINDINGS: Interval left frontoparietal craniotomy with good approximation of the osteotomy flap. Placement of v entriculostomy with tip of the catheter in the midline in the anterior frontal ventricles. There is a symmetric amount of pneumocephalus in the nondependent frontal region and minimal gas in the middle cranial fossa.. There is a minimal amount of intraventricular gas in the left frontal horn. Ventricular size is similar to the preoperative examination. There is moderate amount of hemorrhage w ithin the occipital horn on the left side and minimal layering blood in the right occipital horn. No blood in the third ventricle. No evidence of midline shift. There is decreased attenuation in the par enchyma of the left frontal parietal mid convexity at the surgical site. Posterior fossa structures a re intact. CONCLUSION: 1. Postoperative findings with ventriculostomy catheter in place, pneumocephalus, and moderate amoun t of intraventricular blood in the left occipital horn and minimal blood in the right occipital horn. 2. Ventricular size is similar to preoperative CT. No evidence of midline shift or mass effect. . Electronically signed by: Clem Kan MD Board Certified Radiologist 06/09/2018 5:11 PM EST
[2018-06-09 18:12] LABS: Hematocrit 34.5 % (35.0-46.0); Hemoglobin 11.5 gm/dL (11.6-15.3); Mean Corpuscular HGB Conc 33.3 % (32.0-36.0); Mean Corpuscular Hemoglobin 33.4 pg (27.0-34.0); Mean Corpuscular Volume 100.2 fL (80.0-100.0); Mean Platelet Volume 8.6 fL (7.0-11.0); Platelet Count 199 th/mm3 (150-450); Red Blood Count 3.44 mil/mm3 (4.00-5.30); Red Cell Distribution Width 14.4 % (11.6-17.2); White Blood Count 16.3 th/mm3 (4.0-11.0)
--- NOTE | 2018-06-09 18:29 | P.PN ---
Subjective Interval history: Remains on ventilator support. Had seizures earlier today ABGs remain adequate. Follows commands when awake. Hemodynamics are stable. Physical Exam Vital signs: Vital Signs 06/08/18 18:30 06/08/18 18:45 06/08/18 19:00 Temperature Pulse Rate 106 H 100 H 103 H Respiratory Rate 16 14 15 Blood Pressure 163/70 H 148/65 H 142/67 H Pulse Oximetry 100 100 100 06/08/18 19:15 06/08/18 19:30 06/08/18 19:45 Temperature Pulse Rate 105 H 114 H 111 H Respiratory Rate 15 18 18 Blood Pressure 147/65 H 157/69 H 154/69 H Pulse Oximetry 98 98 97 06/08/18 20:00 06/08/18 20:15 06/08/18 20:26 Temperature 99.4 F Pulse Rate 116 H 97 H Respiratory Rate 24 12 Blood Pressure 164/75 H 161/69 H Pulse Oximetry 94 L 98 06/08/18 20:30 06/08/18 20:45 06/08/18 21:00 Temperature Pulse Rate 98 H 99 H 89 Respiratory Rate 12 13 13 Blood Pressure 136/60 167/72 H 148/66 H Pulse Oximetry 98 100 100 06/08/18 21:15 06/08/18 21:30 06/08/18 21:45 Temperature Pulse Rate 116 H 107 H 114 H Respiratory Rate 17 12 13 Blood Pressure 183/79 H 140/60 168/73 H Pulse Oximetry 100 100 100 06/08/18 22:00 06/08/18 22:15 06/08/18 22:30 Temperature Pulse Rate 86 89 86 Respiratory Rate 12 14 13 Blood Pressure 127/58 L 137/63 130/63 Pulse Oximetry 100 100 99 06/08/18 22:45 06/08/18 23:00 06/08/18 23:15 Temperature Pulse Rate 83 88 92 H Respiratory Rate 12 12 12 Blood Pressure 133/55 L 137/63 148/67 H Pulse Oximetry 100 99 100 06/08/18 23:30 06/08/18 23:45 06/08/18 23:58 Temperature Pulse Rate 97 H 97 H 81 Respiratory Rate 13 12 Blood Pressure 132/60 146/65 H Pulse Oximetry 100 99 100 06/09/18 00:00 06/09/18 00:15 06/09/18 00:30 Temperature 98.9 F Pulse Rate 97 H 95 H 104 H Respiratory Rate 15 12 16 Blood Pressure 146/64 H 137/63 160/71 H Pulse Oximetry 99 100 100 06/09/18 00:45 06/09/18 01:00 06/09/18 01:15 Temperature Pulse Rate 96 H 102 H 100 H Respiratory Rate 12 12 13 Blood Pressure 143/63 H 145/66 H 139/63 Pulse Oximetry 100 100 99 06/09/18 01:30 06/09/18 01:45 06/09/18 02:00 Temperature Pulse Rate 98 H 109 H 98 H Respiratory Rate 12 12 13 Blood Pressure 154/69 H 153/68 H 132/59 L Pulse Oximetry 100 100 99 06/09/18 02:15 06/09/18 02:30 06/09/18 02:45 Temperature Pulse Rate 99 H 115 H 106 H Respiratory Rate 13 17 13 Blood Pressure 132/62 158/73 H 138/63 Pulse Oximetry 98 97 98 06/09/18 03:00 06/09/18 03:33 06/09/18 03:45 Temperature Pulse Rate 109 H 96 H 90 Respiratory Rate 20 13 12 Blood Pressure 135/62 142/65 H Pulse Oximetry 99 100 06/09/18 04:00 06/09/18 04:15 06/09/18 04:28 Temperature 99.5 F Pulse Rate 92 H 96 H 103 H Respiratory Rate 12 12 13 Blood Pressure 135/53 L 153/66 H Pulse Oximetry 100 100 100 06/09/18 04:30 06/09/18 04:45 06/09/18 05:00 Temperature Pulse Rate 103 H 75 102 H Respiratory Rate 13 16 13 Blood Pressure 151/65 H 152/64 H 148/62 H Pulse Oximetry 100 100 100 06/09/18 05:15 06/09/18 05:30 06/09/18 05:45 Temperature Pulse Rate 115 H 108 H 119 H Respiratory Rate 14 15 16 Blood Pressure 164/69 H 138/61 145/65 H Pulse Oximetry 99 100 100 06/09/18 06:00 06/09/18 06:15 06/09/18 06:30 Temperature Pulse Rate 121 H 103 H 117 H Respiratory Rate 17 12 17 Blood Pressure 156/70 H 124/56 L 139/60 Pulse Oximetry 100 100 100 06/09/18 06:45 06/09/18 07:00 06/09/18 07:15 Temperature Pulse Rate 103 H 96 H 89 Respiratory Rate 13 12 12 Blood Pressure 134/61 143/63 H 151/65 H Pulse Oximetry 99 99 99 06/09/18 07:30 06/09/18 07:45 06/09/18 07:48 Temperature Pulse Rate 92 H 92 H 104 H Respiratory Rate 12 12 15 Blood Pressure 162/65 H 163/68 H Pulse Oximetry 99 99 99 06/09/18 08:00 06/09/18 08:07 06/09/18 08:15 Temperature 98.8 F Pulse Rate 85 104 H 96 H Respiratory Rate 12 13 Blood Pressure 136/60 168/69 H Pulse Oximetry 99 99 06/09/18 08:30 06/09/18 08:45 06/09/18 09:00 Temperature Pulse Rate 96 H 90 93 H Respiratory Rate 14 14 14 Blood Pressure 157/67 H 127/58 L 127/61 Pulse Oximetry 99 99 92 L 06/09/18 09:15 06/09/18 09:30 06/09/18 09:45 Temperature Pulse Rate 86 98 H 100 H Respiratory Rate 14 14 15 Blood Pressure 152/63 H 141/66 H 139/63 Pulse Oximetry 94 L 94 L 93 L 06/09/18 10:00 06/09/18 10:15 06/09/18 10:17 Temperature Pulse Rate 101 H 89 98 H Respiratory Rate 16 16 Blood Pressure 139/62 142/64 H Pulse Oximetry 100 100 06/09/18 10:30 06/09/18 10:45 06/09/18 11:00 Temperature Pulse Rate 94 H 95 H 103 H Respiratory Rate 18 22 32 H Blood Pressure 137/60 136/63 146/64 H Pulse Oximetry 100 100 100 06/09/18 11:15 06/09/18 11:30 06/09/18 11:45 Temperature Pulse Rate 99 H 84 95 H Respiratory Rate 31 H 31 H 31 H Blood Pressure 131/59 L 153/67 H 128/80 Pulse Oximetry 97 97 97 06/09/18 12:00 06/09/18 12:15 06/09/18 12:30 Temperature Pulse Rate 95 H 111 H 100 H Respiratory Rate 35 H 17 30 H Blood Pressure 144/66 H 150/70 H 130/60 Pulse Oximetry 97 98 97 06/09/18 12:45 06/09/18 13:00 06/09/18 13:15 Temperature Pulse Rate 114 H 109 H 87 Respiratory Rate 31 H 31 H 12 Blood Pressure 138/62 123/59 L 106/51 L Pulse Oximetry 100 100 100 06/09/18 13:30 06/09/18 13:45 06/09/18 14:00 Temperature Pulse Rate 95 H 94 H 116 H Respiratory Rate 12 12 16 Blood Pressure 137/61 145/63 H 144/65 H Pulse Oximetry 100 100 100 06/09/18 14:15 06/09/18 14:30 06/09/18 14:45 Temperature Pulse Rate 108 H 97 H 99 H Respiratory Rate 21 20 19 Blood Pressure 147/66 H 140/62 145/65 H Pulse Oximetry 99 100 100 06/09/18 15:00 06/09/18 15:15 06/09/18 15:31 Temperature Pulse Rate 109 H 100 H 108 H Respiratory Rate 22 17 19 Blood Pressure 149/65 H 171/72 H 131/61 Pulse Oximetry 99 99 100 06/09/18 15:49 06/09/18 16:00 06/09/18 16:30 Temperature 98.8 F Pulse Rate 130 H 109 H 112 H Respiratory Rate 17 12 13 Blood Pressure 142/62 H Pulse Oximetry 100 100 99 06/09/18 17:00 06/09/18 17:30 06/09/18 18:00 Temperature Pulse Rate 113 H 115 H 102 H Respiratory Rate 39 H 13 12 Blood Pressure 139/61 137/56 L 143/64 H Pulse Oximetry 100 99 99 Intake & Output 06/08/18 06/09/18 06/09/18 18:59 06:59 18:59 Intake Total 1503 / 1503 1639 / 1639 1142 / 1142 Output Total 1355 / 1355 1630 / 1630 900 / 900 Balance 148 / 148 9 / 9 242 / 242 Weight 65.9 kg Intake: IV 1503 / 1503 1639 / 1639 1102 / 1102 Cleviprex Inj 25 mg In 50 ml @ 150 / 150 150 / 150 50 / 50 1 MG/HR 2 mls/hr IV.CONT TITRATE PRN Rx#:[id number] NS Inj 1,000 ML @ 84 mls/hr IV. 796 / 796 1000 / 1000 1000 / 1000 CONT .[id number] [facility] Rx#:[id number] Cerebyx Inj 100 MGPE In NS Inj 52 / 52 104 / 104 52 / 52 50 ML @ 208 mls/hr IV.SIG Q8HR [facility] Rx#:[id number] KCl 20 mEq Premix Inj 20 meq In 400 / 400 100 ml @ 50 mls/hr IV.SIG Q2H PRN Rx#:[id number] Glycophos Inj 30 MMOL In NS Inj 280 / 280 250 ML @ 42 mls/hr IV.SIG UNSCH PRN Rx#:[id number] Keppra Inj 500 MG In NS Inj 100 105 / 105 105 / 105 ML @ 400 mls/hr IV.SIG Q12H [facility] Rx#:[id number] Oral 0 / 0 Tube Feeding 10 / 10 Tube Irrigant 30 / 30 Output: Urine 900 / 900 Urine Amount (Catheter) 1200 / 1200 1550 / 1550 Indwelling Urethral Catheter 1200 / 1200 1550 / 1550 Gastric Drainage 100 / 100 Orogastric Tube 100 / 100 Wound Drainage 55 / 55 80 / 80 # 1 Left Head 55 / 55 80 / 80 Other: Date of Last Bowel Movement 06/02/18 06/02/18 06/09/18 # Bowel Movements 0 1 Narrative: patient is intubated GENERAL: Elderly white female intubated on vent support SKIN: Warm and dry. HEAD: Atraumatic. Normocephalic. EYES: Pupils equal and round. No scleral icterus. No injection or drainage. ENT: No nasal bleeding or discharge. Mucous membranes pink and moist. NECK: Trachea midline. No JVD. CARDIOVASCULAR: Regular rate and rhythm. RESPIRATORY: No accessory muscle use. Bilateral expiratory wheezes. Breath sounds equal bilaterally. GASTROINTESTINAL: Abdomen soft, non-tender, nondistended. Hepatic and splenic margins not palpable. MUSCULOSKELETAL: Extremities without clubbing, cyanosis, or edema. No obvious deformities. NEUROLOGICAL: Partially sedated and lethargic. PSYCHIATRIC: Cannot assess - Urinary Catheter Management Female External Cath placed during this visit: no Reason for continuing: Not indwelling catheter Indwelling Urethral Catheter Cath placed during this visit: yes Reason for continuing: Hourly intake/output Insertion date: 06/05/18 Insertion time: 08:30 Results - Labs CBC & Chem 7: 06/09/18 17:57 06/09/18 04:55 Laboratory Results - last 24 hr 01/06/09/18 06/09/18 19:54 04:55 11:03 WBC RBC Hgb Hct MCV MCH MCHC RDW Plt Count MPV Sodium 135 L Potassium 4.0 D 4.1 Chloride 101 Carbon Dioxide 22.2 Anion Gap 12 BUN 7 Creatinine 0.25 L Estimated GFR Greater than 89 Random Glucose 102 Calcium 8.0 L Phosphorus 1.9 L 2.7 Phenytoin 06/09/18 06/09/18 13:06 17:57 WBC 16.3 H RBC 3.44 L Hgb 11.5 L Hct 34.5 L MCV 100.2 H MCH 33.4 MCHC 33.3 RDW 14.4 Plt Count 199 MPV 8.6 Sodium Potassium Chloride Carbon Dioxide Anion Gap BUN Creatinine Estimated GFR Random Glucose Calcium Phosphorus Phenytoin 6.9 L Microbiology 06/09/18 06:35 Sputum - Endotracheal Gram Stain - Final - Imaging Impressions Head CT 06/09/18 14:55 CONCLUSION: 1. Postoperative findings with ventriculostomy catheter in place, pneumocephalus, and moderate amount of intraventricular blood in the left occipital horn and minimal blood in the right occipital horn. 2. Ventricular size is similar to preoperative CT. No evidence of midline shift or mass effect. . Assessment and Plan - Assessment (1) COPD (chronic obstructive pulmonary disease) Code(s): J44.9 - Chronic obstructive pulmonary disease, unspecified Status: Acute (2) Right upper lobe pulmonary nodule Code(s): R91.1 - Solitary pulmonary nodule Status: Acute (3) Intraventricular hemorrhage, nontraumatic Code(s): I61.5 - Nontraumatic intracerebral hemorrhage, intraventricular Status: Acute (4) Hypertensive emergency Code(s): I16.1 - Hypertensive emergency Status: Acute (5) Metabolic encephalopathy Code(s): G93.41 - Metabolic encephalopathy Status: Acute (6) Altered mental status Code(s): R41.82 - Altered mental status, unspecified Status: Acute (7) History of peripheral arterial disease Code(s): Z86.79 - Personal history of other diseases of the circulatory system Status: Chronic (8) History of hypertension Code(s): Z86.79 - Personal history of other diseases of the circulatory system Status: Chronic (9) Cessation of tobacco use in previous 12 months Code(s): Z87.891 - Personal history of nicotine dependence Status: Chronic - Plan 1 continue to wean ventilator to CPAP 5 x 12 and FiO2 30% 2. Continue DuoNeb nebs 4 times daily. 3. CBC BMP in a.m. 4. Workup for lung mass when clinically stable 5. Check respiratory parameters and consider extubation 6 Symbicort 160 about 4.5 mcg 1 puff twice daily 7. Solu-Medrol 40 mg IV twice daily 8. Controlled seizures with Keppra. (6) Altered mental status Qualifiers: Altered mental status type: unspecified Qualified Code(s): R41.82 - Altered mental status, unspecified
[2018-06-09 18:38] LABS: Anion Gap 13 meq/L (5-15); Blood Urea Nitrogen 7 mg/dL (7-18); Calcium 8.1 mg/dL (8.5-10.1); Carbon Dioxide 22.8 meq/L (21.0-32.0); Chloride 100 meq/L (98-107); Glomerular Filtration Rate Greater Than 89 mL/min (>89); Glucose,Random 103 mg/dL (74-106); Sodium 136 meq/L (136-145)
[2018-06-09 18:45] LABS: Potassium 2.9 meq/L (3.5-5.1)
[2018-06-09] MEDS ORDERED: Sodium Chloride 1 GM Tablet PO ONE (18:47)
[2018-06-09] MEDS ORDERED: Potassium Chloride 25 MEQ Effervescent Tablet PO ONE (18:48)
[2018-06-09] MEDS: Potassium Chlor 20 mEq Premix 20 MEQ/100 ML PIGGYBACK IV.SIG PRN (18:49)
[2018-06-09] MEDS ORDERED: Sodium Chloride 23.4% Inj 188 MEQ in Sod Chloride 0.9% Inj 1,000 ML IV.CONT SCH (20:00)
[2018-06-09] MEDS: Potassium Chlor 10 mEq Premix 10 MEQ/100 ML PIGGYBACK IV.SIG SCH ×3 (21:24→23:15)
[2018-06-09] MEDS: Fosphenytoin Inj 200 MGPE in Sodium Chlor 0.9% Inj 50 ML IV.SIG SCH (21:40)
[2018-06-10] MEDS: levETIRAcetam Inj 1,500 MG in Sodium Chlor 0.9% Inj 100 ML IV.SIG SCH ×3 (01:47→22:41)
[2018-06-10] MEDS: PHENobarbital Inj 130 MG/ML Vial IV.PUSH SCH (04:10)
[2018-06-10] MEDS: Artificial Tears Opth Drops 15 ML Bottle EACH EYE SCH ×3 (04:13→21:13)
[2018-06-10 06:44] LABS: Alanine Aminotransferase 87 U/L (10-53); Albumin 1.5 g/dL (3.4-5.0); Alkaline Phosphatase 79 U/L (45-117); Anion Gap 10 meq/L (5-15); Aspartate Aminotransferase 143 U/L (15-37); Blood Urea Nitrogen 10 mg/dL (7-18); Calcium 7.6 mg/dL (8.5-10.1); Chloride 103 meq/L (98-107); Glomerular Filtration Rate Greater Than 89 mL/min (>89); Glucose,Random 139 mg/dL (74-106); Magnesium 1.7 mg/dL (1.5-2.5); Phenytoin (Dilantin) 11.6 mcg/mL (10.0-20.0); Phosphorus 2.4 mg/dL (2.5-4.9); Potassium 4.1 meq/L (3.5-5.1); Total Protein 5.4 g/dL (6.4-8.2)
[2018-06-10 06:50] LABS: Sodium 136 meq/L (136-145)
--- NOTE | 2018-06-10 08:22 | P.PNNS ---
Subjective Interval history: Seizure yesterday, and last night, increased Cerebyx and Keppra D/C'ed Barbs would prefer to maintain on 2 agents and high therapeutic levels of Cerebyx, usually best with brain tumors K+ replenished remains Neurologically stable, still intubated, no other overnight events. Physical Exam Vital signs: Vital Signs 06/09/18 08:30 06/09/18 08:45 06/09/18 09:00 Temperature Pulse Rate 96 H 90 93 H Respiratory Rate 14 14 14 Blood Pressure 157/67 H 127/58 L 127/61 Pulse Oximetry 99 99 92 L 06/09/18 09:15 06/09/18 09:30 06/09/18 09:45 Temperature Pulse Rate 86 98 H 100 H Respiratory Rate 14 14 15 Blood Pressure 152/63 H 141/66 H 139/63 Pulse Oximetry 94 L 94 L 93 L 06/09/18 10:00 06/09/18 10:15 06/09/18 10:17 Temperature Pulse Rate 101 H 89 98 H Respiratory Rate 16 16 Blood Pressure 139/62 142/64 H Pulse Oximetry 100 100 06/09/18 10:30 06/09/18 10:45 06/09/18 11:00 Temperature Pulse Rate 94 H 95 H 103 H Respiratory Rate 18 22 32 H Blood Pressure 137/60 136/63 146/64 H Pulse Oximetry 100 100 100 06/09/18 11:15 06/09/18 11:30 06/09/18 11:45 Temperature Pulse Rate 99 H 84 95 H Respiratory Rate 31 H 31 H 31 H Blood Pressure 131/59 L 153/67 H 128/80 Pulse Oximetry 97 97 97 06/09/18 12:00 06/09/18 12:15 06/09/18 12:30 Temperature Pulse Rate 95 H 111 H 100 H Respiratory Rate 35 H 17 30 H Blood Pressure 144/66 H 150/70 H 130/60 Pulse Oximetry 97 98 97 06/09/18 12:45 06/09/18 13:00 06/09/18 13:15 Temperature Pulse Rate 114 H 109 H 87 Respiratory Rate 31 H 31 H 12 Blood Pressure 138/62 123/59 L 106/51 L Pulse Oximetry 100 100 100 06/09/18 13:30 06/09/18 13:45 06/09/18 14:00 Temperature Pulse Rate 95 H 94 H 116 H Respiratory Rate 12 12 16 Blood Pressure 137/61 145/63 H 144/65 H Pulse Oximetry 100 100 100 06/09/18 14:15 06/09/18 14:30 06/09/18 14:45 Temperature Pulse Rate 108 H 97 H 99 H Respiratory Rate 21 20 19 Blood Pressure 147/66 H 140/62 145/65 H Pulse Oximetry 99 100 100 06/09/18 15:00 06/09/18 15:15 06/09/18 15:31 Temperature Pulse Rate 109 H 100 H 108 H Respiratory Rate 22 17 19 Blood Pressure 149/65 H 171/72 H 131/61 Pulse Oximetry 99 99 100 06/09/18 15:49 06/09/18 16:00 06/09/18 16:30 Temperature 98.8 F Pulse Rate 130 H 109 H 112 H Respiratory Rate 17 12 13 Blood Pressure 142/62 H Pulse Oximetry 100 100 99 06/09/18 17:00 06/09/18 17:30 06/09/18 18:00 Temperature Pulse Rate 113 H 115 H 102 H Respiratory Rate 39 H 13 12 Blood Pressure 139/61 137/56 L 143/64 H Pulse Oximetry 100 99 99 06/09/18 18:30 06/09/18 19:00 06/09/18 19:30 Temperature Pulse Rate 99 H 102 H Respiratory Rate 12 12 Blood Pressure 137/61 131/59 L 130/56 L Pulse Oximetry 100 100 06/09/18 19:37 06/09/18 20:00 06/09/18 20:30 Temperature 99.2 F Pulse Rate 111 H 117 H 126 H Respiratory Rate 14 14 18 Blood Pressure 147/67 H 163/67 H Pulse Oximetry 100 100 06/09/18 21:00 06/09/18 21:30 06/09/18 22:00 Temperature Pulse Rate 95 H 94 H 79 Respiratory Rate 12 12 12 Blood Pressure 123/56 L 142/65 H 110/62 Pulse Oximetry 97 98 100 06/09/18 22:30 06/09/18 23:00 06/09/18 23:30 Temperature Pulse Rate 76 77 78 Respiratory Rate 12 12 12 Blood Pressure 108/54 L 115/57 L 120/57 L Pulse Oximetry 100 100 100 06/09/18 23:46 06/10/18 00:00 06/10/18 00:30 Temperature 99.8 F H Pulse Rate 79 80 78 Respiratory Rate 12 12 12 Blood Pressure 123/59 L 111/56 L Pulse Oximetry 100 100 100 06/10/18 01:00 06/10/18 01:30 06/10/18 02:00 Temperature Pulse Rate 91 H 96 H 83 Respiratory Rate 12 12 12 Blood Pressure 134/63 122/57 L 109/54 L Pulse Oximetry 98 99 100 06/10/18 02:30 06/10/18 03:00 06/10/18 03:30 Temperature Pulse Rate 80 80 81 Respiratory Rate 12 12 12 Blood Pressure 120/58 L 116/56 L 124/60 Pulse Oximetry 99 100 100 06/10/18 03:54 06/10/18 04:00 06/10/18 04:30 Temperature 98.9 F Pulse Rate 88 91 H 98 H Respiratory Rate 12 12 16 Blood Pressure 120/59 L 128/60 Pulse Oximetry 100 100 98 06/10/18 05:00 06/10/18 05:30 06/10/18 06:00 Temperature Pulse Rate 88 85 92 H Respiratory Rate 12 12 15 Blood Pressure 115/58 L 151/65 H 130/58 L Pulse Oximetry 100 99 100 06/10/18 06:30 Temperature Pulse Rate 79 Respiratory Rate 12 Blood Pressure 103/51 L Pulse Oximetry 100 Intake & Output 06/09/18 06/10/18 06/10/18 18:59 06:59 18:59 Intake Total 1317 / 1317 544 / 544 Output Total 900 / 900 550 / 550 Balance 417 / 417 -6 / -6 Weight 67.3 kg Intake: IV 1277 / 1277 369 / 369 Cleviprex Inj 25 mg In 50 ml @ 50 / 50 1 MG/HR 2 mls/hr IV.CONT TITRATE PRN Rx#:[id number] NS Inj 1,000 ML @ 84 mls/hr IV. 1000 / 1000 CONT .[id number] [facility] Rx#:[id number] Cerebyx Inj 200 MGPE In NS Inj 52 / 52 54 / 54 50 ML @ 216 mls/hr IV.SIG Q12HR [facility] Rx#:[id number] Cerebyx Inj 500 MGPE In NS Inj 60 / 60 50 ML @ 240 mls/hr IV.SIG ONCE ONE Rx#:[id number] KCl 10 mEq Premix Inj 10 meq In 100 / 100 100 ml @ 100 mls/hr IV.SIG Q1H [facility] Rx#:[id number] KCl 20 mEq Premix Inj 20 meq In 100 / 100 100 ml @ 50 mls/hr IV.SIG Q2H PRN Rx#:[id number] Keppra Inj 1,500 MG In NS Inj 115 / 115 115 / 115 100 ML @ 400 mls/hr IV.SIG Q12H [facility] Rx#:[id number] Oral 0 / 0 Tube Feeding 10 / 10 175 / 175 Tube Irrigant 30 / 30 Output: Urine 900 / 900 Urine Amount (Catheter) 450 / 450 Indwelling Urethral Catheter 450 / 450 Wound Drainage 100 / 100 # 1 Left Head 100 / 100 Other: Date of Last Bowel Movement 06/09/18 06/09/18 # Bowel Movements 1 - Constitutional no acute distress, thin, cooperative - Routine HEENT Exam Head: Present: normocephalic, atraumatic Eye: Present: EOMI, PERRL, normal accommodation ENT: Present: mucous membranes moist, oropharynx clear Comments: Incision clean dry, mamadou intact - Routine Neck Exam Present: supple, full ROM, trachea midline - Routine Respiratory Exam Present: patient mechanically ventilated - Routine Cardiovascular Exam Present: RRR - Routine Abdominal Exam Present: soft, normoactive bowel sounds - Routine Extremities Exam Present: full ROM, pulses intact, normal capillary refill - Routine Neurological Exam Somnolent, but easily arousable Eyes open to voice Pupils react Moves all 4 extremities Follows commands - Detailed Neurological Exam: Coma Scale Eye Opening: To sound Verbal Response: None Motor Response: Obey commands Clever Coma Scale Total: 10 - Routine Psychiatric Exam Present: unable to assess - Urinary Catheter Management Female External Cath placed during this visit: no Reason for continuing: Not indwelling catheter Indwelling Urethral Catheter Cath placed during this visit: yes Reason for continuing: Hourly intake/output Insertion date: 06/05/18 Insertion time: 08:30 Assessment and Plan - Plan 78 yo female with vague constellation of symptoms GCS-[address] shows 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 hemorrhagic mass Will follow with you 05/30/18: cont neuro checks in ICU Dr. 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 at midnight on Monday night into Monday Minimize sedating meds, etc. 06/03/18: Appears to be a bit more encephalopathic today, possible contribution of hospital delirium versus her mild hydrocephalus, though favor delirium since her level of alertness remains stable Dr. 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 at midnight tonight Continue to minimize sedating meds, etc. 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 Palacios 06/06/18: POD #1. pt had seizure last night requiring intubation. She has been started on Keppra for seizures. On exam she opens eyes and follows commands. Postoperative MRI Brain w/wo contrast has been ordered and pending. Obtain EEG to assess seizures. Continue ventriculostomy draining, add ICP monitoring. Start sq lovenox for dvt prophylaxis. Will follow. 06/07/18: POD #2. patient neurologically stable, opens eyes and follows commands. Postoperative MRI Brain reviewed by neurosurgery team. Spot EEG reports no ongoing seizures, with high amplitude sharp waves on left?breach rhythm. Critical care plans on extubation today. Continue ventriculostomy draining at 10 mmHg. Final pathology pending. Neurology following for seizure management. Will follow. 06/08/18: POD #3. patient neurologically stable, opens eyes and follows commands. Ventriculostomy draining well with controlled ICPs, will continue at 10mmHg. Pathology still pending. cont seizure management per Neurology. dw critical care. will follow. 06/09/2018 POD#4 Remains Neurologically stable, follows commands Stop sedation wean ventilator to CPAP 5 x 12 and FiO2 30% Continue DuoNeb nebs 4 times daily. Check respiratory parameters and consider extubation Agree with Symbicort 160 about 4.5 mcg 1 puff twice daily and Solu-Medrol 40 mg IV twice daily Continue EVD Would maintain SBP 140-160 to improve CPP. 06/10/2018 POD#5 Seizure yesterday, and last night, have increased Cerebyx and Keppra D/C'ed Barbs would prefer to maintain on 2 agents and high therapeutic levels of Cerebyx, usually best with brain tumors Free Dilantin levels not easily obtainable here. Lets keep level around 20 with standard level remains Neurologically stable wean ventilator to CPAP 5 x 12 and FiO2 30% and if OK, may extubate from Neurosurgical standpoint.
[2018-06-10] MEDS: Fosphenytoin Inj 200 MGPE in Sodium Chlor 0.9% Inj 50 ML IV.SIG SCH ×3 (09:25→21:19)
[2018-06-10] MEDS: Enoxaparin Inj 40 MG/0.4 ML Syringe SQ SCH (09:25)
[2018-06-10] MEDS: Metoprolol Tartrate 50 MG Tablet PO SCH ×2 (09:27→21:11)
[2018-06-10] MEDS: MethylPREDNISolone Sod Succinate Inj 40 MG/ML Vial IV.PUSH SCH ×2 (09:27→21:17)
[2018-06-10] MEDS: Senna/Docusate Sodium 8.6/50 MG Tablet PO SCH ×2 (09:27→21:11)
[2018-06-10] MEDS: Pantoprazole Inj 40 MG Vial IV.PUSH SCH (09:27)
[2018-06-10] MEDS: Budesonide-Formoterol 160/4.5 MCG 6 GM Inhaler INH SCH ×2 (09:28→21:18)
[2018-06-10] MEDS: amLODIPine 5 MG Tablet PO SCH ×2 (09:28→18:38)
[2018-06-10] MEDS ORDERED: Cisatracurium Inj 100 MG in Sodium Chlor 0.9% Inj 240 ML IV.CONT PRN (09:31)
[2018-06-10] MEDS ORDERED: Midazolam 100 MG/100 ML Inj 100 MG/100 ML BAG IV.CONT PRN (09:31)
[2018-06-10] MEDS ORDERED: Fosphenytoin Inj 500 MGPE in Sodium Chlor 0.9% Inj 50 ML IV.SIG ONE (10:00)
--- NOTE | 2018-06-10 10:24 | P.PNNEU ---
Subjective Active Medications: Active Medications Acetaminophen (Tylenol) 650 mg PO Q6H PRN PRN Reason: PAIN 1-10 AND/OR FEVER >101F Al Hydroxide/Mg Hydroxide (Milk Of Heidi Treviño) 30 ml PO Q12H PRN PRN Reason: Mild Constipation Albuterol (Duoneb Neb (Batsheva)) 1 ampul NEB Q4HR NEB [facility] Last Admin: 06/10/18 08:24 Dose: 1 ampul Albuterol (Albuterol Neb (Prn)) 2.5 mg NEB Q2HR NEB PRN PRN Reason: DYSPNEA Amlodipine Besylate (Norvasc) 10 mg PO DAILY [facility] Artificial Tears (Tears Naturale Opth Drops) 1 drop EACH EYE Q8H [facility] Last Admin: 06/10/18 04:13 Dose: 1 drop Bisacodyl (Dulcolax Supp) 10 mg RECTAL DAILY PRN PRN Reason: SEVERE CONSITIPATION Budesonide/Formoterol Fumarate (Symbicort 160/4.5 Mcg Inh) 1 puff INH BID [facility] Last Admin: 06/10/18 09:28 Dose: Not Given Clonidine HCl (Catapres) 0.1 mg PO Q8HR [facility] Last Admin: 06/10/18 05:30 Dose: 0.1 mg Enalaprilat (Vasotec Inj) 2.5 mg IV.PUSH Q6H PRN PRN Reason: SBP > 150 Last Admin: 06/07/18 09:03 Dose: 2.5 mg Enoxaparin Sodium (Lovenox Inj) 40 mg SQ DAILY [facility] Last Admin: 06/10/18 09:25 Dose: 40 mg Hydralazine HCl (Apresoline Inj) 10 mg IV.PUSH Q30M PRN PRN Reason: SBP > 160 Last Admin: 06/05/18 13:30 Dose: 10 mg Nicardipine HCl 25 mg/ Sodium (Chloride) 250 mls @ 50 mls/hr IV.CONT TITRATE PRN; Protocol PRN Reason: Per Protocol Last Titration: 06/05/18 13:39 Dose: 0 mg/hr, 0 mls/hr Magnesium Sulfate 4 gm/ Sodium (Chloride) 100 mls @ 50 mls/hr IV.SIG UNSCH PRN PRN Reason: For Magnesium 0.9 - 1.1 mg/dL Magnesium Sulfate 2 gm/ Sodium (Chloride) 100 mls @ 50 mls/hr IV.SIG UNSCH PRN PRN Reason: For Magnesium 1.2 - 1.6 mg/dL Potassium Chloride (Kcl 40 Meq Premix Inj) 40 meq in 100 mls @ 25 mls/hr IV.SIG Q2H PRN PRN Reason: For Potassium 2.8 - 3.2 mEq/L Potassium Chloride (Kcl 20 Meq Premix Inj) 20 meq in 100 mls @ 50 mls/hr IV.SIG Q2H PRN PRN Reason: For Potassium 3.3 - 3.5 mEq/L Last Infusion: 06/07/18 07:00 Dose: Infused Potassium Chloride (Kcl 40 Meq Premix Inj) 40 meq in 100 mls @ 25 mls/hr IV.SIG UNSCH PRN PRN Reason: For Potassium 3.3 - 3.5 mEq/L Potassium Chloride (Kcl 20 Meq Premix Inj) 20 meq in 100 mls @ 50 mls/hr IV.SIG Q2H PRN PRN Reason: For Potassium 2.8 - 3.2 mEq/L Last Infusion: 06/09/18 21:00 Dose: Infused Potassium Phosphate 30 mmol/ (Sodium Chloride) 260 mls @ 42 mls/hr IV.SIG UNSCH PRN PRN Reason: SEE LABEL COMMENTS Dexmedetomidine HCl 200 mcg/ (Sodium Chloride) 50 mls @ 2.79 mls/hr IV.CONT TITRATE PRN; Protocol PRN Reason: Per Protocol Last Titration: 06/07/18 08:10 Dose: 0 mcg/kg/hr, 0 mls/hr Clevidipine (Cleviprex Inj) 25 mg in 50 mls @ 2 mls/hr IV.CONT TITRATE PRN; Protocol PRN Reason: Per protocol Last Titration: 06/09/18 10:10 Dose: Infused Sodium Glycerophosphate 30 (mmol/ Sodium Chloride) 280 mls @ 42 mls/hr IV.SIG UNSCH PRN PRN Reason: For Phosphorus < 2.5 mg/dL Last Infusion: 06/09/18 06:45 Dose: Infused Sodium Chloride 188 meq/ (Sodium Chloride) 1,047 mls @ 42 mls/hr IV.CONT .Q24H [facility] Stop: 06/10/18 19:59 Last Admin: 06/09/18 21:38 Dose: 42 mls/hr Midazolam HCl (Versed Inj) 100 mg in 100 mls @ 2 mls/hr IV.CONT TITRATE PRN; Protocol PRN Reason: See protocol Cisatracurium Besylate 100 mg/ (Sodium Chloride) 250 mls @ 10.09 mls/hr IV.CONT TITRATE PRN; Protocol PRN Reason: Per Protocol Levetiracetam 1,500 mg/ Sodium (Chloride) 115 mls @ 400 mls/hr IV.SIG Q12H [facility] Fosphenytoin Sodium 200 mgpe/ (Sodium Chloride) 54 mls @ 216 mls/hr IV.SIG Q8HR [facility] Labetalol HCl (Trandate Inj) 10 mg IV.PUSH Q1H PRN PRN Reason: Sbp>140, Dbp>90 Lactulose (Lactulose Liq) 30 ml PO DAILY PRN PRN Reason: SEVERE CONSITIPATION Lisinopril (Prinivil) 40 mg PO DAILY [facility] Last Admin: 06/09/18 08:45 Dose: 40 mg Lorazepam (Ativan Inj) 1 mg IV.PUSH Q10M PRN PRN Reason: SEIZURES Magnesium Oxide (Mag-Ox) 800 mg PO UNSCH PRN PRN Reason: For Magnesium 1.2 - 1.6 mg/dL Methylprednisolone Sodium Succinate (Solumedrol Inj) 40 mg IV.PUSH Q12HR [facility] Last Admin: 06/10/18 09:27 Dose: 40 mg Metoprolol Tartrate (Lopressor) 50 mg PO BID [facility] Last Admin: 06/10/18 09:27 Dose: 50 mg Morphine Sulfate (Morphine Inj) 2 mg IV.PUSH Q30M PRN PRN Reason: SEVERE ANXIETY OR AGITATION Last Admin: 06/06/18 05:20 Dose: 2 mg Pantoprazole Sodium (Protonix Inj) 40 mg IV.PUSH DAILY [facility] Last Admin: 06/10/18 09:27 Dose: 40 mg Potassium Chloride (Kcl Liq) 40 meq PO UNSCH PRN PRN Reason: Potassium level 3.3-3.5 mEq/L Last Admin: 06/02/18 06:38 Dose: 40 meq Potassium Chloride (Kcl Liq) 40 meq PO UNSCH PRN PRN Reason: Potassium level 3.3-3.5 mEq/L Potassium Phosphate (K-Phos Original) 2,000 mg PO Q4H PRN PRN Reason: Phosphorus Less Than 2.5 mg/dL Potassium Phosphate (K-Phos Original) 2,000 mg PO UNSCH PRN PRN Reason: SEE LABEL COMMENTS Last Admin: 06/08/18 16:09 Dose: 2,000 mg Pravastatin Sodium (Pravachol) 40 mg PO DAILY [facility] Last Admin: 06/10/18 09:27 Dose: 40 mg Senna/Docusate Sodium (Kate-Colace) 1 tab PO BID [facility] Last Admin: 06/10/18 09:27 Dose: 1 tab Sennosides (Senokot) 17.2 mg PO Q12H PRN PRN Reason: Moderate Constipation Sodium Chloride (Ns Flush) 2 ml IV.FLUSH PRN PRN PRN Reason: FLUSH AFTER USING IV ACCESS Sodium Chloride (Ns Flush) 2 ml IV.FLUSH BID [facility] Last Admin: 06/10/18 09:27 Dose: 2 ml Allergies/Adverse Reactions: Allergies Allergy/AdvReac Type Severity Reaction Status Date / Time No Known Allergies Allergy Verified 05/29/18 15:32 Physical Exam Vital signs: Vital Signs 06/09/18 10:30 06/09/18 10:45 06/09/18 11:00 Temperature Pulse Rate 94 H 95 H 103 H Respiratory Rate 18 22 32 H Blood Pressure 137/60 136/63 146/64 H Pulse Oximetry 100 100 100 06/09/18 11:15 06/09/18 11:30 06/09/18 11:45 Temperature Pulse Rate 99 H 84 95 H Respiratory Rate 31 H 31 H 31 H Blood Pressure 131/59 L 153/67 H 128/80 Pulse Oximetry 97 97 97 06/09/18 12:00 06/09/18 12:15 06/09/18 12:30 Temperature Pulse Rate 95 H 111 H 100 H Respiratory Rate 35 H 17 30 H Blood Pressure 144/66 H 150/70 H 130/60 Pulse Oximetry 97 98 97 06/09/18 12:45 06/09/18 13:00 06/09/18 13:15 Temperature Pulse Rate 114 H 109 H 87 Respiratory Rate 31 H 31 H 12 Blood Pressure 138/62 123/59 L 106/51 L Pulse Oximetry 100 100 100 06/09/18 13:30 06/09/18 13:45 06/09/18 14:00 Temperature Pulse Rate 95 H 94 H 116 H Respiratory Rate 12 12 16 Blood Pressure 137/61 145/63 H 144/65 H Pulse Oximetry 100 100 100 06/09/18 14:15 06/09/18 14:30 06/09/18 14:45 Temperature Pulse Rate 108 H 97 H 99 H Respiratory Rate 21 20 19 Blood Pressure 147/66 H 140/62 145/65 H Pulse Oximetry 99 100 100 06/09/18 15:00 06/09/18 15:15 06/09/18 15:31 Temperature Pulse Rate 109 H 100 H 108 H Respiratory Rate 22 17 19 Blood Pressure 149/65 H 171/72 H 131/61 Pulse Oximetry 99 99 100 06/09/18 15:49 06/09/18 16:00 06/09/18 16:30 Temperature 98.8 F Pulse Rate 130 H 109 H 112 H Respiratory Rate 17 12 13 Blood Pressure 142/62 H Pulse Oximetry 100 100 99 06/09/18 17:00 06/09/18 17:30 06/09/18 18:00 Temperature Pulse Rate 113 H 115 H 102 H Respiratory Rate 39 H 13 12 Blood Pressure 139/61 137/56 L 143/64 H Pulse Oximetry 100 99 99 06/09/18 18:30 06/09/18 19:00 06/09/18 19:30 Temperature Pulse Rate 99 H 102 H Respiratory Rate 12 12 Blood Pressure 137/61 131/59 L 130/56 L Pulse Oximetry 100 100 06/09/18 19:37 06/09/18 20:00 06/09/18 20:30 Temperature 99.2 F Pulse Rate 111 H 117 H 126 H Respiratory Rate 14 14 18 Blood Pressure 147/67 H 163/67 H Pulse Oximetry 100 100 06/09/18 21:00 06/09/18 21:30 06/09/18 22:00 Temperature Pulse Rate 95 H 94 H 79 Respiratory Rate 12 12 12 Blood Pressure 123/56 L 142/65 H 110/62 Pulse Oximetry 97 98 100 06/09/18 22:30 06/09/18 23:00 06/09/18 23:30 Temperature Pulse Rate 76 77 78 Respiratory Rate 12 12 12 Blood Pressure 108/54 L 115/57 L 120/57 L Pulse Oximetry 100 100 100 06/09/18 23:46 06/10/18 00:00 06/10/18 00:30 Temperature 99.8 F H Pulse Rate 79 80 78 Respiratory Rate 12 12 12 Blood Pressure 123/59 L 111/56 L Pulse Oximetry 100 100 100 06/10/18 01:00 06/10/18 01:30 06/10/18 02:00 Temperature Pulse Rate 91 H 96 H 83 Respiratory Rate 12 12 12 Blood Pressure 134/63 122/57 L 109/54 L Pulse Oximetry 98 99 100 06/10/18 02:30 06/10/18 03:00 06/10/18 03:30 Temperature Pulse Rate 80 80 81 Respiratory Rate 12 12 12 Blood Pressure 120/58 L 116/56 L 124/60 Pulse Oximetry 99 100 100 06/10/18 03:54 06/10/18 04:00 06/10/18 04:30 Temperature 98.9 F Pulse Rate 88 91 H 98 H Respiratory Rate 12 12 16 Blood Pressure 120/59 L 128/60 Pulse Oximetry 100 100 98 06/10/18 05:00 06/10/18 05:30 06/10/18 06:00 Temperature Pulse Rate 88 85 92 H Respiratory Rate 12 12 15 Blood Pressure 115/58 L 151/65 H 130/58 L Pulse Oximetry 100 99 100 06/10/18 06:30 06/10/18 08:24 Temperature Pulse Rate 79 92 H Respiratory Rate 12 13 Blood Pressure 103/51 L Pulse Oximetry 100 100 Intake & Output 06/09/18 06/10/18 06/10/18 18:59 06:59 18:59 Intake Total 1317 / 1317 544 / 544 Output Total 900 / 900 550 / 550 Balance 417 / 417 -6 / -6 Weight 67.3 kg Intake: IV 1277 / 1277 369 / 369 Cleviprex Inj 25 mg In 50 ml @ 50 / 50 1 MG/HR 2 mls/hr IV.CONT TITRATE PRN Rx#:[id number] NS Inj 1,000 ML @ 84 mls/hr IV. 1000 / 1000 CONT .[id number] [facility] Rx#:[id number] Cerebyx Inj 200 MGPE In NS Inj 52 / 52 54 / 54 50 ML @ 216 mls/hr IV.SIG Q12HR [facility] Rx#:[id number] Cerebyx Inj 500 MGPE In NS Inj 60 / 60 50 ML @ 240 mls/hr IV.SIG ONCE ONE Rx#:[id number] KCl 10 mEq Premix Inj 10 meq In 100 / 100 100 ml @ 100 mls/hr IV.SIG Q1H [facility] Rx#:[id number] KCl 20 mEq Premix Inj 20 meq In 100 / 100 100 ml @ 50 mls/hr IV.SIG Q2H PRN Rx#:[id number] Keppra Inj 1,500 MG In NS Inj 115 / 115 115 / 115 100 ML @ 400 mls/hr IV.SIG Q12H [facility] Rx#:[id number] Oral 0 / 0 Tube Feeding 10 / 10 175 / 175 Tube Irrigant 30 / 30 Output: Urine 900 / 900 Urine Amount (Catheter) 450 / 450 Indwelling Urethral Catheter 450 / 450 Wound Drainage 100 / 100 # 1 Left Head 100 / 100 Other: Date of Last Bowel Movement 06/09/18 06/09/18 # Bowel Movements 1 Narrative: eyes open not following commands alert rxt threat - Urinary Catheter Management Female External Cath placed during this visit: no Reason for continuing: Not indwelling catheter Indwelling Urethral Catheter Cath placed during this visit: yes Reason for continuing: Hourly intake/output Insertion date: 06/05/18 Insertion time: 08:30 Objective Laboratory Results - last 24 hr 06/09/18 06/09/18 06/09/18 11:03 13:06 17:57 WBC 16.3 H RBC 3.44 L Hgb 11.5 L Hct 34.5 L MCV 100.2 H MCH 33.4 MCHC 33.3 RDW 14.4 Plt Count 199 MPV 8.6 Sodium Potassium Chloride Carbon Dioxide Anion Gap BUN Creatinine Estimated GFR Random Glucose Calcium Phosphorus 2.7 Magnesium Total Bilirubin AST ALT Alkaline Phosphatase Total Protein Albumin Phenytoin 6.9 L 06/09/18 06/10/18 17:57 06:00 WBC RBC Hgb Hct MCV MCH MCHC RDW Plt Count MPV Sodium 136 136 Potassium 2.9 L* D 4.1 D Chloride 100 103 Carbon Dioxide 22.8 23.0 Anion Gap 13 10 BUN 7 10 Creatinine 0.27 L 0.35 L Estimated GFR Greater than 89 Greater than 89 Random Glucose 103 139 H Calcium 8.1 L 7.6 L Phosphorus 2.4 L Magnesium 1.7 Total Bilirubin 0.4 AST 143 H ALT 87 H Alkaline Phosphatase 79 Total Protein 5.4 L Albumin 1.5 L Phenytoin 11.6 Microbiology 06/09/18 06:35 Gram Stain - Final Sputum - Endotracheal Review/Management - Review/Management Plan: imp improved MS nusu on case i dw dr langston the medulla abn and he is aware fu eeg -- 06/01/18 eeg neg stable neuro vent size looks stable on cta check platelet plavix fxt for or monday - 06/07/18 sp sz post op post crani eeg breech dil 9.7 free dil 17 so good level mets on chest ct? path pend medullary area is a flow void not mass i agree on film review 06/08/18 no more sz dil ok defer to nu 06/10/18 ct no major change eeg yest looked worse this am she looks better abdirahman dced pbarb dil free is prob over 22 by low alb 1.5 calc keprra maxed out i will defer to abdirahman on sz rx and will sign off
[2018-06-10 10:41] LABS: Baso % (Auto) 0.2 % (0.0-2.0); Eos % (Auto) 0.1 % (0.0-4.0); Hematocrit 31.8 % (35.0-46.0); Hemoglobin 10.7 gm/dL (11.6-15.3); Lymph # (Auto) 0.8 th/mm3 (1.0-4.8); Mean Corpuscular HGB Conc 33.5 % (32.0-36.0); Mean Corpuscular Hemoglobin 33.8 pg (27.0-34.0); Mean Platelet Volume 8.8 fL (7.0-11.0); Mono # (Auto) 0.8 th/mm3 (0.0-0.9); Mono % (Auto) 5.5 % (0.0-8.0); Neut # (Auto) 13.4 th/mm3 (1.8-7.7); Neut % (Auto) 89.2 % (16.0-70.0); Red Blood Count 3.15 mil/mm3 (4.00-5.30); Red Cell Distribution Width 14.1 % (11.6-17.2)
[2018-06-10 11:59] LABS: Platelet Count 227 th/mm3 (150-450); White Blood Count 14.3 th/mm3 (4.0-11.0)
[2018-06-10 12:02] LABS: Lymphocytes 8 % (9-44); Monocytes 5 % (0-8); Promyelocyte 1 % (0-0); Toxic Granulation 2+
[2018-06-10 12:03] LABS: Platelet Estimate Normal (Normal); Platelet Morphology Normal (Normal)
--- NOTE | 2018-06-10 12:31 | P.DIET ---
Nutritional Evaluation Type of nutrition evaluation: initial Nutrition consult regarding: Tube Feeding Objective - Diagnosis Brain Bleed - Objective % IBW: 99 (IBW = 150#) Energy Needs - Lower Range (kCal/kg): 25 Energy Needs - Upper Range (kCal/kg): 30 Lower Limit kCal/kg (kCals): 1,683 Upper Limit kCal/kg (kCals): 2,019 Lower Limit Protein Factor (Grams per Kg): 1.2 Upper Limit Protein Factor (Grams per Kg): 1.6 Lower Protein Needs (Protein): 81 Upper Protein Needs (Protein): 108 Dietitian Reviewed in Medical Record: Curent medications, Intake & Output, Labs , Medical history, Tube feeding Diet Order: NPO Assessment Assessment: 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 To meet nutritional needs with TFing, recommend Vital 1.5 @ 50 mls/hr to provide 1800 kcals, 81 gms protein and 917 mls of free water. Recommendations: Vital 1.5 @ 50 mls/hr goal Dietitian to Monitor: Lab values, Intake & Output, Tube feeding tolerance, Weight change
--- NOTE | 2018-06-10 13:35 | P.PNCC ---
Subjective Subjective Remarks/Hospital Course: Patient is a 78-year-old female with past medical history significant for hypertension, peripheral arterial disease, history of vascular intervention/ stenting, arthritis who presented to the [facility] with mostly nonspecific complaints of memory loss and hallucinations for 1 week and worsening tremors of the right arm. Further workup in the emergency department showed subacute intraventricular hemorrhage into the left lateral ventricle and a focal thrombus that may be obstructing foramina of [place]. There was enlargement of the left lateral ventricle compared to the prior MRI. Also trace blood in the occipital horn of left lateral ventricle. With evidence of intraventricular hemorrhage patient was transferred emergently to [facility] for neurosurgery consult. I evaluated the patient after arrival to the ICU. Patient is profoundly hypertensive systolic blood pressure 190-200. IV labetalol 20 mg IV push given followed by Cardene infusion started. On exam patient did not appear to be in distress. No definite focal deficit however patient is oriented only to person. Reviewed CT scan with neurosurgery Dr. Palacios. On his review CT shows 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 hemorrhagic mass at foramen of Bell with asymmetric left sided ventricular dilatation. Stat MRI of the brain with and without contrast ordered. Started on Cardene infusion with target systolic blood pressure less than 140 05/30/18: MRI brain showed 2.3 x 1.7 cm mass within the body of the left lateral ventricle measuring 2.3 x 1.7 cm left lateral ventricle is prominent may be related to production of CSF from this mass. 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 Additional mass in the cerebellopontine angle on the left compressing upon the brainstem measuring 1.8 x 1.4 cm. Slightly more agitated and confused today. Partly secondary to mass partly could be alcohol withdrawal. Placed on as needed Haldol 05/31: Patient remains sedated received Ativan a few hours before. Currently for that reason Precedex is being held. Wakes up follows some commands. Oriented to person only. Plan for craniotomy and resection of intraventricular mass scheduled tentatively for Monday. Ct chest: 1.6 x 1.1 cm spiculated RUL nodule concerning for metastasis or primary lung malignancy. 1.1 x 1.4 cm soft tissue density inferior lateral margin of the right breast implant ?focal disruption vs breast mass. CT abdomen pelvis: 1.3 cm left adrenal mass concerning for metastatic disease given findings of brain and lung mass. 1.6 cm indeterminate low-density lesion in the posterior right lobe of the liver with numerous additional subcentimeter hypodense lesions which are too small to fully characterize. Metastatic disease cannot be entirely excluded, possibly cysts. 06/01: Remains confused slightly agitated remains on Precedex. CT angiogram yesterday of the brain showed previously demonstrated intraventricular mass however no cerebellopontine angle mass. WBC count elevated to 19.1 no fever. Will check UA-previously ordered UA had not been done. Check blood cultures, chest x-ray is clear. Continue to hold Plavix 06/02: Plan is for resection of brain mass on Monday. Patient continues breathing comfortably. 06/03: Ready for OR. Labs are in order. INR 1.1. Plavix effect noted on . 06/04: Coagulation profile normal. Patient scheduled for surgery tomorrow. No new complaints. 06/05: Patient seen in PACU shortly after surgery. Brief generalized seizure terminated with Ativan 1 mg. Patient loaded with Cerebyx 1 g. Neurologic exam nonfocal at this time. Pupils pinpoint. Required reintubation due to somnolence. 06/06: T-max 100.8. Currently afebrile. Patient arousable on the ventilator. Hypotensive requiring 1 L bolus normal saline. MRI brain pending. EEG ongoing. 06/07: T-max 100.6. Currently 99.8. MRI brain showed postsurgical change with no increased hemorrhage noted. Replacing potassium, phosphorus and magnesium currently. Dexmedetomidine drip is currently off. Noted some breech with EEG yesterday. Dilantin level therapeutic. 06/08: All sedation off for about 24 hours. She will open her eyes to stimulation. Withdraws 4 limbs to stimulation but right upper extremity appears weaker. Dilantin level is therapeutic and no more seizures. We will attempt to extubate when she can control her airway. Presently too somnolent. 06/09: Possibly slightly more arousable than when I saw her for 8 hours ago. Will reflexively squeeze left upper extremity. Not currently following commands with right upper extremity for me. Tube feeding today increase antihypertensives to wean off clevidipine drip. Subjective 06/10: Currently on fosphenytoin 200 mg twice daily and levetiracetam 1500 mg twice daily. Failed CPAP trials x2 today secondary to apnea. Will reattempt this afternoon. Arousable and opens eyes. Spontaneous moves left upper extremity but not following commands. We check EEG today. Objective Vital Signs / I&O: Vital Signs 06/09/18 13:30 06/09/18 13:45 06/09/18 14:00 Temperature Pulse Rate 95 H 94 H 116 H Respiratory Rate 12 12 16 Blood Pressure 137/61 145/63 H 144/65 H Pulse Oximetry 100 100 100 06/09/18 14:15 06/09/18 14:30 06/09/18 14:45 Temperature Pulse Rate 108 H 97 H 99 H Respiratory Rate 21 20 19 Blood Pressure 147/66 H 140/62 145/65 H Pulse Oximetry 99 100 100 06/09/18 15:00 06/09/18 15:15 06/09/18 15:31 Temperature Pulse Rate 109 H 100 H 108 H Respiratory Rate 22 17 19 Blood Pressure 149/65 H 171/72 H 131/61 Pulse Oximetry 99 99 100 06/09/18 15:49 06/09/18 16:00 06/09/18 16:30 Temperature 98.8 F Pulse Rate 130 H 109 H 112 H Respiratory Rate 17 12 13 Blood Pressure 142/62 H Pulse Oximetry 100 100 99 06/09/18 17:00 06/09/18 17:30 06/09/18 18:00 Temperature Pulse Rate 113 H 115 H 102 H Respiratory Rate 39 H 13 12 Blood Pressure 139/61 137/56 L 143/64 H Pulse Oximetry 100 99 99 06/09/18 18:30 06/09/18 19:00 06/09/18 19:30 Temperature Pulse Rate 99 H 102 H Respiratory Rate 12 12 Blood Pressure 137/61 131/59 L 130/56 L Pulse Oximetry 100 100 06/09/18 19:37 06/09/18 20:00 06/09/18 20:30 Temperature 99.2 F Pulse Rate 111 H 117 H 126 H Respiratory Rate 14 14 18 Blood Pressure 147/67 H 163/67 H Pulse Oximetry 100 100 06/09/18 21:00 06/09/18 21:30 06/09/18 22:00 Temperature Pulse Rate 95 H 94 H 79 Respiratory Rate 12 12 12 Blood Pressure 123/56 L 142/65 H 110/62 Pulse Oximetry 97 98 100 06/09/18 22:30 06/09/18 23:00 06/09/18 23:30 Temperature Pulse Rate 76 77 78 Respiratory Rate 12 12 12 Blood Pressure 108/54 L 115/57 L 120/57 L Pulse Oximetry 100 100 100 06/09/18 23:46 06/10/18 00:00 06/10/18 00:30 Temperature 99.8 F H Pulse Rate 79 80 78 Respiratory Rate 12 12 12 Blood Pressure 123/59 L 111/56 L Pulse Oximetry 100 100 100 06/10/18 01:00 06/10/18 01:30 06/10/18 02:00 Temperature Pulse Rate 91 H 96 H 83 Respiratory Rate 12 12 12 Blood Pressure 134/63 122/57 L 109/54 L Pulse Oximetry 98 99 100 06/10/18 02:30 06/10/18 03:00 06/10/18 03:30 Temperature Pulse Rate 80 80 81 Respiratory Rate 12 12 12 Blood Pressure 120/58 L 116/56 L 124/60 Pulse Oximetry 99 100 100 06/10/18 03:54 06/10/18 04:00 06/10/18 04:30 Temperature 98.9 F Pulse Rate 88 91 H 98 H Respiratory Rate 12 12 16 Blood Pressure 120/59 L 128/60 Pulse Oximetry 100 100 98 06/10/18 05:00 06/10/18 05:30 06/10/18 06:00 Temperature Pulse Rate 88 85 92 H Respiratory Rate 12 12 15 Blood Pressure 115/58 L 151/65 H 130/58 L Pulse Oximetry 100 99 100 06/10/18 06:30 06/10/18 07:00 06/10/18 08:00 Temperature 98.9 F Pulse Rate 79 79 78 Respiratory Rate 12 12 12 Blood Pressure 103/51 L 107/59 L 114/58 L Pulse Oximetry 100 100 100 06/10/18 08:24 06/10/18 09:00 06/10/18 10:00 Temperature 97.9 F Pulse Rate 92 H 102 H 97 H Respiratory Rate 13 12 12 Blood Pressure 137/62 134/60 Pulse Oximetry 100 100 100 06/10/18 11:00 06/10/18 11:49 06/10/18 12:00 Temperature 98.2 F Pulse Rate 92 H 79 Respiratory Rate 12 12 12 Blood Pressure 113/56 L 107/53 L Pulse Oximetry 99 100 100 06/10/18 13:00 Temperature Pulse Rate 87 Respiratory Rate 12 Blood Pressure 115/58 L Pulse Oximetry 100 Intake & Output 06/09/18 06/10/18 06/10/18 18:59 06:59 18:59 Intake Total 1317 / 1317 544 / 544 Output Total 900 / 900 550 / 550 Balance 417 / 417 -6 / -6 Weight 67.3 kg Intake: IV 1277 / 1277 369 / 369 Cleviprex Inj 25 mg In 50 ml @ 50 / 50 1 MG/HR 2 mls/hr IV.CONT TITRATE PRN Rx#:[id number] NS Inj 1,000 ML @ 84 mls/hr IV. 1000 / 1000 CONT .[id number] ALEXIS Rx#:[id number] Cerebyx Inj 200 MGPE In NS Inj 52 / 52 54 / 54 50 ML @ 216 mls/hr IV.SIG Q12HR ALEXIS Rx#:[id number] Cerebyx Inj 500 MGPE In NS Inj 60 / 60 50 ML @ 240 mls/hr IV.SIG ONCE ONE Rx#:[id number] KCl 10 mEq Premix Inj 10 meq In 100 / 100 100 ml @ 100 mls/hr IV.SIG Q1H ALEXIS Rx#:[id number] KCl 20 mEq Premix Inj 20 meq In 100 / 100 100 ml @ 50 mls/hr IV.SIG Q2H PRN Rx#:[id number] Keppra Inj 1,500 MG In NS Inj 115 / 115 115 / 115 100 ML @ 400 mls/hr IV.SIG Q12H ALEXIS Rx#:[id number] Oral 0 / 0 Tube Feeding 10 / 10 175 / 175 Tube Irrigant 30 / 30 Output: Urine 900 / 900 Urine Amount (Catheter) 450 / 450 Indwelling Urethral Catheter 450 / 450 Wound Drainage 100 / 100 # 1 Left Head 100 / 100 Other: Date of Last Bowel Movement 06/09/18 06/09/18 06/09/18 # Bowel Movements 1 Result Diagrams: 06/10/18 10:09 06/10/18 06:00 Other Results: Microbiology 06/09/18 06:35 Sputum - Endotracheal Gram Stain - Final 06/09/18 06:35 Sputum - Endotracheal Sputum Culture - Preliminary 06/01/18 10:21 Blood - Peripheral Aerobic Blood Culture - Final No growth in 5 days 06/01/18 10:21 Blood - Peripheral Anaerobic Blood Culture - Final No growth in 5 days 06/01/18 10:16 Blood - Peripheral Aerobic Blood Culture - Final No growth in 5 days 06/01/18 10:16 Blood - Peripheral Anaerobic Blood Culture - Final No growth in 5 days Imaging: Chest X-Ray 05/29/18 15:37 CONCLUSION: Chronic interstitial changes. No acute abnormality. Head MRI 05/29/18 15:41 CONCLUSION: 1. There is a 2.3 x 1.7 cm mass within the body of the left lateral ventricle measuring 2.3 x 1.7 cm. The left lateral ventricle is prominent may be related to production of CSF from this mass. 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 This mass may have hemorrhaged causing the blood layering in the lateral ventricles. 2. There is also a mass in the cerebellopontine angle on the left compressing upon the brainstem measuring 1.8 x 1.4 cm. 3. Chronic ischemic small vessel vasculopathy. Abdomen/Pelvis CT 05/30/18 00:00 CONCLUSION: 1. 1.3 cm left adrenal mass. Findings are concerning for metastatic disease given findings of brain metastasis and lung mass. 2. 1.6 cm indeterminate low-density lesion in the posterior right lobe of the liver with numerous additional subcentimeter hypodense lesions which are too small to fully characterize. Although metastatic disease cannot be entirely excluded, suspect these reflect cysts. 3. Colonic diverticulosis without evidence for diverticulitis. 4. Otherwise, no additional definitive evidence for metastatic disease to the abdomen or pelvis. Chest CT 05/30/18 00:00 CONCLUSION: 1. 1.6 x 1.1 cm spiculated right upper lobe lung nodule concerning for metastasis or primary lung malignancy. 2. Additional 3 mm subpleural nodules in the superior segment of the left lower lobe are nonspecific. 3. Mild atelectasis/scarring at the right lung base with more prominent airspace consolidation at the left lung base. 4. 1.1 x 1.4 cm soft tissue density abnormality emanating from the inferior lateral margin of the right breast implant which may reflect a focal disruption. However, cannot exclude an adjacent breast mass. Correlation with patient's history and prior breast imaging is recommended. Head CTA 05/31/18 00:00 CONCLUSION: 1. There is no evidence for intracranial aneurysm or stenosis. 2. Intraventricular mass as previously described. 3. There is no evidence for mass at the cerebellopontine angle. The finding on the recent MRI was likely related to pulsation artifact in this region. . Chest X-Ray 06/01/18 00:00 CONCLUSION: No acute cardiopulmonary disease identified. Chest X-Ray 06/05/18 00:00 CONCLUSION: 1. Right upper lobe nodule. 2. Bibasilar infiltrates. 3. Adequate placement of endotracheal tube. Head MRI 06/06/18 00:00 CONCLUSION: 1. 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 2. Intraventricular blood as described. Left lateral ventricle is slightly smaller. 3. Air and small amount of acute blood in the subdural spaces of both convexities. There is also small subdural blood in between the leaves of the falx. 4. Roughly 5 mm of rightward midline shift, improved. Chest X-Ray 06/08/18 06:00 CONCLUSION: Tracheostomy tube and nasogastric tube position. Lungs are grossly clear. Head CT 06/09/18 14:55 CONCLUSION: 1. Postoperative findings with ventriculostomy catheter in place, pneumocephalus, and moderate amount of intraventricular blood in the left occipital horn and minimal blood in the right occipital horn. 2. Ventricular size is similar to preoperative CT. No evidence of midline shift or mass effect. . Objective Remarks: GENERAL: This is a 78-year-old female currently orotracheally intubated SKIN: Warm and dry. HEAD: Atraumatic. Normocephalic. EYES: Pupils equal and round. About 2 mm bilaterally and reactive, no scleral icterus. No injection or drainage. ENT: No nasal bleeding or discharge. Mucous membranes pink and moist. NECK: Trachea midline. Orotracheal intubation CARDIOVASCULAR: Regular rate and rhythm. S1, S2 no S 4. No murmur RESPIRATORY: Normal excursions on mechanical ventilation. Clear to auscultation. Breath sounds equal bilaterally. GASTROINTESTINAL: Abdomen soft, non-tender, nondistended. No guarding, bowel sounds active. MUSCULOSKELETAL: Extremities with 1 bilateral upper and lower extremity edema. Warm, well-perfused NEUROLOGICAL: Positive cough and gag. Pupils reactive. Arousable on the ventilator and opens eyes moves all left upper, left lower and right lower extremity. Very difficult to the evaluate right upper extremity. GENERAL: SKIN: Warm and dry. HEAD: Atraumatic. Normocephalic. EYES: Pupils equal and round. No scleral icterus. No injection or drainage. ENT: No nasal bleeding or discharge. Mucous membranes pink and moist. NECK: Trachea midline. No JVD. CARDIOVASCULAR: Regular rate and rhythm. RESPIRATORY: No accessory muscle use. Clear to auscultation. Breath sounds equal bilaterally. GASTROINTESTINAL: Abdomen soft, non-tender, nondistended. Hepatic and splenic margins not palpable. MUSCULOSKELETAL: Extremities without clubbing, cyanosis, or edema. No obvious deformities. NEUROLOGICAL: Awake and alert. No obvious cranial nerve deficits. Motor grossly within normal limits. Five out of 5 muscle strength in the arms and legs. Normal speech. PSYCHIATRIC: Appropriate mood and affect; insight and judgment normal. Assessment and Plan - Problem List (1) Intraventricular hemorrhage, nontraumatic Code(s): I61.5 - Nontraumatic intracerebral hemorrhage, intraventricular Status: Acute (2) Hypertensive emergency Code(s): I16.1 - Hypertensive emergency Status: Acute (3) Metabolic encephalopathy Code(s): G93.41 - Metabolic encephalopathy Status: Acute (4) Altered mental status Code(s): R41.82 - Altered mental status, unspecified Status: Acute (5) History of peripheral arterial disease Code(s): Z86.79 - Personal history of other diseases of the circulatory system Status: Chronic (6) History of hypertension Code(s): Z86.79 - Personal history of other diseases of the circulatory system Status: Chronic (7) Cessation of tobacco use in previous 12 months Code(s): Z87.891 - Personal history of nicotine dependence Status: Chronic - Assessment and Plan Plan: NEURO/psych: 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 -Status post left craniotomy resection of tumor 06/0506/04/2018 (clopidogrel will be held for 7 days prior to surgery) -Oncology consult, also CT chest abdomen pelvis -right upper lobe mass with probable adrenal metastases cannot rule out liver metastases -Tight blood pressure control with nicardipine e and IV labetalol as needed, and PO meds, see below -Keep systolic blood pressure less than 150 -Supplement multivitamin thiamine given daily alcohol use -Watch closely for alcohol withdrawal -Mild alcohol withdrawal contributing to agitation -Use expected for agitation, Haldol as needed -EEG originally negative for seizures -Repeat EEG 06/06 field possible left frontal breakthrough. Loaded with fosphenytoin 1 g.. Start on 100 mg 3 times daily recheck level in a.m was 9.2 with free level around 17. Continue per neurology. -MRA 06/06 brain revealed left lateral ventricle resection, intervertebral hemorrhage slightly decreased. Small subdural hematoma. Postsurgical. Rightward shift 5 mm. -Sharp left frontal yesterday. Recheck EEG today Currently on fosphenytoin 200 mg every 12 hours. Level 11.6. On levetiracetam 1500 mg IV twice daily. RESP: Acute respiratory failure Previous tobacco use Right upper lobe speak with a mass -PRVC ventilation with ventilator bundle/head of bed at 30 degrees -Albuterol/ipratropium aerosols every 4 hours scheduled and as needed albuterol aerosols every 2 hours as needed -Pulmonology consulted for right upper lobe mass concerning for primary malignancy, with adrenal mass -Pulmonary Dr. Evans suggesting CT-guided biopsy and PET scan once clinically more stable and neuro surgery completed -Reintubated and ISC after PACU 06/05. -Spontaneous breathing trials today again, attempt extubation when she can protect her airway. CV: Hypertensive emergency History of hypertension Peripheral arterial disease -Normal saline IV fluids 84 mL/h -Clevidipine nfusion and, IV labetalol as needed for systolic blood pressure less than 150 -Continue home enalapril 40 mg daily and amlodipine 5 mg daily increased to 10 mg daily, continue pravastatin [address] Quintero Added metoprolol tartrate 50 mg twice daily -Continue holding clopidogrel until cleared by neurosurgery -Decrease platelet activity noted on 06/01 -INR, PT, PTT normal - GI: Left adrenal mass 1.3 x 1.2 cm Colonic diverticulosis Right liver mass versus cyst Elevated LFTs -Currently n.p.o. status, lansoprazole for GI prophylax. Docusate sodium/senna 1 tablet twice daily for bowel regimen -Continue tube feedings with vital 1.5 goal 50 cc an hour -Check ammonia level in a.m. : -Monitor renal function closely. ID: -No indication for antibiotics at this time status post cefazolin HEME: Leukocytosis Macrocytic anemia -Oncology. 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 Kapadia FEN/ENDO: -Discontinue normal saline at 84 cc an hour -Electrolyte replacement per protocol PROPH: -Bilateral lower extremity SCDs. Avoid chemical DVT prophylaxis until after surgery. LINES: -Utilize peripheral IVs, central line if needed Level 2 follow-up (4) Altered mental status Qualifiers: Altered mental status type: unspecified Qualified Code(s): R41.82 - Altered mental status, unspecified
--- NOTE | 2018-06-10 15:20 | P.PN ---
Subjective Interval history: On vent support and FiO2 30%. Failed CPAP trial due to apnea. On fosphenytoin for seizure. ABGs are adequate Physical Exam Vital signs: Vital Signs 06/09/18 15:31 06/09/18 15:49 06/09/18 16:00 Temperature 98.8 F Pulse Rate 108 H 130 H 109 H Respiratory Rate 19 17 12 Blood Pressure 131/61 142/62 H Pulse Oximetry 100 100 100 06/09/18 16:30 06/09/18 17:00 06/09/18 17:30 Temperature Pulse Rate 112 H 113 H 115 H Respiratory Rate 13 39 H 13 Blood Pressure 139/61 137/56 L Pulse Oximetry 99 100 99 06/09/18 18:00 06/09/18 18:30 06/09/18 19:00 Temperature Pulse Rate 102 H 99 H Respiratory Rate 12 12 Blood Pressure 143/64 H 137/61 131/59 L Pulse Oximetry 99 100 06/09/18 19:30 06/09/18 19:37 06/09/18 20:00 Temperature 99.2 F Pulse Rate 102 H 111 H 117 H Respiratory Rate 12 14 14 Blood Pressure 130/56 L 147/67 H Pulse Oximetry 100 100 100 06/09/18 20:30 06/09/18 21:00 06/09/18 21:30 Temperature Pulse Rate 126 H 95 H 94 H Respiratory Rate 18 12 12 Blood Pressure 163/67 H 123/56 L 142/65 H Pulse Oximetry 97 98 06/09/18 22:00 06/09/18 22:30 06/09/18 23:00 Temperature Pulse Rate 79 76 77 Respiratory Rate 12 12 12 Blood Pressure 110/62 108/54 L 115/57 L Pulse Oximetry 100 100 100 06/09/18 23:30 06/09/18 23:46 06/10/18 00:00 Temperature 99.8 F H Pulse Rate 78 79 80 Respiratory Rate 12 12 12 Blood Pressure 120/57 L 123/59 L Pulse Oximetry 100 100 100 06/10/18 00:30 06/10/18 01:00 06/10/18 01:30 Temperature Pulse Rate 78 91 H 96 H Respiratory Rate 12 12 12 Blood Pressure 111/56 L 134/63 122/57 L Pulse Oximetry 100 98 99 06/10/18 02:00 06/10/18 02:30 06/10/18 03:00 Temperature Pulse Rate 83 80 80 Respiratory Rate 12 12 12 Blood Pressure 109/54 L 120/58 L 116/56 L Pulse Oximetry 100 99 100 06/10/18 03:30 06/10/18 03:54 06/10/18 04:00 Temperature 98.9 F Pulse Rate 81 88 91 H Respiratory Rate 12 12 12 Blood Pressure 124/60 120/59 L Pulse Oximetry 100 100 100 06/10/18 04:30 06/10/18 05:00 06/10/18 05:30 Temperature Pulse Rate 98 H 88 85 Respiratory Rate 16 12 12 Blood Pressure 128/60 115/58 L 151/65 H Pulse Oximetry 98 100 99 06/10/18 06:00 06/10/18 06:30 06/10/18 07:00 Temperature Pulse Rate 92 H 79 79 Respiratory Rate 15 12 12 Blood Pressure 130/58 L 103/51 L 107/59 L Pulse Oximetry 100 100 100 06/10/18 08:00 06/10/18 08:24 06/10/18 09:00 Temperature 98.9 F Pulse Rate 78 92 H 102 H Respiratory Rate 12 13 12 Blood Pressure 114/58 L 137/62 Pulse Oximetry 100 100 100 06/10/18 10:00 06/10/18 11:00 06/10/18 11:49 Temperature 97.9 F Pulse Rate 97 H 92 H Respiratory Rate 12 12 12 Blood Pressure 134/60 113/56 L Pulse Oximetry 100 99 100 06/10/18 12:00 06/10/18 13:00 06/10/18 14:00 Temperature 98.2 F Pulse Rate 79 87 81 Respiratory Rate 12 12 12 Blood Pressure 107/53 L 115/58 L 122/55 L Pulse Oximetry 100 100 100 Intake & Output 06/09/18 06/10/18 06/10/18 18:59 06:59 18:59 Intake Total 1317 / 1317 544 / 544 Output Total 900 / 900 550 / 550 Balance 417 / 417 -6 / -6 Weight 67.3 kg Intake: IV 1277 / 1277 369 / 369 Cleviprex Inj 25 mg In 50 ml @ 50 / 50 1 MG/HR 2 mls/hr IV.CONT TITRATE PRN Rx#:[id number] NS Inj 1,000 ML @ 84 mls/hr IV. 1000 / 1000 CONT .[id number] [facility] Rx#:[id number] Cerebyx Inj 200 MGPE In NS Inj 52 / 52 54 / 54 50 ML @ 216 mls/hr IV.SIG Q12HR [facility] Rx#:[id number] Cerebyx Inj 500 MGPE In NS Inj 60 / 60 50 ML @ 240 mls/hr IV.SIG ONCE ONE Rx#:[id number] KCl 10 mEq Premix Inj 10 meq In 100 / 100 100 ml @ 100 mls/hr IV.SIG Q1H [facility] Rx#:[id number] KCl 20 mEq Premix Inj 20 meq In 100 / 100 100 ml @ 50 mls/hr IV.SIG Q2H PRN Rx#:[id number] Keppra Inj 1,500 MG In NS Inj 115 / 115 115 / 115 100 ML @ 400 mls/hr IV.SIG Q12H [facility] Rx#:[id number] Oral 0 / 0 Tube Feeding 10 / 10 175 / 175 Tube Irrigant 30 / 30 Output: Urine 900 / 900 Urine Amount (Catheter) 450 / 450 Indwelling Urethral Catheter 450 / 450 Wound Drainage 100 / 100 # 1 Left Head 100 / 100 Other: Date of Last Bowel Movement 06/09/18 06/09/18 06/09/18 # Bowel Movements 1 Narrative: eyes open not following commands alert GENERAL: Elderly white female averagely built on vent support SKIN: Warm and dry. HEAD: Atraumatic. Normocephalic. EYES: Pupils equal and round. No scleral icterus. No injection or drainage. ENT: No nasal bleeding or discharge. Mucous membranes pink and moist. NECK: Trachea midline. No JVD. CARDIOVASCULAR: Regular rate and rhythm. RESPIRATORY: No accessory muscle use. Occasional bilateral wheezes. Breath sounds equal bilaterally. GASTROINTESTINAL: Abdomen soft, non-tender, nondistended. Hepatic and splenic margins not palpable. MUSCULOSKELETAL: Extremities without clubbing, cyanosis, or edema. No obvious deformities. NEUROLOGICAL: Sedated and on ventilator - Urinary Catheter Management Female External Cath placed during this visit: no Reason for continuing: Not indwelling catheter Indwelling Urethral Catheter Cath placed during this visit: yes Reason for continuing: Hourly intake/output Insertion date: 06/05/18 Insertion time: 08:30 Results - Labs CBC & Chem 7: 06/10/18 10:09 06/10/18 06:00 Laboratory Results - last 24 hr 01/06/09/18 06/10/18 17:57 17:57 06:00 WBC 16.3 H RBC 3.44 L Hgb 11.5 L Hct 34.5 L MCV 100.2 H MCH 33.4 MCHC 33.3 RDW 14.4 Plt Count 199 MPV 8.6 Prelim Diff (Auto) Neut % (Auto) Lymph % (Auto) Citrus % (Auto) Eos % (Auto) Baso % (Auto) Neut # (Auto) Lymph # (Auto) Citrus # (Auto) Eos # (Auto) Baso # (Auto) WBC Differential Seg Neuts % (Manual) Band Neuts % (Manual) Lymphocytes % (Manual) Monocytes % (Manual) Promyelocytes % (Man) Abs Neuts (Manual) Differential Comment Toxic Granulation Platelet Estimate Platelet Morphology Sodium 136 136 Potassium 2.9 L* D 4.1 D Chloride 100 103 Carbon Dioxide 22.8 23.0 Anion Gap 13 10 BUN 7 10 Creatinine 0.27 L 0.35 L Estimated GFR Greater than 89 Greater than 89 Random Glucose 103 139 H Calcium 8.1 L 7.6 L Phosphorus 2.4 L Magnesium 1.7 Total Bilirubin 0.4 AST 143 H ALT 87 H Alkaline Phosphatase 79 Total Protein 5.4 L Albumin 1.5 L Phenytoin 11.6 06/10/18 10:09 WBC 14.3 H RBC 3.15 L Hgb 10.7 L Hct 31.8 L MCV 101.0 H MCH 33.8 MCHC 33.5 RDW 14.1 Plt Count 227 MPV 8.8 Prelim Diff (Auto) Slide review pending Neut % (Auto) 89.2 H Lymph % (Auto) 5.0 L Citrus % (Auto) 5.5 Eos % (Auto) 0.1 Baso % (Auto) 0.2 Neut # (Auto) 13.4 H Lymph # (Auto) 0.8 L [place]rus # (Auto) 0.8 Eos # (Auto) 0.0 Baso # (Auto) 0.0 WBC Differential Manual diff final Seg Neuts % (Manual) 81 H Band Neuts % (Manual) 5 Lymphocytes % (Manual) 8 L Monocytes % (Manual) 5 Promyelocytes % (Man) 1 H Abs Neuts (Manual) 12.4 H Differential Comment . Toxic Granulation 2+ H Platelet Estimate Normal Platelet Morphology Normal Sodium Potassium Chloride Carbon Dioxide Anion Gap BUN Creatinine Estimated GFR Random Glucose Calcium Phosphorus Magnesium Total Bilirubin AST ALT Alkaline Phosphatase Total Protein Albumin Phenytoin Microbiology 06/09/18 06:35 Sputum - Endotracheal Gram Stain - Final 06/09/18 06:35 Sputum - Endotracheal Sputum Culture - Preliminary - Imaging Impressions Head CT 06/09/18 14:55 CONCLUSION: 1. Postoperative findings with ventriculostomy catheter in place, pneumocephalus, and moderate amount of intraventricular blood in the left occipital horn and minimal blood in the right occipital horn. 2. Ventricular size is similar to preoperative CT. No evidence of midline shift or mass effect. . Assessment and Plan - Assessment (1) COPD (chronic obstructive pulmonary disease) Code(s): J44.9 - Chronic obstructive pulmonary disease, unspecified Status: Acute (2) Right upper lobe pulmonary nodule Code(s): R91.1 - Solitary pulmonary nodule Status: Acute (3) Intraventricular hemorrhage, nontraumatic Code(s): I61.5 - Nontraumatic intracerebral hemorrhage, intraventricular Status: Acute (4) Hypertensive emergency Code(s): I16.1 - Hypertensive emergency Status: Acute (5) Metabolic encephalopathy Code(s): G93.41 - Metabolic encephalopathy Status: Acute (6) Altered mental status Code(s): R41.82 - Altered mental status, unspecified Status: Acute (7) History of peripheral arterial disease Code(s): Z86.79 - Personal history of other diseases of the circulatory system Status: Chronic (8) History of hypertension Code(s): Z86.79 - Personal history of other diseases of the circulatory system Status: Chronic (9) Cessation of tobacco use in previous 12 months Code(s): Z87.891 - Personal history of nicotine dependence Status: Chronic - Plan 1 continue to do CPAP 5 x 12 trials daily, and FiO2 30% 2. Continue DuoNeb nebs 4 times daily. 3. Chest x-ray CBC BMP in a.m. 4. Workup for lung mass when clinically stable 5. Check respiratory parameters . 6 Symbicort 160 about 4.5 mcg 1 puff twice daily 7. Solu-Medrol 20 mg IV twice daily 8. Controlled seizures with fosphenytoin and Keppra (6) Altered mental status Qualifiers: Altered mental status type: unspecified Qualified Code(s): R41.82 - Altered mental status, unspecified
[2018-06-10] MEDS: Lisinopril 20 MG Tablet PO SCH (18:38)
[2018-06-10] MEDS: Sodium Chloride 1 GM Tablet PO SCH (21:14)
[2018-06-11 04:37] LABS: Anion Gap 7 meq/L (5-15); Blood Urea Nitrogen 15 mg/dL (7-18); Calcium 7.7 mg/dL (8.5-10.1); Carbon Dioxide 28.9 meq/L (21.0-32.0); Chloride 107 meq/L (98-107); Glomerular Filtration Rate Greater Than 89 mL/min (>89); Glucose,Random 172 mg/dL (74-106); Magnesium 1.7 mg/dL (1.5-2.5); Phenytoin (Dilantin) 17.6 mcg/mL (10.0-20.0); Phosphorus 1.6 mg/dL (2.5-4.9); Potassium 3.1 meq/L (3.5-5.1); Sodium 143 meq/L (136-145)
[2018-06-11 05:19] LABS: Lymphocytes 3 % (9-44); Monocytes 2 % (0-8); Platelet Estimate Normal (Normal)
[2018-06-11] MEDS: Fosphenytoin Inj 200 MGPE in Sodium Chlor 0.9% Inj 50 ML IV.SIG SCH ×3 (05:19→21:31)
[2018-06-11 05:20] LABS: Platelet Morphology Clumped (Normal)
[2018-06-11 05:22] LABS: Baso % (Auto) 0.2 % (0.0-2.0); Eos % (Auto) 0.1 % (0.0-4.0); Hematocrit 27.5 % (35.0-46.0); Hemoglobin 9.3 gm/dL (11.6-15.3); Lymph # (Auto) 0.8 th/mm3 (1.0-4.8); Lymph % (Auto) 5.8 % (9.0-44.0); Mean Corpuscular Hemoglobin 33.5 pg (27.0-34.0); Mean Corpuscular Volume 98.7 fL (80.0-100.0); Mean Platelet Volume 7.6 fL (7.0-11.0); Mono # (Auto) 0.6 th/mm3 (0.0-0.9); Mono % (Auto) 4.5 % (0.0-8.0); Neut # (Auto) 12.1 th/mm3 (1.8-7.7); Neut % (Auto) 89.4 % (16.0-70.0); Platelet Count 240 th/mm3 (150-450); Red Blood Count 2.78 mil/mm3 (4.00-5.30); Red Cell Distribution Width 14.2 % (11.6-17.2)
[2018-06-11] MEDS: Artificial Tears Opth Drops 15 ML Bottle EACH EYE SCH ×3 (05:25→21:30)
[2018-06-11] MEDS: Potassium Chlor 20 mEq Premix 20 MEQ/100 ML PIGGYBACK IV.SIG PRN ×4 (05:32→11:42)
--- NOTE | 2018-06-11 05:48 | XR ---
EXAM DATE: 06/11/2018 5:40 AM EST AGE/SEX: 78 years / Female INDICATIONS: Respiratory failure. CLINICAL DATA: This is the patient's subsequent encounter. Patient reports that signs and symptoms h ave been present for 2 weeks and indicates a pain score of Nonresponsive. MEDICAL/SURGICAL HISTORY: Hypertension. Arthritis. Peripheral artery disease. Coronary artery stent. COMPARISON: [facility], CHEST 1V SINGLE AP, 06/08/2018. . FINDINGS: Endotracheal tube in good position. NG enters stomach. Basilar airspace disease similar to June 08 . No pneumothorax. CONCLUSION: Basilar airspace disease similar to June 08. Endotracheal tube and nasogastric tube in good positi on. Electronically signed by: Bernabe Alvarez MD Board Certified Radiologist 06/11/2018 5:46 AM EST
[2018-06-11] MEDS: MethylPREDNISolone Sod Succinate Inj 40 MG/ML Vial IV.PUSH SCH ×2 (08:58→21:30)
[2018-06-11] MEDS: Pantoprazole Inj 40 MG Vial IV.PUSH SCH (08:59)
[2018-06-11] MEDS: amLODIPine 5 MG Tablet PO SCH (08:59)
[2018-06-11] MEDS: Enoxaparin Inj 40 MG/0.4 ML Syringe SQ SCH (08:59)
[2018-06-11] MEDS: Metoprolol Tartrate 50 MG Tablet PO SCH ×2 (09:00→21:29)
[2018-06-11] MEDS: Lisinopril 20 MG Tablet PO SCH (09:00)
[2018-06-11] MEDS: Sodium Chloride 1 GM Tablet PO SCH ×2 (09:00→21:29)
[2018-06-11] MEDS: Budesonide-Formoterol 160/4.5 MCG 6 GM Inhaler INH SCH ×2 (09:01→21:32)
[2018-06-11] MEDS: Senna/Docusate Sodium 8.6/50 MG Tablet PO SCH ×2 (09:01→21:30)
--- NOTE | 2018-06-11 10:19 | P.PNNS ---
Subjective Interval history: remains intubated, opens eyes. Nursing reports no seizures overnight. <Samanta Banda - Last Filed: 06/11/18 11:39> Physical Exam Vital signs: Vital Signs 06/10/18 11:49 06/10/18 12:00 06/10/18 13:00 Temperature 98.2 F Pulse Rate 79 87 Respiratory Rate 12 12 12 Blood Pressure 107/53 L 115/58 L Pulse Oximetry 100 100 100 06/10/18 14:00 06/10/18 15:00 06/10/18 16:00 Temperature 99 F Pulse Rate 81 92 H 72 Respiratory Rate 12 12 12 Blood Pressure 122/55 L 122/60 91/53 L Pulse Oximetry 100 100 100 06/10/18 17:00 06/10/18 17:49 06/10/18 18:00 Temperature Pulse Rate 79 82 71 Respiratory Rate 12 13 12 Blood Pressure 119/58 L 99/54 L Pulse Oximetry 100 100 06/10/18 19:00 06/10/18 19:30 06/10/18 19:37 Temperature Pulse Rate 88 79 86 Respiratory Rate 12 Blood Pressure 112/53 L 115/56 L Pulse Oximetry 100 99 06/10/18 19:38 06/10/18 20:00 06/10/18 20:30 Temperature 98 F Pulse Rate 77 75 Respiratory Rate 12 Blood Pressure 104/55 L 88/51 L Pulse Oximetry 99 100 100 06/10/18 20:33 06/10/18 21:00 06/10/18 21:30 Temperature Pulse Rate 76 87 89 Respiratory Rate Blood Pressure 90/54 L 103/59 L 141/60 H Pulse Oximetry 100 100 100 06/10/18 22:00 06/10/18 22:30 06/10/18 23:00 Temperature Pulse Rate 76 78 75 Respiratory Rate Blood Pressure 96/51 L 122/58 L 110/56 L Pulse Oximetry 100 100 100 06/10/18 23:30 06/11/18 00:00 06/11/18 00:30 Temperature 98.8 F Pulse Rate 85 90 82 Respiratory Rate Blood Pressure 114/57 L 119/57 L 125/57 L Pulse Oximetry 100 97 100 06/11/18 01:00 06/11/18 01:30 06/11/18 02:00 Temperature Pulse Rate 80 92 H 78 Respiratory Rate Blood Pressure 104/54 L 128/61 105/54 L Pulse Oximetry 100 100 100 06/11/18 02:30 06/11/18 03:00 06/11/18 03:30 Temperature Pulse Rate 81 79 88 Respiratory Rate Blood Pressure 116/58 L 106/53 L 126/59 L Pulse Oximetry 100 100 100 06/11/18 03:41 06/11/18 04:00 06/11/18 04:30 Temperature 99.6 F Pulse Rate 91 H 83 103 H Respiratory Rate 16 Blood Pressure 138/60 146/63 H Pulse Oximetry 100 100 100 06/11/18 05:00 06/11/18 05:30 06/11/18 06:00 Temperature Pulse Rate 88 89 76 Respiratory Rate Blood Pressure 125/60 139/61 124/70 Pulse Oximetry 100 100 100 06/11/18 06:30 06/11/18 07:00 06/11/18 07:30 Temperature Pulse Rate 79 82 85 Respiratory Rate Blood Pressure 122/58 L 132/60 114/57 L Pulse Oximetry 100 100 100 06/11/18 08:00 06/11/18 08:09 06/11/18 08:30 Temperature Pulse Rate 87 93 H 90 Respiratory Rate 12 Blood Pressure 125/60 113/56 L Pulse Oximetry 100 100 100 06/11/18 09:00 06/11/18 09:24 06/11/18 10:00 Temperature Pulse Rate 82 95 H 81 Respiratory Rate Blood Pressure 131/57 L 139/61 119/56 L Pulse Oximetry 98 99 99 06/11/18 10:11 Temperature Pulse Rate 91 H Respiratory Rate Blood Pressure Pulse Oximetry Intake & Output 06/10/18 06/11/18 06/11/18 18:59 06:59 18:59 Intake Total 798 / 798 1740 / 1740 200 / 200 Output Total 316 / 316 350 / 350 Balance 482 / 482 1390 / 1390 200 / 200 Weight 68.1 kg Intake: IV 169 / 169 1270 / 1270 200 / 200 Sodium Chloride 23.4% Inj 188 1047 / 1047 MEQ In NS Inj 1,000 ML @ 42 mls /hr IV.CONT .Q24H [facility] Rx#: [id number] Cerebyx Inj 200 MGPE In NS Inj 54 / 54 108 / 108 50 ML @ 216 mls/hr IV.SIG Q8HR [facility] Rx#:[id number] KCl 20 mEq Premix Inj 20 meq In 200 / 200 100 ml @ 50 mls/hr IV.SIG Q2H PRN Rx#:[id number] Keppra Inj 1,500 MG In NS Inj 115 / 115 115 / 115 100 ML @ 400 mls/hr IV.SIG Q12H [facility] Rx#:[id number] Tube Feeding 479 / 479 350 / 350 Tube Irrigant 120 / 120 Water Bolus Amount 150 / 150 Output: Urine Amount (Catheter) 250 / 250 250 / 250 Indwelling Urethral Catheter 250 / 250 250 / 250 Gastric Drainage 0 / 0 Orogastric Tube 0 / 0 Wound Drainage 100 / 100 # 1 Left Head 100 / 100 Intracranial Drainage 66 / 66 Ventricle Left Temporoparietal 66 / 66 Other: Date of Last Bowel Movement 06/09/18 06/10/18 06/10/18 # Bowel Movements 0 1 # Incontinent Bowel Movements 1 - Urinary Catheter Management Female External Cath placed during this visit: no Indwelling Urethral Catheter Cath placed during this visit: no <Duke Palacios - Last Filed: 06/11/18 11:01> Vital signs: Vital Signs 06/10/18 11:00 06/10/18 11:49 06/10/18 12:00 Temperature 98.2 F Pulse Rate 92 H 79 Respiratory Rate 12 12 12 Blood Pressure 113/56 L 107/53 L Pulse Oximetry 99 100 100 06/10/18 13:00 06/10/18 14:00 06/10/18 15:00 Temperature Pulse Rate 87 81 92 H Respiratory Rate 12 12 12 Blood Pressure 115/58 L 122/55 L 122/60 Pulse Oximetry 100 100 100 06/10/18 16:00 06/10/18 17:00 06/10/18 17:49 Temperature 99 F Pulse Rate 72 79 82 Respiratory Rate 12 12 13 Blood Pressure 91/53 L 119/58 L Pulse Oximetry 100 100 06/10/18 18:00 06/10/18 19:00 06/10/18 19:30 Temperature Pulse Rate 71 88 79 Respiratory Rate 12 Blood Pressure 99/54 L 112/53 L 115/56 L Pulse Oximetry 100 100 99 06/10/18 19:37 06/10/18 19:38 06/10/18 20:00 Temperature 98 F Pulse Rate 86 77 Respiratory Rate 12 12 Blood Pressure 104/55 L Pulse Oximetry 99 100 06/10/18 20:30 06/10/18 20:33 06/10/18 21:00 Temperature Pulse Rate 75 76 87 Respiratory Rate Blood Pressure 88/51 L 90/54 L 103/59 L Pulse Oximetry 100 100 100 06/10/18 21:30 06/10/18 22:00 06/10/18 22:30 Temperature Pulse Rate 89 76 78 Respiratory Rate Blood Pressure 141/60 H 96/51 L 122/58 L Pulse Oximetry 100 100 100 06/10/18 23:00 06/10/18 23:30 06/11/18 00:00 Temperature 98.8 F Pulse Rate 75 85 90 Respiratory Rate Blood Pressure 110/56 L 114/57 L 119/57 L Pulse Oximetry 100 100 97 06/11/18 00:30 06/11/18 01:00 06/11/18 01:30 Temperature Pulse Rate 82 80 92 H Respiratory Rate Blood Pressure 125/57 L 104/54 L 128/61 Pulse Oximetry 100 100 100 06/11/18 02:00 06/11/18 02:30 06/11/18 03:00 Temperature Pulse Rate 78 81 79 Respiratory Rate Blood Pressure 105/54 L 116/58 L 106/53 L Pulse Oximetry 100 100 100 06/11/18 03:30 06/11/18 03:41 06/11/18 04:00 Temperature 99.6 F Pulse Rate 88 91 H 83 Respiratory Rate 16 Blood Pressure 126/59 L 138/60 Pulse Oximetry 100 100 100 06/11/18 04:30 06/11/18 05:00 06/11/18 05:30 Temperature Pulse Rate 103 H 88 89 Respiratory Rate Blood Pressure 146/63 H 125/60 139/61 Pulse Oximetry 100 100 100 06/11/18 06:00 06/11/18 06:30 06/11/18 07:00 Temperature Pulse Rate 76 79 82 Respiratory Rate Blood Pressure 124/70 122/58 L 132/60 Pulse Oximetry 100 100 100 06/11/18 07:30 06/11/18 08:00 06/11/18 08:09 Temperature Pulse Rate 85 87 93 H Respiratory Rate 12 Blood Pressure 114/57 L 125/60 Pulse Oximetry 100 100 100 06/11/18 08:30 06/11/18 09:00 Temperature Pulse Rate 90 82 Respiratory Rate Blood Pressure 113/56 L 131/57 L Pulse Oximetry 100 98 Intake & Output 06/10/18 06/11/18 06/11/18 18:59 06:59 18:59 Intake Total 798 / 798 1740 / 1740 200 / 200 Output Total 316 / 316 350 / 350 Balance 482 / 482 1390 / 1390 200 / 200 Weight 68.1 kg Intake: IV 169 / 169 1270 / 1270 200 / 200 Sodium Chloride 23.4% Inj 188 1047 / 1047 MEQ In NS Inj 1,000 ML @ 42 mls /hr IV.CONT .Q24H [facility] Rx#: [id number] Cerebyx Inj 200 MGPE In NS Inj 54 / 54 108 / 108 50 ML @ 216 mls/hr IV.SIG Q8HR [facility] Rx#:[id number] KCl 20 mEq Premix Inj 20 meq In 200 / 200 100 ml @ 50 mls/hr IV.SIG Q2H [facility] Rx#:[id number] Keppra Inj 1,500 MG In NS Inj 115 / 115 115 / 115 100 ML @ 400 mls/hr IV.SIG Q12H [facility] Rx#:[id number] Tube Feeding 479 / 479 350 / 350 Tube Irrigant 120 / 120 Water Bolus Amount 150 / 150 Output: Urine Amount (Catheter) 250 / 250 250 / 250 Indwelling Urethral Catheter 250 / 250 250 / 250 Gastric Drainage 0 / 0 Orogastric Tube 0 / 0 Wound Drainage 100 / 100 # 1 Left Head 100 / 100 Intracranial Drainage 66 / 66 Ventricle Left Temporoparietal 66 / 66 Other: Date of Last Bowel Movement 06/09/18 06/10/18 06/10/18 # Bowel Movements 0 1 # Incontinent Bowel Movements 1 Narrative: Patient is intubated. She does open eyes, focuses, tracks, follows simple commands x 4 extremities, weaker on the right. pupils are equal. wound with dressing clean dry and intact. Ventriculostomy drain in place at 5 mmHg. ICPs controlled. CSF clearing up. - Urinary Catheter Management Female External Cath placed during this visit: no Reason for continuing: Not indwelling catheter Indwelling Urethral Catheter Cath placed during this visit: yes Reason for continuing: Hourly intake/output Insertion date: 06/05/18 Insertion time: 08:30 <Samanta Banda - Last Filed: 06/11/18 11:39> Assessment and Plan - Attending Attestation Remains Neurologically stable. Less somnolent today I have personally seen and examined the patient, reviewed pertinent labs and imaging studies with the Neurosurgery team. I agree with Ms. Banda's ( Neurosurgery CAR COOPER), assessment as well as plan of care. 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 hemorrhagic mass Will follow with you 05/30/18: cont neuro checks in ICU Dr. 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 at midnight on Monday night into Monday Minimize sedating meds, etc. 06/03/18: Appears to be a bit more encephalopathic today, possible contribution of hospital delirium versus her mild hydrocephalus, though favor delirium since her level of alertness remains stable Dr. 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 at midnight tonight Continue to minimize sedating meds, etc. 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 Palacios 06/06/18: POD #1. pt had seizure last night requiring intubation. She has been started on Keppra for seizures. On exam she opens eyes and follows commands. Postoperative MRI Brain w/wo contrast has been ordered and pending. Obtain EEG to assess seizures. Continue ventriculostomy draining, add ICP monitoring. Start sq lovenox for dvt prophylaxis. Will follow. 06/07/18: POD #2. patient neurologically stable, opens eyes and follows commands. Postoperative MRI Brain reviewed by neurosurgery team. Spot EEG reports no ongoing seizures, with high amplitude sharp waves on left?breach rhythm. Critical care plans on extubation today. Continue ventriculostomy draining at 10 mmHg. Final pathology pending. Neurology following for seizure management. Will follow. 06/08/18: POD #3. patient neurologically stable, opens eyes and follows commands. Ventriculostomy draining well with controlled ICPs, will continue at 10mmHg. Pathology still pending. cont seizure management per Neurology. dw critical care. will follow. 06/09/2018 POD#4 Remains Neurologically stable, follows commands Stop sedation wean ventilator to CPAP 5 x 12 and FiO2 30% Continue DuoNeb nebs 4 times daily. Check respiratory parameters and consider extubation Agree with Symbicort 160 about 4.5 mcg 1 puff twice daily and Solu-Medrol 40 mg IV twice daily Continue EVD Would maintain SBP 140-160 to improve CPP. 06/10/2018 POD#5 Seizure yesterday, and last night, have increased Cerebyx and Keppra D/C'ed Barbs would prefer to maintain on 2 agents and high therapeutic levels of Cerebyx, usually best with brain tumors Free Dilantin levels not easily obtainable here. Lets keep level around 20 with standard level remains Neurologically stable wean ventilator to CPAP 5 x 12 and FiO2 30% and if OK, may extubate from Neurosurgical standpoint. 06/11/18 POD #6 seizures controlled overnight, will continue Cerebyx 200 tid and Keppra 1500 bid. Dilantin levels 17.6 today continue critical care - vent weaning - CPAP trials cont EVD draining at 5 mmHg final pathology still pending will follow <Samanta Banda - Last Filed: 06/11/18 11:39>
[2018-06-11] MEDS: levETIRAcetam Inj 1,500 MG in Sodium Chlor 0.9% Inj 100 ML IV.SIG SCH ×2 (10:45→23:00)
--- NOTE | 2018-06-11 15:45 | P.PNCC ---
Subjective Subjective Remarks/Hospital Course: Patient is a 78-year-old female with past medical history significant for hypertension, peripheral arterial disease, history of vascular intervention/ stenting, arthritis who presented to the [facility] with mostly nonspecific complaints of memory loss and hallucinations for 1 week and worsening tremors of the right arm. Further workup in the emergency department showed subacute intraventricular hemorrhage into the left lateral ventricle and a focal thrombus that may be obstructing foramina of [place]. There was enlargement of the left lateral ventricle compared to the prior MRI. Also trace blood in the occipital horn of left lateral ventricle. With evidence of intraventricular hemorrhage patient was transferred emergently to [facility] for neurosurgery consult. I evaluated the patient after arrival to the ICU. Patient is profoundly hypertensive systolic blood pressure 190-200. IV labetalol 20 mg IV push given followed by Cardene infusion started. On exam patient did not appear to be in distress. No definite focal deficit however patient is oriented only to person. Reviewed CT scan with neurosurgery Dr. Palacios. On his review CT shows 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 hemorrhagic mass at foramen of Bell with asymmetric left sided ventricular dilatation. Stat MRI of the brain with and without contrast ordered. Started on Cardene infusion with target systolic blood pressure less than 140 05/30/18: MRI brain showed 2.3 x 1.7 cm mass within the body of the left lateral ventricle measuring 2.3 x 1.7 cm left lateral ventricle is prominent may be related to production of CSF from this mass. 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 Additional mass in the cerebellopontine angle on the left compressing upon the brainstem measuring 1.8 x 1.4 cm. Slightly more agitated and confused today. Partly secondary to mass partly could be alcohol withdrawal. Placed on as needed Haldol 05/31: Patient remains sedated received Ativan a few hours before. Currently for that reason Precedex is being held. Wakes up follows some commands. Oriented to person only. Plan for craniotomy and resection of intraventricular mass scheduled tentatively for Monday. Ct chest: 1.6 x 1.1 cm spiculated RUL nodule concerning for metastasis or primary lung malignancy. 1.1 x 1.4 cm soft tissue density inferior lateral margin of the right breast implant ?focal disruption vs breast mass. CT abdomen pelvis: 1.3 cm left adrenal mass concerning for metastatic disease given findings of brain and lung mass. 1.6 cm indeterminate low-density lesion in the posterior right lobe of the liver with numerous additional subcentimeter hypodense lesions which are too small to fully characterize. Metastatic disease cannot be entirely excluded, possibly cysts. 06/01: Remains confused slightly agitated remains on Precedex. CT angiogram yesterday of the brain showed previously demonstrated intraventricular mass however no cerebellopontine angle mass. WBC count elevated to 19.1 no fever. Will check UA-previously ordered UA had not been done. Check blood cultures, chest x-ray is clear. Continue to hold Plavix 06/02: Plan is for resection of brain mass on Monday. Patient continues breathing comfortably. 06/03: Ready for OR. Labs are in order. INR 1.1. Plavix effect noted on . 06/04: Coagulation profile normal. Patient scheduled for surgery tomorrow. No new complaints. 06/05: Patient seen in PACU shortly after surgery. Brief generalized seizure terminated with Ativan 1 mg. Patient loaded with Cerebyx 1 g. Neurologic exam nonfocal at this time. Pupils pinpoint. Required reintubation due to somnolence. 06/06: T-max 100.8. Currently afebrile. Patient arousable on the ventilator. Hypotensive requiring 1 L bolus normal saline. MRI brain pending. EEG ongoing. 06/07: T-max 100.6. Currently 99.8. MRI brain showed postsurgical change with no increased hemorrhage noted. Replacing potassium, phosphorus and magnesium currently. Dexmedetomidine drip is currently off. Noted some breech with EEG yesterday. Dilantin level therapeutic. 06/08: All sedation off for about 24 hours. She will open her eyes to stimulation. Withdraws 4 limbs to stimulation but right upper extremity appears weaker. Dilantin level is therapeutic and no more seizures. We will attempt to extubate when she can control her airway. Presently too somnolent. 06/09: Possibly slightly more arousable than when I saw her for 8 hours ago. Will reflexively squeeze left upper extremity. Not currently following commands with right upper extremity for me. Tube feeding today increase antihypertensives to wean off clevidipine drip. 06/10: Currently on fosphenytoin 200 mg twice daily and levetiracetam 1500 mg twice daily. Failed CPAP trials x2 today secondary to apnea. Will reattempt this afternoon. Arousable and opens eyes. Spontaneous moves left upper extremity but not following commands. We check EEG today. Subjective 06/11: Resting in bed. No seizure activity more awake and following commands. Will attempt extubation today at 1700 hrs. Objective Vital Signs / I&O: Vital Signs 06/10/18 16:00 06/10/18 17:00 06/10/18 17:49 Temperature 99 F Pulse Rate 72 79 82 Respiratory Rate 12 12 13 Blood Pressure 91/53 L 119/58 L Pulse Oximetry 100 100 06/10/18 18:00 06/10/18 19:00 06/10/18 19:30 Temperature Pulse Rate 71 88 79 Respiratory Rate 12 Blood Pressure 99/54 L 112/53 L 115/56 L Pulse Oximetry 100 100 99 06/10/18 19:37 06/10/18 19:38 06/10/18 20:00 Temperature 98 F Pulse Rate 86 77 Respiratory Rate 12 12 Blood Pressure 104/55 L Pulse Oximetry 99 100 06/10/18 20:30 06/10/18 20:33 06/10/18 21:00 Temperature Pulse Rate 75 76 87 Respiratory Rate Blood Pressure 88/51 L 90/54 L 103/59 L Pulse Oximetry 100 100 100 06/10/18 21:30 06/10/18 22:00 06/10/18 22:30 Temperature Pulse Rate 89 76 78 Respiratory Rate Blood Pressure 141/60 H 96/51 L 122/58 L Pulse Oximetry 100 100 100 06/10/18 23:00 06/10/18 23:30 06/11/18 00:00 Temperature 98.8 F Pulse Rate 75 85 90 Respiratory Rate Blood Pressure 110/56 L 114/57 L 119/57 L Pulse Oximetry 100 100 97 06/11/18 00:30 06/11/18 01:00 06/11/18 01:30 Temperature Pulse Rate 82 80 92 H Respiratory Rate Blood Pressure 125/57 L 104/54 L 128/61 Pulse Oximetry 100 100 100 06/11/18 02:00 06/11/18 02:30 06/11/18 03:00 Temperature Pulse Rate 78 81 79 Respiratory Rate Blood Pressure 105/54 L 116/58 L 106/53 L Pulse Oximetry 100 100 100 06/11/18 03:30 06/11/18 03:41 06/11/18 04:00 Temperature 99.6 F Pulse Rate 88 91 H 83 Respiratory Rate 16 Blood Pressure 126/59 L 138/60 Pulse Oximetry 100 100 100 06/11/18 04:30 06/11/18 05:00 06/11/18 05:30 Temperature Pulse Rate 103 H 88 89 Respiratory Rate Blood Pressure 146/63 H 125/60 139/61 Pulse Oximetry 100 100 100 06/11/18 06:00 06/11/18 06:30 06/11/18 07:00 Temperature Pulse Rate 76 79 82 Respiratory Rate Blood Pressure 124/70 122/58 L 132/60 Pulse Oximetry 100 100 100 06/11/18 07:30 06/11/18 08:00 06/11/18 08:09 Temperature Pulse Rate 85 87 93 H Respiratory Rate 12 Blood Pressure 114/57 L 125/60 Pulse Oximetry 100 100 100 06/11/18 08:30 06/11/18 09:00 06/11/18 09:24 Temperature Pulse Rate 90 82 95 H Respiratory Rate Blood Pressure 113/56 L 131/57 L 139/61 Pulse Oximetry 100 98 99 06/11/18 10:00 06/11/18 10:11 06/11/18 11:00 Temperature Pulse Rate 81 91 H 96 H Respiratory Rate Blood Pressure 119/56 L 131/61 Pulse Oximetry 99 97 06/11/18 12:00 06/11/18 12:15 06/11/18 12:25 Temperature 98.7 F Pulse Rate 84 90 Respiratory Rate 16 Blood Pressure 109/55 L Pulse Oximetry 99 100 06/11/18 13:00 06/11/18 14:00 Temperature Pulse Rate 90 93 H Respiratory Rate Blood Pressure 127/59 L 126/61 Pulse Oximetry 100 99 Intake & Output 06/10/18 06/11/18 06/11/18 18:59 06:59 18:59 Intake Total 798 / 798 1740 / 1740 300 / 300 Output Total 316 / 316 350 / 350 Balance 482 / 482 1390 / 1390 300 / 300 Weight 68.1 kg Intake: IV 169 / 169 1270 / 1270 300 / 300 Sodium Chloride 23.4% Inj 188 1047 / 1047 MEQ In NS Inj 1,000 ML @ 42 mls /hr IV.CONT .Q24H [facility] Rx#: [id number] Cerebyx Inj 200 MGPE In NS Inj 54 / 54 108 / 108 50 ML @ 216 mls/hr IV.SIG Q8HR [facility] Rx#:[id number] KCl 20 mEq Premix Inj 20 meq In 300 / 300 100 ml @ 50 mls/hr IV.SIG Q2H PRN Rx#:[id number] Keppra Inj 1,500 MG In NS Inj 115 / 115 115 / 115 100 ML @ 400 mls/hr IV.SIG Q12H [facility] Rx#:[id number] Tube Feeding 479 / 479 350 / 350 Tube Irrigant 120 / 120 Water Bolus Amount 150 / 150 Output: Urine Amount (Catheter) 250 / 250 250 / 250 Indwelling Urethral Catheter 250 / 250 250 / 250 Gastric Drainage 0 / 0 Orogastric Tube 0 / 0 Wound Drainage 100 / 100 # 1 Left Head 100 / 100 Intracranial Drainage Ventricle Left Temporoparietal Other: Date of Last Bowel Movement 06/09/18 06/10/18 06/10/18 # Bowel Movements 0 1 # Incontinent Bowel Movements 1 Result Diagrams: 06/11/18 03:20 06/11/18 03:20 Other Results: Microbiology 06/09/18 06:35 Sputum - Endotracheal Gram Stain - Final 06/09/18 06:35 Sputum - Endotracheal Sputum Culture - Final Heavy growth normal respiratory flores 06/01/18 10:21 Blood - Peripheral Aerobic Blood Culture - Final No growth in 5 days 06/01/18 10:21 Blood - Peripheral Anaerobic Blood Culture - Final No growth in 5 days 06/01/18 10:16 Blood - Peripheral Aerobic Blood Culture - Final No growth in 5 days 06/01/18 10:16 Blood - Peripheral Anaerobic Blood Culture - Final No growth in 5 days Imaging: Microbiology 06/09/18 06:35 Sputum - Endotracheal Gram Stain - Final 06/09/18 06:35 Sputum - Endotracheal Sputum Culture - Final Heavy growth normal respiratory flores 06/01/18 10:21 Blood - Peripheral Aerobic Blood Culture - Final No growth in 5 days 06/01/18 10:21 Blood - Peripheral Anaerobic Blood Culture - Final No growth in 5 days 06/01/18 10:16 Blood - Peripheral Aerobic Blood Culture - Final No growth in 5 days 06/01/18 10:16 Blood - Peripheral Anaerobic Blood Culture - Final No growth in 5 days Objective Remarks: GENERAL: This is a 78-year-old female currently orotracheally intubated SKIN: Warm and dry. HEAD: EVD in place. EYES: Pupils equal and round. About 2 mm bilaterally and reactive, no scleral icterus. No injection or drainage. ENT: No nasal bleeding or discharge. Mucous membranes pink and moist. NECK: Trachea midline. Orotracheal intubation CARDIOVASCULAR: Regular rate and rhythm. S1, S2 no S 4. No murmur RESPIRATORY: Normal excursions on mechanical ventilation. Clear to auscultation. Breath sounds equal bilaterally. GASTROINTESTINAL: Abdomen soft, non-tender, nondistended. No guarding, bowel sounds active. MUSCULOSKELETAL: Extremities with 1 bilateral upper and lower extremity edema. Warm, well-perfused NEUROLOGICAL: Positive cough and gag. Pupils reactive. Arousable on the ventilator and opens eyes moves all left upper, left lower and right lower extremity. Very difficult to the evaluate right upper extremity. GENERAL: SKIN: Warm and dry. HEAD: Atraumatic. Normocephalic. EYES: Pupils equal and round. No scleral icterus. No injection or drainage. ENT: No nasal bleeding or discharge. Mucous membranes pink and moist. NECK: Trachea midline. No JVD. CARDIOVASCULAR: Regular rate and rhythm. RESPIRATORY: No accessory muscle use. Clear to auscultation. Breath sounds equal bilaterally. GASTROINTESTINAL: Abdomen soft, non-tender, nondistended. Hepatic and splenic margins not palpable. MUSCULOSKELETAL: Extremities without clubbing, cyanosis, or edema. No obvious deformities. NEUROLOGICAL: Awake and alert. No obvious cranial nerve deficits. Motor grossly within normal limits. Five out of 5 muscle strength in the arms and legs. Normal speech. PSYCHIATRIC: Appropriate mood and affect; insight and judgment normal. Assessment and Plan - Problem List (1) Intraventricular hemorrhage, nontraumatic Code(s): I61.5 - Nontraumatic intracerebral hemorrhage, intraventricular Status: Acute (2) Hypertensive emergency Code(s): I16.1 - Hypertensive emergency Status: Acute (3) Metabolic encephalopathy Code(s): G93.41 - Metabolic encephalopathy Status: Acute (4) Altered mental status Code(s): R41.82 - Altered mental status, unspecified Status: Acute (5) History of peripheral arterial disease Code(s): Z86.79 - Personal history of other diseases of the circulatory system Status: Chronic (6) History of hypertension Code(s): Z86.79 - Personal history of other diseases of the circulatory system Status: Chronic (7) Cessation of tobacco use in previous 12 months Code(s): Z87.891 - Personal history of nicotine dependence Status: Chronic - Assessment and Plan Plan: NEURO/psych: 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 -Status post left craniotomy resection of tumor 06/0506/04/2018 (clopidogrel will be held for 7 days prior to surgery) -Oncology consult, also CT chest abdomen pelvis -right upper lobe mass with probable adrenal metastases cannot rule out liver metastases -Tight blood pressure control with nicardipine e and IV labetalol as needed, and PO meds, see below -Keep systolic blood pressure less than 150 -Supplement multivitamin thiamine given daily alcohol use -Watch closely for alcohol withdrawal -Mild alcohol withdrawal contributing to agitation -Use expected for agitation, Haldol as needed -EEG originally negative for seizures -Repeat EEG 06/06 field possible left frontal breakthrough. Loaded with fosphenytoin 1 g.. Start on 100 mg 3 times daily recheck level in a.m was 9.2 with free level around 17. Continue per neurology. -MRA 06/06 brain revealed left lateral ventricle resection, intervertebral hemorrhage slightly decreased. Small subdural hematoma. Postsurgical. Rightward shift 5 mm. -Sharp left frontal yesterday. Recheck EEG today Currently on fosphenytoin 200 mg every 12 hours. Level 17 On levetiracetam 1500 mg IV twice daily. RESP: Acute respiratory failure Previous tobacco use Right upper lobe speak with a mass -PRVC ventilation with ventilator bundle/head of bed at 30 degrees -Albuterol/ipratropium aerosols every 4 hours scheduled and as needed albuterol aerosols every 2 hours as needed -Pulmonology consulted for right upper lobe mass concerning for primary malignancy, with adrenal mass -Pulmonary Dr. Evans suggesting CT-guided biopsy and PET scan once clinically more stable and neuro surgery completed -Reintubated and ISC after PACU 06/05. -Spontaneous breathing trials today again, attempt extubation when she can protect her airway. CV: Hypertensive emergency History of hypertension Peripheral arterial disease -Normal saline IV fluids 84 mL/h -Clevidipine nfusion and, IV labetalol as needed for systolic blood pressure less than 150 -Continue home enalapril 40 mg daily and amlodipine 5 mg daily increased to 10 mg daily, continue pravastatin [address] Quintero Added metoprolol tartrate 50 mg twice daily -Continue holding clopidogrel until cleared by neurosurgery -Decrease platelet activity noted on 06/01 -INR, PT, PTT normal - GI: Left adrenal mass 1.3 x 1.2 cm Colonic diverticulosis Right liver mass versus cyst Elevated LFTs -Currently n.p.o. status, lansoprazole for GI prophylax. Docusate sodium/senna 1 tablet twice daily for bowel regimen -Continue tube feedings with vital 1.5 goal 50 cc an hour -Check ammonia level in a.m. : -Monitor renal function closely. ID: -No indication for antibiotics at this time status post cefazolin HEME: Leukocytosis Macrocytic anemia -Oncology. 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 Kapadia FEN/ENDO: Hypokalemia Hypophosphatemia -Electrolyte replacement per protocol PROPH: -Bilateral lower extremity SCDs. Avoid chemical DVT prophylaxis until after surgery. LINES: -Utilize peripheral IVs, central line if needed Level 2 follow-up (4) Altered mental status Qualifiers: Altered mental status type: unspecified Qualified Code(s): R41.82 - Altered mental status, unspecified
[2018-06-11 16:47] LABS: Albumin 1.7 g/dL (3.4-5.0)
[2018-06-11 16:49] LABS: Total Protein 5.5 g/dL (6.4-8.2)
[2018-06-11] MEDS ORDERED: Magnesium Sulfate Inj 4 GM in Sodium Chlor 0.9% Inj 92 ML IV.SIG ONE (17:00)
--- NOTE | 2018-06-11 17:16 | MG ---
cc: Juan J Mace MD, PhD TEST NUMBER: [id number] TECHNIQUE: This is a 17-channel EEG. DESCRIPTION: The background activity shows mild slowing in the theta frequency at roughly 6-8 Hz. There is intermittent, sharp activity with phase reversal over the left hemisphere in the left parietal temporal area, which occurs fairly regularly throughout the tracing in an almost periodic fashion. Photic stimulation was done with a poor driving response. INTERPRETATION: Abnormal study. Sharp activity was identified over the left hemisphere, which does have epileptiform features suggestive of an epileptogenic focus in the left hemisphere versus PLEDS. Juan J Mace MD, PhD [place]/barbara , 04:53 PM , 04:58 PM
[2018-06-11] MEDS ORDERED: Etomidate Inj 20 MG/10 ML Ampul IV.PUSH ONE (17:33)
[2018-06-11] MEDS ORDERED: Lidocaine 2% 100 MG/5 ML Syringe IV.PUSH ONE (17:33)
[2018-06-11] MEDS ORDERED: Lidocaine 2% 100 MG/5 ML Syringe ONE (17:37)
[2018-06-11] MEDS ORDERED: Etomidate Inj 40 MG/20 ML Vial IV.PUSH ONE (17:37)
--- NOTE | 2018-06-11 18:03 | P.PCN ---
Date of procedure: 06/11/18 Pre-op diagnosis: Acute respiratory failure Post-op diagnosis: same Procedure: DATE: 06/11/2018 PROCEDURE: Orotracheal intubation INDICATION: Acute respiratory failure DETAILS OF PROCEDURE The patient was placed in optimal position and preoxygenated with 100% FiO2 via bag valve mask. At the start oxygen saturation was 100%. The patient was administered 100 cc of 2% lidocaine, 20 milligrams etomidate IV and 50 milligrams rocuronium IV. I entered the oropharynx with a size 4 Ferny laryngoscope blade and obtained a grade 2 view of the airway. On single attempt a size 8.0 cuffed endotracheal tube was passed through the vocal cords. Correct tube location was confirmed with end tidal CO2 detector and by auscultating over bilateral lung wasserman. The endotracheal tube was secured with adhesive tape at a depth of 23 cm at the lips. The patient was connected to the ventilator. The patient tolerated the procedure well without any apparent complications. Oxygen saturations were maintained greater than 95% all times. STAT chest x-ray pending at time of dictation.
--- NOTE | 2018-06-11 18:35 | XR ---
EXAM DATE: 06/11/2018 6:26 PM EST AGE/SEX: 78 years / Female INDICATIONS: Post intubation. CLINICAL DATA: This is the patient's subsequent encounter. Patient reports that signs and symptoms h ave been present for 2 weeks and indicates a pain score of Nonresponsive. MEDICAL/SURGICAL HISTORY: . Hypertension. Arthritis. Peripheral artery disease. . Coronary ar prashant stent. COMPARISON: [facility] [place], CHEST 1V SINGLE AP, 06/11/2018. . FINDINGS: A single AP view of the chest demonstrates bibasilar airspace disease. Heart normal in size. Endotrac heal tube 1.6 cm above the claire without evidence of mass, infiltrate or effusion. Nodular density i n the right upper lobe. The cardiomediastinal contours are unremarkable. Osseous structures are inta ct. CONCLUSION: 1. Endotracheal tube 1.6 cm above the claire. 2. Bibasilar consolidation. 3. Nodular density right upper lobe. Electronically signed by: Brock Pineda MD Board Certified Radiologist 06/11/2018 6:34 PM EST
[2018-06-11] MEDS: hydrALAZINE HCl Inj 20 MG/ML Vial IV.PUSH PRN (18:45)
[2018-06-11 18:59] LABS: ABG Base Excess 3.2 mmol/L (-2-2); ABG PCO2 32 mmHg (38-42); ABG PO2 117 mmHg (61-120)
--- NOTE | 2018-06-11 19:07 | P.PN ---
Subjective Interval history: Was awake today and was extubated earlier. Went into respiratory failure and had to be reintubated. Now sedated on back on ventilator support. FiO2 50% Hemodynamics are stable Physical Exam Vital signs: Vital Signs 06/10/18 19:30 06/10/18 19:37 06/10/18 19:38 Temperature Pulse Rate 79 86 Respiratory Rate 12 12 Blood Pressure 115/56 L Pulse Oximetry 99 99 06/10/18 20:00 06/10/18 20:30 06/10/18 20:33 Temperature 98 F Pulse Rate 77 75 76 Respiratory Rate Blood Pressure 104/55 L 88/51 L 90/54 L Pulse Oximetry 100 100 100 06/10/18 21:00 06/10/18 21:30 06/10/18 22:00 Temperature Pulse Rate 87 89 76 Respiratory Rate Blood Pressure 103/59 L 141/60 H 96/51 L Pulse Oximetry 100 100 100 06/10/18 22:30 06/10/18 23:00 06/10/18 23:30 Temperature Pulse Rate 78 75 85 Respiratory Rate Blood Pressure 122/58 L 110/56 L 114/57 L Pulse Oximetry 100 100 100 06/11/18 00:00 06/11/18 00:30 06/11/18 01:00 Temperature 98.8 F Pulse Rate 90 82 80 Respiratory Rate Blood Pressure 119/57 L 125/57 L 104/54 L Pulse Oximetry 97 100 100 06/11/18 01:30 06/11/18 02:00 06/11/18 02:30 Temperature Pulse Rate 92 H 78 81 Respiratory Rate Blood Pressure 128/61 105/54 L 116/58 L Pulse Oximetry 100 100 100 06/11/18 03:00 06/11/18 03:30 06/11/18 03:41 Temperature Pulse Rate 79 88 91 H Respiratory Rate 16 Blood Pressure 106/53 L 126/59 L Pulse Oximetry 100 100 100 06/11/18 04:00 06/11/18 04:30 06/11/18 05:00 Temperature 99.6 F Pulse Rate 83 103 H 88 Respiratory Rate Blood Pressure 138/60 146/63 H 125/60 Pulse Oximetry 100 100 100 06/11/18 05:30 06/11/18 06:00 06/11/18 06:30 Temperature Pulse Rate 89 76 79 Respiratory Rate Blood Pressure 139/61 124/70 122/58 L Pulse Oximetry 100 100 100 06/11/18 07:00 06/11/18 07:30 06/11/18 08:00 Temperature Pulse Rate 82 85 87 Respiratory Rate Blood Pressure 132/60 114/57 L 125/60 Pulse Oximetry 100 100 100 06/11/18 08:09 06/11/18 08:30 06/11/18 09:00 Temperature Pulse Rate 93 H 90 82 Respiratory Rate 12 Blood Pressure 113/56 L 131/57 L Pulse Oximetry 100 100 98 06/11/18 09:24 06/11/18 10:00 06/11/18 10:11 Temperature Pulse Rate 95 H 81 91 H Respiratory Rate Blood Pressure 139/61 119/56 L Pulse Oximetry 99 99 06/11/18 11:00 06/11/18 12:00 06/11/18 12:15 Temperature 98.7 F Pulse Rate 96 H 84 Respiratory Rate 16 Blood Pressure 131/61 109/55 L Pulse Oximetry 97 99 100 06/11/18 12:25 06/11/18 13:00 06/11/18 14:00 Temperature Pulse Rate 90 90 93 H Respiratory Rate Blood Pressure 127/59 L 126/61 Pulse Oximetry 100 99 06/11/18 15:00 06/11/18 16:00 06/11/18 16:24 Temperature 98.3 F Pulse Rate 78 86 82 Respiratory Rate 26 H Blood Pressure 119/56 L 134/89 Pulse Oximetry 98 100 99 06/11/18 17:00 06/11/18 17:11 06/11/18 17:39 Temperature Pulse Rate 87 111 H Respiratory Rate Blood Pressure 171/71 H 181/77 H Pulse Oximetry 100 100 98 06/11/18 17:41 06/11/18 17:46 06/11/18 17:47 Temperature Pulse Rate 112 H 118 H 118 H Respiratory Rate Blood Pressure 182/85 H 219/98 H 214/95 H Pulse Oximetry 97 89 L 86 L 06/11/18 17:48 06/11/18 17:51 06/11/18 17:53 Temperature Pulse Rate 116 H 113 H 110 H Respiratory Rate Blood Pressure 213/92 H 206/91 H 210/93 H Pulse Oximetry 86 L 87 L 88 L 06/11/18 17:56 06/11/18 17:58 06/11/18 18:00 Temperature Pulse Rate 110 H 116 H 117 H Respiratory Rate Blood Pressure 179/60 H 188/82 H Pulse Oximetry 92 L 100 100 06/11/18 18:01 06/11/18 18:03 06/11/18 18:06 Temperature Pulse Rate 119 H 113 H 109 H Respiratory Rate Blood Pressure 171/75 H 157/62 H 155/67 H Pulse Oximetry 100 92 L 06/11/18 18:08 06/11/18 18:10 06/11/18 18:11 Temperature Pulse Rate 107 H 101 H Respiratory Rate 14 Blood Pressure 180/78 H 175/78 H Pulse Oximetry 06/11/18 18:13 06/11/18 18:16 06/11/18 18:18 Temperature Pulse Rate 96 H 93 H 91 H Respiratory Rate Blood Pressure 184/83 H 176/69 H 186/82 H Pulse Oximetry 06/11/18 18:21 06/11/18 18:23 06/11/18 18:26 Temperature Pulse Rate 92 H 94 H 92 H Respiratory Rate Blood Pressure 170/61 H 189/89 H 186/83 H Pulse Oximetry 100 100 100 06/11/18 18:28 06/11/18 18:33 06/11/18 18:36 Temperature Pulse Rate 91 H 96 H 90 Respiratory Rate Blood Pressure 177/74 H 160/111 H 170/127 H Pulse Oximetry 100 85 L 100 Intake & Output 06/11/18 06/11/18 06/12/18 06:59 18:59 06:59 Intake Total 1740 / 1740 300 / 300 Output Total 350 / 350 Balance 1390 / 1390 300 / 300 Weight 68.1 kg Intake: IV 1270 / 1270 300 / 300 Sodium Chloride 23.4% Inj 188 1047 / 1047 MEQ In NS Inj 1,000 ML @ 42 mls /hr IV.CONT .Q24H ALEXIS Rx#: [id number] Cerebyx Inj 200 MGPE In NS Inj 108 / 108 50 ML @ 216 mls/hr IV.SIG Q8HR ALEXIS Rx#:[id number] KCl 20 mEq Premix Inj 20 meq In 300 / 300 100 ml @ 50 mls/hr IV.SIG Q2H PRN Rx#:[id number] Keppra Inj 1,500 MG In NS Inj 115 / 115 100 ML @ 400 mls/hr IV.SIG Q12H ALEXIS Rx#:[id number] Tube Feeding 350 / 350 Tube Irrigant 120 / 120 Output: Urine Amount (Catheter) 250 / 250 Indwelling Urethral Catheter 250 / 250 Wound Drainage 100 / 100 # 1 Left Head 100 / 100 Other: Date of Last Bowel Movement 06/10/18 06/10/18 # Bowel Movements 1 # Incontinent Bowel Movements 1 Narrative: Patient is intubated. GENERAL: Averagely built elderly white female is intubated and sedated SKIN: Warm and dry. HEAD: Atraumatic. Normocephalic. EYES: Pupils equal and round. No scleral icterus. No injection or drainage. ENT: No nasal bleeding or discharge. Mucous membranes pink and moist. NECK: Trachea midline. No JVD. CARDIOVASCULAR: Regular rate and rhythm. RESPIRATORY: No accessory muscle use. Coarse wheezes bilaterally. Breath sounds equal bilaterally. GASTROINTESTINAL: Abdomen soft, non-tender, nondistended. Hepatic and splenic margins not palpable. MUSCULOSKELETAL: Extremities without clubbing, cyanosis, or edema. No obvious deformities. NEUROLOGICAL: Sedated PSYCHIATRIC: Cannot assess - Urinary Catheter Management Female External Cath placed during this visit: no Reason for continuing: Not indwelling catheter Indwelling Urethral Catheter Cath placed during this visit: yes Reason for continuing: Hourly intake/output Insertion date: 06/05/18 Insertion time: 08:30 Results - Labs CBC & Chem 7: 06/11/18 03:20 06/11/18 17:45 Laboratory Results - last 24 hr 06/11/18 06/11/18 06/11/18 03:20 03:20 03:20 WBC 15.0 H RBC 2.78 L Hgb 9.3 L Hct 27.5 L MCV 98.7 MCH 33.5 MCHC 34.0 RDW 14.2 Plt Count 240 MPV 7.6 Prelim Diff (Auto) Slide review pending Neut % (Auto) 89.4 H Lymph % (Auto) 5.8 L Foard % (Auto) 4.5 Eos % (Auto) 0.1 Baso % (Auto) 0.2 Neut # (Auto) 12.1 H Lymph # (Auto) 0.8 L Foard # (Auto) 0.6 Eos # (Auto) 0.0 Baso # (Auto) 0.0 WBC Differential Manual diff final Seg Neuts % (Manual) 82 H Band Neuts % (Manual) 12 H Lymphocytes % (Manual) 3 L Monocytes % (Manual) 2 Basophils % (Manual) 1 Abs Neuts (Manual) 14.1 H Differential Comment . Platelet Estimate Normal Platelet Morphology Clumped H Puncture Site Patient Temperature O2 Saturation ABG pH ABG pCO2 ABG pO2 ABG HCO3 ABG O2 Content ABG Base Excess ABG Methemoglobin Pedro [place] Test Hemoglobin Carboxyhemoglobin O2 Delivery Device Vent Setting Inspired O2 Critical Value Sodium 143 Potassium 3.1 L D Chloride 107 Carbon Dioxide 28.9 Anion Gap 7 BUN 15 Creatinine 0.37 L Estimated GFR Greater than 89 Random Glucose 172 H Calcium 7.7 L Phosphorus 1.6 L Magnesium 1.7 Total Bilirubin 0.2 Direct Bilirubin 0.1 Indirect Bilirubin 0.1 AST 124 H ALT 153 H Alkaline Phosphatase 123 H Total Protein 5.5 L Albumin 1.7 L Phenytoin 17.6 06/11/18 06/11/18 17:45 18:49 WBC RBC Hgb Hct MCV MCH MCHC RDW Plt Count MPV Prelim Diff (Auto) Neut % (Auto) Lymph % (Auto) Foard % (Auto) Eos % (Auto) Baso % (Auto) Neut # (Auto) Lymph # (Auto) Foard # (Auto) Eos # (Auto) Baso # (Auto) WBC Differential Seg Neuts % (Manual) Band Neuts % (Manual) Lymphocytes % (Manual) Monocytes % (Manual) Basophils % (Manual) Abs Neuts (Manual) Differential Comment Platelet Estimate Platelet Morphology Puncture Site Right radial Patient Temperature 98.6 O2 Saturation 97 ABG pH 7.52 H* ABG pCO2 32 L ABG pO2 117 ABG HCO3 26 ABG O2 Content 16.6 ABG Base Excess 3.2 H ABG Methemoglobin 1.2 [place] Test Present Hemoglobin 12.1 Carboxyhemoglobin 1.0 O2 Delivery Device Ventilator Vent Setting Prvc/ac Inspired O2 70 Critical Value Yes Sodium Potassium 3.8 Chloride Carbon Dioxide Anion Gap BUN Creatinine Estimated GFR Random Glucose Calcium Phosphorus Magnesium Total Bilirubin Direct Bilirubin Indirect Bilirubin AST ALT Alkaline Phosphatase Total Protein Albumin Phenytoin Microbiology 06/09/18 06:35 Sputum - Endotracheal Gram Stain - Final 06/09/18 06:35 Sputum - Endotracheal Sputum Culture - Final Heavy growth normal respiratory flores - Imaging Impressions Chest X-Ray 06/11/18 06:00 CONCLUSION: Basilar airspace disease similar to June 08. Endotracheal tube and nasogastric tube in good position. Chest X-Ray 06/11/18 18:00 CONCLUSION: 1. Endotracheal tube 1.6 cm above the claire. 2. Bibasilar consolidation. 3. Nodular density right upper lobe. Assessment and Plan - Assessment (1) COPD (chronic obstructive pulmonary disease) Code(s): J44.9 - Chronic obstructive pulmonary disease, unspecified Status: Acute (2) Right upper lobe pulmonary nodule Code(s): R91.1 - Solitary pulmonary nodule Status: Acute (3) Intraventricular hemorrhage, nontraumatic Code(s): I61.5 - Nontraumatic intracerebral hemorrhage, intraventricular Status: Acute (4) Hypertensive emergency Code(s): I16.1 - Hypertensive emergency Status: Acute (5) Metabolic encephalopathy Code(s): G93.41 - Metabolic encephalopathy Status: Acute (6) Altered mental status Code(s): R41.82 - Altered mental status, unspecified Status: Acute (7) History of peripheral arterial disease Code(s): Z86.79 - Personal history of other diseases of the circulatory system Status: Chronic (8) History of hypertension Code(s): Z86.79 - Personal history of other diseases of the circulatory system Status: Chronic (9) Cessation of tobacco use in previous 12 months Code(s): Z87.891 - Personal history of nicotine dependence Status: Chronic - Plan 1 continue to do CPAP 5 x 12 trials daily, and FiO2 30% 2. Continue DuoNeb nebs 4 times daily. 3. Chest x-ray CBC BMP in a.m. 4. Workup for lung mass when clinically stable 5. Check respiratory parameters . 6 Symbicort 160 about 4.5 mcg 1 puff twice daily 7. Solu-Medrol 20 mg IV twice daily 8. Controlled seizures with fosphenytoin and Keppra (6) Altered mental status Qualifiers: Altered mental status type: unspecified Qualified Code(s): R41.82 - Altered mental status, unspecified
[2018-06-12] MEDS: Artificial Tears Opth Drops 15 ML Bottle EACH EYE SCH ×3 (04:31→21:16)
--- NOTE | 2018-06-12 05:12 | XR ---
EXAM DATE: 06/12/2018 4:24 AM EST AGE/SEX: 78 years / Female INDICATIONS: Respiratory failure. CLINICAL DATA: This is the patient's subsequent encounter. Patient reports that signs and symptoms h ave been present for 2 weeks and indicates a pain score of Nonresponsive. MEDICAL/SURGICAL HISTORY: Hypertension. Arthritis. Peripheral artery disease. Coronary artery stent. COMPARISON: C, CHEST 1V SINGLE AP, 06/11/2018. . FINDINGS: Endotracheal tube in good position. NG traversing the esophagus. Bilateral mostly basilar airspace co nsolidation with small effusions. No pneumothorax. CONCLUSION: Endotracheal tube and nasogastric tube in good position. Basilar airspace disease not significantly c hanged from 11 June. Electronically signed by: Bernabe Alvarez MD Board Certified Radiologist 06/12/2018 5:11 AM EST
[2018-06-12 05:52] LABS: Anion Gap 9 meq/L (5-15); Blood Urea Nitrogen 13 mg/dL (7-18); Carbon Dioxide 26.2 meq/L (21.0-32.0); Chloride 106 meq/L (98-107); Glomerular Filtration Rate Greater Than 89 mL/min (>89); Glucose,Random 99 mg/dL (74-106); Magnesium 2.6 mg/dL (1.5-2.5); Phenytoin (Dilantin) 18.8 mcg/mL (10.0-20.0); Phosphorus 1.4 mg/dL (2.5-4.9); Potassium 3.8 meq/L (3.5-5.1); Sodium 141 meq/L (136-145)
[2018-06-12] MEDS: Fosphenytoin Inj 200 MGPE in Sodium Chlor 0.9% Inj 50 ML IV.SIG SCH ×3 (07:45→21:11)
--- NOTE | 2018-06-12 08:29 | CT ---
EXAM DATE: 06/12/2018 8:21 AM EST AGE/SEX: 78 years / Female INDICATIONS: Assess hydrocephalus,ICH CLINICAL DATA: This is the patient's subsequent encounter. Patient reports that signs and symptoms h ave been present for 4 - 6 days and indicates a pain score of Nonresponsive. MEDICAL/SURGICAL HISTORY: Cardiovascular disease. None. RADIATION DOSE: 33.15 CTDI (mGy) COMPARISON: [facility], CT HEAD W/O CONTRAST, 06/09/2018. . TECHNIQUE: CT of the head without contrast. Using automated exposure control and adjustment of the mA and/or kV according to patient size, radiation dose was kept as low as reasonably achievable to ob tain optimal diagnostic quality images. DICOM format image data is available electronically for revi ew and comparison. FINDINGS: Stable postsurgical features of left frontoparietal craniotomy with stable ventriculostomy catheter t erminating in the mid frontal ventricles. Improved pneumocephalus with evolving intraventricular bloo d products primarily now in the left posterior horn. Ventricles are otherwise stable without evidence for hydrocephalus. There is no significant midline shift. Continued evolution of encephalomalacia in the left frontal high convexities. Basilar cisterns are intact. Brainstem and cerebellum are intact. Remainder of the exam is unchanged. CONCLUSION: 1. 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 2. Improved pneumocephalus and intraventricular blood products. 3. No intercurrent acute hemorrhage, midline shift or hydrocephalus. . Electronically signed by: Nick Gold MD Board Certified Radiologist 06/12/2018 8:28 AM EST
[2018-06-12] MEDS: Metoprolol Tartrate 50 MG Tablet PO SCH ×2 (09:10→21:08)
[2018-06-12] MEDS: MethylPREDNISolone Sod Succinate Inj 40 MG/ML Vial IV.PUSH SCH ×2 (09:11→21:08)
[2018-06-12] MEDS: Sodium Chloride 1 GM Tablet PO SCH ×2 (09:11→21:08)
[2018-06-12] MEDS: Enoxaparin Inj 40 MG/0.4 ML Syringe SQ SCH (09:11)
[2018-06-12] MEDS: Senna/Docusate Sodium 8.6/50 MG Tablet PO SCH ×2 (09:11→21:09)
[2018-06-12] MEDS: Budesonide-Formoterol 160/4.5 MCG 6 GM Inhaler INH SCH ×2 (09:12→21:15)
[2018-06-12 09:22] LABS: Baso # (Auto) 0.1 th/mm3 (0.0-0.2); Baso % (Auto) 0.7 % (0.0-2.0); Eos # (Auto) 0.1 th/mm3 (0.0-0.4); Eos % (Auto) 0.8 % (0.0-4.0); Hematocrit 31.6 % (35.0-46.0); Hemoglobin 10.4 gm/dL (11.6-15.3); Lymph # (Auto) 1.6 th/mm3 (1.0-4.8); Lymph % (Auto) 9.1 % (9.0-44.0); Mean Corpuscular HGB Conc 32.9 % (32.0-36.0); Mean Corpuscular Hemoglobin 33.7 pg (27.0-34.0); Mean Corpuscular Volume 102.5 fL (80.0-100.0); Mean Platelet Volume 8.7 fL (7.0-11.0); Mono # (Auto) 0.7 th/mm3 (0.0-0.9); Mono % (Auto) 3.8 % (0.0-8.0); Neut % (Auto) 85.6 % (16.0-70.0); Red Blood Count 3.08 mil/mm3 (4.00-5.30); Red Cell Distribution Width 14.6 % (11.6-17.2)
[2018-06-12 09:23] LABS: Platelet Count 266 th/mm3 (150-450); White Blood Count 14.1 th/mm3 (4.0-11.0)
[2018-06-12] MEDS: Potassium Phosphate 500 MG Soluble Tablet PO PRN ×2 (09:48→16:36)
[2018-06-12 10:22] LABS: Lymphocytes 9 % (9-44); Metamyelocytes 2 % (0-1); Monocytes 3 % (0-8); Myelocytes 2 % (0-0); Promyelocyte 1 % (0-0)
[2018-06-12 10:23] LABS: Platelet Estimate Normal (Normal); Platelet Morphology Clumped (Normal); Toxic Granulation 1+
--- NOTE | 2018-06-12 11:10 | P.PNNS ---
Subjective Interval history: intubated, awake, alert, mouthing words. Physical Exam Vital signs: Vital Signs 06/11/18 12:00 06/11/18 12:15 06/11/18 12:25 Temperature 98.7 F Pulse Rate 84 90 Respiratory Rate 16 Blood Pressure 109/55 L Pulse Oximetry 99 100 06/11/18 13:00 06/11/18 14:00 06/11/18 15:00 Temperature Pulse Rate 90 93 H 78 Respiratory Rate Blood Pressure 127/59 L 126/61 119/56 L Pulse Oximetry 100 99 98 06/11/18 16:00 06/11/18 16:24 06/11/18 17:00 Temperature 98.3 F Pulse Rate 86 82 87 Respiratory Rate 26 H Blood Pressure 134/89 171/71 H Pulse Oximetry 100 99 100 06/11/18 17:11 06/11/18 17:39 06/11/18 17:41 Temperature Pulse Rate 111 H 112 H Respiratory Rate Blood Pressure 181/77 H 182/85 H Pulse Oximetry 100 98 97 06/11/18 17:46 06/11/18 17:47 06/11/18 17:48 Temperature Pulse Rate 118 H 118 H 116 H Respiratory Rate Blood Pressure 219/98 H 214/95 H 213/92 H Pulse Oximetry 89 L 86 L 86 L 06/11/18 17:51 06/11/18 17:53 06/11/18 17:56 Temperature Pulse Rate 113 H 110 H 110 H Respiratory Rate Blood Pressure 206/91 H 210/93 H 179/60 H Pulse Oximetry 87 L 88 L 92 L 06/11/18 17:58 06/11/18 18:00 06/11/18 18:01 Temperature Pulse Rate 116 H 117 H 119 H Respiratory Rate Blood Pressure 188/82 H 171/75 H Pulse Oximetry 100 100 100 06/11/18 18:03 06/11/18 18:06 06/11/18 18:08 Temperature Pulse Rate 113 H 109 H 107 H Respiratory Rate Blood Pressure 157/62 H 155/67 H 180/78 H Pulse Oximetry 92 L 06/11/18 18:10 06/11/18 18:11 06/11/18 18:13 Temperature Pulse Rate 101 H 96 H Respiratory Rate 14 Blood Pressure 175/78 H 184/83 H Pulse Oximetry 06/11/18 18:16 06/11/18 18:18 06/11/18 18:21 Temperature Pulse Rate 93 H 91 H 92 H Respiratory Rate Blood Pressure 176/69 H 186/82 H 170/61 H Pulse Oximetry 100 06/11/18 18:23 06/11/18 18:26 06/11/18 18:28 Temperature Pulse Rate 94 H 92 H 91 H Respiratory Rate Blood Pressure 189/89 H 186/83 H 177/74 H Pulse Oximetry 100 100 100 06/11/18 18:33 06/11/18 18:36 06/11/18 19:00 Temperature Pulse Rate 96 H 90 96 H Respiratory Rate Blood Pressure 160/111 H 170/127 H Pulse Oximetry 85 L 100 100 06/11/18 19:11 06/11/18 19:30 06/11/18 20:00 Temperature Pulse Rate 108 H 103 H 110 H Respiratory Rate 17 Blood Pressure 130/82 108/50 L 118/58 L Pulse Oximetry 100 100 100 06/11/18 20:10 06/11/18 20:30 06/11/18 21:00 Temperature 98.7 F Pulse Rate 104 H 114 H 111 H Respiratory Rate 16 Blood Pressure 125/57 L 126/59 L Pulse Oximetry 92 L 06/11/18 21:30 06/11/18 22:00 06/11/18 22:30 Temperature Pulse Rate 117 H 113 H 111 H Respiratory Rate Blood Pressure 136/59 L 130/60 132/53 L Pulse Oximetry 96 90 L 90 L 06/11/18 23:00 06/11/18 23:30 06/12/18 00:00 Temperature 99.1 F Pulse Rate 120 H 108 H 98 H Respiratory Rate Blood Pressure 110/51 L 110/52 L 112/54 L Pulse Oximetry 98 97 98 06/12/18 00:07 06/12/18 00:30 06/12/18 01:00 Temperature Pulse Rate 95 H 101 H Respiratory Rate 14 Blood Pressure 114/55 L 115/54 L Pulse Oximetry 95 97 100 06/12/18 01:30 06/12/18 02:00 06/12/18 02:30 Temperature Pulse Rate 97 H 94 H 91 H Respiratory Rate Blood Pressure 119/56 L 109/52 L 118/58 L Pulse Oximetry 99 99 100 06/12/18 03:00 06/12/18 03:30 06/12/18 03:55 Temperature Pulse Rate 87 95 H 95 H Respiratory Rate 16 Blood Pressure 120/58 L 123/58 L Pulse Oximetry 100 99 06/12/18 04:00 06/12/18 04:25 06/12/18 04:30 Temperature 98.9 F Pulse Rate 90 94 H Respiratory Rate 15 Blood Pressure 121/58 L 127/58 L Pulse Oximetry 100 97 100 06/12/18 05:00 06/12/18 05:30 06/12/18 06:00 Temperature Pulse Rate 91 H 92 H 87 Respiratory Rate Blood Pressure 126/59 L 119/56 L 125/56 L Pulse Oximetry 99 98 06/12/18 06:30 06/12/18 07:00 06/12/18 08:00 Temperature 98.7 F Pulse Rate 83 84 89 Respiratory Rate 12 12 Blood Pressure 111/53 L 116/56 L 122/60 Pulse Oximetry 99 96 97 06/12/18 09:00 06/12/18 09:09 06/12/18 09:10 Temperature Pulse Rate 97 H 96 H Respiratory Rate 13 19 Blood Pressure 119/60 Pulse Oximetry 100 100 100 Intake & Output 06/11/18 06/12/18 06/12/18 18:59 06:59 18:59 Intake Total 469 / 469 54 / 54 Output Total 570 / 570 300 / 300 41 / 41 Balance -101 / -101 -246 / -246 - / -41 Weight 69.5 kg Intake: IV 469 / 469 54 / 54 Cerebyx Inj 200 MGPE In NS Inj 54 / 54 54 / 54 50 ML @ 216 mls/hr IV.SIG Q8HR [facility]LEXIS Rx#:[id number] KCl 20 mEq Premix Inj 20 meq In 300 / 300 100 ml @ 50 mls/hr IV.SIG Q2H PRN Rx#:[id number] Keppra Inj 1,500 MG In NS Inj 115 / 115 100 ML @ 400 mls/hr IV.SIG Q12H ALEXIS Rx#:[id number] Output: Urine Amount (Catheter) 450 / 450 300 / 300 Indwelling Urethral Catheter 450 / 450 300 / 300 Intracranial Drainage 120 / 120 41 / 41 Ventricle Left Temporoparietal 120 / 120 41 / 41 Other: Date of Last Bowel Movement 06/11/18 06/11/18 06/11/18 # Bowel Movements 1 Narrative: Patient is intubated. She is awake, alert, nodding appropriately and trying to mouth words. follows commands x 4 extremities, weaker on the right. pupils are equal. wound with dressing clean dry and intact. Ventriculostomy drain in place at 5 mmHg. ICPs controlled. CSF clearing up. - Urinary Catheter Management Female External Cath placed during this visit: no Reason for continuing: Not indwelling catheter Indwelling Urethral Catheter Cath placed during this visit: yes Reason for continuing: Hourly intake/output Insertion date: 06/05/18 Insertion time: 08:30 Assessment and Plan - Plan 78 yo female with vague constellation of symptoms GCS-[address] shows 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 hemorrhagic mass Will follow with you 05/30/18: cont neuro checks in ICU Dr. 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 at midnight on Monday night into Monday Minimize sedating meds, etc. 06/03/18: Appears to be a bit more encephalopathic today, possible contribution of hospital delirium versus her mild hydrocephalus, though favor delirium since her level of alertness remains stable Dr. 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 at midnight tonight Continue to minimize sedating meds, etc. 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 Palacios 06/06/18: POD #1. pt had seizure last night requiring intubation. She has been started on Keppra for seizures. On exam she opens eyes and follows commands. Postoperative MRI Brain w/wo contrast has been ordered and pending. Obtain EEG to assess seizures. Continue ventriculostomy draining, add ICP monitoring. Start sq lovenox for dvt prophylaxis. Will follow. 06/07/18: POD #2. patient neurologically stable, opens eyes and follows commands. Postoperative MRI Brain reviewed by neurosurgery team. Spot EEG reports no ongoing seizures, with high amplitude sharp waves on left?breach rhythm. Critical care plans on extubation today. Continue ventriculostomy draining at 10 mmHg. Final pathology pending. Neurology following for seizure management. Will follow. 06/08/18: POD #3. patient neurologically stable, opens eyes and follows commands. Ventriculostomy draining well with controlled ICPs, will continue at 10mmHg. Pathology still pending. cont seizure management per Neurology. dw critical care. will follow. 06/09/2018 POD#4 Remains Neurologically stable, follows commands Stop sedation wean ventilator to CPAP 5 x 12 and FiO2 30% Continue DuoNeb nebs 4 times daily. Check respiratory parameters and consider extubation Agree with Symbicort 160 about 4.5 mcg 1 puff twice daily and Solu-Medrol 40 mg IV twice daily Continue EVD Would maintain SBP 140-160 to improve CPP. 06/10/2018 POD#5 Seizure yesterday, and last night, have increased Cerebyx and Keppra D/C'ed Barbs would prefer to maintain on 2 agents and high therapeutic levels of Cerebyx, usually best with brain tumors Free Dilantin levels not easily obtainable here. Lets keep level around 20 with standard level remains Neurologically stable wean ventilator to CPAP 5 x 12 and FiO2 30% and if OK, may extubate from Neurosurgical standpoint. 06/11/18 POD #6 seizures controlled overnight, will continue Cerebyx 200 tid and Keppra 1500 bid. Dilantin levels 17.6 today continue critical care - vent weaning - CPAP trials cont EVD draining at 5 mmHg final pathology still pending will follow 06/12/18 POD #7 pt failed extubation yesterday, reintubated- critical care managing repeat EEG 06/11/18 abnormal with sharp activities left hemisphere dilantin levels 18.8 this morning cont current anticonvulsants, will repeat EEG today obtained follow up CT Brain this morning which was reviewed by Dr. Perdue, EVD raised to 20 mmHg neuro exam today appears better final pathology still pending
[2018-06-12] MEDS: Lisinopril 20 MG Tablet PO SCH (11:13)
[2018-06-12] MEDS: amLODIPine 5 MG Tablet PO SCH (11:13)
[2018-06-12] MEDS: Pantoprazole Inj 40 MG Vial IV.PUSH SCH (11:31)
[2018-06-12] MEDS: levETIRAcetam Inj 1,500 MG in Sodium Chlor 0.9% Inj 100 ML IV.SIG SCH ×2 (12:25→23:26)
--- NOTE | 2018-06-12 16:11 | P.PNCC ---
Subjective Subjective Remarks/Hospital Course: Patient is a 78-year-old female with past medical history significant for hypertension, peripheral arterial disease, history of vascular intervention/ stenting, arthritis who presented to the [facility] with mostly nonspecific complaints of memory loss and hallucinations for 1 week and worsening tremors of the right arm. Further workup in the emergency department showed subacute intraventricular hemorrhage into the left lateral ventricle and a focal thrombus that may be obstructing foramina of [place]. There was enlargement of the left lateral ventricle compared to the prior MRI. Also trace blood in the occipital horn of left lateral ventricle. With evidence of intraventricular hemorrhage patient was transferred emergently to [facility] for neurosurgery consult. I evaluated the patient after arrival to the ICU. Patient is profoundly hypertensive systolic blood pressure 190-200. IV labetalol 20 mg IV push given followed by Cardene infusion started. On exam patient did not appear to be in distress. No definite focal deficit however patient is oriented only to person. Reviewed CT scan with neurosurgery Dr. Palacios. On his review CT shows 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 hemorrhagic mass at foramen of [place] with asymmetric left sided ventricular dilatation. Stat MRI of the brain with and without contrast ordered. Started on Cardene infusion with target systolic blood pressure less than 140 05/30/18: MRI brain showed 2.3 x 1.7 cm mass within the body of the left lateral ventricle measuring 2.3 x 1.7 cm left lateral ventricle is prominent may be related to production of CSF from this mass. 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 Additional mass in the cerebellopontine angle on the left compressing upon the brainstem measuring 1.8 x 1.4 cm. Slightly more agitated and confused today. Partly secondary to mass partly could be alcohol withdrawal. Placed on as needed Haldol 05/31: Patient remains sedated received Ativan a few hours before. Currently for that reason Precedex is being held. Wakes up follows some commands. Oriented to person only. Plan for craniotomy and resection of intraventricular mass scheduled tentatively for Monday. Ct chest: 1.6 x 1.1 cm spiculated RUL nodule concerning for metastasis or primary lung malignancy. 1.1 x 1.4 cm soft tissue density inferior lateral margin of the right breast implant ?focal disruption vs breast mass. CT abdomen pelvis: 1.3 cm left adrenal mass concerning for metastatic disease given findings of brain and lung mass. 1.6 cm indeterminate low-density lesion in the posterior right lobe of the liver with numerous additional subcentimeter hypodense lesions which are too small to fully characterize. Metastatic disease cannot be entirely excluded, possibly cysts. 06/01: Remains confused slightly agitated remains on Precedex. CT angiogram yesterday of the brain showed previously demonstrated intraventricular mass however no cerebellopontine angle mass. WBC count elevated to 19.1 no fever. Will check UA-previously ordered UA had not been done. Check blood cultures, chest x-ray is clear. Continue to hold Plavix 06/02: Plan is for resection of brain mass on Monday. Patient continues breathing comfortably. 06/03: Ready for OR. Labs are in order. INR 1.1. Plavix effect noted on . 06/04: Coagulation profile normal. Patient scheduled for surgery tomorrow. No new complaints. 06/05: Patient seen in PACU shortly after surgery. Brief generalized seizure terminated with Ativan 1 mg. Patient loaded with Cerebyx 1 g. Neurologic exam nonfocal at this time. Pupils pinpoint. Required reintubation due to somnolence. 06/06: T-max 100.8. Currently afebrile. Patient arousable on the ventilator. Hypotensive requiring 1 L bolus normal saline. MRI brain pending. EEG ongoing. 06/07: T-max 100.6. Currently 99.8. MRI brain showed postsurgical change with no increased hemorrhage noted. Replacing potassium, phosphorus and magnesium currently. Dexmedetomidine drip is currently off. Noted some breech with EEG yesterday. Dilantin level therapeutic. 06/08: All sedation off for about 24 hours. She will open her eyes to stimulation. Withdraws 4 limbs to stimulation but right upper extremity appears weaker. Dilantin level is therapeutic and no more seizures. We will attempt to extubate when she can control her airway. Presently too somnolent. 06/09: Possibly slightly more arousable than when I saw her for 8 hours ago. Will reflexively squeeze left upper extremity. Not currently following commands with right upper extremity for me. Tube feeding today increase antihypertensives to wean off clevidipine drip. 06/10: Currently on fosphenytoin 200 mg twice daily and levetiracetam 1500 mg twice daily. Failed CPAP trials x2 today secondary to apnea. Will reattempt this afternoon. Arousable and opens eyes. Spontaneous moves left upper extremity but not following commands. We check EEG today. 06/11: Resting in bed. No seizure activity more awake and following commands. Will attempt extubation today at 1700 hrs. Subjective 06/12: Resting in bed. More arousable and interactive today. No seizure activity noted. Failed extubation after 1 hour attempt yesterday. We will CPAP again today and reattempt likely tomorrow. Started on piperacillin/ tazobactam for gram-negative rupinder sputum. Objective Vital Signs / I&O: Vital Signs 06/11/18 16:24 06/11/18 17:00 06/11/18 17:11 Temperature Pulse Rate 82 87 Respiratory Rate 26 H Blood Pressure 171/71 H Pulse Oximetry 99 100 100 06/11/18 17:39 06/11/18 17:41 06/11/18 17:46 Temperature Pulse Rate 111 H 112 H 118 H Respiratory Rate Blood Pressure 181/77 H 182/85 H 219/98 H Pulse Oximetry 98 97 89 L 06/11/18 17:47 06/11/18 17:48 06/11/18 17:51 Temperature Pulse Rate 118 H 116 H 113 H Respiratory Rate Blood Pressure 214/95 H 213/92 H 206/91 H Pulse Oximetry 86 L 86 L 87 L 06/11/18 17:53 06/11/18 17:56 06/11/18 17:58 Temperature Pulse Rate 110 H 110 H 116 H Respiratory Rate Blood Pressure 210/93 H 179/60 H 188/82 H Pulse Oximetry 88 L 92 L 100 06/11/18 18:00 06/11/18 18:01 06/11/18 18:03 Temperature Pulse Rate 117 H 119 H 113 H Respiratory Rate Blood Pressure 171/75 H 157/62 H Pulse Oximetry 100 100 92 L 06/11/18 18:06 06/11/18 18:08 06/11/18 18:10 Temperature Pulse Rate 109 H 107 H Respiratory Rate 14 Blood Pressure 155/67 H 180/78 H Pulse Oximetry 06/11/18 18:11 06/11/18 18:13 06/11/18 18:16 Temperature Pulse Rate 101 H 96 H 93 H Respiratory Rate Blood Pressure 175/78 H 184/83 H 176/69 H Pulse Oximetry 06/11/18 18:18 06/11/18 18:21 06/11/18 18:23 Temperature Pulse Rate 91 H 92 H 94 H Respiratory Rate Blood Pressure 186/82 H 170/61 H 189/89 H Pulse Oximetry 100 100 06/11/18 18:26 06/11/18 18:28 06/11/18 18:33 Temperature Pulse Rate 92 H 91 H 96 H Respiratory Rate Blood Pressure 186/83 H 177/74 H 160/111 H Pulse Oximetry 100 100 85 L 06/11/18 18:36 06/11/18 19:00 06/11/18 19:11 Temperature Pulse Rate 90 96 H 108 H Respiratory Rate Blood Pressure 170/127 H 130/82 Pulse Oximetry 100 100 100 06/11/18 19:30 06/11/18 20:00 06/11/18 20:10 Temperature Pulse Rate 103 H 110 H 104 H Respiratory Rate 17 16 Blood Pressure 108/50 L 118/58 L Pulse Oximetry 100 100 06/11/18 20:30 06/11/18 21:00 06/11/18 21:30 Temperature 98.7 F Pulse Rate 114 H 111 H 117 H Respiratory Rate Blood Pressure 125/57 L 126/59 L 136/59 L Pulse Oximetry 92 L 96 06/11/18 22:00 06/11/18 22:30 06/11/18 23:00 Temperature Pulse Rate 113 H 111 H 120 H Respiratory Rate Blood Pressure 130/60 132/53 L 110/51 L Pulse Oximetry 90 L 90 L 98 06/11/18 23:30 06/12/18 00:00 06/12/18 00:07 Temperature 99.1 F Pulse Rate 108 H 98 H Respiratory Rate 14 Blood Pressure 110/52 L 112/54 L Pulse Oximetry 97 98 95 06/12/18 00:30 06/12/18 01:00 06/12/18 01:30 Temperature Pulse Rate 95 H 101 H 97 H Respiratory Rate Blood Pressure 114/55 L 115/54 L 119/56 L Pulse Oximetry 97 100 99 06/12/18 02:00 06/12/18 02:30 06/12/18 03:00 Temperature Pulse Rate 94 H 91 H 87 Respiratory Rate Blood Pressure 109/52 L 118/58 L 120/58 L Pulse Oximetry 99 100 100 06/12/18 03:30 06/12/18 03:55 06/12/18 04:00 Temperature 98.9 F Pulse Rate 95 H 95 H 90 Respiratory Rate 16 Blood Pressure 123/58 L 121/58 L Pulse Oximetry 99 100 06/12/18 04:25 06/12/18 04:30 06/12/18 05:00 Temperature Pulse Rate 94 H 91 H Respiratory Rate 15 Blood Pressure 127/58 L 126/59 L Pulse Oximetry 97 100 99 06/12/18 05:30 06/12/18 06:00 06/12/18 06:30 Temperature Pulse Rate 92 H 87 83 Respiratory Rate Blood Pressure 119/56 L 125/56 L 111/53 L Pulse Oximetry 98 99 06/12/18 07:00 06/12/18 08:00 06/12/18 09:00 Temperature 98.7 F Pulse Rate 84 89 97 H Respiratory Rate 12 12 13 Blood Pressure 116/56 L 122/60 119/60 Pulse Oximetry 96 97 100 06/12/18 09:09 06/12/18 09:10 06/12/18 10:00 Temperature Pulse Rate 96 H 86 Respiratory Rate 19 12 Blood Pressure 117/59 L Pulse Oximetry 100 100 100 06/12/18 11:00 06/12/18 11:55 06/12/18 12:00 Temperature 99.2 F Pulse Rate 85 86 Respiratory Rate 13 16 12 Blood Pressure 98/56 L 158/75 H Pulse Oximetry 97 99 100 06/12/18 12:31 06/12/18 13:00 06/12/18 14:00 Temperature Pulse Rate 89 92 H 92 H Respiratory Rate 18 21 Blood Pressure 110/56 L 109/53 L 123/56 L Pulse Oximetry 97 98 97 06/12/18 15:00 Temperature Pulse Rate 93 H Respiratory Rate 20 Blood Pressure 119/77 Pulse Oximetry 97 Intake & Output 06/11/18 06/12/18 06/12/18 18:59 06:59 18:59 Intake Total 469 / 469 169 / 169 223 / 223 Output Total 570 / 570 300 / 300 41 / 41 Balance -101 / -101 -131 / -131 182 / 182 Weight 69.5 kg Intake: IV 469 / 469 169 / 169 223 / 223 Cerebyx Inj 200 MGPE In NS Inj 54 / 54 54 / 54 108 / 108 50 ML @ 216 mls/hr IV.SIG Q8HR [facility] Rx#:[id number] KCl 20 mEq Premix Inj 20 meq In 300 / 300 100 ml @ 50 mls/hr IV.SIG Q2H PRN Rx#:[id number] Keppra Inj 1,500 MG In NS Inj 115 / 115 115 / 115 115 / 115 100 ML @ 400 mls/hr IV.SIG Q12H [facility] Rx#:[id number] Output: Urine Amount (Catheter) 450 / 450 300 / 300 Indwelling Urethral Catheter 450 / 450 300 / 300 Intracranial Drainage 120 / 120 41 / 41 Ventricle Left Temporoparietal 120 / 120 41 / 41 Other: Date of Last Bowel Movement 06/11/18 06/11/18 06/11/18 # Bowel Movements 1 Result Diagrams: 06/12/18 08:51 06/12/18 03:53 Other Results: Microbiology 06/11/18 18:40 Sputum - Endotracheal Gram Stain - Final 06/11/18 18:40 Sputum - Endotracheal Sputum Culture - Preliminary gram negative rods 06/09/18 06:35 Sputum - Endotracheal Gram Stain - Final 06/09/18 06:35 Sputum - Endotracheal Sputum Culture - Final Heavy growth normal respiratory flores 06/01/18 10:21 Blood - Peripheral Aerobic Blood Culture - Final No growth in 5 days 06/01/18 10:21 Blood - Peripheral Anaerobic Blood Culture - Final No growth in 5 days 06/01/18 10:16 Blood - Peripheral Aerobic Blood Culture - Final No growth in 5 days 06/01/18 10:16 Blood - Peripheral Anaerobic Blood Culture - Final No growth in 5 days Imaging: Chest X-Ray 05/29/18 15:37 CONCLUSION: Chronic interstitial changes. No acute abnormality. Head MRI 05/29/18 15:41 CONCLUSION: 1. There is a 2.3 x 1.7 cm mass within the body of the left lateral ventricle measuring 2.3 x 1.7 cm. The left lateral ventricle is prominent may be related to production of CSF from this mass. 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 This mass may have hemorrhaged causing the blood layering in the lateral ventricles. 2. There is also a mass in the cerebellopontine angle on the left compressing upon the brainstem measuring 1.8 x 1.4 cm. 3. Chronic ischemic small vessel vasculopathy. Abdomen/Pelvis CT 05/30/18 00:00 CONCLUSION: 1. 1.3 cm left adrenal mass. Findings are concerning for metastatic disease given findings of brain metastasis and lung mass. 2. 1.6 cm indeterminate low-density lesion in the posterior right lobe of the liver with numerous additional subcentimeter hypodense lesions which are too small to fully characterize. Although metastatic disease cannot be entirely excluded, suspect these reflect cysts. 3. Colonic diverticulosis without evidence for diverticulitis. 4. Otherwise, no additional definitive evidence for metastatic disease to the abdomen or pelvis. Chest CT 05/30/18 00:00 CONCLUSION: 1. 1.6 x 1.1 cm spiculated right upper lobe lung nodule concerning for metastasis or primary lung malignancy. 2. Additional 3 mm subpleural nodules in the superior segment of the left lower lobe are nonspecific. 3. Mild atelectasis/scarring at the right lung base with more prominent airspace consolidation at the left lung base. 4. 1.1 x 1.4 cm soft tissue density abnormality emanating from the inferior lateral margin of the right breast implant which may reflect a focal disruption. However, cannot exclude an adjacent breast mass. Correlation with patient's history and prior breast imaging is recommended. Head CTA 05/31/18 00:00 CONCLUSION: 1. There is no evidence for intracranial aneurysm or stenosis. 2. Intraventricular mass as previously described. 3. There is no evidence for mass at the cerebellopontine angle. The finding on the recent MRI was likely related to pulsation artifact in this region. . Chest X-Ray 06/01/18 00:00 CONCLUSION: No acute cardiopulmonary disease identified. Chest X-Ray 06/05/18 00:00 CONCLUSION: 1. Right upper lobe nodule. 2. Bibasilar infiltrates. 3. Adequate placement of endotracheal tube. Head MRI 06/06/18 00:00 CONCLUSION: 1. 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 2. Intraventricular blood as described. Left lateral ventricle is slightly smaller. 3. Air and small amount of acute blood in the subdural spaces of both convexities. There is also small subdural blood in between the leaves of the falx. 4. Roughly 5 mm of rightward midline shift, improved. Chest X-Ray 06/08/18 06:00 CONCLUSION: Tracheostomy tube and nasogastric tube position. Lungs are grossly clear. Head CT 06/09/18 14:55 CONCLUSION: 1. Postoperative findings with ventriculostomy catheter in place, pneumocephalus, and moderate amount of intraventricular blood in the left occipital horn and minimal blood in the right occipital horn. 2. Ventricular size is similar to preoperative CT. No evidence of midline shift or mass effect. . Chest X-Ray 06/11/18 06:00 CONCLUSION: Basilar airspace disease similar to June 08. Endotracheal tube and nasogastric tube in good position. Chest X-Ray 06/11/18 18:00 CONCLUSION: 1. Endotracheal tube 1.6 cm above the claire. 2. Bibasilar consolidation. 3. Nodular density right upper lobe. Chest X-Ray 06/12/18 06:00 CONCLUSION: Endotracheal tube and nasogastric tube in good position. Basilar airspace disease not significantly changed from [address] 06/12/18 07:21 CONCLUSION: 1. 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 2. Improved pneumocephalus and intraventricular blood products. 3. No intercurrent acute hemorrhage, midline shift or hydrocephalus. . Objective Remarks: GENERAL: This is a 78-year-old female currently orotracheally intubated SKIN: Warm and dry. HEAD: EVD in place. EYES: Pupils equal and round. About 2 mm bilaterally and reactive, no scleral icterus. No injection or drainage. ENT: No nasal bleeding or discharge. Mucous membranes pink and moist. NECK: Trachea midline. Orotracheal intubation CARDIOVASCULAR: Regular rate and rhythm. S1, S2 no S4. No murmur RESPIRATORY: Normal excursions on mechanical ventilation. Clear to auscultation. Breath sounds equal bilaterally. GASTROINTESTINAL: Abdomen soft, non-tender, nondistended. No guarding, bowel sounds active. MUSCULOSKELETAL: Extremities with 1 bilateral upper and lower extremity edema. Warm, well-perfused NEUROLOGICAL: Positive cough and gag. Pupils reactive. Arousable on the ventilator and opens eyes moves all left upper, left lower and right lower extremity. Very difficult to the evaluate right upper extremity. GENERAL: SKIN: Warm and dry. HEAD: Atraumatic. Normocephalic. EYES: Pupils equal and round. No scleral icterus. No injection or drainage. ENT: No nasal bleeding or discharge. Mucous membranes pink and moist. NECK: Trachea midline. No JVD. CARDIOVASCULAR: Regular rate and rhythm. RESPIRATORY: No accessory muscle use. Clear to auscultation. Breath sounds equal bilaterally. GASTROINTESTINAL: Abdomen soft, non-tender, nondistended. Hepatic and splenic margins not palpable. MUSCULOSKELETAL: Extremities without clubbing, cyanosis, or edema. No obvious deformities. NEUROLOGICAL: Awake and alert. No obvious cranial nerve deficits. Motor grossly within normal limits. Five out of 5 muscle strength in the arms and legs. Normal speech. PSYCHIATRIC: Appropriate mood and affect; insight and judgment normal. Assessment and Plan - Problem List (1) Intraventricular hemorrhage, nontraumatic Code(s): I61.5 - Nontraumatic intracerebral hemorrhage, intraventricular Status: Acute (2) Hypertensive emergency Code(s): I16.1 - Hypertensive emergency Status: Acute (3) Metabolic encephalopathy Code(s): G93.41 - Metabolic encephalopathy Status: Acute (4) Altered mental status Code(s): R41.82 - Altered mental status, unspecified Status: Acute (5) History of peripheral arterial disease Code(s): Z86.79 - Personal history of other diseases of the circulatory system Status: Chronic (6) History of hypertension Code(s): Z86.79 - Personal history of other diseases of the circulatory system Status: Chronic (7) Cessation of tobacco use in previous 12 months Code(s): Z87.891 - Personal history of nicotine dependence Status: Chronic - Assessment and Plan Plan: NEURO/psych: 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 -Status post left craniotomy resection of tumor 06/0506/04/2018 (clopidogrel will be held for 7 days prior to surgery) -Oncology consult, also CT chest abdomen pelvis -right upper lobe mass with probable adrenal metastases cannot rule out liver metastases -Tight blood pressure control with nicardipine e and IV labetalol as needed, and PO meds, see below -Keep systolic blood pressure less than 150 -Supplement multivitamin thiamine given daily alcohol use -Watch closely for alcohol withdrawal -Mild alcohol withdrawal contributing to agitation -Use expected for agitation, Haldol as needed -EEG originally negative for seizures -Repeat EEG 06/06 field possible left frontal breakthrough. Loaded with fosphenytoin 1 g.. Start on 100 mg 3 times daily recheck level in a.m was 9.2 with free level around 17. Continue per neurology. -MRA 06/06 brain revealed left lateral ventricle resection, intervertebral hemorrhage slightly decreased. Small subdural hematoma. Postsurgical. Rightward shift 5 mm. -Sharp left frontal yesterday. Recheck EEG today Currently on fosphenytoin 200 mg every 8 hours. Level 18. Recheck in a.m. 06/13 On levetiracetam 1500 mg IV twice daily. Added lacosamide 50 mg twice daily per neurosurgery request Neurosurgery managing antiepileptics. Check EEG today RESP: Acute respiratory failure Previous tobacco use Right upper lobe speak with a mass -PRVC ventilation with ventilator bundle/head of bed at 30 degrees -Albuterol/ipratropium aerosols every 4 hours scheduled and as needed albuterol aerosols every 2 hours as needed -Pulmonology consulted for right upper lobe mass concerning for primary malignancy, with adrenal mass -Pulmonary Dr. Evans suggesting CT-guided biopsy and PET scan once clinically more stable and neuro surgery completed -Reintubated and ISC after PACU 06/05. -Spontaneous breathing trials today again, attempt extubation when she can protect her airway. CV: Hypertensive emergency History of hypertension Peripheral arterial disease -Normal saline IV fluids 84 mL/h discontinue -Clevidipine nfusion and, IV labetalol as needed for systolic blood pressure less than 150 -Continue home enalapril 40 mg daily and amlodipine 5 mg daily increased to 10 mg daily, continue pravastatin [address] Quintero Added metoprolol tartrate 50 mg twice daily -Continue holding clopidogrel until cleared by neurosurgery -Decrease platelet activity noted on 06/01 -INR, PT, PTT normal - GI: Left adrenal mass 1.3 x 1.2 cm Colonic diverticulosis Right liver mass versus cyst Elevated LFTs -Currently n.p.o. status, lansoprazole for GI prophylax. Docusate sodium/senna 1 tablet twice daily for bowel regimen -Continue tube feedings with vital 1.5 goal 50 cc an hour -Check ammonia level in a.m. : -Monitor renal function closely. ID: Gram-negative rupinder sputum positive -Day #1 piperacillin/tazobactam. Speciation pending HEME: Leukocytosis Macrocytic anemia -Oncology. 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 Kapadia. Pathology still pending FEN/ENDO: Hypophosphatemia -Electrolyte replacement per protocol PROPH: -Bilateral lower extremity SCDs. Avoid chemical DVT prophylaxis until after surgery. LINES: -Utilize peripheral IVs, central line if needed Level 2 follow-up (4) Altered mental status Qualifiers: Altered mental status type: unspecified Qualified Code(s): R41.82 - Altered mental status, unspecified
[2018-06-12] MEDS: Piperacil/Tazo 4.5 GM Premix 4.5 GM/100 ML BAG IV.SIG SCH ×2 (16:36→21:56)
[2018-06-12] MEDS ORDERED: Potassium Phosphate Inj 30 MMOL in Sodium Chlor 0.9% Inj 250 ML IV.SIG ONE (17:00)
[2018-06-12] MEDS: Lacosamide Inj 50 MG in Sodium Chlor 0.9% Inj 100 ML IV.SIG SCH (17:30)
--- NOTE | 2018-06-12 18:10 | P.PN ---
Subjective Interval history: She is more alert and responds to commands. On IV Zosyn for gram-negative rods in sputum. Failed attempt at extubate yesterday. Now on AC rate of 12, FiO2 40%. No seizures noted. Physical Exam Vital signs: Vital Signs 06/11/18 18:08 06/11/18 18:10 06/11/18 18:11 Temperature Pulse Rate 107 H 101 H Respiratory Rate 14 Blood Pressure 180/78 H 175/78 H Pulse Oximetry 06/11/18 18:13 06/11/18 18:16 06/11/18 18:18 Temperature Pulse Rate 96 H 93 H 91 H Respiratory Rate Blood Pressure 184/83 H 176/69 H 186/82 H Pulse Oximetry 06/11/18 18:21 06/11/18 18:23 06/11/18 18:26 Temperature Pulse Rate 92 H 94 H 92 H Respiratory Rate Blood Pressure 170/61 H 189/89 H 186/83 H Pulse Oximetry 100 100 100 06/11/18 18:28 06/11/18 18:33 06/11/18 18:36 Temperature Pulse Rate 91 H 96 H 90 Respiratory Rate Blood Pressure 177/74 H 160/111 H 170/127 H Pulse Oximetry 100 85 L 100 06/11/18 19:00 06/11/18 19:11 06/11/18 19:30 Temperature Pulse Rate 96 H 108 H 103 H Respiratory Rate 17 Blood Pressure 130/82 108/50 L Pulse Oximetry 100 100 100 06/11/18 20:00 06/11/18 20:10 06/11/18 20:30 Temperature Pulse Rate 110 H 104 H 114 H Respiratory Rate 16 Blood Pressure 118/58 L 125/57 L Pulse Oximetry 100 06/11/18 21:00 06/11/18 21:30 06/11/18 22:00 Temperature 98.7 F Pulse Rate 111 H 117 H 113 H Respiratory Rate Blood Pressure 126/59 L 136/59 L 130/60 Pulse Oximetry 92 L 96 90 L 06/11/18 22:30 06/11/18 23:00 06/11/18 23:30 Temperature Pulse Rate 111 H 120 H 108 H Respiratory Rate Blood Pressure 132/53 L 110/51 L 110/52 L Pulse Oximetry 90 L 98 97 06/12/18 00:00 06/12/18 00:07 06/12/18 00:30 Temperature 99.1 F Pulse Rate 98 H 95 H Respiratory Rate 14 Blood Pressure 112/54 L 114/55 L Pulse Oximetry 98 95 97 06/12/18 01:00 06/12/18 01:30 06/12/18 02:00 Temperature Pulse Rate 101 H 97 H 94 H Respiratory Rate Blood Pressure 115/54 L 119/56 L 109/52 L Pulse Oximetry 100 99 99 06/12/18 02:30 06/12/18 03:00 06/12/18 03:30 Temperature Pulse Rate 91 H 87 95 H Respiratory Rate Blood Pressure 118/58 L 120/58 L 123/58 L Pulse Oximetry 100 100 99 06/12/18 03:55 06/12/18 04:00 06/12/18 04:25 Temperature 98.9 F Pulse Rate 95 H 90 Respiratory Rate 16 15 Blood Pressure 121/58 L Pulse Oximetry 100 97 06/12/18 04:30 06/12/18 05:00 06/12/18 05:30 Temperature Pulse Rate 94 H 91 H 92 H Respiratory Rate Blood Pressure 127/58 L 126/59 L 119/56 L Pulse Oximetry 100 99 06/12/18 06:00 06/12/18 06:30 06/12/18 07:00 Temperature Pulse Rate 87 83 84 Respiratory Rate 12 Blood Pressure 125/56 L 111/53 L 116/56 L Pulse Oximetry 98 99 96 06/12/18 08:00 06/12/18 09:00 06/12/18 09:09 Temperature 98.7 F Pulse Rate 89 97 H Respiratory Rate 12 13 Blood Pressure 122/60 119/60 Pulse Oximetry 97 100 100 06/12/18 09:10 06/12/18 10:00 06/12/18 11:00 Temperature Pulse Rate 96 H 86 85 Respiratory Rate 19 12 13 Blood Pressure 117/59 L 98/56 L Pulse Oximetry 100 100 97 06/12/18 11:55 06/12/18 12:00 06/12/18 12:31 Temperature 99.2 F Pulse Rate 86 89 Respiratory Rate 16 12 Blood Pressure 158/75 H 110/56 L Pulse Oximetry 99 100 97 06/12/18 13:00 06/12/18 14:00 06/12/18 15:00 Temperature Pulse Rate 92 H 92 H 93 H Respiratory Rate 18 21 20 Blood Pressure 109/53 L 123/56 L 119/77 Pulse Oximetry 98 97 97 06/12/18 16:00 06/12/18 16:11 06/12/18 17:00 Temperature 98.4 F Pulse Rate 99 H 96 H 102 H Respiratory Rate 18 19 12 Blood Pressure 129/85 113/57 L Pulse Oximetry 98 96 98 Intake & Output 06/11/18 06/12/18 06/12/18 18:59 06:59 18:59 Intake Total 469 / 469 169 / 169 223 / 223 Output Total 570 / 570 300 / 300 41 / 41 Balance -101 / -101 -131 / -131 182 / 182 Weight 69.5 kg Intake: IV 469 / 469 169 / 169 223 / 223 Cerebyx Inj 200 MGPE In NS Inj 54 / 54 54 / 54 108 / 108 50 ML @ 216 mls/hr IV.SIG Q8HR ALEXIS Rx#:[id number] KCl 20 mEq Premix Inj 20 meq In 300 / 300 100 ml @ 50 mls/hr IV.SIG Q2H PRN Rx#:[id number] Keppra Inj 1,500 MG In NS Inj 115 / 115 115 / 115 115 / 115 100 ML @ 400 mls/hr IV.SIG Q12H ALEXIS Rx#:[id number] Output: Urine Amount (Catheter) 450 / 450 300 / 300 Indwelling Urethral Catheter 450 / 450 300 / 300 Intracranial Drainage 120 / 120 41 / 41 Ventricle Left Temporoparietal 120 / 120 41 / 41 Other: Date of Last Bowel Movement 06/11/18 06/11/18 06/11/18 # Bowel Movements 1 Narrative: Patient is intubated. She is awake, alert, nodding appropriately and trying to mouth words. GENERAL: Averagely built elderly white female on ventilator support SKIN: Warm and dry. HEAD: Atraumatic. Normocephalic. EYES: Pupils equal and round. No scleral icterus. No injection or drainage. ENT: No nasal bleeding or discharge. Mucous membranes pink and moist. NECK: Trachea midline. No JVD. CARDIOVASCULAR: Regular rate and rhythm. RESPIRATORY: No accessory muscle use. Few expiratory wheezes in the upper chest. Breath sounds equal bilaterally. GASTROINTESTINAL: Abdomen soft, non-tender, nondistended. Hepatic and splenic margins not palpable. MUSCULOSKELETAL: Extremities without clubbing, cyanosis, or edema. No obvious deformities. NEUROLOGICAL: Awake and intubated. PSYCHIATRIC: Cannot assess - Urinary Catheter Management Female External Cath placed during this visit: no Reason for continuing: Not indwelling catheter Indwelling Urethral Catheter Cath placed during this visit: yes Reason for continuing: Hourly intake/output Insertion date: 06/05/18 Insertion time: 08:30 Results - Labs CBC & Chem 7: 06/12/18 08:51 06/12/18 03:53 Laboratory Results - last 24 hr 06/11/18 06/11/18 06/12/18 17:45 18:49 03:53 WBC RBC Hgb Hct MCV MCH MCHC RDW Plt Count MPV Prelim Diff (Auto) Neut % (Auto) Lymph % (Auto) [place] % (Auto) Eos % (Auto) Baso % (Auto) Neut # (Auto) Lymph # (Auto) [place] # (Auto) Eos # (Auto) Baso # (Auto) WBC Differential Seg Neuts % (Manual) Band Neuts % (Manual) Lymphocytes % (Manual) Monocytes % (Manual) Metamyelocytes % (Man) Myelocytes % (Man) Promyelocytes % (Man) Abs Neuts (Manual) Differential Comment Toxic Granulation Platelet Estimate Platelet Morphology Puncture Site Right radial Patient Temperature 98.6 O2 Saturation 97 ABG pH 7.52 H* ABG pCO2 32 L ABG pO2 117 ABG HCO3 26 ABG O2 Content 16.6 ABG Base Excess 3.2 H ABG Methemoglobin 1.2 [place] Test Present Hemoglobin 12.1 Carboxyhemoglobin 1.0 O2 Delivery Device Ventilator Vent Setting Prvc/ac Inspired O2 70 Critical Value Yes Sodium 141 Potassium 3.8 3.8 Chloride 106 Carbon Dioxide 26.2 Anion Gap 9 BUN 13 Creatinine 0.32 L Estimated GFR Greater than 89 Random Glucose 99 Calcium 8.0 L Phosphorus 1.4 L Magnesium 2.6 H D Phenytoin 18.8 06/12/18 08:51 WBC 14.1 H RBC 3.08 L Hgb 10.4 L Hct 31.6 L MCV 102.5 H D MCH 33.7 MCHC 32.9 RDW 14.6 Plt Count 266 MPV 8.7 Prelim Diff (Auto) Slide review pending Neut % (Auto) 85.6 H Lymph % (Auto) 9.1 [place] % (Auto) 3.8 Eos % (Auto) 0.8 Baso % (Auto) 0.7 Neut # (Auto) 15.0 H Lymph # (Auto) 1.6 [place] # (Auto) 0.7 Eos # (Auto) 0.1 Baso # (Auto) 0.1 WBC Differential Manual diff final Seg Neuts % (Manual) 80 H Band Neuts % (Manual) 3 Lymphocytes % (Manual) 9 Monocytes % (Manual) 3 Metamyelocytes % (Man) 2 H Myelocytes % (Man) 2 H Promyelocytes % (Man) 1 H Abs Neuts (Manual) 12.4 H Differential Comment . Toxic Granulation 1+ H Platelet Estimate Normal Platelet Morphology Clumped H Puncture Site Patient Temperature O2 Saturation ABG pH ABG pCO2 ABG pO2 ABG HCO3 ABG O2 Content ABG Base Excess ABG Methemoglobin [place] Test Hemoglobin Carboxyhemoglobin O2 Delivery Device Vent Setting Inspired O2 Critical Value Sodium Potassium Chloride Carbon Dioxide Anion Gap BUN Creatinine Estimated GFR Random Glucose Calcium Phosphorus Magnesium Phenytoin Microbiology 06/11/18 18:40 Sputum - Endotracheal Gram Stain - Final 06/11/18 18:40 Sputum - Endotracheal Sputum Culture - Preliminary gram negative rods 06/09/18 06:35 Sputum - Endotracheal Gram Stain - Final 06/09/18 06:35 Sputum - Endotracheal Sputum Culture - Final Heavy growth normal respiratory flores - Imaging Impressions Chest X-Ray 06/11/18 18:00 CONCLUSION: 1. Endotracheal tube 1.6 cm above the claire. 2. Bibasilar consolidation. 3. Nodular density right upper lobe. Chest X-Ray 06/12/18 06:00 CONCLUSION: Endotracheal tube and nasogastric tube in good position. Basilar airspace disease not significantly changed from [address] 06/12/18 07:21 CONCLUSION: 1. 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 2. Improved pneumocephalus and intraventricular blood products. 3. No intercurrent acute hemorrhage, midline shift or hydrocephalus. . Assessment and Plan - Assessment (1) COPD (chronic obstructive pulmonary disease) Code(s): J44.9 - Chronic obstructive pulmonary disease, unspecified Status: Acute (2) Right upper lobe pulmonary nodule Code(s): R91.1 - Solitary pulmonary nodule Status: Acute (3) Intraventricular hemorrhage, nontraumatic Code(s): I61.5 - Nontraumatic intracerebral hemorrhage, intraventricular Status: Acute (4) Hypertensive emergency Code(s): I16.1 - Hypertensive emergency Status: Acute (5) Metabolic encephalopathy Code(s): G93.41 - Metabolic encephalopathy Status: Acute (6) Altered mental status Code(s): R41.82 - Altered mental status, unspecified Status: Acute (7) History of peripheral arterial disease Code(s): Z86.79 - Personal history of other diseases of the circulatory system Status: Chronic (8) History of hypertension Code(s): Z86.79 - Personal history of other diseases of the circulatory system Status: Chronic (9) Cessation of tobacco use in previous 12 months Code(s): Z87.891 - Personal history of nicotine dependence Status: Chronic - Plan 1 continue to do CPAP 5 x 12 trials daily, and FiO2 30% 2. Continue DuoNeb nebs 4 times daily. 3. CBC BMP in a.m. 4. Workup for lung mass when clinically stable 5. Continue antibiotics as ordered 6 Symbicort 160 about 4.5 mcg 1 puff twice daily 7. Solu-Medrol 20 mg IV twice daily 8. Wean sedation (6) Altered mental status Qualifiers: Altered mental status type: unspecified Qualified Code(s): R41.82 - Altered mental status, unspecified
--- NOTE | 2018-06-12 18:19 | MG ---
cc: Juan J Mace MD, PhD TEST NUMBER: [id number]. TECHNIQUE: A 17-channel EEG. DESCRIPTION: The background rhythm reveals symmetrical slowing in the theta and delta frequencies. There is quite a lot of eye movement artifact, muscle artifact as well. No lateralizing features are seen. No epileptiform discharges are identified. There is some EKG artifact. INTERPRETATION: Abnormal study consistent with a moderate encephalopathy. Juan J Mace MD, PhD [place] , 05:45 PM , 05:53 PM
[2018-06-13] MEDS: Piperacil/Tazo 4.5 GM Premix 4.5 GM/100 ML BAG IV.SIG SCH ×2 (04:30→09:31)
[2018-06-13] MEDS: Lacosamide Inj 50 MG in Sodium Chlor 0.9% Inj 100 ML IV.SIG SCH ×5 (04:31→16:57)
--- NOTE | 2018-06-13 05:04 | XR ---
EXAM DATE: 06/13/2018 4:42 AM EST AGE/SEX: 78 years / Female INDICATIONS: Respiratory failure. CLINICAL DATA: This is the patient's subsequent encounter. Patient reports that signs and symptoms h ave been present for 1 week and indicates a pain score of Nonresponsive. MEDICAL/SURGICAL HISTORY: Cerebrovascular disease. Non-responsive. COMPARISON: [facility], CHEST 1V SINGLE AP, 06/12/2018. . FINDINGS: Endotracheal tube in good position. NG enters stomach. Mild basilar airspace disease and probable sma ll effusions. CONCLUSION: Basilar airspace disease slightly improved from June 12. Endotracheal tube and nasogastric tube un changed. Electronically signed by: Bernabe Alvarez MD Board Certified Radiologist 06/13/2018 5:03 AM EST
[2018-06-13] MEDS: Artificial Tears Opth Drops 15 ML Bottle EACH EYE SCH ×3 (05:26→20:34)
[2018-06-13] MEDS: Fosphenytoin Inj 200 MGPE in Sodium Chlor 0.9% Inj 50 ML IV.SIG SCH ×2 (06:59→13:00)
[2018-06-13 07:01] LABS: Baso # (Auto) 0.1 th/mm3 (0.0-0.2); Baso % (Auto) 0.4 % (0.0-2.0); Eos # (Auto) 0.1 th/mm3 (0.0-0.4); Eos % (Auto) 0.7 % (0.0-4.0); Hematocrit 29.7 % (35.0-46.0); Hemoglobin 9.9 gm/dL (11.6-15.3); Lymph # (Auto) 1.1 th/mm3 (1.0-4.8); Lymph % (Auto) 8.1 % (9.0-44.0); Mean Corpuscular HGB Conc 33.3 % (32.0-36.0); Mean Corpuscular Hemoglobin 33.3 pg (27.0-34.0); Mean Platelet Volume 8.3 fL (7.0-11.0); Mono # (Auto) 0.6 th/mm3 (0.0-0.9); Mono % (Auto) 4.1 % (0.0-8.0); Neut # (Auto) 12.1 th/mm3 (1.8-7.7); Neut % (Auto) 86.7 % (16.0-70.0); Platelet Count 289 th/mm3 (150-450); Red Blood Count 2.97 mil/mm3 (4.00-5.30); Red Cell Distribution Width 14.8 % (11.6-17.2)
[2018-06-13] MEDS: Enoxaparin Inj 40 MG/0.4 ML Syringe SQ SCH (09:29)
[2018-06-13] MEDS: Metoprolol Tartrate 50 MG Tablet PO SCH ×2 (09:29→20:35)
[2018-06-13] MEDS: Sodium Chloride 1 GM Tablet PO SCH ×2 (09:29→20:40)
[2018-06-13] MEDS: Pantoprazole Inj 40 MG Vial IV.PUSH SCH (09:30)
[2018-06-13] MEDS: MethylPREDNISolone Sod Succinate Inj 40 MG/ML Vial IV.PUSH SCH ×2 (09:30→20:40)
[2018-06-13] MEDS: Lisinopril 20 MG Tablet PO SCH (09:30)
[2018-06-13] MEDS: Budesonide-Formoterol 160/4.5 MCG 6 GM Inhaler INH SCH ×2 (09:31→20:41)
[2018-06-13] MEDS: Senna/Docusate Sodium 8.6/50 MG Tablet PO SCH ×2 (09:31→20:35)
[2018-06-13] MEDS: amLODIPine 5 MG Tablet PO SCH (09:32)
[2018-06-13 10:40] LABS: Lymphocytes 8 % (9-44); Monocytes 4 % (0-8); Myelocytes 3 % (0-0); Platelet Estimate Normal (Normal); Platelet Morphology Clumped (Normal); Toxic Granulation 1+
--- NOTE | 2018-06-13 11:13 | P.PNNS ---
Subjective Interval history: no changes neuro checks overnight, no issues with ventriculostomy drain, no reports of seizures <Samanta Banda - Last Filed: 06/13/18 11:15> Physical Exam Vital signs: Vital Signs 06/12/18 11:55 06/12/18 12:00 06/12/18 12:31 Temperature 99.2 F Pulse Rate 86 89 Respiratory Rate 16 12 Blood Pressure 158/75 H 110/56 L Pulse Oximetry 99 100 97 06/12/18 13:00 06/12/18 14:00 06/12/18 15:00 Temperature Pulse Rate 92 H 92 H 93 H Respiratory Rate 18 21 20 Blood Pressure 109/53 L 123/56 L 119/77 Pulse Oximetry 98 97 97 06/12/18 16:00 06/12/18 16:11 06/12/18 17:00 Temperature 98.4 F Pulse Rate 99 H 96 H 102 H Respiratory Rate 18 19 12 Blood Pressure 129/85 113/57 L Pulse Oximetry 98 96 98 06/12/18 18:00 06/12/18 19:00 06/12/18 19:01 Temperature Pulse Rate 101 H 93 H 105 H Respiratory Rate 12 18 12 Blood Pressure 114/53 L 151/66 H 151/66 H Pulse Oximetry 97 96 96 06/12/18 19:56 06/12/18 20:00 06/12/18 21:00 Temperature 99.4 F Pulse Rate 97 H 91 H 103 H Respiratory Rate 12 13 13 Blood Pressure 155/89 H 143/61 H Pulse Oximetry 95 95 97 06/12/18 22:00 06/12/18 23:00 06/13/18 00:00 Temperature 99.0 F Pulse Rate 100 H 93 H 91 H Respiratory Rate 13 14 14 Blood Pressure 133/61 125/60 119/58 L Pulse Oximetry 96 98 97 06/13/18 01:00 06/13/18 01:17 06/13/18 02:00 Temperature Pulse Rate 90 88 Respiratory Rate 13 13 Blood Pressure 119/54 L Pulse Oximetry 96 96 06/13/18 04:00 06/13/18 04:09 06/13/18 05:00 Temperature Pulse Rate 101 H 101 H 93 H Respiratory Rate 13 Blood Pressure 107/51 L Pulse Oximetry 97 97 06/13/18 06:00 06/13/18 07:00 06/13/18 08:00 Temperature 98.7 F Pulse Rate 92 H 103 H 106 H Respiratory Rate Blood Pressure 117/55 L 164/63 H 146/70 H Pulse Oximetry 94 L 98 98 06/13/18 08:50 06/13/18 09:00 06/13/18 10:00 Temperature Pulse Rate 106 H 109 H 101 H Respiratory Rate 13 Blood Pressure 124/55 L 114/53 L Pulse Oximetry 97 98 98 Intake & Output 06/12/18 06/13/18 06/13/18 18:59 06:59 18:59 Intake Total 1019 / 1019 1026 / 1026 514 / 514 Output Total 385 / 385 330 / 330 Balance 634 / 634 696 / 696 514 / 514 Weight 70.4 kg Intake: IV 428 / 428 474 / 474 514 / 514 Cerebyx Inj 200 MGPE In NS Inj 108 / 108 54 / 54 54 / 54 50 ML @ 216 mls/hr IV.SIG Q8HR ALEXIS Rx#:[id number] Vimpat Inj 50 MG In NS Inj 100 105 / 105 105 / 105 ML @ 105 mls/hr IV.SIG Q12H ALEXIS Rx#:[id number] Zosyn 4.5 GM Premix 4.5 gm In 100 / 100 200 / 200 100 / 100 100 ml @ 200 mls/hr IV.SIG Q6H ALEXIS Rx#:[id number] KCl 20 mEq Premix Inj 20 meq In 100 / 100 100 ml @ 50 mls/hr IV.SIG Q2H PRN Rx#:[id number] Potassium Phosphate Inj 30 MMOL 260 / 260 In NS Inj 250 ML @ 43.333 mls/ hr IV.SIG ONCE ONE Rx#:[id number] Keppra Inj 1,500 MG In NS Inj 115 / 115 115 / 115 100 ML @ 400 mls/hr IV.SIG Q12H ALEXIS Rx#:[id number] Tube Feeding 471 / 471 552 / 552 Water Bolus Amount 120 / 120 Output: Urine Amount (Catheter) 300 / 300 300 / 300 Indwelling Urethral Catheter 300 / 300 300 / 300 Gastric Drainage 0 / 0 Orogastric Tube 0 / 0 Intracranial Drainage 85 / 85 30 / 30 Ventricle Left Temporoparietal 85 / 85 30 / 30 Other: Date of Last Bowel Movement 06/11/18 06/13/18 06/13/18 # Bowel Movements 0 2 Narrative: Patient is intubated. She is awake, alert, interacting, nodding appropriately and trying to mouth words. follows commands x 4 extremities, weaker on the right. pupils are equal. wound with dressing clean dry and intact. Ventriculostomy drain in place at 15 mmHg. ICPs controlled. CSF clearing up. Positive cough and gag when suctioned. - Urinary Catheter Management Female External Cath placed during this visit: no Reason for continuing: Not indwelling catheter Indwelling Urethral Catheter Cath placed during this visit: yes Reason for continuing: Hourly intake/output Insertion date: 06/05/18 Insertion time: 08:30 <Samanta Banda - Last Filed: 06/13/18 11:15> Vital signs: Vital Signs 06/12/18 11:55 06/12/18 12:00 06/12/18 12:31 Temperature 99.2 F Pulse Rate 86 89 Respiratory Rate 16 12 Blood Pressure 158/75 H 110/56 L Pulse Oximetry 99 100 97 06/12/18 13:00 06/12/18 14:00 06/12/18 15:00 Temperature Pulse Rate 92 H 92 H 93 H Respiratory Rate 18 21 20 Blood Pressure 109/53 L 123/56 L 119/77 Pulse Oximetry 98 97 97 06/12/18 16:00 06/12/18 16:11 06/12/18 17:00 Temperature 98.4 F Pulse Rate 99 H 96 H 102 H Respiratory Rate 18 19 12 Blood Pressure 129/85 113/57 L Pulse Oximetry 98 96 98 06/12/18 18:00 06/12/18 19:00 06/12/18 19:01 Temperature Pulse Rate 101 H 93 H 105 H Respiratory Rate 12 18 12 Blood Pressure 114/53 L 151/66 H 151/66 H Pulse Oximetry 97 96 96 06/12/18 19:56 06/12/18 20:00 06/12/18 21:00 Temperature 99.4 F Pulse Rate 97 H 91 H 103 H Respiratory Rate 12 13 13 Blood Pressure 155/89 H 143/61 H Pulse Oximetry 95 95 97 06/12/18 22:00 06/12/18 23:00 06/13/18 00:00 Temperature 99.0 F Pulse Rate 100 H 93 H 91 H Respiratory Rate 13 14 14 Blood Pressure 133/61 125/60 119/58 L Pulse Oximetry 96 98 97 06/13/18 01:00 06/13/18 01:17 06/13/18 02:00 Temperature Pulse Rate 90 88 Respiratory Rate 13 13 Blood Pressure 119/54 L Pulse Oximetry 96 96 06/13/18 04:00 06/13/18 04:09 06/13/18 05:00 Temperature Pulse Rate 101 H 101 H 93 H Respiratory Rate 13 Blood Pressure 107/51 L Pulse Oximetry 97 97 06/13/18 06:00 06/13/18 07:00 06/13/18 08:00 Temperature 98.7 F Pulse Rate 92 H 103 H 106 H Respiratory Rate Blood Pressure 117/55 L 164/63 H 146/70 H Pulse Oximetry 94 L 98 98 06/13/18 08:50 06/13/18 09:00 06/13/18 10:00 Temperature Pulse Rate 106 H 109 H 101 H Respiratory Rate 13 Blood Pressure 124/55 L 114/53 L Pulse Oximetry 97 98 98 Intake & Output 06/12/18 06/13/18 06/13/18 18:59 06:59 18:59 Intake Total 1019 / 1019 1026 / 1026 514 / 514 Output Total 385 / 385 330 / 330 Balance 634 / 634 696 / 696 514 / 514 Weight 70.4 kg Intake: IV 428 / 428 474 / 474 514 / 514 Cerebyx Inj 200 MGPE In NS Inj 108 / 108 54 / 54 54 / 54 50 ML @ 216 mls/hr IV.SIG Q8HR ALEXIS Rx#:[id number] Vimpat Inj 50 MG In NS Inj 100 105 / 105 105 / 105 ML @ 105 mls/hr IV.SIG Q12H ALEXIS Rx#:[id number] Zosyn 4.5 GM Premix 4.5 gm In 100 / 100 200 / 200 100 / 100 100 ml @ 200 mls/hr IV.SIG Q6H ALEXIS Rx#:[id number] KCl 20 mEq Premix Inj 20 meq In 100 / 100 100 ml @ 50 mls/hr IV.SIG Q2H PRN Rx#:[id number] Potassium Phosphate Inj 30 MMOL 260 / 260 In NS Inj 250 ML @ 43.333 mls/ hr IV.SIG ONCE ONE Rx#:[id number] Keppra Inj 1,500 MG In NS Inj 115 / 115 115 / 115 100 ML @ 400 mls/hr IV.SIG Q12H ALEXIS Rx#:[id number] Tube Feeding 471 / 471 552 / 552 Water Bolus Amount 120 / 120 Output: Urine Amount (Catheter) 300 / 300 300 / 300 Indwelling Urethral Catheter 300 / 300 300 / 300 Gastric Drainage 0 / 0 Orogastric Tube 0 / 0 Intracranial Drainage 85 / 85 30 / 30 Ventricle Left Temporoparietal 85 / 85 30 / 30 Other: Date of Last Bowel Movement 06/11/18 06/13/18 06/13/18 # Bowel Movements 0 2 - Urinary Catheter Management Female External Cath placed during this visit: no Indwelling Urethral Catheter Cath placed during this visit: no <Duke Palacios - Last Filed: 06/13/18 11:17> Assessment and Plan - Plan 78 yo female with vague constellation of symptoms GCS-[address] shows 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 hemorrhagic mass Will follow with you 05/30/18: cont neuro checks in ICU Dr. 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 at midnight on Monday night into Monday Minimize sedating meds, etc. 06/03/18: Appears to be a bit more encephalopathic today, possible contribution of hospital delirium versus her mild hydrocephalus, though favor delirium since her level of alertness remains stable Dr. 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 at midnight tonight Continue to minimize sedating meds, etc. 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 Palacios 06/06/18: POD #1. pt had seizure last night requiring intubation. She has been started on Keppra for seizures. On exam she opens eyes and follows commands. Postoperative MRI Brain w/wo contrast has been ordered and pending. Obtain EEG to assess seizures. Continue ventriculostomy draining, add ICP monitoring. Start sq lovenox for dvt prophylaxis. Will follow. 06/07/18: POD #2. patient neurologically stable, opens eyes and follows commands. Postoperative MRI Brain reviewed by neurosurgery team. Spot EEG reports no ongoing seizures, with high amplitude sharp waves on left?breach rhythm. Critical care plans on extubation today. Continue ventriculostomy draining at 10 mmHg. Final pathology pending. Neurology following for seizure management. Will follow. 06/08/18: POD #3. patient neurologically stable, opens eyes and follows commands. Ventriculostomy draining well with controlled ICPs, will continue at 10mmHg. Pathology still pending. cont seizure management per Neurology. dw critical care. will follow. 06/09/2018 POD#4 Remains Neurologically stable, follows commands Stop sedation wean ventilator to CPAP 5 x 12 and FiO2 30% Continue DuoNeb nebs 4 times daily. Check respiratory parameters and consider extubation Agree with Symbicort 160 about 4.5 mcg 1 puff twice daily and Solu-Medrol 40 mg IV twice daily Continue EVD Would maintain SBP 140-160 to improve CPP. 06/10/2018 POD#5 Seizure yesterday, and last night, have increased Cerebyx and Keppra D/C'ed Barbs would prefer to maintain on 2 agents and high therapeutic levels of Cerebyx, usually best with brain tumors Free Dilantin levels not easily obtainable here. Lets keep level around 20 with standard level remains Neurologically stable wean ventilator to CPAP 5 x 12 and FiO2 30% and if OK, may extubate from Neurosurgical standpoint. 06/11/18 POD #6 seizures controlled overnight, will continue Cerebyx 200 tid and Keppra 1500 bid. Dilantin levels 17.6 today continue critical care - vent weaning - CPAP trials cont EVD draining at 5 mmHg final pathology still pending will follow 06/12/18 POD #7 pt failed extubation yesterday, reintubated- critical care managing repeat EEG 06/11/18 abnormal with sharp activities left hemisphere dilantin levels 18.8 this morning cont current anticonvulsants, will repeat EEG today obtained follow up CT Brain this morning which was reviewed by Dr. Perdue, EVD raised to 15 mmHg neuro exam today appears better final pathology still pending 06/13/18 POD #8 neurologically she is awake, alert EEG yesterday 06/12/18 - mod encephalopathy, no reports of any seizure activities cont current anticonvulsants, Dilantin levels trending up pending today, started on Zosyn for gram neg rods in sputum - per critical care cont EVD challenge, cont at 15 mmHg today, plan to clamp tomorrow will follow <Samanta Banda - Last Filed: 06/13/18 11:15> - Attending Attestation More awake and interactive Path still pending I have personally seen and examined the patient, reviewed pertinent labs and imaging studies with the Neurosurgery team. I agree with Ms. Banda's ( Neurosurgery -[facility]), assessment as well as plan of care. <Duke Palacios - Last Filed: 06/13/18 11:17>
[2018-06-13 12:09] LABS: Alanine Aminotransferase 121 U/L (10-53); Albumin 1.8 g/dL (3.4-5.0); Alkaline Phosphatase 139 U/L (45-117); Anion Gap 8 meq/L (5-15); Aspartate Aminotransferase 75 U/L (15-37); Blood Urea Nitrogen 15 mg/dL (7-18); Calcium 7.5 mg/dL (8.5-10.1); Carbon Dioxide 25.9 meq/L (21.0-32.0); Chloride 107 meq/L (98-107); Glomerular Filtration Rate Greater Than 89 mL/min (>89); Glucose,Random 169 mg/dL (74-106); Magnesium 2.1 mg/dL (1.5-2.5); Phenytoin (Dilantin) 15.6 mcg/mL (10.0-20.0); Phosphorus 3.8 mg/dL (2.5-4.9); Potassium 3.5 meq/L (3.5-5.1); Sodium 141 meq/L (136-145); Total Protein 5.9 g/dL (6.4-8.2)
[2018-06-13] MEDS: levETIRAcetam Inj 1,500 MG in Sodium Chlor 0.9% Inj 100 ML IV.SIG SCH (12:49)
--- NOTE | 2018-06-13 14:04 | P.PNCC ---
Subjective Subjective Remarks/Hospital Course: Patient is a 78-year-old female with past medical history significant for hypertension, peripheral arterial disease, history of vascular intervention/ stenting, arthritis who presented to the [facility] with mostly nonspecific complaints of memory loss and hallucinations for 1 week and worsening tremors of the right arm. Further workup in the emergency department showed subacute intraventricular hemorrhage into the left lateral ventricle and a focal thrombus that may be obstructing foramina of [place]. There was enlargement of the left lateral ventricle compared to the prior MRI. Also trace blood in the occipital horn of left lateral ventricle. With evidence of intraventricular hemorrhage patient was transferred emergently to [facility] for neurosurgery consult. I evaluated the patient after arrival to the ICU. Patient is profoundly hypertensive systolic blood pressure 190-200. IV labetalol 20 mg IV push given followed by Cardene infusion started. On exam patient did not appear to be in distress. No definite focal deficit however patient is oriented only to person. Reviewed CT scan with neurosurgery Dr. Palacios. On his review CT shows 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 hemorrhagic mass at foramen of Bell with asymmetric left sided ventricular dilatation. Stat MRI of the brain with and without contrast ordered. Started on Cardene infusion with target systolic blood pressure less than 140 05/30/18: MRI brain showed 2.3 x 1.7 cm mass within the body of the left lateral ventricle measuring 2.3 x 1.7 cm left lateral ventricle is prominent may be related to production of CSF from this mass. 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 Additional mass in the cerebellopontine angle on the left compressing upon the brainstem measuring 1.8 x 1.4 cm. Slightly more agitated and confused today. Partly secondary to mass partly could be alcohol withdrawal. Placed on as needed Haldol 05/31: Patient remains sedated received Ativan a few hours before. Currently for that reason Precedex is being held. Wakes up follows some commands. Oriented to person only. Plan for craniotomy and resection of intraventricular mass scheduled tentatively for Monday. Ct chest: 1.6 x 1.1 cm spiculated RUL nodule concerning for metastasis or primary lung malignancy. 1.1 x 1.4 cm soft tissue density inferior lateral margin of the right breast implant ?focal disruption vs breast mass. CT abdomen pelvis: 1.3 cm left adrenal mass concerning for metastatic disease given findings of brain and lung mass. 1.6 cm indeterminate low-density lesion in the posterior right lobe of the liver with numerous additional subcentimeter hypodense lesions which are too small to fully characterize. Metastatic disease cannot be entirely excluded, possibly cysts. 06/01: Remains confused slightly agitated remains on Precedex. CT angiogram yesterday of the brain showed previously demonstrated intraventricular mass however no cerebellopontine angle mass. WBC count elevated to 19.1 no fever. Will check UA-previously ordered UA had not been done. Check blood cultures, chest x-ray is clear. Continue to hold Plavix 06/02: Plan is for resection of brain mass on Monday. Patient continues breathing comfortably. 06/03: Ready for OR. Labs are in order. INR 1.1. Plavix effect noted on . 06/04: Coagulation profile normal. Patient scheduled for surgery tomorrow. No new complaints. 06/05: Patient seen in PACU shortly after surgery. Brief generalized seizure terminated with Ativan 1 mg. Patient loaded with Cerebyx 1 g. Neurologic exam nonfocal at this time. Pupils pinpoint. Required reintubation due to somnolence. 06/06: T-max 100.8. Currently afebrile. Patient arousable on the ventilator. Hypotensive requiring 1 L bolus normal saline. MRI brain pending. EEG ongoing. 06/07: T-max 100.6. Currently 99.8. MRI brain showed postsurgical change with no increased hemorrhage noted. Replacing potassium, phosphorus and magnesium currently. Dexmedetomidine drip is currently off. Noted some breech with EEG yesterday. Dilantin level therapeutic. 06/08: All sedation off for about 24 hours. She will open her eyes to stimulation. Withdraws 4 limbs to stimulation but right upper extremity appears weaker. Dilantin level is therapeutic and no more seizures. We will attempt to extubate when she can control her airway. Presently too somnolent. 06/09: Possibly slightly more arousable than when I saw her for 8 hours ago. Will reflexively squeeze left upper extremity. Not currently following commands with right upper extremity for me. Tube feeding today increase antihypertensives to wean off clevidipine drip. 06/10: Currently on fosphenytoin 200 mg twice daily and levetiracetam 1500 mg twice daily. Failed CPAP trials x2 today secondary to apnea. Will reattempt this afternoon. Arousable and opens eyes. Spontaneous moves left upper extremity but not following commands. We check EEG today. 06/11: Resting in bed. No seizure activity more awake and following commands. Will attempt extubation today at 1700 hrs. 06/12: Resting in bed. More arousable and interactive today. No seizure activity noted. Failed extubation after 1 hour attempt yesterday. We will CPAP again today and reattempt likely tomorrow. Started on piperacillin/ tazobactam for gram-negative rupinder sputum. Subjective 06/13: Afebrile. Resting in bed in no acute distress. Failed CPAP trial for 2 hours today. Continues with copious thick green sputum. Enterobacter cloacae/ strep noted Objective Vital Signs / I&O: Vital Signs 06/12/18 14:00 06/12/18 15:00 06/12/18 16:00 Temperature 98.4 F Pulse Rate 92 H 93 H 99 H Respiratory Rate 21 20 18 Blood Pressure 123/56 L 119/77 129/85 Pulse Oximetry 97 97 98 06/12/18 16:11 06/12/18 17:00 06/12/18 18:00 Temperature Pulse Rate 96 H 102 H 101 H Respiratory Rate 19 12 12 Blood Pressure 113/57 L 114/53 L Pulse Oximetry 96 98 97 06/12/18 19:00 06/12/18 19:01 06/12/18 19:56 Temperature Pulse Rate 93 H 105 H 97 H Respiratory Rate 18 12 12 Blood Pressure 151/66 H 151/66 H Pulse Oximetry 96 96 95 06/12/18 20:00 06/12/18 21:00 06/12/18 22:00 Temperature 99.4 F Pulse Rate 91 H 103 H 100 H Respiratory Rate 13 13 13 Blood Pressure 155/89 H 143/61 H 133/61 Pulse Oximetry 95 97 96 06/12/18 23:00 06/13/18 00:00 06/13/18 01:00 Temperature 99.0 F Pulse Rate 93 H 91 H 90 Respiratory Rate 14 14 13 Blood Pressure 125/60 119/58 L 119/54 L Pulse Oximetry 98 97 96 06/13/18 01:17 06/13/18 02:00 06/13/18 04:00 Temperature Pulse Rate 88 101 H Respiratory Rate 13 Blood Pressure Pulse Oximetry 96 06/13/18 04:09 06/13/18 05:00 06/13/18 06:00 Temperature Pulse Rate 101 H 93 H 92 H Respiratory Rate 13 Blood Pressure 107/51 L 117/55 L Pulse Oximetry 97 97 94 L 06/13/18 07:00 06/13/18 08:00 06/13/18 08:50 Temperature 98.7 F Pulse Rate 103 H 106 H 106 H Respiratory Rate 13 Blood Pressure 164/63 H 146/70 H Pulse Oximetry 98 98 97 06/13/18 09:00 06/13/18 10:00 06/13/18 11:00 Temperature Pulse Rate 109 H 101 H 96 H Respiratory Rate Blood Pressure 124/55 L 114/53 L 115/56 L Pulse Oximetry 98 98 99 06/13/18 11:59 06/13/18 12:00 06/13/18 13:00 Temperature 98.8 F Pulse Rate 95 H 82 Respiratory Rate 17 Blood Pressure 128/60 Pulse Oximetry 100 100 100 Intake & Output 06/12/18 06/13/18 06/13/18 18:59 06:59 18:59 Intake Total 1019 / 1019 1026 / 1026 514 / 514 Output Total 385 / 385 330 / 330 Balance 634 / 634 696 / 696 514 / 514 Weight 70.4 kg Intake: IV 428 / 428 474 / 474 514 / 514 Cerebyx Inj 200 MGPE In NS Inj 108 / 108 54 / 54 54 / 54 50 ML @ 216 mls/hr IV.SIG Q8HR ALEXIS Rx#:[id number] Vimpat Inj 50 MG In NS Inj 100 105 / 105 105 / 105 ML @ 105 mls/hr IV.SIG Q12H ALEXIS Rx#:[id number] Zosyn 4.5 GM Premix 4.5 gm In 100 / 100 200 / 200 100 / 100 100 ml @ 200 mls/hr IV.SIG Q6H ALEXIS Rx#:[id number] KCl 20 mEq Premix Inj 20 meq In 100 / 100 100 ml @ 50 mls/hr IV.SIG Q2H PRN Rx#:[id number] Potassium Phosphate Inj 30 MMOL 260 / 260 In NS Inj 250 ML @ 43.333 mls/ hr IV.SIG ONCE ONE Rx#:[id number] Keppra Inj 1,500 MG In NS Inj 115 / 115 115 / 115 100 ML @ 400 mls/hr IV.SIG Q12H ALEXIS Rx#:[id number] Tube Feeding 471 / 471 552 / 552 Water Bolus Amount 120 / 120 Output: Urine Amount (Catheter) 300 / 300 300 / 300 Indwelling Urethral Catheter 300 / 300 300 / 300 Gastric Drainage 0 / 0 Orogastric Tube 0 / 0 Intracranial Drainage 85 / 85 30 / 30 Ventricle Left Temporoparietal 85 / 85 30 / 30 Other: Date of Last Bowel Movement 06/11/18 06/13/18 06/13/18 # Bowel Movements 0 2 Result Diagrams: 06/13/18 04:03 06/13/18 10:02 Other Results: Microbiology 06/11/18 18:40 Sputum - Endotracheal Gram Stain - Final 06/11/18 18:40 Sputum - Endotracheal Sputum Culture - Final Enterobacter cloacae Beta Strep not group A 06/09/18 06:35 Sputum - Endotracheal Gram Stain - Final 06/09/18 06:35 Sputum - Endotracheal Sputum Culture - Final Heavy growth normal respiratory flores 06/01/18 10:21 Blood - Peripheral Aerobic Blood Culture - Final No growth in 5 days 06/01/18 10:21 Blood - Peripheral Anaerobic Blood Culture - Final No growth in 5 days 06/01/18 10:16 Blood - Peripheral Aerobic Blood Culture - Final No growth in 5 days 06/01/18 10:16 Blood - Peripheral Anaerobic Blood Culture - Final No growth in 5 days Imaging: Chest X-Ray 05/29/18 15:37 CONCLUSION: Chronic interstitial changes. No acute abnormality. Head MRI 05/29/18 15:41 CONCLUSION: 1. There is a 2.3 x 1.7 cm mass within the body of the left lateral ventricle measuring 2.3 x 1.7 cm. The left lateral ventricle is prominent may be related to production of CSF from this mass. 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 This mass may have hemorrhaged causing the blood layering in the lateral ventricles. 2. There is also a mass in the cerebellopontine angle on the left compressing upon the brainstem measuring 1.8 x 1.4 cm. 3. Chronic ischemic small vessel vasculopathy. Abdomen/Pelvis CT 05/30/18 00:00 CONCLUSION: 1. 1.3 cm left adrenal mass. Findings are concerning for metastatic disease given findings of brain metastasis and lung mass. 2. 1.6 cm indeterminate low-density lesion in the posterior right lobe of the liver with numerous additional subcentimeter hypodense lesions which are too small to fully characterize. Although metastatic disease cannot be entirely excluded, suspect these reflect cysts. 3. Colonic diverticulosis without evidence for diverticulitis. 4. Otherwise, no additional definitive evidence for metastatic disease to the abdomen or pelvis. Chest CT 05/30/18 00:00 CONCLUSION: 1. 1.6 x 1.1 cm spiculated right upper lobe lung nodule concerning for metastasis or primary lung malignancy. 2. Additional 3 mm subpleural nodules in the superior segment of the left lower lobe are nonspecific. 3. Mild atelectasis/scarring at the right lung base with more prominent airspace consolidation at the left lung base. 4. 1.1 x 1.4 cm soft tissue density abnormality emanating from the inferior lateral margin of the right breast implant which may reflect a focal disruption. However, cannot exclude an adjacent breast mass. Correlation with patient's history and prior breast imaging is recommended. Head CTA 05/31/18 00:00 CONCLUSION: 1. There is no evidence for intracranial aneurysm or stenosis. 2. Intraventricular mass as previously described. 3. There is no evidence for mass at the cerebellopontine angle. The finding on the recent MRI was likely related to pulsation artifact in this region. . Chest X-Ray 06/01/18 00:00 CONCLUSION: No acute cardiopulmonary disease identified. Chest X-Ray 06/05/18 00:00 CONCLUSION: 1. Right upper lobe nodule. 2. Bibasilar infiltrates. 3. Adequate placement of endotracheal tube. Head MRI 06/06/18 00:00 CONCLUSION: 1. 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 2. Intraventricular blood as described. Left lateral ventricle is slightly smaller. 3. Air and small amount of acute blood in the subdural spaces of both convexities. There is also small subdural blood in between the leaves of the falx. 4. Roughly 5 mm of rightward midline shift, improved. Chest X-Ray 06/08/18 06:00 CONCLUSION: Tracheostomy tube and nasogastric tube position. Lungs are grossly clear. Head CT 06/09/18 14:55 CONCLUSION: 1. Postoperative findings with ventriculostomy catheter in place, pneumocephalus, and moderate amount of intraventricular blood in the left occipital horn and minimal blood in the right occipital horn. 2. Ventricular size is similar to preoperative CT. No evidence of midline shift or mass effect. . Chest X-Ray 06/11/18 06:00 CONCLUSION: Basilar airspace disease similar to June 08. Endotracheal tube and nasogastric tube in good position. Chest X-Ray 06/11/18 18:00 CONCLUSION: 1. Endotracheal tube 1.6 cm above the claire. 2. Bibasilar consolidation. 3. Nodular density right upper lobe. Chest X-Ray 06/12/18 06:00 CONCLUSION: Endotracheal tube and nasogastric tube in good position. Basilar airspace disease not significantly changed from [address] 06/12/18 07:21 CONCLUSION: 1. 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 2. Improved pneumocephalus and intraventricular blood products. 3. No intercurrent acute hemorrhage, midline shift or hydrocephalus. . Chest X-Ray 06/13/18 06:00 CONCLUSION: Basilar airspace disease slightly improved from June 12. Endotracheal tube and nasogastric tube unchanged. Objective Remarks: GENERAL: This is a 78-year-old female currently orotracheally intubated SKIN: Warm and dry. HEAD: EVD in place. EYES: Pupils equal and round. About 2 mm bilaterally and reactive, no scleral icterus. No injection or drainage. ENT: No nasal bleeding or discharge. Mucous membranes pink and moist. NECK: Trachea midline. Orotracheal intubation CARDIOVASCULAR: Regular rate and rhythm. S1, S2 no S4. No murmur RESPIRATORY: Normal excursions on mechanical ventilation. Clear to auscultation. Breath sounds equal bilaterally. GASTROINTESTINAL: Abdomen soft, non-tender, nondistended. No guarding, bowel sounds active. MUSCULOSKELETAL: Extremities with 1 bilateral upper and lower extremity edema. Warm, well-perfused NEUROLOGICAL: Positive cough and gag. Pupils reactive. Arousable on the ventilator and opens eyes moves all left upper, left lower and right lower extremity. Some movement right upper extremity. GENERAL: SKIN: Warm and dry. HEAD: Atraumatic. Normocephalic. EYES: Pupils equal and round. No scleral icterus. No injection or drainage. ENT: No nasal bleeding or discharge. Mucous membranes pink and moist. NECK: Trachea midline. No JVD. CARDIOVASCULAR: Regular rate and rhythm. RESPIRATORY: No accessory muscle use. Clear to auscultation. Breath sounds equal bilaterally. GASTROINTESTINAL: Abdomen soft, non-tender, nondistended. Hepatic and splenic margins not palpable. MUSCULOSKELETAL: Extremities without clubbing, cyanosis, or edema. No obvious deformities. NEUROLOGICAL: Awake and alert. No obvious cranial nerve deficits. Motor grossly within normal limits. Five out of 5 muscle strength in the arms and legs. Normal speech. PSYCHIATRIC: Appropriate mood and affect; insight and judgment normal. Assessment and Plan - Problem List (1) Intraventricular hemorrhage, nontraumatic Code(s): I61.5 - Nontraumatic intracerebral hemorrhage, intraventricular Status: Acute (2) Hypertensive emergency Code(s): I16.1 - Hypertensive emergency Status: Acute (3) Metabolic encephalopathy Code(s): G93.41 - Metabolic encephalopathy Status: Acute (4) Altered mental status Code(s): R41.82 - Altered mental status, unspecified Status: Acute (5) History of peripheral arterial disease Code(s): Z86.79 - Personal history of other diseases of the circulatory system Status: Chronic (6) History of hypertension Code(s): Z86.79 - Personal history of other diseases of the circulatory system Status: Chronic (7) Cessation of tobacco use in previous 12 months Code(s): Z87.891 - Personal history of nicotine dependence Status: Chronic - Assessment and Plan Plan: NEURO/psych: 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 -Status post left craniotomy resection of tumor 06/0506/04/2018 (clopidogrel will be held for 7 days prior to surgery) -Oncology consult, also CT chest abdomen pelvis -right upper lobe mass with probable adrenal metastases cannot rule out liver metastases -Tight blood pressure control with nicardipine e and IV labetalol as needed, and PO meds, see below -Keep systolic blood pressure less than 150 -Supplement multivitamin thiamine given daily alcohol use -Watch closely for alcohol withdrawal -Mild alcohol withdrawal contributing to agitation -Use expected for agitation, Haldol as needed -EEG originally negative for seizures -Repeat EEG 1/23 field possible left frontal breakthrough. Loaded with fosphenytoin 1 g.. Start on 100 mg 3 times daily recheck level in a.m was 9.2 with free level around 17. Continue per neurology. -MRA 06/06 brain revealed left lateral ventricle resection, intervertebral hemorrhage slightly decreased. Small subdural hematoma. Postsurgical. Rightward shift 5 mm. -Sharp left frontal yesterday. Recheck EEG today Currently on fosphenytoin 200 mg every 8 hours. Level 18. Recheck in a.m. 06/13 On levetiracetam 1500 mg IV twice daily. Added lacosamide 50 mg twice daily per neurosurgery request Neurosurgery managing antiepileptics. Check EEG today RESP: Acute respiratory failure Previous tobacco use Right upper lobe speak with a mass -PRVC ventilation with ventilator bundle/head of bed at 30 degrees -Albuterol/ipratropium aerosols every 4 hours scheduled and as needed albuterol aerosols every 2 hours as needed -Pulmonology consulted for right upper lobe mass concerning for primary malignancy, with adrenal mass -Pulmonary Dr. Evans suggesting CT-guided biopsy and PET scan once clinically more stable and neuro surgery completed -Reintubated and ISC after PACU 06/05. -Spontaneous breathing trials today again, attempt extubation when she can protect her airway. CV: Hypertensive emergency History of hypertension Peripheral arterial disease -Normal saline IV fluids 84 mL/h discontinue -Clevidipine nfusion and, IV labetalol as needed for systolic blood pressure less than 150 -Continue home enalapril 40 mg daily and amlodipine 5 mg daily increased to 10 mg daily, continue pravastatin [address] Quintero Added metoprolol tartrate 50 mg twice daily -Continue holding clopidogrel until cleared by neurosurgery -Decrease platelet activity noted on 06/01 -INR, PT, PTT normal - GI: Left adrenal mass 1.3 x 1.2 cm Colonic diverticulosis Right liver mass versus cyst Elevated LFTs -Currently n.p.o. status, lansoprazole for GI prophylax. Docusate sodium/senna 1 tablet twice daily for bowel regimen -Continue tube feedings with vital 1.5 goal 50 cc an hour -Check ammonia level in a.m. : -Monitor renal function closely. ID: Enterobacter cloaca K/strep pneumonia -Day #2 piperacillin/tazobactam. Switch to ceftriaxone 1 g daily. HEME: Leukocytosis Macrocytic anemia -Oncology. 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 Kapadia. Pathology still pending FEN/ENDO: Hypophosphatemia -Electrolyte replacement per protocol PROPH: -Bilateral lower extremity SCDs. Avoid chemical DVT prophylaxis until after surgery. LINES: -Utilize peripheral IVs, central line if needed Level 2 follow-up (4) Altered mental status Qualifiers: Altered mental status type: unspecified Qualified Code(s): R41.82 - Altered mental status, unspecified
--- NOTE | 2018-06-13 19:30 | P.PN ---
Subjective Interval history: Remains intubated and tolerated CPAP for up to 2 hours. Has thick greenish yellow mucus secretions from trach. Urine output is adequate. Seems more awake today. Physical Exam Vital signs: Vital Signs 06/12/18 19:56 06/12/18 20:00 06/12/18 21:00 Temperature 99.4 F Pulse Rate 97 H 91 H 103 H Respiratory Rate 12 13 13 Blood Pressure 155/89 H 143/61 H Pulse Oximetry 95 95 97 06/12/18 22:00 06/12/18 23:00 06/13/18 00:00 Temperature 99.0 F Pulse Rate 100 H 93 H 91 H Respiratory Rate 13 14 14 Blood Pressure 133/61 125/60 119/58 L Pulse Oximetry 96 98 97 06/13/18 01:00 06/13/18 01:17 06/13/18 02:00 Temperature Pulse Rate 90 88 Respiratory Rate 13 13 Blood Pressure 119/54 L Pulse Oximetry 96 96 06/13/18 04:00 06/13/18 04:09 06/13/18 05:00 Temperature Pulse Rate 101 H 101 H 93 H Respiratory Rate 13 Blood Pressure 107/51 L Pulse Oximetry 97 97 06/13/18 06:00 06/13/18 07:00 06/13/18 08:00 Temperature 98.7 F Pulse Rate 92 H 103 H 106 H Respiratory Rate Blood Pressure 117/55 L 164/63 H 146/70 H Pulse Oximetry 94 L 98 98 06/13/18 08:50 06/13/18 09:00 06/13/18 10:00 Temperature Pulse Rate 106 H 109 H 101 H Respiratory Rate 13 Blood Pressure 124/55 L 114/53 L Pulse Oximetry 97 98 98 06/13/18 11:00 06/13/18 11:59 06/13/18 12:00 Temperature 98.8 F Pulse Rate 96 H 95 H Respiratory Rate 17 Blood Pressure 115/56 L 128/60 Pulse Oximetry 99 100 100 06/13/18 13:00 06/13/18 14:00 06/13/18 15:00 Temperature 99.1 F Pulse Rate 82 83 83 Respiratory Rate Blood Pressure 125/60 92/54 L Pulse Oximetry 100 100 98 06/13/18 16:00 06/13/18 17:00 06/13/18 17:02 Temperature Pulse Rate 96 H 81 89 Respiratory Rate Blood Pressure 110/59 L 141/62 H Pulse Oximetry 96 100 100 06/13/18 17:45 06/13/18 18:00 Temperature Pulse Rate 82 81 Respiratory Rate 12 Blood Pressure 157/75 H Pulse Oximetry 100 100 Intake & Output 06/13/18 06/13/18 06/14/18 06:59 18:59 06:59 Intake Total 1026 / 1026 1355 / 1355 Output Total 330 / 330 500 / 500 Balance 696 / 696 855 / 855 Weight 70.4 kg Intake: IV 474 / 474 888 / 888 Cerebyx Inj 200 MGPE In NS Inj 54 / 54 108 / 108 50 ML @ 216 mls/hr IV.SIG Q8HR ALEX[facility] Rx#:[id number] Vimpat Inj 50 MG In NS Inj 100 105 / 105 105 / 105 ML @ 105 mls/hr IV.SIG Q12H A[facility] Rx#:[id number] Zosyn 4.5 GM Premix 4.5 gm In 200 / 200 100 / 100 100 ml @ 200 mls/hr IV.SIG Q6H [facility] Rx#:[id number] KCl 20 mEq Premix Inj 20 meq In 100 / 100 100 ml @ 50 mls/hr IV.SIG Q2H PRN Rx#:[id number] Potassium Phosphate Inj 30 MMOL 260 / 260 In NS Inj 250 ML @ 43.333 mls/ hr IV.SIG ONCE ONE Rx#:[id number] Rocephin Inj 1,000 MG In NS Inj 100 / 100 100 ML @ 200 mls/hr IV.SIG Q24H [facility] Rx#:[id number] Keppra Inj 1,500 MG In NS Inj 115 / 115 115 / 115 100 ML @ 400 mls/hr IV.SIG Q12H ALEXIS Rx#:[id number] Tube Feeding 552 / 552 467 / 467 Output: Urine Amount (Catheter) 300 / 300 500 / 500 Indwelling Urethral Catheter 300 / 300 500 / 500 Intracranial Drainage Ventricle Left Temporoparietal Other: Date of Last Bowel Movement 06/13/18 06/13/18 # Bowel Movements 2 0 Narrative: GENERAL: Elderly white female intubated and responds. SKIN: Warm and dry. HEAD: Atraumatic. Normocephalic. EYES: Pupils equal and round. No scleral icterus. No injection or drainage. ENT: No nasal bleeding or discharge. Mucous membranes pink and moist. NECK: Trachea midline. No JVD. CARDIOVASCULAR: Regular rate and rhythm. RESPIRATORY: No accessory muscle use. Few coarse wheezes bilaterally . Breath sounds equal bilaterally. GASTROINTESTINAL: Abdomen soft, non-tender, nondistended. Hepatic and splenic margins not palpable. MUSCULOSKELETAL: Extremities without clubbing, cyanosis, or edema. No obvious deformities. NEUROLOGICAL: Awake and alert. No obvious cranial nerve deficits. Motor grossly within normal limits.Normal speech. PSYCHIATRIC: Appropriate mood and affect. Patient is intubated. She is awake, nodding appropriately and trying to mouth words. - Urinary Catheter Management Female External Cath placed during this visit: no Reason for continuing: Not indwelling catheter Indwelling Urethral Catheter Cath placed during this visit: yes Reason for continuing: Hourly intake/output Insertion date: 06/05/18 Insertion time: 08:30 Results - Labs CBC & Chem 7: 06/13/18 04:03 06/13/18 10:02 Laboratory Results - last 24 hr 06/13/18 06/13/18 04:03 10:02 WBC 14.0 H RBC 2.97 L Hgb 9.9 L Hct 29.7 L MCV 100.0 MCH 33.3 MCHC 33.3 RDW 14.8 Plt Count 289 MPV 8.3 Prelim Diff (Auto) Slide review pending Neut % (Auto) 86.7 H Lymph % (Auto) 8.1 L [place] % (Auto) 4.1 Eos % (Auto) 0.7 Baso % (Auto) 0.4 Neut # (Auto) 12.1 H Lymph # (Auto) 1.1 [place] # (Auto) 0.6 Eos # (Auto) 0.1 Baso # (Auto) 0.1 WBC Differential Manual diff final Seg Neuts % (Manual) 73 H Band Neuts % (Manual) 12 H Lymphocytes % (Manual) 8 L Monocytes % (Manual) 4 Myelocytes % (Man) 3 H Abs Neuts (Manual) 12.3 H Differential Comment . Toxic Granulation 1+ H Platelet Estimate Normal Platelet Morphology Clumped H Sodium 141 Potassium 3.5 Chloride 107 Carbon Dioxide 25.9 Anion Gap 8 BUN 15 Creatinine 0.38 L Estimated GFR Greater than 89 Random Glucose 169 H Calcium 7.5 L Phosphorus 3.8 D Magnesium 2.1 Total Bilirubin 0.2 Direct Bilirubin 0.1 Indirect Bilirubin 0.1 AST 75 H ALT 121 H Alkaline Phosphatase 139 H Total Protein 5.9 L Albumin 1.8 L Phenytoin 15.6 Microbiology 06/11/18 18:40 Sputum - Endotracheal Gram Stain - Final 06/11/18 18:40 Sputum - Endotracheal Sputum Culture - Final Enterobacter cloacae Beta Strep not group A - Imaging Impressions Chest X-Ray 06/13/18 06:00 CONCLUSION: Basilar airspace disease slightly improved from June 12. Endotracheal tube and nasogastric tube unchanged. Assessment and Plan - Assessment (1) COPD (chronic obstructive pulmonary disease) Code(s): J44.9 - Chronic obstructive pulmonary disease, unspecified Status: Acute (2) Right upper lobe pulmonary nodule Code(s): R91.1 - Solitary pulmonary nodule Status: Acute (3) Intraventricular hemorrhage, nontraumatic Code(s): I61.5 - Nontraumatic intracerebral hemorrhage, intraventricular Status: Acute (4) Hypertensive emergency Code(s): I16.1 - Hypertensive emergency Status: Acute (5) Metabolic encephalopathy Code(s): G93.41 - Metabolic encephalopathy Status: Acute (6) Altered mental status Code(s): R41.82 - Altered mental status, unspecified Status: Acute (7) History of peripheral arterial disease Code(s): Z86.79 - Personal history of other diseases of the circulatory system Status: Chronic (8) History of hypertension Code(s): Z86.79 - Personal history of other diseases of the circulatory system Status: Chronic (9) Cessation of tobacco use in previous 12 months Code(s): Z87.891 - Personal history of nicotine dependence Status: Chronic - Plan 1 continue to do CPAP 5 x 12 trials daily, and FiO2 35% 2. Continue DuoNeb nebs 4 times daily. 3. CBC BMP chest x-ray in a.m. 4. Workup for lung mass when clinically stable 5. Continue antibiotics as ordered 6 Symbicort 160 about 4.5 mcg 1 puff twice daily 7. Solu-Medrol 20 mg IV twice daily 8. Continue antibiotics as ordered (6) Altered mental status Qualifiers: Altered mental status type: unspecified Qualified Code(s): R41.82 - Altered mental status, unspecified
[2018-06-14] MEDS: Fosphenytoin Inj 200 MGPE in Sodium Chlor 0.9% Inj 50 ML IV.SIG SCH ×4 (00:19→21:25)
[2018-06-14] MEDS: levETIRAcetam Inj 1,500 MG in Sodium Chlor 0.9% Inj 100 ML IV.SIG SCH ×3 (01:14→23:50)
[2018-06-14] MEDS: Artificial Tears Opth Drops 15 ML Bottle EACH EYE SCH ×3 (04:30→21:21)
--- NOTE | 2018-06-14 05:38 | XR ---
EXAM DATE: 06/14/2018 5:25 AM EST AGE/SEX: 78 years / Female INDICATIONS: Short of breath. CLINICAL DATA: This is the patient's subsequent encounter. Patient reports that signs and symptoms h ave been present for 1 week and indicates a pain score of 0/10. MEDICAL/SURGICAL HISTORY: Cerebrovascular disease. Non-responsive. COMPARISON: [facility], CHEST 1V SINGLE AP, 06/13/2018. . FINDINGS: Endotracheal tube in good position. NG enters stomach. Scattered densities in the lungs are stable fr om June 13. No new infiltrate or effusion. CONCLUSION: Stable exam from June 13. Electronically signed by: Bernabe Alvarez MD Board Certified Radiologist 06/14/2018 5:37 AM EST
[2018-06-14 05:43] LABS: Baso # (Auto) 0.1 th/mm3 (0.0-0.2); Baso % (Auto) 0.5 % (0.0-2.0); Eos # (Auto) 0.3 th/mm3 (0.0-0.4); Eos % (Auto) 2.3 % (0.0-4.0); Hematocrit 27.4 % (35.0-46.0); Hemoglobin 9.3 gm/dL (11.6-15.3); Lymph # (Auto) 1.4 th/mm3 (1.0-4.8); Mean Corpuscular HGB Conc 33.9 % (32.0-36.0); Mean Corpuscular Hemoglobin 33.6 pg (27.0-34.0); Mean Corpuscular Volume 99.1 fL (80.0-100.0); Mean Platelet Volume 8.1 fL (7.0-11.0); Mono # (Auto) 0.7 th/mm3 (0.0-0.9); Mono % (Auto) 5.6 % (0.0-8.0); Neut # (Auto) 9.5 th/mm3 (1.8-7.7); Neut % (Auto) 79.6 % (16.0-70.0); Platelet Count 262 th/mm3 (150-450); Red Blood Count 2.76 mil/mm3 (4.00-5.30); Red Cell Distribution Width 14.1 % (11.6-17.2); White Blood Count 11.9 th/mm3 (4.0-11.0)
[2018-06-14 06:05] LABS: Anion Gap 8 meq/L (5-15); Blood Urea Nitrogen 13 mg/dL (7-18); Calcium 7.5 mg/dL (8.5-10.1); Carbon Dioxide 26.4 meq/L (21.0-32.0); Chloride 106 meq/L (98-107); Glomerular Filtration Rate Greater Than 89 mL/min (>89); Glucose,Random 138 mg/dL (74-106); Magnesium 2.1 mg/dL (1.5-2.5); Potassium 3.5 meq/L (3.5-5.1); Sodium 140 meq/L (136-145)
[2018-06-14 06:07] LABS: Phenytoin (Dilantin) 14.1 mcg/mL (10.0-20.0); Phosphorus 2.8 mg/dL (2.5-4.9)
[2018-06-14] MEDS: Lacosamide Inj 50 MG in Sodium Chlor 0.9% Inj 100 ML IV.SIG SCH ×2 (06:21→16:28)
[2018-06-14 06:58] LABS: Platelet Estimate Normal (Normal); Platelet Morphology Clumped (Normal)
[2018-06-14] MEDS: Metoprolol Tartrate 50 MG Tablet PO SCH ×2 (09:53→21:22)
[2018-06-14] MEDS: Enoxaparin Inj 40 MG/0.4 ML Syringe SQ SCH (09:53)
[2018-06-14] MEDS: MethylPREDNISolone Sod Succinate Inj 40 MG/ML Vial IV.PUSH SCH ×2 (09:53→21:23)
[2018-06-14] MEDS: Pantoprazole Inj 40 MG Vial IV.PUSH SCH (09:54)
[2018-06-14] MEDS: Sodium Chloride 1 GM Tablet PO SCH ×2 (09:54→21:23)
[2018-06-14] MEDS: Senna/Docusate Sodium 8.6/50 MG Tablet PO SCH ×2 (09:55→21:22)
[2018-06-14] MEDS: Lisinopril 20 MG Tablet PO SCH (09:55)
[2018-06-14] MEDS: amLODIPine 5 MG Tablet PO SCH (09:58)
[2018-06-14] MEDS: Budesonide-Formoterol 160/4.5 MCG 6 GM Inhaler INH SCH ×2 (09:59→21:24)
--- NOTE | 2018-06-14 12:51 | P.PN ---
Subjective Interval history: She is awake and remains intubated. Stable on CPAP and FiO2 of 35%. Failed CPAP trial yesterday. Trach secretions brownish. Urine output remains good. Physical Exam Vital signs: Vital Signs 06/13/18 13:00 06/13/18 14:00 06/13/18 15:00 Temperature 99.1 F Pulse Rate 82 83 83 Respiratory Rate Blood Pressure 125/60 92/54 L Pulse Oximetry 100 100 98 06/13/18 16:00 06/13/18 17:00 06/13/18 17:02 Temperature Pulse Rate 96 H 81 89 Respiratory Rate Blood Pressure 110/59 L 141/62 H Pulse Oximetry 96 100 100 06/13/18 17:45 06/13/18 18:00 06/13/18 19:00 Temperature Pulse Rate 82 81 85 Respiratory Rate 12 Blood Pressure 157/75 H 131/58 L Pulse Oximetry 100 100 99 06/13/18 20:00 06/13/18 20:25 06/13/18 20:27 Temperature 99.2 F Pulse Rate 86 88 Respiratory Rate 13 12 Blood Pressure 111/54 L Pulse Oximetry 99 100 06/13/18 20:32 06/13/18 21:00 06/13/18 22:00 Temperature Pulse Rate 92 H 83 75 Respiratory Rate Blood Pressure 145/65 H 124/56 L 131/63 Pulse Oximetry 100 100 99 06/13/18 23:00 06/14/18 00:00 06/14/18 00:02 Temperature 99.2 F Pulse Rate 79 80 91 H Respiratory Rate Blood Pressure 103/51 L 167/79 H 151/65 H Pulse Oximetry 99 99 99 06/14/18 00:34 06/14/18 01:00 06/14/18 02:00 Temperature Pulse Rate 86 80 79 Respiratory Rate Blood Pressure 129/58 L 124/60 134/60 Pulse Oximetry 98 97 98 06/14/18 03:00 06/14/18 04:00 06/14/18 04:08 Temperature Pulse Rate 81 88 Respiratory Rate 14 Blood Pressure 134/62 120/58 L Pulse Oximetry 99 98 98 06/14/18 04:10 06/14/18 05:00 06/14/18 06:00 Temperature Pulse Rate 85 87 90 Respiratory Rate 12 Blood Pressure 124/57 L 137/62 Pulse Oximetry 98 98 06/14/18 07:00 06/14/18 08:00 06/14/18 08:35 Temperature 99.5 F Pulse Rate 82 79 90 Respiratory Rate 12 Blood Pressure 122/58 L 126/61 Pulse Oximetry 98 98 98 06/14/18 09:00 06/14/18 10:00 06/14/18 11:00 Temperature Pulse Rate 92 H 96 H 87 Respiratory Rate Blood Pressure 130/60 135/60 128/59 L Pulse Oximetry 99 98 99 Intake & Output 06/13/18 06/14/18 06/14/18 18:59 06:59 18:59 Intake Total 1355 / 1355 795 / 795 220 / 220 Output Total 500 / 500 455 / 455 Balance 855 / 855 340 / 340 220 / 220 Weight 71 kg Intake: IV 888 / 888 223 / 223 220 / 220 Cerebyx Inj 200 MGPE In NS Inj 108 / 108 108 / 108 50 ML @ 216 mls/hr IV.SIG Q8HR [facility] Rx#:[id number] Vimpat Inj 50 MG In NS Inj 100 105 / 105 105 / 105 ML @ 105 mls/hr IV.SIG Q12H [facility] Rx#:[id number] Zosyn 4.5 GM Premix 4.5 gm In 100 / 100 100 ml @ 200 mls/hr IV.SIG Q6H [facility] Rx#:[id number] KCl 20 mEq Premix Inj 20 meq In 100 / 100 100 ml @ 50 mls/hr IV.SIG Q2H PRN Rx#:[id number] Potassium Phosphate Inj 30 MMOL 260 / 260 In NS Inj 250 ML @ 43.333 mls/ hr IV.SIG ONCE ONE Rx#:[id number] Rocephin Inj 1,000 MG In NS Inj 100 / 100 100 ML @ 200 mls/hr IV.SIG Q24H [facility] Rx#:[id number] Keppra Inj 1,500 MG In NS Inj 115 / 115 115 / 115 115 / 115 100 ML @ 400 mls/hr IV.SIG Q12H [facility] Rx#:[id number] Tube Feeding 467 / 467 572 / 572 Output: Urine Amount (Catheter) 500 / 500 425 / 425 Indwelling Urethral Catheter 500 / 500 425 / 425 Intracranial Drainage Ventricle Left Temporoparietal Other: Date of Last Bowel Movement 06/13/18 06/14/18 06/14/18 # Bowel Movements 0 1 Narrative: GENERAL: Elderly white female intubated and responds to command. SKIN: Warm and dry. HEAD: Atraumatic. Normocephalic. EYES: Pupils equal and round. No scleral icterus. No injection or drainage. ENT: No nasal bleeding or discharge. Mucous membranes pink and moist. NECK: Trachea midline. No JVD. CARDIOVASCULAR: Regular rate and rhythm. RESPIRATORY: Few coarse wheezes bilaterally . Breath sounds distant. GASTROINTESTINAL: Abdomen soft, non-tender, nondistended. Hepatic and splenic margins not palpable. MUSCULOSKELETAL: Extremities without clubbing, cyanosis, or edema. No obvious deformities. NEUROLOGICAL: Partially sedated on ventilator support Patient is intubated. She is awake, nodding appropriately . - Urinary Catheter Management Female External Cath placed during this visit: no Reason for continuing: Not indwelling catheter Indwelling Urethral Catheter Cath placed during this visit: yes Reason for continuing: Hourly intake/output Insertion date: 06/05/18 Insertion time: 08:30 Results - Labs CBC & Chem 7: 06/14/18 04:46 06/14/18 04:46 Laboratory Results - last 24 hr 06/14/18 06/14/18 04:46 04:46 WBC 11.9 H RBC 2.76 L Hgb 9.3 L Hct 27.4 L MCV 99.1 MCH 33.6 MCHC 33.9 RDW 14.1 Plt Count 262 MPV 8.1 Neut % (Auto) 79.6 H Lymph % (Auto) 12.0 [place] % (Auto) 5.6 Eos % (Auto) 2.3 Baso % (Auto) 0.5 Neut # (Auto) 9.5 H Lymph # (Auto) 1.4 [place] # (Auto) 0.7 Eos # (Auto) 0.3 Baso # (Auto) 0.1 WBC Differential . Diff Scan Auto diff confirmed Differential Comment Auto diff final Platelet Estimate Normal Platelet Morphology Clumped H Sodium 140 Potassium 3.5 Chloride 106 Carbon Dioxide 26.4 Anion Gap 8 BUN 13 Creatinine 0.23 L Estimated GFR Greater than 89 Random Glucose 138 H Calcium 7.5 L Phosphorus 2.8 D Magnesium 2.1 Phenytoin 14.1 Microbiology 06/11/18 18:40 Sputum - Endotracheal Gram Stain - Final 06/11/18 18:40 Sputum - Endotracheal Sputum Culture - Final Enterobacter cloacae Beta Strep not group A - Imaging Impressions Chest X-Ray 06/14/18 06:00 CONCLUSION: Stable exam from June 13. Assessment and Plan - Assessment (1) COPD (chronic obstructive pulmonary disease) Code(s): J44.9 - Chronic obstructive pulmonary disease, unspecified Status: Acute (2) Right upper lobe pulmonary nodule Code(s): R91.1 - Solitary pulmonary nodule Status: Acute (3) Intraventricular hemorrhage, nontraumatic Code(s): I61.5 - Nontraumatic intracerebral hemorrhage, intraventricular Status: Acute (4) Hypertensive emergency Code(s): I16.1 - Hypertensive emergency Status: Acute (5) Metabolic encephalopathy Code(s): G93.41 - Metabolic encephalopathy Status: Acute (6) Altered mental status Code(s): R41.82 - Altered mental status, unspecified Status: Acute (7) History of peripheral arterial disease Code(s): Z86.79 - Personal history of other diseases of the circulatory system Status: Chronic (8) History of hypertension Code(s): Z86.79 - Personal history of other diseases of the circulatory system Status: Chronic (9) Cessation of tobacco use in previous 12 months Code(s): Z87.891 - Personal history of nicotine dependence Status: Chronic - Plan 1 continue CPAP trials 5 x 12 daily, and FiO2 35% 2. Continue DuoNeb nebs 4 times daily. 3. CBC BMP chest x-ray in a.m. 4. Workup for lung mass when clinically stable 5. Continue antibiotics as ordered 6 Symbicort 160 about 4.5 mcg 1 puff twice daily 7. Solu-Medrol 20 mg IV twice daily 8. Continue antibiotics as ordered 9. Tube feedings at 50 cc/h Jevity (6) Altered mental status Qualifiers: Qualified Code(s): R41.82 - Altered mental status, unspecified
--- NOTE | 2018-06-14 12:54 | P.PNNS ---
Subjective Interval history: intubated, awake, alert. <Samanta Banda - Last Filed: 06/14/18 12:45> Physical Exam Vital signs: Vital Signs 06/13/18 13:00 06/13/18 14:00 06/13/18 15:00 Temperature 99.1 F Pulse Rate 82 83 83 Respiratory Rate Blood Pressure 125/60 92/54 L Pulse Oximetry 100 100 98 06/13/18 16:00 06/13/18 17:00 06/13/18 17:02 Temperature Pulse Rate 96 H 81 89 Respiratory Rate Blood Pressure 110/59 L 141/62 H Pulse Oximetry 96 100 100 06/13/18 17:45 06/13/18 18:00 06/13/18 19:00 Temperature Pulse Rate 82 81 85 Respiratory Rate 12 Blood Pressure 157/75 H 131/58 L Pulse Oximetry 100 100 99 06/13/18 20:00 06/13/18 20:25 06/13/18 20:27 Temperature 99.2 F Pulse Rate 86 88 Respiratory Rate 13 12 Blood Pressure 111/54 L Pulse Oximetry 99 100 06/13/18 20:32 06/13/18 21:00 06/13/18 22:00 Temperature Pulse Rate 92 H 83 75 Respiratory Rate Blood Pressure 145/65 H 124/56 L 131/63 Pulse Oximetry 100 100 99 06/13/18 23:00 06/14/18 00:00 06/14/18 00:02 Temperature 99.2 F Pulse Rate 79 80 91 H Respiratory Rate Blood Pressure 103/51 L 167/79 H 151/65 H Pulse Oximetry 99 99 99 06/14/18 00:34 06/14/18 01:00 06/14/18 02:00 Temperature Pulse Rate 86 80 79 Respiratory Rate Blood Pressure 129/58 L 124/60 134/60 Pulse Oximetry 98 97 98 06/14/18 03:00 06/14/18 04:00 06/14/18 04:08 Temperature Pulse Rate 81 88 Respiratory Rate 14 Blood Pressure 134/62 120/58 L Pulse Oximetry 99 98 98 06/14/18 04:10 06/14/18 05:00 06/14/18 06:00 Temperature Pulse Rate 85 87 90 Respiratory Rate 12 Blood Pressure 124/57 L 137/62 Pulse Oximetry 98 98 06/14/18 07:00 06/14/18 08:00 06/14/18 08:35 Temperature 99.5 F Pulse Rate 82 79 90 Respiratory Rate 12 Blood Pressure 122/58 L 126/61 Pulse Oximetry 98 98 98 06/14/18 09:00 06/14/18 10:00 06/14/18 11:00 Temperature Pulse Rate 92 H 96 H 87 Respiratory Rate Blood Pressure 130/60 135/60 128/59 L Pulse Oximetry 99 98 99 Intake & Output 06/13/18 06/14/18 06/14/18 18:59 06:59 18:59 Intake Total 1355 / 1355 795 / 795 220 / 220 Output Total 500 / 500 455 / 455 Balance 855 / 855 340 / 340 220 / 220 Weight 71 kg Intake: IV 888 / 888 223 / 223 220 / 220 Cerebyx Inj 200 MGPE In NS Inj 108 / 108 108 / 108 50 ML @ 216 mls/hr IV.SIG Q8HR [facility] Rx#:[id number] Vimpat Inj 50 MG In NS Inj 100 105 / 105 105 / 105 ML @ 105 mls/hr IV.SIG Q12H [facility] Rx#:[id number] Zosyn 4.5 GM Premix 4.5 gm In 100 / 100 100 ml @ 200 mls/hr IV.SIG Q6H [facility] Rx#:[id number] KCl 20 mEq Premix Inj 20 meq In 100 / 100 100 ml @ 50 mls/hr IV.SIG Q2H PRN Rx#:[id number] Potassium Phosphate Inj 30 MMOL 260 / 260 In NS Inj 250 ML @ 43.333 mls/ hr IV.SIG ONCE ONE Rx#:[id number] Rocephin Inj 1,000 MG In NS Inj 100 / 100 100 ML @ 200 mls/hr IV.SIG Q24H [facility] Rx#:[id number] Keppra Inj 1,500 MG In NS Inj 115 / 115 115 / 115 115 / 115 100 ML @ 400 mls/hr IV.SIG Q12H [facility] Rx#:[id number] Tube Feeding 467 / 467 572 / 572 Output: Urine Amount (Catheter) 500 / 500 425 / 425 Indwelling Urethral Catheter 500 / 500 425 / 425 Intracranial Drainage Ventricle Left Temporoparietal Other: Date of Last Bowel Movement 06/13/18 06/14/18 06/14/18 # Bowel Movements 0 1 Narrative: Patient is intubated. She is awake, alert, interacting, nodding appropriately and trying to mouth words. follows commands extremities, weaker on the right. pupils are equal. wound with dressing clean dry and intact. Ventriculostomy drain in place at 15 mmHg. - Urinary Catheter Management Female External Cath placed during this visit: no Reason for continuing: Not indwelling catheter Indwelling Urethral Catheter Cath placed during this visit: yes Reason for continuing: Hourly intake/output Insertion date: 06/05/18 Insertion time: 08:30 <Samanta Banda - Last Filed: 06/14/18 12:45> Vital signs: Vital Signs 06/14/18 16:00 06/14/18 16:21 06/14/18 17:00 Temperature 99.2 F Pulse Rate 96 H 93 H 95 H Respiratory Rate 20 Blood Pressure 122/60 123/59 L Pulse Oximetry 99 99 97 06/14/18 18:00 06/14/18 19:00 06/14/18 19:58 Temperature 98.5 F Pulse Rate 98 H 102 H 99 H Respiratory Rate 29 H Blood Pressure 127/61 124/60 Pulse Oximetry 97 98 06/14/18 19:59 06/14/18 20:00 06/14/18 21:00 Temperature Pulse Rate 100 H 95 H Respiratory Rate 19 Blood Pressure 125/58 L 126/59 L Pulse Oximetry 99 99 99 06/14/18 22:00 06/14/18 23:00 06/14/18 23:26 Temperature Pulse Rate 76 78 Respiratory Rate 26 H Blood Pressure 102/52 L 116/55 L Pulse Oximetry 99 99 98 06/15/18 00:00 06/15/18 00:11 06/15/18 01:00 Temperature Pulse Rate 80 85 80 Respiratory Rate Blood Pressure 144/63 H 145/67 H 99/53 L Pulse Oximetry 99 99 99 06/15/18 01:22 06/15/18 02:00 06/15/18 03:00 Temperature Pulse Rate 83 87 74 Respiratory Rate Blood Pressure 127/57 L 127/60 93/48 L Pulse Oximetry 100 99 99 06/15/18 03:28 06/15/18 04:00 06/15/18 05:00 Temperature 98.5 F Pulse Rate 79 84 Respiratory Rate 12 Blood Pressure 152/65 H 111/55 L Pulse Oximetry 99 97 06/15/18 06:00 06/15/18 07:00 06/15/18 07:26 Temperature Pulse Rate 80 85 83 Respiratory Rate 18 Blood Pressure 167/73 H Pulse Oximetry 99 99 98 06/15/18 08:00 06/15/18 09:00 06/15/18 10:00 Temperature 98.4 F Pulse Rate 84 85 77 Respiratory Rate Blood Pressure 148/67 H 153/69 H 131/61 Pulse Oximetry 99 99 100 06/15/18 10:47 06/15/18 11:00 06/15/18 11:10 Temperature Pulse Rate 98 H 81 Respiratory Rate 23 Blood Pressure 138/63 Pulse Oximetry 100 98 100 06/15/18 12:00 06/15/18 13:00 06/15/18 14:00 Temperature 99.3 F Pulse Rate 79 86 81 Respiratory Rate 18 Blood Pressure 135/60 130/60 140/61 Pulse Oximetry 100 100 99 06/15/18 15:17 Temperature Pulse Rate 88 Respiratory Rate 15 Blood Pressure Pulse Oximetry 100 Intake & Output 06/14/18 06/15/18 06/15/18 18:59 06:59 18:59 Intake Total 743 / 743 724 / 724 220 / 220 Output Total 400 / 400 600 / 600 Balance 343 / 343 124 / 124 220 / 220 Weight 62.2 kg Intake: IV 479 / 479 223 / 223 220 / 220 Cerebyx Inj 200 MGPE In NS Inj 54 / 54 108 / 108 50 ML @ 216 mls/hr IV.SIG Q8HR [facility] Rx#:[id number] Vimpat Inj 50 MG In NS Inj 100 210 / 210 105 / 105 ML @ 105 mls/hr IV.SIG Q12H [facility] Rx#:[id number] Rocephin Inj 1,000 MG In NS Inj 100 / 100 100 ML @ 200 mls/hr IV.SIG Q24H [facility] Rx#:[id number] Keppra Inj 1,500 MG In NS Inj 115 / 115 115 / 115 115 / 115 100 ML @ 400 mls/hr IV.SIG Q12H [facility] Rx#:[id number] Tube Feeding 264 / 264 501 / 501 Output: Urine 600 / 600 Urine Amount (Catheter) 400 / 400 Indwelling Urethral Catheter 400 / 400 Other: Date of Last Bowel Movement 06/14/18 06/15/18 06/15/18 # Bowel Movements 1 - Urinary Catheter Management Female External Cath placed during this visit: no Indwelling Urethral Catheter Cath placed during this visit: no <Duke Palacios - Last Filed: 06/15/18 15:44> Assessment and Plan - Plan 78 yo female with vague constellation of symptoms GCS-[address] shows 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 hemorrhagic mass Will follow with you 05/30/18: cont neuro checks in ICU Dr. 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 at midnight on Monday night into Monday Minimize sedating meds, etc. 06/03/18: Appears to be a bit more encephalopathic today, possible contribution of hospital delirium versus her mild hydrocephalus, though favor delirium since her level of alertness remains stable Dr. 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 at midnight tonight Continue to minimize sedating meds, etc. 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 Palacios 06/06/18: POD #1. pt had seizure last night requiring intubation. She has been started on Keppra for seizures. On exam she opens eyes and follows commands. Postoperative MRI Brain w/wo contrast has been ordered and pending. Obtain EEG to assess seizures. Continue ventriculostomy draining, add ICP monitoring. Start sq lovenox for dvt prophylaxis. Will follow. 06/07/18: POD #2. patient neurologically stable, opens eyes and follows commands. Postoperative MRI Brain reviewed by neurosurgery team. Spot EEG reports no ongoing seizures, with high amplitude sharp waves on left?breach rhythm. Critical care plans on extubation today. Continue ventriculostomy draining at 10 mmHg. Final pathology pending. Neurology following for seizure management. Will follow. 06/08/18: POD #3. patient neurologically stable, opens eyes and follows commands. Ventriculostomy draining well with controlled ICPs, will continue at 10mmHg. Pathology still pending. cont seizure management per Neurology. dw critical care. will follow. 06/09/2018 POD#4 Remains Neurologically stable, follows commands Stop sedation wean ventilator to CPAP 5 x 12 and FiO2 30% Continue DuoNeb nebs 4 times daily. Check respiratory parameters and consider extubation Agree with Symbicort 160 about 4.5 mcg 1 puff twice daily and Solu-Medrol 40 mg IV twice daily Continue EVD Would maintain SBP 140-160 to improve CPP. 06/10/2018 POD#5 Seizure yesterday, and last night, have increased Cerebyx and Keppra D/C'ed [place]bs would prefer to maintain on 2 agents and high therapeutic levels of Cerebyx, usually best with brain tumors Free Dilantin levels not easily obtainable here. Lets keep level around 20 with standard level remains Neurologically stable wean ventilator to CPAP 5 x 12 and FiO2 30% and if OK, may extubate from Neurosurgical standpoint. 06/11/18 POD #6 seizures controlled overnight, will continue Cerebyx 200 tid and Keppra 1500 bid. Dilantin levels 17.6 today continue critical care - vent weaning - CPAP trials cont EVD draining at 5 mmHg final pathology still pending will follow 06/12/18 POD #7 pt failed extubation yesterday, reintubated- critical care managing repeat EEG 06/11/18 abnormal with sharp activities left hemisphere dilantin levels 18.8 this morning cont current anticonvulsants, will repeat EEG today obtained follow up CT Brain this morning which was reviewed by Dr. Perdue, EVD raised to 15 mmHg neuro exam today appears better final pathology still pending 06/13/18 POD #8 neurologically she is awake, alert EEG yesterday 06/12/18 - mod encephalopathy, no reports of any seizure activities cont current anticonvulsants, Dilantin levels trending up pending today, started on Zosyn for gram neg rods in sputum - per critical care cont EVD challenge, cont at 15 mmHg today, plan to clamp tomorrow will follow 06/14/18 POD #9 neurologically remains awake and alert Ventriculostomy drain clamped today, follow up CT Head tomorrow am will follow <Samanta Banda - Last Filed: 06/14/18 12:45> - Attending Attestation Showing continued improvement 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 I agree with Ms. Banda's ( Neurosurgery PA), assessment as well as plan of care. <Duke Palacios - Last Filed: 06/15/18 15:44>
--- NOTE | 2018-06-14 13:52 | P.PNONC ---
Subjective Interval history: at bedside. Patient awake intubated. Brought in the pathology report for to review and presence of Patient. Patient's covering nurse was witness to the conversation. Discussed at length while holding patient's left hand the above pathology report. Initially introduced to the that there are 2 different pathologic findings i.e. from the brain which the pathology report he is holding at a second problem of the lung. He pressed on asking about the pathology report and therefore I proceeded to explain the following. 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 I defer ultimately to the neurosurgeon as to describe what was found in surgery , preliminary operative note had little information. In general, low-grade brain tumors are difficult to resect completely, i.e. something is left behind, however patients can live with these brain tumors for a long time. The problem of the lung is being addressed by the back stayer how to make a diagnosis. Although we suspect the lung cancer, pathologic confirmation is pending. First and foremost is the priority of her recovery from ventilatory support. For that the twister tender paper is working with them diligently. After the information given, and questions answered, the prefers that the patient is not troubled by this. Objective Vital Signs/Intake & Output: Vital Signs 06/13/18 14:00 06/13/18 15:00 06/13/18 16:00 Temperature 99.1 F Pulse Rate 83 83 96 H Respiratory Rate Blood Pressure 125/60 92/54 L 110/59 L Pulse Oximetry 100 98 96 06/13/18 17:00 06/13/18 17:02 06/13/18 17:45 Temperature Pulse Rate 81 89 82 Respiratory Rate 12 Blood Pressure 141/62 H Pulse Oximetry 100 100 100 06/13/18 18:00 06/13/18 19:00 06/13/18 20:00 Temperature 99.2 F Pulse Rate 81 85 86 Respiratory Rate Blood Pressure 157/75 H 131/58 L 111/54 L Pulse Oximetry 100 99 99 06/13/18 20:25 06/13/18 20:27 06/13/18 20:32 Temperature Pulse Rate 88 92 H Respiratory Rate 13 12 Blood Pressure 145/65 H Pulse Oximetry 100 100 06/13/18 21:00 06/13/18 22:00 06/13/18 23:00 Temperature Pulse Rate 83 75 79 Respiratory Rate Blood Pressure 124/56 L 131/63 103/51 L Pulse Oximetry 100 99 99 06/14/18 00:00 06/14/18 00:02 06/14/18 00:34 Temperature 99.2 F Pulse Rate 80 91 H 86 Respiratory Rate Blood Pressure 167/79 H 151/65 H 129/58 L Pulse Oximetry 99 99 98 06/14/18 01:00 06/14/18 02:00 06/14/18 03:00 Temperature Pulse Rate 80 79 81 Respiratory Rate Blood Pressure 124/60 134/60 134/62 Pulse Oximetry 97 98 99 06/14/18 04:00 06/14/18 04:08 06/14/18 04:10 Temperature Pulse Rate 88 85 Respiratory Rate 14 12 Blood Pressure 120/58 L Pulse Oximetry 98 98 06/14/18 05:00 06/14/18 06:00 06/14/18 07:00 Temperature Pulse Rate 87 90 82 Respiratory Rate Blood Pressure 124/57 L 137/62 122/58 L Pulse Oximetry 98 98 98 06/14/18 08:00 06/14/18 08:35 06/14/18 09:00 Temperature 99.5 F Pulse Rate 79 90 92 H Respiratory Rate 12 Blood Pressure 126/61 130/60 Pulse Oximetry 98 98 99 06/14/18 10:00 06/14/18 11:00 Temperature Pulse Rate 96 H 87 Respiratory Rate Blood Pressure 135/60 128/59 L Pulse Oximetry 98 99 Intake & Output 06/13/18 06/14/18 06/14/18 18:59 06:59 18:59 Intake Total 1355 / 1355 795 / 795 220 / 220 Output Total 500 / 500 455 / 455 Balance 855 / 855 340 / 340 220 / 220 Weight 71 kg Intake: IV 888 / 888 223 / 223 220 / 220 Cerebyx Inj 200 MGPE In NS Inj 108 / 108 108 / 108 50 ML @ 216 mls/hr IV.SIG Q8HR [facility] Rx#:[id number] Vimpat Inj 50 MG In NS Inj 100 105 / 105 105 / 105 ML @ 105 mls/hr IV.SIG Q12H [facility] Rx#:[id number] Zosyn 4.5 GM Premix 4.5 gm In 100 / 100 100 ml @ 200 mls/hr IV.SIG Q6H [facility] Rx#:[id number] KCl 20 mEq Premix Inj 20 meq In 100 / 100 100 ml @ 50 mls/hr IV.SIG Q2H PRN Rx#:[id number] Potassium Phosphate Inj 30 MMOL 260 / 260 In NS Inj 250 ML @ 43.333 mls/ hr IV.SIG ONCE ONE Rx#:[id number] Rocephin Inj 1,000 MG In NS Inj 100 / 100 100 ML @ 200 mls/hr IV.SIG Q24H [facility] Rx#:[id number] Keppra Inj 1,500 MG In NS Inj 115 / 115 115 / 115 115 / 115 100 ML @ 400 mls/hr IV.SIG Q12H [facility] Rx#:[id number] Tube Feeding 467 / 467 572 / 572 Output: Urine Amount (Catheter) 500 / 500 425 / 425 Indwelling Urethral Catheter 500 / 500 425 / 425 Intracranial Drainage Ventricle Left Temporoparietal Other: Date of Last Bowel Movement 06/13/18 06/14/18 06/14/18 # Bowel Movements 0 1 Result Diagrams: 06/14/18 04:46 06/14/18 04:46 Laboratory Results: Laboratory Results - last 24 hr 06/14/18 06/14/18 04:46 04:46 WBC 11.9 H RBC 2.76 L Hgb 9.3 L Hct 27.4 L MCV 99.1 MCH 33.6 MCHC 33.9 RDW 14.1 Plt Count 262 MPV 8.1 Neut % (Auto) 79.6 H Lymph % (Auto) 12.0 [place] % (Auto) 5.6 Eos % (Auto) 2.3 Baso % (Auto) 0.5 Neut # (Auto) 9.5 H Lymph # (Auto) 1.4 [place] # (Auto) 0.7 Eos # (Auto) 0.3 Baso # (Auto) 0.1 WBC Differential . Diff Scan Auto diff confirmed Differential Comment Auto diff final Platelet Estimate Normal Platelet Morphology Clumped H Sodium 140 Potassium 3.5 Chloride 106 Carbon Dioxide 26.4 Anion Gap 8 BUN 13 Creatinine 0.23 L Estimated GFR Greater than 89 Random Glucose 138 H Calcium 7.5 L Phosphorus 2.8 D Magnesium 2.1 Phenytoin 14.1 Culture Results: Microbiology 06/11/18 18:40 Gram Stain - Final Sputum - Endotracheal Sputum Culture - Final Enterobacter cloacae Beta Strep not group A 06/09/18 06:35 Gram Stain - Final Sputum - Endotracheal Sputum Culture - Final Heavy growth normal respiratory flores Imaging Studies: Impressions Chest X-Ray 06/14/18 06:00 CONCLUSION: Stable exam from June 13. Medications: Active Medications Generic Name Dose Route Start Last Admin Trade Name Freq PRN Reason Stop Dose Admin Albuterol 1 ampul 06/10/18 16:00 06/14/18 08:33 Duoneb Neb ([facility]va) NEB 1 ampul Q6HR NEB [facility] Administration Amlodipine Besylate 10 mg 06/10/18 09:00 06/14/18 09:58 Norvasc PO Not Given DAILY [facility] Artificial Tears 1 drop 06/06/18 12:00 06/14/18 04:30 Tears Naturale Opth Drops EACH EYE 1 drop Q8H [facility] Administration Budesonide/Formoterol Fumarate 1 puff 06/01/18 21:00 06/14/18 09:59 Symbicort 160/4.5 Mcg Inh INH Not Given BID [facility] Clonidine HCl 0.1 mg 06/09/18 14:00 06/14/18 06:24 Catapres PO 0.1 mg Q8HR [facility] Administration Enalaprilat 2.5 mg 06/01/18 02:01 06/07/18 09:03 Vasotec Inj IV.PUSH 2.5 mg Q6H PRN Administration SBP > 150 Enoxaparin Sodium 40 mg 06/07/18 09:00 06/14/18 09:53 Lovenox Inj SQ 40 mg DAILY [facility] Administration Hydralazine HCl 10 mg 06/05/18 13:15 06/11/18 18:45 Apresoline Inj IV.PUSH 10 mg Q30M PRN Administration SBP > 160 Nicardipine HCl 25 mg/ Sodium 250 mls @ 50 mls/hr 05/29/18 15:38 06/05/18 13: 39 Chloride IV.CONT 0 mg/hr TITRATE PRN 0 mls/hr Per Protocol Titration Protocol 5 MG/HR Potassium Chloride 20 meq in 100 mls @ 50 mls/hr 05/29/18 16:53 06/07/18 07: 00 Kcl 20 Meq Premix Inj IV.SIG Infused Q2H PRN Infusion For Potassium 3.3 - 3.5 mEq/L Potassium Chloride 20 meq in 100 mls @ 50 mls/hr 05/29/18 16:53 06/13/18 08: 11 Kcl 20 Meq Premix Inj IV.SIG Infused Q2H PRN Infusion For Potassium 2.8 - 3.2 mEq/L Dexmedetomidine HCl 200 mcg/ 50 mls @ 2.79 mls/hr 05/30/18 18:22 06/07/18 08: 10 Sodium Chloride IV.CONT 0 mcg/kg/hr TITRATE PRN 0 mls/hr Per Protocol Titration Protocol 0.2 MCG/KG/HR Clevidipine 25 mg in 50 mls @ 2 mls/hr 06/07/18 09:39 06/09/18 10:10 Cleviprex Inj IV.CONT Infused TITRATE PRN Titration Per protocol Protocol 1 MG/HR Sodium Glycerophosphate 30 280 mls @ 42 mls/hr 06/08/18 23:00 06/09/18 06:45 mmol/ Sodium Chloride IV.SIG Infused UNSCH PRN Infusion For Phosphorus < 2.5 mg/dL Levetiracetam 1,500 mg/ Sodium 115 mls @ 400 mls/hr 06/10/18 11:00 06/14/18 10:53 Chloride IV.SIG Infused Q12H [facility] Infusion Fosphenytoin Sodium 200 mgpe/ 54 mls @ 216 mls/hr 06/10/18 14:00 06/14/18 06: 40 Sodium Chloride IV.SIG Infused Q8HR [facility] Infusion Lacosamide 50 mg/ Sodium 105 mls @ 105 mls/hr 06/13/18 05:00 06/14/18 07:24 Chloride IV.SIG Infused Q12H [facility] Infusion Ceftriaxone Sodium 1,000 mg/ 100 mls @ 200 mls/hr 06/13/18 14:00 06/13/18 17: 33 Sodium Chloride IV.SIG Infused Q24H [facility] Infusion Lisinopril 40 mg 05/29/18 17:30 06/14/18 09:55 Prinivil PO Not Given DAILY [facility] Lorazepam 1 mg 06/05/18 14:34 06/13/18 12:48 Ativan Inj IV.PUSH 1 mg Q10M PRN Administration SEIZURES Methylphenidate HCl 10 mg 06/11/18 12:00 06/14/18 10:03 Ritalin PO 10 mg BID@0700,1200 [facility] Administration Methylprednisolone Sodium Succinate 20 mg 06/10/18 15:20 06/14/18 09:53 Solumedrol Inj IV.PUSH 20 mg Q12HR [facility] Administration Metoprolol Tartrate 50 mg 05/30/18 14:15 06/14/18 09:53 Lopressor PO 50 mg BID [facility] Administration Morphine Sulfate 2 mg 06/01/18 18:00 06/06/18 05:20 Morphine Inj IV.PUSH 2 mg Q30M PRN Administration SEVERE ANXIETY OR AGITATION Pantoprazole Sodium 40 mg 06/06/18 11:00 06/14/18 09:54 Protonix Inj IV.PUSH 40 mg DAILY [facility] Administration Potassium Chloride 40 meq 05/29/18 16:53 06/02/18 06:38 Kcl Liq PO 40 meq UNSCH PRN Administration Potassium level 3.3-3.5 mEq/L Potassium Phosphate 2,000 mg 05/29/18 16:53 06/12/18 16:36 K-Phos Original PO 2,000 mg Q4H PRN Administration Phosphorus Less Than 2.5 mg/dL Potassium Phosphate 2,000 mg 05/29/18 16:53 06/08/18 16:09 K-Phos Original PO 2,000 mg UNSCH PRN Administration SEE LABEL COMMENTS Pravastatin Sodium 40 mg 05/30/18 09:00 06/14/18 09:54 Pravachol PO 40 mg DAILY [facility] Administration Senna/Docusate Sodium 1 tab 05/29/18 21:00 06/14/18 09:55 Kate-Colace PO Not Given BID [facility] Sodium Chloride 2 ml 05/29/18 15:36 06/13/18 09:31 Ns Flush IV.FLUSH 2 ml PRN PRN Administration FLUSH AFTER USING IV ACCESS Sodium Chloride 2 ml 05/29/18 21:00 06/14/18 09:54 Ns Flush IV.FLUSH 2 ml BID [facility] Administration Sodium Chloride 2 gm 06/10/18 21:00 06/14/18 09:54 Sodium Chloride PO 2 gm BID [facility] Administration Objective Remarks: GENERAL: Intubated, awake, developed patient. SKIN: Warm and dry. Two-point restraint. HEAD: Normocephalic. EYES: No scleral icterus. No injection or drainage. NECK: Supple, trachea midline. No JVD or lymphadenopathy. LYMPHATIC: No adenopathy. CARDIOVASCULAR: Regular rate and rhythm without murmurs. RESPIRATORY: Breath sounds equal bilaterally. No accessory muscle use. GASTROINTESTINAL: Abdomen soft, non-tender, nondistended. EXTREMITIES: No cyanosis, or trace edema. Moves left hand. MUSCULOSKELETAL: Adequate muscle tone. Assessment/Plan - Plan 78-year-old woman who appears to have metastatic disease as CT of the chest shows 1.6 x 1.1 cm spiculated right upper lobe lung nodule concerning for metastatic disease or primary lung malignancy. 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 CT of the abdomen and pelvis reveals 1.3 cm left adrenal mass, liver mass [employer]YCH[employer]ER Pathology shows a low-grade astrocytoma, resected and addressed by neurosurgery. The pathology of the brain lesion suggested patient has 2 primary cancers. More concerning is the possibility of a second primary lung cancer, possible metastatic disease to the adrenal gland. Her prognosis would be carried by the more aggressive malignancy. Discussed with pulmonary, potential diagnostic maneuver of a second primary lung cancer. Treatment is palliative. Treatment options will depend on patient's performance status/weaning off the vent. Discussed with the twister tender paper. Medical oncology will sign off. Please reconsult as needed.
[2018-06-14] MEDS ORDERED: Potassium Chloride 25 MEQ Effervescent Tablet PO ONE (14:01)
--- NOTE | 2018-06-14 14:09 | P.PNCC ---
Subjective Subjective Remarks/Hospital Course: Patient is a 78-year-old female with past medical history significant for hypertension, peripheral arterial disease, history of vascular intervention/ stenting, arthritis who presented to the [facility] with mostly nonspecific complaints of memory loss and hallucinations for 1 week and worsening tremors of the right arm. Further workup in the emergency department showed subacute intraventricular hemorrhage into the left lateral ventricle and a focal thrombus that may be obstructing foramina of [place]. There was enlargement of the left lateral ventricle compared to the prior MRI. Also trace blood in the occipital horn of left lateral ventricle. With evidence of intraventricular hemorrhage patient was transferred emergently to [facility] for neurosurgery consult. I evaluated the patient after arrival to the ICU. Patient is profoundly hypertensive systolic blood pressure 190-200. IV labetalol 20 mg IV push given followed by Cardene infusion started. On exam patient did not appear to be in distress. No definite focal deficit however patient is oriented only to person. Reviewed CT scan with neurosurgery Dr. Palacios. On his review CT shows 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 hemorrhagic mass at foramen of Bell with asymmetric left sided ventricular dilatation. Stat MRI of the brain with and without contrast ordered. Started on Cardene infusion with target systolic blood pressure less than 140 05/30/18: MRI brain showed 2.3 x 1.7 cm mass within the body of the left lateral ventricle measuring 2.3 x 1.7 cm left lateral ventricle is prominent may be related to production of CSF from this mass. 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 Additional mass in the cerebellopontine angle on the left compressing upon the brainstem measuring 1.8 x 1.4 cm. Slightly more agitated and confused today. Partly secondary to mass partly could be alcohol withdrawal. Placed on as needed Haldol 05/31: Patient remains sedated received Ativan a few hours before. Currently for that reason Precedex is being held. Wakes up follows some commands. Oriented to person only. Plan for craniotomy and resection of intraventricular mass scheduled tentatively for Monday. Ct chest: 1.6 x 1.1 cm spiculated RUL nodule concerning for metastasis or primary lung malignancy. 1.1 x 1.4 cm soft tissue density inferior lateral margin of the right breast implant ?focal disruption vs breast mass. CT abdomen pelvis: 1.3 cm left adrenal mass concerning for metastatic disease given findings of brain and lung mass. 1.6 cm indeterminate low-density lesion in the posterior right lobe of the liver with numerous additional subcentimeter hypodense lesions which are too small to fully characterize. Metastatic disease cannot be entirely excluded, possibly cysts. 06/01: Remains confused slightly agitated remains on Precedex. CT angiogram yesterday of the brain showed previously demonstrated intraventricular mass however no cerebellopontine angle mass. WBC count elevated to 19.1 no fever. Will check UA-previously ordered UA had not been done. Check blood cultures, chest x-ray is clear. Continue to hold Plavix 06/02: Plan is for resection of brain mass on Monday. Patient continues breathing comfortably. 06/03: Ready for OR. Labs are in order. INR 1.1. Plavix effect noted on . 06/04: Coagulation profile normal. Patient scheduled for surgery tomorrow. No new complaints. 06/05: Patient seen in PACU shortly after surgery. Brief generalized seizure terminated with Ativan 1 mg. Patient loaded with Cerebyx 1 g. Neurologic exam nonfocal at this time. Pupils pinpoint. Required reintubation due to somnolence. 06/06: T-max 100.8. Currently afebrile. Patient arousable on the ventilator. Hypotensive requiring 1 L bolus normal saline. MRI brain pending. EEG ongoing. 06/07: T-max 100.6. Currently 99.8. MRI brain showed postsurgical change with no increased hemorrhage noted. Replacing potassium, phosphorus and magnesium currently. Dexmedetomidine drip is currently off. Noted some breech with EEG yesterday. Dilantin level therapeutic. 06/08: All sedation off for about 24 hours. She will open her eyes to stimulation. Withdraws 4 limbs to stimulation but right upper extremity appears weaker. Dilantin level is therapeutic and no more seizures. We will attempt to extubate when she can control her airway. Presently too somnolent. 06/09: Possibly slightly more arousable than when I saw her for 8 hours ago. Will reflexively squeeze left upper extremity. Not currently following commands with right upper extremity for me. Tube feeding today increase antihypertensives to wean off clevidipine drip. 06/10: Currently on fosphenytoin 200 mg twice daily and levetiracetam 1500 mg twice daily. Failed CPAP trials x2 today secondary to apnea. Will reattempt this afternoon. Arousable and opens eyes. Spontaneous moves left upper extremity but not following commands. We check EEG today. 06/11: Resting in bed. No seizure activity more awake and following commands. Will attempt extubation today at 1700 hrs. 06/12: Resting in bed. More arousable and interactive today. No seizure activity noted. Failed extubation after 1 hour attempt yesterday. We will CPAP again today and reattempt likely tomorrow. Started on piperacillin/ tazobactam for gram-negative rupinder sputum. 06/13: Afebrile. Resting in bed in no acute distress. Failed CPAP trial for 2 hours today. Continues with copious thick green sputum. Enterobacter cloacae/ strep noted Subjective 06/14: Resting comfortably in bed in no acute distress. Attempting CPAP trial again today. Diagnosis astrocytoma noted. Oncology has discussed with family. Objective Vital Signs / I&O: Vital Signs 06/13/18 15:00 06/13/18 16:00 06/13/18 17:00 Temperature 99.1 F Pulse Rate 83 96 H 81 Respiratory Rate Blood Pressure 92/54 L 110/59 L Pulse Oximetry 98 96 100 06/13/18 17:02 06/13/18 17:45 06/13/18 18:00 Temperature Pulse Rate 89 82 81 Respiratory Rate 12 Blood Pressure 141/62 H 157/75 H Pulse Oximetry 100 100 100 06/13/18 19:00 06/13/18 20:00 06/13/18 20:25 Temperature 99.2 F Pulse Rate 85 86 88 Respiratory Rate 13 Blood Pressure 131/58 L 111/54 L Pulse Oximetry 99 99 06/13/18 20:27 06/13/18 20:32 06/13/18 21:00 Temperature Pulse Rate 92 H 83 Respiratory Rate 12 Blood Pressure 145/65 H 124/56 L Pulse Oximetry 100 100 100 06/13/18 22:00 06/13/18 23:00 06/14/18 00:00 Temperature 99.2 F Pulse Rate 75 79 80 Respiratory Rate Blood Pressure 131/63 103/51 L 167/79 H Pulse Oximetry 99 99 99 06/14/18 00:02 06/14/18 00:34 06/14/18 01:00 Temperature Pulse Rate 91 H 86 80 Respiratory Rate Blood Pressure 151/65 H 129/58 L 124/60 Pulse Oximetry 99 98 97 06/14/18 02:00 06/14/18 03:00 06/14/18 04:00 Temperature Pulse Rate 79 81 88 Respiratory Rate Blood Pressure 134/60 134/62 120/58 L Pulse Oximetry 98 99 98 06/14/18 04:08 06/14/18 04:10 06/14/18 05:00 Temperature Pulse Rate 85 87 Respiratory Rate 14 12 Blood Pressure 124/57 L Pulse Oximetry 98 98 06/14/18 06:00 06/14/18 07:00 06/14/18 08:00 Temperature 99.5 F Pulse Rate 90 82 79 Respiratory Rate Blood Pressure 137/62 122/58 L 126/61 Pulse Oximetry 98 98 98 06/14/18 08:35 06/14/18 09:00 06/14/18 10:00 Temperature Pulse Rate 90 92 H 96 H Respiratory Rate 12 Blood Pressure 130/60 135/60 Pulse Oximetry 98 99 98 06/14/18 11:00 06/14/18 12:00 06/14/18 13:00 Temperature 99.0 F Pulse Rate 87 87 89 Respiratory Rate Blood Pressure 128/59 L 119/58 L 107/66 Pulse Oximetry 99 97 97 Intake & Output 06/13/18 06/14/18 06/14/18 18:59 06:59 18:59 Intake Total 1355 / 1355 795 / 795 220 / 220 Output Total 500 / 500 455 / 455 Balance 855 / 855 340 / 340 220 / 220 Weight 71 kg Intake: IV 888 / 888 223 / 223 220 / 220 Cerebyx Inj 200 MGPE In NS Inj 108 / 108 108 / 108 50 ML @ 216 mls/hr IV.SIG Q8HR ALEXIS Rx#:[id number] Vimpat Inj 50 MG In NS Inj 100 105 / 105 105 / 105 ML @ 105 mls/hr IV.SIG Q12H ALEXIS Rx#:[id number] Zosyn 4.5 GM Premix 4.5 gm In 100 / 100 100 ml @ 200 mls/hr IV.SIG Q6H ALEXIS Rx#:[id number] KCl 20 mEq Premix Inj 20 meq In 100 / 100 100 ml @ 50 mls/hr IV.SIG Q2H PRN Rx#:[id number] Potassium Phosphate Inj 30 MMOL 260 / 260 In NS Inj 250 ML @ 43.333 mls/ hr IV.SIG ONCE ONE Rx#:[id number] Rocephin Inj 1,000 MG In NS Inj 100 / 100 100 ML @ 200 mls/hr IV.SIG Q24H ALEXIS Rx#:[id number] Keppra Inj 1,500 MG In NS Inj 115 / 115 115 / 115 115 / 115 100 ML @ 400 mls/hr IV.SIG Q12H ALEXIS Rx#:[id number] Tube Feeding 467 / 467 572 / 572 Output: Urine Amount (Catheter) 500 / 500 425 / 425 Indwelling Urethral Catheter 500 / 500 425 / 425 Intracranial Drainage Ventricle Left Temporoparietal Other: Date of Last Bowel Movement 06/13/18 06/14/18 06/14/18 # Bowel Movements 0 1 Result Diagrams: 06/14/18 04:46 06/14/18 04:46 Other Results: Microbiology 06/11/18 18:40 Sputum - Endotracheal Gram Stain - Final 06/11/18 18:40 Sputum - Endotracheal Sputum Culture - Final Enterobacter cloacae Beta Strep not group A 06/09/18 06:35 Sputum - Endotracheal Gram Stain - Final 06/09/18 06:35 Sputum - Endotracheal Sputum Culture - Final Heavy growth normal respiratory flores 06/01/18 10:21 Blood - Peripheral Aerobic Blood Culture - Final No growth in 5 days 06/01/18 10:21 Blood - Peripheral Anaerobic Blood Culture - Final No growth in 5 days 06/01/18 10:16 Blood - Peripheral Aerobic Blood Culture - Final No growth in 5 days 06/01/18 10:16 Blood - Peripheral Anaerobic Blood Culture - Final No growth in 5 days Imaging: Chest X-Ray 05/29/18 15:37 CONCLUSION: Chronic interstitial changes. No acute abnormality. Head MRI 05/29/18 15:41 CONCLUSION: 1. There is a 2.3 x 1.7 cm mass within the body of the left lateral ventricle measuring 2.3 x 1.7 cm. The left lateral ventricle is prominent may be related to production of CSF from this mass. 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 This mass may have hemorrhaged causing the blood layering in the lateral ventricles. 2. There is also a mass in the cerebellopontine angle on the left compressing upon the brainstem measuring 1.8 x 1.4 cm. 3. Chronic ischemic small vessel vasculopathy. Abdomen/Pelvis CT 05/30/18 00:00 CONCLUSION: 1. 1.3 cm left adrenal mass. Findings are concerning for metastatic disease given findings of brain metastasis and lung mass. 2. 1.6 cm indeterminate low-density lesion in the posterior right lobe of the liver with numerous additional subcentimeter hypodense lesions which are too small to fully characterize. Although metastatic disease cannot be entirely excluded, suspect these reflect cysts. 3. Colonic diverticulosis without evidence for diverticulitis. 4. Otherwise, no additional definitive evidence for metastatic disease to the abdomen or pelvis. Chest CT 05/30/18 00:00 CONCLUSION: 1. 1.6 x 1.1 cm spiculated right upper lobe lung nodule concerning for metastasis or primary lung malignancy. 2. Additional 3 mm subpleural nodules in the superior segment of the left lower lobe are nonspecific. 3. Mild atelectasis/scarring at the right lung base with more prominent airspace consolidation at the left lung base. 4. 1.1 x 1.4 cm soft tissue density abnormality emanating from the inferior lateral margin of the right breast implant which may reflect a focal disruption. However, cannot exclude an adjacent breast mass. Correlation with patient's history and prior breast imaging is recommended. Head CTA 05/31/18 00:00 CONCLUSION: 1. There is no evidence for intracranial aneurysm or stenosis. 2. Intraventricular mass as previously described. 3. There is no evidence for mass at the cerebellopontine angle. The finding on the recent MRI was likely related to pulsation artifact in this region. . Chest X-Ray 06/01/18 00:00 CONCLUSION: No acute cardiopulmonary disease identified. Chest X-Ray 06/05/18 00:00 CONCLUSION: 1. Right upper lobe nodule. 2. Bibasilar infiltrates. 3. Adequate placement of endotracheal tube. Head MRI 06/06/18 00:00 CONCLUSION: 1. 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 2. Intraventricular blood as described. Left lateral ventricle is slightly smaller. 3. Air and small amount of acute blood in the subdural spaces of both convexities. There is also small subdural blood in between the leaves of the falx. 4. Roughly 5 mm of rightward midline shift, improved. Chest X-Ray 06/08/18 06:00 CONCLUSION: Tracheostomy tube and nasogastric tube position. Lungs are grossly clear. Head CT 06/09/18 14:55 CONCLUSION: 1. Postoperative findings with ventriculostomy catheter in place, pneumocephalus, and moderate amount of intraventricular blood in the left occipital horn and minimal blood in the right occipital horn. 2. Ventricular size is similar to preoperative CT. No evidence of midline shift or mass effect. . Chest X-Ray 06/11/18 06:00 CONCLUSION: Basilar airspace disease similar to June 08. Endotracheal tube and nasogastric tube in good position. Chest X-Ray 06/11/18 18:00 CONCLUSION: 1. Endotracheal tube 1.6 cm above the claire. 2. Bibasilar consolidation. 3. Nodular density right upper lobe. Chest X-Ray 06/12/18 06:00 CONCLUSION: Endotracheal tube and nasogastric tube in good position. Basilar airspace disease not significantly changed from [address] 06/12/18 07:21 CONCLUSION: 1. 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 2. Improved pneumocephalus and intraventricular blood products. 3. No intercurrent acute hemorrhage, midline shift or hydrocephalus. . Chest X-Ray 06/13/18 06:00 CONCLUSION: Basilar airspace disease slightly improved from June 12. Endotracheal tube and nasogastric tube unchanged. Chest X-Ray 06/14/18 06:00 CONCLUSION: Stable exam from June 13. Objective Remarks: GENERAL: This is a 78-year-old female currently orotracheally intubated SKIN: Warm and dry. HEAD: EVD in place. EYES: Pupils equal and round. About 2 mm bilaterally and reactive, no scleral icterus. No injection or drainage. ENT: No nasal bleeding or discharge. Mucous membranes pink and moist. NECK: Trachea midline. Orotracheal intubation CARDIOVASCULAR: Regular rate and rhythm. S1, S2 no S4. No murmur RESPIRATORY: Normal excursions on mechanical ventilation. Clear to auscultation. Breath sounds equal bilaterally. GASTROINTESTINAL: Abdomen soft, non-tender, nondistended. No guarding, bowel sounds active. MUSCULOSKELETAL: Extremities with 1 bilateral upper and lower extremity edema. Warm, well-perfused NEUROLOGICAL: Positive cough and gag. Pupils reactive. Arousable on the ventilator and opens eyes moves all left upper, left lower and right lower extremity. Some movement right upper extremity. GENERAL: SKIN: Warm and dry. HEAD: Atraumatic. Normocephalic. EYES: Pupils equal and round. No scleral icterus. No injection or drainage. ENT: No nasal bleeding or discharge. Mucous membranes pink and moist. NECK: Trachea midline. No JVD. CARDIOVASCULAR: Regular rate and rhythm. RESPIRATORY: No accessory muscle use. Clear to auscultation. Breath sounds equal bilaterally. GASTROINTESTINAL: Abdomen soft, non-tender, nondistended. Hepatic and splenic margins not palpable. MUSCULOSKELETAL: Extremities without clubbing, cyanosis, or edema. No obvious deformities. NEUROLOGICAL: Awake and alert. No obvious cranial nerve deficits. Motor grossly within normal limits. Five out of 5 muscle strength in the arms and legs. Normal speech. PSYCHIATRIC: Appropriate mood and affect; insight and judgment normal. Assessment and Plan - Problem List (1) Intraventricular hemorrhage, nontraumatic Code(s): I61.5 - Nontraumatic intracerebral hemorrhage, intraventricular Status: Acute (2) Hypertensive emergency Code(s): I16.1 - Hypertensive emergency Status: Acute (3) Metabolic encephalopathy Code(s): G93.41 - Metabolic encephalopathy Status: Acute (4) Altered mental status Code(s): R41.82 - Altered mental status, unspecified Status: Acute (5) History of peripheral arterial disease Code(s): Z86.79 - Personal history of other diseases of the circulatory system Status: Chronic (6) History of hypertension Code(s): Z86.79 - Personal history of other diseases of the circulatory system Status: Chronic (7) Cessation of tobacco use in previous 12 months Code(s): Z87.891 - Personal history of nicotine dependence Status: Chronic - Assessment and Plan Plan: NEURO/psych: 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 -Status post left craniotomy resection of tumor 06/0506/04/2018 (clopidogrel will be held for 7 days prior to surgery) -Oncology consult, also CT chest abdomen pelvis -right upper lobe mass with probable adrenal metastases cannot rule out liver metastases -Tight blood pressure control with nicardipine e and IV labetalol as needed, and PO meds, see below -Keep systolic blood pressure less than 150 -Supplement multivitamin thiamine given daily alcohol use -Watch closely for alcohol withdrawal -Mild alcohol withdrawal contributing to agitation -Use expected for agitation, Haldol as needed -EEG originally negative for seizures -Repeat EEG 06/06 field possible left frontal breakthrough. Loaded with fosphenytoin 1 g.. Start on 100 mg 3 times daily recheck level in a.m was 9.2 with free level around 17. Continue per neurology. -MRA 06/06 brain revealed left lateral ventricle resection, intervertebral hemorrhage slightly decreased. Small subdural hematoma. Postsurgical. Rightward shift 5 mm. Most recent EEG negative for acute seizure activity Currently on fosphenytoin 100 mg every 8 hours. Level 14. Recheck in a.m./ On levetiracetam 1500 mg IV twice daily. Continue lacosamide 50 mg twice daily per neurosurgery request Neurosurgery managing antiepileptics. Check EEG today RESP: Acute respiratory failure Previous tobacco use Right upper lobe speak with a mass -PRVC ventilation with ventilator bundle/head of bed at 30 degrees -Albuterol/ipratropium aerosols every 4 hours scheduled and as needed albuterol aerosols every 2 hours as needed -Pulmonology consulted for right upper lobe mass concerning for primary malignancy, with adrenal mass -Pulmonary Dr. Evans suggesting CT-guided biopsy and PET scan once clinically more stable -Reintubated and ISC after PACU 06/05. -Spontaneous breathing trials today again, attempt extubation when she can protect her airway. CV: Hypertensive emergency History of hypertension Peripheral arterial disease -Clevidipine infusion and, IV labetalol as needed for systolic blood pressure less than 150 -Continue home enalapril 40 mg daily and amlodipine 5 mg daily increased to 10 mg daily, continue pravastatin [address] Quintero Added metoprolol tartrate 50 mg twice daily -Continue holding clopidogrel until cleared by neurosurgery -Decrease platelet activity noted on 06/01 -INR, PT, PTT normal - GI: Left adrenal mass 1.3 x 1.2 cm Colonic diverticulosis Right liver mass versus cyst Elevated LFTs -Currently n.p.o. status, lansoprazole for GI prophylax. Docusate sodium/senna 1 tablet twice daily for bowel regimen -Continue tube feedings with vital 1.5 goal 50 cc an hour -Check ammonia level in a.m. normal : -Monitor renal function closely. ID: Enterobacter cloaca K/strep pneumonia -Day #2 piperacillin/tazobactam. Switch to ceftriaxone 1 g daily day #2. HEME: Leukocytosis Normocytic anemia -Oncology. 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 Kapadia. Pathology still pending FEN/ENDO: -Electrolyte replacement per protocol PROPH: -Bilateral lower extremity SCDs. Avoid chemical DVT prophylaxis until after surgery. LINES: -Utilize peripheral IVs, central line if needed Level 2 follow-up (4) Altered mental status Qualifiers: Altered mental status type: unspecified Qualified Code(s): R41.82 - Altered mental status, unspecified
--- NOTE | 2018-06-14 18:06 | MP ---
cc: Duke Palacios MD DATE OF OPERATION: 06/05/2018 ATTENDING PHYSICIAN: Duke Palacios MD PREOPERATIVE DIAGNOSIS: Left intraventricular tumor. POSTOPERATIVE DIAGNOSIS: Left intraventricular tumor. PROCEDURE: Left frontal craniotomy for resection of intraventricular tumor with microscope and cortical motor mapping, and endoscope. ANESTHESIA: General endotracheal anesthesia. COMPLICATIONS: None. ESTIMATED BLOOD LOSS: Less than 5 mL PATHOLOGY: Frozen section is consistent with organized hematoma. Additional specimens were submitted for permanent. CONDITION: Stable, extubated and no change to her preoperative state when she was taken back to the recovery room. INDICATIONS: The patient is a pleasant 78-year-old female who presented to an outside hospital with a 1-week history of feeling not quite right." Per the , she developed a right-sided tremor A month ago and has been having difficulty walking with report of her dragging her right leg. In addition, he is concerned that her speech has worsened and her memory has become faulty over the past week prior to admission. A head CT prior to workup at that time showed a thrombus versus hemorrhagic mass in the foramen, along with asymmetric left-sided ventricular dilatation consistent with hydrocephalus. This is compared by an outside radiologist to a 2015 MRI. Further workup ensued including head MRI to evaluate intraventricular thrombus versus hemorrhagic mass. As the patient has been on Plavix, we decided to wait to schedule a potential biopsy/surgery for a week in order for the Plavix to clear. An MRI dated 05/29/2018 showed an approximately 2.3 x 1.7 cm mass in the body of the left lateral ventricle. The left lateral ventricle was markedly dilated as this mass was blocking the ipsilateral foramen of Monro. 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 At some point, the mass had a small hemorrhage causing blood layering in the lateral ventricle as well. EXAMINATION: The patient was quite somnolent, (from a combination of hydrocephalus and pressure on the ipsilateral fornix), but arousable. I had an extensive discussion with the regarding risks, benefits and options of biopsy with possible resection of this intraventricular tumor. Risks, benefits, and options were reviewed. The risks include infection, CSF leak, hemorrhage, stroke, failure to relieve symptoms, exacerbation of symptoms, forniceal injury, reoperation and possibility of were all explained. All questions were answered. The patient indicated he understood and agreed to the plan of care. Informed consent was given. PROCEDURE IN DETAIL: The patient was taken to the operating room from the holding room and after peripheral IVs were placed, the patient was then endotracheally intubated and general endotracheal anesthesia ensued, Next, she was placed on the operating table in the supine position with her head in a García with her head in slight flexion with the head of the bed approximately 30 degrees. The Brainlab was brought in and surface registration ensued. Next, the right frontal region of the scalp was then shaved, prepped and draped in the usual sterile fashion. Using the Brainlab probe, an entry point was identified. A small lazy S shaped incision was outlined with a sterile surgical marking pen extending from slightly over the midline and approximately 1 cm anterior to the coronal suture. This was infiltrated with approximately 10 mL of 1% lidocaine with epinephrine. A #10 blade was brought in the field, cutting sharply down to the bone. The periosteum was elevated. A single Adson cerebellar retractor was placed. A small square bone flap was outlined with the Bovie. The high-speed air drill with the Acra-Cut was brought into the field. About 4 bur holes were placed uneventfully with bone wax for hemostasis. Next, the craniotome was brought in and the bone flap was elevated uneventfully. After this, the tack-up sutures were placed using 4-0 Nurolon and the dura was opened in a reverse C shape with the base protecting the sagittal sinus. This was retracted with a small 4-0 Nurolon and a hemostat. We then brought the Brainlab stereotactic navigation probe back into the field, identifying entry point through the transcortical intraventricular approach. We initially began the approach with the endoscope and a transcortical approach was uneventful. We encountered a murky, turbid CSF. In spite of the turbidity, I was able to identify the choroid plexus following it forward into the foramen of Monro. At that point, the lump of the tumor mass was identified, but was not easy to distinguish from the floor versus the ipsilateral forniceal column as well. Copious irrigation ensued and despite multiple attempts, it was not possible to see around the tumor. As such, the endoscope was removed. The microscope was then brought into the field. [place]agena retractors were set up and the small endoscopic cortical incision was used for the microscopic approach. Small Cartagena retractors were placed with minimal pressure and copiously irrigated with antibiotic irrigation. Using the scope, we were able to identify the attachment of this pedunculated mass. Using the bipolar electrocautery and gentle suction and irrigation of the mass, I was able to resect the mass off the surface of the ventricular floor. It was evident that there was a small amount of tissue that was not resectable despite the fact that the pedunculated mass was a gross total resection. Further irrigation ensued. Bipolar was used for hemostasis. At that point, the segments of the mass were submitted for frozen section which came back as consistent with hematoma. We then used titanium mini flaps to restore the bone flap. The incision was closed in anatomic layers using 2-0 inverted interrupted Vicryl sutures for the periosteum and subcutaneous tissue, followed by mamadou for the skin. A ventricular drain had been left behind and taken out through a separate stab incision. This was then secured to a Codman drainage bag. Bacitracin ointment, Telfa, and Tegaderm adhesive dressing. At the end of the operation, all sponge and needle counts were correct. The patient tolerated the procedure well and was taken back to the recovery room, extubated, somnolent, but no change from her preoperative state. MD ALLI Hawk/rabia/lorena , 04:48 PM , 05:08 PM ISELA
[2018-06-15] MEDS: Acetaminophen 325 MG Tablet PO PRN (00:08)
--- NOTE | 2018-06-15 04:55 | CT ---
EXAM DATE: 06/15/2018 4:45 AM EST AGE/SEX: 78 years / Female INDICATIONS: Assess hydrocephalus. CLINICAL DATA: This is the patient's initial encounter. Patient reports that signs and symptoms have been present for 1 day and indicates a pain score of Nonresponsive. MEDICAL/SURGICAL HISTORY: Cardiovascular disease. Coronary artery stent. RADIATION DOSE: 66.34 CTDI (mGy) COMPARISON: [facility] [place], [place] HEAD W/O CONTRAST, 06/12/2018. . TECHNIQUE: CT of the head without contrast. Using automated exposure control and adjustment of the mA and/or kV according to patient size, radiation dose was kept as low as reasonably achievable to ob tain optimal diagnostic quality images. DICOM format image data is available electronically for revi ew and comparison. FINDINGS: Cerebrum: Left frontal ventriculostomy catheter is unchanged. Encephalomalacia in the left frontal pa rietal lobes again seen. Very minimal hemorrhage in the subdural space. Ventricles are stable in size when compared to previous study. Scattered areas low-density throughout the white matter. Cortical a trophy. Posterior Fossa: The cerebellum and brainstem are intact. The 4th ventricle is midline. The cerebe llopontine angle is unremarkable. Extracranial: The visualized portion of the orbits is intact. Skull: Left frontoparietal craniotomy CONCLUSION: 1. Stable CT brain. 2. Left-sided craniotomy with left frontal parietal encephalomalacia. 3. Very minimal subdural hemorrhage on the left, stable. . Electronically signed by: Brock Pineda MD Board Certified Radiologist 06/15/2018 4:54 AM EST
--- NOTE | 2018-06-15 05:03 | XR ---
EXAM DATE: 06/15/2018 4:54 AM EST AGE/SEX: 78 years / Female INDICATIONS: Respiratory failure. CLINICAL DATA: This is the patient's subsequent encounter. Patient reports that signs and symptoms h ave been present for 2 weeks and indicates a pain score of Nonresponsive. MEDICAL/SURGICAL HISTORY: . Cerebrovascular disease Non-responsive. [place] [facility] [place]. . FINDINGS: A single AP view of the chest demonstrates minimal bibasilar densities and abnormal density/nodule in the right upper lobe. Heart normal in size. Endotracheal tube and nasogastric tube unchanged. The ca rdiomediastinal contours are unremarkable. Osseous structures are intact. CONCLUSION: 1. Bibasilar densities, stable. 2. Abnormal density/nodule right upper lobe again seen. Electronically signed by: Brock Pineda MD Board Certified Radiologist 06/15/2018 5:01 AM EST
[2018-06-15 05:05] LABS: Albumin 1.7 g/dL (3.4-5.0); Anion Gap 7 meq/L (5-15); Blood Urea Nitrogen 13 mg/dL (7-18); Carbon Dioxide 25.1 meq/L (21.0-32.0); Chloride 106 meq/L (98-107); Glomerular Filtration Rate Greater Than 89 mL/min (>89); Glucose,Random 159 mg/dL (74-106); Magnesium 2.1 mg/dL (1.5-2.5); Potassium 4.5 meq/L (3.5-5.1); Sodium 138 meq/L (136-145)
[2018-06-15 05:11] LABS: Alanine Aminotransferase 120 U/L (10-53); Alkaline Phosphatase 148 U/L (45-117); Aspartate Aminotransferase 85 U/L (15-37); Phenytoin (Dilantin) 10.2 mcg/mL (10.0-20.0); Phosphorus 2.7 mg/dL (2.5-4.9); Total Protein 5.5 g/dL (6.4-8.2)
[2018-06-15] MEDS: Fosphenytoin Inj 200 MGPE in Sodium Chlor 0.9% Inj 50 ML IV.SIG SCH ×3 (05:59→23:59)
[2018-06-15] MEDS: Artificial Tears Opth Drops 15 ML Bottle EACH EYE SCH ×3 (05:59→20:33)
[2018-06-15] MEDS: Lacosamide Inj 50 MG in Sodium Chlor 0.9% Inj 100 ML IV.SIG SCH ×2 (06:00→16:41)
[2018-06-15 07:43] LABS: Baso # (Auto) 0.1 th/mm3 (0.0-0.2); Baso % (Auto) 0.9 % (0.0-2.0); Eos # (Auto) 0.3 th/mm3 (0.0-0.4); Eos % (Auto) 3.1 % (0.0-4.0); Hematocrit 27.1 % (35.0-46.0); Hemoglobin 9.3 gm/dL (11.6-15.3); Lymph # (Auto) 1.3 th/mm3 (1.0-4.8); Mean Corpuscular HGB Conc 34.4 % (32.0-36.0); Mean Corpuscular Hemoglobin 34.1 pg (27.0-34.0); Mean Corpuscular Volume 99.2 fL (80.0-100.0); Mean Platelet Volume 7.5 fL (7.0-11.0); Mono # (Auto) 0.6 th/mm3 (0.0-0.9); Mono % (Auto) 5.6 % (0.0-8.0); Neut # (Auto) 7.8 th/mm3 (1.8-7.7); Neut % (Auto) 77.4 % (16.0-70.0); Red Blood Count 2.73 mil/mm3 (4.00-5.30); Red Cell Distribution Width 14.2 % (11.6-17.2)
[2018-06-15 07:49] LABS: White Blood Count 9.5 th/mm3 (4.0-11.0)
[2018-06-15 08:32] LABS: Platelet Count 358 th/mm3 (150-450); Platelet Estimate Normal (Normal); Platelet Morphology Clumped (Normal); Toxic Granulation 1+
[2018-06-15] MEDS: amLODIPine 5 MG Tablet PO SCH (08:50)
[2018-06-15] MEDS: Metoprolol Tartrate 50 MG Tablet PO SCH ×2 (08:50→21:27)
[2018-06-15] MEDS: Enoxaparin Inj 40 MG/0.4 ML Syringe SQ SCH (08:50)
[2018-06-15] MEDS: MethylPREDNISolone Sod Succinate Inj 40 MG/ML Vial IV.PUSH SCH ×2 (08:51→21:28)
[2018-06-15] MEDS: Senna/Docusate Sodium 8.6/50 MG Tablet PO SCH ×2 (08:51→21:28)
[2018-06-15] MEDS: Pantoprazole Inj 40 MG Vial IV.PUSH SCH (08:52)
[2018-06-15] MEDS: Budesonide-Formoterol 160/4.5 MCG 6 GM Inhaler INH SCH ×2 (08:54→23:53)
[2018-06-15] MEDS: Sodium Chloride 1 GM Tablet PO SCH ×2 (08:54→21:28)
[2018-06-15] MEDS: levETIRAcetam Inj 1,500 MG in Sodium Chlor 0.9% Inj 100 ML IV.SIG SCH (11:53)
[2018-06-15] MEDS: Lisinopril 20 MG Tablet PO SCH (11:53)
--- NOTE | 2018-06-15 12:42 | P.PNNS ---
Subjective Interval history: remains intubated, EVD clamped overnight <Samanta Banda - Last Filed: 06/15/18 13:24> Physical Exam Vital signs: Vital Signs 06/14/18 13:00 06/14/18 14:00 06/14/18 15:00 Temperature Pulse Rate 89 85 88 Respiratory Rate Blood Pressure 107/66 164/81 H 137/63 Pulse Oximetry 97 97 99 06/14/18 16:00 06/14/18 16:21 06/14/18 17:00 Temperature 99.2 F Pulse Rate 96 H 93 H 95 H Respiratory Rate 20 Blood Pressure 122/60 123/59 L Pulse Oximetry 99 99 97 06/14/18 18:00 06/14/18 19:00 06/14/18 19:58 Temperature 98.5 F Pulse Rate 98 H 102 H 99 H Respiratory Rate 29 H Blood Pressure 127/61 124/60 Pulse Oximetry 97 98 06/14/18 19:59 06/14/18 20:00 06/14/18 21:00 Temperature Pulse Rate 100 H 95 H Respiratory Rate 19 Blood Pressure 125/58 L 126/59 L Pulse Oximetry 99 99 99 06/14/18 22:00 06/14/18 23:00 06/14/18 23:26 Temperature Pulse Rate 76 78 Respiratory Rate 26 H Blood Pressure 102/52 L 116/55 L Pulse Oximetry 99 99 98 06/15/18 00:00 06/15/18 00:11 06/15/18 01:00 Temperature Pulse Rate 80 85 80 Respiratory Rate Blood Pressure 144/63 H 145/67 H 99/53 L Pulse Oximetry 99 99 99 06/15/18 01:22 06/15/18 02:00 06/15/18 03:00 Temperature Pulse Rate 83 87 74 Respiratory Rate Blood Pressure 127/57 L 127/60 93/48 L Pulse Oximetry 100 99 99 06/15/18 03:28 06/15/18 04:00 06/15/18 05:00 Temperature 98.5 F Pulse Rate 79 84 Respiratory Rate 12 Blood Pressure 152/65 H 111/55 L Pulse Oximetry 99 97 06/15/18 06:00 06/15/18 07:00 06/15/18 07:26 Temperature Pulse Rate 80 85 83 Respiratory Rate 18 Blood Pressure 167/73 H Pulse Oximetry 99 99 98 06/15/18 08:00 06/15/18 09:00 06/15/18 10:00 Temperature 98.4 F Pulse Rate 84 85 77 Respiratory Rate Blood Pressure 148/67 H 153/69 H 131/61 Pulse Oximetry 99 99 100 06/15/18 10:47 06/15/18 11:00 06/15/18 11:10 Temperature Pulse Rate 98 H 81 Respiratory Rate 23 Blood Pressure 138/63 Pulse Oximetry 100 98 100 06/15/18 12:00 Temperature 99.3 F Pulse Rate 79 Respiratory Rate 18 Blood Pressure 135/60 Pulse Oximetry 100 Intake & Output 06/14/18 06/15/18 06/15/18 18:59 06:59 18:59 Intake Total 743 / 743 724 / 724 220 / 220 Output Total 400 / 400 600 / 600 Balance 343 / 343 124 / 124 220 / 220 Weight 62.2 kg Intake: IV 479 / 479 223 / 223 220 / 220 Cerebyx Inj 200 MGPE In NS Inj 54 / 54 108 / 108 50 ML @ 216 mls/hr IV.SIG Q8HR ALEXIS Rx#:[id number] Vimpat Inj 50 MG In NS Inj 100 210 / 210 105 / 105 ML @ 105 mls/hr IV.SIG Q12H ALEXIS Rx#:[id number] Rocephin Inj 1,000 MG In NS Inj 100 / 100 100 ML @ 200 mls/hr IV.SIG Q24H ALEXIS Rx#:[id number] Keppra Inj 1,500 MG In NS Inj 115 / 115 115 / 115 115 / 115 100 ML @ 400 mls/hr IV.SIG Q12H ALEXIS Rx#:[id number] Tube Feeding 264 / 264 501 / 501 Output: Urine 600 / 600 Urine Amount (Catheter) 400 / 400 Indwelling Urethral Catheter 400 / 400 Other: Date of Last Bowel Movement 06/14/18 06/15/18 06/15/18 # Bowel Movements 1 Narrative: Patient is intubated. She is awake, alert, interacting, nodding appropriately and trying to mouth words. follows commands extremities, weaker on the right. pupils are equal. wound with dressing clean dry and intact. Ventriculostomy drain clamped. - Urinary Catheter Management Female External Cath placed during this visit: no Reason for continuing: Not indwelling catheter Indwelling Urethral Catheter Cath placed during this visit: yes Reason for continuing: Hourly intake/output Insertion date: 06/05/18 Insertion time: 08:30 <Samanta Banda - Last Filed: 06/15/18 13:24> Vital signs: Vital Signs 06/14/18 16:00 06/14/18 16:21 06/14/18 17:00 Temperature 99.2 F Pulse Rate 96 H 93 H 95 H Respiratory Rate 20 Blood Pressure 122/60 123/59 L Pulse Oximetry 99 99 97 06/14/18 18:00 06/14/18 19:00 06/14/18 19:58 Temperature 98.5 F Pulse Rate 98 H 102 H 99 H Respiratory Rate 29 H Blood Pressure 127/61 124/60 Pulse Oximetry 97 98 06/14/18 19:59 06/14/18 20:00 06/14/18 21:00 Temperature Pulse Rate 100 H 95 H Respiratory Rate 19 Blood Pressure 125/58 L 126/59 L Pulse Oximetry 99 99 99 06/14/18 22:00 06/14/18 23:00 06/14/18 23:26 Temperature Pulse Rate 76 78 Respiratory Rate 26 H Blood Pressure 102/52 L 116/55 L Pulse Oximetry 99 99 98 06/15/18 00:00 06/15/18 00:11 06/15/18 01:00 Temperature Pulse Rate 80 85 80 Respiratory Rate Blood Pressure 144/63 H 145/67 H 99/53 L Pulse Oximetry 99 99 99 06/15/18 01:22 06/15/18 02:00 06/15/18 03:00 Temperature Pulse Rate 83 87 74 Respiratory Rate Blood Pressure 127/57 L 127/60 93/48 L Pulse Oximetry 100 99 99 06/15/18 03:28 06/15/18 04:00 06/15/18 05:00 Temperature 98.5 F Pulse Rate 79 84 Respiratory Rate 12 Blood Pressure 152/65 H 111/55 L Pulse Oximetry 99 97 06/15/18 06:00 06/15/18 07:00 06/15/18 07:26 Temperature Pulse Rate 80 85 83 Respiratory Rate 18 Blood Pressure 167/73 H Pulse Oximetry 99 99 98 06/15/18 08:00 06/15/18 09:00 06/15/18 10:00 Temperature 98.4 F Pulse Rate 84 85 77 Respiratory Rate Blood Pressure 148/67 H 153/69 H 131/61 Pulse Oximetry 99 99 100 06/15/18 10:47 06/15/18 11:00 06/15/18 11:10 Temperature Pulse Rate 98 H 81 Respiratory Rate 23 Blood Pressure 138/63 Pulse Oximetry 100 98 100 06/15/18 12:00 06/15/18 13:00 06/15/18 14:00 Temperature 99.3 F Pulse Rate 79 86 81 Respiratory Rate 18 Blood Pressure 135/60 130/60 140/61 Pulse Oximetry 100 100 99 06/15/18 15:17 Temperature Pulse Rate 88 Respiratory Rate 15 Blood Pressure Pulse Oximetry 100 Intake & Output 06/14/18 06/15/18 06/15/18 18:59 06:59 18:59 Intake Total 743 / 743 724 / 724 220 / 220 Output Total 400 / 400 600 / 600 Balance 343 / 343 124 / 124 220 / 220 Weight 62.2 kg Intake: IV 479 / 479 223 / 223 220 / 220 Cerebyx Inj 200 MGPE In NS Inj 54 / 54 108 / 108 50 ML @ 216 mls/hr IV.SIG Q8HR ALEXIS Rx#:[id number] Vimpat Inj 50 MG In NS Inj 100 210 / 210 105 / 105 ML @ 105 mls/hr IV.SIG Q12H ALEXIS Rx#:[id number] Rocephin Inj 1,000 MG In NS Inj 100 / 100 100 ML @ 200 mls/hr IV.SIG Q24H ALEXIS Rx#:[id number] Keppra Inj 1,500 MG In NS Inj 115 / 115 115 / 115 115 / 115 100 ML @ 400 mls/hr IV.SIG Q12H ALEXIS Rx#:[id number] Tube Feeding 264 / 264 501 / 501 Output: Urine 600 / 600 Urine Amount (Catheter) 400 / 400 Indwelling Urethral Catheter 400 / 400 Other: Date of Last Bowel Movement 06/14/18 06/15/18 06/15/18 # Bowel Movements 1 - Urinary Catheter Management Female External Cath placed during this visit: no Indwelling Urethral Catheter Cath placed during this visit: no <Duke Palacios - Last Filed: 06/15/18 15:45> Assessment and Plan - Plan 78 yo female with vague constellation of symptoms GCS-[address] shows 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 hemorrhagic mass Will follow with you 05/30/18: cont neuro checks in ICU Dr. 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 at midnight on Monday night into Monday Minimize sedating meds, etc. 06/03/18: Appears to be a bit more encephalopathic today, possible contribution of hospital delirium versus her mild hydrocephalus, though favor delirium since her level of alertness remains stable Dr. 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 at midnight tonight Continue to minimize sedating meds, etc. 06/04/18: surgery rescheduled for tomorrow morning patient may resume diet today, NPO at [place] tonight cont hold Plavix 06/05/18 in OR for left frontal cranitomy for resection of intraventricular tumor by Dr. Palacios 06/06/18: POD #1. pt had seizure last night requiring intubation. She has been started on Keppra for seizures. On exam she opens eyes and follows commands. Postoperative MRI Brain w/wo contrast has been ordered and pending. Obtain EEG to assess seizures. Continue ventriculostomy draining, add ICP monitoring. Start sq lovenox for dvt prophylaxis. Will follow. 06/07/18: POD #2. patient neurologically stable, opens eyes and follows commands. Postoperative MRI Brain reviewed by neurosurgery team. Spot EEG reports no ongoing seizures, with high amplitude sharp waves on left?breach rhythm. Critical care plans on extubation today. Continue ventriculostomy draining at 10 mmHg. Final pathology pending. Neurology following for seizure management. Will follow. 06/08/18: POD #3. patient neurologically stable, opens eyes and follows commands. Ventriculostomy draining well with controlled ICPs, will continue at 10mmHg. Pathology still pending. cont seizure management per Neurology. dw critical care. will follow. 06/09/2018 POD#4 Remains Neurologically stable, follows commands Stop sedation wean ventilator to CPAP 5 x 12 and FiO2 30% Continue DuoNeb nebs 4 times daily. Check respiratory parameters and consider extubation Agree with Symbicort 160 about 4.5 mcg 1 puff twice daily and Solu-Medrol 40 mg IV twice daily Continue EVD Would maintain SBP 140-160 to improve CPP. 06/10/2018 POD#5 Seizure yesterday, and last night, have increased Cerebyx and Keppra D/C'ed Barbs would prefer to maintain on 2 agents and high therapeutic levels of Cerebyx, usually best with brain tumors Free Dilantin levels not easily obtainable here. Lets keep level around 20 with standard level remains Neurologically stable wean ventilator to CPAP 5 x 12 and FiO2 30% and if OK, may extubate from Neurosurgical standpoint. 06/11/18 POD #6 seizures controlled overnight, will continue Cerebyx 200 tid and Keppra 1500 bid. Dilantin levels 17.6 today continue critical care - vent weaning - CPAP trials cont EVD draining at 5 mmHg final pathology still pending will follow 06/12/18 POD #7 pt failed extubation yesterday, reintubated- critical care managing repeat EEG 06/11/18 abnormal with sharp activities left hemisphere dilantin levels 18.8 this morning cont current anticonvulsants, will repeat EEG today obtained follow up CT Brain this morning which was reviewed by Dr. Perdue, EVD raised to 15 mmHg neuro exam today appears better final pathology still pending 06/13/18 POD #8 neurologically she is awake, alert EEG yesterday 06/12/18 - mod encephalopathy, no reports of any seizure activities cont current anticonvulsants, Dilantin levels trending up pending today, started on Zosyn for gram neg rods in sputum - per critical care cont EVD challenge, cont at 15 mmHg today, plan to clamp tomorrow will follow 06/14/18 POD #9 neurologically remains awake and alert Ventriculostomy drain clamped today, follow up CT Head tomorrow am will follow 06/15/18: POD #10 neuro exam with no changes, f/u CT Head post EVD clamping reviewed by neurosurgery team, ventriculostomy drain removed, using sterile technique single stitch place, patient tolerated procedure well cont critical care management seizures controlled, continue current anticonvulsants FINAL PATHOLOGY: LOW GRADE NEOPLASM, MOST CONSISTENT WITH PILOCYTIC ASTROCYTOMA ; WHO GRADE I will follow <Samanta Banda - Last Filed: 06/15/18 13:24> - Attending Attestation doing well cont. abx ?bronch I have personally seen and examined the patient, reviewed pertinent labs and imaging studies with the Neurosurgery team. I agree with Ms. Banda's ( Neurosurgery PA), assessment as well as plan of care. <Duke Palacios - Last Filed: 06/15/18 15:45>
--- NOTE | 2018-06-15 14:49 | P.PNCC ---
Subjective Subjective Remarks/Hospital Course: Patient is a 78-year-old female with past medical history significant for hypertension, peripheral arterial disease, history of vascular intervention/ stenting, arthritis who presented to the [facility] with mostly nonspecific complaints of memory loss and hallucinations for 1 week and worsening tremors of the right arm. Further workup in the emergency department showed subacute intraventricular hemorrhage into the left lateral ventricle and a focal thrombus that may be obstructing foramina of [place]. There was enlargement of the left lateral ventricle compared to the prior MRI. Also trace blood in the occipital horn of left lateral ventricle. With evidence of intraventricular hemorrhage patient was transferred emergently to [facility] for neurosurgery consult. I evaluated the patient after arrival to the ICU. Patient is profoundly hypertensive systolic blood pressure 190-200. IV labetalol 20 mg IV push given followed by Cardene infusion started. On exam patient did not appear to be in distress. No definite focal deficit however patient is oriented only to person. Reviewed CT scan with neurosurgery Dr. Palacios. On his review CT shows 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 hemorrhagic mass at foramen of Bell with asymmetric left sided ventricular dilatation. Stat MRI of the brain with and without contrast ordered. Started on Cardene infusion with target systolic blood pressure less than 140 05/30/18: MRI brain showed 2.3 x 1.7 cm mass within the body of the left lateral ventricle measuring 2.3 x 1.7 cm left lateral ventricle is prominent may be related to production of CSF from this mass. 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 Additional mass in the cerebellopontine angle on the left compressing upon the brainstem measuring 1.8 x 1.4 cm. Slightly more agitated and confused today. Partly secondary to mass partly could be alcohol withdrawal. Placed on as needed Haldol 05/31: Patient remains sedated received Ativan a few hours before. Currently for that reason Precedex is being held. Wakes up follows some commands. Oriented to person only. Plan for craniotomy and resection of intraventricular mass scheduled tentatively for Monday. Ct chest: 1.6 x 1.1 cm spiculated RUL nodule concerning for metastasis or primary lung malignancy. 1.1 x 1.4 cm soft tissue density inferior lateral margin of the right breast implant ?focal disruption vs breast mass. CT abdomen pelvis: 1.3 cm left adrenal mass concerning for metastatic disease given findings of brain and lung mass. 1.6 cm indeterminate low-density lesion in the posterior right lobe of the liver with numerous additional subcentimeter hypodense lesions which are too small to fully characterize. Metastatic disease cannot be entirely excluded, possibly cysts. 06/01: Remains confused slightly agitated remains on Precedex. CT angiogram yesterday of the brain showed previously demonstrated intraventricular mass however no cerebellopontine angle mass. WBC count elevated to 19.1 no fever. Will check UA-previously ordered UA had not been done. Check blood cultures, chest x-ray is clear. Continue to hold Plavix 06/02: Plan is for resection of brain mass on Monday. Patient continues breathing comfortably. 06/03: Ready for OR. Labs are in order. INR 1.1. Plavix effect noted on . 06/04: Coagulation profile normal. Patient scheduled for surgery tomorrow. No new complaints. 06/05: Patient seen in PACU shortly after surgery. Brief generalized seizure terminated with Ativan 1 mg. Patient loaded with Cerebyx 1 g. Neurologic exam nonfocal at this time. Pupils pinpoint. Required reintubation due to somnolence. 06/06: T-max 100.8. Currently afebrile. Patient arousable on the ventilator. Hypotensive requiring 1 L bolus normal saline. MRI brain pending. EEG ongoing. 06/07: T-max 100.6. Currently 99.8. MRI brain showed postsurgical change with no increased hemorrhage noted. Replacing potassium, phosphorus and magnesium currently. Dexmedetomidine drip is currently off. Noted some breech with EEG yesterday. Dilantin level therapeutic. 06/08: All sedation off for about 24 hours. She will open her eyes to stimulation. Withdraws 4 limbs to stimulation but right upper extremity appears weaker. Dilantin level is therapeutic and no more seizures. We will attempt to extubate when she can control her airway. Presently too somnolent. 06/09: Possibly slightly more arousable than when I saw her for 8 hours ago. Will reflexively squeeze left upper extremity. Not currently following commands with right upper extremity for me. Tube feeding today increase antihypertensives to wean off clevidipine drip. 06/10: Currently on fosphenytoin 200 mg twice daily and levetiracetam 1500 mg twice daily. Failed CPAP trials x2 today secondary to apnea. Will reattempt this afternoon. Arousable and opens eyes. Spontaneous moves left upper extremity but not following commands. We check EEG today. 06/11: Resting in bed. No seizure activity more awake and following commands. Will attempt extubation today at 1700 hrs. 06/12: Resting in bed. More arousable and interactive today. No seizure activity noted. Failed extubation after 1 hour attempt yesterday. We will CPAP again today and reattempt likely tomorrow. Started on piperacillin/ tazobactam for gram-negative rupinder sputum. 06/13: Afebrile. Resting in bed in no acute distress. Failed CPAP trial for 2 hours today. Continues with copious thick green sputum. Enterobacter cloacae/ strep noted Subjective 06/14: Resting comfortably in bed in no acute distress. Attempting CPAP trial again today. Diagnosis astrocytoma noted. Oncology has discussed with family. 06/15: EEG stable without seizures. more awake, following commands. sputum tenacious and copious. too much to allow successful extubation. Objective Vital Signs / I&O: Vital Signs 06/14/18 15:00 06/14/18 16:00 06/14/18 16:21 Temperature 37.3 C Pulse Rate 88 96 H 93 H Respiratory Rate 20 Blood Pressure 137/63 122/60 Pulse Oximetry 99 99 99 06/14/18 17:00 06/14/18 18:00 06/14/18 19:00 Temperature 36.9 C Pulse Rate 95 H 98 H 102 H Respiratory Rate Blood Pressure 123/59 L 127/61 124/60 Pulse Oximetry 97 97 98 06/14/18 19:58 06/14/18 19:59 06/14/18 20:00 Temperature Pulse Rate 99 H 100 H Respiratory Rate 29 H 19 Blood Pressure 125/58 L Pulse Oximetry 99 99 06/14/18 21:00 06/14/18 22:00 06/14/18 23:00 Temperature Pulse Rate 95 H 76 78 Respiratory Rate Blood Pressure 126/59 L 102/52 L 116/55 L Pulse Oximetry 99 99 99 06/14/18 23:26 06/15/18 00:00 06/15/18 00:11 Temperature Pulse Rate 80 85 Respiratory Rate 26 H Blood Pressure 144/63 H 145/67 H Pulse Oximetry 98 99 99 06/15/18 01:00 06/15/18 01:22 06/15/18 02:00 Temperature Pulse Rate 80 83 87 Respiratory Rate Blood Pressure 99/53 L 127/57 L 127/60 Pulse Oximetry 99 100 99 06/15/18 03:00 06/15/18 03:28 06/15/18 04:00 Temperature 36.9 C Pulse Rate 74 79 Respiratory Rate 12 Blood Pressure 93/48 L 152/65 H Pulse Oximetry 99 99 06/15/18 05:00 06/15/18 06:00 06/15/18 07:00 Temperature Pulse Rate 84 80 85 Respiratory Rate Blood Pressure 111/55 L 167/73 H Pulse Oximetry 97 99 99 06/15/18 07:26 06/15/18 08:00 06/15/18 09:00 Temperature 36.9 C Pulse Rate 83 84 85 Respiratory Rate 18 Blood Pressure 148/67 H 153/69 H Pulse Oximetry 98 99 99 06/15/18 10:00 06/15/18 10:47 06/15/18 11:00 Temperature Pulse Rate 77 98 H Respiratory Rate 23 Blood Pressure 131/61 Pulse Oximetry 100 100 98 06/15/18 11:10 06/15/18 12:00 06/15/18 13:00 Temperature 37.4 C Pulse Rate 81 79 86 Respiratory Rate 18 Blood Pressure 138/63 135/60 130/60 Pulse Oximetry 100 100 100 06/15/18 14:00 Temperature Pulse Rate 81 Respiratory Rate Blood Pressure 140/61 Pulse Oximetry 99 Intake & Output 06/14/18 06/15/18 06/15/18 18:59 06:59 18:59 Intake Total 743 / 743 724 / 724 220 / 220 Output Total 400 / 400 600 / 600 Balance 343 / 343 124 / 124 220 / 220 Weight 62.2 kg Intake: IV 479 / 479 223 / 223 220 / 220 Cerebyx Inj 200 MGPE In NS Inj 54 / 54 108 / 108 50 ML @ 216 mls/hr IV.SIG Q8HR ALEXIS Rx#:[id number] Vimpat Inj 50 MG In NS Inj 100 210 / 210 105 / 105 ML @ 105 mls/hr IV.SIG Q12H ALEXIS Rx#:[id number] Rocephin Inj 1,000 MG In NS Inj 100 / 100 100 ML @ 200 mls/hr IV.SIG Q24H ALEXIS Rx#:[id number] Keppra Inj 1,500 MG In NS Inj 115 / 115 115 / 115 115 / 115 100 ML @ 400 mls/hr IV.SIG Q12H ALEXIS Rx#:[id number] Tube Feeding 264 / 264 501 / 501 Output: Urine 600 / 600 Urine Amount (Catheter) 400 / 400 Indwelling Urethral Catheter 400 / 400 Other: Date of Last Bowel Movement 06/14/18 06/15/18 06/15/18 # Bowel Movements 1 Result Diagrams: 06/15/18 06:59 06/15/18 04:02 Objective Remarks: GENERAL: This is a 78-year-old female currently orotracheally intubated SKIN: Warm and dry. HEAD: EVD in place. EYES: Pupils equal and round. About 2 mm bilaterally and reactive, no scleral icterus. No injection or drainage. ENT: No nasal bleeding or discharge. Mucous membranes pink and moist. NECK: Trachea midline. Orotracheal intubation CARDIOVASCULAR: Regular rate and rhythm. sinus. RESPIRATORY: Normal excursions on mechanical ventilation. equal chest rise. no accessory muscle use. copious secretions. GASTROINTESTINAL: Abdomen soft, non-tender, nondistended. No guarding MUSCULOSKELETAL: Extremities with 1+ bilateral upper and lower extremity edema. Warm, well-perfused NEUROLOGICAL: Positive cough and gag. Pupils reactive. Arousable on the ventilator and opens eyes moves all left upper, left lower and right lower extremity. Some movement right upper extremity. GENERAL: SKIN: Warm and dry. HEAD: Atraumatic. Normocephalic. EYES: Pupils equal and round. No scleral icterus. No injection or drainage. ENT: No nasal bleeding or discharge. Mucous membranes pink and moist. NECK: Trachea midline. No JVD. CARDIOVASCULAR: Regular rate and rhythm. RESPIRATORY: No accessory muscle use. Clear to auscultation. Breath sounds equal bilaterally. GASTROINTESTINAL: Abdomen soft, non-tender, nondistended. Hepatic and splenic margins not palpable. MUSCULOSKELETAL: Extremities without clubbing, cyanosis, or edema. No obvious deformities. NEUROLOGICAL: Awake and alert. No obvious cranial nerve deficits. Motor grossly within normal limits. Five out of 5 muscle strength in the arms and legs. Normal speech. PSYCHIATRIC: Appropriate mood and affect; insight and judgment normal. Assessment and Plan - Problem List (1) Intraventricular hemorrhage, nontraumatic Code(s): I61.5 - Nontraumatic intracerebral hemorrhage, intraventricular Status: Acute (2) Hypertensive emergency Code(s): I16.1 - Hypertensive emergency Status: Acute (3) Metabolic encephalopathy Code(s): G93.41 - Metabolic encephalopathy Status: Acute (4) Altered mental status Code(s): R41.82 - Altered mental status, unspecified Status: Acute (5) History of peripheral arterial disease Code(s): Z86.79 - Personal history of other diseases of the circulatory system Status: Chronic (6) History of hypertension Code(s): Z86.79 - Personal history of other diseases of the circulatory system Status: Chronic (7) Cessation of tobacco use in previous 12 months Code(s): Z87.891 - Personal history of nicotine dependence Status: Chronic - Assessment and Plan Plan: NEURO/psych: 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 -Status post left craniotomy resection of tumor 06/0506/04/2018 (clopidogrel will be held for 7 days prior to surgery) -Oncology consult, also CT chest abdomen pelvis -right upper lobe mass with probable adrenal metastases cannot rule out liver metastases -Tight blood pressure control with nicardipine e and IV labetalol as needed, and PO meds, see below -Keep systolic blood pressure less than 150 -Supplement multivitamin thiamine given daily alcohol use -Watch closely for alcohol withdrawal -Mild alcohol withdrawal contributing to agitation -Use expected for agitation, Haldol as needed -EEG originally negative for seizures -Repeat EEG 06/06 field possible left frontal breakthrough. Loaded with fosphenytoin 1 g.. Start on 100 mg 3 times daily recheck level in a.m was 9.2 with free level around 17. Continue per neurology. -MRA 06/06 brain revealed left lateral ventricle resection, intervertebral hemorrhage slightly decreased. Small subdural hematoma. Postsurgical. Rightward shift 5 mm. Most recent EEG negative for acute seizure activity Currently on fosphenytoin 100 mg every 8 hours. Level 14. Recheck in a.m./ On levetiracetam 1500 mg IV twice daily. Continue lacosamide 50 mg twice daily per neurosurgery request Neurosurgery managing antiepileptics. RESP: Acute hypoxic and hypercarbic respiratory failure Previous tobacco use Right upper lobe speak with a mass HCAP ventilator associated pneumonia -PRVC ventilation with ventilator bundle/head of bed at 30 degrees -Albuterol/ipratropium aerosols every 4 hours scheduled and as needed albuterol aerosols every 2 hours as needed -Pulmonology consulted for right upper lobe mass concerning for primary malignancy, with adrenal mass -Pulmonary Dr. Evans suggesting CT-guided biopsy and PET scan once clinically more stable -Reintubated and ISC after PACU 06/05. -Spontaneous breathing trials today again, attempt extubation when she can protect her airway. - too many secretions to allow successful extubation. will consider bronchoscopy. CV: Hypertensive emergency History of hypertension Peripheral arterial disease -Clevidipine infusion and, IV labetalol as needed for systolic blood pressure less than 150 -Continue home enalapril 40 mg daily and amlodipine 5 mg daily increased to 10 mg daily, continue pravastatin [address] Quintero Added metoprolol tartrate 50 mg twice daily -Continue holding clopidogrel until cleared by neurosurgery -Decrease platelet activity noted on 06/01 -INR, PT, PTT normal - GI: Left adrenal mass 1.3 x 1.2 cm Colonic diverticulosis Right liver mass versus cyst Elevated LFTs -tube feeds, lansoprazole for GI prophylax. Docusate sodium/senna 1 tablet twice daily for bowel regimen -Continue tube feedings with vital 1.5 goal 50 cc an hour : -Monitor renal function closely. ID: Enterobacter cloaca K/strep pneumonia -Day #2 piperacillin/tazobactam. Switch to ceftriaxone 1 g daily day #3: anticipated stop date 06/18 HEME: Leukocytosis Normocytic anemia -Oncology. astrocytoma by pathology. - Dr. Kapadia. FEN/ENDO: -Electrolyte replacement per protocol PROPH: -Bilateral lower extremity SCDs. Avoid chemical DVT prophylaxis until after surgery. LINES: -Utilize peripheral IVs, central line if needed (4) Altered mental status Qualifiers: Altered mental status type: unspecified Qualified Code(s): R41.82 - Altered mental status, unspecified
--- NOTE | 2018-06-15 21:22 | P.PN ---
Subjective Interval history: Remains on ventilator support and FiO2 at 35%. Failed CPAP trials yesterday and today Tolerating tube feeds. Secretions are thick and brownish. No fever. On IV Rocephin. No seizures noted Physical Exam Vital signs: Vital Signs 06/14/18 22:00 06/14/18 23:00 06/14/18 23:26 Temperature Pulse Rate 76 78 Respiratory Rate 26 H Blood Pressure 102/52 L 116/55 L Pulse Oximetry 99 99 98 06/15/18 00:00 06/15/18 00:11 06/15/18 01:00 Temperature Pulse Rate 80 85 80 Respiratory Rate Blood Pressure 144/63 H 145/67 H 99/53 L Pulse Oximetry 99 99 99 06/15/18 01:22 06/15/18 02:00 06/15/18 03:00 Temperature Pulse Rate 83 87 74 Respiratory Rate Blood Pressure 127/57 L 127/60 93/48 L Pulse Oximetry 100 99 99 06/15/18 03:28 06/15/18 04:00 06/15/18 05:00 Temperature 98.5 F Pulse Rate 79 84 Respiratory Rate 12 Blood Pressure 152/65 H 111/55 L Pulse Oximetry 99 97 06/15/18 06:00 06/15/18 07:00 06/15/18 07:26 Temperature Pulse Rate 80 85 83 Respiratory Rate 18 Blood Pressure 167/73 H Pulse Oximetry 99 99 98 06/15/18 08:00 06/15/18 09:00 06/15/18 10:00 Temperature 98.4 F Pulse Rate 84 85 77 Respiratory Rate Blood Pressure 148/67 H 153/69 H 131/61 Pulse Oximetry 99 99 100 06/15/18 10:47 06/15/18 11:00 06/15/18 11:10 Temperature Pulse Rate 98 H 81 Respiratory Rate 23 Blood Pressure 138/63 Pulse Oximetry 100 98 100 06/15/18 12:00 06/15/18 13:00 06/15/18 14:00 Temperature 99.3 F Pulse Rate 79 86 81 Respiratory Rate 18 Blood Pressure 135/60 130/60 140/61 Pulse Oximetry 100 100 99 06/15/18 15:00 06/15/18 15:17 06/15/18 16:00 Temperature 99.1 F Pulse Rate 80 88 85 Respiratory Rate 15 14 Blood Pressure 134/64 131/60 Pulse Oximetry 100 100 100 06/15/18 17:00 06/15/18 18:00 06/15/18 19:00 Temperature Pulse Rate 85 87 86 Respiratory Rate Blood Pressure 147/64 H 137/60 131/75 Pulse Oximetry 100 100 100 06/15/18 20:00 06/15/18 20:17 Temperature 99.1 F Pulse Rate 92 H 91 H Respiratory Rate 12 17 Blood Pressure 137/60 Pulse Oximetry 100 100 Intake & Output 06/15/18 06/15/18 06/16/18 06:59 18:59 06:59 Intake Total 724 / 724 985 / 985 Output Total 600 / 600 1750 / 1750 Balance 124 / 124 -765 / -765 Weight 62.2 kg Intake: IV 223 / 223 479 / 479 Cerebyx Inj 200 MGPE In NS Inj 108 / 108 54 / 54 50 ML @ 216 mls/hr IV.SIG Q8HR ALEXIS Rx#:[id number] Vimpat Inj 50 MG In NS Inj 100 210 / 210 ML @ 105 mls/hr IV.SIG Q12H ALEXIS Rx#:[id number] Rocephin Inj 1,000 MG In NS Inj 100 / 100 100 ML @ 200 mls/hr IV.SIG Q24H ALEXIS Rx#:[id number] Keppra Inj 1,500 MG In NS Inj 115 / 115 115 / 115 100 ML @ 400 mls/hr IV.SIG Q12H ALEXIS Rx#:[id number] Tube Feeding 501 / 501 406 / 406 Tube Irrigant 100 / 100 Output: Urine 600 / 600 Urine Amount (Catheter) 1750 / 1750 Indwelling Urethral Catheter 1750 / 1750 Wound Drainage 0 / 0 # 1 Left Head 0 / 0 Other: Date of Last Bowel Movement 06/15/18 06/15/18 06/15/18 Narrative: Patient is intubated. She is awake, alert, interacting, nodding appropriately. GENERAL: Averagely built elderly white female on ventilator support. SKIN: Warm and dry. HEAD: Atraumatic. Normocephalic. EYES: Pupils equal and round. No scleral icterus. No injection or drainage. ENT: No nasal bleeding or discharge. Mucous membranes pink and moist. NECK: Trachea midline. No JVD. CARDIOVASCULAR: Regular rate and rhythm. RESPIRATORY: No accessory muscle use. Bilateral expiratory wheezes. Breath sounds equal bilaterally. GASTROINTESTINAL: Abdomen soft, non-tender, nondistended. Hepatic and splenic margins not palpable. MUSCULOSKELETAL: Extremities without clubbing, cyanosis, or edema. No obvious deformities. NEUROLOGICAL: Awake and alert. No obvious cranial nerve deficits. Motor; insight and judgment normal. grossly within normal limits. Normal speech. PSYCHIATRIC: Appropriate mood and affect. - Urinary Catheter Management Female External Cath placed during this visit: no Reason for continuing: Not indwelling catheter Indwelling Urethral Catheter Cath placed during this visit: yes Reason for continuing: Hourly intake/output Insertion date: 06/05/18 Insertion time: 08:30 Results - Labs CBC & Chem 7: 06/15/18 06:59 06/15/18 04:02 Laboratory Results - last 24 hr 06/15/18 06/15/18 04:02 06:59 WBC 9.5 RBC 2.73 L Hgb 9.3 L Hct 27.1 L MCV 99.2 MCH 34.1 H MCHC 34.4 RDW 14.2 Plt Count 358 D MPV 7.5 Prelim Diff (Auto) Slide review pending Neut % (Auto) 77.4 H Lymph % (Auto) 13.0 [place] % (Auto) 5.6 Eos % (Auto) 3.1 Baso % (Auto) 0.9 Neut # (Auto) 7.8 H Lymph # (Auto) 1.3 [place] # (Auto) 0.6 Eos # (Auto) 0.3 Baso # (Auto) 0.1 WBC Differential . Diff Scan Auto diff confirmed Differential Comment . Toxic Granulation 1+ H Platelet Estimate Normal Platelet Morphology Clumped H Sodium 138 Potassium 4.5 D Chloride 106 Carbon Dioxide 25.1 Anion Gap 7 BUN 13 Creatinine 0.31 L Estimated GFR Greater than 89 Random Glucose 159 H Calcium 8.0 L Phosphorus 2.7 Magnesium 2.1 Total Bilirubin 0.1 L Direct Bilirubin 0.1 Indirect Bilirubin 0.0 AST 85 H ALT 120 H Alkaline Phosphatase 148 H Total Protein 5.5 L Albumin 1.7 L Phenytoin 10.2 - Imaging Impressions Chest X-Ray 06/15/18 06:00 CONCLUSION: 1. Bibasilar densities, stable. 2. Abnormal density/nodule right upper lobe again seen. Head CT 06/15/18 06:00 CONCLUSION: 1. Stable CT brain. 2. Left-sided craniotomy with left frontal parietal encephalomalacia. 3. Very minimal subdural hemorrhage on the left, stable. . Assessment and Plan - Assessment (1) COPD (chronic obstructive pulmonary disease) Code(s): J44.9 - Chronic obstructive pulmonary disease, unspecified Status: Acute (2) Right upper lobe pulmonary nodule Code(s): R91.1 - Solitary pulmonary nodule Status: Acute (3) Intraventricular hemorrhage, nontraumatic Code(s): I61.5 - Nontraumatic intracerebral hemorrhage, intraventricular Status: Acute (4) Hypertensive emergency Code(s): I16.1 - Hypertensive emergency Status: Acute (5) Metabolic encephalopathy Code(s): G93.41 - Metabolic encephalopathy Status: Acute (6) Altered mental status Code(s): R41.82 - Altered mental status, unspecified Status: Acute (7) History of peripheral arterial disease Code(s): Z86.79 - Personal history of other diseases of the circulatory system Status: Chronic (8) History of hypertension Code(s): Z86.79 - Personal history of other diseases of the circulatory system Status: Chronic (9) Cessation of tobacco use in previous 12 months Code(s): Z87.891 - Personal history of nicotine dependence Status: Chronic - Plan 1 continue CPAP trials 5/12 daily, and FiO2 35% 2. Continue DuoNeb nebs 4 times daily. 3. CBC BMP in a.m. 4. Workup for lung mass when clinically stable 5. Continue antibiotics as ordered 6 Symbicort 160 about 4.5 mcg 1 puff twice daily 7. Continue Solu-Medrol 20 mg IV twice daily 8. Continue antibiotics as ordered 9. Tube feedings at 50 cc/h Jevity 10. Mucomyst 10% solution 2 cc neb 4 times daily with DuoNeb. (6) Altered mental status Qualifiers: Altered mental status type: unspecified Qualified Code(s): R41.82 - Altered mental status, unspecified
[2018-06-16] MEDS: levETIRAcetam Inj 1,500 MG in Sodium Chlor 0.9% Inj 100 ML IV.SIG SCH ×3 (00:06→22:05)
--- NOTE | 2018-06-16 05:06 | XR ---
EXAM DATE: 06/16/2018 4:45 AM EST AGE/SEX: 78 years / Female INDICATIONS: Respiratory failure. CLINICAL DATA: This is the patient's subsequent encounter. Patient reports that signs and symptoms h ave been present for 2 weeks and indicates a pain score of Nonresponsive. MEDICAL/SURGICAL HISTORY: Cerebrovascular disease. Non-responsive. COMPARISON: [facility], CHEST 1V SINGLE AP, 06/15/2018. [facility] [place], CT CHEST W CONTRAST, 05/30/2018. . FINDINGS: The ET tube and NG tube are well placed. The heart size is normal. The lungs appear grossly clear. Th ere is increased density seen over the lower aspect of the chest from the bilateral breast implants. The lungs do appear hyperinflated. CONCLUSION: No acute abnormality is seen. Electronically signed by: Kaiser Doss MD Board Certified Radiologist 06/16/2018 5:05 AM EST
[2018-06-16 05:44] LABS: Anion Gap 7 meq/L (5-15); Blood Urea Nitrogen 8 mg/dL (7-18); Calcium 8.1 mg/dL (8.5-10.1); Carbon Dioxide 25.6 meq/L (21.0-32.0); Chloride 104 meq/L (98-107); Glomerular Filtration Rate Greater Than 89 mL/min (>89); Glucose,Random 119 mg/dL (74-106); Magnesium 2.3 mg/dL (1.5-2.5); Potassium 4.1 meq/L (3.5-5.1); Sodium 137 meq/L (136-145)
[2018-06-16 05:45] LABS: Phenytoin (Dilantin) 8.5 mcg/mL (10.0-20.0); Phosphorus 3.4 mg/dL (2.5-4.9)
[2018-06-16] MEDS: Artificial Tears Opth Drops 15 ML Bottle EACH EYE SCH ×3 (06:23→22:02)
[2018-06-16] MEDS: Lacosamide Inj 50 MG in Sodium Chlor 0.9% Inj 100 ML IV.SIG SCH ×2 (06:23→16:58)
[2018-06-16] MEDS: Budesonide-Formoterol 160/4.5 MCG 6 GM Inhaler INH SCH ×3 (06:25→22:04)
[2018-06-16] MEDS: Fosphenytoin Inj 200 MGPE in Sodium Chlor 0.9% Inj 50 ML IV.SIG SCH ×3 (06:25→22:06)
[2018-06-16 06:30] LABS: Hemoglobin 9.5 gm/dL (11.6-15.3); Mean Corpuscular HGB Conc 33.9 % (32.0-36.0); Mean Corpuscular Hemoglobin 33.3 pg (27.0-34.0); Mean Corpuscular Volume 98.1 fL (80.0-100.0); Mean Platelet Volume 7.5 fL (7.0-11.0); Red Blood Count 2.85 mil/mm3 (4.00-5.30); Red Cell Distribution Width 14.3 % (11.6-17.2)
[2018-06-16 06:35] LABS: White Blood Count 8.5 th/mm3 (4.0-11.0)
[2018-06-16 06:36] LABS: Platelet Count 362 th/mm3 (150-450)
[2018-06-16] MEDS: Sodium Chloride 1 GM Tablet PO SCH ×2 (08:20→22:03)
[2018-06-16] MEDS: amLODIPine 5 MG Tablet PO SCH (08:22)
[2018-06-16] MEDS: Senna/Docusate Sodium 8.6/50 MG Tablet PO SCH ×2 (08:22→22:03)
[2018-06-16] MEDS: Lisinopril 20 MG Tablet PO SCH (08:22)
[2018-06-16] MEDS: Metoprolol Tartrate 50 MG Tablet PO SCH ×2 (08:22→22:02)
[2018-06-16] MEDS: Pantoprazole Inj 40 MG Vial IV.PUSH SCH (08:23)
[2018-06-16] MEDS: Enoxaparin Inj 40 MG/0.4 ML Syringe SQ SCH (08:23)
[2018-06-16] MEDS: MethylPREDNISolone Sod Succinate Inj 40 MG/ML Vial IV.PUSH SCH ×2 (08:23→22:02)
[2018-06-16] MEDS ORDERED: Midazolam Inj 5 MG/ML 1 ML Vial IV.PUSH ONE (14:15)
--- NOTE | 2018-06-16 14:15 | P.PNCC ---
Subjective Subjective Remarks/Hospital Course: Patient is a 78-year-old female with past medical history significant for hypertension, peripheral arterial disease, history of vascular intervention/ stenting, arthritis who presented to the [facility] with mostly nonspecific complaints of memory loss and hallucinations for 1 week and worsening tremors of the right arm. Further workup in the emergency department showed subacute intraventricular hemorrhage into the left lateral ventricle and a focal thrombus that may be obstructing foramina of [place]. There was enlargement of the left lateral ventricle compared to the prior MRI. Also trace blood in the occipital horn of left lateral ventricle. With evidence of intraventricular hemorrhage patient was transferred emergently to [facility] for neurosurgery consult. I evaluated the patient after arrival to the ICU. Patient is profoundly hypertensive systolic blood pressure 190-200. IV labetalol 20 mg IV push given followed by Cardene infusion started. On exam patient did not appear to be in distress. No definite focal deficit however patient is oriented only to person. Reviewed CT scan with neurosurgery Dr. Palacios. On his review CT shows 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 hemorrhagic mass at foramen of Bell with asymmetric left sided ventricular dilatation. Stat MRI of the brain with and without contrast ordered. Started on Cardene infusion with target systolic blood pressure less than 140 05/30/18: MRI brain showed 2.3 x 1.7 cm mass within the body of the left lateral ventricle measuring 2.3 x 1.7 cm left lateral ventricle is prominent may be related to production of CSF from this mass. 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 Additional mass in the cerebellopontine angle on the left compressing upon the brainstem measuring 1.8 x 1.4 cm. Slightly more agitated and confused today. Partly secondary to mass partly could be alcohol withdrawal. Placed on as needed Haldol 05/31: Patient remains sedated received Ativan a few hours before. Currently for that reason Precedex is being held. Wakes up follows some commands. Oriented to person only. Plan for craniotomy and resection of intraventricular mass scheduled tentatively for Monday. Ct chest: 1.6 x 1.1 cm spiculated RUL nodule concerning for metastasis or primary lung malignancy. 1.1 x 1.4 cm soft tissue density inferior lateral margin of the right breast implant ?focal disruption vs breast mass. CT abdomen pelvis: 1.3 cm left adrenal mass concerning for metastatic disease given findings of brain and lung mass. 1.6 cm indeterminate low-density lesion in the posterior right lobe of the liver with numerous additional subcentimeter hypodense lesions which are too small to fully characterize. Metastatic disease cannot be entirely excluded, possibly cysts. 06/01: Remains confused slightly agitated remains on Precedex. CT angiogram yesterday of the brain showed previously demonstrated intraventricular mass however no cerebellopontine angle mass. WBC count elevated to 19.1 no fever. Will check UA-previously ordered UA had not been done. Check blood cultures, chest x-ray is clear. Continue to hold Plavix 06/02: Plan is for resection of brain mass on Monday. Patient continues breathing comfortably. 06/03: Ready for OR. Labs are in order. INR 1.1. Plavix effect noted on . 06/04: Coagulation profile normal. Patient scheduled for surgery tomorrow. No new complaints. 06/05: Patient seen in PACU shortly after surgery. Brief generalized seizure terminated with Ativan 1 mg. Patient loaded with Cerebyx 1 g. Neurologic exam nonfocal at this time. Pupils pinpoint. Required reintubation due to somnolence. 06/06: T-max 100.8. Currently afebrile. Patient arousable on the ventilator. Hypotensive requiring 1 L bolus normal saline. MRI brain pending. EEG ongoing. 06/07: T-max 100.6. Currently 99.8. MRI brain showed postsurgical change with no increased hemorrhage noted. Replacing potassium, phosphorus and magnesium currently. Dexmedetomidine drip is currently off. Noted some breech with EEG yesterday. Dilantin level therapeutic. 06/08: All sedation off for about 24 hours. She will open her eyes to stimulation. Withdraws 4 limbs to stimulation but right upper extremity appears weaker. Dilantin level is therapeutic and no more seizures. We will attempt to extubate when she can control her airway. Presently too somnolent. 06/09: Possibly slightly more arousable than when I saw her for 8 hours ago. Will reflexively squeeze left upper extremity. Not currently following commands with right upper extremity for me. Tube feeding today increase antihypertensives to wean off clevidipine drip. 06/10: Currently on fosphenytoin 200 mg twice daily and levetiracetam 1500 mg twice daily. Failed CPAP trials x2 today secondary to apnea. Will reattempt this afternoon. Arousable and opens eyes. Spontaneous moves left upper extremity but not following commands. We check EEG today. 06/11: Resting in bed. No seizure activity more awake and following commands. Will attempt extubation today at 1700 hrs. 06/12: Resting in bed. More arousable and interactive today. No seizure activity noted. Failed extubation after 1 hour attempt yesterday. We will CPAP again today and reattempt likely tomorrow. Started on piperacillin/ tazobactam for gram-negative rupinder sputum. 06/13: Afebrile. Resting in bed in no acute distress. Failed CPAP trial for 2 hours today. Continues with copious thick green sputum. Enterobacter cloacae/ strep noted 06/14: Resting comfortably in bed in no acute distress. Attempting CPAP trial again today. Diagnosis astrocytoma noted. Oncology has discussed with family. 06/15: EEG stable without seizures. more awake, following commands. sputum tenacious and copious. too much to allow successful extubation. Subjective 06/16: still failing CPAP for secretions. will perform therapeutic bronch to assess for mucous plugging disease. dilantin level adequate based on protein levels. no seizure activity. awake following commands. Objective Vital Signs / I&O: Vital Signs 06/15/18 15:00 06/15/18 15:17 06/15/18 16:00 Temperature 37.3 C Pulse Rate 80 88 85 Respiratory Rate 15 14 Blood Pressure 134/64 131/60 Pulse Oximetry 100 100 100 06/15/18 17:00 06/15/18 18:00 06/15/18 19:00 Temperature Pulse Rate 85 87 86 Respiratory Rate Blood Pressure 147/64 H 137/60 131/75 Pulse Oximetry 100 100 100 06/15/18 20:00 06/15/18 20:17 06/15/18 21:00 Temperature 37.3 C Pulse Rate 92 H 91 H 96 H Respiratory Rate 12 17 Blood Pressure 137/60 144/65 H Pulse Oximetry 100 100 98 06/15/18 22:00 06/15/18 23:00 06/15/18 23:50 Temperature Pulse Rate 98 H 96 H Respiratory Rate 12 Blood Pressure 146/66 H 142/66 H Pulse Oximetry 98 98 98 06/16/18 00:00 06/16/18 01:00 06/16/18 02:00 Temperature 37.3 C Pulse Rate 98 H 85 81 Respiratory Rate 12 12 12 Blood Pressure 146/65 H 111/56 L 103/51 L Pulse Oximetry 98 98 99 06/16/18 03:00 06/16/18 03:09 06/16/18 03:53 Temperature Pulse Rate 78 90 Respiratory Rate 14 17 Blood Pressure 114/55 L Pulse Oximetry 98 98 06/16/18 04:00 06/16/18 05:00 06/16/18 06:00 Temperature 37.4 C Pulse Rate 95 H 99 H 101 H Respiratory Rate 12 Blood Pressure 139/63 148/67 H 155/69 H Pulse Oximetry 98 98 99 06/16/18 07:00 06/16/18 08:00 06/16/18 08:57 Temperature 37.5 C Pulse Rate 102 H 99 H 96 H Respiratory Rate 12 19 Blood Pressure 162/69 H 140/62 Pulse Oximetry 99 100 96 06/16/18 09:00 06/16/18 10:00 06/16/18 11:00 Temperature Pulse Rate 95 H 96 H 103 H Respiratory Rate Blood Pressure 139/61 154/68 H 147/62 H Pulse Oximetry 97 97 96 06/16/18 12:48 Temperature Pulse Rate Respiratory Rate 34 H Blood Pressure Pulse Oximetry 96 Intake & Output 06/15/18 06/16/18 06/16/18 18:59 06:59 18:59 Intake Total 985 / 985 568 / 568 169 / 169 Output Total 1750 / 1750 2300 / 2300 Balance -765 / -765 -1732 / -1732 169 / 169 Weight 72.3 kg Intake: IV 479 / 479 54 / 54 169 / 169 Cerebyx Inj 200 MGPE In NS Inj 54 / 54 54 / 54 54 / 54 50 ML @ 216 mls/hr IV.SIG Q8HR ALEXIS Rx#:[id number] Vimpat Inj 50 MG In NS Inj 100 210 / 210 ML @ 105 mls/hr IV.SIG Q12H ALEXIS Rx#:[id number] Rocephin Inj 1,000 MG In NS Inj 100 / 100 100 ML @ 200 mls/hr IV.SIG Q24H ALEXIS Rx#:[id number] Keppra Inj 1,500 MG In NS Inj 115 / 115 115 / 115 100 ML @ 400 mls/hr IV.SIG Q12H ALEXIS Rx#:[id number] Tube Feeding 406 / 406 514 / 514 Tube Irrigant 100 / 100 Output: Urine Amount (Catheter) 1750 / 1750 2300 / 2300 Indwelling Urethral Catheter 1750 / 1750 2300 / 2300 Wound Drainage 0 / 0 # 1 Left Head 0 / 0 Other: Date of Last Bowel Movement 06/15/18 06/15/18 06/15/18 Result Diagrams: 06/16/18 04:38 06/16/18 04:38 Objective Remarks: GENERAL: This is a 78-year-old female currently orotracheally intubated SKIN: Warm and dry. EYES: Pupils equal and round. About 2 mm bilaterally and reactive, no scleral icterus. No injection or drainage. ENT: No nasal bleeding or discharge. Mucous membranes pink and moist. NECK: Trachea midline. Orotracheal intubation CARDIOVASCULAR: Regular rate and rhythm. sinus. RESPIRATORY: Normal excursions on mechanical ventilation. equal chest rise. no accessory muscle use. copious secretions. GASTROINTESTINAL: Abdomen soft, non-tender, nondistended. No guarding MUSCULOSKELETAL: Extremities with 1+ bilateral upper and lower extremity edema. Warm, well-perfused NEUROLOGICAL: Positive cough and gag. Pupils reactive. Arousable on the ventilator and opens eyes moves all left upper, left lower and right lower extremity. Some movement right upper extremity. follows commands. GENERAL: SKIN: Warm and dry. HEAD: Atraumatic. Normocephalic. EYES: Pupils equal and round. No scleral icterus. No injection or drainage. ENT: No nasal bleeding or discharge. Mucous membranes pink and moist. NECK: Trachea midline. No JVD. CARDIOVASCULAR: Regular rate and rhythm. RESPIRATORY: No accessory muscle use. Clear to auscultation. Breath sounds equal bilaterally. GASTROINTESTINAL: Abdomen soft, non-tender, nondistended. Hepatic and splenic margins not palpable. MUSCULOSKELETAL: Extremities without clubbing, cyanosis, or edema. No obvious deformities. NEUROLOGICAL: Awake and alert. No obvious cranial nerve deficits. Motor grossly within normal limits. Five out of 5 muscle strength in the arms and legs. Normal speech. PSYCHIATRIC: Appropriate mood and affect; insight and judgment normal. Assessment and Plan - Problem List (1) Intraventricular hemorrhage, nontraumatic Code(s): I61.5 - Nontraumatic intracerebral hemorrhage, intraventricular Status: Acute (2) Hypertensive emergency Code(s): I16.1 - Hypertensive emergency Status: Acute (3) Metabolic encephalopathy Code(s): G93.41 - Metabolic encephalopathy Status: Acute (4) Altered mental status Code(s): R41.82 - Altered mental status, unspecified Status: Acute (5) History of peripheral arterial disease Code(s): Z86.79 - Personal history of other diseases of the circulatory system Status: Chronic (6) History of hypertension Code(s): Z86.79 - Personal history of other diseases of the circulatory system Status: Chronic (7) Cessation of tobacco use in previous 12 months Code(s): Z87.891 - Personal history of nicotine dependence Status: Chronic - Assessment and Plan Plan: NEURO/psych: 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 -Status post left craniotomy resection of tumor 06/0506/04/2018 (clopidogrel will be held for 7 days prior to surgery) -Oncology consult, also CT chest abdomen pelvis -right upper lobe mass with probable adrenal metastases cannot rule out liver metastases -Tight blood pressure control with nicardipine e and IV labetalol as needed, and PO meds, see below -Keep systolic blood pressure less than 150 -Supplement multivitamin thiamine given daily alcohol use -Watch closely for alcohol withdrawal -Mild alcohol withdrawal contributing to agitation -Use expected for agitation, Haldol as needed -EEG originally negative for seizures -Repeat EEG 06/06 field possible left frontal breakthrough. Loaded with fosphenytoin 1 g.. Start on 100 mg 3 times daily recheck level in a.m was 9.2 with free level around 17. Continue per neurology. -MRA 06/06 brain revealed left lateral ventricle resection, intervertebral hemorrhage slightly decreased. Small subdural hematoma. Postsurgical. Rightward shift 5 mm. Most recent EEG negative for acute seizure activity Currently on fosphenytoin 100 mg every 8 hours. Level 14. Recheck in a.m./ On levetiracetam 1500 mg IV twice daily. Continue lacosamide 50 mg twice daily per neurosurgery request Neurosurgery managing antiepileptics. RESP: Acute hypoxic and hypercarbic respiratory failure- persistent Previous tobacco use Right upper lobe speak with a mass HCAP ventilator associated pneumonia -PRVC ventilation with ventilator bundle/head of bed at 30 degrees -Albuterol/ipratropium aerosols every 4 hours scheduled and as needed albuterol aerosols every 2 hours as needed -Pulmonology consulted for right upper lobe mass concerning for primary malignancy, with adrenal mass -Pulmonary Dr. Evans suggesting CT-guided biopsy and PET scan once clinically more stable -Reintubated and ISC after PACU 06/05. -Spontaneous breathing trials today again, attempt extubation when she can protect her airway. - too many secretions to allow successful extubation. bronch today. failed SBT today. CV: Hypertensive emergency History of hypertension Peripheral arterial disease -Clevidipine infusion and, IV labetalol as needed for systolic blood pressure less than 150 -Continue home enalapril 40 mg daily and amlodipine 5 mg daily increased to 10 mg daily, continue pravastatin 40 mg daily. metoprolol tartrate 50 mg twice daily -Continue holding clopidogrel until cleared by neurosurgery -Decrease platelet activity noted on 06/01 -INR, PT, PTT normal - GI: Left adrenal mass 1.3 x 1.2 cm Colonic diverticulosis Right liver mass versus cyst Elevated LFTs -tube feeds, lansoprazole for GI prophylax. Docusate sodium/senna 1 tablet twice daily for bowel regimen -Continue tube feedings with vital 1.5 goal 50 cc an hour : -Monitor renal function closely. ID: Enterobacter cloaca K/strep pneumonia -Day #2 piperacillin/tazobactam. Switch to ceftriaxone 1 g daily day #4: anticipated stop date 06/18 HEME: Leukocytosis Normocytic anemia -Oncology. astrocytoma by pathology. - Dr. Kapadia. FEN/ENDO: -Electrolyte replacement per protocol PROPH: -Bilateral lower extremity SCDs. Avoid chemical DVT prophylaxis until after surgery. LINES: -Utilize peripheral IVs, central line if needed (4) Altered mental status Qualifiers: Altered mental status type: unspecified Qualified Code(s): R41.82 - Altered mental status, unspecified
--- NOTE | 2018-06-16 20:43 | P.PNNS ---
Subjective Interval history: 06/16: still failing CPAP due to pneumonia and secretions. dilantin level adequate based on protein levels. no seizure activity. No overnight events Physical Exam Vital signs: Vital Signs 06/15/18 21:00 06/15/18 22:00 06/15/18 23:00 Temperature Pulse Rate 96 H 98 H 96 H Respiratory Rate Blood Pressure 144/65 H 146/66 H 142/66 H Pulse Oximetry 98 98 98 06/15/18 23:50 06/16/18 00:00 06/16/18 01:00 Temperature 99.1 F Pulse Rate 98 H 85 Respiratory Rate 12 12 12 Blood Pressure 146/65 H 111/56 L Pulse Oximetry 98 98 98 06/16/18 02:00 06/16/18 03:00 06/16/18 03:09 Temperature Pulse Rate 81 78 90 Respiratory Rate 12 14 Blood Pressure 103/51 L 114/55 L Pulse Oximetry 99 98 06/16/18 03:53 06/16/18 04:00 06/16/18 05:00 Temperature 99.3 F Pulse Rate 95 H 99 H Respiratory Rate 17 12 Blood Pressure 139/63 148/67 H Pulse Oximetry 98 98 98 06/16/18 06:00 06/16/18 07:00 06/16/18 08:00 Temperature 99.5 F Pulse Rate 101 H 102 H 99 H Respiratory Rate 12 Blood Pressure 155/69 H 162/69 H 140/62 Pulse Oximetry 99 99 100 06/16/18 08:57 06/16/18 09:00 06/16/18 10:00 Temperature Pulse Rate 96 H 95 H 96 H Respiratory Rate 19 Blood Pressure 139/61 154/68 H Pulse Oximetry 96 97 97 06/16/18 11:00 06/16/18 12:00 06/16/18 12:48 Temperature Pulse Rate 103 H 88 Respiratory Rate 34 H Blood Pressure 147/62 H 107/53 L Pulse Oximetry 96 95 96 06/16/18 13:00 06/16/18 14:00 06/16/18 14:25 Temperature Pulse Rate 106 H 100 H Respiratory Rate Blood Pressure 119/60 141/65 H Pulse Oximetry 98 97 100 06/16/18 14:41 06/16/18 14:44 06/16/18 14:47 Temperature Pulse Rate 95 H 86 96 H Respiratory Rate Blood Pressure 141/63 H 199/93 H 195/87 H Pulse Oximetry 97 97 99 06/16/18 14:50 06/16/18 15:00 06/16/18 15:02 Temperature Pulse Rate 93 H 92 H 92 H Respiratory Rate Blood Pressure 170/73 H 145/65 H Pulse Oximetry 99 99 99 06/16/18 15:17 06/16/18 15:32 06/16/18 15:47 Temperature Pulse Rate 92 H 88 93 H Respiratory Rate Blood Pressure 132/61 103/51 L 127/60 Pulse Oximetry 98 97 97 06/16/18 16:00 06/16/18 16:17 06/16/18 16:44 Temperature Pulse Rate 97 H 95 H 92 H Respiratory Rate 13 Blood Pressure 122/53 L Pulse Oximetry 98 96 96 06/16/18 17:00 06/16/18 17:14 06/16/18 17:44 Temperature 99.7 F H Pulse Rate 92 H 99 H 99 H Respiratory Rate Blood Pressure 137/62 131/58 L Pulse Oximetry 96 98 97 06/16/18 17:57 06/16/18 18:00 06/16/18 20:12 Temperature Pulse Rate 98 H 100 H 92 H Respiratory Rate 13 Blood Pressure Pulse Oximetry 97 06/16/18 20:16 Temperature Pulse Rate Respiratory Rate 12 Blood Pressure Pulse Oximetry 97 Intake & Output 06/16/18 06/16/18 06/17/18 06:59 18:59 06:59 Intake Total 568 / 568 849 / 849 Output Total 2300 / 2300 1850 / 1850 Balance -1732 / -1732 -1001 / -1001 Weight 72.3 kg Intake: IV 54 / 54 274 / 274 Cerebyx Inj 200 MGPE In NS Inj 54 / 54 54 / 54 50 ML @ 216 mls/hr IV.SIG Q8HR [facility] Rx#:[id number] Vimpat Inj 50 MG In NS Inj 100 105 / 105 ML @ 105 mls/hr IV.SIG Q12H [facility] Rx#:[id number] Keppra Inj 1,500 MG In NS Inj 115 / 115 100 ML @ 400 mls/hr IV.SIG Q12H [facility] Rx#:[id number] Tube Feeding 514 / 514 425 / 425 Tube Irrigant 150 / 150 Output: Urine Amount (Catheter) 2300 / 2300 1550 / 1550 Indwelling Urethral Catheter 2300 / 2300 1550 / 1550 Gastric Drainage 300 / 300 Orogastric Tube 300 / 300 Other: Date of Last Bowel Movement 06/15/18 06/15/18 - Constitutional no acute distress, thin, cooperative - Routine HEENT Exam Head: Present: atraumatic Eye: Present: EOMI, PERRL, normal accommodation ENT: Present: mucous membranes moist, oropharynx clear Comments: left frontal incision clean, dry, mamadou intact - Routine Neck Exam Present: supple, full ROM, trachea midline - Routine Respiratory Exam Present: patient mechanically ventilated - Routine Cardiovascular Exam Present: RRR - Routine Abdominal Exam Present: soft, normoactive bowel sounds - Routine Extremities Exam Present: full ROM, pulses intact, normal capillary refill - Routine Skin Exam Present: intact, warm, normal turgor - Routine Neurological Exam Intubated. awake, alert, interacting, nodding appropriately and trying to mouth words. follows commands extremities, weaker on the right. pupils are equal. 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 hemorrhagic mass Will follow with you 05/30/18: cont neuro checks in ICU Dr. 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 at midnight on Monday night into Monday Minimize sedating meds, etc. 06/03/18: Appears to be a bit more encephalopathic today, possible contribution of hospital delirium versus her mild hydrocephalus, though favor delirium since her level of alertness remains stable Dr. 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 at midnight tonight Continue to minimize sedating meds, etc. 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 Palacios 06/06/18: POD #1. pt had seizure last night requiring intubation. She has been started on Keppra for seizures. On exam she opens eyes and follows commands. Postoperative MRI Brain w/wo contrast has been ordered and pending. Obtain EEG to assess seizures. Continue ventriculostomy draining, add ICP monitoring. Start sq lovenox for dvt prophylaxis. Will follow. 06/07/18: POD #2. patient neurologically stable, opens eyes and follows commands. Postoperative MRI Brain reviewed by neurosurgery team. Spot EEG reports no ongoing seizures, with high amplitude sharp waves on left?breach rhythm. Critical care plans on extubation today. Continue ventriculostomy draining at 10 mmHg. Final pathology pending. Neurology following for seizure management. Will follow. 06/08/18: POD #3. patient neurologically stable, opens eyes and follows commands. Ventriculostomy draining well with controlled ICPs, will continue at 10mmHg. Pathology still pending. cont seizure management per Neurology. dw critical care. will follow. 06/09/2018 POD#4 Remains Neurologically stable, follows commands Stop sedation wean ventilator to CPAP 5 x 12 and FiO2 30% Continue DuoNeb nebs 4 times daily. Check respiratory parameters and consider extubation Agree with Symbicort 160 about 4.5 mcg 1 puff twice daily and Solu-Medrol 40 mg IV twice daily Continue EVD Would maintain SBP 140-160 to improve CPP. 06/10/2018 POD#5 Seizure yesterday, and last night, have increased Cerebyx and Keppra D/C'ed Barbs would prefer to maintain on 2 agents and high therapeutic levels of Cerebyx, usually best with brain tumors Free Dilantin levels not easily obtainable here. Lets keep level around 20 with standard level remains Neurologically stable wean ventilator to CPAP 5 x 12 and FiO2 30% and if OK, may extubate from Neurosurgical standpoint. 06/11/18 POD #6 seizures controlled overnight, will continue Cerebyx 200 tid and Keppra 1500 bid. Dilantin levels 17.6 today continue critical care - vent weaning - CPAP trials cont EVD draining at 5 mmHg final pathology still pending will follow 06/12/18 POD #7 pt failed extubation yesterday, reintubated- critical care managing repeat EEG 06/11/18 abnormal with sharp activities left hemisphere dilantin levels 18.8 this morning cont current anticonvulsants, will repeat EEG today obtained follow up CT Brain this morning which was reviewed by Dr. Perdue, EVD raised to 15 mmHg neuro exam today appears better final pathology still pending 06/13/18 POD #8 neurologically she is awake, alert EEG yesterday 06/12/18 - mod encephalopathy, no reports of any seizure activities cont current anticonvulsants, Dilantin levels trending up pending today, started on Zosyn for gram neg rods in sputum - per critical care cont EVD challenge, cont at 15 mmHg today, plan to clamp tomorrow will follow 06/14/18 POD #9 neurologically remains awake and alert Ventriculostomy drain clamped today, follow up CT Head tomorrow am will follow 06/15/18: POD #10 neuro exam with no changes, f/u CT Head post EVD clamping reviewed by neurosurgery team, ventriculostomy drain removed, using sterile technique single stitch place, patient tolerated procedure well cont critical care management seizures controlled, continue current anticonvulsants FINAL PATHOLOGY: LOW GRADE NEOPLASM, MOST CONSISTENT WITH PILOCYTIC ASTROCYTOMA ; 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 current management Discussed Path with patient's son
[2018-06-17] MEDS: hydrALAZINE HCl Inj 20 MG/ML Vial IV.PUSH PRN (04:23)
[2018-06-17] MEDS: Lacosamide Inj 50 MG in Sodium Chlor 0.9% Inj 100 ML IV.SIG SCH ×2 (05:16→16:34)
[2018-06-17] MEDS: Artificial Tears Opth Drops 15 ML Bottle EACH EYE SCH ×3 (05:17→20:47)
[2018-06-17 05:28] LABS: Hematocrit 32.4 % (35.0-46.0); Mean Corpuscular HGB Conc 33.8 % (32.0-36.0); Mean Corpuscular Hemoglobin 33.3 pg (27.0-34.0); Mean Corpuscular Volume 98.7 fL (80.0-100.0); Mean Platelet Volume 7.9 fL (7.0-11.0); Platelet Count 388 th/mm3 (150-450); Red Blood Count 3.29 mil/mm3 (4.00-5.30); Red Cell Distribution Width 14.3 % (11.6-17.2); White Blood Count 13.8 th/mm3 (4.0-11.0)
[2018-06-17 05:54] LABS: Phenytoin (Dilantin) 5.5 mcg/mL (10.0-20.0)
[2018-06-17 05:55] LABS: Anion Gap 7 meq/L (5-15); Blood Urea Nitrogen 11 mg/dL (7-18); Calcium 8.3 mg/dL (8.5-10.1); Carbon Dioxide 26.6 meq/L (21.0-32.0); Chloride 102 meq/L (98-107); Glomerular Filtration Rate Greater Than 89 mL/min (>89); Glucose,Random 110 mg/dL (74-106); Magnesium 2.3 mg/dL (1.5-2.5); Phosphorus 3.5 mg/dL (2.5-4.9); Potassium 4.7 meq/L (3.5-5.1); Sodium 136 meq/L (136-145)
[2018-06-17] MEDS: Fosphenytoin Inj 200 MGPE in Sodium Chlor 0.9% Inj 50 ML IV.SIG SCH ×3 (06:24→21:01)
[2018-06-17] MEDS: Morphine Inj 4 MG/ML Vial IV.PUSH PRN (06:39)
[2018-06-17] MEDS: Sodium Chloride 1 GM Tablet PO SCH ×2 (08:05→20:55)
[2018-06-17] MEDS: Enoxaparin Inj 40 MG/0.4 ML Syringe SQ SCH (08:05)
[2018-06-17] MEDS: Lisinopril 20 MG Tablet PO SCH (08:06)
[2018-06-17] MEDS: Metoprolol Tartrate 50 MG Tablet PO SCH ×2 (08:06→20:56)
[2018-06-17] MEDS: amLODIPine 5 MG Tablet PO SCH (08:06)
[2018-06-17] MEDS: Pantoprazole Inj 40 MG Vial IV.PUSH SCH (08:06)
[2018-06-17] MEDS: Senna/Docusate Sodium 8.6/50 MG Tablet PO SCH ×2 (08:06→20:55)
[2018-06-17] MEDS: MethylPREDNISolone Sod Succinate Inj 40 MG/ML Vial IV.PUSH SCH ×2 (08:07→20:56)
--- NOTE | 2018-06-17 08:50 | P.PNNS ---
Physical Exam Vital signs: Vital Signs 06/16/18 08:57 06/16/18 09:00 06/16/18 10:00 Temperature Pulse Rate 96 H 95 H 96 H Respiratory Rate 19 Blood Pressure 139/61 154/68 H Pulse Oximetry 96 97 97 06/16/18 11:00 06/16/18 12:00 06/16/18 12:48 Temperature Pulse Rate 103 H 88 Respiratory Rate 34 H Blood Pressure 147/62 H 107/53 L Pulse Oximetry 96 95 96 06/16/18 13:00 06/16/18 14:00 06/16/18 14:25 Temperature Pulse Rate 106 H 100 H Respiratory Rate Blood Pressure 119/60 141/65 H Pulse Oximetry 98 97 100 06/16/18 14:41 06/16/18 14:44 06/16/18 14:47 Temperature Pulse Rate 95 H 86 96 H Respiratory Rate Blood Pressure 141/63 H 199/93 H 195/87 H Pulse Oximetry 97 97 99 06/16/18 14:50 06/16/18 15:00 06/16/18 15:02 Temperature Pulse Rate 93 H 92 H 92 H Respiratory Rate Blood Pressure 170/73 H 145/65 H Pulse Oximetry 99 99 99 06/16/18 15:17 06/16/18 15:32 06/16/18 15:47 Temperature Pulse Rate 92 H 88 93 H Respiratory Rate Blood Pressure 132/61 103/51 L 127/60 Pulse Oximetry 98 97 97 06/16/18 16:00 06/16/18 16:17 06/16/18 16:44 Temperature Pulse Rate 97 H 95 H 92 H Respiratory Rate 13 Blood Pressure 122/53 L Pulse Oximetry 98 96 96 06/16/18 17:00 06/16/18 17:14 06/16/18 17:44 Temperature 99.7 F H Pulse Rate 92 H 99 H 99 H Respiratory Rate Blood Pressure 137/62 131/58 L Pulse Oximetry 96 98 97 06/16/18 17:57 06/16/18 18:00 06/16/18 18:14 Temperature Pulse Rate 98 H 100 H 100 H Respiratory Rate Blood Pressure 137/63 Pulse Oximetry 97 97 06/16/18 18:44 06/16/18 19:00 06/16/18 19:14 Temperature 98.8 F Pulse Rate 101 H 100 H 99 H Respiratory Rate 12 Blood Pressure 123/58 L 143/65 H Pulse Oximetry 97 98 97 06/16/18 19:59 06/16/18 20:00 06/16/18 20:12 Temperature Pulse Rate 100 H 92 H Respiratory Rate 13 Blood Pressure 130/58 L Pulse Oximetry 98 06/16/18 20:14 06/16/18 20:16 06/16/18 20:44 Temperature Pulse Rate 92 H 85 Respiratory Rate 12 12 Blood Pressure 120/58 L 102/54 L Pulse Oximetry 98 97 98 06/16/18 21:00 06/16/18 21:14 06/16/18 21:44 Temperature Pulse Rate 85 84 93 H Respiratory Rate 12 Blood Pressure 119/59 L 131/60 Pulse Oximetry 98 98 98 06/16/18 22:00 06/16/18 22:14 06/16/18 22:44 Temperature Pulse Rate 88 85 83 Respiratory Rate 13 Blood Pressure 119/56 L 145/66 H Pulse Oximetry 98 98 98 06/16/18 23:00 06/16/18 23:14 06/16/18 23:44 Temperature Pulse Rate 80 79 86 Respiratory Rate 12 Blood Pressure 118/55 L 148/66 H Pulse Oximetry 97 97 98 06/16/18 23:58 06/17/18 00:00 06/17/18 00:14 Temperature 99 F Pulse Rate 84 86 Respiratory Rate 14 Blood Pressure 127/60 Pulse Oximetry 98 97 97 06/17/18 00:44 06/17/18 01:00 06/17/18 01:14 Temperature Pulse Rate 94 H 89 90 Respiratory Rate 14 13 Blood Pressure 156/69 H 126/60 Pulse Oximetry 97 97 97 06/17/18 01:44 06/17/18 02:00 06/17/18 02:14 Temperature Pulse Rate 82 82 80 Respiratory Rate 13 12 Blood Pressure 94/55 L 113/53 L Pulse Oximetry 97 97 98 06/17/18 02:44 06/17/18 03:00 06/17/18 03:40 Temperature Pulse Rate 81 98 H 102 H Respiratory Rate 12 Blood Pressure 106/53 L 153/67 H Pulse Oximetry 98 98 97 06/17/18 03:44 06/17/18 03:54 06/17/18 04:00 Temperature Pulse Rate 100 H 93 H 107 H Respiratory Rate 20 Blood Pressure 186/79 H Pulse Oximetry 97 97 97 06/17/18 04:14 06/17/18 04:39 06/17/18 05:00 Temperature 99.0 F Pulse Rate 108 H 119 H 91 H Respiratory Rate 21 Blood Pressure 209/84 H 176/78 H Pulse Oximetry 98 96 06/17/18 05:08 06/17/18 05:14 06/17/18 05:44 Temperature Pulse Rate 126 H 109 H 124 H Respiratory Rate Blood Pressure 136/66 190/77 H 175/67 H Pulse Oximetry 96 96 96 06/17/18 06:00 06/17/18 06:14 06/17/18 06:44 Temperature Pulse Rate 121 H 84 122 H Respiratory Rate Blood Pressure 136/63 129/60 Pulse Oximetry 96 95 96 06/17/18 07:00 06/17/18 07:14 Temperature Pulse Rate 120 H 117 H Respiratory Rate Blood Pressure 140/67 Pulse Oximetry 96 95 Intake & Output 06/16/18 06/17/18 06/17/18 18:59 06:59 18:59 Intake Total 1223 / 1223 883 / 883 54 / 54 Output Total 1850 / 1850 625 / 625 Balance -627 / -627 258 / 258 54 / 54 Weight 68.3 kg Intake: IV 648 / 648 274 / 274 54 / 54 Cerebyx Inj 200 MGPE In NS Inj 108 / 108 54 / 54 54 / 54 50 ML @ 216 mls/hr IV.SIG Q8HR [facility] Rx#:[id number] Vimpat Inj 50 MG In NS Inj 100 210 / 210 105 / 105 ML @ 105 mls/hr IV.SIG Q12H [facility] Rx#:[id number] Rocephin Inj 1,000 MG In NS Inj 100 / 100 100 ML @ 200 mls/hr IV.SIG Q24H [facility] Rx#:[id number] Keppra Inj 1,500 MG In NS Inj 230 / 230 115 / 115 100 ML @ 400 mls/hr IV.SIG Q12H [facility] Rx#:[id number] Tube Feeding 425 / 425 509 / 509 Tube Irrigant 150 / 150 100 / 100 Output: Urine 300 / 300 Urine Amount (Catheter) 1550 / 1550 325 / 325 Indwelling Urethral Catheter 1550 / 1550 325 / 325 Gastric Drainage 300 / 300 Orogastric Tube 300 / 300 Other: # Incontinent Voids 2 Date of Last Bowel Movement 06/15/18 06/17/18 # Incontinent Bowel Movements 3 - Constitutional no acute distress, thin - Routine HEENT Exam Head: Present: normocephalic, atraumatic Eye: Present: EOMI, PERRL, normal accommodation ENT: Present: mucous membranes moist, oropharynx clear Comments: left frontal incision clean, dry - Routine Neck Exam Present: supple, full ROM, trachea midline - Routine Respiratory Exam Present: patient mechanically ventilated - Routine Cardiovascular Exam Present: RRR - Routine Abdominal Exam Present: soft, normoactive bowel sounds - Routine Skin Exam Present: intact, warm, normal turgor - Routine Neurological Exam Intubated. awake, alert, interacting, nodding appropriately and trying to mouth words. follows commands extremities, weaker on the right. pupils are equal. - Detailed Neurological Exam: Coma Scale Eye Opening: Spontaneous Verbal Response: None Motor Response: Obey commands [place] Coma Scale Total: 11 - Routine Psychiatric Exam Present: cooperative - Urinary Catheter Management Female External Cath placed during this visit: no Reason for continuing: Not indwelling catheter Indwelling Urethral Catheter Cath placed during this visit: yes, but has since been removed by the nurse Reason for continuing: Decision to DC catheter Insertion date: 06/05/18 Insertion time: 08:30 Removal date: 06/16/18 Removal time: 21:51 Assessment and Plan - Plan 78 yo female with vague constellation of symptoms GCS-[address] shows 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 hemorrhagic mass Will follow with you 05/30/18: cont neuro checks in ICU Dr. 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 at midnight on Monday night into Monday Minimize sedating meds, etc. 06/03/18: Appears to be a bit more encephalopathic today, possible contribution of hospital delirium versus her mild hydrocephalus, though favor delirium since her level of alertness remains stable Dr. 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 at midnight tonight Continue to minimize sedating meds, etc. 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 Palacios 06/06/18: POD #1. pt had seizure last night requiring intubation. She has been started on Keppra for seizures. On exam she opens eyes and follows commands. Postoperative MRI Brain w/wo contrast has been ordered and pending. Obtain EEG to assess seizures. Continue ventriculostomy draining, add ICP monitoring. Start sq lovenox for dvt prophylaxis. Will follow. 06/07/18: POD #2. patient neurologically stable, opens eyes and follows commands. Postoperative MRI Brain reviewed by neurosurgery team. Spot EEG reports no ongoing seizures, with high amplitude sharp waves on left?breach rhythm. Critical care plans on extubation today. Continue ventriculostomy draining at 10 mmHg. Final pathology pending. Neurology following for seizure management. Will follow. 06/08/18: POD #3. patient neurologically stable, opens eyes and follows commands. Ventriculostomy draining well with controlled ICPs, will continue at 10mmHg. Pathology still pending. cont seizure management per Neurology. dw critical care. will follow. 06/09/2018 POD#4 Remains Neurologically stable, follows commands Stop sedation wean ventilator to CPAP 5 x 12 and FiO2 30% Continue DuoNeb nebs 4 times daily. Check respiratory parameters and consider extubation Agree with Symbicort 160 about 4.5 mcg 1 puff twice daily and Solu-Medrol 40 mg IV twice daily Continue EVD Would maintain SBP 140-160 to improve CPP. 06/10/2018 POD#5 Seizure yesterday, and last night, have increased Cerebyx and Keppra D/C'ed Barbs would prefer to maintain on 2 agents and high therapeutic levels of Cerebyx, usually best with brain tumors Free Dilantin levels not easily obtainable here. Lets keep level around 20 with standard level remains Neurologically stable wean ventilator to CPAP 5 x 12 and FiO2 30% and if OK, may extubate from Neurosurgical standpoint. 06/11/18 POD #6 seizures controlled overnight, will continue Cerebyx 200 tid and Keppra 1500 bid. Dilantin levels 17.6 today continue critical care - vent weaning - CPAP trials cont EVD draining at 5 mmHg final pathology still pending will follow 06/12/18 POD #7 pt failed extubation yesterday, reintubated- critical care managing repeat EEG 06/11/18 abnormal with sharp activities left hemisphere dilantin levels 18.8 this morning cont current anticonvulsants, will repeat EEG today obtained follow up CT Brain this morning which was reviewed by Dr. Perdue, EVD raised to 15 mmHg neuro exam today appears better final pathology still pending 06/13/18 POD #8 neurologically she is awake, alert EEG yesterday 06/12/18 - mod encephalopathy, no reports of any seizure activities cont current anticonvulsants, Dilantin levels trending up pending today, started on Zosyn for gram neg rods in sputum - per critical care cont EVD challenge, cont at 15 mmHg today, plan to clamp tomorrow will follow 06/14/18 POD #9 neurologically remains awake and alert Ventriculostomy drain clamped today, follow up CT Head tomorrow am will follow 06/15/18: POD #10 neuro exam with no changes, f/u CT Head post EVD clamping reviewed by neurosurgery team, ventriculostomy drain removed, using sterile technique single stitch place, patient tolerated procedure well cont critical care management seizures controlled, continue current anticonvulsants FINAL PATHOLOGY: LOW GRADE NEOPLASM, MOST CONSISTENT WITH PILOCYTIC ASTROCYTOMA ; 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 current management Discussed Path with patient's son 06/17/2018 POD#12 Neuro: no sig. changes seizures controlled aggressive CPAP trials today DPH level 5.5 Bolused with 500 mgs. cont. ICU
[2018-06-17] MEDS ORDERED: Fosphenytoin Inj 500 MGPE in Sodium Chlor 0.9% Inj 50 ML IV.SIG ONE (09:45)
[2018-06-17] MEDS: Budesonide-Formoterol 160/4.5 MCG 6 GM Inhaler INH SCH ×2 (09:47→21:01)
[2018-06-17] MEDS: levETIRAcetam Inj 1,500 MG in Sodium Chlor 0.9% Inj 100 ML IV.SIG SCH ×2 (10:16→23:48)
--- NOTE | 2018-06-17 12:58 | P.PCN ---
Date of procedure: 06/16/18 Procedure: Note: I performed this procedure on 06/16/2018 Procedure: Therapeutic fiberoptic Bronchoscopy Diagnosis: Enterobacter pneumonia Indications: Inability to clear secretions, respiratory failure Consent: Obtained Anesthesia: Versed 5 milligrams IV, rocuronium 50 milligrams IV Description of the Procedure: The patient was sedated and mechanically ventilated. The patient was placed on 100% FIO2 and a volume control mode of ventilation. The fiberoptic bronchoscopy was inserted via oral endotracheal tube. The trachea, right and left mainstem bronchi, and sub-segmental bronchi were evaluated. The endobronchial anatomy was normal. Findings: Minimal amount of thin clear secretions in the left lower lobe. These were aggressively suctioned BAL samples: No samples were sent. The patient tolerated the procedure well with no hemodynamic instability or hypoxia. There were no immediate complications noted. At the conclusion of the procedure, the patient was placed back on their pre-procedure ventilatory settings. There was minimal EBL. A chest x-ray has been ordered. I personally performed the procedure.
--- NOTE | 2018-06-17 13:00 | P.PNCC ---
Subjective Subjective Remarks/Hospital Course: Patient is a 78-year-old female with past medical history significant for hypertension, peripheral arterial disease, history of vascular intervention/ stenting, arthritis who presented to the [facility] with mostly nonspecific complaints of memory loss and hallucinations for 1 week and worsening tremors of the right arm. Further workup in the emergency department showed subacute intraventricular hemorrhage into the left lateral ventricle and a focal thrombus that may be obstructing foramina of [place]. There was enlargement of the left lateral ventricle compared to the prior MRI. Also trace blood in the occipital horn of left lateral ventricle. With evidence of intraventricular hemorrhage patient was transferred emergently to [facility] for neurosurgery consult. I evaluated the patient after arrival to the ICU. Patient is profoundly hypertensive systolic blood pressure 190-200. IV labetalol 20 mg IV push given followed by Cardene infusion started. On exam patient did not appear to be in distress. No definite focal deficit however patient is oriented only to person. Reviewed CT scan with neurosurgery Dr. Palacios. On his review CT shows 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 hemorrhagic mass at foramen of Bell with asymmetric left sided ventricular dilatation. Stat MRI of the brain with and without contrast ordered. Started on Cardene infusion with target systolic blood pressure less than 140 05/30/18: MRI brain showed 2.3 x 1.7 cm mass within the body of the left lateral ventricle measuring 2.3 x 1.7 cm left lateral ventricle is prominent may be related to production of CSF from this mass. 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 Additional mass in the cerebellopontine angle on the left compressing upon the brainstem measuring 1.8 x 1.4 cm. Slightly more agitated and confused today. Partly secondary to mass partly could be alcohol withdrawal. Placed on as needed Haldol 05/31: Patient remains sedated received Ativan a few hours before. Currently for that reason Precedex is being held. Wakes up follows some commands. Oriented to person only. Plan for craniotomy and resection of intraventricular mass scheduled tentatively for Monday. Ct chest: 1.6 x 1.1 cm spiculated RUL nodule concerning for metastasis or primary lung malignancy. 1.1 x 1.4 cm soft tissue density inferior lateral margin of the right breast implant ?focal disruption vs breast mass. CT abdomen pelvis: 1.3 cm left adrenal mass concerning for metastatic disease given findings of brain and lung mass. 1.6 cm indeterminate low-density lesion in the posterior right lobe of the liver with numerous additional subcentimeter hypodense lesions which are too small to fully characterize. Metastatic disease cannot be entirely excluded, possibly cysts. 06/01: Remains confused slightly agitated remains on Precedex. CT angiogram yesterday of the brain showed previously demonstrated intraventricular mass however no cerebellopontine angle mass. WBC count elevated to 19.1 no fever. Will check UA-previously ordered UA had not been done. Check blood cultures, chest x-ray is clear. Continue to hold Plavix 06/02: Plan is for resection of brain mass on Monday. Patient continues breathing comfortably. 06/03: Ready for OR. Labs are in order. INR 1.1. Plavix effect noted on . 06/04: Coagulation profile normal. Patient scheduled for surgery tomorrow. No new complaints. 06/05: Patient seen in PACU shortly after surgery. Brief generalized seizure terminated with Ativan 1 mg. Patient loaded with Cerebyx 1 g. Neurologic exam nonfocal at this time. Pupils pinpoint. Required reintubation due to somnolence. 06/06: T-max 100.8. Currently afebrile. Patient arousable on the ventilator. Hypotensive requiring 1 L bolus normal saline. MRI brain pending. EEG ongoing. 06/07: T-max 100.6. Currently 99.8. MRI brain showed postsurgical change with no increased hemorrhage noted. Replacing potassium, phosphorus and magnesium currently. Dexmedetomidine drip is currently off. Noted some breech with EEG yesterday. Dilantin level therapeutic. 06/08: All sedation off for about 24 hours. She will open her eyes to stimulation. Withdraws 4 limbs to stimulation but right upper extremity appears weaker. Dilantin level is therapeutic and no more seizures. We will attempt to extubate when she can control her airway. Presently too somnolent. 06/09: Possibly slightly more arousable than when I saw her for 8 hours ago. Will reflexively squeeze left upper extremity. Not currently following commands with right upper extremity for me. Tube feeding today increase antihypertensives to wean off clevidipine drip. 06/10: Currently on fosphenytoin 200 mg twice daily and levetiracetam 1500 mg twice daily. Failed CPAP trials x2 today secondary to apnea. Will reattempt this afternoon. Arousable and opens eyes. Spontaneous moves left upper extremity but not following commands. We check EEG today. 06/11: Resting in bed. No seizure activity more awake and following commands. Will attempt extubation today at 1700 hrs. 06/12: Resting in bed. More arousable and interactive today. No seizure activity noted. Failed extubation after 1 hour attempt yesterday. We will CPAP again today and reattempt likely tomorrow. Started on piperacillin/ tazobactam for gram-negative rupinder sputum. 06/13: Afebrile. Resting in bed in no acute distress. Failed CPAP trial for 2 hours today. Continues with copious thick green sputum. Enterobacter cloacae/ strep noted 06/14: Resting comfortably in bed in no acute distress. Attempting CPAP trial again today. Diagnosis astrocytoma noted. Oncology has discussed with family. 06/15: EEG stable without seizures. more awake, following commands. sputum tenacious and copious. too much to allow successful extubation. Subjective 06/16: still failing CPAP for secretions. will perform therapeutic bronch to assess for mucous plugging disease. dilantin level adequate based on protein levels. no seizure activity. awake following commands. 3: failed CPAP again today- became apneic. secretions are no longer a significant problem. remains awake and follows commands. long talk with her and son at bedside: explained again in detail about her oncologic diagnosis as well as her prognosis on the vent, which is quite good, except she is significantly deconditioned. Objective Vital Signs / I&O: Vital Signs 06/16/18 13:00 06/16/18 14:00 06/16/18 14:25 Temperature Pulse Rate 106 H 100 H Respiratory Rate Blood Pressure 119/60 141/65 H Pulse Oximetry 98 97 100 06/16/18 14:41 06/16/18 14:44 06/16/18 14:47 Temperature Pulse Rate 95 H 86 96 H Respiratory Rate Blood Pressure 141/63 H 199/93 H 195/87 H Pulse Oximetry 97 97 99 06/16/18 14:50 06/16/18 15:00 06/16/18 15:02 Temperature Pulse Rate 93 H 92 H 92 H Respiratory Rate Blood Pressure 170/73 H 145/65 H Pulse Oximetry 99 99 99 06/16/18 15:17 06/16/18 15:32 06/16/18 15:47 Temperature Pulse Rate 92 H 88 93 H Respiratory Rate Blood Pressure 132/61 103/51 L 127/60 Pulse Oximetry 98 97 97 06/16/18 16:00 06/16/18 16:17 06/16/18 16:44 Temperature Pulse Rate 97 H 95 H 92 H Respiratory Rate 13 Blood Pressure 122/53 L Pulse Oximetry 98 96 96 06/16/18 17:00 06/16/18 17:14 06/16/18 17:44 Temperature 37.6 C H Pulse Rate 92 H 99 H 99 H Respiratory Rate Blood Pressure 137/62 131/58 L Pulse Oximetry 96 98 97 06/16/18 17:57 06/16/18 18:00 06/16/18 18:14 Temperature Pulse Rate 98 H 100 H 100 H Respiratory Rate Blood Pressure 137/63 Pulse Oximetry 97 97 06/16/18 18:44 06/16/18 19:00 06/16/18 19:14 Temperature 37.1 C Pulse Rate 101 H 100 H 99 H Respiratory Rate 12 Blood Pressure 123/58 L 143/65 H Pulse Oximetry 97 98 97 06/16/18 19:59 06/16/18 20:00 06/16/18 20:12 Temperature Pulse Rate 100 H 92 H Respiratory Rate 13 Blood Pressure 130/58 L Pulse Oximetry 98 06/16/18 20:14 06/16/18 20:16 06/16/18 20:44 Temperature Pulse Rate 92 H 85 Respiratory Rate 12 12 Blood Pressure 120/58 L 102/54 L Pulse Oximetry 98 97 98 06/16/18 21:00 06/16/18 21:14 06/16/18 21:44 Temperature Pulse Rate 85 84 93 H Respiratory Rate 12 Blood Pressure 119/59 L 131/60 Pulse Oximetry 98 98 98 06/16/18 22:00 06/16/18 22:14 06/16/18 22:44 Temperature Pulse Rate 88 85 83 Respiratory Rate 13 Blood Pressure 119/56 L 145/66 H Pulse Oximetry 98 98 98 06/16/18 23:00 06/16/18 23:14 06/16/18 23:44 Temperature Pulse Rate 80 79 86 Respiratory Rate 12 Blood Pressure 118/55 L 148/66 H Pulse Oximetry 97 97 98 06/16/18 23:58 06/17/18 00:00 06/17/18 00:14 Temperature 37.2 C Pulse Rate 84 86 Respiratory Rate 14 Blood Pressure 127/60 Pulse Oximetry 98 97 97 06/17/18 00:44 06/17/18 01:00 06/17/18 01:14 Temperature Pulse Rate 94 H 89 90 Respiratory Rate 14 13 Blood Pressure 156/69 H 126/60 Pulse Oximetry 97 97 97 06/17/18 01:44 06/17/18 02:00 06/17/18 02:14 Temperature Pulse Rate 82 82 80 Respiratory Rate 13 12 Blood Pressure 94/55 L 113/53 L Pulse Oximetry 97 97 98 06/17/18 02:44 06/17/18 03:00 06/17/18 03:40 Temperature Pulse Rate 81 98 H 102 H Respiratory Rate 12 Blood Pressure 106/53 L 153/67 H Pulse Oximetry 98 98 97 06/17/18 03:44 06/17/18 03:54 06/17/18 04:00 Temperature Pulse Rate 100 H 93 H 107 H Respiratory Rate 20 Blood Pressure 186/79 H Pulse Oximetry 97 97 97 06/17/18 04:14 06/17/18 04:39 06/17/18 05:00 Temperature 37.2 C Pulse Rate 108 H 119 H 91 H Respiratory Rate 21 Blood Pressure 209/84 H 176/78 H Pulse Oximetry 98 96 06/17/18 05:08 06/17/18 05:14 06/17/18 05:44 Temperature Pulse Rate 126 H 109 H 124 H Respiratory Rate Blood Pressure 136/66 190/77 H 175/67 H Pulse Oximetry 96 96 96 06/17/18 06:00 06/17/18 06:14 06/17/18 06:44 Temperature Pulse Rate 121 H 84 122 H Respiratory Rate Blood Pressure 136/63 129/60 Pulse Oximetry 96 95 96 06/17/18 07:00 06/17/18 07:14 06/17/18 07:44 Temperature Pulse Rate 120 H 117 H 120 H Respiratory Rate Blood Pressure 140/67 129/65 Pulse Oximetry 96 95 95 06/17/18 08:00 06/17/18 08:14 06/17/18 08:44 Temperature Pulse Rate 121 H 120 H 102 H Respiratory Rate Blood Pressure 140/70 140/63 Pulse Oximetry 95 95 96 06/17/18 09:00 06/17/18 09:04 06/17/18 09:14 Temperature Pulse Rate 94 H 94 H 98 H Respiratory Rate 19 Blood Pressure 161/70 H Pulse Oximetry 96 97 97 06/17/18 09:44 06/17/18 10:00 06/17/18 10:14 Temperature Pulse Rate 102 H 100 H 97 H Respiratory Rate Blood Pressure 140/63 149/67 H Pulse Oximetry 97 97 96 06/17/18 10:44 06/17/18 11:00 06/17/18 11:14 Temperature Pulse Rate 100 H 80 106 H Respiratory Rate Blood Pressure 145/74 H 162/70 H Pulse Oximetry 95 94 L 95 Intake & Output 06/16/18 06/17/18 06/17/18 18:59 06:59 18:59 Intake Total 1223 / 1223 883 / 883 169 / 169 Output Total 1850 / 1850 625 / 625 Balance -627 / -627 258 / 258 169 / 169 Weight 68.3 kg Intake: IV 648 / 648 274 / 274 169 / 169 Cerebyx Inj 200 MGPE In NS Inj 108 / 108 54 / 54 54 / 54 50 ML @ 216 mls/hr IV.SIG Q8HR [facility] Rx#:[id number] Vimpat Inj 50 MG In NS Inj 100 210 / 210 105 / 105 ML @ 105 mls/hr IV.SIG Q12H ALEX[facility] Rx#:[id number] Rocephin Inj 1,000 MG In NS Inj 100 / 100 100 ML @ 200 mls/hr IV.SIG Q24H [facility] Rx#:[id number] Keppra Inj 1,500 MG In NS Inj 230 / 230 115 / 115 115 / 115 100 ML @ 400 mls/hr IV.SIG Q12H ALEXIS Rx#:[id number] Tube Feeding 425 / 425 509 / 509 Tube Irrigant 150 / 150 100 / 100 Output: Urine 300 / 300 Urine Amount (Catheter) 1550 / 1550 325 / 325 Indwelling Urethral Catheter 1550 / 1550 325 / 325 Gastric Drainage 300 / 300 Orogastric Tube 300 / 300 Other: # Incontinent Voids 2 Date of Last Bowel Movement 06/15/18 06/17/18 06/17/18 # Incontinent Bowel Movements 3 Result Diagrams: 06/17/18 05:10 06/17/18 05:10 Objective Remarks: GENERAL: This is a 78-year-old female currently orotracheally intubated SKIN: Warm and dry. EYES: Pupils equal and round. About 2 mm bilaterally and reactive, no scleral icterus. No injection or drainage. ENT: No nasal bleeding or discharge. Mucous membranes pink and moist. NECK: Trachea midline. Orotracheal intubation CARDIOVASCULAR: Regular rate and rhythm. sinus. RESPIRATORY: Normal excursions on mechanical ventilation. equal chest rise. no accessory muscle use. minimal secretions. GASTROINTESTINAL: Abdomen soft, non-tender, nondistended. No guarding MUSCULOSKELETAL: Extremities with 1+ bilateral upper and lower extremity edema. Warm, well-perfused NEUROLOGICAL: Positive cough and gag. Pupils reactive. Arousable on the ventilator and opens eyes moves all left upper, left lower and right lower extremity. Some movement right upper extremity. follows commands. GENERAL: SKIN: Warm and dry. HEAD: Atraumatic. Normocephalic. EYES: Pupils equal and round. No scleral icterus. No injection or drainage. ENT: No nasal bleeding or discharge. Mucous membranes pink and moist. NECK: Trachea midline. No JVD. CARDIOVASCULAR: Regular rate and rhythm. RESPIRATORY: No accessory muscle use. Clear to auscultation. Breath sounds equal bilaterally. GASTROINTESTINAL: Abdomen soft, non-tender, nondistended. Hepatic and splenic margins not palpable. MUSCULOSKELETAL: Extremities without clubbing, cyanosis, or edema. No obvious deformities. NEUROLOGICAL: Awake and alert. No obvious cranial nerve deficits. Motor grossly within normal limits. Five out of 5 muscle strength in the arms and legs. Normal speech. PSYCHIATRIC: Appropriate mood and affect; insight and judgment normal. Assessment and Plan - Problem List (1) Intraventricular hemorrhage, nontraumatic Code(s): I61.5 - Nontraumatic intracerebral hemorrhage, intraventricular Status: Acute (2) Hypertensive emergency Code(s): I16.1 - Hypertensive emergency Status: Acute (3) Metabolic encephalopathy Code(s): G93.41 - Metabolic encephalopathy Status: Acute (4) Altered mental status Code(s): R41.82 - Altered mental status, unspecified Status: Acute (5) History of peripheral arterial disease Code(s): Z86.79 - Personal history of other diseases of the circulatory system Status: Chronic (6) History of hypertension Code(s): Z86.79 - Personal history of other diseases of the circulatory system Status: Chronic (7) Cessation of tobacco use in previous 12 months Code(s): Z87.891 - Personal history of nicotine dependence Status: Chronic - Assessment and Plan Plan: NEURO/psych: 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 -Status post left craniotomy resection of tumor 06/0506/04/2018 (clopidogrel will be held for 7 days prior to surgery) -Oncology consult, also CT chest abdomen pelvis -right upper lobe mass with probable adrenal metastases cannot rule out liver metastases -Tight blood pressure control with nicardipine e and IV labetalol as needed, and PO meds, see below -Keep systolic blood pressure less than 150 -Supplement multivitamin thiamine given daily alcohol use -Watch closely for alcohol withdrawal -Mild alcohol withdrawal contributing to agitation -Use expected for agitation, Haldol as needed -EEG originally negative for seizures -Repeat EEG 06/06 field possible left frontal breakthrough. Loaded with fosphenytoin 1 g.. Start on 100 mg 3 times daily recheck level in a.m was 9.2 with free level around 17. Continue per neurology. -MRA 06/06 brain revealed left lateral ventricle resection, intervertebral hemorrhage slightly decreased. Small subdural hematoma. Postsurgical. Rightward shift 5 mm. Most recent EEG negative for acute seizure activity Currently on fosphenytoin 100 mg every 8 hours. Level 14. Recheck in a.m. On levetiracetam 1500 mg IV twice daily. Continue lacosamide 50 mg twice daily per neurosurgery request Neurosurgery managing antiepileptics. RESP: Acute hypoxic and hypercarbic respiratory failure- persistent Previous tobacco use Right upper lobe speak with a mass HCAP ventilator associated pneumonia -PRVC ventilation with ventilator bundle/head of bed at 30 degrees -Albuterol/ipratropium aerosols every 4 hours scheduled and as needed albuterol aerosols every 2 hours as needed -Pulmonology consulted for right upper lobe mass concerning for primary malignancy, with adrenal mass -Pulmonary Dr. Evans suggesting CT-guided biopsy and PET scan once clinically more stable -Reintubated and ISC after PACU 06/05. -Spontaneous breathing trials today again, attempt extubation when she can protect her airway. failed SBT again today for weakness. OOB to stretcher chair daily PT 7 days a week. CV: Hypertensive emergency History of hypertension Peripheral arterial disease - IV labetalol as needed for systolic blood pressure less than 150 -Continue home enalapril 40 mg daily and amlodipine 5 mg daily increased to 10 mg daily, continue pravastatin 40 mg daily. metoprolol tartrate 50 mg twice daily -Continue holding clopidogrel until cleared by neurosurgery -Decrease platelet activity noted on 06/01 -INR, PT, PTT normal GI: Left adrenal mass 1.3 x 1.2 cm Colonic diverticulosis Right liver mass versus cyst Elevated LFTs -tube feeds, lansoprazole for GI prophylax. Docusate sodium/senna 1 tablet twice daily for bowel regimen -Continue tube feedings with vital 1.5 goal 50 cc an hour : -Monitor renal function closely. ID: Enterobacter cloaca K/strep pneumonia -Day #2 piperacillin/tazobactam. Switch to ceftriaxone 1 g daily day #5: anticipated stop date 06/18 HEME: Leukocytosis Normocytic anemia -Oncology. astrocytoma by pathology. - Dr. Kapadia. FEN/ENDO: -Electrolyte replacement per protocol PROPH: -Bilateral lower extremity SCDs. Avoid chemical DVT prophylaxis until after surgery. LINES: -Utilize peripheral IVs, central line if needed (4) Altered mental status Qualifiers: Altered mental status type: unspecified Qualified Code(s): R41.82 - Altered mental status, unspecified
[2018-06-18] MEDS: Artificial Tears Opth Drops 15 ML Bottle EACH EYE SCH ×3 (04:33→20:25)
[2018-06-18] MEDS: Lacosamide Inj 50 MG in Sodium Chlor 0.9% Inj 100 ML IV.SIG SCH ×2 (05:11→18:04)
[2018-06-18] MEDS: Fosphenytoin Inj 200 MGPE in Sodium Chlor 0.9% Inj 50 ML IV.SIG SCH ×3 (05:15→23:21)
[2018-06-18 06:31] LABS: Anion Gap 8 meq/L (5-15); Blood Urea Nitrogen 16 mg/dL (7-18); Calcium 8.3 mg/dL (8.5-10.1); Carbon Dioxide 28.1 meq/L (21.0-32.0); Chloride 104 meq/L (98-107); Glomerular Filtration Rate Greater Than 89 mL/min (>89); Glucose,Random 128 mg/dL (74-106); Magnesium 2.4 mg/dL (1.5-2.5); Phenytoin (Dilantin) 6.8 mcg/mL (10.0-20.0); Phosphorus 3.8 mg/dL (2.5-4.9); Sodium 140 meq/L (136-145)
[2018-06-18 06:33] LABS: Hematocrit 28.5 % (35.0-46.0); Hemoglobin 9.4 gm/dL (11.6-15.3); Mean Corpuscular HGB Conc 33.2 % (32.0-36.0); Mean Corpuscular Volume 99.5 fL (80.0-100.0); Platelet Count 406 th/mm3 (150-450); Red Blood Count 2.86 mil/mm3 (4.00-5.30); Red Cell Distribution Width 14.9 % (11.6-17.2); White Blood Count 11.4 th/mm3 (4.0-11.0)
--- NOTE | 2018-06-18 08:14 | P.PNCC ---
Subjective Subjective Remarks/Hospital Course: Patient is a 78-year-old female with past medical history significant for hypertension, peripheral arterial disease, history of vascular intervention/ stenting, arthritis who presented to the [facility] with mostly nonspecific complaints of memory loss and hallucinations for 1 week and worsening tremors of the right arm. Further workup in the emergency department showed subacute intraventricular hemorrhage into the left lateral ventricle and a focal thrombus that may be obstructing foramina of [place]. There was enlargement of the left lateral ventricle compared to the prior MRI. Also trace blood in the occipital horn of left lateral ventricle. With evidence of intraventricular hemorrhage patient was transferred emergently to [facility] for neurosurgery consult. I evaluated the patient after arrival to the ICU. Patient is profoundly hypertensive systolic blood pressure 190-200. IV labetalol 20 mg IV push given followed by Cardene infusion started. On exam patient did not appear to be in distress. No definite focal deficit however patient is oriented only to person. Reviewed CT scan with neurosurgery Dr. Palacios. On his review CT shows 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 hemorrhagic mass at foramen of Bell with asymmetric left sided ventricular dilatation. Stat MRI of the brain with and without contrast ordered. Started on Cardene infusion with target systolic blood pressure less than 140 05/30/18: MRI brain showed 2.3 x 1.7 cm mass within the body of the left lateral ventricle measuring 2.3 x 1.7 cm left lateral ventricle is prominent may be related to production of CSF from this mass. 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 Additional mass in the cerebellopontine angle on the left compressing upon the brainstem measuring 1.8 x 1.4 cm. Slightly more agitated and confused today. Partly secondary to mass partly could be alcohol withdrawal. Placed on as needed Haldol 05/31: Patient remains sedated received Ativan a few hours before. Currently for that reason Precedex is being held. Wakes up follows some commands. Oriented to person only. Plan for craniotomy and resection of intraventricular mass scheduled tentatively for Monday. Ct chest: 1.6 x 1.1 cm spiculated RUL nodule concerning for metastasis or primary lung malignancy. 1.1 x 1.4 cm soft tissue density inferior lateral margin of the right breast implant ?focal disruption vs breast mass. CT abdomen pelvis: 1.3 cm left adrenal mass concerning for metastatic disease given findings of brain and lung mass. 1.6 cm indeterminate low-density lesion in the posterior right lobe of the liver with numerous additional subcentimeter hypodense lesions which are too small to fully characterize. Metastatic disease cannot be entirely excluded, possibly cysts. 06/01: Remains confused slightly agitated remains on Precedex. CT angiogram yesterday of the brain showed previously demonstrated intraventricular mass however no cerebellopontine angle mass. WBC count elevated to 19.1 no fever. Will check UA-previously ordered UA had not been done. Check blood cultures, chest x-ray is clear. Continue to hold Plavix 06/02: Plan is for resection of brain mass on Monday. Patient continues breathing comfortably. 06/03: Ready for OR. Labs are in order. INR 1.1. Plavix effect noted on . 06/04: Coagulation profile normal. Patient scheduled for surgery tomorrow. No new complaints. 06/05: Patient seen in PACU shortly after surgery. Brief generalized seizure terminated with Ativan 1 mg. Patient loaded with Cerebyx 1 g. Neurologic exam nonfocal at this time. Pupils pinpoint. Required reintubation due to somnolence. 06/06: T-max 100.8. Currently afebrile. Patient arousable on the ventilator. Hypotensive requiring 1 L bolus normal saline. MRI brain pending. EEG ongoing. 06/07: T-max 100.6. Currently 99.8. MRI brain showed postsurgical change with no increased hemorrhage noted. Replacing potassium, phosphorus and magnesium currently. Dexmedetomidine drip is currently off. Noted some breech with EEG yesterday. Dilantin level therapeutic. 06/08: All sedation off for about 24 hours. She will open her eyes to stimulation. Withdraws 4 limbs to stimulation but right upper extremity appears weaker. Dilantin level is therapeutic and no more seizures. We will attempt to extubate when she can control her airway. Presently too somnolent. 06/09: Possibly slightly more arousable than when I saw her for 8 hours ago. Will reflexively squeeze left upper extremity. Not currently following commands with right upper extremity for me. Tube feeding today increase antihypertensives to wean off clevidipine drip. 06/10: Currently on fosphenytoin 200 mg twice daily and levetiracetam 1500 mg twice daily. Failed CPAP trials x2 today secondary to apnea. Will reattempt this afternoon. Arousable and opens eyes. Spontaneous moves left upper extremity but not following commands. We check EEG today. 06/11: Resting in bed. No seizure activity more awake and following commands. Will attempt extubation today at 1700 hrs. 06/12: Resting in bed. More arousable and interactive today. No seizure activity noted. Failed extubation after 1 hour attempt yesterday. We will CPAP again today and reattempt likely tomorrow. Started on piperacillin/ tazobactam for gram-negative rupinder sputum. 06/13: Afebrile. Resting in bed in no acute distress. Failed CPAP trial for 2 hours today. Continues with copious thick green sputum. Enterobacter cloacae/ strep noted 06/14: Resting comfortably in bed in no acute distress. Attempting CPAP trial again today. Diagnosis astrocytoma noted. Oncology has discussed with family. 06/15: EEG stable without seizures. more awake, following commands. sputum tenacious and copious. too much to allow successful extubation. Subjective 06/16: still failing CPAP for secretions. will perform therapeutic bronch to assess for mucous plugging disease. dilantin level adequate based on protein levels. no seizure activity. awake following commands. 3: failed CPAP again today- became apneic. secretions are no longer a significant problem. remains awake and follows commands. long talk with her and son at bedside: explained again in detail about her oncologic diagnosis as well as her prognosis on the vent, which is quite good, except she is significantly deconditioned. 06/18: General level of consciousness remains the same. No more seizures and Dilantin level therapeutic in the context of low albumin. No more problems with secretions. Continue weaning trials. Continue nutritional supplementation. Objective Vital Signs / I&O: Vital Signs 06/17/18 08:14 06/17/18 08:44 06/17/18 09:00 Temperature Pulse Rate 120 H 102 H 94 H Respiratory Rate Blood Pressure 140/70 140/63 Pulse Oximetry 95 96 96 06/17/18 09:04 06/17/18 09:14 06/17/18 09:44 Temperature Pulse Rate 94 H 98 H 102 H Respiratory Rate 19 Blood Pressure 161/70 H 140/63 Pulse Oximetry 97 97 97 06/17/18 10:00 06/17/18 10:14 06/17/18 10:44 Temperature Pulse Rate 100 H 97 H 100 H Respiratory Rate Blood Pressure 149/67 H 145/74 H Pulse Oximetry 97 96 95 06/17/18 11:00 06/17/18 11:14 06/17/18 11:44 Temperature Pulse Rate 80 106 H 108 H Respiratory Rate Blood Pressure 162/70 H 161/72 H Pulse Oximetry 94 L 95 97 06/17/18 12:00 06/17/18 12:14 06/17/18 12:44 Temperature Pulse Rate 108 H 107 H 109 H Respiratory Rate Blood Pressure 156/68 H 132/95 H Pulse Oximetry 96 96 96 06/17/18 13:00 06/17/18 13:09 06/17/18 13:14 Temperature Pulse Rate 108 H 109 H Respiratory Rate 22 Blood Pressure 141/63 H Pulse Oximetry 97 97 96 06/17/18 13:44 06/17/18 14:00 06/17/18 14:03 Temperature Pulse Rate 104 H 106 H 101 H Respiratory Rate Blood Pressure 128/57 L Pulse Oximetry 96 96 06/17/18 14:29 06/17/18 14:44 06/17/18 15:00 Temperature Pulse Rate 105 H 106 H 108 H Respiratory Rate Blood Pressure 126/55 L 110/52 L Pulse Oximetry 96 96 96 06/17/18 15:14 06/17/18 15:23 06/17/18 15:44 Temperature Pulse Rate 107 H 112 H 107 H Respiratory Rate 14 Blood Pressure 121/56 L 111/55 L Pulse Oximetry 96 97 97 06/17/18 16:00 06/17/18 16:14 06/17/18 16:44 Temperature Pulse Rate 106 H 107 H 107 H Respiratory Rate Blood Pressure 117/56 L 118/59 L Pulse Oximetry 97 97 06/17/18 17:00 06/17/18 17:14 06/17/18 17:44 Temperature Pulse Rate 107 H 108 H 107 H Respiratory Rate Blood Pressure 138/61 145/64 H Pulse Oximetry 99 97 06/17/18 17:57 06/17/18 18:00 06/17/18 18:14 Temperature Pulse Rate 107 H 107 H 106 H Respiratory Rate Blood Pressure 148/91 H Pulse Oximetry 97 94 L 06/17/18 18:44 06/17/18 19:00 02/03/19 19:14 Temperature Pulse Rate 94 H 92 H 90 Respiratory Rate Blood Pressure 111/50 L 126/60 Pulse Oximetry 98 98 99 06/17/18 19:32 06/17/18 19:44 06/17/18 20:00 Temperature 99.1 F Pulse Rate 96 H 93 H 100 H Respiratory Rate 12 Blood Pressure 134/63 Pulse Oximetry 98 100 06/17/18 20:14 06/17/18 20:44 06/17/18 21:00 Temperature Pulse Rate 101 H 100 H 98 H Respiratory Rate Blood Pressure 144/60 H 131/61 Pulse Oximetry 99 100 06/17/18 21:14 06/17/18 21:44 06/17/18 21:52 Temperature Pulse Rate 101 H 77 75 Respiratory Rate Blood Pressure 141/65 H 96/51 L Pulse Oximetry 100 100 100 06/17/18 22:00 06/17/18 22:14 06/17/18 22:44 Temperature Pulse Rate 78 79 76 Respiratory Rate Blood Pressure 96/54 L Pulse Oximetry 100 100 100 06/17/18 23:00 06/17/18 23:05 06/17/18 23:14 Temperature Pulse Rate 80 84 84 Respiratory Rate Blood Pressure 123/57 L 123/55 L Pulse Oximetry 100 99 100 06/17/18 23:44 06/18/18 00:00 06/18/18 00:14 Temperature 98.3 F Pulse Rate 89 88 89 Respiratory Rate Blood Pressure 118/56 L 132/60 Pulse Oximetry 100 99 99 06/18/18 00:44 06/18/18 01:00 06/18/18 01:14 Temperature Pulse Rate 96 H 97 H 98 H Respiratory Rate Blood Pressure 133/60 158/65 H Pulse Oximetry 100 100 100 06/18/18 01:44 06/18/18 02:00 06/18/18 02:14 Temperature Pulse Rate 100 H 100 H 100 H Respiratory Rate Blood Pressure 141/63 H 142/57 H Pulse Oximetry 99 99 98 06/18/18 02:44 06/18/18 03:00 06/18/18 03:14 Temperature Pulse Rate 98 H 96 H 101 H Respiratory Rate Blood Pressure 139/64 151/61 H Pulse Oximetry 98 99 98 06/18/18 03:45 06/18/18 04:00 06/18/18 04:07 Temperature 97.3 F L Pulse Rate 81 87 87 Respiratory Rate 12 Blood Pressure 150/63 H Pulse Oximetry 99 100 100 06/18/18 04:14 06/18/18 04:44 06/18/18 05:00 Temperature Pulse Rate 83 84 89 Respiratory Rate Blood Pressure 106/57 L 123/56 L Pulse Oximetry 100 100 100 06/18/18 05:14 06/18/18 05:44 06/18/18 06:00 Temperature Pulse Rate 84 86 83 Respiratory Rate Blood Pressure 123/58 L 130/74 Pulse Oximetry 100 100 100 06/18/18 06:14 06/18/18 07:38 Temperature Pulse Rate 83 94 H Respiratory Rate 12 Blood Pressure 123/60 Pulse Oximetry 100 100 Intake & Output 06/17/18 06/18/18 06/18/18 18:59 06:59 18:59 Intake Total 1138 / 1138 969 / 969 Output Total 400 / 400 100 / 100 Balance 738 / 738 869 / 869 Weight 68.8 kg Intake: IV 488 / 488 328 / 328 Cerebyx Inj 200 MGPE In NS Inj 108 / 108 108 / 108 50 ML @ 216 mls/hr IV.SIG Q8HR ALEXIS Rx#:[id number] Cerebyx Inj 500 MGPE In NS Inj 60 / 60 50 ML @ 240 mls/hr IV.SIG ONCE ONE Rx#:[id number] Vimpat Inj 50 MG In NS Inj 100 105 / 105 105 / 105 ML @ 105 mls/hr IV.SIG Q12H ALEXIS Rx#:[id number] Rocephin Inj 1,000 MG In NS Inj 100 / 100 100 ML @ 200 mls/hr IV.SIG Q24H ALEXIS Rx#:[id number] Keppra Inj 1,500 MG In NS Inj 115 / 115 115 / 115 100 ML @ 400 mls/hr IV.SIG Q12H ALEXIS Rx#:[id number] Tube Feeding 550 / 550 591 / 591 Tube Irrigant 100 / 100 50 / 50 Output: Urine 400 / 400 100 / 100 Other: # Incontinent Voids 1 2 Date of Last Bowel Movement 06/17/18 06/17/18 # Incontinent Bowel Movements 1 Result Diagrams: 06/18/18 05:25 06/18/18 05:25 Objective Remarks: GENERAL: This is a 78-year-old female remains orotracheally intubated SKIN: Warm and dry. EYES: Pupils equal and round. About 3 mm bilaterally and reactive, no scleral icterus. No injection or drainage. ENT: No nasal bleeding or discharge. Mucous membranes pink and moist. NECK: Trachea midline. Orotracheal intubation CARDIOVASCULAR: Regular rate and rhythm. sinus. Normal S1-S2. No JVD. RESPIRATORY: Normal excursions on mechanical ventilation. Generally clear breath sounds, minimal secretions. GASTROINTESTINAL: Abdomen soft, non-tender, nondistended. No guarding, bowel sounds active. MUSCULOSKELETAL: Extremities with trace bilateral upper and lower extremity edema. Warm, well-perfused NEUROLOGICAL: Positive cough and gag. Pupils reactive. Arousable on the ventilator and opens eyes to voice. Moves left upper, left lower and right lower extremity. Some movement right upper extremity. Duplicate below - unable to erase. GENERAL: SKIN: Warm and dry. HEAD: Atraumatic. Normocephalic. EYES: Pupils equal and round. No scleral icterus. No injection or drainage. ENT: No nasal bleeding or discharge. Mucous membranes pink and moist. NECK: Trachea midline. No JVD. CARDIOVASCULAR: Regular rate and rhythm. RESPIRATORY: No accessory muscle use. Clear to auscultation. Breath sounds equal bilaterally. GASTROINTESTINAL: Abdomen soft, non-tender, nondistended. Hepatic and splenic margins not palpable. MUSCULOSKELETAL: Extremities without clubbing, cyanosis, or edema. No obvious deformities. NEUROLOGICAL: Awake and alert. No obvious cranial nerve deficits. Motor grossly within normal limits. Five out of 5 muscle strength in the arms and legs. Normal speech. PSYCHIATRIC: Appropriate mood and affect; insight and judgment normal. Assessment and Plan - Problem List (1) Intraventricular hemorrhage, nontraumatic Code(s): I61.5 - Nontraumatic intracerebral hemorrhage, intraventricular Status: Acute (2) Hypertensive emergency Code(s): I16.1 - Hypertensive emergency Status: Acute (3) Metabolic encephalopathy Code(s): G93.41 - Metabolic encephalopathy Status: Acute (4) Altered mental status Code(s): R41.82 - Altered mental status, unspecified Status: Acute (5) History of peripheral arterial disease Code(s): Z86.79 - Personal history of other diseases of the circulatory system Status: Chronic (6) History of hypertension Code(s): Z86.79 - Personal history of other diseases of the circulatory system Status: Chronic (7) Cessation of tobacco use in previous 12 months Code(s): Z87.891 - Personal history of nicotine dependence Status: Chronic - Assessment and Plan Plan: NEURO/psych: 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 -Status post left craniotomy resection of tumor 06/0506/04/2018 (clopidogrel will be held for 7 days prior to surgery) -Oncology consult, also CT chest abdomen pelvis -right upper lobe mass with probable adrenal metastases cannot rule out liver metastases -Tight blood pressure control with nicardipine e and IV labetalol as needed, and PO meds, see below -Keep systolic blood pressure less than 150 -Supplement multivitamin thiamine given daily alcohol use -Watch closely for alcohol withdrawal -Mild alcohol withdrawal contributing to agitation -Use expected for agitation, Haldol as needed -EEG originally negative for seizures -Repeat EEG 06/06 field possible left frontal breakthrough. Loaded with fosphenytoin 1 g.. Start on 100 mg 3 times daily recheck level in a.m was 9.2 with free level around 17. Continue per neurology. -MRA 06/06 brain revealed left lateral ventricle resection, intervertebral hemorrhage slightly decreased. Small subdural hematoma. Postsurgical. Rightward shift 5 mm. Most recent EEG negative for acute seizure activity Currently on fosphenytoin 200 mg every 8 hours. Corrected for free Dilantin, level 15 On levetiracetam 1500 mg IV twice daily. Continue lacosamide 50 mg twice daily per neurosurgery request Neurosurgery managing antiepileptics. No obvious change in level of sedation from AEDs RESP: Acute hypoxic and hypercarbic respiratory failure- persistent Previous tobacco use Right upper lobe speak with a mass HCAP ventilator associated pneumonia -PRVC ventilation with ventilator bundle/head of bed at 30 degrees -Albuterol/ipratropium aerosols every 4 hours scheduled and as needed albuterol aerosols every 2 hours as needed -Pulmonology consulted for right upper lobe mass concerning for primary malignancy, with adrenal mass -Pulmonary Dr. Evans suggesting CT-guided biopsy and PET scan once clinically more stable -Reintubated and ISC after PACU 06/05. -Spontaneous breathing trials today again, attempt extubation when she can protect her airway. failed SBT again today for weakness. OOB to stretcher chair daily PT 7 days a week. Daily spontaneous breathing trial CV: Hypertensive emergency History of hypertension Peripheral arterial disease - IV labetalol as needed for systolic blood pressure less than 150 -Continue home enalapril 40 mg daily and amlodipine 5 mg daily increased to 10 mg daily, continue pravastatin 40 mg daily. metoprolol tartrate 50 mg twice daily -Continue holding clopidogrel until cleared by neurosurgery -Decrease platelet activity noted on 06/01 -INR, PT, PTT edwin. -Remains normotensive GI: Left adrenal mass 1.3 x 1.2 cm Colonic diverticulosis Right liver mass versus cyst Elevated LFTs -tube feeds, lansoprazole for GI prophylax. Docusate sodium/senna 1 tablet twice daily for bowel regimen -Continue tube feedings with vital 1.5 goal 50 cc an hour -Follow blood glucose closely : -Monitor renal function closely. ID: Enterobacter cloaca K/strep pneumonia Treatment with ceftriaxone 1 g daily day #6: anticipated stop date 06/18 HEME: Leukocytosis Normocytic anemia -Oncology. astrocytoma by pathology. - Dr. Kapadia. FEN/ENDO: -Electrolyte replacement per protocol PROPH: -Bilateral lower extremity SCDs. LINES: -Utilize peripheral IVs, central line if needed Overall impression: Generally debilitated, elderly woman remains dependent on mechanical ventilation. (4) Altered mental status Qualifiers: Altered mental status type: unspecified Qualified Code(s): R41.82 - Altered mental status, unspecified
[2018-06-18] MEDS: MethylPREDNISolone Sod Succinate Inj 40 MG/ML Vial IV.PUSH SCH (09:15)
[2018-06-18] MEDS: Enoxaparin Inj 40 MG/0.4 ML Syringe SQ SCH (09:15)
[2018-06-18] MEDS: Lisinopril 20 MG Tablet PO SCH (09:16)
[2018-06-18] MEDS: Pantoprazole Inj 40 MG Vial IV.PUSH SCH (09:16)
[2018-06-18] MEDS: amLODIPine 5 MG Tablet PO SCH (09:16)
[2018-06-18] MEDS: Senna/Docusate Sodium 8.6/50 MG Tablet PO SCH ×2 (09:17→20:18)
[2018-06-18] MEDS: Sodium Chloride 1 GM Tablet PO SCH ×2 (09:17→20:25)
[2018-06-18] MEDS: Metoprolol Tartrate 50 MG Tablet PO SCH ×2 (09:17→20:25)
[2018-06-18] MEDS: Budesonide-Formoterol 160/4.5 MCG 6 GM Inhaler INH SCH ×2 (09:18→20:26)
--- NOTE | 2018-06-18 10:34 | P.PNNS ---
Subjective Interval history: no neuro changes, continues with CPAP trials <Samanta Banda - Last Filed: 06/18/18 10:31> Physical Exam Vital signs: Vital Signs 06/17/18 10:44 06/17/18 11:00 06/17/18 11:14 Temperature Pulse Rate 100 H 80 106 H Respiratory Rate Blood Pressure 145/74 H 162/70 H Pulse Oximetry 95 94 L 95 06/17/18 11:44 06/17/18 12:00 06/17/18 12:14 Temperature Pulse Rate 108 H 108 H 107 H Respiratory Rate Blood Pressure 161/72 H 156/68 H Pulse Oximetry 97 96 96 06/17/18 12:44 06/17/18 13:00 06/17/18 13:09 Temperature Pulse Rate 109 H 108 H Respiratory Rate 22 Blood Pressure 132/95 H Pulse Oximetry 96 97 97 06/17/18 13:14 06/17/18 13:44 06/17/18 14:00 Temperature Pulse Rate 109 H 104 H 106 H Respiratory Rate Blood Pressure 141/63 H 128/57 L Pulse Oximetry 96 96 06/17/18 14:03 06/17/18 14:29 06/17/18 14:44 Temperature Pulse Rate 101 H 105 H 106 H Respiratory Rate Blood Pressure 126/55 L 110/52 L Pulse Oximetry 96 96 96 06/17/18 15:00 06/17/18 15:14 06/17/18 15:23 Temperature Pulse Rate 108 H 107 H 112 H Respiratory Rate 14 Blood Pressure 121/56 L Pulse Oximetry 96 96 97 06/17/18 15:44 06/17/18 16:00 06/17/18 16:14 Temperature Pulse Rate 107 H 106 H 107 H Respiratory Rate Blood Pressure 111/55 L 117/56 L Pulse Oximetry 97 97 06/17/18 16:44 06/17/18 17:00 06/17/18 17:14 Temperature Pulse Rate 107 H 107 H 108 H Respiratory Rate Blood Pressure 118/59 L 138/61 Pulse Oximetry 97 99 06/17/18 17:44 06/17/18 17:57 06/17/18 18:00 Temperature Pulse Rate 107 H 107 H 107 H Respiratory Rate Blood Pressure 145/64 H Pulse Oximetry 97 97 06/17/18 18:14 06/17/18 18:44 02/03/19 19:00 Temperature Pulse Rate 106 H 94 H 92 H Respiratory Rate Blood Pressure 148/91 H 111/50 L Pulse Oximetry 94 L 98 98 06/17/18 19:14 06/17/18 19:32 06/17/18 19:44 Temperature Pulse Rate 90 96 H 93 H Respiratory Rate 12 Blood Pressure 126/60 134/63 Pulse Oximetry 99 98 100 06/17/18 20:00 06/17/18 20:14 06/17/18 20:44 Temperature 99.1 F Pulse Rate 100 H 101 H 100 H Respiratory Rate Blood Pressure 144/60 H 131/61 Pulse Oximetry 99 06/17/18 21:00 06/17/18 21:14 06/17/18 21:44 Temperature Pulse Rate 98 H 101 H 77 Respiratory Rate Blood Pressure 141/65 H Pulse Oximetry 100 100 100 06/17/18 21:52 06/17/18 22:00 06/17/18 22:14 Temperature Pulse Rate 75 78 79 Respiratory Rate Blood Pressure 96/51 L 96/54 L Pulse Oximetry 100 100 100 06/17/18 22:44 06/17/18 23:00 06/17/18 23:05 Temperature Pulse Rate 76 80 84 Respiratory Rate Blood Pressure 123/57 L Pulse Oximetry 100 100 99 06/17/18 23:14 06/17/18 23:44 06/18/18 00:00 Temperature 98.3 F Pulse Rate 84 89 88 Respiratory Rate Blood Pressure 123/55 L 118/56 L Pulse Oximetry 100 100 99 06/18/18 00:14 06/18/18 00:44 06/18/18 01:00 Temperature Pulse Rate 89 96 H 97 H Respiratory Rate Blood Pressure 132/60 133/60 Pulse Oximetry 99 100 100 06/18/18 01:14 06/18/18 01:44 06/18/18 02:00 Temperature Pulse Rate 98 H 100 H 100 H Respiratory Rate Blood Pressure 158/65 H 141/63 H Pulse Oximetry 100 99 99 06/18/18 02:14 06/18/18 02:44 06/18/18 03:00 Temperature Pulse Rate 100 H 98 H 96 H Respiratory Rate Blood Pressure 142/57 H 139/64 Pulse Oximetry 98 98 99 06/18/18 03:14 06/18/18 03:45 06/18/18 04:00 Temperature 97.3 F L Pulse Rate 101 H 81 87 Respiratory Rate Blood Pressure 151/61 H 150/63 H Pulse Oximetry 98 99 100 06/18/18 04:07 06/18/18 04:14 06/18/18 04:44 Temperature Pulse Rate 87 83 84 Respiratory Rate 12 Blood Pressure 106/57 L 123/56 L Pulse Oximetry 100 100 100 06/18/18 05:00 06/18/18 05:14 06/18/18 05:44 Temperature Pulse Rate 89 84 86 Respiratory Rate Blood Pressure 123/58 L 130/74 Pulse Oximetry 100 100 100 06/18/18 06:00 06/18/18 06:14 06/18/18 07:38 Temperature Pulse Rate 83 83 94 H Respiratory Rate 12 Blood Pressure 123/60 Pulse Oximetry 100 100 100 Intake & Output 06/17/18 06/18/18 06/18/18 18:59 06:59 18:59 Intake Total 1138 / 1138 969 / 969 Output Total 400 / 400 100 / 100 Balance 738 / 738 869 / 869 Weight 68.8 kg Intake: IV 488 / 488 328 / 328 Cerebyx Inj 200 MGPE In NS Inj 108 / 108 108 / 108 50 ML @ 216 mls/hr IV.SIG Q8HR ALEX[facility] Rx#:[id number] Cerebyx Inj 500 MGPE In NS Inj 60 / 60 50 ML @ 240 mls/hr IV.SIG ONCE ONE Rx#:[id number] Vimpat Inj 50 MG In NS Inj 100 105 / 105 105 / 105 ML @ 105 mls/hr IV.SIG Q12H ALEX[facility] Rx#:[id number] Rocephin Inj 1,000 MG In NS Inj 100 / 100 100 ML @ 200 mls/hr IV.SIG Q24H ALEX[facility] Rx#:[id number] Keppra Inj 1,500 MG In NS Inj 115 / 115 115 / 115 100 ML @ 400 mls/hr IV.SIG Q12H ALEXIS Rx#:[id number] Tube Feeding 550 / 550 591 / 591 Tube Irrigant 100 / 100 50 / 50 Output: Urine 400 / 400 100 / 100 Other: # Incontinent Voids 1 2 Date of Last Bowel Movement 06/17/18 06/17/18 # Incontinent Bowel Movements 1 Narrative: remains intubated, awake, alert, interacting, nodding appropriately and trying to mouth words. follows commands extremities, weaker on the right wound healing well - Urinary Catheter Management Female External Cath placed during this visit: no Reason for continuing: Not indwelling catheter Indwelling Urethral Catheter Cath placed during this visit: yes, but has since been removed by the nurse Reason for continuing: Decision to DC catheter Insertion date: 06/05/18 Insertion time: 08:30 Removal date: 06/16/18 Removal time: 21:51 <Samanta Banda - Last Filed: 06/18/18 10:31> Vital signs: Vital Signs 06/17/18 16:00 06/17/18 16:14 06/17/18 16:44 Temperature Pulse Rate 106 H 107 H 107 H Respiratory Rate Blood Pressure 117/56 L 118/59 L Pulse Oximetry 97 97 06/17/18 17:00 06/17/18 17:14 06/17/18 17:44 Temperature Pulse Rate 107 H 108 H 107 H Respiratory Rate Blood Pressure 138/61 145/64 H Pulse Oximetry 99 97 06/17/18 17:57 06/17/18 18:00 06/17/18 18:14 Temperature Pulse Rate 107 H 107 H 106 H Respiratory Rate Blood Pressure 148/91 H Pulse Oximetry 97 94 L 06/17/18 18:44 06/17/18 19:00 06/17/18 19:14 Temperature Pulse Rate 94 H 92 H 90 Respiratory Rate Blood Pressure 111/50 L 126/60 Pulse Oximetry 98 98 99 06/17/18 19:32 06/17/18 19:44 06/17/18 20:00 Temperature 99.1 F Pulse Rate 96 H 93 H 100 H Respiratory Rate 12 Blood Pressure 134/63 Pulse Oximetry 98 100 06/17/18 20:14 06/17/18 20:44 06/17/18 21:00 Temperature Pulse Rate 101 H 100 H 98 H Respiratory Rate Blood Pressure 144/60 H 131/61 Pulse Oximetry 99 100 06/17/18 21:14 06/17/18 21:44 06/17/18 21:52 Temperature Pulse Rate 101 H 77 75 Respiratory Rate Blood Pressure 141/65 H 96/51 L Pulse Oximetry 100 100 100 06/17/18 22:00 06/17/18 22:14 06/17/18 22:44 Temperature Pulse Rate 78 79 76 Respiratory Rate Blood Pressure 96/54 L Pulse Oximetry 100 100 100 06/17/18 23:00 02/03/19 23:05 06/17/18 23:14 Temperature Pulse Rate 80 84 84 Respiratory Rate Blood Pressure 123/57 L 123/55 L Pulse Oximetry 100 99 100 06/17/18 23:44 06/18/18 00:00 06/18/18 00:14 Temperature 98.3 F Pulse Rate 89 88 89 Respiratory Rate Blood Pressure 118/56 L 132/60 Pulse Oximetry 100 99 99 06/18/18 00:44 06/18/18 01:00 06/18/18 01:14 Temperature Pulse Rate 96 H 97 H 98 H Respiratory Rate Blood Pressure 133/60 158/65 H Pulse Oximetry 100 100 100 06/18/18 01:44 06/18/18 02:00 06/18/18 02:14 Temperature Pulse Rate 100 H 100 H 100 H Respiratory Rate Blood Pressure 141/63 H 142/57 H Pulse Oximetry 99 99 98 06/18/18 02:44 06/18/18 03:00 06/18/18 03:14 Temperature Pulse Rate 98 H 96 H 101 H Respiratory Rate Blood Pressure 139/64 151/61 H Pulse Oximetry 98 99 98 06/18/18 03:45 06/18/18 04:00 06/18/18 04:07 Temperature 97.3 F L Pulse Rate 81 87 87 Respiratory Rate 12 Blood Pressure 150/63 H Pulse Oximetry 99 100 100 06/18/18 04:14 06/18/18 04:44 06/18/18 05:00 Temperature Pulse Rate 83 84 89 Respiratory Rate Blood Pressure 106/57 L 123/56 L Pulse Oximetry 100 100 100 06/18/18 05:14 06/18/18 05:44 06/18/18 06:00 Temperature Pulse Rate 84 86 83 Respiratory Rate Blood Pressure 123/58 L 130/74 Pulse Oximetry 100 100 100 06/18/18 06:14 06/18/18 06:44 06/18/18 07:00 Temperature Pulse Rate 83 92 H 93 H Respiratory Rate 12 12 Blood Pressure 123/60 146/65 H Pulse Oximetry 100 100 100 06/18/18 07:14 06/18/18 07:38 06/18/18 07:44 Temperature Pulse Rate 95 H 94 H 93 H Respiratory Rate 12 Blood Pressure 124/58 L 120/58 L Pulse Oximetry 100 100 100 06/18/18 08:00 06/18/18 08:14 06/18/18 08:44 Temperature 99.6 F Pulse Rate 85 99 H 96 H Respiratory Rate 12 Blood Pressure 133/63 126/57 L Pulse Oximetry 100 100 100 06/18/18 09:00 06/18/18 09:14 06/18/18 09:44 Temperature Pulse Rate 96 H 94 H 95 H Respiratory Rate 12 Blood Pressure 129/58 L 129/58 L Pulse Oximetry 100 100 98 06/18/18 10:00 06/18/18 10:14 06/18/18 10:44 Temperature Pulse Rate 83 86 78 Respiratory Rate 12 Blood Pressure 124/57 L 119/57 L Pulse Oximetry 98 98 98 06/18/18 11:00 06/18/18 11:14 06/18/18 11:44 Temperature Pulse Rate 80 85 84 Respiratory Rate 18 14 Blood Pressure 122/59 L 135/60 Pulse Oximetry 98 98 97 06/18/18 12:00 06/18/18 12:14 06/18/18 12:44 Temperature 100.0 F H Pulse Rate 87 89 91 H Respiratory Rate 26 H Blood Pressure 131/58 L 147/65 H Pulse Oximetry 98 97 98 06/18/18 13:00 06/18/18 13:14 06/18/18 13:44 Temperature Pulse Rate 91 H 94 H 98 H Respiratory Rate 27 H Blood Pressure 150/64 H 157/69 H Pulse Oximetry 97 97 97 Intake & Output 06/17/18 06/18/18 06/18/18 18:59 06:59 18:59 Intake Total 1138 / 1138 969 / 969 Output Total 400 / 400 100 / 100 Balance 738 / 738 869 / 869 Weight 68.8 kg Intake: IV 488 / 488 328 / 328 Cerebyx Inj 200 MGPE In NS Inj 108 / 108 108 / 108 50 ML @ 216 mls/hr IV.SIG Q8HR [facility] Rx#:[id number] Cerebyx Inj 500 MGPE In NS Inj 60 / 60 50 ML @ 240 mls/hr IV.SIG ONCE ONE Rx#:[id number] Vimpat Inj 50 MG In NS Inj 100 105 / 105 105 / 105 ML @ 105 mls/hr IV.SIG Q12H [facility] Rx#:[id number] Rocephin Inj 1,000 MG In NS Inj 100 / 100 100 ML @ 200 mls/hr IV.SIG Q24H [facility] Rx#:[id number] Keppra Inj 1,500 MG In NS Inj 115 / 115 115 / 115 100 ML @ 400 mls/hr IV.SIG Q12H [facility]LEX[facility] Rx#:[id number] Tube Feeding 550 / 550 591 / 591 Tube Irrigant 100 / 100 50 / 50 Output: Urine 400 / 400 100 / 100 Other: # Incontinent Voids 1 2 Date of Last Bowel Movement 06/17/18 06/17/18 # Incontinent Bowel Movements 1 - Urinary Catheter Management Female External Cath placed during this visit: no Indwelling Urethral Catheter Cath placed during this visit: no <Duke Palacios - Last Filed: 06/18/18 16:00> Assessment and Plan - Plan 78 yo female with vague constellation of symptoms GCS-[address] shows 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 hemorrhagic mass Will follow with you 05/30/18: cont neuro checks in ICU Dr. 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 at midnight on Monday night into Monday Minimize sedating meds, etc. 06/03/18: Appears to be a bit more encephalopathic today, possible contribution of hospital delirium versus her mild hydrocephalus, though favor delirium since her level of alertness remains stable Dr. 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 at midnight tonight Continue to minimize sedating meds, etc. 06/04/18: surgery rescheduled for tomorrow morning patient may resume diet today, NPO at [place] tonight cont hold Plavix 06/05/18 in OR for left frontal cranitomy for resection of intraventricular tumor by Dr. Palacios 06/06/18: POD #1. pt had seizure last night requiring intubation. She has been started on Keppra for seizures. On exam she opens eyes and follows commands. Postoperative MRI Brain w/wo contrast has been ordered and pending. Obtain EEG to assess seizures. Continue ventriculostomy draining, add ICP monitoring. Start sq lovenox for dvt prophylaxis. Will follow. 06/07/18: POD #2. patient neurologically stable, opens eyes and follows commands. Postoperative MRI Brain reviewed by neurosurgery team. Spot EEG reports no ongoing seizures, with high amplitude sharp waves on left?breach rhythm. Critical care plans on extubation today. Continue ventriculostomy draining at 10 mmHg. Final pathology pending. Neurology following for seizure management. Will follow. 06/08/18: POD #3. patient neurologically stable, opens eyes and follows commands. Ventriculostomy draining well with controlled ICPs, will continue at 10mmHg. Pathology still pending. cont seizure management per Neurology. dw critical care. will follow. 06/09/2018 POD#4 Remains Neurologically stable, follows commands Stop sedation wean ventilator to CPAP 5 x 12 and FiO2 30% Continue DuoNeb nebs 4 times daily. Check respiratory parameters and consider extubation Agree with Symbicort 160 about 4.5 mcg 1 puff twice daily and Solu-Medrol 40 mg IV twice daily Continue EVD Would maintain SBP 140-160 to improve CPP. 06/10/2018 POD#5 Seizure yesterday, and last night, have increased Cerebyx and Keppra D/C'ed Barbs would prefer to maintain on 2 agents and high therapeutic levels of Cerebyx, usually best with brain tumors Free Dilantin levels not easily obtainable here. Lets keep level around 20 with standard level remains Neurologically stable wean ventilator to CPAP 5 x 12 and FiO2 30% and if OK, may extubate from Neurosurgical standpoint. 06/11/18 POD #6 seizures controlled overnight, will continue Cerebyx 200 tid and Keppra 1500 bid. Dilantin levels 17.6 today continue critical care - vent weaning - CPAP trials cont EVD draining at 5 mmHg final pathology still pending will follow 06/12/18 POD #7 pt failed extubation yesterday, reintubated- critical care managing repeat EEG 06/11/18 abnormal with sharp activities left hemisphere dilantin levels 18.8 this morning cont current anticonvulsants, will repeat EEG today obtained follow up CT Brain this morning which was reviewed by Dr. Perdue, EVD raised to 15 mmHg neuro exam today appears better final pathology still pending 06/13/18 POD #8 neurologically she is awake, alert EEG yesterday 06/12/18 - mod encephalopathy, no reports of any seizure activities cont current anticonvulsants, Dilantin levels trending up pending today, started on Zosyn for gram neg rods in sputum - per critical care cont EVD challenge, cont at 15 mmHg today, plan to clamp tomorrow will follow 06/14/18 POD #9 neurologically remains awake and alert Ventriculostomy drain clamped today, follow up CT Head tomorrow am will follow 06/15/18: POD #10 neuro exam with no changes, f/u CT Head post EVD clamping reviewed by neurosurgery team, ventriculostomy drain removed, using sterile technique single stitch place, patient tolerated procedure well cont critical care management seizures controlled, continue current anticonvulsants FINAL PATHOLOGY: LOW GRADE NEOPLASM, MOST CONSISTENT WITH PILOCYTIC ASTROCYTOMA ; 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 current management Discussed Path with patient's son 06/17/2018 POD#12 Neuro: no sig. changes seizures controlled aggressive CPAP trials today DPH level 5.5 Bolused with 500 mgs. cont. ICU 06/18/2018 no neurological changes continue CPAP trials, vent wean to extubate remove surgical mamadou Dr. Palacios to meet with family this morning will follow <Samanta Banda - Last Filed: 06/18/18 10:31> - Attending Attestation Doing well Remains Neurologically stable sutures out tomorrow CPAP trials Will speak with RT, Discussed case and prognosis with patient's and son I have personally seen and examined the patient, reviewed pertinent labs and imaging studies with the Neurosurgery team. I agree with Ms. Banda's ( Neurosurgery PA), assessment as well as plan of care. <Duke Palacios - Last Filed: 06/18/18 16:00>
[2018-06-18] MEDS: levETIRAcetam Inj 1,500 MG in Sodium Chlor 0.9% Inj 100 ML IV.SIG SCH ×2 (13:04→23:21)
--- NOTE | 2018-06-18 14:46 | P.DIET ---
Nutritional Evaluation Type of nutrition evaluation: follow-up Nutrition consult regarding: Tube Feeding Objective - Diagnosis Brain Bleed - Objective % IBW: 99 (IBW = 150#) Energy Needs - Lower Range (kCal/kg): 25 Energy Needs - Upper Range (kCal/kg): 30 Lower Limit kCal/kg (kCals): 1,683 Upper Limit kCal/kg (kCals): 2,019 Lower Limit Protein Factor (Grams per Kg): 1.2 Upper Limit Protein Factor (Grams per Kg): 1.6 Lower Protein Needs (Protein): 81 Upper Protein Needs (Protein): 108 Dietitian Reviewed in Medical Record: Curent medications, Intake & Output, Labs , Medical history, Tube feeding Diet Order: NPO Assessment Assessment: 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 Pt currently intubated with several failed extubation attempts. Currently receiving Vital 1.5 @50mls/hour and tolerating goal rate. Will continue to recommend current TF order at this time and monitor tolerance. Dietitian following. Recommendations: Vital 1.5 @ 50 mls/hr goal Dietitian to Monitor: Lab values, Intake & Output, Tube feeding tolerance, Weight change, Medical course
--- NOTE | 2018-06-18 19:10 | P.PN ---
Subjective Interval history: Remains on ventilator support and on CPAP this morning. Tolerated CPAP for 2 hours. No seizures noted. On nutritional support with tube feeds. Physical Exam Vital signs: Vital Signs 06/17/18 19:14 06/17/18 19:32 06/17/18 19:44 Temperature Pulse Rate 90 96 H 93 H Respiratory Rate 12 Blood Pressure 126/60 134/63 Pulse Oximetry 99 98 100 06/17/18 20:00 06/17/18 20:14 06/17/18 20:44 Temperature 99.1 F Pulse Rate 100 H 101 H 100 H Respiratory Rate Blood Pressure 144/60 H 131/61 Pulse Oximetry 99 06/17/18 21:00 06/17/18 21:14 06/17/18 21:44 Temperature Pulse Rate 98 H 101 H 77 Respiratory Rate Blood Pressure 141/65 H Pulse Oximetry 100 100 100 06/17/18 21:52 06/17/18 22:00 06/17/18 22:14 Temperature Pulse Rate 75 78 79 Respiratory Rate Blood Pressure 96/51 L 96/54 L Pulse Oximetry 100 100 100 06/17/18 22:44 06/17/18 23:00 06/17/18 23:05 Temperature Pulse Rate 76 80 84 Respiratory Rate Blood Pressure 123/57 L Pulse Oximetry 100 100 99 06/17/18 23:14 06/17/18 23:44 06/18/18 00:00 Temperature 98.3 F Pulse Rate 84 89 88 Respiratory Rate Blood Pressure 123/55 L 118/56 L Pulse Oximetry 100 100 99 06/18/18 00:14 06/18/18 00:44 06/18/18 01:00 Temperature Pulse Rate 89 96 H 97 H Respiratory Rate Blood Pressure 132/60 133/60 Pulse Oximetry 99 100 100 06/18/18 01:14 06/18/18 01:44 06/18/18 02:00 Temperature Pulse Rate 98 H 100 H 100 H Respiratory Rate Blood Pressure 158/65 H 141/63 H Pulse Oximetry 100 99 99 06/18/18 02:14 06/18/18 02:44 06/18/18 03:00 Temperature Pulse Rate 100 H 98 H 96 H Respiratory Rate Blood Pressure 142/57 H 139/64 Pulse Oximetry 98 98 99 06/18/18 03:14 06/18/18 03:45 06/18/18 04:00 Temperature 97.3 F L Pulse Rate 101 H 81 87 Respiratory Rate Blood Pressure 151/61 H 150/63 H Pulse Oximetry 98 99 100 06/18/18 04:07 06/18/18 04:14 06/18/18 04:44 Temperature Pulse Rate 87 83 84 Respiratory Rate 12 Blood Pressure 106/57 L 123/56 L Pulse Oximetry 100 100 100 06/18/18 05:00 06/18/18 05:14 06/18/18 05:44 Temperature Pulse Rate 89 84 86 Respiratory Rate Blood Pressure 123/58 L 130/74 Pulse Oximetry 100 100 100 06/18/18 06:00 06/18/18 06:14 06/18/18 06:44 Temperature Pulse Rate 83 83 92 H Respiratory Rate 12 Blood Pressure 123/60 146/65 H Pulse Oximetry 100 100 100 06/18/18 07:00 06/18/18 07:14 06/18/18 07:38 Temperature Pulse Rate 93 H 95 H 94 H Respiratory Rate 12 12 Blood Pressure 124/58 L Pulse Oximetry 100 100 100 06/18/18 07:44 06/18/18 08:00 06/18/18 08:14 Temperature 99.6 F Pulse Rate 93 H 85 99 H Respiratory Rate 12 Blood Pressure 120/58 L 133/63 Pulse Oximetry 100 100 100 06/18/18 08:44 06/18/18 09:00 06/18/18 09:14 Temperature Pulse Rate 96 H 96 H 94 H Respiratory Rate 12 Blood Pressure 126/57 L 129/58 L Pulse Oximetry 100 100 100 06/18/18 09:44 06/18/18 10:00 06/18/18 10:14 Temperature Pulse Rate 95 H 83 86 Respiratory Rate 12 Blood Pressure 129/58 L 124/57 L Pulse Oximetry 98 98 98 06/18/18 10:44 06/18/18 11:00 06/18/18 11:14 Temperature Pulse Rate 78 80 85 Respiratory Rate 18 14 Blood Pressure 119/57 L 122/59 L Pulse Oximetry 98 98 98 06/18/18 11:44 06/18/18 12:00 06/18/18 12:14 Temperature 100.0 F H Pulse Rate 84 87 89 Respiratory Rate 26 H Blood Pressure 135/60 131/58 L Pulse Oximetry 97 98 97 06/18/18 12:44 06/18/18 13:00 06/18/18 13:14 Temperature Pulse Rate 91 H 91 H 94 H Respiratory Rate 27 H Blood Pressure 147/65 H 150/64 H Pulse Oximetry 98 97 97 06/18/18 13:44 06/18/18 14:00 06/18/18 14:14 Temperature Pulse Rate 98 H 99 H 95 H Respiratory Rate Blood Pressure 157/69 H 141/63 H Pulse Oximetry 97 97 96 06/18/18 14:44 06/18/18 15:00 06/18/18 15:14 Temperature Pulse Rate 95 H 97 H 97 H Respiratory Rate Blood Pressure 134/62 166/67 H Pulse Oximetry 97 96 98 06/18/18 15:55 06/18/18 16:00 06/18/18 16:01 Temperature 99.3 F Pulse Rate 96 H 103 H 96 H Respiratory Rate 20 Blood Pressure 147/65 H Pulse Oximetry 100 98 99 06/18/18 16:02 06/18/18 16:05 06/18/18 17:00 Temperature Pulse Rate 97 H 99 H 86 Respiratory Rate Blood Pressure 143/60 H 158/67 H Pulse Oximetry 100 99 99 06/18/18 17:05 06/18/18 18:00 06/18/18 18:05 Temperature Pulse Rate 87 103 H 100 H Respiratory Rate Blood Pressure 141/63 H 158/69 H Pulse Oximetry 99 100 99 Intake & Output 06/18/18 06/18/18 06/19/18 06:59 18:59 06:59 Intake Total 969 / 969 1054 / 1054 Output Total 100 / 100 275 / 275 Balance 869 / 869 779 / 779 Weight 68.8 kg Intake: IV 328 / 328 374 / 374 Cerebyx Inj 200 MGPE In NS Inj 108 / 108 54 / 54 50 ML @ 216 mls/hr IV.SIG Q8HR [facility] Rx#:[id number] Vimpat Inj 50 MG In NS Inj 100 105 / 105 105 / 105 ML @ 105 mls/hr IV.SIG Q12H [facility] Rx#:[id number] Rocephin Inj 1,000 MG In NS Inj 100 / 100 100 ML @ 200 mls/hr IV.SIG Q24H [facility] Rx#:[id number] Keppra Inj 1,500 MG In NS Inj 115 / 115 115 / 115 100 ML @ 400 mls/hr IV.SIG Q12H [facility] Rx#:[id number] Tube Feeding 591 / 591 560 / 560 Tube Irrigant 50 / 50 Water Bolus Amount 120 / 120 Output: Urine 100 / 100 275 / 275 Other: # Voids 3 # Incontinent Voids 2 Date of Last Bowel Movement 06/17/18 06/18/18 # Bowel Movements 1 # Incontinent Bowel Movements 1 Narrative: remains intubated, GENERAL: Middle-aged averagely built white female on vent support SKIN: Warm and dry. HEAD: Atraumatic. Normocephalic. EYES: Pupils equal and round. No scleral icterus. No injection or drainage. ENT: No nasal bleeding or discharge. Mucous membranes pink and moist. NECK: Trachea midline. No JVD. CARDIOVASCULAR: Regular rate and rhythm. RESPIRATORY: Occasional bilateral wheezes .breath sounds equal bilaterally. GASTROINTESTINAL: Abdomen soft, non-tender, nondistended. Hepatic and splenic margins not palpable. MUSCULOSKELETAL: Extremities without clubbing, cyanosis, or edema. No obvious deformities. NEUROLOGICAL: . Lethargic and assisting the ventilator. Responds to some commands. - Urinary Catheter Management Female External Cath placed during this visit: no Reason for continuing: Not indwelling catheter Indwelling Urethral Catheter Cath placed during this visit: yes, but has since been removed by the nurse Reason for continuing: Decision to DC catheter Insertion date: 06/05/18 Insertion time: 08:30 Removal date: 06/16/18 Removal time: 21:51 Results - Labs CBC & Chem 7: 06/18/18 05:25 06/18/18 05:25 Laboratory Results - last 24 hr 06/18/18 06/18/18 05:25 05:25 WBC 11.4 H RBC 2.86 L Hgb 9.4 L Hct 28.5 L MCV 99.5 MCH 33.0 MCHC 33.2 RDW 14.9 Plt Count 406 MPV 7.0 Sodium 140 Potassium 4.0 Chloride 104 Carbon Dioxide 28.1 Anion Gap 8 BUN 16 Creatinine 0.35 L Estimated GFR Greater than 89 Random Glucose 128 H Calcium 8.3 L Phosphorus 3.8 Magnesium 2.4 Phenytoin 6.8 L Assessment and Plan - Assessment (1) COPD (chronic obstructive pulmonary disease) Code(s): J44.9 - Chronic obstructive pulmonary disease, unspecified Status: Acute (2) Right upper lobe pulmonary nodule Code(s): R91.1 - Solitary pulmonary nodule Status: Acute (3) Intraventricular hemorrhage, nontraumatic Code(s): I61.5 - Nontraumatic intracerebral hemorrhage, intraventricular Status: Acute (4) Hypertensive emergency Code(s): I16.1 - Hypertensive emergency Status: Acute (5) Metabolic encephalopathy Code(s): G93.41 - Metabolic encephalopathy Status: Acute (6) Altered mental status Code(s): R41.82 - Altered mental status, unspecified Status: Acute (7) History of peripheral arterial disease Code(s): Z86.79 - Personal history of other diseases of the circulatory system Status: Chronic (8) History of hypertension Code(s): Z86.79 - Personal history of other diseases of the circulatory system Status: Chronic (9) Cessation of tobacco use in previous 12 months Code(s): Z87.891 - Personal history of nicotine dependence Status: Chronic - Plan 1 continue CPAP trials 5/12 daily, and FiO2 35% 2. Continue DuoNeb nebs 4 times daily. 3. Chest x-ray in a.m. 4. Workup for lung mass when clinically stable 5. Continue antibiotics as ordered 6 Symbicort 160 about 4.5 mcg 1 puff twice daily 7. DC Solu-Medrol 8. Continue antibiotics as ordered 9. Tube feedings at 50 cc/h Jevity 10. Add prednisone 10 mg twice daily (6) Altered mental status Qualifiers: Altered mental status type: unspecified Qualified Code(s): R41.82 - Altered mental status, unspecified
[2018-06-18] MEDS: predniSONE 10 MG Tablet PO SCH (20:25)
[2018-06-19] MEDS: Artificial Tears Opth Drops 15 ML Bottle EACH EYE SCH ×3 (03:51→20:08)
[2018-06-19] MEDS: Lacosamide Inj 50 MG in Sodium Chlor 0.9% Inj 100 ML IV.SIG SCH ×2 (05:06→16:15)
[2018-06-19] MEDS: Fosphenytoin Inj 200 MGPE in Sodium Chlor 0.9% Inj 50 ML IV.SIG SCH ×3 (05:08→21:53)
[2018-06-19 06:01] LABS: Hematocrit 26.2 % (35.0-46.0); Hemoglobin 9.1 gm/dL (11.6-15.3); Mean Corpuscular HGB Conc 34.6 % (32.0-36.0); Mean Corpuscular Hemoglobin 34.7 pg (27.0-34.0); Mean Corpuscular Volume 100.3 fL (80.0-100.0); Mean Platelet Volume 7.5 fL (7.0-11.0); Platelet Count 384 th/mm3 (150-450); Red Blood Count 2.61 mil/mm3 (4.00-5.30); Red Cell Distribution Width 14.3 % (11.6-17.2); White Blood Count 13.1 th/mm3 (4.0-11.0)
[2018-06-19 06:23] LABS: Anion Gap 8 meq/L (5-15); Blood Urea Nitrogen 17 mg/dL (7-18); Calcium 7.9 mg/dL (8.5-10.1); Chloride 105 meq/L (98-107); Glomerular Filtration Rate Greater Than 89 mL/min (>89); Glucose,Random 115 mg/dL (74-106); Magnesium 2.3 mg/dL (1.5-2.5); Phosphorus 3.6 mg/dL (2.5-4.9); Potassium 4.2 meq/L (3.5-5.1); Sodium 141 meq/L (136-145)
[2018-06-19] MEDS: Senna/Docusate Sodium 8.6/50 MG Tablet PO SCH ×2 (08:38→20:07)
[2018-06-19] MEDS: amLODIPine 5 MG Tablet PO SCH (08:38)
[2018-06-19] MEDS: Lisinopril 20 MG Tablet PO SCH (08:38)
[2018-06-19] MEDS: Metoprolol Tartrate 50 MG Tablet PO SCH (08:38)
[2018-06-19] MEDS: Budesonide-Formoterol 160/4.5 MCG 6 GM Inhaler INH SCH ×2 (08:39→21:52)
[2018-06-19] MEDS: Pantoprazole Inj 40 MG Vial IV.PUSH SCH (08:44)
[2018-06-19] MEDS: Enoxaparin Inj 40 MG/0.4 ML Syringe SQ SCH (08:44)
[2018-06-19] MEDS: Sodium Chloride 1 GM Tablet PO SCH ×2 (08:44→20:07)
[2018-06-19] MEDS: predniSONE 10 MG Tablet PO SCH (08:44)
--- NOTE | 2018-06-19 10:27 | P.PNNS ---
Subjective Interval history: intubated <SoloSamanta - Last Filed: 06/19/18 10:22> Physical Exam Vital signs: Vital Signs 06/18/18 10:44 06/18/18 11:00 06/18/18 11:14 Temperature Pulse Rate 78 80 85 Respiratory Rate 18 14 Blood Pressure 119/57 L 122/59 L Pulse Oximetry 98 98 98 06/18/18 11:44 06/18/18 12:00 06/18/18 12:14 Temperature 100.0 F H Pulse Rate 84 87 89 Respiratory Rate 26 H Blood Pressure 135/60 131/58 L Pulse Oximetry 97 98 97 06/18/18 12:44 06/18/18 13:00 06/18/18 13:14 Temperature Pulse Rate 91 H 91 H 94 H Respiratory Rate 27 H Blood Pressure 147/65 H 150/64 H Pulse Oximetry 98 97 97 06/18/18 13:44 06/18/18 14:00 06/18/18 14:14 Temperature Pulse Rate 98 H 99 H 95 H Respiratory Rate Blood Pressure 157/69 H 141/63 H Pulse Oximetry 97 97 96 06/18/18 14:44 06/18/18 15:00 06/18/18 15:14 Temperature Pulse Rate 95 H 97 H 97 H Respiratory Rate Blood Pressure 134/62 166/67 H Pulse Oximetry 97 96 98 06/18/18 15:55 06/18/18 16:00 06/18/18 16:01 Temperature 99.3 F Pulse Rate 96 H 103 H 96 H Respiratory Rate 20 Blood Pressure 147/65 H Pulse Oximetry 100 98 99 06/18/18 16:02 06/18/18 16:05 06/18/18 17:00 Temperature Pulse Rate 97 H 99 H 86 Respiratory Rate Blood Pressure 143/60 H 158/67 H Pulse Oximetry 100 99 99 06/18/18 17:05 06/18/18 18:00 06/18/18 18:05 Temperature Pulse Rate 87 103 H 100 H Respiratory Rate Blood Pressure 141/63 H 158/69 H Pulse Oximetry 99 100 99 06/18/18 19:00 06/18/18 19:05 06/18/18 20:00 Temperature 98.6 F Pulse Rate 103 H 99 H 102 H Respiratory Rate Blood Pressure 153/68 H Pulse Oximetry 100 100 99 06/18/18 20:05 06/18/18 20:20 06/18/18 21:00 Temperature Pulse Rate 101 H 105 H 88 Respiratory Rate 15 Blood Pressure 158/70 H Pulse Oximetry 100 100 100 06/18/18 21:05 06/18/18 22:00 06/18/18 22:05 Temperature Pulse Rate 88 79 81 Respiratory Rate Blood Pressure 161/73 H 178/70 H Pulse Oximetry 100 100 100 06/18/18 23:00 06/18/18 23:05 06/18/18 23:08 Temperature Pulse Rate 96 H 97 H 99 H Respiratory Rate Blood Pressure 153/109 H 155/68 H Pulse Oximetry 100 100 100 06/18/18 23:56 06/19/18 00:00 06/19/18 00:05 Temperature 98.6 F Pulse Rate 91 H 93 H Respiratory Rate 14 Blood Pressure 131/63 Pulse Oximetry 98 99 99 06/19/18 01:00 06/19/18 01:05 06/19/18 02:00 Temperature Pulse Rate 79 79 79 Respiratory Rate Blood Pressure 140/62 Pulse Oximetry 100 100 99 06/19/18 02:05 06/19/18 03:00 06/19/18 03:05 Temperature Pulse Rate 81 111 H 100 H Respiratory Rate Blood Pressure 131/61 136/60 Pulse Oximetry 99 99 100 06/19/18 03:33 06/19/18 04:00 06/19/18 04:05 Temperature 99.5 F Pulse Rate 96 H 96 H 93 H Respiratory Rate 13 Blood Pressure 119/58 L Pulse Oximetry 100 98 98 06/19/18 05:00 06/19/18 05:05 06/19/18 06:00 Temperature Pulse Rate 79 81 91 H Respiratory Rate Blood Pressure 125/60 Pulse Oximetry 97 96 06/19/18 06:05 06/19/18 07:00 06/19/18 07:05 Temperature Pulse Rate 79 82 74 Respiratory Rate Blood Pressure 93/46 L 94/50 L Pulse Oximetry 100 100 100 06/19/18 07:44 06/19/18 08:00 06/19/18 08:05 Temperature 99.1 F Pulse Rate 88 90 92 H Respiratory Rate 15 Blood Pressure 88/50 L Pulse Oximetry 99 98 98 06/19/18 08:07 06/19/18 09:00 06/19/18 09:05 Temperature Pulse Rate 88 89 87 Respiratory Rate Blood Pressure 107/60 122/60 Pulse Oximetry 98 97 97 Intake & Output 06/18/18 06/19/18 06/19/18 18:59 06:59 18:59 Intake Total 1054 / 1054 928 / 928 Output Total 275 / 275 575 / 575 Balance 779 / 779 353 / 353 Weight 70.1 kg Intake: IV 374 / 374 328 / 328 Cerebyx Inj 200 MGPE In NS Inj 54 / 54 108 / 108 50 ML @ 216 mls/hr IV.SIG Q8HR [facility] Rx#:[id number] Vimpat Inj 50 MG In NS Inj 100 105 / 105 105 / 105 ML @ 105 mls/hr IV.SIG Q12H [facility] Rx#:[id number] Rocephin Inj 1,000 MG In NS Inj 100 / 100 100 ML @ 200 mls/hr IV.SIG Q24H [facility] Rx#:[id number] Keppra Inj 1,500 MG In NS Inj 115 / 115 115 / 115 100 ML @ 400 mls/hr IV.SIG Q12H [facility] Rx#:[id number] Tube Feeding 560 / 560 550 / 550 Tube Irrigant 50 / 50 Water Bolus Amount 120 / 120 Output: Urine 275 / 275 575 / 575 Other: # Voids 3 # Incontinent Voids 1 Date of Last Bowel Movement 06/18/18 06/18/18 06/18/18 # Bowel Movements 1 # Incontinent Bowel Movements 0 Narrative: remains intubated, awake, alert, interacting, nodding appropriately and trying to mouth words. follows commands and moves extremities purposefully wound healing well, mamadou removed, clean and dry without signs of infection - Urinary Catheter Management Female External Cath placed during this visit: no Reason for continuing: Not indwelling catheter Indwelling Urethral Catheter Cath placed during this visit: yes, but has since been removed by the nurse Reason for continuing: Decision to DC catheter Insertion date: 06/05/18 Insertion time: 08:30 Removal date: 06/16/18 Removal time: 21:51 <Samanta Banda - Last Filed: 06/19/18 10:22> Vital signs: Vital Signs 06/18/18 15:55 06/18/18 16:00 06/18/18 16:01 Temperature 99.3 F Pulse Rate 96 H 103 H 96 H Respiratory Rate 20 Blood Pressure 147/65 H Pulse Oximetry 100 98 99 06/18/18 16:02 06/18/18 16:05 06/18/18 17:00 Temperature Pulse Rate 97 H 99 H 86 Respiratory Rate Blood Pressure 143/60 H 158/67 H Pulse Oximetry 100 99 99 06/18/18 17:05 06/18/18 18:00 06/18/18 18:05 Temperature Pulse Rate 87 103 H 100 H Respiratory Rate Blood Pressure 141/63 H 158/69 H Pulse Oximetry 99 100 99 06/18/18 19:00 06/18/18 19:05 06/18/18 20:00 Temperature 98.6 F Pulse Rate 103 H 99 H 102 H Respiratory Rate Blood Pressure 153/68 H Pulse Oximetry 100 100 99 06/18/18 20:05 06/18/18 20:20 06/18/18 21:00 Temperature Pulse Rate 101 H 105 H 88 Respiratory Rate 15 Blood Pressure 158/70 H Pulse Oximetry 100 100 100 06/18/18 21:05 06/18/18 22:00 06/18/18 22:05 Temperature Pulse Rate 88 79 81 Respiratory Rate Blood Pressure 161/73 H 178/70 H Pulse Oximetry 100 100 100 06/18/18 23:00 06/18/18 23:05 06/18/18 23:08 Temperature Pulse Rate 96 H 97 H 99 H Respiratory Rate Blood Pressure 153/109 H 155/68 H Pulse Oximetry 100 100 100 06/18/18 23:56 06/19/18 00:00 06/19/18 00:05 Temperature 98.6 F Pulse Rate 91 H 93 H Respiratory Rate 14 Blood Pressure 131/63 Pulse Oximetry 98 99 99 06/19/18 01:00 06/19/18 01:05 06/19/18 02:00 Temperature Pulse Rate 79 79 79 Respiratory Rate Blood Pressure 140/62 Pulse Oximetry 100 100 99 06/19/18 02:05 06/19/18 03:00 06/19/18 03:05 Temperature Pulse Rate 81 111 H 100 H Respiratory Rate Blood Pressure 131/61 136/60 Pulse Oximetry 99 99 100 06/19/18 03:33 06/19/18 04:00 06/19/18 04:05 Temperature 99.5 F Pulse Rate 96 H 96 H 93 H Respiratory Rate 13 Blood Pressure 119/58 L Pulse Oximetry 100 98 98 06/19/18 05:00 06/19/18 05:05 06/19/18 06:00 Temperature Pulse Rate 79 81 91 H Respiratory Rate Blood Pressure 125/60 Pulse Oximetry 97 96 06/19/18 06:05 06/19/18 07:00 06/19/18 07:05 Temperature Pulse Rate 79 82 74 Respiratory Rate Blood Pressure 93/46 L 94/50 L Pulse Oximetry 100 100 100 06/19/18 07:44 06/19/18 08:00 06/19/18 08:05 Temperature 99.1 F Pulse Rate 88 90 92 H Respiratory Rate 15 Blood Pressure 88/50 L Pulse Oximetry 99 98 98 06/19/18 08:07 06/19/18 09:00 06/19/18 09:05 Temperature Pulse Rate 88 89 87 Respiratory Rate Blood Pressure 107/60 122/60 Pulse Oximetry 98 97 97 06/19/18 10:00 06/19/18 10:05 06/19/18 10:32 Temperature Pulse Rate 90 89 Respiratory Rate Blood Pressure 114/57 L Pulse Oximetry 97 97 95 06/19/18 11:00 06/19/18 11:05 06/19/18 12:00 Temperature Pulse Rate 101 H 100 H 103 H Respiratory Rate Blood Pressure 142/74 H Pulse Oximetry 99 99 99 06/19/18 12:05 06/19/18 13:00 06/19/18 13:05 Temperature 98.9 F Pulse Rate 102 H 97 H 97 H Respiratory Rate Blood Pressure 151/66 H 153/67 H Pulse Oximetry 99 99 99 06/19/18 14:00 06/19/18 14:05 06/19/18 15:00 Temperature Pulse Rate 100 H 100 H 108 H Respiratory Rate Blood Pressure 157/71 H Pulse Oximetry 98 98 06/19/18 15:05 06/19/18 15:09 06/19/18 15:18 Temperature Pulse Rate 104 H 103 H 102 H Respiratory Rate 18 Blood Pressure 194/77 H 167/71 H Pulse Oximetry Intake & Output 06/18/18 06/19/18 06/19/18 18:59 06:59 18:59 Intake Total 1054 / 1054 928 / 928 Output Total 275 / 275 575 / 575 Balance 779 / 779 353 / 353 Weight 70.1 kg Intake: IV 374 / 374 328 / 328 Cerebyx Inj 200 MGPE In NS Inj 54 / 54 108 / 108 50 ML @ 216 mls/hr IV.SIG Q8HR [facility] Rx#:[id number] Vimpat Inj 50 MG In NS Inj 100 105 / 105 105 / 105 ML @ 105 mls/hr IV.SIG Q12H [facility] Rx#:[id number] Rocephin Inj 1,000 MG In NS Inj 100 / 100 100 ML @ 200 mls/hr IV.SIG Q24H [facility] Rx#:[id number] Keppra Inj 1,500 MG In NS Inj 115 / 115 115 / 115 100 ML @ 400 mls/hr IV.SIG Q12H [facility] Rx#:[id number] Tube Feeding 560 / 560 550 / 550 Tube Irrigant 50 / 50 Water Bolus Amount 120 / 120 Output: Urine 275 / 275 575 / 575 Other: # Voids 3 # Incontinent Voids 1 Date of Last Bowel Movement 06/18/18 06/18/18 06/19/18 # Bowel Movements 1 # Incontinent Bowel Movements 0 - Urinary Catheter Management Female External Cath placed during this visit: no Indwelling Urethral Catheter Cath placed during this visit: no <Duke Palacios - Last Filed: 06/19/18 15:55> Assessment and Plan - Plan 78 yo female with vague constellation of symptoms GCS-[address] shows 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 hemorrhagic mass Will follow with you 05/30/18: cont neuro checks in ICU Dr. 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 at midnight on Monday night into Monday Minimize sedating meds, etc. 06/03/18: Appears to be a bit more encephalopathic today, possible contribution of hospital delirium versus her mild hydrocephalus, though favor delirium since her level of alertness remains stable Dr. 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 at midnight tonight Continue to minimize sedating meds, etc. 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 Palacios 06/06/18: POD #1. pt had seizure last night requiring intubation. She has been started on Keppra for seizures. On exam she opens eyes and follows commands. Postoperative MRI Brain w/wo contrast has been ordered and pending. Obtain EEG to assess seizures. Continue ventriculostomy draining, add ICP monitoring. Start sq lovenox for dvt prophylaxis. Will follow. 06/07/18: POD #2. patient neurologically stable, opens eyes and follows commands. Postoperative MRI Brain reviewed by neurosurgery team. Spot EEG reports no ongoing seizures, with high amplitude sharp waves on left?breach rhythm. Critical care plans on extubation today. Continue ventriculostomy draining at 10 mmHg. Final pathology pending. Neurology following for seizure management. Will follow. 06/08/18: POD #3. patient neurologically stable, opens eyes and follows commands. Ventriculostomy draining well with controlled ICPs, will continue at 10mmHg. Pathology still pending. cont seizure management per Neurology. dw critical care. will follow. 06/09/2018 POD#4 Remains Neurologically stable, follows commands Stop sedation wean ventilator to CPAP 5 x 12 and FiO2 30% Continue DuoNeb nebs 4 times daily. Check respiratory parameters and consider extubation Agree with Symbicort 160 about 4.5 mcg 1 puff twice daily and Solu-Medrol 40 mg IV twice daily Continue EVD Would maintain SBP 140-160 to improve CPP. 06/10/2018 POD#5 Seizure yesterday, and last night, have increased Cerebyx and Keppra D/C'ed Barbs would prefer to maintain on 2 agents and high therapeutic levels of Cerebyx, usually best with brain tumors Free Dilantin levels not easily obtainable here. Lets keep level around 20 with standard level remains Neurologically stable wean ventilator to CPAP 5 x 12 and FiO2 30% and if OK, may extubate from Neurosurgical standpoint. 06/11/18 POD #6 seizures controlled overnight, will continue Cerebyx 200 tid and Keppra 1500 bid. Dilantin levels 17.6 today continue critical care - vent weaning - CPAP trials cont EVD draining at 5 mmHg final pathology still pending will follow 06/12/18 POD #7 pt failed extubation yesterday, reintubated- critical care managing repeat EEG 06/11/18 abnormal with sharp activities left hemisphere dilantin levels 18.8 this morning cont current anticonvulsants, will repeat EEG today obtained follow up CT Brain this morning which was reviewed by Dr. Perdue, EVD raised to 15 mmHg neuro exam today appears better final pathology still pending 06/13/18 POD #8 neurologically she is awake, alert EEG yesterday 06/12/18 - mod encephalopathy, no reports of any seizure activities cont current anticonvulsants, Dilantin levels trending up pending today, started on Zosyn for gram neg rods in sputum - per critical care cont EVD challenge, cont at 15 mmHg today, plan to clamp tomorrow will follow 06/14/18 POD #9 neurologically remains awake and alert Ventriculostomy drain clamped today, follow up CT Head tomorrow am will follow 06/15/18: POD #10 neuro exam with no changes, f/u CT Head post EVD clamping reviewed by neurosurgery team, ventriculostomy drain removed, using sterile technique single stitch place, patient tolerated procedure well cont critical care management seizures controlled, continue current anticonvulsants FINAL PATHOLOGY: LOW GRADE NEOPLASM, MOST CONSISTENT WITH PILOCYTIC ASTROCYTOMA ; 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 current management Discussed Path with patient's son 06/17/2018 POD#12 Neuro: no sig. changes seizures controlled aggressive CPAP trials today DPH level 5.5 Bolused with 500 mgs. cont. ICU 06/18/2018 no neurological changes continue CPAP trials, vent wean to extubate remove surgical mamadou Dr. 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 Snell - continue CPAP, ?extubate pulmonology also following <Samanta Banda - Last Filed: 06/19/18 10:22> - Attending Attestation Remains Neurologically stable GCS-15 Tolerating CPAP trials Would extubate today I have personally seen and examined the patient, reviewed pertinent labs and imaging studies with the Neurosurgery team. I agree with Ms. Banda's ( Neurosurgery PA), assessment as well as plan of care. <Duke Palacios - Last Filed: 06/19/18 15:55>
--- NOTE | 2018-06-19 10:38 | P.PNCC ---
Subjective Subjective Remarks/Hospital Course: Patient is a 78-year-old female with past medical history significant for hypertension, peripheral arterial disease, history of vascular intervention/ stenting, arthritis who presented to the [facility] with mostly nonspecific complaints of memory loss and hallucinations for 1 week and worsening tremors of the right arm. Further workup in the emergency department showed subacute intraventricular hemorrhage into the left lateral ventricle and a focal thrombus that may be obstructing foramina of [place]. There was enlargement of the left lateral ventricle compared to the prior MRI. Also trace blood in the occipital horn of left lateral ventricle. With evidence of intraventricular hemorrhage patient was transferred emergently to [facility] for neurosurgery consult. I evaluated the patient after arrival to the ICU. Patient is profoundly hypertensive systolic blood pressure 190-200. IV labetalol 20 mg IV push given followed by Cardene infusion started. On exam patient did not appear to be in distress. No definite focal deficit however patient is oriented only to person. Reviewed CT scan with neurosurgery Dr. Palacios. On his review CT shows 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 hemorrhagic mass at foramen of [place] with asymmetric left sided ventricular dilatation. Stat MRI of the brain with and without contrast ordered. Started on Cardene infusion with target systolic blood pressure less than 140 05/30/18: MRI brain showed 2.3 x 1.7 cm mass within the body of the left lateral ventricle measuring 2.3 x 1.7 cm left lateral ventricle is prominent may be related to production of CSF from this mass. 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 Additional mass in the cerebellopontine angle on the left compressing upon the brainstem measuring 1.8 x 1.4 cm. Slightly more agitated and confused today. Partly secondary to mass partly could be alcohol withdrawal. Placed on as needed Haldol 05/31: Patient remains sedated received Ativan a few hours before. Currently for that reason Precedex is being held. Wakes up follows some commands. Oriented to person only. Plan for craniotomy and resection of intraventricular mass scheduled tentatively for Monday. Ct chest: 1.6 x 1.1 cm spiculated RUL nodule concerning for metastasis or primary lung malignancy. 1.1 x 1.4 cm soft tissue density inferior lateral margin of the right breast implant ?focal disruption vs breast mass. CT abdomen pelvis: 1.3 cm left adrenal mass concerning for metastatic disease given findings of brain and lung mass. 1.6 cm indeterminate low-density lesion in the posterior right lobe of the liver with numerous additional subcentimeter hypodense lesions which are too small to fully characterize. Metastatic disease cannot be entirely excluded, possibly cysts. 06/01: Remains confused slightly agitated remains on Precedex. CT angiogram yesterday of the brain showed previously demonstrated intraventricular mass however no cerebellopontine angle mass. WBC count elevated to 19.1 no fever. Will check UA-previously ordered UA had not been done. Check blood cultures, chest x-ray is clear. Continue to hold Plavix 06/02: Plan is for resection of brain mass on Monday. Patient continues breathing comfortably. 06/03: Ready for OR. Labs are in order. INR 1.1. Plavix effect noted on . 06/04: Coagulation profile normal. Patient scheduled for surgery tomorrow. No new complaints. 06/05: Patient seen in PACU shortly after surgery. Brief generalized seizure terminated with Ativan 1 mg. Patient loaded with Cerebyx 1 g. Neurologic exam nonfocal at this time. Pupils pinpoint. Required reintubation due to somnolence. 06/06: T-max 100.8. Currently afebrile. Patient arousable on the ventilator. Hypotensive requiring 1 L bolus normal saline. MRI brain pending. EEG ongoing. 06/07: T-max 100.6. Currently 99.8. MRI brain showed postsurgical change with no increased hemorrhage noted. Replacing potassium, phosphorus and magnesium currently. Dexmedetomidine drip is currently off. Noted some breech with EEG yesterday. Dilantin level therapeutic. 06/08: All sedation off for about 24 hours. She will open her eyes to stimulation. Withdraws 4 limbs to stimulation but right upper extremity appears weaker. Dilantin level is therapeutic and no more seizures. We will attempt to extubate when she can control her airway. Presently too somnolent. 06/09: Possibly slightly more arousable than when I saw her for 8 hours ago. Will reflexively squeeze left upper extremity. Not currently following commands with right upper extremity for me. Tube feeding today increase antihypertensives to wean off clevidipine drip. 06/10: Currently on fosphenytoin 200 mg twice daily and levetiracetam 1500 mg twice daily. Failed CPAP trials x2 today secondary to apnea. Will reattempt this afternoon. Arousable and opens eyes. Spontaneous moves left upper extremity but not following commands. We check EEG today. 06/11: Resting in bed. No seizure activity more awake and following commands. Will attempt extubation today at 1700 hrs. 06/12: Resting in bed. More arousable and interactive today. No seizure activity noted. Failed extubation after 1 hour attempt yesterday. We will CPAP again today and reattempt likely tomorrow. Started on piperacillin/ tazobactam for gram-negative rupinder sputum. 06/13: Afebrile. Resting in bed in no acute distress. Failed CPAP trial for 2 hours today. Continues with copious thick green sputum. Enterobacter cloacae/ strep noted 06/14: Resting comfortably in bed in no acute distress. Attempting CPAP trial again today. Diagnosis astrocytoma noted. Oncology has discussed with family. 06/15: EEG stable without seizures. more awake, following commands. sputum tenacious and copious. too much to allow successful extubation. Subjective 06/16: still failing CPAP for secretions. will perform therapeutic bronch to assess for mucous plugging disease. dilantin level adequate based on protein levels. no seizure activity. awake following commands. 3: failed CPAP again today- became apneic. secretions are no longer a significant problem. remains awake and follows commands. long talk with her and son at bedside: explained again in detail about her oncologic diagnosis as well as her prognosis on the vent, which is quite good, except she is significantly deconditioned. 06/18: General level of consciousness remains the same. No more seizures and Dilantin level therapeutic in the context of low albumin. No more problems with secretions. Continue weaning trials. Continue nutritional supplementation. 06/19: She is more comfortable on spontaneous breathing trials today. No new seizure activity. Appears more alert, follows commands. Objective Vital Signs / I&O: Vital Signs 06/18/18 10:44 06/18/18 11:00 06/18/18 11:14 Temperature Pulse Rate 78 80 85 Respiratory Rate 18 14 Blood Pressure 119/57 L 122/59 L Pulse Oximetry 98 98 98 06/18/18 11:44 06/18/18 12:00 06/18/18 12:14 Temperature 100.0 F H Pulse Rate 84 87 89 Respiratory Rate 26 H Blood Pressure 135/60 131/58 L Pulse Oximetry 97 98 97 06/18/18 12:44 06/18/18 13:00 06/18/18 13:14 Temperature Pulse Rate 91 H 91 H 94 H Respiratory Rate 27 H Blood Pressure 147/65 H 150/64 H Pulse Oximetry 98 97 97 06/18/18 13:44 06/18/18 14:00 06/18/18 14:14 Temperature Pulse Rate 98 H 99 H 95 H Respiratory Rate Blood Pressure 157/69 H 141/63 H Pulse Oximetry 97 97 96 06/18/18 14:44 06/18/18 15:00 06/18/18 15:14 Temperature Pulse Rate 95 H 97 H 97 H Respiratory Rate Blood Pressure 134/62 166/67 H Pulse Oximetry 97 96 98 06/18/18 15:55 06/18/18 16:00 06/18/18 16:01 Temperature 99.3 F Pulse Rate 96 H 103 H 96 H Respiratory Rate 20 Blood Pressure 147/65 H Pulse Oximetry 100 98 99 06/18/18 16:02 06/18/18 16:05 06/18/18 17:00 Temperature Pulse Rate 97 H 99 H 86 Respiratory Rate Blood Pressure 143/60 H 158/67 H Pulse Oximetry 100 99 99 06/18/18 17:05 06/18/18 18:00 06/18/18 18:05 Temperature Pulse Rate 87 103 H 100 H Respiratory Rate Blood Pressure 141/63 H 158/69 H Pulse Oximetry 99 100 99 06/18/18 19:00 06/18/18 19:05 06/18/18 20:00 Temperature 98.6 F Pulse Rate 103 H 99 H 102 H Respiratory Rate Blood Pressure 153/68 H Pulse Oximetry 100 100 99 06/18/18 20:05 06/18/18 20:20 06/18/18 21:00 Temperature Pulse Rate 101 H 105 H 88 Respiratory Rate 15 Blood Pressure 158/70 H Pulse Oximetry 100 100 100 06/18/18 21:05 06/18/18 22:00 06/18/18 22:05 Temperature Pulse Rate 88 79 81 Respiratory Rate Blood Pressure 161/73 H 178/70 H Pulse Oximetry 100 100 100 06/18/18 23:00 06/18/18 23:05 06/18/18 23:08 Temperature Pulse Rate 96 H 97 H 99 H Respiratory Rate Blood Pressure 153/109 H 155/68 H Pulse Oximetry 100 100 100 06/18/18 23:56 06/19/18 00:00 06/19/18 00:05 Temperature 98.6 F Pulse Rate 91 H 93 H Respiratory Rate 14 Blood Pressure 131/63 Pulse Oximetry 98 99 99 06/19/18 01:00 06/19/18 01:05 06/19/18 02:00 Temperature Pulse Rate 79 79 79 Respiratory Rate Blood Pressure 140/62 Pulse Oximetry 100 100 99 06/19/18 02:05 06/19/18 03:00 06/19/18 03:05 Temperature Pulse Rate 81 111 H 100 H Respiratory Rate Blood Pressure 131/61 136/60 Pulse Oximetry 99 99 100 06/19/18 03:33 06/19/18 04:00 06/19/18 04:05 Temperature 99.5 F Pulse Rate 96 H 96 H 93 H Respiratory Rate 13 Blood Pressure 119/58 L Pulse Oximetry 100 98 98 06/19/18 05:00 06/19/18 05:05 06/19/18 06:00 Temperature Pulse Rate 79 81 91 H Respiratory Rate Blood Pressure 125/60 Pulse Oximetry 97 96 06/19/18 06:05 06/19/18 07:00 06/19/18 07:05 Temperature Pulse Rate 79 82 74 Respiratory Rate Blood Pressure 93/46 L 94/50 L Pulse Oximetry 100 100 100 06/19/18 07:44 06/19/18 08:00 06/19/18 08:05 Temperature 99.1 F Pulse Rate 88 90 92 H Respiratory Rate 15 Blood Pressure 88/50 L Pulse Oximetry 99 98 98 06/19/18 08:07 06/19/18 09:00 06/19/18 09:05 Temperature Pulse Rate 88 89 87 Respiratory Rate Blood Pressure 107/60 122/60 Pulse Oximetry 98 97 97 06/19/18 10:32 Temperature Pulse Rate Respiratory Rate Blood Pressure Pulse Oximetry 95 Intake & Output 06/18/18 06/19/18 06/19/18 18:59 06:59 18:59 Intake Total 1054 / 1054 928 / 928 Output Total 275 / 275 575 / 575 Balance 779 / 779 353 / 353 Weight 70.1 kg Intake: IV 374 / 374 328 / 328 Cerebyx Inj 200 MGPE In NS Inj 54 / 54 108 / 108 50 ML @ 216 mls/hr IV.SIG Q8HR ALEXIS Rx#:[id number] Vimpat Inj 50 MG In NS Inj 100 105 / 105 105 / 105 ML @ 105 mls/hr IV.SIG Q12H ALEXIS Rx#:[id number] Rocephin Inj 1,000 MG In NS Inj 100 / 100 100 ML @ 200 mls/hr IV.SIG Q24H ALEXIS Rx#:[id number] Keppra Inj 1,500 MG In NS Inj 115 / 115 115 / 115 100 ML @ 400 mls/hr IV.SIG Q12H ALEXIS Rx#:[id number] Tube Feeding 560 / 560 550 / 550 Tube Irrigant 50 / 50 Water Bolus Amount 120 / 120 Output: Urine 275 / 275 575 / 575 Other: # Voids 3 # Incontinent Voids 1 Date of Last Bowel Movement 06/18/18 06/18/18 06/18/18 # Bowel Movements 1 # Incontinent Bowel Movements 0 Result Diagrams: 06/19/18 05:16 06/19/18 05:16 Objective Remarks: GENERAL: This is a 78-year-old female remains orotracheally intubated SKIN: Warm and dry. EYES: Pupils equal and round. About 3 mm bilaterally and reactive, no scleral icterus. No injection or drainage. ENT: No nasal bleeding or discharge. Mucous membranes pink and moist. NECK: Trachea midline. Orotracheal intubation CARDIOVASCULAR: Regular rate and rhythm. sinus. Normal S1-S2. No JVD. RESPIRATORY: Normal excursions on mechanical ventilation. Generally clear breath sounds, minimal secretions. GASTROINTESTINAL: Abdomen soft, non-tender, nondistended. No guarding, bowel sounds active. MUSCULOSKELETAL: Extremities with trace bilateral upper and lower extremity edema. Warm, well-perfused NEUROLOGICAL: Positive cough and gag. Pupils reactive. Alert on the ventilator and opens eyes to voice. Moves left upper, left lower and right lower extremity. Some movement right upper extremity. Duplicate below - unable to erase. GENERAL: SKIN: Warm and dry. HEAD: Atraumatic. Normocephalic. EYES: Pupils equal and round. No scleral icterus. No injection or drainage. ENT: No nasal bleeding or discharge. Mucous membranes pink and moist. NECK: Trachea midline. No JVD. CARDIOVASCULAR: Regular rate and rhythm. RESPIRATORY: No accessory muscle use. Clear to auscultation. Breath sounds equal bilaterally. GASTROINTESTINAL: Abdomen soft, non-tender, nondistended. Hepatic and splenic margins not palpable. MUSCULOSKELETAL: Extremities without clubbing, cyanosis, or edema. No obvious deformities. NEUROLOGICAL: Awake and alert. No obvious cranial nerve deficits. Motor grossly within normal limits. Five out of 5 muscle strength in the arms and legs. Normal speech. PSYCHIATRIC: Appropriate mood and affect; insight and judgment normal. Assessment and Plan - Problem List (1) Intraventricular hemorrhage, nontraumatic Code(s): I61.5 - Nontraumatic intracerebral hemorrhage, intraventricular Status: Acute (2) Hypertensive emergency Code(s): I16.1 - Hypertensive emergency Status: Acute (3) Metabolic encephalopathy Code(s): G93.41 - Metabolic encephalopathy Status: Acute (4) Altered mental status Code(s): R41.82 - Altered mental status, unspecified Status: Acute (5) History of peripheral arterial disease Code(s): Z86.79 - Personal history of other diseases of the circulatory system Status: Chronic (6) History of hypertension Code(s): Z86.79 - Personal history of other diseases of the circulatory system Status: Chronic (7) Cessation of tobacco use in previous 12 months Code(s): Z87.891 - Personal history of nicotine dependence Status: Chronic - Assessment and Plan Plan: NEURO/psych: 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 -Status post left craniotomy resection of tumor 06/0506/04/2018 (clopidogrel will be held for 7 days prior to surgery) -Oncology consult, also CT chest abdomen pelvis -right upper lobe mass with probable adrenal metastases cannot rule out liver metastases -Tight blood pressure control with nicardipine e and IV labetalol as needed, and PO meds, see below -Keep systolic blood pressure less than 150 -Supplement multivitamin thiamine given daily alcohol use -Watch closely for alcohol withdrawal -Mild alcohol withdrawal contributing to agitation -Use expected for agitation, Haldol as needed -EEG originally negative for seizures -Repeat EEG 06/06 field possible left frontal breakthrough. Loaded with fosphenytoin 1 g.. Start on 100 mg 3 times daily recheck level in a.m was 9.2 with free level around 17. Continue per neurology. -MRA 06/06 brain revealed left lateral ventricle resection, intervertebral hemorrhage slightly decreased. Small subdural hematoma. Postsurgical. Rightward shift 5 mm. Most recent EEG negative for acute seizure activity Currently on fosphenytoin 200 mg every 8 hours. Corrected for free Dilantin, level 15 On levetiracetam 1500 mg IV twice daily. Continue lacosamide 50 mg twice daily per neurosurgery request Neurosurgery managing antiepileptics. No obvious change in level of sedation from AEDs Quite alert today and gesturing with hands RESP: Acute hypoxic and hypercarbic respiratory failure- persistent Previous tobacco use Right upper lobe speak with a mass HCAP ventilator associated pneumonia -PRVC ventilation with ventilator bundle/head of bed at 30 degrees -Albuterol/ipratropium aerosols every 4 hours scheduled and as needed albuterol aerosols every 2 hours as needed -Pulmonology consulted for right upper lobe mass concerning for primary malignancy, with adrenal mass -Pulmonary Dr. Evans suggesting CT-guided biopsy and PET scan once clinically more stable -Reintubated and ISC after PACU 06/05. -Spontaneous breathing trials today again, attempt extubation when she can protect her airway. failed SBT again today for weakness. OOB to stretcher chair daily PT 7 days a week. Daily spontaneous breathing trial Attempt extubation 06/19 CV: Hypertensive emergency History of hypertension Peripheral arterial disease - IV labetalol as needed for systolic blood pressure less than 150 -Continue home enalapril 40 mg daily and amlodipine 5 mg daily increased to 10 mg daily, continue pravastatin 40 mg daily. metoprolol tartrate 50 mg twice daily -Continue holding clopidogrel until cleared by neurosurgery -Decrease platelet activity noted on 06/01 -INR, PT, PTT edwin. -Remains normotensive -Continue to hold antihypertensive drugs GI: Left adrenal mass 1.3 x 1.2 cm Colonic diverticulosis Right liver mass versus cyst Elevated LFTs -tube feeds, lansoprazole for GI prophylax. Docusate sodium/senna 1 tablet twice daily for bowel regimen -Continue tube feedings with vital 1.5 goal 50 cc an hour -Follow blood glucose closely : -Monitor renal function closely. ID: Enterobacter cloaca K/strep pneumonia Treatment with ceftriaxone 1 g daily stop date 06/18 HEME: Leukocytosis Normocytic anemia -Oncology. astrocytoma by pathology. - Dr. Kapadia. FEN/ENDO: -Electrolyte replacement per protocol PROPH: -Bilateral lower extremity SCDs. LINES: -Utilize peripheral IVs, central line if needed Overall impression: More alert and breathing with more vigor. We will attempt extubation today. Neck veins are full and she has generalized edema, will start diuresis. (4) Altered mental status Qualifiers: Altered mental status type: unspecified Qualified Code(s): R41.82 - Altered mental status, unspecified
[2018-06-19] MEDS: levETIRAcetam Inj 1,500 MG in Sodium Chlor 0.9% Inj 100 ML IV.SIG SCH ×2 (12:00→22:47)
[2018-06-19] MEDS: hydrALAZINE HCl Inj 20 MG/ML Vial IV.PUSH PRN (16:27)
[2018-06-19] MEDS ORDERED: Dexamethasone Inj 20 MG/5 ML Vial IV.PUSH ONE (17:31)
[2018-06-19] MEDS: Metoprolol Inj 5 MG/5 ML Vial IV.PUSH SCH (17:53)
--- NOTE | 2018-06-19 18:23 | P.PN ---
Subjective Interval history: She was extubated today. On O2 via nasal cannula at 4 L. She is awake and talking. Wants to eat. No shortness of breath at rest. Physical Exam Vital signs: Vital Signs 06/18/18 19:00 06/18/18 19:05 06/18/18 20:00 Temperature 98.6 F Pulse Rate 103 H 99 H 102 H Respiratory Rate Blood Pressure 153/68 H Pulse Oximetry 100 100 99 06/18/18 20:05 06/18/18 20:20 06/18/18 21:00 Temperature Pulse Rate 101 H 105 H 88 Respiratory Rate 15 Blood Pressure 158/70 H Pulse Oximetry 100 100 100 06/18/18 21:05 06/18/18 22:00 06/18/18 22:05 Temperature Pulse Rate 88 79 81 Respiratory Rate Blood Pressure 161/73 H 178/70 H Pulse Oximetry 100 100 100 06/18/18 23:00 06/18/18 23:05 06/18/18 23:08 Temperature Pulse Rate 96 H 97 H 99 H Respiratory Rate Blood Pressure 153/109 H 155/68 H Pulse Oximetry 100 100 100 06/18/18 23:56 06/19/18 00:00 06/19/18 00:05 Temperature 98.6 F Pulse Rate 91 H 93 H Respiratory Rate 14 Blood Pressure 131/63 Pulse Oximetry 98 99 99 06/19/18 01:00 06/19/18 01:05 06/19/18 02:00 Temperature Pulse Rate 79 79 79 Respiratory Rate Blood Pressure 140/62 Pulse Oximetry 100 100 99 06/19/18 02:05 06/19/18 03:00 06/19/18 03:05 Temperature Pulse Rate 81 111 H 100 H Respiratory Rate Blood Pressure 131/61 136/60 Pulse Oximetry 99 99 100 06/19/18 03:33 06/19/18 04:00 06/19/18 04:05 Temperature 99.5 F Pulse Rate 96 H 96 H 93 H Respiratory Rate 13 Blood Pressure 119/58 L Pulse Oximetry 100 98 98 06/19/18 05:00 06/19/18 05:05 06/19/18 06:00 Temperature Pulse Rate 79 81 91 H Respiratory Rate Blood Pressure 125/60 Pulse Oximetry 97 96 06/19/18 06:05 06/19/18 07:00 06/19/18 07:05 Temperature Pulse Rate 79 82 74 Respiratory Rate Blood Pressure 93/46 L 94/50 L Pulse Oximetry 100 100 100 06/19/18 07:44 06/19/18 08:00 06/19/18 08:05 Temperature 99.1 F Pulse Rate 88 90 92 H Respiratory Rate 15 Blood Pressure 88/50 L Pulse Oximetry 99 98 98 06/19/18 08:07 06/19/18 09:00 06/19/18 09:05 Temperature Pulse Rate 88 89 87 Respiratory Rate Blood Pressure 107/60 122/60 Pulse Oximetry 98 97 97 06/19/18 10:00 06/19/18 10:05 06/19/18 10:32 Temperature Pulse Rate 90 89 Respiratory Rate Blood Pressure 114/57 L Pulse Oximetry 97 97 95 06/19/18 11:00 06/19/18 11:05 06/19/18 12:00 Temperature Pulse Rate 101 H 100 H 103 H Respiratory Rate Blood Pressure 142/74 H Pulse Oximetry 99 99 99 06/19/18 12:05 06/19/18 13:00 06/19/18 13:05 Temperature 98.9 F Pulse Rate 102 H 97 H 97 H Respiratory Rate Blood Pressure 151/66 H 153/67 H Pulse Oximetry 99 99 99 06/19/18 14:00 06/19/18 14:05 06/19/18 15:00 Temperature Pulse Rate 100 H 100 H 108 H Respiratory Rate Blood Pressure 157/71 H Pulse Oximetry 98 98 06/19/18 15:05 06/19/18 15:09 06/19/18 15:18 Temperature Pulse Rate 104 H 103 H 102 H Respiratory Rate 18 Blood Pressure 194/77 H 167/71 H Pulse Oximetry 06/19/18 16:00 06/19/18 16:05 06/19/18 17:00 Temperature 99.0 F Pulse Rate 106 H 105 H 122 H Respiratory Rate Blood Pressure 161/69 H Pulse Oximetry 97 97 98 06/19/18 17:05 06/19/18 17:11 06/19/18 17:27 Temperature Pulse Rate 122 H 126 H 128 H Respiratory Rate 28 H 28 H Blood Pressure 149/67 H Pulse Oximetry 96 06/19/18 17:56 06/19/18 18:00 06/19/18 18:05 Temperature Pulse Rate 109 H 107 H 108 H Respiratory Rate Blood Pressure 121/56 L 144/63 H Pulse Oximetry 94 L 94 L 94 L Intake & Output 06/18/18 06/19/18 06/19/18 18:59 06:59 18:59 Intake Total 1054 / 1054 928 / 928 428 / 428 Output Total 275 / 275 575 / 575 1200 / 1200 Balance 779 / 779 353 / 353 -772 / -772 Weight 70.1 kg Intake: IV 374 / 374 328 / 328 274 / 274 Cerebyx Inj 200 MGPE In NS Inj 54 / 54 108 / 108 54 / 54 50 ML @ 216 mls/hr IV.SIG Q8HR [facility] Rx#:[id number] Vimpat Inj 50 MG In NS Inj 100 105 / 105 105 / 105 105 / 105 ML @ 105 mls/hr IV.SIG Q12H [facility] Rx#:[id number] Rocephin Inj 1,000 MG In NS Inj 100 / 100 100 ML @ 200 mls/hr IV.SIG Q24H [facility] Rx#:[id number] Keppra Inj 1,500 MG In NS Inj 115 / 115 115 / 115 115 / 115 100 ML @ 400 mls/hr IV.SIG Q12H [facility] Rx#:[id number] Tube Feeding 560 / 560 550 / 550 154 / 154 Tube Irrigant 50 / 50 Water Bolus Amount 120 / 120 Output: Urine 275 / 275 575 / 575 Urine Amount (Catheter) 1200 / 1200 Female External 1200 / 1200 Other: # Voids 3 # Incontinent Voids 1 4 Date of Last Bowel Movement 06/18/18 06/18/18 06/19/18 # Bowel Movements 1 2 # Incontinent Bowel Movements 0 Narrative: remains intubated, awake, alert, interacting, nodding and talking in whispers. Answers appropriate GENERAL: Thin built elderly lady awake and alert SKIN: Warm and dry. HEAD: Atraumatic. Normocephalic. EYES: Pupils equal and round. No scleral icterus. No injection or drainage. ENT: No nasal bleeding or discharge. Mucous membranes pink and moist. NECK: Trachea midline. No JVD. CARDIOVASCULAR: Regular rate and rhythm. RESPIRATORY: No accessory muscle use. Scattered expiratory wheezes in the upper chest .breath sounds equal bilaterally. GASTROINTESTINAL: Abdomen soft, non-tender, nondistended. Hepatic and splenic margins not palpable. MUSCULOSKELETAL: Extremities without clubbing, cyanosis, or edema. No obvious deformities. NEUROLOGICAL: Awake and moves all extremities with normal reflexes PSYCHIATRIC: Appropriate mood and affect. - Urinary Catheter Management Female External Cath placed during this visit: no Reason for continuing: Not indwelling catheter Indwelling Urethral Catheter Cath placed during this visit: yes, but has since been removed by the nurse Reason for continuing: Decision to DC catheter Insertion date: 06/05/18 Insertion time: 08:30 Removal date: 06/16/18 Removal time: 21:51 Results - Labs CBC & Chem 7: 06/19/18 05:16 06/19/18 05:16 Laboratory Results - last 24 hr 06/19/18 06/19/18 05:16 05:16 WBC 13.1 H RBC 2.61 L Hgb 9.1 L Hct 26.2 L MCV 100.3 H MCH 34.7 H MCHC 34.6 RDW 14.3 Plt Count 384 MPV 7.5 Sodium 141 Potassium 4.2 Chloride 105 Carbon Dioxide 28.0 Anion Gap 8 BUN 17 Creatinine 0.31 L Estimated GFR Greater than 89 Random Glucose 115 H Calcium 7.9 L Phosphorus 3.6 Magnesium 2.3 Assessment and Plan - Assessment (1) COPD (chronic obstructive pulmonary disease) Code(s): J44.9 - Chronic obstructive pulmonary disease, unspecified Status: Acute (2) Right upper lobe pulmonary nodule Code(s): R91.1 - Solitary pulmonary nodule Status: Acute (3) Intraventricular hemorrhage, nontraumatic Code(s): I61.5 - Nontraumatic intracerebral hemorrhage, intraventricular Status: Acute (4) Hypertensive emergency Code(s): I16.1 - Hypertensive emergency Status: Acute (5) Metabolic encephalopathy Code(s): G93.41 - Metabolic encephalopathy Status: Acute (6) Altered mental status Code(s): R41.82 - Altered mental status, unspecified Status: Acute (7) History of peripheral arterial disease Code(s): Z86.79 - Personal history of other diseases of the circulatory system Status: Chronic (8) History of hypertension Code(s): Z86.79 - Personal history of other diseases of the circulatory system Status: Chronic (9) Cessation of tobacco use in previous 12 months Code(s): Z87.891 - Personal history of nicotine dependence Status: Chronic - Plan 1 O2 nasal cannula 4 L and wean 2. Continue DuoNeb nebs 4 times daily. 3. CBC BMP chest x-ray in a.m. 4. Workup for lung mass when clinically stable 5. Continue antibiotics as ordered 6 Symbicort 160 about 4.5 mcg 1 puff twice daily 7. Stop sedation 8. Continue antibiotics as ordered 9. Tube feedings at 50 cc/h Jevity 10. Continue prednisone 10 mg twice daily 11. BiPAP 12/5 centimeters 30% FiO2 if she desaturates (6) Altered mental status Qualifiers: Altered mental status type: unspecified Qualified Code(s): R41.82 - Altered mental status, unspecified
[2018-06-20] MEDS: Metoprolol Inj 5 MG/5 ML Vial IV.PUSH SCH ×5 (00:35→23:56)
[2018-06-20] MEDS: Lacosamide Inj 50 MG in Sodium Chlor 0.9% Inj 100 ML IV.SIG SCH ×2 (04:35→17:48)
[2018-06-20] MEDS: Artificial Tears Opth Drops 15 ML Bottle EACH EYE SCH ×3 (04:36→20:26)
[2018-06-20 05:44] LABS: Hematocrit 30.3 % (35.0-46.0); Hemoglobin 10.1 gm/dL (11.6-15.3); Mean Corpuscular HGB Conc 33.1 % (32.0-36.0); Mean Corpuscular Hemoglobin 32.8 pg (27.0-34.0); Mean Platelet Volume 8.4 fL (7.0-11.0); Red Blood Count 3.06 mil/mm3 (4.00-5.30); Red Cell Distribution Width 14.5 % (11.6-17.2)
[2018-06-20 05:45] LABS: Platelet Count 455 th/mm3 (150-450); White Blood Count 14.2 th/mm3 (4.0-11.0)
[2018-06-20 05:50] LABS: Anion Gap 9 meq/L (5-15); Blood Urea Nitrogen 13 mg/dL (7-18); Calcium 8.8 mg/dL (8.5-10.1); Carbon Dioxide 29.4 meq/L (21.0-32.0); Chloride 104 meq/L (98-107); Glomerular Filtration Rate Greater Than 89 mL/min (>89); Glucose,Random 109 mg/dL (74-106); Magnesium 2.5 mg/dL (1.5-2.5); Phosphorus 4.3 mg/dL (2.5-4.9); Sodium 142 meq/L (136-145)
[2018-06-20] MEDS: Fosphenytoin Inj 200 MGPE in Sodium Chlor 0.9% Inj 50 ML IV.SIG SCH ×3 (05:57→22:21)
[2018-06-20] MEDS: amLODIPine 5 MG Tablet PO SCH (10:11)
[2018-06-20] MEDS: Enoxaparin Inj 40 MG/0.4 ML Syringe SQ SCH (10:11)
[2018-06-20] MEDS: Pantoprazole Inj 40 MG Vial IV.PUSH SCH (10:11)
[2018-06-20] MEDS: Budesonide-Formoterol 160/4.5 MCG 6 GM Inhaler INH SCH ×2 (10:12→20:24)
[2018-06-20] MEDS: Lisinopril 20 MG Tablet PO SCH (10:12)
[2018-06-20] MEDS: Senna/Docusate Sodium 8.6/50 MG Tablet PO SCH ×2 (10:12→20:24)
[2018-06-20] MEDS: Sodium Chloride 1 GM Tablet PO SCH ×2 (10:12→20:24)
[2018-06-20] MEDS: levETIRAcetam Inj 1,500 MG in Sodium Chlor 0.9% Inj 100 ML IV.SIG SCH ×2 (11:45→23:55)
--- NOTE | 2018-06-20 12:50 | P.PNNS ---
Subjective Interval history: extubated, no changes neurologically overnight <Samanta Banda - Last Filed: 06/20/18 12:47> Physical Exam Vital signs: Vital Signs 06/19/18 13:00 06/19/18 13:05 06/19/18 14:00 Temperature Pulse Rate 97 H 97 H 100 H Respiratory Rate Blood Pressure 153/67 H Pulse Oximetry 99 99 98 06/19/18 14:05 06/19/18 15:00 06/19/18 15:05 Temperature Pulse Rate 100 H 108 H 104 H Respiratory Rate Blood Pressure 157/71 H 194/77 H Pulse Oximetry 98 06/19/18 15:09 06/19/18 15:18 06/19/18 16:00 Temperature Pulse Rate 103 H 102 H 106 H Respiratory Rate 18 Blood Pressure 167/71 H Pulse Oximetry 97 06/19/18 16:05 06/19/18 17:00 06/19/18 17:05 Temperature 99.0 F Pulse Rate 105 H 122 H 122 H Respiratory Rate Blood Pressure 161/69 H 149/67 H Pulse Oximetry 97 98 96 06/19/18 17:11 06/19/18 17:27 06/19/18 17:56 Temperature Pulse Rate 126 H 128 H 109 H Respiratory Rate 28 H 28 H Blood Pressure 121/56 L Pulse Oximetry 94 L 06/19/18 18:00 06/19/18 18:05 06/19/18 19:05 Temperature Pulse Rate 107 H 108 H 114 H Respiratory Rate 18 Blood Pressure 144/63 H 126/61 Pulse Oximetry 94 L 94 L 92 L 06/19/18 20:00 06/19/18 20:04 06/19/18 20:06 Temperature Pulse Rate 117 H 116 H Respiratory Rate 18 19 Blood Pressure 136/59 L Pulse Oximetry 90 L 97 06/19/18 21:00 06/19/18 22:00 06/19/18 23:00 Temperature Pulse Rate 121 H 114 H 118 H Respiratory Rate 18 16 Blood Pressure 123/56 L 157/67 H 153/66 H Pulse Oximetry 89 L 92 L 96 06/20/18 00:00 06/20/18 01:00 06/20/18 02:00 Temperature 99.0 F Pulse Rate 115 H 101 H 106 H Respiratory Rate 18 Blood Pressure 154/65 H 161/70 H 149/65 H Pulse Oximetry 97 99 98 06/20/18 03:00 06/20/18 03:27 06/20/18 04:00 Temperature Pulse Rate 104 H 106 H 108 H Respiratory Rate 19 18 Blood Pressure 152/68 H 150/65 H Pulse Oximetry 97 06/20/18 05:00 06/20/18 06:00 06/20/18 07:00 Temperature 99.0 F Pulse Rate 108 H 107 H 88 Respiratory Rate 22 Blood Pressure 149/66 H 164/69 H Pulse Oximetry 93 L 96 99 06/20/18 07:05 06/20/18 08:00 06/20/18 08:05 Temperature 97.7 F Pulse Rate 89 83 83 Respiratory Rate Blood Pressure 159/71 H 131/63 Pulse Oximetry 99 100 100 06/20/18 09:00 06/20/18 09:05 06/20/18 10:00 Temperature Pulse Rate 95 H 98 H 86 Respiratory Rate 24 Blood Pressure 142/66 H Pulse Oximetry 98 97 99 06/20/18 10:05 06/20/18 10:29 06/20/18 10:38 Temperature Pulse Rate 86 102 H 99 H Respiratory Rate Blood Pressure 126/57 L 167/70 H 168/72 H Pulse Oximetry 100 97 100 06/20/18 10:46 06/20/18 11:00 06/20/18 11:22 Temperature Pulse Rate 96 H Respiratory Rate Blood Pressure 135/64 Pulse Oximetry 100 99 100 06/20/18 12:00 06/20/18 12:05 Temperature 98.0 F Pulse Rate 90 90 Respiratory Rate Blood Pressure 183/77 H Pulse Oximetry 100 100 Intake & Output 06/19/18 06/20/18 06/20/18 18:59 06:59 18:59 Intake Total 428 / 428 328 / 328 Output Total 1200 / 1200 1575 / 1575 Balance -772 / -772 -1247 / -1247 Weight 66 kg Intake: IV 274 / 274 328 / 328 Cerebyx Inj 200 MGPE In NS Inj 54 / 54 108 / 108 50 ML @ 216 mls/hr IV.SIG Q8HR [facility] Rx#:[id number] Vimpat Inj 50 MG In NS Inj 100 105 / 105 105 / 105 ML @ 105 mls/hr IV.SIG Q12H [facility] Rx#:[id number] Keppra Inj 1,500 MG In NS Inj 115 / 115 115 / 115 100 ML @ 400 mls/hr IV.SIG Q12H [facility] Rx#:[id number] Tube Feeding 154 / 154 Output: Urine Amount (Catheter) 1200 / 1200 1575 / 1575 Female External 1200 / 1200 1575 / 1575 Other: # Incontinent Voids 4 Date of Last Bowel Movement 06/19/18 06/19/18 06/19/18 # Bowel Movements 2 Narrative: extubated on nonrebreather neb treatment awake, alert, interacting, nodding appropriately moving extremities, right side stronger wound healing well - Urinary Catheter Management Female External Cath placed during this visit: no Reason for continuing: Not indwelling catheter Indwelling Urethral Catheter Cath placed during this visit: yes, but has since been removed by the nurse Reason for continuing: Decision to DC catheter Insertion date: 06/05/18 Insertion time: 08:30 Removal date: 06/16/18 Removal time: 21:51 <Samanta Banda - Last Filed: 06/20/18 12:47> Vital signs: Vital Signs 06/24/18 15:39 06/24/18 20:19 06/24/18 23:13 Temperature 97.6 F 99.1 F Pulse Rate 89 106 H Respiratory Rate 18 18 Blood Pressure 122/60 119/55 L Pulse Oximetry 97 96 96 06/25/18 00:30 06/25/18 05:01 06/25/18 07:33 Temperature 98.2 F 98.3 F 98.1 F Pulse Rate 83 86 82 Respiratory Rate 18 18 18 Blood Pressure 121/58 L 143/67 H 130/61 Pulse Oximetry 98 95 98 06/25/18 11:37 Temperature 98.4 F Pulse Rate 82 Respiratory Rate 18 Blood Pressure 142/65 H Pulse Oximetry 94 L Intake & Output 06/24/18 06/25/18 06/25/18 18:59 06:59 18:59 Intake Total 994 / 994 169 / 169 274 / 274 Output Total 1300 / 1300 425 / 425 Balance -306 / -306 -256 / -256 274 / 274 Weight 60.1 kg Intake: IV 274 / 274 169 / 169 274 / 274 Cerebyx Inj 200 MGPE In NS Inj 54 / 54 54 / 54 54 / 54 50 ML @ 216 mls/hr IV.SIG Q8HR [facility] Rx#:[id number] Vimpat Inj 50 MG In NS Inj 100 105 / 105 105 / 105 ML @ 105 mls/hr IV.SIG Q12H [facility] Rx#:[id number] Keppra Inj 1,500 MG In NS Inj 115 / 115 115 / 115 115 / 115 100 ML @ 400 mls/hr IV.SIG Q12H [facility] Rx#:[id number] Oral 720 / 720 Output: Urine 1300 / 1300 425 / 425 Other: Date of Last Bowel Movement 06/19/18 06/19/18 06/19/18 - Urinary Catheter Management Female External Cath placed during this visit: no Indwelling Urethral Catheter Cath placed during this visit: no <Duke Palacios - Last Filed: 06/25/18 14:29> Assessment and Plan - Plan 78 yo female with vague constellation of symptoms GCS-[address] shows 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 hemorrhagic mass Will follow with you 05/30/18: cont neuro checks in ICU Dr. 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 at midnight on Monday night into Monday Minimize sedating meds, etc. 06/03/18: Appears to be a bit more encephalopathic today, possible contribution of hospital delirium versus her mild hydrocephalus, though favor delirium since her level of alertness remains stable Dr. 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 at midnight tonight Continue to minimize sedating meds, etc. 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 Palacios 06/06/18: POD #1. pt had seizure last night requiring intubation. She has been started on Keppra for seizures. On exam she opens eyes and follows commands. Postoperative MRI Brain w/wo contrast has been ordered and pending. Obtain EEG to assess seizures. Continue ventriculostomy draining, add ICP monitoring. Start sq lovenox for dvt prophylaxis. Will follow. 06/07/18: POD #2. patient neurologically stable, opens eyes and follows commands. Postoperative MRI Brain reviewed by neurosurgery team. Spot EEG reports no ongoing seizures, with high amplitude sharp waves on left?breach rhythm. Critical care plans on extubation today. Continue ventriculostomy draining at 10 mmHg. Final pathology pending. Neurology following for seizure management. Will follow. 06/08/18: POD #3. patient neurologically stable, opens eyes and follows commands. Ventriculostomy draining well with controlled ICPs, will continue at 10mmHg. Pathology still pending. cont seizure management per Neurology. dw critical care. will follow. 06/09/2018 POD#4 Remains Neurologically stable, follows commands Stop sedation wean ventilator to CPAP 5 x 12 and FiO2 30% Continue DuoNeb nebs 4 times daily. Check respiratory parameters and consider extubation Agree with Symbicort 160 about 4.5 mcg 1 puff twice daily and Solu-Medrol 40 mg IV twice daily Continue EVD Would maintain SBP 140-160 to improve CPP. 06/10/2018 POD#5 Seizure yesterday, and last night, have increased Cerebyx and Keppra D/C'ed Barbs would prefer to maintain on 2 agents and high therapeutic levels of Cerebyx, usually best with brain tumors Free Dilantin levels not easily obtainable here. Lets keep level around 20 with standard level remains Neurologically stable wean ventilator to CPAP 5 x 12 and FiO2 30% and if OK, may extubate from Neurosurgical standpoint. 06/11/18 POD #6 seizures controlled overnight, will continue Cerebyx 200 tid and Keppra 1500 bid. Dilantin levels 17.6 today continue critical care - vent weaning - CPAP trials cont EVD draining at 5 mmHg final pathology still pending will follow 06/12/18 POD #7 pt failed extubation yesterday, reintubated- critical care managing repeat EEG 06/11/18 abnormal with sharp activities left hemisphere dilantin levels 18.8 this morning cont current anticonvulsants, will repeat EEG today obtained follow up CT Brain this morning which was reviewed by Dr. Perdue, EVD raised to 15 mmHg neuro exam today appears better final pathology still pending 06/13/18 POD #8 neurologically she is awake, alert EEG yesterday 06/12/18 - mod encephalopathy, no reports of any seizure activities cont current anticonvulsants, Dilantin levels trending up pending today, started on Zosyn for gram neg rods in sputum - per critical care cont EVD challenge, cont at 15 mmHg today, plan to clamp tomorrow will follow 06/14/18 POD #9 neurologically remains awake and alert Ventriculostomy drain clamped today, follow up CT Head tomorrow am will follow 06/15/18: POD #10 neuro exam with no changes, f/u CT Head post EVD clamping reviewed by neurosurgery team, ventriculostomy drain removed, using sterile technique single stitch place, patient tolerated procedure well cont critical care management seizures controlled, continue current anticonvulsants FINAL PATHOLOGY: LOW GRADE NEOPLASM, MOST CONSISTENT WITH PILOCYTIC ASTROCYTOMA ; 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 current management Discussed Path with patient's son 06/17/2018 POD#12 Neuro: no sig. changes seizures controlled aggressive CPAP trials today DPH level 5.5 Bolused with 500 mgs. cont. ICU 06/18/2018 no neurological changes continue CPAP trials, vent wean to extubate remove surgical mamadou Dr. 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 Snell - continue CPAP, ?extubate pulmonology also following 06/20/2018 patient extubated, neuro exam unchanged, stable reconsult medical oncology for reeval for poss chemotherapy for pilocytic astrocytoma radiation oncology eval pending will follow <Samanta Banda - Last Filed: 06/20/18 12:47> - Attending Attestation Showing slow but continued Neurological Improvement Incision clean, dry I have personally seen and examined the patient, reviewed pertinent labs and imaging studies. I agree with Ms. Banda's ( Neurosurgery PA), assessment as well as plan of care. <Duke Palacios - Last Filed: 06/25/18 14:29>
--- NOTE | 2018-06-20 12:55 | P.CON ---
History of Present Illness Service: radiation oncology Reason for Consult: resected astrocytoma Primary Care Provider: Luna Brown Chief Complaint: Altered mental status intracranial bleed History of Present Illness: Ms. Pryor recent resection pilocytic astrocytoma. Also with small pulmonary nodule noted left adrenal prominence. PMFSH - History History Provided By: Patient, Family Member - Surgical History Surgical History: Surgical History (Last Reviewed 06/20/18 @ 08:20 by Vitaliy Mcnamara) Stented coronary artery - Tobacco History Second Hand Smoke Exposure: No Tobacco Use In Past 30 Days: No Smoking Status: Former smoker - Alcohol History How Often Do You Have a Drink Containing Alcohol: 4 or more times a week - Substance Use History Substance History: No History of Abuse - Travel History Recent Travel in the [place] Within the Last 8 Weeks: No Recent Travel Out of the Country Within the Last 8 Weeks: No - Immunization History Tetanus Immunization: Unsure Hx Influenza Vaccine This Season: No Medications and Allergies Active Medications: Active Medications Acetaminophen (Tylenol) 650 mg PO Q6H PRN PRN Reason: PAIN 1-10 AND/OR FEVER >101F Last Admin: 06/15/18 00:08 Dose: 650 mg Al Hydroxide/Mg Hydroxide (Milk Of Heidi Lilorraine) 30 ml PO Q12H PRN PRN Reason: Mild Constipation Albuterol (Albuterol Neb (Prn)) 2.5 mg NEB Q2HR NEB PRN PRN Reason: DYSPNEA Last Admin: 06/19/18 17:27 Dose: 2.5 mg Albuterol (Duoneb Neb (Batsheva)) 1 ampul NEB Q6HR NEB [facility] Last Admin: 06/20/18 10:28 Dose: 1 ampul Amlodipine Besylate (Norvasc) 10 mg PO DAILY [facility] Last Admin: 06/20/18 10:11 Dose: Not Given Artificial Tears (Tears Naturale Opth Drops) 1 drop EACH EYE Q8H [facility] Last Admin: 06/20/18 11:46 Dose: 1 drop Bisacodyl (Dulcolax Supp) 10 mg RECTAL DAILY PRN PRN Reason: SEVERE CONSITIPATION Budesonide/Formoterol Fumarate (Symbicort 160/4.5 Mcg Inh) 1 puff INH BID [facility] Last Admin: 06/20/18 10:12 Dose: Not Given Clonidine HCl (Catapres) 0.1 mg PO Q8HR [facility] Last Admin: 06/20/18 05:27 Dose: Not Given Dexamethasone Sodium Phosphate (Decadron Inj) 4 mg IV.PUSH Q8HR [facility] Last Admin: 06/20/18 05:57 Dose: 4 mg Enalaprilat (Vasotec Inj) 2.5 mg IV.PUSH Q6H PRN PRN Reason: SBP > 150 Last Admin: 06/07/18 09:03 Dose: 2.5 mg Enoxaparin Sodium (Lovenox Inj) 40 mg SQ DAILY [facility] Last Admin: 06/20/18 10:11 Dose: 40 mg Hydralazine HCl (Apresoline Inj) 10 mg IV.PUSH Q30M PRN PRN Reason: SBP > 160 Last Admin: 06/19/18 16:27 Dose: 10 mg Nicardipine HCl 25 mg/ Sodium (Chloride) 250 mls @ 50 mls/hr IV.CONT TITRATE PRN; Protocol PRN Reason: Per Protocol Last Titration: 06/05/18 13:39 Dose: 0 mg/hr, 0 mls/hr Magnesium Sulfate 4 gm/ Sodium (Chloride) 100 mls @ 50 mls/hr IV.SIG UNSCH PRN PRN Reason: For Magnesium 0.9 - 1.1 mg/dL Magnesium Sulfate 2 gm/ Sodium (Chloride) 100 mls @ 50 mls/hr IV.SIG UNSCH PRN PRN Reason: For Magnesium 1.2 - 1.6 mg/dL Potassium Chloride (Kcl 40 Meq Premix Inj) 40 meq in 100 mls @ 25 mls/hr IV.SIG Q2H PRN PRN Reason: For Potassium 2.8 - 3.2 mEq/L Potassium Chloride (Kcl 20 Meq Premix Inj) 20 meq in 100 mls @ 50 mls/hr IV.SIG Q2H PRN PRN Reason: For Potassium 3.3 - 3.5 mEq/L Last Infusion: 06/07/18 07:00 Dose: Infused Potassium Chloride (Kcl 40 Meq Premix Inj) 40 meq in 100 mls @ 25 mls/hr IV.SIG UNSCH PRN PRN Reason: For Potassium 3.3 - 3.5 mEq/L Potassium Chloride (Kcl 20 Meq Premix Inj) 20 meq in 100 mls @ 50 mls/hr IV.SIG Q2H PRN PRN Reason: For Potassium 2.8 - 3.2 mEq/L Last Infusion: 06/13/18 08:11 Dose: Infused Potassium Phosphate 30 mmol/ (Sodium Chloride) 260 mls @ 42 mls/hr IV.SIG UNSCH PRN PRN Reason: SEE LABEL COMMENTS Dexmedetomidine HCl 200 mcg/ (Sodium Chloride) 50 mls @ 2.79 mls/hr IV.CONT TITRATE PRN; Protocol PRN Reason: Per Protocol Last Titration: 06/07/18 08:10 Dose: 0 mcg/kg/hr, 0 mls/hr Clevidipine (Cleviprex Inj) 25 mg in 50 mls @ 2 mls/hr IV.CONT TITRATE PRN; Protocol PRN Reason: Per protocol Last Titration: 06/09/18 10:10 Dose: Infused Sodium Glycerophosphate 30 (mmol/ Sodium Chloride) 280 mls @ 42 mls/hr IV.SIG UNSCH PRN PRN Reason: For Phosphorus < 2.5 mg/dL Last Infusion: 06/09/18 06:45 Dose: Infused Levetiracetam 1,500 mg/ Sodium (Chloride) 115 mls @ 400 mls/hr IV.SIG Q12H [facility] Last Admin: 06/20/18 11:45 Dose: 400 mls/hr Lacosamide 50 mg/ Sodium (Chloride) 105 mls @ 105 mls/hr IV.SIG Q12H [facility] Last Infusion: 06/20/18 06:26 Dose: Infused Fosphenytoin Sodium 200 mgpe/ (Sodium Chloride) 54 mls @ 216 mls/hr IV.SIG Q8HR [facility] Last Infusion: 06/20/18 06:26 Dose: Infused Labetalol HCl (Trandate Inj) 10 mg IV.PUSH Q1H PRN PRN Reason: Sbp>140, Dbp>90 Lactulose (Lactulose Liq) 30 ml PO DAILY PRN PRN Reason: SEVERE CONSITIPATION Lisinopril (Prinivil) 40 mg PO DAILY [facility] Last Admin: 06/20/18 10:12 Dose: Not Given Lorazepam (Ativan Inj) 1 mg IV.PUSH Q10M PRN PRN Reason: SEIZURES Last Admin: 06/13/18 12:48 Dose: 1 mg Magnesium Oxide (Mag-Ox) 800 mg PO UNSCH PRN PRN Reason: For Magnesium 1.2 - 1.6 mg/dL Methylphenidate HCl (Ritalin) 10 mg PO BID@0700,1200 [facility] Last Admin: 06/20/18 11:46 Dose: Not Given Metoprolol Tartrate (Lopressor) 50 mg PO BID [facility] Last Admin: 06/19/18 08:38 Dose: Not Given Metoprolol Tartrate (Lopressor Inj) 5 mg IV.PUSH Q6H [facility] Last Admin: 06/20/18 11:46 Dose: 5 mg Morphine Sulfate (Morphine Inj) 2 mg IV.PUSH Q30M PRN PRN Reason: SEVERE ANXIETY OR AGITATION Last Admin: 06/17/18 06:39 Dose: 2 mg Padimate O (Chapstick) 1 applicatio TOPICAL UNSCH PRN PRN Reason: dry lips Last Admin: 06/17/18 13:31 Dose: 1 applicatio Pantoprazole Sodium (Protonix Inj) 40 mg IV.PUSH DAILY [facility] Last Admin: 06/20/18 10:11 Dose: 40 mg Potassium Chloride (Kcl Liq) 40 meq PO UNSCH PRN PRN Reason: Potassium level 3.3-3.5 mEq/L Last Admin: 06/02/18 06:38 Dose: 40 meq Potassium Chloride (Kcl Liq) 40 meq PO UNSCH PRN PRN Reason: Potassium level 3.3-3.5 mEq/L Potassium Phosphate (K-Phos Original) 2,000 mg PO Q4H PRN PRN Reason: Phosphorus Less Than 2.5 mg/dL Last Admin: 06/12/18 16:36 Dose: 2,000 mg Potassium Phosphate (K-Phos Original) 2,000 mg PO UNSCH PRN PRN Reason: SEE LABEL COMMENTS Last Admin: 06/08/18 16:09 Dose: 2,000 mg Pravastatin Sodium (Pravachol) 40 mg PO DAILY [facility] Last Admin: 06/20/18 10:12 Dose: Not Given Prednisone (Deltasone) 10 mg PO BID [facility] Stop: 06/24/18 23:59 Last Admin: 06/19/18 08:44 Dose: 10 mg Senna/Docusate Sodium (Kate-Colace) 1 tab PO BID [facility] Last Admin: 06/20/18 10:12 Dose: Not Given Sennosides (Senokot) 17.2 mg PO Q12H PRN PRN Reason: Moderate Constipation Sodium Chloride (Ns Flush) 2 ml IV.FLUSH PRN PRN PRN Reason: FLUSH AFTER USING IV ACCESS Last Admin: 06/13/18 09:31 Dose: 2 ml Sodium Chloride (Ns Flush) 2 ml IV.FLUSH BID [facility] Last Admin: 06/20/18 10:12 Dose: 2 ml Sodium Chloride (Sodium Chloride) 2 gm PO BID [facility] Last Admin: 06/20/18 10:12 Dose: Not Given Allergies Allergy/AdvReac Type Severity Reaction Status Date / Time No Known Allergies Allergy Verified 05/29/18 15:32 Home Medications Medication Instructions Recorded Confirmed Type amlodipine 5 mg PO DAILY 05/29/18 05/29/18 History clopidogrel 75 mg PO DAILY 05/29/18 05/29/18 History lisinopril 40 mg PO DAILY 05/29/18 05/29/18 History pravastatin 40 mg PO DAILY 05/29/18 05/29/18 History Physical Exam Vital signs: Vital Signs 06/19/18 13:00 06/19/18 13:05 06/19/18 14:00 Temperature Pulse Rate 97 H 97 H 100 H Respiratory Rate Blood Pressure 153/67 H Pulse Oximetry 99 99 98 06/19/18 14:05 06/19/18 15:00 06/19/18 15:05 Temperature Pulse Rate 100 H 108 H 104 H Respiratory Rate Blood Pressure 157/71 H 194/77 H Pulse Oximetry 98 06/19/18 15:09 06/19/18 15:18 06/19/18 16:00 Temperature Pulse Rate 103 H 102 H 106 H Respiratory Rate 18 Blood Pressure 167/71 H Pulse Oximetry 97 06/19/18 16:05 06/19/18 17:00 06/19/18 17:05 Temperature 99.0 F Pulse Rate 105 H 122 H 122 H Respiratory Rate Blood Pressure 161/69 H 149/67 H Pulse Oximetry 97 98 96 06/19/18 17:11 06/19/18 17:27 06/19/18 17:56 Temperature Pulse Rate 126 H 128 H 109 H Respiratory Rate 28 H 28 H Blood Pressure 121/56 L Pulse Oximetry 94 L 06/19/18 18:00 06/19/18 18:05 06/19/18 19:05 Temperature Pulse Rate 107 H 108 H 114 H Respiratory Rate 18 Blood Pressure 144/63 H 126/61 Pulse Oximetry 94 L 94 L 92 L 06/19/18 20:00 06/19/18 20:04 06/19/18 20:06 Temperature Pulse Rate 117 H 116 H Respiratory Rate 18 19 Blood Pressure 136/59 L Pulse Oximetry 90 L 97 06/19/18 21:00 06/19/18 22:00 06/19/18 23:00 Temperature Pulse Rate 121 H 114 H 118 H Respiratory Rate 18 16 Blood Pressure 123/56 L 157/67 H 153/66 H Pulse Oximetry 89 L 92 L 96 06/20/18 00:00 06/20/18 01:00 06/20/18 02:00 Temperature 99.0 F Pulse Rate 115 H 101 H 106 H Respiratory Rate 18 Blood Pressure 154/65 H 161/70 H 149/65 H Pulse Oximetry 97 99 98 06/20/18 03:00 06/20/18 03:27 06/20/18 04:00 Temperature Pulse Rate 104 H 106 H 108 H Respiratory Rate 19 18 Blood Pressure 152/68 H 150/65 H Pulse Oximetry 97 06/20/18 05:00 06/20/18 06:00 06/20/18 07:00 Temperature 99.0 F Pulse Rate 108 H 107 H 88 Respiratory Rate 22 Blood Pressure 149/66 H 164/69 H Pulse Oximetry 93 L 96 99 06/20/18 07:05 06/20/18 08:00 06/20/18 08:05 Temperature 97.7 F Pulse Rate 89 83 83 Respiratory Rate Blood Pressure 159/71 H 131/63 Pulse Oximetry 99 100 100 06/20/18 09:00 06/20/18 09:05 06/20/18 10:00 Temperature Pulse Rate 95 H 98 H 86 Respiratory Rate 24 Blood Pressure 142/66 H Pulse Oximetry 98 97 99 06/20/18 10:05 06/20/18 10:29 06/20/18 10:38 Temperature Pulse Rate 86 102 H 99 H Respiratory Rate Blood Pressure 126/57 L 167/70 H 168/72 H Pulse Oximetry 100 97 100 06/20/18 10:46 06/20/18 11:00 06/20/18 11:22 Temperature Pulse Rate 96 H Respiratory Rate Blood Pressure 135/64 Pulse Oximetry 100 99 100 06/20/18 12:00 06/20/18 12:05 Temperature 98.0 F Pulse Rate 90 90 Respiratory Rate Blood Pressure 183/77 H Pulse Oximetry 100 100 Intake & Output 06/19/18 06/20/18 06/20/18 18:59 06:59 18:59 Intake Total 428 / 428 328 / 328 Output Total 1200 / 1200 1575 / 1575 Balance -772 / -772 -1247 / -1247 Weight 66 kg Intake: IV 274 / 274 328 / 328 Cerebyx Inj 200 MGPE In NS Inj 54 / 54 108 / 108 50 ML @ 216 mls/hr IV.SIG Q8HR [facility] Rx#:[id number] Vimpat Inj 50 MG In NS Inj 100 105 / 105 105 / 105 ML @ 105 mls/hr IV.SIG Q12H [facility] Rx#:[id number] Keppra Inj 1,500 MG In NS Inj 115 / 115 115 / 115 100 ML @ 400 mls/hr IV.SIG Q12H [facility] Rx#:[id number] Tube Feeding 154 / 154 Output: Urine Amount (Catheter) 1200 / 1200 1575 / 1575 Female External 1200 / 1200 1575 / 1575 Other: # Incontinent Voids 4 Date of Last Bowel Movement 06/19/18 06/19/18 06/19/18 # Bowel Movements 2 - Urinary Catheter Management Female External Cath placed during this visit: no Reason for continuing: Not indwelling catheter Indwelling Urethral Catheter Cath placed during this visit: yes, but has since been removed by the nurse Reason for continuing: Decision to DC catheter Insertion date: 06/05/18 Insertion time: 08:30 Removal date: 06/16/18 Removal time: 21:51 Results - Labs CBC & Chem 7: 06/20/18 04:53 06/20/18 04:53 Labs: Laboratory Results - last 24 hr 06/20/18 06/20/18 04:53 04:53 WBC 14.2 H RBC 3.06 L Hgb 10.1 L Hct 30.3 L MCV 99.0 MCH 32.8 MCHC 33.1 RDW 14.5 Plt Count 455 H MPV 8.4 Hematology Comments Sodium 142 Potassium 4.0 Chloride 104 Carbon Dioxide 29.4 Anion Gap 9 BUN 13 Creatinine 0.32 L Estimated GFR Greater than 89 Random Glucose 109 H Calcium 8.8 D Phosphorus 4.3 Magnesium 2.5 Assessment and Plan - Plan I will speak further with her by telephone 06-20-18. Patient seen 06-19-18. We discussed likely good outcomes from recent cranial resection and further work up outpatient and potential role xrt. Discussed with dr langston as well. Outpatient appointment will be made in next week or so too.
--- NOTE | 2018-06-20 18:14 | P.PNONC ---
Subjective Interval history: No family at bedside called at home. No history obtained from pt. Awake but do not respond. Nurse at bedside. Objective Vital Signs/Intake & Output: Vital Signs 06/19/18 19:05 06/19/18 20:00 06/19/18 20:04 Temperature Pulse Rate 114 H 117 H Respiratory Rate 18 18 Blood Pressure 126/61 136/59 L Pulse Oximetry 92 L 90 L 97 06/19/18 20:06 06/19/18 21:00 06/19/18 22:00 Temperature Pulse Rate 116 H 121 H 114 H Respiratory Rate 19 18 16 Blood Pressure 123/56 L 157/67 H Pulse Oximetry 89 L 92 L 06/19/18 23:00 06/20/18 00:00 06/20/18 01:00 Temperature 99.0 F Pulse Rate 118 H 115 H 101 H Respiratory Rate 18 Blood Pressure 153/66 H 154/65 H 161/70 H Pulse Oximetry 96 97 99 06/20/18 02:00 06/20/18 03:00 06/20/18 03:27 Temperature Pulse Rate 106 H 104 H 106 H Respiratory Rate 19 Blood Pressure 149/65 H 152/68 H Pulse Oximetry 98 97 06/20/18 04:00 06/20/18 05:00 06/20/18 06:00 Temperature 99.0 F Pulse Rate 108 H 108 H 107 H Respiratory Rate 18 22 Blood Pressure 150/65 H 149/66 H 164/69 H Pulse Oximetry 93 L 96 06/20/18 07:00 06/20/18 07:05 06/20/18 08:00 Temperature 97.7 F Pulse Rate 88 89 83 Respiratory Rate Blood Pressure 159/71 H Pulse Oximetry 99 99 100 06/20/18 08:05 06/20/18 09:00 06/20/18 09:05 Temperature Pulse Rate 83 95 H 98 H Respiratory Rate 24 Blood Pressure 131/63 142/66 H Pulse Oximetry 100 98 97 06/20/18 10:00 06/20/18 10:05 06/20/18 10:29 Temperature Pulse Rate 86 86 102 H Respiratory Rate Blood Pressure 126/57 L 167/70 H Pulse Oximetry 99 100 97 06/20/18 10:38 06/20/18 10:46 06/20/18 11:00 Temperature Pulse Rate 99 H Respiratory Rate Blood Pressure 168/72 H Pulse Oximetry 100 100 99 02/06/19 11:22 06/20/18 12:00 06/20/18 12:05 Temperature 98.0 F Pulse Rate 96 H 90 90 Respiratory Rate Blood Pressure 135/64 183/77 H Pulse Oximetry 100 100 100 06/20/18 13:00 06/20/18 13:05 06/20/18 14:00 Temperature Pulse Rate 80 79 87 Respiratory Rate Blood Pressure 134/60 Pulse Oximetry 100 100 100 06/20/18 14:05 06/20/18 15:00 06/20/18 15:05 Temperature Pulse Rate 87 89 88 Respiratory Rate Blood Pressure 154/74 H 175/73 H Pulse Oximetry 100 100 100 06/20/18 15:54 06/20/18 16:00 06/20/18 16:05 Temperature 98.0 F Pulse Rate 90 91 H 90 Respiratory Rate Blood Pressure 178/76 H 166/72 H Pulse Oximetry 100 98 100 06/20/18 16:30 06/20/18 16:36 06/20/18 16:47 Temperature Pulse Rate 92 H 96 H Respiratory Rate 20 Blood Pressure 160/74 H Pulse Oximetry 100 06/20/18 17:00 06/20/18 17:05 06/20/18 17:10 Temperature Pulse Rate 110 H 101 H 117 H Respiratory Rate Blood Pressure 224/109 H 236/106 H Pulse Oximetry 90 L 100 91 L 06/20/18 17:12 06/20/18 17:22 Temperature Pulse Rate 117 H 108 H Respiratory Rate Blood Pressure 226/103 H 163/72 H Pulse Oximetry 87 L 92 L Intake & Output 06/19/18 06/20/18 06/20/18 18:59 06:59 18:59 Intake Total 428 / 428 328 / 328 169 / 169 Output Total 1200 / 1200 1575 / 1575 Balance -772 / -772 -1247 / -1247 169 / 169 Weight 66 kg Intake: IV 274 / 274 328 / 328 169 / 169 Cerebyx Inj 200 MGPE In NS Inj 54 / 54 108 / 108 54 / 54 50 ML @ 216 mls/hr IV.SIG Q8HR [facility] Rx#:[id number] Vimpat Inj 50 MG In NS Inj 100 105 / 105 105 / 105 ML @ 105 mls/hr IV.SIG Q12H [facility] Rx#:[id number] Keppra Inj 1,500 MG In NS Inj 115 / 115 115 / 115 115 / 115 100 ML @ 400 mls/hr IV.SIG Q12H [facility] Rx#:[id number] Tube Feeding 154 / 154 Output: Urine Amount (Catheter) 1200 / 1200 1575 / 1575 Female External 1200 / 1200 1575 / 1575 Other: # Incontinent Voids 4 Date of Last Bowel Movement 06/19/18 06/19/18 06/19/18 # Bowel Movements 2 Result Diagrams: 06/20/18 04:53 06/20/18 04:53 Laboratory Results: Laboratory Results - last 24 hr 06/20/18 06/20/18 04:53 04:53 WBC 14.2 H RBC 3.06 L Hgb 10.1 L Hct 30.3 L MCV 99.0 MCH 32.8 MCHC 33.1 RDW 14.5 Plt Count 455 H MPV 8.4 Hematology Comments Sodium 142 Potassium 4.0 Chloride 104 Carbon Dioxide 29.4 Anion Gap 9 BUN 13 Creatinine 0.32 L Estimated GFR Greater than 89 Random Glucose 109 H Calcium 8.8 D Phosphorus 4.3 Magnesium 2.5 Medications: Active Medications Generic Name Dose Route Start Last Admin Trade Name Freq PRN Reason Stop Dose Admin Acetaminophen 650 mg 05/29/18 15:36 06/15/18 00:08 Tylenol PO 650 mg Q6H PRN Administration PAIN 1-10 AND/OR FEVER >101F Albuterol 2.5 mg 06/06/18 10:58 06/19/18 17:27 Albuterol Neb (Prn) NEB 2.5 mg Q2HR NEB PRN Administration DYSPNEA Albuterol 1 ampul 06/18/18 22:00 06/20/18 16:15 Duoneb Neb (Batsheva) NEB 1 ampul Q6HR NEB [facility] Administration Amlodipine Besylate 10 mg 06/10/18 09:00 06/20/18 10:11 Norvasc PO Not Given DAILY [facility] Artificial Tears 1 drop 06/06/18 12:00 06/20/18 11:46 Tears Naturale Opth Drops EACH EYE 1 drop Q8H [facility] Administration Budesonide/Formoterol Fumarate 1 puff 06/01/18 21:00 06/20/18 10:12 Symbicort 160/4.5 Mcg Inh INH Not Given BID [facility] Clonidine HCl 0.1 mg 06/09/18 14:00 06/20/18 14:39 Catapres PO Not Given Q8HR [facility] Dexamethasone Sodium Phosphate 4 mg 06/19/18 22:00 06/20/18 14:38 Decadron Inj IV.PUSH 4 mg Q8HR [facility] Administration Enalaprilat 2.5 mg 06/01/18 02:01 06/07/18 09:03 Vasotec Inj IV.PUSH 2.5 mg Q6H PRN Administration SBP > 150 Enoxaparin Sodium 40 mg 06/07/18 09:00 06/20/18 10:11 Lovenox Inj SQ 40 mg DAILY [facility] Administration Hydralazine HCl 10 mg 06/05/18 13:15 06/19/18 16:27 Apresoline Inj IV.PUSH 10 mg Q30M PRN Administration SBP > 160 Nicardipine HCl 25 mg/ Sodium 250 mls @ 50 mls/hr 05/29/18 15:38 06/05/18 13: 39 Chloride IV.CONT 0 mg/hr TITRATE PRN 0 mls/hr Per Protocol Titration Protocol 5 MG/HR Potassium Chloride 20 meq in 100 mls @ 50 mls/hr 05/29/18 16:53 06/07/18 07: 00 Kcl 20 Meq Premix Inj IV.SIG Infused Q2H PRN Infusion For Potassium 3.3 - 3.5 mEq/L Potassium Chloride 20 meq in 100 mls @ 50 mls/hr 05/29/18 16:53 06/13/18 08: 11 Kcl 20 Meq Premix Inj IV.SIG Infused Q2H PRN Infusion For Potassium 2.8 - 3.2 mEq/L Dexmedetomidine HCl 200 mcg/ 50 mls @ 2.79 mls/hr 05/30/18 18:22 06/07/18 08: 10 Sodium Chloride IV.CONT 0 mcg/kg/hr TITRATE PRN 0 mls/hr Per Protocol Titration Protocol 0.2 MCG/KG/HR Clevidipine 25 mg in 50 mls @ 2 mls/hr 06/07/18 09:39 06/09/18 10:10 Cleviprex Inj IV.CONT Infused TITRATE PRN Titration Per protocol Protocol 1 MG/HR Sodium Glycerophosphate 30 280 mls @ 42 mls/hr 06/08/18 23:00 06/09/18 06:45 mmol/ Sodium Chloride IV.SIG Infused UNSCH PRN Infusion For Phosphorus < 2.5 mg/dL Levetiracetam 1,500 mg/ Sodium 115 mls @ 400 mls/hr 06/10/18 11:00 06/20/18 12:03 Chloride IV.SIG Infused Q12H [facility] Infusion Lacosamide 50 mg/ Sodium 105 mls @ 105 mls/hr 06/13/18 05:00 06/20/18 17:48 Chloride IV.SIG 105 mls/hr Q12H [facility] Administration Fosphenytoin Sodium 200 mgpe/ 54 mls @ 216 mls/hr 06/14/18 22:00 06/20/18 14: 54 Sodium Chloride IV.SIG Infused Q8HR [facility] Infusion Lisinopril 40 mg 05/29/18 17:30 06/20/18 10:12 Prinivil PO Not Given DAILY [facility] Lorazepam 1 mg 06/05/18 14:34 06/13/18 12:48 Ativan Inj IV.PUSH 1 mg Q10M PRN Administration SEIZURES Methylphenidate HCl 10 mg 06/11/18 12:00 06/20/18 11:46 Ritalin PO Not Given BID@0700,1200 [facility] Metoprolol Tartrate 50 mg 05/30/18 14:15 06/19/18 08:38 Lopressor PO Not Given BID [facility] Metoprolol Tartrate 5 mg 06/19/18 18:00 06/20/18 17:22 Lopressor Inj IV.PUSH 5 mg Q6H [facility] Administration Morphine Sulfate 2 mg 06/01/18 18:00 06/17/18 06:39 Morphine Inj IV.PUSH 2 mg Q30M PRN Administration SEVERE ANXIETY OR AGITATION Padimate O 1 applicatio 06/11/18 17:12 06/17/18 13:31 Chapstick TOPICAL 1 applicatio UNSCH PRN Administration dry lips Pantoprazole Sodium 40 mg 06/06/18 11:00 06/20/18 10:11 Protonix Inj IV.PUSH 40 mg DAILY [facility] Administration Potassium Chloride 40 meq 05/29/18 16:53 06/02/18 06:38 Kcl Liq PO 40 meq UNSCH PRN Administration Potassium level 3.3-3.5 mEq/L Potassium Phosphate 2,000 mg 05/29/18 16:53 06/12/18 16:36 K-Phos Original PO 2,000 mg Q4H PRN Administration Phosphorus Less Than 2.5 mg/dL Potassium Phosphate 2,000 mg 05/29/18 16:53 06/08/18 16:09 K-Phos Original PO 2,000 mg UNSCH PRN Administration SEE LABEL COMMENTS Pravastatin Sodium 40 mg 05/30/18 09:00 06/20/18 10:12 Pravachol PO Not Given DAILY [facility] Prednisone 10 mg 06/18/18 21:00 06/19/18 08:44 Deltasone PO 06/24/18 23:59 10 mg BID [facility] Administration Senna/Docusate Sodium 1 tab 05/29/18 21:00 06/20/18 10:12 Kate-Colace PO Not Given BID [facility] Sodium Chloride 2 ml 05/29/18 15:36 06/13/18 09:31 Ns Flush IV.FLUSH 2 ml PRN PRN Administration FLUSH AFTER USING IV ACCESS Sodium Chloride 2 ml 05/29/18 21:00 06/20/18 10:12 Ns Flush IV.FLUSH 2 ml BID [facility] Administration Sodium Chloride 2 gm 06/10/18 21:00 06/20/18 10:12 Sodium Chloride PO Not Given BID [facility] Objective Remarks: GENERAL: extubated, chronically ill, unable to respond, well-developed patient. SKIN: Warm and dry. Two point restraint, sitting up. HEAD: Normocephalic. EYES: No scleral icterus. No injection or drainage. NECK: Supple, trachea midline. No JVD or lymphadenopathy. LYMPHATIC: No adenopathy. CARDIOVASCULAR: Regular rate and rhythm without murmurs. RESPIRATORY: Breath sounds equal bilaterally. No accessory muscle use. GASTROINTESTINAL: Abdomen soft, non-tender, nondistended. EXTREMITIES: No cyanosis, or edema. MUSCULOSKELETAL: Adequate muscle tone. Assessment/Plan - Plan 78-year-old woman who appears to have metastatic disease as CT of the chest shows 1.6 x 1.1 cm spiculated right upper lobe lung nodule concerning for metastatic disease or primary lung malignancy. 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 Called to answer his questions, there is no chemotherapy to offer for the low grade astrocytoma. Spelled out the name of the brain lesion for him, ASTROCYTOMA, as well as my name who is speaking to him. Advised him he could consult the pathology report I gave him, the name of the lesion is in line item #2. Reports that he and his son talked on Monday with Dr. Palacios and they agreed to have radiation. Advised him to discuss with Dr. Clemons, the radiation oncologist, his recommendations regarding the matter of XRT. He was waiting for a call back to discuss w/ Dr. Clemons. His questions were answered to his satisfaction. Noted plan to defer lung biopsy pending pt more stable. Will be available as needed.
[2018-06-20] MEDS: Labetalol HCl Inj 20 MG/4 ML Vial IV.PUSH PRN (18:22)
--- NOTE | 2018-06-20 19:44 | P.PN ---
Subjective Interval history: She is awake and on oxygen at 4 L. Was up in a chair earlier. Has some cough and aspirates. Will need PEG feedings. Physical Exam Vital signs: Vital Signs 06/19/18 20:00 06/19/18 20:04 06/19/18 20:06 Temperature Pulse Rate 117 H 116 H Respiratory Rate 18 19 Blood Pressure 136/59 L Pulse Oximetry 90 L 97 06/19/18 21:00 06/19/18 22:00 06/19/18 23:00 Temperature Pulse Rate 121 H 114 H 118 H Respiratory Rate 18 16 Blood Pressure 123/56 L 157/67 H 153/66 H Pulse Oximetry 89 L 92 L 96 06/20/18 00:00 06/20/18 01:00 06/20/18 02:00 Temperature 99.0 F Pulse Rate 115 H 101 H 106 H Respiratory Rate 18 Blood Pressure 154/65 H 161/70 H 149/65 H Pulse Oximetry 97 99 98 06/20/18 03:00 06/20/18 03:27 06/20/18 04:00 Temperature Pulse Rate 104 H 106 H 108 H Respiratory Rate 19 18 Blood Pressure 152/68 H 150/65 H Pulse Oximetry 97 06/20/18 05:00 06/20/18 06:00 06/20/18 07:00 Temperature 99.0 F Pulse Rate 108 H 107 H 88 Respiratory Rate 22 Blood Pressure 149/66 H 164/69 H Pulse Oximetry 93 L 96 99 06/20/18 07:05 06/20/18 08:00 06/20/18 08:05 Temperature 97.7 F Pulse Rate 89 83 83 Respiratory Rate Blood Pressure 159/71 H 131/63 Pulse Oximetry 99 100 100 06/20/18 09:00 06/20/18 09:05 06/20/18 10:00 Temperature Pulse Rate 95 H 98 H 86 Respiratory Rate 24 Blood Pressure 142/66 H Pulse Oximetry 98 97 99 06/20/18 10:05 06/20/18 10:29 06/20/18 10:38 Temperature Pulse Rate 86 102 H 99 H Respiratory Rate Blood Pressure 126/57 L 167/70 H 168/72 H Pulse Oximetry 100 97 100 06/20/18 10:46 06/20/18 11:00 06/20/18 11:22 Temperature Pulse Rate 96 H Respiratory Rate Blood Pressure 135/64 Pulse Oximetry 100 99 100 02/06/19 12:00 06/20/18 12:05 06/20/18 13:00 Temperature 98.0 F Pulse Rate 90 90 80 Respiratory Rate Blood Pressure 183/77 H Pulse Oximetry 100 100 100 06/20/18 13:05 06/20/18 14:00 06/20/18 14:05 Temperature Pulse Rate 79 87 87 Respiratory Rate Blood Pressure 134/60 154/74 H Pulse Oximetry 100 100 100 06/20/18 15:00 06/20/18 15:05 06/20/18 15:54 Temperature Pulse Rate 89 88 90 Respiratory Rate Blood Pressure 175/73 H 178/76 H Pulse Oximetry 100 100 100 06/20/18 16:00 06/20/18 16:05 06/20/18 16:30 Temperature 98.0 F Pulse Rate 91 H 90 92 H Respiratory Rate 20 Blood Pressure 166/72 H Pulse Oximetry 98 100 06/20/18 16:36 06/20/18 16:47 06/20/18 17:00 Temperature Pulse Rate 96 H 110 H Respiratory Rate Blood Pressure 160/74 H Pulse Oximetry 100 90 L 06/20/18 17:05 06/20/18 17:10 06/20/18 17:12 Temperature Pulse Rate 101 H 117 H 117 H Respiratory Rate Blood Pressure 224/109 H 236/106 H 226/103 H Pulse Oximetry 100 91 L 87 L 06/20/18 17:22 06/20/18 17:50 06/20/18 18:00 Temperature Pulse Rate 108 H 82 93 H Respiratory Rate Blood Pressure 163/72 H 136/59 L Pulse Oximetry 92 L 100 100 06/20/18 18:05 06/20/18 18:14 06/20/18 18:22 Temperature Pulse Rate 104 H 108 H 101 H Respiratory Rate Blood Pressure 225/91 H 227/100 H 199/81 H Pulse Oximetry 100 87 L 94 L 06/20/18 18:25 06/20/18 18:44 06/20/18 18:49 Temperature Pulse Rate 101 H 87 84 Respiratory Rate Blood Pressure 184/79 H 167/74 H 165/70 H Pulse Oximetry 94 L 92 L 100 Intake & Output 06/20/18 06/20/18 06/21/18 06:59 18:59 06:59 Intake Total 328 / 328 274 / 274 Output Total 1575 / 1575 675 / 675 Balance -1247 / -1247 -401 / -401 Weight 66 kg Intake: IV 328 / 328 274 / 274 Cerebyx Inj 200 MGPE In NS Inj 108 / 108 54 / 54 50 ML @ 216 mls/hr IV.SIG Q8HR [facility] Rx#:[id number] Vimpat Inj 50 MG In NS Inj 100 105 / 105 105 / 105 ML @ 105 mls/hr IV.SIG Q12H [facility] Rx#:[id number] Keppra Inj 1,500 MG In NS Inj 115 / 115 115 / 115 100 ML @ 400 mls/hr IV.SIG Q12H [facility] Rx#:[id number] Output: Urine Amount (Catheter) 1575 / 1575 675 / 675 Female External 1575 / 1575 675 / 675 Other: Date of Last Bowel Movement 06/19/18 06/19/18 # Bowel Movements 0 Narrative: GENERAL: Elderly averagely built white female is alert no distress SKIN: Warm and dry. HEAD: Atraumatic. Normocephalic. EYES: Pupils equal and round. No scleral icterus. No injection or drainage. ENT: No nasal bleeding or discharge. Mucous membranes pink and moist. NECK: Trachea midline. No JVD. CARDIOVASCULAR: Regular rate and rhythm. RESPIRATORY: Bilateral expiratory wheezes with occasional basilar crackle .breath sounds equal bilaterally. GASTROINTESTINAL: Abdomen soft, non-tender, nondistended. Hepatic and splenic margins not palpable. MUSCULOSKELETAL: Extremities without clubbing, cyanosis, or edema. No obvious deformities. NEUROLOGICAL: Responsive and appropriate and moves all extremities. 1+ reflexes and moving extremities, right side stronger PSYCHIATRIC: Appropriate mood and affect awake, alert, interacting, nodding appropriately - Urinary Catheter Management Female External Cath placed during this visit: no Reason for continuing: Not indwelling catheter Indwelling Urethral Catheter Cath placed during this visit: yes, but has since been removed by the nurse Reason for continuing: Decision to DC catheter Insertion date: 06/05/18 Insertion time: 08:30 Removal date: 06/16/18 Removal time: 21:51 Results - Labs CBC & Chem 7: 06/20/18 04:53 06/20/18 04:53 Laboratory Results - last 24 hr 06/20/18 06/20/18 04:53 04:53 WBC 14.2 H RBC 3.06 L Hgb 10.1 L Hct 30.3 L MCV 99.0 MCH 32.8 MCHC 33.1 RDW 14.5 Plt Count 455 H MPV 8.4 Hematology Comments Sodium 142 Potassium 4.0 Chloride 104 Carbon Dioxide 29.4 Anion Gap 9 BUN 13 Creatinine 0.32 L Estimated GFR Greater than 89 Random Glucose 109 H Calcium 8.8 D Phosphorus 4.3 Magnesium 2.5 Assessment and Plan - Assessment (1) COPD (chronic obstructive pulmonary disease) Code(s): J44.9 - Chronic obstructive pulmonary disease, unspecified Status: Acute (2) Right upper lobe pulmonary nodule Code(s): R91.1 - Solitary pulmonary nodule Status: Acute (3) Intraventricular hemorrhage, nontraumatic Code(s): I61.5 - Nontraumatic intracerebral hemorrhage, intraventricular Status: Acute (4) Hypertensive emergency Code(s): I16.1 - Hypertensive emergency Status: Acute (5) Metabolic encephalopathy Code(s): G93.41 - Metabolic encephalopathy Status: Acute (6) Altered mental status Code(s): R41.82 - Altered mental status, unspecified Status: Acute (7) History of peripheral arterial disease Code(s): Z86.79 - Personal history of other diseases of the circulatory system Status: Chronic (8) History of hypertension Code(s): Z86.79 - Personal history of other diseases of the circulatory system Status: Chronic (9) Cessation of tobacco use in previous 12 months Code(s): Z87.891 - Personal history of nicotine dependence Status: Chronic - Plan 1 O2 nasal cannula 4 L and wean 2. Continue DuoNeb nebs 4 times daily. 3. CBC BMP in a.m. 4. Workup for lung mass when clinically stable 5. Continue antibiotics as ordered 6 Symbicort 160 about 4.5 mcg 1 puff twice daily 7. Physical therapy for activity 8. Continue antibiotics as ordered 9. Tube feedings at 50 cc/h Jevity 10. Continue prednisone 10 mg twice daily 11. BiPAP 12/5 centimeters 30% FiO2 if she desaturates (6) Altered mental status Qualifiers: Altered mental status type: unspecified Qualified Code(s): R41.82 - Altered mental status, unspecified
[2018-06-21] MEDS: Artificial Tears Opth Drops 15 ML Bottle EACH EYE SCH ×3 (04:51→22:49)
[2018-06-21] MEDS: Labetalol HCl Inj 20 MG/4 ML Vial IV.PUSH PRN (04:52)
[2018-06-21] MEDS: Lacosamide Inj 50 MG in Sodium Chlor 0.9% Inj 100 ML IV.SIG SCH ×2 (04:56→17:09)
[2018-06-21 05:15] LABS: ABG Base Excess 6.3 mmol/L (-2-2); ABG PCO2 46 mmHg (38-42); ABG PO2 144 mmHg (61-120)
[2018-06-21 05:36] LABS: Hematocrit 30.2 % (35.0-46.0); Hemoglobin 10.1 gm/dL (11.6-15.3); Mean Corpuscular HGB Conc 33.5 % (32.0-36.0); Mean Corpuscular Hemoglobin 33.6 pg (27.0-34.0); Mean Corpuscular Volume 100.2 fL (80.0-100.0); Mean Platelet Volume 7.9 fL (7.0-11.0); Platelet Count 444 th/mm3 (150-450); Red Blood Count 3.01 mil/mm3 (4.00-5.30); Red Cell Distribution Width 14.5 % (11.6-17.2); White Blood Count 14.6 th/mm3 (4.0-11.0)
[2018-06-21 05:48] LABS: Anion Gap 7 meq/L (5-15); Blood Urea Nitrogen 12 mg/dL (7-18); Calcium 8.8 mg/dL (8.5-10.1); Carbon Dioxide 29.6 meq/L (21.0-32.0); Chloride 102 meq/L (98-107); Glomerular Filtration Rate Greater Than 89 mL/min (>89); Glucose,Random 98 mg/dL (74-106); Magnesium 2.2 mg/dL (1.5-2.5); Phosphorus 3.6 mg/dL (2.5-4.9); Sodium 139 meq/L (136-145)
[2018-06-21] MEDS: Fosphenytoin Inj 200 MGPE in Sodium Chlor 0.9% Inj 50 ML IV.SIG SCH ×3 (05:55→23:43)
[2018-06-21] MEDS: Metoprolol Inj 5 MG/5 ML Vial IV.PUSH SCH ×3 (05:55→17:09)
[2018-06-21] MEDS: amLODIPine 5 MG Tablet PO SCH (09:28)
[2018-06-21] MEDS: Pantoprazole Inj 40 MG Vial IV.PUSH SCH (09:28)
[2018-06-21] MEDS: Lisinopril 20 MG Tablet PO SCH (09:29)
[2018-06-21] MEDS: Enoxaparin Inj 40 MG/0.4 ML Syringe SQ SCH (09:29)
[2018-06-21] MEDS: Senna/Docusate Sodium 8.6/50 MG Tablet PO SCH ×2 (09:29→22:49)
[2018-06-21] MEDS: Sodium Chloride 1 GM Tablet PO SCH ×2 (09:29→22:50)
[2018-06-21] MEDS: Budesonide-Formoterol 160/4.5 MCG 6 GM Inhaler INH SCH ×2 (09:30→22:51)
--- NOTE | 2018-06-21 11:21 | P.PNNS ---
Subjective Interval history: no significant neuro changes overnight <Samanta Banda - Last Filed: 06/21/18 11:15> Physical Exam Vital signs: Vital Signs 06/20/18 11:22 06/20/18 12:00 06/20/18 12:05 Temperature 98.0 F Pulse Rate 96 H 90 90 Respiratory Rate Blood Pressure 135/64 183/77 H Pulse Oximetry 100 100 100 06/20/18 13:00 06/20/18 13:05 06/20/18 14:00 Temperature Pulse Rate 80 79 87 Respiratory Rate Blood Pressure 134/60 Pulse Oximetry 100 100 100 06/20/18 14:05 06/20/18 15:00 06/20/18 15:05 Temperature Pulse Rate 87 89 88 Respiratory Rate Blood Pressure 154/74 H 175/73 H Pulse Oximetry 100 100 100 06/20/18 15:54 06/20/18 16:00 06/20/18 16:05 Temperature 98.0 F Pulse Rate 90 91 H 90 Respiratory Rate Blood Pressure 178/76 H 166/72 H Pulse Oximetry 100 98 100 06/20/18 16:30 06/20/18 16:36 06/20/18 16:47 Temperature Pulse Rate 92 H 96 H Respiratory Rate 20 Blood Pressure 160/74 H Pulse Oximetry 100 06/20/18 17:00 06/20/18 17:05 06/20/18 17:10 Temperature Pulse Rate 110 H 101 H 117 H Respiratory Rate Blood Pressure 224/109 H 236/106 H Pulse Oximetry 90 L 100 91 L 06/20/18 17:12 06/20/18 17:22 06/20/18 17:50 Temperature Pulse Rate 117 H 108 H 82 Respiratory Rate Blood Pressure 226/103 H 163/72 H 136/59 L Pulse Oximetry 87 L 92 L 100 06/20/18 18:00 06/20/18 18:05 06/20/18 18:14 Temperature Pulse Rate 93 H 104 H 108 H Respiratory Rate Blood Pressure 225/91 H 227/100 H Pulse Oximetry 100 100 87 L 06/20/18 18:22 06/20/18 18:25 06/20/18 18:44 Temperature Pulse Rate 101 H 101 H 87 Respiratory Rate Blood Pressure 199/81 H 184/79 H 167/74 H Pulse Oximetry 94 L 94 L 92 L 06/20/18 18:49 06/20/18 19:00 02/06/19 20:00 Temperature 97.4 F L Pulse Rate 84 80 94 H Respiratory Rate 18 16 Blood Pressure 165/70 H 151/57 H 157/60 H Pulse Oximetry 100 98 100 06/20/18 20:45 06/20/18 21:00 06/20/18 22:00 Temperature Pulse Rate 85 87 96 H Respiratory Rate 24 18 16 Blood Pressure 158/62 H 156/67 H Pulse Oximetry 100 100 100 06/20/18 23:00 06/21/18 00:00 06/21/18 01:00 Temperature 97.8 F Pulse Rate 93 H 90 84 Respiratory Rate 16 20 16 Blood Pressure 167/70 H 186/78 H 164/78 H Pulse Oximetry 98 99 100 06/21/18 02:00 06/21/18 03:00 06/21/18 04:00 Temperature Pulse Rate 90 90 89 Respiratory Rate 16 16 16 Blood Pressure 175/79 H 175/77 H 172/74 H Pulse Oximetry 99 100 100 06/21/18 04:55 06/21/18 05:00 06/21/18 05:30 Temperature Pulse Rate 92 H 90 81 Respiratory Rate 18 16 16 Blood Pressure 183/81 H 167/72 H Pulse Oximetry 100 100 06/21/18 06:00 06/21/18 06:57 06/21/18 07:00 Temperature Pulse Rate 81 79 80 Respiratory Rate Blood Pressure 149/70 H 165/69 H Pulse Oximetry 95 100 100 06/21/18 07:27 06/21/18 07:57 06/21/18 08:00 Temperature 98.7 F Pulse Rate 80 80 81 Respiratory Rate Blood Pressure 170/70 H 174/70 H Pulse Oximetry 100 100 100 06/21/18 08:10 06/21/18 08:27 06/21/18 08:57 Temperature Pulse Rate 81 78 77 Respiratory Rate 17 Blood Pressure 152/67 H 164/70 H Pulse Oximetry 99 100 100 06/21/18 09:00 06/21/18 09:27 06/21/18 09:57 Temperature Pulse Rate 77 90 92 H Respiratory Rate Blood Pressure 164/70 H 155/67 H Pulse Oximetry 100 97 93 L Intake & Output 06/20/18 06/21/18 06/21/18 18:59 06:59 18:59 Intake Total 274 / 274 274 / 274 54 / 54 Output Total 675 / 675 900 / 900 Balance -401 / -401 -626 / -626 54 / 54 Weight 62.2 kg Intake: IV 274 / 274 274 / 274 54 / 54 Cerebyx Inj 200 MGPE In NS Inj 54 / 54 54 / 54 54 / 54 50 ML @ 216 mls/hr IV.SIG Q8HR [facility] Rx#:[id number] Vimpat Inj 50 MG In NS Inj 100 105 / 105 105 / 105 ML @ 105 mls/hr IV.SIG Q12H [facility] Rx#:[id number] Keppra Inj 1,500 MG In NS Inj 115 / 115 115 / 115 100 ML @ 400 mls/hr IV.SIG Q12H [facility] Rx#:[id number] Output: Urine 900 / 900 Urine Amount (Catheter) 675 / 675 Female External 675 / 675 Other: Date of Last Bowel Movement 06/19/18 06/19/18 06/19/18 # Bowel Movements 0 Narrative: awake, alert reportedly oriented x 1 moving extremities, right side stronger - Urinary Catheter Management Female External Cath placed during this visit: no Reason for continuing: Not indwelling catheter Indwelling Urethral Catheter Cath placed during this visit: yes, but has since been removed by the nurse Reason for continuing: Decision to DC catheter Insertion date: 06/05/18 Insertion time: 08:30 Removal date: 06/16/18 Removal time: 21:51 <Samanta Banda - Last Filed: 06/21/18 11:15> Vital signs: Vital Signs 06/24/18 15:39 06/24/18 20:19 06/24/18 23:13 Temperature 97.6 F 99.1 F Pulse Rate 89 106 H Respiratory Rate 18 18 Blood Pressure 122/60 119/55 L Pulse Oximetry 97 96 96 06/25/18 00:30 06/25/18 05:01 06/25/18 07:33 Temperature 98.2 F 98.3 F 98.1 F Pulse Rate 83 86 82 Respiratory Rate 18 18 18 Blood Pressure 121/58 L 143/67 H 130/61 Pulse Oximetry 98 95 98 06/25/18 11:37 Temperature 98.4 F Pulse Rate 82 Respiratory Rate 18 Blood Pressure 142/65 H Pulse Oximetry 94 L Intake & Output 06/24/18 06/25/18 06/25/18 18:59 06:59 18:59 Intake Total 994 / 994 169 / 169 274 / 274 Output Total 1300 / 1300 425 / 425 Balance -306 / -306 -256 / -256 274 / 274 Weight 60.1 kg Intake: IV 274 / 274 169 / 169 274 / 274 Cerebyx Inj 200 MGPE In NS Inj 54 / 54 54 / 54 54 / 54 50 ML @ 216 mls/hr IV.SIG Q8HR [facility] Rx#:[id number] Vimpat Inj 50 MG In NS Inj 100 105 / 105 105 / 105 ML @ 105 mls/hr IV.SIG Q12H [facility] Rx#:[id number] Keppra Inj 1,500 MG In NS Inj 115 / 115 115 / 115 115 / 115 100 ML @ 400 mls/hr IV.SIG Q12H [facility] Rx#:[id number] Oral 720 / 720 Output: Urine 1300 / 1300 425 / 425 Other: Date of Last Bowel Movement 06/19/18 06/19/18 06/19/18 - Urinary Catheter Management Female External Cath placed during this visit: no Indwelling Urethral Catheter Cath placed during this visit: no <Duke Palacios - Last Filed: 06/25/18 14:46> Assessment and Plan - Plan 78 yo female with vague constellation of symptoms GCS-[address] shows 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 hemorrhagic mass Will follow with you 05/30/18: cont neuro checks in ICU Dr. 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 at midnight on Monday night into Monday Minimize sedating meds, etc. 06/03/18: Appears to be a bit more encephalopathic today, possible contribution of hospital delirium versus her mild hydrocephalus, though favor delirium since her level of alertness remains stable Dr. 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 at midnight tonight Continue to minimize sedating meds, etc. 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 Palacios 06/06/18: POD #1. pt had seizure last night requiring intubation. She has been started on Keppra for seizures. On exam she opens eyes and follows commands. Postoperative MRI Brain w/wo contrast has been ordered and pending. Obtain EEG to assess seizures. Continue ventriculostomy draining, add ICP monitoring. Start sq lovenox for dvt prophylaxis. Will follow. 06/07/18: POD #2. patient neurologically stable, opens eyes and follows commands. Postoperative MRI Brain reviewed by neurosurgery team. Spot EEG reports no ongoing seizures, with high amplitude sharp waves on left?breach rhythm. Critical care plans on extubation today. Continue ventriculostomy draining at 10 mmHg. Final pathology pending. Neurology following for seizure management. Will follow. 06/08/18: POD #3. patient neurologically stable, opens eyes and follows commands. Ventriculostomy draining well with controlled ICPs, will continue at 10mmHg. Pathology still pending. cont seizure management per Neurology. dw critical care. will follow. 06/09/2018 POD#4 Remains Neurologically stable, follows commands Stop sedation wean ventilator to CPAP 5 x 12 and FiO2 30% Continue DuoNeb nebs 4 times daily. Check respiratory parameters and consider extubation Agree with Symbicort 160 about 4.5 mcg 1 puff twice daily and Solu-Medrol 40 mg IV twice daily Continue EVD Would maintain SBP 140-160 to improve CPP. 06/10/2018 POD#5 Seizure yesterday, and last night, have increased Cerebyx and Keppra D/C'ed Barbs would prefer to maintain on 2 agents and high therapeutic levels of Cerebyx, usually best with brain tumors Free Dilantin levels not easily obtainable here. Lets keep level around 20 with standard level remains Neurologically stable wean ventilator to CPAP 5 x 12 and FiO2 30% and if OK, may extubate from Neurosurgical standpoint. 06/11/18 POD #6 seizures controlled overnight, will continue Cerebyx 200 tid and Keppra 1500 bid. Dilantin levels 17.6 today continue critical care - vent weaning - CPAP trials cont EVD draining at 5 mmHg final pathology still pending will follow 06/12/18 POD #7 pt failed extubation yesterday, reintubated- critical care managing repeat EEG 06/11/18 abnormal with sharp activities left hemisphere dilantin levels 18.8 this morning cont current anticonvulsants, will repeat EEG today obtained follow up CT Brain this morning which was reviewed by Dr. Perdue, EVD raised to 15 mmHg neuro exam today appears better final pathology still pending 06/13/18 POD #8 neurologically she is awake, alert EEG yesterday 06/12/18 - mod encephalopathy, no reports of any seizure activities cont current anticonvulsants, Dilantin levels trending up pending today, started on Zosyn for gram neg rods in sputum - per critical care cont EVD challenge, cont at 15 mmHg today, plan to clamp tomorrow will follow 06/14/18 POD #9 neurologically remains awake and alert Ventriculostomy drain clamped today, follow up CT Head tomorrow am will follow 06/15/18: POD #10 neuro exam with no changes, f/u CT Head post EVD clamping reviewed by neurosurgery team, ventriculostomy drain removed, using sterile technique single stitch place, patient tolerated procedure well cont critical care management seizures controlled, continue current anticonvulsants FINAL PATHOLOGY: LOW GRADE NEOPLASM, MOST CONSISTENT WITH PILOCYTIC ASTROCYTOMA ; 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 current management Discussed Path with patient's son 06/17/2018 POD#12 Neuro: no sig. changes seizures controlled aggressive CPAP trials today DPH level 5.5 Bolused with 500 mgs. cont. ICU 06/18/2018 no neurological changes continue CPAP trials, vent wean to extubate remove surgical mamadou Dr. 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 Snell - continue CPAP, ?extubate pulmonology also following 06/20/2018 patient extubated, neuro exam unchanged, stable reconsult medical oncology for reeval for poss chemotherapy for pilocytic astrocytoma radiation oncology eval pending will follow 06/21/2018 neuro exam relatively stable, she waxes and wanes- dw nursing she is stable from NRS standpoint for a step down unit, radiation oncology for work up outpatient and potential xrt appreciate oncology reeval: there is no chemotherapy to offer for the low grade astrocytoma <Samanta Banda - Last Filed: 06/21/18 11:15> - Attending Attestation Showing slow but continued improvement Tolerating extubation Has some degree of Exp. aphasia OOB to chair TID PT/OT Rehab I have personally seen and examined the patient, reviewed pertinent labs and imaging studies. I agree with Ms. Banda's ( Neurosurgery PA), assessment as well as plan of care. <Duke Palacios - Last Filed: 06/25/18 14:46>
[2018-06-21] MEDS: levETIRAcetam Inj 1,500 MG in Sodium Chlor 0.9% Inj 100 ML IV.SIG SCH ×2 (11:31→22:51)
--- NOTE | 2018-06-21 13:04 | P.PN ---
Subjective Interval history: Awake but lethargic. Has NG tube in place with feeds. On O2 nasal cannula at 4 L Does not answer any questions. at bedside Physical Exam Vital signs: Vital Signs 06/20/18 13:05 06/20/18 14:00 06/20/18 14:05 Temperature Pulse Rate 79 87 87 Respiratory Rate Blood Pressure 134/60 154/74 H Pulse Oximetry 100 100 100 06/20/18 15:00 06/20/18 15:05 06/20/18 15:54 Temperature Pulse Rate 89 88 90 Respiratory Rate Blood Pressure 175/73 H 178/76 H Pulse Oximetry 100 100 100 06/20/18 16:00 06/20/18 16:05 06/20/18 16:30 Temperature 98.0 F Pulse Rate 91 H 90 92 H Respiratory Rate 20 Blood Pressure 166/72 H Pulse Oximetry 98 100 06/20/18 16:36 06/20/18 16:47 06/20/18 17:00 Temperature Pulse Rate 96 H 110 H Respiratory Rate Blood Pressure 160/74 H Pulse Oximetry 100 90 L 06/20/18 17:05 06/20/18 17:10 06/20/18 17:12 Temperature Pulse Rate 101 H 117 H 117 H Respiratory Rate Blood Pressure 224/109 H 236/106 H 226/103 H Pulse Oximetry 100 91 L 87 L 06/20/18 17:22 06/20/18 17:50 06/20/18 18:00 Temperature Pulse Rate 108 H 82 93 H Respiratory Rate Blood Pressure 163/72 H 136/59 L Pulse Oximetry 92 L 100 100 06/20/18 18:05 06/20/18 18:14 06/20/18 18:22 Temperature Pulse Rate 104 H 108 H 101 H Respiratory Rate Blood Pressure 225/91 H 227/100 H 199/81 H Pulse Oximetry 100 87 L 94 L 06/20/18 18:25 06/20/18 18:44 06/20/18 18:49 Temperature Pulse Rate 101 H 87 84 Respiratory Rate Blood Pressure 184/79 H 167/74 H 165/70 H Pulse Oximetry 94 L 92 L 100 06/20/18 19:00 06/20/18 20:00 06/20/18 20:45 Temperature 97.4 F L Pulse Rate 80 94 H 85 Respiratory Rate 18 16 24 Blood Pressure 151/57 H 157/60 H Pulse Oximetry 98 100 100 06/20/18 21:00 06/20/18 22:00 06/20/18 23:00 Temperature Pulse Rate 87 96 H 93 H Respiratory Rate 18 16 16 Blood Pressure 158/62 H 156/67 H 167/70 H Pulse Oximetry 100 100 98 06/21/18 00:00 06/21/18 01:00 06/21/18 02:00 Temperature 97.8 F Pulse Rate 90 84 90 Respiratory Rate 20 16 16 Blood Pressure 186/78 H 164/78 H 175/79 H Pulse Oximetry 99 100 99 06/21/18 03:00 06/21/18 04:00 06/21/18 04:55 Temperature Pulse Rate 90 89 92 H Respiratory Rate 16 16 18 Blood Pressure 175/77 H 172/74 H Pulse Oximetry 100 100 06/21/18 05:00 06/21/18 05:30 06/21/18 06:00 Temperature Pulse Rate 90 81 81 Respiratory Rate 16 16 Blood Pressure 183/81 H 167/72 H 149/70 H Pulse Oximetry 100 100 95 06/21/18 06:57 06/21/18 07:00 06/21/18 07:27 Temperature Pulse Rate 79 80 80 Respiratory Rate Blood Pressure 165/69 H 170/70 H Pulse Oximetry 100 100 100 06/21/18 07:57 06/21/18 08:00 06/21/18 08:10 Temperature 98.7 F Pulse Rate 80 81 81 Respiratory Rate 17 Blood Pressure 174/70 H Pulse Oximetry 100 100 99 06/21/18 08:27 06/21/18 08:57 06/21/18 09:00 Temperature Pulse Rate 78 77 77 Respiratory Rate Blood Pressure 152/67 H 164/70 H Pulse Oximetry 100 100 100 06/21/18 09:27 06/21/18 09:57 06/21/18 10:00 Temperature Pulse Rate 90 92 H 95 H Respiratory Rate Blood Pressure 164/70 H 155/67 H Pulse Oximetry 97 93 L 98 06/21/18 10:27 06/21/18 10:57 06/21/18 11:00 Temperature Pulse Rate 84 80 81 Respiratory Rate Blood Pressure 127/60 98/49 L Pulse Oximetry 100 100 100 06/21/18 11:27 06/21/18 11:57 06/21/18 12:00 Temperature 98.2 F Pulse Rate 79 90 90 Respiratory Rate Blood Pressure 103/54 L 150/70 H Pulse Oximetry 100 100 100 Intake & Output 06/20/18 06/21/18 06/21/18 18:59 06:59 18:59 Intake Total 274 / 274 274 / 274 169 / 169 Output Total 675 / 675 900 / 900 Balance -401 / -401 -626 / -626 169 / 169 Weight 62.2 kg Intake: IV 274 / 274 274 / 274 169 / 169 Cerebyx Inj 200 MGPE In NS Inj 54 / 54 54 / 54 54 / 54 50 ML @ 216 mls/hr IV.SIG Q8HR [facility] Rx#:[id number] Vimpat Inj 50 MG In NS Inj 100 105 / 105 105 / 105 ML @ 105 mls/hr IV.SIG Q12H [facility] Rx#:[id number] Keppra Inj 1,500 MG In NS Inj 115 / 115 115 / 115 115 / 115 100 ML @ 400 mls/hr IV.SIG Q12H [facility]LEX[facility] Rx#:[id number] Output: Urine 900 / 900 Urine Amount (Catheter) 675 / 675 Female External 675 / 675 Other: Date of Last Bowel Movement 06/19/18 06/19/18 06/19/18 # Bowel Movements 0 Narrative: awake, alert reportedly oriented x 1 moving extremities, right side stronger GENERAL: Elderly white female averagely built SKIN: Warm and dry. HEAD: Atraumatic. Normocephalic. EYES: Pupils equal and round. No scleral icterus. No injection or drainage. ENT: No nasal bleeding or discharge. Mucous membranes pink and moist. NECK: Trachea midline. No JVD. CARDIOVASCULAR: Regular rate and rhythm. RESPIRATORY: No accessory muscle use. Scattered bilateral wheezes breath sounds diminished at the bases. GASTROINTESTINAL: Abdomen soft, non-tender, nondistended. Hepatic and splenic margins not palpable. MUSCULOSKELETAL: Extremities without clubbing, cyanosis, or edema. No obvious deformities. NEUROLOGICAL: Awake and alert. Weak left side. Does not follow commands PSYCHIATRIC: Cannot assess - Urinary Catheter Management Female External Cath placed during this visit: no Reason for continuing: Not indwelling catheter Indwelling Urethral Catheter Cath placed during this visit: yes, but has since been removed by the nurse Reason for continuing: Decision to DC catheter Insertion date: 06/05/18 Insertion time: 08:30 Removal date: 06/16/18 Removal time: 21:51 Results - Labs CBC & Chem 7: 06/21/18 04:55 06/21/18 04:55 Laboratory Results - last 24 hr 06/21/18 06/21/18 06/21/18 04:55 04:55 05:00 WBC 14.6 H RBC 3.01 L Hgb 10.1 L Hct 30.2 L MCV 100.2 H MCH 33.6 MCHC 33.5 RDW 14.5 Plt Count 444 MPV 7.9 Puncture Site Right radial Patient Temperature 98.6 O2 Saturation 96 ABG pH 7.44 H ABG pCO2 46 H ABG pO2 144 H ABG HCO3 31 H ABG O2 Content 12.7 ABG Base Excess 6.3 H ABG Methemoglobin 1.6 [place] Test Present Hemoglobin 9.2 L Carboxyhemoglobin 0.9 O2 Delivery Device Nasal cannula Liter Flow 4.00 Critical Value No Sodium 139 Potassium 4.0 Chloride 102 Carbon Dioxide 29.6 Anion Gap 7 BUN 12 Creatinine 0.26 L Estimated GFR Greater than 89 Random Glucose 98 Calcium 8.8 Phosphorus 3.6 Magnesium 2.2 Assessment and Plan - Assessment (1) COPD (chronic obstructive pulmonary disease) Code(s): J44.9 - Chronic obstructive pulmonary disease, unspecified Status: Acute (2) Right upper lobe pulmonary nodule Code(s): R91.1 - Solitary pulmonary nodule Status: Acute (3) Intraventricular hemorrhage, nontraumatic Code(s): I61.5 - Nontraumatic intracerebral hemorrhage, intraventricular Status: Acute (4) Hypertensive emergency Code(s): I16.1 - Hypertensive emergency Status: Acute (5) Metabolic encephalopathy Code(s): G93.41 - Metabolic encephalopathy Status: Acute (6) Altered mental status Code(s): R41.82 - Altered mental status, unspecified Status: Acute (7) History of peripheral arterial disease Code(s): Z86.79 - Personal history of other diseases of the circulatory system Status: Chronic (8) History of hypertension Code(s): Z86.79 - Personal history of other diseases of the circulatory system Status: Chronic (9) Cessation of tobacco use in previous 12 months Code(s): Z87.891 - Personal history of nicotine dependence Status: Chronic - Plan 1 continue O2 nasal cannula 4 L and wean 2. DuoNeb nebs 4 times daily. 3. Chest x-ray CBC BMP in a.m. 4. Workup for lung mass when clinically stable 5. Continue antibiotics as ordered 6 Symbicort 160 about 4.5 mcg 1 puff twice daily 7. Physical therapy for activity 8. Continue antibiotics as ordered 9. Tube feedings at 50 cc/h Jevity 10. Tape prednisone 15 mg daily 11. BiPAP 12/5 centimeters 30% FiO2 if she desaturates (6) Altered mental status Qualifiers: Altered mental status type: unspecified Qualified Code(s): R41.82 - Altered mental status, unspecified
--- NOTE | 2018-06-21 13:34 | P.PNCC ---
Subjective Subjective Remarks/Hospital Course: Note for 06/20/18: Patient is a 78-year-old female with past medical history significant for hypertension, peripheral arterial disease, history of vascular intervention/ stenting, arthritis who presented to the [facility] with mostly nonspecific complaints of memory loss and hallucinations for 1 week and worsening tremors of the right arm. Further workup in the emergency department showed subacute intraventricular hemorrhage into the left lateral ventricle and a focal thrombus that may be obstructing foramina of [place]. There was enlargement of the left lateral ventricle compared to the prior MRI. Also trace blood in the occipital horn of left lateral ventricle. With evidence of intraventricular hemorrhage patient was transferred emergently to [facility] for neurosurgery consult. I evaluated the patient after arrival to the ICU. Patient is profoundly hypertensive systolic blood pressure 190-200. IV labetalol 20 mg IV push given followed by Cardene infusion started. On exam patient did not appear to be in distress. No definite focal deficit however patient is oriented only to person. Reviewed CT scan with neurosurgery Dr. Palacios. On his review CT shows 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 hemorrhagic mass at foramen of Bell with asymmetric left sided ventricular dilatation. Stat MRI of the brain with and without contrast ordered. Started on Cardene infusion with target systolic blood pressure less than 140 05/30/18: MRI brain showed 2.3 x 1.7 cm mass within the body of the left lateral ventricle measuring 2.3 x 1.7 cm left lateral ventricle is prominent may be related to production of CSF from this mass. 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 Additional mass in the cerebellopontine angle on the left compressing upon the brainstem measuring 1.8 x 1.4 cm. Slightly more agitated and confused today. Partly secondary to mass partly could be alcohol withdrawal. Placed on as needed Haldol 05/31: Patient remains sedated received Ativan a few hours before. Currently for that reason Precedex is being held. Wakes up follows some commands. Oriented to person only. Plan for craniotomy and resection of intraventricular mass scheduled tentatively for Monday. Ct chest: 1.6 x 1.1 cm spiculated RUL nodule concerning for metastasis or primary lung malignancy. 1.1 x 1.4 cm soft tissue density inferior lateral margin of the right breast implant ?focal disruption vs breast mass. CT abdomen pelvis: 1.3 cm left adrenal mass concerning for metastatic disease given findings of brain and lung mass. 1.6 cm indeterminate low-density lesion in the posterior right lobe of the liver with numerous additional subcentimeter hypodense lesions which are too small to fully characterize. Metastatic disease cannot be entirely excluded, possibly cysts. 06/01: Remains confused slightly agitated remains on Precedex. CT angiogram yesterday of the brain showed previously demonstrated intraventricular mass however no cerebellopontine angle mass. WBC count elevated to 19.1 no fever. Will check UA-previously ordered UA had not been done. Check blood cultures, chest x-ray is clear. Continue to hold Plavix 06/02: Plan is for resection of brain mass on Monday. Patient continues breathing comfortably. 06/03: Ready for OR. Labs are in order. INR 1.1. Plavix effect noted on . 06/04: Coagulation profile normal. Patient scheduled for surgery tomorrow. No new complaints. 06/05: Patient seen in PACU shortly after surgery. Brief generalized seizure terminated with Ativan 1 mg. Patient loaded with Cerebyx 1 g. Neurologic exam nonfocal at this time. Pupils pinpoint. Required reintubation due to somnolence. 06/06: T-max 100.8. Currently afebrile. Patient arousable on the ventilator. Hypotensive requiring 1 L bolus normal saline. MRI brain pending. EEG ongoing. 06/07: T-max 100.6. Currently 99.8. MRI brain showed postsurgical change with no increased hemorrhage noted. Replacing potassium, phosphorus and magnesium currently. Dexmedetomidine drip is currently off. Noted some breech with EEG yesterday. Dilantin level therapeutic. 06/08: All sedation off for about 24 hours. She will open her eyes to stimulation. Withdraws 4 limbs to stimulation but right upper extremity appears weaker. Dilantin level is therapeutic and no more seizures. We will attempt to extubate when she can control her airway. Presently too somnolent. 06/09: Possibly slightly more arousable than when I saw her for 8 hours ago. Will reflexively squeeze left upper extremity. Not currently following commands with right upper extremity for me. Tube feeding today increase antihypertensives to wean off clevidipine drip. 06/10: Currently on fosphenytoin 200 mg twice daily and levetiracetam 1500 mg twice daily. Failed CPAP trials x2 today secondary to apnea. Will reattempt this afternoon. Arousable and opens eyes. Spontaneous moves left upper extremity but not following commands. We check EEG today. 06/11: Resting in bed. No seizure activity more awake and following commands. Will attempt extubation today at 1700 hrs. 06/12: Resting in bed. More arousable and interactive today. No seizure activity noted. Failed extubation after 1 hour attempt yesterday. We will CPAP again today and reattempt likely tomorrow. Started on piperacillin/ tazobactam for gram-negative rupinder sputum. 06/13: Afebrile. Resting in bed in no acute distress. Failed CPAP trial for 2 hours today. Continues with copious thick green sputum. Enterobacter cloacae/ strep noted 06/14: Resting comfortably in bed in no acute distress. Attempting CPAP trial again today. Diagnosis astrocytoma noted. Oncology has discussed with family. 06/15: EEG stable without seizures. more awake, following commands. sputum tenacious and copious. too much to allow successful extubation. Subjective 06/16: still failing CPAP for secretions. will perform therapeutic bronch to assess for mucous plugging disease. dilantin level adequate based on protein levels. no seizure activity. awake following commands. 3: failed CPAP again today- became apneic. secretions are no longer a significant problem. remains awake and follows commands. long talk with her and son at bedside: explained again in detail about her oncologic diagnosis as well as her prognosis on the vent, which is quite good, except she is significantly deconditioned. 06/18: General level of consciousness remains the same. No more seizures and Dilantin level therapeutic in the context of low albumin. No more problems with secretions. Continue weaning trials. Continue nutritional supplementation. 06/19: She is more comfortable on spontaneous breathing trials today. No new seizure activity. Appears more alert, follows commands. 06/20: Failed swallow eval today, continue with tube feedings. We will need to replace nasogastric tube. No seizure activity. Tolerating extubation. Objective Vital Signs / I&O: Vital Signs 06/20/18 14:00 06/20/18 14:05 06/20/18 15:00 Temperature Pulse Rate 87 87 89 Respiratory Rate Blood Pressure 154/74 H Pulse Oximetry 100 100 100 06/20/18 15:05 06/20/18 15:54 06/20/18 16:00 Temperature 98.0 F Pulse Rate 88 90 91 H Respiratory Rate Blood Pressure 175/73 H 178/76 H Pulse Oximetry 100 100 98 06/20/18 16:05 06/20/18 16:30 06/20/18 16:36 Temperature Pulse Rate 90 92 H 96 H Respiratory Rate 20 Blood Pressure 166/72 H Pulse Oximetry 100 100 06/20/18 16:47 06/20/18 17:00 06/20/18 17:05 Temperature Pulse Rate 110 H 101 H Respiratory Rate Blood Pressure 160/74 H 224/109 H Pulse Oximetry 90 L 100 06/20/18 17:10 06/20/18 17:12 06/20/18 17:22 Temperature Pulse Rate 117 H 117 H 108 H Respiratory Rate Blood Pressure 236/106 H 226/103 H 163/72 H Pulse Oximetry 91 L 87 L 92 L 06/20/18 17:50 06/20/18 18:00 06/20/18 18:05 Temperature Pulse Rate 82 93 H 104 H Respiratory Rate Blood Pressure 136/59 L 225/91 H Pulse Oximetry 100 100 100 06/20/18 18:14 06/20/18 18:22 06/20/18 18:25 Temperature Pulse Rate 108 H 101 H 101 H Respiratory Rate Blood Pressure 227/100 H 199/81 H 184/79 H Pulse Oximetry 87 L 94 L 94 L 06/20/18 18:44 06/20/18 18:49 06/20/18 19:00 Temperature 97.4 F L Pulse Rate 87 84 80 Respiratory Rate 18 Blood Pressure 167/74 H 165/70 H 151/57 H Pulse Oximetry 92 L 100 98 06/20/18 20:00 06/20/18 20:45 06/20/18 21:00 Temperature Pulse Rate 94 H 85 87 Respiratory Rate 16 24 18 Blood Pressure 157/60 H 158/62 H Pulse Oximetry 100 100 100 06/20/18 22:00 06/20/18 23:00 06/21/18 00:00 Temperature 97.8 F Pulse Rate 96 H 93 H 90 Respiratory Rate 16 16 20 Blood Pressure 156/67 H 167/70 H 186/78 H Pulse Oximetry 100 98 99 06/21/18 01:00 06/21/18 02:00 06/21/18 03:00 Temperature Pulse Rate 84 90 90 Respiratory Rate 16 16 16 Blood Pressure 164/78 H 175/79 H 175/77 H Pulse Oximetry 100 99 100 06/21/18 04:00 06/21/18 04:55 06/21/18 05:00 Temperature Pulse Rate 89 92 H 90 Respiratory Rate 16 18 16 Blood Pressure 172/74 H 183/81 H Pulse Oximetry 100 100 06/21/18 05:30 06/21/18 06:00 06/21/18 06:57 Temperature Pulse Rate 81 81 79 Respiratory Rate 16 Blood Pressure 167/72 H 149/70 H 165/69 H Pulse Oximetry 100 95 100 06/21/18 07:00 06/21/18 07:27 06/21/18 07:57 Temperature Pulse Rate 80 80 80 Respiratory Rate Blood Pressure 170/70 H 174/70 H Pulse Oximetry 100 100 100 06/21/18 08:00 06/21/18 08:10 06/21/18 08:27 Temperature 98.7 F Pulse Rate 81 81 78 Respiratory Rate 17 Blood Pressure 152/67 H Pulse Oximetry 100 99 100 06/21/18 08:57 06/21/18 09:00 06/21/18 09:27 Temperature Pulse Rate 77 77 90 Respiratory Rate Blood Pressure 164/70 H 164/70 H Pulse Oximetry 100 100 97 06/21/18 09:57 06/21/18 10:00 06/21/18 10:27 Temperature Pulse Rate 92 H 95 H 84 Respiratory Rate Blood Pressure 155/67 H 127/60 Pulse Oximetry 93 L 98 100 06/21/18 10:57 06/21/18 11:00 06/21/18 11:27 Temperature Pulse Rate 80 81 79 Respiratory Rate Blood Pressure 98/49 L 103/54 L Pulse Oximetry 100 100 100 06/21/18 11:57 06/21/18 12:00 Temperature 98.2 F Pulse Rate 90 90 Respiratory Rate Blood Pressure 150/70 H Pulse Oximetry 100 100 Intake & Output 06/20/18 06/21/18 06/21/18 18:59 06:59 18:59 Intake Total 274 / 274 274 / 274 169 / 169 Output Total 675 / 675 900 / 900 Balance -401 / -401 -626 / -626 169 / 169 Weight 62.2 kg Intake: IV 274 / 274 274 / 274 169 / 169 Cerebyx Inj 200 MGPE In NS Inj 54 / 54 54 / 54 54 / 54 50 ML @ 216 mls/hr IV.SIG Q8HR ALEXIS Rx#:[id number] Vimpat Inj 50 MG In NS Inj 100 105 / 105 105 / 105 ML @ 105 mls/hr IV.SIG Q12H ALEXIS Rx#:[id number] Keppra Inj 1,500 MG In NS Inj 115 / 115 115 / 115 115 / 115 100 ML @ 400 mls/hr IV.SIG Q12H ALEXIS Rx#:[id number] Output: Urine 900 / 900 Urine Amount (Catheter) 675 / 675 Female External 675 / 675 Other: Date of Last Bowel Movement 06/19/18 06/19/18 06/19/18 # Bowel Movements 0 Result Diagrams: 06/21/18 04:55 06/21/18 04:55 Objective Remarks: GENERAL: This is a 78-year-old female remains orotracheally intubated SKIN: Warm and dry. EYES: Pupils equal and round. About 2 mm bilaterally and reactive, no scleral icterus. No injection or drainage. ENT: No nasal bleeding or discharge. Mucous membranes pink and moist. NECK: Trachea midline. Orotracheal intubation CARDIOVASCULAR: Regular rate and rhythm. sinus. Normal S1-S2. No JVD. RESPIRATORY: Normal excursions on mechanical ventilation. Generally clear breath sounds, minimal secretions. GASTROINTESTINAL: Abdomen soft, non-tender, nondistended. No guarding, bowel sounds active. MUSCULOSKELETAL: Extremities with trace bilateral upper and lower extremity edema. Warm, well-perfused NEUROLOGICAL: Positive cough and gag. Pupils reactive. Alert on the ventilator and opens eyes to voice. Moves left upper, left lower and right lower extremity. Some movement right upper extremity. Duplicate below - unable to erase. GENERAL: SKIN: Warm and dry. HEAD: Atraumatic. Normocephalic. EYES: Pupils equal and round. No scleral icterus. No injection or drainage. ENT: No nasal bleeding or discharge. Mucous membranes pink and moist. NECK: Trachea midline. No JVD. CARDIOVASCULAR: Regular rate and rhythm. RESPIRATORY: No accessory muscle use. Clear to auscultation. Breath sounds equal bilaterally. GASTROINTESTINAL: Abdomen soft, non-tender, nondistended. Hepatic and splenic margins not palpable. MUSCULOSKELETAL: Extremities without clubbing, cyanosis, or edema. No obvious deformities. NEUROLOGICAL: Awake and alert. No obvious cranial nerve deficits. Motor grossly within normal limits. Five out of 5 muscle strength in the arms and legs. Normal speech. PSYCHIATRIC: Appropriate mood and affect; insight and judgment normal. Assessment and Plan - Problem List (1) Intraventricular hemorrhage, nontraumatic Code(s): I61.5 - Nontraumatic intracerebral hemorrhage, intraventricular Status: Acute (2) Hypertensive emergency Code(s): I16.1 - Hypertensive emergency Status: Acute (3) Metabolic encephalopathy Code(s): G93.41 - Metabolic encephalopathy Status: Acute (4) Altered mental status Code(s): R41.82 - Altered mental status, unspecified Status: Acute (5) History of peripheral arterial disease Code(s): Z86.79 - Personal history of other diseases of the circulatory system Status: Chronic (6) History of hypertension Code(s): Z86.79 - Personal history of other diseases of the circulatory system Status: Chronic (7) Cessation of tobacco use in previous 12 months Code(s): Z87.891 - Personal history of nicotine dependence Status: Chronic - Assessment and Plan Plan: NEURO/psych: 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 -Status post left craniotomy resection of tumor 06/0506/04/2018 (clopidogrel will be held for 7 days prior to surgery) -Oncology consult, also CT chest abdomen pelvis -right upper lobe mass with probable adrenal metastases cannot rule out liver metastases -Tight blood pressure control with nicardipine e and IV labetalol as needed, and PO meds, see below -Keep systolic blood pressure less than 150 -Supplement multivitamin thiamine given daily alcohol use -Watch closely for alcohol withdrawal -Mild alcohol withdrawal contributing to agitation -Use expected for agitation, Haldol as needed -EEG originally negative for seizures -Repeat EEG 06/06 field possible left frontal breakthrough. Loaded with fosphenytoin 1 g.. Start on 100 mg 3 times daily recheck level in a.m was 9.2 with free level around 17. Continue per neurology. -MRA 06/06 brain revealed left lateral ventricle resection, intervertebral hemorrhage slightly decreased. Small subdural hematoma. Postsurgical. Rightward shift 5 mm. Most recent EEG negative for acute seizure activity Currently on fosphenytoin 200 mg every 8 hours. Corrected for free Dilantin, level 15 On levetiracetam 1500 mg IV twice daily. Continue lacosamide 50 mg twice daily per neurosurgery request Neurosurgery managing antiepileptics. No obvious change in level of sedation from AEDs Quite alert today and gesturing with hands RESP: Acute hypoxic and hypercarbic respiratory failure- persistent Previous tobacco use Right upper lobe speak with a mass HCAP ventilator associated pneumonia -PRVC ventilation with ventilator bundle/head of bed at 30 degrees -Albuterol/ipratropium aerosols every 4 hours scheduled and as needed albuterol aerosols every 2 hours as needed -Pulmonology consulted for right upper lobe mass concerning for primary malignancy, with adrenal mass -Pulmonary Dr. Evans suggesting CT-guided biopsy and PET scan once clinically more stable -Reintubated and ISC after PACU 06/05. -Spontaneous breathing trials today again, attempt extubation when she can protect her airway. failed SBT again today for weakness. OOB to stretcher chair daily PT 7 days a week. Daily spontaneous breathing trial Extubated 06/20 and protects airway well. CV: Hypertensive emergency History of hypertension Peripheral arterial disease - IV labetalol as needed for systolic blood pressure less than 150 -Continue home enalapril 40 mg daily and amlodipine 5 mg daily increased to 10 mg daily, continue pravastatin 40 mg daily. metoprolol tartrate 50 mg twice daily -Continue holding clopidogrel until cleared by neurosurgery -Decrease platelet activity noted on 06/01 -INR, PT, PTT edwin. -Remains normotensive -Continue to hold antihypertensive drugs GI: Left adrenal mass 1.3 x 1.2 cm Colonic diverticulosis Right liver mass versus cyst Elevated LFTs -tube feeds, lansoprazole for GI prophylax. Docusate sodium/senna 1 tablet twice daily for bowel regimen -Continue tube feedings with vital 1.5 goal 50 cc an hour -Follow blood glucose closely -Continue with swallow evaluation, continue tube feeding for now : -Monitor renal function closely. ID: Enterobacter cloaca K/strep pneumonia Antibiotic treatment ended 06/18 HEME: Leukocytosis Normocytic anemia -Oncology. astrocytoma by pathology. - Dr. Kapadia. FEN/ENDO: -Electrolyte replacement per protocol PROPH: -Bilateral lower extremity SCDs. LINES: -Utilize peripheral IVs, central line if needed Overall impression: More alert and breathing with acceptable comfort. We will attempt extubation again today. Good response to diuretic. (4) Altered mental status Qualifiers: Altered mental status type: unspecified Qualified Code(s): R41.82 - Altered mental status, unspecified
--- NOTE | 2018-06-21 13:37 | P.PNCC ---
Subjective Subjective Remarks/Hospital Course: Patient is a 78-year-old female with past medical history significant for hypertension, peripheral arterial disease, history of vascular intervention/ stenting, arthritis who presented to the [facility] with mostly nonspecific complaints of memory loss and hallucinations for 1 week and worsening tremors of the right arm. Further workup in the emergency department showed subacute intraventricular hemorrhage into the left lateral ventricle and a focal thrombus that may be obstructing foramina of [place]. There was enlargement of the left lateral ventricle compared to the prior MRI. Also trace blood in the occipital horn of left lateral ventricle. With evidence of intraventricular hemorrhage patient was transferred emergently to [facility] for neurosurgery consult. I evaluated the patient after arrival to the ICU. Patient is profoundly hypertensive systolic blood pressure 190-200. IV labetalol 20 mg IV push given followed by Cardene infusion started. On exam patient did not appear to be in distress. No definite focal deficit however patient is oriented only to person. Reviewed CT scan with neurosurgery Dr. Palacios. On his review CT shows 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 hemorrhagic mass at foramen of [place] with asymmetric left sided ventricular dilatation. Stat MRI of the brain with and without contrast ordered. Started on Cardene infusion with target systolic blood pressure less than 140 05/30/18: MRI brain showed 2.3 x 1.7 cm mass within the body of the left lateral ventricle measuring 2.3 x 1.7 cm left lateral ventricle is prominent may be related to production of CSF from this mass. 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 Additional mass in the cerebellopontine angle on the left compressing upon the brainstem measuring 1.8 x 1.4 cm. Slightly more agitated and confused today. Partly secondary to mass partly could be alcohol withdrawal. Placed on as needed Haldol 05/31: Patient remains sedated received Ativan a few hours before. Currently for that reason Precedex is being held. Wakes up follows some commands. Oriented to person only. Plan for craniotomy and resection of intraventricular mass scheduled tentatively for Monday. Ct chest: 1.6 x 1.1 cm spiculated RUL nodule concerning for metastasis or primary lung malignancy. 1.1 x 1.4 cm soft tissue density inferior lateral margin of the right breast implant ?focal disruption vs breast mass. CT abdomen pelvis: 1.3 cm left adrenal mass concerning for metastatic disease given findings of brain and lung mass. 1.6 cm indeterminate low-density lesion in the posterior right lobe of the liver with numerous additional subcentimeter hypodense lesions which are too small to fully characterize. Metastatic disease cannot be entirely excluded, possibly cysts. 06/01: Remains confused slightly agitated remains on Precedex. CT angiogram yesterday of the brain showed previously demonstrated intraventricular mass however no cerebellopontine angle mass. WBC count elevated to 19.1 no fever. Will check UA-previously ordered UA had not been done. Check blood cultures, chest x-ray is clear. Continue to hold Plavix 06/02: Plan is for resection of brain mass on Monday. Patient continues breathing comfortably. 06/03: Ready for OR. Labs are in order. INR 1.1. Plavix effect noted on . 06/04: Coagulation profile normal. Patient scheduled for surgery tomorrow. No new complaints. 06/05: Patient seen in PACU shortly after surgery. Brief generalized seizure terminated with Ativan 1 mg. Patient loaded with Cerebyx 1 g. Neurologic exam nonfocal at this time. Pupils pinpoint. Required reintubation due to somnolence. 06/06: T-max 100.8. Currently afebrile. Patient arousable on the ventilator. Hypotensive requiring 1 L bolus normal saline. MRI brain pending. EEG ongoing. 06/07: T-max 100.6. Currently 99.8. MRI brain showed postsurgical change with no increased hemorrhage noted. Replacing potassium, phosphorus and magnesium currently. Dexmedetomidine drip is currently off. Noted some breech with EEG yesterday. Dilantin level therapeutic. 06/08: All sedation off for about 24 hours. She will open her eyes to stimulation. Withdraws 4 limbs to stimulation but right upper extremity appears weaker. Dilantin level is therapeutic and no more seizures. We will attempt to extubate when she can control her airway. Presently too somnolent. 06/09: Possibly slightly more arousable than when I saw her for 8 hours ago. Will reflexively squeeze left upper extremity. Not currently following commands with right upper extremity for me. Tube feeding today increase antihypertensives to wean off clevidipine drip. 06/10: Currently on fosphenytoin 200 mg twice daily and levetiracetam 1500 mg twice daily. Failed CPAP trials x2 today secondary to apnea. Will reattempt this afternoon. Arousable and opens eyes. Spontaneous moves left upper extremity but not following commands. We check EEG today. 06/11: Resting in bed. No seizure activity more awake and following commands. Will attempt extubation today at 1700 hrs. 06/12: Resting in bed. More arousable and interactive today. No seizure activity noted. Failed extubation after 1 hour attempt yesterday. We will CPAP again today and reattempt likely tomorrow. Started on piperacillin/ tazobactam for gram-negative rupinder sputum. 06/13: Afebrile. Resting in bed in no acute distress. Failed CPAP trial for 2 hours today. Continues with copious thick green sputum. Enterobacter cloacae/ strep noted 06/14: Resting comfortably in bed in no acute distress. Attempting CPAP trial again today. Diagnosis astrocytoma noted. Oncology has discussed with family. 06/15: EEG stable without seizures. more awake, following commands. sputum tenacious and copious. too much to allow successful extubation. Subjective 06/16: still failing CPAP for secretions. will perform therapeutic bronch to assess for mucous plugging disease. dilantin level adequate based on protein levels. no seizure activity. awake following commands. 3: failed CPAP again today- became apneic. secretions are no longer a significant problem. remains awake and follows commands. long talk with her and son at bedside: explained again in detail about her oncologic diagnosis as well as her prognosis on the vent, which is quite good, except she is significantly deconditioned. 06/18: General level of consciousness remains the same. No more seizures and Dilantin level therapeutic in the context of low albumin. No more problems with secretions. Continue weaning trials. Continue nutritional supplementation. 06/19: She is more comfortable on spontaneous breathing trials today. No new seizure activity. Appears more alert, follows commands. 06/20: Failed swallow eval today, continue with tube feedings. We will need to replace nasogastric tube. No seizure activity. Tolerating extubation. 06/21: She passed her speech evaluation and swallow today so we will hold off on placing the nasogastric tube for now. On both shifts of staff attempted last night and were unable to pass the tube so hopefully we can avoid having to pass the tube under fluoroscopy. I spoke at length to her today and gave him an update on her care plan. Objective Vital Signs / I&O: Vital Signs 06/20/18 14:00 06/20/18 14:05 06/20/18 15:00 Temperature Pulse Rate 87 87 89 Respiratory Rate Blood Pressure 154/74 H Pulse Oximetry 100 100 100 06/20/18 15:05 06/20/18 15:54 06/20/18 16:00 Temperature 98.0 F Pulse Rate 88 90 91 H Respiratory Rate Blood Pressure 175/73 H 178/76 H Pulse Oximetry 100 100 98 06/20/18 16:05 06/20/18 16:30 06/20/18 16:36 Temperature Pulse Rate 90 92 H 96 H Respiratory Rate 20 Blood Pressure 166/72 H Pulse Oximetry 100 100 06/20/18 16:47 06/20/18 17:00 06/20/18 17:05 Temperature Pulse Rate 110 H 101 H Respiratory Rate Blood Pressure 160/74 H 224/109 H Pulse Oximetry 90 L 100 06/20/18 17:10 06/20/18 17:12 06/20/18 17:22 Temperature Pulse Rate 117 H 117 H 108 H Respiratory Rate Blood Pressure 236/106 H 226/103 H 163/72 H Pulse Oximetry 91 L 87 L 92 L 06/20/18 17:50 06/20/18 18:00 06/20/18 18:05 Temperature Pulse Rate 82 93 H 104 H Respiratory Rate Blood Pressure 136/59 L 225/91 H Pulse Oximetry 100 100 100 06/20/18 18:14 06/20/18 18:22 06/20/18 18:25 Temperature Pulse Rate 108 H 101 H 101 H Respiratory Rate Blood Pressure 227/100 H 199/81 H 184/79 H Pulse Oximetry 87 L 94 L 94 L 06/20/18 18:44 06/20/18 18:49 06/20/18 19:00 Temperature 97.4 F L Pulse Rate 87 84 80 Respiratory Rate 18 Blood Pressure 167/74 H 165/70 H 151/57 H Pulse Oximetry 92 L 100 98 06/20/18 20:00 06/20/18 20:45 06/20/18 21:00 Temperature Pulse Rate 94 H 85 87 Respiratory Rate 16 24 18 Blood Pressure 157/60 H 158/62 H Pulse Oximetry 100 100 100 06/20/18 22:00 06/20/18 23:00 06/21/18 00:00 Temperature 97.8 F Pulse Rate 96 H 93 H 90 Respiratory Rate 16 16 20 Blood Pressure 156/67 H 167/70 H 186/78 H Pulse Oximetry 100 98 99 06/21/18 01:00 06/21/18 02:00 06/21/18 03:00 Temperature Pulse Rate 84 90 90 Respiratory Rate 16 16 16 Blood Pressure 164/78 H 175/79 H 175/77 H Pulse Oximetry 100 99 100 06/21/18 04:00 06/21/18 04:55 06/21/18 05:00 Temperature Pulse Rate 89 92 H 90 Respiratory Rate 16 18 16 Blood Pressure 172/74 H 183/81 H Pulse Oximetry 100 100 06/21/18 05:30 06/21/18 06:00 06/21/18 06:57 Temperature Pulse Rate 81 81 79 Respiratory Rate 16 Blood Pressure 167/72 H 149/70 H 165/69 H Pulse Oximetry 100 95 100 06/21/18 07:00 06/21/18 07:27 06/21/18 07:57 Temperature Pulse Rate 80 80 80 Respiratory Rate Blood Pressure 170/70 H 174/70 H Pulse Oximetry 100 100 100 06/21/18 08:00 06/21/18 08:10 06/21/18 08:27 Temperature 98.7 F Pulse Rate 81 81 78 Respiratory Rate 17 Blood Pressure 152/67 H Pulse Oximetry 100 99 100 06/21/18 08:57 06/21/18 09:00 06/21/18 09:27 Temperature Pulse Rate 77 77 90 Respiratory Rate Blood Pressure 164/70 H 164/70 H Pulse Oximetry 100 100 97 06/21/18 09:57 06/21/18 10:00 06/21/18 10:27 Temperature Pulse Rate 92 H 95 H 84 Respiratory Rate Blood Pressure 155/67 H 127/60 Pulse Oximetry 93 L 98 100 06/21/18 10:57 06/21/18 11:00 06/21/18 11:27 Temperature Pulse Rate 80 81 79 Respiratory Rate Blood Pressure 98/49 L 103/54 L Pulse Oximetry 100 100 100 06/21/18 11:57 06/21/18 12:00 06/21/18 12:27 Temperature 98.2 F Pulse Rate 90 90 84 Respiratory Rate Blood Pressure 150/70 H 180/68 H Pulse Oximetry 100 100 100 06/21/18 12:57 06/21/18 13:00 06/21/18 13:27 Temperature Pulse Rate 83 83 84 Respiratory Rate Blood Pressure 125/75 143/62 H Pulse Oximetry 99 99 100 Intake & Output 06/20/18 06/21/18 06/21/18 18:59 06:59 18:59 Intake Total 274 / 274 274 / 274 169 / 169 Output Total 675 / 675 900 / 900 Balance -401 / -401 -626 / -626 169 / 169 Weight 62.2 kg Intake: IV 274 / 274 274 / 274 169 / 169 Cerebyx Inj 200 MGPE In NS Inj 54 / 54 54 / 54 54 / 54 50 ML @ 216 mls/hr IV.SIG Q8HR ALEXIS Rx#:[id number] Vimpat Inj 50 MG In NS Inj 100 105 / 105 105 / 105 ML @ 105 mls/hr IV.SIG Q12H ALEXIS Rx#:[id number] Keppra Inj 1,500 MG In NS Inj 115 / 115 115 / 115 115 / 115 100 ML @ 400 mls/hr IV.SIG Q12H ALEXIS Rx#:[id number] Output: Urine 900 / 900 Urine Amount (Catheter) 675 / 675 Female External 675 / 675 Other: Date of Last Bowel Movement 06/19/18 06/19/18 06/19/18 # Bowel Movements 0 Result Diagrams: 06/21/18 04:55 06/21/18 04:55 Objective Remarks: GENERAL: This is a 78-year-old female remains orotracheally intubated SKIN: Warm and dry. EYES: Pupils equal and round. About 2 mm bilaterally and reactive, no scleral icterus. No injection or drainage. ENT: No nasal bleeding or discharge. Mucous membranes pink and moist. NECK: Trachea midline. Orotracheal intubation CARDIOVASCULAR: Regular rate and rhythm. sinus. Normal S1-S2. No JVD. RESPIRATORY: Normal excursions on mechanical ventilation. Generally clear breath sounds, minimal secretions. GASTROINTESTINAL: Abdomen soft, non-tender, nondistended. No guarding, bowel sounds active. MUSCULOSKELETAL: Extremities with trace bilateral upper and lower extremity edema. Warm, well-perfused NEUROLOGICAL: Positive cough and gag. Pupils reactive. Alert on the ventilator and opens eyes to voice. Moves left upper, left lower and right lower extremity. Some movement right upper extremity. Duplicate below - unable to erase. GENERAL: SKIN: Warm and dry. HEAD: Atraumatic. Normocephalic. EYES: Pupils equal and round. No scleral icterus. No injection or drainage. ENT: No nasal bleeding or discharge. Mucous membranes pink and moist. NECK: Trachea midline. No JVD. CARDIOVASCULAR: Regular rate and rhythm. RESPIRATORY: No accessory muscle use. Clear to auscultation. Breath sounds equal bilaterally. GASTROINTESTINAL: Abdomen soft, non-tender, nondistended. Hepatic and splenic margins not palpable. MUSCULOSKELETAL: Extremities without clubbing, cyanosis, or edema. No obvious deformities. NEUROLOGICAL: Awake and alert. No obvious cranial nerve deficits. Motor grossly within normal limits. Five out of 5 muscle strength in the arms and legs. Normal speech. PSYCHIATRIC: Appropriate mood and affect; insight and judgment normal. Assessment and Plan - Problem List (1) Intraventricular hemorrhage, nontraumatic Code(s): I61.5 - Nontraumatic intracerebral hemorrhage, intraventricular Status: Acute (2) Hypertensive emergency Code(s): I16.1 - Hypertensive emergency Status: Acute (3) Metabolic encephalopathy Code(s): G93.41 - Metabolic encephalopathy Status: Acute (4) Altered mental status Code(s): R41.82 - Altered mental status, unspecified Status: Acute (5) History of peripheral arterial disease Code(s): Z86.79 - Personal history of other diseases of the circulatory system Status: Chronic (6) History of hypertension Code(s): Z86.79 - Personal history of other diseases of the circulatory system Status: Chronic (7) Cessation of tobacco use in previous 12 months Code(s): Z87.891 - Personal history of nicotine dependence Status: Chronic - Assessment and Plan Plan: NEURO/psych: 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 -Status post left craniotomy resection of tumor 06/0506/04/2018 (clopidogrel will be held for 7 days prior to surgery) -Oncology consult, also CT chest abdomen pelvis -right upper lobe mass with probable adrenal metastases cannot rule out liver metastases -Tight blood pressure control with nicardipine e and IV labetalol as needed, and PO meds, see below -Keep systolic blood pressure less than 150 -Supplement multivitamin thiamine given daily alcohol use -Watch closely for alcohol withdrawal -Mild alcohol withdrawal contributing to agitation -Use expected for agitation, Haldol as needed -EEG originally negative for seizures -Repeat EEG 06/06 field possible left frontal breakthrough. Loaded with fosphenytoin 1 g.. Start on 100 mg 3 times daily recheck level in a.m was 9.2 with free level around 17. Continue per neurology. -MRA 06/06 brain revealed left lateral ventricle resection, intervertebral hemorrhage slightly decreased. Small subdural hematoma. Postsurgical. Rightward shift 5 mm. Most recent EEG negative for acute seizure activity Currently on fosphenytoin 200 mg every 8 hours. Corrected for free Dilantin, level 15 On levetiracetam 1500 mg IV twice daily. Continue lacosamide 50 mg twice daily per neurosurgery request Neurosurgery managing antiepileptics. No obvious change in level of sedation from AEDs Quite alert today and gesturing with hands Encephalopathy considerably improved over the past 72 hours RESP: Acute hypoxic and hypercarbic respiratory failure- persistent Previous tobacco use Right upper lobe speak with a mass HCAP ventilator associated pneumonia -Pulmonology consulted for right upper lobe mass concerning for primary malignancy, with adrenal mass -Pulmonary Dr. Evans suggesting CT-guided biopsy and PET scan once clinically more stable -Reintubated and ISC after PACU 06/05. PT 7 days a week. Continue to breathe comfortably 48 hours after extubation, protects airway well CV: Hypertensive emergency History of hypertension Peripheral arterial disease -Continue home enalapril 40 mg daily and amlodipine 5 mg daily increased to 10 mg daily, continue pravastatin 40 mg daily. metoprolol tartrate 50 mg twice daily -Continue holding clopidogrel until cleared by neurosurgery -Continue to hold antihypertensive drugs GI: Left adrenal mass 1.3 x 1.2 cm Colonic diverticulosis Right liver mass versus cyst Elevated LFTs -tube feeds, lansoprazole for GI prophylax. Docusate sodium/senna 1 tablet twice daily for bowel regimen -Continue tube feedings with vital 1.5 goal 50 cc an hour -Follow blood glucose closely -Continue with swallow evaluation, continue tube feeding for now : -Monitor renal function closely. ID: Enterobacter cloaca K/strep pneumonia Antibiotic treatment ended 06/18 HEME: Leukocytosis Normocytic anemia -Oncology. Final pathology pending, - Dr. Kapadia. FEN/ENDO: -Electrolyte replacement per protocol PROPH: -Bilateral lower extremity SCDs. LINES: -Utilize peripheral IVs, central line if needed Overall impression: More alert and breathing with acceptable comfort. Physical therapy progressing (4) Altered mental status Qualifiers: Altered mental status type: unspecified Qualified Code(s): R41.82 - Altered mental status, unspecified
[2018-06-22] MEDS: Metoprolol Inj 5 MG/5 ML Vial IV.PUSH SCH ×3 (00:32→12:00)
[2018-06-22] MEDS: Artificial Tears Opth Drops 15 ML Bottle EACH EYE SCH ×3 (05:31→21:44)
[2018-06-22] MEDS: Lacosamide Inj 50 MG in Sodium Chlor 0.9% Inj 100 ML IV.SIG SCH ×2 (05:31→17:35)
[2018-06-22] MEDS: Fosphenytoin Inj 200 MGPE in Sodium Chlor 0.9% Inj 50 ML IV.SIG SCH ×3 (05:32→21:40)
[2018-06-22 05:59] LABS: Anion Gap 7 meq/L (5-15); Blood Urea Nitrogen 10 mg/dL (7-18); Calcium 8.9 mg/dL (8.5-10.1); Carbon Dioxide 30.8 meq/L (21.0-32.0); Chloride 101 meq/L (98-107); Glomerular Filtration Rate Greater Than 89 mL/min (>89); Glucose,Random 79 mg/dL (74-106); Magnesium 2.2 mg/dL (1.5-2.5); Phosphorus 3.7 mg/dL (2.5-4.9); Potassium 3.9 meq/L (3.5-5.1); Sodium 139 meq/L (136-145)
[2018-06-22 07:32] LABS: Hematocrit 30.6 % (35.0-46.0); Hemoglobin 10.4 gm/dL (11.6-15.3); Mean Corpuscular HGB Conc 33.9 % (32.0-36.0); Mean Corpuscular Hemoglobin 33.8 pg (27.0-34.0); Mean Corpuscular Volume 99.9 fL (80.0-100.0); Mean Platelet Volume 7.4 fL (7.0-11.0); Red Blood Count 3.06 mil/mm3 (4.00-5.30); Red Cell Distribution Width 14.7 % (11.6-17.2)
[2018-06-22 07:57] LABS: Platelet Count 428 th/mm3 (150-450); White Blood Count 10.3 th/mm3 (4.0-11.0)
[2018-06-22] MEDS: Senna/Docusate Sodium 8.6/50 MG Tablet PO SCH ×2 (08:57→21:41)
[2018-06-22] MEDS: Pantoprazole Inj 40 MG Vial IV.PUSH SCH (08:57)
[2018-06-22] MEDS: amLODIPine 5 MG Tablet PO SCH (08:57)
[2018-06-22] MEDS: Sodium Chloride 1 GM Tablet PO SCH ×2 (08:57→21:40)
[2018-06-22] MEDS: Enoxaparin Inj 40 MG/0.4 ML Syringe SQ SCH (08:57)
[2018-06-22] MEDS: Lisinopril 20 MG Tablet PO SCH (08:57)
[2018-06-22] MEDS: Budesonide-Formoterol 160/4.5 MCG 6 GM Inhaler INH SCH ×2 (08:58→21:43)
--- NOTE | 2018-06-22 09:38 | P.PNNS ---
Subjective Interval history: no significant changes overnight, speech difficulties <Samanta Banda - Last Filed: 06/22/18 09:35> Physical Exam Vital signs: Vital Signs 06/21/18 09:57 06/21/18 10:00 06/21/18 10:27 Temperature Pulse Rate 92 H 95 H 84 Respiratory Rate Blood Pressure 155/67 H 127/60 Pulse Oximetry 93 L 98 100 06/21/18 10:57 06/21/18 11:00 06/21/18 11:27 Temperature Pulse Rate 80 81 79 Respiratory Rate Blood Pressure 98/49 L 103/54 L Pulse Oximetry 100 100 100 06/21/18 11:57 06/21/18 12:00 06/21/18 12:27 Temperature 98.2 F Pulse Rate 90 90 84 Respiratory Rate Blood Pressure 150/70 H 180/68 H Pulse Oximetry 100 100 100 06/21/18 12:57 06/21/18 13:00 06/21/18 13:27 Temperature Pulse Rate 83 83 84 Respiratory Rate Blood Pressure 125/75 143/62 H Pulse Oximetry 99 99 100 06/21/18 13:57 06/21/18 14:00 06/21/18 14:27 Temperature Pulse Rate 84 82 84 Respiratory Rate Blood Pressure 134/60 154/68 H Pulse Oximetry 99 100 99 06/21/18 14:57 06/21/18 15:00 06/21/18 15:27 Temperature Pulse Rate 81 80 74 Respiratory Rate 17 Blood Pressure 134/61 120/56 L Pulse Oximetry 100 100 100 06/21/18 15:57 06/21/18 16:00 06/21/18 16:27 Temperature 97.6 F Pulse Rate 77 77 79 Respiratory Rate Blood Pressure 107/49 L 112/52 L Pulse Oximetry 94 L 94 L 92 L 06/21/18 16:57 06/21/18 17:00 06/21/18 17:27 Temperature Pulse Rate 81 80 77 Respiratory Rate Blood Pressure 130/58 L 143/63 H Pulse Oximetry 92 L 92 L 93 L 06/21/18 17:52 06/21/18 17:57 06/21/18 18:00 Temperature Pulse Rate 82 86 87 Respiratory Rate Blood Pressure 122/56 L Pulse Oximetry 91 L 91 L 06/21/18 18:27 06/21/18 18:57 02/07/19 19:00 Temperature Pulse Rate 86 87 Respiratory Rate Blood Pressure 126/58 L 132/63 Pulse Oximetry 91 L 95 06/21/18 19:27 06/21/18 19:57 06/21/18 20:00 Temperature 97.8 F Pulse Rate 90 88 90 Respiratory Rate 18 Blood Pressure 141/65 H 146/66 H 148/67 H Pulse Oximetry 94 L 95 93 L 06/21/18 20:27 06/21/18 20:46 06/21/18 20:57 Temperature Pulse Rate 92 H 89 95 H Respiratory Rate 16 Blood Pressure 148/67 H 147/65 H Pulse Oximetry 94 L 92 L 95 06/21/18 21:00 06/21/18 21:27 06/21/18 21:57 Temperature Pulse Rate 92 H 94 H 96 H Respiratory Rate Blood Pressure 155/68 H 145/62 H Pulse Oximetry 93 L 92 L 92 L 06/21/18 22:00 06/21/18 22:27 06/21/18 22:57 Temperature Pulse Rate 97 H 97 H 94 H Respiratory Rate Blood Pressure 150/67 H 147/67 H Pulse Oximetry 92 L 92 L 92 L 06/21/18 23:00 06/21/18 23:27 06/21/18 23:57 Temperature Pulse Rate 95 H 99 H 100 H Respiratory Rate Blood Pressure 177/70 H 157/68 H Pulse Oximetry 92 L 91 L 90 L 06/22/18 00:00 06/22/18 00:27 06/22/18 00:57 Temperature Pulse Rate 100 H 101 H 79 Respiratory Rate Blood Pressure 147/65 H 132/63 Pulse Oximetry 91 L 91 L 92 L 06/22/18 01:00 06/22/18 01:27 06/22/18 01:57 Temperature Pulse Rate 79 75 83 Respiratory Rate 17 Blood Pressure 133/60 139/65 Pulse Oximetry 92 L 98 98 06/22/18 02:00 06/22/18 02:27 06/22/18 02:57 Temperature Pulse Rate 84 86 87 Respiratory Rate 18 Blood Pressure 152/67 H 145/67 H Pulse Oximetry 98 98 98 06/22/18 03:00 06/22/18 03:27 06/22/18 03:57 Temperature Pulse Rate 85 90 92 H Respiratory Rate Blood Pressure 165/72 H Pulse Oximetry 98 97 97 06/22/18 04:00 06/22/18 04:09 06/22/18 04:27 Temperature 97.6 F Pulse Rate 89 88 95 H Respiratory Rate 20 17 Blood Pressure 161/70 H 169/72 H Pulse Oximetry 95 98 06/22/18 04:57 06/22/18 05:00 06/22/18 05:27 Temperature Pulse Rate 92 H 93 H 93 H Respiratory Rate Blood Pressure 157/64 H 159/72 H Pulse Oximetry 98 97 99 06/22/18 05:57 06/22/18 06:00 06/22/18 06:27 Temperature Pulse Rate 74 79 74 Respiratory Rate Blood Pressure 145/65 H 129/62 Pulse Oximetry 100 100 100 06/22/18 06:57 06/22/18 07:00 06/22/18 07:27 Temperature Pulse Rate 82 83 87 Respiratory Rate Blood Pressure 162/70 H 159/68 H Pulse Oximetry 100 100 98 06/22/18 07:57 06/22/18 08:00 06/22/18 08:27 Temperature 97.6 F Pulse Rate 90 88 89 Respiratory Rate Blood Pressure 180/75 H 164/70 H Pulse Oximetry 97 98 97 06/22/18 08:57 06/22/18 09:00 06/22/18 09:31 Temperature Pulse Rate 89 89 87 Respiratory Rate 18 Blood Pressure 160/69 H Pulse Oximetry 97 97 98 Intake & Output 06/21/18 06/22/18 06/22/18 18:59 06:59 18:59 Intake Total 528 / 528 328 / 328 Output Total 400 / 400 Balance 128 / 128 328 / 328 Weight 63.4 kg Intake: IV 328 / 328 328 / 328 Cerebyx Inj 200 MGPE In NS Inj 108 / 108 108 / 108 50 ML @ 216 mls/hr IV.SIG Q8HR ALEXIS Rx#:[id number] Vimpat Inj 50 MG In NS Inj 100 105 / 105 105 / 105 ML @ 105 mls/hr IV.SIG Q12H ALEX[facility] Rx#:[id number] Keppra Inj 1,500 MG In NS Inj 115 / 115 115 / 115 100 ML @ 400 mls/hr IV.SIG Q12H ALEXIS Rx#:[id number] Oral 200 / 200 Output: Urine 400 / 400 Other: # Incontinent Voids 3 Date of Last Bowel Movement 06/19/18 06/19/18 06/19/18 # Bowel Movements 0 Narrative: awake, alert mumbling words, cannot comprehend follows few simple commands moving extremities, right side weakness - Urinary Catheter Management Female External Cath placed during this visit: no Reason for continuing: Not indwelling catheter Indwelling Urethral Catheter Cath placed during this visit: yes, but has since been removed by the nurse Reason for continuing: Decision to DC catheter Insertion date: 06/05/18 Insertion time: 08:30 Removal date: 06/16/18 Removal time: 21:51 <Samanta Banda - Last Filed: 06/22/18 09:35> Vital signs: Vital Signs 06/24/18 15:39 06/24/18 20:19 06/24/18 23:13 Temperature 97.6 F 99.1 F Pulse Rate 89 106 H Respiratory Rate 18 18 Blood Pressure 122/60 119/55 L Pulse Oximetry 97 96 96 06/25/18 00:30 06/25/18 05:01 06/25/18 07:33 Temperature 98.2 F 98.3 F 98.1 F Pulse Rate 83 86 82 Respiratory Rate 18 18 18 Blood Pressure 121/58 L 143/67 H 130/61 Pulse Oximetry 98 95 98 06/25/18 11:37 Temperature 98.4 F Pulse Rate 82 Respiratory Rate 18 Blood Pressure 142/65 H Pulse Oximetry 94 L Intake & Output 06/24/18 06/25/18 06/25/18 18:59 06:59 18:59 Intake Total 994 / 994 169 / 169 274 / 274 Output Total 1300 / 1300 425 / 425 Balance -306 / -306 -256 / -256 274 / 274 Weight 60.1 kg Intake: IV 274 / 274 169 / 169 274 / 274 Cerebyx Inj 200 MGPE In NS Inj 54 / 54 54 / 54 54 / 54 50 ML @ 216 mls/hr IV.SIG Q8HR ALEX[facility] Rx#:[id number] Vimpat Inj 50 MG In NS Inj 100 105 / 105 105 / 105 ML @ 105 mls/hr IV.SIG Q12H [facility] Rx#:[id number] Keppra Inj 1,500 MG In NS Inj 115 / 115 115 / 115 115 / 115 100 ML @ 400 mls/hr IV.SIG Q12H ALEXIS Rx#:[id number] Oral 720 / 720 Output: Urine 1300 / 1300 425 / 425 Other: Date of Last Bowel Movement 06/19/18 06/19/18 06/19/18 - Urinary Catheter Management Female External Cath placed during this visit: no Indwelling Urethral Catheter Cath placed during this visit: no <PhilipDuke - Last Filed: 06/25/18 14:47> Assessment and Plan - Plan 78 yo female with vague constellation of symptoms GCS-[address] shows 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 hemorrhagic mass Will follow with you 05/30/18: cont neuro checks in ICU Dr. 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 at midnight on Monday night into Monday Minimize sedating meds, etc. 06/03/18: Appears to be a bit more encephalopathic today, possible contribution of hospital delirium versus her mild hydrocephalus, though favor delirium since her level of alertness remains stable Dr. 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 at midnight tonight Continue to minimize sedating meds, etc. 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 Palacios 06/06/18: POD #1. pt had seizure last night requiring intubation. She has been started on Keppra for seizures. On exam she opens eyes and follows commands. Postoperative MRI Brain w/wo contrast has been ordered and pending. Obtain EEG to assess seizures. Continue ventriculostomy draining, add ICP monitoring. Start sq lovenox for dvt prophylaxis. Will follow. 06/07/18: POD #2. patient neurologically stable, opens eyes and follows commands. Postoperative MRI Brain reviewed by neurosurgery team. Spot EEG reports no ongoing seizures, with high amplitude sharp waves on left?breach rhythm. Critical care plans on extubation today. Continue ventriculostomy draining at 10 mmHg. Final pathology pending. Neurology following for seizure management. Will follow. 06/08/18: POD #3. patient neurologically stable, opens eyes and follows commands. Ventriculostomy draining well with controlled ICPs, will continue at 10mmHg. Pathology still pending. cont seizure management per Neurology. dw critical care. will follow. 06/09/2018 POD#4 Remains Neurologically stable, follows commands Stop sedation wean ventilator to CPAP 5 x 12 and FiO2 30% Continue DuoNeb nebs 4 times daily. Check respiratory parameters and consider extubation Agree with Symbicort 160 about 4.5 mcg 1 puff twice daily and Solu-Medrol 40 mg IV twice daily Continue EVD Would maintain SBP 140-160 to improve CPP. 06/10/2018 POD#5 Seizure yesterday, and last night, have increased Cerebyx and Keppra D/C'ed Barbs would prefer to maintain on 2 agents and high therapeutic levels of Cerebyx, usually best with brain tumors Free Dilantin levels not easily obtainable here. Lets keep level around 20 with standard level remains Neurologically stable wean ventilator to CPAP 5 x 12 and FiO2 30% and if OK, may extubate from Neurosurgical standpoint. 06/11/18 POD #6 seizures controlled overnight, will continue Cerebyx 200 tid and Keppra 1500 bid. Dilantin levels 17.6 today continue critical care - vent weaning - CPAP trials cont EVD draining at 5 mmHg final pathology still pending will follow 06/12/18 POD #7 pt failed extubation yesterday, reintubated- critical care managing repeat EEG 06/11/18 abnormal with sharp activities left hemisphere dilantin levels 18.8 this morning cont current anticonvulsants, will repeat EEG today obtained follow up CT Brain this morning which was reviewed by Dr. Perdue, EVD raised to 15 mmHg neuro exam today appears better final pathology still pending 06/13/18 POD #8 neurologically she is awake, alert EEG yesterday 06/12/18 - mod encephalopathy, no reports of any seizure activities cont current anticonvulsants, Dilantin levels trending up pending today, started on Zosyn for gram neg rods in sputum - per critical care cont EVD challenge, cont at 15 mmHg today, plan to clamp tomorrow will follow 06/14/18 POD #9 neurologically remains awake and alert Ventriculostomy drain clamped today, follow up CT Head tomorrow am will follow 06/15/18: POD #10 neuro exam with no changes, f/u CT Head post EVD clamping reviewed by neurosurgery team, ventriculostomy drain removed, using sterile technique single stitch place, patient tolerated procedure well cont critical care management seizures controlled, continue current anticonvulsants FINAL PATHOLOGY: LOW GRADE NEOPLASM, MOST CONSISTENT WITH PILOCYTIC ASTROCYTOMA ; 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 current management Discussed Path with patient's son 06/17/2018 POD#12 Neuro: no sig. changes seizures controlled aggressive CPAP trials today DPH level 5.5 Bolused with 500 mgs. cont. ICU 06/18/2018 no neurological changes continue CPAP trials, vent wean to extubate remove surgical mamadou Dr. 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 nSell - continue CPAP, ?extubate pulmonology also following 06/20/2018 patient extubated, neuro exam unchanged, stable reconsult medical oncology for reeval for poss chemotherapy for pilocytic astrocytoma radiation oncology eval pending will follow 06/21/2018 neuro exam relatively stable, she waxes and wanes- dw nursing she is stable from NRS standpoint for a step down unit, radiation oncology for work up outpatient and potential xrt appreciate oncology reeval: there is no chemotherapy to offer for the low grade astrocytoma 06/22/2018 continue physical, occupation, and speech therapy increase activity, OOB to chair cont present care will follow <Samanta Banda - Last Filed: 06/22/18 09:35> - Attending Attestation Neuro stable tolerating extubation Incision clean, dry I have personally seen and examined the patient, reviewed pertinent labs and imaging studies. I agree with Ms. Banda's ( Neurosurgery PA), assessment as well as plan of care. <Duke Palacios - Last Filed: 06/25/18 14:47>
[2018-06-22] MEDS: levETIRAcetam Inj 1,500 MG in Sodium Chlor 0.9% Inj 100 ML IV.SIG SCH ×2 (12:00→23:58)
--- NOTE | 2018-06-22 12:05 | P.PNIM ---
Subjective Interval history: Whispers words at age states that he is not any pain. Still with confusion and not oriented to person and place Physical Exam Vital signs: Vital Signs 06/21/18 11:57 06/21/18 12:00 06/21/18 12:27 Temperature 98.2 F Pulse Rate 90 90 84 Respiratory Rate Blood Pressure 150/70 H 180/68 H Pulse Oximetry 100 100 100 06/21/18 12:57 06/21/18 13:00 06/21/18 13:27 Temperature Pulse Rate 83 83 84 Respiratory Rate Blood Pressure 125/75 143/62 H Pulse Oximetry 99 99 100 06/21/18 13:57 06/21/18 14:00 06/21/18 14:27 Temperature Pulse Rate 84 82 84 Respiratory Rate Blood Pressure 134/60 154/68 H Pulse Oximetry 99 100 99 06/21/18 14:57 06/21/18 15:00 06/21/18 15:27 Temperature Pulse Rate 81 80 74 Respiratory Rate 17 Blood Pressure 134/61 120/56 L Pulse Oximetry 100 100 100 06/21/18 15:57 06/21/18 16:00 06/21/18 16:27 Temperature 97.6 F Pulse Rate 77 77 79 Respiratory Rate Blood Pressure 107/49 L 112/52 L Pulse Oximetry 94 L 94 L 92 L 06/21/18 16:57 06/21/18 17:00 06/21/18 17:27 Temperature Pulse Rate 81 80 77 Respiratory Rate Blood Pressure 130/58 L 143/63 H Pulse Oximetry 92 L 92 L 93 L 06/21/18 17:52 06/21/18 17:57 06/21/18 18:00 Temperature Pulse Rate 82 86 87 Respiratory Rate Blood Pressure 122/56 L Pulse Oximetry 91 L 91 L 06/21/18 18:27 06/21/18 18:57 06/21/18 19:00 Temperature Pulse Rate 86 87 Respiratory Rate Blood Pressure 126/58 L 132/63 Pulse Oximetry 91 L 95 06/21/18 19:27 06/21/18 19:57 06/21/18 20:00 Temperature 97.8 F Pulse Rate 90 88 90 Respiratory Rate 18 Blood Pressure 141/65 H 146/66 H 148/67 H Pulse Oximetry 94 L 95 93 L 06/21/18 20:27 06/21/18 20:46 06/21/18 20:57 Temperature Pulse Rate 92 H 89 95 H Respiratory Rate 16 Blood Pressure 148/67 H 147/65 H Pulse Oximetry 94 L 92 L 95 06/21/18 21:00 06/21/18 21:27 06/21/18 21:57 Temperature Pulse Rate 92 H 94 H 96 H Respiratory Rate Blood Pressure 155/68 H 145/62 H Pulse Oximetry 93 L 92 L 92 L 06/21/18 22:00 06/21/18 22:27 06/21/18 22:57 Temperature Pulse Rate 97 H 97 H 94 H Respiratory Rate Blood Pressure 150/67 H 147/67 H Pulse Oximetry 92 L 92 L 92 L 06/21/18 23:00 06/21/18 23:27 06/21/18 23:57 Temperature Pulse Rate 95 H 99 H 100 H Respiratory Rate Blood Pressure 177/70 H 157/68 H Pulse Oximetry 92 L 91 L 90 L 06/22/18 00:00 06/22/18 00:27 06/22/18 00:57 Temperature Pulse Rate 100 H 101 H 79 Respiratory Rate Blood Pressure 147/65 H 132/63 Pulse Oximetry 91 L 91 L 92 L 06/22/18 01:00 06/22/18 01:27 06/22/18 01:57 Temperature Pulse Rate 79 75 83 Respiratory Rate 17 Blood Pressure 133/60 139/65 Pulse Oximetry 92 L 98 98 06/22/18 02:00 06/22/18 02:27 06/22/18 02:57 Temperature Pulse Rate 84 86 87 Respiratory Rate 18 Blood Pressure 152/67 H 145/67 H Pulse Oximetry 98 98 98 06/22/18 03:00 06/22/18 03:27 06/22/18 03:57 Temperature Pulse Rate 85 90 92 H Respiratory Rate Blood Pressure 165/72 H Pulse Oximetry 98 97 97 06/22/18 04:00 06/22/18 04:09 06/22/18 04:27 Temperature 97.6 F Pulse Rate 89 88 95 H Respiratory Rate 20 17 Blood Pressure 161/70 H 169/72 H Pulse Oximetry 95 98 06/22/18 04:57 06/22/18 05:00 06/22/18 05:27 Temperature Pulse Rate 92 H 93 H 93 H Respiratory Rate Blood Pressure 157/64 H 159/72 H Pulse Oximetry 98 97 99 06/22/18 05:57 06/22/18 06:00 06/22/18 06:27 Temperature Pulse Rate 74 79 74 Respiratory Rate Blood Pressure 145/65 H 129/62 Pulse Oximetry 100 100 100 06/22/18 06:57 06/22/18 07:00 06/22/18 07:27 Temperature Pulse Rate 82 83 87 Respiratory Rate Blood Pressure 162/70 H 159/68 H Pulse Oximetry 100 100 98 06/22/18 07:57 06/22/18 08:00 06/22/18 08:27 Temperature 97.6 F Pulse Rate 90 88 89 Respiratory Rate Blood Pressure 180/75 H 164/70 H Pulse Oximetry 97 98 97 06/22/18 08:57 06/22/18 09:00 06/22/18 09:27 Temperature Pulse Rate 89 89 92 H Respiratory Rate Blood Pressure 160/69 H 136/63 Pulse Oximetry 97 97 97 06/22/18 09:31 06/22/18 09:57 06/22/18 10:00 Temperature Pulse Rate 87 80 91 H Respiratory Rate 18 Blood Pressure 134/62 Pulse Oximetry 98 100 100 06/22/18 10:27 06/22/18 10:57 06/22/18 11:00 Temperature Pulse Rate 92 H 81 80 Respiratory Rate Blood Pressure 131/58 L 122/57 L Pulse Oximetry 100 100 100 06/22/18 11:27 Temperature Pulse Rate 98 H Respiratory Rate Blood Pressure 137/62 Pulse Oximetry 95 Intake & Output 06/21/18 06/22/18 06/22/18 18:59 06:59 18:59 Intake Total 528 / 528 328 / 328 Output Total 400 / 400 Balance 128 / 128 328 / 328 Weight 63.4 kg Intake: IV 328 / 328 328 / 328 Cerebyx Inj 200 MGPE In NS Inj 108 / 108 108 / 108 50 ML @ 216 mls/hr IV.SIG Q8HR [facility] Rx#:[id number] Vimpat Inj 50 MG In NS Inj 100 105 / 105 105 / 105 ML @ 105 mls/hr IV.SIG Q12H [facility] Rx#:[id number] Keppra Inj 1,500 MG In NS Inj 115 / 115 115 / 115 100 ML @ 400 mls/hr IV.SIG Q12H A[facility] Rx#:[id number] Oral 200 / 200 Output: Urine 400 / 400 Other: # Incontinent Voids 3 Date of Last Bowel Movement 02/05/19 02/05/19 02/05/19 # Bowel Movements 0 Narrative: Well-nourished well-developed female no acute distress sitting up in a chair with bilateral wrist restraints Cardiovascular regular rhythm Lungs clear to auscultation bilaterally Abdomen soft nontender Normal exam confused, awake and not oriented, whispers words yes and no, did not wiggle her toes for me. Did squeeze my hand with left hand weakness. Urinary Catheter Management Female External: Cath placed during this visit: no Reason for continuing: Not indwelling catheter Indwelling Urethral Catheter: Cath placed during this visit: yes, but has since been removed by the nurse Reason for continuing: Decision to DC catheter Insertion date: 06/05/18 Insertion time: 08:30 Removal date: 06/16/18 Removal time: 21:51 Results Labs CBC & Chem 7: 06/22/18 04:28 06/22/18 04:28 Assessment and Plan (1) Intraventricular hemorrhage, nontraumatic: Code(s): I61.5 - Nontraumatic intracerebral hemorrhage, intraventricular Status: Acute (2) Hypertensive emergency: Code(s): I16.1 - Hypertensive emergency Status: Acute (3) Metabolic encephalopathy: Code(s): G93.41 - Metabolic encephalopathy Status: Acute (4) Altered mental status: Code(s): R41.82 - Altered mental status, unspecified Status: Acute (5) History of peripheral arterial disease: Code(s): Z86.79 - Personal history of other diseases of the circulatory system Status: Chronic (6) History of hypertension: Code(s): Z86.79 - Personal history of other diseases of the circulatory system Status: Chronic (7) Cessation of tobacco use in previous 12 months: Code(s): Z87.891 - Personal history of nicotine dependence Status: Chronic Plan 78-year-old white female was transferred from [facility] with 1 week history of memory loss hallucination and found to have subacute anterior ventricular hemorrhage and 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 Kapadia review case recommended no chemo and refer to radiation oncology. Per oncology, Dr. 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 Perez states no chemo at this time. Dr. Clemons has been consulted and recommends outpatient follow-up for radiation treatment -Tight blood pressure control with nicardipine e and IV labetalol as needed, and PO meds, see below -Keep systolic blood pressure less than 150 -Supplement multivitamin thiamine given daily alcohol use -Watch closely for alcohol withdrawal -Mild alcohol withdrawal contributing to agitation Haldol as needed -EEG originally negative for seizures -Repeat EEG 06/06 field possible left frontal breakthrough. -MRA 06/06 brain revealed left lateral ventricle resection, intervertebral hemorrhage slightly decreased. Small subdural hematoma. Postsurgical. Rightward shift 5 mm. Most recent EEG negative for acute seizure activity Currently on fosphenytoin 200 mg every 8 hours. Corrected for free Dilantin, level 15 On levetiracetam 1500 mg IV twice daily. Continue lacosamide 50 mg twice daily per neurosurgery request Neurosurgery managing antiepileptics. No obvious change in level of sedation from AEDs Encephalopathy improved over the past 72 hours currently sitting up in geriatric chair Acute hypoxic and hypercarbic respiratory failure-now extubated and on nasal cannula 2 L oxygen Previous tobacco use Right upper lobe speak with a mass HCAP ventilator associated pneumonia -Pulmonology consulted for right upper lobe mass concerning for primary malignancy, with adrenal mass -Pulmonary Dr. Evans suggesting CT-guided biopsy and PET scan once clinically more stable -Reintubated and ISC after PACU 06/05. PT 7 days a week. Continue to breathe comfortably 48 hours after extubation, protects airway well Hypertensive emergency History of hypertension Peripheral arterial disease -Continue home enalapril 40 mg daily and amlodipine 5 mg daily increased to 10 mg daily, continue pravastatin 40 mg daily. 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 Docusate sodium/senna 1 tablet twice daily for bowel regimen -Continue tube feedings with vital 1.5 goal 50 cc an hour -Follow blood glucose closely -Continue with swallow evaluation, continue tube feeding for now Passed swallow evaluation today with pured diet and honey thickened liquid Enterobacter cloaca K/strep pneumonia Antibiotic treatment ended 06/18 Leukocytosisresolved Normocytic anemia likely due to malignancy DVT PROPH: -Bilateral lower extremity SCDs. Continue physical therapy, speech therapy, add occupational therapy Progress Note: Quality VTE Deep Vein Thrombosis/Pulmonary Embolism Present on Admission: No _ (1) Altered mental status Qualifiers: Altered mental status type: unspecified Coma depth: Coma timing: Qualified Code(s): R41.82 - Altered mental status, unspecified
--- NOTE | 2018-06-22 19:38 | P.PN ---
Subjective Interval history: She is improving. Able to whisper some words but still confused. No respiratory distress no wheezing. Taking some pured foods. Physical Exam Vital signs: Vital Signs 06/21/18 19:57 06/21/18 20:00 06/21/18 20:27 Temperature 97.8 F Pulse Rate 88 90 92 H Respiratory Rate 18 Blood Pressure 146/66 H 148/67 H 148/67 H Pulse Oximetry 95 93 L 94 L 06/21/18 20:46 06/21/18 20:57 06/21/18 21:00 Temperature Pulse Rate 89 95 H 92 H Respiratory Rate 16 Blood Pressure 147/65 H Pulse Oximetry 92 L 95 93 L 06/21/18 21:27 06/21/18 21:57 06/21/18 22:00 Temperature Pulse Rate 94 H 96 H 97 H Respiratory Rate Blood Pressure 155/68 H 145/62 H Pulse Oximetry 92 L 92 L 92 L 06/21/18 22:27 06/21/18 22:57 06/21/18 23:00 Temperature Pulse Rate 97 H 94 H 95 H Respiratory Rate Blood Pressure 150/67 H 147/67 H Pulse Oximetry 92 L 92 L 92 L 06/21/18 23:27 06/21/18 23:57 06/22/18 00:00 Temperature Pulse Rate 99 H 100 H 100 H Respiratory Rate Blood Pressure 177/70 H 157/68 H Pulse Oximetry 91 L 90 L 91 L 06/22/18 00:27 06/22/18 00:57 06/22/18 01:00 Temperature Pulse Rate 101 H 79 79 Respiratory Rate Blood Pressure 147/65 H 132/63 Pulse Oximetry 91 L 92 L 92 L 06/22/18 01:27 06/22/18 01:57 06/22/18 02:00 Temperature Pulse Rate 75 83 84 Respiratory Rate 17 18 Blood Pressure 133/60 139/65 Pulse Oximetry 98 98 98 06/22/18 02:27 06/22/18 02:57 06/22/18 03:00 Temperature Pulse Rate 86 87 85 Respiratory Rate Blood Pressure 152/67 H 145/67 H Pulse Oximetry 98 98 98 06/22/18 03:27 06/22/18 03:57 06/22/18 04:00 Temperature 97.6 F Pulse Rate 90 92 H 89 Respiratory Rate 20 Blood Pressure 165/72 H 161/70 H Pulse Oximetry 97 97 95 06/22/18 04:09 06/22/18 04:27 06/22/18 04:57 Temperature Pulse Rate 88 95 H 92 H Respiratory Rate 17 Blood Pressure 169/72 H 157/64 H Pulse Oximetry 98 98 06/22/18 05:00 06/22/18 05:27 06/22/18 05:57 Temperature Pulse Rate 93 H 93 H 74 Respiratory Rate Blood Pressure 159/72 H Pulse Oximetry 97 99 100 06/22/18 06:00 06/22/18 06:27 06/22/18 06:57 Temperature Pulse Rate 79 74 82 Respiratory Rate Blood Pressure 145/65 H 129/62 162/70 H Pulse Oximetry 100 100 100 06/22/18 07:00 06/22/18 07:27 06/22/18 07:57 Temperature Pulse Rate 83 87 90 Respiratory Rate Blood Pressure 159/68 H 180/75 H Pulse Oximetry 100 98 97 06/22/18 08:00 06/22/18 08:27 06/22/18 08:57 Temperature 97.6 F Pulse Rate 88 89 89 Respiratory Rate Blood Pressure 164/70 H 160/69 H Pulse Oximetry 98 97 97 06/22/18 09:00 06/22/18 09:27 06/22/18 09:31 Temperature Pulse Rate 89 92 H 87 Respiratory Rate 18 Blood Pressure 136/63 Pulse Oximetry 97 97 98 06/22/18 09:57 06/22/18 10:00 06/22/18 10:27 Temperature Pulse Rate 80 91 H 92 H Respiratory Rate Blood Pressure 134/62 131/58 L Pulse Oximetry 100 100 100 06/22/18 10:57 06/22/18 11:00 06/22/18 11:27 Temperature Pulse Rate 81 80 98 H Respiratory Rate Blood Pressure 122/57 L 137/62 Pulse Oximetry 100 100 95 06/22/18 11:57 06/22/18 12:00 06/22/18 12:27 Temperature 99.0 F Pulse Rate 97 H 85 83 Respiratory Rate Blood Pressure 116/58 L 122/57 L Pulse Oximetry 84 L 87 L 92 L 06/22/18 12:57 06/22/18 13:00 06/22/18 13:27 Temperature Pulse Rate 88 88 93 H Respiratory Rate Blood Pressure 135/61 154/63 H Pulse Oximetry 99 99 96 06/22/18 13:57 06/22/18 14:00 06/22/18 14:27 Temperature Pulse Rate 91 H 90 92 H Respiratory Rate Blood Pressure 149/65 H 155/70 H Pulse Oximetry 100 98 99 06/22/18 14:57 06/22/18 15:00 06/22/18 15:27 Temperature Pulse Rate 92 H 92 H 90 Respiratory Rate Blood Pressure 168/69 H 136/109 H Pulse Oximetry 85 L 06/22/18 15:42 06/22/18 16:16 06/22/18 16:27 Temperature 98.5 F 98.2 F Pulse Rate 86 90 80 Respiratory Rate 20 16 Blood Pressure 129/59 L Pulse Oximetry 95 Intake & Output 06/22/18 06/22/18 06/23/18 06:59 18:59 06:59 Intake Total 328 / 328 474 / 474 Output Total 500 / 500 Balance 328 / 328 -26 / -26 Weight 63.4 kg Intake: IV 328 / 328 274 / 274 Cerebyx Inj 200 MGPE In NS Inj 108 / 108 54 / 54 50 ML @ 216 mls/hr IV.SIG Q8HR [facility] Rx#:[id number] Vimpat Inj 50 MG In NS Inj 100 105 / 105 105 / 105 ML @ 105 mls/hr IV.SIG Q12H [facility] Rx#:[id number] Keppra Inj 1,500 MG In NS Inj 115 / 115 115 / 115 100 ML @ 400 mls/hr IV.SIG Q12H [facility] Rx#:[id number] Oral 200 / 200 Output: Urine 500 / 500 Other: # Incontinent Voids 3 1 Date of Last Bowel Movement 06/19/18 06/19/18 # Bowel Movements 0 Narrative: awake, alert mumbling words, cannot comprehend GENERAL: Averagely built elderly white female no acute distress SKIN: Warm and dry. HEAD: Atraumatic. Normocephalic. Dressing and scar on scalp EYES: Pupils equal and round. No scleral icterus. No injection or drainage. ENT: No nasal bleeding or discharge. Mucous membranes pink and moist. NECK: Trachea midline. No JVD. CARDIOVASCULAR: Regular rate and rhythm. RESPIRATORY: No accessory muscle use. Occasional bibasilar crackles. Breath sounds equal bilaterally. GASTROINTESTINAL: Abdomen soft, non-tender, nondistended. Hepatic and splenic margins not palpable. MUSCULOSKELETAL: Extremities without clubbing, cyanosis, or edema. No obvious deformities. NEUROLOGICAL: Awake and alert. No obvious cranial nerve deficits. Moves arms but seems weak. PSYCHIATRIC: Cannot assess - Urinary Catheter Management Female External Cath placed during this visit: no Reason for continuing: Not indwelling catheter Indwelling Urethral Catheter Cath placed during this visit: yes, but has since been removed by the nurse Reason for continuing: Decision to DC catheter Insertion date: 06/05/18 Insertion time: 08:30 Removal date: 06/16/18 Removal time: 21:51 Results - Labs CBC & Chem 7: 06/22/18 04:28 06/22/18 04:28 Laboratory Results - last 24 hr 06/22/18 06/22/18 04:28 04:28 WBC 10.3 RBC 3.06 L Hgb 10.4 L Hct 30.6 L MCV 99.9 MCH 33.8 MCHC 33.9 RDW 14.7 Plt Count 428 MPV 7.4 Sodium 139 Potassium 3.9 Chloride 101 Carbon Dioxide 30.8 Anion Gap 7 BUN 10 Creatinine 0.29 L Estimated GFR Greater than 89 Random Glucose 79 Calcium 8.9 Phosphorus 3.7 Magnesium 2.2 Assessment and Plan - Assessment (1) COPD (chronic obstructive pulmonary disease) Code(s): J44.9 - Chronic obstructive pulmonary disease, unspecified Status: Acute (2) Right upper lobe pulmonary nodule Code(s): R91.1 - Solitary pulmonary nodule Status: Acute (3) Intraventricular hemorrhage, nontraumatic Code(s): I61.5 - Nontraumatic intracerebral hemorrhage, intraventricular Status: Acute (4) Hypertensive emergency Code(s): I16.1 - Hypertensive emergency Status: Acute (5) Metabolic encephalopathy Code(s): G93.41 - Metabolic encephalopathy Status: Acute (6) Altered mental status Code(s): R41.82 - Altered mental status, unspecified Status: Acute (7) History of peripheral arterial disease Code(s): Z86.79 - Personal history of other diseases of the circulatory system Status: Chronic (8) History of hypertension Code(s): Z86.79 - Personal history of other diseases of the circulatory system Status: Chronic (9) Cessation of tobacco use in previous 12 months Code(s): Z87.891 - Personal history of nicotine dependence Status: Chronic - Plan 1 continue O2 nasal cannula 2 L and wean 2. Continue DuoNeb nebs 4 times daily. 3. CBC BMP in a.m. 4. Workup for lung mass when clinically stable 5. Continue antibiotics as ordered 6 Symbicort 160 about 4.5 mcg 1 puff twice daily 7. Physical therapy for activity 8. Chest x-ray on Monday 9. Tube feedings at 50 cc/h Jevity 10. Continue prednisone 15 mg daily 11. BiPAP 12/5 centimeters 30% FiO2 if she desaturates (6) Altered mental status Qualifiers: Altered mental status type: unspecified Qualified Code(s): R41.82 - Altered mental status, unspecified
[2018-06-22] MEDS: Metoprolol Tartrate 50 MG Tablet PO SCH (21:40)
[2018-06-23] MEDS: Lacosamide Inj 50 MG in Sodium Chlor 0.9% Inj 100 ML IV.SIG SCH ×2 (05:00→16:13)
[2018-06-23] MEDS: Artificial Tears Opth Drops 15 ML Bottle EACH EYE SCH ×3 (05:01→22:38)
[2018-06-23] MEDS: Fosphenytoin Inj 200 MGPE in Sodium Chlor 0.9% Inj 50 ML IV.SIG SCH ×3 (06:05→22:41)
[2018-06-23] MEDS: Metoprolol Tartrate 50 MG Tablet PO SCH ×2 (09:52→22:22)
[2018-06-23] MEDS: Senna/Docusate Sodium 8.6/50 MG Tablet PO SCH ×2 (09:52→22:22)
[2018-06-23] MEDS: Sodium Chloride 1 GM Tablet PO SCH ×2 (09:53→22:22)
[2018-06-23] MEDS: Lisinopril 20 MG Tablet PO SCH (09:53)
[2018-06-23] MEDS: amLODIPine 5 MG Tablet PO SCH (09:54)
[2018-06-23] MEDS: Enoxaparin Inj 40 MG/0.4 ML Syringe SQ SCH (09:55)
[2018-06-23] MEDS: Budesonide-Formoterol 160/4.5 MCG 6 GM Inhaler INH SCH ×2 (09:55→22:30)
[2018-06-23] MEDS: levETIRAcetam Inj 1,500 MG in Sodium Chlor 0.9% Inj 100 ML IV.SIG SCH ×2 (10:20→22:58)
--- NOTE | 2018-06-23 12:02 | P.PNIM ---
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 when held mild left upper extremity weakness 4+ Physical Exam Vital signs: Vital Signs 06/22/18 12:27 06/22/18 12:57 06/22/18 13:00 Temperature Pulse Rate 83 88 88 Respiratory Rate Blood Pressure 122/57 L 135/61 Pulse Oximetry 92 L 99 99 06/22/18 13:27 06/22/18 13:57 06/22/18 14:00 Temperature Pulse Rate 93 H 91 H 90 Respiratory Rate Blood Pressure 154/63 H 149/65 H Pulse Oximetry 96 100 98 06/22/18 14:27 06/22/18 14:57 06/22/18 15:00 Temperature Pulse Rate 92 H 92 H 92 H Respiratory Rate Blood Pressure 155/70 H 168/69 H Pulse Oximetry 99 85 L 06/22/18 15:27 06/22/18 15:42 06/22/18 16:16 Temperature 98.5 F Pulse Rate 90 86 90 Respiratory Rate 20 Blood Pressure 136/109 H Pulse Oximetry 06/22/18 16:27 06/22/18 20:00 06/22/18 20:43 Temperature 98.2 F 98.5 F Pulse Rate 80 99 H Respiratory Rate 16 16 18 Blood Pressure 129/59 L 149/69 H Pulse Oximetry 95 98 06/22/18 21:27 06/23/18 00:00 06/23/18 00:13 Temperature 97.5 F L Pulse Rate 78 92 H Respiratory Rate 20 16 18 Blood Pressure 140/65 Pulse Oximetry 98 100 06/23/18 04:00 06/23/18 05:18 06/23/18 07:46 Temperature 97.8 F 97.3 F L Pulse Rate 83 67 Respiratory Rate 16 18 18 Blood Pressure 155/57 H 143/67 H Pulse Oximetry 100 93 L 06/23/18 11:51 Temperature 97.7 F Pulse Rate 77 Respiratory Rate 18 Blood Pressure 134/60 Pulse Oximetry 100 Intake & Output 06/22/18 06/23/18 06/23/18 18:59 06:59 18:59 Intake Total 474 / 474 274 / 274 54 / 54 Output Total 500 / 500 300 / 300 Balance -26 / -26 -26 / -26 54 / 54 Weight 61.6 kg Intake: IV 274 / 274 274 / 274 54 / 54 Cerebyx Inj 200 MGPE In NS Inj 54 / 54 54 / 54 54 / 54 50 ML @ 216 mls/hr IV.SIG Q8HR [facility] Rx#:[id number] Vimpat Inj 50 MG In NS Inj 100 105 / 105 105 / 105 ML @ 105 mls/hr IV.SIG Q12H [facility] Rx#:[id number] Keppra Inj 1,500 MG In NS Inj 115 / 115 115 / 115 100 ML @ 400 mls/hr IV.SIG Q12H [facility] Rx#:[id number] Oral 200 / 200 Output: Urine 500 / 500 300 / 300 Other: # Incontinent Voids 1 Date of Last Bowel Movement 06/19/18 # Bowel Movements 0 Narrative: awake and alert but confused speaks in whispers but repettive speech anicteric pupils equal neck supple lungs- no rales regular rhythm abdomen soft, nontedner extremities no edema grippe with both hand - some mild left UE weakness on exam, extremtiies- multipodus boots in place Urinary Catheter Management Female External: Cath placed during this visit: no Reason for continuing: Not indwelling catheter Indwelling Urethral Catheter: Cath placed during this visit: yes, but has since been removed by the nurse Reason for continuing: Decision to DC catheter Insertion date: 06/05/18 Insertion time: 08:30 Removal date: 06/16/18 Removal time: 21:51 Results Labs CBC & Chem 7: 06/22/18 04:28 06/22/18 04:28 Assessment and Plan (1) COPD (chronic obstructive pulmonary disease): Code(s): J44.9 - Chronic obstructive pulmonary disease, unspecified Status: Acute (2) Right upper lobe pulmonary nodule: Code(s): R91.1 - Solitary pulmonary nodule Status: Acute (3) Intraventricular hemorrhage, nontraumatic: Code(s): I61.5 - Nontraumatic intracerebral hemorrhage, intraventricular Status: Acute (4) Hypertensive emergency: Code(s): I16.1 - Hypertensive emergency Status: Acute (5) Metabolic encephalopathy: Code(s): G93.41 - Metabolic encephalopathy Status: Acute (6) Altered mental status: Code(s): R41.82 - Altered mental status, unspecified Status: Acute (7) History of peripheral arterial disease: Code(s): Z86.79 - Personal history of other diseases of the circulatory system Status: Chronic (8) History of hypertension: Code(s): Z86.79 - Personal history of other diseases of the circulatory system Status: Chronic (9) Cessation of tobacco use in previous 12 months: Code(s): Z87.891 - Personal history of nicotine dependence Status: Chronic Plan 78-year-old white female was transferred from [facility] with 1 week history of memory loss hallucination and found to have subacute anterior ventricular hemorrhage and 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 Kapadia review case recommended no chemo and refer to radiation oncology. Per oncology, Dr. 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 Perez states no chemo at this time. Dr. Clemons has been consulted and recommends outpatient follow-up for radiation treatment -Tight blood pressure control with nicardipine e and IV labetalol as needed, and PO meds, see below -Keep systolic blood pressure less than 150 -Supplement multivitamin thiamine given daily alcohol use -Watch closely for alcohol withdrawal -Mild alcohol withdrawal contributing to agitation Haldol as needed -EEG originally negative for seizures -Repeat EEG 06/06 field possible left frontal breakthrough. -MRA 06/06 brain revealed left lateral ventricle resection, intervertebral hemorrhage slightly decreased. Small subdural hematoma. Postsurgical. Rightward shift 5 mm. Most recent EEG negative for acute seizure activity Currently on fosphenytoin 200 mg every 8 hours. Corrected for free Dilantin, level 15 On levetiracetam 1500 mg IV twice daily. Continue lacosamide 50 mg twice daily per neurosurgery request Neurosurgery managing antiepileptics. No obvious change in level of sedation from AEDs Encephalopathy improved over the past 72 hours currently sitting up in geriatric chair Acute hypoxic and hypercarbic respiratory failure-now extubated and on nasal cannula 2 L oxygen Previous tobacco use Right upper lobe speak with a mass HCAP ventilator associated pneumonia -Pulmonology consulted for right upper lobe mass concerning for primary malignancy, with adrenal mass -Pulmonary Dr. Evans suggesting CT-guided biopsy and PET scan once clinically more stable -Reintubated and ISC after PACU 06/05. PT 7 days a week. Continue to breathe comfortably 48 hours after extubation, protects airway well - work up when stable Hypertensive emergency History of hypertension Peripheral arterial disease -Continue home enalapril 40 mg daily and amlodipine 5 mg daily increased to 10 mg daily, continue pravastatin 40 mg daily. 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 Docusate sodium/senna 1 tablet twice daily for bowel regimen -Continue tube feedings with vital 1.5 goal 50 cc an hour -Follow blood glucose closely -Continue with swallow evaluation, continue tube feeding for now 06/22 Passed swallow evaluation on pured diet and honey thickened liquid needs assistance and supervision Enterobacter cloaca K/strep pneumonia Antibiotic treatment ended 06/18 Leukocytosisresolved Normocytic anemia likely due to malignancy DVT PROPH: -Bilateral lower extremity SCDs. Continue physical therapy, speech therapy, add occupational therapy Progress Note: Quality VTE CM consult - will need placement Progress Note: Quality VTE Deep Vein Thrombosis/Pulmonary Embolism Present on Admission: No _ (1) Altered mental status Qualifiers: Altered mental status type: unspecified Coma depth: Coma timing: Qualified Code(s): R41.82 - Altered mental status, unspecified (2) COPD (chronic obstructive pulmonary disease) Qualifiers: COPD type: Chronic bronchitis type: Emphysema type:
--- NOTE | 2018-06-23 13:47 | P.PNNS ---
Subjective Interval history: doing well Physical Exam Vital signs: Vital Signs 06/22/18 13:57 06/22/18 14:00 06/22/18 14:27 Temperature Pulse Rate 91 H 90 92 H Respiratory Rate Blood Pressure 149/65 H 155/70 H Pulse Oximetry 100 98 99 06/22/18 14:57 06/22/18 15:00 06/22/18 15:27 Temperature Pulse Rate 92 H 92 H 90 Respiratory Rate Blood Pressure 168/69 H 136/109 H Pulse Oximetry 85 L 06/22/18 15:42 06/22/18 16:16 06/22/18 16:27 Temperature 98.5 F 98.2 F Pulse Rate 86 90 80 Respiratory Rate 20 16 Blood Pressure 129/59 L Pulse Oximetry 95 06/22/18 20:00 06/22/18 20:43 06/22/18 21:27 Temperature 98.5 F Pulse Rate 99 H 78 Respiratory Rate 16 18 20 Blood Pressure 149/69 H Pulse Oximetry 98 98 06/23/18 00:00 06/23/18 00:13 06/23/18 04:00 Temperature 97.5 F L Pulse Rate 92 H Respiratory Rate 16 18 16 Blood Pressure 140/65 Pulse Oximetry 100 06/23/18 05:18 06/23/18 07:46 06/23/18 11:51 Temperature 97.8 F 97.3 F L 97.7 F Pulse Rate 83 67 77 Respiratory Rate 18 18 18 Blood Pressure 155/57 H 143/67 H 134/60 Pulse Oximetry 100 93 L 100 Intake & Output 06/22/18 06/23/18 06/23/18 18:59 06:59 18:59 Intake Total 474 / 474 274 / 274 294 / 294 Output Total 500 / 500 300 / 300 Balance -26 / -26 -26 / -26 294 / 294 Weight 61.6 kg Intake: IV 274 / 274 274 / 274 54 / 54 Cerebyx Inj 200 MGPE In NS Inj 54 / 54 54 / 54 54 / 54 50 ML @ 216 mls/hr IV.SIG Q8HR [facility] Rx#:[id number] Vimpat Inj 50 MG In NS Inj 100 105 / 105 105 / 105 ML @ 105 mls/hr IV.SIG Q12H [facility] Rx#:[id number] Keppra Inj 1,500 MG In NS Inj 115 / 115 115 / 115 100 ML @ 400 mls/hr IV.SIG Q12H [facility] Rx#:[id number] Oral 200 / 200 240 / 240 Output: Urine 500 / 500 300 / 300 Other: # Incontinent Voids 1 Date of Last Bowel Movement 06/19/18 # Bowel Movements 0 Narrative: A&O to person, place, somewhat pleasantly confused Moves all extremities full strength Cranial incision c/d/i - Urinary Catheter Management Female External Cath placed during this visit: no Reason for continuing: Not indwelling catheter Indwelling Urethral Catheter Cath placed during this visit: yes, but has since been removed by the nurse Reason for continuing: Decision to DC catheter Insertion date: 06/05/18 Insertion time: 08:30 Removal date: 06/16/18 Removal time: 21:51 Assessment and Plan - Plan 78 yo female with vague constellation of symptoms GCS-[address] shows 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 hemorrhagic mass Will follow with you 05/30/18: cont neuro checks in ICU Dr. 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 at midnight on Monday night into Monday Minimize sedating meds, etc. 06/03/18: Appears to be a bit more encephalopathic today, possible contribution of hospital delirium versus her mild hydrocephalus, though favor delirium since her level of alertness remains stable Dr. 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 at midnight tonight Continue to minimize sedating meds, etc. 06/04/18: surgery rescheduled for tomorrow morning patient may resume diet today, [facility] tonight cont hold Plavix 06/05/18 in OR for left frontal cranitomy for resection of intraventricular tumor by Dr. Palacios 06/06/18: POD #1. pt had seizure last night requiring intubation. She has been started on Keppra for seizures. On exam she opens eyes and follows commands. Postoperative MRI Brain w/wo contrast has been ordered and pending. Obtain EEG to assess seizures. Continue ventriculostomy draining, add ICP monitoring. Start sq lovenox for dvt prophylaxis. Will follow. 06/07/18: POD #2. patient neurologically stable, opens eyes and follows commands. Postoperative MRI Brain reviewed by neurosurgery team. Spot EEG reports no ongoing seizures, with high amplitude sharp waves on left?breach rhythm. Critical care plans on extubation today. Continue ventriculostomy draining at 10 mmHg. Final pathology pending. Neurology following for seizure management. Will follow. 06/08/18: POD #3. patient neurologically stable, opens eyes and follows commands. Ventriculostomy draining well with controlled ICPs, will continue at 10mmHg. Pathology still pending. cont seizure management per Neurology. dw critical care. will follow. 06/09/2018 POD#4 Remains Neurologically stable, follows commands Stop sedation wean ventilator to CPAP 5 x 12 and FiO2 30% Continue DuoNeb nebs 4 times daily. Check respiratory parameters and consider extubation Agree with Symbicort 160 about 4.5 mcg 1 puff twice daily and Solu-Medrol 40 mg IV twice daily Continue EVD Would maintain SBP 140-160 to improve CPP. 06/10/2018 POD#5 Seizure yesterday, and last night, have increased Cerebyx and Keppra D/C'ed Barbs would prefer to maintain on 2 agents and high therapeutic levels of Cerebyx, usually best with brain tumors Free Dilantin levels not easily obtainable here. Lets keep level around 20 with standard level remains Neurologically stable wean ventilator to CPAP 5 x 12 and FiO2 30% and if OK, may extubate from Neurosurgical standpoint. 06/11/18 POD #6 seizures controlled overnight, will continue Cerebyx 200 tid and Keppra 1500 bid. Dilantin levels 17.6 today continue critical care - vent weaning - CPAP trials cont EVD draining at 5 mmHg final pathology still pending will follow 06/12/18 POD #7 pt failed extubation yesterday, reintubated- critical care managing repeat EEG 06/11/18 abnormal with sharp activities left hemisphere dilantin levels 18.8 this morning cont current anticonvulsants, will repeat EEG today obtained follow up CT Brain this morning which was reviewed by Dr. Perdue, EVD raised to 15 mmHg neuro exam today appears better final pathology still pending 06/13/18 POD #8 neurologically she is awake, alert EEG yesterday 06/12/18 - mod encephalopathy, no reports of any seizure activities cont current anticonvulsants, Dilantin levels trending up pending today, started on Zosyn for gram neg rods in sputum - per critical care cont EVD challenge, cont at 15 mmHg today, plan to clamp tomorrow will follow 06/14/18 POD #9 neurologically remains awake and alert Ventriculostomy drain clamped today, follow up CT Head tomorrow am will follow 06/15/18: POD #10 neuro exam with no changes, f/u CT Head post EVD clamping reviewed by neurosurgery team, ventriculostomy drain removed, using sterile technique single stitch place, patient tolerated procedure well cont critical care management seizures controlled, continue current anticonvulsants FINAL PATHOLOGY: LOW GRADE NEOPLASM, MOST CONSISTENT WITH PILOCYTIC ASTROCYTOMA ; 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 current management Discussed Path with patient's son 06/17/2018 POD#12 Neuro: no sig. changes seizures controlled aggressive CPAP trials today DPH level 5.5 Bolused with 500 mgs. cont. ICU 06/18/2018 no neurological changes continue CPAP trials, vent wean to extubate remove surgical mamadou Dr. 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 Snell - continue CPAP, ?extubate pulmonology also following 06/20/2018 patient extubated, neuro exam unchanged, stable reconsult medical oncology for reeval for poss chemotherapy for pilocytic astrocytoma radiation oncology eval pending will follow 06/21/2018 neuro exam relatively stable, she waxes and wanes- dw nursing she is stable from NRS standpoint for a step down unit, radiation oncology for work up outpatient and potential xrt appreciate oncology reeval: there is no chemotherapy to offer for the low grade astrocytoma 06/22/2018 continue physical, occupation, and speech therapy increase activity, OOB to chair cont present care will follow 06/23/2018 continue physical, occupation, and speech therapy increase activity, OOB to chair cont present care will follow
--- NOTE | 2018-06-23 17:54 | P.PN ---
Subjective Interval history: Remains confused but seems more alert. O2 sats 96 on 2 L Starting to take a soft diet. Has no fever. Physical Exam Vital signs: Vital Signs 06/22/18 20:00 06/22/18 20:43 06/22/18 21:27 Temperature 98.5 F Pulse Rate 99 H 78 Respiratory Rate 16 18 20 Blood Pressure 149/69 H Pulse Oximetry 98 98 06/23/18 00:00 06/23/18 00:13 06/23/18 04:00 Temperature 97.5 F L Pulse Rate 92 H Respiratory Rate 16 18 16 Blood Pressure 140/65 Pulse Oximetry 100 06/23/18 05:18 06/23/18 07:46 06/23/18 11:51 Temperature 97.8 F 97.3 F L 97.7 F Pulse Rate 83 67 77 Respiratory Rate 18 18 18 Blood Pressure 155/57 H 143/67 H 134/60 Pulse Oximetry 100 93 L 100 06/23/18 16:00 Temperature 97.8 F Pulse Rate 81 Respiratory Rate 18 Blood Pressure 122/58 L Pulse Oximetry 98 Intake & Output 06/22/18 06/23/18 06/23/18 18:59 06:59 18:59 Intake Total 474 / 474 274 / 274 649 / 649 Output Total 500 / 500 300 / 300 Balance -26 / -26 -26 / -26 649 / 649 Weight 61.6 kg Intake: IV 274 / 274 274 / 274 169 / 169 Cerebyx Inj 200 MGPE In NS Inj 54 / 54 54 / 54 54 / 54 50 ML @ 216 mls/hr IV.SIG Q8HR [facility] Rx#:[id number] Vimpat Inj 50 MG In NS Inj 100 105 / 105 105 / 105 ML @ 105 mls/hr IV.SIG Q12H [facility] Rx#:[id number] Keppra Inj 1,500 MG In NS Inj 115 / 115 115 / 115 115 / 115 100 ML @ 400 mls/hr IV.SIG Q12H [facility] Rx#:[id number] Oral 200 / 200 480 / 480 Output: Urine 500 / 500 300 / 300 Other: # Incontinent Voids 1 Date of Last Bowel Movement 06/19/18 # Bowel Movements 0 Narrative: A&O to person, place, somewhat pleasantly confused GENERAL: Elderly white female in no acute distress. SKIN: Warm and dry. HEAD: Atraumatic. Normocephalic. EYES: Pupils equal and round. No scleral icterus. No injection or drainage. ENT: No nasal bleeding or discharge. Mucous membranes pink and moist. NECK: Trachea midline. No JVD. CARDIOVASCULAR: Regular rate and rhythm. RESPIRATORY: No accessory muscle use. Few wheezes scattered in the right lung field. Breath sounds equal bilaterally. GASTROINTESTINAL: Abdomen soft, non-tender, nondistended. Hepatic and splenic margins not palpable. MUSCULOSKELETAL: Extremities without clubbing, cyanosis, or edema. No obvious deformities. NEUROLOGICAL: Awake and responds to commands and tries to talk. Moves her legs but seems weak. PSYCHIATRIC: Cannot assess - Urinary Catheter Management Female External Cath placed during this visit: no Reason for continuing: Not indwelling catheter Indwelling Urethral Catheter Cath placed during this visit: yes, but has since been removed by the nurse Reason for continuing: Decision to DC catheter Insertion date: 06/05/18 Insertion time: 08:30 Removal date: 06/16/18 Removal time: 21:51 Results - Labs CBC & Chem 7: 06/22/18 04:28 06/22/18 04:28 Assessment and Plan - Assessment (1) COPD (chronic obstructive pulmonary disease) Code(s): J44.9 - Chronic obstructive pulmonary disease, unspecified Status: Acute (2) Right upper lobe pulmonary nodule Code(s): R91.1 - Solitary pulmonary nodule Status: Acute (3) Intraventricular hemorrhage, nontraumatic Code(s): I61.5 - Nontraumatic intracerebral hemorrhage, intraventricular Status: Acute (4) Hypertensive emergency Code(s): I16.1 - Hypertensive emergency Status: Acute (5) Metabolic encephalopathy Code(s): G93.41 - Metabolic encephalopathy Status: Acute (6) Altered mental status Code(s): R41.82 - Altered mental status, unspecified Status: Acute (7) History of peripheral arterial disease Code(s): Z86.79 - Personal history of other diseases of the circulatory system Status: Chronic (8) History of hypertension Code(s): Z86.79 - Personal history of other diseases of the circulatory system Status: Chronic (9) Cessation of tobacco use in previous 12 months Code(s): Z87.891 - Personal history of nicotine dependence Status: Chronic - Plan 1 continue O2 nasal cannula 2 L 2. Continue DuoNeb nebs 3 times daily. 3. Chest x-ray in a.m. 4. Workup for lung mass when clinically stable 5. Physical therapy 6 Symbicort 160 about 4.5 mcg 1 puff twice daily 7. BMP CBC 9. Tube feedings at 50 cc/h Jevity 10. Continue Decadron as ordered 11. DC BiPAP. (6) Altered mental status Qualifiers: Altered mental status type: unspecified Qualified Code(s): R41.82 - Altered mental status, unspecified
[2018-06-24] MEDS: Fosphenytoin Inj 200 MGPE in Sodium Chlor 0.9% Inj 50 ML IV.SIG SCH ×3 (05:18→22:20)
[2018-06-24] MEDS: Artificial Tears Opth Drops 15 ML Bottle EACH EYE SCH ×3 (05:18→22:20)
[2018-06-24] MEDS: Lacosamide Inj 50 MG in Sodium Chlor 0.9% Inj 100 ML IV.SIG SCH ×2 (05:42→17:38)
--- NOTE | 2018-06-24 09:16 | P.PNNS ---
Subjective Interval history: Doing well - groggy, conversant and clear Physical Exam Vital signs: Vital Signs 06/23/18 11:51 06/23/18 16:00 06/23/18 20:50 Temperature 97.7 F 97.8 F 98.3 F Pulse Rate 77 81 90 Respiratory Rate 18 18 18 Blood Pressure 134/60 122/58 L 127/58 L Pulse Oximetry 100 98 99 06/24/18 00:40 06/24/18 04:07 06/24/18 07:29 Temperature 97.5 F L 98.0 F 97.4 F L Pulse Rate 79 83 62 Respiratory Rate 18 18 18 Blood Pressure 126/68 132/59 L 127/58 L Pulse Oximetry 100 99 97 06/24/18 08:00 Temperature Pulse Rate Respiratory Rate 16 Blood Pressure Pulse Oximetry Intake & Output 06/23/18 06/24/18 06/24/18 18:59 06:59 18:59 Intake Total 808 / 808 223 / 223 Output Total 400 / 400 Balance 808 / 808 -177 / -177 Weight 60.9 kg Intake: IV 328 / 328 223 / 223 Cerebyx Inj 200 MGPE In NS Inj 108 / 108 108 / 108 50 ML @ 216 mls/hr IV.SIG Q8HR [facility] Rx#:[id number] Vimpat Inj 50 MG In NS Inj 100 105 / 105 ML @ 105 mls/hr IV.SIG Q12H [facility] Rx#:[id number] Keppra Inj 1,500 MG In NS Inj 115 / 115 115 / 115 100 ML @ 400 mls/hr IV.SIG Q12H [facility] Rx#:[id number] Oral 480 / 480 Output: Urine 400 / 400 Other: # Incontinent Voids 1 Date of Last Bowel Movement 06/19/18 06/19/18 Narrative: A&O person, place, pleasantly confused Incision c/d/i Motor 5/5 UE/ LE resting comfortably in bed, just woken from sleep - Urinary Catheter Management Female External Cath placed during this visit: no Reason for continuing: Not indwelling catheter Indwelling Urethral Catheter Cath placed during this visit: yes, but has since been removed by the nurse Reason for continuing: Decision to DC catheter Insertion date: 06/05/18 Insertion time: 08:30 Removal date: 06/16/18 Removal time: 21:51 Assessment and Plan - Plan 78 yo female with vague constellation of symptoms GCS-[address] shows 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 hemorrhagic mass Will follow with you 05/30/18: cont neuro checks in ICU Dr. 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 at midnight on Monday night into Monday Minimize sedating meds, etc. 06/03/18: Appears to be a bit more encephalopathic today, possible contribution of hospital delirium versus her mild hydrocephalus, though favor delirium since her level of alertness remains stable Dr. 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 at midnight tonight Continue to minimize sedating meds, etc. 06/04/18: surgery rescheduled for tomorrow morning patient may resume diet today, NPO at [facility] tonight cont hold Plavix 06/05/18 in OR for left frontal cranitomy for resection of intraventricular tumor by Dr. Palacios 06/06/18: POD #1. pt had seizure last night requiring intubation. She has been started on Keppra for seizures. On exam she opens eyes and follows commands. Postoperative MRI Brain w/wo contrast has been ordered and pending. Obtain EEG to assess seizures. Continue ventriculostomy draining, add ICP monitoring. Start sq lovenox for dvt prophylaxis. Will follow. 06/07/18: POD #2. patient neurologically stable, opens eyes and follows commands. Postoperative MRI Brain reviewed by neurosurgery team. Spot EEG reports no ongoing seizures, with high amplitude sharp waves on left?breach rhythm. Critical care plans on extubation today. Continue ventriculostomy draining at 10 mmHg. Final pathology pending. Neurology following for seizure management. Will follow. 06/08/18: POD #3. patient neurologically stable, opens eyes and follows commands. Ventriculostomy draining well with controlled ICPs, will continue at 10mmHg. Pathology still pending. cont seizure management per Neurology. dw critical care. will follow. 06/09/2018 POD#4 Remains Neurologically stable, follows commands Stop sedation wean ventilator to CPAP 5 x 12 and FiO2 30% Continue DuoNeb nebs 4 times daily. Check respiratory parameters and consider extubation Agree with Symbicort 160 about 4.5 mcg 1 puff twice daily and Solu-Medrol 40 mg IV twice daily Continue EVD Would maintain SBP 140-160 to improve CPP. 06/10/2018 POD#5 Seizure yesterday, and last night, have increased Cerebyx and Keppra D/C'ed Barbs would prefer to maintain on 2 agents and high therapeutic levels of Cerebyx, usually best with brain tumors Free Dilantin levels not easily obtainable here. Lets keep level around 20 with standard level remains Neurologically stable wean ventilator to CPAP 5 x 12 and FiO2 30% and if OK, may extubate from Neurosurgical standpoint. 06/11/18 POD #6 seizures controlled overnight, will continue Cerebyx 200 tid and Keppra 1500 bid. Dilantin levels 17.6 today continue critical care - vent weaning - CPAP trials cont EVD draining at 5 mmHg final pathology still pending will follow 06/12/18 POD #7 pt failed extubation yesterday, reintubated- critical care managing repeat EEG 06/11/18 abnormal with sharp activities left hemisphere dilantin levels 18.8 this morning cont current anticonvulsants, will repeat EEG today obtained follow up CT Brain this morning which was reviewed by Dr. Perdue, EVD raised to 15 mmHg neuro exam today appears better final pathology still pending 06/13/18 POD #8 neurologically she is awake, alert EEG yesterday 06/12/18 - mod encephalopathy, no reports of any seizure activities cont current anticonvulsants, Dilantin levels trending up pending today, started on Zosyn for gram neg rods in sputum - per critical care cont EVD challenge, cont at 15 mmHg today, plan to clamp tomorrow will follow 06/14/18 POD #9 neurologically remains awake and alert Ventriculostomy drain clamped today, follow up CT Head tomorrow am will follow 06/15/18: POD #10 neuro exam with no changes, f/u CT Head post EVD clamping reviewed by neurosurgery team, ventriculostomy drain removed, using sterile technique single stitch place, patient tolerated procedure well cont critical care management seizures controlled, continue current anticonvulsants FINAL PATHOLOGY: LOW GRADE NEOPLASM, MOST CONSISTENT WITH PILOCYTIC ASTROCYTOMA ; 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 current management Discussed Path with patient's son 06/17/2018 POD#12 Neuro: no sig. changes seizures controlled aggressive CPAP trials today DPH level 5.5 Bolused with 500 mgs. cont. ICU 06/18/2018 no neurological changes continue CPAP trials, vent wean to extubate remove surgical mamadou Dr. 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 Snell - continue CPAP, ?extubate pulmonology also following 06/20/2018 patient extubated, neuro exam unchanged, stable reconsult medical oncology for reeval for poss chemotherapy for pilocytic astrocytoma radiation oncology eval pending will follow 06/21/2018 neuro exam relatively stable, she waxes and wanes- dw nursing she is stable from N[facility] standpoint for a step down unit, radiation oncology for work up outpatient and potential xrt appreciate oncology reeval: there is no chemotherapy to offer for the low grade astrocytoma 06/22/2018 continue physical, occupation, and speech therapy increase activity, OOB to chair cont present care will follow 06/23/2018 continue physical, occupation, and speech therapy increase activity, OOB to chair cont present care will follow 06/24/2018 continue physical, occupation, and speech therapy increase activity, OOB to chair cont present care appears to be gradually improving. will follow
[2018-06-24] MEDS: Sodium Chloride 1 GM Tablet PO SCH ×2 (10:12→22:18)
[2018-06-24] MEDS: Senna/Docusate Sodium 8.6/50 MG Tablet PO SCH ×2 (10:12→22:17)
[2018-06-24] MEDS: Lisinopril 20 MG Tablet PO SCH (10:20)
[2018-06-24] MEDS: amLODIPine 5 MG Tablet PO SCH (10:21)
[2018-06-24] MEDS: Metoprolol Tartrate 50 MG Tablet PO SCH ×2 (10:21→22:16)
[2018-06-24] MEDS: Enoxaparin Inj 40 MG/0.4 ML Syringe SQ SCH (10:27)
[2018-06-24] MEDS: Budesonide-Formoterol 160/4.5 MCG 6 GM Inhaler INH SCH ×2 (10:29→22:20)
[2018-06-24] MEDS: levETIRAcetam Inj 1,500 MG in Sodium Chlor 0.9% Inj 100 ML IV.SIG SCH ×2 (12:12→23:48)
--- NOTE | 2018-06-24 13:24 | P.PNIM ---
Subjective Interval history: awake adn alert did not talk with me during exam but per staff she did earlier I think she speaks more or more interactive when family is around periweak catheter in place- but no output in bag on exam- distended bladder Physical Exam Vital signs: Vital Signs 06/23/18 16:00 06/23/18 20:50 06/24/18 00:40 Temperature 97.8 F 98.3 F 97.5 F L Pulse Rate 81 90 79 Respiratory Rate 18 18 18 Blood Pressure 122/58 L 127/58 L 126/68 Pulse Oximetry 98 99 100 06/24/18 04:07 06/24/18 07:29 06/24/18 08:00 Temperature 98.0 F 97.4 F L Pulse Rate 83 62 Respiratory Rate 18 18 16 Blood Pressure 132/59 L 127/58 L Pulse Oximetry 99 97 06/24/18 11:22 Temperature 97.6 F Pulse Rate 94 H Respiratory Rate 18 Blood Pressure 143/63 H Pulse Oximetry 97 Intake & Output 06/23/18 06/24/18 06/24/18 18:59 06:59 18:59 Intake Total 808 / 808 223 / 223 480 / 480 Output Total 400 / 400 200 / 200 Balance 808 / 808 -177 / -177 280 / 280 Weight 60.9 kg Intake: IV 328 / 328 223 / 223 Cerebyx Inj 200 MGPE In NS Inj 108 / 108 108 / 108 50 ML @ 216 mls/hr IV.SIG Q8HR ALEXIS Rx#:[id number] Vimpat Inj 50 MG In NS Inj 100 105 / 105 ML @ 105 mls/hr IV.SIG Q12H ALEXIS Rx#:[id number] Keppra Inj 1,500 MG In NS Inj 115 / 115 115 / 115 100 ML @ 400 mls/hr IV.SIG Q12H ALEXIS Rx#:[id number] Oral 480 / 480 480 / 480 Output: Urine 400 / 400 200 / 200 Other: # Incontinent Voids 1 Date of Last Bowel Movement 06/19/18 06/19/18 Narrative: awake and alert, eyes open but not interactive track and gripped when both hands held anciteric neck supple lungs- no rales regular rhythm'abdomen- bladder distended and hard hand gripped when held LE extremties= mulitpodus boots in palce Urinary Catheter Management Female External: Cath placed during this visit: no Reason for continuing: Not indwelling catheter Indwelling Urethral Catheter: Cath placed during this visit: yes, but has since been removed by the nurse Reason for continuing: Decision to DC catheter Insertion date: 06/05/18 Insertion time: 08:30 Removal date: 06/16/18 Removal time: 21:51 Results Labs CBC & Chem 7: 06/22/18 04:28 06/22/18 04:28 Assessment and Plan (1) COPD (chronic obstructive pulmonary disease): Code(s): J44.9 - Chronic obstructive pulmonary disease, unspecified Status: Acute (2) Right upper lobe pulmonary nodule: Code(s): R91.1 - Solitary pulmonary nodule Status: Acute (3) Intraventricular hemorrhage, nontraumatic: Code(s): I61.5 - Nontraumatic intracerebral hemorrhage, intraventricular Status: Acute (4) Hypertensive emergency: Code(s): I16.1 - Hypertensive emergency Status: Acute (5) Metabolic encephalopathy: Code(s): G93.41 - Metabolic encephalopathy Status: Acute (6) Altered mental status: Code(s): R41.82 - Altered mental status, unspecified Status: Acute (7) History of peripheral arterial disease: Code(s): Z86.79 - Personal history of other diseases of the circulatory system Status: Chronic (8) History of hypertension: Code(s): Z86.79 - Personal history of other diseases of the circulatory system Status: Chronic (9) Cessation of tobacco use in previous 12 months: Code(s): Z87.891 - Personal history of nicotine dependence Status: Chronic Plan 78-year-old white female was transferred from [facility] with 1 week history of memory loss hallucination and found to have subacute anterior ventricular hemorrhage and 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 Kapadia review case recommended no chemo and refer to radiation oncology. Per oncology, Dr. 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 Perez states no chemo at this time. Dr. Clemons has been consulted and recommends outpatient follow-up for radiation treatment -Tight blood pressure control with nicardipine e and IV labetalol as needed, and PO meds, see below -Keep systolic blood pressure less than 150 -Supplement multivitamin thiamine given daily alcohol use -Watch closely for alcohol withdrawal -Mild alcohol withdrawal contributing to agitation Haldol as needed -EEG originally negative for seizures -Repeat EEG 06/06 field possible left frontal breakthrough. -MRA 06/06 brain revealed left lateral ventricle resection, intervertebral hemorrhage slightly decreased. Small subdural hematoma. Postsurgical. Rightward shift 5 mm. Most recent EEG negative for acute seizure activity Currently on fosphenytoin 200 mg every 8 hours. Corrected for free Dilantin, level 15 On levetiracetam 1500 mg IV twice daily. Continue lacosamide 50 mg twice daily per neurosurgery request Neurosurgery managing antiepileptics. No obvious change in level of sedation from AEDs Encephalopathy improved over the past 72 hours currently sitting up in geriatric chair Acute hypoxic and hypercarbic respiratory failure-now extubated and on nasal cannula 2 L oxygen Previous tobacco use Right upper lobe speak with a mass HCAP ventilator associated pneumonia -Pulmonology consulted for right upper lobe mass concerning for primary malignancy, with adrenal mass -Pulmonary Dr. Evans suggesting CT-guided biopsy and PET scan once clinically more stable -Reintubated and ISC after PACU 06/05. PT 7 days a week. Continue to breathe comfortably 48 hours after extubation, protects airway well - work up when stable Hypertensive emergency History of hypertension Peripheral arterial disease -Continue home enalapril 40 mg daily and amlodipine 5 mg daily increased to 10 mg daily, continue pravastatin 40 mg daily. metoprolol tartrate 50 mg twice daily -Continue holding clopidogrel until cleared by neurosurgery -Continue to hold antihypertensive drugs Left adrenal mass 1.3 x 1.2 cm Colonic diverticulosis Right liver mass versus cyst Elevated LFTs lansoprazole for GI prophylax. Docusate sodium/senna 1 tablet twice daily for bowel regimen -Follow blood glucose closely -Continue with swallow evaluation, continue tube feeding for now 06/22 Passed swallow evaluation on pured diet and honey thickened liquid needs assistance and supervision Enterobacter cloaca K/strep pneumonia Antibiotic treatment ended 06/18 Leukocytosisresolved Normocytic anemia likely due to malignancy Bladder distention- Acute urinary retention - insert song today 06/24- d/w staff- document output DVT PROPH: -Bilateral lower extremity SCDs. Continue physical therapy, speech therapy, add occupational therapy Progress Note: Quality VTE CM consult - will need placement Progress Note: Quality VTE Deep Vein Thrombosis/Pulmonary Embolism Present on Admission: No _ (1) Altered mental status Qualifiers: Altered mental status type: unspecified Coma depth: Coma timing: Qualified Code(s): R41.82 - Altered mental status, unspecified (2) COPD (chronic obstructive pulmonary disease) Qualifiers: COPD type: Chronic bronchitis type: Emphysema type:
--- NOTE | 2018-06-24 16:18 | P.PN ---
Subjective Interval history: No new change. Awake and seems to respond sometimes. On O2 nasal cannula saturation 96. Urine output was good. Tolerates feeds Physical Exam Vital signs: Vital Signs 06/23/18 20:50 06/24/18 00:40 06/24/18 04:07 Temperature 98.3 F 97.5 F L 98.0 F Pulse Rate 90 79 83 Respiratory Rate 18 18 18 Blood Pressure 127/58 L 126/68 132/59 L Pulse Oximetry 99 100 99 06/24/18 07:29 06/24/18 08:00 06/24/18 11:22 Temperature 97.4 F L 97.6 F Pulse Rate 62 94 H Respiratory Rate 18 16 18 Blood Pressure 127/58 L 143/63 H Pulse Oximetry 97 97 06/24/18 12:00 06/24/18 15:39 Temperature 97.6 F Pulse Rate 89 Respiratory Rate 16 18 Blood Pressure 122/60 Pulse Oximetry 97 Intake & Output 06/23/18 06/24/18 06/24/18 18:59 06:59 18:59 Intake Total 808 / 808 328 / 328 595 / 595 Output Total 400 / 400 200 / 200 Balance 808 / 808 -72 / -72 395 / 395 Weight 60.9 kg Intake: IV 328 / 328 328 / 328 115 / 115 Cerebyx Inj 200 MGPE In NS Inj 108 / 108 108 / 108 50 ML @ 216 mls/hr IV.SIG Q8HR ALEXIS Rx#:[id number] Vimpat Inj 50 MG In NS Inj 100 105 / 105 105 / 105 ML @ 105 mls/hr IV.SIG Q12H ALEXIS Rx#:[id number] Keppra Inj 1,500 MG In NS Inj 115 / 115 115 / 115 115 / 115 100 ML @ 400 mls/hr IV.SIG Q12H ALEXIS Rx#:[id number] Oral 480 / 480 480 / 480 Output: Urine 400 / 400 200 / 200 Other: # Incontinent Voids 1 Date of Last Bowel Movement 06/19/18 06/19/18 Narrative: A&O person, place, pleasantly confused GENERAL: Elderly white female in no distress SKIN: Warm and dry. HEAD: Atraumatic. Normocephalic. EYES: Pupils equal and round. No scleral icterus. No injection or drainage. ENT: No nasal bleeding or discharge. Mucous membranes pink and moist. NECK: Trachea midline. No JVD. CARDIOVASCULAR: Regular rate and rhythm. RESPIRATORY: No accessory muscle use. Occasional wheezes bilaterally and breath sounds equal bilaterally. GASTROINTESTINAL: Abdomen soft, non-tender, nondistended. Hepatic and splenic margins not palpable. MUSCULOSKELETAL: Extremities without clubbing, cyanosis, or edema. No obvious deformities. NEUROLOGICAL: Awake and alert. No obvious cranial nerve deficits. Moves feet. PSYCHIATRIC: Cannot assess - Urinary Catheter Management Female External Cath placed during this visit: yes Reason for continuing: Acute urinary retention Insertion date: 06/24/18 Insertion time: 14:45 Indwelling Urethral Catheter Cath placed during this visit: yes, but has since been removed by the nurse Reason for continuing: Decision to DC catheter Insertion date: 06/05/18 Insertion time: 08:30 Removal date: 06/16/18 Removal time: 21:51 Results - Labs CBC & Chem 7: 06/22/18 04:28 06/22/18 04:28 Assessment and Plan - Assessment (1) COPD (chronic obstructive pulmonary disease) Code(s): J44.9 - Chronic obstructive pulmonary disease, unspecified Status: Acute (2) Right upper lobe pulmonary nodule Code(s): R91.1 - Solitary pulmonary nodule Status: Acute (3) Intraventricular hemorrhage, nontraumatic Code(s): I61.5 - Nontraumatic intracerebral hemorrhage, intraventricular Status: Acute (4) Hypertensive emergency Code(s): I16.1 - Hypertensive emergency Status: Acute (5) Metabolic encephalopathy Code(s): G93.41 - Metabolic encephalopathy Status: Acute (6) Altered mental status Code(s): R41.82 - Altered mental status, unspecified Status: Acute (7) History of peripheral arterial disease Code(s): Z86.79 - Personal history of other diseases of the circulatory system Status: Chronic (8) History of hypertension Code(s): Z86.79 - Personal history of other diseases of the circulatory system Status: Chronic (9) Cessation of tobacco use in previous 12 months Code(s): Z87.891 - Personal history of nicotine dependence Status: Chronic - Plan 1 continue O2 nasal cannula 2 L 2. Continue DuoNeb nebs 3 times daily. 3. Incentive spirometry every 3 hours 4. Workup for lung mass when clinically stable 5. Continue physical therapy 6 Symbicort 160 about 4.5 mcg 1 puff twice daily 7. BMP CBC 9. Tube feedings at 40 cc/h Jevity 10. Continue Decadron as ordered (6) Altered mental status Qualifiers: Altered mental status type: unspecified Qualified Code(s): R41.82 - Altered mental status, unspecified
--- NOTE | 2018-06-24 19:58 | XR ---
EXAM DATE: 06/24/2018 7:51 PM EST AGE/SEX: 78 years / Female INDICATIONS: Evaluate infiltrate CLINICAL DATA: This is the patient's subsequent encounter. Patient reports that signs and symptoms h ave been present for 2 weeks and indicates a pain score of Nonresponsive. MEDICAL/SURGICAL HISTORY: . Cerebrovascular disease None. COMPARISON: [facility] [place], CHEST 1V SINGLE AP, 06/16/2018. . FINDINGS: A single AP view of the chest demonstrates the lungs to be symmetrically aerated without evidence of mass, infiltrate or effusion. The cardiomediastinal contours are unremarkable. Osseous structures a re intact. Peripheral calcified breast implants bilaterally. Overlying the right upper lobe is a rectangular almost square shaped density which was not present on the previous film therefore I suspect it is external to the patient. CONCLUSION: No obvious infiltrate or mass. No interval change. Electronically signed by: Dany Dennison MD Board Certified Radiologist 06/24/2018 7:56 PM EST
[2018-06-25] MEDS: Lacosamide Inj 50 MG in Sodium Chlor 0.9% Inj 100 ML IV.SIG SCH ×2 (04:50→18:28)
[2018-06-25] MEDS: Artificial Tears Opth Drops 15 ML Bottle EACH EYE SCH ×3 (04:51→23:39)
[2018-06-25] MEDS: Fosphenytoin Inj 200 MGPE in Sodium Chlor 0.9% Inj 50 ML IV.SIG SCH ×3 (05:55→23:40)
[2018-06-25] MEDS: Enoxaparin Inj 40 MG/0.4 ML Syringe SQ SCH (08:11)
[2018-06-25] MEDS: amLODIPine 5 MG Tablet PO SCH (08:12)
[2018-06-25] MEDS: Senna/Docusate Sodium 8.6/50 MG Tablet PO SCH ×2 (08:12→23:38)
[2018-06-25] MEDS: Sodium Chloride 1 GM Tablet PO SCH ×2 (08:12→23:39)
[2018-06-25] MEDS: Metoprolol Tartrate 50 MG Tablet PO SCH ×2 (08:12→23:38)
[2018-06-25] MEDS: Lisinopril 20 MG Tablet PO SCH (08:13)
[2018-06-25] MEDS: Budesonide-Formoterol 160/4.5 MCG 6 GM Inhaler INH SCH ×2 (08:15→23:39)
--- NOTE | 2018-06-25 10:12 | P.PNIM ---
Subjective Interval history: patientis awake and alert on exam made eye contact spioke some "Oh my God" gripped when left hand held seen with staff nurse Physical Exam Vital signs: Vital Signs 06/24/18 11:22 06/24/18 12:00 06/24/18 15:39 Temperature 97.6 F 97.6 F Pulse Rate 94 H 89 Respiratory Rate 18 16 18 Blood Pressure 143/63 H 122/60 Pulse Oximetry 97 97 06/24/18 20:19 06/24/18 23:13 06/25/18 00:30 Temperature 99.1 F 98.2 F Pulse Rate 106 H 83 Respiratory Rate 18 18 Blood Pressure 119/55 L 121/58 L Pulse Oximetry 96 96 98 06/25/18 05:01 06/25/18 07:33 Temperature 98.3 F 98.1 F Pulse Rate 86 82 Respiratory Rate 18 18 Blood Pressure 143/67 H 130/61 Pulse Oximetry 95 98 Intake & Output 06/24/18 06/25/18 06/25/18 18:59 06:59 18:59 Intake Total 994 / 994 169 / 169 Output Total 1300 / 1300 425 / 425 Balance -306 / -306 -256 / -256 Weight 60.1 kg Intake: IV 274 / 274 169 / 169 Cerebyx Inj 200 MGPE In NS Inj 54 / 54 54 / 54 50 ML @ 216 mls/hr IV.SIG Q8HR ALEXIS Rx#:[id number] Vimpat Inj 50 MG In NS Inj 100 105 / 105 ML @ 105 mls/hr IV.SIG Q12H ALEXIS Rx#:[id number] Keppra Inj 1,500 MG In NS Inj 115 / 115 115 / 115 100 ML @ 400 mls/hr IV.SIG Q12H ALEXIS Rx#:[id number] Oral 720 / 720 Output: Urine 1300 / 1300 425 / 425 Other: Date of Last Bowel Movement 06/19/18 06/19/18 Narrative: more awake and alert, made eye contact anciteric neck supple lungs- no rales regular rhythm abdomen- soft + bowel sounds song in place - placed 06/24 Urinary Catheter Management Female External: Cath placed during this visit: yes Reason for continuing: Acute urinary retention Insertion date: 06/24/18 Insertion time: 14:45 Indwelling Urethral Catheter: Cath placed during this visit: yes, but has since been removed by the nurse Reason for continuing: Decision to DC catheter Insertion date: 06/05/18 Insertion time: 08:30 Removal date: 06/16/18 Removal time: 21:51 Results Labs CBC & Chem 7: 06/22/18 04:28 06/22/18 04:28 Imaging Imaging: Impressions Chest X-Ray 06/24/18 00:00 CONCLUSION: No obvious infiltrate or mass. No interval change. Assessment and Plan (1) COPD (chronic obstructive pulmonary disease): Code(s): J44.9 - Chronic obstructive pulmonary disease, unspecified Status: Acute (2) Right upper lobe pulmonary nodule: Code(s): R91.1 - Solitary pulmonary nodule Status: Acute (3) Intraventricular hemorrhage, nontraumatic: Code(s): I61.5 - Nontraumatic intracerebral hemorrhage, intraventricular Status: Acute (4) Hypertensive emergency: Code(s): I16.1 - Hypertensive emergency Status: Acute (5) Metabolic encephalopathy: Code(s): G93.41 - Metabolic encephalopathy Status: Acute (6) Altered mental status: Code(s): R41.82 - Altered mental status, unspecified Status: Acute (7) History of peripheral arterial disease: Code(s): Z86.79 - Personal history of other diseases of the circulatory system Status: Chronic (8) History of hypertension: Code(s): Z86.79 - Personal history of other diseases of the circulatory system Status: Chronic (9) Cessation of tobacco use in previous 12 months: Code(s): Z87.891 - Personal history of nicotine dependence Status: Chronic Plan 78-year-old white female was transferred from [facility] with 1 week history of memory loss hallucination and found to have subacute anterior ventricular hemorrhage and 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 Kapadia review case recommended no chemo and refer to radiation oncology. Per oncology, Dr. 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 Perez states no chemo at this time. - Dr. Clemons has been consulted and recommends outpatient follow-up for radiation treatment -Tight blood pressure control with nicardipine e and IV labetalol as needed, and PO meds, see below -Keep systolic blood pressure less than 150 -Supplement multivitamin thiamine given daily alcohol use -Watch closely for alcohol withdrawal -Mild alcohol withdrawal contributing to agitation Haldol as needed -EEG originally negative for seizures -Repeat EEG 06/06 field possible left frontal breakthrough. -MRA 06/06 brain revealed left lateral ventricle resection, intervertebral hemorrhage slightly decreased. Small subdural hematoma. Postsurgical. Rightward shift 5 mm. Most recent EEG negative for acute seizure activity Currently on fosphenytoin 200 mg every 8 hours. Corrected for free Dilantin, level 15 On levetiracetam 1500 mg IV twice daily. Continue lacosamide 50 mg twice daily per neurosurgery request Neurosurgery managing antiepileptics. No obvious change in level of sedation from AEDs Encephalopathy improved over the past 72 hours currently sitting up in geriatric chair Acute hypoxic and hypercarbic respiratory failure-now extubated and on nasal cannula 2 L oxygen Previous tobacco use Right upper lobe speak with a mass HCAP ventilator associated pneumonia -Pulmonology consulted for right upper lobe mass concerning for primary malignancy, with adrenal mass -Pulmonary Dr. Evans suggesting CT-guided biopsy and PET scan once clinically more stable -Reintubated and ISC after PACU 06/05. PT 7 days a week. - on NC - protects airway well - work up when stable Hypertensive emergency History of hypertension Peripheral arterial disease -Continue home enalapril 40 mg daily and amlodipine 5 mg daily increased to 10 mg daily, continue pravastatin 40 mg daily. 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 Docusate sodium/senna 1 tablet twice daily for bowel regimen -Follow blood glucose closely -Continue with swallow evaluation 06/22 Passed swallow evaluation on pured diet and honey thickened liquid needs assistance and supervision off tube feedings Enterobacter cloaca K/strep pneumonia Antibiotic treatment ended 06/18 Leukocytosisresolved Normocytic anemia likely due to malignancy Acute urinary retention - placed song 06/24- d/w staff- document output- got 1725 cc - keep song- song care protocol - change q 30 days - consider voiding trial in the future DVT PROPH: -Bilateral lower extremity SCDs. Continue physical therapy, speech therapy, add occupational therapy Progress Note: Quality VTE CM consult - will need placement Progress Note: Quality VTE Deep Vein Thrombosis/Pulmonary Embolism Present on Admission: No _ (1) COPD (chronic obstructive pulmonary disease) Qualifiers: COPD type: Chronic bronchitis type: Emphysema type: (2) Altered mental status Qualifiers: Altered mental status type: unspecified Coma depth: Coma timing: Qualified Code(s): R41.82 - Altered mental status, unspecified
[2018-06-25] MEDS: levETIRAcetam Inj 1,500 MG in Sodium Chlor 0.9% Inj 100 ML IV.SIG SCH ×2 (13:18→22:31)
--- NOTE | 2018-06-25 19:21 | P.PN ---
Subjective Interval history: She is awake and seems to respond to some commands. On O2 nasal cannula maintaining sats over 95. Apparently taking some of her diet. 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 Physical Exam Vital signs: Vital Signs 06/24/18 20:19 06/24/18 23:13 06/25/18 00:30 Temperature 99.1 F 98.2 F Pulse Rate 106 H 83 Respiratory Rate 18 18 Blood Pressure 119/55 L 121/58 L Pulse Oximetry 96 96 98 06/25/18 05:01 06/25/18 07:33 06/25/18 11:37 Temperature 98.3 F 98.1 F 98.4 F Pulse Rate 86 82 82 Respiratory Rate 18 18 18 Blood Pressure 143/67 H 130/61 142/65 H Pulse Oximetry 95 98 94 L 06/25/18 15:24 Temperature 98 F Pulse Rate 87 Respiratory Rate 18 Blood Pressure 120/58 L Pulse Oximetry 93 L Intake & Output 06/25/18 06/25/18 06/26/18 06:59 18:59 06:59 Intake Total 169 / 169 328 / 328 Output Total 425 / 425 Balance -256 / -256 328 / 328 Weight 60.1 kg Intake: IV 169 / 169 328 / 328 Cerebyx Inj 200 MGPE In NS Inj 54 / 54 108 / 108 50 ML @ 216 mls/hr IV.SIG Q8HR ALEXIS Rx#:[id number] Vimpat Inj 50 MG In NS Inj 100 105 / 105 ML @ 105 mls/hr IV.SIG Q12H ALEXIS Rx#:[id number] Keppra Inj 1,500 MG In NS Inj 115 / 115 115 / 115 100 ML @ 400 mls/hr IV.SIG Q12H ALEXIS Rx#:[id number] Output: Urine 425 / 425 Other: Date of Last Bowel Movement 06/19/18 06/19/18 Narrative: A&O person, place, confused GENERAL: Elderly white female in no distress SKIN: Warm and dry. HEAD: Atraumatic. Normocephalic. EYES: Pupils equal and round. No scleral icterus. No injection or drainage. ENT: No nasal bleeding or discharge. Mucous membranes pink and moist. NECK: Trachea midline. No JVD. CARDIOVASCULAR: Regular rate and rhythm. RESPIRATORY: No accessory muscle use. Occasional wheezes bilaterally and few basal crackles. GASTROINTESTINAL: Abdomen soft, non-tender, nondistended. Hepatic and splenic margins not palpable. MUSCULOSKELETAL: Extremities without clubbing, cyanosis, or edema. No obvious deformities. NEUROLOGICAL: Awake and alert. Moves feet. PSYCHIATRIC: Cannot assess - Urinary Catheter Management Female External Cath placed during this visit: yes Reason for continuing: Acute urinary retention Insertion date: 06/24/18 Insertion time: 14:45 Indwelling Urethral Catheter Cath placed during this visit: yes, but has since been removed by the nurse Reason for continuing: Decision to DC catheter Insertion date: 06/05/18 Insertion time: 08:30 Removal date: 06/16/18 Removal time: 21:51 Results - Labs CBC & Chem 7: 06/22/18 04:28 06/22/18 04:28 - Imaging Impressions Chest X-Ray 06/24/18 00:00 CONCLUSION: No obvious infiltrate or mass. No interval change. Assessment and Plan - Assessment (1) COPD (chronic obstructive pulmonary disease) Code(s): J44.9 - Chronic obstructive pulmonary disease, unspecified Status: Acute (2) Right upper lobe pulmonary nodule Code(s): R91.1 - Solitary pulmonary nodule Status: Acute (3) Intraventricular hemorrhage, nontraumatic Code(s): I61.5 - Nontraumatic intracerebral hemorrhage, intraventricular Status: Acute (4) Hypertensive emergency Code(s): I16.1 - Hypertensive emergency Status: Acute (5) Metabolic encephalopathy Code(s): G93.41 - Metabolic encephalopathy Status: Acute (6) Altered mental status Code(s): R41.82 - Altered mental status, unspecified Status: Acute (7) History of peripheral arterial disease Code(s): Z86.79 - Personal history of other diseases of the circulatory system Status: Chronic (8) History of hypertension Code(s): Z86.79 - Personal history of other diseases of the circulatory system Status: Chronic (9) Cessation of tobacco use in previous 12 months Code(s): Z87.891 - Personal history of nicotine dependence Status: Chronic - Plan 1 continue O2 nasal cannula 2 L 2. Continue DuoNeb nebs 3 times daily. 3. Chest x-ray in a.m. 4. Workup for lung mass when clinically stable 5. Continue physical therapy 6 Symbicort 160 about 4.5 mcg 1 puff twice daily 7. BMP CBC in a.m. 9. Tube feedings at 40 cc/h Jevity 10. Continue Decadron as ordered (6) Altered mental status Qualifiers: Altered mental status type: unspecified Qualified Code(s): R41.82 - Altered mental status, unspecified
[2018-06-26] MEDS: Artificial Tears Opth Drops 15 ML Bottle EACH EYE SCH ×3 (04:40→22:05)
[2018-06-26] MEDS: Lacosamide Inj 50 MG in Sodium Chlor 0.9% Inj 100 ML IV.SIG SCH ×2 (04:43→16:57)
[2018-06-26] MEDS: Fosphenytoin Inj 200 MGPE in Sodium Chlor 0.9% Inj 50 ML IV.SIG SCH ×3 (05:10→22:07)
[2018-06-26] MEDS: Enoxaparin Inj 40 MG/0.4 ML Syringe SQ SCH (08:29)
[2018-06-26] MEDS: Sodium Chloride 1 GM Tablet PO SCH ×2 (08:30→22:06)
[2018-06-26] MEDS: Lisinopril 20 MG Tablet PO SCH (08:30)
[2018-06-26] MEDS: Senna/Docusate Sodium 8.6/50 MG Tablet PO SCH ×2 (08:30→22:06)
[2018-06-26] MEDS: Metoprolol Tartrate 50 MG Tablet PO SCH ×2 (08:30→22:05)
[2018-06-26] MEDS: amLODIPine 5 MG Tablet PO SCH (08:30)
[2018-06-26] MEDS: Budesonide-Formoterol 160/4.5 MCG 6 GM Inhaler INH SCH ×2 (08:31→22:07)
[2018-06-26 08:48] LABS: Anion Gap 7 meq/L (5-15); Blood Urea Nitrogen 6 mg/dL (7-18); Calcium 8.5 mg/dL (8.5-10.1); Carbon Dioxide 29.8 meq/L (21.0-32.0); Chloride 102 meq/L (98-107); Glomerular Filtration Rate Greater Than 89 mL/min (>89); Glucose,Random 120 mg/dL (74-106); Potassium 3.6 meq/L (3.5-5.1); Sodium 139 meq/L (136-145)
--- NOTE | 2018-06-26 09:10 | P.DIET ---
Nutritional Evaluation Type of nutrition evaluation: follow-up Nutrition consult regarding: Diet Evaluation (TF was stopped on 06/21) Objective - Diagnosis Brain Bleed - Objective [place] body weight: 68 kg % IBW: 90 (IBW = 150#) Body Weight Used for Calculations: Actual (60) Energy Needs - Lower Range (kCal/kg): 28 Energy Needs - Upper Range (kCal/kg): 32 Lower Limit kCal/kg (kCals): 1,680 Upper Limit kCal/kg (kCals): 1,920 Lower Limit Protein Factor (Grams per Kg): 1.2 Upper Limit Protein Factor (Grams per Kg): 1.6 Lower Protein Needs (Protein): 70 Upper Protein Needs (Protein): 96 Dietitian Reviewed in Medical Record: Curent medications, Intake & Output, Labs , Medical history, Tube feeding Diet Order: pureed, card, honey thick liquids Oral Diet Intake Amount: Fair 50-75% Speech Therapy Recommendations: Yes (pureed, honey thick liquids) Assessment Assessment: TFing was stopped on 06/21. MD noted the patient having a weak slubber runner, eating 50-100 % of her meals, mostly 75%. Last BM was on noted on 06/19 with good UOP. Wt. has decreased back to admission wt. Will start on ensure enlive one with lunch and dinner. Continue to monitor PO intake and wt. Recommendations: 1. Will start on ensure enlive one with lunch and dinner. 2. Continue to monitor PO intake and wt. Dietitian to Monitor: Lab values, Intake & Output, Diet tolerance, Weight change , PO Intake, Medical course
--- NOTE | 2018-06-26 09:15 | P.PNNS ---
Subjective Interval history: Doing well - lethargic but, conversant and clear Physical Exam Vital signs: Vital Signs 06/25/18 11:37 06/25/18 15:24 06/25/18 20:00 Temperature 98.4 F 98 F 98.3 F Pulse Rate 82 87 71 Respiratory Rate 18 18 18 Blood Pressure 142/65 H 120/58 L 120/80 Pulse Oximetry 94 L 93 L 95 06/26/18 00:15 Temperature 98.8 F Pulse Rate 98 H Respiratory Rate 21 Blood Pressure 184/79 H Pulse Oximetry 95 Intake & Output 06/25/18 06/26/18 06/26/18 18:59 06:59 18:59 Intake Total 328 / 328 274 / 274 Output Total 1600 / 1600 Balance 328 / 328 -1326 / -1326 Weight 60.7 kg Intake: IV 328 / 328 274 / 274 Cerebyx Inj 200 MGPE In NS Inj 108 / 108 54 / 54 50 ML @ 216 mls/hr IV.SIG Q8HR [facility] Rx#:[id number] Vimpat Inj 50 MG In NS Inj 100 105 / 105 105 / 105 ML @ 105 mls/hr IV.SIG Q12H [facility] Rx#:[id number] Keppra Inj 1,500 MG In NS Inj 115 / 115 115 / 115 100 ML @ 400 mls/hr IV.SIG Q12H [facility] Rx#:[id number] Output: Urine 1600 / 1600 Other: Date of Last Bowel Movement 06/19/18 06/19/18 - Constitutional no acute distress, thin, chronically ill appearing, cooperative - Routine HEENT Exam Head: Present: normocephalic, atraumatic Eye: Present: EOMI, PERRL, normal accommodation ENT: Present: mucous membranes moist, oropharynx clear - Routine Neck Exam Present: supple, full ROM, trachea midline - Routine Respiratory Exam Present: CTA bilaterally - Routine Cardiovascular Exam Present: RRR - Routine Abdominal Exam Present: normoactive bowel sounds - Routine Skin Exam Present: intact, warm, normal turgor - Routine Neurological Exam awake, alert a few words, follows few simple commands moving extremities, moderate right side weakness - Detailed Neurological Exam: Coma Scale Eye Opening: Spontaneous Verbal Response: Sounds Motor Response: Obey commands [place] Coma Scale Total: 12 - Routine Psychiatric Exam Present: cooperative - Urinary Catheter Management Female External Cath placed during this visit: yes Reason for continuing: Acute urinary retention Insertion date: 06/24/18 Insertion time: 14:45 Indwelling Urethral Catheter Cath placed during this visit: yes, but has since been removed by the nurse Reason for continuing: Decision to DC catheter Insertion date: 06/05/18 Insertion time: 08:30 Removal date: 06/16/18 Removal time: 21:51 Assessment and Plan - Plan 78 yo female with vague constellation of symptoms GCS-[address] shows 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 hemorrhagic mass Will follow with you 05/30/18: cont neuro checks in ICU Dr. 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 Palacios NPO [place] monday cont hold Plavix dw nursing avoid over sedation will follow 06/02/18 Patient appears to be roughly neurologically stable Dr. 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 at midnight on Monday night into Monday Minimize sedating meds, etc. 06/03/18: Appears to be a bit more encephalopathic today, possible contribution of hospital delirium versus her mild hydrocephalus, though favor delirium since her level of alertness remains stable Dr. 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 at midnight tonight Continue to minimize sedating meds, etc. 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 Palacios 06/06/18: POD #1. pt had seizure last night requiring intubation. She has been started on Keppra for seizures. On exam she opens eyes and follows commands. Postoperative MRI Brain w/wo contrast has been ordered and pending. Obtain EEG to assess seizures. Continue ventriculostomy draining, add ICP monitoring. Start sq lovenox for dvt prophylaxis. Will follow. 06/07/18: POD #2. patient neurologically stable, opens eyes and follows commands. Postoperative MRI Brain reviewed by neurosurgery team. Spot EEG reports no ongoing seizures, with high amplitude sharp waves on left?breach rhythm. Critical care plans on extubation today. Continue ventriculostomy draining at 10 mmHg. Final pathology pending. Neurology following for seizure management. Will follow. 06/08/18: POD #3. patient neurologically stable, opens eyes and follows commands. Ventriculostomy draining well with controlled ICPs, will continue at 10mmHg. Pathology still pending. cont seizure management per Neurology. dw critical care. will follow. 06/09/2018 POD#4 Remains Neurologically stable, follows commands Stop sedation wean ventilator to CPAP 5 x 12 and FiO2 30% Continue DuoNeb nebs 4 times daily. Check respiratory parameters and consider extubation Agree with Symbicort 160 about 4.5 mcg 1 puff twice daily and Solu-Medrol 40 mg IV twice daily Continue EVD Would maintain SBP 140-160 to improve CPP. 06/10/2018 POD#5 Seizure yesterday, and last night, have increased Cerebyx and Keppra D/C'ed Barbs would prefer to maintain on 2 agents and high therapeutic levels of Cerebyx, usually best with brain tumors Free Dilantin levels not easily obtainable here. Lets keep level around 20 with standard level remains Neurologically stable wean ventilator to CPAP 5 x 12 and FiO2 30% and if OK, may extubate from Neurosurgical standpoint. 06/11/18 POD #6 seizures controlled overnight, will continue Cerebyx 200 tid and Keppra 1500 bid. Dilantin levels 17.6 today continue critical care - vent weaning - CPAP trials cont EVD draining at 5 mmHg final pathology still pending will follow 06/12/18 POD #7 pt failed extubation yesterday, reintubated- critical care managing repeat EEG 06/11/18 abnormal with sharp activities left hemisphere dilantin levels 18.8 this morning cont current anticonvulsants, will repeat EEG today obtained follow up CT Brain this morning which was reviewed by Dr. Perdue, EVD raised to 15 mmHg neuro exam today appears better final pathology still pending 06/13/18 POD #8 neurologically she is awake, alert EEG yesterday 06/12/18 - mod encephalopathy, no reports of any seizure activities cont current anticonvulsants, Dilantin levels trending up pending today, started on Zosyn for gram neg rods in sputum - per critical care cont EVD challenge, cont at 15 mmHg today, plan to clamp tomorrow will follow 06/14/18 POD #9 neurologically remains awake and alert Ventriculostomy drain clamped today, follow up CT Head tomorrow am will follow 06/15/18: POD #10 neuro exam with no changes, f/u CT Head post EVD clamping reviewed by neurosurgery team, ventriculostomy drain removed, using sterile technique single stitch place, patient tolerated procedure well cont critical care management seizures controlled, continue current anticonvulsants FINAL PATHOLOGY: LOW GRADE NEOPLASM, MOST CONSISTENT WITH PILOCYTIC ASTROCYTOMA ; 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 current management Discussed Path with patient's son 06/17/2018 POD#12 Neuro: no sig. changes seizures controlled aggressive CPAP trials today DPH level 5.5 Bolused with 500 mgs. cont. ICU 06/18/2018 no neurological changes continue CPAP trials, vent wean to extubate remove surgical mamadou Dr. 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 Snell - continue CPAP, ?extubate pulmonology also following 06/20/2018 patient extubated, neuro exam unchanged, stable reconsult medical oncology for reeval for poss chemotherapy for pilocytic astrocytoma radiation oncology eval pending will follow 06/21/2018 neuro exam relatively stable, she waxes and wanes- dw nursing she is stable from NRS standpoint for a step down unit, radiation oncology for work up outpatient and potential xrt appreciate oncology reeval: there is no chemotherapy to offer for the low grade astrocytoma 06/22/2018 continue physical, occupation, and speech therapy increase activity, OOB to chair cont present care will follow 06/23/2018 continue physical, occupation, and speech therapy increase activity, OOB to chair cont present care will follow 06/24/2018 continue physical, occupation, and speech therapy increase activity, OOB to chair cont present care appears to be gradually improving. will follow 06/25/2018 increase activity, OOB to chair PT/OT/ST Rehab Consult cont present care slowly improving. will continue to follow
--- NOTE | 2018-06-26 09:19 | P.PNNS ---
Subjective Interval history: Remains Neurologically stable, no events overnight Physical Exam Vital signs: Vital Signs 06/25/18 11:37 06/25/18 15:24 06/25/18 20:00 Temperature 98.4 F 98 F 98.3 F Pulse Rate 82 87 71 Respiratory Rate 18 18 18 Blood Pressure 142/65 H 120/58 L 120/80 Pulse Oximetry 94 L 93 L 95 06/26/18 00:15 06/26/18 08:00 Temperature 98.8 F 98.9 F Pulse Rate 98 H 78 Respiratory Rate 21 20 Blood Pressure 184/79 H 162/75 H Pulse Oximetry 95 96 Intake & Output 06/25/18 06/26/18 06/26/18 18:59 06:59 18:59 Intake Total 328 / 328 274 / 274 240 / 240 Output Total 1600 / 1600 200 / 200 Balance 328 / 328 -1326 / -1326 40 / 40 Weight 60.7 kg Intake: IV 328 / 328 274 / 274 Cerebyx Inj 200 MGPE In NS Inj 108 / 108 54 / 54 50 ML @ 216 mls/hr IV.SIG Q8HR [facility] Rx#:[id number] Vimpat Inj 50 MG In NS Inj 100 105 / 105 105 / 105 ML @ 105 mls/hr IV.SIG Q12H [facility] Rx#:[id number] Keppra Inj 1,500 MG In NS Inj 115 / 115 115 / 115 100 ML @ 400 mls/hr IV.SIG Q12H [facility] Rx#:[id number] Oral 240 / 240 Output: Urine 1600 / 1600 200 / 200 Other: Date of Last Bowel Movement 06/19/18 06/19/18 - Constitutional no acute distress, thin, cooperative - Routine HEENT Exam Head: Present: normocephalic, atraumatic Eye: Present: EOMI, PERRL, normal accommodation ENT: Present: mucous membranes moist, oropharynx clear - Routine Neck Exam Present: supple, full ROM, trachea midline - Routine Respiratory Exam Present: CTA bilaterally - Routine Cardiovascular Exam Present: RRR - Routine Abdominal Exam Present: soft, normoactive bowel sounds - Routine Extremities Exam Present: full ROM, pulses intact, normal capillary refill - Routine Skin Exam Present: intact, warm, normal turgor - Routine Neurological Exam A&O to person, place, intermittently Moves all extremities, mild right hemiparesis Cranial incision c/d/i - Detailed Neurological Exam: Coma Scale Eye Opening: Spontaneous Verbal Response: Sounds Motor Response: Obey commands [place] Coma Scale Total: 12 - Routine Psychiatric Exam Present: cooperative - Urinary Catheter Management Female External Cath placed during this visit: yes Reason for continuing: Acute urinary retention Insertion date: 06/24/18 Insertion time: 14:45 Indwelling Urethral Catheter Cath placed during this visit: yes, but has since been removed by the nurse Reason for continuing: Decision to DC catheter Insertion date: 06/05/18 Insertion time: 08:30 Removal date: 06/16/18 Removal time: 21:51 Assessment and Plan - Plan 78 yo female with vague constellation of symptoms GCS-[address] shows 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 hemorrhagic mass Will follow with you 05/30/18: cont neuro checks in ICU Dr. 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 at midnight on Monday night into Monday Minimize sedating meds, etc. 06/03/18: Appears to be a bit more encephalopathic today, possible contribution of hospital delirium versus her mild hydrocephalus, though favor delirium since her level of alertness remains stable Dr. 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 at midnight tonight Continue to minimize sedating meds, etc. 06/04/18: surgery rescheduled for tomorrow morning patient may resume diet today, NPO at [place] tonight cont hold Plavix 06/05/18 in OR for left frontal cranitomy for resection of intraventricular tumor by Dr. Palacios 06/06/18: POD #1. pt had seizure last night requiring intubation. She has been started on Keppra for seizures. On exam she opens eyes and follows commands. Postoperative MRI Brain w/wo contrast has been ordered and pending. Obtain EEG to assess seizures. Continue ventriculostomy draining, add ICP monitoring. Start sq lovenox for dvt prophylaxis. Will follow. 06/07/18: POD #2. patient neurologically stable, opens eyes and follows commands. Postoperative MRI Brain reviewed by neurosurgery team. Spot EEG reports no ongoing seizures, with high amplitude sharp waves on left?breach rhythm. Critical care plans on extubation today. Continue ventriculostomy draining at 10 mmHg. Final pathology pending. Neurology following for seizure management. Will follow. 06/08/18: POD #3. patient neurologically stable, opens eyes and follows commands. Ventriculostomy draining well with controlled ICPs, will continue at 10mmHg. Pathology still pending. cont seizure management per Neurology. dw critical care. will follow. 06/09/2018 POD#4 Remains Neurologically stable, follows commands Stop sedation wean ventilator to CPAP 5 x 12 and FiO2 30% Continue DuoNeb nebs 4 times daily. Check respiratory parameters and consider extubation Agree with Symbicort 160 about 4.5 mcg 1 puff twice daily and Solu-Medrol 40 mg IV twice daily Continue EVD Would maintain SBP 140-160 to improve CPP. 06/10/2018 POD#5 Seizure yesterday, and last night, have increased Cerebyx and Keppra D/C'ed Barbs would prefer to maintain on 2 agents and high therapeutic levels of Cerebyx, usually best with brain tumors Free Dilantin levels not easily obtainable here. Lets keep level around 20 with standard level remains Neurologically stable wean ventilator to CPAP 5 x 12 and FiO2 30% and if OK, may extubate from Neurosurgical standpoint. 06/11/18 POD #6 seizures controlled overnight, will continue Cerebyx 200 tid and Keppra 1500 bid. Dilantin levels 17.6 today continue critical care - vent weaning - CPAP trials cont EVD draining at 5 mmHg final pathology still pending will follow 06/12/18 POD #7 pt failed extubation yesterday, reintubated- critical care managing repeat EEG 06/11/18 abnormal with sharp activities left hemisphere dilantin levels 18.8 this morning cont current anticonvulsants, will repeat EEG today obtained follow up CT Brain this morning which was reviewed by Dr. Perdue, EVD raised to 15 mmHg neuro exam today appears better final pathology still pending 06/13/18 POD #8 neurologically she is awake, alert EEG yesterday 06/12/18 - mod encephalopathy, no reports of any seizure activities cont current anticonvulsants, Dilantin levels trending up pending today, started on Zosyn for gram neg rods in sputum - per critical care cont EVD challenge, cont at 15 mmHg today, plan to clamp tomorrow will follow 06/14/18 POD #9 neurologically remains awake and alert Ventriculostomy drain clamped today, follow up CT Head tomorrow am will follow 06/15/18: POD #10 neuro exam with no changes, f/u CT Head post EVD clamping reviewed by neurosurgery team, ventriculostomy drain removed, using sterile technique single stitch place, patient tolerated procedure well cont critical care management seizures controlled, continue current anticonvulsants FINAL PATHOLOGY: LOW GRADE NEOPLASM, MOST CONSISTENT WITH PILOCYTIC ASTROCYTOMA ; 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 current management Discussed Path with patient's son 06/17/2018 POD#12 Neuro: no sig. changes seizures controlled aggressive CPAP trials today DPH level 5.5 Bolused with 500 mgs. cont. ICU 06/18/2018 no neurological changes continue CPAP trials, vent wean to extubate remove surgical mamadou Dr. 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 Snell - continue CPAP, ?extubate pulmonology also following 06/20/2018 patient extubated, neuro exam unchanged, stable reconsult medical oncology for reeval for poss chemotherapy for pilocytic astrocytoma radiation oncology eval pending will follow 06/21/2018 neuro exam relatively stable, she waxes and wanes- dw nursing she is stable from NRS standpoint for a step down unit, radiation oncology for work up outpatient and potential xrt appreciate oncology reeval: there is no chemotherapy to offer for the low grade astrocytoma 06/22/2018 continue physical, occupation, and speech therapy increase activity, OOB to chair cont present care will follow 06/23/2018 continue physical, occupation, and speech therapy increase activity, OOB to chair cont present care will follow 06/24/2018 continue physical, occupation, and speech therapy increase activity, OOB to chair cont present care appears to be gradually improving. will follow 06/25/2018 increase activity, OOB to chair PT/OT/ST Rehab Consult cont present care slowly improving. will continue to follow 06/26/2018 OOB to chair TID PT/OT/ST ready for transfer to Rehab from Neurosurgical standpoint cont present care slowly improving. will continue to follow
[2018-06-26] MEDS: levETIRAcetam Inj 1,500 MG in Sodium Chlor 0.9% Inj 100 ML IV.SIG SCH ×2 (11:28→23:04)
[2018-06-26] MEDS: Acetaminophen 325 MG Tablet PO PRN (13:49)
[2018-06-26] MEDS ORDERED: Sodium Chlor 0.9% Inj 250 ML IV.SIG SCH (17:30)
--- NOTE | 2018-06-26 17:35 | P.PN ---
Subjective Interval history: She is more Lethargic today. On O2 2 L and sats are 98. BP was high but now at 115/60. Physical Exam Vital signs: Vital Signs 06/25/18 20:00 06/26/18 00:15 06/26/18 08:00 Temperature 98.3 F 98.8 F 98.9 F Pulse Rate 71 98 H 78 Respiratory Rate 18 21 17 Blood Pressure 120/80 184/79 H 162/75 H Pulse Oximetry 95 95 96 06/26/18 10:16 06/26/18 12:00 06/26/18 16:00 Temperature 99.4 F 98.6 F Pulse Rate 94 H 87 Respiratory Rate 17 17 Blood Pressure 197/83 H 109/55 L Pulse Oximetry 94 L 95 96 Intake & Output 06/25/18 06/26/18 06/26/18 18:59 06:59 18:59 Intake Total 328 / 328 433 / 433 529 / 529 Output Total 1600 / 1600 500 / 500 Balance 328 / 328 -1167 / -1167 29 / 29 Weight 60.7 kg Intake: IV 328 / 328 433 / 433 169 / 169 Cerebyx Inj 200 MGPE In NS Inj 108 / 108 108 / 108 54 / 54 50 ML @ 216 mls/hr IV.SIG Q8HR [facility] Rx#:[id number] Vimpat Inj 50 MG In NS Inj 100 105 / 105 210 / 210 ML @ 105 mls/hr IV.SIG Q12H [facility] Rx#:[id number] Keppra Inj 1,500 MG In NS Inj 115 / 115 115 / 115 115 / 115 100 ML @ 400 mls/hr IV.SIG Q12H [facility] Rx#:[id number] Oral 360 / 360 Output: Urine 1600 / 1600 500 / 500 Other: Date of Last Bowel Movement 06/19/18 06/19/18 06/19/18 Narrative: Very lethargic and shallow breaths. GENERAL: Elderly white female in no distress SKIN: Warm and dry. HEAD: Atraumatic. Normocephalic. EYES: Pupils equal and round. No scleral icterus. No injection or drainage. ENT: No nasal bleeding or discharge. Mucous membranes pink and moist. NECK: Trachea midline. No JVD. CARDIOVASCULAR: Regular rate and rhythm. RESPIRATORY: Occasional wheezes bilaterally and few basal crackles. GASTROINTESTINAL: Abdomen soft, non-tender, nondistended. Hepatic and splenic margins not palpable. MUSCULOSKELETAL: Extremities without clubbing, cyanosis, or edema. No obvious deformities. NEUROLOGICAL: Lethargic . No response to commands. PSYCHIATRIC: Cannot assess - Urinary Catheter Management Female External Cath placed during this visit: yes Reason for continuing: Acute urinary retention Insertion date: 06/24/18 Insertion time: 14:45 Indwelling Urethral Catheter Cath placed during this visit: yes, but has since been removed by the nurse Reason for continuing: Decision to DC catheter Insertion date: 06/05/18 Insertion time: 08:30 Removal date: 06/16/18 Removal time: 21:51 Results - Labs CBC & Chem 7: 06/22/18 04:28 06/26/18 08:00 Laboratory Results - last 24 hr 06/26/18 08:00 Sodium 139 Potassium 3.6 Chloride 102 Carbon Dioxide 29.8 Anion Gap 7 BUN 6 L Creatinine 0.28 L Estimated GFR Greater than 89 Random Glucose 120 H Calcium 8.5 Assessment and Plan - Assessment (1) COPD (chronic obstructive pulmonary disease) Code(s): J44.9 - Chronic obstructive pulmonary disease, unspecified Status: Acute (2) Right upper lobe pulmonary nodule Code(s): R91.1 - Solitary pulmonary nodule Status: Acute (3) Intraventricular hemorrhage, nontraumatic Code(s): I61.5 - Nontraumatic intracerebral hemorrhage, intraventricular Status: Acute (4) Hypertensive emergency Code(s): I16.1 - Hypertensive emergency Status: Acute (5) Metabolic encephalopathy Code(s): G93.41 - Metabolic encephalopathy Status: Acute (6) Altered mental status Code(s): R41.82 - Altered mental status, unspecified Status: Acute (7) History of peripheral arterial disease Code(s): Z86.79 - Personal history of other diseases of the circulatory system Status: Chronic (8) History of hypertension Code(s): Z86.79 - Personal history of other diseases of the circulatory system Status: Chronic (9) Cessation of tobacco use in previous 12 months Code(s): Z87.891 - Personal history of nicotine dependence Status: Chronic - Plan 1 continue O2 nasal cannula 2 L 2. Continue DuoNeb nebs 3 times daily. 3. ABG and use BiPAP at HS 12/5 CM 4. Workup for lung mass when clinically stable 5. Continue physical therapy 6 Symbicort 160 about 4.5 mcg 1 puff twice daily 7. BMP CBC in a.m. 9. Tube feedings at 40 cc/h Jevity 10. Continue Decadron as ordered (6) Altered mental status Qualifiers: Altered mental status type: unspecified Qualified Code(s): R41.82 - Altered mental status, unspecified
[2018-06-26 18:06] LABS: ABG Base Excess 4.9 mmol/L (-2-2); ABG PCO2 42 mmHg (38-42); ABG PO2 113 mmHg (61-120)
--- NOTE | 2018-06-26 18:38 | P.PNIM ---
Subjective Interval history: Follow-up for hemorrhagic intracranial mass status post surgical resection, hypertension. Patient was seen in the early afternoon when she was somewhat arousable. She does not speak much. Later in the afternoon, patient was much more lethargic and unresponsive. With strong sternal rub, she would open her eyes slightly but largely unresponsive. We checked her blood glucose which was over 120, ABG appeared to be unremarkable. I discussed with neurosurgeon. Will obtain stat head CT as well as sodium level. Physical Exam Vital signs: Vital Signs 06/25/18 20:00 06/26/18 00:15 06/26/18 08:00 Temperature 98.3 F 98.8 F 98.9 F Pulse Rate 71 98 H 78 Respiratory Rate 18 21 17 Blood Pressure 120/80 184/79 H 162/75 H Pulse Oximetry 95 95 96 06/26/18 10:16 06/26/18 12:00 06/26/18 16:00 Temperature 99.4 F 98.6 F Pulse Rate 94 H 87 Respiratory Rate 17 17 Blood Pressure 197/83 H 109/55 L Pulse Oximetry 94 L 95 96 Intake & Output 06/25/18 06/26/18 06/26/18 18:59 06:59 18:59 Intake Total 328 / 328 433 / 433 529 / 529 Output Total 1600 / 1600 500 / 500 Balance 328 / 328 -1167 / -1167 29 / 29 Weight 60.7 kg Intake: IV 328 / 328 433 / 433 169 / 169 Cerebyx Inj 200 MGPE In NS Inj 108 / 108 108 / 108 54 / 54 50 ML @ 216 mls/hr IV.SIG Q8HR [facility] Rx#:[id number] Vimpat Inj 50 MG In NS Inj 100 105 / 105 210 / 210 ML @ 105 mls/hr IV.SIG Q12H [facility] Rx#:[id number] Keppra Inj 1,500 MG In NS Inj 115 / 115 115 / 115 115 / 115 100 ML @ 400 mls/hr IV.SIG Q12H [facility]LEX[facility] Rx#:[id number] Oral 360 / 360 Output: Urine 1600 / 1600 500 / 500 Other: Date of Last Bowel Movement 06/19/18 06/19/18 06/19/18 Narrative: GENERAL: Largely unresponsive, wakes up slightly upon strong sternal rub. SKIN: Warm and dry. HEAD: Normocephalic. EYES: No scleral icterus. No injection or drainage. Pupils are equal and responsive to light. NECK: Supple, trachea midline. No JVD or lymphadenopathy. CARDIOVASCULAR: Regular rate and rhythm without murmurs, gallops, or rubs. RESPIRATORY: Breath sounds equal bilaterally. No accessory muscle use. GASTROINTESTINAL: Abdomen soft, non-tender, nondistended. MUSCULOSKELETAL: No cyanosis, or edema. BACK: Nontender without obvious deformity. No CVA tenderness. Urinary Catheter Management Female External: Cath placed during this visit: yes Reason for continuing: Acute urinary retention Insertion date: 06/24/18 Insertion time: 14:45 Indwelling Urethral Catheter: Cath placed during this visit: yes, but has since been removed by the nurse Reason for continuing: Decision to DC catheter Insertion date: 06/05/18 Insertion time: 08:30 Removal date: 06/16/18 Removal time: 21:51 Results Labs CBC & Chem 7: 06/22/18 04:28 06/26/18 19:33 Assessment and Plan Plan 78-year-old white female was transferred from [facility] with 1 week history of memory loss hallucination and found to have subacute anterior ventricular hemorrhage and 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 Kapadia review case recommended no chemo and refer to radiation oncology. Per oncology, Dr. 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 -Dr. Clemons has been consulted and recommends outpatient follow-up for radiation treatment -EEG originally negative for seizures -Repeat EEG 06/06 field possible left frontal breakthrough. -MRA 06/06 brain revealed left lateral ventricle resection, intervertebral hemorrhage slightly decreased. Small subdural hematoma. Postsurgical. Rightward shift 5 mm. -Currently on fosphenytoin 200 mg every 8 hours. -On levetiracetam 1500 mg IV twice daily. -Continue lacosamide 50 mg twice daily per neurosurgery Acute hypoxic and hypercarbic respiratory failure-now extubated and on nasal cannula 2 L oxygen Previous tobacco use Right upper lobe speak with a mass HCAP ventilator associated pneumonia -Pulmonology consulted for right upper lobe mass concerning for primary malignancy, with adrenal mass -Pulmonary Dr. Evans suggesting CT-guided biopsy and PET scan once clinically more stable -Reintubated and ISC after PACU 06/05. PT 7 days a week. - on NC - protects airway well - work up when stable Hypertensive emergency History of hypertension Peripheral arterial disease -Continue home enalapril 40 mg daily and amlodipine 5 mg daily increased to 10 mg daily, continue pravastatin 40 mg daily. 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 Lovenox. Progress Note: Quality VTE Deep Vein Thrombosis/Pulmonary Embolism Present on Admission: No
--- NOTE | 2018-06-26 19:07 | CT ---
EXAM DATE: 06/26/2018 7:01 PM EST AGE/SEX: 78 years / Female INDICATIONS: Acute neurological changes CLINICAL DATA: This is the patient's initial encounter. Patient reports that signs and symptoms have been present for 1 day and indicates a pain score of Nonresponsive. MEDICAL/SURGICAL HISTORY: Cardiovascular disease. Hypertension. Peripheral vascular disease. Bra in hemorragic mass Craniotomy. Coronary artery stent. RADIATION DOSE: 45.84 CTDI (mGy) [place] [facility] [place]. . TECHNIQUE: CT of the head without contrast. Using automated exposure control and adjustment of the mA and/or kV according to patient size, radiation dose was kept as low as reasonably achievable to ob tain optimal diagnostic quality images. DICOM format image data is available electronically for revi ew and comparison. FINDINGS: Cerebrum: The ventricles are stable in size. Left frontal ventriculostomy catheter has been removed. Encephalomalacia left frontal lobe. Cortical and central atrophy. Areas of low-density within the wh ite matter. No evidence of midline shift, mass lesion, hemorrhage or acute infarction. Very minimal h emorrhage left subdural space. Posterior Fossa: The cerebellum and brainstem are intact. The 4th ventricle is midline. The cerebe llopontine angle is unremarkable. Extracranial: The visualized portion of the orbits is intact. Skull: Evidence of previous left frontal craniotomy. No evidence of skull fracture. CONCLUSION: 1. Encephalomalacia left frontal lobe. 2. Cerebral atrophy. 3. No midline shift or mass effect. 4. Very minimal hemorrhage left subdural space, much less prominent from previous study. . Electronically signed by: Brock Pineda MD Board Certified Radiologist 06/26/2018 7:06 PM EST
[2018-06-27] MEDS: Lacosamide Inj 50 MG in Sodium Chlor 0.9% Inj 100 ML IV.SIG SCH ×2 (05:09→18:35)
[2018-06-27] MEDS: Artificial Tears Opth Drops 15 ML Bottle EACH EYE SCH ×3 (05:09→22:57)
[2018-06-27] MEDS: Fosphenytoin Inj 200 MGPE in Sodium Chlor 0.9% Inj 50 ML IV.SIG SCH ×3 (06:25→22:54)
[2018-06-27] MEDS: Sodium Chloride 1 GM Tablet PO SCH ×2 (09:02→22:56)
[2018-06-27] MEDS: Senna/Docusate Sodium 8.6/50 MG Tablet PO SCH ×2 (09:02→22:57)
[2018-06-27] MEDS: Enoxaparin Inj 40 MG/0.4 ML Syringe SQ SCH (09:05)
[2018-06-27] MEDS: Budesonide-Formoterol 160/4.5 MCG 6 GM Inhaler INH SCH ×2 (09:06→22:57)
[2018-06-27] MEDS: levETIRAcetam Inj 1,500 MG in Sodium Chlor 0.9% Inj 100 ML IV.SIG SCH ×2 (12:56→23:58)
[2018-06-27] MEDS: Metoprolol Tartrate 50 MG Tablet PO SCH ×2 (14:05→22:57)
[2018-06-27] MEDS: Lisinopril 20 MG Tablet PO SCH (14:06)
[2018-06-27] MEDS: amLODIPine 5 MG Tablet PO SCH (14:06)
--- NOTE | 2018-06-27 15:18 | P.CONPAL ---
Consult Service: Palliative Care Requesting Physician: Jake Wells Reason for Consult: a. To assist with evaluation and management of symptoms including: Disorientation, debility b. To assist medical decision maker(s) with: better understanding of current medical conditions; weighing benefits/burdens of medical treatment options; making medical treatment decisions. Primary Care Provider: Luna Brown History of Present Illness History of Present Illness: This is a 78-year old female with a past medical history of hypertension, PAD status post stenting, arthritis who was transferred to [facility] from [facility] with generalized complaints of memory loss, right leg weakness, speech deficit and hallucinations for the prior week initial workup showed subacute intraventricular hemorrhage into the left lateral ventricle with a focal thrombus possibly obstructing the foramina of Mon[place] with enlargement of the left lateral ventricle compared to the prior MRI. Also trace blood in the occipital horn of the left lateral ventricle. Due to the intraventricular hemorrhage, neurosurgery was emergently consulted. She was found to be profoundly hypertensive with a blood pressure of 190-200 requiring IV labetalol 20 mg IV followed by Cardene infusion. She was found to be oriented only to self. MRI of the brain with and without contrast was ordered as well as systolic blood pressure control of less than 150 mmHg. Clinical findings on admission: * Chest x-ray shows chronic interstitial changes with no acute abnormality. * MRI of the brain with and without contrast shows a 2.3 x 1.7 cm mass within the body of the left lateral ventricle. The left lateral ventricle is prominent , may be related to production of CSF from the mass versus an ependymoma versus other benign intraventricular mass which may have hemorrhaged causing blood layering in the lateral ventricles. Also a mass was found in the cerebellopontine angle on the left compressing upon the brainstem measuring 1.8 x 1.4 cm. Chronic ischemic small vessel vasculopathy. * CT of the abdomen with IV contrast shows a 1.3 cm left adrenal mass concerning for metastatic disease given findings of brain metastasis and lung mass. 1.6 cm indeterminate low-density lesion in the posterior right lobe of the liver with numerous additional subcentimeter hypodense lesions which are too small to fully characterize. Although metastatic disease cannot be entirely excluded, suspect these reflect cysts. Colonic diverticulosis without evidence for diverticulitis. * Chest CT shows a 1.6 x 1.1 cm spiculated right upper lobe lung nodule concerning for metastasis or primary lung malignancy. Additional 3 mm subpleural nodules in the superior segment of the left lower lobe are nonspecific. Mild atelectasis/scarring at the right lung base with more prominent airspace consolidation at the left lung base. 1.1 x 1.4 cm soft tissue density abnormality emanating from the inferior lateral margin of the right breast implant which may reflect a focal disruption however cannot exclude an adjacent breast mass. * CTA of the head with IV contrast showed no evidence for intracranial aneurysm or stenosis, intraventricular masses previously described, no evidence for mass at the cerebellopontine angle. The finding on the recent MRI was likely related to pulsation artifact in the region. She was seen by neurology who felt that hydrocephalus could be responsible for some of her confusion and tremors and expressed concerned about the medullary compression which he referred to neurosurgery. He recommended Precedex, thyroid , B12 labs and an EEG. EEG showed minimal encephalopathy in a sleep state. She was seen by both medical and radiology oncology. Dr. Clemons plan further outpatient workup and potential role of radiation therapy. Dr. Kapadia notes that based on the pathology of the brain lesion it suggests that the patient has 2 separate primary cancers most concerning is the possibility of a second primary lung cancer, possible metastatic disease to the adrenal gland which would make her prognosis determined by the more aggressive malignancy. As there is no chemotherapy available for astrocytoma and at this time the patient is severely debilitated, confused and restrained to a bed, no further workup on the lung mass has been attempted. This is also been deferred to outpatient status. Pulmonology was consulted for evaluation of the right upper lobe lung nodule. Plan to wait until patient was clinically stable status post neurosurgery for a CT-guided needle biopsy of the lung nodule and PET/CT. On 06/05 she underwent left frontal craniotomy for resection of the tumor by neurosurgery. 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 Post surgery she had a brief generalized seizure terminated with Ativan 1 mg and she was subsequently loaded with Cerebyx. EEG done 06/09 shows recurrent seizures that last approximately 30 seconds. Of note, the reading neurologist noted that the EEG looked much worse than prior and phenobarbital was initiated in addition to Dilantin and Keppra due to the major left seizure focus. On 06/11 she was extubated again and within an hour failed extubation requiring reintubation. Continue to fail CPAP trials for several days and was found to have Enterobacter cloacae and strep on sputum culture. On 06/14 patient underwent left frontal craniotomy for resection of intraventricular tumor with a microscope and cortical motor mapping and endoscopy. She was extubated post procedure and returned to the recovery room, then required reintubation.. Procedure had been delayed because patient was receiving Plavix. On 06/16 she required therapeutic bronchoscopy for mucous plugging but remained awake and following commands. On 06/19 she was successfully extubated and seen today on the [facility] floor in two-point restraints due to confusion. Case discussed with Dr. Wells, who provided background and has consulted palliative care to assist with goals of medical treatment and symptom management. . Function/Cognitive Trajectory: The patient had presented to [facility] with nonspecific complaints of memory loss and hallucinations with worsening tremors of the right arm for the prior week. . Review of Systems Patient is confused and ROS may not be reliable. A 12 part ROS taken as best as possible from medical record and available family. Ears, Nose, Mouth, and Throat: Reports change in voice Musculoskeletal: Reports muscle weakness Neurologic: Reports confusion PMFSH - History History Provided By: Patient, Family Member - Surgical History Surgical History: Surgical History (Last Reviewed 06/25/18 @ 08:42 by Lynne Meneses) Stented coronary artery - Tobacco History Second Hand Smoke Exposure: No Tobacco Use In Past 30 Days: No Smoking Status: Former smoker - Alcohol History How Often Do You Have a Drink Containing Alcohol: 4 or more times a week - Substance Use History Substance History: No History of Abuse - Travel History Recent Travel in the [place] Within the Last 8 Weeks: No Recent Travel Out of the Country Within the Last 8 Weeks: No - Immunization History Tetanus Immunization: Unsure Hx Influenza Vaccine This Season: No Medications and Allergies Active Medications: Active Medications Acetaminophen (Tylenol) 650 mg PO Q6H PRN PRN Reason: PAIN 1-10 AND/OR FEVER >101F Last Admin: 06/26/18 13:49 Dose: 650 mg Al Hydroxide/Mg Hydroxide (Milk Of Magnesia Liq) 30 ml PO Q12H PRN PRN Reason: Mild Constipation Last Admin: 06/25/18 08:12 Dose: 30 ml Albuterol (Albuterol Neb (Prn)) 2.5 mg NEB Q2HR NEB PRN PRN Reason: DYSPNEA Last Admin: 06/19/18 17:27 Dose: 2.5 mg Amlodipine Besylate (Norvasc) 10 mg PO DAILY [facility] Last Admin: 06/27/18 14:06 Dose: Not Given Artificial Tears (Tears Naturale Opth Drops) 1 drop EACH EYE Q8H [facility] Last Admin: 06/27/18 12:56 Dose: 1 drop Bisacodyl (Dulcolax Supp) 10 mg RECTAL DAILY PRN PRN Reason: SEVERE CONSITIPATION Last Admin: 06/26/18 08:30 Dose: 10 mg Budesonide/Formoterol Fumarate (Symbicort 160/4.5 Mcg Inh) 1 puff INH BID [facility] Last Admin: 06/27/18 09:06 Dose: 1 puff Clonidine HCl (Catapres) 0.1 mg PO Q8HR [facility] Last Admin: 06/27/18 14:06 Dose: Not Given Dexamethasone Sodium Phosphate (Decadron Inj) 4 mg IV.PUSH Q8HR [facility] Last Admin: 06/27/18 12:59 Dose: 4 mg Enalaprilat (Vasotec Inj) 2.5 mg IV.PUSH Q6H PRN PRN Reason: SBP > 150 Last Admin: 06/26/18 11:33 Dose: 2.5 mg Enoxaparin Sodium (Lovenox Inj) 40 mg SQ DAILY [facility] Last Admin: 06/27/18 09:05 Dose: 40 mg Hydralazine HCl (Apresoline Inj) 10 mg IV.PUSH Q30M PRN PRN Reason: SBP > 160 Last Admin: 06/19/18 16:27 Dose: 10 mg Sodium Glycerophosphate 30 (mmol/ Sodium Chloride) 280 mls @ 42 mls/hr IV.SIG UNSCH PRN PRN Reason: For Phosphorus < 2.5 mg/dL Last Infusion: 06/09/18 06:45 Dose: Infused Levetiracetam 1,500 mg/ Sodium (Chloride) 115 mls @ 400 mls/hr IV.SIG Q12H [facility] Last Admin: 06/27/18 12:56 Dose: 400 mls/hr Lacosamide 50 mg/ Sodium (Chloride) 105 mls @ 105 mls/hr IV.SIG Q12H [facility] Last Infusion: 06/27/18 06:19 Dose: Infused Fosphenytoin Sodium 200 mgpe/ (Sodium Chloride) 54 mls @ 216 mls/hr IV.SIG Q8HR [facility] Last Admin: 06/27/18 13:00 Dose: 216 mls/hr Lactulose (Lactulose Liq) 30 ml PO DAILY PRN PRN Reason: SEVERE CONSITIPATION Last Admin: 06/26/18 14:24 Dose: 30 ml Lisinopril (Prinivil) 40 mg PO DAILY [facility] Last Admin: 06/27/18 14:06 Dose: Not Given Lorazepam (Ativan Inj) 1 mg IV.PUSH Q10M PRN PRN Reason: SEIZURES Last Admin: 06/13/18 12:48 Dose: 1 mg Methylphenidate HCl (Ritalin) 10 mg PO BID@0700,1200 [facility] Last Admin: 06/27/18 12:56 Dose: 10 mg Metoprolol Tartrate (Lopressor) 50 mg PO BID [facility] Last Admin: 06/27/18 14:05 Dose: Not Given Padimate O (Chapstick) 1 applicatio TOPICAL UNSCH PRN PRN Reason: dry lips Last Admin: 06/25/18 08:14 Dose: 1 applicatio Pantoprazole Sodium (Protonix) 40 mg PO DAILY [facility] Last Admin: 06/27/18 09:02 Dose: 40 mg Pravastatin Sodium (Pravachol) 40 mg PO DAILY [facility] Last Admin: 06/27/18 09:02 Dose: 40 mg Senna/Docusate Sodium (Kate-Colace) 1 tab PO BID [facility] Last Admin: 06/27/18 09:02 Dose: 1 tab Sennosides (Senokot) 17.2 mg PO Q12H PRN PRN Reason: Moderate Constipation Last Admin: 06/25/18 08:12 Dose: 17.2 mg Sodium Chloride (Ns Flush) 2 ml IV.FLUSH PRN PRN PRN Reason: FLUSH AFTER USING IV ACCESS Last Admin: 06/24/18 05:24 Dose: 2 ml Sodium Chloride (Ns Flush) 2 ml IV.FLUSH BID [facility] Last Admin: 06/27/18 09:05 Dose: 2 ml Sodium Chloride (Sodium Chloride) 2 gm PO BID [facility] Last Admin: 06/27/18 09:02 Dose: 2 gm Allergies Allergy/AdvReac Type Severity Reaction Status Date / Time No Known Allergies Allergy Verified 05/29/18 15:32 Home Medications Medication Instructions Recorded Confirmed Type amlodipine 5 mg PO DAILY 05/29/18 05/29/18 History clopidogrel 75 mg PO DAILY 05/29/18 05/29/18 History lisinopril 40 mg PO DAILY 05/29/18 05/29/18 History pravastatin 40 mg PO DAILY 05/29/18 05/29/18 History Advance Directives Living Will: Unknown Health Care Surrogate Name and Number: Unknown Power of Surgical Services Asst: Unknown Physical Exam Vital Signs: Vital Signs - 24 hr 06/26/18 16:00 06/26/18 20:00 06/26/18 20:45 Temperature 98.6 F 97.9 F Pulse Rate 87 82 Respiratory Rate 17 18 Blood Pressure 109/55 L 124/58 L Pulse Oximetry 96 99 99 06/27/18 00:35 06/27/18 04:00 06/27/18 05:10 Temperature 97.5 F L 97.3 F L Pulse Rate 73 65 Respiratory Rate 20 16 18 Blood Pressure 128/68 115/58 L Pulse Oximetry 100 100 06/27/18 08:00 06/27/18 09:51 06/27/18 10:20 Temperature 97.2 F L Pulse Rate 68 84 Respiratory Rate 20 Blood Pressure 113/56 L 105/54 L Pulse Oximetry 100 93 L 94 L 06/27/18 12:00 Temperature 97.5 F L Pulse Rate 82 Respiratory Rate 20 Blood Pressure 117/56 L Pulse Oximetry 94 L I&O: Intake & Output 06/25/18 06/26/18 06/27/18 06/28/18 06:59 06:59 06:59 06:59 Intake Total 1163 / 1163 761 / 761 1212 / 1212 Output Total 1725 / 1725 1600 / 1600 1300 / 1300 Balance -562 / -562 -839 / -839 -88 / -88 Weight 132 lb 7.965 oz 133 lb 13.129 oz 121 lb 4.068 oz Physical Exam: CONSTITUTIONAL/GENERAL: This is an adequately nourished patient, in two-point restraints, in no apparent distress. TUBES/LINES/DRAINS: PIV, Dowell SKIN: No jaundice, rashes, or lesions. Ecchymoses on upper extremities. No wounds seen anteriorly. Skin temperature appropriate. Not diaphoretic. HEAD: Healing craniotomy incision. EYES: Pupils equal and round and reactive. Extraocular motions intact. No scleral icterus. No injection or drainage. Fundi not examined. ENT: Hearing grossly normal. Nose without bleeding or purulent drainage. Throat without visible erythema, exudates, masses, or lesions. NECK: Trachea midline. Supple, nontender. No palpable thyroid enlargement or nodularity. CARDIOVASCULAR: Regular rate and rhythm with 2/6 systolic ejection murmur, no gallops, or rubs. No JVD. Peripheral pulses symmetric. RESPIRATORY/CHEST: Symmetric, unlabored respirations. Clear to auscultation. Breath sounds equal bilaterally. No wheezes, rales, or rhonchi. GASTROINTESTINAL: Abdomen soft, non-tender, nondistended. No hepato-splenomegaly , or palpable masses. No guarding. Bowel sounds present. GENITOURINARY: Without palpable bladder distension. Dowell catheter in place. MUSCULOSKELETAL: Extremities without clubbing, cyanosis, or edema. No joint tenderness or effusion noted. No calf tenderness. No mottling or clubbing. LYMPHATICS: No palpable cervical or supraclavicular adenopathy. NEUROLOGICAL: Awake and alert. Motor and sensory grossly within normal limits. Speech soft, confused, oriented to self, remembered her had visited today. PSYCHIATRIC: Pleasant, smiling, appears anxious, clinging to my hand, no depression. no apparent hallucinations or other psychotic thought process. . Diagnostic Tests Laboratory: Laboratory Results - last 72 hr 06/26/18 06/26/18 06/26/18 08:00 17:56 17:57 Puncture Site Right radial Patient Temperature 98.6 O2 Saturation 96 ABG pH 7.45 H ABG pCO2 42 ABG pO2 113 ABG HCO3 29 H ABG O2 Content 15.4 ABG Base Excess 4.9 H ABG Methemoglobin 1.4 Pedro Pablo Test Present Hemoglobin 11.3 L Carboxyhemoglobin 1.1 O2 Delivery Device Nasal cannula Liter Flow 2.00 Critical Value No Sodium 139 Potassium 3.6 Chloride 102 Carbon Dioxide 29.8 Anion Gap 7 BUN 6 L Creatinine 0.28 L Estimated GFR Greater than 89 POC Glucose 127 H Random Glucose 120 H Calcium 8.5 06/26/18 19:33 Puncture Site Patient Temperature O2 Saturation ABG pH ABG pCO2 ABG pO2 ABG HCO3 ABG O2 Content ABG Base Excess ABG Methemoglobin Pedro Pablo Test Hemoglobin Carboxyhemoglobin O2 Delivery Device Liter Flow Critical Value Sodium 141 Potassium Chloride Carbon Dioxide Anion Gap BUN Creatinine Estimated GFR POC Glucose Random Glucose Calcium Result Diagrams: 06/22/18 04:28 06/26/18 19:33 Microbiology: Microbiology 06/11/18 18:40 Sputum - Endotracheal Gram Stain - Final 06/11/18 18:40 Sputum - Endotracheal Sputum Culture - Final Enterobacter cloacae Beta Strep not group A 06/09/18 06:35 Sputum - Endotracheal Gram Stain - Final 06/09/18 06:35 Sputum - Endotracheal Sputum Culture - Final Heavy growth normal respiratory flores 06/01/18 10:21 Blood - Peripheral Aerobic Blood Culture - Final No growth in 5 days 06/01/18 10:21 Blood - Peripheral Anaerobic Blood Culture - Final No growth in 5 days 06/01/18 10:16 Blood - Peripheral Aerobic Blood Culture - Final No growth in 5 days 06/01/18 10:16 Blood - Peripheral Anaerobic Blood Culture - Final No growth in 5 days Imaging: Chest X-Ray 05/29/18 15:37 CONCLUSION: Chronic interstitial changes. No acute abnormality. Head MRI 05/29/18 15:41 CONCLUSION: 1. There is a 2.3 x 1.7 cm mass within the body of the left lateral ventricle measuring 2.3 x 1.7 cm. The left lateral ventricle is prominent may be related to production of CSF from this mass. 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 This mass may have hemorrhaged causing the blood layering in the lateral ventricles. 2. There is also a mass in the cerebellopontine angle on the left compressing upon the brainstem measuring 1.8 x 1.4 cm. 3. Chronic ischemic small vessel vasculopathy. Abdomen/Pelvis CT 05/30/18 00:00 CONCLUSION: 1. 1.3 cm left adrenal mass. Findings are concerning for metastatic disease given findings of brain metastasis and lung mass. 2. 1.6 cm indeterminate low-density lesion in the posterior right lobe of the liver with numerous additional subcentimeter hypodense lesions which are too small to fully characterize. Although metastatic disease cannot be entirely excluded, suspect these reflect cysts. 3. Colonic diverticulosis without evidence for diverticulitis. 4. Otherwise, no additional definitive evidence for metastatic disease to the abdomen or pelvis. Chest CT 05/30/18 00:00 CONCLUSION: 1. 1.6 x 1.1 cm spiculated right upper lobe lung nodule concerning for metastasis or primary lung malignancy. 2. Additional 3 mm subpleural nodules in the superior segment of the left lower lobe are nonspecific. 3. Mild atelectasis/scarring at the right lung base with more prominent airspace consolidation at the left lung base. 4. 1.1 x 1.4 cm soft tissue density abnormality emanating from the inferior lateral margin of the right breast implant which may reflect a focal disruption. However, cannot exclude an adjacent breast mass. Correlation with patient's history and prior breast imaging is recommended. Head CTA 05/31/18 00:00 CONCLUSION: 1. There is no evidence for intracranial aneurysm or stenosis. 2. Intraventricular mass as previously described. 3. There is no evidence for mass at the cerebellopontine angle. The finding on the recent MRI was likely related to pulsation artifact in this region. . Chest X-Ray 06/01/18 00:00 CONCLUSION: No acute cardiopulmonary disease identified. Chest X-Ray 06/05/18 00:00 CONCLUSION: 1. Right upper lobe nodule. 2. Bibasilar infiltrates. 3. Adequate placement of endotracheal tube. Head MRI 06/06/18 00:00 CONCLUSION: 1. 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 2. Intraventricular blood as described. Left lateral ventricle is slightly smaller. 3. Air and small amount of acute blood in the subdural spaces of both convexities. There is also small subdural blood in between the leaves of the falx. 4. Roughly 5 mm of rightward midline shift, improved. Chest X-Ray 06/08/18 06:00 CONCLUSION: Tracheostomy tube and nasogastric tube position. Lungs are grossly clear. Head CT 06/09/18 14:55 CONCLUSION: 1. Postoperative findings with ventriculostomy catheter in place, pneumocephalus, and moderate amount of intraventricular blood in the left occipital horn and minimal blood in the right occipital horn. 2. Ventricular size is similar to preoperative CT. No evidence of midline shift or mass effect. . Chest X-Ray 06/11/18 06:00 CONCLUSION: Basilar airspace disease similar to June 08. Endotracheal tube and nasogastric tube in good position. Chest X-Ray 06/11/18 18:00 CONCLUSION: 1. Endotracheal tube 1.6 cm above the claire. 2. Bibasilar consolidation. 3. Nodular density right upper lobe. Chest X-Ray 06/12/18 06:00 CONCLUSION: Endotracheal tube and nasogastric tube in good position. Basilar airspace disease not significantly changed from [address] 06/12/18 07:21 CONCLUSION: 1. 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 2. Improved pneumocephalus and intraventricular blood products. 3. No intercurrent acute hemorrhage, midline shift or hydrocephalus. . Chest X-Ray 06/13/18 06:00 CONCLUSION: Basilar airspace disease slightly improved from June 12. Endotracheal tube and nasogastric tube unchanged. Chest X-Ray 06/14/18 06:00 CONCLUSION: Stable exam from June 13. Chest X-Ray 06/15/18 06:00 CONCLUSION: 1. Bibasilar densities, stable. 2. Abnormal density/nodule right upper lobe again seen. Head CT 06/15/18 06:00 CONCLUSION: 1. Stable CT brain. 2. Left-sided craniotomy with left frontal parietal encephalomalacia. 3. Very minimal subdural hemorrhage on the left, stable. . Chest X-Ray 06/16/18 05:00 CONCLUSION: No acute abnormality is seen. Chest X-Ray 06/24/18 00:00 CONCLUSION: No obvious infiltrate or mass. No interval change. Head CT 06/26/18 18:07 CONCLUSION: 1. Encephalomalacia left frontal lobe. 2. Cerebral atrophy. 3. No midline shift or mass effect. 4. Very minimal hemorrhage left subdural space, much less prominent from previous study. . Procedures: 06/05: Left frontal craniotomy for resection of tumor 06/11: Extubation 06/11: Reintubation 06/14: Left frontal craniotomy for resection of intraventricular tumor with microscope and cortical motor mapping and endoscope. 06/14: Extubation in PACU with subsequent reintubation 06/17: Therapeutic fiberoptic bronchoscopy 06/19: Extubation . Patient/Family Conference Present at Family Conference: Phone call placed to and message left, pending callback. Family Conference Location: Telephone Issues Discussed: * Palliative care role, purpose, approach * Additional medical, psychosocial, and spiritual history * Patients general health, functional status, and cognitive changes in the months leading up to the current hospitalization * Patient/family understanding of the current medical problems * Patient/family understanding of prognosis * Patients goals of care as best understood from advance directives and/or conversations and/or values * Current medical treatment options and benefits/burdens of those options * Likely scenarios comparing ongoing aggressive care with a transition to comfort measures only * Questions answered to the best of my ability * Palliative care contact information provided Assessment and Plan Pertinent Non-Medical Issues: Psychosocial: Patient transferred up from [facility]. She has a and a son who help her with her care. Spiritual: Settlement Processor available. Legal: No advance directives available. Ethical issues impacting care: Patient is confused and unable to make her own decisions. . Important Contacts: : Kyrie Pryor , cell . Prognosis: Her prognosis is guarded. 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 There is known treatment for the astrocytoma and at this time the patient has not undergone biopsy of the lung lesion. This was planned for when the patient was more stable and plans are now in process to consider rehab services. At this time the patient is confused , not following commands and severely debilitated. If family chooses to pursue rehab this may delay her outpatient workup, during which time she runs a significant risk of advancement of the cancer. Given its suspected metastatic nature, Dr. Kapadia opines that all treatment would be palliative. She is at significant risk for continued decline, complications, readmissions and even . . Code Status: Full Code Plan: PLAN: Legal decision maker: At this time the patient is not capacitated for decision-making. Per [place] statutes, her would be the proxy decision- maker, pending discovery of any previously completed advanced directives. Goals: To be determined. CODE STATUS: FULL CODE SYMPTOMS: * Disorientation: She is disoriented and appears to be oriented only to self and family. She is unaware of her location date or purpose. This may impact her ability to participate in therapy and regain any significant strength. * Debility: She has been hospitalized for a month and was experiencing debility prior to that. It is thought that she has 2 individual primary cancers, astrocytoma in the brain and a right lung mass with potential metastasis to the adrenals, which has not yet been biopsied. Debility is likely secondary to all of the above and given her disorientation, may not make significant progress in rehab. Palliative care will continue to follow the patient during hospital course as condition evolves, to assist patient/decision-maker with understanding of their medical conditions, weighing benefits/burdens of treatment options, for clarification of goals of treatment. Additionally will assist with any symptoms of palliative concern. . Appreciation Thank you for the opportunity to participate in the care of Za Pryor. Attestation Attestation: To help prompt me to consider important information that might be impacting today's encounter and assessment, information from prior notes written by myself or my colleagues may have been "brought forward" into today's note. My signature on this note, however, is an attestation that I personally performed the exam, history, and/or decision-making noted today, and, unless otherwise indicated, the interactions with patient, family, and staff as well as the review of records all occurred today. I also attest that the listed assessment and stated plan reflect my best clinical judgment today based on the combination of historical information, prior notes, and today's exam/ interactions. When time spent is documented, it refers only to time spent today by the signer, or if indicated, combined time spent today by collaborating physician/nurse practitioner. .
--- NOTE | 2018-06-27 16:09 | P.PNNS ---
Subjective Interval history: Remains Neurologically stable, no events overnight Physical Exam Vital signs: Vital Signs 06/26/18 16:00 06/26/18 20:00 06/26/18 20:45 Temperature 98.6 F 97.9 F Pulse Rate 87 82 Respiratory Rate 17 18 Blood Pressure 109/55 L 124/58 L Pulse Oximetry 96 99 99 06/27/18 00:35 06/27/18 04:00 06/27/18 05:10 Temperature 97.5 F L 97.3 F L Pulse Rate 73 65 Respiratory Rate 20 16 18 Blood Pressure 128/68 115/58 L Pulse Oximetry 100 100 06/27/18 08:00 06/27/18 09:51 06/27/18 10:20 Temperature 97.2 F L Pulse Rate 68 84 Respiratory Rate 20 Blood Pressure 113/56 L 105/54 L Pulse Oximetry 100 93 L 94 L 06/27/18 12:00 Temperature 97.5 F L Pulse Rate 82 Respiratory Rate 20 Blood Pressure 117/56 L Pulse Oximetry 94 L Intake & Output 06/26/18 06/27/18 06/27/18 18:59 06:59 18:59 Intake Total 529 / 529 683 / 683 Output Total 500 / 500 800 / 800 Balance 29 / -117 / -117 Weight 55 kg Intake: IV 169 / 169 683 / 683 Cerebyx Inj 200 MGPE In NS Inj 54 / 54 108 / 108 50 ML @ 216 mls/hr IV.SIG Q8HR ALEXIS Rx#:[id number] Vimpat Inj 50 MG In NS Inj 100 210 / 210 ML @ 105 mls/hr IV.SIG Q12H ALEXIS Rx#:[id number] NS Inj 250 ML @ 500 mls/hr IV. 250 / 250 SIG BOLUS ALEXIS Rx#:[id number] Keppra Inj 1,500 MG In NS Inj 115 / 115 115 / 115 100 ML @ 400 mls/hr IV.SIG Q12H ALEXIS Rx#:[id number] Oral 360 / 360 Output: Urine 500 / 500 800 / 800 Other: Date of Last Bowel Movement 06/19/18 06/27/18 06/27/18 # Bowel Movements 1 - Constitutional no acute distress, thin, cooperative - Routine HEENT Exam Head: Present: normocephalic Eye: Present: EOMI, PERRL, normal accommodation ENT: Present: mucous membranes moist, oropharynx clear - Routine Neck Exam Present: supple, full ROM, trachea midline - Routine Respiratory Exam Present: CTA bilaterally - Routine Cardiovascular Exam Present: RRR - Routine Abdominal Exam Present: soft, normoactive bowel sounds - Routine Extremities Exam Present: full ROM, pulses intact, normal capillary refill - Routine Skin Exam Present: intact, warm, normal turgor - Routine Neurological Exam A&O to person, place, intermittently Moves all extremities, mild right hemiparesis Cranial incision c/d/i - Detailed Neurological Exam: Coma Scale Eye Opening: Spontaneous Verbal Response: Sounds Motor Response: Obey commands [place] Coma Scale Total: 12 - Routine Psychiatric Exam Present: cooperative - Urinary Catheter Management Female External Cath placed during this visit: yes Reason for continuing: Acute urinary retention Insertion date: 06/24/18 Insertion time: 14:45 Indwelling Urethral Catheter Cath placed during this visit: yes, but has since been removed by the nurse Reason for continuing: Decision to DC catheter Insertion date: 06/05/18 Insertion time: 08:30 Removal date: 06/16/18 Removal time: 21:51 Assessment and Plan - Plan 78 yo female with vague constellation of symptoms GCS-[address] shows 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 hemorrhagic mass Will follow with you 05/30/18: cont neuro checks in ICU Dr. 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 at midnight on Monday night into Monday Minimize sedating meds, etc. 06/03/18: Appears to be a bit more encephalopathic today, possible contribution of hospital delirium versus her mild hydrocephalus, though favor delirium since her level of alertness remains stable Dr. 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 at midnight tonight Continue to minimize sedating meds, etc. 06/04/18: surgery rescheduled for tomorrow morning patient may resume diet today, NPO at [place] tonight cont hold Plavix 06/05/18 in OR for left frontal cranitomy for resection of intraventricular tumor by Dr. Palacios 06/06/18: POD #1. pt had seizure last night requiring intubation. She has been started on Keppra for seizures. On exam she opens eyes and follows commands. Postoperative MRI Brain w/wo contrast has been ordered and pending. Obtain EEG to assess seizures. Continue ventriculostomy draining, add ICP monitoring. Start sq lovenox for dvt prophylaxis. Will follow. 06/07/18: POD #2. patient neurologically stable, opens eyes and follows commands. Postoperative MRI Brain reviewed by neurosurgery team. Spot EEG reports no ongoing seizures, with high amplitude sharp waves on left?breach rhythm. Critical care plans on extubation today. Continue ventriculostomy draining at 10 mmHg. Final pathology pending. Neurology following for seizure management. Will follow. 06/08/18: POD #3. patient neurologically stable, opens eyes and follows commands. Ventriculostomy draining well with controlled ICPs, will continue at 10mmHg. Pathology still pending. cont seizure management per Neurology. dw critical care. will follow. 06/09/2018 POD#4 Remains Neurologically stable, follows commands Stop sedation wean ventilator to CPAP 5 x 12 and FiO2 30% Continue DuoNeb nebs 4 times daily. Check respiratory parameters and consider extubation Agree with Symbicort 160 about 4.5 mcg 1 puff twice daily and Solu-Medrol 40 mg IV twice daily Continue EVD Would maintain SBP 140-160 to improve CPP. 06/10/2018 POD#5 Seizure yesterday, and last night, have increased Cerebyx and Keppra D/C'ed Barbs would prefer to maintain on 2 agents and high therapeutic levels of Cerebyx, usually best with brain tumors Free Dilantin levels not easily obtainable here. Lets keep level around 20 with standard level remains Neurologically stable wean ventilator to CPAP 5 x 12 and FiO2 30% and if OK, may extubate from Neurosurgical standpoint. 06/11/18 POD #6 seizures controlled overnight, will continue Cerebyx 200 tid and Keppra 1500 bid. Dilantin levels 17.6 today continue critical care - vent weaning - CPAP trials cont EVD draining at 5 mmHg final pathology still pending will follow 06/12/18 POD #7 pt failed extubation yesterday, reintubated- critical care managing repeat EEG 06/11/18 abnormal with sharp activities left hemisphere dilantin levels 18.8 this morning cont current anticonvulsants, will repeat EEG today obtained follow up CT Brain this morning which was reviewed by Dr. Perdue, EVD raised to 15 mmHg neuro exam today appears better final pathology still pending 06/13/18 POD #8 neurologically she is awake, alert EEG yesterday 06/12/18 - mod encephalopathy, no reports of any seizure activities cont current anticonvulsants, Dilantin levels trending up pending today, started on Zosyn for gram neg rods in sputum - per critical care cont EVD challenge, cont at 15 mmHg today, plan to clamp tomorrow will follow 06/14/18 POD #9 neurologically remains awake and alert Ventriculostomy drain clamped today, follow up CT Head tomorrow am will follow 06/15/18: POD #10 neuro exam with no changes, f/u CT Head post EVD clamping reviewed by neurosurgery team, ventriculostomy drain removed, using sterile technique single stitch place, patient tolerated procedure well cont critical care management seizures controlled, continue current anticonvulsants FINAL PATHOLOGY: LOW GRADE NEOPLASM, MOST CONSISTENT WITH PILOCYTIC ASTROCYTOMA ; 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 current management Discussed Path with patient's son 06/17/2018 POD#12 Neuro: no sig. changes seizures controlled aggressive CPAP trials today DPH level 5.5 Bolused with 500 mgs. cont. ICU 06/18/2018 no neurological changes continue CPAP trials, vent wean to extubate remove surgical mamadou Dr. 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 Snell - continue CPAP, ?extubate pulmonology also following 06/20/2018 patient extubated, neuro exam unchanged, stable reconsult medical oncology for reeval for poss chemotherapy for pilocytic astrocytoma radiation oncology eval pending will follow 06/21/2018 neuro exam relatively stable, she waxes and wanes- dw nursing she is stable from NRS standpoint for a step down unit, radiation oncology for work up outpatient and potential xrt appreciate oncology reeval: there is no chemotherapy to offer for the low grade astrocytoma 06/22/2018 continue physical, occupation, and speech therapy increase activity, OOB to chair cont present care will follow 06/23/2018 continue physical, occupation, and speech therapy increase activity, OOB to chair cont present care will follow 06/24/2018 continue physical, occupation, and speech therapy increase activity, OOB to chair cont present care appears to be gradually improving. will follow 06/25/2018 increase activity, OOB to chair PT/OT/ST Rehab Consult cont present care slowly improving. will continue to follow 06/26/2018 OOB to chair TID PT/OT/ST ready for transfer to Rehab from Neurosurgical standpoint cont present care slowly improving. will continue to follow 06/27/2018 Remains Neurologically stable Head CT reviewed Showing slow but continued improvement OOB to chair TID PT/OT/ST ready for transfer to Rehab from Neurosurgical standpoint head MRI w/o PÉREZ to assess hydrocephalus, unclear as to why she is unable to phonate. Patient has a low grade glioma, will not require chemo or radiation. These are biologically not aggressive. Will require subacute rehab/nursing facility cont present care will continue to follow
--- NOTE | 2018-06-27 19:31 | P.PN ---
Subjective Interval history: More alert and squeezed hand. Off O2 and sats 94 Tolerating oral diet. No cough or wheeze Physical Exam Vital signs: Vital Signs 06/26/18 20:00 06/26/18 20:45 06/27/18 00:35 Temperature 97.9 F 97.5 F L Pulse Rate 82 73 Respiratory Rate 18 20 Blood Pressure 124/58 L 128/68 Pulse Oximetry 99 99 100 06/27/18 04:00 06/27/18 05:10 06/27/18 08:00 Temperature 97.3 F L 97.2 F L Pulse Rate 65 68 Respiratory Rate 16 18 20 Blood Pressure 115/58 L 113/56 L Pulse Oximetry 100 100 06/27/18 09:51 06/27/18 10:20 06/27/18 12:00 Temperature 97.5 F L Pulse Rate 84 82 Respiratory Rate 20 Blood Pressure 105/54 L 117/56 L Pulse Oximetry 93 L 94 L 94 L 06/27/18 16:00 Temperature 97.6 F Pulse Rate 88 Respiratory Rate 20 Blood Pressure 111/54 L Pulse Oximetry 94 L Intake & Output 06/27/18 06/27/18 06/28/18 06:59 18:59 06:59 Intake Total 683 / 683 169 / 169 Output Total 800 / 800 1200 / 1200 Balance -117 / -117 -1031 / -1031 Weight 55 kg Intake: IV 683 / 683 169 / 169 Cerebyx Inj 200 MGPE In NS Inj 108 / 108 54 / 54 50 ML @ 216 mls/hr IV.SIG Q8HR [facility]LEX[facility] Rx#:[id number] Vimpat Inj 50 MG In NS Inj 100 210 / 210 ML @ 105 mls/hr IV.SIG Q12H ALEX[facility] Rx#:[id number] NS Inj 250 ML @ 500 mls/hr IV. 250 / 250 SIG BOLUS ALEXIS Rx#:[id number] Keppra Inj 1,500 MG In NS Inj 115 / 115 115 / 115 100 ML @ 400 mls/hr IV.SIG Q12H ALEXIS Rx#:[id number] Output: Urine 800 / 800 1200 / 1200 Other: Date of Last Bowel Movement 06/27/18 06/27/18 # Bowel Movements 1 Narrative: Awake responds to command and squeezed hand. GENERAL: Elderly white female in no distress SKIN: Warm and dry. HEAD: Atraumatic. Normocephalic. EYES: Pupils equal and round. No scleral icterus. No injection or drainage. ENT: No nasal bleeding or discharge. Mucous membranes pink and moist. NECK: Trachea midline. No JVD. CARDIOVASCULAR: Regular rate and rhythm. RESPIRATORY: Occasional wheezes bilaterally and basal crackles. GASTROINTESTINAL: Abdomen soft, non-tender, nondistended. Hepatic and splenic margins not palpable. MUSCULOSKELETAL: Extremities without clubbing, cyanosis, or edema. No obvious deformities. NEUROLOGICAL: Moves her arms and feet and squeezed hand - Urinary Catheter Management Female External Cath placed during this visit: yes Reason for continuing: Acute urinary retention Insertion date: 06/24/18 Insertion time: 14:45 Indwelling Urethral Catheter Cath placed during this visit: yes, but has since been removed by the nurse Reason for continuing: Decision to DC catheter Insertion date: 06/05/18 Insertion time: 08:30 Removal date: 06/16/18 Removal time: 21:51 Results - Labs CBC & Chem 7: 06/22/18 04:28 06/26/18 19:33 Laboratory Results - last 24 hr 06/26/18 19:33 Sodium 141 Assessment and Plan - Assessment (1) COPD (chronic obstructive pulmonary disease) Code(s): J44.9 - Chronic obstructive pulmonary disease, unspecified Status: Acute (2) Right upper lobe pulmonary nodule Code(s): R91.1 - Solitary pulmonary nodule Status: Acute (3) Intraventricular hemorrhage, nontraumatic Code(s): I61.5 - Nontraumatic intracerebral hemorrhage, intraventricular Status: Acute (4) Hypertensive emergency Code(s): I16.1 - Hypertensive emergency Status: Acute (5) Metabolic encephalopathy Code(s): G93.41 - Metabolic encephalopathy Status: Acute (6) Altered mental status Code(s): R41.82 - Altered mental status, unspecified Status: Acute (7) History of peripheral arterial disease Code(s): Z86.79 - Personal history of other diseases of the circulatory system Status: Chronic (8) History of hypertension Code(s): Z86.79 - Personal history of other diseases of the circulatory system Status: Chronic (9) Cessation of tobacco use in previous 12 months Code(s): Z87.891 - Personal history of nicotine dependence Status: Chronic - Plan 1 continue O2 nasal cannula 2 L 2. Continue DuoNeb nebs 3 times daily. 3. Incentive spirometry 4 times daily 4. Workup for lung mass when clinically stable 5. Continue physical therapy 6 Symbicort 160 about 4.5 mcg 1 puff twice daily 7. We will plan CT-guided needle biopsy of lung nodule next week if stable. (6) Altered mental status Qualifiers: Altered mental status type: unspecified Qualified Code(s): R41.82 - Altered mental status, unspecified
--- NOTE | 2018-06-27 21:40 | P.PNIM ---
Subjective Interval history: Follow-up for hemorrhagic intracranial mass status post surgical resection, lung mass. Patient is much more alert today. is at bedside. She follows some simple commands but no meaningful communications. Physical Exam Vital signs: Vital Signs 06/27/18 00:35 06/27/18 04:00 06/27/18 05:10 Temperature 97.5 F L 97.3 F L Pulse Rate 73 65 Respiratory Rate 20 16 18 Blood Pressure 128/68 115/58 L Pulse Oximetry 100 100 06/27/18 08:00 06/27/18 09:51 06/27/18 10:20 Temperature 97.2 F L Pulse Rate 68 84 Respiratory Rate 20 Blood Pressure 113/56 L 105/54 L Pulse Oximetry 100 93 L 94 L 06/27/18 12:00 06/27/18 16:00 06/27/18 20:00 Temperature 97.5 F L 97.6 F 98.2 F Pulse Rate 82 88 96 H Respiratory Rate 20 20 20 Blood Pressure 117/56 L 111/54 L 114/57 L Pulse Oximetry 94 L 94 L 97 Intake & Output 06/27/18 06/27/18 06/28/18 06:59 18:59 06:59 Intake Total 683 / 683 169 / 169 Output Total 800 / 800 1200 / 1200 Balance -117 / -117 -1031 / -1031 Weight 55 kg Intake: IV 683 / 683 169 / 169 Cerebyx Inj 200 MGPE In NS Inj 108 / 108 54 / 54 50 ML @ 216 mls/hr IV.SIG Q8HR ALEXIS Rx#:[id number] Vimpat Inj 50 MG In NS Inj 100 210 / 210 ML @ 105 mls/hr IV.SIG Q12H ALEXIS Rx#:[id number] NS Inj 250 ML @ 500 mls/hr IV. 250 / 250 SIG BOLUS ALEXIS Rx#:[id number] Keppra Inj 1,500 MG In NS Inj 115 / 115 115 / 115 100 ML @ 400 mls/hr IV.SIG Q12H ALEXIS Rx#:[id number] Output: Urine 800 / 800 1200 / 1200 Other: Date of Last Bowel Movement 06/27/18 06/27/18 # Bowel Movements 1 Narrative: GENERAL: More alert, NAD. SKIN: Warm and dry. HEAD: S/p craniotomy. EYES: No scleral icterus. No injection or drainage. NECK: Supple, trachea midline. No JVD or lymphadenopathy. CARDIOVASCULAR: Regular rate and rhythm without murmurs, gallops, or rubs. RESPIRATORY: Breath sounds equal bilaterally. No accessory muscle use. GASTROINTESTINAL: Abdomen soft, non-tender, nondistended. MUSCULOSKELETAL: No cyanosis, or edema. BACK: Nontender without obvious deformity. No CVA tenderness. Urinary Catheter Management Female External: Cath placed during this visit: yes Reason for continuing: Acute urinary retention Insertion date: 06/24/18 Insertion time: 14:45 Indwelling Urethral Catheter: Cath placed during this visit: yes, but has since been removed by the nurse Reason for continuing: Decision to DC catheter Insertion date: 06/05/18 Insertion time: 08:30 Removal date: 06/16/18 Removal time: 21:51 Results Labs CBC & Chem 7: 06/22/18 04:28 06/26/18 19:33 Assessment and Plan Plan 78-year-old white female was transferred from [facility] with 1 week history of memory loss hallucination and found to have subacute anterior ventricular hemorrhage and 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 Kapadia review case recommended no chemo and refer to radiation oncology. Per oncology, Dr. 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 -Dr. Clemons has been consulted and recommends outpatient follow-up for radiation treatment -EEG originally negative for seizures -Repeat EEG 06/06 field possible left frontal breakthrough. -MRA 06/06 brain revealed left lateral ventricle resection, intervertebral hemorrhage slightly decreased. Small subdural hematoma. Postsurgical. Rightward shift 5 mm. -Currently on fosphenytoin 200 mg every 8 hours. -On levetiracetam 1500 mg IV twice daily. -Continue lacosamide 50 mg twice daily per neurosurgery -After discussion with patient's , we consulted Palliative care team 2/13 /2019. Acute hypoxic and hypercarbic respiratory failure-now extubated and on nasal cannula 2 L oxygen Previous tobacco use Right upper lobe mass HCAP ventilator associated pneumonia -Pulmonology consulted for right upper lobe mass concerning for primary malignancy, with adrenal mass -Pulmonary Dr. Evans suggesting CT-guided biopsy and PET scan once clinically more stable -Probable biopsy next week per Dr. Evans. Hypertensive emergency History of hypertension Peripheral arterial disease -Continue home enalapril 40 mg daily and amlodipine 5 mg daily increased to 10 mg daily, continue pravastatin 40 mg daily. metoprolol tartrate 50 mg twice daily -We will place holding parameters on BP meds. Today, BP has been within normal range without any meds. 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 Lovenox. Progress Note: Quality VTE Deep Vein Thrombosis/Pulmonary Embolism Present on Admission: No
[2018-06-27] MEDS ORDERED: Gadobutrol PF 7.5 MMOL/7.5 ML Vial (for RAD) IV.SIG ONE (22:28)
--- NOTE | 2018-06-27 22:40 | MR ---
EXAM DATE: 06/27/2018 10:32 PM EST AGE/SEX: 78 years / Female INDICATIONS: Mass. CLINICAL DATA: This is the patient's subsequent encounter. Patient reports that signs and symptoms h ave been present for 1 month and indicates a pain score of 0/10. MEDICAL/SURGICAL HISTORY: Hypertension. Breast augmentation. Brain COMPARISON: [facility] [place], CT HEAD W/O CONTRAST, 06/26/2018. MRI of the brain 06/06/2018 and 05/29/2018. TECHNIQUE: Multiplanar, multisequence examination of the brain was performed without and with 6 ml Ga davist (gadobutrol) contrast as a single exam dose. FINDINGS: Cerebrum: Residual blood products within the left lateral ventricle as well as within the subarachno id space of both cerebral hemispheres and within the left frontal lobe. This is all felt to be postsu rgical in nature. Ventriculomegaly is unchanged. Chronic cystic hygromas noted bilaterally. These are stable.. No evidence of midline shift, mass lesion, hemorrhage or acute infarction. The pituitary gland and suprasellar cistern are normal in configuration. White Matter: No significant signal abnormalities are seen in the white matter. Posterior Fossa: The cerebellum and brainstem are intact. The 4th ventricle is midline. The cerebel lopontine angle is unremarkable. The cerebellar tonsils are normal in position. Diffusion Imaging: No focal areas of restricted diffusion are seen. No evidence of acute infarction . Extracranial: Craniotomy defect involving the left frontotemporal lobe. The visualized portions of th e orbits and paranasal sinuses are unremarkable. Scattered fluid signal within the mastoid air cells bilaterally. Post Contrast: No abnormal areas of parenchymal or dural enhancement. No evidence of blood-brain ba rrier breakdown. CONCLUSION: 1. Scattered blood products within the subarachnoid space bilaterally, intraparenchymal within the l eft frontal lobe, and within the left lateral ventricle all felt to be postoperative related. No acut e hemorrhage seen. 2. Prior left frontotemporal craniotomy. 3. No residual mass seen within the left lateral ventricle. Electronically signed by: Clem Turner MD Board Certified Radiologist 06/27/2018 10:38 PM EST
[2018-06-28] MEDS: Artificial Tears Opth Drops 15 ML Bottle EACH EYE SCH ×3 (03:50→21:04)
[2018-06-28] MEDS: Fosphenytoin Inj 200 MGPE in Sodium Chlor 0.9% Inj 50 ML IV.SIG SCH ×3 (05:22→21:11)
[2018-06-28] MEDS: Lacosamide Inj 50 MG in Sodium Chlor 0.9% Inj 100 ML IV.SIG SCH ×3 (06:58→17:31)
[2018-06-28] MEDS: Enoxaparin Inj 40 MG/0.4 ML Syringe SQ SCH (08:57)
[2018-06-28] MEDS: Senna/Docusate Sodium 8.6/50 MG Tablet PO SCH ×2 (08:58→21:15)
[2018-06-28] MEDS: Sodium Chloride 1 GM Tablet PO SCH ×2 (08:58→21:15)
[2018-06-28] MEDS: Budesonide-Formoterol 160/4.5 MCG 6 GM Inhaler INH SCH ×2 (08:59→21:04)
--- NOTE | 2018-06-28 11:38 | P.PNNS ---
Subjective Interval history: sitting up in chair working with physical therapy. smiling. no report of neuro changes overnight. <Samanta Banda - Last Filed: 06/28/18 11:40> Physical Exam Vital signs: Vital Signs 06/27/18 12:00 06/27/18 16:00 06/27/18 20:00 Temperature 97.5 F L 97.6 F 98.2 F Pulse Rate 82 88 96 H Respiratory Rate 20 20 20 Blood Pressure 117/56 L 111/54 L 114/57 L Pulse Oximetry 94 L 94 L 97 06/28/18 00:00 06/28/18 04:00 06/28/18 08:00 Temperature 98.3 F 97.5 F L 98.4 F Pulse Rate 89 87 76 Respiratory Rate 20 20 18 Blood Pressure 144/63 H 144/65 H 122/59 L Pulse Oximetry 93 L 95 96 Intake & Output 06/27/18 06/28/18 06/28/18 18:59 06:59 18:59 Intake Total 169 / 169 328 / 328 Output Total 1200 / 1200 600 / 600 Balance -1031 / -1031 -272 / -272 Weight 55 kg Intake: IV 169 / 169 328 / 328 Cerebyx Inj 200 MGPE In NS Inj 54 / 54 108 / 108 50 ML @ 216 mls/hr IV.SIG Q8HR [facility] Rx#:[id number] Vimpat Inj 50 MG In NS Inj 100 105 / 105 ML @ 105 mls/hr IV.SIG Q12H [facility] Rx#:[id number] Keppra Inj 1,500 MG In NS Inj 115 / 115 115 / 115 100 ML @ 400 mls/hr IV.SIG Q12H [facility] Rx#:[id number] Output: Urine 1200 / 1200 600 / 600 Other: Date of Last Bowel Movement 06/27/18 06/27/18 Narrative: awake, alert mouthing words but not vocalizing followed simple commands mild right side neglect eventually able to track and focus to the right pupils equal moves extremities with right side weakness - Urinary Catheter Management Female External Cath placed during this visit: yes Reason for continuing: Acute urinary retention Insertion date: 06/24/18 Insertion time: 14:45 Indwelling Urethral Catheter Cath placed during this visit: yes, but has since been removed by the nurse Reason for continuing: Decision to DC catheter Insertion date: 06/05/18 Insertion time: 08:30 Removal date: 06/16/18 Removal time: 21:51 <Samanta Banda - Last Filed: 06/28/18 11:40> Vital signs: Vital Signs 06/28/18 08:00 06/28/18 12:00 06/28/18 16:00 Temperature 98.4 F 97.9 F 97.4 F L Pulse Rate 76 83 89 Respiratory Rate 18 18 18 Blood Pressure 122/59 L 114/57 L 122/59 L Pulse Oximetry 96 96 98 06/28/18 20:00 06/29/18 00:00 Temperature 99.3 F 98.4 F Pulse Rate 87 82 Respiratory Rate 18 18 Blood Pressure 130/60 110/55 L Pulse Oximetry 95 93 L Intake & Output 06/28/18 06/29/18 06/29/18 18:59 06:59 18:59 Intake Total 379 / 379 1274 / 1274 Output Total 500 / 500 Balance 379 / 379 774 / 774 Intake: IV 379 / 379 1274 / 1274 Cerebyx Inj 200 MGPE In NS Inj 54 / 54 54 / 54 50 ML @ 216 mls/hr IV.SIG Q8HR [facility] Rx#:[id number] Vimpat Inj 50 MG In NS Inj 100 210 / 210 105 / 105 ML @ 105 mls/hr IV.SIG Q12H [facility] Rx#:[id number] NS Inj 1,000 ML @ 100 mls/hr IV 1000 / 1000 .SIG .Q10H [facility] Rx#:[id number] Keppra Inj 1,500 MG In NS Inj 115 / 115 115 / 115 100 ML @ 400 mls/hr IV.SIG Q12H [facility] Rx#:[id number] Output: Urine 500 / 500 Other: Post Void Residual 2,500 Date of Last Bowel Movement 06/27/18 - Urinary Catheter Management Female External Cath placed during this visit: no Indwelling Urethral Catheter Cath placed during this visit: no <Duke Palacios - Last Filed: 06/29/18 07:17> Assessment and Plan - Plan 78 yo female with vague constellation of symptoms GCS-[address] shows 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 hemorrhagic mass Will follow with you 05/30/18: cont neuro checks in ICU Dr. 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 at midnight on Monday night into Monday Minimize sedating meds, etc. 06/03/18: Appears to be a bit more encephalopathic today, possible contribution of hospital delirium versus her mild hydrocephalus, though favor delirium since her level of alertness remains stable Dr. 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 at midnight tonight Continue to minimize sedating meds, etc. 06/04/18: surgery rescheduled for tomorrow morning patient may resume diet today, NPO at SC tonight cont hold Plavix 06/05/18 in OR for left frontal cranitomy for resection of intraventricular tumor by Dr. Palacios 06/06/18: POD #1. pt had seizure last night requiring intubation. She has been started on Keppra for seizures. On exam she opens eyes and follows commands. Postoperative MRI Brain w/wo contrast has been ordered and pending. Obtain EEG to assess seizures. Continue ventriculostomy draining, add ICP monitoring. Start sq lovenox for dvt prophylaxis. Will follow. 06/07/18: POD #2. patient neurologically stable, opens eyes and follows commands. Postoperative MRI Brain reviewed by neurosurgery team. Spot EEG reports no ongoing seizures, with high amplitude sharp waves on left?breach rhythm. Critical care plans on extubation today. Continue ventriculostomy draining at 10 mmHg. Final pathology pending. Neurology following for seizure management. Will follow. 06/08/18: POD #3. patient neurologically stable, opens eyes and follows commands. Ventriculostomy draining well with controlled ICPs, will continue at 10mmHg. Pathology still pending. cont seizure management per Neurology. dw critical care. will follow. 06/09/2018 POD#4 Remains Neurologically stable, follows commands Stop sedation wean ventilator to CPAP 5 x 12 and FiO2 30% Continue DuoNeb nebs 4 times daily. Check respiratory parameters and consider extubation Agree with Symbicort 160 about 4.5 mcg 1 puff twice daily and Solu-Medrol 40 mg IV twice daily Continue EVD Would maintain SBP 140-160 to improve CPP. 06/10/2018 POD#5 Seizure yesterday, and last night, have increased Cerebyx and Keppra D/C'ed Barbs would prefer to maintain on 2 agents and high therapeutic levels of Cerebyx, usually best with brain tumors Free Dilantin levels not easily obtainable here. Lets keep level around 20 with standard level remains Neurologically stable wean ventilator to CPAP 5 x 12 and FiO2 30% and if OK, may extubate from Neurosurgical standpoint. 06/11/18 POD #6 seizures controlled overnight, will continue Cerebyx 200 tid and Keppra 1500 bid. Dilantin levels 17.6 today continue critical care - vent weaning - CPAP trials cont EVD draining at 5 mmHg final pathology still pending will follow 06/12/18 POD #7 pt failed extubation yesterday, reintubated- critical care managing repeat EEG 06/11/18 abnormal with sharp activities left hemisphere dilantin levels 18.8 this morning cont current anticonvulsants, will repeat EEG today obtained follow up CT Brain this morning which was reviewed by Dr. Perdue, EVD raised to 15 mmHg neuro exam today appears better final pathology still pending 06/13/18 POD #8 neurologically she is awake, alert EEG yesterday 06/12/18 - mod encephalopathy, no reports of any seizure activities cont current anticonvulsants, Dilantin levels trending up pending today, started on Zosyn for gram neg rods in sputum - per critical care cont EVD challenge, cont at 15 mmHg today, plan to clamp tomorrow will follow 06/14/18 POD #9 neurologically remains awake and alert Ventriculostomy drain clamped today, follow up CT Head tomorrow am will follow 06/15/18: POD #10 neuro exam with no changes, f/u CT Head post EVD clamping reviewed by neurosurgery team, ventriculostomy drain removed, using sterile technique single stitch place, patient tolerated procedure well cont critical care management seizures controlled, continue current anticonvulsants FINAL PATHOLOGY: LOW GRADE NEOPLASM, MOST CONSISTENT WITH PILOCYTIC ASTROCYTOMA ; 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 current management Discussed Path with patient's son 06/17/2018 POD#12 Neuro: no sig. changes seizures controlled aggressive CPAP trials today DPH level 5.5 Bolused with 500 mgs. cont. ICU 06/18/2018 no neurological changes continue CPAP trials, vent wean to extubate remove surgical mamadou Dr. 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 Snell - continue CPAP, ?extubate pulmonology also following 06/20/2018 patient extubated, neuro exam unchanged, stable reconsult medical oncology for reeval for poss chemotherapy for pilocytic astrocytoma radiation oncology eval pending will follow 06/21/2018 neuro exam relatively stable, she waxes and wanes- dw nursing she is stable from NRS standpoint for a step down unit, radiation oncology for work up outpatient and potential xrt appreciate oncology reeval: there is no chemotherapy to offer for the low grade astrocytoma 06/22/2018 continue physical, occupation, and speech therapy increase activity, OOB to chair cont present care will follow 06/23/2018 continue physical, occupation, and speech therapy increase activity, OOB to chair cont present care will follow 06/24/2018 continue physical, occupation, and speech therapy increase activity, OOB to chair cont present care appears to be gradually improving. will follow 06/25/2018 increase activity, OOB to chair PT/OT/ST Rehab Consult cont present care slowly improving. will continue to follow 06/26/2018 OOB to chair TID PT/OT/ST ready for transfer to Rehab from Neurosurgical standpoint cont present care slowly improving. will continue to follow 06/27/2018 Remains Neurologically stable Head CT reviewed Showing slow but continued improvement OOB to chair TID PT/OT/ST ready for transfer to Rehab from Neurosurgical standpoint head MRI w/o PÉREZ to assess hydrocephalus, unclear as to why she is unable to phonate. Patient has a low grade glioma, will not require chemo or radiation. These are biologically not aggressive. Will require subacute rehab/nursing facility cont present care will continue to follow 06/28/2018 POD #23 neuro stable follow up head MRI reviewed by neurosurgery team, consult placed to ENT specialist for laryngoscopy of vocal cords due to loss of voice continue physical, occupational, and speech therapy will follow <Samatna Banda - Last Filed: 06/28/18 11:40> - Attending Attestation I have personally seen and examined the patient, reviewed pertinent labs and imaging studies with the Neurosurgery team. I agree with Ms. Banda's ( Neurosurgery - [place]), assessment as well as plan of care. <Duke Palacios - Last Filed: 06/29/18 07:17>
[2018-06-28] MEDS: amLODIPine 5 MG Tablet PO SCH (12:11)
[2018-06-28] MEDS: Metoprolol Tartrate 50 MG Tablet PO SCH ×2 (12:11→21:15)
[2018-06-28] MEDS: levETIRAcetam Inj 1,500 MG in Sodium Chlor 0.9% Inj 100 ML IV.SIG SCH ×2 (12:11→22:58)
[2018-06-28] MEDS: Lisinopril 20 MG Tablet PO SCH (12:11)
--- NOTE | 2018-06-28 17:00 | P.PNPAL ---
Reason for Visit Reason for visit: a. To assist with evaluation and management of symptoms including: Anxiety, encephalopathy, debility b. To assist medical decision maker(s) with: better understanding of current medical conditions; weighing benefits/burdens of medical treatment options; making medical treatment decisions. Subjective Subjective/Interval History: This is a 78-year old female with a past medical history of hypertension, PAD status post stenting, arthritis who was transferred to [facility] from [facility] with generalized complaints of memory loss, right leg weakness, speech deficit and hallucinations for the prior week initial workup showed subacute intraventricular hemorrhage into the left lateral ventricle with a focal thrombus possibly obstructing the foramina of [place] with enlargement of the left lateral ventricle compared to the prior MRI. Also trace blood in the occipital horn of the left lateral ventricle. Due to the intraventricular hemorrhage, neurosurgery was emergently consulted. She was found to be profoundly hypertensive with a blood pressure of 190-200 requiring IV labetalol 20 mg IV followed by Cardene infusion. She was found to be oriented only to self. MRI of the brain with and without contrast was ordered as well as systolic blood pressure control of less than 150 mmHg. Patient seen today for follow-up of symptom management of Anxiety, encephalopathy, debility and goals of medical treatment. She is sitting up in a chair visiting with her . She is visibly anxious , frequently frowns, puts her hands to her face and shakes her head when she cannot recall and answer. She remains encephalopathic having difficulty with memory recall and problem solving. When I addressed the anxiety whether asking her if she were having difficulty organizing her thoughts she nodded yes. When asked if she felt as though she could not comprehend a problem, she again nodded yes. 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 She was able to nod yes that she had graduated high school and had attended college. She was able to get up with physical therapy today and is sitting up in a chair. Extended bed rest has caused generalized weakness and plans to send her to rehab are in progress. Family noted today that there are actual residence is in [place] and would benefit from rehab placement and oncology follow-up in that area. 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 She was cleared for pured diet with honey consistency thick liquids. . Family/Friend Interactions: Spoke with and patient at bedside. They relayed questions regarding rehab placement and porter sample case, Alena Greenberg RN, met with the family to assist them and answering her questions. The revealed that while they were in [place] at the time of her diagnosis, that is their vacation home. They actually live in [facility] and are seeking rehab placement closer to their place of residence. They would also like to seek cancer treatment in that area. Call placed to Chanel Blanchard APRN to notify Dr. Kapadia of need for referral to [place] oncologist. Reviewed clinical course, interventions attempted, goals of medical treatment patient's current clinical status, past medical, social, family, psychosocial history. Reviewed palliative care purpose and focus as regarding symptom management and support in formulating goals of care. Provided palliative care contact information. All questions answered to the best of my ability. . Advance Directives Health Care Surrogate Name and Number: Unknown Objective Vital Signs: Vital Signs 06/27/18 20:00 06/28/18 00:00 06/28/18 04:00 Temperature 98.2 F 98.3 F 97.5 F L Pulse Rate 96 H 89 87 Respiratory Rate 20 20 20 Blood Pressure 114/57 L 144/63 H 144/65 H Pulse Oximetry 97 93 L 95 06/28/18 08:00 06/28/18 12:00 Temperature 98.4 F 97.9 F Pulse Rate 76 83 Respiratory Rate 18 18 Blood Pressure 122/59 L 114/57 L Pulse Oximetry 96 96 Intake & Output 06/27/18 06/28/18 06/28/18 18:59 06:59 18:59 Intake Total 169 / 169 328 / 328 Output Total 1200 / 1200 600 / 600 Balance -1031 / -1031 -272 / -272 Weight 121 lb 4.068 oz Intake: IV 169 / 169 328 / 328 Cerebyx Inj 200 MGPE In NS Inj 54 / 54 108 / 108 50 ML @ 216 mls/hr IV.SIG Q8HR [facility] Rx#:[id number] Vimpat Inj 50 MG In NS Inj 100 105 / 105 ML @ 105 mls/hr IV.SIG Q12H [facility] Rx#:[id number] Keppra Inj 1,500 MG In NS Inj 115 / 115 115 / 115 100 ML @ 400 mls/hr IV.SIG Q12H [facility] Rx#:[id number] Output: Urine 1200 / 1200 600 / 600 Other: Date of Last Bowel Movement 06/27/18 06/27/18 Physical Exam: CONSTITUTIONAL/GENERAL: This is an adequately nourished patient, sitting up in a chair, in no apparent distress. TUBES/LINES/DRAINS: PIV NECK: Trachea midline. Supple, nontender. No palpable thyroid enlargement or nodularity. CARDIOVASCULAR: Regular rate and rhythm with 2/6 systolic ejection murmur, no gallops, or rubs. No JVD. Peripheral pulses symmetric. RESPIRATORY/CHEST: Symmetric, unlabored respirations. Clear to auscultation. Breath sounds equal bilaterally. No wheezes, rales, or rhonchi. GASTROINTESTINAL: Abdomen soft, non-tender, nondistended. No hepato-splenomegaly , or palpable masses. No guarding. Bowel sounds present. GENITOURINARY: Without palpable bladder distension. Dowell catheter in place. MUSCULOSKELETAL: Extremities without clubbing, cyanosis, or edema. No joint tenderness or effusion noted. No calf tenderness. No mottling or clubbing. Right-sided weakness. NEUROLOGICAL: Awake and alert. Motor and sensory grossly within normal limits. Speech soft, confused, oriented to self. PSYCHIATRIC: Pleasant, smiling, appears anxious, clinging to my hand, no depression. no apparent hallucinations or other psychotic thought process. . Diagnostic Tests Laboratory: Laboratory Results - last 72 hr 06/26/18 06/26/18 06/26/18 08:00 17:56 17:57 Puncture Site Right radial Patient Temperature 98.6 O2 Saturation 96 ABG pH 7.45 H ABG pCO2 42 ABG pO2 113 ABG HCO3 29 H ABG O2 Content 15.4 ABG Base Excess 4.9 H ABG Methemoglobin 1.4 Pedro Pablo Test Present Hemoglobin 11.3 L Carboxyhemoglobin 1.1 O2 Delivery Device Nasal cannula Liter Flow 2.00 Critical Value No Sodium 139 Potassium 3.6 Chloride 102 Carbon Dioxide 29.8 Anion Gap 7 BUN 6 L Creatinine 0.28 L Estimated GFR Greater than 89 POC Glucose 127 H Random Glucose 120 H Calcium 8.5 06/26/18 19:33 Puncture Site Patient Temperature O2 Saturation ABG pH ABG pCO2 ABG pO2 ABG HCO3 ABG O2 Content ABG Base Excess ABG Methemoglobin Pedro Pablo Test Hemoglobin Carboxyhemoglobin O2 Delivery Device Liter Flow Critical Value Sodium 141 Potassium Chloride Carbon Dioxide Anion Gap BUN Creatinine Estimated GFR POC Glucose Random Glucose Calcium Result Diagrams: 06/22/18 04:28 06/26/18 19:33 Procedures: 06/05: Left frontal craniotomy for resection of tumor 06/11: Extubation 06/11: Reintubation 06/14: Left frontal craniotomy for resection of intraventricular tumor with microscope and cortical motor mapping and endoscope. 06/14: Extubation in PACU with subsequent reintubation 06/17: Therapeutic fiberoptic bronchoscopy 06/19: Extubation . Assessment and Plan Pertinent Non-Medical Issues: Psychosocial: Patient transferred up from [facility]. She and her have a condominium in [place], but live in [place]. She has a and a son who help her with her care. Spiritual: [employer] available. Legal: No advance directives available. Ethical issues impacting care: Patient is confused and unable to make her own decisions. . Important Contacts: : Kyrie Pryor , cell . Prognosis: Her prognosis is guarded. 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 There is known treatment for the astrocytoma and at this time the patient has not undergone biopsy of the lung lesion. This was planned for when the patient was more stable and plans are now in process to consider rehab services. At this time the patient is confused , not following commands and severely debilitated. If family chooses to pursue rehab this may delay her outpatient workup, during which time she runs a significant risk of advancement of the cancer. Given its suspected metastatic nature, Dr. Kapadia opines that all treatment would be palliative. She is at significant risk for continued decline, complications, readmissions and even . . Code Status: Full Code Plan: PLAN: Legal decision maker: At this time the patient is not capacitated for decision-making. Per [place] statutes, her would be the proxy decision- maker, pending discovery of any previously completed advanced directives. Goals: To be determined. CODE STATUS: FULL CODE SYMPTOMS: * Anxiety: She remains very anxious, likely related to recent brain surgery and resultant confusion. Planning on transitioning to rehab. Would benefit from continued cognitive therapy. 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 She has difficulty expressing thoughts. * Debility: Secondary to extended hospitalization and bedrest. She is progressing with physical therapy. Plan to seek out rehab placement in [place] where they live. Palliative care will continue to follow the patient during hospital course as condition evolves, to assist patient/decision-maker with understanding of their medical conditions, weighing benefits/burdens of treatment options, for clarification of goals of treatment. Additionally will assist with any symptoms of palliative concern. . Attestation Attestation: To help prompt me to consider important information that might be impacting today's encounter and assessment, information from prior notes written by myself or my colleagues may have been "brought forward" into today's note. My signature on this note, however, is an attestation that I personally performed the exam, history, and/or decision-making noted today, and, unless otherwise indicated, the interactions with patient, family, and staff as well as the review of records all occurred today. I also attest that the listed assessment and stated plan reflect my best clinical judgment today based on the combination of historical information, prior notes, and today's exam/ interactions. When time spent is documented, it refers only to time spent today by the signer, or if indicated, combined time spent today by collaborating physician/nurse practitioner. .
[2018-06-28] MEDS: Sod Chloride 0.9% Inj 1,000 ML IV.SIG SCH (17:32)
--- NOTE | 2018-06-28 18:30 | P.PN ---
Subjective Interval history: Sitting up in a chair and much more alert. Taking her diet well. Off restraints and has no agitation. Tries to answer questions Overall much better. Physical Exam Vital signs: Vital Signs 06/27/18 20:00 06/28/18 00:00 06/28/18 04:00 Temperature 98.2 F 98.3 F 97.5 F L Pulse Rate 96 H 89 87 Respiratory Rate 20 20 20 Blood Pressure 114/57 L 144/63 H 144/65 H Pulse Oximetry 97 93 L 95 06/28/18 08:00 06/28/18 12:00 06/28/18 16:00 Temperature 98.4 F 97.9 F 97.4 F L Pulse Rate 76 83 89 Respiratory Rate 18 18 18 Blood Pressure 122/59 L 114/57 L 122/59 L Pulse Oximetry 96 96 98 Intake & Output 06/27/18 06/28/18 06/28/18 18:59 06:59 18:59 Intake Total 169 / 169 328 / 328 379 / 379 Output Total 1200 / 1200 600 / 600 Balance -1031 / -1031 -272 / -272 379 / 379 Weight 55 kg Intake: IV 169 / 169 328 / 328 379 / 379 Cerebyx Inj 200 MGPE In NS Inj 54 / 54 108 / 108 54 / 54 50 ML @ 216 mls/hr IV.SIG Q8HR [facility] Rx#:[id number] Vimpat Inj 50 MG In NS Inj 100 105 / 105 210 / 210 ML @ 105 mls/hr IV.SIG Q12H [facility] Rx#:[id number] Keppra Inj 1,500 MG In NS Inj 115 / 115 115 / 115 115 / 115 100 ML @ 400 mls/hr IV.SIG Q12H [facility] Rx#:[id number] Output: Urine 1200 / 1200 600 / 600 Other: Date of Last Bowel Movement 06/27/18 06/27/18 Narrative: awake, alert mouthing words but not vocalizing followed simple commands mild right side neglect eventually able to track and focus to the right pupils equal moves extremities with right side weakness GENERAL: Thinly built elderly white female SKIN: Warm and dry. HEAD: Atraumatic. Normocephalic. EYES: Pupils equal and round. No scleral icterus. No injection or drainage. ENT: No nasal bleeding or discharge. Mucous membranes pink and moist. NECK: Trachea midline. No JVD. CARDIOVASCULAR: Regular rate and rhythm. RESPIRATORY: No accessory muscle use. Scattered wheezes in the right lung field and breath sounds equal bilaterally. GASTROINTESTINAL: Abdomen soft, non-tender, nondistended. Hepatic and splenic margins not palpable. MUSCULOSKELETAL: Extremities without clubbing, cyanosis, or edema. No obvious deformities. NEUROLOGICAL: Awake and alert. No obvious cranial nerve deficits. Some weakness of the right side and speech is hoarse. PSYCHIATRIC: Cannot assess - Urinary Catheter Management Female External Cath placed during this visit: yes Reason for continuing: Acute urinary retention Insertion date: 06/24/18 Insertion time: 14:45 Indwelling Urethral Catheter Cath placed during this visit: yes, but has since been removed by the nurse Reason for continuing: Decision to DC catheter Insertion date: 06/05/18 Insertion time: 08:30 Removal date: 06/16/18 Removal time: 21:51 Results - Labs CBC & Chem 7: 06/22/18 04:28 06/26/18 19:33 - Imaging Impressions Head MRI 06/27/18 00:00 CONCLUSION: 1. Scattered blood products within the subarachnoid space bilaterally, intraparenchymal within the left frontal lobe, and within the left lateral ventricle all felt to be postoperative related. No acute hemorrhage seen. 2. Prior left frontotemporal craniotomy. 3. No residual mass seen within the left lateral ventricle. Assessment and Plan - Assessment (1) COPD (chronic obstructive pulmonary disease) Code(s): J44.9 - Chronic obstructive pulmonary disease, unspecified Status: Acute (2) Right upper lobe pulmonary nodule Code(s): R91.1 - Solitary pulmonary nodule Status: Acute (3) Intraventricular hemorrhage, nontraumatic Code(s): I61.5 - Nontraumatic intracerebral hemorrhage, intraventricular Status: Acute (4) Hypertensive emergency Code(s): I16.1 - Hypertensive emergency Status: Acute (5) Metabolic encephalopathy Code(s): G93.41 - Metabolic encephalopathy Status: Acute (6) Altered mental status Code(s): R41.82 - Altered mental status, unspecified Status: Acute (7) History of peripheral arterial disease Code(s): Z86.79 - Personal history of other diseases of the circulatory system Status: Chronic (8) History of hypertension Code(s): Z86.79 - Personal history of other diseases of the circulatory system Status: Chronic (9) Cessation of tobacco use in previous 12 months Code(s): Z87.891 - Personal history of nicotine dependence Status: Chronic - Plan 1 continue O2 nasal cannula 2 L as needed 2. Continue DuoNeb nebs 3 times daily. 3. Incentive spirometry [address]-guided needle biopsy of lung mass next week . 5. Continue physical therapy 6 Symbicort 160 about 4.5 mcg 1 puff twice daily 7. Chest x-ray in a.m. (6) Altered mental status Qualifiers: Altered mental status type: unspecified Qualified Code(s): R41.82 - Altered mental status, unspecified
--- NOTE | 2018-06-28 22:07 | P.PNIM ---
Subjective Interval history: Follow-up for hemorrhagic intracranial mass status post surgical resection, lung mass. Patient is sitting in her chair, more responsive today. Afebrile. Physical Exam Vital signs: Vital Signs 06/28/18 00:00 06/28/18 04:00 06/28/18 08:00 Temperature 98.3 F 97.5 F L 98.4 F Pulse Rate 89 87 76 Respiratory Rate 20 20 18 Blood Pressure 144/63 H 144/65 H 122/59 L Pulse Oximetry 93 L 95 96 06/28/18 12:00 06/28/18 16:00 06/28/18 20:00 Temperature 97.9 F 97.4 F L 99.3 F Pulse Rate 83 89 87 Respiratory Rate 18 18 18 Blood Pressure 114/57 L 122/59 L 130/60 Pulse Oximetry 96 98 95 Intake & Output 06/28/18 06/28/18 06/29/18 06:59 18:59 06:59 Intake Total 328 / 328 379 / 379 105 / 105 Output Total 600 / 600 Balance -272 / -272 379 / 379 105 / 105 Intake: IV 328 / 328 379 / 379 105 / 105 Cerebyx Inj 200 MGPE In NS Inj 108 / 108 54 / 54 50 ML @ 216 mls/hr IV.SIG Q8HR [facility] Rx#:[id number] Vimpat Inj 50 MG In NS Inj 100 105 / 105 210 / 210 105 / 105 ML @ 105 mls/hr IV.SIG Q12H [facility] Rx#:[id number] Keppra Inj 1,500 MG In NS Inj 115 / 115 115 / 115 100 ML @ 400 mls/hr IV.SIG Q12H [facility] Rx#:[id number] Output: Urine 600 / 600 Other: Post Void Residual 2,500 Date of Last Bowel Movement 06/27/18 Narrative: GENERAL: More alert, NAD. SKIN: Warm and dry. HEAD: S/p craniotomy. EYES: No scleral icterus. No injection or drainage. NECK: Supple, trachea midline. No JVD or lymphadenopathy. CARDIOVASCULAR: Regular rate and rhythm without murmurs, gallops, or rubs. RESPIRATORY: Breath sounds equal bilaterally. No accessory muscle use. GASTROINTESTINAL: Abdomen soft, non-tender, nondistended. MUSCULOSKELETAL: No cyanosis, or edema. BACK: Nontender without obvious deformity. No CVA tenderness. Urinary Catheter Management Female External: Cath placed during this visit: yes Reason for continuing: Acute urinary retention Insertion date: 06/24/18 Insertion time: 14:45 Indwelling Urethral Catheter: Cath placed during this visit: yes, but has since been removed by the nurse Reason for continuing: Decision to DC catheter Insertion date: 06/05/18 Insertion time: 08:30 Removal date: 06/16/18 Removal time: 21:51 Results Labs CBC & Chem 7: 06/22/18 04:28 06/26/18 19:33 Imaging Imaging: Impressions Head MRI 06/27/18 00:00 CONCLUSION: 1. Scattered blood products within the subarachnoid space bilaterally, intraparenchymal within the left frontal lobe, and within the left lateral ventricle all felt to be postoperative related. No acute hemorrhage seen. 2. Prior left frontotemporal craniotomy. 3. No residual mass seen within the left lateral ventricle. 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 Kapadia review case recommended no chemo and refer to radiation oncology. Per oncology, Dr. 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 -Dr. Clemons has been consulted and recommends outpatient follow-up for radiation treatment -EEG originally negative for seizures -Repeat EEG 06/06 field possible left frontal breakthrough. -MRA 06/06 brain revealed left lateral ventricle resection, intervertebral hemorrhage slightly decreased. Small subdural hematoma. Postsurgical. Rightward shift 5 mm. -Currently on fosphenytoin 200 mg every 8 hours. -On levetiracetam 1500 mg IV twice daily. -Continue lacosamide 50 mg twice daily per neurosurgery -After discussion with patient's , we consulted Palliative care team 06/27. Acute hypoxic and hypercarbic respiratory failure-now extubated and on nasal cannula 2 L oxygen Previous tobacco use Right upper lobe mass HCAP ventilator associated pneumonia -Pulmonology consulted for right upper lobe mass concerning for primary malignancy, with adrenal mass -Pulmonary Dr. Evans suggesting CT-guided biopsy and PET scan once clinically more stable -Probable biopsy next week per Dr. Evans. Hypertensive emergency History of hypertension Peripheral arterial disease -Continue home enalapril 40 mg daily and amlodipine 5 mg daily increased to 10 mg daily, continue pravastatin 40 mg daily. metoprolol tartrate 50 mg twice daily -We will place holding parameters on BP meds. Today, BP has been within normal range without any meds. 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 Repeat BMP in the AM. Full code. Lovenox. Progress Note: Quality VTE Deep Vein Thrombosis/Pulmonary Embolism Present on Admission: No
[2018-06-29] MEDS: Lacosamide Inj 50 MG in Sodium Chlor 0.9% Inj 100 ML IV.SIG SCH ×2 (04:43→17:40)
[2018-06-29] MEDS: Artificial Tears Opth Drops 15 ML Bottle EACH EYE SCH ×3 (04:44→22:49)
[2018-06-29] MEDS: Sod Chloride 0.9% Inj 1,000 ML IV.SIG SCH ×2 (06:22→14:58)
[2018-06-29] MEDS: Fosphenytoin Inj 200 MGPE in Sodium Chlor 0.9% Inj 50 ML IV.SIG SCH ×2 (06:35→14:58)
--- NOTE | 2018-06-29 07:19 | XR ---
EXAM DATE: 06/29/2018 7:14 AM EST AGE/SEX: 78 years / Female INDICATIONS: Short of breath, evaluate infiltrate. CLINICAL DATA: This is the patient's subsequent encounter. Patient reports that signs and symptoms h ave been present for 1 week and indicates a pain score of Nonresponsive. MEDICAL/SURGICAL HISTORY: Cardiovascular disease. Hypertension. hemorrhagic brain mass Cranio martha. Craniotomy. COMPARISON: [facility] [place], CHEST 1V SINGLE AP, 06/24/2018. . FINDINGS: A single AP view of the chest demonstrates the lungs to be symmetrically aerated without evidence of mass, infiltrate or effusion. The cardiomediastinal contours are unremarkable and stable. Osseous s tructures are intact and stable. Bilateral calcified breast implants. No significant changes compared to the prior exam. CONCLUSION: 1. No definite acute pulmonary infiltrates. 2. No new or significant changes compared to the prior study. Electronically signed by: Angel Razo MD Board Certified Radiologist 06/29/2018 7:18 AM EST
[2018-06-29 08:00] LABS: Anion Gap 7 meq/L (5-15); Blood Urea Nitrogen 12 mg/dL (7-18); Calcium 8.1 mg/dL (8.5-10.1); Chloride 107 meq/L (98-107); Glomerular Filtration Rate Greater Than 89 mL/min (>89); Glucose,Random 89 mg/dL (74-106); Potassium 3.7 meq/L (3.5-5.1); Sodium 142 meq/L (136-145)
[2018-06-29] MEDS: Enoxaparin Inj 40 MG/0.4 ML Syringe SQ SCH (09:22)
[2018-06-29] MEDS: Sodium Chloride 1 GM Tablet PO SCH ×2 (09:23→22:50)
[2018-06-29] MEDS: Lisinopril 20 MG Tablet PO SCH (09:23)
[2018-06-29] MEDS: Metoprolol Tartrate 50 MG Tablet PO SCH ×2 (09:23→22:50)
[2018-06-29] MEDS: Senna/Docusate Sodium 8.6/50 MG Tablet PO SCH ×2 (09:23→22:50)
[2018-06-29] MEDS: amLODIPine 5 MG Tablet PO SCH (09:23)
[2018-06-29] MEDS: Budesonide-Formoterol 160/4.5 MCG 6 GM Inhaler INH SCH ×2 (09:24→22:49)
[2018-06-29] MEDS: levETIRAcetam Inj 1,500 MG in Sodium Chlor 0.9% Inj 100 ML IV.SIG SCH ×2 (11:29→23:02)
--- NOTE | 2018-06-29 12:47 | P.PN ---
Subjective Interval history: She is progressing well. Off O2 sats 96. Good urine output. Still has some weakness in the right. Taking her diet well Physical Exam Vital signs: Vital Signs 06/28/18 16:00 06/28/18 20:00 06/29/18 00:00 Temperature 97.4 F L 99.3 F 98.4 F Pulse Rate 89 87 82 Respiratory Rate 18 18 18 Blood Pressure 122/59 L 130/60 110/55 L Pulse Oximetry 98 95 93 L 06/29/18 04:00 06/29/18 08:00 06/29/18 11:19 Temperature 98 F 97.7 F Pulse Rate 83 69 Respiratory Rate 18 14 Blood Pressure 134/63 113/57 L Pulse Oximetry 94 L 96 96 Intake & Output 06/28/18 06/29/18 06/29/18 18:59 06:59 18:59 Intake Total 379 / 379 1274 / 1274 54 / 54 Output Total 500 / 500 Balance 379 / 379 774 / 774 54 / 54 Weight 55 kg Intake: IV 379 / 379 1274 / 1274 54 / 54 Cerebyx Inj 200 MGPE In NS Inj 54 / 54 54 / 54 54 / 54 50 ML @ 216 mls/hr IV.SIG Q8HR [facility] Rx#:[id number] Vimpat Inj 50 MG In NS Inj 100 210 / 210 105 / 105 ML @ 105 mls/hr IV.SIG Q12H [facility] Rx#:[id number] NS Inj 1,000 ML @ 100 mls/hr IV 1000 / 1000 .SIG .Q10H [facility] Rx#:[id number] Keppra Inj 1,500 MG In NS Inj 115 / 115 115 / 115 100 ML @ 400 mls/hr IV.SIG Q12H [facility] Rx#:[id number] Output: Urine 500 / 500 Other: Post Void Residual 2,500 Date of Last Bowel Movement 06/27/18 06/28/18 Narrative: awake, alert mouthing words but not vocalizing followed simple commands pupils equal moves extremities with right side weakness GENERAL: Thinly built elderly white female SKIN: Warm and dry. HEAD: Atraumatic. Normocephalic. EYES: Pupils equal and round. No scleral icterus. No injection or drainage. ENT: No nasal bleeding or discharge. Mucous membranes pink and moist. NECK: Trachea midline. No JVD. CARDIOVASCULAR: Regular rate and rhythm. RESPIRATORY: No accessory muscle use. Scattered wheezes and breath sounds equal bilaterally. GASTROINTESTINAL: Abdomen soft, non-tender, nondistended. Hepatic and splenic margins not palpable. MUSCULOSKELETAL: Extremities without clubbing, cyanosis, or edema. No obvious deformities. NEUROLOGICAL: Awake and alert. No obvious cranial nerve deficits. Some weakness of the right side and speech is faint PSYCHIATRIC: Cannot assess - Urinary Catheter Management Female External Cath placed during this visit: yes Reason for continuing: Acute urinary retention Insertion date: 06/24/18 Insertion time: 14:45 Indwelling Urethral Catheter Cath placed during this visit: yes, but has since been removed by the nurse Reason for continuing: Decision to DC catheter Insertion date: 06/05/18 Insertion time: 08:30 Removal date: 06/16/18 Removal time: 21:51 Results - Labs CBC & Chem 7: 06/22/18 04:28 06/29/18 06:55 Laboratory Results - last 24 hr 06/29/18 06:55 Sodium 142 Potassium 3.7 Chloride 107 Carbon Dioxide 28.0 Anion Gap 7 BUN 12 Creatinine 0.26 L Estimated GFR Greater than 89 Random Glucose 89 Calcium 8.1 L - Imaging Impressions Chest X-Ray 06/29/18 00:00 CONCLUSION: 1. No definite acute pulmonary infiltrates. 2. No new or significant changes compared to the prior study. Assessment and Plan - Assessment (1) COPD (chronic obstructive pulmonary disease) Code(s): J44.9 - Chronic obstructive pulmonary disease, unspecified Status: Acute (2) Right upper lobe pulmonary nodule Code(s): R91.1 - Solitary pulmonary nodule Status: Acute (3) Intraventricular hemorrhage, nontraumatic Code(s): I61.5 - Nontraumatic intracerebral hemorrhage, intraventricular Status: Acute (4) Hypertensive emergency Code(s): I16.1 - Hypertensive emergency Status: Acute (5) Metabolic encephalopathy Code(s): G93.41 - Metabolic encephalopathy Status: Acute (6) Altered mental status Code(s): R41.82 - Altered mental status, unspecified Status: Acute (7) History of peripheral arterial disease Code(s): Z86.79 - Personal history of other diseases of the circulatory system Status: Chronic (8) History of hypertension Code(s): Z86.79 - Personal history of other diseases of the circulatory system Status: Chronic (9) Cessation of tobacco use in previous 12 months Code(s): Z87.891 - Personal history of nicotine dependence Status: Chronic - Plan 1 continue O2 nasal cannula 2 L as needed 2. Continue DuoNeb nebs 3 times daily. 3. Incentive spirometry [address]-guided needle biopsy of lung mass next week . 5. Continue physical therapy 6 Symbicort 160 about 4.5 mcg 1 puff twice daily 7. Coag profile CBC (6) Altered mental status Qualifiers: Altered mental status type: unspecified Qualified Code(s): R41.82 - Altered mental status, unspecified
--- NOTE | 2018-06-29 12:56 | P.PNNS ---
Subjective Interval history: no neurological changes <Samanta Banda - Last Filed: 06/29/18 13:26> Physical Exam Vital signs: Vital Signs 06/28/18 16:00 06/28/18 20:00 06/29/18 00:00 Temperature 97.4 F L 99.3 F 98.4 F Pulse Rate 89 87 82 Respiratory Rate 18 18 18 Blood Pressure 122/59 L 130/60 110/55 L Pulse Oximetry 98 95 93 L 06/29/18 04:00 06/29/18 08:00 06/29/18 11:19 Temperature 98 F 97.7 F Pulse Rate 83 69 Respiratory Rate 18 14 Blood Pressure 134/63 113/57 L Pulse Oximetry 94 L 96 96 Intake & Output 06/28/18 06/29/18 06/29/18 18:59 06:59 18:59 Intake Total 379 / 379 1274 / 1274 54 / 54 Output Total 500 / 500 Balance 379 / 379 774 / 774 54 / 54 Weight 55 kg Intake: IV 379 / 379 1274 / 1274 54 / 54 Cerebyx Inj 200 MGPE In NS Inj 54 / 54 54 / 54 54 / 54 50 ML @ 216 mls/hr IV.SIG Q8HR [facility] Rx#:[id number] Vimpat Inj 50 MG In NS Inj 100 210 / 210 105 / 105 ML @ 105 mls/hr IV.SIG Q12H [facility] Rx#:[id number] NS Inj 1,000 ML @ 100 mls/hr IV 1000 / 1000 .SIG .Q10H [facility] Rx#:[id number] Keppra Inj 1,500 MG In NS Inj 115 / 115 115 / 115 100 ML @ 400 mls/hr IV.SIG Q12H [facility] Rx#:[id number] Output: Urine 500 / 500 Other: Post Void Residual 2,500 Date of Last Bowel Movement 06/27/18 06/28/18 Narrative: awake, alert mouthing some words but not vocalizing pupils equal moves extremities with right side weakness mild right sided neglect surgical head wound well healed - Urinary Catheter Management Female External Cath placed during this visit: yes Reason for continuing: Acute urinary retention Insertion date: 06/24/18 Insertion time: 14:45 Indwelling Urethral Catheter Cath placed during this visit: yes, but has since been removed by the nurse Reason for continuing: Decision to DC catheter Insertion date: 06/05/18 Insertion time: 08:30 Removal date: 06/16/18 Removal time: 21:51 <Samanta Banda - Last Filed: 06/29/18 13:26> Vital signs: Vital Signs 06/28/18 20:00 06/29/18 00:00 06/29/18 04:00 Temperature 99.3 F 98.4 F 98 F Pulse Rate 87 82 83 Respiratory Rate 18 18 18 Blood Pressure 130/60 110/55 L 134/63 Pulse Oximetry 95 93 L 94 L 06/29/18 08:00 06/29/18 11:19 06/29/18 12:00 Temperature 97.7 F 97.6 F Pulse Rate 69 85 Respiratory Rate 14 16 Blood Pressure 113/57 L 142/65 H Pulse Oximetry 96 96 95 06/29/18 16:00 Temperature 98.2 F Pulse Rate 88 Respiratory Rate 16 Blood Pressure 147/65 H Pulse Oximetry 97 Intake & Output 06/29/18 06/29/18 06/30/18 06:59 18:59 06:59 Intake Total 1379 / 1379 1223 / 1223 Output Total 500 / 500 Balance 879 / 879 1223 / 1223 Weight 55 kg Intake: IV 1379 / 1379 1223 / 1223 Cerebyx Inj 200 MGPE In NS Inj 54 / 54 108 / 108 50 ML @ 216 mls/hr IV.SIG Q8HR [facility] Rx#:[id number] Vimpat Inj 50 MG In NS Inj 100 210 / 210 ML @ 105 mls/hr IV.SIG Q12H [facility] Rx#:[id number] NS Inj 1,000 ML @ 100 mls/hr IV 1000 / 1000 1000 / 1000 .SIG .Q10H [facility] Rx#:[id number] Keppra Inj 1,500 MG In NS Inj 115 / 115 115 / 115 100 ML @ 400 mls/hr IV.SIG Q12H [facility] Rx#:[id number] Output: Urine 500 / 500 Other: Date of Last Bowel Movement 06/28/18 - Urinary Catheter Management Female External Cath placed during this visit: no Indwelling Urethral Catheter Cath placed during this visit: no <Naeem Lima - Last Filed: 06/29/18 19:31> Assessment and Plan - Plan 78 yo female with vague constellation of symptoms GCS-[address] shows 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 hemorrhagic mass Will follow with you 05/30/18: cont neuro checks in ICU Dr. 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 at midnight on Monday night into Monday Minimize sedating meds, etc. 06/03/18: Appears to be a bit more encephalopathic today, possible contribution of hospital delirium versus her mild hydrocephalus, though favor delirium since her level of alertness remains stable Dr. 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 at midnight tonight Continue to minimize sedating meds, etc. 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 Palacios 06/06/18: POD #1. pt had seizure last night requiring intubation. She has been started on Keppra for seizures. On exam she opens eyes and follows commands. Postoperative MRI Brain w/wo contrast has been ordered and pending. Obtain EEG to assess seizures. Continue ventriculostomy draining, add ICP monitoring. Start sq lovenox for dvt prophylaxis. Will follow. 06/07/18: POD #2. patient neurologically stable, opens eyes and follows commands. Postoperative MRI Brain reviewed by neurosurgery team. Spot EEG reports no ongoing seizures, with high amplitude sharp waves on left?breach rhythm. Critical care plans on extubation today. Continue ventriculostomy draining at 10 mmHg. Final pathology pending. Neurology following for seizure management. Will follow. 06/08/18: POD #3. patient neurologically stable, opens eyes and follows commands. Ventriculostomy draining well with controlled ICPs, will continue at 10mmHg. Pathology still pending. cont seizure management per Neurology. dw critical care. will follow. 06/09/2018 POD#4 Remains Neurologically stable, follows commands Stop sedation wean ventilator to CPAP 5 x 12 and FiO2 30% Continue DuoNeb nebs 4 times daily. Check respiratory parameters and consider extubation Agree with Symbicort 160 about 4.5 mcg 1 puff twice daily and Solu-Medrol 40 mg IV twice daily Continue EVD Would maintain SBP 140-160 to improve CPP. 06/10/2018 POD#5 Seizure yesterday, and last night, have increased Cerebyx and Keppra D/C'ed Barbs would prefer to maintain on 2 agents and high therapeutic levels of Cerebyx, usually best with brain tumors Free Dilantin levels not easily obtainable here. Lets keep level around 20 with standard level remains Neurologically stable wean ventilator to CPAP 5 x 12 and FiO2 30% and if OK, may extubate from Neurosurgical standpoint. 06/11/18 POD #6 seizures controlled overnight, will continue Cerebyx 200 tid and Keppra 1500 bid. Dilantin levels 17.6 today continue critical care - vent weaning - CPAP trials cont EVD draining at 5 mmHg final pathology still pending will follow 06/12/18 POD #7 pt failed extubation yesterday, reintubated- critical care managing repeat EEG 06/11/18 abnormal with sharp activities left hemisphere dilantin levels 18.8 this morning cont current anticonvulsants, will repeat EEG today obtained follow up CT Brain this morning which was reviewed by Dr. Perdue, EVD raised to 15 mmHg neuro exam today appears better final pathology still pending 06/13/18 POD #8 neurologically she is awake, alert EEG yesterday 06/12/18 - mod encephalopathy, no reports of any seizure activities cont current anticonvulsants, Dilantin levels trending up pending today, started on Zosyn for gram neg rods in sputum - per critical care cont EVD challenge, cont at 15 mmHg today, plan to clamp tomorrow will follow 06/14/18 POD #9 neurologically remains awake and alert Ventriculostomy drain clamped today, follow up CT Head tomorrow am will follow 06/15/18: POD #10 neuro exam with no changes, f/u CT Head post EVD clamping reviewed by neurosurgery team, ventriculostomy drain removed, using sterile technique single stitch place, patient tolerated procedure well cont critical care management seizures controlled, continue current anticonvulsants FINAL PATHOLOGY: LOW GRADE NEOPLASM, MOST CONSISTENT WITH PILOCYTIC ASTROCYTOMA ; 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 current management Discussed Path with patient's son 06/17/2018 POD#12 Neuro: no sig. changes seizures controlled aggressive CPAP trials today DPH level 5.5 Bolused with 500 mgs. cont. ICU 06/18/2018 no neurological changes continue CPAP trials, vent wean to extubate remove surgical mamadou Dr. 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 Snell - continue CPAP, ?extubate pulmonology also following 06/20/2018 patient extubated, neuro exam unchanged, stable reconsult medical oncology for reeval for poss chemotherapy for pilocytic astrocytoma radiation oncology eval pending will follow 06/21/2018 neuro exam relatively stable, she waxes and wanes- dw nursing she is stable from NRS standpoint for a step down unit, radiation oncology for work up outpatient and potential xrt appreciate oncology reeval: there is no chemotherapy to offer for the low grade astrocytoma 06/22/2018 continue physical, occupation, and speech therapy increase activity, OOB to chair cont present care will follow 06/23/2018 continue physical, occupation, and speech therapy increase activity, OOB to chair cont present care will follow 06/24/2018 continue physical, occupation, and speech therapy increase activity, OOB to chair cont present care appears to be gradually improving. will follow 06/25/2018 increase activity, OOB to chair PT/OT/ST Rehab Consult cont present care slowly improving. will continue to follow 06/26/2018 OOB to chair TID PT/OT/ST ready for transfer to Rehab from Neurosurgical standpoint cont present care slowly improving. will continue to follow 06/27/2018 Remains Neurologically stable Head CT reviewed Showing slow but continued improvement OOB to chair TID PT/OT/ST ready for transfer to Rehab from Neurosurgical standpoint head MRI w/o PÉREZ to assess hydrocephalus, unclear as to why she is unable to phonate. Patient has a low grade glioma, will not require chemo or radiation. These are biologically not aggressive. Will require subacute rehab/nursing facility cont present care will continue to follow 06/28/2018 POD #23 neuro stable follow up head MRI reviewed by neurosurgery team, consult placed to ENT specialist for laryngoscopy of vocal cords due to loss of voice continue physical, occupational, and speech therapy will follow 06/29/2018 POD #24 remains neurologically stable evaluation by ENT specialist pending continue with therapy and rehab efforts will follow <Samanta Banda - Last Filed: 06/29/18 13:26> - Attending Attestation June 29, 2018 I personally examined the patient. I reviewed the documentation, laboratory evaluation, and the imaging. I discussed the case with the neurosurgery team and a plan has been formulated as described above. Neurosurgery will follow. <Naeem Lima - Last Filed: 06/29/18 19:31>
--- NOTE | 2018-06-29 13:26 | P.PNPAL ---
Reason for Visit Reason for visit: a. To assist with evaluation and management of symptoms including: Anxiety, encephalopathy, debility b. To assist medical decision maker(s) with: better understanding of current medical conditions; weighing benefits/burdens of medical treatment options; making medical treatment decisions. Subjective Subjective/Interval History: This is a 78-year old female with a past medical history of hypertension, PAD status post stenting, arthritis who was transferred to [facility] from [facility] with generalized complaints of memory loss, right leg weakness, speech deficit and hallucinations for the prior week initial workup showed subacute intraventricular hemorrhage into the left lateral ventricle with a focal thrombus possibly obstructing the foramina of [place] with enlargement of the left lateral ventricle compared to the prior MRI. Also trace blood in the occipital horn of the left lateral ventricle. Due to the intraventricular hemorrhage, neurosurgery was emergently consulted. She was found to be profoundly hypertensive with a blood pressure of 190-200 requiring IV labetalol 20 mg IV followed by Cardene infusion. She was found to be oriented only to self. MRI of the brain with and without contrast was ordered as well as systolic blood pressure control of less than 150 mmHg. Patient seen today for follow-up of symptom management of Anxiety, encephalopathy, debility and goals of medical treatment. She is again up in her chair, no family at bedside. She is alert, tracking examiner and attempts to interact. She mouths words and occasionally has some speech sound which is very soft. Her answers appear appropriate at this time. Patient continues to work with physical therapy specifically on right side which patient tends to neglect. She requires total assist from RN and [employer] [employer] to transition from bed to chair. Patient nods yes when asked if it was a little easier today. She remains mildly anxious regarding her medical condition and difficulty understanding what is going around with her. She continues to have significant urinary retention with a post 500 mL void residual of 2500 mL. . Family/Friend Interactions: Family is not at bedside at this time. Reviewed discharge plans with the yesterday and per case management notes, referrals have been sent to 5 facilities in [place], where they live, for rehab placement. . Advance Directives Health Care Surrogate Name and Number: Unknown Objective Vital Signs: Vital Signs 06/28/18 16:00 06/28/18 20:00 06/29/18 00:00 Temperature 97.4 F L 99.3 F 98.4 F Pulse Rate 89 87 82 Respiratory Rate 18 18 18 Blood Pressure 122/59 L 130/60 110/55 L Pulse Oximetry 98 95 93 L 06/29/18 04:00 06/29/18 08:00 06/29/18 11:19 Temperature 98 F 97.7 F Pulse Rate 83 69 Respiratory Rate 18 14 Blood Pressure 134/63 113/57 L Pulse Oximetry 94 L 96 96 Intake & Output 06/28/18 06/29/18 06/29/18 18:59 06:59 18:59 Intake Total 379 / 379 1274 / 1274 54 / 54 Output Total 500 / 500 Balance 379 / 379 774 / 774 54 / 54 Weight 121 lb 4.068 oz Intake: IV 379 / 379 1274 / 1274 54 / 54 Cerebyx Inj 200 MGPE In NS Inj 54 / 54 54 / 54 54 / 54 50 ML @ 216 mls/hr IV.SIG Q8HR [facility] Rx#:[id number] Vimpat Inj 50 MG In NS Inj 100 210 / 210 105 / 105 ML @ 105 mls/hr IV.SIG Q12H [facility] Rx#:[id number] NS Inj 1,000 ML @ 100 mls/hr IV 1000 / 1000 .SIG .Q10H [facility] Rx#:[id number] Keppra Inj 1,500 MG In NS Inj 115 / 115 115 / 115 100 ML @ 400 mls/hr IV.SIG Q12H [facility] Rx#:[id number] Output: Urine 500 / 500 Other: Post Void Residual 2,500 Date of Last Bowel Movement 06/27/18 06/28/18 Physical Exam: CONSTITUTIONAL/GENERAL: This is an adequately nourished patient, sitting up in a chair, in no apparent distress. TUBES/LINES/DRAINS: PIV NECK: Trachea midline. Supple, nontender. No palpable thyroid enlargement or nodularity. CARDIOVASCULAR: Regular rate and rhythm with 2/6 systolic ejection murmur, no gallops, or rubs. No JVD. Peripheral pulses symmetric. RESPIRATORY/CHEST: Symmetric, unlabored respirations. Clear to auscultation. Breath sounds equal bilaterally. No wheezes, rales, or rhonchi. GASTROINTESTINAL: Abdomen soft, non-tender, nondistended. No hepato-splenomegaly , or palpable masses. No guarding. Bowel sounds present. GENITOURINARY: Without palpable bladder distension. Dowell catheter in place due to urinary retention of 2500 mL after 500 mL void. MUSCULOSKELETAL: Extremities without clubbing, cyanosis, or edema. No joint tenderness or effusion noted. No calf tenderness. No mottling or clubbing. Right-sided weakness. NEUROLOGICAL: Awake and alert. Motor and sensory grossly within normal limits. Speech soft, confused, oriented to self. PSYCHIATRIC: Pleasant, calm, appears anxious, no apparent hallucinations or other psychotic thought process. . Diagnostic Tests Laboratory: Laboratory Results - last 72 hr 06/26/18 06/26/18 06/26/18 17:56 17:57 19:33 Puncture Site Right radial Patient Temperature 98.6 O2 Saturation 96 ABG pH 7.45 H ABG pCO2 42 ABG pO2 113 ABG HCO3 29 H ABG O2 Content 15.4 ABG Base Excess 4.9 H ABG Methemoglobin 1.4 [place] Test Present Hemoglobin 11.3 L Carboxyhemoglobin 1.1 O2 Delivery Device Nasal cannula Liter Flow 2.00 Critical Value No Sodium 141 Potassium Chloride Carbon Dioxide Anion Gap BUN Creatinine Estimated GFR POC Glucose 127 H Random Glucose Calcium 06/29/18 06:55 Puncture Site Patient Temperature O2 Saturation ABG pH ABG pCO2 ABG pO2 ABG HCO3 ABG O2 Content ABG Base Excess ABG Methemoglobin Pedro Pablo Test Hemoglobin Carboxyhemoglobin O2 Delivery Device Liter Flow Critical Value Sodium 142 Potassium 3.7 Chloride 107 Carbon Dioxide 28.0 Anion Gap 7 BUN 12 Creatinine 0.26 L Estimated GFR Greater than 89 POC Glucose Random Glucose 89 Calcium 8.1 L Result Diagrams: 06/22/18 04:28 06/29/18 06:55 Imaging: ITS Impressions Abdomen/Pelvis CT 05/30/18 00:00 CONCLUSION: 1. 1.3 cm left adrenal mass. Findings are concerning for metastatic disease given findings of brain metastasis and lung mass. 2. 1.6 cm indeterminate low-density lesion in the posterior right lobe of the liver with numerous additional subcentimeter hypodense lesions which are too small to fully characterize. Although metastatic disease cannot be entirely excluded, suspect these reflect cysts. 3. Colonic diverticulosis without evidence for diverticulitis. 4. Otherwise, no additional definitive evidence for metastatic disease to the abdomen or pelvis. Chest CT 05/30/18 00:00 CONCLUSION: 1. 1.6 x 1.1 cm spiculated right upper lobe lung nodule concerning for metastasis or primary lung malignancy. 2. Additional 3 mm subpleural nodules in the superior segment of the left lower lobe are nonspecific. 3. Mild atelectasis/scarring at the right lung base with more prominent airspace consolidation at the left lung base. 4. 1.1 x 1.4 cm soft tissue density abnormality emanating from the inferior lateral margin of the right breast implant which may reflect a focal disruption. However, cannot exclude an adjacent breast mass. Correlation with patient's history and prior breast imaging is recommended. Head CTA 05/31/18 00:00 CONCLUSION: 1. There is no evidence for intracranial aneurysm or stenosis. 2. Intraventricular mass as previously described. 3. There is no evidence for mass at the cerebellopontine angle. The finding on the recent MRI was likely related to pulsation artifact in this region. . Head CT 06/26/18 18:07 CONCLUSION: 1. Encephalomalacia left frontal lobe. 2. Cerebral atrophy. 3. No midline shift or mass effect. 4. Very minimal hemorrhage left subdural space, much less prominent from previous study. . Head MRI 06/27/18 00:00 CONCLUSION: 1. Scattered blood products within the subarachnoid space bilaterally, intraparenchymal within the left frontal lobe, and within the left lateral ventricle all felt to be postoperative related. No acute hemorrhage seen. 2. Prior left frontotemporal craniotomy. 3. No residual mass seen within the left lateral ventricle. Chest X-Ray 06/29/18 00:00 CONCLUSION: 1. No definite acute pulmonary infiltrates. 2. No new or significant changes compared to the prior study. Procedures: 06/05: Left frontal craniotomy for resection of tumor 06/11: Extubation 06/11: Reintubation 06/14: Left frontal craniotomy for resection of intraventricular tumor with microscope and cortical motor mapping and endoscope. 06/14: Extubation in PACU with subsequent reintubation 06/17: Therapeutic fiberoptic bronchoscopy 06/19: Extubation . Assessment and Plan Pertinent Non-Medical Issues: Psychosocial: Patient transferred up from [facility]. She and her have a condominium in [place], but live in [place]. She has a and a son who help her with her care. 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 Legal: No advance directives available. Ethical issues impacting care: Patient is confused and unable to make her own decisions. . Important Contacts: : Kyrie Pryor , cell . Prognosis: Her prognosis is guarded. 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 There is known treatment for the astrocytoma and at this time the patient has not undergone biopsy of the lung lesion. This was planned for when the patient was more stable and plans are now in process to consider rehab services. At this time the patient is confused , not following commands and severely debilitated. If family chooses to pursue rehab this may delay her outpatient workup, during which time she runs a significant risk of advancement of the cancer. Given its suspected metastatic nature, Dr. Kapadia opines that all treatment would be palliative. She is at significant risk for continued decline, complications, readmissions and even . . Code Status: Full Code Plan: PLAN: Legal decision maker: At this time the patient is not capacitated for decision-making. Per [place] statutes, her would be the proxy decision- maker, pending discovery of any previously completed advanced directives. Goals: Aggressive at this time. CODE STATUS: FULL CODE SYMPTOMS: * Anxiety: She remains very anxious, likely related to cancer diagnosis, recent brain surgery and resultant confusion. Planning on transitioning to rehab. Would benefit from continued cognitive therapy. 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 She has difficulty expressing thoughts and feels confused. * Debility: Secondary to extended hospitalization and bedrest. She is progressing with physical therapy. Case management is sending referrals to facilities in [place]. Palliative care will continue to follow the patient during hospital course as condition evolves, to assist patient/decision-maker with understanding of their medical conditions, weighing benefits/burdens of treatment options, for clarification of goals of treatment. Additionally will assist with any symptoms of palliative concern. . Attestation Attestation: To help prompt me to consider important information that might be impacting today's encounter and assessment, information from prior notes written by myself or my colleagues may have been "brought forward" into today's note. My signature on this note, however, is an attestation that I personally performed the exam, history, and/or decision-making noted today, and, unless otherwise indicated, the interactions with patient, family, and staff as well as the review of records all occurred today. I also attest that the listed assessment and stated plan reflect my best clinical judgment today based on the combination of historical information, prior notes, and today's exam/ interactions. When time spent is documented, it refers only to time spent today by the signer, or if indicated, combined time spent today by collaborating physician/nurse practitioner. .
--- NOTE | 2018-06-29 22:06 | P.PNIM ---
Subjective Interval history: Follow-up for hemorrhagic intracranial mass status post surgical resection, lung mass. Patient is doing well. Sitting in her chair. She is able to verbalized better today. No fever, chills. Physical Exam Vital signs: Vital Signs 06/29/18 00:00 06/29/18 04:00 06/29/18 08:00 Temperature 98.4 F 98 F 97.7 F Pulse Rate 82 83 69 Respiratory Rate 18 18 14 Blood Pressure 110/55 L 134/63 113/57 L Pulse Oximetry 93 L 94 L 96 06/29/18 11:19 06/29/18 12:00 06/29/18 16:00 Temperature 97.6 F 98.2 F Pulse Rate 85 88 Respiratory Rate 16 16 Blood Pressure 142/65 H 147/65 H Pulse Oximetry 96 95 97 06/29/18 20:05 Temperature 97.6 F Pulse Rate 77 Respiratory Rate 18 Blood Pressure 129/58 L Pulse Oximetry 95 Intake & Output 06/29/18 06/29/18 06/30/18 06:59 18:59 06:59 Intake Total 1379 / 1379 1223 / 1223 Output Total 500 / 500 Balance 879 / 879 1223 / 1223 Weight 55 kg Intake: IV 1379 / 1379 1223 / 1223 Cerebyx Inj 200 MGPE In NS Inj 54 / 54 108 / 108 50 ML @ 216 mls/hr IV.SIG Q8HR [facility] Rx#:[id number] Vimpat Inj 50 MG In NS Inj 100 210 / 210 ML @ 105 mls/hr IV.SIG Q12H [facility] Rx#:[id number] NS Inj 1,000 ML @ 100 mls/hr IV 1000 / 1000 1000 / 1000 .SIG .Q10H [facility] Rx#:[id number] Keppra Inj 1,500 MG In NS Inj 115 / 115 115 / 115 100 ML @ 400 mls/hr IV.SIG Q12H [facility] Rx#:[id number] Output: Urine 500 / 500 Other: Date of Last Bowel Movement 06/28/18 Narrative: GENERAL: Alert, NAD. Verbalizing better today. SKIN: Warm and dry. HEAD: S/p craniotomy. EYES: No scleral icterus. No injection or drainage. NECK: Supple, trachea midline. No JVD or lymphadenopathy. CARDIOVASCULAR: Regular rate and rhythm without murmurs, gallops, or rubs. RESPIRATORY: Breath sounds equal bilaterally. No accessory muscle use. GASTROINTESTINAL: Abdomen soft, non-tender, nondistended. MUSCULOSKELETAL: No cyanosis, or edema. BACK: Nontender without obvious deformity. No CVA tenderness. Urinary Catheter Management Female External: Cath placed during this visit: yes Reason for continuing: Acute urinary retention Insertion date: 06/24/18 Insertion time: 14:45 Indwelling Urethral Catheter: Cath placed during this visit: yes, but has since been removed by the nurse Reason for continuing: Decision to DC catheter Insertion date: 06/05/18 Insertion time: 08:30 Removal date: 06/16/18 Removal time: 21:51 Results Labs CBC & Chem 7: 06/22/18 04:28 06/29/18 06:55 Imaging Imaging: Impressions Chest X-Ray 06/29/18 00:00 CONCLUSION: 1. No definite acute pulmonary infiltrates. 2. No new or significant changes compared to the prior study. 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 Kapadia review case recommended no chemo and refer to radiation oncology. Per oncology, Dr. 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 -Dr. Clemons has been consulted and recommends outpatient follow-up for radiation treatment -EEG originally negative for seizures -Repeat EEG 06/06 field possible left frontal breakthrough. -MRA 06/06 brain revealed left lateral ventricle resection, intervertebral hemorrhage slightly decreased. Small subdural hematoma. Postsurgical. Rightward shift 5 mm. -Currently on fosphenytoin 200 mg every 8 hours. -On levetiracetam 1500 mg IV twice daily. -Continue lacosamide 50 mg twice daily per neurosurgery Acute hypoxic and hypercarbic respiratory failure-now extubated and on nasal cannula 2 L oxygen Previous tobacco use Right upper lobe mass HCAP ventilator associated pneumonia -Pulmonology consulted for right upper lobe mass concerning for primary malignancy, with adrenal mass -Pulmonary Dr. Evans suggesting CT-guided biopsy and PET scan once clinically more stable -Probable biopsy next week. Discussed with Dr. Evans. Hypertensive emergency History of hypertension Peripheral arterial disease -Continue home enalapril 40 mg daily and amlodipine 5 mg daily increased to 10 mg daily, continue pravastatin 40 mg daily. metoprolol tartrate 50 mg twice daily -We will place holding parameters on BP meds. Today, BP has been within normal range without any meds. 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 Repeat BMP in the AM. Full code. Lovenox. Discharge plan: Probable Lung mass bx next week and David will evaluate patient on Monday07/02/2018. Progress Note: Quality VTE Deep Vein Thrombosis/Pulmonary Embolism Present on Admission: No
[2018-06-30] MEDS: Fosphenytoin Inj 200 MGPE in Sodium Chlor 0.9% Inj 50 ML IV.SIG SCH ×4 (00:02→22:57)
[2018-06-30] MEDS: Sod Chloride 0.9% Inj 1,000 ML IV.SIG SCH ×3 (05:14→22:59)
[2018-06-30] MEDS: Artificial Tears Opth Drops 15 ML Bottle EACH EYE SCH ×3 (05:15→22:57)
[2018-06-30] MEDS: Lacosamide Inj 50 MG in Sodium Chlor 0.9% Inj 100 ML IV.SIG SCH ×2 (05:30→17:53)
[2018-06-30] MEDS: Senna/Docusate Sodium 8.6/50 MG Tablet PO SCH ×2 (09:54→22:56)
[2018-06-30] MEDS: Enoxaparin Inj 40 MG/0.4 ML Syringe SQ SCH (09:54)
[2018-06-30] MEDS: Sodium Chloride 1 GM Tablet PO SCH ×2 (09:54→22:56)
[2018-06-30] MEDS: amLODIPine 5 MG Tablet PO SCH (09:55)
[2018-06-30] MEDS: Metoprolol Tartrate 50 MG Tablet PO SCH ×2 (09:55→22:56)
[2018-06-30] MEDS: Lisinopril 20 MG Tablet PO SCH (09:55)
[2018-06-30] MEDS: Budesonide-Formoterol 160/4.5 MCG 6 GM Inhaler INH SCH ×2 (09:56→22:57)
[2018-06-30] MEDS: levETIRAcetam Inj 1,500 MG in Sodium Chlor 0.9% Inj 100 ML IV.SIG SCH ×2 (10:22→22:58)
--- NOTE | 2018-06-30 12:30 | P.PNPL ---
Subjective Interval history: Patient is lying in be din NAD. On room air oxygen. Afebrile. Physical Exam Vital signs: Vital Signs 06/29/18 16:00 06/29/18 20:05 06/29/18 23:50 Temperature 98.2 F 97.6 F 97.7 F Pulse Rate 88 77 75 Respiratory Rate 16 18 18 Blood Pressure 147/65 H 129/58 L 129/56 L Pulse Oximetry 97 95 95 06/30/18 05:35 06/30/18 08:19 06/30/18 11:51 Temperature 98.3 F 97.0 F L 98.2 F Pulse Rate 82 68 91 H Respiratory Rate 18 16 18 Blood Pressure 134/67 124/68 145/65 H Pulse Oximetry 95 96 96 Intake & Output 06/29/18 06/30/18 06/30/18 18:59 06:59 18:59 Intake Total 1223 / 1223 1433 / 1433 Output Total 1700 / 1700 Balance 1223 / 1223 -267 / -267 Intake: IV 1223 / 1223 1433 / 1433 Cerebyx Inj 200 MGPE In NS Inj 108 / 108 108 / 108 50 ML @ 216 mls/hr IV.SIG Q8HR [facility] Rx#:[id number] Vimpat Inj 50 MG In NS Inj 100 210 / 210 ML @ 105 mls/hr IV.SIG Q12H [facility] Rx#:[id number] NS Inj 1,000 ML @ 100 mls/hr IV 1000 / 1000 1000 / 1000 .SIG .Q10H [facility] Rx#:[id number] Keppra Inj 1,500 MG In NS Inj 115 / 115 115 / 115 100 ML @ 400 mls/hr IV.SIG Q12H [facility] Rx#:[id number] Output: Urine 1700 / 1700 Other: Date of Last Bowel Movement 06/28/18 06/28/18 06/28/18 - Constitutional no acute distress - Routine HEENT Exam Head: Present: normocephalic, atraumatic Eye: Present: EOMI, PERRL, normal accommodation, conjunctivae pink ENT: Present: mucous membranes moist - Routine Neck Exam Present: supple, full ROM, trachea midline - Routine Respiratory Exam Present: CTA bilaterally - Routine Cardiovascular Exam Present: RRR, S1, S2 - Routine Abdominal Exam Present: soft, normoactive bowel sounds - Routine Extremities Exam Present: pulses intact - Routine Skin Exam Present: intact, dry - Routine Neurological Exam Present: alert, oriented X3, CN II-XII intact - Urinary Catheter Management Female External Cath placed during this visit: yes Reason for continuing: Acute urinary retention Insertion date: 06/24/18 Insertion time: 14:45 Indwelling Urethral Catheter Cath placed during this visit: yes, but has since been removed by the nurse Reason for continuing: Decision to DC catheter Insertion date: 06/05/18 Insertion time: 08:30 Removal date: 06/16/18 Removal time: 21:51 Assessment and Plan - Assessment (1) Intraventricular hemorrhage, nontraumatic Code(s): I61.5 - Nontraumatic intracerebral hemorrhage, intraventricular Status: Acute (2) Hypertensive emergency Code(s): I16.1 - Hypertensive emergency Status: Acute (3) Metabolic encephalopathy Code(s): G93.41 - Metabolic encephalopathy Status: Acute (4) Altered mental status Code(s): R41.82 - Altered mental status, unspecified Status: Acute Qualifiers: Altered mental status type: unspecified Qualified Code(s): R41.82 - Altered mental status, unspecified (5) History of peripheral arterial disease Code(s): Z86.79 - Personal history of other diseases of the circulatory system Status: Chronic (6) History of hypertension Code(s): Z86.79 - Personal history of other diseases of the circulatory system Status: Chronic (7) Cessation of tobacco use in previous 12 months Code(s): Z87.891 - Personal history of nicotine dependence Status: Chronic - Plan 1)Resp Insuff 2)Hemorrhagic intraventricular mass with asymmetric left sided ventricular dilatation 3)s/p left frontal craniotomy for resection of intraventricular tumor - Astrocytoma 4)Hx Tobacco use/COPD 5)1.6 x 1.1 cm spiculated RUL lung nodule concerning for metastasis or primary lung malignancy. 3 mm subpleural nodules LLL 6)HTN Plan Oxygen PRN keep sats >92% Bronchodilators ( DuoNeb, Symbicort) Incentive spirometry CXR 06/29: No obvious pulm infiltrates For CT guided lung biopsy r/o bronchogenic ca Continue treatment plan.
--- NOTE | 2018-06-30 12:38 | P.PNNS ---
Subjective Interval history: Sitting up in chair, slowly improving Neuro exam, no overnight events Physical Exam Vital signs: Vital Signs 06/29/18 16:00 06/29/18 20:05 06/29/18 23:50 Temperature 98.2 F 97.6 F 97.7 F Pulse Rate 88 77 75 Respiratory Rate 16 18 18 Blood Pressure 147/65 H 129/58 L 129/56 L Pulse Oximetry 97 95 95 06/30/18 05:35 06/30/18 08:19 06/30/18 11:51 Temperature 98.3 F 97.0 F L 98.2 F Pulse Rate 82 68 91 H Respiratory Rate 18 16 18 Blood Pressure 134/67 124/68 145/65 H Pulse Oximetry 95 96 96 Intake & Output 06/29/18 06/30/18 06/30/18 18:59 06:59 18:59 Intake Total 1223 / 1223 1433 / 1433 Output Total 1700 / 1700 Balance 1223 / 1223 -267 / -267 Intake: IV 1223 / 1223 1433 / 1433 Cerebyx Inj 200 MGPE In NS Inj 108 / 108 108 / 108 50 ML @ 216 mls/hr IV.SIG Q8HR [facility] Rx#:[id number] Vimpat Inj 50 MG In NS Inj 100 210 / 210 ML @ 105 mls/hr IV.SIG Q12H [facility] Rx#:[id number] NS Inj 1,000 ML @ 100 mls/hr IV 1000 / 1000 1000 / 1000 .SIG .Q10H [facility] Rx#:[id number] Keppra Inj 1,500 MG In NS Inj 115 / 115 115 / 115 100 ML @ 400 mls/hr IV.SIG Q12H [facility] Rx#:[id number] Output: Urine 1700 / 1700 Other: Date of Last Bowel Movement 06/28/18 06/28/18 06/28/18 - Constitutional no acute distress, thin - Routine HEENT Exam Head: Present: normocephalic Eye: Present: EOMI, PERRL, normal accommodation ENT: Present: mucous membranes moist, oropharynx clear - Routine Neck Exam Present: supple, full ROM, trachea midline - Routine Respiratory Exam Present: CTA bilaterally - Routine Cardiovascular Exam Present: RRR - Routine Abdominal Exam Present: soft, normoactive bowel sounds - Routine Extremities Exam Present: full ROM, pulses intact, normal capillary refill - Routine Skin Exam Present: intact, warm, normal turgor - Routine Neurological Exam awake, alert mouthing some words but not clearly vocalizing pupils equal moves extremities with right side weakness mild right sided neglect surgical head wound well healed - Detailed Neurological Exam: Coma Scale Eye Opening: Spontaneous Verbal Response: Words Motor Response: Obey commands [place] Coma Scale Total: 13 - Routine Psychiatric Exam Present: normal affect, normal thought process, cooperative - Urinary Catheter Management Female External Cath placed during this visit: yes Reason for continuing: Acute urinary retention Insertion date: 06/24/18 Insertion time: 14:45 Indwelling Urethral Catheter Cath placed during this visit: yes, but has since been removed by the nurse Reason for continuing: Decision to DC catheter Insertion date: 06/05/18 Insertion time: 08:30 Removal date: 06/16/18 Removal time: 21:51 Assessment and Plan - Plan 78 yo female with vague constellation of symptoms GCS-[address] shows 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 hemorrhagic mass Will follow with you 05/30/18: cont neuro checks in ICU Dr. 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 Palacios NPO [facility] monday cont hold Plavix dw nursing avoid over sedation will follow 06/02/18 Patient appears to be roughly neurologically stable Dr. 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 at midnight on Monday night into Monday Minimize sedating meds, etc. 06/03/18: Appears to be a bit more encephalopathic today, possible contribution of hospital delirium versus her mild hydrocephalus, though favor delirium since her level of alertness remains stable Dr. 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 at midnight tonight Continue to minimize sedating meds, etc. 06/04/18: surgery rescheduled for tomorrow morning patient may resume diet today[facility] 06/05/18 in OR for left frontal cranitomy for resection of intraventricular tumor by Dr. Palacios 06/06/18: POD #1. pt had seizure last night requiring intubation. She has been started on Keppra for seizures. On exam she opens eyes and follows commands. Postoperative MRI Brain w/wo contrast has been ordered and pending. Obtain EEG to assess seizures. Continue ventriculostomy draining, add ICP monitoring. Start sq lovenox for dvt prophylaxis. Will follow. 06/07/18: POD #2. patient neurologically stable, opens eyes and follows commands. Postoperative MRI Brain reviewed by neurosurgery team. Spot EEG reports no ongoing seizures, with high amplitude sharp waves on left?breach rhythm. Critical care plans on extubation today. Continue ventriculostomy draining at 10 mmHg. Final pathology pending. Neurology following for seizure management. Will follow. 06/08/18: POD #3. patient neurologically stable, opens eyes and follows commands. Ventriculostomy draining well with controlled ICPs, will continue at 10mmHg. Pathology still pending. cont seizure management per Neurology. dw critical care. will follow. 06/09/2018 POD#4 Remains Neurologically stable, follows commands Stop sedation wean ventilator to CPAP 5 x 12 and FiO2 30% Continue DuoNeb nebs 4 times daily. Check respiratory parameters and consider extubation Agree with Symbicort 160 about 4.5 mcg 1 puff twice daily and Solu-Medrol 40 mg IV twice daily Continue EVD Would maintain SBP 140-160 to improve CPP. 06/10/2018 POD#5 Seizure yesterday, and last night, have increased Cerebyx and Keppra D/C'ed Barbs would prefer to maintain on 2 agents and high therapeutic levels of Cerebyx, usually best with brain tumors Free Dilantin levels not easily obtainable here. Lets keep level around 20 with standard level remains Neurologically stable wean ventilator to CPAP 5 x 12 and FiO2 30% and if OK, may extubate from Neurosurgical standpoint. 06/11/18 POD #6 seizures controlled overnight, will continue Cerebyx 200 tid and Keppra 1500 bid. Dilantin levels 17.6 today continue critical care - vent weaning - CPAP trials cont EVD draining at 5 mmHg final pathology still pending will follow 06/12/18 POD #7 pt failed extubation yesterday, reintubated- critical care managing repeat EEG 06/11/18 abnormal with sharp activities left hemisphere dilantin levels 18.8 this morning cont current anticonvulsants, will repeat EEG today obtained follow up CT Brain this morning which was reviewed by Dr. Perdue, EVD raised to 15 mmHg neuro exam today appears better final pathology still pending 06/13/18 POD #8 neurologically she is awake, alert EEG yesterday 06/12/18 - mod encephalopathy, no reports of any seizure activities cont current anticonvulsants, Dilantin levels trending up pending today, started on Zosyn for gram neg rods in sputum - per critical care cont EVD challenge, cont at 15 mmHg today, plan to clamp tomorrow will follow 06/14/18 POD #9 neurologically remains awake and alert Ventriculostomy drain clamped today, follow up CT Head tomorrow am will follow 06/15/18: POD #10 neuro exam with no changes, f/u CT Head post EVD clamping reviewed by neurosurgery team, ventriculostomy drain removed, using sterile technique single stitch place, patient tolerated procedure well cont critical care management seizures controlled, continue current anticonvulsants FINAL PATHOLOGY: LOW GRADE NEOPLASM, MOST CONSISTENT WITH PILOCYTIC ASTROCYTOMA ; 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 current management Discussed Path with patient's son 06/17/2018 POD#12 Neuro: no sig. changes seizures controlled aggressive CPAP trials today DPH level 5.5 Bolused with 500 mgs. cont. ICU 06/18/2018 no neurological changes continue CPAP trials, vent wean to extubate remove surgical mamadou Dr. 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 Snell - continue CPAP, ?extubate pulmonology also following 06/20/2018 patient extubated, neuro exam unchanged, stable reconsult medical oncology for reeval for poss chemotherapy for pilocytic astrocytoma radiation oncology eval pending will follow 06/21/2018 neuro exam relatively stable, she waxes and wanes- dw nursing she is stable from NRS standpoint for a step down unit, radiation oncology for work up outpatient and potential xrt appreciate oncology reeval: there is no chemotherapy to offer for the low grade astrocytoma 06/22/2018 continue physical, occupation, and speech therapy increase activity, OOB to chair cont present care will follow 06/23/2018 continue physical, occupation, and speech therapy increase activity, OOB to chair cont present care will follow 06/24/2018 continue physical, occupation, and speech therapy increase activity, OOB to chair cont present care appears to be gradually improving. will follow 06/25/2018 increase activity, OOB to chair PT/OT/ST Rehab Consult cont present care slowly improving. will continue to follow 06/26/2018 OOB to chair TID PT/OT/ST ready for transfer to Rehab from Neurosurgical standpoint cont present care slowly improving. will continue to follow 06/27/2018 Remains Neurologically stable Head CT reviewed Showing slow but continued improvement OOB to chair TID PT/OT/ST ready for transfer to Rehab from Neurosurgical standpoint head MRI w/o PÉREZ to assess hydrocephalus, unclear as to why she is unable to phonate. Patient has a low grade glioma, will not require chemo or radiation. These are biologically not aggressive. Will require subacute rehab/nursing facility cont present care will continue to follow 06/28/2018 POD #23 neuro stable follow up head MRI reviewed by neurosurgery team, consult placed to ENT specialist for laryngoscopy of vocal cords due to loss of voice continue physical, occupational, and speech therapy will follow 06/29/2018 POD #24 remains neurologically stable evaluation by ENT specialist pending continue with therapy and rehab efforts will follow 06/30/2018 POD #25 remains neurologically stable evaluation by ENT specialist pending would like evaluation of vocal cords continue with therapy and rehab efforts Awaits Rehab placement will continue to follow
--- NOTE | 2018-06-30 14:49 | P.PNIM ---
Subjective Interval history: Follow-up for hemorrhagic intracranial mass status post surgical resection, lung mass. Patient is resting in bed, not as alert as yesterday. However, she wakes up on verbal commands, follows commands appropriately. Discussed with patient's and son as well. Physical Exam Vital signs: Vital Signs 06/29/18 16:00 06/29/18 20:05 06/29/18 23:50 Temperature 98.2 F 97.6 F 97.7 F Pulse Rate 88 77 75 Respiratory Rate 16 18 18 Blood Pressure 147/65 H 129/58 L 129/56 L Pulse Oximetry 97 95 95 06/30/18 05:35 06/30/18 08:19 Temperature 98.3 F 97.0 F L Pulse Rate 82 68 Respiratory Rate 18 16 Blood Pressure 134/67 124/68 Pulse Oximetry 95 96 Intake & Output 06/29/18 06/30/18 06/30/18 18:59 06:59 18:59 Intake Total 1223 / 1223 1433 / 1433 Output Total 1700 / 1700 Balance 1223 / 1223 -267 / -267 Intake: IV 1223 / 1223 1433 / 1433 Cerebyx Inj 200 MGPE In NS Inj 108 / 108 108 / 108 50 ML @ 216 mls/hr IV.SIG Q8HR [facility] Rx#:[id number] Vimpat Inj 50 MG In NS Inj 100 210 / 210 ML @ 105 mls/hr IV.SIG Q12H [facility] Rx#:[id number] NS Inj 1,000 ML @ 100 mls/hr IV 1000 / 1000 1000 / 1000 .SIG .Q10H [facility] Rx#:[id number] Keppra Inj 1,500 MG In NS Inj 115 / 115 115 / 115 100 ML @ 400 mls/hr IV.SIG Q12H [facility] Rx#:[id number] Output: Urine 1700 / 1700 Other: Date of Last Bowel Movement 06/28/18 06/28/18 06/28/18 Narrative: GENERAL: Alert, NAD. Verbalizing better today. SKIN: Warm and dry. HEAD: S/p craniotomy. EYES: No scleral icterus. No injection or drainage. NECK: Supple, trachea midline. No JVD or lymphadenopathy. CARDIOVASCULAR: Regular rate and rhythm without murmurs, gallops, or rubs. RESPIRATORY: Breath sounds equal bilaterally. No accessory muscle use. GASTROINTESTINAL: Abdomen soft, non-tender, nondistended. MUSCULOSKELETAL: No cyanosis, or edema. BACK: Nontender without obvious deformity. No CVA tenderness. Urinary Catheter Management Female External: Cath placed during this visit: yes Reason for continuing: Acute urinary retention Insertion date: 06/24/18 Insertion time: 14:45 Indwelling Urethral Catheter: Cath placed during this visit: yes, but has since been removed by the nurse Reason for continuing: Decision to DC catheter Insertion date: 06/05/18 Insertion time: 08:30 Removal date: 06/16/18 Removal time: 21:51 Results Labs CBC & Chem 7: 06/22/18 04:28 06/29/18 06:55 Assessment and Plan Plan 78-year-old white female was transferred from [facility] with 1 week history of memory loss hallucination and found to have subacute anterior ventricular hemorrhage and 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 Kapadia review case recommended no chemo and refer to radiation oncology. Per oncology, Dr. 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 -Dr. Clemons has been consulted and recommends outpatient follow-up for radiation treatment -EEG originally negative for seizures -Repeat EEG 06/06 field possible left frontal breakthrough. -MRA 06/06 brain revealed left lateral ventricle resection, intervertebral hemorrhage slightly decreased. Small subdural hematoma. Rightward shift 5 mm. -Currently on fosphenytoin 200 mg every 8 hours. -On levetiracetam 1500 mg IV twice daily. -Continue lacosamide 50 mg twice daily per neurosurgery Acute hypoxic and hypercarbic respiratory failure-now extubated and on nasal cannula 2 L oxygen Previous tobacco use Right upper lobe mass HCAP ventilator associated pneumonia -Pulmonology consulted for right upper lobe mass concerning for primary malignancy, with adrenal mass -Pulmonary Dr. Evans suggesting CT-guided biopsy and PET scan once clinically more stable -Probable CT guided lung biopsy next week. Discussed with Dr. Evans on 2018. Hypertensive emergency History of hypertension Peripheral arterial disease -Continue home enalapril 40 mg daily and amlodipine 5 mg daily increased to 10 mg daily, continue pravastatin 40 mg daily. metoprolol tartrate 50 mg twice daily -We will place holding parameters on BP meds. Today, BP has been within normal range without any meds. 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 Repeat BMP in the AM. Full code. Lovenox. Discharge plan: Probable Lung mass bx next week and David will evaluate patient on Monday07/02/2018. Progress Note: Quality VTE Deep Vein Thrombosis/Pulmonary Embolism Present on Admission: No
[2018-07-01] MEDS: Lacosamide Inj 50 MG in Sodium Chlor 0.9% Inj 100 ML IV.SIG SCH ×2 (05:20→17:35)
[2018-07-01] MEDS: Artificial Tears Opth Drops 15 ML Bottle EACH EYE SCH ×3 (05:21→23:15)
[2018-07-01] MEDS: Sod Chloride 0.9% Inj 1,000 ML IV.SIG SCH ×2 (05:21→15:45)
[2018-07-01] MEDS: Fosphenytoin Inj 200 MGPE in Sodium Chlor 0.9% Inj 50 ML IV.SIG SCH ×3 (05:21→23:13)
--- NOTE | 2018-07-01 09:29 | P.PNNS ---
Subjective Interval history: July 01, 2018patient seen and examined, follows some commands however she has difficulty verbalizing. Afebrile. Physical Exam Vital signs: Vital Signs 06/30/18 12:27 06/30/18 17:06 06/30/18 20:00 Temperature 95.7 F L 98.0 F 97.3 F L Pulse Rate 61 68 77 Respiratory Rate 16 16 18 Blood Pressure 122/66 112/62 141/62 H Pulse Oximetry 94 L 93 L 95 07/01/18 00:00 07/01/18 04:50 07/01/18 08:00 Temperature 97.4 F L 97.8 F 98.3 F Pulse Rate 67 86 81 Respiratory Rate 18 18 16 Blood Pressure 125/59 L 157/67 H 134/58 L Pulse Oximetry 95 95 92 L Intake & Output 06/30/18 07/01/18 07/01/18 18:59 06:59 18:59 Intake Total 1169 / 1169 433 / 433 Output Total 1550 / 1550 Balance 1169 / 1169 -1117 / -1117 Weight 62.6 kg Intake: IV 1169 / 1169 433 / 433 Cerebyx Inj 200 MGPE In NS Inj 54 / 54 108 / 108 50 ML @ 216 mls/hr IV.SIG Q8HR [facility] Rx#:[id number] Vimpat Inj 50 MG In NS Inj 100 210 / 210 ML @ 105 mls/hr IV.SIG Q12H [facility] Rx#:[id number] NS Inj 1,000 ML @ 100 mls/hr IV 1000 / 1000 .SIG .Q10H [facility] Rx#:[id number] Keppra Inj 1,500 MG In NS Inj 115 / 115 115 / 115 100 ML @ 400 mls/hr IV.SIG Q12H [facility] Rx#:[id number] Output: Urine 1550 / 1550 Other: Date of Last Bowel Movement 06/28/18 06/28/18 06/28/18 - Constitutional no acute distress, thin, cooperative - Routine HEENT Exam Head: Present: normocephalic, atraumatic Eye: Present: EOMI, PERRL, normal accommodation ENT: Present: mucous membranes moist, oropharynx clear Comments: Left frontal region incision clean, dry, intact - Routine Neck Exam Present: supple, full ROM, trachea midline - Routine Respiratory Exam Present: CTA bilaterally - Routine Cardiovascular Exam Present: RRR - Routine Abdominal Exam Present: soft, normoactive bowel sounds - Routine Extremities Exam Present: clubbing, full ROM, normal capillary refill - Routine Skin Exam Present: intact, warm, normal turgor - Routine Neurological Exam awake, alert showing some improvement mouthing some words but not clearly vocalizing pupils equal moves extremities with right side weakness mild right sided neglect surgical head wound well healed - Detailed Neurological Exam: Coma Scale Eye Opening: Spontaneous Verbal Response: Confused Motor Response: Obey commands Sofy Coma Scale Total: 14 - Routine Psychiatric Exam Present: cooperative - Urinary Catheter Management Female External Cath placed during this visit: yes Reason for continuing: Acute urinary retention Insertion date: 06/24/18 Insertion time: 14:45 Indwelling Urethral Catheter Cath placed during this visit: yes, but has since been removed by the nurse Reason for continuing: Decision to DC catheter Insertion date: 06/05/18 Insertion time: 08:30 Removal date: 06/16/18 Removal time: 21:51 Assessment and Plan - Plan 78 yo female with vague constellation of symptoms GCS-[address] shows 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 hemorrhagic mass Will follow with you 05/30/18: cont neuro checks in ICU Dr. 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 Palaicos NPO MN monday cont hold Plavix dw nursing avoid over sedation will follow 06/02/18 Patient appears to be roughly neurologically stable Dr. 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 at midnight on Monday night into Monday Minimize sedating meds, etc. 06/03/18: Appears to be a bit more encephalopathic today, possible contribution of hospital delirium versus her mild hydrocephalus, though favor delirium since her level of alertness remains stable Dr. 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 at midnight tonight Continue to minimize sedating meds, etc. 06/04/18: surgery rescheduled for tomorrow morning patient may resume diet today, NPO at [place] tonight cont hold Plavix 06/05/18 in OR for left frontal cranitomy for resection of intraventricular tumor by Dr. Palacios 06/06/18: POD #1. pt had seizure last night requiring intubation. She has been started on Keppra for seizures. On exam she opens eyes and follows commands. Postoperative MRI Brain w/wo contrast has been ordered and pending. Obtain EEG to assess seizures. Continue ventriculostomy draining, add ICP monitoring. Start sq lovenox for dvt prophylaxis. Will follow. 06/07/18: POD #2. patient neurologically stable, opens eyes and follows commands. Postoperative MRI Brain reviewed by neurosurgery team. Spot EEG reports no ongoing seizures, with high amplitude sharp waves on left?breach rhythm. Critical care plans on extubation today. Continue ventriculostomy draining at 10 mmHg. Final pathology pending. Neurology following for seizure management. Will follow. 06/08/18: POD #3. patient neurologically stable, opens eyes and follows commands. Ventriculostomy draining well with controlled ICPs, will continue at 10mmHg. Pathology still pending. cont seizure management per Neurology. dw critical care. will follow. 06/09/2018 POD#4 Remains Neurologically stable, follows commands Stop sedation wean ventilator to CPAP 5 x 12 and FiO2 30% Continue DuoNeb nebs 4 times daily. Check respiratory parameters and consider extubation Agree with Symbicort 160 about 4.5 mcg 1 puff twice daily and Solu-Medrol 40 mg IV twice daily Continue EVD Would maintain SBP 140-160 to improve CPP. 06/10/2018 POD#5 Seizure yesterday, and last night, have increased Cerebyx and Keppra D/C'ed Barbs would prefer to maintain on 2 agents and high therapeutic levels of Cerebyx, usually best with brain tumors Free Dilantin levels not easily obtainable here. Lets keep level around 20 with standard level remains Neurologically stable wean ventilator to CPAP 5 x 12 and FiO2 30% and if OK, may extubate from Neurosurgical standpoint. 06/11/18 POD #6 seizures controlled overnight, will continue Cerebyx 200 tid and Keppra 1500 bid. Dilantin levels 17.6 today continue critical care - vent weaning - CPAP trials cont EVD draining at 5 mmHg final pathology still pending will follow 06/12/18 POD #7 pt failed extubation yesterday, reintubated- critical care managing repeat EEG 06/11/18 abnormal with sharp activities left hemisphere dilantin levels 18.8 this morning cont current anticonvulsants, will repeat EEG today obtained follow up CT Brain this morning which was reviewed by Dr. Perdue, EVD raised to 15 mmHg neuro exam today appears better final pathology still pending 06/13/18 POD #8 neurologically she is awake, alert EEG yesterday 06/12/18 - mod encephalopathy, no reports of any seizure activities cont current anticonvulsants, Dilantin levels trending up pending today, started on Zosyn for gram neg rods in sputum - per critical care cont EVD challenge, cont at 15 mmHg today, plan to clamp tomorrow will follow 06/14/18 POD #9 neurologically remains awake and alert Ventriculostomy drain clamped today, follow up CT Head tomorrow am will follow 06/15/18: POD #10 neuro exam with no changes, f/u CT Head post EVD clamping reviewed by neurosurgery team, ventriculostomy drain removed, using sterile technique single stitch place, patient tolerated procedure well cont critical care management seizures controlled, continue current anticonvulsants FINAL PATHOLOGY: LOW GRADE NEOPLASM, MOST CONSISTENT WITH PILOCYTIC ASTROCYTOMA ; 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 current management Discussed Path with patient's son 06/17/2018 POD#12 Neuro: no sig. changes seizures controlled aggressive CPAP trials today DPH level 5.5 Bolused with 500 mgs. cont. ICU 06/18/2018 no neurological changes continue CPAP trials, vent wean to extubate remove surgical mamadou Dr. 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 Snell - continue CPAP, ?extubate pulmonology also following 06/20/2018 patient extubated, neuro exam unchanged, stable reconsult medical oncology for reeval for poss chemotherapy for pilocytic astrocytoma radiation oncology eval pending will follow 06/21/2018 neuro exam relatively stable, she waxes and wanes- dw nursing she is stable from NRS standpoint for a step down unit, radiation oncology for work up outpatient and potential xrt appreciate oncology reeval: there is no chemotherapy to offer for the low grade astrocytoma 06/22/2018 continue physical, occupation, and speech therapy increase activity, OOB to chair cont present care will follow 06/23/2018 continue physical, occupation, and speech therapy increase activity, OOB to chair cont present care will follow 06/24/2018 continue physical, occupation, and speech therapy increase activity, OOB to chair cont present care appears to be gradually improving. will follow 06/25/2018 increase activity, OOB to chair PT/OT/ST Rehab Consult cont present care slowly improving. will continue to follow 06/26/2018 OOB to chair TID PT/OT/ST ready for transfer to Rehab from Neurosurgical standpoint cont present care slowly improving. will continue to follow 06/27/2018 Remains Neurologically stable Head CT reviewed Showing slow but continued improvement OOB to chair TID PT/OT/ST ready for transfer to Rehab from Neurosurgical standpoint head MRI w/o PÉREZ to assess hydrocephalus, unclear as to why she is unable to phonate. Patient has a low grade glioma, will not require chemo or radiation. These are biologically not aggressive. Will require subacute rehab/nursing facility cont present care will continue to follow 06/28/2018 POD #23 neuro stable follow up head MRI reviewed by neurosurgery team, consult placed to ENT specialist for laryngoscopy of vocal cords due to loss of voice continue physical, occupational, and speech therapy will follow 06/29/2018 POD #24 remains neurologically stable evaluation by ENT specialist pending continue with therapy and rehab efforts will follow 06/30/2018 POD #25 remains neurologically stable evaluation by ENT specialist pending would like evaluation of vocal cords continue with therapy and rehab efforts [facility] will continue to follow 07/01/2018 POD #26 Slow but continued improvement neurologically evaluation by ENT specialist pending would like evaluation of vocal cords and phonation continue with therapy and rehab efforts [facility] ( OK to transfer from Neurosurgical standpoint when bed available. May start XRT this week. will continue to follow
[2018-07-01] MEDS: Enoxaparin Inj 40 MG/0.4 ML Syringe SQ SCH (09:40)
[2018-07-01] MEDS: amLODIPine 5 MG Tablet PO SCH (09:46)
[2018-07-01] MEDS: Sodium Chloride 1 GM Tablet PO SCH ×2 (09:46→23:14)
[2018-07-01] MEDS: Senna/Docusate Sodium 8.6/50 MG Tablet PO SCH ×2 (09:47→23:14)
[2018-07-01] MEDS: Metoprolol Tartrate 50 MG Tablet PO SCH ×2 (09:47→23:14)
[2018-07-01] MEDS: Lisinopril 20 MG Tablet PO SCH (09:47)
[2018-07-01] MEDS: Budesonide-Formoterol 160/4.5 MCG 6 GM Inhaler INH SCH ×2 (09:48→23:15)
--- NOTE | 2018-07-01 10:32 | P.PNIM ---
Subjective Interval history: Follow-up hemorrhagic intracranial mass status post surgical resection/lung mass July 01, 2018patient seen and examined, follows some commands however she has difficulty verbalizing. Afebrile. Physical Exam Vital signs: Vital Signs 06/30/18 12:27 06/30/18 17:06 06/30/18 20:00 Temperature 95.7 F L 98.0 F 97.3 F L Pulse Rate 61 68 77 Respiratory Rate 16 16 18 Blood Pressure 122/66 112/62 141/62 H Pulse Oximetry 94 L 93 L 95 07/01/18 00:00 07/01/18 04:50 07/01/18 08:00 Temperature 97.4 F L 97.8 F 98.3 F Pulse Rate 67 86 81 Respiratory Rate 18 18 16 Blood Pressure 125/59 L 157/67 H 134/58 L Pulse Oximetry 95 95 92 L Intake & Output 06/30/18 07/01/18 07/01/18 18:59 06:59 18:59 Intake Total 1169 / 1169 433 / 433 Output Total 1550 / 1550 Balance 1169 / 1169 -1117 / -1117 Weight 62.6 kg Intake: IV 1169 / 1169 433 / 433 Cerebyx Inj 200 MGPE In NS Inj 54 / 54 108 / 108 50 ML @ 216 mls/hr IV.SIG Q8HR [facility] Rx#:[id number] Vimpat Inj 50 MG In NS Inj 100 210 / 210 ML @ 105 mls/hr IV.SIG Q12H [facility] Rx#:[id number] NS Inj 1,000 ML @ 100 mls/hr IV 1000 / 1000 .SIG .Q10H [facility] Rx#:[id number] Keppra Inj 1,500 MG In NS Inj 115 / 115 115 / 115 100 ML @ 400 mls/hr IV.SIG Q12H [facility] Rx#:[id number] Output: Urine 1550 / 1550 Other: Date of Last Bowel Movement 06/28/18 06/28/18 06/28/18 Narrative: GENERAL: Alert, NAD. SKIN: Warm and dry. HEAD: S/p craniotomy. EYES: No scleral icterus. No injection or drainage. NECK: Supple, trachea midline. No JVD or lymphadenopathy. CARDIOVASCULAR: Regular rate and rhythm without murmurs, gallops, or rubs. RESPIRATORY: Breath sounds equal bilaterally. No accessory muscle use. GASTROINTESTINAL: Abdomen soft, non-tender, nondistended. MUSCULOSKELETAL: No cyanosis, or edema. BACK: Nontender without obvious deformity. No CVA tenderness. 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 -Dr. Clemons has been consulted and recommends outpatient follow-up for radiation treatment -EEG originally negative for seizures -Repeat EEG 06/06 field possible left frontal breakthrough. -MRA 06/06 brain revealed left lateral ventricle resection, intervertebral hemorrhage slightly decreased. Small subdural hematoma. Rightward shift 5 mm. -Currently on fosphenytoin 200 mg every 8 hours. -On levetiracetam 1500 mg IV twice daily. -Continue lacosamide 50 mg twice daily per neurosurgery Acute hypoxic and hypercarbic respiratory failure-now extubated and on nasal cannula 2 L oxygen Previous tobacco use Right upper lobe mass HCAP ventilator associated pneumonia -Pulmonology consulted for right upper lobe mass concerning for primary malignancy, with adrenal mass -Probable CT guided lung biopsy next week. -Outpatient PET scan recommended Hypertensive emergency-resolved History of hypertension Peripheral arterial disease -Continue home enalapril 40 mg daily and amlodipine 5 mg daily increased to 10 mg daily, continue pravastatin 40 mg daily. - metoprolol tartrate 50 mg twice daily Left adrenal mass 1.3 x 1.2 cm Colonic diverticulosis Right liver mass versus cyst Elevated LFTs Acute urinary retention - placed song 06/24- d/w staff- document output- got 1725 cc - keep song- song care protocol - change q 30 days -Resolved Full code. Lovenox. Discharge plan: Probable Lung mass bx next week and David will evaluate patient on Monday07/02/2018. Progress Note: Quality VTE Deep Vein Thrombosis/Pulmonary Embolism Present on Admission: No
[2018-07-01] MEDS: levETIRAcetam Inj 1,500 MG in Sodium Chlor 0.9% Inj 100 ML IV.SIG SCH ×2 (12:16→23:13)
[2018-07-01] MEDS: Acetaminophen 325 MG Tablet PO PRN (15:45)
[2018-07-01] MEDS ORDERED: hydrALAZINE 25 MG Tablet PO ONE (16:45)
[2018-07-02] MEDS: Artificial Tears Opth Drops 15 ML Bottle EACH EYE SCH ×3 (05:49→23:29)
[2018-07-02] MEDS: Fosphenytoin Inj 200 MGPE in Sodium Chlor 0.9% Inj 50 ML IV.SIG SCH ×2 (05:49→14:47)
[2018-07-02] MEDS: Sod Chloride 0.9% Inj 1,000 ML IV.SIG SCH ×3 (05:50→23:28)
[2018-07-02] MEDS: Lacosamide Inj 50 MG in Sodium Chlor 0.9% Inj 100 ML IV.SIG SCH ×2 (06:16→17:10)
[2018-07-02] MEDS: Metoprolol Tartrate 50 MG Tablet PO SCH ×2 (08:30→22:30)
[2018-07-02] MEDS: Sodium Chloride 1 GM Tablet PO SCH ×2 (08:30→23:27)
[2018-07-02] MEDS: Lisinopril 20 MG Tablet PO SCH (08:30)
[2018-07-02] MEDS: Senna/Docusate Sodium 8.6/50 MG Tablet PO SCH ×2 (08:30→23:27)
[2018-07-02] MEDS: amLODIPine 5 MG Tablet PO SCH (08:30)
[2018-07-02] MEDS: Budesonide-Formoterol 160/4.5 MCG 6 GM Inhaler INH SCH ×2 (08:31→22:30)
[2018-07-02] MEDS: Enoxaparin Inj 40 MG/0.4 ML Syringe SQ SCH (08:31)
[2018-07-02] MEDS: levETIRAcetam Inj 1,500 MG in Sodium Chlor 0.9% Inj 100 ML IV.SIG SCH ×2 (11:07→22:30)
--- NOTE | 2018-07-02 11:34 | P.PN ---
Subjective Interval history: She is awake and on room air. We will go for CT-guided needle biopsy of lung nodule. No shortness of breath at rest. Physical Exam Vital signs: Vital Signs 07/01/18 12:00 07/01/18 15:43 07/01/18 16:00 Temperature 98.3 F 98 F Pulse Rate 79 96 H Respiratory Rate 18 20 Blood Pressure 153/67 H 180/62 H 171/71 H Pulse Oximetry 93 L 99 07/01/18 20:30 07/02/18 00:05 07/02/18 05:00 Temperature 98.5 F 98.8 F 98.4 F Pulse Rate 109 H 103 H 93 H Respiratory Rate 18 18 18 Blood Pressure 167/77 H 149/67 H 168/74 H Pulse Oximetry 94 L 94 L 93 L 07/02/18 07:20 07/02/18 08:22 Temperature 98.4 F Pulse Rate 96 H Respiratory Rate 20 18 Blood Pressure 160/69 H Pulse Oximetry 93 L Intake & Output 07/01/18 07/02/18 07/02/18 18:59 06:59 18:59 Intake Total 1169 / 1169 388 / 388 105 / 105 Output Total 2750 / 2750 525 / 525 Balance 1169 / 1169 -2362 / -2362 -420 / -420 Weight 62.5 kg Intake: IV 1169 / 1169 328 / 328 105 / 105 Cerebyx Inj 200 MGPE In NS Inj 54 / 54 108 / 108 50 ML @ 216 mls/hr IV.SIG Q8HR [facility] Rx#:[id number] Vimpat Inj 50 MG In NS Inj 100 105 / 105 105 / 105 ML @ 105 mls/hr IV.SIG Q12H [facility] Rx#:[id number] NS Inj 1,000 ML @ 100 mls/hr IV 1000 / 1000 .SIG .Q10H [facility] Rx#:[id number] Keppra Inj 1,500 MG In NS Inj 115 / 115 115 / 115 100 ML @ 400 mls/hr IV.SIG Q12H [facility] Rx#:[id number] Oral 60 / 60 Output: Urine 2750 / 2750 525 / 525 Other: Date of Last Bowel Movement 06/28/18 # Incontinent Bowel Movements 1 1 Narrative: awake, alert GENERAL: Elderly white female awake in no distress SKIN: Warm and dry. HEAD: Atraumatic. Normocephalic. EYES: Pupils equal and round. No scleral icterus. No injection or drainage. ENT: No nasal bleeding or discharge. Mucous membranes pink and moist. NECK: Trachea midline. No JVD. CARDIOVASCULAR: Regular rate and rhythm. RESPIRATORY: No accessory muscle use. Occasional wheezes in the right lung field. Breath sounds equal bilaterally. GASTROINTESTINAL: Abdomen soft, non-tender, nondistended. Hepatic and splenic margins not palpable. MUSCULOSKELETAL: Extremities without clubbing, cyanosis, or edema. No obvious deformities. NEUROLOGICAL: Awake and alert. No obvious cranial nerve deficits. Moves extremities but weak on the right. PSYCHIATRIC: Cannot assess - Urinary Catheter Management Female External Cath placed during this visit: yes Reason for continuing: Acute urinary retention Insertion date: 06/24/18 Insertion time: 14:45 Indwelling Urethral Catheter Cath placed during this visit: yes, but has since been removed by the nurse Reason for continuing: Decision to DC catheter Insertion date: 06/05/18 Insertion time: 08:30 Removal date: 06/16/18 Removal time: 21:51 Results - Labs CBC & Chem 7: 06/22/18 04:28 06/29/18 06:55 Assessment and Plan - Assessment (1) COPD (chronic obstructive pulmonary disease) Code(s): J44.9 - Chronic obstructive pulmonary disease, unspecified Status: Acute (2) Right upper lobe pulmonary nodule Code(s): R91.1 - Solitary pulmonary nodule Status: Acute (3) Intraventricular hemorrhage, nontraumatic Code(s): I61.5 - Nontraumatic intracerebral hemorrhage, intraventricular Status: Acute (4) Hypertensive emergency Code(s): I16.1 - Hypertensive emergency Status: Acute (5) Metabolic encephalopathy Code(s): G93.41 - Metabolic encephalopathy Status: Acute (6) Altered mental status Code(s): R41.82 - Altered mental status, unspecified Status: Acute (7) History of peripheral arterial disease Code(s): Z86.79 - Personal history of other diseases of the circulatory system Status: Chronic (8) History of hypertension Code(s): Z86.79 - Personal history of other diseases of the circulatory system Status: Chronic (9) Cessation of tobacco use in previous 12 months Code(s): Z87.891 - Personal history of nicotine dependence Status: Chronic - Plan 1 continue O2 nasal cannula 2 L as needed 2. Continue DuoNeb nebs 3 times daily. 3. Incentive spirometry [address]-guided needle biopsy of lung mass . 5. Continue physical therapy 6 Symbicort 160 about 4.5 mcg 1 puff twice daily 7. Chest x-ray in a.m. (6) Altered mental status Qualifiers: Altered mental status type: unspecified Qualified Code(s): R41.82 - Altered mental status, unspecified
--- NOTE | 2018-07-02 13:03 | P.PNNS ---
Subjective Interval history: nursing reports no changes overnight, nonverbal <Samanta Banda - Last Filed: 07/03/18 10:29> Physical Exam Vital signs: Vital Signs 07/02/18 00:05 07/02/18 05:00 07/02/18 07:20 Temperature 98.8 F 98.4 F 98.4 F Pulse Rate 103 H 93 H 96 H Respiratory Rate 18 18 20 Blood Pressure 149/67 H 168/74 H 160/69 H Pulse Oximetry 94 L 93 L 93 L 07/02/18 08:22 07/02/18 11:40 07/02/18 12:00 Temperature 98.1 F Pulse Rate 85 73 Respiratory Rate 18 20 Blood Pressure 118/57 L Pulse Oximetry 92 L 07/02/18 15:47 07/02/18 16:40 07/02/18 21:02 Temperature 98.3 F 98.5 F Pulse Rate 75 89 Respiratory Rate 18 20 18 Blood Pressure 125/61 139/66 Pulse Oximetry 94 L 93 L Intake & Output 07/02/18 07/02/18 07/03/18 06:59 18:59 06:59 Intake Total 388 / 388 379 / 379 Output Total 2750 / 2750 975 / 975 Balance -2362 / -2362 -596 / -596 Weight 62.5 kg Intake: IV 328 / 328 379 / 379 Cerebyx Inj 200 MGPE In NS Inj 108 / 108 54 / 54 50 ML @ 216 mls/hr IV.SIG Q8HR [facility] Rx#:[id number] Vimpat Inj 50 MG In NS Inj 100 105 / 105 210 / 210 ML @ 105 mls/hr IV.SIG Q12H [facility] Rx#:[id number] Keppra Inj 1,500 MG In NS Inj 115 / 115 115 / 115 100 ML @ 400 mls/hr IV.SIG Q12H [facility] Rx#:[id number] Oral 60 / 60 Output: Urine 2750 / 2750 975 / 975 Other: # Incontinent Bowel Movements 1 1 - Urinary Catheter Management Female External Cath placed during this visit: no Indwelling Urethral Catheter Cath placed during this visit: no <Duke Palacios - Last Filed: 07/02/18 23:03> Vital signs: Vital Signs 07/01/18 15:43 07/01/18 16:00 07/01/18 20:30 Temperature 98 F 98.5 F Pulse Rate 96 H 109 H Respiratory Rate 20 18 Blood Pressure 180/62 H 171/71 H 167/77 H Pulse Oximetry 99 94 L 07/02/18 00:05 07/02/18 05:00 07/02/18 07:20 Temperature 98.8 F 98.4 F 98.4 F Pulse Rate 103 H 93 H 96 H Respiratory Rate 18 18 20 Blood Pressure 149/67 H 168/74 H 160/69 H Pulse Oximetry 94 L 93 L 93 L 07/02/18 08:22 07/02/18 11:40 07/02/18 12:00 Temperature 98.1 F Pulse Rate 85 73 Respiratory Rate 18 20 Blood Pressure 118/57 L Pulse Oximetry 92 L Intake & Output 07/01/18 07/02/18 07/02/18 18:59 06:59 18:59 Intake Total 1169 / 1169 388 / 388 220 / 220 Output Total 2750 / 2750 525 / 525 Balance 1169 / 1169 -2362 / -2362 -305 / -305 Weight 62.5 kg Intake: IV 1169 / 1169 328 / 328 220 / 220 Cerebyx Inj 200 MGPE In NS Inj 54 / 54 108 / 108 50 ML @ 216 mls/hr IV.SIG Q8HR [facility] Rx#:[id number] Vimpat Inj 50 MG In NS Inj 100 105 / 105 105 / 105 ML @ 105 mls/hr IV.SIG Q12H [facility] Rx#:[id number] NS Inj 1,000 ML @ 100 mls/hr IV 1000 / 1000 .SIG .Q10H [facility] Rx#:[id number] Keppra Inj 1,500 MG In NS Inj 115 / 115 115 / 115 115 / 115 100 ML @ 400 mls/hr IV.SIG Q12H [facility] Rx#:[id number] Oral 60 / 60 Output: Urine 2750 / 2750 525 / 525 Other: Date of Last Bowel Movement 06/28/18 # Incontinent Bowel Movements 1 1 Narrative: Awake nonverbal but attempting to mouth words not consistently following commands stable right side weakness, moving left side purposefully - Urinary Catheter Management Female External Cath placed during this visit: yes Reason for continuing: Acute urinary retention Insertion date: 06/24/18 Insertion time: 14:45 Indwelling Urethral Catheter Cath placed during this visit: yes, but has since been removed by the nurse Reason for continuing: Decision to DC catheter Insertion date: 06/05/18 Insertion time: 08:30 Removal date: 06/16/18 Removal time: 21:51 <Samanta Banda - Last Filed: 07/03/18 10:29> Assessment and Plan - Attending Attestation I have personally seen and examined the patient, reviewed pertinent labs and imaging studies with the Neurosurgery team. I agree with Ms. Banda's ( Neurosurgery PA), assessment as well as plan of care. <Duke Palacios - Last Filed: 07/02/18 23:03> - Plan 78 yo female with vague constellation of symptoms GCS-[address] shows 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 hemorrhagic mass Will follow with you 05/30/18: cont neuro checks in ICU Dr. 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 at midnight on Monday night into Monday Minimize sedating meds, etc. 06/03/18: Appears to be a bit more encephalopathic today, possible contribution of hospital delirium versus her mild hydrocephalus, though favor delirium since her level of alertness remains stable Dr. 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 at midnight tonight Continue to minimize sedating meds, etc. 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 Palacios 06/06/18: POD #1. pt had seizure last night requiring intubation. She has been started on Keppra for seizures. On exam she opens eyes and follows commands. Postoperative MRI Brain w/wo contrast has been ordered and pending. Obtain EEG to assess seizures. Continue ventriculostomy draining, add ICP monitoring. Start sq lovenox for dvt prophylaxis. Will follow. 06/07/18: POD #2. patient neurologically stable, opens eyes and follows commands. Postoperative MRI Brain reviewed by neurosurgery team. Spot EEG reports no ongoing seizures, with high amplitude sharp waves on left?breach rhythm. Critical care plans on extubation today. Continue ventriculostomy draining at 10 mmHg. Final pathology pending. Neurology following for seizure management. Will follow. 06/08/18: POD #3. patient neurologically stable, opens eyes and follows commands. Ventriculostomy draining well with controlled ICPs, will continue at 10mmHg. Pathology still pending. cont seizure management per Neurology. dw critical care. will follow. 06/09/2018 POD#4 Remains Neurologically stable, follows commands Stop sedation wean ventilator to CPAP 5 x 12 and FiO2 30% Continue DuoNeb nebs 4 times daily. Check respiratory parameters and consider extubation Agree with Symbicort 160 about 4.5 mcg 1 puff twice daily and Solu-Medrol 40 mg IV twice daily Continue EVD Would maintain SBP 140-160 to improve CPP. 06/10/2018 POD#5 Seizure yesterday, and last night, have increased Cerebyx and Keppra D/C'ed Barbs would prefer to maintain on 2 agents and high therapeutic levels of Cerebyx, usually best with brain tumors Free Dilantin levels not easily obtainable here. Lets keep level around 20 with standard level remains Neurologically stable wean ventilator to CPAP 5 x 12 and FiO2 30% and if OK, may extubate from Neurosurgical standpoint. 06/11/18 POD #6 seizures controlled overnight, will continue Cerebyx 200 tid and Keppra 1500 bid. Dilantin levels 17.6 today continue critical care - vent weaning - CPAP trials cont EVD draining at 5 mmHg final pathology still pending will follow 06/12/18 POD #7 pt failed extubation yesterday, reintubated- critical care managing repeat EEG 06/11/18 abnormal with sharp activities left hemisphere dilantin levels 18.8 this morning cont current anticonvulsants, will repeat EEG today obtained follow up CT Brain this morning which was reviewed by Dr. Perdue, EVD raised to 15 mmHg neuro exam today appears better final pathology still pending 06/13/18 POD #8 neurologically she is awake, alert EEG yesterday 06/12/18 - mod encephalopathy, no reports of any seizure activities cont current anticonvulsants, Dilantin levels trending up pending today, started on Zosyn for gram neg rods in sputum - per critical care cont EVD challenge, cont at 15 mmHg today, plan to clamp tomorrow will follow 06/14/18 POD #9 neurologically remains awake and alert Ventriculostomy drain clamped today, follow up CT Head tomorrow am will follow 06/15/18: POD #10 neuro exam with no changes, f/u CT Head post EVD clamping reviewed by neurosurgery team, ventriculostomy drain removed, using sterile technique single stitch place, patient tolerated procedure well cont critical care management seizures controlled, continue current anticonvulsants FINAL PATHOLOGY: LOW GRADE NEOPLASM, MOST CONSISTENT WITH PILOCYTIC ASTROCYTOMA ; 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 current management Discussed Path with patient's son 06/17/2018 POD#12 Neuro: no sig. changes seizures controlled aggressive CPAP trials today DPH level 5.5 Bolused with 500 mgs. cont. ICU 06/18/2018 no neurological changes continue CPAP trials, vent wean to extubate remove surgical mamadou Dr. 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 Snell - continue CPAP, ?extubate pulmonology also following 06/20/2018 patient extubated, neuro exam unchanged, stable reconsult medical oncology for reeval for poss chemotherapy for pilocytic astrocytoma radiation oncology eval pending will follow 06/21/2018 neuro exam relatively stable, she waxes and wanes- dw nursing she is stable from NRS standpoint for a step down unit, radiation oncology for work up outpatient and potential xrt appreciate oncology reeval: there is no chemotherapy to offer for the low grade astrocytoma 06/22/2018 continue physical, occupation, and speech therapy increase activity, OOB to chair cont present care will follow 06/23/2018 continue physical, occupation, and speech therapy increase activity, OOB to chair cont present care will follow 06/24/2018 continue physical, occupation, and speech therapy increase activity, OOB to chair cont present care appears to be gradually improving. will follow 06/25/2018 increase activity, OOB to chair PT/OT/ST Rehab Consult cont present care slowly improving. will continue to follow 06/26/2018 OOB to chair TID PT/OT/ST ready for transfer to Rehab from Neurosurgical standpoint cont present care slowly improving. will continue to follow 06/27/2018 Remains Neurologically stable Head CT reviewed Showing slow but continued improvement OOB to chair TID PT/OT/ST ready for transfer to Rehab from Neurosurgical standpoint head MRI w/o PÉREZ to assess hydrocephalus, unclear as to why she is unable to phonate. Patient has a low grade glioma, will not require chemo or radiation. These are biologically not aggressive. Will require subacute rehab/nursing facility cont present care will continue to follow 06/28/2018 POD #23 neuro stable follow up head MRI reviewed by neurosurgery team, consult placed to ENT specialist for laryngoscopy of vocal cords due to loss of voice continue physical, occupational, and speech therapy will follow 06/29/2018 POD #24 remains neurologically stable evaluation by ENT specialist pending continue with therapy and rehab efforts will follow 06/30/2018 POD #25 remains neurologically stable evaluation by ENT specialist pending would like evaluation of vocal cords continue with therapy and rehab efforts [facility] will continue to follow 07/01/2018 POD #26 Slow but continued improvement neurologically evaluation by ENT specialist pending would like evaluation of vocal cords and phonation continue with therapy and rehab efforts [facility] ( OK to transfer from Neurosurgical standpoint when bed available. May start XRT this week. will continue to follow 07/02/2018 POD #27 ENT evaluation reviewed which was in the patient's physical chart - recommend follow up outpatient - will resolve on its own continue with therapy, PT, OT, ST continue with rehab efforts start XRT this week - follow up with radiation oncology will sign off, please call prn <Samanta Banda - Last Filed: 07/03/18 10:29>
--- NOTE | 2018-07-02 15:54 | P.PNIM ---
Subjective Interval history: Follow-up for hemorrhagic intracranial mass status post surgical resection, lung mass. Patient is doing well. Sitting in her chair today. More alert. Speaks a few words. is at bedside. Physical Exam Vital signs: Vital Signs 07/01/18 16:00 07/01/18 20:30 07/02/18 00:05 Temperature 98 F 98.5 F 98.8 F Pulse Rate 96 H 109 H 103 H Respiratory Rate 20 18 18 Blood Pressure 171/71 H 167/77 H 149/67 H Pulse Oximetry 99 94 L 94 L 07/02/18 05:00 07/02/18 07:20 07/02/18 08:22 Temperature 98.4 F 98.4 F Pulse Rate 93 H 96 H Respiratory Rate 18 20 18 Blood Pressure 168/74 H 160/69 H Pulse Oximetry 93 L 93 L 07/02/18 11:40 07/02/18 12:00 07/02/18 15:47 Temperature 98.1 F Pulse Rate 85 73 Respiratory Rate 20 18 Blood Pressure 118/57 L Pulse Oximetry 92 L Intake & Output 07/01/18 07/02/18 07/02/18 18:59 06:59 18:59 Intake Total 1169 / 1169 388 / 388 274 / 274 Output Total 2750 / 2750 525 / 525 Balance 1169 / 1169 -2362 / -2362 -251 / -251 Weight 62.5 kg Intake: IV 1169 / 1169 328 / 328 274 / 274 Cerebyx Inj 200 MGPE In NS Inj 54 / 54 108 / 108 54 / 54 50 ML @ 216 mls/hr IV.SIG Q8HR [facility] Rx#:[id number] Vimpat Inj 50 MG In NS Inj 100 105 / 105 105 / 105 ML @ 105 mls/hr IV.SIG Q12H [facility] Rx#:[id number] NS Inj 1,000 ML @ 100 mls/hr IV 1000 / 1000 .SIG .Q10H [facility] Rx#:[id number] Keppra Inj 1,500 MG In NS Inj 115 / 115 115 / 115 115 / 115 100 ML @ 400 mls/hr IV.SIG Q12H [facility] Rx#:[id number] Oral 60 / 60 Output: Urine 2750 / 2750 525 / 525 Other: Date of Last Bowel Movement 06/28/18 # Incontinent Bowel Movements 1 1 Narrative: GENERAL: Alert, NAD. SKIN: Warm and dry. HEAD: S/p craniotomy. EYES: No scleral icterus. No injection or drainage. NECK: Supple, trachea midline. No JVD or lymphadenopathy. CARDIOVASCULAR: Regular rate and rhythm without murmurs, gallops, or rubs. RESPIRATORY: Breath sounds equal bilaterally. No accessory muscle use. GASTROINTESTINAL: Abdomen soft, non-tender, nondistended. MUSCULOSKELETAL: No cyanosis, or edema. BACK: Nontender without obvious deformity. No CVA tenderness. Urinary Catheter Management Female External: Cath placed during this visit: yes Reason for continuing: Acute urinary retention Insertion date: 06/24/18 Insertion time: 14:45 Indwelling Urethral Catheter: Cath placed during this visit: yes, but has since been removed by the nurse Reason for continuing: Decision to DC catheter Insertion date: 06/05/18 Insertion time: 08:30 Removal date: 06/16/18 Removal time: 21:51 Results Labs CBC & Chem 7: 06/22/18 04:28 06/29/18 06:55 Assessment and Plan Plan 78-year-old white female was transferred from [facility] with 1 week history of memory loss hallucination and found to have subacute anterior ventricular hemorrhage and 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 Kapadia review case recommended no chemo and refer to radiation oncology. Per oncology, Dr. Kapadia likely metastatic disease as patient does have CT chest showed right upper lung nodule or primary lung malignancy along with CT of the abdomen pelvis revealed 1.3 cm left adrenal mass, liver mass Hemorrhagic intraventricular mass -astrocytoma - with asymmetric left sided ventricular dilatation with right Hemiplegia Status post left craniotomy for resection of tumor 06/05 -astrocytoma Acute encephalopathy Delirium Seizure -Status post left craniotomy resection of tumor 06/05/2018 -Oncology consult -- states no chemo at this time. -Dr. Clemons has been consulted and recommends outpatient follow-up for radiation treatment -EEG originally negative for seizures -Repeat EEG 06/06 field possible left frontal breakthrough. -MRA 06/06 brain revealed left lateral ventricle resection, intervertebral hemorrhage slightly decreased. Small subdural hematoma. Rightward shift 5 mm. -Currently on fosphenytoin 200 mg every 8 hours. -On levetiracetam 1500 mg IV twice daily. -Continue lacosamide 50 mg twice daily per neurosurgery Acute hypoxic and hypercarbic respiratory failure-now extubated and on nasal cannula 2 L oxygen Previous tobacco use Right upper lobe mass HCAP ventilator associated pneumonia -Pulmonology consulted for right upper lobe mass concerning for primary malignancy, with adrenal mass -Pulmonary Dr. Evans suggesting CT-guided biopsy and PET scan once clinically more stable -Probable CT guided lung biopsy on 07/03/2018. Hypertensive emergency History of hypertension Peripheral arterial disease -Continue home enalapril 40 mg daily and amlodipine 5 mg daily increased to 10 mg daily, continue pravastatin 40 mg daily. metoprolol tartrate 50 mg twice daily Left adrenal mass 1.3 x 1.2 cm Colonic diverticulosis Right liver mass versus cyst Elevated LFTs Acute urinary retention - placed song 06/24- d/w staff- document output- got 1725 cc - keep song- song care protocol - change q 30 days - consider voiding trial in the future - NS reduce rate at 75cc/hour. Full code. Lovenox. Discharge plan: Probable Lung mass bx tomorrow. David to re-evaluate patient for in-patient rehab. Progress Note: Quality VTE Deep Vein Thrombosis/Pulmonary Embolism Present on Admission: No
[2018-07-03] MEDS: Sod Chloride 0.9% Inj 1,000 ML IV.SIG SCH ×2 (02:00→11:39)
[2018-07-03] MEDS: Lacosamide Inj 50 MG in Sodium Chlor 0.9% Inj 100 ML IV.SIG SCH ×3 (06:22→17:24)
[2018-07-03] MEDS: Artificial Tears Opth Drops 15 ML Bottle EACH EYE SCH ×3 (06:26→22:51)
[2018-07-03] MEDS: Fosphenytoin Inj 200 MGPE in Sodium Chlor 0.9% Inj 50 ML IV.SIG SCH ×4 (06:27→22:47)
--- NOTE | 2018-07-03 08:37 | P.PNIM ---
Subjective Interval history: RHINA patient does not speak much only shakes head yes and no occaisonally spoke to me no complaints awaiting coags to be drawn to get CT biopsy today Physical Exam Vital signs: Vital Signs 07/02/18 11:40 07/02/18 12:00 07/02/18 15:47 Temperature 98.1 F Pulse Rate 85 73 Respiratory Rate 20 18 Blood Pressure 118/57 L Pulse Oximetry 92 L 07/02/18 16:40 07/02/18 21:02 07/03/18 00:26 Temperature 98.3 F 98.5 F 97.7 F Pulse Rate 75 89 92 H Respiratory Rate 20 18 18 Blood Pressure 125/61 139/66 168/72 H Pulse Oximetry 94 L 93 L 94 L 07/03/18 04:52 Temperature 98.0 F Pulse Rate 71 Respiratory Rate 18 Blood Pressure 144/66 H Pulse Oximetry 95 Intake & Output 07/02/18 07/03/18 07/03/18 18:59 06:59 18:59 Intake Total 1379 / 1379 1169 / 1169 Output Total 975 / 975 1045 / 1045 Balance 404 / 404 1169 / 1169 -1045 / -1045 Weight 58.1 kg Intake: IV 1379 / 1379 1169 / 1169 Cerebyx Inj 200 MGPE In NS Inj 54 / 54 54 / 54 50 ML @ 216 mls/hr IV.SIG Q8HR [facility] Rx#:[id number] Vimpat Inj 50 MG In NS Inj 100 210 / 210 ML @ 105 mls/hr IV.SIG Q12H [facility] Rx#:[id number] NS Inj 1,000 ML @ 75 mls/hr IV. 1000 / 1000 1000 / 1000 SIG .[id number] [facility] Rx#:[id number] Keppra Inj 1,500 MG In NS Inj 115 / 115 115 / 115 100 ML @ 400 mls/hr IV.SIG Q12H [facility] Rx#:[id number] Output: Urine 975 / 975 1045 / 1045 Other: # Incontinent Bowel Movements 1 Constitutional no acute distress Routine HEENT Exam Head: Present normocephalic and atraumatic Routine Respiratory Exam Present CTA bilaterally Routine Cardiovascular Exam Present RRR, S1 and S2 Routine Abdominal Exam Present soft and normoactive bowel sounds Routine Extremities Exam Absent edema and calf tenderness Routine Skin Exam Present intact Routine Neurological Exam blunted affect Urinary Catheter Management Female External: Cath placed during this visit: yes Reason for continuing: Acute urinary retention Insertion date: 06/24/18 Insertion time: 14:45 Indwelling Urethral Catheter: Cath placed during this visit: yes, but has since been removed by the nurse Reason for continuing: Decision to DC catheter Insertion date: 06/05/18 Insertion time: 08:30 Removal date: 06/16/18 Removal time: 21:51 Results Labs CBC & Chem 7: 06/22/18 04:28 06/29/18 06:55 Assessment and Plan Plan 78-year-old white female was transferred from [facility] with 1 week history of memory loss hallucination and 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 Patient seen by neurosurgery and oncologist Dr. Kapadia (recommended no chemo and refer to radiation oncology). CT chest showed right upper lung nodule or primary lung malignancy along with CT of the abdomen pelvis revealed 1.3 cm left adrenal mass, liver mass. 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 -Dr. Clemons has been consulted and recommends outpatient follow-up for radiation treatment -EEG originally negative for seizures -Repeat EEG 06/06 field possible left frontal breakthrough. -MRA 06/06 brain revealed left lateral ventricle resection, intervertebral hemorrhage slightly decreased. Small subdural hematoma. Rightward shift 5 mm. -Currently on fosphenytoin 200 mg every 8 hours. -On levetiracetam 1500 mg IV twice daily. -Continue lacosamide 50 mg twice daily per neurosurgery - prior to d/c will discuss steroid dosing for outpatient. currently on dexa 4mg IV q8hrs. tapering assistance and duration would be appreciated Acute hypoxic and hypercarbic respiratory failure-now extubated and on nasal cannula 2 L oxygen Previous tobacco use Right upper lobe mass HCAP ventilator associated pneumonia -Pulmonology consulted for right upper lobe mass concerning for primary malignancy, with adrenal mass -Pulmonary Dr. Evans following -CT guided lung biopsy on 07/03/2018. Hypertensive emergency History of hypertension Peripheral arterial disease -Continue home enalapril 40 mg daily and amlodipine 10 mg daily, continue pravastatin 40 mg daily. 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 dvt ppx: Lovenox. Discharge plan: [facility] to re-evaluate patient for in-patient rehab. Progress Note: Quality VTE Deep Vein Thrombosis/Pulmonary Embolism Present on Admission: No
[2018-07-03] MEDS: Senna/Docusate Sodium 8.6/50 MG Tablet PO SCH ×2 (09:37→20:49)
[2018-07-03] MEDS: Enoxaparin Inj 40 MG/0.4 ML Syringe SQ SCH (09:37)
[2018-07-03] MEDS: Sodium Chloride 1 GM Tablet PO SCH ×2 (09:37→22:51)
[2018-07-03] MEDS: amLODIPine 5 MG Tablet PO SCH (09:40)
[2018-07-03] MEDS: Metoprolol Tartrate 50 MG Tablet PO SCH ×2 (09:41→22:50)
[2018-07-03] MEDS: Lisinopril 20 MG Tablet PO SCH (09:41)
[2018-07-03] MEDS: Budesonide-Formoterol 160/4.5 MCG 6 GM Inhaler INH SCH ×2 (09:43→22:51)
[2018-07-03] MEDS: levETIRAcetam Inj 1,500 MG in Sodium Chlor 0.9% Inj 100 ML IV.SIG SCH ×2 (10:55→23:30)
--- NOTE | 2018-07-03 12:37 | P.PN ---
Subjective Interval history: We will go for CT needle biopsy today of lung lesion. Stable on room air and has no cough or wheezing. Responds to some commands. Physical Exam Vital signs: Vital Signs 07/02/18 15:47 07/02/18 16:40 07/02/18 21:02 Temperature 98.3 F 98.5 F Pulse Rate 75 89 Respiratory Rate 18 20 18 Blood Pressure 125/61 139/66 Pulse Oximetry 94 L 93 L 07/03/18 00:26 07/03/18 04:52 07/03/18 08:20 Temperature 97.7 F 98.0 F 97.9 F Pulse Rate 92 H 71 78 Respiratory Rate 18 18 16 Blood Pressure 168/72 H 144/66 H 154/66 H Pulse Oximetry 94 L 95 93 L 07/03/18 09:28 07/03/18 11:50 Temperature 98.3 F Pulse Rate 72 Respiratory Rate 16 18 Blood Pressure 123/60 Pulse Oximetry 92 L Intake & Output 07/02/18 07/03/18 07/03/18 18:59 06:59 18:59 Intake Total 1379 / 1379 1223 / 1223 115 / 115 Output Total 975 / 975 1045 / 1045 Balance 404 / 404 1223 / 1223 -930 / -930 Weight 58.1 kg Intake: IV 1379 / 1379 1223 / 1223 115 / 115 Cerebyx Inj 200 MGPE In NS Inj 54 / 54 108 / 108 50 ML @ 216 mls/hr IV.SIG Q8HR [facility] Rx#:[id number] Vimpat Inj 50 MG In NS Inj 100 210 / 210 ML @ 105 mls/hr IV.SIG Q12H [facility] Rx#:[id number] NS Inj 1,000 ML @ 75 mls/hr IV. 1000 / 1000 1000 / 1000 SIG .[id number] ALEX[facility] Rx#:[id number] Keppra Inj 1,500 MG In NS Inj 115 / 115 115 / 115 115 / 115 100 ML @ 400 mls/hr IV.SIG Q12H ALEXIS Rx#:[id number] Output: Urine 975 / 975 1045 / 1045 Other: # Incontinent Bowel Movements 1 Narrative: Awake nonverbal but attempting to mouth words not consistently following commands stable right side weakness, moving left side purposefully GENERAL: Elderly lady alert and in no distress SKIN: Warm and dry. HEAD: Atraumatic. Normocephalic. EYES: Pupils equal and round. No scleral icterus. No injection or drainage. ENT: No nasal bleeding or discharge. Mucous membranes pink and moist. NECK: Trachea midline. No JVD. CARDIOVASCULAR: Regular rate and rhythm. RESPIRATORY: No accessory muscle use. Occasional wheezes upper chest . Breath sounds equal bilaterally. GASTROINTESTINAL: Abdomen soft, non-tender, nondistended. Hepatic and splenic margins not palpable. MUSCULOSKELETAL: Extremities without clubbing, cyanosis, or edema. No obvious deformities. NEUROLOGICAL: Awake and alert. Has some weakness of the right side PSYCHIATRIC: cannot assess - Urinary Catheter Management Female External Cath placed during this visit: yes Reason for continuing: Acute urinary retention Insertion date: 06/24/18 Insertion time: 14:45 Indwelling Urethral Catheter Cath placed during this visit: yes, but has since been removed by the nurse Reason for continuing: Decision to DC catheter Insertion date: 06/05/18 Insertion time: 08:30 Removal date: 06/16/18 Removal time: 21:51 Results - Labs CBC & Chem 7: 06/22/18 04:28 06/29/18 06:55 Assessment and Plan - Assessment (1) COPD (chronic obstructive pulmonary disease) Code(s): J44.9 - Chronic obstructive pulmonary disease, unspecified Status: Acute (2) Right upper lobe pulmonary nodule Code(s): R91.1 - Solitary pulmonary nodule Status: Acute (3) Intraventricular hemorrhage, nontraumatic Code(s): I61.5 - Nontraumatic intracerebral hemorrhage, intraventricular Status: Acute (4) Hypertensive emergency Code(s): I16.1 - Hypertensive emergency Status: Acute (5) Metabolic encephalopathy Code(s): G93.41 - Metabolic encephalopathy Status: Acute (6) Altered mental status Code(s): R41.82 - Altered mental status, unspecified Status: Acute (7) History of peripheral arterial disease Code(s): Z86.79 - Personal history of other diseases of the circulatory system Status: Chronic (8) History of hypertension Code(s): Z86.79 - Personal history of other diseases of the circulatory system Status: Chronic (9) Cessation of tobacco use in previous 12 months Code(s): Z87.891 - Personal history of nicotine dependence Status: Chronic - Plan 1 DC O2 2. Continue DuoNeb nebs 3 times daily. 3. Incentive spirometry [address]-guided needle biopsy of lung mass . 5. Continue physical therapy 6 Symbicort 160 about 4.5 mcg 1 puff twice daily 7. Chest x-ray in a.m. (6) Altered mental status Qualifiers: Altered mental status type: unspecified Qualified Code(s): R41.82 - Altered mental status, unspecified
[2018-07-03 13:28] LABS: INR 1.1 Ratio; Prothrombin Time 10.7 sec (9.8-11.6)
[2018-07-03] MEDS ORDERED: fentaNYL Citrate Inj 100 MCG/2 ML Ampul ONE (14:26)
--- NOTE | 2018-07-03 14:29 | P.DIET ---
Nutritional Evaluation Type of nutrition evaluation: follow-up Nutrition consult regarding: Diet Evaluation (TFing d/c'ed 06/21) Subjective Subjective Comments: Usually eating 75% Objective - Diagnosis Brain Bleed - Objective [place] body weight: 68 kg % IBW: 90 (IBW = 150#) Body Weight Used for Calculations: Actual (60) Energy Needs - Lower Range (kCal/kg): 28 Energy Needs - Upper Range (kCal/kg): 32 Lower Limit kCal/kg (kCals): 1,680 Upper Limit kCal/kg (kCals): 1,920 Lower Limit Protein Factor (Grams per Kg): 1.2 Upper Limit Protein Factor (Grams per Kg): 1.6 Lower Protein Needs (Protein): 70 Upper Protein Needs (Protein): 96 Dietitian Reviewed in Medical Record: Current diet, Curent medications, Intake & Output, Labs, Medical history, Tube feeding Diet Order: pureed, card, honey thick liquids Oral Diet Intake Amount: Fair 50-75% Speech Therapy Recommendations: Yes (pureed, honey thick liquids) Assessment Assessment: TFing was stopped on 06/21. Diet is advanced and the pt has good intake. Will continue Ensure Enlive with lunch and dinner. Labs, wts and clinical curse reviewed: CBW = 58.1 kg. Recommendations: Diet texture per ST D/C Cardiac diet restriction Continue Ensure Enlive bid Dietitian to Monitor: Lab values, Supplement acceptance, Intake & Output, Diet tolerance, Weight change, PO Intake, Diet advancement, Medical course
--- NOTE | 2018-07-03 15:43 | XR ---
EXAM DATE: 07/03/2018 3:39 PM EST AGE/SEX: 78 years / Female INDICATIONS: Post right lung biopsy. CLINICAL DATA: This is the patient's initial encounter. Patient reports that signs and symptoms have been present for 1 day and indicates a pain score of 3/10. MEDICAL/SURGICAL HISTORY: . Cardiovascular disease. Hypertension. hemorrhagic brain mass. None . COMPARISON: [facility] [place], CT CHEST W CONTRAST, 05/30/2018. [facility] [place], CT BIOPSY LUNG RIGHT, 07/03/2018. . FINDINGS: The vague nodular mass is again seen in the right mid lung. No pneumothorax. No acute infiltrate or p leural effusion demonstrated. CONCLUSION: No pneumothorax or other acute complication after biopsy of a right mid lung mass. Electronically signed by: Kaiser Regan MD Board Certified Radiologist 07/03/2018 3:42 PM EST
--- NOTE | 2018-07-03 16:53 | P.RAD ---
Post Procedure Progress Note - Pre Procedure Diagnosis (1) Right upper lobe pulmonary nodule - Post Procedure Diagnosis (1) Right upper lobe pulmonary nodule - Procedure Information Procedure Date: 07/03/18 Supervising Radiologist: Daren Guerra MD Anesthesia: Conscious Sedation - Plan of Activity Patient to Unit: Nursing Unit Patient Condition: Good See PACS Report for procedural detail/treatment. Biopsy CT right Lung Specimen: Core Biopsy
--- NOTE | 2018-07-03 17:00 | CT ---
EXAM DATE: 07/03/2018 3:17 PM EST AGE/SEX: 78 years / Female INDICATIONS: Right lung biopsy. CLINICAL DATA: This is the patient's initial encounter. Patient reports that signs and symptoms have been present for 1 day and indicates a pain score of 0/10. MEDICAL/SURGICAL HISTORY: Hypertension. Chronic obstructive pulmonary disease. brain mass, kathy g mass Craniotomy. COMPARISON: [facility] [place], [place] CHEST W CONTRAST, 05/30/2018. . BIOPSY SITE: Right lung MEDICATION(S): 0.5mg midazolam (Versed) IV 25mcg fentanyl (Sublimaze) IV DEVICE(S): 20 gauge Temno core biopsy needle Three core specimen(s) sent to the laboratory for pathologic evaluation. . . PROCEDURE: CT guided Right lung biopsy Conscious sedation with continuous EKG and oximetry monitoring. Prior to the procedure informed consent was obtained. Any appropriate prior imaging studies were rev iewed. Using automated exposure control and adjustment of the mA and/or kV according to patient size , radiation dose was kept as low as reasonably achievable to obtain optimal diagnostic quality images . DICOM format image data is available electronically for review and comparison. The site was prepped in a sterile fashion. Full sterile technique was used, including cap, mask, blair rile gloves and gown and a large sterile sheet. Hand hygiene and 2% chlorhexidine and/or betadine/al cohol prep was utilized per protocol for cutaneous antisepsis. The skin and subcutaneous tissues wer e infiltrated with local anesthetic solution. With CT guidance the previously identified target was localized. Biopsy was performed using the presc ribed needle as above. Adequate hemostasis was obtained with compression at the puncture site. Follow-up CT scan reveals no pneumothorax. Conscious sedation was performed with the prescribed dosages and duration as above in the presence of an independent trained radiology nurse to assist in the monitoring of the patient. EKG and oximetry remained stable throughout the procedure. The patient tolerated the procedure well and there were no complications. The patient was sent to Radiology Outpatient Unit in stable condition. CONCLUSION: 1. Uncomplicated CT guided biopsy. Electronically signed by: Daren Guerra MD Board Certified Radiologist 07/03/2018 4:59 PM EST
--- NOTE | 2018-07-03 18:43 | XR ---
EXAM DATE: 07/03/2018 6:29 PM EST AGE/SEX: 78 years / Female INDICATIONS: Evaluate for pneumothorax. Post lung biopsy. CLINICAL DATA: This is the patient's subsequent encounter. Patient reports that signs and symptoms h ave been present for 1 day and indicates a pain score of Nonresponsive. MEDICAL/SURGICAL HISTORY: . Hypertension. Chronic obstructive pulmonary disease. Brain mass, kelvin ng mass. Craniotomy. . COMPARISON: [facility] [place], CHEST EXPIRATION ONLY, 07/03/2018. [facility] [place], CT BIOPSY LUNG RIGHT, 07/03/2018. . FINDINGS: A single frontal expiratory view of the chest was performed. Nodule right upper lobe. Small pleural e ffusions and left basilar density. No evidence of pneumothorax. Mediastinal structures are in the m idline. CONCLUSION: No pneumothorax on the right. Electronically signed by: Brock Pineda MD Board Certified Radiologist 07/03/2018 6:42 PM EST
[2018-07-04] MEDS: Fosphenytoin Inj 200 MGPE in Sodium Chlor 0.9% Inj 50 ML IV.SIG SCH ×3 (06:02→23:15)
[2018-07-04] MEDS: Artificial Tears Opth Drops 15 ML Bottle EACH EYE SCH ×3 (06:02→23:02)
[2018-07-04] MEDS: Lacosamide Inj 50 MG in Sodium Chlor 0.9% Inj 100 ML IV.SIG SCH ×2 (06:40→18:21)
[2018-07-04 08:13] LABS: Hematocrit 35.3 % (35.0-46.0); Mean Corpuscular Hemoglobin 34.7 pg (27.0-34.0); Mean Corpuscular Volume 102.2 fL (80.0-100.0); Mean Platelet Volume 7.8 fL (7.0-11.0); Red Blood Count 3.46 mil/mm3 (4.00-5.30); White Blood Count 8.6 th/mm3 (4.0-11.0)
[2018-07-04 08:24] LABS: Anion Gap 6 meq/L (5-15); Blood Urea Nitrogen 6 mg/dL (7-18); Calcium 8.3 mg/dL (8.5-10.1); Carbon Dioxide 29.6 meq/L (21.0-32.0); Chloride 104 meq/L (98-107); Glomerular Filtration Rate Greater Than 89 mL/min (>89); Glucose,Random 100 mg/dL (74-106); Potassium 3.7 meq/L (3.5-5.1); Sodium 140 meq/L (136-145)
[2018-07-04 08:49] LABS: Platelet Count 221 th/mm3 (150-450)
[2018-07-04] MEDS: Sodium Chloride 1 GM Tablet PO SCH ×2 (09:54→22:57)
[2018-07-04] MEDS: Lisinopril 20 MG Tablet PO SCH (09:54)
[2018-07-04] MEDS: Metoprolol Tartrate 50 MG Tablet PO SCH ×2 (09:54→22:57)
[2018-07-04] MEDS: amLODIPine 5 MG Tablet PO SCH (09:54)
[2018-07-04] MEDS: Senna/Docusate Sodium 8.6/50 MG Tablet PO SCH ×2 (09:54→23:01)
[2018-07-04] MEDS: Budesonide-Formoterol 160/4.5 MCG 6 GM Inhaler INH SCH ×2 (09:55→23:01)
[2018-07-04] MEDS: Enoxaparin Inj 40 MG/0.4 ML Syringe SQ SCH (09:55)
[2018-07-04] MEDS: levETIRAcetam Inj 1,500 MG in Sodium Chlor 0.9% Inj 100 ML IV.SIG SCH ×2 (11:22→23:12)
--- NOTE | 2018-07-04 13:48 | P.PN ---
Subjective Interval history: She is awake and taking p.o. liquids well. Had CT-guided needle biopsy of lung nodule yesterday. Off O2 sat 95. No shortness of breath at rest. Physical Exam Vital signs: Vital Signs 07/03/18 15:10 07/03/18 15:40 07/03/18 15:55 Temperature 98.3 F Pulse Rate 92 H 83 84 Respiratory Rate 18 16 16 Blood Pressure 145/70 H 152/72 H 153/63 H Pulse Oximetry 92 L 96 98 07/03/18 17:18 07/03/18 17:38 07/03/18 18:36 Temperature 97.8 F Pulse Rate 81 84 87 Respiratory Rate 18 18 18 Blood Pressure 141/64 H 168/74 H 176/72 H Pulse Oximetry 97 100 100 07/03/18 19:08 07/03/18 20:08 07/03/18 21:06 Temperature 98.1 F 97.6 F 98.3 F Pulse Rate 85 85 80 Respiratory Rate 18 18 18 Blood Pressure 165/81 H 164/71 H 167/72 H Pulse Oximetry 100 100 100 07/03/18 23:42 07/04/18 05:02 07/04/18 07:32 Temperature 98.5 F 98.0 F 97.9 F Pulse Rate 91 H 62 79 Respiratory Rate 18 18 18 Blood Pressure 163/72 H 139/64 158/71 H Pulse Oximetry 98 97 93 L 07/04/18 10:18 07/04/18 13:11 Temperature 97.6 F Pulse Rate 76 Respiratory Rate 20 Blood Pressure 106/54 L Pulse Oximetry 99 98 Intake & Output 07/03/18 07/04/18 07/04/18 18:59 06:59 18:59 Intake Total 874 / 874 373 / 373 105 / 105 Output Total 2745 / 2745 1200 / 1200 800 / 800 Balance -1871 / -1871 -827 / -827 -695 / -695 Weight 58.1 kg 57.9 kg Intake: IV 874 / 874 223 / 223 105 / 105 Cerebyx Inj 200 MGPE In NS Inj 54 / 54 108 / 108 50 ML @ 216 mls/hr IV.SIG Q8HR [facility] Rx#:[id number] Vimpat Inj 50 MG In NS Inj 100 105 / 105 105 / 105 ML @ 105 mls/hr IV.SIG Q12H [facility] Rx#:[id number] NS Inj 1,000 ML @ 75 mls/hr IV. 600 / 600 SIG .[id number] [facility] Rx#:[id number] Keppra Inj 1,500 MG In NS Inj 115 / 115 115 / 115 100 ML @ 400 mls/hr IV.SIG Q12H [facility] Rx#:[id number] Oral 150 / 150 Output: Urine 2745 / 2745 1200 / 1200 800 / 800 Narrative: Awake nonverbal but attempting to mouth words stable right side weakness, moving left side purposefully GENERAL: Elderly lady alert and in no distress SKIN: Warm and dry. HEAD: Atraumatic. Normocephalic. EYES: Pupils equal and round. No scleral icterus. No injection or drainage. ENT: No nasal bleeding or discharge. Mucous membranes pink and moist. NECK: Trachea midline. No JVD. CARDIOVASCULAR: Regular rate and rhythm. RESPIRATORY: No accessory muscle use. Occasional wheezes upper chest . Breath sounds equal bilaterally. GASTROINTESTINAL: Abdomen soft, non-tender, nondistended. Hepatic and splenic margins not palpable. MUSCULOSKELETAL: Extremities without clubbing, cyanosis, or edema. No obvious deformities. NEUROLOGICAL: Awake and alert. Has some weakness of the right side PSYCHIATRIC: cannot assess - Urinary Catheter Management Female External Cath placed during this visit: yes Reason for continuing: Acute urinary retention Insertion date: 06/24/18 Insertion time: 14:45 Indwelling Urethral Catheter Cath placed during this visit: yes, but has since been removed by the nurse Reason for continuing: Decision to DC catheter Insertion date: 06/05/18 Insertion time: 08:30 Removal date: 06/16/18 Removal time: 21:51 Results - Labs CBC & Chem 7: 07/04/18 07:47 07/04/18 07:47 Laboratory Results - last 24 hr 07/04/18 07/04/18 07/04/18 07:47 07:47 07:47 WBC 8.6 RBC 3.46 L Hgb 12.0 Hct 35.3 MCV 102.2 H MCH 34.7 H MCHC 34.0 RDW 16.0 Plt Count 221 D MPV 7.8 Sodium 140 Potassium 3.7 Chloride 104 Carbon Dioxide 29.6 Anion Gap 6 BUN 6 L Creatinine 0.28 L Estimated GFR Greater than 89 Random Glucose 100 Calcium 8.3 L Magnesium 1.9 - Imaging Impressions Lung Biopsy CT 07/03/18 00:00 CONCLUSION: 1. Uncomplicated CT guided biopsy. Chest X-Ray 07/03/18 15:21 CONCLUSION: No pneumothorax or other acute complication after biopsy of a right mid lung mass. Chest X-Ray 07/03/18 16:53 CONCLUSION: No pneumothorax on the right. Assessment and Plan - Assessment (1) COPD (chronic obstructive pulmonary disease) Code(s): J44.9 - Chronic obstructive pulmonary disease, unspecified Status: Acute (2) Right upper lobe pulmonary nodule Code(s): R91.1 - Solitary pulmonary nodule Status: Acute (3) Intraventricular hemorrhage, nontraumatic Code(s): I61.5 - Nontraumatic intracerebral hemorrhage, intraventricular Status: Acute (4) Hypertensive emergency Code(s): I16.1 - Hypertensive emergency Status: Acute (5) Metabolic encephalopathy Code(s): G93.41 - Metabolic encephalopathy Status: Acute (6) Altered mental status Code(s): R41.82 - Altered mental status, unspecified Status: Acute (7) History of peripheral arterial disease Code(s): Z86.79 - Personal history of other diseases of the circulatory system Status: Chronic (8) History of hypertension Code(s): Z86.79 - Personal history of other diseases of the circulatory system Status: Chronic (9) Cessation of tobacco use in previous 12 months Code(s): Z87.891 - Personal history of nicotine dependence Status: Chronic - Plan 1 ambulate with help 2. Continue DuoNeb nebs 3 times daily. 3. Incentive spirometry 4 times daily 4. CBC BMP in a.m. 5. Continue physical therapy 6 Symbicort 160 about 4.5 mcg 1 puff twice daily (6) Altered mental status Qualifiers: Altered mental status type: unspecified Qualified Code(s): R41.82 - Altered mental status, unspecified
--- NOTE | 2018-07-04 14:25 | P.PNIM ---
Subjective Interval history: patient seen on follow up today with at bedside patient again does not speak much to be and occasionally responds but doesnt appear in distress says this is basically baseline s/p lung biopsy yesterday by IR Physical Exam Vital signs: Vital Signs 07/03/18 15:10 07/03/18 15:40 07/03/18 15:55 Temperature 98.3 F Pulse Rate 92 H 83 84 Respiratory Rate 18 16 16 Blood Pressure 145/70 H 152/72 H 153/63 H Pulse Oximetry 92 L 96 98 07/03/18 17:18 07/03/18 17:38 07/03/18 18:36 Temperature 97.8 F Pulse Rate 81 84 87 Respiratory Rate 18 18 18 Blood Pressure 141/64 H 168/74 H 176/72 H Pulse Oximetry 97 100 100 07/03/18 19:08 07/03/18 20:08 07/03/18 21:06 Temperature 98.1 F 97.6 F 98.3 F Pulse Rate 85 85 80 Respiratory Rate 18 18 18 Blood Pressure 165/81 H 164/71 H 167/72 H Pulse Oximetry 100 100 100 07/03/18 23:42 07/04/18 05:02 07/04/18 07:32 Temperature 98.5 F 98.0 F 97.9 F Pulse Rate 91 H 62 79 Respiratory Rate 18 18 18 Blood Pressure 163/72 H 139/64 158/71 H Pulse Oximetry 98 97 93 L 07/04/18 10:18 07/04/18 13:11 Temperature 97.6 F Pulse Rate 76 Respiratory Rate 20 Blood Pressure 106/54 L Pulse Oximetry 99 98 Intake & Output 07/03/18 07/04/18 07/04/18 18:59 06:59 18:59 Intake Total 874 / 874 373 / 373 105 / 105 Output Total 2745 / 2745 1200 / 1200 800 / 800 Balance -1871 / -1871 -827 / -827 -695 / -695 Weight 58.1 kg 57.9 kg Intake: IV 874 / 874 223 / 223 105 / 105 Cerebyx Inj 200 MGPE In NS Inj 54 / 54 108 / 108 50 ML @ 216 mls/hr IV.SIG Q8HR [facility] Rx#:[id number] Vimpat Inj 50 MG In NS Inj 100 105 / 105 105 / 105 ML @ 105 mls/hr IV.SIG Q12H [facility] Rx#:[id number] NS Inj 1,000 ML @ 75 mls/hr IV. 600 / 600 SIG .[id number] [facility] Rx#:[id number] Keppra Inj 1,500 MG In NS Inj 115 / 115 115 / 115 100 ML @ 400 mls/hr IV.SIG Q12H [facility] Rx#:[id number] Oral 150 / 150 Output: Urine 2745 / 2745 1200 / 1200 800 / 800 gen: nad heent: eomi cvs: s1/s2 resp: cta gi: soft, non tender, + bowel sound skin: small 2x2cm bruise on right forearm ext: no edema Urinary Catheter Management Female External: Cath placed during this visit: yes Reason for continuing: Acute urinary retention Insertion date: 06/24/18 Insertion time: 14:45 Indwelling Urethral Catheter: Cath placed during this visit: yes, but has since been removed by the nurse Reason for continuing: Decision to DC catheter Insertion date: 06/05/18 Insertion time: 08:30 Removal date: 06/16/18 Removal time: 21:51 Results Labs CBC & Chem 7: 07/04/18 07:47 07/04/18 07:47 Imaging Imaging: Impressions Lung Biopsy CT 07/03/18 00:00 CONCLUSION: 1. Uncomplicated CT guided biopsy. Chest X-Ray 07/03/18 15:21 CONCLUSION: No pneumothorax or other acute complication after biopsy of a right mid lung mass. Chest X-Ray 07/03/18 16:53 CONCLUSION: No pneumothorax on the right. Assessment and Plan Plan 78-year-old white female was transferred from [facility] with 1 week history of memory loss hallucination and 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 Patient seen by neurosurgery and oncologist Dr. Kapadia (recommended no chemo and refer to radiation oncology). CT chest showed right upper lung nodule or primary lung malignancy along with CT of the abdomen pelvis revealed 1.3 cm left adrenal mass, liver mass. 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 -Dr. Rehman has been consulted and is following -EEG originally negative for seizures -Repeat EEG 06/06 field possible left frontal breakthrough. -MRA 06/06 brain revealed left lateral ventricle resection, intervertebral hemorrhage slightly decreased. Small subdural hematoma. Rightward shift 5 mm. -Currently on fosphenytoin 200 mg every 8 hours. -On levetiracetam 1500 mg IV twice daily. -Continue lacosamide 50 mg twice daily per neurosurgery - prior to d/c will discuss steroid dosing for outpatient. currently on dexa 4mg IV q8hrs. tapering assistance and duration would be appreciated - case discussed with Dr. rehman and their service will follow up in 1-2 week after pathology from lung returns to determine additional recommendation. Acute hypoxic and hypercarbic respiratory failure-now extubated and on nasal cannula 2 L oxygen Previous tobacco use Right upper lobe mass HCAP ventilator associated pneumonia -Pulmonology consulted for right upper lobe mass concerning for primary malignancy, with adrenal mass -Pulmonary Dr. Evans following -CT guided lung biopsy on 07/03/2018 and pathology pending still. Hypertensive emergency History of hypertension Peripheral arterial disease -Continue home enalapril 40 mg daily and amlodipine 10 mg daily, continue pravastatin 40 mg daily. metoprolol tartrate 50 mg twice daily Left adrenal mass 1.3 x 1.2 cm Colonic diverticulosis Right liver mass versus cyst Acute urinary retention - placed song 06/24 - discontinue song and do trial of void code: full code. dvt ppx: Lovenox. Discharge plan: will likely discharge to rehab and patient will follow up for biopsy results. based on results dr. rehman will decide recommendation by rad onc. Progress Note: Quality VTE Deep Vein Thrombosis/Pulmonary Embolism Present on Admission: No
--- NOTE | 2018-07-04 19:33 | P.CONREH ---
History of Present Illness Consult date: 07/04/18 Reason for Consult: Comprehensive rehabilitation evaluation Primary Care Provider: Luna Brown History of Present Illness: Za Pryor is a 78-year-old female admitted to [facility] 05/29/18 from [facility]. Patient presented to [facility] with decreased memory, hallucinations and worsening right arm tremor. Past medical history was significant for hypertension, peripheral arterial disease and previous vascular intervention/stent. She was found to have subacute intraventricular hemorrhage in the left lateral ventricle with focal thrombus with possible obstruction of the foramen of Bell. She was transferred to [facility] for neurosurgical evaluation. Systolic blood pressure 190-200 and she received Cardene infusion. Brain MRI showed: 2.3 x 1.7 cm mass within the body of the left lateral ventricle measuring 2.3 x 1.7 cm. The left lateral ventricle was prominent may be related to production of CSF from this mass. 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 This mass may have hemorrhaged causing the blood layering in the lateral ventricles. There is also a mass in the cerebellopontine angle on the left compressing upon the brainstem measuring 1.8 x 1.4 cm.3. 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 On 06/05/18 she underwent left frontal craniotomy with resection of intraventricular tumor. Postoperatively she was noted to have seizure which was treated with Keppra and Cerebyx. 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 Additional radiation treatment is planned. Additionally on 07/03/[address]-guided biopsy of lung lesion and is being followed by pulmonology. Review of Systems ROS Unobtainable: unobtainable due to mental status (Patient is not verbalizing) [facility] History History Provided By: Patient and Family Member Tobacco History Second Hand Smoke Exposure: No Tobacco Use In Past 30 Days: No Smoking Status: Former smoker Alcohol History How Often Do You Have a Drink Containing Alcohol: 4 or more times a week Substance Use History Substance History: No History of Abuse Travel History Recent Travel in the [place] Within the Last 8 Weeks: No Recent Travel Out of the Country Within the Last 8 Weeks: No Immunization History Tetanus Immunization: Unsure Hx Influenza Vaccine This Season: No Medications and Allergies Allergies Allergy/AdvReac Type Severity Reaction Status Date / Time No Known Allergies Allergy Verified 05/29/18 15:32 Home Medications Medication Instructions Recorded Confirmed Type clopidogrel 75 mg PO DAILY 05/29/18 05/29/18 History lisinopril 40 mg PO DAILY 05/29/18 05/29/18 History pravastatin 40 mg PO DAILY 05/29/18 05/29/18 History Active Medications: Active Medications Acetaminophen (Tylenol) 650 mg PO Q6H PRN PRN Reason: PAIN 1-10 AND/OR FEVER >101F Last Admin: 07/01/18 15:45 Dose: 650 mg Al Hydroxide/Mg Hydroxide (Milk Of Magnalexis Liq) 30 ml PO Q12H PRN PRN Reason: Mild Constipation Last Admin: 06/25/18 08:12 Dose: 30 ml Albuterol (Albuterol Neb (Prn)) 2.5 mg NEB Q2HR NEB PRN PRN Reason: DYSPNEA Last Admin: 06/19/18 17:27 Dose: 2.5 mg Amlodipine Besylate (Norvasc) 10 mg PO DAILY [facility] Last Admin: 07/04/18 09:54 Dose: 10 mg Artificial Tears (Tears Naturale Opth Drops) 1 drop EACH EYE Q8H [facility] Last Admin: 07/04/18 11:22 Dose: 1 drop Bisacodyl (Dulcolax Supp) 10 mg RECTAL DAILY PRN PRN Reason: SEVERE CONSITIPATION Last Admin: 06/26/18 08:30 Dose: 10 mg Budesonide/Formoterol Fumarate (Symbicort 160/4.5 Mcg Inh) 1 puff INH BID [facility] Last Admin: 07/04/18 09:55 Dose: 1 puff Clonidine HCl (Catapres) 0.1 mg PO Q8HR [facility] Last Admin: 07/04/18 14:07 Dose: Not Given Dexamethasone Sodium Phosphate (Decadron Inj) 4 mg IV.PUSH Q8HR [facility] Last Admin: 07/04/18 14:56 Dose: 4 mg Enoxaparin Sodium (Lovenox Inj) 40 mg SQ DAILY [facility] Last Admin: 07/04/18 09:55 Dose: 40 mg Lacosamide 50 mg/ Sodium (Chloride) 105 mls @ 105 mls/hr IV.SIG Q12H [facility] Last Infusion: 07/04/18 19:26 Dose: Infused Sodium Glycerophosphate 30 (mmol/ Sodium Chloride) 280 mls @ 42 mls/hr IV.SIG UNSCH PRN PRN Reason: For Phosphorus < 2.5 mg/dL Last Infusion: 06/09/18 06:45 Dose: Infused Levetiracetam 1,500 mg/ Sodium (Chloride) 115 mls @ 400 mls/hr IV.SIG Q12H [facility] Last Infusion: 07/04/18 16:14 Dose: Infused Fosphenytoin Sodium 200 mgpe/ (Sodium Chloride) 54 mls @ 216 mls/hr IV.SIG Q8HR [facility] Last Infusion: 07/04/18 16:14 Dose: Infused Lactulose (Lactulose Liq) 30 ml PO DAILY PRN PRN Reason: SEVERE CONSITIPATION Last Admin: 06/26/18 14:24 Dose: 30 ml Lisinopril (Prinivil) 40 mg PO DAILY [facility] Last Admin: 07/04/18 09:54 Dose: 40 mg Lorazepam (Ativan Inj) 1 mg IV.PUSH Q10M PRN PRN Reason: SEIZURES Last Admin: 06/13/18 12:48 Dose: 1 mg Methylphenidate HCl (Ritalin) 10 mg PO BID@0700,1200 [facility] Last Admin: 07/04/18 11:22 Dose: 10 mg Metoprolol Tartrate (Lopressor) 50 mg PO BID [facility] Last Admin: 07/04/18 09:54 Dose: 50 mg Padimate O (Chapstick) 1 applicatio TOPICAL UNSCH PRN PRN Reason: dry lips Last Admin: 06/25/18 08:14 Dose: 1 applicatio Pantoprazole Sodium (Protonix) 40 mg PO DAILY [facility] Last Admin: 07/04/18 09:54 Dose: 40 mg Pravastatin Sodium (Pravachol) 40 mg PO DAILY [facility] Last Admin: 07/04/18 09:54 Dose: 40 mg Senna/Docusate Sodium (Kate-Colace) 1 tab PO BID [facility] Last Admin: 07/04/18 09:54 Dose: 1 tab Sennosides (Senokot) 17.2 mg PO Q12H PRN PRN Reason: Moderate Constipation Last Admin: 06/25/18 08:12 Dose: 17.2 mg Sodium Chloride (Ns Flush) 2 ml IV.FLUSH PRN PRN PRN Reason: FLUSH AFTER USING IV ACCESS Last Admin: 06/24/18 05:24 Dose: 2 ml Sodium Chloride (Ns Flush) 2 ml IV.FLUSH BID [facility] Last Admin: 07/04/18 09:54 Dose: 2 ml Sodium Chloride (Sodium Chloride) 2 gm PO BID [facility] Last Admin: 07/04/18 09:54 Dose: 2 gm Exam Physical Examination Vital Signs / I&O: Vital Signs 07/03/18 20:08 07/03/18 21:06 07/03/18 23:42 Temperature 97.6 F 98.3 F 98.5 F Pulse Rate 85 80 91 H Respiratory Rate 18 18 18 Blood Pressure 164/71 H 167/72 H 163/72 H Pulse Oximetry 100 100 98 07/04/18 05:02 07/04/18 07:32 07/04/18 10:18 Temperature 98.0 F 97.9 F Pulse Rate 62 79 Respiratory Rate 18 18 Blood Pressure 139/64 158/71 H Pulse Oximetry 97 93 L 99 07/04/18 13:11 07/04/18 16:00 Temperature 97.6 F 98.0 F Pulse Rate 76 86 Respiratory Rate 20 18 Blood Pressure 106/54 L 162/67 H Pulse Oximetry 98 97 Intake & Output 07/04/18 07/04/18 07/05/18 06:59 18:59 06:59 Intake Total 373 / 373 274 / 274 105 / 105 Output Total 1200 / 1200 800 / 800 Balance -827 / -827 -526 / -526 105 / 105 Weight 57.9 kg Intake: IV 223 / 223 274 / 274 105 / 105 Cerebyx Inj 200 MGPE In NS Inj 108 / 108 54 / 54 50 ML @ 216 mls/hr IV.SIG Q8HR [facility] Rx#:[id number] Vimpat Inj 50 MG In NS Inj 100 105 / 105 105 / 105 ML @ 105 mls/hr IV.SIG Q12H [facility] Rx#:[id number] Keppra Inj 1,500 MG In NS Inj 115 / 115 115 / 115 100 ML @ 400 mls/hr IV.SIG Q12H [facility] Rx#:[id number] Oral 150 / 150 Output: Urine 1200 / 1200 800 / 800 Intake & Output 07/02/18 07/03/18 07/04/18 07/05/18 06:59 06:59 06:59 06:59 Intake Total 1557 / 1557 2602 / 2602 1247 / 1247 379 / 379 Output Total 2750 / 2750 975 / 975 3945 / 3945 800 / 800 Balance -1193 / -1193 1627 / 1627 -2698 / -2698 -421 / -421 Weight 62.5 kg 57.9 kg General: No acute distress and Other (Resting comfortably in bed; patient is not verbalizing; does not appear to be in any pain and no shortness of breath noted) Respiratory: Lungs CTA, BS equal and Symmetrical expansion Gastrointestinal: Positive bowel sounds, Non-distended and Non-tender Date of Last Bowel Movement: 06/28/18 Cardiovascular: Normal rate and Regular rhythm Skin: No rash Musculoskeletal: ROM (Within functional limits) Psychiatric: Other (No restlessness or agitation noted) Neurologic Orientation: unable to assess: Self, Place, Time and Situation Results Labs CBC & Chem 7: 07/04/18 07:47 07/04/18 07:47 Imaging Laboratory Results WBC 8.6 th/mm3 (4.0-11.0) 07/04/18 07:47 RBC 3.46 mil/mm3 (4.00-5.30) L 07/04/18 07:47 Hgb 12.0 gm/dL (11.6-15.3) 07/04/18 07:47 Hct 35.3 % (35.0-46.0) 07/04/18 07:47 MCV 102.2 fL (80.0-100.0) H 07/04/18 07:47 MCH 34.7 pg (27.0-34.0) H 07/04/18 07:47 MCHC 34.0 % (32.0-36.0) 07/04/18 07:47 RDW 16.0 % (11.6-17.2) 07/04/18 07:47 Plt Count 221 th/mm3 (150-450) D 07/04/18 07:47 MPV 7.8 fL (7.0-11.0) 07/04/18 07:47 Prelim Diff (Auto) Slide review pending 06/15/18 06:59 Neut % (Auto) 77.4 % (16.0-70.0) H 06/15/18 06:59 Lymph % (Auto) 13.0 % (9.0-44.0) 06/15/18 06:59 [place] % (Auto) 5.6 % (0.0-8.0) 06/15/18 06:59 Eos % (Auto) 3.1 % (0.0-4.0) 06/15/18 06:59 Baso % (Auto) 0.9 % (0.0-2.0) 06/15/18 06:59 Neut # (Auto) 7.8 th/mm3 (1.8-7.7) H 06/15/18 06:59 Lymph # (Auto) 1.3 th/mm3 (1.0-4.8) 06/15/18 06:59 [place] # (Auto) 0.6 th/mm3 (0.0-0.9) 06/15/18 06:59 Eos # (Auto) 0.3 th/mm3 (0.0-0.4) 06/15/18 06:59 Baso # (Auto) 0.1 th/mm3 (0.0-0.2) 06/15/18 06:59 WBC Differential . 06/15/18 06:59 Diff Scan Auto diff confirmed 06/15/18 06:59 Seg Neuts % (Manual) 73 % (16-70) H 06/13/18 04:03 Band Neuts % (Manual) 12 % (0-6) H 06/13/18 04:03 Lymphocytes % (Manual) 8 % (9-44) L 06/13/18 04:03 Monocytes % (Manual) 4 % (0-8) 06/13/18 04:03 Basophils % (Manual) 1 % (0-2) 06/11/18 03:20 Metamyelocytes % (Man) 2 % (0-1) H 06/12/18 08:51 Myelocytes % (Man) 3 % (0-0) H 06/13/18 04:03 Promyelocytes % (Man) 1 % (0-0) H 06/12/18 08:51 Abs Neuts (Manual) 12.3 th/mm3 (1.8-7.7) H 06/13/18 04:03 Differential Comment . 06/15/18 06:59 Toxic Granulation 1+ (None) H 06/15/18 06:59 Platelet Estimate Normal (Normal) 06/15/18 06:59 Platelet Morphology Clumped (Normal) H 06/15/18 06:59 Keratocytes Occ (None) H 06/08/18 05:48 Hematology Comments 06/20/18 04:53 PT 10.7 sec (9.8-11.6) 07/03/18 13:09 INR 1.1 Ratio 07/03/18 13:09 APTT 29.3 sec (23.4-31.7) 06/04/18 13:34 Plt Funct P2Y12 Units 77 PRU (194-418) L 06/01/18 09:40 Puncture Site Right radial 06/26/18 17:56 Patient Temperature 98.6 06/26/18 17:56 O2 Saturation 96 % (90-100) 06/26/18 17:56 ABG pH 7.45 (7.380-7.420) H 06/26/18 17:56 ABG pCO2 42 mmHg (38-42) 06/26/18 17:56 ABG pO2 113 mmHg (61-120) 06/26/18 17:56 ABG HCO3 29 mmol/L (22-26) H 06/26/18 17:56 ABG O2 Content 15.4 Vol % (12.0-20.0) 06/26/18 17:56 ABG Base Excess 4.9 mmol/L (-2-2) H 06/26/18 17:56 ABG Methemoglobin 1.4 % (0-2) 06/26/18 17:56 Pedro Pablo Test Present 06/26/18 17:56 Hemoglobin 11.3 G/DL (12.0-16.0) L 06/26/18 17:56 Carboxyhemoglobin 1.1 % (0-4) 06/26/18 17:56 O2 Delivery Device Nasal cannula 06/26/18 17:56 Liter Flow 2.00 L/M 06/26/18 17:56 Vent Setting Prvc/ac 06/11/18 18:49 Inspired O2 70 % 06/11/18 18:49 Critical Value No 06/26/18 17:56 Sodium 140 meq/L (136-145) 07/04/18 07:47 Potassium 3.7 meq/L (3.5-5.1) 07/04/18 07:47 Chloride 104 meq/L (98-107) 07/04/18 07:47 Carbon Dioxide 29.6 meq/L (21.0-32.0) 07/04/18 07:47 Anion Gap 6 meq/L (5-15) 07/04/18 07:47 BUN 6 mg/dL (7-18) L 07/04/18 07:47 Creatinine 0.28 mg/dL (0.50-1.00) L 07/04/18 07:47 Estimated GFR Greater than 89 mL/min (>89) 07/04/18 07:47 POC Glucose 127 mg/dl (68-110) H 06/26/18 17:57 Random Glucose 100 mg/dL (74-106) 07/04/18 07:47 Calcium 8.3 mg/dL (8.5-10.1) L 07/04/18 07:47 Calcium Adj for Albumin 8.8 mg/dL (8.5-10.1) 06/06/18 04:35 Phosphorus 3.7 mg/dL (2.5-4.9) 06/22/18 04:28 Magnesium 1.9 mg/dL (1.5-2.5) 07/04/18 07:47 Total Bilirubin 0.1 mg/dL (0.2-1.0) L 06/15/18 04:02 Direct Bilirubin 0.1 mg/dL (0.0-0.2) 06/15/18 04:02 Indirect Bilirubin 0.0 mg/dL (0.0-0.8) 06/15/18 04:02 AST 85 U/L (15-37) H 06/15/18 04:02 ALT 120 U/L (10-53) H 06/15/18 04:02 Alkaline Phosphatase 148 U/L (45-117) H 06/15/18 04:02 Total Protein 5.5 g/dL (6.4-8.2) L 06/15/18 04:02 Albumin 1.7 g/dL (3.4-5.0) L 06/15/18 04:02 Thiamine 355 nmol/L (70-180) H 05/30/18 19:34 Vitamin B12 1515 pg/mL (193-986) H 05/30/18 19:34 TSH 1.210 uIU/mL (0.358-3.740) 05/30/18 19:34 Thyroxine (T4) 6.3 mcg/dL (4.8-13.9) 05/30/18 19:34 Nasal Screen MRSA (PCR) Not detected (Negative) 05/29/18 14:47 Phenytoin 6.8 mcg/mL (10.0-20.0) L 06/18/18 05:25 Free Phenytoin 0.7 mg/L (1.0-2.0) L 06/09/18 13:06 Blood Type O Negative 06/03/18 12:14 Blood Type Recheck Required 06/03/18 12:14 Antibody Screen Negative 06/03/18 12:14 Impressions Abdomen/Pelvis CT 05/30/18 00:00 CONCLUSION: 1. 1.3 cm left adrenal mass. Findings are concerning for metastatic disease given findings of brain metastasis and lung mass. 2. 1.6 cm indeterminate low-density lesion in the posterior right lobe of the liver with numerous additional subcentimeter hypodense lesions which are too small to fully characterize. Although metastatic disease cannot be entirely excluded, suspect these reflect cysts. 3. Colonic diverticulosis without evidence for diverticulitis. 4. Otherwise, no additional definitive evidence for metastatic disease to the abdomen or pelvis. Chest CT 05/30/18 00:00 CONCLUSION: 1. 1.6 x 1.1 cm spiculated right upper lobe lung nodule concerning for metastasis or primary lung malignancy. 2. Additional 3 mm subpleural nodules in the superior segment of the left lower lobe are nonspecific. 3. Mild atelectasis/scarring at the right lung base with more prominent airspace consolidation at the left lung base. 4. 1.1 x 1.4 cm soft tissue density abnormality emanating from the inferior lateral margin of the right breast implant which may reflect a focal disruption. However, cannot exclude an adjacent breast mass. Correlation with patient's history and prior breast imaging is recommended. Head CTA 05/31/18 00:00 CONCLUSION: 1. There is no evidence for intracranial aneurysm or stenosis. 2. Intraventricular mass as previously described. 3. There is no evidence for mass at the cerebellopontine angle. The finding on the recent MRI was likely related to pulsation artifact in this region. . Head CT 06/26/18 18:07 CONCLUSION: 1. Encephalomalacia left frontal lobe. 2. Cerebral atrophy. 3. No midline shift or mass effect. 4. Very minimal hemorrhage left subdural space, much less prominent from previous study. . Head MRI 06/27/18 00:00 CONCLUSION: 1. Scattered blood products within the subarachnoid space bilaterally, intraparenchymal within the left frontal lobe, and within the left lateral ventricle all felt to be postoperative related. No acute hemorrhage seen. 2. Prior left frontotemporal craniotomy. 3. No residual mass seen within the left lateral ventricle. Lung Biopsy CT 07/03/18 00:00 CONCLUSION: 1. Uncomplicated CT guided biopsy. Chest X-Ray 07/03/18 16:53 CONCLUSION: No pneumothorax on the right. Assessment and Plan (1) Intraventricular hemorrhage, nontraumatic: Status: Acute Code(s): I61.5 - Nontraumatic intracerebral hemorrhage, intraventricular (2) Altered mental status: Status: Acute Code(s): R41.82 - Altered mental status, unspecified (3) History of hypertension: Status: Chronic Code(s): Z86.79 - Personal history of other diseases of the circulatory system (4) Right upper lobe pulmonary nodule: Status: Acute Code(s): R91.1 - Solitary pulmonary nodule (5) COPD (chronic obstructive pulmonary disease): Status: Acute Code(s): J44.9 - Chronic obstructive pulmonary disease, unspecified (6) Impaired mobility and ADLs: Status: Acute Code(s): Z74.09 - Other reduced mobility Plan Assessment: 1. Status post left frontal craniotomy 06/06/18 for resection of grade 1 pilocytic astrocytoma 2. Seizure 3. Lung lesion status post CT biopsy 07/03/18 4. Hypertension 5. Impaired mobility/ADL/communication Recommendations: 1. Physical therapy is mobilizing and patient now requires maximal assistance for sit to stand using standard. Would continue to mobilize out of bed as tolerated to prevent deconditioning 2. Occupational therapy is addressing ADLs and patient is now dependent 3. Speech therapy has evaluated swallow and patient tolerating pured diet with honey thick liquids 4. Case management is addressing discharge planning and agree with referrals for subacute/skilled care given current functional level as above 5. Will follow while hospitalized and is appropriate at discharge Thank you for this consult _ (1) Altered mental status Qualifiers: Altered mental status type: unspecified Coma depth: Coma timing: Qualified Code(s): R41.82 - Altered mental status, unspecified (2) COPD (chronic obstructive pulmonary disease) Qualifiers: COPD type: Chronic bronchitis type: Emphysema type:
[2018-07-05] MEDS: Artificial Tears Opth Drops 15 ML Bottle EACH EYE SCH (04:54)
[2018-07-05] MEDS: Fosphenytoin Inj 200 MGPE in Sodium Chlor 0.9% Inj 50 ML IV.SIG SCH (06:41)
[2018-07-05] MEDS: Lacosamide Inj 50 MG in Sodium Chlor 0.9% Inj 100 ML IV.SIG SCH (06:41)
[2018-07-05] MEDS: Metoprolol Tartrate 50 MG Tablet PO SCH (09:05)
[2018-07-05] MEDS: Enoxaparin Inj 40 MG/0.4 ML Syringe SQ SCH (09:05)
[2018-07-05] MEDS: amLODIPine 5 MG Tablet PO SCH (09:06)
[2018-07-05] MEDS: Sodium Chloride 1 GM Tablet PO SCH (09:06)
[2018-07-05] MEDS: Lisinopril 20 MG Tablet PO SCH (09:07)
[2018-07-05] MEDS: Budesonide-Formoterol 160/4.5 MCG 6 GM Inhaler INH SCH (09:08)
[2018-07-05 09:10] VITALS: RESP 20
[2018-07-05] MEDS: Senna/Docusate Sodium 8.6/50 MG Tablet PO SCH (09:42)
[2018-07-05] MEDS: levETIRAcetam Inj 1,500 MG in Sodium Chlor 0.9% Inj 100 ML IV.SIG SCH (12:39)
[2018-07-05 12:40] VITALS: BP 115/58; PULSE 71; TEMP 97.7
[2018-07-05 12:41] VITALS: O2SAT 95
--- NOTE | 2018-07-05 16:57 | P.DS ---
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 Notified:: Office Spoke with:: Lizz Date Notified:: 05/31/18 Time Notified:: 13:29 Ordering Provider: DIAMOND 06/11/18 08:41 HUB Only Consult Order Routine Consulting Provider: [facility] Reason for Consultation: LTAC referral 06/19/18 09:47 Consult to Radiation Oncology Routine Consulting Provider: Catarino Clemons Preferred Advanced Quality Engineer:: Catarino Clemons Reason for Consultation: PILOCYTIC ASTROCYTOMA Notified:: Office Spoke with:: Elli Date Notified:: 06/19/18 Time Notified:: 10:07 Ordering Provider: SHANELL 06/20/18 12:46 Consult to Oncology Routine Consulting Provider: Sis Kapadia Preferred Advanced Quality Engineer:: Sis Kapadia Reason for Consultation: 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 Notified:: Service Spoke with:: Loraine Date Notified:: 06/21/18 Time Notified:: 16:33 Ordering Provider: SOPHIE 06/22/18 16:04 Consult to Hospitalist Routine Consulting Provider: Nick Segal Reason for Consultation: s/p removal brain tumor Notified:: Service Spoke with:: sajan Date Notified:: 06/22/18 Time Notified:: 16:15 Comments:: Ordering Provider: SOPHIE 06/27/18 13:59 Consult to Palliative Care Routine Consulting Provider: Elis Cardona Reason for Consultation: Pt is s/p left frontal craniotomy for intraventricular hemorrhagic mass by neurosurgery. Severely diminished communication skills. Would benefit from palliative input for now or future need. Notified:: Service Spoke with:: GATO Date Notified:: 06/27/18 Time Notified:: 14:06 Ordering Provider: LINO 06/28/18 10:31 Consult to ENT Routine Consulting Provider: Arturo Rabago Reason for Consultation: laryngoscopy for vocal cord dysfunction Notified:: Office Spoke with:: Rajni Date Notified:: 06/28/18 Time Notified:: 10:42 Ordering Provider: SHANELL 07/03/18 14:57 HUB Only Consult Order Routine Consulting Provider: [facility] [employer] Reason for Consultation: snf Notified:: Office Spoke with:: MURIEL Date Notified:: 07/03/18 Time:: 14:57 07/03/18 15:53 Consult to Rehab Medicine Routine Consulting Provider: Sima Harris Reason for Consultation: [facility] consideration Simi David ( spelling may be off) Notified:: Service Spoke with:: cristi Date Notified:: 07/03/18 Time Notified:: 15:57 Ordering Provider: MIKALA Brief History from admission: Patient is a 78-year-old female with past medical history significant for hypertension, peripheral arterial disease, history of vascular intervention/ stenting, arthritis who presented to the [facility] with mostly nonspecific complaints of memory loss and hallucinations for 1 week and worsening tremors of the right arm. Further workup in the emergency department showed subacute intraventricular hemorrhage into the left lateral ventricle and a focal thrombus that may be obstructing foramina of [place]. There was enlargement of the left lateral ventricle compared to the prior MRI. Also trace blood in the occipital horn of left lateral ventricle. With evidence of intraventricular hemorrhage patient was transferred emergently to [facility] for neurosurgery consult. I evaluated the patient after arrival to the ICU. Patient is profoundly hypertensive systolic blood pressure 190-200. IV labetalol 20 mg IV push given followed by Cardene infusion started. On exam patient did not appear to be in distress. No definite focal deficit however patient is oriented only to person. Reviewed CT scan with neurosurgery Dr. Palacios. On his review CT shows 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 hemorrhagic mass at foramen of Bell with asymmetric left sided ventricular dilatation. Stat MRI of the brain with and without contrast ordered. Started on Cardene infusion with target systolic blood pressure less than 140 DS: Summary 78-year-old white female was transferred from [facility] with 1 week history of memory loss hallucination and 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 Patient seen by neurosurgery and oncologist Dr. Kapadia (recommended no chemo and refer to radiation oncology). CT chest showed right upper lung nodule or primary lung malignancy along with CT of the abdomen pelvis revealed 1.3 cm left adrenal mass, liver mass. 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 -Dr. Clemons has been consulted and on discharge recommends close follow up in office with appointment set for july to determine if patient will need XRT. -EEG originally negative for seizures but repeat EEG 06/06 field possible left frontal breakthrough. -MRA 06/06 brain revealed left lateral ventricle resection, intervertebral hemorrhage slightly decreased. Small subdural hematoma. Rightward shift 5 mm. - discharge on dilantin 150mg q8h, levetiracetam 1500 mg BID, lacosamide 50 mg twice daily - steroid tapering: dexamthasone 2mg BId x 3 days and 2mg qD x 3 days and stop. protonix while on steroids - case discussed with Dr. clemons and their service will follow up in 1-2 week after pathology from lung returns to determine additional recommendation. Acute hypoxic and hypercarbic respiratory failure-now extubated and on nasal cannula 2 L oxygen Previous tobacco use Right upper lobe mass HCAP ventilator associated pneumonia - symbicort and duoneb outpatient -Pulmonary Dr. Evans following and cleared for discharge -CT guided lung biopsy on 07/03/2018 and pathology pending still. patient to follow up pulmonary in 2 weeks Hypertensive emergency History of hypertension Peripheral arterial disease -Continue home enalapril 40 mg daily and amlodipine 10 mg daily, continue pravastatin 40 mg daily. metoprolol tartrate 50 mg twice daily dispo: rehab. outpatient follow up neurosurgery in3 months, rad onc in july, pulmonary in 2 weeks. taper steroids as instructed and stop. plan discussed with family at bedside. Time Spent with Patient Total time spent providing and/or coordinating discharge services: > 1hr 78-year-old white female was transferred from [facility] with 1 week history of memory loss hallucination and 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 Patient seen by neurosurgery and oncologist Dr. Kapadia (recommended no chemo and refer to radiation oncology). CT chest showed right upper lung nodule or primary lung malignancy along with CT of the abdomen pelvis revealed 1.3 cm left adrenal mass, liver mass. 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 -Dr. Clemons has been consulted and on discharge recommends close follow up in office with appointment set for july to determine if patient will need XRT. -EEG originally negative for seizures but repeat EEG 06/06 field possible left frontal breakthrough. -MRA 06/06 brain revealed left lateral ventricle resection, intervertebral hemorrhage slightly decreased. Small subdural hematoma. Rightward shift 5 mm. - discharge on dilantin 150mg q8h, levetiracetam 1500 mg BID, lacosamide 50 mg twice daily - steroid tapering: dexamthasone 2mg BId x 3 days and 2mg qD x 3 days and stop. protonix while on steroids - case discussed with Dr. clemons and their service will follow up in 1-2 week after pathology from lung returns to determine additional recommendation. Acute hypoxic and hypercarbic respiratory failure-now extubated and on nasal cannula 2 L oxygen Previous tobacco use Right upper lobe mass HCAP ventilator associated pneumonia - symbicort and duoneb outpatient -Pulmonary Dr. Evans following and cleared for discharge -CT guided lung biopsy on 07/03/2018 and pathology pending still. patient to follow up pulmonary in 2 weeks Hypertensive emergency History of hypertension Peripheral arterial disease -Continue home enalapril 40 mg daily and amlodipine 10 mg daily, continue pravastatin 40 mg daily. metoprolol tartrate 50 mg twice daily dispo: rehab. outpatient follow up neurosurgery in3 months, rad onc in july, pulmonary in 2 weeks. taper steroids as instructed and stop. plan discussed with family at bedside. Quality: VTE Deep Vein Thrombosis/Pulmonary Embolism Present on Admission: No Results Impressions ITS Impressions Abdomen/Pelvis CT 05/30/18 00:00 CONCLUSION: 1. 1.3 cm left adrenal mass. Findings are concerning for metastatic disease given findings of brain metastasis and lung mass. 2. 1.6 cm indeterminate low-density lesion in the posterior right lobe of the liver with numerous additional subcentimeter hypodense lesions which are too small to fully characterize. Although metastatic disease cannot be entirely excluded, suspect these reflect cysts. 3. Colonic diverticulosis without evidence for diverticulitis. 4. Otherwise, no additional definitive evidence for metastatic disease to the abdomen or pelvis. Chest CT 05/30/18 00:00 CONCLUSION: 1. 1.6 x 1.1 cm spiculated right upper lobe lung nodule concerning for metastasis or primary lung malignancy. 2. Additional 3 mm subpleural nodules in the superior segment of the left lower lobe are nonspecific. 3. Mild atelectasis/scarring at the right lung base with more prominent airspace consolidation at the left lung base. 4. 1.1 x 1.4 cm soft tissue density abnormality emanating from the inferior lateral margin of the right breast implant which may reflect a focal disruption. However, cannot exclude an adjacent breast mass. Correlation with patient's history and prior breast imaging is recommended. Head CTA 05/31/18 00:00 CONCLUSION: 1. There is no evidence for intracranial aneurysm or stenosis. 2. Intraventricular mass as previously described. 3. There is no evidence for mass at the cerebellopontine angle. The finding on the recent MRI was likely related to pulsation artifact in this region. . Head CT 06/26/18 18:07 CONCLUSION: 1. Encephalomalacia left frontal lobe. 2. Cerebral atrophy. 3. No midline shift or mass effect. 4. Very minimal hemorrhage left subdural space, much less prominent from previous study. . Head MRI 06/27/18 00:00 CONCLUSION: 1. Scattered blood products within the subarachnoid space bilaterally, intraparenchymal within the left frontal lobe, and within the left lateral ventricle all felt to be postoperative related. No acute hemorrhage seen. 2. Prior left frontotemporal craniotomy. 3. No residual mass seen within the left lateral ventricle. Lung Biopsy CT 07/03/18 00:00 CONCLUSION: 1. Uncomplicated CT guided biopsy. Chest X-Ray 07/03/18 16:53 CONCLUSION: No pneumothorax on the right. Discharge Plan Discharge Disposition Patient Disposition: Discharge to SNF Discharge Order Discharge Orders: Discharge Order (Routine); Ordered 07/05/18 Ordered By: Enoch Pryor Discharge Details Anticipated Discharge Date: 07/05/18 Discharge Comment: [facility] [place] [facility] Attending Provider: Enoch Pryor Other Providers: Daren Valencia ; Sis Kapadia ; Kaiser Evans V ; [facility] ; Catarino Clemons ; Elis Cardona ; Arturo Rabago ; [employer] [facility] ; Sima Harris Rxs /Orders / Referrals /Forms Prescriptions: New amlodipine [Norvasc] 5 mg Tablet 10 mg PO DAILY 30 Days Qty: 60 RF: 0 metoprolol tartrate 50 mg Tablet 50 mg PO BID 30 Days Qty: 60 RF: 0 levetiracetam [Keppra] 750 mg tablet 1,500 mg PO Q12H 30 Days Qty: 120 RF: 0 dexamethasone 2 mg tablet 2 mg PO BID 6 Days Qty: 9 RF: 0 methylphenidate HCl [Ritalin] 10 mg Tablet 10 mg PO BID@0700,1200 15 Days Qty: 30 RF: 0 pantoprazole 40 mg Tablet,Delayed Release (Dr/Ec) 40 mg PO DAILY 7 Days Qty: 7 RF: 0 budesonide-formoterol [Symbicort] 160-4.5 mcg/actuation Hfa Aerosol Inhaler 1 puff Inhalation BID 30 Days Qty: 10.2 RF: 0 albuterol sulfate 2.5 mg /3 mL (0.083 %) Solution For Nebulization 2.5 mg NEB Q2HR NEB PRN (Reason: Dyspnea) 14 Days Qty: 3 RF: 0 lacosamide 50 mg tablet 50 mg PO Q12H 7 Days Qty: 14 RF: 0 phenytoin sodium extended [Dilantin Extended] 100 mg capsule 150 mg PO Q8H 30 Days Qty: 135 RF: 0 Continue pravastatin 40 mg Tablet 40 mg PO DAILY RF: 0 clopidogrel 75 mg Tablet 75 mg PO DAILY RF: 0 lisinopril 40 mg Tablet 40 mg PO DAILY RF: 0 Discontinued amlodipine 5 mg Tablet 5 mg PO DAILY RF: 0 Referrals: Luna Brown [Other] - See Instructions Catarino Clemons MD [Physician] - See Instructions (July 16, 2018 3pm Patient should arrive 1hr prior to appt time. For consideration moving forward regating XRT which for now is not planned. Case reviewed with neurosurgery and also agree to hold off radiation therapy for now and follow up case at a later date.) Kaiser Evans MD [Physician] - See Instructions (Call for appointment within 7 days for results of CT guided LUNG biopsy result. Follow up in 2 weeks ) Duke Palacios MD [Physician] - See Instructions (Please call for appointment in 3 months to monitor astrocytoma and decide on further intervention. At this time conservative management recommended and no radiation therapy. Will need to follow up appointment Dr. Clemons in July as well. Continue to taper dexamethasone and discontinue) Discharge Instructions Patient Printed Instructions: Craniotomy for Tumor Resection (DC) Additional Instructions: follow up pulmonary in 2 weeks follow up neuroSx in [address] clemons radiation onc in july taper dexamethasone 2mg BID x 3 days and then 2mg qD x 3 days then stop. continue protonix while on steroids for GI protection No planned radiation right now as per neuroSx discussion continue seizure medication until follow up with neuroSx and consider tapering at that time. continue for now Discharge Information Discharge Date/Time: 07/05/18 15:01 [address]charge Location: [facility]
== END 2018-07-05 15:01 | DRG 23 ==
LOC: N03 15:04 → N05 06-22 16:54
PROVIDERS: ADMIT Internal Medicine; ATTEND Internal Medicine
DX: Y95 Nosocomial condition; G93.41 Metabolic encephalopathy; C79.72 Secondary malignant neoplasm of left adrenal gland; J95.851 Ventilator associated pneumonia; N63.0 Unspecified lump in unspecified breast; Z99.11 Dependence on respirator [ventilator] status; Z87.891 Personal history of nicotine dependence; R13.12 Dysphagia, oropharyngeal phase; Y84.8 Other medical procedures as the cause of abnormal reaction of the patient, or of later complication, without mention of misadventure at the time of the procedure; Z78.1 Physical restraint status; G91.9 Hydrocephalus, unspecified; R33.9 Retention of urine, unspecified; Z79.51 Long term (current) use of inhaled steroids; M62.50 Muscle wasting and atrophy, not elsewhere classified, unspecified site; I61.5 Nontraumatic intracerebral hemorrhage, intraventricular; Z79.899 Other long term (current) drug therapy; E87.6 Hypokalemia; M19.90 Unspecified osteoarthritis, unspecified site; I10 Essential (primary) hypertension; J96.02 Acute respiratory failure with hypercapnia; Z79.02 Long term (current) use of antithrombotics/antiplatelets; C34.11 Malignant neoplasm of upper lobe, right bronchus or lung; D75.89 Other specified diseases of blood and blood-forming organs; F10.239 Alcohol dependence with withdrawal, unspecified; K76.9 Liver disease, unspecified; I16.1 Hypertensive emergency; G93.5 Compression of brain; Z95.820 Peripheral vascular angioplasty status with implants and grafts; E83.39 Other disorders of phosphorus metabolism; J96.01 Acute respiratory failure with hypoxia; I73.9 Peripheral vascular disease, unspecified; J15.4 Pneumonia due to other streptococci; I25.10 Atherosclerotic heart disease of native coronary artery without angina pectoris; Z86.79 Personal history of other diseases of the circulatory system; G81.91 Hemiplegia, unspecified affecting right dominant side; Z95.5 Presence of coronary angioplasty implant and graft; J44.0 Chronic obstructive pulmonary disease with (acute) lower respiratory infection; R56.9 Unspecified convulsions; Z98.82 Breast implant status; K57.30 Diverticulosis of large intestine without perforation or abscess without bleeding; R44.3 Hallucinations, unspecified; D63.0 Anemia in neoplastic disease; C79.31 Secondary malignant neoplasm of brain; J15.6 Pneumonia due to other Gram-negative bacteria
CPT/HCPCS: 31500; 32405; 36600; 51798; 70450; 70496; 70553; 71010; 71045; 71260; 74177; 76360; 76937; 77012; 80048; 80053; 80076; 80185; 80186; 82040; 82607; 82805; 82948; 82962; 83735; 84100; 84132; 84295; 84425; 84436; 84443; 85025; 85027; 85576; 85610; 85730; 86850; 86900; 86901; 87040; 87070; 87077; 87186; 87205; 87641; 88305; 88307; 88331; 88341; 88342; 88343; 92526; 92610; 93005; 94002; 94003; 94150; 94640; 94656; 94657; 94664; 94665; 95819; 97110; 97112; 97162; 97164; 97166; 97530; 97535; 99145; 99152; 99153; A9585; C1713; C9113; C9238; C9248; C9254; G0195; G0461; G0462; J0131; J0360; J0690; J0696; J1100; J1630; J1650; J1940; J1953; J2060; J2150; J2250; J2270; J2370; J2405; J2543; J2560; J2704; J2710; J2920; J3010; J3411; J3475; J3480; J7030; J7040; J7050; J7506; J7512; Q2009; Q9967